=== PATIENT | female | born 1935 | race Caucasian/White ===

== ENCOUNTER 2017-08-20 06:52 | Inpatient (IN) | payer MEDICARE, OTHER ==
[2017-08-20 07:12] VITALS: BMI 29.6
[2017-08-20] MEDS ORDERED: methylPREDNISolone NA SUCC 125 MG/2 ML VIAL IVPUSH ONE (07:56)
[2017-08-20] MEDS: ALBUTEROL SO4 2.5/IPRATROPIUM 0.5 INH SOL 3 ML VIAL.NEB. NEB SCH ×4 (08:00→08:45)
[2017-08-20] MEDS ORDERED: methylPREDNISolone NA SUCC 125 MG/2 ML VIAL ONE (08:08)
[2017-08-20] MEDS ORDERED: ALBUTEROL SO4 2.5/IPRATROPIUM 0.5 INH SOL 3 ML VIAL.NEB. NEB ONE (08:08)
--- NOTE | 2017-08-20 08:17 | PDOC ---
History of Present Illness - General Chief Complaint: Pain, Acute Stated Complaint: ABD PAIN/URINARY PROBLEM Time Seen by Provider: 08/20/17 07:40 History Source: Patient, Family (daughter), Old Records Exam Limitations: No Limitations - History of Present Illness Initial Comments: 08/20/17 08:17 This is an 82-year-old woman with past medical history of hypertension, hyperlipidemia, CAD status post CABG 3, and NIDDM, CVA, CHF who presents to emergency department with 3 days of dysuria, body aches and moist nonproductive cough. Patient reports pleuritic chest pain while coughing and states increasing shortness of breath over the past 3 days. Patient denies headaches, dizziness, fevers, chills, sore throat, abdominal pain, nausea, vomiting, hematuria, rectal bleeding, vaginal bleeding, vaginal discharge. She denies any abdominal bloating, decrease in exercise tolerance, decrease in ability to walk up stairs or inclines or changes in weight. Past History - Past Medical History Allergies/Adverse Reactions: Allergies Allergy/AdvReac Type Severity Reaction Status Date / Time No Known Drug Allergies Allergy Verified 08/20/17 07:07 Home Medications: Ambulatory Orders Atorvastatin Ca [Lipitor] 20 mg PO HS 04/07/12 Calcium Carbonate/Vitamin D3 [Calcium 600-Vit D3 200 Tablet] 1 each PO DAILY 07/05 Multivitamin [Multivitamins] 1 each PO DAILY 04/07/12 Carvedilol [Coreg] 12.5 mg PO BID 11/08/12 Gabapentin [Neurontin -] 600 mg PO TID 11/08/12 Insulin Lispro [Humalog] 40 unit SQ BID 11/08/12 Ramipril [Altace] 5 mg PO DAILY 11/08/12 Ranolazine [Ranexa -] 500 mg PO BID 11/08/12 Timolol 0.5% [Timoptic] 1 drop OU BID 11/08/12 Nitroglycerin Sublingual [Nitrostat -] 0.4 mg SL PRN PRN 08/30/14 Omeprazole [Prilosec (RX)] 40 mg PO DAILY 08/30/14 Acetaminophen [Tylenol .Regular Strength -] 325 mg PO Q6H PRN #0 tablet Docusate Sodium [Colace -] 300 mg PO HS #0 capsule 09/01/14 Polyethylene Glycol 3350 [Miralax 119 gm Btl -] 17 gm PO BID #0 bottle 09/01/14 Furosemide [Lasix -] 20 mg PO DAILY 10/24/14 Levothyroxine [Synthroid -] 100 mcg PO DAILY@0700 10/24/14 Lipase/Protease/Amylase [Zacharyon Dr 36,000 Units Capsule] 1 each PO TID 10/24/14 Thera Iron Tab 1 tab PO DAILY 10/24/14 Anemia: No Asthma: No Cancer: No Cardiac Disorders: Yes CVA: Yes COPD: No CHF: Yes DVT: No Dementia: No Diabetes: Yes GI Disorders: Yes (Ulcers) Disorders: (ulcers) HTN: Yes Hypercholesterolemia: Yes Liver Disease: No Seizures: No Thyroid Disease: No - Surgical History Abdominal Surgery: No Appendectomy: No Cardiac Surgery: Yes (tripple bipass) Cholecystectomy: No Lung Surgery: No Neurologic Surgery: No Orthopedic Surgery: Yes (RT ELBOW SX) - Immunization History Immunization Up to Date: No - Suicide/Smoking/Psychosocial Hx Smoking Status: No Smoking History: Never smoked Have you smoked in the past 12 months: No Number of Cigarettes Smoked Daily: 0 Information on smoking cessation initiated: No Hx Alcohol Use: No Drug/Substance Use Hx: No Substance Use Type: None Hx Substance Use Treatment: No Respiratory Specific PMHX - Complaint Specific PMHX Angina: Yes Review of Systems - Review of Systems Able to Perform ROS?: Yes Is the patient limited British proficient: Yes Constitutional: No: Symptoms Reported HEENTM: No: Symptoms Reported Respiratory: Yes: See HPI Cardiac (ROS): No: Symptoms Reported ABD/GI: No: Symptoms Reported : Yes: See HPI Musculoskeletal: No: Symptoms Reported Integumentary: No: Symptoms Reported Neurological: No: Symptoms reported Endocrine: No: Symptoms Reported Hematologic/Lymphatic: No: Symptoms Reported *Physical Exam - Vital Signs Last Vital Signs Temp Pulse Resp BP Pulse Ox 98.1 F 71 22 148/68 94 L 08/20/17 07:07 08/20/17 07:07 08/20/17 07:07 08/20/17 07:07 08/20/17 07:07 - Physical Exam General Appearance: Yes: Appropriately Dressed. No: Apparent Distress HEENT: positive: Normal ENT Inspection Neck: positive: Trachea midline, Supple Respiratory/Chest: positive: Wheezing (Inspirational). negative: Chest Tender, Respiratory Distress, Accessory Muscle Use Cardiovascular: positive: Regular Rhythm, Regular Rate, S1, S2. negative: Murmur Gastrointestinal/Abdominal: positive: Normal Bowel Sounds, Soft. negative: Tender Musculoskeletal: positive: Normal Inspection. negative: CVA Tenderness Extremity: positive: Normal Capillary Refill, Normal Inspection Integumentary: positive: Normal Color, Dry, Warm Neurologic: positive: Fully Oriented, Alert, Normal Mood/Affect, Normal Response , Motor Strength 5/5 Heart Score/ECG Review - History History: Slightly suspicious - Electrocardiogram EKG: Non specific repolarization disturbance - Age Age: >/= 65 - Risk Factors Risk Factors Heart Score: Yes Hx Hypercholesterolemia, Yes Hx Hypertension, Yes Hx Diabetes Based on the list above the patient has:: >/=3 risk factors or Hx atherosclerotic disease - Troponin Troponin: </= normal limit - Score Heart Score - Total: 5 - ECG Intrepretation Rhythm: Regular Rhythm - ST and T Non Specific ST-T Wave changes: Yes - ECG Impressions Normal ECG: No Non-specific ST Elevation: No Ischemic Changes: No ED Treatment Course - LABORATORY CBC & Chemistry Diagram: 08/20/17 08:30 08/20/17 08:30 - RADIOLOGY Radiology Studies Ordered: Category Date Time Status CHEST PA & LAT [RAD] Stat Radiology 08/20/17 07:55 Ordered Medical Decision Making - Medical Decision Making 08/20/17 08:21 CC: 3 days of dysuria, productive cough and pleuritic chest pain A/P: 82-year-old female with history of hypertension, hyperlipidemia, CAD status post triple-vessel CABG, NIDDM, CVA, CHF with 3 days of dysuria productive cough and pleuritic chest pain. Oropharynx clear without erythema or exudates. Speaking full sentences. Respirations even and unlabored. Lungs with diffuse inspiratory wheezes present. RRR. S1 and S2 present. No murmur, rub or gallop auscultated. Obese abdomen soft nontender nondistended. Differential diagnoses include UTI; CHF exacerbation, bronchitis, upper respiratory infection, pneumonia, ACS, PE PE is less likely with a well score of 0 Cardiac monitoring, IV, labs, methylprednisone, DuoNeb's, EKG, chest x-ray 08/20/17 10:20 Chest x-ray as read by Dr. Plascencia: Since prior chest x-ray dated 10/11/14, clinic silhouette remains borderline sized to slightly enlarged. Increased interstitial and airspace opacities, left more than right suggestive of pulmonary venous congestion plus or minus pneumonic infiltrates. Status post CABG. Increased sediment visualized osseous structures appear intact. Impression: Interval increased interstitial and airspace opacities, left more than right suggestive of pulmonary venous congestion plus or minus pneumonia. Close follow-up as needed. Patient continues to feel short of breath. Labs are notable for elevated BNP and mildly elevated white count and Corrected sodium of 132. Lasix 40 mg IV push now Rocephin 1g IV Zithromax 500mg IV Will Admit to hospitalist service *DC/Admit/Observation/Transfer Diagnosis at time of Disposition: UTI (urinary tract infection) Qualifiers: Urinary tract infection type: site unspecified Hematuria presence: without hematuria Qualified Code(s): N39.0 - Urinary tract infection, site not specified CHF exacerbation Qualifiers: Heart failure type: unspecified Qualified Code(s): I50.9 - Heart failure, unspecified - Discharge Dispostion Condition at time of disposition: Guarded Admit: Yes - Referrals Referrals: Luz Kaur MD [Primary Care Provider] - - Patient Instructions - Post Discharge Activity
[2017-08-20 08:41] LABS: BASO % 0.7 % (0-2.0); EOS % 2.4 % (0-4.5); HEMATOCRIT 37.2 % (32.4-45.2); HEMOGLOBIN 12.4 GM/dL (10.7-15.3); LYMPH % 16.5 % (8-40); MCH 29.7 pg (25.7-33.7); MCHC 33.2 g/dl (32.0-36.0); MEAN CELL VOLUME 89.5 fl (80-96); MEAN PLT VOLUME 8.9 fl (7.5-11.1); MONO % 9.8 % (3.8-10.2); NEUT % 70.6 % (42.8-82.8); PLATELET COUNT 234 K/MM3 (134-434); RBC 4.16 M/mm3 (3.60-5.2); RDW 14.1 % (11.6-15.6); WHITE BLOOD COUNT 13.5 K/mm3 (4.0-10.0)
[2017-08-20 08:52] LABS: INR 1.03 (0.82-1.09); PROTHROMBIN TIME (PATIENT) 11.6 SEC (9.98-11.88)
[2017-08-20 09:14] LABS: ALBUMIN 3.6 g/dl (3.4-5.0); ANION GAP 7 (8-16); BILIRUBIN,TOTAL 0.5 mg/dL (0.2-1.0); BLOOD UREA NITROGEN 21 mg/dL (7-18); CALCIUM 8.6 mg/dL (8.5-10.1); CHLORIDE 94 mmol/L (98-107); CO2 26 mmol/L (21-32); CREATININE 1.1 mg/dL (0.55-1.02); GLUCOSE,RANDOM 295 mg/dL (74-106); SGPT/ALT 19 U/L (12-78); SODIUM 127 mmol/L (136-145)
[2017-08-20 09:18] LABS: ALK PHOS 160 U/L (45-117); N-TERMINAL BNP 3042.66 pg/ml (5-450); TOT PROT 7.9 g/dl (6.4-8.2)
[2017-08-20 09:24] LABS: MAGNESIUM 2.2 mg/dL (1.8-2.4); SGOT/AST 20 U/L (15-37)
[2017-08-20 09:40] LABS: URINE APPEARANCE SLCLOUDY; URINE BILIRUBIN NEGATIVE (<2.0 mg/dL); URINE BLOOD 3+ (NEGATIVE); URINE COLOR STRAW; URINE GLUCOSE (UA) 3+ (NEGATIVE); URINE KETONE NEGATIVE (NEGATIVE); URINE NITRITE NEGATIVE (NEGATIVE); URINE PROTEIN NEGATIVE (NEGATIVE); URINE UROBILINOGEN NEGATIVE mg/dL (0.2-1.0)
--- NOTE | 2017-08-20 09:52 | EKG ---
Test Reason : Blood Pressure : / mmHG Vent. Rate : 078 BPM Atrial Rate : 078 BPM P-R Int : 170 ms QRS Dur : 090 ms QT Int : 400 ms P-R-T Axes : 061 050 104 degrees QTc Int : 456 ms NORMAL SINUS RHYTHM ABNORMAL ECG WHEN COMPARED WITH ECG OF 27-SEP-2014 21:13, VENT. RATE HAS INCREASED BY 26 BPM Confirmed by MARIVEL LOPEZ MD ([id number]) on 08/20/2017 9:52:06 AM Referred By: Confirmed By:MARIVEL LOPEZ MD
[2017-08-20] MEDS ORDERED: FUROSEMIDE 40 MG/4 ML INJECTABLE VIAL IVPUSH ONE (10:06)
[2017-08-20] MEDS ORDERED: AZITHROMYCIN IVPB 500 MG in DEXTROSE 5%-WATER - 250 ML IVPB ONE (10:08)
[2017-08-20] MEDS ORDERED: CEFTRIAXONE 1 GM in DEXTROSE 5%-WATER - 100 ML IVPB ONE (10:08)
[2017-08-20] MEDS ORDERED: AZITHROMYCIN IVPB 250 ML IVPB ONE (10:24)
[2017-08-20] MEDS ORDERED: CEFTRIAXONE 1 GM/50 ML BAG ONE (10:24)
[2017-08-20 10:25] LABS: URINE LEUK ESTERASE 3+ (NEGATIVE)
[2017-08-20] MEDS ORDERED: FUROSEMIDE 40 MG/4 ML INJECTABLE VIAL ONE (10:25)
[2017-08-20 10:30] LABS: EPI CELLS RARE /HPF (FEW); URINE BACTERIA MODERATE /hpf (NONE SEEN)
--- NOTE | 2017-08-20 10:35 | HP ---
CHIEF COMPLAINT: Dysuria PCP: Dr. Diaz HISTORY OF PRESENT ILLNESS: 82 year-old female with a PMH significant for HTN, HLD, CAD s/p CABG x 3 (2004) , systolic heart failure, CVA, IDDM, diabetic polyneuropathy, and hypothyroidism. Brought to the ED by her daughter for complaint of dysuria, body aches, cough and cold sweats x 3 days. Also with worsening of her chronic SOB and fatigue. ER course was notable for: (1) WBC 13.5, afebrile (2) CXR: interstitial and airspace opacities L>R, venous congestion v. pneumonia (3) UA 3+leuks, 277 WBCs (4) BNP 3042 (5) Na 127 Recent Travel: No PAST MEDICAL HISTORY: Hypertension Hyperlipidemia Coronary artery disease Systolic heart failure CVA IDDM Diabetic polyneuropathy Hypothyroidism PAST SURGICAL HISTORY: CABG 3v (2004) Social History: Smoking: no Alcohol: no Drugs: no Family History: Allergies No Known Drug Allergies Allergy (Verified 08/20/17 07:07) HOME MEDICATIONS: Home Medications Medication Instructions Recorded Atorvastatin Ca [Lipitor] 20 mg PO HS 04/07/12 Calcium Carbonate/Vitamin D3 1 each PO DAILY 04/07/12 [Calcium 600-Vit D3 200 Tablet] Multivitamin [Multivitamins] 1 each PO DAILY 04/07/12 Carvedilol [Coreg] 12.5 mg PO BID 11/08/12 Gabapentin [Neurontin -] 600 mg PO TID 11/08/12 Insulin Lispro [Humalog] 40 unit SQ BID 11/08/12 Ramipril [Altace] 5 mg PO DAILY 11/08/12 Ranolazine [Ranexa -] 500 mg PO BID 11/08/12 Timolol 0.5% [Timoptic] 1 drop OU BID 11/08/12 Nitroglycerin Sublingual 0.4 mg SL PRN PRN 08/30/14 [Nitrostat -] Omeprazole [Prilosec (RX)] 40 mg PO DAILY 08/30/14 Acetaminophen [Tylenol .Regular 325 mg PO Q6H PRN #0 tablet 09/01/14 Strength -] Docusate Sodium [Colace -] 300 mg PO HS #0 capsule 09/01/14 Polyethylene Glycol 3350 [Miralax 17 gm PO BID #0 bottle 09/01/14 119 gm Btl -] Furosemide [Lasix -] 20 mg PO DAILY 10/24/14 Levothyroxine [Synthroid -] 100 mcg PO DAILY@0700 10/24/14 Lipase/Protease/Amylase [Creon Dr 1 each PO TID 10/24/14 36,000 Units Capsule] Thera Iron Tab 1 tab PO DAILY 10/24/14 REVIEW OF SYSTEMS CONSTITUTIONAL: +chills, generalized weakness Absent: fever, chills, diaphoresis, generalized weakness, malaise, loss of appetite, weight change HEENT: Absent: rhinorrhea, nasal congestion, throat pain, throat swelling, difficulty swallowing, mouth swelling, ear pain, eye pain, visual changes CARDIOVASCULAR: Absent: chest pain, syncope, palpitations, irregular heart rate, lightheadedness , peripheral edema RESPIRATORY: +cough, SOB, pleuritic-type chest pain Absent: cough, shortness of breath, dyspnea with exertion, orthopnea, wheezing, stridor, hemoptysis GASTROINTESTINAL: Absent: abdominal pain, abdominal distension, nausea, vomiting, diarrhea, constipation, melena, hematochezia GENITOURINARY: +dysuria Absent: dysuria, frequency, urgency, hesitancy, hematuria, flank pain, genital pain MUSCULOSKELETAL: +body aches Absent: myalgia, arthralgia, joint swelling, back pain, neck pain SKIN: Absent: rash, itching, pallor HEMATOLOGIC/IMMUNOLOGIC: Absent: easy bleeding, easy bruising, lymphadenopathy, frequent infections ENDOCRINE: Absent: unexplained weight gain, unexplained weight loss, heat intolerance, cold intolerance NEUROLOGIC: Absent: headache, focal weakness or paresthesias, dizziness, unsteady gait, seizure, mental status changes, bladder or bowel incontinence PSYCHIATRIC: Absent: anxiety, depression, suicidal or homicidal ideation, hallucinations. PHYSICAL EXAMINATION Vital Signs - 24 hr 08/20/17 07:07 Temperature 98.1 F Pulse Rate 71 Respiratory 22 Rate Blood Pressure 148/68 O2 Sat by Pulse 94 L Oximetry (%) GENERAL: Awake, alert, and fully oriented, in no acute distress. HEAD: Normal with no signs of trauma. EYES: Pupils equal, round and reactive to light, extraocular movements intact, sclera anicteric, conjunctiva clear. No lid lag. EARS, NOSE, THROAT: Ears normal, nares patent, oropharynx clear without exudates. Moist mucous membranes. NECK: Normal range of motion, supple without lymphadenopathy, JVD, or masses. LUNGS: Mild expiratory wheezing b/l upper lobes; bibasilar crackles HEART: Regular rate and rhythm, normal S1 and S2 ABDOMEN: Soft, diffusely tender, not distended, normoactive bowel sounds, no guarding, no rebound MUSCULOSKELETAL: Normal range of motion at all joints. No bony deformities or tenderness. No CVA tenderness. UPPER EXTREMITIES: 2+ pulses, warm, well-perfused. No cyanosis. No clubbing. No peripheral edema. LOWER EXTREMITIES: 2+ pulses, warm, well-perfused. No calf tenderness. No peripheral edema. NEUROLOGICAL: Cranial nerves II-XII intact. Normal speech. Laboratory Results - last 24 hr 08/20/17 08/20/17 08/20/17 08:30 08:30 08:30 WBC 13.5 H D RBC 4.16 Hgb 12.4 Hct 37.2 MCV 89.5 MCH 29.7 MCHC 33.2 RDW 14.1 Plt Count 234 MPV 8.9 Neutrophils % 70.6 D Lymphocytes % 16.5 D Monocytes % 9.8 Eosinophils % 2.4 Basophils % 0.7 PT with INR 11.60 INR 1.03 Sodium 127 L Potassium 5.0 Chloride 94 L Carbon Dioxide 26 Anion Gap 7 L BUN 21 H Creatinine 1.1 H Creat Clearance w eGFR 47.55 Random Glucose 295 H Calcium 8.6 Magnesium 2.2 Total Bilirubin 0.5 D AST 20 ALT 19 Alkaline Phosphatase 160 H Creatine Kinase 106 Troponin I < 0.02 B-Natriuretic Peptide 3042.66 H Total Protein 7.9 Albumin 3.6 Urine Color Urine Appearance Urine pH Ur Specific [place] Urine Protein Urine Glucose (UA) Urine Ketones Urine Blood Urine Nitrite Urine Bilirubin Urine Urobilinogen Ur Leukocyte Esterase Stool Occult Blood 08/20/17 08/20/17 09:30 09:37 WBC RBC Hgb Hct MCV MCH MCHC RDW Plt Count MPV Neutrophils % Lymphocytes % Monocytes % Eosinophils % Basophils % PT with INR INR Sodium Potassium Chloride Carbon Dioxide Anion Gap BUN Creatinine Creat Clearance w eGFR Random Glucose Calcium Magnesium Total Bilirubin AST ALT Alkaline Phosphatase Creatine Kinase Troponin I B-Natriuretic Peptide Total Protein Albumin Urine Color Straw Urine Appearance Slcloudy Urine pH 6.0 Ur Specific [place] 1.003 Urine Protein Negative Urine Glucose (UA) 3+ H Urine Ketones Negative Urine Blood 3+ H Urine Nitrite Negative Urine Bilirubin Negative Urine Urobilinogen Negative Ur Leukocyte Esterase 3+ H Stool Occult Blood Negative ASSESSMENT/PLAN 82 year-old female with a PMH significant for HTN, HLD, CAD s/p CABG x 3 (2004) , systolic heart failure, CVA, IDDM, diabetic polyneuropathy, and hypothyroidism. Admitted acute on chronic systolic heart failure, pneumonia, and UTI. Acute on chronic systolic heart failure --last available echo from 2011: LV moderately reduced with hypokinetic motion abnormalities; RV normal; LAE; mild TR; mild pHTN --congestive changes on CXR --BNP 3042 --repeat echo ordered --Lasix PRN Pneumonia --possible infiltrates on CXR, WBC 13.5, subjective fever --continue ceftriaxone and azithromycin --blood culture pending UTI --continue ceftriaxone --urine culture pending Hyponatremia --Na 127 --Lasix IV 40mg x 1 given in ED --repeat Na pending Hypertension --continue carvedilol, ramipril Hyperlipidemia --continue Lipitor Coronary artery disease h/o CVA --continue ASA, Lipitor, carvedilol, Ranexa IDDM Diabetic polyneuropathy --Novolog sliding scale coverage --continue Gabapentin Hypothyroidism --continue levothyroxine FEN Fluids: PO intake adequate Electrolytes: replete as indicated Nutrition: low sodium, diabetic DVT prophylaxis: subq heparin Physical therapy Dispo: continues to require inpatient care. Full code. Visit type - Emergency Visit Emergency Visit: Yes ED Registration Date: 08/20/17 Care time: The patient presented to the Emergency Department on the above date and was hospitalized for further evaluation of their emergent condition. - New Patient This patient is new to me today: Yes Date on this admission: 08/20/17 - Critical Care Critical Care patient: No Hospitalist Screening - Colonoscopy Questionnaire Colonoscopy Questionnaire: Colonoscopy Questionnaire - Patient: 50 - 75 years old and never had a screening colonoscopy: No History of colon or rectal polyps, or CA: No History of IBD, Crohn's disease or UC: No History of abdominal radiation therapy as a child: No - Relative: 1 with colon or rectal CA, or polyps at age 60 or younger: Unknown Colon or rectal CA diagnosed at age 45 or younger: Unknown Multiple relatives with colon or rectal CA: Unknown - Outcome: Screening Result: Negative Screen
[2017-08-20] MEDS ORDERED: ASPIRIN 325 MG TABLET PO ONE (10:41)
[2017-08-20] MEDS ORDERED: ASPIRIN 325 MG TABLET ONE (13:19)
--- NOTE | 2017-08-20 16:11 | PDOC ---
*Physical Exam - Vital Signs Last Vital Signs Temp Pulse Resp BP Pulse Ox 98.2 F 84 20 155/92 95 08/20/17 15:59 08/20/17 15:59 08/20/17 15:59 08/20/17 15:59 08/20/17 15:59 - Physical Exam General Appearance: Yes: Nourished HEENT: positive: Normal ENT Inspection Neck: positive: Trachea midline Respiratory/Chest: positive: Rales, Other (crackles at bilat bases, faint wheezes.) Cardiovascular: positive: Regular Rate, S1, S2. negative: Edema Gastrointestinal/Abdominal: positive: Normal Bowel Sounds, Flat, Soft. negative : Tender Musculoskeletal: positive: Normal Inspection. negative: CVA Tenderness Integumentary: positive: Normal Color, Dry, Warm Neurologic: positive: Fully Oriented, Alert, Normal Mood/Affect ED Treatment Course - LABORATORY CBC & Chemistry Diagram: 08/20/17 08:30 08/20/17 08:30 - ADDITIONAL ORDERS Additional order review: Laboratory Results 08/20/17 08/20/17 08/20/17 09:37 09:30 08:30 PT with INR INR Sodium 127 L Potassium 5.0 Chloride 94 L Carbon Dioxide 26 Anion Gap 7 L BUN 21 H Creatinine 1.1 H Creat Clearance w eGFR 47.55 Random Glucose 295 H Calcium 8.6 Magnesium 2.2 Total Bilirubin 0.5 D AST 20 ALT 19 Alkaline Phosphatase 160 H Creatine Kinase 106 Troponin I < 0.02 B-Natriuretic Peptide 3042.66 H Total Protein 7.9 Albumin 3.6 Urine Color Straw Urine Appearance Slcloudy Urine pH 6.0 Ur Specific [place] 1.003 Urine Protein Negative Urine Glucose (UA) 3+ H Urine Ketones Negative Urine Blood 3+ H Urine Nitrite Negative Urine Bilirubin Negative Urine Urobilinogen Negative Ur Leukocyte Esterase 3+ H Urine WBC (Auto) 277 Urine RBC (Auto) 1 Ur Epithelial Cells Rare Urine Bacteria Moderate Stool Occult Blood Negative 08/20/17 08:30 PT with INR 11.60 INR 1.03 Sodium Potassium Chloride Carbon Dioxide Anion Gap BUN Creatinine Creat Clearance w eGFR Random Glucose Calcium Magnesium Total Bilirubin AST ALT Alkaline Phosphatase Creatine Kinase Troponin I B-Natriuretic Peptide Total Protein Albumin Urine Color Urine Appearance Urine pH Ur Specific [place] Urine Protein Urine Glucose (UA) Urine Ketones Urine Blood Urine Nitrite Urine Bilirubin Urine Urobilinogen Ur Leukocyte Esterase Urine WBC (Auto) Urine RBC (Auto) Ur Epithelial Cells Urine Bacteria Stool Occult Blood 08/20/17 08:30 RBC 4.16 MCV 89.5 MCHC 33.2 RDW 14.1 MPV 8.9 Neutrophils % 70.6 D Lymphocytes % 16.5 D Monocytes % 9.8 Eosinophils % 2.4 Basophils % 0.7 - Medications Given in the ED: ED Medications Discontinued Medications Generic Name Dose Route Start Last Admin Trade Name Charleen PRN Reason Stop Dose Admin Albuterol/Ipratropium 1 amp 08/20/17 08:00 08/20/17 08:45 Duoneb - NEB 08/20/17 08:46 1 amp Q15M PALOMA Administration Aspirin 325 mg 08/20/17 10:41 08/20/17 13:00 Asa - PO 08/20/17 10:42 325 mg ONCE ONE Administration Furosemide 40 mg 08/20/17 10:06 08/20/17 10:40 Lasix Injection - IVPUSH 08/20/17 10:07 40 mg ONCE ONE Administration Azithromycin 500 mg/ Dextrose 250 mls @ 250 mls/hr 08/20/17 10:08 08/20/17 13 :09 IVPB 08/20/17 11:07 250 mls/hr ONCE ONE Administration Ceftriaxone Sodium 1 gm/ 100 mls @ 200 mls/hr 08/20/17 10:08 08/20/17 10:50 Dextrose IVPB 08/20/17 10:37 200 mls/hr ONCE ONE Administration Methylprednisolone Sodium Succinate 125 mg 08/20/17 07:56 08/20/17 08:05 Solu-Medrol - IVPUSH 08/20/17 07:57 125 mg ONCE ONE Administration Medical Decision Making - Medical Decision Making 08/20/17 16:08 82 yo F with h/o HTN, HLD, CAD, DM CVA CHF here with c/o cough, dyspnea and dysuria. also c/o epigastric abd pain. feels sob is worse wtih exertion and lying flat. non productive. no feveer. no n/v did not take her insulin this am. no leg swelling. no other complaints. differential uti chf pna, effusion, mi, plan ekg labs cxr trop ua urine cultures , nebs. possible diuresis as needed. seen in conjunction with John Nath, agree with assessment and plan. *DC/Admit/Observation/Transfer Diagnosis at time of Disposition: UTI (urinary tract infection) Qualifiers: Urinary tract infection type: site unspecified Hematuria presence: without hematuria Qualified Code(s): N39.0 - Urinary tract infection, site not specified CHF exacerbation Qualifiers: Heart failure type: unspecified Qualified Code(s): I50.9 - Heart failure, unspecified - Discharge Dispostion Condition at time of disposition: Guarded - Referrals - Patient Instructions - Post Discharge Activity
[2017-08-20] MEDS ORDERED: ACETAMINOPHEN 325 MG TABLET (FP) PO PRN (20:45)
[2017-08-20] MEDS: GABAPENTIN 300 MG CAPSULE (FP) PO SCH (21:41)
[2017-08-20] MEDS: CARVEDILOL 12.5 MG TABLET (FP) PO SCH (21:41)
[2017-08-20] MEDS: RANOLAZINE E.R. 500 MG TABLET (FP) PO SCH (21:41)
[2017-08-20] MEDS: ATORVASTATIN CA 40 MG TABLET (FP) PO SCH (21:41)
[2017-08-20] MEDS: HEPARIN NA (PORCINE) 5,000 UNITS/ML 1ML VIAL SQ SCH (21:42)
[2017-08-20 23:13] LABS: ANION GAP 17 (8-16); BLOOD UREA NITROGEN 29 mg/dL (7-18); CALCIUM 9.1 mg/dL (8.5-10.1); CHLORIDE 86 mmol/L (98-107); CO2 25 mmol/L (21-32); CREATININE 1.5 mg/dL (0.55-1.02); POTASSIUM 4.8 mmol/L (3.5-5.1); SODIUM 128 mmol/L (136-145)
[2017-08-20 23:18] LABS: GLUCOSE,RANDOM 606 mg/dL (74-106)
[2017-08-20] MEDS ORDERED: INSULIN (NOVOLOG) ASPART 100 UNITS/ML 10ML VIAL SQ ONE (23:45)
[2017-08-21] MEDS ORDERED: INSULIN (NOVOLOG) ASPART 100 UNITS/ML 10ML VIAL SQ ONE ×2 (06:16→12:30)
[2017-08-21] MEDS: HEPARIN NA (PORCINE) 5,000 UNITS/ML 1ML VIAL SQ SCH ×3 (06:21→22:04)
[2017-08-21] MEDS: LEVOTHYROXINE NA 88 MCG TABLET (FP) PO SCH (06:22)
[2017-08-21] MEDS: GABAPENTIN 300 MG CAPSULE (FP) PO SCH ×3 (06:22→22:04)
[2017-08-21] MEDS: guaiFENesin/D-METHORPHAN HB 10 ML UNIT-DOSE CUPS PO PRN ×2 (06:23→13:15)
[2017-08-21] MEDS: INSULIN SLIDING SCALE (NOVOLOG) 1 VIAL SQ SCH ×4 (08:41→22:05)
[2017-08-21] MEDS: INSULIN (NOVOLOG MIX 70/30) 100 UNITS/ML MDV SQ SCH ×3 (09:05→23:28)
[2017-08-21] MEDS: CEFTRIAXONE 1 G/50 ML PREMIX 50 ML IVPB SCH (10:00)
[2017-08-21] MEDS ORDERED: RAMIPRIL 2.5 MG CAPSULE (FP) PO SCH (10:00)
[2017-08-21] MEDS ORDERED: PT OWN MED DRAWER 7, Y5N ONE (10:49)
[2017-08-21] MEDS: POLYETHYLENE GLYCOL 3350 119 GM BTL PO SCH (10:51)
[2017-08-21] MEDS: RANOLAZINE E.R. 500 MG TABLET (FP) PO SCH ×3 (10:51→22:39)
[2017-08-21] MEDS: ASPIRIN 81 MG CHEWABLE TABLETS PO SCH (10:51)
[2017-08-21] MEDS: CARVEDILOL 12.5 MG TABLET (FP) PO SCH ×3 (10:52→22:41)
[2017-08-21] MEDS: PANTOPRAZOLE 20 MG TABLET (FP) PO SCH (10:52)
[2017-08-21] MEDS ORDERED: INSULIN (NOVOLOG) ASPART 100 UNITS/ML 10ML VIAL ONE (12:01)
[2017-08-21] MEDS: AZITHROMYCIN IVPB 250 MG in DEXTROSE 5%-WATER - 250 ML IVPB SCH (14:00)
--- NOTE | 2017-08-21 16:47 | PN ---
Physical Exam: SUBJECTIVE: Patient seen and examined. She says she has a lot of cough. OBJECTIVE: Vital Signs Period Temp Pulse Resp BP Sys/Ibarra Pulse Ox Last 24 Hr 97.9 F-98.9 F 69-85 19-21 92-134/54-85 94 Pe Neuro: alert, awake, cn 2-12intact Pulm: diminished, rhonchi wheeze +cough +NC CV: s1 s2 rrr Abd: s nt nd + bs ext: warm trace le edema Laboratory Results - last 24 hr 08/20/17 08/21/17 22:00 11:14 Sodium 128 L Potassium 4.8 Chloride 86 L Carbon Dioxide 25 Anion Gap 17 H BUN 29 H Creatinine 1.5 H POC Glucometer 548 Random Glucose 606 H* Calcium 9.1 Active Medications Generic Name Dose Route Start Last Admin Trade Name Freq PRN Reason Stop Dose Admin Acetaminophen 650 mg 08/20/17 20:45 08/20/17 21:41 Tylenol - PO 650 mg Q6H PRN Administration FEVER Aspirin 81 mg 08/21/17 10:00 08/21/17 10:51 Asa - PO 81 mg DAILY PALOMA Administration Atorvastatin Calcium 40 mg 08/20/17 22:00 08/20/17 21:41 Lipitor - PO 40 mg HS PALOMA Administration Carvedilol 12.5 mg 08/20/17 22:00 08/21/17 10:52 Coreg - PO Not Given BID PALOMA Gabapentin 600 mg 08/20/17 22:00 08/21/17 14:00 Neurontin - PO 600 mg TID PALOMA Administration Guaifenesin 10 ml 08/20/17 18:06 08/21/17 13:15 Robitussin Dm - PO 10 ml Q4H PRN Administration COUGH Heparin Sodium (Porcine) 5,000 unit 08/20/17 22:00 08/21/17 14:00 Heparin - SQ 5,000 unit TID PALOMA Administration Azithromycin 250 mg/ Dextrose 250 mls @ 250 mls/hr 08/21/17 10:00 08/21/17 14 :00 IVPB 250 mls/hr DAILY PALOMA Administration CEFTRIAXONE 1 G/50 ML PREMIX 50 mls @ 100 mls/hr 08/21/17 10:00 08/21/17 10: 00 Ceftriaxone 1 Gm-D5w Bag IVPB 100 mls/hr DAILY PALOMA Administration Insulin Aspart 1 vial 08/21/17 07:00 08/21/17 12:15 Novolog Vial Sliding Scale - SQ 15 units ACHS PALOMA Administration Protocol Insulin Aspart 22 units 08/21/17 07:00 08/21/17 09:05 Novolog Mix 70/30 Vial SQ 22 units BIDAC PALOMA Administration Levothyroxine Sodium 88 mcg 08/21/17 07:00 08/21/17 06:22 Synthroid - PO 88 mcg AM PALOMA Administration Non-Formulary Medication 85 gm 08/20/17 22:00 Econazole Nitrate 1% [Spectazole 1%] TP BID PALOMA Pantoprazole Sodium 20 mg 08/21/17 10:00 08/21/17 10:52 Protonix - PO 20 mg DAILY PALOMA Administration Polyethylene Glycol 17 gm 08/21/17 10:00 08/21/17 10:51 Miralax (For Daily Use) - PO 17 grams DAILY PALOMA Administration Ramipril 2.5 mg 08/21/17 10:00 08/21/17 10:52 Altace - PO Not Given DAILY PALOMA Ranolazine 500 mg 08/20/17 22:00 08/21/17 10:51 Ranexa - PO Not Given BID PALOMA Imaging: ECHO 2011: LV moderately reduced with hypokinetic motion abnormalities; RV normal; LAE; mild TR; mild pHTN Assessment: 82 year old female with a PMH significant for HTN, HLD, CAD s/p CABG x 3 (2004), systolic heart failure, CVA, IDDM, diabetic polyneuropathy, and hypothyroidism admitted with acute on chronic systolic heart failure, pneumonia, and UTI. Plan: 1. Acute on chronic systolic HF vs PNA - Lasix PRN d/t hyponatremia and haroldo - Stable on NC 2. Hyponatremia - Repeat BMP now, last night corrected 140 - De dose lasix pending labs 3. PNA - Continue azithromycin and ceftriaxone (day 2) - Blood, urine, legionella, flu negative - Robutussin 4. HAROLDO - Hold PRATIBHA - Caution with fluids - Renal consulted 5. CAD s/p CABG, hx CVA - Carvedilol 12.5mg BID - ASA - Lipitor - PRATIBHA on hold - Ranexa 6. UTI - Urine cx negative - On ceftriaxone for pna 7. HTN - BB, hold pratibha 8. HLD - Lipitor 9. IDDM - Resume home insulin regimen - ISS BGM ACHS 10. Diabetic polyneuropathy - Continue Gabapentin 600 TID 11. Hypothyroidism - Check TSH - Continue levothyroxine 12. DVT PPX - Subq heparin Physical therapy Dispo: continues to require inpatient care. Full code. Visit type - Emergency Visit Emergency Visit: Yes ED Registration Date: 08/20/17 Care time: The patient presented to the Emergency Department on the above date and was hospitalized for further evaluation of their emergent condition. - New Patient This patient is new to me today: Yes Date on this admission: 08/21/17 - Critical Care Critical Care patient: No
[2017-08-21] MEDS ORDERED: INSULIN (NOVOLOG MIX 70/30) 100 UNITS/ML MDV SQ ONE (18:21)
[2017-08-21] MEDS: ALBUTEROL SO4 0.083% IH SOL 2.5 MG/3 ML VIAL.NEB. NEB SCH ×2 (18:23→21:45)
[2017-08-21 19:15] LABS: BASO % 0.2 % (0-2.0); HEMATOCRIT 34.4 % (32.4-45.2); HEMOGLOBIN 11.5 GM/dL (10.7-15.3); LYMPH % 9.7 % (8-40); MCH 30.6 pg (25.7-33.7); MCHC 33.5 g/dl (32.0-36.0); MEAN CELL VOLUME 91.4 fl (80-96); MEAN PLT VOLUME 9.7 fl (7.5-11.1); MONO % 6.7 % (3.8-10.2); NEUT % 83.4 % (42.8-82.8); PLATELET COUNT 248 K/MM3 (134-434); RBC 3.77 M/mm3 (3.60-5.2); RDW 14.1 % (11.6-15.6); WHITE BLOOD COUNT 17.4 K/mm3 (4.0-10.0)
[2017-08-21 19:24] LABS: ANION GAP 7 (8-16); BLOOD UREA NITROGEN 48 mg/dL (7-18); CALCIUM 8.9 mg/dL (8.5-10.1); CHLORIDE 90 mmol/L (98-107); CO2 29 mmol/L (21-32); CREATININE 1.6 mg/dL (0.55-1.02); SODIUM 126 mmol/L (136-145)
[2017-08-21 19:26] LABS: GLUCOSE,RANDOM 415 mg/dL (74-106)
--- NOTE | 2017-08-21 21:54 | CONSULT ---
Consult Consult Specialty:: Nephrology Reason for Consultation:: HAROLDO and hyponatremia - History of Present Illness Chief Complaint: dysuria and cough History of Present Illness: Pt is an 82 year old female with pmhx of DM, HTN, HLD, CAD, CABG, CVA and CHF who presents to the ER with dysuria and body aches. She also complains of cough. She was found to be hyponatremic and in renal failure. Her blood sugars have not been controlled. She denies fevers or chills. She complains of generalized malaise. She does feel shortness of breath. 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) Endocrine: Yes: Diabetes Mellitus, Hypothyroidism - Alcohol/Substance Use Hx Alcohol Use: No - Smoking History Smoking history: Never smoked Have you smoked in the past 12 months: No Aproximately how many cigarettes per day: 0 Home Medications - Allergies Allergies/Adverse Reactions: Allergies Allergy/AdvReac Type Severity Reaction Status Date / Time No Known Drug Allergies Allergy Verified 08/20/17 07:07 - Home Medications Home Medications: Ambulatory Orders Acetaminophen [Tylenol -] 500 mg PO BID 08/20/17 Aspirin [ASA -] 81 mg PO DAILY 08/20/17 Atorvastatin Ca [Lipitor] 40 mg PO HS 08/20/17 Atorvastatin Ca [Lipitor] 40 mg PO HS 08/20/17 Carvedilol [Coreg -] 12.5 mg PO BID 08/20/17 Carvedilol [Coreg -] 12.5 mg PO BID 08/20/17 Gabapentin [Neurontin] 600 mg PO TID 08/20/17 Guaifenesin Dm [Robitussin Dm -] 10 ml PO Q4H PRN 08/20/17 Insulin Aspart Prot/Insuln Asp [Novolog Mix 70-30 Flexpen Syrn] 40 unit SQ BID 08/20/17 Levothyroxine [Synthroid -] 88 mcg PO DAILY 08/20/17 Omeprazole 20 mg PO DAILY 08/20/17 Polyethylene Glycol 3350 [Miralax (For Daily Use) -] 17 gm PO DAILY 08/20/17 Ramipril 2.5 mg PO DAILY 08/20/17 Ranolazine [Ranexa] 500 mg PO BID 08/20/17 Review of Systems - Review of Systems Constitutional: reports: Malaise Eyes: reports: No Symptoms HENT: reports: No Symptoms Neck: reports: No Symptoms Cardiovascular: reports: Chest Pain, Shortness of Breath Respiratory: reports: Cough, SOB on Exertion Genitourinary: reports: Dysuria Musculoskeletal: reports: No Symptoms Neurological: reports: No Symptoms Endocrine: reports: No Symptoms Hematology/Lymphatic: reports: No Symptoms Psychiatric: reports: No Symptoms Physical Exam Vital Signs: Vital Signs Temperature 98.2 F 08/21/17 18:44 Pulse Rate 69 08/21/17 18:44 Respiratory Rate 20 08/21/17 18:44 Blood Pressure 114/56 08/21/17 18:44 O2 Sat by Pulse Oximetry (%) 95 08/21/17 09:00 Constitutional: Yes: Calm Eyes: Yes: Conjunctiva Clear HENT: Yes: Atraumatic Neck: Yes: Supple Cardiovascular: Yes: S1, S2 Respiratory: Yes: On Nasal O2, Wheezes Gastrointestinal: Yes: Soft, Abdomen, Obese Musculoskeletal: Yes: WNL Edema: Yes Edema: LLE: Trace, RLE: Trace Neurological: Yes: Oriented Psychiatric: Yes: Oriented Labs: CBC, BMP 08/21/17 17:30 08/21/17 17:30 Laboratory Tests 08/20/17 08/20/17 08/20/17 08:30 08:30 09:30 WBC 13.5 H D Hgb Plt Count Sodium 127 L Potassium Random Glucose 295 H B-Natriuretic Peptide 3042.66 H Urine Protein Negative Urine Glucose (UA) 3+ H Urine Blood 3+ H 08/20/17 08/21/17 08/21/17 22:00 17:30 17:30 WBC 17.4 H Hgb 11.5 Plt Count 248 Sodium 128 L 126 L Potassium 5.0 Random Glucose 606 H* 415 H* B-Natriuretic Peptide Urine Protein Urine Glucose (UA) Urine Blood Imaging - Results Chest X-ray: Report Reviewed Problem List - Problems (1) UTI (urinary tract infection) Code(s): N39.0 - URINARY TRACT INFECTION, SITE NOT SPECIFIED Qualifiers: Urinary tract infection type: site unspecified Hematuria presence: without hematuria Qualified Code(s): N39.0 - Urinary tract infection, site not specified (2) Hyponatremia Code(s): E87.1 - HYPO-OSMOLALITY AND HYPONATREMIA Assessment/Plan Current Medications Generic Name Dose Route Start Last Admin Trade Name Freq PRN Reason Stop Dose Admin Acetaminophen 650 mg 08/20/17 20:45 08/20/17 21:41 Tylenol - PO 650 mg Q6H PRN Administration FEVER Albuterol Sulfate 1 amp 08/21/17 18:30 08/21/17 18:23 Ventolin 0.083% Nebulizer Soln - NEB 1 amp RQID PALOMA Administration Aspirin 81 mg 08/21/17 10:00 08/21/17 10:51 Asa - PO 81 mg DAILY PALOMA Administration Atorvastatin Calcium 40 mg 08/20/17 22:00 08/20/17 21:41 Lipitor - PO 40 mg HS PALOMA Administration Carvedilol 12.5 mg 08/20/17 22:00 08/21/17 10:52 Coreg - PO Not Given BID PALOMA Gabapentin 600 mg 08/20/17 22:00 08/21/17 14:00 Neurontin - PO 600 mg TID PALOMA Administration Guaifenesin 10 ml 08/21/17 22:00 Robitussin Dm - PO Q4H PALOMA Heparin Sodium (Porcine) 5,000 unit 08/20/17 22:00 08/21/17 14:00 Heparin - SQ 5,000 unit TID PALOMA Administration Azithromycin 250 mg/ Dextrose 250 mls @ 250 mls/hr 08/21/17 10:00 08/21/17 14 :00 IVPB 250 mls/hr DAILY PALOMA Administration CEFTRIAXONE 1 G/50 ML PREMIX 50 mls @ 100 mls/hr 08/21/17 10:00 08/21/17 10: 00 Ceftriaxone 1 Gm-D5w Bag IVPB 100 mls/hr DAILY PALOMA Administration Insulin Aspart 40 units 08/21/17 22:00 Novolog Mix 70/30 Vial SQ BID PALOMA Insulin Aspart 1 vial 08/21/17 17:12 Novolog Vial Sliding Scale - SQ ACHS [facility] Protocol Levothyroxine Sodium 88 mcg 08/21/17 07:00 08/21/17 06:22 Synthroid - PO 88 mcg AM PALOMA Administration Non-Formulary Medication 85 gm 08/20/17 22:00 Econazole Nitrate 1% [Spectazole 1%] TP BID PALOMA Pantoprazole Sodium 20 mg 08/21/17 10:00 08/21/17 10:52 Protonix - PO 20 mg DAILY PALOMA Administration Polyethylene Glycol 17 gm 08/21/17 10:00 08/21/17 10:51 Miralax (For Daily Use) - PO 17 grams DAILY PALOMA Administration Ranolazine 500 mg 08/20/17 22:00 08/21/17 10:51 Ranexa - PO Not Given BID PALOMA Impression 1. HAROLDO 2. hyponatremia - corrected 131 3. DM uncontrolled 4. hypothyroidism 5. 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
[2017-08-21] MEDS ORDERED: guaiFENesin/D-METHORPHAN HB 10 ML UNIT-DOSE CUPS PO SCH (22:00)
[2017-08-21] MEDS ORDERED: INSULIN (NOVOLOG MIX 70/30) 100 UNITS/ML MDV SQ SCH (22:00)
[2017-08-21] MEDS: ATORVASTATIN CA 40 MG TABLET (FP) PO SCH (22:05)
[2017-08-21] MEDS ORDERED: methylPREDNISolone NA SUCC 125 MG/2 ML VIAL IVPB ONE (22:15)
[2017-08-21] MEDS ORDERED: FUROSEMIDE 40 MG TABLET (FP) PO ONE (22:15)
[2017-08-21] MEDS: guaiFENesin/D-METHORPHAN HB 10 ML UNIT-DOSE CUPS PO SCH (22:41)
[2017-08-22] MEDS: guaiFENesin/D-METHORPHAN HB 10 ML UNIT-DOSE CUPS PO SCH ×6 (01:22→23:09)
[2017-08-22] MEDS: HEPARIN NA (PORCINE) 5,000 UNITS/ML 1ML VIAL SQ SCH ×3 (05:53→22:30)
[2017-08-22] MEDS: GABAPENTIN 300 MG CAPSULE (FP) PO SCH ×3 (05:53→22:27)
[2017-08-22] MEDS: LEVOTHYROXINE NA 88 MCG TABLET (FP) PO SCH (06:13)
[2017-08-22] MEDS: INSULIN (NOVOLOG MIX 70/30) 100 UNITS/ML MDV SQ SCH ×2 (06:13→17:37)
[2017-08-22] MEDS: INSULIN SLIDING SCALE (NOVOLOG) 1 VIAL SQ SCH ×4 (06:16→22:29)
[2017-08-22] MEDS: ALBUTEROL SO4 0.083% IH SOL 2.5 MG/3 ML VIAL.NEB. NEB SCH ×4 (08:11→20:00)
[2017-08-22 08:19] LABS: BASO % 0.3 % (0-2.0); HEMATOCRIT 33.8 % (32.4-45.2); HEMOGLOBIN 11.2 GM/dL (10.7-15.3); MCHC 33.1 g/dl (32.0-36.0); MEAN CELL VOLUME 90.7 fl (80-96); MEAN PLT VOLUME 9.4 fl (7.5-11.1); MONO % 0.8 % (3.8-10.2); NEUT % 89.9 % (42.8-82.8); PLATELET COUNT 232 K/MM3 (134-434); RBC 3.72 M/mm3 (3.60-5.2); RDW 13.9 % (11.6-15.6); WHITE BLOOD COUNT 13.4 K/mm3 (4.0-10.0)
[2017-08-22 08:46] LABS: BLOOD UREA NITROGEN 48 mg/dL (7-18); CALCIUM 8.7 mg/dL (8.5-10.1); CO2 29 mmol/L (21-32); GLUCOSE,RANDOM 420 mg/dL (74-106)
--- NOTE | 2017-08-22 09:00 | PN ---
Physical Exam: SUBJECTIVE: Patient seen and examined. She says her breathing is a bit better today, her cough is still present, non productive. She also states the "inflammation" to her thighs is less. OBJECTIVE: Vital Signs Period Temp Pulse Resp BP Sys/Ibarra Pulse Ox Last 24 Hr 97.9 F-98.6 F 61-74 20-22 92-131/41-57 95-95 PE Neuro: alert, awake, cn 2-12intact HEENT: poor dentition Pulm: right base rales, + wheezing, rhonchi, +NC CV: s1 s2 rrr Abd: s nt nd + bs ext: warm, no le edema Laboratory Results - last 24 hr 08/21/17 08/22/17 08/22/17 21:51 05:33 05:46 WBC RBC Hgb Hct MCV MCH MCHC RDW Plt Count MPV Neutrophils % Lymphocytes % Monocytes % Eosinophils % Basophils % Sodium Potassium Chloride Carbon Dioxide Anion Gap BUN Creatinine POC Glucometer 294 372 Random Glucose Calcium Ur Random Sodium 22 Ur Random Potassium 26.2 Ur Random Chloride 41 Urine Creatinine 08/22/17 08/22/17 05:46 07:15 WBC 13.4 H RBC 3.72 Hgb 11.2 Hct 33.8 MCV 90.7 MCH 30.0 MCHC 33.1 RDW 13.9 Plt Count 232 MPV 9.4 Neutrophils % 89.9 H Lymphocytes % 9.0 Monocytes % 0.8 L D Eosinophils % 0.0 Basophils % 0.3 Sodium Potassium Chloride Carbon Dioxide Anion Gap BUN Creatinine POC Glucometer Random Glucose Calcium Ur Random Sodium Ur Random Potassium Ur Random Chloride Urine Creatinine 31.9 Active Medications Generic Name Dose Route Start Last Admin Trade Name Fadyq PRN Reason Stop Dose Admin Acetaminophen 650 mg 08/20/17 20:45 08/20/17 21:41 Tylenol - PO 650 mg Q6H PRN Administration FEVER Albuterol Sulfate 1 amp 08/21/17 18:30 08/22/17 08:11 Ventolin 0.083% Nebulizer Soln - NEB 1 amp RQID ISABELA Administration Aspirin 81 mg 08/21/17 10:00 08/21/17 10:51 Asa - PO 81 mg DAILY ISABELA Administration Atorvastatin Calcium 40 mg 08/20/17 22:00 08/21/17 22:05 Lipitor - PO 40 mg HS ISABELA Administration Carvedilol 12.5 mg 08/20/17 22:00 08/21/17 22:41 Coreg - PO 12.5 mg BID ISABELA Administration Gabapentin 600 mg 08/20/17 22:00 08/22/17 05:53 Neurontin - PO 600 mg TID ISABELA Administration Guaifenesin 10 ml 08/21/17 22:15 08/22/17 05:54 Robitussin Dm - PO 10 ml Q4HPO ISABELA Administration Heparin Sodium (Porcine) 5,000 unit 08/20/17 22:00 08/22/17 05:53 Heparin - SQ 5,000 unit TID ISABELA Administration Azithromycin 250 mg/ Dextrose 250 mls @ 250 mls/hr 08/21/17 10:00 08/21/17 14 :00 IVPB 250 mls/hr DAILY ISABELA Administration CEFTRIAXONE 1 G/50 ML PREMIX 50 mls @ 100 mls/hr 08/21/17 10:00 08/21/17 10: 00 Ceftriaxone 1 Gm-D5w Bag IVPB 100 mls/hr DAILY ISABELA Administration Insulin Aspart 1 vial 08/21/17 17:12 08/22/17 06:16 Novolog Vial Sliding Scale - SQ 12 units ACHS ISABELA Administration Protocol Insulin Aspart 40 units 08/21/17 22:30 08/22/17 06:13 Novolog Mix 70/30 Vial SQ 40 units BIDAC ISABELA Administration Levothyroxine Sodium 88 mcg 08/21/17 07:00 08/22/17 06:13 Synthroid - PO 88 mcg AM ISABELA Administration Non-Formulary Medication 85 gm 08/20/17 22:00 Econazole Nitrate 1% [Spectazole 1%] TP BID [facility] Pantoprazole Sodium 20 mg 08/21/17 10:00 08/21/17 10:52 Protonix - PO 20 mg DAILY ISABELA Administration Polyethylene Glycol 17 gm 08/21/17 10:00 08/21/17 10:51 Miralax (For Daily Use) - PO 17 grams DAILY ISABELA Administration Ranolazine 500 mg 08/20/17 22:00 08/21/17 22:39 Ranexa - PO 500 mg BID ISABELA Administration Imaging: ECHO 2011: LV moderately reduced with hypokinetic motion abnormalities; RV normal; LAE; mild TR; mild pHTN Assessment: 82 year old female with a PMH significant for HTN, HLD, CAD s/p CABG x 3 (2004), systolic heart failure, CVA, IDDM, diabetic polyneuropathy, and hypothyroidism admitted with acute on chronic systolic heart failure, pneumonia, and UTI. Plan: 1. Acute on chronic systolic HF - Given x1 40mg PO lasix yesterday - Weight down 3kg - AM CXR pending - Would favor giving additional dose today, AM labs pending - Duonebs isabela - ECHO tomorrow 2. Hyponatremia - AM labs pending 3. PNA - Continue azithromycin and ceftriaxone (day 3) - Start solumedrol 40mg BID - WBC improving 4. HAROLDO - Hold PRATIBHA - Renal US ordered - FENa .80 indicates pre renal 5. CAD s/p CABG, hx CVA - Carvedilol 12.5mg BID - ASA - Lipitor - PRATIBHA on hold - Ranexa 6. UTI - Urine cx negative - On ceftriaxone for pna 7. HTN - BB, hold pratibha 8. HLD - Lipitor 9. DM II - Continue home insulin regimen will titrate as needed - ISS, BGM, ACHS 10. Diabetic polyneuropathy - Continue Gabapentin 600 TID 11. Hypothyroidism - Continue levothyroxine - TSH wnl 12. DVT PPX - Subq heparin Physical therapy Dispo: continues to require inpatient care. Full code. Visit type - Emergency Visit Emergency Visit: Yes ED Registration Date: 08/20/17 Care time: The patient presented to the Emergency Department on the above date and was hospitalized for further evaluation of their emergent condition. - New Patient This patient is new to me today: No - Critical Care Critical Care patient: No
[2017-08-22 09:03] LABS: ANION GAP 9 (8-16); CHLORIDE 92 mmol/L (98-107); CREATININE 1.5 mg/dL (0.55-1.02); POTASSIUM 4.4 mmol/L (3.5-5.1); SODIUM 130 mmol/L (136-145)
[2017-08-22] MEDS ORDERED: PT OWN MED DRAWER 7, Y5N ONE (11:03)
[2017-08-22] MEDS: methylPREDNISolone NA SUCC 125 MG/2 ML VIAL IVPB SCH ×2 (11:09→22:28)
[2017-08-22] MEDS: AZITHROMYCIN IVPB 250 MG in DEXTROSE 5%-WATER - 250 ML IVPB SCH (11:09)
[2017-08-22] MEDS: CEFTRIAXONE 1 G/50 ML PREMIX 50 ML IVPB SCH (11:09)
[2017-08-22] MEDS: CARVEDILOL 12.5 MG TABLET (FP) PO SCH ×2 (11:10→22:27)
[2017-08-22] MEDS: PANTOPRAZOLE 20 MG TABLET (FP) PO SCH (11:10)
[2017-08-22] MEDS: RANOLAZINE E.R. 500 MG TABLET (FP) PO SCH ×2 (11:10→22:28)
[2017-08-22] MEDS: ASPIRIN 81 MG CHEWABLE TABLETS PO SCH (11:10)
[2017-08-22] MEDS: POLYETHYLENE GLYCOL 3350 119 GM BTL PO SCH (11:11)
--- NOTE | 2017-08-22 18:13 | PN ---
Progress Note, Physician History of Present Illness: Pt seen and examined at bedside. She feels that her breathing is improved today compared to yesterday. - Current Medication List Current Medications: Active Medications Acetaminophen (Tylenol -) 650 mg PO Q6H PRN PRN Reason: FEVER Last Admin: 08/20/17 21:41 Dose: 650 mg Albuterol Sulfate (Ventolin 0.083% Nebulizer Soln -) 1 amp NEB RQID [facility] Last Admin: 08/22/17 12:06 Dose: 1 amp Aspirin (Asa -) 81 mg PO DAILY [facility] Last Admin: 08/22/17 11:10 Dose: 81 mg Atorvastatin Calcium (Lipitor -) 40 mg PO HS [facility] Last Admin: 08/21/17 22:05 Dose: 40 mg Carvedilol (Coreg -) 12.5 mg PO BID [facility] Last Admin: 08/22/17 11:10 Dose: 12.5 mg Gabapentin (Neurontin -) 600 mg PO TID [facility] Last Admin: 08/22/17 14:43 Dose: 600 mg Guaifenesin (Robitussin Dm -) 10 ml PO Q4HPO [facility] Last Admin: 08/22/17 17:26 Dose: 10 ml Heparin Sodium (Porcine) (Heparin -) 5,000 unit SQ TID [facility] Last Admin: 08/22/17 14:43 Dose: 5,000 unit Azithromycin 250 mg/ Dextrose 250 mls @ 250 mls/hr IVPB DAILY [facility] Last Admin: 08/22/17 11:09 Dose: 250 mls/hr CEFTRIAXONE 1 G/50 ML PREMIX (Ceftriaxone 1 Gm-D5w Bag) 50 mls @ 100 mls/hr IVPB DAILY [facility] Last Admin: 08/22/17 11:09 Dose: 100 mls/hr Insulin Aspart (Novolog Vial Sliding Scale -) 1 vial SQ ACHS [facility] PRN Reason: Protocol Last Admin: 08/22/17 17:38 Dose: 12 units Insulin Aspart (Novolog Mix 70/30 Vial) 40 units SQ BIDAC [facility] Last Admin: 08/22/17 17:37 Dose: 40 units Levothyroxine Sodium (Synthroid -) 88 mcg PO AM [facility] Last Admin: 08/22/17 06:13 Dose: 88 mcg Methylprednisolone Sodium Succinate (Solu-Medrol -) 40 mg IVPB BID [facility] Last Admin: 08/22/17 11:09 Dose: 40 mg Non-Formulary Medication (Econazole Nitrate 1% [Spectazole 1%]) 85 gm TP BID [facility] Pantoprazole Sodium (Protonix -) 20 mg PO DAILY [facility] Last Admin: 08/22/17 11:10 Dose: 20 mg Polyethylene Glycol (Miralax (For Daily Use) -) 17 gm PO DAILY [facility] Last Admin: 08/22/17 11:11 Dose: Not Given Ranolazine (Ranexa -) 500 mg PO BID [facility] Last Admin: 08/22/17 11:10 Dose: 500 mg - Objective Vital Signs: Vital Signs Temperature 98.0 F 08/22/17 15:26 Pulse Rate 59 L 08/22/17 15:26 Respiratory Rate 20 08/22/17 15:26 Blood Pressure 112/43 08/22/17 15:26 O2 Sat by Pulse Oximetry (%) 96 08/22/17 09:00 Constitutional: Yes: Calm Eyes: Yes: Conjunctiva Clear HENT: Yes: Atraumatic Cardiovascular: Yes: S1, S2 Respiratory: Yes: On Nasal O2, Wheezes Gastrointestinal: Yes: Soft, Abdomen, Obese Genitourinary: Yes: WNL Musculoskeletal: Yes: WNL Edema: No Neurological: Yes: Oriented Psychiatric: Yes: Oriented Labs: CBC, BMP 08/22/17 07:15 08/22/17 07:15 INR, PTT INR 1.03 (0.82-1.09) 08/20/17 08:30 - ....Imaging Chest X-ray: Report Reviewed Problem List - Problems (1) UTI (urinary tract infection) Code(s): N39.0 - URINARY TRACT INFECTION, SITE NOT SPECIFIED Qualifiers: Urinary tract infection type: site unspecified Hematuria presence: without hematuria Qualified Code(s): N39.0 - Urinary tract infection, site not specified (2) Hyponatremia Code(s): E87.1 - HYPO-OSMOLALITY AND HYPONATREMIA Assessment/Plan Current Medications Generic Name Dose Route Start Last Admin Trade Name Freq PRN Reason Stop Dose Admin Acetaminophen 650 mg 08/20/17 20:45 08/20/17 21:41 Tylenol - PO 650 mg Q6H PRN Administration FEVER Albuterol Sulfate 1 amp 08/21/17 18:30 08/22/17 12:06 Ventolin 0.083% Nebulizer Soln - NEB 1 amp RQID [facility] Administration Aspirin 81 mg 08/21/17 10:00 08/22/17 11:10 Asa - PO 81 mg DAILY PALOMA Administration Atorvastatin Calcium 40 mg 08/20/17 22:00 08/21/17 22:05 Lipitor - PO 40 mg HS PALOMA Administration Carvedilol 12.5 mg 08/20/17 22:00 08/22/17 11:10 Coreg - PO 12.5 mg BID PALOMA Administration Gabapentin 600 mg 08/20/17 22:00 08/22/17 14:43 Neurontin - PO 600 mg TID PALOMA Administration Guaifenesin 10 ml 08/21/17 22:15 08/22/17 17:26 Robitussin Dm - PO 10 ml Q4HPO PALOMA Administration Heparin Sodium (Porcine) 5,000 unit 08/20/17 22:00 08/22/17 14:43 Heparin - SQ 5,000 unit TID PALOMA Administration Azithromycin 250 mg/ Dextrose 250 mls @ 250 mls/hr 08/21/17 10:00 08/22/17 11 :09 IVPB 250 mls/hr DAILY PALOMA Administration CEFTRIAXONE 1 G/50 ML PREMIX 50 mls @ 100 mls/hr 08/21/17 10:00 08/22/17 11: 09 Ceftriaxone 1 Gm-D5w Bag IVPB 100 mls/hr DAILY PALOMA Administration Insulin Aspart 1 vial 08/21/17 17:12 08/22/17 17:38 Novolog Vial Sliding Scale - SQ 12 units ACHS PALOMA Administration Protocol Insulin Aspart 40 units 08/21/17 22:30 08/22/17 17:37 Novolog Mix 70/30 Vial SQ 40 units BIDAC PALOMA Administration Levothyroxine Sodium 88 mcg 08/21/17 07:00 08/22/17 06:13 Synthroid - PO 88 mcg AM PALOMA Administration Methylprednisolone Sodium Succinate 40 mg 08/22/17 10:00 08/22/17 11:09 Solu-Medrol - IVPB 40 mg BID PALOMA Administration Non-Formulary Medication 85 gm 08/20/17 22:00 Econazole Nitrate 1% [Spectazole 1%] TP BID [facility] Pantoprazole Sodium 20 mg 08/21/17 10:00 08/22/17 11:10 Protonix - PO 20 mg DAILY PALOMA Administration Polyethylene Glycol 17 gm 08/21/17 10:00 08/22/17 11:11 Miralax (For Daily Use) - PO Not Given DAILY [facility] Ranolazine 500 mg 08/20/17 22:00 08/22/17 11:10 Ranexa - PO 500 mg BID PALOMA Administration Impression 1. HAROLDO 2. hyponatremia - corrected 131 3. DM uncontrolled 4. hypothyroidism 5. 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
[2017-08-22] MEDS: ATORVASTATIN CA 40 MG TABLET (FP) PO SCH (22:28)
[2017-08-23] MEDS: guaiFENesin/D-METHORPHAN HB 10 ML UNIT-DOSE CUPS PO SCH ×6 (02:20→22:41)
[2017-08-23] MEDS: HEPARIN NA (PORCINE) 5,000 UNITS/ML 1ML VIAL SQ SCH ×3 (05:49→22:38)
[2017-08-23] MEDS: GABAPENTIN 300 MG CAPSULE (FP) PO SCH ×3 (05:51→22:37)
[2017-08-23] MEDS: INSULIN SLIDING SCALE (NOVOLOG) 1 VIAL SQ SCH ×4 (06:00→22:41)
[2017-08-23] MEDS: LEVOTHYROXINE NA 88 MCG TABLET (FP) PO SCH (06:01)
[2017-08-23] MEDS: INSULIN (NOVOLOG MIX 70/30) 100 UNITS/ML MDV SQ SCH ×2 (06:42→16:30)
[2017-08-23 08:11] LABS: MCH 30.1 pg (25.7-33.7); MCHC 33.5 g/dl (32.0-36.0); MEAN CELL VOLUME 89.8 fl (80-96); PLATELET COUNT 240 K/MM3 (134-434); RBC 3.67 M/mm3 (3.60-5.2); RDW 13.8 % (11.6-15.6); WHITE BLOOD COUNT 12.7 K/mm3 (4.0-10.0)
[2017-08-23] MEDS: ALBUTEROL SO4 0.083% IH SOL 2.5 MG/3 ML VIAL.NEB. NEB SCH ×4 (08:31→20:50)
[2017-08-23] MEDS ORDERED: PT OWN MED DRAWER 7, Y5N ONE (09:05)
[2017-08-23] MEDS: ASPIRIN 81 MG CHEWABLE TABLETS PO SCH (09:21)
[2017-08-23] MEDS: RANOLAZINE E.R. 500 MG TABLET (FP) PO SCH ×2 (09:21→22:37)
[2017-08-23] MEDS: PANTOPRAZOLE 20 MG TABLET (FP) PO SCH (09:21)
[2017-08-23] MEDS: CARVEDILOL 12.5 MG TABLET (FP) PO SCH ×2 (09:21→22:37)
[2017-08-23] MEDS: methylPREDNISolone NA SUCC 125 MG/2 ML VIAL IVPB SCH (09:21)
[2017-08-23 09:50] LABS: ANION GAP 9 (8-16); BLOOD UREA NITROGEN 45 mg/dL (7-18); CALCIUM 8.6 mg/dL (8.5-10.1); CHLORIDE 93 mmol/L (98-107); CO2 28 mmol/L (21-32); GLUCOSE,RANDOM 298 mg/dL (74-106); POTASSIUM 4.7 mmol/L (3.5-5.1); SODIUM 130 mmol/L (136-145)
[2017-08-23 09:52] LABS: CREATININE 1.4 mg/dL (0.55-1.02)
[2017-08-23] MEDS: AZITHROMYCIN IVPB 250 MG in DEXTROSE 5%-WATER - 250 ML IVPB SCH (10:59)
[2017-08-23] MEDS: POLYETHYLENE GLYCOL 3350 119 GM BTL PO SCH (10:59)
[2017-08-23] MEDS: CEFTRIAXONE 1 G/50 ML PREMIX 50 ML IVPB SCH (10:59)
[2017-08-23] MEDS ORDERED: INSULIN (NOVOLOG) ASPART 100 UNITS/ML 10ML VIAL ONE (12:00)
--- NOTE | 2017-08-23 16:26 | PN ---
Progress Note, Physician History of Present Illness: Pt seen and examined at bedside. She appears much more comfortable today. She feels breathing is improved. - Current Medication List Current Medications: Active Medications Acetaminophen (Tylenol -) 650 mg PO Q6H PRN PRN Reason: FEVER Last Admin: 08/20/17 21:41 Dose: 650 mg Albuterol Sulfate (Ventolin 0.083% Nebulizer Soln -) 1 amp NEB RQID [facility] Last Admin: 08/23/17 12:14 Dose: 1 amp Aspirin (Asa -) 81 mg PO DAILY [facility] Last Admin: 08/23/17 09:21 Dose: 81 mg Atorvastatin Calcium (Lipitor -) 40 mg PO HS [facility] Last Admin: 08/22/17 22:28 Dose: 40 mg Carvedilol (Coreg -) 12.5 mg PO BID [facility] Last Admin: 08/23/17 09:21 Dose: 12.5 mg Gabapentin (Neurontin -) 600 mg PO TID [facility] Last Admin: 08/23/17 14:16 Dose: 600 mg Guaifenesin (Robitussin Dm -) 10 ml PO Q4HPO [facility] Last Admin: 08/23/17 14:16 Dose: 10 ml Heparin Sodium (Porcine) (Heparin -) 5,000 unit SQ TID [facility] Last Admin: 08/23/17 14:16 Dose: 5,000 unit Azithromycin 250 mg/ Dextrose 250 mls @ 250 mls/hr IVPB DAILY [facility] Last Admin: 08/23/17 10:59 Dose: 250 mls/hr CEFTRIAXONE 1 G/50 ML PREMIX (Ceftriaxone 1 Gm-D5w Bag) 50 mls @ 100 mls/hr IVPB DAILY [facility] Last Admin: 08/23/17 10:59 Dose: 100 mls/hr Insulin Aspart (Novolog Vial Sliding Scale -) 1 vial SQ ACHS [facility] PRN Reason: Protocol Last Admin: 08/23/17 12:01 Dose: 10 units Insulin Aspart (Novolog Mix 70/30 Vial) 40 units SQ BIDAC [facility] Last Admin: 08/23/17 06:42 Dose: 40 units Levothyroxine Sodium (Synthroid -) 88 mcg PO AM [facility] Last Admin: 08/23/17 06:01 Dose: 88 mcg Methylprednisolone Sodium Succinate (Solu-Medrol -) 40 mg IVPB BID [facility] Last Admin: 08/23/17 09:21 Dose: 40 mg Pantoprazole Sodium (Protonix -) 20 mg PO DAILY [facility] Last Admin: 08/23/17 09:21 Dose: 20 mg Polyethylene Glycol (Miralax (For Daily Use) -) 17 gm PO DAILY [facility] Last Admin: 08/23/17 10:59 Dose: 17 grams Ranolazine (Ranexa -) 500 mg PO BID [facility] Last Admin: 08/23/17 09:21 Dose: 500 mg - Objective Vital Signs: Vital Signs Temperature 98.0 F 08/23/17 15:38 Pulse Rate 62 08/23/17 15:38 Respiratory Rate 20 08/23/17 15:38 Blood Pressure 100/50 08/23/17 15:38 O2 Sat by Pulse Oximetry (%) 96 08/22/17 21:00 Constitutional: Yes: Calm Eyes: Yes: Conjunctiva Clear HENT: Yes: Atraumatic Cardiovascular: Yes: S1, S2 Respiratory: Yes: Wheezes, Other (improved) Gastrointestinal: Yes: Soft, Abdomen, Obese Genitourinary: Yes: WNL Musculoskeletal: Yes: WNL Edema: No Neurological: Yes: Oriented Psychiatric: Yes: Oriented Labs: CBC, BMP 08/23/17 07:46 08/23/17 07:46 INR, PTT INR 1.03 (0.82-1.09) 08/20/17 08:30 - ....Imaging Ultrasound: Report Reviewed Problem List - Problems (1) UTI (urinary tract infection) Code(s): N39.0 - URINARY TRACT INFECTION, SITE NOT SPECIFIED Qualifiers: Urinary tract infection type: site unspecified Hematuria presence: without hematuria Qualified Code(s): N39.0 - Urinary tract infection, site not specified (2) Hyponatremia Code(s): E87.1 - HYPO-OSMOLALITY AND HYPONATREMIA Assessment/Plan Current Medications Generic Name Dose Route Start Last Admin Trade Name Freq PRN Reason Stop Dose Admin Acetaminophen 650 mg 08/20/17 20:45 08/20/17 21:41 Tylenol - PO 650 mg Q6H PRN Administration FEVER Albuterol Sulfate 1 amp 08/21/17 18:30 08/23/17 12:14 Ventolin 0.083% Nebulizer Soln - NEB 1 amp RQID [facility] Administration Aspirin 81 mg 08/21/17 10:00 08/23/17 09:21 Asa - PO 81 mg DAILY [facility] Administration Atorvastatin Calcium 40 mg 08/20/17 22:00 08/22/17 22:28 Lipitor - PO 40 mg HS [facility] Administration Carvedilol 12.5 mg 08/20/17 22:00 08/23/17 09:21 Coreg - PO 12.5 mg BID [facility] Administration Gabapentin 600 mg 08/20/17 22:00 08/23/17 14:16 Neurontin - PO 600 mg TID [facility] Administration Guaifenesin 10 ml 08/21/17 22:15 08/23/17 14:16 Robitussin Dm - PO 10 ml Q4HPO [facility] Administration Heparin Sodium (Porcine) 5,000 unit 08/20/17 22:00 08/23/17 14:16 Heparin - SQ 5,000 unit TID [facility] Administration Azithromycin 250 mg/ Dextrose 250 mls @ 250 mls/hr 08/21/17 10:00 08/23/17 10 :59 IVPB 250 mls/hr DAILY [facility] Administration CEFTRIAXONE 1 G/50 ML PREMIX 50 mls @ 100 mls/hr 08/21/17 10:00 08/23/17 10: 59 Ceftriaxone 1 Gm-D5w Bag IVPB 100 mls/hr DAILY [facility] Administration Insulin Aspart 1 vial 08/21/17 17:12 08/23/17 12:01 Novolog Vial Sliding Scale - SQ 10 units ACHS [facility] Administration Protocol Insulin Aspart 40 units 08/21/17 22:30 08/23/17 06:42 Novolog Mix 70/30 Vial SQ 40 units BIDAC [facility] Administration Levothyroxine Sodium 88 mcg 08/21/17 07:00 08/23/17 06:01 Synthroid - PO 88 mcg AM [facility] Administration Methylprednisolone Sodium Succinate 40 mg 08/22/17 10:00 08/23/17 09:21 Solu-Medrol - IVPB 40 mg BID [facility] Administration Pantoprazole Sodium 20 mg 08/21/17 10:00 08/23/17 09:21 Protonix - PO 20 mg DAILY [facility] Administration Polyethylene Glycol 17 gm 08/21/17 10:00 08/23/17 10:59 Miralax (For Daily Use) - PO 17 grams DAILY [facility] Administration Ranolazine 500 mg 08/20/17 22:00 08/23/17 09:21 Ranexa - PO 500 mg BID [facility] Administration Impression 1. HAROLDO 2. hyponatremia 3. DM uncontrolled 4. hypothyroidism 5. CHF Plan - renal function starting to improve - sodium stabilizing - renal workup in progress - cont steroids - will hold off lasix - will need better glucose control Dr Bemran
[2017-08-23] MEDS ORDERED: INSULIN (NOVOLOG MIX 70/30) 100 UNITS/ML MDV SQ ONE (17:09)
--- NOTE | 2017-08-23 19:58 | PN ---
Physical Exam: SUBJECTIVE: Patient seen and examined OBJECTIVE: Vital Signs Period Temp Pulse Resp BP Sys/Ibarra Pulse Ox Last 24 Hr 97.3 F-98.2 F 62-67 20-22 100-125/50-72 96-96 GENERAL: The patient is awake, alert, and fully oriented, in no acute distress. LUNGS: Breath sounds equal, clear to auscultation bilaterally, no wheezes, no crackles, no accessory muscle use. HEART: Regular rate and rhythm, S1, S2 without murmur, rub or gallop. ABDOMEN: Soft, nontender, nondistended, normoactive bowel sounds, no guarding, no rebound, no hepatosplenomegaly, no masses. EXTREMITIES: 2+ pulses, warm, well-perfused, no edema. NEUROLOGICAL: Cranial nerves II through XII grossly intact. Normal speech, gait not observed. Laboratory Results - last 24 hr 08/21/17 08/21/17 08/21/17 00:06 06:10 17:22 WBC RBC Hgb Hct MCV MCH MCHC RDW Plt Count MPV Sodium Potassium Chloride Carbon Dioxide Anion Gap BUN Creatinine POC Glucometer 535 510 434 Random Glucose Calcium 08/22/17 08/22/17 08/22/17 10:10 11:35 17:31 WBC RBC Hgb Hct MCV MCH MCHC RDW Plt Count MPV Sodium Potassium Chloride Carbon Dioxide Anion Gap BUN Creatinine POC Glucometer 424 416 473 Random Glucose Calcium 08/22/17 08/23/17 08/23/17 22:12 05:34 07:46 WBC 12.7 H RBC 3.67 Hgb 11.0 Hct 33.0 MCV 89.8 MCH 30.1 MCHC 33.5 RDW 13.8 Plt Count 240 MPV 9.0 Sodium Potassium Chloride Carbon Dioxide Anion Gap BUN Creatinine POC Glucometer 381 306 Random Glucose Calcium 08/23/17 08/23/17 07:46 11:58 WBC RBC Hgb Hct MCV MCH MCHC RDW Plt Count MPV Sodium 130 L Potassium 4.7 Chloride 93 L Carbon Dioxide 28 Anion Gap 9 BUN 45 H Creatinine 1.4 H POC Glucometer 372 Random Glucose 298 H Calcium 8.6 Active Medications Generic Name Dose Route Start Last Admin Trade Name Freq PRN Reason Stop Dose Admin Acetaminophen 650 mg 08/20/17 20:45 08/20/17 21:41 Tylenol - PO 650 mg Q6H PRN Administration FEVER Albuterol Sulfate 1 amp 08/21/17 18:30 08/23/17 16:57 Ventolin 0.083% Nebulizer Soln - NEB 1 amp RQID [facility] Administration Aspirin 81 mg 08/21/17 10:00 08/23/17 09:21 Asa - PO 81 mg DAILY [facility] Administration Atorvastatin Calcium 40 mg 08/20/17 22:00 08/22/17 22:28 Lipitor - PO 40 mg HS [facility] Administration Carvedilol 12.5 mg 08/20/17 22:00 08/23/17 09:21 Coreg - PO 12.5 mg BID [facility] Administration Gabapentin 600 mg 08/20/17 22:00 08/23/17 14:16 Neurontin - PO 600 mg TID [facility] Administration Guaifenesin 10 ml 08/21/17 22:15 08/23/17 17:32 Robitussin Dm - PO 10 ml Q4HPO [facility] Administration Heparin Sodium (Porcine) 5,000 unit 08/20/17 22:00 08/23/17 14:16 Heparin - SQ 5,000 unit TID [facility] Administration Azithromycin 250 mg/ Dextrose 250 mls @ 250 mls/hr 08/21/17 10:00 08/23/17 10 :59 IVPB 250 mls/hr DAILY [facility] Administration CEFTRIAXONE 1 G/50 ML PREMIX 50 mls @ 100 mls/hr 08/21/17 10:00 08/23/17 10: 59 Ceftriaxone 1 Gm-D5w Bag IVPB 100 mls/hr DAILY [facility] Administration Insulin Aspart 1 vial 08/21/17 17:12 08/23/17 17:29 Novolog Vial Sliding Scale - SQ 12 units ACHS [facility] Administration Protocol Insulin Detemir 10 units 08/23/17 22:00 Levemir Vial SQ HS [facility] Levothyroxine Sodium 88 mcg 08/21/17 07:00 08/23/17 06:01 Synthroid - PO 88 mcg AM [facility] Administration Pantoprazole Sodium 20 mg 08/21/17 10:00 08/23/17 09:21 Protonix - PO 20 mg DAILY [facility] Administration Polyethylene Glycol 17 gm 08/21/17 10:00 08/23/17 10:59 Miralax (For Daily Use) - PO 17 grams DAILY [facility] Administration Ranolazine 500 mg 08/20/17 22:00 08/23/17 09:21 Ranexa - PO 500 mg BID [facility] Administration ASSESSMENT/PLAN 82 year-old female with a PMH significant for HTN, HLD, CAD s/p CABG x 3 (2004) , systolic heart failure, CVA, IDDM, diabetic polyneuropathy, and hypothyroidism. Admitted for acute on chronic systolic heart failure, pneumonia, and UTI. Acute on chronic systolic heart failure --08/23 Echo: LV mild to moderately reduced with severe wall motion hypokinesis ; BLAE; trace MR; mild TR; trace AI --hold Lasix due to HAROLDO Pneumonia --WBC trending down, afebrile --continue ceftriaxone (day #3) and azithromycin (day #3) --cultures negative to date HAROLDO --Cr 1.1 on admission, peak 1.6, today 1.4 --hold diuretics UTI --urine culture negative Hyponatremia, resolved --corrected Na 133 Hypertension --continue carvedilol, ramipril Hyperlipidemia --continue Lipitor Coronary artery disease h/o CVA --continue ASA, Lipitor, carvedilol, Ranexa IDDM Diabetic polyneuropathy --sugars running high --start Levemir 10U qhs --Novolog sliding scale coverage --continue Gabapentin Hypothyroidism --continue levothyroxine FEN Fluids: PO intake adequate Electrolytes: replete as indicated Nutrition: low sodium, diabetic DVT prophylaxis: subq heparin Physical therapy Dispo: continues to require inpatient care. Family agreeable to SNF. Full code. Visit type - Emergency Visit Emergency Visit: Yes ED Registration Date: 08/20/17 Care time: The patient presented to the Emergency Department on the above date and was hospitalized for further evaluation of their emergent condition. - New Patient This patient is new to me today: No - Critical Care Critical Care patient: No
[2017-08-23] MEDS ORDERED: INSULIN DETEMIR 100 UNITS/ML MDV SQ SCH (22:00)
[2017-08-23] MEDS: ATORVASTATIN CA 40 MG TABLET (FP) PO SCH (22:37)
[2017-08-23] MEDS: INSULIN DETEMIR 100 UNITS/ML MDV SQ SCH (22:40)
[2017-08-24] MEDS: guaiFENesin/D-METHORPHAN HB 10 ML UNIT-DOSE CUPS PO SCH ×3 (03:12→13:51)
[2017-08-24] MEDS: INSULIN SLIDING SCALE (NOVOLOG) 1 VIAL SQ SCH ×4 (06:30→21:56)
[2017-08-24] MEDS: LEVOTHYROXINE NA 88 MCG TABLET (FP) PO SCH (06:30)
[2017-08-24] MEDS: GABAPENTIN 300 MG CAPSULE (FP) PO SCH ×3 (06:30→21:54)
[2017-08-24] MEDS: HEPARIN NA (PORCINE) 5,000 UNITS/ML 1ML VIAL SQ SCH ×3 (06:30→21:53)
[2017-08-24] MEDS: ALBUTEROL SO4 0.083% IH SOL 2.5 MG/3 ML VIAL.NEB. NEB SCH ×4 (07:40→20:25)
[2017-08-24 07:51] LABS: BASO % 0.1 % (0-2.0); HEMOGLOBIN 11.2 GM/dL (10.7-15.3); LYMPH % 15.9 % (8-40); MCH 30.4 pg (25.7-33.7); MCHC 33.9 g/dl (32.0-36.0); MEAN CELL VOLUME 89.8 fl (80-96); MEAN PLT VOLUME 9.3 fl (7.5-11.1); MONO % 7.3 % (3.8-10.2); NEUT % 76.7 % (42.8-82.8); PLATELET COUNT 223 K/MM3 (134-434); RBC 3.68 M/mm3 (3.60-5.2); RDW 13.6 % (11.6-15.6); WHITE BLOOD COUNT 12.4 K/mm3 (4.0-10.0)
[2017-08-24 08:15] LABS: CHLORIDE 97 mmol/L (98-107); POTASSIUM 4.7 mmol/L (3.5-5.1); SODIUM 134 mmol/L (136-145)
[2017-08-24 08:28] LABS: ALK PHOS 124 U/L (45-117); ANION GAP 7 (8-16); BILIRUBIN,TOTAL 0.2 mg/dL (0.2-1.0); BLOOD UREA NITROGEN 39 mg/dL (7-18); CALCIUM 8.4 mg/dL (8.5-10.1); CO2 30 mmol/L (21-32); CREATININE 1.3 mg/dL (0.55-1.02); GLUCOSE,RANDOM 132 mg/dL (74-106); MAGNESIUM 2.4 mg/dL (1.8-2.4); SGOT/AST 28 U/L (15-37); SGPT/ALT 30 U/L (12-78); TOT PROT 6.7 g/dl (6.4-8.2)
[2017-08-24] MEDS: CEFTRIAXONE 1 G/50 ML PREMIX 50 ML IVPB SCH (09:57)
[2017-08-24] MEDS: AZITHROMYCIN IVPB 250 MG in DEXTROSE 5%-WATER - 250 ML IVPB SCH (10:04)
[2017-08-24] MEDS: PANTOPRAZOLE 20 MG TABLET (FP) PO SCH (10:05)
[2017-08-24] MEDS: RANOLAZINE E.R. 500 MG TABLET (FP) PO SCH ×2 (10:05→21:54)
[2017-08-24] MEDS: CARVEDILOL 12.5 MG TABLET (FP) PO SCH ×2 (10:05→21:54)
[2017-08-24] MEDS: POLYETHYLENE GLYCOL 3350 119 GM BTL PO SCH ×2 (10:05→21:55)
[2017-08-24] MEDS: ASPIRIN 81 MG CHEWABLE TABLETS PO SCH (10:05)
[2017-08-24] MEDS ORDERED: INSULIN (NOVOLOG) ASPART 100 UNITS/ML 10ML VIAL ONE (11:21)
[2017-08-24] MEDS: guaiFENesin/D-METHORPHAN HB 5 ML UNIT-DOSE CUPS PO SCH ×4 (11:49→21:56)
--- NOTE | 2017-08-24 13:19 | PN ---
Physical Exam: SUBJECTIVE: Patient seen and examined at bedside. More SOB and complaining of constipation. OBJECTIVE: Vital Signs Period Temp Pulse Resp BP Sys/Ibarra Pulse Ox Last 24 Hr 98.0 F-98.6 F 60-67 18-20 100-135/50-75 96-97 GENERAL: The patient is awake, alert, and fully oriented, in no acute distress. LUNGS: Diffuse wheezing. HEART: Regular rate and rhythm, S1, S2 without murmur, rub or gallop. ABDOMEN: Soft, nontender, nondistended, normoactive bowel sounds, no guarding, no rebound EXTREMITIES: 2+ pulses, warm, well-perfused, no edema. NEUROLOGICAL: Cranial nerves II through XII grossly intact. Normal speech, gait not observed. Laboratory Results - last 24 hr 08/23/17 08/23/17 08/24/17 17:00 22:35 06:20 WBC RBC Hgb Hct MCV MCH MCHC RDW Plt Count MPV Neutrophils % Lymphocytes % Monocytes % Eosinophils % Basophils % Sodium 134 L Potassium 4.7 Chloride 97 L Carbon Dioxide 30 Anion Gap 7 L BUN 39 H Creatinine 1.3 H Creat Clearance w eGFR 39.21 POC Glucometer 425 284 Random Glucose 132 H Calcium 8.4 L Magnesium 2.4 Total Bilirubin 0.2 D AST 28 ALT 30 Alkaline Phosphatase 124 H Total Protein 6.7 Albumin 3.0 L 08/24/17 08/24/17 06:20 06:29 WBC 12.4 H RBC 3.68 Hgb 11.2 Hct 33.0 MCV 89.8 MCH 30.4 MCHC 33.9 RDW 13.6 Plt Count 223 MPV 9.3 Neutrophils % 76.7 Lymphocytes % 15.9 D Monocytes % 7.3 D Eosinophils % 0.0 Basophils % 0.1 Sodium Potassium Chloride Carbon Dioxide Anion Gap BUN Creatinine Creat Clearance w eGFR POC Glucometer 130 Random Glucose Calcium Magnesium Total Bilirubin AST ALT Alkaline Phosphatase Total Protein Albumin Active Medications Generic Name Dose Route Start Last Admin Trade Name Freq PRN Reason Stop Dose Admin Acetaminophen 650 mg 08/20/17 20:45 08/20/17 21:41 Tylenol - PO 650 mg Q6H PRN Administration FEVER Albuterol Sulfate 1 amp 08/21/17 18:30 08/24/17 12:11 Ventolin 0.083% Nebulizer Soln - NEB 1 amp RQID [facility] Administration Aspirin 81 mg 08/21/17 10:00 08/24/17 10:05 Asa - PO 81 mg DAILY [facility] Administration Atorvastatin Calcium 40 mg 08/20/17 22:00 08/23/17 22:37 Lipitor - PO 40 mg HS [facility] Administration Carvedilol 12.5 mg 08/20/17 22:00 08/24/17 10:05 Coreg - PO 12.5 mg BID [facility] Administration Furosemide 40 mg 08/24/17 12:30 Lasix Injection - IVPUSH DAILY [facility] Gabapentin 600 mg 08/20/17 22:00 08/24/17 06:30 Neurontin - PO 600 mg TID [facility] Administration Guaifenesin 10 ml 08/24/17 11:46 08/24/17 11:49 Guaifenesin Dm Syrup PO 10 ml Q4HPO [facility] Administration Heparin Sodium (Porcine) 5,000 unit 08/20/17 22:00 08/24/17 06:30 Heparin - SQ 5,000 unit TID [facility] Administration Azithromycin 250 mg/ Dextrose 250 mls @ 250 mls/hr 08/21/17 10:00 08/24/17 10 :04 IVPB 250 mls/hr DAILY [facility] Administration CEFTRIAXONE 1 G/50 ML PREMIX 50 mls @ 100 mls/hr 08/21/17 10:00 08/24/17 09: 57 Ceftriaxone 1 Gm-D5w Bag IVPB 100 mls/hr DAILY [facility] Administration Insulin Aspart 1 vial 08/21/17 17:12 08/24/17 11:51 Novolog Vial Sliding Scale - SQ 6 units ACHS [facility] Administration Protocol Insulin Detemir 10 units 08/23/17 22:00 08/23/17 22:40 Levemir Vial SQ 10 units HS [facility] Administration Levothyroxine Sodium 88 mcg 08/21/17 07:00 08/24/17 06:30 Synthroid - PO 88 mcg AM [facility] Administration Pantoprazole Sodium 20 mg 08/21/17 10:00 08/24/17 10:05 Protonix - PO 20 mg DAILY [facility] Administration Polyethylene Glycol 17 gm 08/21/17 10:00 08/24/17 10:05 Miralax (For Daily Use) - PO 17 grams DAILY [facility] Administration Ranolazine 500 mg 08/20/17 22:00 08/24/17 10:05 Ranexa - PO 500 mg BID [facility] Administration ASSESSMENT/PLAN 82 year-old female with a PMH significant for HTN, HLD, CAD s/p CABG x 3 (2004) , systolic heart failure, CVA, IDDM, diabetic polyneuropathy, and hypothyroidism. Admitted for acute on chronic systolic heart failure, pneumonia , and UTI. Acute on chronic systolic heart failure --/ Echo: LV mild to moderately reduced with severe wall motion hypokinesis ; BLAE; trace MR; mild TR; trace AI --wheezing again today, likely from volume; Lasix IV 40mg daily Pneumonia --WBC trending down, afebrile --continue ceftriaxone (day #4) and azithromycin (day #4) --cultures negative to date HAROLDO --Cr 1.1 on admission, peak 1.6, today 1.3 --hold diuretics UTI --urine culture negative Hyponatremia, resolved --corrected Na 134 Hypertension --continue carvedilol, ramipril Hyperlipidemia --continue Lipitor Coronary artery disease h/o CVA --continue ASA, Lipitor, carvedilol, Ranexa IDDM Diabetic polyneuropathy --better control with addition of Levemir 10U qhs --Novolog sliding scale coverage --continue Gabapentin Hypothyroidism --continue levothyroxine FEN Fluids: PO intake adequate Electrolytes: replete as indicated Nutrition: low sodium, diabetic DVT prophylaxis: subq heparin Physical therapy Dispo: continues to require inpatient care. Family agreeable to SNF. Full code. Visit type - Emergency Visit Emergency Visit: Yes ED Registration Date: 08/20/17 Care time: The patient presented to the Emergency Department on the above date and was hospitalized for further evaluation of their emergent condition. - New Patient This patient is new to me today: No - Critical Care Critical Care patient: No
--- NOTE | 2017-08-24 14:05 | PN ---
Progress Note, Physician History of Present Illness: Pt seen and examined at bedside. She is awake and appears comfortable. Pt complains of constipation. - Current Medication List Current Medications: Active Medications Acetaminophen (Tylenol -) 650 mg PO Q6H PRN PRN Reason: FEVER Last Admin: 08/20/17 21:41 Dose: 650 mg Albuterol Sulfate (Ventolin 0.083% Nebulizer Soln -) 1 amp NEB RQID [facility] Last Admin: 08/24/17 12:11 Dose: 1 amp Aspirin (Asa -) 81 mg PO DAILY [facility] Last Admin: 08/24/17 10:05 Dose: 81 mg Atorvastatin Calcium (Lipitor -) 40 mg PO HS [facility] Last Admin: 08/23/17 22:37 Dose: 40 mg Carvedilol (Coreg -) 12.5 mg PO BID [facility] Last Admin: 08/24/17 10:05 Dose: 12.5 mg Docusate Sodium (Colace -) 300 mg PO HS [facility] Furosemide (Lasix Injection -) 40 mg IVPUSH DAILY [facility] Gabapentin (Neurontin -) 600 mg PO TID [facility] Last Admin: 08/24/17 06:30 Dose: 600 mg Guaifenesin (Guaifenesin Dm Syrup) 10 ml PO Q4HPO [facility] Last Admin: 08/24/17 11:49 Dose: 10 ml Heparin Sodium (Porcine) (Heparin -) 5,000 unit SQ TID [facility] Last Admin: 08/24/17 06:30 Dose: 5,000 unit Azithromycin 250 mg/ Dextrose 250 mls @ 250 mls/hr IVPB DAILY [facility] Last Admin: 08/24/17 10:04 Dose: 250 mls/hr CEFTRIAXONE 1 G/50 ML PREMIX (Ceftriaxone 1 Gm-D5w Bag) 50 mls @ 100 mls/hr IVPB DAILY [facility] Last Admin: 08/24/17 09:57 Dose: 100 mls/hr Insulin Aspart (Novolog Vial Sliding Scale -) 1 vial SQ ACHS [facility] PRN Reason: Protocol Last Admin: 08/24/17 11:51 Dose: 6 units Insulin Detemir (Levemir Vial) 10 units SQ HS [facility] Last Admin: 08/23/17 22:40 Dose: 10 units Levothyroxine Sodium (Synthroid -) 88 mcg PO AM [facility] Last Admin: 08/24/17 06:30 Dose: 88 mcg Pantoprazole Sodium (Protonix -) 20 mg PO DAILY [facility] Last Admin: 08/24/17 10:05 Dose: 20 mg Polyethylene Glycol (Miralax (For Daily Use) -) 17 gm PO BID [facility] Ranolazine (Ranexa -) 500 mg PO BID [facility] Last Admin: 08/24/17 10:05 Dose: 500 mg - Objective Vital Signs: Vital Signs Temperature 98.0 F 08/24/17 09:53 Pulse Rate 65 08/24/17 09:53 Respiratory Rate 19 08/24/17 09:53 Blood Pressure 122/56 08/24/17 09:53 O2 Sat by Pulse Oximetry (%) 97 08/24/17 09:55 Constitutional: Yes: Calm Eyes: Yes: Conjunctiva Clear HENT: Yes: Atraumatic Neck: Yes: Supple Cardiovascular: Yes: S1, S2 Respiratory: Yes: On Nasal O2 Gastrointestinal: Yes: Soft Genitourinary: Yes: WNL Musculoskeletal: Yes: WNL Edema: No Neurological: Yes: Oriented Psychiatric: Yes: Oriented Labs: CBC, BMP 08/24/17 06:20 08/24/17 06:20 INR, PTT INR 1.03 (0.82-1.09) 08/20/17 08:30 Problem List - Problems (1) UTI (urinary tract infection) Code(s): N39.0 - URINARY TRACT INFECTION, SITE NOT SPECIFIED Qualifiers: Urinary tract infection type: site unspecified Hematuria presence: without hematuria Qualified Code(s): N39.0 - Urinary tract infection, site not specified (2) Hyponatremia Code(s): E87.1 - HYPO-OSMOLALITY AND HYPONATREMIA Assessment/Plan Current Medications Generic Name Dose Route Start Last Admin Trade Name Freq PRN Reason Stop Dose Admin Acetaminophen 650 mg 08/20/17 20:45 08/20/17 21:41 Tylenol - PO 650 mg Q6H PRN Administration FEVER Albuterol Sulfate 1 amp 08/21/17 18:30 08/24/17 12:11 Ventolin 0.083% Nebulizer Soln - NEB 1 amp RQID [facility] Administration Aspirin 81 mg 08/21/17 10:00 08/24/17 10:05 Asa - PO 81 mg DAILY [facility] Administration Atorvastatin Calcium 40 mg 08/20/17 22:00 08/23/17 22:37 Lipitor - PO 40 mg HS [facility] Administration Carvedilol 12.5 mg 08/20/17 22:00 08/24/17 10:05 Coreg - PO 12.5 mg BID [facility] Administration Docusate Sodium 300 mg 08/24/17 22:00 Colace - PO HS [facility] Furosemide 40 mg 08/24/17 14:00 Lasix Injection - IVPUSH DAILY [facility] Gabapentin 600 mg 08/20/17 22:00 08/24/17 06:30 Neurontin - PO 600 mg TID [facility] Administration Guaifenesin 10 ml 08/24/17 11:46 08/24/17 11:49 Guaifenesin Dm Syrup PO 10 ml Q4HPO [facility] Administration Heparin Sodium (Porcine) 5,000 unit 08/20/17 22:00 08/24/17 06:30 Heparin - SQ 5,000 unit TID [facility] Administration Azithromycin 250 mg/ Dextrose 250 mls @ 250 mls/hr 08/21/17 10:00 08/24/17 10 :04 IVPB 250 mls/hr DAILY [facility] Administration CEFTRIAXONE 1 G/50 ML PREMIX 50 mls @ 100 mls/hr 08/21/17 10:00 08/24/17 09: 57 Ceftriaxone 1 Gm-D5w Bag IVPB 100 mls/hr DAILY [facility] Administration Insulin Aspart 1 vial 08/21/17 17:12 08/24/17 11:51 Novolog Vial Sliding Scale - SQ 6 units ACHS [facility] Administration Protocol Insulin Detemir 10 units 08/23/17 22:00 08/23/17 22:40 Levemir Vial SQ 10 units HS [facility] Administration Levothyroxine Sodium 88 mcg 08/21/17 07:00 08/24/17 06:30 Synthroid - PO 88 mcg AM [facility] Administration Pantoprazole Sodium 20 mg 08/21/17 10:00 08/24/17 10:05 Protonix - PO 20 mg DAILY [facility] Administration Polyethylene Glycol 17 gm 08/24/17 22:00 Miralax (For Daily Use) - PO BID [facility] Ranolazine 500 mg 08/20/17 22:00 08/24/17 10:05 Ranexa - PO 500 mg BID [facility] Administration Impression 1. HAROLDO 2. hyponatremia 3. DM uncontrolled 4. hypothyroidism 5. CHF Plan - creatinine is improving - sodium is improving - steroids with taper - repeat labs in am - will give an enema - renal workup in progress Dr Berman
[2017-08-24] MEDS: FUROSEMIDE 40 MG/4 ML INJECTABLE VIAL IVPUSH SCH (14:38)
[2017-08-24] MEDS ORDERED: MINERAL OIL ENEMA 133 ML ENEMA PR ONE (15:00)
[2017-08-24] MEDS: DOCUSATE SODIUM 100 MG CAPSULE (FP) PO SCH (21:53)
[2017-08-24] MEDS: ATORVASTATIN CA 40 MG TABLET (FP) PO SCH (21:54)
[2017-08-24] MEDS: INSULIN DETEMIR 100 UNITS/ML MDV SQ SCH (21:57)
[2017-08-25] MEDS: guaiFENesin/D-METHORPHAN HB 5 ML UNIT-DOSE CUPS PO SCH ×6 (01:27→22:58)
[2017-08-25] MEDS: HEPARIN NA (PORCINE) 5,000 UNITS/ML 1ML VIAL SQ SCH ×3 (06:46→22:59)
[2017-08-25] MEDS: LEVOTHYROXINE NA 88 MCG TABLET (FP) PO SCH (06:46)
[2017-08-25] MEDS: GABAPENTIN 300 MG CAPSULE (FP) PO SCH ×3 (06:46→22:58)
[2017-08-25] MEDS: INSULIN SLIDING SCALE (NOVOLOG) 1 VIAL SQ SCH ×4 (06:47→23:00)
[2017-08-25 08:01] LABS: ANION GAP 4 (8-16); BLOOD UREA NITROGEN 33 mg/dL (7-18); CALCIUM 8.4 mg/dL (8.5-10.1); CHLORIDE 93 mmol/L (98-107); CO2 37 mmol/L (21-32); CREATININE 1.3 mg/dL (0.55-1.02); GLUCOSE,RANDOM 108 mg/dL (74-106); POTASSIUM 4.7 mmol/L (3.5-5.1); SODIUM 134 mmol/L (136-145)
[2017-08-25] MEDS: ALBUTEROL SO4 0.083% IH SOL 2.5 MG/3 ML VIAL.NEB. NEB SCH ×4 (08:08→20:25)
[2017-08-25] MEDS ORDERED: PT OWN MED DRAWER 7, Y5N ONE ×5 (09:41→17:39)
[2017-08-25] MEDS: POLYETHYLENE GLYCOL 3350 119 GM BTL PO SCH ×2 (11:08→23:14)
[2017-08-25] MEDS: FUROSEMIDE 40 MG/4 ML INJECTABLE VIAL IVPUSH SCH (11:08)
[2017-08-25] MEDS: RANOLAZINE E.R. 500 MG TABLET (FP) PO SCH ×2 (11:09→22:58)
[2017-08-25] MEDS: ASPIRIN 81 MG CHEWABLE TABLETS PO SCH (11:09)
[2017-08-25] MEDS: PANTOPRAZOLE 20 MG TABLET (FP) PO SCH (11:09)
[2017-08-25] MEDS: CARVEDILOL 12.5 MG TABLET (FP) PO SCH ×2 (11:09→22:58)
[2017-08-25] MEDS: CEFTRIAXONE 1 G/50 ML PREMIX 50 ML IVPB SCH (11:10)
[2017-08-25] MEDS ORDERED: INSULIN (NOVOLOG) ASPART 100 UNITS/ML 10ML VIAL ONE ×2 (11:32→18:49)
[2017-08-25] MEDS: AZITHROMYCIN IVPB 250 MG in DEXTROSE 5%-WATER - 250 ML IVPB SCH (12:00)
--- NOTE | 2017-08-25 13:15 | PN ---
Progress Note, Physician History of Present Illness: Pt seen and examined at bedside. She is awake and complains of wheezing. - Current Medication List Current Medications: Active Medications Acetaminophen (Tylenol -) 650 mg PO Q6H PRN PRN Reason: FEVER Last Admin: 08/20/17 21:41 Dose: 650 mg Albuterol Sulfate (Ventolin 0.083% Nebulizer Soln -) 1 amp NEB RQID [facility] Last Admin: 08/25/17 11:34 Dose: 1 amp Aspirin (Asa -) 81 mg PO DAILY [facility] Last Admin: 08/25/17 11:09 Dose: 81 mg Atorvastatin Calcium (Lipitor -) 40 mg PO HS [facility] Last Admin: 08/24/17 21:54 Dose: 40 mg Carvedilol (Coreg -) 12.5 mg PO BID [facility] Last Admin: 08/25/17 11:09 Dose: 12.5 mg Docusate Sodium (Colace -) 300 mg PO HS [facility] Last Admin: 08/24/17 21:53 Dose: 300 mg Furosemide (Lasix Injection -) 40 mg IVPUSH DAILY [facility] Last Admin: 08/25/17 11:08 Dose: 40 mg Gabapentin (Neurontin -) 600 mg PO TID [facility] Last Admin: 08/25/17 06:46 Dose: 600 mg Guaifenesin (Guaifenesin Dm Syrup) 10 ml PO Q4HPO [facility] Last Admin: 08/25/17 12:20 Dose: 10 ml Heparin Sodium (Porcine) (Heparin -) 5,000 unit SQ TID [facility] Last Admin: 08/25/17 06:46 Dose: Not Given Azithromycin 250 mg/ Dextrose 250 mls @ 250 mls/hr IVPB DAILY [facility] Last Admin: 08/25/17 12:00 Dose: 250 mls/hr CEFTRIAXONE 1 G/50 ML PREMIX (Ceftriaxone 1 Gm-D5w Bag) 50 mls @ 100 mls/hr IVPB DAILY [facility] Stop: 08/25/17 16:00 Last Admin: 08/25/17 11:10 Dose: 100 mls/hr Ceftriaxone Sodium 1 gm/ (Dextrose) 50 mls @ 100 mls/hr IVPB DAILY [facility] Stop: 08/27/17 10:29 Insulin Aspart (Novolog Vial Sliding Scale -) 1 vial SQ ACHS [facility] PRN Reason: Protocol Last Admin: 08/25/17 12:00 Dose: 6 units Insulin Detemir (Levemir Vial) 10 units SQ HS [facility] Last Admin: 08/24/17 21:57 Dose: 10 units Levothyroxine Sodium (Synthroid -) 88 mcg PO AM [facility] Last Admin: 08/25/17 06:46 Dose: 88 mcg Pantoprazole Sodium (Protonix -) 20 mg PO DAILY [facility] Last Admin: 08/25/17 11:09 Dose: 20 mg Polyethylene Glycol (Miralax (For Daily Use) -) 17 gm PO BID [facility] Last Admin: 08/25/17 11:08 Dose: 17 gm Ranolazine (Ranexa -) 500 mg PO BID [facility] Last Admin: 08/25/17 11:09 Dose: 500 mg - Objective Vital Signs: Vital Signs Temperature 98.9 F 08/25/17 10:00 Pulse Rate 65 08/25/17 10:00 Respiratory Rate 20 08/25/17 10:00 Blood Pressure 124/66 08/25/17 10:00 O2 Sat by Pulse Oximetry (%) 95 08/24/17 21:00 Constitutional: Yes: Calm Eyes: Yes: Conjunctiva Clear HENT: Yes: Atraumatic Neck: Yes: Supple Cardiovascular: Yes: S1, S2 Respiratory: Yes: Wheezes Gastrointestinal: Yes: Soft Genitourinary: Yes: WNL Musculoskeletal: Yes: WNL Edema: No Neurological: Yes: Oriented Psychiatric: Yes: Oriented Labs: CBC, BMP 08/24/17 06:20 08/25/17 06:30 INR, PTT INR 1.03 (0.82-1.09) 08/20/17 08:30 Problem List - Problems (1) UTI (urinary tract infection) Code(s): N39.0 - URINARY TRACT INFECTION, SITE NOT SPECIFIED Qualifiers: Urinary tract infection type: site unspecified Hematuria presence: without hematuria Qualified Code(s): N39.0 - Urinary tract infection, site not specified (2) Hyponatremia Code(s): E87.1 - HYPO-OSMOLALITY AND HYPONATREMIA Assessment/Plan Current Medications Generic Name Dose Route Start Last Admin Trade Name Freq PRN Reason Stop Dose Admin Acetaminophen 650 mg 08/20/17 20:45 08/20/17 21:41 Tylenol - PO 650 mg Q6H PRN Administration FEVER Albuterol Sulfate 1 amp 08/21/17 18:30 08/25/17 11:34 Ventolin 0.083% Nebulizer Soln - NEB 1 amp RQID [facility] Administration Aspirin 81 mg 08/21/17 10:00 08/25/17 11:09 Asa - PO 81 mg DAILY [facility] Administration Atorvastatin Calcium 40 mg 08/20/17 22:00 08/24/17 21:54 Lipitor - PO 40 mg HS [facility] Administration Carvedilol 12.5 mg 08/20/17 22:00 08/25/17 11:09 Coreg - PO 12.5 mg BID [facility] Administration Docusate Sodium 300 mg 08/24/17 22:00 08/24/17 21:53 Colace - PO 300 mg HS [facility] Administration Furosemide 40 mg 08/24/17 14:00 08/25/17 11:08 Lasix Injection - IVPUSH 40 mg DAILY [facility] Administration Gabapentin 600 mg 08/20/17 22:00 08/25/17 06:46 Neurontin - PO 600 mg TID [facility] Administration Guaifenesin 10 ml 08/24/17 11:46 08/25/17 12:20 Guaifenesin Dm Syrup PO 10 ml Q4HPO [facility] Administration Heparin Sodium (Porcine) 5,000 unit 08/20/17 22:00 08/25/17 06:46 Heparin - SQ Not Given TID [facility] Azithromycin 250 mg/ Dextrose 250 mls @ 250 mls/hr 08/21/17 10:00 08/25/17 12 :00 IVPB 250 mls/hr DAILY [facility] Administration CEFTRIAXONE 1 G/50 ML PREMIX 50 mls @ 100 mls/hr 08/21/17 10:00 08/25/17 11: 10 Ceftriaxone 1 Gm-D5w Bag IVPB 08/25/17 16:00 100 mls/hr DAILY [facility] Administration Ceftriaxone Sodium 1 gm/ 50 mls @ 100 mls/hr 08/26/17 10:00 Dextrose IVPB 08/27/17 10:29 DAILY [facility] Insulin Aspart 1 vial 08/21/17 17:12 08/25/17 12:00 Novolog Vial Sliding Scale - SQ 6 units ACHS [facility] Administration Protocol Insulin Detemir 10 units 08/23/17 22:00 08/24/17 21:57 Levemir Vial SQ 10 units HS [facility] Administration Levothyroxine Sodium 88 mcg 08/21/17 07:00 08/25/17 06:46 Synthroid - PO 88 mcg AM [facility] Administration Pantoprazole Sodium 20 mg 08/21/17 10:00 08/25/17 11:09 Protonix - PO 20 mg DAILY [facility] Administration Polyethylene Glycol 17 gm 08/24/17 22:00 08/25/17 11:08 Miralax (For Daily Use) - PO 17 gm BID [facility] Administration Ranolazine 500 mg 08/20/17 22:00 08/25/17 11:09 Ranexa - PO 500 mg BID [facility] Administration Impression 1. HAROLDO 2. hyponatremia 3. DM uncontrolled 4. hypothyroidism 5. CHF 6. COPD Plan - check CXR - hold lasix - repeat labs in am - restart steroids - creatinine is improving - sodium is improving - renal workup in progress Dr Berman
--- NOTE | 2017-08-25 14:02 | PN ---
Physical Exam: SUBJECTIVE: Patient seen and examined at bedside. OBJECTIVE: Vital Signs Period Temp Pulse Resp BP Sys/Ibarra Pulse Ox Last 24 Hr 97.9 F-98.9 F 58-65 18-24 118-150/55-71 95 GENERAL: The patient is awake, alert, and fully oriented, in no acute distress. LUNGS: Diffuse wheezing. HEART: Regular rate and rhythm, S1, S2 without murmur, rub or gallop. ABDOMEN: Soft, nontender, nondistended, normoactive bowel sounds, no guarding, no rebound EXTREMITIES: 2+ pulses, warm, well-perfused, no edema. NEUROLOGICAL: Cranial nerves II through XII grossly intact. Normal speech, gait not observed. Laboratory Results - last 24 hr 08/24/17 08/24/17 08/25/17 17:28 21:41 06:30 Sodium 134 L Potassium 4.7 Chloride 93 L Carbon Dioxide 37 H Anion Gap 4 L BUN 33 H Creatinine 1.3 H POC Glucometer 153 143 Random Glucose 108 H Calcium 8.4 L 08/25/17 08/25/17 06:45 11:15 Sodium Potassium Chloride Carbon Dioxide Anion Gap BUN Creatinine POC Glucometer 109 275 Random Glucose Calcium Active Medications Generic Name Dose Route Start Last Admin Trade Name Freq PRN Reason Stop Dose Admin Acetaminophen 650 mg 08/20/17 20:45 08/20/17 21:41 Tylenol - PO 650 mg Q6H PRN Administration FEVER Albuterol Sulfate 1 amp 08/21/17 18:30 08/25/17 11:34 Ventolin 0.083% Nebulizer Soln - NEB 1 amp RQID [facility] Administration Aspirin 81 mg 08/21/17 10:00 08/25/17 11:09 Asa - PO 81 mg DAILY [facility] Administration Atorvastatin Calcium 40 mg 08/20/17 22:00 08/24/17 21:54 Lipitor - PO 40 mg HS [facility] Administration Carvedilol 12.5 mg 08/20/17 22:00 08/25/17 11:09 Coreg - PO 12.5 mg BID [facility] Administration Docusate Sodium 300 mg 08/24/17 22:00 08/24/17 21:53 Colace - PO 300 mg HS [facility] Administration Gabapentin 600 mg 08/20/17 22:00 08/25/17 13:22 Neurontin - PO 600 mg TID [facility] Administration Guaifenesin 10 ml 08/24/17 11:46 08/25/17 12:20 Guaifenesin Dm Syrup PO 10 ml Q4HPO [facility] Administration Heparin Sodium (Porcine) 5,000 unit 08/20/17 22:00 08/25/17 13:22 Heparin - SQ 5,000 unit TID [facility] Administration Azithromycin 250 mg/ Dextrose 250 mls @ 250 mls/hr 08/21/17 10:00 08/25/17 12 :00 IVPB 250 mls/hr DAILY [facility] Administration CEFTRIAXONE 1 G/50 ML PREMIX 50 mls @ 100 mls/hr 08/21/17 10:00 08/25/17 11: 10 Ceftriaxone 1 Gm-D5w Bag IVPB 08/25/17 16:00 100 mls/hr DAILY [facility] Administration Ceftriaxone Sodium 1 gm/ 50 mls @ 100 mls/hr 08/26/17 10:00 Dextrose IVPB 08/27/17 10:29 DAILY [facility] Insulin Aspart 1 vial 08/21/17 17:12 08/25/17 12:00 Novolog Vial Sliding Scale - SQ 6 units ACHS [facility] Administration Protocol Insulin Detemir 10 units 08/23/17 22:00 08/24/17 21:57 Levemir Vial SQ 10 units HS [facility] Administration Levothyroxine Sodium 88 mcg 08/21/17 07:00 08/25/17 06:46 Synthroid - PO 88 mcg AM [facility] Administration Methylprednisolone Sodium Succinate 40 mg 08/25/17 14:00 Solu-Medrol - IVPUSH Q8H-IV [facility] Pantoprazole Sodium 20 mg 08/21/17 10:00 08/25/17 11:09 Protonix - PO 20 mg DAILY [facility] Administration Polyethylene Glycol 17 gm 08/24/17 22:00 08/25/17 11:08 Miralax (For Daily Use) - PO 17 gm BID [facility] Administration Ranolazine 500 mg 08/20/17 22:00 08/25/17 11:09 Ranexa - PO 500 mg BID [facility] Administration ASSESSMENT/PLAN: 82 year-old female with a PMH significant for HTN, HLD, CAD s/p CABG x 3 (2004) , systolic heart failure, CVA, IDDM, diabetic polyneuropathy, and hypothyroidism. Admitted for acute on chronic systolic heart failure, pneumonia , and UTI. Acute on chronic systolic heart failure --4/2 Echo: LV mild to moderately reduced with severe wall motion hypokinesis ; BLAE; trace MR; mild TR; trace AI --wheezing again today --restart steroids Pneumonia --WBC trending down, afebrile --continue ceftriaxone (day #5) and azithromycin (day #5) --cultures negative to date HAROLDO --Cr 1.1 on admission, peak 1.6, today 1.3 --hold diuretics UTI --urine culture negative Hyponatremia, resolved --corrected Na 134 Hypertension --continue carvedilol, ramipril Hyperlipidemia --continue Lipitor Coronary artery disease h/o CVA --continue ASA, Lipitor, carvedilol, Ranexa IDDM Diabetic polyneuropathy --better control with addition of Levemir 10U qhs --Novolog sliding scale coverage --continue Gabapentin Hypothyroidism --continue levothyroxine FEN Fluids: PO intake adequate Electrolytes: replete as indicated Nutrition: low sodium, diabetic DVT prophylaxis: subq heparin Physical therapy Dispo: continues to require inpatient care. Family agreeable to SNF. Full code. Visit type - Emergency Visit Emergency Visit: Yes ED Registration Date: 08/20/17 Care time: The patient presented to the Emergency Department on the above date and was hospitalized for further evaluation of their emergent condition. - New Patient This patient is new to me today: No - Critical Care Critical Care patient: No
[2017-08-25] MEDS: methylPREDNISolone NA SUCC 40 MG/1 ML VIAL IVPUSH SCH ×2 (14:14→17:42)
[2017-08-25] MEDS: INSULIN DETEMIR 100 UNITS/ML MDV SQ SCH (22:59)
[2017-08-25] MEDS: ATORVASTATIN CA 40 MG TABLET (FP) PO SCH (22:59)
[2017-08-25] MEDS: DOCUSATE SODIUM 100 MG CAPSULE (FP) PO SCH (22:59)
[2017-08-26] MEDS: methylPREDNISolone NA SUCC 40 MG/1 ML VIAL IVPUSH SCH ×2 (02:32→09:50)
[2017-08-26] MEDS: guaiFENesin/D-METHORPHAN HB 5 ML UNIT-DOSE CUPS PO SCH ×6 (02:32→22:25)
[2017-08-26] MEDS: HEPARIN NA (PORCINE) 5,000 UNITS/ML 1ML VIAL SQ SCH ×3 (06:37→22:01)
[2017-08-26] MEDS: LEVOTHYROXINE NA 88 MCG TABLET (FP) PO SCH (06:37)
[2017-08-26] MEDS: GABAPENTIN 300 MG CAPSULE (FP) PO SCH ×3 (06:38→22:00)
[2017-08-26] MEDS: INSULIN SLIDING SCALE (NOVOLOG) 1 VIAL SQ SCH ×4 (06:38→22:24)
[2017-08-26] MEDS: ALBUTEROL SO4 0.083% IH SOL 2.5 MG/3 ML VIAL.NEB. NEB SCH ×2 (08:05→11:55)
[2017-08-26] MEDS ORDERED: PT OWN MED DRAWER 7, Y5N ONE ×2 (09:38→14:58)
[2017-08-26] MEDS: PATIENT'S OWN MEDICATION (NON-FORMULARY) (Econazole Nitrate 1% [Spectazole 1%] 85 GM) TP SCH ×2 (09:43→09:44)
[2017-08-26 09:48] LABS: CHLORIDE 87 mmol/L (98-107); SODIUM 129 mmol/L (136-145)
[2017-08-26] MEDS: CARVEDILOL 12.5 MG TABLET (FP) PO SCH ×2 (09:50→22:00)
[2017-08-26] MEDS: PANTOPRAZOLE 20 MG TABLET (FP) PO SCH (09:50)
[2017-08-26] MEDS: ASPIRIN 81 MG CHEWABLE TABLETS PO SCH (09:50)
[2017-08-26] MEDS: RANOLAZINE E.R. 500 MG TABLET (FP) PO SCH ×2 (09:50→22:01)
[2017-08-26] MEDS: AZITHROMYCIN IVPB 250 MG in DEXTROSE 5%-WATER - 250 ML IVPB SCH (09:51)
[2017-08-26 09:52] LABS: ANION GAP 9 (8-16); BLOOD UREA NITROGEN 34 mg/dL (7-18); CALCIUM 8.8 mg/dL (8.5-10.1); CO2 33 mmol/L (21-32); CREATININE 1.3 mg/dL (0.55-1.02); GLUCOSE,RANDOM 290 mg/dL (74-106)
[2017-08-26 09:55] LABS: POTASSIUM 4.5 mmol/L (3.5-5.1)
[2017-08-26] MEDS: POLYETHYLENE GLYCOL 3350 119 GM BTL PO SCH ×2 (09:59→22:01)
[2017-08-26] MEDS ORDERED: cefTRIAXone SODIUM 1 GM VIAL ONE (12:11)
[2017-08-26] MEDS ORDERED: DEXTROSE 5%-WATER - 50 ML IVPB ONE (12:12)
[2017-08-26] MEDS: CEFTRIAXONE 1 GM in DEXTROSE 5%-WATER - 50 ML IVPB SCH (12:15)
--- NOTE | 2017-08-26 12:45 | PN ---
Physical Exam: SUBJECTIVE: Patient seen and examined. She says her throat hurts and she has difficulty swallowing, ex meat. She also feels acid reflux OBJECTIVE: Vital Signs Period Temp Pulse Resp BP Sys/Ibarra Pulse Ox Last 24 Hr 97.8 F-98.2 F 59-71 20-24 122-150/48-70 96 PE Neuro: alert, awake, cn 2-12intact Pulm: rhohchi, + wheezing CV: s1 s2 rrr Abd: s nt nd + bs ext: warm, no le edema Laboratory Results - last 24 hr 08/26/17 08:00 Sodium 129 L Potassium 4.5 Chloride 87 L Carbon Dioxide 33 H Anion Gap 9 BUN 34 H Creatinine 1.3 H POC Glucometer Random Glucose 290 H Calcium 8.8 Active Medications Generic Name Dose Route Start Last Admin Trade Name Freq PRN Reason Stop Dose Admin Acetaminophen 650 mg 08/20/17 20:45 08/20/17 21:41 Tylenol - PO 650 mg Q6H PRN Administration FEVER Albuterol Sulfate 1 amp 08/21/17 18:30 08/26/17 11:55 Ventolin 0.083% Nebulizer Soln - NEB 1 amp RQID [facility] Administration Aspirin 81 mg 08/21/17 10:00 08/26/17 09:50 Asa - PO 81 mg DAILY [facility] Administration Atorvastatin Calcium 40 mg 08/20/17 22:00 08/25/17 22:59 Lipitor - PO 40 mg HS [facility] Administration Bisacodyl 10 mg 08/26/17 12:38 Dulcolax Suppository - [place] 08/26/17 12:39 ONCE ONE Carvedilol 12.5 mg 08/20/17 22:00 08/26/17 09:50 Coreg - PO 12.5 mg BID [facility] Administration Docusate Sodium 300 mg 08/24/17 22:00 08/25/17 22:59 Colace - PO 300 mg HS [facility] Administration Gabapentin 600 mg 08/20/17 22:00 08/26/17 06:38 Neurontin - PO 600 mg TID [facility] Administration Guaifenesin 10 ml 08/24/17 11:46 08/26/17 12:16 Guaifenesin Dm Syrup PO 10 ml Q4HPO [facility] Administration Heparin Sodium (Porcine) 5,000 unit 08/20/17 22:00 08/26/17 06:37 Heparin - SQ 5,000 unit TID [facility] Administration Azithromycin 250 mg/ Dextrose 250 mls @ 250 mls/hr 08/21/17 10:00 08/26/17 09 :51 IVPB 250 mls/hr DAILY [facility] Administration Ceftriaxone Sodium 1 gm/ 50 mls @ 100 mls/hr 08/26/17 10:00 08/26/17 12:15 Dextrose IVPB 08/27/17 10:29 100 mls/hr DAILY [facility] Administration Insulin Aspart 1 vial 08/21/17 17:12 08/26/17 06:38 Novolog Vial Sliding Scale - SQ 10 units ACHS [facility] Administration Protocol Insulin Aspart 15 units 08/26/17 12:37 Novolog Vial SQ 08/26/17 12:38 ONCE ONE Protocol Insulin Detemir 10 units 08/23/17 22:00 08/25/17 22:59 Levemir Vial SQ 10 units HS [facility] Administration Levothyroxine Sodium 88 mcg 08/21/17 07:00 08/26/17 06:37 Synthroid - PO 88 mcg AM [facility] Administration Magnesium Hydroxide 30 ml 08/26/17 12:38 Milk Of Magnesia - PO 08/26/17 12:39 ONCE ONE Methylprednisolone Sodium Succinate 40 mg 08/25/17 14:00 08/26/17 09:50 Solu-Medrol - IVPUSH 40 mg Q8H-IV [facility] Administration Pantoprazole Sodium 40 mg 08/26/17 12:39 Protonix - PO DAILY [facility] Polyethylene Glycol 17 gm 08/24/17 22:00 08/26/17 09:59 Miralax (For Daily Use) - PO 17 gm BID [facility] Administration Ranolazine 500 mg 08/20/17 22:00 08/26/17 09:50 Ranexa - PO 500 mg BID [facility] Administration Imaging: - 08/23 Echo: LV mild to moderately reduced with severe wall motion hypokinesis; BLAE; trace MR; mild TR; trace AI Assessment: 82 year old female with a PMH significant for HTN, HLD, CAD s/p CABG x 3 (2004), systolic heart failure, CVA, IDDM, diabetic polyneuropathy, and hypothyroidism. Admitted for acute on chronic systolic heart failure, pneumonia, and UTI. Plan: 1. Acute on chronic systolic heart failure - Restarted steroids yesterday, auditory wheezing continues 2. Community acquired pneumonia - Completes 8 days ceftriaxone/ azithro tomorrow - Start spirivia 3. HAROLDO - Cr stable ~1.3 4. UTI - Urine culture negative 5. Hyponatremia - Corrected Na 134 6. Hypertension - Continue carvedilol, ramipril 7. Hyperlipidemia - Continue Lipitor 8. Coronary artery disease, h/o CVA - ASA, Lipitor, carvedilol, Ranexa 9. DM II - Sugars elevated, however steroids restarted - Levemir 10U qhs - ISS, BGM ACHS 10. Diabetic polyneuropathy - Continue Gabapentin 11. Hypothyroidism - Continue levothyroxine 12. Dysphagia - Speech and swallow consulted 13. Constipation - Give MOM, Ducolax [place] Dispo: continues to require inpatient care. Family agreeable to SNF. Full code. Visit type - Emergency Visit Emergency Visit: Yes ED Registration Date: 08/20/17 Care time: The patient presented to the Emergency Department on the above date and was hospitalized for further evaluation of their emergent condition. - New Patient This patient is new to me today: No - Critical Care Critical Care patient: No
[2017-08-26] MEDS ORDERED: INSULIN (NOVOLOG) ASPART 100 UNITS/ML 10ML VIAL SQ ONE (13:00)
[2017-08-26] MEDS ORDERED: MAGNESIUM HYDROX 2400MG/30ML ORAL SUSPENSION 30 ML CUP PO ONE (13:00)
[2017-08-26] MEDS ORDERED: BISACODYL 10 MG SUPP.RECT RC ONE (13:00)
[2017-08-26] MEDS: TIOTROPIUM BROMIDE 18 MCG CAPSULES IH SCH (14:26)
--- NOTE | 2017-08-26 16:27 | PN ---
Progress Note, Physician History of Present Illness: Pt seen and examined at bedside. She is awake and alert. She complains of a sore throat and a dry mouth. She denies chest pain. - Current Medication List Current Medications: Active Medications Acetaminophen (Tylenol -) 650 mg PO Q6H PRN PRN Reason: FEVER Last Admin: 08/20/17 21:41 Dose: 650 mg Aspirin (Asa -) 81 mg PO DAILY [facility] Last Admin: 08/26/17 09:50 Dose: 81 mg Atorvastatin Calcium (Lipitor -) 40 mg PO HS [facility] Last Admin: 08/25/17 22:59 Dose: 40 mg Budesonide/Formoterol Fumarate (Symbicort 160/4.5mcg -) 1 puff IH BID [facility] Carvedilol (Coreg -) 12.5 mg PO BID [facility] Last Admin: 08/26/17 09:50 Dose: 12.5 mg Docusate Sodium (Colace -) 300 mg PO [facility] Last Admin: 08/25/17 22:59 Dose: 300 mg Gabapentin (Neurontin -) 600 mg PO TID [facility] Last Admin: 08/26/17 14:47 Dose: 600 mg Guaifenesin (Guaifenesin Dm Syrup) 10 ml PO Q4HPO [facility] Last Admin: 08/26/17 14:27 Dose: 10 ml Heparin Sodium (Porcine) (Heparin -) 5,000 unit SQ TID [facility] Last Admin: 08/26/17 14:27 Dose: 5,000 unit Azithromycin 250 mg/ Dextrose 250 mls @ 250 mls/hr IVPB DAILY [facility] Last Admin: 08/26/17 09:51 Dose: 250 mls/hr Ceftriaxone Sodium 1 gm/ (Dextrose) 50 mls @ 100 mls/hr IVPB DAILY [facility] Stop: 08/27/17 10:29 Last Admin: 08/26/17 12:15 Dose: 100 mls/hr Insulin Aspart (Novolog Vial Sliding Scale -) 1 vial SQ ACHS [facility] PRN Reason: Protocol Last Admin: 08/26/17 13:27 Dose: Not Given Insulin Detemir (Levemir Vial) 15 units SQ HS [facility] Levothyroxine Sodium (Synthroid -) 88 mcg PO AM [facility] Last Admin: 08/26/17 06:37 Dose: 88 mcg Methylprednisolone Sodium Succinate (Solu-Medrol -) 40 mg IVPUSH Q8H-IV [facility] Last Admin: 08/26/17 09:50 Dose: 40 mg Pantoprazole Sodium (Protonix -) 40 mg PO DAILY [facility] Polyethylene Glycol (Miralax (For Daily Use) -) 17 gm PO BID [facility] Last Admin: 08/26/17 09:59 Dose: 17 gm Ranolazine (Ranexa -) 500 mg PO BID [facility] Last Admin: 08/26/17 09:50 Dose: 500 mg Tiotropium [place] (Spiriva -) 1 puff IH DAILY [facility] Last Admin: 08/26/17 14:26 Dose: 1 puff - Objective Vital Signs: Vital Signs Temperature 97.9 F 08/26/17 14:26 Pulse Rate 64 08/26/17 14:26 Respiratory Rate 22 08/26/17 14:26 Blood Pressure 107/54 08/26/17 14:26 O2 Sat by Pulse Oximetry (%) 96 08/25/17 21:00 Constitutional: Yes: Calm Eyes: Yes: Conjunctiva Clear HENT: Yes: Atraumatic Cardiovascular: Yes: S1, S2 Respiratory: Yes: On Nasal O2, Wheezes Gastrointestinal: Yes: Soft, Abdomen, Obese Genitourinary: Yes: WNL Musculoskeletal: Yes: Muscle Weakness Edema: No Neurological: Yes: Oriented Psychiatric: Yes: Oriented Labs: CBC, BMP 08/24/17 06:20 08/26/17 08:00 INR, PTT INR 1.03 (0.82-1.09) 08/20/17 08:30 - ....Imaging Chest X-ray: Report Reviewed Problem List - Problems (1) UTI (urinary tract infection) Code(s): N39.0 - URINARY TRACT INFECTION, SITE NOT SPECIFIED Qualifiers: Urinary tract infection type: site unspecified Hematuria presence: without hematuria Qualified Code(s): N39.0 - Urinary tract infection, site not specified (2) Hyponatremia Code(s): E87.1 - HYPO-OSMOLALITY AND HYPONATREMIA Assessment/Plan Current Medications Generic Name Dose Route Start Last Admin Trade Name Freq PRN Reason Stop Dose Admin Acetaminophen 650 mg 08/20/17 20:45 08/20/17 21:41 Tylenol - PO 650 mg Q6H PRN Administration FEVER Aspirin 81 mg 08/21/17 10:00 08/26/17 09:50 Asa - PO 81 mg DAILY [facility] Administration Atorvastatin Calcium 40 mg 08/20/17 22:00 08/25/17 22:59 Lipitor - PO 40 mg HS [facility] Administration Budesonide/Formoterol Fumarate 1 puff 08/26/17 22:00 Symbicort 160/4.5mcg - IH BID [facility] Carvedilol 12.5 mg 08/20/17 22:00 08/26/17 09:50 Coreg - PO 12.5 mg BID [facility] Administration Docusate Sodium 300 mg 08/24/17 22:00 08/25/17 22:59 Colace - PO 300 mg HS [facility] Administration Gabapentin 600 mg 08/20/17 22:00 08/26/17 14:47 Neurontin - PO 600 mg TID [facility] Administration Guaifenesin 10 ml 08/24/17 11:46 08/26/17 14:27 Guaifenesin Dm Syrup PO 10 ml Q4HPO [facility] Administration Heparin Sodium (Porcine) 5,000 unit 08/20/17 22:00 08/26/17 14:27 Heparin - SQ 5,000 unit TID [facility] Administration Azithromycin 250 mg/ Dextrose 250 mls @ 250 mls/hr 08/21/17 10:00 08/26/17 09 :51 IVPB 250 mls/hr DAILY [facility] Administration Ceftriaxone Sodium 1 gm/ 50 mls @ 100 mls/hr 08/26/17 10:00 08/26/17 12:15 Dextrose IVPB 08/27/17 10:29 100 mls/hr DAILY [facility] Administration Insulin Aspart 1 vial 08/21/17 17:12 08/26/17 13:27 Novolog Vial Sliding Scale - SQ Not Given [facility] Protocol Insulin Detemir 15 units 08/26/17 22:00 Levemir Vial SQ [facility] Levothyroxine Sodium 88 mcg 08/21/17 07:00 08/26/17 06:37 Synthroid - PO 88 mcg AM [facility] Administration Methylprednisolone Sodium Succinate 40 mg 08/25/17 14:00 08/26/17 09:50 Solu-Medrol - IVPUSH 40 mg Q8H-IV [facility] Administration Pantoprazole Sodium 40 mg 08/27/17 10:00 Protonix - PO DAILY [facility] Polyethylene Glycol 17 gm 08/24/17 22:00 08/26/17 09:59 Miralax (For Daily Use) - PO 17 gm BID [facility] Administration Ranolazine 500 mg 08/20/17 22:00 08/26/17 09:50 Ranexa - PO 500 mg BID [facility] Administration Tiotropium [place] 1 puff 08/26/17 13:00 08/26/17 14:26 Spiriva - IH 1 puff DAILY [facility] Administration Impression 1. HAROLDO 2. hyponatremia 3. DM uncontrolled 4. hypothyroidism 5. CHF 6. COPD Plan - cont steroids, lung sounds are improved today - pulm eval - cxr reviewed - will hold off IV lasix today - will need better glucose control - will follow - renal workup in progress Dr Berman
[2017-08-26] MEDS ORDERED: INSULIN (NOVOLOG) ASPART 100 UNITS/ML 10ML VIAL ONE ×2 (17:23→17:44)
[2017-08-26] MEDS: DOCUSATE SODIUM 100 MG CAPSULE (FP) PO SCH (21:59)
[2017-08-26] MEDS ORDERED: INSULIN DETEMIR 100 UNITS/ML MDV SQ SCH (22:00)
[2017-08-26] MEDS: ATORVASTATIN CA 40 MG TABLET (FP) PO SCH (22:00)
[2017-08-26] MEDS ORDERED: methylPREDNISolone NA SUCC 40 MG/1 ML VIAL IVPUSH SCH (22:00)
[2017-08-26] MEDS: BUDESONIDE/FORMETEROL FUMARATE 160/4.5 mcg INHALER IH SCH (22:23)
[2017-08-27] MEDS: guaiFENesin/D-METHORPHAN HB 5 ML UNIT-DOSE CUPS PO SCH ×6 (03:03→21:25)
[2017-08-27] MEDS: HEPARIN NA (PORCINE) 5,000 UNITS/ML 1ML VIAL SQ SCH ×3 (06:34→21:25)
[2017-08-27] MEDS: LEVOTHYROXINE NA 88 MCG TABLET (FP) PO SCH (06:34)
[2017-08-27] MEDS: GABAPENTIN 300 MG CAPSULE (FP) PO SCH ×3 (06:34→21:22)
[2017-08-27] MEDS: INSULIN SLIDING SCALE (NOVOLOG) 1 VIAL SQ SCH ×4 (06:35→21:27)
--- NOTE | 2017-08-27 09:52 | PN ---
Physical Exam: SUBJECTIVE: Patient seen and examined. She is tried, did not sleep all night. She had a small bowel movement. OBJECTIVE: Vital Signs Period Temp Pulse Resp BP Sys/Ibarra Pulse Ox Last 24 Hr 97.6 F-98.4 F 58-64 20-22 107-153/54-82 92 PE Neuro: alert, awake, cn 2-12intact Pulm: no wheezing, + non productive cough, basilar rhonchi course bs CV: s1 s2 rrr Abd: s nt nd + bs ext: warm, no le edema Laboratory Results - last 24 hr 08/26/17 08/26/17 08/26/17 08:00 12:29 17:06 Sodium 129 L Potassium 4.5 Chloride 87 L Carbon Dioxide 33 H Anion Gap 9 BUN 34 H Creatinine 1.3 H POC Glucometer 432 338 Random Glucose 290 H Calcium 8.8 08/26/17 08/27/17 22:05 05:30 Sodium Potassium Chloride Carbon Dioxide Anion Gap BUN Creatinine POC Glucometer 318 290 Random Glucose Calcium Active Medications Generic Name Dose Route Start Last Admin Trade Name Freq PRN Reason Stop Dose Admin Acetaminophen 650 mg 08/20/17 20:45 08/20/17 21:41 Tylenol - PO 650 mg Q6H PRN Administration FEVER Aspirin 81 mg 08/21/17 10:00 08/26/17 09:50 Asa - PO 81 mg DAILY [facility] Administration Atorvastatin Calcium 40 mg 08/20/17 22:00 08/26/17 22:00 Lipitor - PO 40 mg HS [facility] Administration Budesonide/Formoterol Fumarate 1 puff 08/26/17 22:00 08/26/17 22:23 Symbicort 160/4.5mcg - IH 1 puff BID [facility] Administration Carvedilol 12.5 mg 08/20/17 22:00 08/26/17 22:00 Coreg - PO 12.5 mg BID [facility] Administration Docusate Sodium 300 mg 08/24/17 22:00 08/26/17 21:59 Colace - PO 300 mg HS [facility] Administration Gabapentin 600 mg 08/20/17 22:00 08/27/17 06:34 Neurontin - PO 600 mg TID [facility] Administration Guaifenesin 10 ml 08/24/17 11:46 08/27/17 06:35 Guaifenesin Dm Syrup PO 10 ml Q4HPO [facility] Administration Heparin Sodium (Porcine) 5,000 unit 08/20/17 22:00 08/27/17 06:34 Heparin - SQ 5,000 unit TID [facility] Administration Azithromycin 250 mg/ Dextrose 250 mls @ 250 mls/hr 08/21/17 10:00 08/26/17 09 :51 IVPB 250 mls/hr DAILY [facility] Administration Ceftriaxone Sodium 1 gm/ 50 mls @ 100 mls/hr 08/26/17 10:00 08/26/17 12:15 Dextrose IVPB 08/27/17 10:29 100 mls/hr DAILY [facility] Administration Insulin Aspart 1 vial 08/21/17 17:12 08/27/17 06:35 Novolog Vial Sliding Scale - SQ 6 units ACHS [facility] Administration Protocol Insulin Detemir 15 units 08/26/17 22:00 08/26/17 22:24 Levemir Vial SQ 15 units HS [facility] Administration Levothyroxine Sodium 88 mcg 08/21/17 07:00 08/27/17 06:34 Synthroid - PO 88 mcg AM [facility] Administration Methylprednisolone Sodium Succinate 40 mg 08/26/17 22:00 08/26/17 22:02 Solu-Medrol - IVPUSH 40 mg BID [facility] Administration Pantoprazole Sodium 40 mg 08/27/17 10:00 Protonix - PO DAILY [facility] Polyethylene Glycol 17 gm 08/24/17 22:00 08/26/17 22:01 Miralax (For Daily Use) - PO 17 gm BID [facility] Administration Ranolazine 500 mg 08/20/17 22:00 08/26/17 22:01 Ranexa - PO 500 mg BID [facility] Administration Tiotropium [place] 1 puff 08/26/17 13:00 08/26/17 14:26 Spiriva - IH 1 puff DAILY [facility] Administration Imaging: - 08/23 Echo: LV mild to moderately reduced with severe wall motion hypokinesis; BLAE; trace MR; mild TR; trace AI Assessment: 82 year old female with a PMH significant for HTN, HLD, CAD s/p CABG x 3 (2004), systolic heart failure, CVA, IDDM, diabetic polyneuropathy, and hypothyroidism. Admitted for acute on chronic systolic heart failure, pneumonia, and UTI. Plan: 1. Acute on chronic systolic heart failure - Continues to use supplemental o2 - Taper steroids 40mg daily today - Pulm consulted 2. Community acquired pneumonia - Complete 8 day course azithro/ceftriaxone today - Spirivia 3. HAROLDO - Cr stable ~1.3 4. UTI - Urine culture negative 5. Hyponatremia - Corrected Na wnl 6. Hypertension - Continue carvedilol, ramipril 7. Hyperlipidemia - Continue Lipitor 8. Coronary artery disease, h/o CVA - ASA, Lipitor, carvedilol, Ranexa 9. DM II - Sugars elevated, however steroids restarted - Levemir 10U qhs - ISS, BGM ACHS 10. Diabetic polyneuropathy - Continue Gabapentin 11. Hypothyroidism - Continue levothyroxine 12. Dysphagia - Speech and swallow consulted 13. Constipation - Give additional dose MOM Dispo: continues to require inpatient care. Family agreeable to SNF. Full code. Visit type - Emergency Visit Emergency Visit: Yes ED Registration Date: 08/20/17 Care time: The patient presented to the Emergency Department on the above date and was hospitalized for further evaluation of their emergent condition. - New Patient This patient is new to me today: No - Critical Care Critical Care patient: No
--- NOTE | 2017-08-27 10:11 | CONSULT ---
Admitting History and Physical - Primary Care Physician PCP: Zonia Nelson - Admission History of Present Illness: 82 year-old female with a PMH significant for HTN, HLD, CAD s/p CABG x 3 (2004) , systolic heart failure, CVA, IDDM, diabetic polyneuropathy, and hypothyroidism. Admitted for acute on chronic systolic heart failure, pneumonia , and UTI. Patient with productive cough, antibiotics continued, o2 2l via nc in use Selected Entries 08/26/17 08/26/17 08/26/17 06:00 08:41 09:20 Breakfast 100% Lunch Supper Temperature 98.0 F 98.2 F 08/26/17 08/26/17 08/26/17 14:26 18:00 18:35 Breakfast Lunch 75% Supper 75% Temperature 97.9 F 97.6 F 08/27/17 06:00 Breakfast Lunch Supper Temperature 98.4 F Laboratory Tests 08/23/17 08/24/17 07:46 06:20 WBC 12.7 H 12.4 H Pt reports difficulty with solids sticking in her chest, food coming back up. This began 2 mths ago. She also reports choking with liquids and throat/upper chest pain while swallowing. She denies vomiting or needing to regurgitate food. She says she has not been evaluated by GI in the past. 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) Endocrine: Yes: Diabetes Mellitus, Hypothyroidism - Smoking History Smoking history: Never smoked Have you smoked in the past 12 months: No Aproximately how many cigarettes per day: 0 - Alcohol/Substance Use Hx Alcohol Use: No History - Admission Reason For Visit: UTI; ACUTE ON CHRONIC CHF - Diagnostics X-ray: Report Reviewed - General Mental Status: Alert and Oriented, Awake and Alert, Able to Follow Commands Attention: Intact Ability to Follow Directions: Excellent Head/Neck Control: WFL - Hearing Hearing: Normal Hearing Aide: No With Patient: No Speech Evaluation - Communication Primary Language: [place] Communication: Yes: Within Normal Limits Oral Expression Ability: Yes: No Impairment - Speech Production Able to Make Needs Known: Yes: WNL Intelligibility: Yes: WNL - Speech Characteristics Voice Loudness: Normal Voice Pitch: Yes: Normal Voice Phonatory-based Quality: Yes: Dysphonia (possibly sec to frequent cough) Speech Pattern: Normal Speech Clarity: < 100% Nasal Resonance: Normal Articulation: Yes: Precise Rate of Speech: Intact - Language/Auditory Comprehension Follows: Yes: 2 Stage Simple Commands - Language/Verbal Expression Able to Respond to Simple Queries: Yes: WNL Able to Communicate Wants and Needs: Yes: WNL Functional Communication Status: Yes: WNL - Memory/Perception senior living Memory: Yes: WNL Short Term Memory: Yes: WNL - Swallow Evaluation/Bedside Assessment Current Nutritional Intake: Regular, Thin Liquids Oral Secretions: Yes: WFL Dentition: Yes: Adequate Facial Symmetry at Rest: Symmetrical Facial Symmetry on Retraction: Symmetrical Facial Movement: Controlled Sensation: Normal Against Resistance Opening: Normal Against Resistance Closing: Normal Pucker Lips: Normal Smile: Normal Lingual Movement: Normal, Symmetric Lingual Speed of Movement: Normal Lingual Movement Strgth Against Opposition: Normal Lingual Movement Characteristics: Normal Velopharyngeal Movement: Normal Laryngeal Elevation: WFL Laryngeal Movement: Able to Palpate Rate of Intake: WFL Bolus Size: WFL Labial Seal: WFL Chewing: WFL Oral Prep Time: WFL A-P Transit: WFL Pocketing: None Timing of Swallow: WFL Odynophagia: Pharyngeal Coughing/Throat Clear: No Change in Voice: No Recommendations - Speech Evaluation, Impression/Plan Impression: r/o esophageal dysphagia - Dysphagia Impressions/Plan Dysphagia Impressions: Ongoing Evaluation *Silent aspiration: cannot be R/O at bedside Recommendations: MBS chantal Esophagus
[2017-08-27] MEDS ORDERED: PT OWN MED DRAWER 7, Y5N ONE ×2 (10:21→17:30)
[2017-08-27] MEDS: TIOTROPIUM BROMIDE 18 MCG CAPSULES IH SCH (10:46)
[2017-08-27] MEDS: RANOLAZINE E.R. 500 MG TABLET (FP) PO SCH ×2 (10:47→21:22)
[2017-08-27] MEDS: methylPREDNISolone NA SUCC 40 MG/1 ML VIAL IVPUSH SCH (10:47)
[2017-08-27] MEDS: PANTOPRAZOLE 40 MG TABLET (FP) PO SCH (10:47)
[2017-08-27] MEDS: BUDESONIDE/FORMETEROL FUMARATE 160/4.5 mcg INHALER IH SCH ×2 (10:47→21:26)
[2017-08-27] MEDS: ASPIRIN 81 MG CHEWABLE TABLETS PO SCH (10:47)
[2017-08-27] MEDS: CARVEDILOL 12.5 MG TABLET (FP) PO SCH ×2 (10:47→21:23)
[2017-08-27] MEDS: POLYETHYLENE GLYCOL 3350 119 GM BTL PO SCH ×2 (12:12→21:27)
[2017-08-27] MEDS: CEFTRIAXONE 1 GM in DEXTROSE 5%-WATER - 50 ML IVPB SCH (12:13)
[2017-08-27 13:15] LABS: ANION GAP 13 (8-16); BLOOD UREA NITROGEN 43 mg/dL (7-18); CALCIUM 8.6 mg/dL (8.5-10.1); CHLORIDE 82 mmol/L (98-107); CO2 30 mmol/L (21-32); CREATININE 1.4 mg/dL (0.55-1.02); POTASSIUM 5.4 mmol/L (3.5-5.1)
[2017-08-27 13:20] LABS: GLUCOSE,RANDOM 425 mg/dL (74-106); SODIUM 125 mmol/L (136-145)
--- NOTE | 2017-08-27 15:29 | CONSULT ---
Consult Consult Specialty:: Endocrinology Referred by:: Lilli Nelson Reason for Consultation:: Hyperglycemia - History of Present Illness Chief Complaint: SOB History of Present Illness: This is an 82 y/o F with history of hypertension, hyperlipidemia, CAD status post CABG 3, T2DM for about 40 years, on Insulin for about 20, CVA, CHF who presents to emergency department with 3 days of dysuria, body aches and cough. Patient reports pleuritic chest pain while coughing and states increasing shortness of breath. FS at home 200s, No hypos. 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) Endocrine: Yes: Diabetes Mellitus, Hypothyroidism - Alcohol/Substance Use Hx Alcohol Use: No - Smoking History Smoking history: Never smoked Have you smoked in the past 12 months: No Aproximately how many cigarettes per day: 0 Home Medications - Allergies Allergies/Adverse Reactions: Allergies Allergy/AdvReac Type Severity Reaction Status Date / Time No Known Drug Allergies Allergy Verified 08/20/17 07:07 - Home Medications Home Medications: Ambulatory Orders Acetaminophen [Tylenol -] 500 mg PO BID 08/20/17 Aspirin [ASA -] 81 mg PO DAILY 08/20/17 Atorvastatin Ca [Lipitor] 40 mg PO HS 08/20/17 Atorvastatin Ca [Lipitor] 40 mg PO HS 08/20/17 Carvedilol [Coreg -] 12.5 mg PO BID 08/20/17 Carvedilol [Coreg -] 12.5 mg PO BID 08/20/17 Gabapentin [Neurontin] 600 mg PO TID 08/20/17 Guaifenesin Dm [Robitussin Dm -] 10 ml PO Q4H PRN 08/20/17 Insulin Aspart Prot/Insuln Asp [Novolog Mix 70-30 Flexpen Syrn] 40 unit SQ BID 08/20/17 Levothyroxine [Synthroid -] 88 mcg PO DAILY 08/20/17 Omeprazole 20 mg PO DAILY 08/20/17 Polyethylene Glycol 3350 [Miralax (For Daily Use) -] 17 gm PO DAILY 08/20/17 Ramipril 2.5 mg PO DAILY 08/20/17 Ranolazine [Ranexa] 500 mg PO BID 08/20/17 Review of Systems - Review of Systems Constitutional: reports: No Symptoms Eyes: reports: Blurred Vision HENT: reports: No Symptoms Neck: reports: No Symptoms Cardiovascular: reports: Shortness of Breath Respiratory: reports: SOB Gastrointestinal: reports: No Symptoms Genitourinary: reports: Dysuria Musculoskeletal: reports: Back Pain Integumentary: reports: No Symptoms Endocrine: reports: No Symptoms Hematology/Lymphatic: reports: No Symptoms Physical Exam Vital Signs: Vital Signs Temperature 97.8 F 08/27/17 10:00 Pulse Rate 62 08/27/17 10:00 Respiratory Rate 20 08/27/17 10:00 Blood Pressure 125/52 08/27/17 10:00 O2 Sat by Pulse Oximetry (%) 92 L 08/26/17 21:00 Constitutional: Yes: No Distress, Calm Eyes: Yes: Conjunctiva Clear, EOM Intact HENT: Yes: Atraumatic, Normocephalic Neck: Yes: Supple, Trachea Midline Cardiovascular: Yes: Regular Rate and Rhythm Respiratory: Yes: Regular, CTA Bilaterally Gastrointestinal: Yes: Normal Bowel Sounds, Soft Extremities: Yes: WNL Edema: No Neurological: Yes: Alert, Oriented Labs: CBC, BMP 08/24/17 06:20 08/27/17 12:20 Assessment/Plan A/P T2DM: uncontrolled CHF Pneumonia HAROLDO UTI Hyponatremia HTN HLD CAD Neuropathy Hypothyroidism: TSH 0.67 BGM QACHS Increase Levemir 18 units daily Change Novolog Coverage Nutrition consult Methylprednisolone Levothyroxine
--- NOTE | 2017-08-27 17:21 | PN ---
Progress Note, Physician History of Present Illness: Pt seen and examined at bedside. She feels that her breathing is better today. - Current Medication List Current Medications: Active Medications Acetaminophen (Tylenol -) 650 mg PO Q6H PRN PRN Reason: FEVER Last Admin: 08/20/17 21:41 Dose: 650 mg Aspirin (Asa -) 81 mg PO DAILY [facility] Last Admin: 08/27/17 10:47 Dose: 81 mg Atorvastatin Calcium (Lipitor -) 40 mg PO [facility] Last Admin: 08/26/17 22:00 Dose: 40 mg Budesonide/Formoterol Fumarate (Symbicort 160/4.5mcg -) 1 puff IH BID [facility] Last Admin: 08/27/17 10:47 Dose: 1 puff Carvedilol (Coreg -) 12.5 mg PO BID [facility] Last Admin: 08/27/17 10:47 Dose: 12.5 mg Docusate Sodium (Colace -) 300 mg PO [facility] Last Admin: 08/26/17 21:59 Dose: 300 mg Gabapentin (Neurontin -) 600 mg PO TID [facility] Last Admin: 08/27/17 15:02 Dose: 600 mg Guaifenesin (Guaifenesin Dm Syrup) 10 ml PO Q4HPO [facility] Last Admin: 08/27/17 15:01 Dose: 10 ml Heparin Sodium (Porcine) (Heparin -) 5,000 unit SQ TID [facility] Last Admin: 08/27/17 15:02 Dose: 5,000 unit Insulin Aspart (Novolog Vial Sliding Scale -) 1 vial SQ HS [facility] PRN Reason: Protocol Insulin Aspart (Novolog Vial Sliding Scale -) 1 vial SQ TIDAC [facility] PRN Reason: Protocol Last Admin: 08/27/17 16:55 Dose: 12 units Insulin Detemir (Levemir Vial) 18 units SQ HS [facility] Levothyroxine Sodium (Synthroid -) 88 mcg PO AM [facility] Last Admin: 08/27/17 06:34 Dose: 88 mcg Methylprednisolone Sodium Succinate (Solu-Medrol -) 40 mg IVPUSH DAILY [facility] Last Admin: 08/27/17 10:47 Dose: 40 mg Pantoprazole Sodium (Protonix -) 40 mg PO DAILY [facility] Last Admin: 08/27/17 10:47 Dose: 40 mg Polyethylene Glycol (Miralax (For Daily Use) -) 17 gm PO BID [facility] Last Admin: 08/27/17 12:12 Dose: 17 gm Ranolazine (Ranexa -) 500 mg PO BID [facility] Last Admin: 08/27/17 10:47 Dose: 500 mg Tiotropium [place] (Spiriva -) 1 puff IH DAILY [facility] Last Admin: 08/27/17 10:46 Dose: 1 puff - Objective Vital Signs: Vital Signs Temperature 98.0 F 08/27/17 14:34 Pulse Rate 57 L 08/27/17 14:34 Respiratory Rate 22 08/27/17 14:34 Blood Pressure 138/55 08/27/17 14:34 O2 Sat by Pulse Oximetry (%) 92 L 08/26/17 21:00 Constitutional: Yes: Calm Eyes: Yes: Conjunctiva Clear HENT: Yes: Atraumatic Cardiovascular: Yes: S1, S2 Respiratory: Yes: On Nasal O2, Wheezes Gastrointestinal: Yes: Soft Genitourinary: Yes: WNL Musculoskeletal: Yes: WNL Edema: No Neurological: Yes: Oriented Psychiatric: Yes: Oriented Labs: CBC, BMP 08/24/17 06:20 08/27/17 12:20 INR, PTT INR 1.03 (0.82-1.09) 08/20/17 08:30 - ....Imaging Chest X-ray: Report Reviewed Problem List - Problems (1) UTI (urinary tract infection) Code(s): N39.0 - URINARY TRACT INFECTION, SITE NOT SPECIFIED Qualifiers: Urinary tract infection type: site unspecified Hematuria presence: without hematuria Qualified Code(s): N39.0 - Urinary tract infection, site not specified (2) Hyponatremia Code(s): E87.1 - HYPO-OSMOLALITY AND HYPONATREMIA Assessment/Plan Current Medications Generic Name Dose Route Start Last Admin Trade Name Freq PRN Reason Stop Dose Admin Acetaminophen 650 mg 08/20/17 20:45 08/20/17 21:41 Tylenol - PO 650 mg Q6H PRN Administration FEVER Aspirin 81 mg 08/21/17 10:00 08/27/17 10:47 Asa - PO 81 mg DAILY [facility] Administration Atorvastatin Calcium 40 mg 08/20/17 22:00 08/26/17 22:00 Lipitor - PO 40 mg HS [facility] Administration Budesonide/Formoterol Fumarate 1 puff 08/26/17 22:00 08/27/17 10:47 Symbicort 160/4.5mcg - IH 1 puff BID [facility] Administration Carvedilol 12.5 mg 08/20/17 22:00 08/27/17 10:47 Coreg - PO 12.5 mg BID [facility] Administration Docusate Sodium 300 mg 08/24/17 22:00 08/26/17 21:59 Colace - PO 300 mg HS [facility] Administration Gabapentin 600 mg 08/20/17 22:00 08/27/17 15:02 Neurontin - PO 600 mg TID [facility] Administration Guaifenesin 10 ml 08/24/17 11:46 08/27/17 15:01 Guaifenesin Dm Syrup PO 10 ml Q4HPO [facility] Administration Heparin Sodium (Porcine) 5,000 unit 08/20/17 22:00 08/27/17 15:02 Heparin - SQ 5,000 unit TID [facility] Administration Insulin Aspart 1 vial 08/27/17 22:00 Novolog Vial Sliding Scale - SQ HS [facility] Protocol Insulin Aspart 1 vial 08/27/17 16:30 08/27/17 16:55 Novolog Vial Sliding Scale - SQ 12 units TIDAC [facility] Administration Protocol Insulin Detemir 18 units 08/27/17 22:00 Levemir Vial SQ HS [facility] Levothyroxine Sodium 88 mcg 08/21/17 07:00 08/27/17 06:34 Synthroid - PO 88 mcg AM [facility] Administration Methylprednisolone Sodium Succinate 40 mg 08/27/17 10:00 08/27/17 10:47 Solu-Medrol - IVPUSH 40 mg DAILY [facility] Administration Pantoprazole Sodium 40 mg 08/27/17 10:00 08/27/17 10:47 Protonix - PO 40 mg DAILY [facility] Administration Polyethylene Glycol 17 gm 08/24/17 22:00 08/27/17 12:12 Miralax (For Daily Use) - PO 17 gm BID [facility] Administration Ranolazine 500 mg 08/20/17 22:00 08/27/17 10:47 Ranexa - PO 500 mg BID [facility] Administration Tiotropium [place] 1 puff 08/26/17 13:00 08/27/17 10:46 Spiriva - IH 1 puff DAILY [facility] Administration Impression 1. HAROLDO 2. hyponatremia 3. DM uncontrolled 4. hypothyroidism 5. CHF 6. COPD 7. hyperkalemia Plan - will need better glucose control - hold off lasix for now - cxr reviewed - steroids with taper as tolerated - discussed with medical team - repeat potassium level Dr Berman
[2017-08-27 20:16] LABS: ANION GAP 7 (8-16); BLOOD UREA NITROGEN 42 mg/dL (7-18); CALCIUM 8.5 mg/dL (8.5-10.1); CHLORIDE 89 mmol/L (98-107); CO2 31 mmol/L (21-32); CREATININE 1.4 mg/dL (0.55-1.02); POTASSIUM 5.1 mmol/L (3.5-5.1); SODIUM 127 mmol/L (136-145)
[2017-08-27 20:27] LABS: GLUCOSE,RANDOM 349 mg/dL (74-106)
[2017-08-27] MEDS: ATORVASTATIN CA 40 MG TABLET (FP) PO SCH (21:22)
[2017-08-27] MEDS: DOCUSATE SODIUM 100 MG CAPSULE (FP) PO SCH (21:23)
[2017-08-27] MEDS ORDERED: INSULIN DETEMIR 100 UNITS/ML MDV SQ SCH (22:00)
[2017-08-28] MEDS: guaiFENesin/D-METHORPHAN HB 5 ML UNIT-DOSE CUPS PO SCH ×6 (02:00→23:52)
[2017-08-28] MEDS: GABAPENTIN 300 MG CAPSULE (FP) PO SCH ×3 (06:09→22:14)
[2017-08-28] MEDS: LEVOTHYROXINE NA 88 MCG TABLET (FP) PO SCH (06:09)
[2017-08-28] MEDS: HEPARIN NA (PORCINE) 5,000 UNITS/ML 1ML VIAL SQ SCH ×3 (06:10→22:13)
[2017-08-28] MEDS: INSULIN SLIDING SCALE (NOVOLOG) 1 VIAL SQ SCH ×4 (06:11→22:12)
--- NOTE | 2017-08-28 08:10 | PN ---
Physical Exam: SUBJECTIVE: Patient seen and examined. She has no acute complaints. + BM per RN , did ambulate. OBJECTIVE: Vital Signs Period Temp Pulse Resp BP Sys/Ibarra Pulse Ox Last 24 Hr 97.8 F-98.1 F 55-62 20-22 125-148/48-68 95-95 PE Neuro: alert, awake, cn 2-12intact Pulm: no wheezing, basilar rhonchi + NC CV: s1 s2 rrr Abd: s nt nd + bs ext: warm, no le edema Laboratory Results - last 24 hr 08/27/17 08/27/17 08/27/17 12:09 12:20 16:53 Sodium 125 L Potassium 5.4 H Chloride 82 L Carbon Dioxide 30 Anion Gap 13 BUN 43 H Creatinine 1.4 H POC Glucometer 464 356 Random Glucose 425 H* Calcium 8.6 08/27/17 08/27/17 08/28/17 19:10 21:15 05:54 Sodium 127 L Potassium 5.1 Chloride 89 L Carbon Dioxide 31 Anion Gap 7 L BUN 42 H Creatinine 1.4 H POC Glucometer 298 276 Random Glucose 349 H* Calcium 8.5 Active Medications Generic Name Dose Route Start Last Admin Trade Name Freq PRN Reason Stop Dose Admin Acetaminophen 650 mg 08/20/17 20:45 08/20/17 21:41 Tylenol - PO 650 mg Q6H PRN Administration FEVER Aspirin 81 mg 08/21/17 10:00 08/27/17 10:47 Asa - PO 81 mg DAILY [facility] Administration Atorvastatin Calcium 40 mg 08/20/17 22:00 08/27/17 21:22 Lipitor - PO 40 mg HS [facility] Administration Budesonide/Formoterol Fumarate 1 puff 08/26/17 22:00 08/27/17 21:26 Symbicort 160/4.5mcg - IH 1 puff BID [facility] Administration Carvedilol 12.5 mg 08/20/17 22:00 08/27/17 21:23 Coreg - PO 12.5 mg BID [facility] Administration Docusate Sodium 300 mg 08/24/17 22:00 08/27/17 21:23 Colace - PO 300 mg HS [facility] Administration Gabapentin 600 mg 08/20/17 22:00 08/28/17 06:09 Neurontin - PO 600 mg TID [facility] Administration Guaifenesin 10 ml 08/24/17 11:46 08/28/17 06:10 Guaifenesin Dm Syrup PO 10 ml Q4HPO [facility] Administration Heparin Sodium (Porcine) 5,000 unit 08/20/17 22:00 08/28/17 06:10 Heparin - SQ 5,000 unit TID [facility] Administration Insulin Aspart 1 vial 08/27/17 22:00 08/27/17 21:27 Novolog Vial Sliding Scale - SQ 4 unit HS [facility] Administration Protocol Insulin Aspart 1 vial 08/27/17 16:30 08/28/17 06:11 Novolog Vial Sliding Scale - SQ 6 units TIDAC [facility] Administration Protocol Insulin Detemir 18 units 08/27/17 22:00 08/27/17 21:28 Levemir Vial SQ 18 unit HS [facility] Administration Levothyroxine Sodium 88 mcg 08/21/17 07:00 08/28/17 06:09 Synthroid - PO 88 mcg AM [facility] Administration Methylprednisolone Sodium Succinate 40 mg 08/27/17 10:00 08/27/17 10:47 Solu-Medrol - IVPUSH 40 mg DAILY [facility] Administration Pantoprazole Sodium 40 mg 08/27/17 10:00 08/27/17 10:47 Protonix - PO 40 mg DAILY [facility] Administration Polyethylene Glycol 17 gm 08/24/17 22:00 08/27/17 21:27 Miralax (For Daily Use) - PO 17 gm BID [facility] Administration Ranolazine 500 mg 08/20/17 22:00 08/27/17 21:22 Ranexa - PO 500 mg BID [facility] Administration Tiotropium [place] 1 puff 08/26/17 13:00 08/27/17 10:46 Spiriva - IH 1 puff DAILY [facility] Administration Imaging: - 08/23 Echo: LV mild to moderately reduced with severe wall motion hypokinesis; BLAE; trace MR; mild TR; trace AI Assessment: 82 year old female with a PMH significant for HTN, HLD, CAD s/p CABG x 3 (2004), systolic heart failure, CVA, IDDM, diabetic polyneuropathy, and hypothyroidism. Admitted for acute on chronic systolic heart failure, pneumonia, and UTI. Plan: 1. Acute on chronic systolic heart failure - CXR negative for congestion/fluid - Continues to use supplemental o2 2. Wheezing - Taper to PO prednisone 40mg daily - Pulm consulted 3. Hyperkalemia - Improved on own - Monitor 4. Community acquired pneumonia - Complete 8 day course azithro/ceftriaxone /6 - Spirivia 5. HAROLDO - Cr stable ~1.3 6. UTI - Urine culture negative 7. Hyponatremia - Corrected, resolved 8. Hypertension - Continue carvedilol, ramipril 9. Hyperlipidemia - Continue Lipitor 10. Coronary artery disease, h/o CVA - ASA, Lipitor, carvedilol, Ranexa 11. DM II - Levemir 18Uunits qhs - ISS, BGM TIDAC, HS - Appreciate endocrine assistance 12. Diabetic polyneuropathy - Continue Gabapentin 13. Hypothyroidism - Continue levothyroxine 14. Dysphagia - Barium swallow report noted - Regular diet with thin liquids 15. Constipation - Resolved, + BM Dispo: - Will go to [facility], possibly today v tomorrow Visit type - Emergency Visit Emergency Visit: Yes ED Registration Date: 08/20/17 Care time: The patient presented to the Emergency Department on the above date and was hospitalized for further evaluation of their emergent condition. - New Patient This patient is new to me today: No - Critical Care Critical Care patient: No
[2017-08-28 10:24] LABS: ANION GAP 5 (8-16); BLOOD UREA NITROGEN 36 mg/dL (7-18); CALCIUM 8.3 mg/dL (8.5-10.1); CHLORIDE 92 mmol/L (98-107); CO2 33 mmol/L (21-32); CREATININE 1.3 mg/dL (0.55-1.02); GLUCOSE,RANDOM 212 mg/dL (74-106); POTASSIUM 4.6 mmol/L (3.5-5.1); SODIUM 130 mmol/L (136-145)
--- NOTE | 2017-08-28 10:58 | PN ---
Progress Note (short form) - Note Progress Note: RENAL awake and alert appears comfortable Last Vital Signs Temp Pulse Resp BP Pulse Ox 97.8 F 55 L 20 148/68 95 08/28/17 06:00 08/28/17 06:00 08/28/17 06:00 08/28/17 06:00 08/27/17 21:00 lungs crakles at right base cvs s1s2 rr abd soft ext no edema neuro a+ox3 CBC, BMP 08/24/17 06:20 08/28/17 09:45 Current Medications Generic Name Dose Route Start Last Admin Trade Name Freq PRN Reason Stop Dose Admin Acetaminophen 650 mg 08/20/17 20:45 08/20/17 21:41 Tylenol - PO 650 mg Q6H PRN Administration FEVER Aspirin 81 mg 08/21/17 10:00 08/27/17 10:47 Asa - PO 81 mg DAILY PALOMA Administration Atorvastatin Calcium 40 mg 08/20/17 22:00 08/27/17 21:22 Lipitor - PO 40 mg HS PALOMA Administration Budesonide/Formoterol Fumarate 1 puff 08/26/17 22:00 08/27/17 21:26 Symbicort 160/4.5mcg - IH 1 puff BID PALOMA Administration Carvedilol 12.5 mg 08/20/17 22:00 08/27/17 21:23 Coreg - PO 12.5 mg BID PALOMA Administration Docusate Sodium 300 mg 08/24/17 22:00 08/27/17 21:23 Colace - PO 300 mg HS PALOMA Administration Gabapentin 600 mg 08/20/17 22:00 08/28/17 06:09 Neurontin - PO 600 mg TID PALOMA Administration Guaifenesin 10 ml 08/24/17 11:46 08/28/17 06:10 Guaifenesin Dm Syrup PO 10 ml Q4HPO PALOMA Administration Heparin Sodium (Porcine) 5,000 unit 08/20/17 22:00 08/28/17 06:10 Heparin - SQ 5,000 unit TID PALOMA Administration Insulin Aspart 1 vial 08/27/17 22:00 08/27/17 21:27 Novolog Vial Sliding Scale - SQ 4 unit HS PALOMA Administration Protocol Insulin Aspart 1 vial 08/27/17 16:30 08/28/17 06:11 Novolog Vial Sliding Scale - SQ 6 units TIDAC PALOMA Administration Protocol Insulin Detemir 18 units 08/27/17 22:00 08/27/17 21:28 Levemir Vial SQ 18 unit HS PALOMA Administration Levothyroxine Sodium 88 mcg 08/21/17 07:00 08/28/17 06:09 Synthroid - PO 88 mcg AM PALOMA Administration Pantoprazole Sodium 40 mg 08/27/17 10:00 08/27/17 10:47 Protonix - PO 40 mg DAILY PALOMA Administration Polyethylene Glycol 17 gm 08/24/17 22:00 08/27/17 21:27 Miralax (For Daily Use) - PO 17 gm BID PALOMA Administration Prednisone 40 mg 08/28/17 10:45 Deltasone - PO DAILY PALOMA Ranolazine 500 mg 08/20/17 22:00 08/27/17 21:22 Ranexa - PO 500 mg BID PALOMA Administration Tiotropium [place] 1 puff 08/26/17 13:00 08/27/17 10:46 Spiriva - IH 1 puff DAILY PALOMA Administration Impression 1. HAROLDO 2. hyponatremia 3. DM uncontrolled 4. hypothyroidism 5. CHF 6. COPD 7. hyperkalemia Plan hyponatremia is better but she si still at risk for a fall with sodium of 130 would monitor another day pulmonary will see patient prednisone taper MV
[2017-08-28] MEDS ORDERED: PT OWN MED DRAWER 7, Y5N ONE ×2 (11:03→11:18)
[2017-08-28] MEDS: RANOLAZINE E.R. 500 MG TABLET (FP) PO SCH ×2 (11:07→22:14)
[2017-08-28] MEDS: predniSONE 20 MG TABLET (UD) PO SCH (11:07)
[2017-08-28] MEDS: CARVEDILOL 12.5 MG TABLET (FP) PO SCH ×2 (11:07→22:14)
[2017-08-28] MEDS: TIOTROPIUM BROMIDE 18 MCG CAPSULES IH SCH (11:07)
[2017-08-28] MEDS: BUDESONIDE/FORMETEROL FUMARATE 160/4.5 mcg INHALER IH SCH ×2 (11:08→22:13)
[2017-08-28] MEDS: PANTOPRAZOLE 40 MG TABLET (FP) PO SCH (11:08)
[2017-08-28] MEDS: ASPIRIN 81 MG CHEWABLE TABLETS PO SCH (11:08)
[2017-08-28] MEDS: POLYETHYLENE GLYCOL 3350 119 GM BTL PO SCH ×2 (11:22→22:13)
[2017-08-28] MEDS: methylPREDNISolone NA SUCC 40 MG/1 ML VIAL IVPUSH SCH (11:41)
--- NOTE | 2017-08-28 13:38 | PN ---
Progress Note (short form) - Note Progress Note: PULMONARY CONSULTATION DICTATED 08/28/17 IMP CHF IMPROVED RECENT PNEUMONIA HAROLDO DM ? COPD HYPOTHYROID PLAN O2 PRN INHALED BRONCHODILATORS PREDNISONE TAPER MONITOR KERRI MAHMOOD DR Problem List - Problems (1) Bronchospasm Code(s): J98.01 - ACUTE BRONCHOSPASM (2) CHF exacerbation Code(s): I50.9 - HEART FAILURE, UNSPECIFIED Qualifiers: Heart failure type: unspecified Qualified Code(s): I50.9 - Heart failure, unspecified (3) Hyponatremia Code(s): E87.1 - HYPO-OSMOLALITY AND HYPONATREMIA
--- NOTE | 2017-08-28 14:10 | CONS ---
DATE OF CONSULTATION: 08/28/2017 REFERRING PHYSICIAN: Zonia Nelson NP The patient is an 82-year-old female with past medical history of hypertension, hyperlipidemia, ASHD, status post CABG x3, type 2 diabetes, CVA, CHF, visited [facility] on August 20 with the complaint of dysuria, body aches, cold and cold sweats for 3 days. Patient also noted increasing shortness of breath and chronic shortness of breath and fatigue. On admission, she was felt to have a possible pneumonia. She was started on broad spectrum antibiotics and transferred up to the Medical Floor further management. She was also thought to be in [id number] CHF, for which she was administered Lasix. The hospitalization was significant where she started developing some wheezes, at which time she was placed on a short course of steroids with some improvement. The steroids were reduced and her symptoms recurred. Patient had a follow up chest x-ray, which revealed no evidence of acute pneumonia. She had a barium swallow performed on August 27, which revealed normal swallowing study with mild tertiary contractions, slight delay in esophageal emptying, no evidence of aspiration. Patient is a nonsmoker. She denies any history of occupational exposure to chemicals or fumes. History is difficult, but she states she does get occasional shortness of breath with exertion. She denies any fevers, chronic cough, hemoptysis. There was no apparent history of occupational exposure to chemicals or fumes. PAST MEDICAL HISTORY: Again, includes ASHD, status post CABG, hyperlipidemia, hypertension, CVA, insulin dependent diabetes mellitus, diabetic polyneuropathy, systolic heart failure. REVIEW OF SYSTEMS: No orthopnea, no PND. Positive dyspnea on exertion. Positive mild cough. No chest pain, no palpitations, no fevers, no chills, no abdominal pain, no lower extremity edema. MEDICATIONS: Current medications include: 1. Symbicort. 2. Prednisone. 3. Tylenol. 4. Neurontin. 5. Spiriva. 6. Guaifenesin. 7. Coreg. 8. Ranexa. 9. Colace. 10. MiraLax. 11. Novolog. 12. Aspirin. 13. Synthroid. PHYSICAL EXAMINATION: General: The patient is an elderly female, well-developed, awake, alert, in no acute distress. Vitals: She is afebrile. Her blood pressure is 148/68, respiratory rate is 20, O2 saturation 95%. HEENT: Normocephalic and atraumatic. Neck: Supple. Heart: Regular S1, S2. She has a few crackles in the right base, otherwise clear. Abdomen: Soft, bowel sounds are positive. Extremities: No cyanosis, edema. LABORATORY STUDIES: WBC is 12.4, hemoglobin 11.2, hematocrit 33, platelet count 223,000. INR is 1.03. BUN 36, creatinine 1.3. Chest x-ray no evidence of effusion and/or infiltrate. IMPRESSION: 1. Likely decompensated congestive heart failure, currently improved. 2. Bronchospasm, possible pneumonia. She is radiographically improved. 3. Diabetes mellitus. 4. Hypertension. PLAN: IV fluids as per renal. Prednisone taper. Inhaled bronchodilators. MARYANN BABB M.D. TITUS/[id number]
--- NOTE | 2017-08-28 18:12 | PN ---
Progress Note (short form) - Note Progress Note: Denies any new complaints Fluctuating blood sugar No hypos Vital Signs Period Temp Pulse Resp BP Sys/Ibarra Pulse Ox Last 24 Hr 97.8 F-98.1 F 55-59 20-22 114-148/54-68 95-100 PE: AOx3 Neck: Supple, No JVD HEENT: PERRL, EOMI Lungs: Few basal crackles CVS: S1S2 Abd: Benign EXt: No edema Neuro: No focal deficit CMP Sodium 130 mmol/L (136-145) L 08/28/17 09:45 Potassium 4.6 mmol/L (3.5-5.1) 08/28/17 09:45 Chloride 92 mmol/L (98-107) L 08/28/17 09:45 Carbon Dioxide 33 mmol/L (21-32) H 08/28/17 09:45 Anion Gap 5 (8-16) L 08/28/17 09:45 BUN 36 mg/dL (7-18) H 08/28/17 09:45 Creatinine 1.3 mg/dL (0.55-1.02) H 08/28/17 09:45 Creat Clearance w eGFR 39.21 (>60) 08/24/17 06:20 POC Glucometer 320 UNITS (80-120) 08/28/17 17:02 Random Glucose 212 mg/dL (74-106) H 08/28/17 09:45 Serum Osmolality 306 mosm/kg (278-305) H 08/22/17 07:15 Calcium 8.3 mg/dL (8.5-10.1) L 08/28/17 09:45 Magnesium 2.4 mg/dL (1.8-2.4) 08/24/17 06:20 Total Bilirubin 0.2 mg/dL (0.2-1.0) D 08/24/17 06:20 AST 28 U/L (15-37) 08/24/17 06:20 ALT 30 U/L (12-78) 08/24/17 06:20 Alkaline Phosphatase 124 U/L (45-117) H 08/24/17 06:20 Creatine Kinase 106 IU/L (26-192) 08/20/17 08:30 Troponin I < 0.02 ng/ml (0.00-0.05) 08/20/17 08:30 B-Natriuretic Peptide 3042.66 pg/ml (5-450) H 08/20/17 08:30 Total Protein 6.7 g/dl (6.4-8.2) 08/24/17 06:20 Albumin 3.0 g/dl (3.4-5.0) L 08/24/17 06:20 TSH 0.67 uIU/ml (0.358-3.74) 08/22/17 07:15 Current Medications Generic Name Dose Route Start Last Admin Trade Name Freq PRN Reason Stop Dose Admin Acetaminophen 650 mg 08/20/17 20:45 08/20/17 21:41 Tylenol - PO 650 mg Q6H PRN Administration FEVER Aspirin 81 mg 08/21/17 10:00 08/28/17 11:08 Asa - PO 81 mg DAILY PALOMA Administration Atorvastatin Calcium 40 mg 08/20/17 22:00 08/27/17 21:22 Lipitor - PO 40 mg HS PALOMA Administration Budesonide/Formoterol Fumarate 1 puff 08/26/17 22:00 08/28/17 11:08 Symbicort 160/4.5mcg - IH 1 puff BID PALOMA Administration Carvedilol 12.5 mg 08/20/17 22:00 08/28/17 11:07 Coreg - PO 12.5 mg BID PALOMA Administration Docusate Sodium 300 mg 08/24/17 22:00 08/27/17 21:23 Colace - PO 300 mg HS PALOMA Administration Gabapentin 600 mg 08/20/17 22:00 08/28/17 15:00 Neurontin - PO 600 mg TID PALOMA Administration Guaifenesin 10 ml 08/24/17 11:46 08/28/17 17:35 Guaifenesin Dm Syrup PO 10 ml Q4HPO PALOMA Administration Heparin Sodium (Porcine) 5,000 unit 08/20/17 22:00 08/28/17 15:00 Heparin - SQ 5,000 unit TID APLOMA Administration Insulin Aspart 1 vial 08/27/17 22:00 08/27/17 21:27 Novolog Vial Sliding Scale - SQ 4 unit HS PALOMA Administration Protocol Insulin Aspart 1 vial 08/27/17 16:30 08/28/17 17:08 Novolog Vial Sliding Scale - SQ 10 units TIDAC PALOMA Administration Protocol Insulin Detemir 18 units 08/27/17 22:00 08/27/17 21:28 Levemir Vial SQ 18 unit HS PALOMA Administration Levothyroxine Sodium 88 mcg 08/21/17 07:00 08/28/17 06:09 Synthroid - PO 88 mcg AM PALOMA Administration Pantoprazole Sodium 40 mg 08/27/17 10:00 08/28/17 11:08 Protonix - PO 40 mg DAILY PALOMA Administration Polyethylene Glycol 17 gm 08/24/17 22:00 08/28/17 11:22 Miralax (For Daily Use) - PO Not Given BID PALOMA Prednisone 40 mg 08/28/17 10:45 08/28/17 11:07 Deltasone - PO 40 mg DAILY PALOMA Administration Ranolazine 500 mg 08/20/17 22:00 08/28/17 11:07 Ranexa - PO 500 mg BID PALOMA Administration Tiotropium [place] 1 puff 08/26/17 13:00 08/28/17 11:07 Spiriva - IH 1 puff DAILY PALOMA Administration A/P T2DM: uncontrolled CHF Pneumonia HAROLDO UTI Hyponatremia HTN HLD CAD Neuropathy Hypothyroidism: TSH 0.67 BGM QACHS Increase Levemir 22 units daily INcrease Novolog Coverage Nutrition consult Prednisone Levothyroxine
[2017-08-28] MEDS ORDERED: INSULIN DETEMIR 100 UNITS/ML MDV SQ SCH (22:00)
[2017-08-28] MEDS ORDERED: INSULIN (NOVOLOG) ASPART 100 UNITS/ML 10ML VIAL ONE (22:10)
[2017-08-28] MEDS: DOCUSATE SODIUM 100 MG CAPSULE (FP) PO SCH (22:14)
[2017-08-28] MEDS: diphenhydrAMINE HCL 25 MG CAPSULE (FP) PO SCH (22:14)
[2017-08-28] MEDS: ATORVASTATIN CA 40 MG TABLET (FP) PO SCH (22:14)
[2017-08-29] MEDS: guaiFENesin/D-METHORPHAN HB 5 ML UNIT-DOSE CUPS PO SCH ×6 (02:51→21:59)
[2017-08-29] MEDS: GABAPENTIN 300 MG CAPSULE (FP) PO SCH ×3 (05:58→21:58)
[2017-08-29] MEDS: HEPARIN NA (PORCINE) 5,000 UNITS/ML 1ML VIAL SQ SCH ×3 (05:58→21:58)
[2017-08-29] MEDS: LEVOTHYROXINE NA 88 MCG TABLET (FP) PO SCH (06:10)
[2017-08-29 08:15] LABS: ANION GAP 4 (8-16); BLOOD UREA NITROGEN 29 mg/dL (7-18); CALCIUM 8.6 mg/dL (8.5-10.1); CHLORIDE 96 mmol/L (98-107); CO2 32 mmol/L (21-32); CREATININE 1.2 mg/dL (0.55-1.02); GLUCOSE,RANDOM 188 mg/dL (74-106); POTASSIUM 4.8 mmol/L (3.5-5.1); SODIUM 132 mmol/L (136-145)
[2017-08-29] MEDS ORDERED: INSULIN (NOVOLOG) ASPART 100 UNITS/ML 10ML VIAL ONE (09:37)
[2017-08-29] MEDS ORDERED: PT OWN MED DRAWER 7, Y5N ONE (09:39)
[2017-08-29] MEDS: POLYETHYLENE GLYCOL 3350 119 GM BTL PO SCH ×2 (09:44→21:58)
[2017-08-29] MEDS: INSULIN SLIDING SCALE (NOVOLOG) 1 VIAL SQ SCH ×4 (09:44→21:57)
[2017-08-29] MEDS: CARVEDILOL 12.5 MG TABLET (FP) PO SCH ×2 (09:45→21:57)
[2017-08-29] MEDS: PANTOPRAZOLE 40 MG TABLET (FP) PO SCH (09:45)
[2017-08-29] MEDS: predniSONE 20 MG TABLET (UD) PO SCH (09:45)
[2017-08-29] MEDS: ASPIRIN 81 MG CHEWABLE TABLETS PO SCH (09:45)
[2017-08-29] MEDS: BUDESONIDE/FORMETEROL FUMARATE 160/4.5 mcg INHALER IH SCH ×2 (09:45→21:59)
[2017-08-29] MEDS: TIOTROPIUM BROMIDE 18 MCG CAPSULES IH SCH (09:45)
[2017-08-29] MEDS: RANOLAZINE E.R. 500 MG TABLET (FP) PO SCH ×2 (09:45→21:57)
--- NOTE | 2017-08-29 11:18 | PN ---
Progress Note (short form) - Note Progress Note: RENAL awake and alert appears comfortable c/o paresthesias on face, dizziness and weakness. Also fullness of her head. Says she has a history of neuropathy for and this happens sometimes but its worse today Last Vital Signs Temp Pulse Resp BP Pulse Ox 97.9 F 56 L 20 102/42 100 08/29/17 10:00 08/29/17 10:00 08/29/17 10:00 08/29/17 10:28 08/28/17 21:00 lungs clear cvs s1s2 rr abd soft ext no edema neuro a+ox3 HEFIDELINA has some repeatetive movements of her lips CBC, BMP 08/24/17 06:20 08/29/17 07:35 Current Medications Generic Name Dose Route Start Last Admin Trade Name Freq PRN Reason Stop Dose Admin Acetaminophen 650 mg 08/20/17 20:45 08/20/17 21:41 Tylenol - PO 650 mg Q6H PRN Administration FEVER Aspirin 81 mg 08/21/17 10:00 08/29/17 09:45 Asa - PO 81 mg DAILY PALOMA Administration Atorvastatin Calcium 40 mg 08/20/17 22:00 08/28/17 22:14 Lipitor - PO 40 mg HS PALOMA Administration Budesonide/Formoterol Fumarate 1 puff 08/26/17 22:00 08/29/17 09:45 Symbicort 160/4.5mcg - IH 1 puff BID PALOMA Administration Carvedilol 12.5 mg 08/20/17 22:00 08/29/17 09:45 Coreg - PO 12.5 mg BID PALOMA Administration Diphenhydramine HCl 25 mg 08/28/17 22:00 08/28/17 22:14 Benadryl - PO 25 mg HS PALOMA Administration Docusate Sodium 300 mg 08/24/17 22:00 08/28/17 22:14 Colace - PO 300 mg HS PALOMA Administration Gabapentin 600 mg 08/20/17 22:00 08/29/17 05:58 Neurontin - PO 600 mg TID PALOMA Administration Guaifenesin 10 ml 08/24/17 11:46 08/29/17 05:58 Guaifenesin Dm Syrup PO 10 ml Q4HPO PALOMA Administration Heparin Sodium (Porcine) 5,000 unit 08/20/17 22:00 08/29/17 05:58 Heparin - SQ 5,000 unit TID PALOMA Administration Insulin Aspart 1 vial 08/27/17 22:00 08/28/17 22:12 Novolog Vial Sliding Scale - SQ 6 unit HS PALOMA Administration Protocol Insulin Aspart 1 vial 08/29/17 08:00 08/29/17 09:44 Novolog Vial Sliding Scale - SQ 8 unit TIDAC PALOMA Administration Protocol Insulin Detemir 22 units 08/28/17 22:00 08/28/17 22:12 Levemir Vial SQ 22 units HS PALOMA Administration Levothyroxine Sodium 88 mcg 08/21/17 07:00 08/29/17 06:10 Synthroid - PO 88 mcg AM PALOMA Administration Pantoprazole Sodium 40 mg 08/27/17 10:00 08/29/17 09:45 Protonix - PO 40 mg DAILY PALOMA Administration Polyethylene Glycol 17 gm 08/24/17 22:00 08/29/17 09:44 Miralax (For Daily Use) - PO 17 gm BID PALOMA Administration Prednisone 40 mg 08/28/17 10:45 08/29/17 09:45 Deltasone - PO 40 mg DAILY PALOMA Administration Ranolazine 500 mg 08/20/17 22:00 08/29/17 09:45 Ranexa - PO 500 mg BID PALOMA Administration Tiotropium [place] 1 puff 08/26/17 13:00 08/29/17 09:45 Spiriva - IH 1 puff DAILY PALOMA Administration Impression 1. HAROLDO 2. hyponatremia 3. DM uncontrolled 4. hypothyroidism 5. CHF 6. COPD 7. hyperkalemia 8. possible side effects to neurontin Plan agree with fluids and ct scan, She does not have localizing signs however would reduce gabapentin. Cant be stopped. Neuro eval MV
--- NOTE | 2017-08-29 11:24 | PN ---
Physical Exam: SUBJECTIVE: Patient seen and examined. [facility] Pt reports numbness to face a fullness, and numbness to hands and feet. she has had this for 6 years today is worse. BP 104/42 OBJECTIVE: Vital Signs Period Temp Pulse Resp BP Sys/Ibarra Pulse Ox Last 24 Hr 97.8 F-98.3 F 56-59 20-20 102-144/41-71 100 PE Gen: appears distressed Neuro: alert, awake, cn 2-12intact HEENT: Dry MM, horse voice Pulm: basilar rhonchi + NC CV: s1 s2 rrr Abd: s nt nd + bs ext: warm, no le edema Laboratory Results - last 24 hr 08/28/17 08/28/17 08/28/17 11:45 17:02 22:08 Sodium Potassium Chloride Carbon Dioxide Anion Gap BUN Creatinine POC Glucometer 227 320 307 Random Glucose Calcium 08/29/17 08/29/17 05:39 07:35 Sodium 132 L Potassium 4.8 Chloride 96 L Carbon Dioxide 32 Anion Gap 4 L BUN 29 H Creatinine 1.2 H POC Glucometer 201 Random Glucose 188 H Calcium 8.6 Active Medications Generic Name Dose Route Start Last Admin Trade Name Freq PRN Reason Stop Dose Admin Acetaminophen 650 mg 08/20/17 20:45 08/20/17 21:41 Tylenol - PO 650 mg Q6H PRN Administration FEVER Aspirin 81 mg 08/21/17 10:00 08/29/17 09:45 Asa - PO 81 mg DAILY PALOMA Administration Atorvastatin Calcium 40 mg 08/20/17 22:00 08/28/17 22:14 Lipitor - PO 40 mg HS PALOMA Administration Budesonide/Formoterol Fumarate 1 puff 08/26/17 22:00 08/29/17 09:45 Symbicort 160/4.5mcg - IH 1 puff BID PALOMA Administration Carvedilol 12.5 mg 08/20/17 22:00 08/29/17 09:45 Coreg - PO 12.5 mg BID PALOMA Administration Diphenhydramine HCl 25 mg 08/28/17 22:00 08/28/17 22:14 Benadryl - PO 25 mg HS PALOMA Administration Docusate Sodium 300 mg 08/24/17 22:00 08/28/17 22:14 Colace - PO 300 mg HS PALOMA Administration Gabapentin 300 mg 08/29/17 11:18 Neurontin - PO TID PALOMA Guaifenesin 10 ml 08/24/17 11:46 08/29/17 11:17 Guaifenesin Dm Syrup PO 10 ml Q4HPO PALOMA Administration Heparin Sodium (Porcine) 5,000 unit 08/20/17 22:00 08/29/17 05:58 Heparin - SQ 5,000 unit TID PALOMA Administration Insulin Aspart 1 vial 08/27/17 22:00 08/28/17 22:12 Novolog Vial Sliding Scale - SQ 6 unit HS PALOMA Administration Protocol Insulin Aspart 1 vial 08/29/17 08:00 08/29/17 09:44 Novolog Vial Sliding Scale - SQ 8 unit TIDAC PALOMA Administration Protocol Insulin Detemir 22 units 08/28/17 22:00 08/28/17 22:12 Levemir Vial SQ 22 units HS PALOMA Administration Levothyroxine Sodium 88 mcg 08/21/17 07:00 08/29/17 06:10 Synthroid - PO 88 mcg AM PALOMA Administration Pantoprazole Sodium 40 mg 08/27/17 10:00 08/29/17 09:45 Protonix - PO 40 mg DAILY PALOMA Administration Polyethylene Glycol 17 gm 08/24/17 22:00 08/29/17 09:44 Miralax (For Daily Use) - PO 17 gm BID PALOMA Administration Prednisone 40 mg 08/28/17 10:45 08/29/17 09:45 Deltasone - PO 40 mg DAILY PALOMA Administration Ranolazine 500 mg 08/20/17 22:00 08/29/17 09:45 Ranexa - PO 500 mg BID PALOMA Administration Tiotropium [place] 1 puff 08/26/17 13:00 08/29/17 09:45 Spiriva - IH 1 puff DAILY PALOMA Administration Imaging: - 08/23 Echo: LV mild to moderately reduced with severe wall motion hypokinesis; BLAE; trace MR; mild TR; trace AI Assessment: 82 year old female with a PMH significant for HTN, HLD, CAD s/p CABG x 3 (2004), systolic heart failure, CVA, IDDM, diabetic polyneuropathy, and hypothyroidism. Admitted for acute on chronic systolic heart failure, pneumonia, and UTI. Plan: 1. Acute numbness and fullness to face, b/l upper and lower ext - Head CT now, r/p tia - 250cc bolus - Neurontin dose decreased 300mg TID - Neuro consulted 2. Acute on chronic systolic heart failure - Improved - No diuretics at this time 3. Wheezing - Resolved - Taper to PO prednisone 30mg daily starting tomorrow 4. Community acquired pneumonia - Complete 8 day course azithro/ceftriaxone 08/27 - Spirivia 5. HAROLDO - Improved, stable 6. UTI - Urine culture negative 7. Hyponatremia - Improved 8. Hypertension - Continue carvedilol, ramipril 9. Hyperlipidemia - Continue Lipitor 10. Coronary artery disease, h/o CVA - ASA, Lipitor, carvedilol, Ranexa 11. DM II - Levemir 18Uunits qhs - ISS, BGM TIDAC, HS - Appreciate endocrine assistance 12. Diabetic polyneuropathy - Continue Gabapentin reduced dose 300 TID 13. Hypothyroidism - Continue levothyroxine 14. Dysphagia - Barium swallow report noted - Regular diet with thin liquids 15. Constipation - Resolved, + BM Visit type - Emergency Visit Emergency Visit: Yes ED Registration Date: 08/20/17 Care time: The patient presented to the Emergency Department on the above date and was hospitalized for further evaluation of their emergent condition. - New Patient This patient is new to me today: No - Critical Care Critical Care patient: No
[2017-08-29] MEDS: predniSONE 10 MG TABLET (UD) PO SCH (13:47)
[2017-08-29] MEDS ORDERED: SODIUM CHLORIDE 250 ML IV STA (17:04)
--- NOTE | 2017-08-29 17:39 | CONSULT ---
Consult - text type - Consultation Consultation Note: NEUROLOGY CONSULTATION is greatly appreciated: This 82 yo RH woman with h/o DM, HTN, hypothyroidism, Chol, and ASHD with CHF is s/p CABG x 3. Admitted by her family on 08/20/17 after few days of persistent myalgias and cough. Found to have WBC=17K and UTI with 277 urine WBC. Complicated by renal insufficiency. Home meds included: insulin, atorvastatin, ramipril, ranexa, omeprazole, synthroid, Lipase, and Gabapentin (600 TID) Patient now c/o daily, diffuse, pressing headache and chronic numbness and tingling in the hands and feet. CT of head (reviewed): Mild, diffuse, atrophy, diffuse atrophy, and densely calcified intracranial arteries. Modified Barium swallow: Normal ARIANA: No bruits. No head trauma. No skin breakdown. In diaper NEURO: Awake, alert, friendly, Cooperative. Fluent speech in Indonesian. Mild OMS. [facility] (but not [facility]), Not [place]. July. No year. + Glabella. CN II-XII: Full barr. No facial. Min. oral dyskinesis. Gag normal. [place]. Motor: No drift. Rare myoclonic jerks. Grasps 4/5. Both R & L APB's 3 /5 and atrophic. Normal strength in the legs. Areflexic in the legs. Downgoing toes. Coord: No FTN Dystaxia. Sensory: Decreased pin both median hands. Decreased vibration and pin both feet to the ankles. Romberg ++ Gait: Wide-based, flexed, shuffling, retropulsive, unsteady. IMP: 1. Mild-mod B/L cerebral dysfunction (OMS, Chronic) 2. Daily Headaches- r/o temporal arteritis (NB: ESR and CRP may be elevated in the light of chronic infection) 3. B/L Carpal Tunnel syndromes 4. Moderately severe, diabetic Peripheral Neuropathy with Ataxia. 5. Toxic-Metabolic encephalopathy with Myoclonus. SUGGEST: Check ESR, CRP. B12. Mg++ and repeat UA to assure sterility. PT for gait with walker. Thank you very much, Sebastian Vargas MD
--- NOTE | 2017-08-29 18:20 | PN ---
Progress Note (short form) - Note Progress Note: Denies any new complaints Fluctuating blood sugar No hypos Has been snacking between meals Vital Signs Period Temp Pulse Resp BP Sys/Ibarra Pulse Ox Last 24 Hr 97.9 F-98.3 F 56-58 20-20 102-144/41-69 98-100 PE: AOx3 Neck: Supple, No JVD HEENT: PERRL, EOMI Lungs: Few basal crackles CVS: S1S2 Abd: Benign EXt: No edema Neuro: No focal deficit CMP Sodium 132 mmol/L (136-145) L 08/29/17 07:35 Potassium 4.8 mmol/L (3.5-5.1) 08/29/17 07:35 Chloride 96 mmol/L (98-107) L 08/29/17 07:35 Carbon Dioxide 32 mmol/L (21-32) 08/29/17 07:35 Anion Gap 4 (8-16) L 08/29/17 07:35 BUN 29 mg/dL (7-18) H 08/29/17 07:35 Creatinine 1.2 mg/dL (0.55-1.02) H 08/29/17 07:35 Creat Clearance w eGFR 39.21 (>60) 08/24/17 06:20 POC Glucometer 266 UNITS (80-120) 08/29/17 16:49 Random Glucose 188 mg/dL (74-106) H 08/29/17 07:35 Serum Osmolality 306 mosm/kg (278-305) H 08/22/17 07:15 Calcium 8.6 mg/dL (8.5-10.1) 08/29/17 07:35 Magnesium 2.4 mg/dL (1.8-2.4) 08/24/17 06:20 Total Bilirubin 0.2 mg/dL (0.2-1.0) D 08/24/17 06:20 AST 28 U/L (15-37) 08/24/17 06:20 ALT 30 U/L (12-78) 08/24/17 06:20 Alkaline Phosphatase 124 U/L (45-117) H 08/24/17 06:20 Creatine Kinase 106 IU/L (26-192) 08/20/17 08:30 Troponin I < 0.02 ng/ml (0.00-0.05) 08/20/17 08:30 B-Natriuretic Peptide 3042.66 pg/ml (5-450) H 08/20/17 08:30 Total Protein 6.7 g/dl (6.4-8.2) 08/24/17 06:20 Albumin 3.0 g/dl (3.4-5.0) L 08/24/17 06:20 TSH 0.67 uIU/ml (0.358-3.74) 08/22/17 07:15 Current Medications Generic Name Dose Route Start Last Admin Trade Name Freq PRN Reason Stop Dose Admin Acetaminophen 650 mg 08/20/17 20:45 08/20/17 21:41 Tylenol - PO 650 mg Q6H PRN Administration FEVER Aspirin 81 mg 08/21/17 10:00 08/29/17 09:45 Asa - PO 81 mg DAILY PALOMA Administration Atorvastatin Calcium 40 mg 08/20/17 22:00 08/28/17 22:14 Lipitor - PO 40 mg HS PALOMA Administration Budesonide/Formoterol Fumarate 1 puff 08/26/17 22:00 08/29/17 09:45 Symbicort 160/4.5mcg - IH 1 puff BID PALOMA Administration Carvedilol 12.5 mg 08/20/17 22:00 08/29/17 09:45 Coreg - PO 12.5 mg BID PALOMA Administration Diphenhydramine HCl 25 mg 08/28/17 22:00 08/28/17 22:14 Benadryl - PO 25 mg HS PALOMA Administration Docusate Sodium 300 mg 08/24/17 22:00 08/28/17 22:14 Colace - PO 300 mg HS PALOMA Administration Gabapentin 300 mg 08/29/17 11:18 08/29/17 13:47 Neurontin - PO 300 mg TID PALOMA Administration Guaifenesin 10 ml 08/24/17 11:46 08/29/17 14:58 Guaifenesin Dm Syrup PO 10 ml Q4HPO PALOMA Administration Heparin Sodium (Porcine) 5,000 unit 08/20/17 22:00 08/29/17 13:48 Heparin - SQ 5,000 unit TID PALOMA Administration Insulin Aspart 1 vial 08/27/17 22:00 08/28/17 22:12 Novolog Vial Sliding Scale - SQ 6 unit HS PALOMA Administration Protocol Insulin Aspart 1 vial 08/29/17 08:00 04/08/18 17:46 Novolog Vial Sliding Scale - SQ 10 unit TIDAC PALOMA Administration Protocol Insulin Detemir 22 units 08/28/17 22:00 08/28/17 22:12 Levemir Vial SQ 22 units HS PALOMA Administration Levothyroxine Sodium 88 mcg 08/21/17 07:00 08/29/17 06:10 Synthroid - PO 88 mcg AM PALOMA Administration Pantoprazole Sodium 40 mg 08/27/17 10:00 08/29/17 09:45 Protonix - PO 40 mg DAILY PALOMA Administration Polyethylene Glycol 17 gm 08/24/17 22:00 08/29/17 09:44 Miralax (For Daily Use) - PO 17 gm BID PALOMA Administration Prednisone 30 mg 08/29/17 12:00 08/29/17 13:47 Deltasone - PO 30 mg DAILY PALOMA Administration Ranolazine 500 mg 08/20/17 22:00 08/29/17 09:45 Ranexa - PO 500 mg BID PALOMA Administration Tiotropium [place] 1 puff 08/26/17 13:00 08/29/17 09:45 Spiriva - IH 1 puff DAILY PALOMA Administration A/P T2DM: uncontrolled CHF Pneumonia HAROLDO UTI Hyponatremia HTN HLD CAD Neuropathy Hypothyroidism: TSH 0.67 BGM QACHS Increase Levemir 26 units daily Increase Novolog Coverage Got Prednisone 40 and 30 today Nutrition consult Prednisone Levothyroxine
[2017-08-29] MEDS: ATORVASTATIN CA 40 MG TABLET (FP) PO SCH (21:57)
[2017-08-29] MEDS: diphenhydrAMINE HCL 25 MG CAPSULE (FP) PO SCH (21:57)
[2017-08-29] MEDS: DOCUSATE SODIUM 100 MG CAPSULE (FP) PO SCH (21:58)
[2017-08-29] MEDS ORDERED: INSULIN DETEMIR 100 UNITS/ML MDV SQ SCH (22:00)
[2017-08-30] MEDS: diphenhydrAMINE HCL 25 MG CAPSULE (FP) PO SCH ×2 (01:28→22:11)
[2017-08-30] MEDS: guaiFENesin/D-METHORPHAN HB 5 ML UNIT-DOSE CUPS PO SCH ×6 (02:36→22:11)
[2017-08-30] MEDS: GABAPENTIN 300 MG CAPSULE (FP) PO SCH ×3 (06:13→22:14)
[2017-08-30] MEDS: LEVOTHYROXINE NA 88 MCG TABLET (FP) PO SCH (06:13)
[2017-08-30] MEDS: HEPARIN NA (PORCINE) 5,000 UNITS/ML 1ML VIAL SQ SCH ×3 (06:13→22:12)
[2017-08-30] MEDS: INSULIN SLIDING SCALE (NOVOLOG) 1 VIAL SQ SCH ×3 (08:50→17:17)
[2017-08-30 09:09] LABS: ANION GAP 4 (8-16); BLOOD UREA NITROGEN 26 mg/dL (7-18); CALCIUM 8.6 mg/dL (8.5-10.1); CHLORIDE 96 mmol/L (98-107); CO2 33 mmol/L (21-32); GLUCOSE,RANDOM 243 mg/dL (74-106); MAGNESIUM 2.4 mg/dL (1.8-2.4); POTASSIUM 4.9 mmol/L (3.5-5.1); SODIUM 133 mmol/L (136-145)
[2017-08-30] MEDS ORDERED: PT OWN MED DRAWER 7, Y5N ONE ×2 (10:30→19:17)
[2017-08-30] MEDS: RANOLAZINE E.R. 500 MG TABLET (FP) PO SCH ×2 (10:35→22:16)
[2017-08-30] MEDS: BUDESONIDE/FORMETEROL FUMARATE 160/4.5 mcg INHALER IH SCH ×2 (10:36→22:17)
[2017-08-30] MEDS: ASPIRIN 81 MG CHEWABLE TABLETS PO SCH (10:36)
[2017-08-30] MEDS: PANTOPRAZOLE 40 MG TABLET (FP) PO SCH (10:36)
[2017-08-30] MEDS: predniSONE 10 MG TABLET (UD) PO SCH (10:36)
[2017-08-30] MEDS: TIOTROPIUM BROMIDE 18 MCG CAPSULES IH SCH (10:36)
[2017-08-30] MEDS: CARVEDILOL 12.5 MG TABLET (FP) PO SCH ×2 (10:49→22:11)
[2017-08-30] MEDS: POLYETHYLENE GLYCOL 3350 119 GM BTL PO SCH ×2 (11:34→22:14)
[2017-08-30] MEDS ORDERED: INSULIN (NOVOLOG) ASPART 100 UNITS/ML 10ML VIAL ONE ×3 (11:45→19:17)
[2017-08-30 11:52] LABS: URINE APPEARANCE CLEAR; URINE BILIRUBIN NEGATIVE (<2.0 mg/dL); URINE BLOOD NEGATIVE (NEGATIVE); URINE COLOR LTYELLOW; URINE GLUCOSE (UA) 3+ (NEGATIVE); URINE KETONE NEGATIVE (NEGATIVE); URINE LEUK ESTERASE TRACE (NEGATIVE); URINE NITRITE NEGATIVE (NEGATIVE); URINE PROTEIN NEGATIVE (NEGATIVE); URINE UROBILINOGEN NEGATIVE mg/dL (0.2-1.0)
[2017-08-30 11:58] LABS: EPI CELLS RARE /HPF (FEW); URINE MUCUS RARE
[2017-08-30] MEDS ORDERED: ALBUTEROL SO4 0.083% IH SOL 2.5 MG/3 ML VIAL.NEB. NEB PRN (12:23)
--- NOTE | 2017-08-30 12:23 | PN ---
Progress Note, Physician History of Present Illness: pulmonary alert,c/o sob with exertion,+ cough - Current Medication List Current Medications: Active Medications Acetaminophen (Tylenol -) 650 mg PO Q6H PRN PRN Reason: FEVER Last Admin: 08/20/17 21:41 Dose: 650 mg Aspirin (Asa -) 81 mg PO DAILY [facility] Last Admin: 08/30/17 10:36 Dose: 81 mg Atorvastatin Calcium (Lipitor -) 40 mg PO [facility] Last Admin: 08/29/17 21:57 Dose: 40 mg Budesonide/Formoterol Fumarate (Symbicort 160/4.5mcg -) 1 puff IH BID [facility] Last Admin: 08/30/17 10:36 Dose: 1 puff Carvedilol (Coreg -) 12.5 mg PO BID [facility] Last Admin: 08/30/17 10:49 Dose: Not Given Diphenhydramine HCl (Benadryl -) 25 mg PO [facility] Last Admin: 08/30/17 01:28 Dose: Not Given Docusate Sodium (Colace -) 300 mg PO [facility] Last Admin: 08/29/17 21:58 Dose: 300 mg Gabapentin (Neurontin -) 300 mg PO TID [facility] Last Admin: 08/30/17 06:13 Dose: 300 mg Guaifenesin (Guaifenesin Dm Syrup) 10 ml PO Q4HPO [facility] Last Admin: 08/30/17 11:38 Dose: 10 ml Heparin Sodium (Porcine) (Heparin -) 5,000 unit SQ TID [facility] Last Admin: 08/30/17 06:13 Dose: 5,000 unit Insulin Aspart (Novolog Vial Sliding Scale -) 1 vial SQ [facility] PRN Reason: Protocol Last Admin: 08/29/17 21:57 Dose: 6 unit Insulin Aspart (Novolog Vial Sliding Scale -) 1 vial SQ TIDAC [facility] PRN Reason: Protocol Last Admin: 08/30/17 12:07 Dose: 14 units Insulin Detemir (Levemir Vial) 26 units SQ [facility] Last Admin: 08/29/17 21:56 Dose: 26 units Levothyroxine Sodium (Synthroid -) 88 mcg PO AM [facility] Last Admin: 08/30/17 06:13 Dose: 88 mcg Pantoprazole Sodium (Protonix -) 40 mg PO DAILY [facility] Last Admin: 08/30/17 10:36 Dose: 40 mg Polyethylene Glycol (Miralax (For Daily Use) -) 17 gm PO BID [facility] Last Admin: 08/30/17 11:34 Dose: Not Given Prednisone (Deltasone -) 30 mg PO DAILY [facility] Last Admin: 08/30/17 10:36 Dose: 30 mg Ranolazine (Ranexa -) 500 mg PO BID [facility] Last Admin: 08/30/17 10:35 Dose: 500 mg Tiotropium [place] (Spiriva -) 1 puff IH DAILY [facility] Last Admin: 08/30/17 10:36 Dose: 1 puff - Objective Vital Signs: Vital Signs Temperature 97.8 F 08/30/17 06:00 Pulse Rate 58 L 08/30/17 11:47 Respiratory Rate 20 08/30/17 10:33 Blood Pressure 124/50 08/30/17 10:33 O2 Sat by Pulse Oximetry (%) 94 L 08/30/17 11:47 Constitutional: Yes: Well Nourished, Calm Eyes: Yes: WNL HENT: Yes: WNL, Tonsillar Exudate Cardiovascular: Yes: Regular Rate and Rhythm, S1, S2 Respiratory: Yes: Rales (bibasilar rales 1/4 up) Gastrointestinal: Yes: Normal Bowel Sounds, Soft Extremities: Yes: WNL Edema: No Labs: CBC, BMP 08/24/17 06:20 08/30/17 08:25 INR, PTT INR 1.03 (0.82-1.09) 08/20/17 08:30 Problem List - Problems (1) Bronchospasm Code(s): J98.01 - ACUTE BRONCHOSPASM (2) CHF exacerbation Code(s): I50.9 - HEART FAILURE, UNSPECIFIED Qualifiers: Heart failure type: unspecified Qualified Code(s): I50.9 - Heart failure, unspecified (3) Hyponatremia Code(s): E87.1 - HYPO-OSMOLALITY AND HYPONATREMIA Assessment/Plan IMP CHF IMPROVED RECENT PNEUMONIA HAROLDO DM ? COPD HYPOTHYROID HYPONATREMIA PLAN O2 PRN INHALED BRONCHODILATORS PREDNISONE TAPER MONITOR LYTES,NA CHEST X-RAY DR BABB Problem List - Problems (1) Bronchospasm Code(s): J98.01 - ACUTE BRONCHOSPASM (2) CHF exacerbation Code(s): I50.9 - HEART FAILURE, UNSPECIFIED Qualifiers: Heart failure type: unspecified Qualified Code(s): I50.9 - Heart failure, unspecified (3) Hyponatremia Code(s): E87.1 - HYPO-OSMOLALITY AND HYPONATREMIA
--- NOTE | 2017-08-30 14:00 | PN ---
Progress Note (short form) - Note Progress Note: Subjective: The patient was seen and examined at the bedside, she has no complaints at this time. Current Medications Generic Name Dose Route Start Last Admin Trade Name Freq PRN Reason Stop Dose Admin Acetaminophen 650 mg 08/20/17 20:45 08/20/17 21:41 Tylenol - PO 650 mg Q6H PRN Administration FEVER Albuterol Sulfate 1 amp 08/30/17 12:23 Ventolin 0.083% Nebulizer Soln - NEB Q4H PRN SHORT OF BREATH/WHEEZING Aspirin 81 mg 08/21/17 10:00 08/30/17 10:36 Asa - PO 81 mg DAILY [facility] Administration Atorvastatin Calcium 40 mg 08/20/17 22:00 08/29/17 21:57 Lipitor - PO 40 mg HS [facility] Administration Budesonide/Formoterol Fumarate 1 puff 08/26/17 22:00 08/30/17 10:36 Symbicort 160/4.5mcg - IH 1 puff BID [facility] Administration Carvedilol 12.5 mg 08/20/17 22:00 08/30/17 10:49 Coreg - PO Not Given BID [facility] Diphenhydramine HCl 25 mg 08/28/17 22:00 08/30/17 01:28 Benadryl - PO Not Given HS [facility] Docusate Sodium 300 mg 08/24/17 22:00 08/29/17 21:58 Colace - PO 300 mg HS [facility] Administration Gabapentin 300 mg 08/29/17 11:18 08/30/17 06:13 Neurontin - PO 300 mg TID [facility] Administration Guaifenesin 10 ml 08/24/17 11:46 08/30/17 11:38 Guaifenesin Dm Syrup PO 10 ml Q4HPO [facility] Administration Heparin Sodium (Porcine) 5,000 unit 08/20/17 22:00 08/30/17 06:13 Heparin - SQ 5,000 unit TID [facility] Administration Insulin Aspart 1 vial 08/27/17 22:00 08/29/17 21:57 Novolog Vial Sliding Scale - SQ 6 unit HS [facility] Administration Protocol Insulin Aspart 1 vial 08/30/17 08:00 08/30/17 12:07 Novolog Vial Sliding Scale - SQ 14 units TIDAC [facility] Administration Protocol Insulin Detemir 26 units 08/29/17 22:00 08/29/17 21:56 Levemir Vial SQ 26 units HS [facility] Administration Levothyroxine Sodium 88 mcg 08/21/17 07:00 08/30/17 06:13 Synthroid - PO 88 mcg AM [facility] Administration Pantoprazole Sodium 40 mg 08/27/17 10:00 08/30/17 10:36 Protonix - PO 40 mg DAILY [facility] Administration Polyethylene Glycol 17 gm 08/24/17 22:00 08/30/17 11:34 Miralax (For Daily Use) - PO Not Given BID [facility] Prednisone 30 mg 08/29/17 12:00 08/30/17 10:36 Deltasone - PO 30 mg DAILY [facility] Administration Ranolazine 500 mg 08/20/17 22:00 08/30/17 10:35 Ranexa - PO 500 mg BID [facility] Administration Tiotropium [place] 1 puff 08/26/17 13:00 08/30/17 10:36 Spiriva - IH 1 puff DAILY [facility] Administration Objective: Vital Signs Period Temp Pulse Resp BP Sys/Ibarra Pulse Ox Last 24 Hr 97.8 F-98.3 F 52-60 16-20 113-150/40-70 94-98 Physical Exam: General: NAD Lungs: B/l rales Heart: RRR, S1S2 Abd: Soft, non-tender, non-distended. Normoactive bowel sounds Ext: Warm, well-perfused. 2+ DP/PT bilaterally CBCD WBC 12.4 K/mm3 (4.0-10.0) H 08/24/17 06:20 RBC 3.68 M/mm3 (3.60-5.2) 08/24/17 06:20 Hgb 11.2 GM/dL (10.7-15.3) 08/24/17 06:20 Hct 33.0 % (32.4-45.2) 08/24/17 06:20 MCV 89.8 fl (80-96) 08/24/17 06:20 MCHC 33.9 g/dl (32.0-36.0) 08/24/17 06:20 RDW 13.6 % (11.6-15.6) 08/24/17 06:20 Plt Count 223 K/MM3 (134-434) 08/24/17 06:20 MPV 9.3 fl (7.5-11.1) 08/24/17 06:20 CMP Sodium 133 mmol/L (136-145) L 08/30/17 08:25 Potassium 4.9 mmol/L (3.5-5.1) 08/30/17 08:25 Chloride 96 mmol/L (98-107) L 08/30/17 08:25 Carbon Dioxide 33 mmol/L (21-32) H 08/30/17 08:25 Anion Gap 4 (8-16) L 08/30/17 08:25 BUN 26 mg/dL (7-18) H 08/30/17 08:25 Creatinine 1.0 mg/dL (0.55-1.02) 08/30/17 08:25 Creat Clearance w eGFR 39.21 (>60) 08/24/17 06:20 Random Glucose 243 mg/dL (74-106) H 08/30/17 08:25 Calcium 8.6 mg/dL (8.5-10.1) 08/30/17 08:25 Total Bilirubin 0.2 mg/dL (0.2-1.0) D 08/24/17 06:20 AST 28 U/L (15-37) 08/24/17 06:20 ALT 30 U/L (12-78) 08/24/17 06:20 Alkaline Phosphatase 124 U/L (45-117) H 08/24/17 06:20 Total Protein 6.7 g/dl (6.4-8.2) 08/24/17 06:20 Albumin 3.0 g/dl (3.4-5.0) L 08/24/17 06:20 CARDIAC ENZYMES Creatine Kinase 106 IU/L (26-192) 08/20/17 08:30 Troponin I < 0.02 ng/ml (0.00-0.05) 08/20/17 08:30 Assessment: This is an 82 year old female with PMHx of HTN, HLD, CAD s/p CABG x 3 (2004), systolic heart failure, CVA, IDDM, diabetic polyneuropathy, and hypothyroidism. Admitted for acute on chronic systolic heart failure, pneumonia , and UTI. Plan: 1) Acute numbness and fullness to face, b/l upper and lower extremities - Improved - Continue Neurontin 300mg po tid - Appreciate neuro consult 2) Acute on chronic systolic heart failure - ECHO 4/2 with mild to moderately reduced LV systolic function. Apical septal wall severe hypokinesis. Apical lateral wall severe hypokinesis - Rales today - F/u Chest X-ray 3) Wheezing - Resolved 4) Community acquired pneumonia - Completed course of abx 5) HAROLDO - Resolved 6) CAD - Continue ASA - Continue Lipitor - Continue Coreg (Hold if HR <60) 7) Dysphagia - Diabetic/sodium controlled diet 8) DM - BGM ACHS - ISS ACHS - Levemir 32u sq hs Visit type - Emergency Visit Emergency Visit: Yes ED Registration Date: 08/20/17 Care time: The patient presented to the Emergency Department on the above date and was hospitalized for further evaluation of their emergent condition. - New Patient This patient is new to me today: Yes Date on this admission: 08/30/17 - Critical Care Critical Care patient: No
--- NOTE | 2017-08-30 14:13 | PN ---
Progress Note (short form) - Note Progress Note: Back from [facility] Denies any new complaints Fluctuating blood sugar No hypos Has been snacking between meals Vital Signs Period Temp Pulse Resp BP Sys/Ibarra Pulse Ox Last 24 Hr 97.8 F-98.3 F 52-60 16-20 113-150/40-70 94-98 PE: AOx3 Neck: Supple, No JVD HEENT: PERRL, EOMI Lungs: Few basal crackles CVS: S1S2 Abd: Benign EXt:No edema Neuro: No focal deficit CMP Sodium 133 mmol/L (136-145) L 08/30/17 08:25 Potassium 4.9 mmol/L (3.5-5.1) 08/30/17 08:25 Chloride 96 mmol/L (98-107) L 08/30/17 08:25 Carbon Dioxide 33 mmol/L (21-32) H 08/30/17 08:25 Anion Gap 4 (8-16) L 08/30/17 08:25 BUN 26 mg/dL (7-18) H 08/30/17 08:25 Creatinine 1.0 mg/dL (0.55-1.02) 08/30/17 08:25 Creat Clearance w eGFR 39.21 (>60) 08/24/17 06:20 POC Glucometer 276 UNITS (80-120) 08/30/17 11:14 Random Glucose 243 mg/dL (74-106) H 08/30/17 08:25 Serum Osmolality 306 mosm/kg (278-305) H 08/22/17 07:15 Calcium 8.6 mg/dL (8.5-10.1) 08/30/17 08:25 Magnesium 2.4 mg/dL (1.8-2.4) 08/30/17 08:25 Total Bilirubin 0.2 mg/dL (0.2-1.0) D 08/24/17 06:20 AST 28 U/L (15-37) 08/24/17 06:20 ALT 30 U/L (12-78) 08/24/17 06:20 Alkaline Phosphatase 124 U/L (45-117) H 08/24/17 06:20 Creatine Kinase 106 IU/L (26-192) 08/20/17 08:30 Troponin I < 0.02 ng/ml (0.00-0.05) 08/20/17 08:30 C-Reactive Protein < 0.3 MG/DL (0.00-0.3) 08/30/17 08:25 B-Natriuretic Peptide 3042.66 pg/ml (5-450) H 08/20/17 08:30 Total Protein 6.7 g/dl (6.4-8.2) 08/24/17 06:20 Albumin 3.0 g/dl (3.4-5.0) L 08/24/17 06:20 Vitamin B12 890 pg/ml (180-914) 08/30/17 08:25 TSH 0.67 uIU/ml (0.358-3.74) 08/22/17 07:15 Current Medications Generic Name Dose Route Start Last Admin Trade Name Freq PRN Reason Stop Dose Admin Acetaminophen 650 mg 08/20/17 20:45 08/20/17 21:41 Tylenol - PO 650 mg Q6H PRN Administration FEVER Albuterol Sulfate 1 amp 08/30/17 12:23 Ventolin 0.083% Nebulizer Soln - NEB Q4H PRN SHORT OF BREATH/WHEEZING Aspirin 81 mg 08/21/17 10:00 08/30/17 10:36 Asa - PO 81 mg DAILY [facility] Administration Atorvastatin Calcium 40 mg 08/20/17 22:00 08/29/17 21:57 Lipitor - PO 40 mg HS [facility] Administration Budesonide/Formoterol Fumarate 1 puff 08/26/17 22:00 08/30/17 10:36 Symbicort 160/4.5mcg - IH 1 puff BID [facility] Administration Carvedilol 12.5 mg 08/20/17 22:00 08/30/17 10:49 Coreg - PO Not Given BID [facility] Diphenhydramine HCl 25 mg 08/28/17 22:00 08/30/17 01:28 Benadryl - PO Not Given HS [facility] Docusate Sodium 300 mg 08/24/17 22:00 08/29/17 21:58 Colace - PO 300 mg HS [facility] Administration Gabapentin 300 mg 08/29/17 11:18 08/30/17 06:13 Neurontin - PO 300 mg TID [facility] Administration Guaifenesin 10 ml 08/24/17 11:46 08/30/17 11:38 Guaifenesin Dm Syrup PO 10 ml Q4HPO [facility] Administration Heparin Sodium (Porcine) 5,000 unit 08/20/17 22:00 08/30/17 06:13 Heparin - SQ 5,000 unit TID [facility] Administration Insulin Aspart 1 vial 08/27/17 22:00 08/29/17 21:57 Novolog Vial Sliding Scale - SQ 6 unit HS [facility] Administration Protocol Insulin Aspart 1 vial 08/30/17 08:00 08/30/17 12:07 Novolog Vial Sliding Scale - SQ 14 units TIDAC [facility] Administration Protocol Insulin Detemir 26 units 08/29/17 22:00 08/29/17 21:56 Levemir Vial SQ 26 units HS [facility] Administration Levothyroxine Sodium 88 mcg 08/21/17 07:00 08/30/17 06:13 Synthroid - PO 88 mcg AM [facility] Administration Pantoprazole Sodium 40 mg 08/27/17 10:00 08/30/17 10:36 Protonix - PO 40 mg DAILY [facility] Administration Polyethylene Glycol 17 gm 08/24/17 22:00 08/30/17 11:34 Miralax (For Daily Use) - PO Not Given BID [facility] Prednisone 30 mg 08/29/17 12:00 08/30/17 10:36 Deltasone - PO 30 mg DAILY [facility] Administration Ranolazine 500 mg 08/20/17 22:00 08/30/17 10:35 Ranexa - PO 500 mg BID [facility] Administration Tiotropium [place] 1 puff 08/26/17 13:00 08/30/17 10:36 Spiriva - IH 1 puff DAILY [facility] Administration A/P T2DM: uncontrolled CHF Pneumonia HAROLDO UTI Hyponatremia HTN HLD CAD Neuropathy Hypothyroidism: TSH 0.67 BGM QACHS Increase Levemir 32 units daily Increase Novolog Coverage On Prednisone 30 daily Levothyroxine
--- NOTE | 2017-08-30 15:40 | PN ---
Progress Note, Physician History of Present Illness: Pt seen and examined at bedside. She is awake and alert. She feels that her breathing is improved. - Current Medication List Current Medications: Active Medications Acetaminophen (Tylenol -) 650 mg PO Q6H PRN PRN Reason: FEVER Last Admin: 08/20/17 21:41 Dose: 650 mg Albuterol Sulfate (Ventolin 0.083% Nebulizer Soln -) 1 amp NEB Q4H PRN PRN Reason: SHORT OF BREATH/WHEEZING Aspirin (Asa -) 81 mg PO DAILY [facility] Last Admin: 08/30/17 10:36 Dose: 81 mg Atorvastatin Calcium (Lipitor -) 40 mg PO HS [facility] Last Admin: 08/29/17 21:57 Dose: 40 mg Budesonide/Formoterol Fumarate (Symbicort 160/4.5mcg -) 1 puff IH BID [facility] Last Admin: 08/30/17 10:36 Dose: 1 puff Carvedilol (Coreg -) 12.5 mg PO BID [facility] Last Admin: 08/30/17 10:49 Dose: Not Given Diphenhydramine HCl (Benadryl -) 25 mg PO HS [facility] Last Admin: 08/30/17 01:28 Dose: Not Given Docusate Sodium (Colace -) 300 mg PO HS [facility] Last Admin: 08/29/17 21:58 Dose: 300 mg Gabapentin (Neurontin -) 300 mg PO TID [facility] Last Admin: 08/30/17 14:41 Dose: 300 mg Guaifenesin (Guaifenesin Dm Syrup) 10 ml PO Q4HPO [facility] Last Admin: 08/30/17 15:30 Dose: 10 ml Heparin Sodium (Porcine) (Heparin -) 5,000 unit SQ TID [facility] Last Admin: 08/30/17 14:41 Dose: 5,000 unit Insulin Aspart (Novolog Vial Sliding Scale -) 1 vial SQ TIDAC [facility] PRN Reason: Protocol Insulin Aspart (Novolog Vial Sliding Scale -) 1 vial SQ HS [facility] PRN Reason: Protocol Insulin Detemir (Levemir Vial) 32 units SQ HS [facility] Levothyroxine Sodium (Synthroid -) 88 mcg PO AM [facility] Last Admin: 08/30/17 06:13 Dose: 88 mcg Pantoprazole Sodium (Protonix -) 40 mg PO DAILY [facility] Last Admin: 08/30/17 10:36 Dose: 40 mg Polyethylene Glycol (Miralax (For Daily Use) -) 17 gm PO BID [facility] Last Admin: 08/30/17 11:34 Dose: Not Given Prednisone (Deltasone -) 30 mg PO DAILY [facility] Last Admin: 08/30/17 10:36 Dose: 30 mg Ranolazine (Ranexa -) 500 mg PO BID [facility] Last Admin: 08/30/17 10:35 Dose: 500 mg Tiotropium [place] (Spiriva -) 1 puff IH DAILY [facility] Last Admin: 08/30/17 10:36 Dose: 1 puff - Objective Vital Signs: Vital Signs Temperature 97.9 F 08/30/17 14:41 Pulse Rate 57 L 08/30/17 14:41 Respiratory Rate 19 08/30/17 14:41 Blood Pressure 114/53 08/30/17 14:41 O2 Sat by Pulse Oximetry (%) 94 L 08/30/17 11:47 Constitutional: Yes: Calm Eyes: Yes: Conjunctiva Clear HENT: Yes: Atraumatic Neck: Yes: Supple Cardiovascular: Yes: S1, S2 Respiratory: Yes: CTA Bilaterally Gastrointestinal: Yes: Soft, Abdomen, Obese Genitourinary: Yes: WNL Musculoskeletal: Yes: WNL Edema: No Neurological: Yes: Oriented Psychiatric: Yes: Oriented Labs: CBC, BMP 08/24/17 06:20 08/30/17 08:25 INR, PTT INR 1.03 (0.82-1.09) 08/20/17 08:30 Problem List - Problems (1) UTI (urinary tract infection) Code(s): N39.0 - URINARY TRACT INFECTION, SITE NOT SPECIFIED Qualifiers: Urinary tract infection type: site unspecified Hematuria presence: without hematuria Qualified Code(s): N39.0 - Urinary tract infection, site not specified (2) Hyponatremia Code(s): E87.1 - HYPO-OSMOLALITY AND HYPONATREMIA Assessment/Plan Current Medications Generic Name Dose Route Start Last Admin Trade Name Freq PRN Reason Stop Dose Admin Acetaminophen 650 mg 08/20/17 20:45 08/20/17 21:41 Tylenol - PO 650 mg Q6H PRN Administration FEVER Albuterol Sulfate 1 amp 08/30/17 12:23 Ventolin 0.083% Nebulizer Soln - NEB Q4H PRN SHORT OF BREATH/WHEEZING Aspirin 81 mg 08/21/17 10:00 08/30/17 10:36 Asa - PO 81 mg DAILY [facility] Administration Atorvastatin Calcium 40 mg 08/20/17 22:00 08/29/17 21:57 Lipitor - PO 40 mg HS [facility] Administration Budesonide/Formoterol Fumarate 1 puff 08/26/17 22:00 08/30/17 10:36 Symbicort 160/4.5mcg - IH 1 puff BID [facility] Administration Carvedilol 12.5 mg 08/20/17 22:00 08/30/17 10:49 Coreg - PO Not Given BID [facility] Diphenhydramine HCl 25 mg 08/28/17 22:00 08/30/17 01:28 Benadryl - PO Not Given [facility] Docusate Sodium 300 mg 08/24/17 22:00 08/29/17 21:58 Colace - PO 300 mg HS [facility] Administration Gabapentin 300 mg 08/29/17 11:18 08/30/17 14:41 Neurontin - PO 300 mg TID [facility] Administration Guaifenesin 10 ml 08/24/17 11:46 08/30/17 15:30 Guaifenesin Dm Syrup PO 10 ml Q4HPO [facility] Administration Heparin Sodium (Porcine) 5,000 unit 08/20/17 22:00 08/30/17 14:41 Heparin - SQ 5,000 unit TID [facility] Administration Insulin Aspart 1 vial 08/30/17 16:30 Novolog Vial Sliding Scale - SQ TIDAC [facility] Protocol Insulin Aspart 1 vial 08/30/17 22:00 Novolog Vial Sliding Scale - SQ HS [facility] Protocol Insulin Detemir 32 units 08/30/17 22:00 Levemir Vial SQ HS [facility] Levothyroxine Sodium 88 mcg 08/21/17 07:00 08/30/17 06:13 Synthroid - PO 88 mcg AM [facility] Administration Pantoprazole Sodium 40 mg 08/27/17 10:00 08/30/17 10:36 Protonix - PO 40 mg DAILY [facility] Administration Polyethylene Glycol 17 gm 08/24/17 22:00 08/30/17 11:34 Miralax (For Daily Use) - PO Not Given BID [facility] Prednisone 30 mg 08/29/17 12:00 08/30/17 10:36 Deltasone - PO 30 mg DAILY [facility] Administration Ranolazine 500 mg 08/20/17 22:00 04/09/18 10:35 Ranexa - PO 500 mg BID [facility] Administration Tiotropium [place] 1 puff 08/26/17 13:00 08/30/17 10:36 Spiriva - IH 1 puff DAILY [facility] Administration Impression 1. HAROLDO 2. hyponatremia 3. DM uncontrolled 4. hypothyroidism 5. CHF 6. COPD 7. hyperkalemia Plan - renal function stabilizing - follow cxr - taper steroids as tolerated - monitor blood sugar - will follow Dr Berman
[2017-08-30] MEDS ORDERED: INSULIN DETEMIR 100 UNITS/ML MDV SQ SCH (22:00)
[2017-08-30] MEDS ORDERED: INSULIN SLIDING SCALE (NOVOLOG) 1 VIAL SQ SCH (22:00)
[2017-08-30] MEDS: DOCUSATE SODIUM 100 MG CAPSULE (FP) PO SCH (22:11)
[2017-08-30] MEDS: ATORVASTATIN CA 40 MG TABLET (FP) PO SCH (22:14)
[2017-08-31] MEDS: guaiFENesin/D-METHORPHAN HB 5 ML UNIT-DOSE CUPS PO SCH ×4 (02:10→15:00)
[2017-08-31] MEDS: LEVOTHYROXINE NA 88 MCG TABLET (FP) PO SCH (06:40)
[2017-08-31] MEDS: GABAPENTIN 300 MG CAPSULE (FP) PO SCH ×2 (06:40→15:00)
[2017-08-31] MEDS: INSULIN SLIDING SCALE (NOVOLOG) 1 VIAL SQ SCH ×2 (06:40→12:01)
[2017-08-31] MEDS: HEPARIN NA (PORCINE) 5,000 UNITS/ML 1ML VIAL SQ SCH ×2 (06:41→14:59)
[2017-08-31 08:30] LABS: EOS % 1.3 % (0-4.5); HEMATOCRIT 35.1 % (32.4-45.2); LYMPH % 30.4 % (8-40); MCH 30.7 pg (25.7-33.7); MCHC 34.1 g/dl (32.0-36.0); MEAN PLT VOLUME 8.6 fl (7.5-11.1); MONO % 7.4 % (3.8-10.2); NEUT % 59.9 % (42.8-82.8); PLATELET COUNT 255 K/MM3 (134-434); RDW 13.6 % (11.6-15.6); WHITE BLOOD COUNT 13.8 K/mm3 (4.0-10.0)
[2017-08-31 08:33] LABS: CALCIUM 8.9 mg/dL (8.5-10.1); CHLORIDE 99 mmol/L (98-107); POTASSIUM 4.4 mmol/L (3.5-5.1); SGOT/AST 11 U/L (15-37); SODIUM 137 mmol/L (136-145)
[2017-08-31 08:38] LABS: ALBUMIN 2.9 g/dl (3.4-5.0); ALK PHOS 124 U/L (45-117); ANION GAP 11 (8-16); BILIRUBIN,TOTAL 0.4 mg/dL (0.2-1.0); BLOOD UREA NITROGEN 24 mg/dL (7-18); CO2 27 mmol/L (21-32); CREATININE 1.1 mg/dL (0.55-1.02); GLUCOSE,RANDOM 80 mg/dL (74-106); SGPT/ALT 21 U/L (12-78); TOT PROT 6.3 g/dl (6.4-8.2)
[2017-08-31] MEDS ORDERED: PT OWN MED DRAWER 7, Y5N ONE (10:10)
[2017-08-31] MEDS: ASPIRIN 81 MG CHEWABLE TABLETS PO SCH (10:24)
[2017-08-31] MEDS: predniSONE 10 MG TABLET (UD) PO SCH (10:25)
[2017-08-31] MEDS: CARVEDILOL 12.5 MG TABLET (FP) PO SCH (10:25)
[2017-08-31] MEDS: TIOTROPIUM BROMIDE 18 MCG CAPSULES IH SCH (10:25)
[2017-08-31] MEDS: BUDESONIDE/FORMETEROL FUMARATE 160/4.5 mcg INHALER IH SCH (10:25)
[2017-08-31] MEDS: RANOLAZINE E.R. 500 MG TABLET (FP) PO SCH (10:25)
[2017-08-31] MEDS: PANTOPRAZOLE 40 MG TABLET (FP) PO SCH (10:25)
[2017-08-31] MEDS: POLYETHYLENE GLYCOL 3350 119 GM BTL PO SCH (10:28)
--- NOTE | 2017-08-31 11:28 | PN ---
Progress Note (short form) - Note Progress Note: Denies any new complaints Blood sugar better No hypos Has been snacking between meals Vital Signs Period Temp Pulse Resp BP Sys/Ibarra Pulse Ox Last 24 Hr 97.8 F-97.9 F 52-62 18-20 113-143/40-86 94-94 PE: AOx3 Neck: Supple, No JVD HEENT: PERRL, EOMI Lungs: Few basal crackles CVS: S1S2 Abd: Benign EXt:No edema Neuro: No focal deficit CMP Sodium 137 mmol/L (136-145) 08/31/17 07:30 Potassium 4.4 mmol/L (3.5-5.1) 08/31/17 07:30 Chloride 99 mmol/L (98-107) 08/31/17 07:30 Carbon Dioxide 27 mmol/L (21-32) 08/31/17 07:30 Anion Gap 11 (8-16) 08/31/17 07:30 BUN 24 mg/dL (7-18) H 08/31/17 07:30 Creatinine 1.1 mg/dL (0.55-1.02) H 08/31/17 07:30 Creat Clearance w eGFR 47.55 (>60) 08/31/17 07:30 POC Glucometer 106 UNITS (80-120) 08/31/17 06:02 Random Glucose 80 mg/dL (74-106) 08/31/17 07:30 Hemoglobin A1c % 10.5 % (4.8-6.0) H 08/31/17 07:30 Serum Osmolality 306 mosm/kg (278-305) H 08/22/17 07:15 Calcium 8.9 mg/dL (8.5-10.1) 08/31/17 07:30 Magnesium 2.4 mg/dL (1.8-2.4) 08/30/17 08:25 Total Bilirubin 0.4 mg/dL (0.2-1.0) D 08/31/17 07:30 AST 11 U/L (15-37) L 08/31/17 07:30 ALT 21 U/L (12-78) 08/31/17 07:30 Alkaline Phosphatase 124 U/L (45-117) H 08/31/17 07:30 Creatine Kinase 106 IU/L (26-192) 08/20/17 08:30 Troponin I < 0.02 ng/ml (0.00-0.05) 08/20/17 08:30 C-Reactive Protein < 0.3 MG/DL (0.00-0.3) 08/30/17 08:25 B-Natriuretic Peptide 3042.66 pg/ml (5-450) H 08/20/17 08:30 Total Protein 6.3 g/dl (6.4-8.2) L 08/31/17 07:30 Albumin 2.9 g/dl (3.4-5.0) L 08/31/17 07:30 Vitamin B12 890 pg/ml (180-914) 08/30/17 08:25 TSH 0.67 uIU/ml (0.358-3.74) 08/22/17 07:15 Current Medications Generic Name Dose Route Start Last Admin Trade Name Freq PRN Reason Stop Dose Admin Acetaminophen 650 mg 08/20/17 20:45 08/20/17 21:41 Tylenol - PO 650 mg Q6H PRN Administration FEVER Albuterol Sulfate 1 amp 08/30/17 12:23 Ventolin 0.083% Nebulizer Soln - NEB Q4H PRN SHORT OF BREATH/WHEEZING Aspirin 81 mg 08/21/17 10:00 08/31/17 10:24 Asa - PO 81 mg DAILY [facility] Administration Atorvastatin Calcium 40 mg 08/20/17 22:00 08/30/17 22:14 Lipitor - PO 40 mg HS PALOMA Administration Budesonide/Formoterol Fumarate 1 puff 08/26/17 22:00 08/31/17 10:25 Symbicort 160/4.5mcg - IH 1 puff BID PALOMA Administration Carvedilol 12.5 mg 08/20/17 22:00 08/31/17 10:25 Coreg - PO 12.5 mg BID PALOMA Administration Diphenhydramine HCl 25 mg 08/28/17 22:00 08/30/17 22:11 Benadryl - PO 25 mg HS PALOMA Administration Docusate Sodium 300 mg 08/24/17 22:00 08/30/17 22:11 Colace - PO 300 mg HS PALOMA Administration Gabapentin 300 mg 08/29/17 11:18 08/31/17 06:40 Neurontin - PO 300 mg TID PALOMA Administration Guaifenesin 10 ml 08/24/17 11:46 08/31/17 10:27 Guaifenesin Dm Syrup PO 10 ml Q4HPO PALOMA Administration Heparin Sodium (Porcine) 5,000 unit 08/20/17 22:00 08/31/17 06:41 Heparin - SQ 5,000 unit TID PALOMA Administration Insulin Aspart 1 vial 08/30/17 16:30 08/31/17 06:40 Novolog Vial Sliding Scale - SQ 6 units TIDAC PALOMA Administration Protocol Insulin Aspart 1 vial 08/30/17 22:00 08/30/17 22:15 Novolog Vial Sliding Scale - SQ 6 units HS PALOMA Administration Protocol Insulin Detemir 32 units 08/30/17 22:00 08/30/17 22:12 Levemir Vial SQ 32 units HS PALOMA Administration Levothyroxine Sodium 88 mcg 08/21/17 07:00 08/31/17 06:40 Synthroid - PO 88 mcg AM PALOMA Administration Pantoprazole Sodium 40 mg 08/27/17 10:00 08/31/17 10:25 Protonix - PO 40 mg DAILY PALOMA Administration Polyethylene Glycol 17 gm 08/24/17 22:00 08/31/17 10:28 Miralax (For Daily Use) - PO Not Given BID PALOMA Prednisone 30 mg 08/29/17 12:00 08/31/17 10:25 Deltasone - PO 30 mg DAILY PALOMA Administration Ranolazine 500 mg 08/20/17 22:00 08/31/17 10:25 Ranexa - PO 500 mg BID PALOMA Administration Tiotropium [place] 1 puff 08/26/17 13:00 08/31/17 10:25 Spiriva - IH 1 puff DAILY PALOMA Administration A/P T2DM: uncontrolled CHF Pneumonia HAROLDO: UTI Hyponatremia HTN HLD CAD Neuropathy Hypothyroidism: TSH 0.67 BGM QACHS Levemir 32 units daily Novolog Coverage Monitor blood sugar on current Insulin regimen for now. On Prednisone 30 daily Levothyroxine
--- NOTE | 2017-08-31 14:01 | DS ---
Physical Examination Vital Signs: Vital Signs Temperature 97.8 F 08/31/17 10:00 Pulse Rate 62 08/31/17 10:00 Respiratory Rate 18 08/31/17 10:00 Blood Pressure 119/55 08/31/17 10:00 O2 Sat by Pulse Oximetry (%) 94 L 08/30/17 21:00 Labs: CBC, BMP 08/31/17 07:30 08/31/17 07:30 Discharge Summary Reason For Visit: UTI; ACUTE ON CHRONIC CHF Current Active Problems Bronchospasm (Acute) CHF exacerbation (Acute) UTI (urinary tract infection) (Acute) Condition: Improved - Instructions Diet, Activity, Other Instructions: Please return to the ED with new, persistent, or worsening symptoms. Please follow-up with providers as indicated. Novolog sliding scale before breakfast, lunch, and dinner Blood Sugar Units of Insulin 101-150 6 151-200 12 201-250 16 251-300 18 301-350 20 351-400 22 Greater than 400 22, Call MD Novolog sliding scale before bedtime Blood Sugar Units of Insulin 101-150 0 151-200 0 201-250 4 251-300 6 301-350 8 351-400 10 Greater than 400 Call MD Referrals: Jose Hand MD [Staff Physician] - (Please follow-up with Dr. Hand within 1 week. ) Sebastian Vargas MD [Staff Physician] - (Please follow-up with Dr. Vargas within 1 week) Luz Kaur MD [Primary Care Provider] - 1 Week Sharif Mena MD [Staff Physician] - (Please follow-up with Dr. Mena within 1 week for further management of your diabetes) Disposition: VNS/HOME HEALTH CARE - Home Medications Comprehensive Discharge Medication List: Ambulatory Orders Aspirin [ASA -] 81 mg PO DAILY 08/20/17 Atorvastatin Ca [Lipitor] 40 mg PO HS 08/20/17 Carvedilol [Coreg -] 12.5 mg PO BID 08/20/17 Guaifenesin Dm [Robitussin Dm -] 10 ml PO Q4H PRN 08/20/17 Levothyroxine [Synthroid -] 88 mcg PO DAILY 08/20/17 Omeprazole 20 mg PO DAILY 08/20/17 Polyethylene Glycol 3350 [Miralax 119 gm Btl -] 17 gm PO DAILY 08/20/17 Ranolazine [Ranexa] 500 mg PO BID 08/20/17 Walker [Ultra-Light Rollator] 1 each MC DAILY #1 each 08/29/17 Acetaminophen [Tylenol .Regular Strength -] 650 mg PO Q6H PRN tablet 08/31/17 Albuterol 0.083% Nebulizer Anjali [Ventolin 0.083% Nebulizer Soln -] 1 amp NEB Q4H PRN #120 amp 08/31/17 Budesonide/Formeterol Fumarate [SYMBICORT 160/4.5mcg -] 1 puff IH BID #1 inhaler 08/31/17 Docusate Sodium [Colace -] 300 mg PO HS capsule 08/31/17 Gabapentin [Neurontin -] 300 mg PO TID #90 capsule 08/31/17 Insulin (Levemir) [Levemir Vial] 32 units SQ HS #20 ml 08/31/17 Insulin Sliding Scale [Novolog Vial Sliding Scale -] 1 vial SQ HS #40 units 03/10 Insulin Sliding Scale [Novolog Vial Sliding Scale -] 1 vial SQ TIDAC #100 ml 03/10 Tiotropium [place] [Spiriva] 1 puff IH DAILY #30 cap 08/31/17 predniSONE [Deltasone -] 0 mg PO ASDIR #9 tablet 08/31/17
--- NOTE | 2017-08-31 15:00 | PN ---
Progress Note (short form) - Note Progress Note: No acute events overnight. Afebrile. Some mild residual cough. Intake & Output 08/28/17 08/29/17 08/30/17 08/31/17 23:59 23:59 23:59 23:59 Intake Total 800 250 200 Balance 800 250 200 Weight 170 lb 11.2 oz Last Vital Signs Temp Pulse Resp BP Pulse Ox 97.8 F 62 18 119/55 94 L 08/31/17 10:00 08/31/17 10:00 08/31/17 10:00 08/31/17 10:00 08/30/17 21:00 Active Medications Acetaminophen (Tylenol -) 650 mg PO Q6H PRN PRN Reason: FEVER Last Admin: 08/20/17 21:41 Dose: 650 mg Albuterol Sulfate (Ventolin 0.083% Nebulizer Soln -) 1 amp NEB Q4H PRN PRN Reason: SHORT OF BREATH/WHEEZING Aspirin (Asa -) 81 mg PO DAILY [facility] Last Admin: 08/31/17 10:24 Dose: 81 mg Atorvastatin Calcium (Lipitor -) 40 mg PO HS [facility] Last Admin: 08/30/17 22:14 Dose: 40 mg Budesonide/Formoterol Fumarate (Symbicort 160/4.5mcg -) 1 puff IH BID [facility] Last Admin: 08/31/17 10:25 Dose: 1 puff Carvedilol (Coreg -) 12.5 mg PO BID [facility] Last Admin: 08/31/17 10:25 Dose: 12.5 mg Diphenhydramine HCl (Benadryl -) 25 mg PO HS [facility] Last Admin: 08/30/17 22:11 Dose: 25 mg Docusate Sodium (Colace -) 300 mg PO HS [facility] Last Admin: 08/30/17 22:11 Dose: 300 mg Gabapentin (Neurontin -) 300 mg PO TID [facility] Last Admin: 08/31/17 15:00 Dose: 300 mg Guaifenesin (Guaifenesin Dm Syrup) 10 ml PO Q4HPO [facility] Last Admin: 08/31/17 15:00 Dose: 10 ml Heparin Sodium (Porcine) (Heparin -) 5,000 unit SQ TID [facility] Last Admin: 08/31/17 14:59 Dose: 5,000 unit Insulin Aspart (Novolog Vial Sliding Scale -) 1 vial SQ TIDAC [facility] PRN Reason: Protocol Last Admin: 08/31/17 12:01 Dose: 12 units Insulin Aspart (Novolog Vial Sliding Scale -) 1 vial SQ HS [facility] PRN Reason: Protocol Last Admin: 08/30/17 22:15 Dose: 6 units Insulin Detemir (Levemir Vial) 32 units SQ HS [facility] Last Admin: 08/30/17 22:12 Dose: 32 units Levothyroxine Sodium (Synthroid -) 88 mcg PO AM [facility] Last Admin: 08/31/17 06:40 Dose: 88 mcg Pantoprazole Sodium (Protonix -) 40 mg PO DAILY [facility] Last Admin: 08/31/17 10:25 Dose: 40 mg Polyethylene Glycol (Miralax (For Daily Use) -) 17 gm PO BID [facility] Last Admin: 08/31/17 10:28 Dose: Not Given Prednisone (Deltasone -) 30 mg PO DAILY [facility] Last Admin: 08/31/17 10:25 Dose: 30 mg Ranolazine (Ranexa -) 500 mg PO BID [facility] Last Admin: 08/31/17 10:25 Dose: 500 mg Tiotropium [place] (Spiriva -) 1 puff IH DAILY [facility] Last Admin: 08/31/17 10:25 Dose: 1 puff Constitutional: Yes: NAD m Eyes: Yes: WNL HENT: Yes: WNL, (-) Pallor Cardiovascular: Yes: Regular Rate and Rhythm, S1, S2 Respiratory: Yes: few scattered rhonchi Gastrointestinal: Yes: Normal Bowel Sounds, Soft Extremities: Yes: WNL Edema: No Labs: Laboratory Results - last 24 hr 08/30/17 08/30/17 08/31/17 17:06 21:28 06:02 WBC RBC Hgb Hct MCV MCH MCHC RDW Plt Count MPV Neutrophils % Lymphocytes % Monocytes % Eosinophils % Basophils % Sodium Potassium Chloride Carbon Dioxide Anion Gap BUN Creatinine Creat Clearance w eGFR POC Glucometer 175 258 106 Random Glucose Hemoglobin A1c % Calcium Total Bilirubin AST ALT Alkaline Phosphatase Total Protein Albumin 08/31/17 08/31/17 08/31/17 07:30 07:30 07:30 WBC 13.8 H RBC 3.90 Hgb 12.0 Hct 35.1 MCV 90.0 MCH 30.7 MCHC 34.1 RDW 13.6 Plt Count 255 MPV 8.6 Neutrophils % 59.9 D Lymphocytes % 30.4 D Monocytes % 7.4 Eosinophils % 1.3 D Basophils % 1.0 D Sodium 137 Potassium 4.4 Chloride 99 Carbon Dioxide 27 Anion Gap 11 BUN 24 H Creatinine 1.1 H Creat Clearance w eGFR 47.55 POC Glucometer Random Glucose 80 Hemoglobin A1c % 10.5 H Calcium 8.9 Total Bilirubin 0.4 D AST 11 L ALT 21 Alkaline Phosphatase 124 H Total Protein 6.3 L Albumin 2.9 L 08/31/17 11:56 WBC RBC Hgb Hct MCV MCH MCHC RDW Plt Count MPV Neutrophils % Lymphocytes % Monocytes % Eosinophils % Basophils % Sodium Potassium Chloride Carbon Dioxide Anion Gap BUN Creatinine Creat Clearance w eGFR POC Glucometer 170 Random Glucose Hemoglobin A1c % Calcium Total Bilirubin AST ALT Alkaline Phosphatase Total Protein Albumin Problem List - Problems (1) Bronchospasm Code(s): J98.01 - ACUTE BRONCHOSPASM (2) CHF exacerbation Code(s): I50.9 - HEART FAILURE, UNSPECIFIED Qualifiers: Heart failure type: unspecified Qualified Code(s): I50.9 - Heart failure, unspecified (3) Hyponatremia Code(s): E87.1 - HYPO-OSMOLALITY AND HYPONATREMIA Assessment/Plan IMP CHF IMPROVED RECENT PNEUMONIA HAROLDO DM ? COPD HYPOTHYROID HYPONATREMIA PLAN O2 PRN INHALED BRONCHODILATORS PREDNISONE TAPER D/C PLANNING DR ALVA
[2017-08-31 15:09] VITALS: BP 107/45; PULSE 57; TEMP 97.6
--- NOTE | 2017-08-31 16:05 | PN ---
Progress Note, Physician History of Present Illness: Pt seen and examined at bedside. She is awake and alert. She feels that her breathing is improved. - Current Medication List Current Medications: Active Medications Acetaminophen (Tylenol -) 650 mg PO Q6H PRN PRN Reason: FEVER Last Admin: 08/20/17 21:41 Dose: 650 mg Albuterol Sulfate (Ventolin 0.083% Nebulizer Soln -) 1 amp NEB Q4H PRN PRN Reason: SHORT OF BREATH/WHEEZING Aspirin (Asa -) 81 mg PO DAILY [facility] Last Admin: 08/31/17 10:24 Dose: 81 mg Atorvastatin Calcium (Lipitor -) 40 mg PO HS [facility] Last Admin: 08/30/17 22:14 Dose: 40 mg Budesonide/Formoterol Fumarate (Symbicort 160/4.5mcg -) 1 puff IH BID [facility] Last Admin: 08/31/17 10:25 Dose: 1 puff Carvedilol (Coreg -) 12.5 mg PO BID [facility] Last Admin: 08/31/17 10:25 Dose: 12.5 mg Diphenhydramine HCl (Benadryl -) 25 mg PO HS [facility] Last Admin: 08/30/17 22:11 Dose: 25 mg Docusate Sodium (Colace -) 300 mg PO HS [facility] Last Admin: 08/30/17 22:11 Dose: 300 mg Gabapentin (Neurontin -) 300 mg PO TID [facility] Last Admin: 08/31/17 15:00 Dose: 300 mg Guaifenesin (Guaifenesin Dm Syrup) 10 ml PO Q4HPO [facility] Last Admin: 08/31/17 15:00 Dose: 10 ml Heparin Sodium (Porcine) (Heparin -) 5,000 unit SQ TID [facility] Last Admin: 08/31/17 14:59 Dose: 5,000 unit Insulin Aspart (Novolog Vial Sliding Scale -) 1 vial SQ TIDAC [facility] PRN Reason: Protocol Last Admin: 08/31/17 12:01 Dose: 12 units Insulin Aspart (Novolog Vial Sliding Scale -) 1 vial SQ HS [facility] PRN Reason: Protocol Last Admin: 08/30/17 22:15 Dose: 6 units Insulin Detemir (Levemir Vial) 32 units SQ [facility] Last Admin: 08/30/17 22:12 Dose: 32 units Levothyroxine Sodium (Synthroid -) 88 mcg PO AM [facility] Last Admin: 08/31/17 06:40 Dose: 88 mcg Pantoprazole Sodium (Protonix -) 40 mg PO DAILY [facility] Last Admin: 08/31/17 10:25 Dose: 40 mg Polyethylene Glycol (Miralax (For Daily Use) -) 17 gm PO BID [facility] Last Admin: 08/31/17 10:28 Dose: Not Given Prednisone (Deltasone -) 30 mg PO DAILY [facility] Last Admin: 08/31/17 10:25 Dose: 30 mg Ranolazine (Ranexa -) 500 mg PO BID [facility] Last Admin: 08/31/17 10:25 Dose: 500 mg Tiotropium [place] (Spiriva -) 1 puff IH DAILY [facility] Last Admin: 08/31/17 10:25 Dose: 1 puff - Objective Vital Signs: Vital Signs Temperature 97.6 F 08/31/17 15:08 Pulse Rate 57 L 08/31/17 15:08 Respiratory Rate 18 08/31/17 15:08 Blood Pressure 107/45 08/31/17 15:08 O2 Sat by Pulse Oximetry (%) 94 L 08/30/17 21:00 Constitutional: Yes: Calm Eyes: Yes: Conjunctiva Clear HENT: Yes: Atraumatic Neck: Yes: Supple Cardiovascular: Yes: S1, S2 Respiratory: Yes: CTA Bilaterally, On Nasal O2 Gastrointestinal: Yes: Soft Genitourinary: Yes: WNL Musculoskeletal: Yes: WNL Edema: No Neurological: Yes: Oriented Psychiatric: Yes: Oriented Labs: CBC, BMP 08/31/17 07:30 08/31/17 07:30 INR, PTT INR 1.03 (0.82-1.09) 08/20/17 08:30 Problem List - Problems (1) UTI (urinary tract infection) Code(s): N39.0 - URINARY TRACT INFECTION, SITE NOT SPECIFIED Qualifiers: Urinary tract infection type: site unspecified Hematuria presence: without hematuria Qualified Code(s): N39.0 - Urinary tract infection, site not specified (2) Hyponatremia Code(s): E87.1 - HYPO-OSMOLALITY AND HYPONATREMIA Assessment/Plan Current Medications Generic Name Dose Route Start Last Admin Trade Name Freq PRN Reason Stop Dose Admin Acetaminophen 650 mg 08/20/17 20:45 08/20/17 21:41 Tylenol - PO 650 mg Q6H PRN Administration FEVER Albuterol Sulfate 1 amp 08/30/17 12:23 Ventolin 0.083% Nebulizer Soln - NEB Q4H PRN SHORT OF BREATH/WHEEZING Aspirin 81 mg 08/21/17 10:00 08/31/17 10:24 Asa - PO 81 mg DAILY [facility] Administration Atorvastatin Calcium 40 mg 08/20/17 22:00 08/30/17 22:14 Lipitor - PO 40 mg HS [facility] Administration Budesonide/Formoterol Fumarate 1 puff 08/26/17 22:00 08/31/17 10:25 Symbicort 160/4.5mcg - IH 1 puff BID [facility] Administration Carvedilol 12.5 mg 08/20/17 22:00 08/31/17 10:25 Coreg - PO 12.5 mg BID [facility] Administration Diphenhydramine HCl 25 mg 08/28/17 22:00 08/30/17 22:11 Benadryl - PO 25 mg HS [facility] Administration Docusate Sodium 300 mg 08/24/17 22:00 08/30/17 22:11 Colace - PO 300 mg HS [facility] Administration Gabapentin 300 mg 08/29/17 11:18 08/31/17 15:00 Neurontin - PO 300 mg TID [facility] Administration Guaifenesin 10 ml 08/24/17 11:46 08/31/17 15:00 Guaifenesin Dm Syrup PO 10 ml Q4HPO [facility] Administration Heparin Sodium (Porcine) 5,000 unit 08/20/17 22:00 08/31/17 14:59 Heparin - SQ 5,000 unit TID [facility] Administration Insulin Aspart 1 vial 08/30/17 16:30 08/31/17 12:01 Novolog Vial Sliding Scale - SQ 12 units TIDAC [facility] Administration Protocol Insulin Aspart 1 vial 08/30/17 22:00 08/30/17 22:15 Novolog Vial Sliding Scale - SQ 6 units HS [facility] Administration Protocol Insulin Detemir 32 units 08/30/17 22:00 08/30/17 22:12 Levemir Vial SQ 32 units HS [facility] Administration Levothyroxine Sodium 88 mcg 08/21/17 07:00 08/31/17 06:40 Synthroid - PO 88 mcg AM [facility] Administration Pantoprazole Sodium 40 mg 08/27/17 10:00 08/31/17 10:25 Protonix - PO 40 mg DAILY [facility] Administration Polyethylene Glycol 17 gm 08/24/17 22:00 08/31/17 10:28 Miralax (For Daily Use) - PO Not Given BID [facility] Prednisone 30 mg 08/29/17 12:00 08/31/17 10:25 Deltasone - PO 30 mg DAILY [facility] Administration Ranolazine 500 mg 08/20/17 22:00 08/31/17 10:25 Ranexa - PO 500 mg BID [facility] Administration Tiotropium [place] 1 puff 08/26/17 13:00 08/31/17 10:25 Spiriva - IH 1 puff DAILY [facility] Administration Impression 1. HAROLDO 2. hyponatremia 3. DM uncontrolled 4. hypothyroidism 5. CHF 6. COPD 7. hyperkalemia Plan - pt appears clinically improved - will see if office for follow up and renal workup - steroid taper - will follow Dr Berman
== END 2017-08-31 16:31 | disposition home health service (06) | DRG 291 ==
LOC: JER 06:52 → JERBED 12:26 → J5S 18:43
PROVIDERS: ADMIT Internal Medicine; ATTEND Registered Nurse
DX: I11.0 Hypertensive heart disease with heart failure (principal); J18.9 Pneumonia, unspecified organism; G92 Toxic encephalopathy; N39.0 Urinary tract infection, site not specified; E87.1 Hypo-osmolality and hyponatremia; N17.9 Acute kidney failure, unspecified; I50.23 Acute on chronic systolic (congestive) heart failure; E78.5 Hyperlipidemia, unspecified; E11.42 Type 2 diabetes mellitus with diabetic polyneuropathy; Z79.4 Long term (current) use of insulin; E11.65 Type 2 diabetes mellitus with hyperglycemia; E03.9 Hypothyroidism, unspecified; I25.10 Atherosclerotic heart disease of native coronary artery without angina pectoris; Z95.1 Presence of aortocoronary bypass graft; R13.10 Dysphagia, unspecified; K59.00 Constipation, unspecified; J98.01 Acute bronchospasm; E87.5 Hyperkalemia
CPT/HCPCS: 36415; 70450-TC; 71045-TC-FY; 71046-TC-FY; 74230-TC-FY; 76775-TC; 80048; 80053; 81003; 81015; 82272; 82436; 82550; 82570; 82607; 82962; 83036; 83735; 83880; 83930; 83935; 84133; 84300; 84443; 84484; 85025; 85027; 85610; 85651; 86140; 87040; 87086; 87804; 87899; 92611-GN; 93005; 93010; 93306-TC; 94640; 94761; 97116-GP; 97161-GP; 99282-25; J1644

== ENCOUNTER 2017-09-20 01:35 | Inpatient (IN) | payer MEDICARE, OTHER ==
[2017-09-20 01:56] VITALS: BMI 29.1
[2017-09-20 02:18] LABS: BASO % 0.7 % (0-2.0); EOS % 4.7 % (0-4.5); HEMATOCRIT 30.7 % (32.4-45.2); HEMOGLOBIN 10.7 GM/dL (10.7-15.3); LYMPH % 25.2 % (8-40); MCH 31.6 pg (25.7-33.7); MCHC 34.9 g/dl (32.0-36.0); MEAN CELL VOLUME 90.6 fl (80-96); MEAN PLT VOLUME 8.2 fl (7.5-11.1); MONO % 13.5 % (3.8-10.2); NEUT % 55.9 % (42.8-82.8); PLATELET COUNT 213 K/MM3 (134-434); RBC 3.39 M/mm3 (3.60-5.2); RDW 14.1 % (11.6-15.6); WHITE BLOOD COUNT 7.6 K/mm3 (4.0-10.0)
[2017-09-20 02:19] LABS: VENOUS PC02 43.9 mmHg (38-52)
[2017-09-20 02:20] LABS: VENOUS PH 7.24 (7.32-7.42)
[2017-09-20] MEDS ORDERED: LACTATED RINGERS SOLUTION 1,000 ML/1,000 ML INFUS.BAG IV SCH ×2 (02:30→08:45)
[2017-09-20 02:43] LABS: ALBUMIN 3.5 g/dl (3.4-5.0); ANION GAP 9 (8-16); BILIRUBIN,TOTAL 0.3 mg/dL (0.2-1.0); BLOOD UREA NITROGEN 31 mg/dL (7-18); CALCIUM 8.6 mg/dL (8.5-10.1); CHLORIDE 95 mmol/L (98-107); CO2 25 mmol/L (21-32); CREATININE 1.7 mg/dL (0.55-1.02); GLUCOSE,RANDOM 199 mg/dL (74-106); POTASSIUM 5.2 mmol/L (3.5-5.1); SGOT/AST 16 U/L (15-37); SGPT/ALT 22 U/L (12-78); SODIUM 129 mmol/L (136-145); TOT PROT 6.8 g/dl (6.4-8.2)
[2017-09-20 02:45] LABS: ALK PHOS 121 U/L (45-117)
[2017-09-20 02:50] LABS: URINE APPEARANCE CLEAR; URINE BILIRUBIN NEGATIVE (<2.0 mg/dL); URINE BLOOD NEGATIVE (NEGATIVE); URINE COLOR LTYELLOW; URINE GLUCOSE (UA) NEGATIVE (NEGATIVE); URINE KETONE NEGATIVE (NEGATIVE); URINE LEUK ESTERASE NEGATIVE (NEGATIVE); URINE NITRITE NEGATIVE (NEGATIVE); URINE PROTEIN NEGATIVE (NEGATIVE); URINE UROBILINOGEN NEGATIVE mg/dL (0.2-1.0)
[2017-09-20 02:52] LABS: INR 0.99 (0.82-1.09); PROTHROMBIN TIME (PATIENT) 11.2 SEC (9.7-13.0)
--- NOTE | 2017-09-20 03:26 | PDOC ---
History of Present Illness - General Chief Complaint: Blood Sugar Problem Stated Complaint: LOW BLOOD SUGAR Time Seen by Provider: 09/20/17 02:10 History Source: Patient, Family - History of Present Illness Initial Comments: 09/20/17 03:27 82 year-old female with a PMH significant for HTN, HLD, CAD s/p CABG x 3 (2004) , systolic heart failure, CVA, IDDM, diabetic polyneuropathy, and hypothyroidism presents with altered mental status for the past 3 days, with hallucinations as per family who she lives with. She also was noticed to have chills and looking increasingly distressed. Was found to have a blood sugar of 30 this morning, was given orange juice and sugar and retested at 300 when brought in by ems. Patient lives with daughter and son in law. Past History - Past Medical History Allergies/Adverse Reactions: Allergies Allergy/AdvReac Type Severity Reaction Status Date / Time No Known Drug Allergies Allergy Verified 08/20/17 07:07 Home Medications: Ambulatory Orders Aspirin [ASA -] 81 mg PO DAILY 08/20/17 Carvedilol [Coreg -] 12.5 mg PO BID 08/20/17 Levothyroxine [Synthroid -] 88 mcg PO DAILY 08/20/17 Omeprazole 20 mg PO DAILY 08/20/17 Ranolazine [Ranexa] 500 mg PO BID 08/20/17 Albuterol 0.083% Nebulizer Anjali [Ventolin 0.083% Nebulizer Soln -] 1 amp NEB Q4H PRN #120 amp 08/31/17 Gabapentin [Neurontin -] 300 mg PO TID #90 capsule 08/31/17 Nitroglycerin [Nitrostat] 0.4 mg SL ONCE PRN 09/20/17 Ramipril 2.5 mg PO DAILY 09/20/17 Repaglinide 1 mg PO DAILY 09/20/17 Anemia: No Asthma: No Cancer: No Cardiac Disorders: Yes CVA: Yes COPD: No CHF: Yes DVT: No Dementia: No Diabetes: Yes GI Disorders: Yes (Ulcers) Disorders: (ulcers) HTN: Yes Hypercholesterolemia: Yes Liver Disease: No Seizures: No Thyroid Disease: No - Surgical History Abdominal Surgery: No Appendectomy: No Cardiac Surgery: Yes (triple bipass) Cholecystectomy: No Lung Surgery: No Neurologic Surgery: No Orthopedic Surgery: Yes (RT ELBOW SX) - Immunization History Immunization Up to Date: No - Suicide/Smoking/Psychosocial Hx Smoking Status: No Smoking History: Never smoked Have you smoked in the past 12 months: No Number of Cigarettes Smoked Daily: 0 Hx Alcohol Use: No Drug/Substance Use Hx: No Substance Use Type: None Hx Substance Use Treatment: No Review of Systems - Review of Systems Able to Perform ROS?: No (ams) *Physical Exam - Vital Signs Last Vital Signs Temp Pulse Resp BP Pulse Ox 93 F L 58 L 14 118/97 100 09/20/17 01:38 09/20/17 01:38 09/20/17 01:38 09/20/17 01:38 09/20/17 01:38 - Physical Exam General Appearance: Yes: Moderate Distress, Obese Respiratory/Chest: positive: Decreased Breath Sounds. negative: Chest Tender Cardiovascular: positive: Regular Rhythm, S1, S2, Bradycardia Gastrointestinal/Abdominal: positive: Normal Bowel Sounds, Flat, Soft. negative : Tender Integumentary: positive: Pale, Cold, Clammy Neurologic: positive: Other (sleeping, not alert) ED Treatment Course - LABORATORY CBC & Chemistry Diagram: 09/20/17 02:01 09/20/17 02:01 - ADDITIONAL ORDERS Additional order review: Laboratory Results 09/20/17 09/20/17 09/20/17 02:45 02:01 02:01 PT with INR 11.20 INR 0.99 VBG pH POC VBG pCO2 POC VBG pO2 Mixed VBG HCO3 Sodium 129 L Potassium 5.2 H Chloride 95 L Carbon Dioxide 25 Anion Gap 9 BUN 31 H Creatinine 1.7 H Creat Clearance w eGFR 28.77 Random Glucose 199 H Lactic Acid Calcium 8.6 Total Bilirubin 0.3 D AST 16 ALT 22 Alkaline Phosphatase 121 H Creatine Kinase 112 Troponin I < 0.02 Total Protein 6.8 Albumin 3.5 Urine Color Ltyellow Urine Appearance Clear Urine pH 6.0 Ur Specific [place] 1.009 Urine Protein Negative Urine Glucose (UA) Negative Urine Ketones Negative Urine Blood Negative Urine Nitrite Negative Urine Bilirubin Negative Urine Urobilinogen Negative Ur Leukocyte Esterase Negative 09/20/17 09/20/17 02:01 02:00 PT with INR INR VBG pH 7.24 L* POC VBG pCO2 43.9 POC VBG pO2 111.0 H Mixed VBG HCO3 18.0 L Sodium Potassium Chloride Carbon Dioxide Anion Gap BUN Creatinine Creat Clearance w eGFR Random Glucose Lactic Acid 1.9 Calcium Total Bilirubin AST ALT Alkaline Phosphatase Creatine Kinase Troponin I Total Protein Albumin Urine Color Urine Appearance Urine pH Ur Specific [place] Urine Protein Urine Glucose (UA) Urine Ketones Urine Blood Urine Nitrite Urine Bilirubin Urine Urobilinogen Ur Leukocyte Esterase 09/20/17 02:01 RBC 3.39 L MCV 90.6 MCHC 34.9 RDW 14.1 MPV 8.2 Neutrophils % 55.9 Lymphocytes % 25.2 Monocytes % 13.5 H D Eosinophils % 4.7 H D Basophils % 0.7 - RADIOLOGY Radiology Studies Ordered: Category Date Time Status CHEST X-RAY PORTABLE* [RAD] Stat Radiology 09/20/17 02:26 Ordered Medical Decision Making - Medical Decision Making 09/20/17 03:38 Sepsis vs diabetic ketoacidosis vs CVA Patient is hypothermic and acidotic. Will draw labs, lactate imaging and start her on lactated ringer and admit to hospitalist. 09/20/17 03:39 *DC/Admit/Observation/Transfer Diagnosis at time of Disposition: Hypoglycemia - Discharge Dispostion Disposition: HOME Condition at time of disposition: Stable Admit: Yes - Referrals Referrals: Luz Kaur MD [Primary Care Provider] - - Patient Instructions - Post Discharge Activity
--- NOTE | 2017-09-20 03:44 | PDOC ---
Attending Attestation - Resident Resident Name: Dino Wright - ED Attending Attestation I have performed the following: I have examined & evaluated the patient, The case was reviewed & discussed with the resident, I agree w/resident's findings & plan - HPI HPI: 09/20/17 06:16 Pt comes with ams x 3 days. Pt also comes with low blood sugar. Daughter at the bedside. - Physicial Exam PE: 09/20/17 05:23 Agree with resident exam - Medical Decision Making 09/20/17 05:23 Patient Name: EVONNE TORRES THIS IS A PRELIMINARY REPORT FROM [facility] DATE OF SERVICE: 2017-09-20 04:35:00 IMAGES: [id number] EXAM: CT HEAD CT WITHOUT CONTRAST HISTORY: Altered mental status COMPARISON: None. FINDINGS: Brain parenchyma is normal in attenuation with no mass or hematoma. There is no midline shift. Figueroa and white matter differentiation is normal. Ventricles are normal. Sulci and extra-axial CSF spaces are normal. Intracranial vascular structures are normal in attenuation. There is no calvarial fracture. Paranasal sinuses are normally aerated. IMPRESSION: Normal head 09/20/17 05:23 Pt will be admitted to hospitalist for HYPONA+ as well as AMS. 09/20/17 05:44 Patient Name: EVONNE TORRES THIS IS A PRELIMINARY REPORT FROM [facility] DATE OF SERVICE: 2017-09-20 04:48:50 IMAGES: [id number] EXAM: CHEST CT WITHOUT CONTRAST HISTORY: Altered mental status COMPARISON: None. FINDINGS: Heart:: There is coronary artery calcification. Cardiac pacemaking leads are in stable positions Pericardium: not thickened Thoracic aorta and great vessels: Normal Superior vena cava and inferior vena cava: Normal Thoracic esophagus: Normal Mediastinal lymph nodes: There is a 1.4 x 1.7 cm precarinal lymph node Central airways: Normal Lungs: clear without focal consolidation Pleural spaces: Normal with no pneumothorax or pleural fluid Chest wall: Sternotomy Superior abdomen: Cholelithiasis Nephrolithiasis IMPRESSION: Mildly enlarged precarinal lymph node suggests recent inflammation. Cholelithiasis Nephrolithiasis 09/20/17 06:17 Pt has hyponatremia, as well as acidosis. She will be admitted to hospitalist for her AMS and further workup. Pt's PMD is Dr. Luz King <Karissa Guillen - Last Filed: 09/20/17 06:24> Heart Score/ECG Review - ECG Intrepretation Comment:: 09/20/17 03:[address] abnormality Abnormal ECG Vent. rate 59 bpm IN interval 204 ms QRS 102 ms <Sp Lim - Last Filed: 09/20/17 03:45>
[2017-09-20] MEDS ORDERED: ALBUTEROL SO4 0.083% IH SOL 2.5 MG/3 ML VIAL.NEB. NEB PRN (08:34)
[2017-09-20] MEDS ORDERED: NITROGLYCERIN SUBLINGUAL 1/150 0.4 MG TAB SL PRN (08:34)
--- NOTE | 2017-09-20 08:42 | HP ---
CHIEF COMPLAINT:ams HISTORY OF PRESENT ILLNESS: History obtained from ed notes. I called her daughter 3 times left a message to call back but didn't hear anything back. Patient speaks Turkish tried taking a help of [employer] african studies professor but didn't work as patient was giving a wage answers. Patient doesn't look AMS to me. Likely when patient came to ER she was AMS because of hypoglycemia and it resolved. Waiting for daughter to call back to take further history. But till then we will use history obtained by ED doctors. 82 year-old female with a PMH significant for HTN, HLD, CAD s/p CABG x 3 (2004) , systolic heart failure, CVA, IDDM, diabetic polyneuropathy, and hypothyroidism presents with altered mental status for the past 3 days, with hallucinations as per family who she lives with. She also was noticed to have chills and looking increasingly distressed. Was found to have a blood sugar of 30 this morning, was given orange juice and sugar and retested at 300 when brought in by ems. Patient lives with daughter and son in ar ER course was notable for: (1)cbc, cmp, cxr, RL, CT head. 2: RL Recent Travel: no PAST MEDICAL HISTORY:HTN, HLD, CAD, CHF, IDDM, peripharal neuropathy, Hypothyroidism, constipation. PAST SURGICAL HISTORY: [id number] Social History: Smoking: no Alcohol:no Drugs: no Family History: unobtainable Allergies No Known Drug Allergies Allergy (Verified 08/20/17 07:07) HOME MEDICATIONS: Home Medications Medication Instructions Recorded Aspirin [ASA -] 81 mg PO DAILY 08/20/17 Carvedilol [Coreg -] 12.5 mg PO BID 08/20/17 Levothyroxine [Synthroid -] 88 mcg PO DAILY 08/20/17 Omeprazole 20 mg PO DAILY 08/20/17 Ranolazine [Ranexa] 500 mg PO BID 08/20/17 Albuterol 0.083% Nebulizer Anjali 1 amp NEB Q4H PRN #120 amp 08/31/17 [Ventolin 0.083% Nebulizer Soln -] Gabapentin [Neurontin -] 300 mg PO TID #90 capsule 08/31/17 Nitroglycerin [Nitrostat] 0.4 mg SL ONCE PRN 09/20/17 Ramipril 2.5 mg PO DAILY 09/20/17 Repaglinide 1 mg PO DAILY 09/20/17 REVIEW OF SYSTEMS: unobtainable PHYSICAL EXAMINATION Vital Signs - 24 hr 09/20/17 09/20/17 01:38 07:13 Temperature 93 F L 97.0 F L Pulse Rate 58 L Pulse Rate [ 78 Right Radial] Respiratory 14 19 Rate Blood Pressure 118/97 Blood Pressure 105/72 [Right Arm] O2 Sat by Pulse 100 Oximetry (%) GENERAL: Bipin was cooperative in exam and was following commands Awake, alert, and oriented to time place person, on Nasal canula, BP 107/65, pr 65 HEAD: Normal with no signs of trauma. EYES: Pupils equal, round and reactive to light, extraocular movements intact, conjunctiva clear. EARS, NOSE, THROAT: Dry mucous membranes. Dry lips NECK: supple without lymphadenopathy, NO JVD, LUNGS: Breath sounds equal, clear to auscultation bilaterally. No wheezes, and mild crackels on right lower base HEART: Regular rate and rhythm, normal S1 and S2 ABDOMEN: Soft, nontender, distended, normoactive bowel sounds, no guarding, no suprapubic tenderness MUSCULOSKELETAL: moved all 4 limbs, No CVA tenderness. UPPER EXTREMITIES: 2+ pulses, warm, well-perfused. No cyanosis. No clubbing. No peripheral edema. LOWER EXTREMITIES: warm to touch, well-perfused. No calf tenderness. No peripheral edema. NEUROLOGICAL: Cranial nerves II-XII intact. Normal speech frisian speaking. PSYCHIATRIC: Cooperative. Good eye contact. SKIN: Warm, dry, Laboratory Results - last 24 hr 09/20/17 09/20/17 09/20/17 01:51 02:00 02:01 WBC 7.6 D RBC 3.39 L Hgb 10.7 D Hct 30.7 L MCV 90.6 MCH 31.6 MCHC 34.9 RDW 14.1 Plt Count 213 MPV 8.2 Neutrophils % 55.9 Lymphocytes % 25.2 Monocytes % 13.5 H D Eosinophils % 4.7 H D Basophils % 0.7 PT with INR INR VBG pH POC VBG pCO2 POC VBG pO2 Mixed VBG HCO3 Sodium Potassium Chloride Carbon Dioxide Anion Gap BUN Creatinine Creat Clearance w eGFR POC Glucometer [phone] Random Glucose Lactic Acid 1.9 Calcium Total Bilirubin AST ALT Alkaline Phosphatase Creatine Kinase Troponin I Total Protein Albumin Urine Color Urine Appearance Urine pH Ur Specific [place] Urine Protein Urine Glucose (UA) Urine Ketones Urine Blood Urine Nitrite Urine Bilirubin Urine Urobilinogen Ur Leukocyte Esterase 09/20/17 09/20/17 09/20/17 02:01 02:01 02:01 WBC RBC Hgb Hct MCV MCH MCHC RDW Plt Count MPV Neutrophils % Lymphocytes % Monocytes % Eosinophils % Basophils % PT with INR 11.20 INR 0.99 VBG pH 7.24 L* POC VBG pCO2 43.9 POC VBG pO2 111.0 H Mixed VBG HCO3 18.0 L Sodium 129 L Potassium 5.2 H Chloride 95 L Carbon Dioxide 25 Anion Gap 9 BUN 31 H Creatinine 1.7 H Creat Clearance w eGFR 28.77 POC Glucometer Random Glucose 199 H Lactic Acid Calcium 8.6 Total Bilirubin 0.3 D AST 16 ALT 22 Alkaline Phosphatase 121 H Creatine Kinase 112 Troponin I < 0.02 Total Protein 6.8 Albumin 3.5 Urine Color Urine Appearance Urine pH Ur Specific [place] Urine Protein Urine Glucose (UA) Urine Ketones Urine Blood Urine Nitrite Urine Bilirubin Urine Urobilinogen Ur Leukocyte Esterase 09/20/17 09/20/17 02:45 06:07 WBC RBC Hgb Hct MCV MCH MCHC RDW Plt Count MPV Neutrophils % Lymphocytes % Monocytes % Eosinophils % Basophils % PT with INR INR VBG pH POC VBG pCO2 POC VBG pO2 Mixed VBG HCO3 Sodium Potassium Chloride Carbon Dioxide Anion Gap BUN Creatinine Creat Clearance w eGFR POC Glucometer [phone] Random Glucose Lactic Acid Calcium Total Bilirubin AST ALT Alkaline Phosphatase Creatine Kinase Troponin I Total Protein Albumin Urine Color Ltyellow Urine Appearance Clear Urine pH 6.0 Ur Specific [place] 1.009 Urine Protein Negative Urine Glucose (UA) Negative Urine Ketones Negative Urine Blood Negative Urine Nitrite Negative Urine Bilirubin Negative Urine Urobilinogen Negative Ur Leukocyte Esterase Negative ASSESSMENT/PLAN: 82 year-old female with a PMH significant for HTN, HLD, CAD s/ p CABG x 3 (2004), systolic heart failure, CVA, IDDM, diabetic polyneuropathy, and hypothyroidism presents with altered mental status for the past 3 days. AMS: could be from hypoglycemia, hyponatremia, thyroid, less likely cva, less likley infection. Appears to be resolved. I don't know her base line will wait for family member to come in. Monitor blood glucose, Endo consult to adjust diet insulin and DM meds, nutrition consult to adjust diet and pattern of eating. Novalog insulin according to sliding scale. Diabetic diet. Patient looks like hypovlemic hyponatremia, Will give her IV fluid. Monitor sr sodium. Get urine and serum osmo, get urine electrolytes. Less likely CVA as patient is moving all four limbs, awake, oriented, cranial nerves grossly intact, CT head: no acute pathology. UA is clean wait for urine culture and blood culture. follow TSH level acidosis. could be due to haroldo Ph 7.24, pco2 43, hco3 18 likely metabolic no anion gap folly renal electrollyte to calculate urine anion gap. IV fluid. repeat abg in morning. Hyponatremia as above Hyperkalemia repeat sr K could be due to haroldo, lolly. hold lolly inhibitor for now. monitor HAROLDO cr 1.1---> 1.7 likely prerenal Get urine lytes, pro:cr ration, renal ultrasound IV fluid nephrology consult monitor creatnine. Hold lisinopril for now. HLD continue atorvastatin 40 mg daily h/o CAD/CABG / CHF( 2004) cardiac monitoring aspirin 81 daiy coreg 12.5 bid ranexa 500 bid notroglycerine prn. echo from last admission LV systoli funcion mild to moderate reduced not on lasix in home. daily weight. monitor intake and output IDDM Hba1c 08/31/17 10.5 Hold renaglinide Hold levemir for now, because of hypoglycemia. Novalog sliding scale diabetic diet. BGM achs endo consult for reevaluation of meds Pyrometer Operator consult for patient teaching for diabetic diet. hypothyroidism get TSH continue with levothyroxine. peripharal neuropathy continue with gabapentin constipation continue miralex and docusate sodium last bowel movement 3 days ago. last colonoscopy 4 year ao, as per Pt daughter it was normal ? COPD continue with neb albuterl continue with symbicort continue with spiriva. keep spo2 >88 fluid: NS 100ml/hr electrolyte: repeat in noon nutrition: diabetic diet. dvt pro: heparin sq gi pro: omeprazole called her daughter again at 9:36am 4th call, some other relative answered the phone and says she cant come to phone but she will come to hospital in about 2 hour. dispo; tele. Visit type - Emergency Visit Emergency Visit: Yes ED Registration Date: 09/20/17 Care time: The patient presented to the Emergency Department on the above date and was hospitalized for further evaluation of their emergent condition. - New Patient This patient is new to me today: Yes Date on this admission: 09/20/17 - Critical Care Critical Care patient: No
[2017-09-20] MEDS ORDERED: SODIUM CHLORIDE 1,000 ML IV SCH ×2 (08:45→15:07)
--- NOTE | 2017-09-20 09:09 | PN ---
Teaching Attending Note Name of Resident: Jose Domínguez ATTENDING PHYSICIAN STATEMENT I saw and evaluated the patient. I reviewed the resident's note and discussed the case with the resident. I agree with the resident's findings and plan as documented. SUBJECTIVE: This is an 82 year old woman with a history of HTN, hyperlipidemia, CAD, CABG, chronic systolic heart failure, CVA, type 2 DM, diabetic neuropathy, hypothyroidism who comes to the ED because of confusion x 3 days. Family reported she had been having hallucinations. Her blood sugar was 30 this morning. Currently her mental status appears to be at baseline. OBJECTIVE: Vital Signs Period Temp Pulse Resp BP Sys/Ibarra Pulse Ox Last 24 Hr 93 F-97.0 F 58-78 14-19 105-118/72-97 100 HEENT: Dry mucus membranes HEART: S1S2, RRR LUNGS: Clear ABDOMEN: Soft, non-tender, non-distended, normal BS EXTREMITIES: No edema Laboratory Tests 09/20/17 09/20/17 09/20/17 01:51 02:00 02:01 WBC 7.6 D RBC 3.39 L Hgb 10.7 D Hct 30.7 L MCV 90.6 MCH 31.6 MCHC 34.9 RDW 14.1 Plt Count 213 MPV 8.2 Neutrophils % 55.9 Lymphocytes % 25.2 Monocytes % 13.5 H D Eosinophils % 4.7 H D Basophils % 0.7 PT with INR INR VBG pH POC VBG pCO2 POC VBG pO2 Mixed VBG HCO3 Sodium Potassium Chloride Carbon Dioxide Anion Gap BUN Creatinine Creat Clearance w eGFR POC Glucometer [phone] Random Glucose Lactic Acid 1.9 Calcium Total Bilirubin AST ALT Alkaline Phosphatase Creatine Kinase Troponin I Total Protein Albumin Urine Color Urine Appearance Urine pH Ur Specific [place] Urine Protein Urine Glucose (UA) Urine Ketones Urine Blood Urine Nitrite Urine Bilirubin Urine Urobilinogen Ur Leukocyte Esterase 09/20/17 09/20/17 09/20/17 02:01 02:01 02:01 WBC RBC Hgb Hct MCV MCH MCHC RDW Plt Count MPV Neutrophils % Lymphocytes % Monocytes % Eosinophils % Basophils % PT with INR 11.20 INR 0.99 VBG pH 7.24 L* POC VBG pCO2 43.9 POC VBG pO2 111.0 H Mixed VBG HCO3 18.0 L Sodium 129 L Potassium 5.2 H Chloride 95 L Carbon Dioxide 25 Anion Gap 9 BUN 31 H Creatinine 1.7 H Creat Clearance w eGFR 28.77 POC Glucometer Random Glucose 199 H Lactic Acid Calcium 8.6 Total Bilirubin 0.3 D AST 16 ALT 22 Alkaline Phosphatase 121 H Creatine Kinase 112 Troponin I < 0.02 Total Protein 6.8 Albumin 3.5 Urine Color Urine Appearance Urine pH Ur Specific [place] Urine Protein Urine Glucose (UA) Urine Ketones Urine Blood Urine Nitrite Urine Bilirubin Urine Urobilinogen Ur Leukocyte Esterase 09/20/17 09/20/17 02:45 06:07 WBC RBC Hgb Hct MCV MCH MCHC RDW Plt Count MPV Neutrophils % Lymphocytes % Monocytes % Eosinophils % Basophils % PT with INR INR VBG pH POC VBG pCO2 POC VBG pO2 Mixed VBG HCO3 Sodium Potassium Chloride Carbon Dioxide Anion Gap BUN Creatinine Creat Clearance w eGFR POC Glucometer [phone] Random Glucose Lactic Acid Calcium Total Bilirubin AST ALT Alkaline Phosphatase Creatine Kinase Troponin I Total Protein Albumin Urine Color Ltyellow Urine Appearance Clear Urine pH 6.0 Ur Specific [place] 1.009 Urine Protein Negative Urine Glucose (UA) Negative Urine Ketones Negative Urine Blood Negative Urine Nitrite Negative Urine Bilirubin Negative Urine Urobilinogen Negative Ur Leukocyte Esterase Negative Home Medications Medication Instructions Recorded Aspirin [ASA -] 81 mg PO DAILY 08/20/17 Carvedilol [Coreg -] 12.5 mg PO BID 08/20/17 Levothyroxine [Synthroid -] 88 mcg PO DAILY 08/20/17 Omeprazole 20 mg PO DAILY 08/20/17 Ranolazine [Ranexa] 500 mg PO BID 08/20/17 Albuterol 0.083% Nebulizer Anjali 1 amp NEB Q4H PRN #120 amp 08/31/17 [Ventolin 0.083% Nebulizer Soln -] Gabapentin [Neurontin -] 300 mg PO TID #90 capsule 08/31/17 Nitroglycerin [Nitrostat] 0.4 mg SL ONCE PRN 09/20/17 Ramipril 2.5 mg PO DAILY 09/20/17 Repaglinide 1 mg PO DAILY 09/20/17 ASSESSMENT AND PLAN: This is an 82 year old woman with a history of HTN, hyperlipidemia, CAD, CABG, chronic systolic heart failure, CVA, type 2 DM, diabetic neuropathy, hypothyroidism who presented to the ED with confusion and hallucinations x 3 days. 1. Acute metabolic encephalopathy, likely secondary to hypoglycemia and hyponatremia - Improved - Glucose control - Correct electrolytes 2. Acute respiratory acidosis - Possibly secondary to hyperventilation 3. Hyponatremia, hyperkalemia - IV normal saline - Monitor electrolytes 4. Acute kidney injury secondary to dehydration - IV fluid - Hold Altace - Monitor BUN, creatinine 5. HTN - Continue Coreg - Hold Altace secondary to HAROLDO 6. Hyperlipidemia 7. CAD, history of CABG - Continue aspirin, Coreg, Ranexa 8. Chronic systolic heart failure - Stable 9. Type 2 DM with peripheral neuropathy - Hypoglycemia resolved - Hold Prandin - Fingersticks with Novolog sliding scale - Continue Neurontin for neuropathy 10. Hypothyroidism - Continue Synthroid 11. History of CVA - Continue aspirin
[2017-09-20 10:27] LABS: ANION GAP 3 (8-16); BLOOD UREA NITROGEN 25 mg/dL (7-18); CALCIUM 8.8 mg/dL (8.5-10.1); CHLORIDE 97 mmol/L (98-107); CO2 29 mmol/L (21-32); CREATININE 1.3 mg/dL (0.55-1.02); GLUCOSE,RANDOM 120 mg/dL (74-106); MAGNESIUM 2.2 mg/dL (1.8-2.4); PHOSPHOROUS 4.5 mg/dL (2.5-4.9); POTASSIUM 5.3 mmol/L (3.5-5.1); SODIUM 129 mmol/L (136-145)
[2017-09-20] MEDS: LEVOTHYROXINE NA 88 MCG TABLET (FP) PO SCH (10:58)
[2017-09-20] MEDS ORDERED: INSULIN SLIDING SCALE (NOVOLOG) 1 VIAL SQ SCH (11:00)
[2017-09-20] MEDS: PANTOPRAZOLE 20 MG TABLET (FP) PO SCH (11:57)
[2017-09-20] MEDS: ASPIRIN 81 MG CHEWABLE TABLETS PO SCH (11:57)
[2017-09-20] MEDS: CARVEDILOL 12.5 MG TABLET (FP) PO SCH ×2 (11:57→22:44)
[2017-09-20] MEDS: RANOLAZINE E.R. 500 MG TABLET (FP) PO SCH ×2 (11:58→22:44)
--- NOTE | 2017-09-20 12:12 | EKG ---
Test Reason : Blood Pressure : / mmHG Vent. Rate : 059 BPM Atrial Rate : 059 BPM P-R Int : 204 ms QRS Dur : 102 ms QT Int : 468 ms P-R-T Axes : 068 066 109 degrees QTc Int : 463 ms SINUS BRADYCARDIA NONSPECIFIC ST ABNORMALITY ABNORMAL ECG WHEN COMPARED WITH ECG OF 20-AUG-2017 09:25, NO SIGNIFICANT CHANGE WAS FOUND Confirmed by CRISTAL SAWYER MD ([id number]) on 09/20/2017 12:12:18 PM Referred By: Confirmed By:CRISTAL SAWYER MD
--- NOTE | 2017-09-20 12:43 | CONSULT ---
Consult Consult Specialty:: Endocrinology Referred by:: Dr Amos Reason for Consultation:: Hypoglycemia - History of Present Illness Chief Complaint: AMS History of Present Illness: This is an 82 year-old female with h/o HTN, HLD, CAD s/p CABG x 3 (2004), systolic heart failure, CVA, DM for about 40 years and on Insulin for about 20 years, and hypothyroidism who presented to ED with altered mental status for the past 3 days, with hallucinations as per family who she lives with. She also was noticed to have chills and looking increasingly distressed. Was found to have a blood sugar of 30 this morning, was given orange juice and sugar and retested at 300 when brought in by ems. Pt takes Npvolog 70/30 20 in the morning and 30 to 36 before dinner. FS usually 100s in the morning and 200 to 300 in the evening. Not sure how much Insulin she took last night. 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) Endocrine: Yes: Diabetes Mellitus, Hypothyroidism - Alcohol/Substance Use Hx Alcohol Use: No - Smoking History Smoking history: Never smoked Have you smoked in the past 12 months: No Aproximately how many cigarettes per day: 0 Home Medications - Allergies Allergies/Adverse Reactions: Allergies Allergy/AdvReac Type Severity Reaction Status Date / Time No Known Drug Allergies Allergy Verified 08/20/17 07:07 - Home Medications Home Medications: Ambulatory Orders Aspirin [ASA -] 81 mg PO DAILY 08/20/17 Carvedilol [Coreg -] 12.5 mg PO BID 08/20/17 Levothyroxine [Synthroid -] 88 mcg PO DAILY 08/20/17 Omeprazole 20 mg PO DAILY 08/20/17 Ranolazine [Ranexa] 500 mg PO BID 08/20/17 Albuterol 0.083% Nebulizer Anjali [Ventolin 0.083% Nebulizer Soln -] 1 amp NEB Q4H PRN #120 amp 08/31/17 Gabapentin [Neurontin -] 300 mg PO TID #90 capsule 08/31/17 Nitroglycerin [Nitrostat] 0.4 mg SL ONCE PRN 09/20/17 Ramipril 2.5 mg PO DAILY 09/20/17 Repaglinide 1 mg PO DAILY 09/20/17 Review of Systems - Review of Systems Constitutional: reports: No Symptoms Eyes: reports: No Symptoms HENT: reports: No Symptoms Neck: reports: No Symptoms Cardiovascular: reports: No Symptoms Gastrointestinal: reports: No Symptoms Genitourinary: reports: No Symptoms Breasts: reports: No Symptoms Reported Musculoskeletal: reports: No Symptoms Neurological: reports: No Symptoms Endocrine: reports: No Symptoms Physical Exam Vital Signs: Vital Signs Temperature 97.0 F L 09/20/17 07:13 Pulse Rate 78 09/20/17 07:13 Respiratory Rate 19 09/20/17 07:13 Blood Pressure 105/72 09/20/17 07:13 O2 Sat by Pulse Oximetry (%) 100 09/20/17 01:38 Constitutional: Yes: No Distress, Calm Eyes: Yes: Conjunctiva Clear, EOM Intact HENT: Yes: Atraumatic, Normocephalic Neck: Yes: Supple, Trachea Midline Cardiovascular: Yes: Regular Rate and Rhythm Respiratory: Yes: Regular, CTA Bilaterally Gastrointestinal: Yes: Normal Bowel Sounds, Soft Renal/: Yes: WNL Musculoskeletal: Yes: WNL Extremities: Yes: WNL Edema: No Neurological: Yes: Alert Labs: CBC, BMP 09/20/17 02:01 09/20/17 09:40 Imaging - Results Cat Scan: Report Reviewed Assessment/Plan AP: AMS T2DM uncontrolled Hypothyroidism CHF CAD During last admission pt was on Levemir 32 unts daily with Novolog SS coverage. She was on Prednisone 30mg daily on the day of discharge. Currently was not taking Prednisone at home. BGM QACHS and 3 a.m NOvolog SS coverage for now Will add Levemir 10 units at HS if blood sugar rises over 200 in the afternoon Continue LT4 88 Will f/u
[2017-09-20] MEDS: HEPARIN NA (PORCINE) 5,000 UNITS/ML 1ML VIAL SQ SCH ×2 (14:20→22:44)
[2017-09-20] MEDS: GABAPENTIN 300 MG CAPSULE (FP) PO SCH ×2 (14:20→22:44)
--- NOTE | 2017-09-20 14:23 | CONSULT ---
Consult Consult Specialty:: Nephrology Reason for Consultation:: HAROLDO - History of Present Illness Chief Complaint: altered mental status History of Present Illness: Pt is an 82 year old female with pmhx of HTN, HLD, CAD, HAROLDO, COPD and DM who presents with altered mental status. She was recently discharged from the hospital. She has had poor intake for the last few days. She had a blood sugar of 200 last night and after taking 36 units of levemir the blood sugar dropped to 30. She was given orange juice and brought to ER. I was called to evaluate her as she has elevated creatinine. She denies dysuria or hematuria. She denies shortness of breath. 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) Endocrine: Yes: Diabetes Mellitus, Hypothyroidism - Alcohol/Substance Use Hx Alcohol Use: No - Smoking History Smoking history: Never smoked Have you smoked in the past 12 months: No Aproximately how many cigarettes per day: 0 Home Medications - Allergies Allergies/Adverse Reactions: Allergies Allergy/AdvReac Type Severity Reaction Status Date / Time No Known Drug Allergies Allergy Verified 08/20/17 07:07 - Home Medications Home Medications: Ambulatory Orders Aspirin [ASA -] 81 mg PO DAILY 08/20/17 Carvedilol [Coreg -] 12.5 mg PO BID 08/20/17 Levothyroxine [Synthroid -] 88 mcg PO DAILY 08/20/17 Omeprazole 20 mg PO DAILY 08/20/17 Ranolazine [Ranexa] 500 mg PO BID 08/20/17 Albuterol 0.083% Nebulizer Anjali [Ventolin 0.083% Nebulizer Soln -] 1 amp NEB Q4H PRN #120 amp 08/31/17 Gabapentin [Neurontin -] 300 mg PO TID #90 capsule 08/31/17 Nitroglycerin [Nitrostat] 0.4 mg SL ONCE PRN 09/20/17 Ramipril 2.5 mg PO DAILY 09/20/17 Repaglinide 1 mg PO DAILY 09/20/17 Family Disease History - Family Disease History Family History: Denies Review of Systems - Review of Systems Constitutional: reports: Malaise Eyes: reports: No Symptoms HENT: reports: No Symptoms Neck: reports: No Symptoms Cardiovascular: reports: No Symptoms Respiratory: reports: No Symptoms Gastrointestinal: reports: No Symptoms Genitourinary: reports: No Symptoms Musculoskeletal: reports: No Symptoms Integumentary: reports: No Symptoms Neurological: reports: Change in LOC Endocrine: reports: Excessive Sweating, Other (hypoglycemia) Psychiatric: reports: Hallucinations Physical Exam Vital Signs: Vital Signs Temperature 97.0 F L 09/20/17 07:13 Pulse Rate 78 09/20/17 07:13 Respiratory Rate 19 09/20/17 07:13 Blood Pressure 105/72 09/20/17 07:13 O2 Sat by Pulse Oximetry (%) 100 09/20/17 01:38 Constitutional: Yes: Calm Eyes: Yes: Conjunctiva Clear HENT: Yes: Atraumatic Neck: Yes: Supple Cardiovascular: Yes: S1, S2 Respiratory: Yes: CTA Bilaterally Gastrointestinal: Yes: Soft, Abdomen, Obese Renal/: Yes: WNL Musculoskeletal: Yes: WNL Edema: No Neurological: Yes: Oriented Psychiatric: Yes: Oriented Labs: CBC, BMP 09/20/17 02:01 09/20/17 09:40 Imaging - Results Chest X-ray: Report Reviewed Assessment/Plan Current Medications Generic Name Dose Route Start Last Admin Trade Name Freq PRN Reason Stop Dose Admin Albuterol Sulfate 1 amp 09/20/17 08:34 Ventolin 0.083% Nebulizer Soln - NEB Q4H PRN SHORT OF BREATH/WHEEZING Aspirin 81 mg 09/20/17 10:00 09/20/17 11:57 Asa - PO 81 mg DAILY [facility] Administration Atorvastatin Calcium 40 mg 09/20/17 22:00 Lipitor - PO HS [facility] Budesonide/Formoterol Fumarate 1 puff 09/20/17 10:00 Symbicort 160/4.5mcg - IH BID [facility] Carvedilol 12.5 mg 09/20/17 10:00 09/20/17 11:57 Coreg - PO 12.5 mg BID [facility] Administration Docusate Sodium 300 mg 09/20/17 22:00 Colace - PO HS [facility]OMA Gabapentin 300 mg 09/20/17 14:00 Neurontin - PO TID [facility] Heparin Sodium (Porcine) 5,000 unit 09/20/17 14:00 Heparin - SQ TID [facility] Sodium Chloride 1,000 mls @ 100 mls/hr 09/20/17 08:45 09/20/17 11:57 Normal Saline - IV 100 mls/hr ASDIR [facility] Administration Insulin Aspart 1 vial 09/20/17 22:00 Novolog Vial Sliding Scale - SQ HS [facility] Protocol Insulin Aspart 1 vial 09/20/17 16:30 Novolog Vial Sliding Scale - SQ TIDAC [facility] Protocol Levothyroxine Sodium 88 mcg 09/20/17 10:00 09/20/17 10:58 Synthroid - PO 88 mcg DAILY@0700 [facility] Administration Nitroglycerin 0.4 mg 09/20/17 08:34 Nitrostat - SL ONCE PRN chest pain Pantoprazole Sodium 20 mg 09/20/17 10:00 09/20/17 11:57 Protonix - PO 20 mg DAILY [facility] Administration Polyethylene Glycol 17 gm 09/20/17 22:00 Miralax (For Daily Use) - PO BID [facility] Ranolazine 500 mg 09/20/17 10:00 09/20/17 11:58 Ranexa - PO 500 mg BID [facility] Administration Tiotropium [place] 1 puff 09/20/17 10:00 Spiriva - IH DAILY [facility] Impression 1. HAROLDO 2. hyponatremia 3. DM uncontrolled 4. hypothyroidism 5. CHF 6. COPD 7. hyperkalemia 8. change in mental status Plan - d/c LR - decrease rate of saline - repeat labs and monitor renal function - low potassium diet - monitor blood sugar - discussed with medical team - renal ultrasound reviewed, neg hydro Dr Berman
[2017-09-20] MEDS: INSULIN SLIDING SCALE (NOVOLOG) 1 VIAL SQ SCH ×2 (18:21→22:59)
[2017-09-20] MEDS: BUDESONIDE/FORMETEROL FUMARATE 160/4.5 mcg INHALER IH SCH ×2 (18:47→22:46)
[2017-09-20] MEDS: TIOTROPIUM BROMIDE 18 MCG CAPSULES IH SCH (18:47)
[2017-09-20 21:10] LABS: ANION GAP 0 (8-16); BLOOD UREA NITROGEN 22 mg/dL (7-18); CHLORIDE 99 mmol/L (98-107); CO2 30 mmol/L (21-32); CREATININE 1.3 mg/dL (0.55-1.02); GLUCOSE,RANDOM 181 mg/dL (74-106); POTASSIUM 5.3 mmol/L (3.5-5.1); SODIUM 129 mmol/L (136-145)
[2017-09-20] MEDS ORDERED: INSULIN (NOVOLOG) ASPART 100 UNITS/ML 10ML VIAL ONE (21:23)
[2017-09-20] MEDS ORDERED: PT OWN MED DRAWER 7, Y5N ONE (21:25)
[2017-09-20] MEDS: DOCUSATE SODIUM 100 MG CAPSULE (FP) PO SCH (22:43)
[2017-09-20] MEDS: ATORVASTATIN CA 40 MG TABLET (FP) PO SCH (22:44)
--- NOTE | 2017-09-20 23:00 | PN ---
Progress Note (short form) - Note Progress Note: Patient's K level 5.3 noted. With no change since AM labs. Follow up AM BMP.
[2017-09-20] MEDS: POLYETHYLENE GLYCOL 3350 119 GM BTL PO SCH (23:54)
[2017-09-21] MEDS ORDERED: INSULIN (NOVOLOG) ASPART 100 UNITS/ML 10ML VIAL ONE ×3 (00:35→16:44)
[2017-09-21] MEDS ORDERED: PT OWN MED DRAWER 7, Y5N ONE ×3 (00:36→07:58)
[2017-09-21 01:32] LABS: URINE CREATININE 40.1 mg/dL (20-320)
[2017-09-21] MEDS: HEPARIN NA (PORCINE) 5,000 UNITS/ML 1ML VIAL SQ SCH ×3 (06:00→21:57)
[2017-09-21] MEDS: INSULIN SLIDING SCALE (NOVOLOG) 1 VIAL SQ SCH ×4 (06:00→22:08)
[2017-09-21] MEDS: LEVOTHYROXINE NA 88 MCG TABLET (FP) PO SCH (06:00)
[2017-09-21] MEDS: GABAPENTIN 300 MG CAPSULE (FP) PO SCH ×3 (06:00→21:57)
[2017-09-21 07:28] LABS: BASO % 0.7 % (0-2.0); EOS % 4.9 % (0-4.5); HEMATOCRIT 28.7 % (32.4-45.2); HEMOGLOBIN 9.8 GM/dL (10.7-15.3); LYMPH % 39.6 % (8-40); MCH 30.7 pg (25.7-33.7); MEAN CELL VOLUME 90.4 fl (80-96); MEAN PLT VOLUME 8.5 fl (7.5-11.1); NEUT % 44.8 % (42.8-82.8); PLATELET COUNT 232 K/MM3 (134-434); RBC 3.18 M/mm3 (3.60-5.2); RDW 14.3 % (11.6-15.6); WHITE BLOOD COUNT 6.4 K/mm3 (4.0-10.0)
[2017-09-21 07:30] LABS: ANION GAP 5 (8-16); BILIRUBIN,TOTAL 0.4 mg/dL (0.2-1.0); BLOOD UREA NITROGEN 18 mg/dL (7-18); CALCIUM 7.9 mg/dL (8.5-10.1); CHLORIDE 98 mmol/L (98-107); CO2 26 mmol/L (21-32); CREATININE 1.1 mg/dL (0.55-1.02); GLUCOSE,RANDOM 157 mg/dL (74-106); MAGNESIUM 1.9 mg/dL (1.8-2.4); PHOSPHOROUS 3.4 mg/dL (2.5-4.9); POTASSIUM 5.1 mmol/L (3.5-5.1); SGOT/AST 13 U/L (15-37); SGPT/ALT 20 U/L (12-78); SODIUM 129 mmol/L (136-145)
[2017-09-21 07:33] LABS: ALK PHOS 100 U/L (45-117)
--- NOTE | 2017-09-21 09:06 | PN ---
Physical Exam: SUBJECTIVE: Patient seen and examined - No overnight events; VSS, afebrile; Pt only complaining of shooting pain in legs BL; pt with pelayo OBJECTIVE: Vital Signs Intake & Output 09/18/17 09/19/17 09/20/17 09/21/17 23:59 23:59 23:59 23:59 Intake Total 860 700 Output Total 500 650 Balance 360 50 Weight 79.379 kg 77.474 kg Period Temp Pulse Resp BP Sys/Ibarra Pulse Ox Last 24 Hr 97.1 F-98.8 F 58-68 18-20 104-131/52-67 95-96 GENERAL: Elderly woman, NAD HEAD: NCAT EYES: PERRL, extraocular movements intact, sclera anicteric, conjunctiva clear. No ptosis. ENT: Ears normal, nares patent, oropharynx clear without exudates, moist mucous membranes. NECK: Trachea midline, full range of motion, supple. LUNGS: Breath sounds equal, clear to auscultation bilaterally, no wheezes, no crackles, no accessory muscle use. HEART: Regular rate and rhythm, S1, S2 without murmur, rub or gallop. ABDOMEN: Globular. TTP to palpation in LLQ. Soft, nondistended, normoactive bowel sounds, no guarding, no rebound, no hepatosplenomegaly, no masses. EXTREMITIES: 2+ pulses, warm, well-perfused, no edema. NEUROLOGICAL: Cranial nerves II through XII grossly intact. Normal speech, gait not observed. PSYCH: Normal mood, normal affect. Interactive, pleasant SKIN: Warm, dry, normal turgor, no rashes or lesions noted Laboratory Results - last 24 hr CBC, BMP 09/21/17 06:35 09/21/17 06:35 09/20/17 09/20/17 09/20/17 09:40 11:51 18:16 WBC RBC Hgb Hct MCV MCH MCHC RDW Plt Count MPV Neutrophils % Lymphocytes % Monocytes % Eosinophils % Basophils % Sodium 129 L Potassium 5.3 H Chloride 97 L Carbon Dioxide 29 Anion Gap 3 L BUN 25 H Creatinine 1.3 H Creat Clearance w eGFR POC Glucometer [phone] Random Glucose 120 H Calcium 8.8 Phosphorus 4.5 Magnesium 2.2 Total Bilirubin AST ALT Alkaline Phosphatase Creatine Kinase Troponin I Total Protein Albumin TSH 1.46 Urine Osmolality U Random Total Protein Ur Random Sodium Ur Random Potassium Ur Random Chloride Urine Creatinine 09/20/17 09/20/17 09/21/17 20:00 22:50 00:01 WBC RBC Hgb Hct MCV MCH MCHC RDW Plt Count MPV Neutrophils % Lymphocytes % Monocytes % Eosinophils % Basophils % Sodium 129 L Potassium 5.3 H Chloride 99 Carbon Dioxide 30 Anion Gap 0 L BUN 22 H Creatinine 1.3 H Creat Clearance w eGFR POC Glucometer 174 Random Glucose 181 H Calcium 8.0 L Phosphorus Magnesium Total Bilirubin AST ALT Alkaline Phosphatase Creatine Kinase Troponin I Total Protein Albumin TSH Urine Osmolality U Random Total Protein 11 Ur Random Sodium Ur Random Potassium Ur Random Chloride Urine Creatinine 40.1 09/21/17 09/21/17 09/21/17 00:01 00:04 05:40 WBC RBC Hgb Hct MCV MCH MCHC RDW Plt Count MPV Neutrophils % Lymphocytes % Monocytes % Eosinophils % Basophils % Sodium Potassium Chloride Carbon Dioxide Anion Gap BUN Creatinine Creat Clearance w eGFR POC Glucometer 188 Random Glucose Calcium Phosphorus Magnesium Total Bilirubin AST ALT Alkaline Phosphatase Creatine Kinase Troponin I Total Protein Albumin TSH Urine Osmolality 322 U Random Total Protein Ur Random Sodium 52 Ur Random Potassium 35.2 Ur Random Chloride 64 Urine Creatinine 09/21/17 09/21/17 06:35 06:35 WBC 6.4 RBC 3.18 L Hgb 9.8 L Hct 28.7 L MCV 90.4 MCH 30.7 MCHC 34.0 RDW 14.3 Plt Count 232 MPV 8.5 Neutrophils % 44.8 Lymphocytes % 39.6 D Monocytes % 10.0 Eosinophils % 4.9 H Basophils % 0.7 Sodium 129 L Potassium 5.1 Chloride 98 Carbon Dioxide 26 Anion Gap 5 L BUN 18 Creatinine 1.1 H Creat Clearance w eGFR 47.55 POC Glucometer Random Glucose 157 H Calcium 7.9 L Phosphorus 3.4 Magnesium 1.9 Total Bilirubin 0.4 D AST 13 L ALT 20 Alkaline Phosphatase 100 Creatine Kinase 80 Troponin I < 0.02 Total Protein 6.0 L Albumin 3.0 L TSH Urine Osmolality U Random Total Protein Ur Random Sodium Ur Random Potassium Ur Random Chloride Urine Creatinine Active Medications Generic Name Dose Route Start Last Admin Trade Name Freq PRN Reason Stop Dose Admin Albuterol Sulfate 1 amp 09/20/17 08:34 09/21/17 06:15 Ventolin 0.083% Nebulizer Soln - NEB 1 amp Q4H PRN Administration SHORT OF BREATH/WHEEZING Aspirin 81 mg 09/20/17 10:00 09/20/17 11:57 Asa - PO 81 mg DAILY [facility] Administration Atorvastatin Calcium 40 mg 09/20/17 22:00 09/20/17 22:44 Lipitor - PO 40 mg HS [facility] Administration Budesonide/Formoterol Fumarate 1 puff 09/20/17 10:00 09/20/17 22:46 Symbicort 160/4.5mcg - IH 1 puff BID [facility] Administration Carvedilol 12.5 mg 09/20/17 10:00 09/20/17 22:44 Coreg - PO 12.5 mg BID [facility] Administration Docusate Sodium 300 mg 09/20/17 22:00 09/20/17 22:43 Colace - PO 300 mg HS [facility] Administration Gabapentin 300 mg 09/20/17 14:00 09/21/17 06:00 Neurontin - PO 300 mg TID [facility] Administration Heparin Sodium (Porcine) 5,000 unit 09/20/17 14:00 09/21/17 06:00 Heparin - SQ 5,000 unit TID [facility] Administration Sodium Chloride 1,000 mls @ 50 mls/hr 09/20/17 15:07 09/20/17 15:20 Normal Saline - IV 50 mls/hr ASDIR [facility] Administration Insulin Aspart 1 vial 09/20/17 22:00 09/20/17 22:59 Novolog Vial Sliding Scale - SQ Not Given HS [facility] Protocol Insulin Aspart 1 vial 09/20/17 16:30 09/21/17 06:00 Novolog Vial Sliding Scale - SQ 2 units TIDAC [facility] Administration Protocol Levothyroxine Sodium 88 mcg 09/20/17 10:00 09/21/17 06:00 Synthroid - PO 88 mcg DAILY@0700 [facility] Administration Nitroglycerin 0.4 mg 09/20/17 08:34 Nitrostat - SL ONCE PRN chest pain Pantoprazole Sodium 20 mg 09/20/17 10:00 09/20/17 11:57 Protonix - PO 20 mg DAILY [facility] Administration Polyethylene Glycol 17 gm 09/20/17 22:00 09/20/17 23:54 Miralax (For Daily Use) - PO 17 grams BID [facility] Administration Ranolazine 500 mg 09/20/17 10:00 09/20/17 22:44 Ranexa - PO 500 mg BID [facility] Administration Tiotropium [place] 1 puff 09/20/17 10:00 09/20/17 18:47 Spiriva - IH Not Given DAILY [facility] Microbiology 09/20/17 02:01 Blood - Peripheral Venous Blood Culture - Preliminary NO GROWTH OBTAINED AFTER 24 HOURS, INCUBATION TO CONTINUE FOR 4 DAYS. 09/20/17 02:07 Blood - Peripheral Venous Blood Culture - Preliminary NO GROWTH OBTAINED AFTER 24 HOURS, INCUBATION TO CONTINUE FOR 4 DAYS. CXR 09/20 - Since 08/30/2017 at 1331 hours, again noted is a sclerotic knob, sternal sutures and clips, degenerative spine and shoulder changes, left shoulder calcifications and there is slight increase in central lung markings compatible some mild congestion. Correlation recommended. Head CT 09/20 - Impression. No evidence of acute intracranial hemorrhage, edema, midline shift, mass effect, or skull fracture. No CT evidence of acute territorial ischemic changes. MRI may be considered, if acute stroke is suspected due to the increased sensitivity. Chest CT 09/20 - Thickening of the interstitial septa, bilaterally rule out mild pulmonary venous congestion. Status post CABG. Borderline enlarged precarinal lymph node. Tiny gallstones without gross thickening of the included gallbladder wall. 5 mm nonobstructing left renal stone with a partially exophytic 8 mm nodule for which correlation with ultrasound is needed for further characterization of its consistency, cystic versus solid Renal U/S 09/20 - IMPRESSION: Morphologically normal kidneys with no evidence of hydronephrosis or acute pathology. ASSESSMENT/PLAN: 82 year-old female with a PMH significant for HTN, HLD, CAD s/p CABG x 3 (2004) , systolic heart failure, CVA, IDDM, diabetic polyneuropathy, and hypothyroidism presents with altered mental status for the past 3 days. Likely d /c tomorrow. #AMS - likely secondary to hypoglycemia, hyponatremia; unlikely to be CVA - back at baseline per family - Endocrinology consulted, recs appreciated - Still with hypoNa 129. Decrease free water per renal - UA clean - TSH normal - Head CT negative #Hyponatremia 129; likely euvolemic; possibly secondary to hypothyroidism, alysa's, RTA or SIADH - urine lytes notable for elevated Na, urine osm; Serum osms decreased at 275; - consider renin/aldosterone ratio - decrease free water flushes - renal consulted - trend Na #Hyperkalemia - improving, 5.1 today - continue holding ACEi for now - trend #HAROLDO - cr 1.3 -> 1.1 today, improving; Renal U/S normal - likely prerenal - decrease IVFs - nephrology consult - trend Cr #Metabolic acidosis - resolved - IVFs #HLD - lipitor 40mg daily #h/o CAD/CABG/CHF - cardiac monitoring - ASA 81mg daily -coreg 12.5 bid -ranexa 500 bid -c/w nitroglycerin SL - daily weights - strict Is and Os #IDDM - Hba1c 10.5 - hold home meds -diabetic diet - ISS -BGMs - endo consult - dietary consult #hypothyroidism - TSH normal -c/w synthroid #peripheral neuropathy - c/w gabapentin #constipation - colonoscopy 4 years ago -miralax, senna #?COPD -ventolin q4h prn -symbicort -spiriva. -keep spo2 >88 fluid: NS 40cc/hr electrolyte - daily nutrition: diabetic diet. dvt pro; HSQ gi pro: PPI Plan discussed with Dr. Kirstin Hall, PGY1 Visit type - Emergency Visit Emergency Visit: Yes ED Registration Date: 09/20/17 Care time: The patient presented to the Emergency Department on the above date and was hospitalized for further evaluation of their emergent condition. - New Patient This patient is new to me today: Yes Date on this admission: 09/21/17 - Critical Care Critical Care patient: No - Discharge Referral Referred to [facility] Med P.C.: No
[2017-09-21] MEDS: BUDESONIDE/FORMETEROL FUMARATE 160/4.5 mcg INHALER IH SCH ×2 (10:02→21:58)
[2017-09-21] MEDS: TIOTROPIUM BROMIDE 18 MCG CAPSULES IH SCH (10:02)
[2017-09-21] MEDS: POLYETHYLENE GLYCOL 3350 119 GM BTL PO SCH ×2 (10:03→22:11)
[2017-09-21] MEDS: PANTOPRAZOLE 20 MG TABLET (FP) PO SCH (10:03)
[2017-09-21] MEDS: ASPIRIN 81 MG CHEWABLE TABLETS PO SCH (10:03)
[2017-09-21] MEDS: CARVEDILOL 12.5 MG TABLET (FP) PO SCH ×2 (10:03→21:58)
[2017-09-21] MEDS: RANOLAZINE E.R. 500 MG TABLET (FP) PO SCH ×2 (10:03→21:57)
--- NOTE | 2017-09-21 12:11 | PN ---
Progress Note (short form) - Note Progress Note: Denies any complaints Vital Signs Period Temp Pulse Resp BP Sys/Ibarra Pulse Ox Last 24 Hr 97.1 F-98.8 F 58-65 18-20 104-131/52-67 95-96 PE: Awake, alert Neck: Supple HEENT: EOMI Lungs: CTA Abd: Benign CVs: s1S2 EXt: No edema CMP Sodium 129 mmol/L (136-145) L 09/21/17 06:35 Potassium 5.1 mmol/L (3.5-5.1) 09/21/17 06:35 Chloride 98 mmol/L (98-107) 09/21/17 06:35 Carbon Dioxide 26 mmol/L (21-32) 09/21/17 06:35 Anion Gap 5 (8-16) L 09/21/17 06:35 BUN 18 mg/dL (7-18) 09/21/17 06:35 Creatinine 1.1 mg/dL (0.55-1.02) H 09/21/17 06:35 Creat Clearance w eGFR 47.55 (>60) 09/21/17 06:35 POC Glucometer 188 UNITS (80-120) 09/21/17 05:40 Random Glucose 157 mg/dL (74-106) H 09/21/17 06:35 Lactic Acid 1.9 mmol/L (0.0-2.0) 09/20/17 02:00 Calcium 7.9 mg/dL (8.5-10.1) L 09/21/17 06:35 Phosphorus 3.4 mg/dL (2.5-4.9) 09/21/17 06:35 Magnesium 1.9 mg/dL (1.8-2.4) 09/21/17 06:35 Total Bilirubin 0.4 mg/dL (0.2-1.0) D 09/21/17 06:35 AST 13 U/L (15-37) L 09/21/17 06:35 ALT 20 U/L (12-78) 09/21/17 06:35 Alkaline Phosphatase 100 U/L (45-117) 09/21/17 06:35 Creatine Kinase 80 IU/L (26-192) 09/21/17 06:35 Troponin I < 0.02 ng/ml (0.00-0.05) 09/21/17 06:35 Total Protein 6.0 g/dl (6.4-8.2) L 09/21/17 06:35 Albumin 3.0 g/dl (3.4-5.0) L 09/21/17 06:35 TSH 1.46 uIU/ml (0.358-3.74) 09/20/17 09:40 Current Medications Generic Name Dose Route Start Last Admin Trade Name Freq PRN Reason Stop Dose Admin Albuterol Sulfate 1 amp 09/20/17 08:34 09/21/17 06:15 Ventolin 0.083% Nebulizer Soln - NEB 1 amp Q4H PRN Administration SHORT OF BREATH/WHEEZING Aspirin 81 mg 09/20/17 10:00 09/21/17 10:03 Asa - PO 81 mg DAILY [facility] Administration Atorvastatin Calcium 40 mg 09/20/17 22:00 09/20/17 22:44 Lipitor - PO 40 mg HS [facility] Administration Budesonide/Formoterol Fumarate 1 puff 09/20/17 10:00 09/21/17 10:02 Symbicort 160/4.5mcg - IH 1 puff BID [facility] Administration Carvedilol 12.5 mg 09/20/17 10:00 09/21/17 10:03 Coreg - PO 12.5 mg BID [facility] Administration Docusate Sodium 300 mg 09/20/17 22:00 09/20/17 22:43 Colace - PO 300 mg HS [facility] Administration Gabapentin 300 mg 09/20/17 14:00 09/21/17 06:00 Neurontin - PO 300 mg TID [facility] Administration Heparin Sodium (Porcine) 5,000 unit 09/20/17 14:00 09/21/17 06:00 Heparin - SQ 5,000 unit TID [facility] Administration Sodium Chloride 1,000 mls @ 50 mls/hr 09/20/17 15:07 09/20/17 15:20 Normal Saline - IV 50 mls/hr ASDIR [facility] Administration Insulin Aspart 1 vial 09/20/17 22:00 09/20/17 22:59 Novolog Vial Sliding Scale - SQ Not Given HS [facility] Protocol Insulin Aspart 1 vial 09/20/17 16:30 09/21/17 06:00 Novolog Vial Sliding Scale - SQ 2 units TIDAC [facility] Administration Protocol Levothyroxine Sodium 88 mcg 09/20/17 10:00 09/21/17 06:00 Synthroid - PO 88 mcg DAILY@0700 [facility] Administration Nitroglycerin 0.4 mg 09/20/17 08:34 Nitrostat - SL ONCE PRN chest pain Pantoprazole Sodium 20 mg 09/20/17 10:00 09/21/17 10:03 Protonix - PO 20 mg DAILY [facility] Administration Polyethylene Glycol 17 gm 09/20/17 22:00 09/21/17 10:03 Miralax (For Daily Use) - PO 17 grams BID [facility] Administration Ranolazine 500 mg 09/20/17 10:00 09/21/17 10:03 Ranexa - PO 500 mg BID [facility] Administration Tiotropium [place] 1 puff 09/20/17 10:00 09/21/17 10:02 Spiriva - IH 1 cap DAILY [facility] Administration AP: AMS T2DM HYpothyroidism Start Levemir 12 units daily at HS Novolog SS coverage LTU 88 mcg QD
[2017-09-21 13:41] LABS: RATIO URIN PROTEIN/URIN CREAT 0.3 MG/DL
--- NOTE | 2017-09-21 13:56 | PN ---
Progress Note, Physician History of Present Illness: Pt seen and examined at bedside. She is more awake and alert today. She denies shortness of breath. She denies fever or chills. - Current Medication List Current Medications: Active Medications Albuterol Sulfate (Ventolin 0.083% Nebulizer Soln -) 1 amp NEB Q4H PRN PRN Reason: SHORT OF BREATH/WHEEZING Last Admin: 09/21/17 06:15 Dose: 1 amp Aspirin (Asa -) 81 mg PO DAILY [facility] Last Admin: 09/21/17 10:03 Dose: 81 mg Atorvastatin Calcium (Lipitor -) 40 mg PO [facility] Last Admin: 09/20/17 22:44 Dose: 40 mg Budesonide/Formoterol Fumarate (Symbicort 160/4.5mcg -) 1 puff IH BID [facility] Last Admin: 09/21/17 10:02 Dose: 1 puff Carvedilol (Coreg -) 12.5 mg PO BID [facility] Last Admin: 09/21/17 10:03 Dose: 12.5 mg Docusate Sodium (Colace -) 300 mg PO [facility] Last Admin: 09/20/17 22:43 Dose: 300 mg Gabapentin (Neurontin -) 300 mg PO TID [facility] Last Admin: 09/21/17 13:47 Dose: 300 mg Heparin Sodium (Porcine) (Heparin -) 5,000 unit SQ TID [facility] Last Admin: 09/21/17 13:47 Dose: 5,000 unit Sodium Chloride (Normal Saline -) 1,000 mls @ 50 mls/hr IV ASDIR [facility] Last Admin: 09/20/17 15:20 Dose: 50 mls/hr Insulin Aspart (Novolog Vial Sliding Scale -) 1 vial SQ [facility] PRN Reason: Protocol Last Admin: 09/20/17 22:59 Dose: Not Given Insulin Aspart (Novolog Vial Sliding Scale -) 1 vial SQ TIDAC [facility] PRN Reason: Protocol Last Admin: 09/21/17 11:11 Dose: Not Given Levothyroxine Sodium (Synthroid -) 88 mcg PO DAILY@0700 [facility] Last Admin: 09/21/17 06:00 Dose: 88 mcg Nitroglycerin (Nitrostat -) 0.4 mg SL ONCE PRN PRN Reason: chest pain Pantoprazole Sodium (Protonix -) 20 mg PO DAILY [facility] Last Admin: 09/21/17 10:03 Dose: 20 mg Polyethylene Glycol (Miralax (For Daily Use) -) 17 gm PO BID [facility] Last Admin: 09/21/17 10:03 Dose: 17 grams Ranolazine (Ranexa -) 500 mg PO BID [facility] Last Admin: 09/21/17 10:03 Dose: 500 mg Tiotropium [place] (Spiriva -) 1 puff IH DAILY [facility] Last Admin: 09/21/17 10:02 Dose: 1 cap - Objective Vital Signs: Vital Signs Temperature 98.5 F 09/21/17 07:46 Pulse Rate 63 09/21/17 07:46 Respiratory Rate 18 09/21/17 07:46 Blood Pressure 119/58 09/21/17 07:46 O2 Sat by Pulse Oximetry (%) 96 09/21/17 07:45 Constitutional: Yes: Calm Eyes: Yes: Conjunctiva Clear HENT: Yes: Atraumatic Cardiovascular: Yes: S1, S2 Respiratory: Yes: On Nasal O2 Gastrointestinal: Yes: Soft, Abdomen, Obese Genitourinary: Yes: [place] Present Musculoskeletal: Yes: WNL Edema: No Neurological: Yes: Oriented Psychiatric: Yes: Oriented Labs: CBC, BMP 09/21/17 06:35 09/21/17 06:35 INR, PTT INR 0.99 (0.82-1.09) 09/20/17 02:01 Assessment/Plan Current Medications Generic Name Dose Route Start Last Admin Trade Name Freq PRN Reason Stop Dose Admin Albuterol Sulfate 1 amp 09/20/17 08:34 09/21/17 06:15 Ventolin 0.083% Nebulizer Soln - NEB 1 amp Q4H PRN Administration SHORT OF BREATH/WHEEZING Aspirin 81 mg 09/20/17 10:00 09/21/17 10:03 Asa - PO 81 mg DAILY [facility] Administration Atorvastatin Calcium 40 mg 09/20/17 22:00 09/20/17 22:44 Lipitor - PO 40 mg HS [facility] Administration Budesonide/Formoterol Fumarate 1 puff 09/20/17 10:00 09/21/17 10:02 Symbicort 160/4.5mcg - IH 1 puff BID [facility] Administration Carvedilol 12.5 mg 09/20/17 10:00 09/21/17 10:03 Coreg - PO 12.5 mg BID [facility] Administration Docusate Sodium 300 mg 04/30/18 22:00 09/20/17 22:43 Colace - PO 300 mg HS [facility] Administration Gabapentin 300 mg 09/20/17 14:00 09/21/17 13:47 Neurontin - PO 300 mg TID [facility] Administration Heparin Sodium (Porcine) 5,000 unit 09/20/17 14:00 09/21/17 13:47 Heparin - SQ 5,000 unit TID [facility] Administration Sodium Chloride 1,000 mls @ 50 mls/hr 09/20/17 15:07 09/20/17 15:20 Normal Saline - IV 50 mls/hr ASDIR [facility] Administration Insulin Aspart 1 vial 09/20/17 22:00 09/20/17 22:59 Novolog Vial Sliding Scale - SQ Not Given HS [facility] Protocol Insulin Aspart 1 vial 09/20/17 16:30 09/21/17 11:11 Novolog Vial Sliding Scale - SQ Not Given TIDAC [facility] Protocol Levothyroxine Sodium 88 mcg 09/20/17 10:00 09/21/17 06:00 Synthroid - PO 88 mcg DAILY@0700 [facility] Administration Nitroglycerin 0.4 mg 09/20/17 08:34 Nitrostat - SL ONCE PRN chest pain Pantoprazole Sodium 20 mg 09/20/17 10:00 09/21/17 10:03 Protonix - PO 20 mg DAILY [facility] Administration Polyethylene Glycol 17 gm 09/20/17 22:00 09/21/17 10:03 Miralax (For Daily Use) - PO 17 grams BID [facility] Administration Ranolazine 500 mg 09/20/17 10:00 09/21/17 10:03 Ranexa - PO 500 mg BID [facility] Administration Tiotropium [place] 1 puff 09/20/17 10:00 09/21/17 10:02 Spiriva - IH 1 cap DAILY [facility] Administration Impression 1. HAROLDO 2. hyponatremia 3. DM uncontrolled 4. hypothyroidism 5. CHF 6. COPD 7. hyperkalemia 8. change in mental status Plan - renal function is improving - monitor blood sugar - repeat labs in am - potassium is improved - decrease rate of fluids further - urine studies reflect pt being on saline - will follow Dr Berman
[2017-09-21] MEDS: SODIUM CHLORIDE 1,000 ML IV SCH ×2 (14:46→22:00)
--- NOTE | 2017-09-21 16:15 | PN ---
Teaching Attending Note Name of Resident: Sylvain Hall ATTENDING PHYSICIAN STATEMENT I saw and evaluated the patient. I reviewed the resident's note and discussed the case with the resident. I agree with the resident's findings and plan as documented. SUBJECTIVE: Patient has no complaints. OBJECTIVE: Vital Signs Period Temp Pulse Resp BP Sys/Ibarra Pulse Ox Last 24 Hr 97.1 F-98.8 F 58-65 18-20 104-131/52-67 95-96 HEART: S1S2, RRR LUNGS: Clear ABDOMEN: Soft, non-tender, non-distended, normal BS EXTREMITIES: no edema Laboratory Results - last 24 hr 09/20/17 09/20/17 09/20/17 11:51 18:16 20:00 WBC RBC Hgb Hct MCV MCH MCHC RDW Plt Count MPV Neutrophils % Lymphocytes % Monocytes % Eosinophils % Basophils % Sodium 129 L Potassium 5.3 H Chloride 99 Carbon Dioxide 30 Anion Gap 0 L BUN 22 H Creatinine 1.3 H Creat Clearance w eGFR POC Glucometer 100.58249 206.43903 Random Glucose 181 H Serum Osmolality Calcium 8.0 L Phosphorus Magnesium Total Bilirubin AST ALT Alkaline Phosphatase Creatine Kinase Troponin I Total Protein Albumin Urine Osmolality U Random Total Protein Ur Random Sodium Ur Random Potassium Ur Random Chloride Urine Creatinine Protein/Creatinin Ratio 09/20/17 09/21/17 09/21/17 22:50 00:01 00:01 WBC RBC Hgb Hct MCV MCH MCHC RDW Plt Count MPV Neutrophils % Lymphocytes % Monocytes % Eosinophils % Basophils % Sodium Potassium Chloride Carbon Dioxide Anion Gap BUN Creatinine Creat Clearance w eGFR POC Glucometer 174 Random Glucose Serum Osmolality Calcium Phosphorus Magnesium Total Bilirubin AST ALT Alkaline Phosphatase Creatine Kinase Troponin I Total Protein Albumin Urine Osmolality U Random Total Protein 11 Ur Random Sodium 52 Ur Random Potassium 35.2 Ur Random Chloride 64 Urine Creatinine 40.1 Protein/Creatinin Ratio 0.3 09/21/17 09/21/17 09/21/17 00:04 05:40 06:35 WBC 6.4 RBC 3.18 L Hgb 9.8 L Hct 28.7 L MCV 90.4 MCH 30.7 MCHC 34.0 RDW 14.3 Plt Count 232 MPV 8.5 Neutrophils % 44.8 Lymphocytes % 39.6 D Monocytes % 10.0 Eosinophils % 4.9 H Basophils % 0.7 Sodium Potassium Chloride Carbon Dioxide Anion Gap BUN Creatinine Creat Clearance w eGFR POC Glucometer 188 Random Glucose Serum Osmolality Calcium Phosphorus Magnesium Total Bilirubin AST ALT Alkaline Phosphatase Creatine Kinase Troponin I Total Protein Albumin Urine Osmolality 322 U Random Total Protein Ur Random Sodium Ur Random Potassium Ur Random Chloride Urine Creatinine Protein/Creatinin Ratio 09/21/17 09/21/17 06:35 06:35 WBC RBC Hgb Hct MCV MCH MCHC RDW Plt Count MPV Neutrophils % Lymphocytes % Monocytes % Eosinophils % Basophils % Sodium 129 L Potassium 5.1 Chloride 98 Carbon Dioxide 26 Anion Gap 5 L BUN 18 Creatinine 1.1 H Creat Clearance w eGFR 47.55 POC Glucometer Random Glucose 157 H Serum Osmolality 275 L Calcium 7.9 L Phosphorus 3.4 Magnesium 1.9 Total Bilirubin 0.4 D AST 13 L ALT 20 Alkaline Phosphatase 100 Creatine Kinase 80 Troponin I < 0.02 Total Protein 6.0 L Albumin 3.0 L Urine Osmolality U Random Total Protein Ur Random Sodium Ur Random Potassium Ur Random Chloride Urine Creatinine Protein/Creatinin Ratio Current Medications Generic Name Dose Route Start Last Admin Trade Name Freq PRN Reason Stop Dose Admin Albuterol Sulfate 1 amp 09/20/17 08:34 09/21/17 06:15 Ventolin 0.083% Nebulizer Soln - NEB 1 amp Q4H PRN Administration SHORT OF BREATH/WHEEZING Aspirin 81 mg 09/20/17 10:00 09/21/17 10:03 Asa - PO 81 mg DAILY PALOMA Administration Atorvastatin Calcium 40 mg 09/20/17 22:00 09/20/17 22:44 Lipitor - PO 40 mg HS PALOMA Administration Budesonide/Formoterol Fumarate 1 puff 09/20/17 10:00 09/21/17 10:02 Symbicort 160/4.5mcg - IH 1 puff BID PALOMA Administration Carvedilol 12.5 mg 09/20/17 10:00 09/21/17 10:03 Coreg - PO 12.5 mg BID PALOMA Administration Docusate Sodium 300 mg 09/20/17 22:00 09/20/17 22:43 Colace - PO 300 mg HS PALOMA Administration Gabapentin 300 mg 09/20/17 14:00 09/21/17 13:47 Neurontin - PO 300 mg TID PALOMA Administration Heparin Sodium (Porcine) 5,000 unit 09/20/17 14:00 09/21/17 13:47 Heparin - SQ 5,000 unit TID PALOMA Administration Sodium Chloride 1,000 mls @ 40 mls/hr 09/21/17 13:57 Normal Saline - IV ASDIR [facility]OMA Insulin Aspart 1 vial 09/20/17 22:00 09/20/17 22:59 Novolog Vial Sliding Scale - SQ Not Given HS [facility] Protocol Insulin Aspart 1 vial 09/20/17 16:30 09/21/17 11:11 Novolog Vial Sliding Scale - SQ Not Given TIDAC [facility] Protocol Levothyroxine Sodium 88 mcg 09/20/17 10:00 09/21/17 06:00 Synthroid - PO 88 mcg DAILY@0700 PALOMA Administration Nitroglycerin 0.4 mg 09/20/17 08:34 Nitrostat - SL ONCE PRN chest pain Pantoprazole Sodium 20 mg 09/20/17 10:00 09/21/17 10:03 Protonix - PO 20 mg DAILY [facility]OMA Administration Polyethylene Glycol 17 gm 09/20/17 22:00 09/21/17 10:03 Miralax (For Daily Use) - PO 17 grams BID PALOMA Administration Ranolazine 500 mg 09/20/17 10:00 09/21/17 10:03 Ranexa - PO 500 mg BID PALOMA Administration Tiotropium [place] 1 puff 09/20/17 10:00 09/21/17 10:02 Spiriva - IH 1 cap DAILY PALOMA Administration ASSESSMENT AND PLAN: This is an 82 year old woman with a history of HTN, hyperlipidemia, CAD, CABG, chronic systolic heart failure, CVA, type 2 DM, diabetic neuropathy, hypothyroidism who presented to the ED with confusion and hallucinations. 1. Acute metabolic encephalopathy, likely secondary to hypoglycemia and possibly hyponatremia - Improved 2. Acute respiratory acidosis - Possibly secondary to hyperventilation 3. Hyponatremia - Stable 4. Hyperkalemia - Improved 4. Acute kidney injury secondary to dehydration - Improving - Continue IV fluid - Altace held - Continue to monitor BUN, creatinine 5. HTN - Continue Coreg - Altace held secondary to HAROLDO 6. Hyperlipidemia 7. CAD, history of CABG - Continue aspirin, Coreg, Ranexa 8. Chronic systolic heart failure - Stable 9. Type 2 DM with peripheral neuropathy - No further hypoglycemia - Prandin held - Fingersticks with Novolog sliding scale - Continue Neurontin for neuropathy 10. Hypothyroidism - Continue Synthroid 11. History of CVA - Continue aspirin
[2017-09-21] MEDS: DOCUSATE SODIUM 100 MG CAPSULE (FP) PO SCH (21:57)
[2017-09-21] MEDS: ATORVASTATIN CA 40 MG TABLET (FP) PO SCH (21:57)
[2017-09-21] MEDS ORDERED: INSULIN (LEVEMIR) 100 UNITS/ML UNITS SQ SCH (22:00)
--- NOTE | 2017-09-22 05:38 | PN ---
Physical Exam: SUBJECTIVE: Patient seen and examined - no major overnight events; afebrile, VSS; tolerating PO feeds; slept well overnight; no BM for 6 days, complaining of epigastric discomfort; denies f/c/n/ v/d, REYNA, cp, sob, cough, back pain, LE edema, neuro symptoms; OBJECTIVE: Vital Signs Intake & Output 09/19/17 09/20/17 09/21/17 09/22/17 23:59 23:59 23:59 23:59 Intake Total 860 1820 Output Total 500 1750 Balance 360 70 Weight 79.379 kg 77.111 kg Period Temp Pulse Resp BP Sys/Ibarra Pulse Ox Last 24 Hr 98.0 F-98.7 F 57-64 18-20 109-150/54-68 93-96 GENERAL: Elderly woman, NAD HEAD: NCAT EYES: PERRL, extraocular movements intact, sclera anicteric, conjunctiva clear. No ptosis. ENT: Ears normal, nares patent, oropharynx clear without exudates, moist mucous membranes. NECK: Trachea midline, full range of motion, supple. LUNGS: Breath sounds equal, clear to auscultation bilaterally, no wheezes, no crackles, no accessory muscle use. HEART: Regular rate and rhythm, S1, S2 without murmur, rub or gallop. ABDOMEN: Distended. TTP to palpation in epigastrium. Soft, nondistended, normoactive bowel sounds, no guarding, no rebound, no hepatosplenomegaly, no masses. EXTREMITIES: 2+ pulses, warm, well-perfused, no edema. NEUROLOGICAL: Cranial nerves II through XII grossly intact. Normal speech, gait not observed. PSYCH: Normal mood, normal affect. Interactive, pleasant SKIN: Warm, dry, normal turgor, no rashes or lesions noted Laboratory Results - last 24 hr CBC, BMP 09/22/17 07:00 09/21/17 06:35 09/21/17 06:35 09/21/17 09/21/17 09/21/17 00:01 05:40 06:35 WBC 6.4 RBC 3.18 L Hgb 9.8 L Hct 28.7 L MCV 90.4 MCH 30.7 MCHC 34.0 RDW 14.3 Plt Count 232 MPV 8.5 Neutrophils % 44.8 Lymphocytes % 39.6 D Monocytes % 10.0 Eosinophils % 4.9 H Basophils % 0.7 Sodium Potassium Chloride Carbon Dioxide Anion Gap BUN Creatinine Creat Clearance w eGFR POC Glucometer 188 Random Glucose Serum Osmolality Calcium Phosphorus Magnesium Total Bilirubin AST ALT Alkaline Phosphatase Creatine Kinase Troponin I Total Protein Albumin Protein/Creatinin Ratio 0.3 09/21/17 09/21/17 09/21/17 06:35 06:35 16:41 WBC RBC Hgb Hct MCV MCH MCHC RDW Plt Count MPV Neutrophils % Lymphocytes % Monocytes % Eosinophils % Basophils % Sodium 129 L Potassium 5.1 Chloride 98 Carbon Dioxide 26 Anion Gap 5 L BUN 18 Creatinine 1.1 H Creat Clearance w eGFR 47.55 POC Glucometer 285 Random Glucose 157 H Serum Osmolality 275 L Calcium 7.9 L Phosphorus 3.4 Magnesium 1.9 Total Bilirubin 0.4 D AST 13 L ALT 20 Alkaline Phosphatase 100 Creatine Kinase 80 Troponin I < 0.02 Total Protein 6.0 L Albumin 3.0 L Protein/Creatinin Ratio 09/21/17 22:05 WBC RBC Hgb Hct MCV MCH MCHC RDW Plt Count MPV Neutrophils % Lymphocytes % Monocytes % Eosinophils % Basophils % Sodium Potassium Chloride Carbon Dioxide Anion Gap BUN Creatinine Creat Clearance w eGFR POC Glucometer 187 Random Glucose Serum Osmolality Calcium Phosphorus Magnesium Total Bilirubin AST ALT Alkaline Phosphatase Creatine Kinase Troponin I Total Protein Albumin Protein/Creatinin Ratio Active Medications Generic Name Dose Route Start Last Admin Trade Name Freq PRN Reason Stop Dose Admin Albuterol Sulfate 1 amp 09/20/17 08:34 09/21/17 06:15 Ventolin 0.083% Nebulizer Soln - NEB 1 amp Q4H PRN Administration SHORT OF BREATH/WHEEZING Aspirin 81 mg 09/20/17 10:00 09/21/17 10:03 Asa - PO 81 mg DAILY PALOMA Administration Atorvastatin Calcium 40 mg 09/20/17 22:00 09/21/17 21:57 Lipitor - PO 40 mg HS PALOMA Administration Budesonide/Formoterol Fumarate 1 puff 09/20/17 10:00 09/21/17 21:58 Symbicort 160/4.5mcg - IH 1 puff BID PALOMA Administration Carvedilol 12.5 mg 09/20/17 10:00 09/21/17 21:58 Coreg - PO 12.5 mg BID PALOMA Administration Docusate Sodium 300 mg 09/20/17 22:00 09/21/17 21:57 Colace - PO 300 mg HS PALOMA Administration Gabapentin 300 mg 09/20/17 14:00 09/21/17 21:57 Neurontin - PO 300 mg TID PALOMA Administration Heparin Sodium (Porcine) 5,000 unit 09/20/17 14:00 09/21/17 21:57 Heparin - SQ 5,000 unit TID PALOMA Administration Sodium Chloride 1,000 mls @ 40 mls/hr 09/21/17 13:57 09/21/17 22:00 Normal Saline - IV 40 mls/hr ASDIR PALOMA Administration Insulin Aspart 1 vial 09/20/17 22:00 09/21/17 22:08 Novolog Vial Sliding Scale - SQ Not Given HS [facility] Protocol Insulin Aspart 1 vial 09/20/17 16:30 09/21/17 16:45 Novolog Vial Sliding Scale - SQ 6 units TIDAC PAL[facility] Administration Protocol Insulin Detemir 12 units 09/21/17 22:00 09/21/17 22:06 Levemir Vial SQ 12 units HS PALOMA Administration Levothyroxine Sodium 88 mcg 09/20/17 10:00 09/21/17 06:00 Synthroid - PO 88 mcg DAILY@0700 PALOMA Administration Nitroglycerin 0.4 mg 09/20/17 08:34 Nitrostat - SL ONCE PRN chest pain Pantoprazole Sodium 20 mg 09/20/17 10:00 09/21/17 10:03 Protonix - PO 20 mg DAILY PALOMA Administration Polyethylene Glycol 17 gm 09/20/17 22:00 09/21/17 22:11 Miralax (For Daily Use) - PO 17 grams BID PALOMA Administration Ranolazine 500 mg 09/20/17 10:00 09/21/17 21:57 Ranexa - PO 500 mg BID PALOMA Administration Tiotropium [place] 1 puff 09/20/17 10:00 09/21/17 10:02 Spiriva - IH 1 cap DAILY PALOMA Administration Microbiology 09/20/17 02:45 Urine - Urine - Catheterized Urine Culture - Final NO GROWTH OBTAINED 09/20/17 02:01 Blood - Peripheral Venous Blood Culture - Preliminary NO GROWTH OBTAINED AFTER 24 HOURS, INCUBATION TO CONTINUE FOR 4 DAYS. 09/20/17 02:07 Blood - Peripheral Venous Blood Culture - Preliminary NO GROWTH OBTAINED AFTER 24 HOURS, INCUBATION TO CONTINUE FOR 4 DAYS. CXR 09/20 - Since 08/30/2017 at 1331 hours, again noted is a sclerotic knob, sternal sutures and clips, degenerative spine and shoulder changes, left shoulder calcifications and there is slight increase in central lung markings compatible some mild congestion. Correlation recommended. Head CT 09/20 - Impression. No evidence of acute intracranial hemorrhage, edema, midline shift, mass effect, or skull fracture. No CT evidence of acute territorial ischemic changes. MRI may be considered, if acute stroke is suspected due to the increased sensitivity. Chest CT 09/20 - Thickening of the interstitial septa, bilaterally rule out mild pulmonary venous congestion. Status post CABG. Borderline enlarged precarinal lymph node. Tiny gallstones without gross thickening of the included gallbladder wall. 5 mm nonobstructing left renal stone with a partially exophytic 8 mm nodule for which correlation with ultrasound is needed for further characterization of its consistency, cystic versus solid Renal U/S 09/20 - IMPRESSION: Morphologically normal kidneys with no evidence of hydronephrosis or acute pathology. ASSESSMENT/PLAN: 82 year-old female with a PMH significant for HTN, HLD, CAD s/p CABG x 3 (2004) , systolic heart failure, CVA, IDDM, diabetic polyneuropathy, and hypothyroidism presents with altered mental status for the past 3 days. Likely d /c tomorrow. #AMS - likely secondary to hypoglycemia, hyponatremia; unlikely to be CVA - back at baseline per family - Endocrinology consulted, recs appreciated - Still with hypoNa 129. Decrease free water per renal - UA clean - TSH normal - Head CT negative #Hyponatremia 129; likely euvolemic; possibly secondary to hypothyroidism, alysa's, RTA or SIADH - urine lytes notable for elevated Na, urine osm; Serum osms decreased at 275; - consider renin/aldosterone ratio - decrease free water flushes - renal consulted - trend Na #Hyperkalemia - improving, 5.1 today - continue holding ACEi for now - trend #HAROLDO - cr 1.3 -> 1.1 today, improving; Renal U/S normal - likely prerenal - decrease IVFs - nephrology consult - trend Cr #Metabolic acidosis - resolved - IVFs #HLD - lipitor 40mg daily #h/o CAD/CABG/CHF - cardiac monitoring - ASA 81mg daily -coreg 12.5 bid -ranexa 500 bid -c/w nitroglycerin SL - daily weights - strict Is and Os #IDDM - Hba1c 10.5 - hold home meds -diabetic diet - ISS -BGMs - endo consult - dietary consult #hypothyroidism - TSH normal -c/w synthroid #peripheral neuropathy - c/w gabapentin #constipation - colonoscopy 4 years ago -miralax, senna #?COPD -ventolin q4h prn -symbicort -spiriva. -keep spo2 >88 fluid: NS 40cc/hr electrolyte - daily nutrition: diabetic diet. dvt pro; HSQ gi pro: PPI Plan discussed with Dr. Kirstin Hall, PGY1
[2017-09-22] MEDS: LEVOTHYROXINE NA 88 MCG TABLET (FP) PO SCH (06:31)
[2017-09-22] MEDS: GABAPENTIN 300 MG CAPSULE (FP) PO SCH ×2 (06:31→14:37)
[2017-09-22] MEDS: HEPARIN NA (PORCINE) 5,000 UNITS/ML 1ML VIAL SQ SCH ×2 (06:31→14:36)
[2017-09-22] MEDS: INSULIN SLIDING SCALE (NOVOLOG) 1 VIAL SQ SCH ×2 (06:39→11:57)
[2017-09-22 07:25] LABS: HEMATOCRIT 30.2 % (32.4-45.2); HEMOGLOBIN 10.2 GM/dL (10.7-15.3); MCH 30.8 pg (25.7-33.7); MCHC 33.9 g/dl (32.0-36.0); MEAN CELL VOLUME 90.8 fl (80-96); MEAN PLT VOLUME 8.6 fl (7.5-11.1); PLATELET COUNT 258 K/MM3 (134-434); RBC 3.33 M/mm3 (3.60-5.2); RDW 14.3 % (11.6-15.6); WHITE BLOOD COUNT 6.8 K/mm3 (4.0-10.0)
[2017-09-22 07:57] LABS: BLOOD UREA NITROGEN 14 mg/dL (7-18); CALCIUM 8.6 mg/dL (8.5-10.1); CHLORIDE 98 mmol/L (98-107); GLUCOSE,RANDOM 125 mg/dL (74-106); POTASSIUM 4.9 mmol/L (3.5-5.1); SODIUM 133 mmol/L (136-145)
[2017-09-22 07:59] LABS: ANION GAP 8 (8-16); CO2 27 mmol/L (21-32); CREATININE 1.1 mg/dL (0.55-1.02); PHOSPHOROUS 3.4 mg/dL (2.5-4.9)
[2017-09-22] MEDS ORDERED: BISACODYL 10 MG SUPP.RECT RC ONE ×2 (08:45→11:45)
--- NOTE | 2017-09-22 09:03 | PN ---
Progress Note (short form) - Note Progress Note: C/o Constipation Vital Signs Period Temp Pulse Resp BP Sys/Ibarra Pulse Ox Last 24 Hr 98.0 F-98.7 F 57-64 18-20 109-150/54-80 93-96 PE: Awake, alert Neck: Supple HEENT: EOMI Lungs: CTA Abd: Benign CVs: s1S2 EXt: No edema CMP Sodium 133 mmol/L (136-145) L 09/22/17 07:00 Potassium 4.9 mmol/L (3.5-5.1) 09/22/17 07:00 Chloride 98 mmol/L (98-107) 09/22/17 07:00 Carbon Dioxide 27 mmol/L (21-32) 09/22/17 07:00 Anion Gap 8 (8-16) 09/22/17 07:00 BUN 14 mg/dL (7-18) 09/22/17 07:00 Creatinine 1.1 mg/dL (0.55-1.02) H 09/22/17 07:00 Creat Clearance w eGFR 47.55 (>60) 09/21/17 06:35 POC Glucometer 271 UNITS (80-120) 09/22/17 11:53 Random Glucose 125 mg/dL (74-106) H 09/22/17 07:00 Serum Osmolality 275 mosm/kg (278-305) L 09/21/17 06:35 Lactic Acid 1.9 mmol/L (0.0-2.0) 09/20/17 02:00 Calcium 8.6 mg/dL (8.5-10.1) 09/22/17 07:00 Phosphorus 3.4 mg/dL (2.5-4.9) 09/22/17 07:00 Magnesium 2.0 mg/dL (1.8-2.4) 09/22/17 07:00 Total Bilirubin 0.4 mg/dL (0.2-1.0) D 09/21/17 06:35 AST 13 U/L (15-37) L 09/21/17 06:35 ALT 20 U/L (12-78) 09/21/17 06:35 Alkaline Phosphatase 100 U/L (45-117) 09/21/17 06:35 Creatine Kinase 80 IU/L (26-192) 09/21/17 06:35 Troponin I < 0.02 ng/ml (0.00-0.05) 09/21/17 06:35 Total Protein 6.0 g/dl (6.4-8.2) L 09/21/17 06:35 Albumin 3.0 g/dl (3.4-5.0) L 09/21/17 06:35 TSH 1.46 uIU/ml (0.358-3.74) 09/20/17 09:40 AP; AMS T2DM HYpothyroidism Levemir 12 units daily at HS Novolog SS coverage LTU 88 mcg QD Will f/u
[2017-09-22 09:08] LABS: PLATELET ESTIMATE ADEQUATE
[2017-09-22] MEDS ORDERED: PT OWN MED DRAWER 7, Y5N ONE (09:27)
[2017-09-22] MEDS: CARVEDILOL 12.5 MG TABLET (FP) PO SCH (09:43)
[2017-09-22] MEDS: TIOTROPIUM BROMIDE 18 MCG CAPSULES IH SCH (09:43)
[2017-09-22] MEDS: RANOLAZINE E.R. 500 MG TABLET (FP) PO SCH (09:43)
[2017-09-22] MEDS: ASPIRIN 81 MG CHEWABLE TABLETS PO SCH (09:43)
[2017-09-22] MEDS: PANTOPRAZOLE 20 MG TABLET (FP) PO SCH (09:43)
[2017-09-22] MEDS: POLYETHYLENE GLYCOL 3350 119 GM BTL PO SCH (09:44)
[2017-09-22] MEDS: BUDESONIDE/FORMETEROL FUMARATE 160/4.5 mcg INHALER IH SCH (09:44)
--- NOTE | 2017-09-22 11:43 | PN ---
Teaching Attending Note Name of Resident: Sylvain Hall ATTENDING PHYSICIAN STATEMENT I saw and evaluated the patient. I reviewed the resident's note and discussed the case with the resident. I agree with the resident's findings and plan as documented. SUBJECTIVE: No complaints. OBJECTIVE: Vital Signs Period Temp Pulse Resp BP Sys/Ibarra Pulse Ox Last 24 Hr 98.0 F-98.7 F 57-64 18-20 109-150/54-80 93-96 HEART: S1S2, RRR LUNGS: Clear ABDOMEN: Soft, non-tender, non-distended, normal BS EXTREMITIES: No edema Laboratory Results - last 24 hr 09/21/17 09/21/17 09/21/17 00:01 06:35 16:41 WBC RBC Hgb Hct MCV MCH MCHC RDW Plt Count MPV Total Counted Neutrophils % Neutrophils % (Manual) Band Neutrophils % Lymphocytes % Lymphocytes % (Manual) Monocytes % (Manual) Eosinophils % (Manual) Platelet Estimate Platelet Comment Sodium Potassium Chloride Carbon Dioxide Anion Gap BUN Creatinine POC Glucometer 285 Random Glucose Serum Osmolality 275 L Calcium Phosphorus Magnesium Protein/Creatinin Ratio 0.3 09/21/17 09/22/17 09/22/17 22:05 06:34 07:00 WBC RBC Hgb Hct MCV MCH MCHC RDW Plt Count MPV Total Counted Neutrophils % Neutrophils % (Manual) Band Neutrophils % Lymphocytes % Lymphocytes % (Manual) Monocytes % (Manual) Eosinophils % (Manual) Platelet Estimate Platelet Comment Sodium 133 L Potassium 4.9 Chloride 98 Carbon Dioxide 27 Anion Gap 8 BUN 14 Creatinine 1.1 H POC Glucometer 187 133 Random Glucose 125 H Serum Osmolality Calcium 8.6 Phosphorus 3.4 Magnesium 2.0 Protein/Creatinin Ratio 09/22/17 07:00 WBC 6.8 RBC 3.33 L Hgb 10.2 L Hct 30.2 L MCV 90.8 MCH 30.8 MCHC 33.9 RDW 14.3 Plt Count 258 MPV 8.6 Total Counted 100 Neutrophils % No Result Required. Neutrophils % (Manual) 50.0 Band Neutrophils % 1.0 Lymphocytes % No Result Required. Lymphocytes % (Manual) 34.0 Monocytes % (Manual) 12 H Eosinophils % (Manual) 3.0 Platelet Estimate Adequate Platelet Comment No clumping noted Sodium Potassium Chloride Carbon Dioxide Anion Gap BUN Creatinine POC Glucometer Random Glucose Serum Osmolality Calcium Phosphorus Magnesium Protein/Creatinin Ratio Current Medications Generic Name Dose Route Start Last Admin Trade Name Freq PRN Reason Stop Dose Admin Albuterol Sulfate 1 amp 09/20/17 08:34 09/21/17 06:15 Ventolin 0.083% Nebulizer Soln - NEB 1 amp Q4H PRN Administration SHORT OF BREATH/WHEEZING Aspirin 81 mg 09/20/17 10:00 09/22/17 09:43 Asa - PO 81 mg DAILY PALOMA Administration Atorvastatin Calcium 40 mg 09/20/17 22:00 09/21/17 21:57 Lipitor - PO 40 mg HS PALOMA Administration Bisacodyl 10 mg 09/22/17 11:45 Dulcolax Suppository - RC 09/22/17 11:46 ONCE ONE Budesonide/Formoterol Fumarate 1 puff 09/20/17 10:00 09/22/17 09:44 Symbicort 160/4.5mcg - IH 1 puff BID PALOMA Administration Carvedilol 12.5 mg 09/20/17 10:00 09/22/17 09:43 Coreg - PO 12.5 mg BID PALOMA Administration Docusate Sodium 300 mg 09/20/17 22:00 09/21/17 21:57 Colace - PO 300 mg HS PALOMA Administration Gabapentin 300 mg 09/20/17 14:00 09/22/17 06:31 Neurontin - PO 300 mg TID PALOMA Administration Heparin Sodium (Porcine) 5,000 unit 09/20/17 14:00 09/22/17 06:31 Heparin - SQ 5,000 unit TID PALOMA Administration Sodium Chloride 1,000 mls @ 40 mls/hr 09/21/17 13:57 09/21/17 22:00 Normal Saline - IV 40 mls/hr ASDIR PALOMA Administration Insulin Aspart 1 vial 09/20/17 22:00 09/21/17 22:08 Novolog Vial Sliding Scale - SQ Not Given HS [facility] Protocol Insulin Aspart 1 vial 09/20/17 16:30 09/22/17 06:39 Novolog Vial Sliding Scale - SQ Not Given TIDAC [facility] Protocol Insulin Detemir 12 units 09/21/17 22:00 09/21/17 22:06 Levemir Vial SQ 12 units HS PALOMA Administration Levothyroxine Sodium 88 mcg 09/20/17 10:00 09/22/17 06:31 Synthroid - PO 88 mcg DAILY@0700 PALOMA Administration Nitroglycerin 0.4 mg 09/20/17 08:34 Nitrostat - SL ONCE PRN chest pain Pantoprazole Sodium 20 mg 09/20/17 10:00 09/22/17 09:43 Protonix - PO 20 mg DAILY PALOMA Administration Polyethylene Glycol 17 gm 09/20/17 22:00 09/22/17 09:44 Miralax (For Daily Use) - PO 17 grams BID PALOMA Administration Ranolazine 500 mg 09/20/17 10:00 09/22/17 09:43 Ranexa - PO 500 mg BID PALOMA Administration Tiotropium [place] 1 puff 09/20/17 10:00 09/22/17 09:43 Spiriva - IH 1 cap DAILY PALOMA Administration ASSESSMENT AND PLAN: This is an 82 year old woman with a history of HTN, hyperlipidemia, CAD, CABG, chronic systolic heart failure, CVA, type 2 DM, diabetic neuropathy, hypothyroidism who presented to the ED with confusion and hallucinations. 1. Acute metabolic encephalopathy, likely secondary to hypoglycemia and possibly hyponatremia - Improved 2. Acute respiratory acidosis - Possibly secondary to hyperventilation 3. Hyponatremia - Improved 4. Hyperkalemia - Improved 5. Acute kidney injury secondary to dehydration - Improved 6. HTN - Continue Coreg - Altace held secondary to HAROLDO 7. Hyperlipidemia - Continue Lipitor 8. CAD, history of CABG - Continue aspirin, Coreg, Ranexa 9. Chronic systolic heart failure - Stable 10. Type 2 DM with peripheral neuropathy - No further hypoglycemia - Levemir restarted - Fingersticks with Novolog sliding scale - Continue Neurontin for neuropathy 11. Hypothyroidism - Continue Synthroid 12. History of CVA - Continue aspirin 13. Ok for discharge home - Levemir 12 units qhs - Novolog sliding scale - Continue to hold Prandin, Altace until follow-up with PCP
--- NOTE | 2017-09-22 12:19 | DS ---
Physical Exam: SUBJECTIVE: Patient seen and examined - no major overnight events; afebrile, VSS; tolerating PO feeds; slept well overnight; no BM for 6 days, complaining of epigastric discomfort; denies f/c/n/ v/d, REYNA, cp, sob, cough, back pain, LE edema, neuro symptoms; OBJECTIVE: Vital Signs Intake & Output 09/19/17 09/20/17 09/21/17 09/22/17 23:59 23:59 23:59 23:59 Intake Total 860 1820 Output Total 500 1750 Balance 360 70 Weight 79.379 kg 77.111 kg 80.286 kg Period Temp Pulse Resp BP Sys/Ibarra Pulse Ox Last 24 Hr 98.0 F-98.7 F 57-64 18-20 109-150/54-80 93-96 PHYSICAL EXAM GENERAL: Elderly woman, NAD HEAD: NCAT EYES: PERRL, extraocular movements intact, sclera anicteric, conjunctiva clear. No ptosis. ENT: Ears normal, nares patent, oropharynx clear without exudates, moist mucous membranes. NECK: Trachea midline, full range of motion, supple. LUNGS: Breath sounds equal, clear to auscultation bilaterally, no wheezes, no crackles, no accessory muscle use. HEART: Regular rate and rhythm, S1, S2 without murmur, rub or gallop. ABDOMEN: Distended. TTP to palpation in epigastrium. Soft, nondistended, normoactive bowel sounds, no guarding, no rebound, no hepatosplenomegaly, no masses. EXTREMITIES: 2+ pulses, warm, well-perfused, no edema. NEUROLOGICAL: Cranial nerves II through XII grossly intact. Normal speech, gait not observed. PSYCH: Normal mood, normal affect. Interactive, pleasant SKIN: Warm, dry, normal turgor, no rashes or lesions noted LABS Laboratory Results - last 24 hr CBC, BMP 09/22/17 07:00 09/22/17 07:00 09/21/17 09/21/17 09/21/17 00:01 06:35 16:41 WBC RBC Hgb Hct MCV MCH MCHC RDW Plt Count MPV Total Counted Neutrophils % Neutrophils % (Manual) Band Neutrophils % Lymphocytes % Lymphocytes % (Manual) Monocytes % (Manual) Eosinophils % (Manual) Platelet Estimate Platelet Comment Sodium Potassium Chloride Carbon Dioxide Anion Gap BUN Creatinine POC Glucometer 285 Random Glucose Serum Osmolality 275 L Calcium Phosphorus Magnesium Protein/Creatinin Ratio 0.3 09/21/17 09/22/17 09/22/17 22:05 06:34 07:00 WBC RBC Hgb Hct MCV MCH MCHC RDW Plt Count MPV Total Counted Neutrophils % Neutrophils % (Manual) Band Neutrophils % Lymphocytes % Lymphocytes % (Manual) Monocytes % (Manual) Eosinophils % (Manual) Platelet Estimate Platelet Comment Sodium 133 L Potassium 4.9 Chloride 98 Carbon Dioxide 27 Anion Gap 8 BUN 14 Creatinine 1.1 H POC Glucometer 187 133 Random Glucose 125 H Serum Osmolality Calcium 8.6 Phosphorus 3.4 Magnesium 2.0 Protein/Creatinin Ratio 09/22/17 07:00 WBC 6.8 RBC 3.33 L Hgb 10.2 L Hct 30.2 L MCV 90.8 MCH 30.8 MCHC 33.9 RDW 14.3 Plt Count 258 MPV 8.6 Total Counted 100 Neutrophils % No Result Required. Neutrophils % (Manual) 50.0 Band Neutrophils % 1.0 Lymphocytes % No Result Required. Lymphocytes % (Manual) 34.0 Monocytes % (Manual) 12 H Eosinophils % (Manual) 3.0 Platelet Estimate Adequate Platelet Comment No clumping noted Sodium Potassium Chloride Carbon Dioxide Anion Gap BUN Creatinine POC Glucometer Random Glucose Serum Osmolality Calcium Phosphorus Magnesium Protein/Creatinin Ratio Microbiology 09/20/17 02:45 Urine - Urine - Catheterized Urine Culture - Final NO GROWTH OBTAINED 09/20/17 02:01 Blood - Peripheral Venous Blood Culture - Preliminary NO GROWTH OBTAINED AFTER 24 HOURS, INCUBATION TO CONTINUE FOR 4 DAYS. 09/20/17 02:07 Blood - Peripheral Venous Blood Culture - Preliminary NO GROWTH OBTAINED AFTER 24 HOURS, INCUBATION TO CONTINUE FOR 4 DAYS. CXR 09/20 - Since 08/30/2017 at 1331 hours, again noted is a sclerotic knob, sternal sutures and clips, degenerative spine and shoulder changes, left shoulder calcifications and there is slight increase in central lung markings compatible some mild congestion. Correlation recommended. Head CT 09/20 - Impression. No evidence of acute intracranial hemorrhage, edema, midline shift, mass effect, or skull fracture. No CT evidence of acute territorial ischemic changes. MRI may be considered, if acute stroke is suspected due to the increased sensitivity. Chest CT 09/20 - Thickening of the interstitial septa, bilaterally rule out mild pulmonary venous congestion. Status post CABG. Borderline enlarged precarinal lymph node. Tiny gallstones without gross thickening of the included gallbladder wall. 5 mm nonobstructing left renal stone with a partially exophytic 8 mm nodule for which correlation with ultrasound is needed for further characterization of its consistency, cystic versus solid Renal U/S 09/20 - IMPRESSION: Morphologically normal kidneys with no evidence of hydronephrosis or acute pathology. Consults: Renal - Seen by Dr. Berman Endo - Seen by Dr. Infante [facility] COURSE: Prehospital: History obtained from ed notes. I called her daughter 3 times left a message to call back but didn't hear anything back. Patient speaks [place] tried taking a help of [employer] cyber ops planner but didn't work as patient was giving a wage answers. Patient doesn't look AMS to me. Likely when patient came to ER she was AMS because of hypoglycemia and it resolved. Waiting for daughter to call back to take further history. But till then we will use history obtained by ED doctors. 82 year-old female with a PMH significant for HTN, HLD, CAD s/p CABG x 3 (2004) , systolic heart failure, CVA, IDDM, diabetic polyneuropathy, and hypothyroidism presents with altered mental status for the past 3 days, with hallucinations as per family who she lives with. She also was noticed to have chills and looking increasingly distressed. Was found to have a blood sugar of 30 this morning, was given orange juice and sugar and retested at 300 when brought in by ems. Patient lives with daughter and son in [facility]: Vitals notable for temp of 93 on admission. Pt mental status improved upon presentation to ED by mid afternoon. Initial BG 307 on admission. CBC, UA normal. VBG notable for 7.24/44/111. BMP notable for Na 129, K 5.2, BUN/Cr 31/ 1.7. TSH 1.46. Renal and endo consulted. ACEi held. Pt placed on SS, IVFs home meds restarted. Head CT as noted above. CXR and Chest CT as noted above. Renal U /S as noted. Pt with return to baseline MS on day 1 of admission, BGMs normalized, electrolytes normalized with fluids, HAROLDO resolved. Urine/serum lytes notable for euvolemic hyponatremia, possibly secondary to SIADH, hypothyroidism or adrenal insufficiency. Pt seen by endo, continued on novolog sliding scale and added 12u levemir at bedtime. Course complicated by 6 days of constipation per pt, placed on bowel regimen during admission. Pt discharge with outpt f/u with PCP and endocrinology. Date of Admission:09/20/17 Date of Discharge: 09/22/17 Pt is medically stable and cleared for discharge with outpt f/u with PCP and Dr. Infante in one week. Minutes to complete discharge: 35 Discharge Summary Reason For Visit: HYPOGLYCEMIA,HYPONATREMIA Current Active Problems Hypoglycemia (Acute) Condition: Stable - Instructions Diet, Activity, Other Instructions: During your stay at [facility], you were diagnosed and treated for low blood sugar, electrolyte abnormalities, change in your mental status and acute injury to your kidney, likely secondary to dehydration. You received hydration and your blood tests have since normalized. You are being discharged home with outpatient follow-up with your PCP. Medications: The following medications were added to your home regimen. Please take them as specified below: Lipitor 40mg, take one pill by mouth once a day. Spiriva, take one cap once a day Symbicort, use your inhaler twice day Levemir, 12 unit injection at bedtime, once a day. DO NOT GIVE MORE THAN THIS DOSE. Please use the following sliding scale with your home novolog insulin dosing at mealtime: Blood Glucose Novolog Dose 100-150 0 150-200 2 200-250 4 250-300 6 300-350 8 350-400 10 400+ Give 10 units and call your PMD Please take miralax once a day if you experience constipation. This medication is available over the counter Please stop taking the following medication until you are seen by your primary care physician: Lisinopril Renaglitide Please continue to take all other home medications as previously directed. Follow-ups: Please follow-up with your primary care physician in one week for further management of your medications. Please call their office to schedule an appointment. Please call within one week to schedule an appointment. Please follow-up with our cable strander, Dr. Mena, in one week for further management of your diabetes and hypothyroidism. His contact number has been provided in this packet. Please call his office to make an appointment. Please obtain the following lab tests in 48 hours after your discharge: Basic Metabolic Panel Diet: Please abide by the diabetic diet provided in this packet. You are cleared for your normal exercise routine Please return to the hospital if you experience any of the following symptoms: - Change in mental status from your baseline noted by family members - Persistent dizziness, dehydration or decreased oral intake - Seeing or hearing things that aren't there - Continuously low blood sugars <60 or elevated blood sugars >400 - Any new or concerning symptoms Referrals: Luz Kaur MD [Primary Care Provider] - 1 Week Sharif Mena MD [Staff Physician] - 1 Week Disposition: HOME - Home Medications Comprehensive Discharge Medication List: Ambulatory Orders Aspirin [ASA -] 81 mg PO DAILY 08/20/17 Carvedilol [Coreg -] 12.5 mg PO BID 08/20/17 Levothyroxine [Synthroid -] 88 mcg PO DAILY 08/20/17 Omeprazole 20 mg PO DAILY 08/20/17 Ranolazine [Ranexa] 500 mg PO BID 08/20/17 Albuterol 0.083% Nebulizer Anjali [Ventolin 0.083% Nebulizer Soln -] 1 amp NEB Q4H PRN #120 amp 08/31/17 Gabapentin [Neurontin -] 300 mg PO TID #90 capsule 08/31/17 Nitroglycerin [Nitrostat] 0.4 mg SL ONCE PRN 09/20/17 Ramipril 2.5 mg PO DAILY 09/20/17 Atorvastatin Ca [Lipitor] 40 mg PO HS #30 tablet 09/21/17 Budesonide/Formeterol Fumarate [SYMBICORT 160/4.5mcg -] 1 puff IH BID #1 inhaler 09/21/17 Miscellaneous Drug Not In Syst [Outpatient Lab Test] 1 each ASDIR #1 misc 06/10 Polyethylene Glycol 3350 [Miralax 119 gm Btl -] 17 gm PO BID bottle 09/21/17 Tiotropium Fedscreek [Spiriva] 1 puff IH DAILY #30 cap 09/21/17 Insulin Detemir [Levemir Flextouch] 12 unit SQ HS #30 insuln.pen 09/22/17 Insulin Sliding Scale [Novolog Vial Sliding Scale -] See Protocol SQ TIDAC #5 vial 09/22/17 Lancets/Blood Glucose Strips [Fora [id number] Strp-Lnct] 1 each ASDIR # 1 combo..pkg 09/22/17 This patient is new to me today: No Emergency Visit: Yes ED Registration Date: 09/20/17 Care time: The patient presented to the Emergency Department on the above date and was hospitalized for further evaluation of their emergent condition. Critical Care patient: No - Discharge Referral Referred to [facility] No
--- NOTE | 2017-09-22 13:02 | PN ---
Progress Note, Physician History of Present Illness: Pt seen and examined at bedside. She is awake and alert. She is sitting up having lunch. She denies shortness of breath. - Current Medication List Current Medications: Active Medications Albuterol Sulfate (Ventolin 0.083% Nebulizer Soln -) 1 amp NEB Q4H PRN PRN Reason: SHORT OF BREATH/WHEEZING Last Admin: 09/21/17 06:15 Dose: 1 amp Aspirin (Asa -) 81 mg PO DAILY [facility] Last Admin: 09/22/17 09:43 Dose: 81 mg Atorvastatin Calcium (Lipitor -) 40 mg PO [facility] Last Admin: 09/21/17 21:57 Dose: 40 mg Budesonide/Formoterol Fumarate (Symbicort 160/4.5mcg -) 1 puff IH BID [facility] Last Admin: 09/22/17 09:44 Dose: 1 puff Carvedilol (Coreg -) 12.5 mg PO BID [facility] Last Admin: 09/22/17 09:43 Dose: 12.5 mg Docusate Sodium (Colace -) 300 mg PO [facility] Last Admin: 09/21/17 21:57 Dose: 300 mg Gabapentin (Neurontin -) 300 mg PO TID [facility] Last Admin: 09/22/17 06:31 Dose: 300 mg Heparin Sodium (Porcine) (Heparin -) 5,000 unit SQ TID [facility] Last Admin: 09/22/17 06:31 Dose: 5,000 unit Sodium Chloride (Normal Saline -) 1,000 mls @ 40 mls/hr IV ASDIR [facility] Last Admin: 09/21/17 22:00 Dose: 40 mls/hr Insulin Aspart (Novolog Vial Sliding Scale -) 1 vial SQ [facility] PRN Reason: Protocol Last Admin: 09/21/17 22:08 Dose: Not Given Insulin Aspart (Novolog Vial Sliding Scale -) 1 vial SQ TIDAC [facility] PRN Reason: Protocol Last Admin: 09/22/17 11:57 Dose: 6 units Insulin Detemir (Levemir Vial) 12 units SQ [facility] Last Admin: 09/21/17 22:06 Dose: 12 units Levothyroxine Sodium (Synthroid -) 88 mcg PO DAILY@0700 [facility] Last Admin: 09/22/17 06:31 Dose: 88 mcg Nitroglycerin (Nitrostat -) 0.4 mg SL ONCE PRN PRN Reason: chest pain Pantoprazole Sodium (Protonix -) 20 mg PO DAILY [facility] Last Admin: 09/22/17 09:43 Dose: 20 mg Polyethylene Glycol (Miralax (For Daily Use) -) 17 gm PO BID [facility] Last Admin: 09/22/17 09:44 Dose: 17 grams Ranolazine (Ranexa -) 500 mg PO BID [facility] Last Admin: 09/22/17 09:43 Dose: 500 mg Tiotropium Miranda (Spiriva -) 1 puff IH DAILY [facility] Last Admin: 09/22/17 09:43 Dose: 1 cap - Objective Vital Signs: Vital Signs Temperature 98.3 F 09/22/17 10:00 Pulse Rate 63 09/22/17 10:00 Respiratory Rate 20 09/22/17 10:00 Blood Pressure 129/61 09/22/17 10:00 O2 Sat by Pulse Oximetry (%) 94 L 09/22/17 09:00 Constitutional: Yes: Calm Eyes: Yes: Conjunctiva Clear HENT: Yes: Atraumatic Neck: Yes: Supple Cardiovascular: Yes: S1, S2 Respiratory: Yes: CTA Bilaterally Gastrointestinal: Yes: Soft, Abdomen, Obese Genitourinary: Yes: WNL Musculoskeletal: Yes: WNL Edema: No Neurological: Yes: Oriented Psychiatric: Yes: Oriented Labs: CBC, BMP 09/22/17 07:00 09/22/17 07:00 INR, PTT INR 0.99 (0.82-1.09) 09/20/17 02:01 Assessment/Plan Current Medications Generic Name Dose Route Start Last Admin Trade Name Freq PRN Reason Stop Dose Admin Albuterol Sulfate 1 amp 09/20/17 08:34 09/21/17 06:15 Ventolin 0.083% Nebulizer Soln - NEB 1 amp Q4H PRN Administration SHORT OF BREATH/WHEEZING Aspirin 81 mg 09/20/17 10:00 09/22/17 09:43 Asa - PO 81 mg DAILY [facility] Administration Atorvastatin Calcium 40 mg 09/20/17 22:00 09/21/17 21:57 Lipitor - PO 40 mg HS [facility] Administration Budesonide/Formoterol Fumarate 1 puff 09/20/17 10:00 09/22/17 09:44 Symbicort 160/4.5mcg - IH 1 puff BID [facility] Administration Carvedilol 12.5 mg 09/20/17 10:00 09/22/17 09:43 Coreg - PO 12.5 mg BID [facility] Administration Docusate Sodium 300 mg 09/20/17 22:00 09/21/17 21:57 Colace - PO 300 mg HS [facility] Administration Gabapentin 300 mg 09/20/17 14:00 09/22/17 06:31 Neurontin - PO 300 mg TID [facility] Administration Heparin Sodium (Porcine) 5,000 unit 09/20/17 14:00 09/22/17 06:31 Heparin - SQ 5,000 unit TID [facility] Administration Sodium Chloride 1,000 mls @ 40 mls/hr 09/21/17 13:57 09/21/17 22:00 Normal Saline - IV 40 mls/hr ASDIR [facility] Administration Insulin Aspart 1 vial 09/20/17 22:00 09/21/17 22:08 Novolog Vial Sliding Scale - SQ Not Given HS [facility] Protocol Insulin Aspart 1 vial 09/20/17 16:30 09/22/17 11:57 Novolog Vial Sliding Scale - SQ 6 units TIDAC [facility] Administration Protocol Insulin Detemir 12 units 09/21/17 22:00 09/21/17 22:06 Levemir Vial SQ 12 units HS [facility] Administration Levothyroxine Sodium 88 mcg 09/20/17 10:00 09/22/17 06:31 Synthroid - PO 88 mcg DAILY@0700 [facility] Administration Nitroglycerin 0.4 mg 09/20/17 08:34 Nitrostat - SL ONCE PRN chest pain Pantoprazole Sodium 20 mg 09/20/17 10:00 09/22/17 09:43 Protonix - PO 20 mg DAILY [facility] Administration Polyethylene Glycol 17 gm 09/20/17 22:00 09/22/17 09:44 Miralax (For Daily Use) - PO 17 grams BID [facility] Administration Ranolazine 500 mg 09/20/17 10:00 09/22/17 09:43 Ranexa - PO 500 mg BID [facility] Administration Tiotropium Miranda 1 puff 09/20/17 10:00 09/22/17 09:43 Spiriva - IH 1 cap DAILY [facility] Administration Impression 1. HAROLDO 2. hyponatremia 3. DM uncontrolled 4. hypothyroidism 5. CHF 6. COPD 7. hyperkalemia 8. change in mental status Plan - potassium is stable - renal function stabilizing - sodium is improving - will need outpt follow up - can d/c fluids and monitor with PO intake - will follow Dr Berman
[2017-09-22 13:41] VITALS: BP 128/49; PULSE 64; TEMP 98
== END 2017-09-22 14:31 | disposition home or self-care (01) | DRG 637 ==
LOC: JER 01:35 → JERBED 06:00 → J4W 19:30 → J5S 09-21 17:00
PROVIDERS: ADMIT Hospitalist; ATTEND Internal Medicine
DX: E11.649 Type 2 diabetes mellitus with hypoglycemia without coma (principal); G93.41 Metabolic encephalopathy; E87.2 Acidosis; E87.1 Hypo-osmolality and hyponatremia; I50.22 Chronic systolic (congestive) heart failure; I25.10 Atherosclerotic heart disease of native coronary artery without angina pectoris; N17.9 Acute kidney failure, unspecified; I11.0 Hypertensive heart disease with heart failure; E11.65 Type 2 diabetes mellitus with hyperglycemia; E78.5 Hyperlipidemia, unspecified; E11.42 Type 2 diabetes mellitus with diabetic polyneuropathy; R68.0 Hypothermia, not associated with low environmental temperature; E03.9 Hypothyroidism, unspecified; R00.1 Bradycardia, unspecified; N20.0 Calculus of kidney; R94.31 Abnormal electrocardiogram [ECG] [EKG]; E87.5 Hyperkalemia; K59.00 Constipation, unspecified; J44.9 Chronic obstructive pulmonary disease, unspecified; E86.0 Dehydration; E66.9 Obesity, unspecified; Z68.29 Body mass index [BMI] 29.0-29.9, adult; Z95.1 Presence of aortocoronary bypass graft; Z86.73 Personal history of transient ischemic attack (TIA), and cerebral infarction without residual deficits
CPT/HCPCS: 36415; 70450-TC; 71045-TC-FY; 71046-TC-FY; 71250-TC; 76775-TC; 80048; 80051; 80053; 81003; 82436; 82550; 82570; 82803; 82962; 83605; 83735; 83930; 83935; 84100; 84133; 84156; 84300; 84443; 84484; 85025; 85610; 87040; 87086; 93005; 93010; 94640; 97116-GP; 97161-GP; 99285-25; J1644; J7030

== ENCOUNTER 2017-12-01 12:59 | Day surgery (SDC) | payer OTHER ==
[2017-12-01 13:42] LABS: HEMATOCRIT 38.9 % (32.4-45.2); HEMOGLOBIN 12.8 GM/dL (10.7-15.3); MCH 30.1 pg (25.7-33.7); MEAN CELL VOLUME 91.1 fl (80-96); MEAN PLT VOLUME 8.7 fl (7.5-11.1); PLATELET COUNT 294 K/MM3 (134-434); RBC 4.26 M/mm3 (3.60-5.2); RDW 14.1 % (11.6-15.6); WHITE BLOOD COUNT 8.9 K/mm3 (4.0-10.0)
[2017-12-01 14:12] LABS: ALBUMIN 3.7 g/dl (3.4-5.0); ANION GAP 8 (8-16); BILIRUBIN,TOTAL 0.3 mg/dL (0.2-1.0); BLOOD UREA NITROGEN 18 mg/dL (7-18); CALCIUM 9.6 mg/dL (8.5-10.1); CHLORIDE 94 mmol/L (98-107); CO2 29 mmol/L (21-32); CREATININE 1.5 mg/dL (0.55-1.02); GLUCOSE,RANDOM 247 mg/dL (74-106); POTASSIUM 4.8 mmol/L (3.5-5.1); SGOT/AST 15 U/L (15-37); SGPT/ALT 23 U/L (12-78); SODIUM 131 mmol/L (136-145); TOT PROT 8.2 g/dl (6.4-8.2)
[2017-12-01 14:13] LABS: ALK PHOS 139 U/L (45-117)
[2017-12-01 15:25] VITALS: BP 157/65; PULSE 60; TEMP 98.6
== END 2017-12-01 14:25 | disposition home or self-care (01) ==
LOC: JINFUSION 12:59
PROVIDERS: ATTEND Internal Medicine
DX: I96 Gangrene, not elsewhere classified (principal); I10 Essential (primary) hypertension; E78.5 Hyperlipidemia, unspecified; I25.10 Atherosclerotic heart disease of native coronary artery without angina pectoris; Z95.1 Presence of aortocoronary bypass graft; I50.20 Unspecified systolic (congestive) heart failure; Z86.73 Personal history of transient ischemic attack (TIA), and cerebral infarction without residual deficits; E11.9 Type 2 diabetes mellitus without complications; Z79.4 Long term (current) use of insulin; G62.9 Polyneuropathy, unspecified; E03.9 Hypothyroidism, unspecified; Z79.82 Long term (current) use of aspirin
CPT/HCPCS: 36415; 80053; 85027; 96367

== ENCOUNTER 2017-12-03 10:54 | Day surgery (SDC) | payer MEDICARE, OTHER ==
[2017-12-03] MEDS ORDERED: cefTRIAXone SODIUM 1 GM VIAL ONE (11:23)
[2017-12-03 11:47] VITALS: BP 165/73; PULSE 61; TEMP 98
[2017-12-03] MEDS ORDERED: CEFTRIAXONE 2 GM in DEXTROSE 5%-WATER 100 ML IVPB ONE (12:45)
== END 2017-12-03 12:31 | disposition home or self-care (01) ==
LOC: JINFUSION 10:54
PROVIDERS: ATTEND Internal Medicine
DX: I96 Gangrene, not elsewhere classified (principal); I10 Essential (primary) hypertension; E78.5 Hyperlipidemia, unspecified; I25.10 Atherosclerotic heart disease of native coronary artery without angina pectoris; Z95.1 Presence of aortocoronary bypass graft; I50.20 Unspecified systolic (congestive) heart failure; Z86.73 Personal history of transient ischemic attack (TIA), and cerebral infarction without residual deficits; E11.9 Type 2 diabetes mellitus without complications; Z79.4 Long term (current) use of insulin; E03.9 Hypothyroidism, unspecified; Z79.82 Long term (current) use of aspirin
CPT/HCPCS: 96365

== ENCOUNTER 2017-12-04 08:38 | Day surgery (SDC) | payer OTHER ==
[2017-12-04] MEDS ORDERED: CEFTRIAXONE 2 GM in DEXTROSE 5%-WATER 100 ML IVPB ONE (09:00)
[2017-12-04] MEDS ORDERED: DEXTROSE 5%-WATER 100 ML IVPB ONE (09:18)
[2017-12-04 12:20] VITALS: BP 141/74; PULSE 87; TEMP 97.9
== END 2017-12-04 13:01 | disposition home or self-care (01) ==
LOC: JINFUSION 08:38 → J7W 08:39 → JINFUSION 13:01
PROVIDERS: ATTEND Internal Medicine
DX: I96 Gangrene, not elsewhere classified (principal); I10 Essential (primary) hypertension; E78.5 Hyperlipidemia, unspecified; I25.10 Atherosclerotic heart disease of native coronary artery without angina pectoris; Z95.1 Presence of aortocoronary bypass graft; I50.20 Unspecified systolic (congestive) heart failure; Z86.73 Personal history of transient ischemic attack (TIA), and cerebral infarction without residual deficits; E11.9 Type 2 diabetes mellitus without complications; Z79.4 Long term (current) use of insulin; G62.9 Polyneuropathy, unspecified; E03.9 Hypothyroidism, unspecified; Z79.82 Long term (current) use of aspirin
CPT/HCPCS: 96365

== ENCOUNTER 2017-12-05 08:32 | Day surgery (SDC) | payer OTHER ==
[2017-12-05] MEDS ORDERED: DEXTROSE 5%-WATER 100 ML IVPB ONE (09:10)
[2017-12-05] MEDS ORDERED: CEFTRIAXONE 2 GM in DEXTROSE 5%-WATER - 100 ML IVPB ONE (09:30)
[2017-12-05] MEDS ORDERED: CEFTRIAXONE 2 GM in DEXTROSE 5%-WATER 100 ML IVPB ONE (09:30)
[2017-12-05 11:57] VITALS: BP 127/65; PULSE 68; TEMP 97.9
== END 2017-12-05 09:56 | disposition home or self-care (01) ==
LOC: JINFUSION 08:32 → J7W 08:32 → JINFUSION 09:56
PROVIDERS: ATTEND Internal Medicine
DX: E11.69 Type 2 diabetes mellitus with other specified complication (principal); L02.612 Cutaneous abscess of left foot; M86.9 Osteomyelitis, unspecified; I70.202 Unspecified atherosclerosis of native arteries of extremities, left leg
CPT/HCPCS: 96365

== ENCOUNTER 2017-12-07 10:28 | Day surgery (SDC) | payer OTHER ==
[2017-12-07] MEDS ORDERED: SODIUM CHLORIDE 100 ML IVPB ONE (10:34)
[2017-12-07 11:02] VITALS: TEMP 97.6
[2017-12-07 11:43] VITALS: BP 105/43; PULSE 55
[2017-12-07] MEDS ORDERED: CEFTRIAXONE 2 GM in DEXTROSE 5%-WATER 100 ML IVPB ONE (12:00)
== END 2017-12-07 11:40 | disposition home or self-care (01) ==
LOC: JINFUSION 10:28
PROVIDERS: ATTEND Internal Medicine
DX: I96 Gangrene, not elsewhere classified (principal); I11.0 Hypertensive heart disease with heart failure; I25.10 Atherosclerotic heart disease of native coronary artery without angina pectoris; I50.20 Unspecified systolic (congestive) heart failure; E11.40 Type 2 diabetes mellitus with diabetic neuropathy, unspecified; E03.9 Hypothyroidism, unspecified; E78.5 Hyperlipidemia, unspecified; Z79.4 Long term (current) use of insulin; Z95.1 Presence of aortocoronary bypass graft; Z86.73 Personal history of transient ischemic attack (TIA), and cerebral infarction without residual deficits
CPT/HCPCS: 82962; 96365; G0277

== ENCOUNTER 2017-12-08 08:31 | Day surgery (SDC) | payer OTHER ==
[2017-12-08 10:58] LABS: HEMATOCRIT 38.4 % (32.4-45.2); HEMOGLOBIN 12.6 GM/dL (10.7-15.3); MCH 30.1 pg (25.7-33.7); MCHC 32.9 g/dl (32.0-36.0); MEAN CELL VOLUME 91.4 fl (80-96); MEAN PLT VOLUME 8.7 fl (7.5-11.1); PLATELET COUNT 277 K/MM3 (134-434); WHITE BLOOD COUNT 8.4 K/mm3 (4.0-10.0)
[2017-12-08] MEDS ORDERED: CEFTRIAXONE 2 GM in DEXTROSE 5%-WATER 100 ML IVPB ONE (11:00)
[2017-12-08 11:16] LABS: ALBUMIN 3.5 g/dl (3.4-5.0); ANION GAP 8 (8-16); BILIRUBIN,TOTAL 0.2 mg/dL (0.2-1.0); BLOOD UREA NITROGEN 26 mg/dL (7-18); CALCIUM 9.5 mg/dL (8.5-10.1); CHLORIDE 97 mmol/L (98-107); CO2 29 mmol/L (21-32); CREATININE 1.3 mg/dL (0.55-1.02); GLUCOSE,RANDOM 292 mg/dL (74-106); POTASSIUM 4.7 mmol/L (3.5-5.1); SGOT/AST 14 U/L (15-37); SGPT/ALT 19 U/L (12-78); SODIUM 134 mmol/L (136-145); TOT PROT 7.5 g/dl (6.4-8.2)
[2017-12-08 11:17] LABS: ALK PHOS 137 U/L (45-117)
[2017-12-08 11:18] VITALS: TEMP 98.1
[2017-12-08 11:50] VITALS: BP 137/63; PULSE 55
== END 2017-12-08 11:56 | disposition home or self-care (01) ==
LOC: JINFUSION 08:31
PROVIDERS: ATTEND Internal Medicine
DX: I96 Gangrene, not elsewhere classified (principal); I11.0 Hypertensive heart disease with heart failure; I25.10 Atherosclerotic heart disease of native coronary artery without angina pectoris; I50.20 Unspecified systolic (congestive) heart failure; E11.40 Type 2 diabetes mellitus with diabetic neuropathy, unspecified; E03.9 Hypothyroidism, unspecified; E78.5 Hyperlipidemia, unspecified; Z79.4 Long term (current) use of insulin; Z95.1 Presence of aortocoronary bypass graft; Z86.73 Personal history of transient ischemic attack (TIA), and cerebral infarction without residual deficits
CPT/HCPCS: 36415; 80053; 82962; 85027; 96365; G0277

== ENCOUNTER 2017-12-09 09:26 | Day surgery (SDC) | payer OTHER ==
[2017-12-09] MEDS ORDERED: CEFTRIAXONE 2 GM in DEXTROSE 5%-WATER - 100 ML IVPB ONE (11:30)
[2017-12-09 14:04] VITALS: BP 104/68; PULSE 72; TEMP 97
--- NOTE | 2017-12-09 20:58 | PN ---
Progress Note (short form) - Note Progress Note: FUV left big toe. Daughter present. vsgi, decreased ns, wound left big toe grade 3 improving, 0.6x1x0.7cm grade 3 wound improving Debride to bleeding. Apply puraply to wound. Post op shoe. Awaiting HBO. PTR 1 week. Call if any problems or questions.
== END 2017-12-09 11:56 | disposition home or self-care (01) ==
LOC: JINFUSION 09:26
PROVIDERS: ATTEND Internal Medicine
DX: I96 Gangrene, not elsewhere classified (principal); I11.0 Hypertensive heart disease with heart failure; I25.10 Atherosclerotic heart disease of native coronary artery without angina pectoris; I50.20 Unspecified systolic (congestive) heart failure; E11.40 Type 2 diabetes mellitus with diabetic neuropathy, unspecified; E03.9 Hypothyroidism, unspecified; E78.5 Hyperlipidemia, unspecified; Z79.4 Long term (current) use of insulin; Z95.1 Presence of aortocoronary bypass graft; Z86.73 Personal history of transient ischemic attack (TIA), and cerebral infarction without residual deficits
CPT/HCPCS: 11042; 15275; 82962; 96365; G0277; Q4172

== ENCOUNTER 2017-12-10 08:40 | Day surgery (SDC) | payer OTHER ==
[2017-12-10] MEDS ORDERED: SODIUM CHLORIDE 100 ML IVPB ONE (10:40)
[2017-12-10] MEDS ORDERED: CEFTRIAXONE 2 GM in SODIUM CHLORIDE 100 ML IVPB ONE (11:00)
[2017-12-10 13:56] VITALS: TEMP 97.9
[2017-12-10 14:00] VITALS: BP 119/47; PULSE 54
== END 2017-12-10 11:30 | disposition home or self-care (01) ==
LOC: JINFUSION 08:40
PROVIDERS: ATTEND Internal Medicine
DX: I96 Gangrene, not elsewhere classified (principal); I11.0 Hypertensive heart disease with heart failure; I25.10 Atherosclerotic heart disease of native coronary artery without angina pectoris; I50.20 Unspecified systolic (congestive) heart failure; E11.40 Type 2 diabetes mellitus with diabetic neuropathy, unspecified; E03.9 Hypothyroidism, unspecified; E78.5 Hyperlipidemia, unspecified; Z79.4 Long term (current) use of insulin; Z95.1 Presence of aortocoronary bypass graft; Z86.73 Personal history of transient ischemic attack (TIA), and cerebral infarction without residual deficits
CPT/HCPCS: 82962; 96365; G0277

== ENCOUNTER 2017-12-11 12:56 | Day surgery (SDC) | payer OTHER ==
[2017-12-11] MEDS ORDERED: DEXTROSE 5%-WATER 100 ML IVPB ONE (13:22)
[2017-12-11] MEDS ORDERED: CEFTRIAXONE 2 GM in DEXTROSE 5%-WATER 100 ML IVPB ONE (14:00)
[2017-12-11 14:26] VITALS: BP 112/78; PULSE 65; TEMP 98.3
== END 2017-12-11 14:26 | disposition home or self-care (01) ==
LOC: JINFUSION 12:56 → J7W 12:57 → JINFUSION 14:26
PROVIDERS: ATTEND Internal Medicine
DX: I96 Gangrene, not elsewhere classified (principal); I11.0 Hypertensive heart disease with heart failure; I25.10 Atherosclerotic heart disease of native coronary artery without angina pectoris; I50.20 Unspecified systolic (congestive) heart failure; E11.40 Type 2 diabetes mellitus with diabetic neuropathy, unspecified; E03.9 Hypothyroidism, unspecified; E78.5 Hyperlipidemia, unspecified; Z79.4 Long term (current) use of insulin; Z95.1 Presence of aortocoronary bypass graft; Z86.73 Personal history of transient ischemic attack (TIA), and cerebral infarction without residual deficits
CPT/HCPCS: 96365; 96366

== ENCOUNTER 2017-12-12 13:43 | Day surgery (SDC) | payer OTHER ==
[2017-12-12] MEDS ORDERED: DEXTROSE 5%-WATER 100 ML IVPB ONE (14:19)
[2017-12-12] MEDS ORDERED: CEFTRIAXONE 2 GM in DEXTROSE 5%-WATER 100 ML IVPB ONE (14:30)
[2017-12-12 15:10] VITALS: BP 119/70; PULSE 64; TEMP 98.3
== END 2017-12-12 15:10 | disposition home or self-care (01) ==
LOC: JINFUSION 13:43 → J7W 13:44 → JINFUSION 15:10
PROVIDERS: ATTEND Internal Medicine
DX: E11.69 Type 2 diabetes mellitus with other specified complication (principal); L02.612 Cutaneous abscess of left foot; M86.9 Osteomyelitis, unspecified; I70.202 Unspecified atherosclerosis of native arteries of extremities, left leg
CPT/HCPCS: 96365; 96366

== ENCOUNTER 2017-12-13 09:19 | Day surgery (SDC) | payer OTHER ==
[~2017-12-13 09:19] MED LIST: CEFTRIAXONE 2 GM in SODIUM CHLORIDE 100 ML IVPB ONE
[2017-12-13 10:42] LABS: HEMATOCRIT 35.7 % (32.4-45.2); HEMOGLOBIN 11.9 GM/dL (10.7-15.3); MCH 30.4 pg (25.7-33.7); MCHC 33.3 g/dl (32.0-36.0); MEAN CELL VOLUME 91.2 fl (80-96); MEAN PLT VOLUME 8.1 fl (7.5-11.1); PLATELET COUNT 235 K/MM3 (134-434); RBC 3.91 M/mm3 (3.60-5.2); RDW 14.1 % (11.6-15.6); WHITE BLOOD COUNT 5.7 K/mm3 (4.0-10.0)
[2017-12-13 11:03] LABS: ALBUMIN 3.3 g/dl (3.4-5.0); ANION GAP 7 (8-16); BILIRUBIN,TOTAL 0.3 mg/dL (0.2-1.0); BLOOD UREA NITROGEN 20 mg/dL (7-18); CALCIUM 8.9 mg/dL (8.5-10.1); CHLORIDE 98 mmol/L (98-107); CO2 30 mmol/L (21-32); CREATININE 1.1 mg/dL (0.55-1.02); GLUCOSE,RANDOM 69 mg/dL (74-106); POTASSIUM 4.5 mmol/L (3.5-5.1); SGOT/AST 16 U/L (15-37); SGPT/ALT 20 U/L (12-78); SODIUM 135 mmol/L (136-145); TOT PROT 7.3 g/dl (6.4-8.2)
[2017-12-13 11:04] LABS: ALK PHOS 121 U/L (45-117)
[2017-12-13 13:28] VITALS: BP 140/61; PULSE 55; TEMP 98.1
== END 2017-12-13 11:40 | disposition home or self-care (01) ==
LOC: JINFUSION 09:19
PROVIDERS: ATTEND Internal Medicine
DX: E11.69 Type 2 diabetes mellitus with other specified complication (principal); L02.612 Cutaneous abscess of left foot; M86.9 Osteomyelitis, unspecified; I70.202 Unspecified atherosclerosis of native arteries of extremities, left leg
CPT/HCPCS: 36415; 80053; 82962; 85027; 96365; 96366; 96367; G0277

== ENCOUNTER 2017-12-14 09:34 | Day surgery (SDC) | payer OTHER ==
[2017-12-14] MEDS ORDERED: CEFTRIAXONE 2 GM in DEXTROSE 5%-WATER 100 ML IVPB ONE (10:45)
[2017-12-14 11:32] VITALS: TEMP 98.1
[2017-12-14 12:10] VITALS: BP 140/57; PULSE 58
== END 2017-12-14 12:11 | disposition home or self-care (01) ==
LOC: JINFUSION 09:34
PROVIDERS: ATTEND Internal Medicine
DX: E11.69 Type 2 diabetes mellitus with other specified complication (principal); L02.612 Cutaneous abscess of left foot; M86.9 Osteomyelitis, unspecified; I70.202 Unspecified atherosclerosis of native arteries of extremities, left leg
CPT/HCPCS: 82962; 96365; G0277

== ENCOUNTER 2017-12-15 09:19 | Day surgery (SDC) | payer OTHER ==
[2017-12-15 12:19] VITALS: TEMP 98.1
[2017-12-15 12:20] VITALS: BP 135/50; PULSE 53
== END 2017-12-15 12:05 | disposition home or self-care (01) ==
LOC: JINFUSION 09:19
PROVIDERS: ATTEND Internal Medicine
DX: E11.69 Type 2 diabetes mellitus with other specified complication (principal); L02.612 Cutaneous abscess of left foot; M86.9 Osteomyelitis, unspecified; I70.202 Unspecified atherosclerosis of native arteries of extremities, left leg; E11.51 Type 2 diabetes mellitus with diabetic peripheral angiopathy without gangrene; L97.522 Non-pressure chronic ulcer of other part of left foot with fat layer exposed; Z79.4 Long term (current) use of insulin
CPT/HCPCS: 82962; 96365; G0277

== ENCOUNTER 2017-12-16 09:32 | Day surgery (SDC) | payer OTHER ==
[~2017-12-16 09:32] MED LIST changes: +CEFTRIAXONE 2 GM in DEXTROSE 5%-WATER 100 ML IVPB ONE; -CEFTRIAXONE 2 GM in SODIUM CHLORIDE 100 ML IVPB ONE
[2017-12-16 11:50] VITALS: BP 120/42; PULSE 56; TEMP 98
--- NOTE | 2017-12-16 22:28 | PN ---
Progress Note (short form) - Note Progress Note: FUV left big toe. Daughter present. Coughing alot today. Has a little wheez. vsgi, decreased ns, wound left big toe grade 3 improving, 0.6x0.5x0.3cm grade 3 wound improving Debride to bleeding. Apply puraply to wound. Post op shoe. Donig HBO. Evaluate respiratory situation referred to xray chest and ED. Admitted by medicine. PTR 1 week. Call if any problems or questions. will follow inpatient.
== END 2017-12-16 11:51 | disposition home or self-care (01) ==
LOC: JINFUSION 09:32
PROVIDERS: ATTEND Internal Medicine
DX: E11.69 Type 2 diabetes mellitus with other specified complication (principal); L02.612 Cutaneous abscess of left foot; M86.9 Osteomyelitis, unspecified; I70.202 Unspecified atherosclerosis of native arteries of extremities, left leg
CPT/HCPCS: 11042; 15275; 71046-TC-FY; 73630-TC-LT; 82962; 96365; G0277; Q4172

== ENCOUNTER 2017-12-16 15:31 | Inpatient (IN) | payer MEDICARE, OTHER ==
--- NOTE | 2017-12-16 16:18 | PDOC ---
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 No fever or chills. No chest pain. No nausea, vomiting, or diarrhea. - Physicial Exam PE: 12/16/17 17:41 Constitutional: Awake and alert. No acute distress. Head: Normocephalic. Atraumatic Eyes: PERRL. EOMI. Conjunctivae are not pale. ENT: Mucous membranes are moist and intact. Posterior pharynx without exudates or erythema. Uvula midline. Neck: Supple. Full ROM. No lymphadenopathy. +Stridor. Cardiovascular: Regular rate. Regular rhythm. S1, S2 regular. Distal pulses are 2+ and symmetric. Pulmonary/Chest: +Wheezing diffusely. Coughing throughout exam. Abdominal: Soft and non-distended. There is no tenderness. No rebound, guarding or rigidity. No organomegaly. No palpable masses. Good bowel sounds. Back: No CVA tenderness. Musculoskeletal: LLE: Wrapped with dressing intact distally. All other extremities: No edema. No cyanosis. No clubbing. Full range of motion in all extremities. Nocalf tenderness. Radial/pedal pulses are intact and 2+ bilaterally Skin: Skin is warm and dry. No petechiae. No purpura. Neurological: Alert and oriented to person, place, and time. Cranial nerves II -XII are grossly intact. Normal speech. Strength is grossly symmetric. No sensory deficits. Gait deferred. Psychiatric: Good eye contact. Normal interaction, affect and behavior. Documentation prepared by Amelia Parker, acting as medical transcription supervisor for Shefali Ledesma DO. <Amelia Parker - Last Filed: 12/16/17 17:39> - Resident Resident Name: Tone Butler - ED Attending Attestation I have performed the following: I have examined & evaluated the patient, The case was reviewed & discussed with the resident, I agree w/resident's findings & plan, Exceptions are as noted - Critical Care Time Total Critical Care Time: 30 Critical Care Statement: The care of this patient involved high complexity decision making to prevent further life threatening deterioration of the patient 's condition and/or to evaluate & treat vital organ system(s) failure or risk of failure. - Medical Decision Making 12/16/17 16:18 I, Dr. Shefali Ledesma, DO, attest that this document has been prepared under my direction and personally reviewed by me in its entirety. I further attest, that it accurately reflects all work, treatment, procedures and medical decision -making performed by me. 12/16/17 16:41 a/p: 82yo female with cough/wheezing/sob -currently on rocephin iv 2g daily for gangrene of toe -dressing changed today -dressing to LLE - dry and intact -received 2g rocephin captain assistant -wheezing and mild stridor on exam -suspect URI with reactive airway disease -will send labs, ekg, cxr performed [employer] in ED -cxr clear -also with cp -will need to stay in obs for further eval 12/16/17 19:57 pt with elevated BNP - will give lasix also give azithromycin for uri nebs given pt will need admit for mild chf exac with bronchitis <Shefali Ledesma - Last Filed: 12/16/17 19:58> Heart Score/ECG Review - ECG Intrepretation Comment:: 12/16/17 17:06 sinus cathie at 59, nl axis, q waves anteriorally that are age indeterminate, t wave inversions I/aVL <Shefali Ledesma - Last Filed: 12/16/17 19:58>
[2017-12-16] MEDS ORDERED: ALBUTEROL SO4 2.5/IPRATROPIUM 0.5 INH SOL 3 ML VIAL.NEB. NEB ONE ×2 (16:22→16:38)
[2017-12-16] MEDS ORDERED: DEXAMETHASONE SOD PHOSPHATE 10 MG/1 ML VIAL IVPUSH ONE (16:39)
[2017-12-16 16:45] LABS: BASO % 1.5 % (0-2.0); EOS % 2.4 % (0-4.5); HEMATOCRIT 33.9 % (32.4-45.2); HEMOGLOBIN 11.5 GM/dL (10.7-15.3); LYMPH % 35.4 % (8-40); MCH 30.5 pg (25.7-33.7); MEAN CELL VOLUME 89.7 fl (80-96); MEAN PLT VOLUME 8.4 fl (7.5-11.1); MONO % 11.9 % (3.8-10.2); NEUT % 48.8 % (42.8-82.8); PLATELET COUNT 244 K/MM3 (134-434); RBC 3.78 M/mm3 (3.60-5.2); RDW 13.6 % (11.6-15.6); WHITE BLOOD COUNT 8.5 K/mm3 (4.0-10.0)
[2017-12-16] MEDS ORDERED: DEXAMETHASONE SOD PHOSPHATE 10 MG/1 ML VIAL ONE (16:50)
[2017-12-16 17:00] LABS: INR 1.1 (0.82-1.09); PROTHROMBIN TIME (PATIENT) 12.4 SEC (9.7-13.0)
[2017-12-16 17:09] LABS: ALBUMIN 3.3 g/dl (3.4-5.0); ANION GAP 8 (8-16); BILIRUBIN,TOTAL 0.2 mg/dL (0.2-1.0); BLOOD UREA NITROGEN 15 mg/dL (7-18); CALCIUM 8.8 mg/dL (8.5-10.1); CHLORIDE 94 mmol/L (98-107); CO2 29 mmol/L (21-32); CREATININE 1.1 mg/dL (0.55-1.02); GLUCOSE,RANDOM 208 mg/dL (74-106); POTASSIUM 4.6 mmol/L (3.5-5.1); SGOT/AST 13 U/L (15-37); SGPT/ALT 18 U/L (12-78); SODIUM 131 mmol/L (136-145); TOT PROT 7.2 g/dl (6.4-8.2)
[2017-12-16 17:13] LABS: ALK PHOS 126 U/L (45-117); N-TERMINAL BNP 5330.82 pg/ml (5-450)
--- NOTE | 2017-12-16 17:50 | PDOC ---
History of Present Illness - General Chief Complaint: Respiratory Stated Complaint: RESPIRATORY PROBLEMS Time Seen by Provider: 12/16/17 15:52 History Source: Patient Exam Limitations: No Limitations - History of Present Illness Initial Comments: 12/16/17 17:48 Patient is an 82F with history of L toe gangrene with osteomyelitis (has PICC line, been treated with vanc, zosyn and ceftriaxone. Currently on ceftriaxone. Also receiving hyperbarics), DM, IDDM, hypothyoidism, CABG, HTN, HLD here today complaining of cough for the past three days. Patient reports trying robitussin to treat cough. Endorses associated chills. Denies fevers. Endorses chest pain and worsening shortness of breath. Denies history of blood clots. Past History - Past Medical History Allergies/Adverse Reactions: Allergies Allergy/AdvReac Type Severity Reaction Status Date / Time No Known Drug Allergies Allergy Verified 12/16/17 17:24 Home Medications: Ambulatory Orders Aspirin [ASA -] 81 mg PO DAILY 08/20/17 Carvedilol [Coreg -] 12.5 mg PO BID 08/20/17 Levothyroxine [Synthroid -] 88 mcg PO DAILY 08/20/17 Omeprazole 20 mg PO DAILY 08/20/17 Ranolazine [Ranexa] 500 mg PO BID 08/20/17 Gabapentin [Neurontin -] 300 mg PO TID #90 capsule 08/31/17 Ramipril 2.5 mg PO DAILY 09/20/17 Atorvastatin Ca [Lipitor] 40 mg PO HS #30 tablet 09/21/17 Polyethylene Glycol 3350 [Miralax 119 gm Btl -] 17 gm PO BID bottle 09/21/17 Insulin Sliding Scale [Novolog Vial Sliding Scale -] See Protocol SQ TIDAC #5 vial 09/22/17 Acetaminophen [Pain Relief] 500 mg PO ASDIR 11/22/17 Insulin Detemir [Levemir Flextouch] 0 unit SQ HS 11/22/17 Repaglinide [Prandin -] 1 mg PO DAILY 11/22/17 Anemia: No Asthma: No Cancer: No Cardiac Disorders: Yes CVA: Yes COPD: No CHF: Yes DVT: No Dementia: No Diabetes: Yes GI Disorders: Yes (Ulcers) Disorders: (ulcers) HTN: Yes Hypercholesterolemia: Yes Liver Disease: No Seizures: No Thyroid Disease: No - Surgical History Abdominal Surgery: No Appendectomy: No Cardiac Surgery: Yes (triple bipass) Cholecystectomy: No Lung Surgery: No Neurologic Surgery: No Orthopedic Surgery: Yes (RT ELBOW SX) - Immunization History Immunization Up to Date: No - Suicide/Smoking/Psychosocial Hx Smoking Status: No Smoking History: Unknown if ever smoked Have you smoked in the past 12 months: No Number of Cigarettes Smoked Daily: 0 Hx Alcohol Use: No Drug/Substance Use Hx: No Substance Use Type: None Hx Substance Use Treatment: No Review of Systems - Review of Systems Comments:: 12/16/17 17:59 GENERAL/CONSTITUTIONAL: No fever. +chills. No weakness. HEAD, EYES, EARS, NOSE AND THROAT: No change in vision. No sore throat. CARDIOVASCULAR: + chest pain and shortness of breath RESPIRATORY: +cough,. No wheezing, or hemoptysis. GASTROINTESTINAL: No nausea, vomiting, diarrhea or constipation. GENITOURINARY: No dysuria, frequency, or change in urination. MUSCULOSKELETAL: No joint or muscle swelling or pain. No neck or back pain. SKIN: No rash NEUROLOGIC: No headache, vertigo, loss of consciousness, or change in strength/ sensation. ENDOCRINE: No increased thirst. No abnormal weight change HEMATOLOGIC/LYMPHATIC: No anemia, easy bleeding, or history of blood clots. ALLERGIC/IMMUNOLOGIC: No hives or skin allergy. *Physical Exam - Vital Signs Last Vital Signs Temp Pulse Resp BP Pulse Ox 97.5 F L 64 18 116/56 98 12/16/17 15:41 12/16/17 16:25 12/16/17 15:41 12/16/17 15:41 12/16/17 16:25 - Physical Exam Comments: 12/16/17 18:00 GENERAL: Awake, alert, and fully oriented, repeated coughing HEAD: No signs of trauma, normocephalic, atraumatic EYES: PERRLA, EOMI, sclera anicteric, conjunctiva clear ENT: Auricles normal inspection, hearing grossly normal, nares patent, oropharynx clear without exudates. Moist mucosa NECK: Normal ROM, supple, no lymphadenopathy, JVD, or masses LUNGS: Coughing, diffuse wheezing. HEART: Regular rate and rhythm, normal S1 and S2, no murmurs, rubs or gallops, peripheral pulses normal and equal bilaterally. ABDOMEN: Soft, nontender, normoactive bowel sounds. No guarding, no rebound. No masses EXTREMITIES: 1+ edema, wrapped left foot NEUROLOGICAL: Cranial nerves II through XII grossly intact. Normal speech, no focal sensorimotor deficits SKIN: Warm, Dry, normal turgor, no rashes or lesions noted. ED Treatment Course - LABORATORY CBC & Chemistry Diagram: 12/16/17 16:24 12/16/17 16:24 - ADDITIONAL ORDERS Additional order review: Laboratory Results 12/16/17 12/16/17 12/16/17 16:24 16:24 16:24 PT with INR 12.40 INR 1.10 Sodium 131 L Potassium 4.6 Chloride 94 L Carbon Dioxide 29 Anion Gap 8 BUN 15 Creatinine 1.1 H Creat Clearance w eGFR 47.55 Random Glucose 208 H Lactic Acid 1.6 Calcium 8.8 Magnesium 2.0 Total Bilirubin 0.2 AST 13 L ALT 18 Alkaline Phosphatase 126 H Creatine Kinase 63 Troponin I < 0.02 B-Natriuretic Peptide 5330.82 H Total Protein 7.2 Albumin 3.3 L 12/16/17 16:24 RBC 3.78 MCV 89.7 MCHC 34.0 RDW 13.6 MPV 8.4 Neutrophils % 48.8 Lymphocytes % 35.4 Monocytes % 11.9 H Eosinophils % 2.4 Basophils % 1.5 - Medications Given in the ED: ED Medications Discontinued Medications Generic Name Dose Route Start Last Admin Trade Name Freq PRN Reason Stop Dose Admin Albuterol/Ipratropium 1 amp 12/16/17 16:22 12/16/17 16:41 Duoneb - NEB 12/16/17 16:23 1 amp ONCE ONE Administration Dexamethasone Sodium Phosphate 10 mg 12/16/17 16:39 12/16/17 16:54 Decadron Injection - IVPUSH 12/16/17 16:40 10 mg ONCE ONE Administration Medical Decision Making - Medical Decision Making 12/16/17 18:01 Patient is 82F with history of history of L toe gangrene with osteomyelitis ( has PICC line, been treated with vanc, zosyn and ceftriaxone. Currently on ceftriaxone. Also receiving hyperbarics), DM, IDDM, hypothyoidism, CABG, HTN, HLD here today complaining of cough. Vital signs stable and normal. DDx includes , but is not limited to: CHF, pneumonia, bronchitis. Will give duonebs for wheezing. EKG shows sinus bradycardia with rate of 59. No st elevatiosn. ST depressions in V4, V5, V6. T wave inversions in I, aVL, V2. EKG done on 11/26 shows similar t wave inversions, but no lateral st depressions. CXR done as outpatient, but done today, shows mild CHF, no infiltrate. Given azithromycin, guanfesin, and lasix. Will admit to [facility] for EKG changes and chest pain in medically fragile patient. 12/16/17 18:10 Laboratory Tests 12/16/17 12/16/17 16:24 16:24 WBC 8.5 Hgb 11.5 Plt Count 244 Sodium 131 L BUN 15 Creatinine 1.1 H Creat Clearance w eGFR 47.55 Troponin I < 0.02 B-Natriuretic Peptide 5330.82 H CBC normal. Hyponatremic, BNP elevated, troponin undetectable. *DC/Admit/Observation/Transfer Diagnosis at time of Disposition: CHF exacerbation - Discharge Dispostion Condition at time of disposition: Stable Decision to Admit order: Yes - Referrals - Patient Instructions - Post Discharge Activity
[2017-12-16] MEDS ORDERED: FUROSEMIDE 40 MG/4 ML INJECTABLE VIAL IVPUSH ONE (17:54)
[2017-12-16] MEDS ORDERED: AZITHROMYCIN IVPB 500 MG in DEXTROSE 5%-WATER - 250 ML IVPB ONE (17:55)
[2017-12-16] MEDS ORDERED: AZITHROMYCIN IVPB 250 ML IVPB ONE (17:57)
[2017-12-16] MEDS ORDERED: FUROSEMIDE 40 MG/4 ML INJECTABLE VIAL ONE ×2 (17:57→21:56)
--- NOTE | 2017-12-16 21:02 | PN ---
Teaching Attending Note ATTENDING PHYSICIAN STATEMENT I saw and evaluated the patient. I reviewed the resident's note and discussed the case with the resident. I agree with the resident's findings and plan as documented. SUBJECTIVE: OBJECTIVE: CBCD WBC 8.5 K/mm3 (4.0-10.0) 12/16/17 16:24 RBC 3.78 M/mm3 (3.60-5.2) 12/16/17 16:24 Hgb 11.5 GM/dL (10.7-15.3) 12/16/17 16:24 Hct 33.9 % (32.4-45.2) 12/16/17 16:24 MCV 89.7 fl (80-96) 12/16/17 16:24 MCHC 34.0 g/dl (32.0-36.0) 12/16/17 16:24 RDW 13.6 % (11.6-15.6) 12/16/17 16:24 Plt Count 244 K/MM3 (134-434) 12/16/17 16:24 MPV 8.4 fl (7.5-11.1) 12/16/17 16:24 CMP Sodium 131 mmol/L (136-145) L 12/16/17 16:24 Potassium 4.6 mmol/L (3.5-5.1) 12/16/17 16:24 Chloride 94 mmol/L (98-107) L 12/16/17 16:24 Carbon Dioxide 29 mmol/L (21-32) 12/16/17 16:24 Anion Gap 8 (8-16) 12/16/17 16:24 BUN 15 mg/dL (7-18) 12/16/17 16:24 Creatinine 1.1 mg/dL (0.55-1.02) H 12/16/17 16:24 Creat Clearance w eGFR 47.55 (>60) 12/16/17 16:24 Random Glucose 208 mg/dL (74-106) H 12/16/17 16:24 Calcium 8.8 mg/dL (8.5-10.1) 12/16/17 16:24 Total Bilirubin 0.2 mg/dL (0.2-1.0) 12/16/17 16:24 AST 13 U/L (15-37) L 12/16/17 16:24 ALT 18 U/L (12-78) 12/16/17 16:24 Alkaline Phosphatase 126 U/L (45-117) H 12/16/17 16:24 Total Protein 7.2 g/dl (6.4-8.2) 12/16/17 16:24 Albumin 3.3 g/dl (3.4-5.0) L 12/16/17 16:24 CARDIAC ENZYMES Creatine Kinase 63 IU/L (26-192) 12/16/17 16:24 Troponin I < 0.02 ng/ml (0.00-0.05) 12/16/17 16:24 Troponin, BNP 12/16/17 16:24 Troponin I < 0.02 B-Natriuretic Peptide 5330.82 H ASSESSMENT AND PLAN: Acute systolic CHF Exacerbation Lasix 40mg daily Monitor I&Os Daily weights ECHO Continue home medications Cardiology consult for evaluation- Dr Stone No indication for antibiotics
[2017-12-16] MEDS: FUROSEMIDE 40 MG/4 ML INJECTABLE VIAL IVPUSH SCH (22:05)
[2017-12-16] MEDS: guaiFENesin 600 MG TABLET.ER (FP) PO SCH (22:39)
[2017-12-16 23:29] LABS: URINE APPEARANCE CLEAR; URINE BILIRUBIN NEGATIVE (<2.0 mg/dL); URINE COLOR COLORLESS; URINE GLUCOSE (UA) 3+ (NEGATIVE); URINE KETONE NEGATIVE (NEGATIVE); URINE LEUK ESTERASE NEGATIVE (NEGATIVE); URINE NITRITE NEGATIVE (NEGATIVE); URINE PROTEIN NEGATIVE (NEGATIVE); URINE UROBILINOGEN NEGATIVE mg/dL (0.2-1.0)
[2017-12-17] MEDS: GABAPENTIN 300 MG CAPSULE (FP) PO SCH ×4 (01:54→21:48)
--- NOTE | 2017-12-17 04:56 | HP ---
CHIEF COMPLAINT: PCP: HISTORY OF PRESENT ILLNESS: Pt is english speaking. accompanied by daughter 82F with PMH of L toe gangrene with osteomyelitis (has PICC line, been tx w/ vanc, zosyn and CTX. Currently on ceftriaxone. Also receiving hyperbarics), IDDM , hypothyoidism, CABG, HTN, HLD, p/w productive cough (white phlegm), SOB, CP due to cough x4d. Patient reports trying robitussin to treat cough which didn't help. SOB is worsened w/ exertion. CP is sharp, sternal, and is non-exertional/ present w/ coughing. Denies any fevers, chills, sweats, hemoptysis, abd pain, hematuria, n/v/d, blood in stools, recent travel, sick contacts, changes in diet, limb swelling. Of note, pt has been having dysuria for the past week. 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 donahue bone bx + kleb, strep, staph PAST SURGICAL HISTORY: Social History: Smoking: denies Alcohol: denies Drugs: denies Family History: dad DM Allergies No Known Drug Allergies Allergy (Verified 12/16/17 17:24) HOME MEDICATIONS: Home Medications Medication Instructions Recorded Aspirin [ASA -] 81 mg PO DAILY 08/20/17 Carvedilol [Coreg -] 12.5 mg PO BID 08/20/17 Levothyroxine [Synthroid -] 88 mcg PO DAILY 08/20/17 Omeprazole 20 mg PO DAILY 08/20/17 Ranolazine [Ranexa] 500 mg PO BID 08/20/17 Gabapentin [Neurontin -] 300 mg PO TID #90 capsule 08/31/17 Ramipril 2.5 mg PO DAILY 09/20/17 Atorvastatin Ca [Lipitor] 40 mg PO HS #30 tablet 09/21/17 Polyethylene Glycol 3350 [Miralax 17 gm PO BID bottle 09/21/17 119 gm Btl -] Insulin Sliding Scale [Novolog See Protocol SQ TIDAC #5 vial 09/22/17 Vial Sliding Scale -] Acetaminophen [Pain Relief] 500 mg PO ASDIR 11/22/17 Insulin Detemir [Levemir Flextouch] 35 unit SQ HS 11/22/17 Repaglinide [Prandin -] 1 mg PO DAILY 11/22/17 REVIEW OF SYSTEMS reviewed in hpi PHYSICAL EXAMINATION Vital Signs - 24 hr 12/16/17 12/16/17 12/16/17 15:41 16:25 18:35 Temperature 97.5 F L Pulse Rate 60 64 Pulse Rate [ 66 Right] Respiratory 18 18 Rate Blood Pressure 116/56 Blood Pressure 169/74 [Arm] O2 Sat by Pulse 98 95 Oximetry (%) 12/16/17 12/17/17 22:25 03:40 Temperature 97.7 F 98.1 F Pulse Rate 72 73 Pulse Rate [ Right] Respiratory 20 20 Rate Blood Pressure 161/87 173/78 Blood Pressure [Arm] O2 Sat by Pulse 96 Oximetry (%) GENERAL: Awake, alert, and fully oriented, in no acute distress. HEAD: Normal with no signs of trauma. EYES: Pupils equal, round and reactive to light, extraocular movements intact, sclera anicteric, conjunctiva clear. No lid lag. EARS, NOSE, THROAT: nares patent, oropharynx clear without exudates. Moist mucous membranes. NECK: Normal range of motion, supple without lymphadenopathy, JVD, or masses. LUNGS: crackles b/l HEART: +S2 splitting . TTP on sternum Regular rate and rhythm, normal S1. without murmur, rub or gallop. ABDOMEN: Echymosis in RLQ, site of injection for insulin Soft, nontender, not distended, normoactive bowel sounds, no guarding, no rebound, no masses. No hepatomegaly or splenomegaly. MUSCULOSKELETAL: Normal range of motion at all joints. No bony deformities or tenderness. UPPER EXTREMITIES: 2+ pulses, warm, well-perfused. No cyanosis. No clubbing. No peripheral edema. LOWER EXTREMITIES: 2+ pulses, warm, well-perfused. No calf tenderness. No peripheral edema or swelling. L foot wrapped in bandage, no drainage noted. no ulcers noted on R foot NEUROLOGICAL: Cranial nerves II-XII intact. Normal speech. SKIN: Warm, dry, normal turgor, no rashes or lesions noted, normal capillary refill. Laboratory Results - last 24 hr 12/16/17 12/16/17 12/16/17 16:24 16:24 16:24 WBC 8.5 RBC 3.78 Hgb 11.5 Hct 33.9 MCV 89.7 MCH 30.5 MCHC 34.0 RDW 13.6 Plt Count 244 MPV 8.4 Absolute Neuts (auto) 4.1 Neutrophils % 48.8 Lymphocytes % 35.4 Monocytes % 11.9 H Eosinophils % 2.4 Basophils % 1.5 Nucleated RBC % 0 PT with INR 12.40 INR 1.10 Sodium 131 L Potassium 4.6 Chloride 94 L Carbon Dioxide 29 Anion Gap 8 BUN 15 Creatinine 1.1 H Creat Clearance w eGFR 47.55 Random Glucose 208 H Lactic Acid Calcium 8.8 Magnesium 2.0 Total Bilirubin 0.2 AST 13 L ALT 18 Alkaline Phosphatase 126 H Creatine Kinase 63 Troponin I < 0.02 B-Natriuretic Peptide 5330.82 H Total Protein 7.2 Albumin 3.3 L Urine Color Urine Appearance Urine pH Ur Specific [place] Urine Protein Urine Glucose (UA) Urine Ketones Urine Blood Urine Nitrite Urine Bilirubin Urine Urobilinogen Ur Leukocyte Esterase 12/16/17 12/16/17 16:24 22:15 WBC RBC Hgb Hct MCV MCH MCHC RDW Plt Count MPV Absolute Neuts (auto) Neutrophils % Lymphocytes % Monocytes % Eosinophils % Basophils % Nucleated RBC % PT with INR INR Sodium Potassium Chloride Carbon Dioxide Anion Gap BUN Creatinine Creat Clearance w eGFR Random Glucose Lactic Acid 1.6 Calcium Magnesium Total Bilirubin AST ALT Alkaline Phosphatase Creatine Kinase Troponin I B-Natriuretic Peptide Total Protein Albumin Urine Color Colorless Urine Appearance Clear Urine pH 6.0 Ur Specific [place] 1.003 Urine Protein Negative Urine Glucose (UA) 3+ H Urine Ketones Negative Urine Blood Negative Urine Nitrite Negative Urine Bilirubin Negative Urine Urobilinogen Negative Ur Leukocyte Esterase Negative ASSESSMENT/PLAN: 82F with PMH of L toe gangrene with osteomyelitis (has PICC line, been tx w/ vanc, zosyn and CTX. Currently on CTX w/ hyperbarics), IDDM, hypothyoidism, CABG , HTN, HLD, p/w productive cough (white phlegm), SOB, CP due to cough x4d. Acute systolic CHF exacerbation - Precipitating factor is unclear. Supporting factors include white sputum cough w/ crackles on lung exam and elevated BNP. Absent JVD and LE edema may suggest that exacerbation is mild or early in its process. Less likely to be PNA/infx, Pt is afebrile w/ no white count, and CXR remains largely unchanged from prior 09/2017, although might show some congestive changes. Pt's associated CP is unlikely to be cardiac in nature, pt has it when coughing and PE was positive for sternal rub, trop neg, no acute EKG changes -Lasix 40mg qd and monitor for urine output -daily weights -monitor I/Os -cardiology consult for med optimization -procalcitonin, if elevated may be suggestive of infx etiology/PNA -Echo -no indication for abx at this time CKD - Cr 1.1 which is her baseline, likely etiology is unctl DM. UA +3 protein w / hypoalbunemia -will hold IV fluids for now as pt has hx of CHF and does not require aggressive resuscitation Obesity - -Will provide necessary assistance, counseling and positive reinforcement to facilitate weight loss. -Consult [employer]. DM - -c/w home dose levemir 35U HS -implement sliding scale -check Hgb A1c to asses how well ctl she is HCM -c/w home dose meds for HTN, CHF, hypothyoidism, HLD #FEN -no IVF at this time -replete lytes as needed -low sodium/fat/diabetic diet #DVTppx SQH 5000U tid #Dispo -admit to tele -Full code case discussed with attending, Dr. Jamey Cormier MD PGY1 Visit type - Emergency Visit Emergency Visit: Yes ED Registration Date: 12/16/17 Care time: The patient presented to the Emergency Department on the above date and was hospitalized for further evaluation of their emergent condition. - New Patient This patient is new to me today: Yes Date on this admission: 12/17/17 - Critical Care Critical Care patient: No Hospitalist Screening - Colonoscopy Questionnaire Colonoscopy Questionnaire: Colonoscopy Questionnaire - Patient: 50 - 75 years old and never had a screening colonoscopy: Unknown History of colon or rectal polyps, or CA: Unknown History of IBD, Crohn's disease or UC: Unknown History of abdominal radiation therapy as a child: Unknown - Relative: 1 with colon or rectal CA, or polyps at age 60 or younger: Unknown Colon or rectal CA diagnosed at age 45 or younger: Unknown Multiple relatives with colon or rectal CA: Unknown - Outcome: Screening Result: Negative Screen
[2017-12-17] MEDS: INSULIN SLIDING SCALE (NOVOLOG) 1 VIAL SQ SCH ×6 (05:51→22:10)
[2017-12-17] MEDS ORDERED: GABAPENTIN 300 MG CAPSULE (FP) PO SCH (06:00)
[2017-12-17] MEDS: HEPARIN NA (PORCINE) 5,000 UNITS/ML 1ML VIAL SQ SCH ×3 (06:29→21:48)
[2017-12-17] MEDS: LEVOTHYROXINE NA 88 MCG TABLET (FP) PO SCH (06:29)
[2017-12-17 06:34] LABS: BASO % 0.2 % (0-2.0); HEMATOCRIT 36.9 % (32.4-45.2); HEMOGLOBIN 12.6 GM/dL (10.7-15.3); LYMPH % 19.1 % (8-40); MCH 30.5 pg (25.7-33.7); MCHC 34.2 g/dl (32.0-36.0); MEAN CELL VOLUME 89.3 fl (80-96); MEAN PLT VOLUME 8.7 fl (7.5-11.1); NEUT % 79.7 % (42.8-82.8); PLATELET COUNT 272 K/MM3 (134-434); RBC 4.14 M/mm3 (3.60-5.2); RDW 13.7 % (11.6-15.6); WHITE BLOOD COUNT 8.1 K/mm3 (4.0-10.0)
[2017-12-17 06:51] LABS: ALBUMIN 3.6 g/dl (3.4-5.0); ANION GAP 11 (8-16); BILIRUBIN,TOTAL 0.4 mg/dL (0.2-1.0); BLOOD UREA NITROGEN 22 mg/dL (7-18); CALCIUM 9.4 mg/dL (8.5-10.1); CHLORIDE 87 mmol/L (98-107); CO2 29 mmol/L (21-32); CREATININE 1.3 mg/dL (0.55-1.02); PHOSPHOROUS 4.3 mg/dL (2.5-4.9); SGPT/ALT 20 U/L (12-78); SODIUM 127 mmol/L (136-145); TOT PROT 8.1 g/dl (6.4-8.2)
[2017-12-17 06:52] LABS: ALK PHOS 138 U/L (45-117)
[2017-12-17 06:53] LABS: MAGNESIUM 1.9 mg/dL (1.8-2.4); POTASSIUM 4.2 mmol/L (3.5-5.1); SGOT/AST 13 U/L (15-37)
[2017-12-17] MEDS ORDERED: REPAGLINIDE 1 MG TABLET PO SCH (07:00)
[2017-12-17 07:01] LABS: GLUCOSE,RANDOM 430 mg/dL (74-106)
[2017-12-17 07:18] LABS: INR 1.04 (0.82-1.09); PROTHROMBIN TIME (PATIENT) 11.7 SEC (9.7-13.0)
[2017-12-17 07:21] LABS: ACTIVATED PTT 30.6 SECONDS (25.2-36.5)
[2017-12-17] MEDS ORDERED: Insulin (LOG) Aspart 100 UNITS/ML VIAL SQ ONE (07:26)
[2017-12-17] MEDS ORDERED: INSULIN (LEVEMIR) 100 UNITS/ML UNITS SQ ONE (08:14)
[2017-12-17] MEDS ORDERED: FUROSEMIDE 40 MG/4 ML INJECTABLE VIAL IVPUSH SCH (10:41)
[2017-12-17] MEDS: ASPIRIN 81 MG CHEWABLE TABLETS PO SCH (11:07)
[2017-12-17] MEDS: PANTOPRAZOLE 20 MG TABLET (FP) PO SCH (11:07)
[2017-12-17] MEDS: RANOLAZINE E.R. 500 MG TABLET (FP) PO SCH ×2 (11:07→21:48)
[2017-12-17] MEDS: CARVEDILOL 12.5 MG TABLET (FP) PO SCH ×2 (11:07→21:48)
[2017-12-17] MEDS: guaiFENesin 600 MG TABLET.ER (FP) PO SCH ×2 (11:08→21:48)
[2017-12-17] MEDS: POLYETHYLENE GLYCOL 3350 119 GM BTL PO SCH ×2 (11:08→22:13)
[2017-12-17] MEDS ORDERED: DEXTROSE 5%-WATER 100 ML IVPB ONE (11:18)
[2017-12-17] MEDS: CEFTRIAXONE 2 GM in DEXTROSE 5%-WATER 100 ML IVPB SCH (11:25)
--- NOTE | 2017-12-17 11:25 | EKG ---
Test Reason : Blood Pressure : / mmHG Vent. Rate : 059 BPM Atrial Rate : 059 BPM P-R Int : 182 ms QRS Dur : 090 ms QT Int : 454 ms P-R-T Axes : 069 052 113 degrees QTc Int : 449 ms SINUS BRADYCARDIA ABNORMAL ECG WHEN COMPARED WITH ECG OF 26-NOV-2017 20:01, NO SIGNIFICANT CHANGE WAS FOUND Confirmed by JANICE RESENDIZ MD ([id number]) on 12/17/2017 11:25:00 AM Referred By: Confirmed By:JANICE RESENDIZ MD
--- NOTE | 2017-12-17 11:57 | CON.CARD ---
Consult Consult Specialty:: Cardiology Referred by:: Hospitalist Medicine Reason for Consultation:: Chest pain, dyspnea, CABG - History of Present Illness Chief Complaint: Chest pain, dyspnea History of Present Illness: This is an 82 year old female with a PMH of f HTN, HLD, CAD s/p CABG, IDDM, CVA , L toe gangrene with osteomyelitis (has PICC line, been tx w/ vanc, zosyn and currently on ceftriaxone and receiving hyperbarics therapy) p/w productive cough (white phlegm), SOB, CP due to cough x4d. Patient reports trying robitussin to treat cough which didn't help. SOB is worsened w/ exertion. CP is post-tussive, sharp, sternal, and is non-exertional/present w/ coughing, denies orthopnea, PND or LE edema. BP elevated, symptoms improving with diuresis. 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) Endocrine: Yes: Diabetes Mellitus, Hypothyroidism - Alcohol/Substance Use Hx Alcohol Use: No - Smoking History Smoking history: Unknown if ever smoked Have you smoked in the past 12 months: No Aproximately how many cigarettes per day: 0 Home Medications - Allergies Allergies/Adverse Reactions: Allergies Allergy/AdvReac Type Severity Reaction Status Date / Time No Known Drug Allergies Allergy Verified 12/16/17 17:24 - Home Medications Home Medications: Ambulatory Orders Aspirin [ASA -] 81 mg PO DAILY 08/20/17 Carvedilol [Coreg -] 12.5 mg PO BID 08/20/17 Levothyroxine [Synthroid -] 88 mcg PO DAILY 08/20/17 Omeprazole 20 mg PO DAILY 08/20/17 Ranolazine [Ranexa] 500 mg PO BID 08/20/17 Gabapentin [Neurontin -] 300 mg PO TID #90 capsule 08/31/17 Ramipril 2.5 mg PO DAILY 09/20/17 Atorvastatin Ca [Lipitor] 40 mg PO HS #30 tablet 09/21/17 Polyethylene Glycol 3350 [Miralax 119 gm Btl -] 17 gm PO BID bottle 09/21/17 Insulin Sliding Scale [Novolog Vial Sliding Scale -] See Protocol SQ TIDAC #5 vial 09/22/17 Acetaminophen [Pain Relief] 500 mg PO ASDIR 11/22/17 Insulin Detemir [Levemir Flextouch] 35 unit SQ HS 11/22/17 Repaglinide [Prandin -] 1 mg PO DAILY 11/22/17 Review of Systems - Review of Systems Cardiovascular: reports: Chest Pain, Shortness of Breath Respiratory: reports: Exercise Intolerance Vital Signs: Vital Signs Temperature 98.7 F 12/17/17 05:24 Pulse Rate 74 12/17/17 05:24 Respiratory Rate 18 12/17/17 05:24 Blood Pressure 143/69 12/17/17 05:24 O2 Sat by Pulse Oximetry (%) 96 12/16/17 22:25 Constitutional: Yes: No Distress, Calm Neck: Yes: Supple Respiratory: Yes: Regular, Diminished, On Nasal O2 Gastrointestinal: Yes: Normal Bowel Sounds, Soft, Abdomen, Obese Cardiovascular: Yes: Regular Rate and Rhythm JVD: No Carotid Bruit: No Heart Sounds: Yes: S1, S2 Murmur: Yes: Systolic Murmur, Grade 1 Edema: No - Other Data Labs, Other Data: CBC, BMP 12/17/17 05:30 12/17/17 05:30 INR, PTT INR 1.04 (0.82-1.09) 12/17/17 05:30 Troponin, BNP 12/16/17 16:24 Troponin I < 0.02 B-Natriuretic Peptide 5330.82 H Troponin, BNP 12/16/17 16:24 Troponin I < 0.02 B-Natriuretic Peptide 5330.82 H SB @ [address] changes Ejection Fraction %: LVEF > or = 40 % Imaging - Results Chest X-ray: Pending Problem List - Problems (1) S/P CABG (coronary artery bypass graft) Code(s): Z95.1 - PRESENCE OF AORTOCORONARY BYPASS GRAFT (2) Hyperlipidemia Code(s): E78.5 - HYPERLIPIDEMIA, UNSPECIFIED Qualifiers: Hyperlipidemia type: pure hypercholesterolemia Qualified Code(s): E78.00 - Pure hypercholesterolemia, unspecified; E78.0 - Pure hypercholesterolemia (3) Hypothyroidism Code(s): E03.9 - HYPOTHYROIDISM, UNSPECIFIED Qualifiers: Hypothyroidism type: unspecified Qualified Code(s): E03.9 - Hypothyroidism , unspecified (4) CHF exacerbation Code(s): I50.9 - HEART FAILURE, UNSPECIFIED Qualifiers: Heart failure type: combined systolic and diastolic Qualified Code(s): I50.43 - Acute on chronic combined systolic (congestive) and diastolic ( congestive) heart failure (5) Gangrenous toe Code(s): I96 - GANGRENE, NOT ELSEWHERE CLASSIFIED (6) Hyponatremia Code(s): E87.1 - HYPO-OSMOLALITY AND HYPONATREMIA (7) [id number] kidney injury Code(s): N17.9 - ACUTE KIDNEY FAILURE, UNSPECIFIED; N18.9 - CHRONIC KIDNEY DISEASE, UNSPECIFIED Qualifiers: Chronic kidney disease stage: stage 3 (moderate) (8) Hypertensive cardiomyopathy Code(s): I11.9 - HYPERTENSIVE HEART DISEASE WITHOUT HEART FAILURE; I43 - CARDIOMYOPATHY IN DISEASES CLASSIFIED ELSEWHERE Qualifiers: Heart failure presence: with heart failure Qualified Code(s): I11.0 - Hypertensive heart disease with heart failure; I43 - Cardiomyopathy in diseases classified elsewhere Assessment/Plan 04/11/12 Negative Persantine Stress Test 09/10/2017 Echo: Old LAD infarct, mild-mod decreased LV fxn, mild ISA, tr MR, severe apical septal and apical lateral HK 1. Acute on chronic diastolic heart failure improving 2. CAD s/p GA, CABG, angina pectoris 3. PAD with left toe osteomyelitis 4. Type 2 DM not at goal control 5. HTN 6. Hyperlipidemia 7. Cerebrovascular disease 8. Acute on CKD with proteinuria 9. Hypothyroidism 10. Hyponatremia P:1. IV diuresis with monitor diuretic response, renal function and electrolytes , check TSH, lipid panel 2. Continue ramipril 2.5 qd, carvedilol 12.5 bid, Lipitor 40 qhs, Ranexa 500 bid , and ASA 81 qd, consider addition of Jardiance 25 qd 3. DVT prophylaxis 4. Thank you for consultative opportunity
--- NOTE | 2017-12-17 12:03 | ECHO ---
Name: BRIAN DOUGLASS, LISSETTE Exam:Adult Echocardiogram Study Date: 12/17/2017 07:37 AM Age: 82 yrs Reason For Study: CHF Height: 62 in Weight: 165 lb BSA: 1.8 m2 MMode/2D Measurements & Calculations IVSd: 1.2 cm Ao root diam: 2.1 cm LVIDd: 3.6 cm LA dimension: 3.5 cm LVIDs: 2.5 cm LVPWd: 1.1 cm EDV(Teich): 53.7 ml ESV(Teich): 23.4 ml Doppler Measurements & Calculations MV E max angel: 94.6 cm/sec AI P1/2t: 693.9 msec MV A max angel: 104.3 cm/sec MV E/A: 0.91 MV dec time: 0.35 sec AI max angel: 300.0 cm/sec TR max angel: 275.5 cm/sec AI max P.0 mmHg TR max P.4 mmHg AI dec slope: 126.6 cm/sec2 Med Peak E' Angel: 4.2 cm/sec Med E/e': 22.3 Lat Peak E' Angel: 4.4 cm/sec Lat E/e': 21.7 Procedure A two-dimensional transthoracic echocardiogram with color flow and Doppler was performed. Left Ventricle Upper septal hypertrophy (sigmoid septum), normal variant. The left ventricle is normal in size. Left ventricular systolic function is mild to moderately reduced. E/A reversal consistent with but not damian gnostic of poor LV compliance. There is severe apical wall hypokinesis. There is moderate to severe anterior wall hypokinesis. There is septal wall hypokinesis. Right Ventricle The right ventricle is normal in size and function. Atria Normal left and right atrial size and function. Mitral Valve There is mild mitral valve thickening. There is no mitral valve stenosis. There is mild mitral regurg itation. Tricuspid Valve There is mild tricuspid valve thickening. There is no tricuspid stenosis. There is Trace to mild tric uspid regurgitation. Right ventricular systolic pressure is elevated at 30-40mmHg. Aortic Valve The aortic valve is trileaflet. There is mild aortic valve thickening. There is mild aortic sclerosis .;. No hemodynamically significant valvular aortic stenosis. No aortic regurgitation is present. Pulmonic Valve The pulmonic valve is not well visualized. There is no pulmonic valvular stenosis. There is no pulmon ic valvular regurgitation. Great Vessels The aortic root is normal size. Pericardium/Pleura There is no pericardial effusion. Interpretation Summary Left ventricular systolic function is mild to moderately reduced. There is severe apical wall hypokinesis. There is moderate to severe anterior wall hypokinesis. There is mild aortic valve thickening. There is mild aortic sclerosis.; Upper septal hypertrophy (sigmoid septum), normal variant. The left ventricle is normal in size. There is Trace to mild tricuspid regurgitation. Right ventricular systolic pressure is elevated at 30-40mmHg. E/A reversal consistent with but not diagnostic of poor LV compliance There is mild mitral regurgitation. MD Simon Calles 12/17/2017 12:02 PM
[2017-12-17] MEDS: FUROSEMIDE 40 MG/4 ML INJECTABLE VIAL IVPUSH SCH (12:47)
[2017-12-17 14:23] VITALS: BMI 29.4
[2017-12-17] MEDS ORDERED: FUROSEMIDE 40 MG/4 ML INJECTABLE VIAL IVPUSH ONE (14:45)
--- NOTE | 2017-12-17 16:07 | PN ---
Teaching Attending Note Name of Resident: Verna Kelly ATTENDING PHYSICIAN STATEMENT I saw and evaluated the patient. I reviewed the resident's note and discussed the case with the resident. I agree with the resident's findings and plan as documented. SUBJECTIVE: No fever or chills . No abd pain . SOB but better OBJECTIVE: NAD Cv : RRR, NO JVD Lungs: bibasilar crackles . Ext: no edema. per pt no dressing removal is allowed today Abd:soft, NT, ND , NL BS ASSESSMENT AND PLAN: 82 y/o lady withh/o S CHF, CVA, CAD. s/p CABG, HLP, PVD, Dm , hypothyroidism, and recent admission for Big toe gangrene, OM , with PICC line placement for IV Abx , who presented due to SOB . She was found to have acute systolic CHF exacerbation 1- Acute systolic CHF exacerbation, improved but still with SOb and crackles - cont lasix - resume home ramipril - cont coreg 2- poory controlled DM: missed her evening dose of levemir - gave shot acting and long acting insulin this am . No signs of DKA - arron confirm insulin regimen and fix regimen 3- Recent OM of L big toe. Dc on ceftriaxone on 11/22 . bone cx reviewed. ID noted last admisison reviewed. - resume ceftriaxone 2 g daily ( total of 6 weeks total ) - podiatry f/u. d/w Dr. Read, had placed a graft yesterday 4- PVD : for angio and intervention after OM treatment is finished 5- HTN: cont home meds 6- CKD: cr at base line . 7- Hyponatremia : corrected Na 131.8 . possibly due to heart failure . monitor with diuresis 8- elevated Alk phos: likley form bone source. chronic elevation get GGT dispo: HLOC
--- NOTE | 2017-12-17 18:47 | PN ---
Physical Exam: SUBJECTIVE: Patient seen and examined at bedside. No acute events overnight. Admits to improved breathing. Denies chest pain. As per nurse, no acute events overnight. +urinating. -BM for past 3 days. OBJECTIVE: Vital Signs Period Temp Pulse Resp BP Sys/Ibarra Pulse Ox Last 24 Hr 97.7 F-98.7 F 61-74 18-20 115-173/69-87 94-96 GENERAL: Awake, alert, and fully oriented, in no acute distress. HEAD: Normal with no signs of trauma. EYES: Pupils equal, round and reactive to light, extraocular movements intact, sclera anicteric, conjunctiva clear. No lid lag. EARS, NOSE, THROAT: nares patent, oropharynx clear without exudates. Moist mucous membranes. NECK: Normal range of motion, supple without lymphadenopathy, JVD, or masses. LUNGS: crackles b/l HEART: Regular rate and rhythm, normal S1. without murmur, rub or gallop. ABDOMEN: Echymosis in RLQ, Soft, nontender, not distended, normoactive bowel sounds, no guarding, no rebound, no masses. No hepatomegaly or splenomegaly. MUSCULOSKELETAL: Normal range of motion at all joints. No bony deformities or tenderness. UPPER EXTREMITIES: 2+ pulses, warm, well-perfused. No cyanosis. No clubbing. No peripheral edema. LOWER EXTREMITIES: 2+ pulses, warm, well-perfused. No calf tenderness. No peripheral edema or swelling. L foot wrapped in bandage, no drainage noted. no ulcers noted on R foot NEUROLOGICAL: Cranial nerves II-XII intact. Normal speech. SKIN: Warm, dry, normal turgor, no rashes or lesions noted, normal capillary refill. Laboratory Results - last 24 hr 12/16/17 12/17/17 12/17/17 22:15 05:30 05:30 WBC 8.1 RBC 4.14 Hgb 12.6 Hct 36.9 MCV 89.3 MCH 30.5 MCHC 34.2 RDW 13.7 Plt Count 272 MPV 8.7 Absolute Neuts (auto) 6.5 Neutrophils % 79.7 D Lymphocytes % 19.1 D Monocytes % 1.0 L D Eosinophils % 0.0 D Basophils % 0.2 Nucleated RBC % 0 PT with INR 11.70 INR 1.04 PTT (Actin FS) 30.6 Sodium Potassium Chloride Carbon Dioxide Anion Gap BUN Creatinine Creat Clearance w eGFR Random Glucose Hemoglobin A1c % Calcium Phosphorus Magnesium Total Bilirubin AST ALT Alkaline Phosphatase Total Protein Albumin Urine Color Colorless Urine Appearance Clear Urine pH 6.0 Ur Specific [place] 1.003 Urine Protein Negative Urine Glucose (UA) 3+ H Urine Ketones Negative Urine Blood Negative Urine Nitrite Negative Urine Bilirubin Negative Urine Urobilinogen Negative Ur Leukocyte Esterase Negative 12/17/17 12/17/17 05:30 05:30 WBC RBC Hgb Hct MCV MCH MCHC RDW Plt Count MPV Absolute Neuts (auto) Neutrophils % Lymphocytes % Monocytes % Eosinophils % Basophils % Nucleated RBC % PT with INR INR PTT (Actin FS) Sodium 127 L Potassium 4.2 Chloride 87 L Carbon Dioxide 29 Anion Gap 11 BUN 22 H Creatinine 1.3 H Creat Clearance w eGFR 39.21 Random Glucose 430 H* Hemoglobin A1c % 10.0 H Calcium 9.4 Phosphorus 4.3 Magnesium 1.9 Total Bilirubin 0.4 AST 13 L ALT 20 Alkaline Phosphatase 138 H D Total Protein 8.1 Albumin 3.6 Urine Color Urine Appearance Urine pH Ur Specific [place] Urine Protein Urine Glucose (UA) Urine Ketones Urine Blood Urine Nitrite Urine Bilirubin Urine Urobilinogen Ur Leukocyte Esterase Active Medications Generic Name Dose Route Start Last Admin Trade Name Freq PRN Reason Stop Dose Admin Aspirin 81 mg 12/17/17 10:00 12/17/17 11:07 Asa - PO 81 mg DAILY PALOMA Administration Atorvastatin Calcium 40 mg 12/17/17 22:00 Lipitor - PO HS PALOMA Carvedilol 12.5 mg 12/17/17 10:00 12/17/17 11:07 Coreg - PO 12.5 mg BID PALOMA Administration Furosemide 40 mg 12/17/17 10:41 Lasix Injection - IVPUSH DAILY [facility] Gabapentin 300 mg 12/17/17 01:41 12/17/17 13:10 Neurontin - PO 300 mg TID PALOMA Administration Guaifenesin 600 mg 12/16/17 22:00 12/17/17 11:08 Mucinex - PO 600 mg BID PALOMA Administration Heparin Sodium (Porcine) 5,000 unit 12/17/17 06:00 12/17/17 13:10 Heparin - SQ 5,000 unit TID [facility]OMA Administration Heparin Sodium (Porcine) 5 ml 12/17/17 11:41 12/17/17 14:41 Hep-Lock - IVPUSH 5 ml PRN PRN Administration FLUSH Ceftriaxone Sodium 2 gm/ 100 mls @ 100 mls/hr 12/17/17 11:00 12/17/17 11:25 Dextrose IVPB 100 mls/hr DAILY PAL[facility] Administration Insulin Aspart 1 vial 12/17/17 07:00 12/17/17 16:54 Novolog Vial Sliding Scale - SQ 6 units ACHS PALOMA Administration Protocol Insulin Detemir 35 units 12/17/17 22:00 Levemir Vial SQ HS PALOMA Levothyroxine Sodium 88 mcg 12/17/17 07:00 12/17/17 06:29 Synthroid - PO 88 mcg DAILY@0700 [facility] Administration Pantoprazole Sodium 20 mg 12/17/17 10:00 12/17/17 11:07 Protonix - PO 20 mg DAILY [facility] Administration Polyethylene Glycol 17 gm 12/17/17 10:00 12/17/17 11:08 Miralax (For Daily Use) - PO 17 grams BID [facility] Administration Ranolazine 500 mg 12/17/17 10:00 12/17/17 11:07 Ranexa - PO 500 mg BID [facility] Administration ASSESSMENT/PLAN: 82F with PMH of L toe gangrene with osteomyelitis, IDDM, hypothyoidism, CABG, HTN, HLD, CAD p/w productive cough (white phlegm), SOB, CP due to cough x4d admitted for CHF exacerbation. #Acute systolic CHF exacerbation; Pt stable, but w/ b/l crackles. -Cont Lasix 40 mg IVP; monitor output -Cont Carvedilol 12.5 mg PO BID -Cont Ranolazine 500 mg PO BID -hold Ramipril 2.5 mg PO QD until Cr check in AM -Per Cardio (Dr. Fournier): f/u TSH and lipid panel #DM; uncontrolled Glu. 430 overnight. Per nurse, missed evening dose of Levemir. -Nurse gave 12U in AM, then 8U in late morning to complete 20mg BID dose. -will continue Levemir 35U HS + ISS #Osteomyelitis of L big toe; Stable. Told by nurse and pt that dressing cannot be unwrapped for 1 week per podiatry request. -Cont Ceftriaxone 2g PO QD for 6 weeks -f/u Podiatry; Dr. Bradley recently seen pt yesterday. #Hyponatremia; Na corrected to 131. -likely due to CHF exacerbation -cont to monitor for acute changes in electrolytes #HTN; BP controlled. -cont Carvedilol 12.5mg PO BID #Hypothyroidism -cont Synthroid 88 mcg PO QD #CAD -cont Aspirin 81 mg PO QD #HLD -cont Atorvastatin 40 mg PO HS #CKD; Stable at 1.3 -currently at baseline -cont to monitor Cr for worsening kidney fxn #constipation -Miralax 17 gm PO BID #DVT ppx -cont Heparin 5000U SQ TID #FEN -no IVF needed as pt is in HF -recheck lytes in AM -sodium-controlled diet dispo full code Visit type - Emergency Visit Emergency Visit: Yes ED Registration Date: 12/16/17 Care time: The patient presented to the Emergency Department on the above date and was hospitalized for further evaluation of their emergent condition. - New Patient This patient is new to me today: Yes Date on this admission: 12/17/17 - Critical Care Critical Care patient: No
[2017-12-17] MEDS ORDERED: ATORVASTATIN CA 40 MG TABLET (FP) PO SCH (22:00)
[2017-12-17] MEDS ORDERED: INSULIN (LEVEMIR) 100 UNITS/ML UNITS SQ SCH (22:00)
[2017-12-18] MEDS: HEPARIN NA (PORCINE) 5,000 UNITS/ML 1ML VIAL SQ SCH ×2 (06:25→14:35)
[2017-12-18] MEDS: GABAPENTIN 300 MG CAPSULE (FP) PO SCH ×2 (06:25→14:35)
[2017-12-18] MEDS: LEVOTHYROXINE NA 88 MCG TABLET (FP) PO SCH (06:25)
[2017-12-18] MEDS: INSULIN SLIDING SCALE (NOVOLOG) 1 VIAL SQ SCH ×3 (06:26→16:54)
[2017-12-18 06:55] LABS: HEMATOCRIT 34.7 % (32.4-45.2); HEMOGLOBIN 11.9 GM/dL (10.7-15.3); MCH 30.5 pg (25.7-33.7); MCHC 34.4 g/dl (32.0-36.0); MEAN CELL VOLUME 88.7 fl (80-96); MEAN PLT VOLUME 8.9 fl (7.5-11.1); PLATELET COUNT 267 K/MM3 (134-434); RBC 3.92 M/mm3 (3.60-5.2); RDW 13.5 % (11.6-15.6); WHITE BLOOD COUNT 12.6 K/mm3 (4.0-10.0)
[2017-12-18 07:16] LABS: ANION GAP 9 (8-16); BLOOD UREA NITROGEN 40 mg/dL (7-18); CHLORIDE 89 mmol/L (98-107); CO2 30 mmol/L (21-32); CREATININE 1.3 mg/dL (0.55-1.02); GLUCOSE,RANDOM 293 mg/dL (74-106); POTASSIUM 4.2 mmol/L (3.5-5.1); SODIUM 128 mmol/L (136-145); TRIGLYCERIDES 213 mg/dL (35-160)
[2017-12-18 07:25] LABS: CHOLESTEROL 223 mg/dL (50-200); HDL CHOLESTEROL 44 mg/dL (40-60)
--- NOTE | 2017-12-18 09:48 | PN ---
Progress Note, Physician History of Present Illness: Dyspnea, cough and chest tightness improved with diuresis. - Current Medication List Current Medications: Active Medications Aspirin (Asa -) 81 mg PO DAILY [facility] Last Admin: 12/17/17 11:07 Dose: 81 mg Atorvastatin Calcium (Lipitor -) 40 mg PO HS [facility] Last Admin: 12/17/17 21:48 Dose: 40 mg Carvedilol (Coreg -) 12.5 mg PO BID [facility] Last Admin: 12/17/17 21:48 Dose: 12.5 mg Furosemide (Lasix Injection -) 40 mg IVPUSH DAILY [facility] Gabapentin (Neurontin -) 300 mg PO TID [facility] Last Admin: 12/18/17 06:25 Dose: 300 mg Guaifenesin (Mucinex -) 600 mg PO BID [facility] Last Admin: 12/17/17 21:48 Dose: 600 mg Heparin Sodium (Porcine) (Heparin -) 5,000 unit SQ TID [facility] Last Admin: 12/18/17 06:25 Dose: 5,000 unit Heparin Sodium (Porcine) (Hep-Lock -) 5 ml IVPUSH PRN PRN PRN Reason: FLUSH Last Admin: 12/17/17 14:41 Dose: 5 ml Ceftriaxone Sodium 2 gm/ (Dextrose) 100 mls @ 100 mls/hr IVPB DAILY [facility] Last Admin: 12/17/17 11:25 Dose: 100 mls/hr Insulin Aspart (Novolog Vial Sliding Scale -) 1 vial SQ [facility]; Protocol Last Admin: 12/18/17 06:26 Dose: 8 units Insulin Detemir (Levemir Vial) 35 units SQ [facility] Last Admin: 12/17/17 22:10 Dose: 35 units Levothyroxine Sodium (Synthroid -) 88 mcg PO DAILY@0700 [facility] Last Admin: 12/18/17 06:25 Dose: 88 mcg Pantoprazole Sodium (Protonix -) 20 mg PO DAILY [facility] Last Admin: 12/17/17 11:07 Dose: 20 mg Polyethylene Glycol (Miralax (For Daily Use) -) 17 gm PO BID [facility] Last Admin: 12/17/17 22:13 Dose: 17 grams Ranolazine (Ranexa -) 500 mg PO BID [facility] Last Admin: 12/17/17 21:48 Dose: 500 mg - Objective Vital Signs: Vital Signs Temperature 98.2 F 12/18/17 05:30 Pulse Rate 63 07/28/18 05:30 Respiratory Rate 18 12/18/17 05:30 Blood Pressure 151/79 12/18/17 05:30 O2 Sat by Pulse Oximetry (%) 95 12/17/17 20:28 Constitutional: Yes: No Distress, Calm Neck: Yes: Supple Cardiovascular: Yes: Regular Rate and Rhythm Respiratory: Yes: Regular, Diminished, On Nasal O2 Gastrointestinal: Yes: Normal Bowel Sounds, Soft Edema: No Labs: CBC, BMP 12/18/17 05:30 12/18/17 05:30 INR, PTT INR 1.04 (0.82-1.09) 12/17/17 05:30 Problem List - Problems (1) S/P CABG (coronary artery bypass graft) Code(s): Z95.1 - PRESENCE OF AORTOCORONARY BYPASS GRAFT (2) Hyperlipidemia Code(s): E78.5 - HYPERLIPIDEMIA, UNSPECIFIED Qualifiers: Hyperlipidemia type: pure hypercholesterolemia Qualified Code(s): E78.00 - Pure hypercholesterolemia, unspecified; E78.0 - Pure hypercholesterolemia (3) Hypothyroidism Code(s): E03.9 - HYPOTHYROIDISM, UNSPECIFIED Qualifiers: Hypothyroidism type: unspecified Qualified Code(s): E03.9 - Hypothyroidism , unspecified (4) CHF exacerbation Code(s): I50.9 - HEART FAILURE, UNSPECIFIED Qualifiers: Heart failure type: combined systolic and diastolic Qualified Code(s): I50.43 - Acute on chronic combined systolic (congestive) and diastolic ( congestive) heart failure (5) Gangrenous toe Code(s): I96 - GANGRENE, NOT ELSEWHERE CLASSIFIED (6) Hyponatremia Code(s): E87.1 - HYPO-OSMOLALITY AND HYPONATREMIA (7) [id number] kidney injury Code(s): N17.9 - ACUTE KIDNEY FAILURE, UNSPECIFIED; N18.9 - CHRONIC KIDNEY DISEASE, UNSPECIFIED Qualifiers: Chronic kidney disease stage: stage 3 (moderate) (8) Hypertensive cardiomyopathy Code(s): I11.9 - HYPERTENSIVE HEART DISEASE WITHOUT HEART FAILURE; I43 - CARDIOMYOPATHY IN DISEASES CLASSIFIED ELSEWHERE Qualifiers: Heart failure presence: with heart failure Qualified Code(s): I11.0 - Hypertensive heart disease with heart failure; I43 - Cardiomyopathy in diseases classified elsewhere Assessment/Plan 04/11/12 Negative Persantine Stress Test 09/10/2017 Echo: Old LAD infarct, mild-mod decreased LV fxn, mild ISA, tr MR, severe apical septal and apical lateral HK 1. Acute on chronic diastolic heart failure improving 2. CAD s/p MO, CABG, angina pectoris 3. PAD with left toe osteomyelitis 4. Type 2 DM not at goal control 5. HTN 6. Hyperlipidemia not at goal 7. Cerebrovascular disease 8. Acute on CKD with proteinuria 9. Hypothyroidism 10. Hyponatremia P:1. Oral diuresis with monitor diuretic response, renal function and electrolytes 2. Continue carvedilol 12.5 bid, Lipitor 40 qhs, Ranexa 500 bid, and ASA 81 qd, add Zetia 10 qd, consider addition of Jardiance 25 qd, resume ramipril once renal function stabilizes 3. DVT prophylaxis 4. Empiric abx course
[2017-12-18] MEDS ORDERED: DEXTROSE 5%-WATER 100 ML IVPB ONE (09:58)
[2017-12-18] MEDS ORDERED: FUROSEMIDE 20 MG TABLET (FP) PO SCH (10:00)
[2017-12-18] MEDS ORDERED: EZETIMIBE 10 MG TABLET (FP) PO SCH (10:00)
[2017-12-18] MEDS: RANOLAZINE E.R. 500 MG TABLET (FP) PO SCH (10:15)
[2017-12-18] MEDS: guaiFENesin 600 MG TABLET.ER (FP) PO SCH (10:15)
[2017-12-18] MEDS: CARVEDILOL 12.5 MG TABLET (FP) PO SCH (10:15)
[2017-12-18] MEDS: PANTOPRAZOLE 20 MG TABLET (FP) PO SCH (10:15)
[2017-12-18] MEDS: ASPIRIN 81 MG CHEWABLE TABLETS PO SCH (10:15)
[2017-12-18] MEDS: CEFTRIAXONE 2 GM in DEXTROSE 5%-WATER 100 ML IVPB SCH (10:20)
[2017-12-18] MEDS ORDERED: MINERAL OIL ENEMA 133 ML ENEMA PR ONE (11:10)
--- NOTE | 2017-12-18 11:12 | PN ---
Teaching Attending Note Name of Resident: Tao Lee ATTENDING PHYSICIAN STATEMENT I saw and evaluated the patient. I reviewed the resident's note and discussed the case with the resident. I agree with the resident's findings and plan as documented. SUBJECTIVE: No fever or chills. No abd pain. feels tired. OBJECTIVE: NAD Cv : RRR, NO JVD Lungs:minimal crackles at bases. no wheezing , good air entry Ext: no edema. L foot with a clean dressing , removed. L big toe ulcer with no drainage . Abd:soft, NT, ND , NL BS ASSESSMENT AND PLAN: 82 y/o lady withh/o S CHF, CVA, CAD. s/p CABG, HLP, PVD, Dm , hypothyroidism, and recent admission for Big toe gangrene, OM , with PICC line placement for IV Abx , who presented due to SOB . She was found to have acute systolic CHF exacerbation 1- Acute systolic CHF exacerbation, improved - switch to PO lasix - her cr is at base line. resume ramipril tomorrow - cont coreg 2- poory controlled DM: was started on her home dose levemir last night . - monitor sugar throughout the day - cont SSI 3- Recent OM of L big toe. Dc on ceftriaxone on 11/30 . bone cx reviewed. - Cont ceftriaxone 2 g daily ( total of 6 weeks) as planned as out pt per previous discharge - follows with podiatry 4- PVD : for angio and intervention after OM treatment is finished 5- HTN: cont home meds 6- CKD: cr at base line . 7- Hyponatremia : corrected Na 131.2 . stable 8- Elevated Alk phos: likely form bone source or from Ceftriaxone . chronic elevatoin f/u as out pt 9- hyperlipidemia : LDL 153. on 40 of lipitor at home. zetia added . dispo : PT AMAURY evlasquez today CMP in 1 week f/u with card , Podiatry, ID , Vascular , and PCP
[2017-12-18] MEDS: POLYETHYLENE GLYCOL 3350 119 GM BTL PO SCH (14:35)
--- NOTE | 2017-12-18 15:13 | CONSULT ---
Consult - text type - Consultation Consultation Note: Pt seen this morning. Feeling better. vss tmax 97.7 vsgi, ns decreased b/l, +wound left big toe graft in place, versatile shifted om grade 2 wound left hallux Continue abx as per ID. dressing replaced and placement of versatile corrected. Will follow till dc. Do not remove dressing left big toe.
[2017-12-18] MEDS ORDERED: PT OWN MED DRAWER 7, Y5N ONE (18:21)
[2017-12-19 02:15] VITALS: BP 142/73; PULSE 63; TEMP 98
--- NOTE | 2017-12-19 09:37 | DS ---
Physical Exam: SUBJECTIVE: No acute complaints. OBJECTIVE: Vital Signs Period Temp Pulse Resp BP Sys/Ibarra Pulse Ox Last 24 Hr 97.6 F-98.2 F 53-63 20-22 128-147/52-73 LABS Laboratory Results - last 24 hr 12/18/17 12/18/17 11:16 16:50 POC Glucometer 382 313 HOSPITAL COURSE: Date of Admission:12/16/17 CXR (12/16/17): No specific pneumonic infiltrate seen. Congestive changes with mild improvement. Post CABG. Interval placement of a PICC line on the right, in place. Echo: LV systolic fxn is mild to moderately reduced. 82F with PMH of L toe gangrene with osteomyelitis, IDDM, hypothyoidism, CABG, HTN, HLD, and CAD who presented with productive cough (white phlegm), SOB, CP due to 4 day hx of cough was admitted for CHF exacerbation. Upon examination in the ED, pt had b/l crackles and no JVD or peripheral edema. Zithromax, dexamethasone, duoneb, mucinex were given due to possibility of acute pneumonia. CXR was done and showed no evidence of pna, normal WBC, no fevers, and as a result antibiotics were dc'd. Possible early CHF exacerbation could not be ruled out, thus Lasix was given. After lasix tx, pt's crackles improved with no shortness of breath or cough. Additionally, cardio was consulted for further eval. Per cardio, pt was given ramipril for high BP as pt was supposed to be on it at home, but had not picked up med at [facility]. During hospital stay , pt was hyperglycemic overnight in the 430s with no symptoms and as a result, her insulin regimen was adjusted appropriately for proper blood glucose control. She also complained of constipation in which Colace was given. Due to recent osteomyelitis of the L big toe, podiatry was consulted for eval. Pt was given Ceftriaxone per podiatry as pt had a graft placed the day prior to admission. Prior to discharge, pt's symptoms of cough, sob, and chest pain had resolved. She was discharged on Lasix for CHF exacerbation, Colace and Senna for constipation, Zetia for HLD, and ramipril with instructions to follow up with her PCP, engineering psychologist, and manager psychiatry outpatient. Additionally, she was instructed to follow up with vascular surgery to evaluate the circulation of her leg as well as ID for appropriate tx of her osteomyelitis. Due to acute CHF exacerbation, pt was given instructions to check daily weights and to repeat blood work, BMP, in 1 week. Date of Discharge: 12/19/17 Minutes to complete discharge: 35 Discharge Summary Reason For Visit: ACUTE ON CHRONIC CONGESTIVE HEART FAILURE Condition: Improved - Instructions Diet, Activity, Other Instructions: You were admitted for the treatment of your congestive heart failure. We gave you some medications to decrease the water in your body and you improved. We are sending you home with some new medications to help your heart and to help lower your cholesterol. You should start taking Lasix 20mg by mouth daily You should start taking Zetia 10mg by mouth daily You should start taking Colace and Senna to help with your constipation. You should start taking Ramipril 2.5 mg daily to help control your blood pressure. You should continue taking the rest of your medications as prescribed. Be sure to continue getting your infusions of Ceftriaxone for your foot infection daily. go tomorrow to the infusion center as per your routine You should follow up with your primary care physician within 1 week of discharge home You should follow up with your engineering psychologist within 1 week of discharge home. You should follow up with your manager psychiatry as scheduled. Follow up with DR. Watts, the vascular surgeon as you need a procedure for your leg to improve circulation follow with Dr. Mccullough in 2 weeks If you begin to experience worsening chest pain, shortness of breath, lower extremity swelling, weakness or if any of your symptoms get worse, please call your doctor or return to the emergency department. You need to weigh your self daily and call your doctor if you gain > 2 pounds you need blood work in 1 week ( BMP ) . fax results to your Primary doctor , Dr. Calhoun Referrals: Maria Fernanda Mccullough MD [Staff Physician] - 2 Weeks Luz Kaur MD [Primary Care Provider] - 1 Week Yobani Watts MD [Non Staff, Medical] - Ron Fournier MD [Staff Physician] - 1 Week Kwasi Read DPM [Staff Physician] - Disposition: HOME - Home Medications Comprehensive Discharge Medication List: Ambulatory Orders Aspirin [ASA -] 81 mg PO DAILY 08/20/17 Carvedilol [Coreg -] 12.5 mg PO BID 08/20/17 Levothyroxine [Synthroid -] 88 mcg PO DAILY 08/20/17 Omeprazole 40 mg PO DAILY 08/20/17 Ranolazine [Ranexa] 500 mg PO BID 08/20/17 Gabapentin [Neurontin -] 300 mg PO TID #90 capsule 08/31/17 Atorvastatin Ca [Lipitor] 40 mg PO HS #30 tablet 09/21/17 Polyethylene Glycol 3350 [Miralax 119 gm Btl -] 17 gm PO BID bottle 09/21/17 Insulin Sliding Scale [Novolog Vial Sliding Scale -] See Protocol SQ TIDAC #5 vial 09/22/17 Acetaminophen [Pain Relief] 500 mg PO ASDIR 11/22/17 Insulin Detemir [Levemir Flextouch] 35 unit SQ HS 11/22/17 Repaglinide [Prandin -] 2 mg PO DAILY 11/22/17 Ceftriaxone [Rocephin -] 2 gm IVPB DAILY vial 12/18/17 Docusate Sodium [Colace -] 100 mg PO DAILY #30 capsule 12/18/17 Ezetimibe [Zetia -] 10 mg PO DAILY #30 tablet 12/18/17 Furosemide [Lasix -] 20 mg PO DAILY #30 tablet 12/18/17 Miscellaneous Drug Not In Syst [Outpatient Lab Test] 1 each ASDIR #1 misc Ramipril 2.5 mg PO DAILY #30 capsule 12/18/17 Sennosides [Senna] 2 tab PO DAILY #60 tablet 12/18/17 This patient is new to me today: No Emergency Visit: Yes ED Registration Date: 12/16/17 Care time: The patient presented to the Emergency Department on the above date and was hospitalized for further evaluation of their emergent condition. Critical Care patient: No - Discharge Referral Referred to [facility] Yes Physician Referral: Yobani Watts DO ([facility])
--- NOTE | 2017-12-19 15:57 | HOSP ---
Subjective - Review of Symptoms Events since last encounter: called by RN on . patient received her ceftriaxone infusin . her SBP in 80s. pt has dizziness but per daughter chronic. she did not pick her prescribed meds yet ( did not take ramipril ) . RN advised to send pt to ER to get evaluated. If sent home form ER, she was advised not to take ramipril . Physical Examination Vital Signs: Vital Signs Temperature 98 F 12/19/17 02:14 Pulse Rate 63 12/19/17 02:14 Respiratory Rate 22 12/19/17 02:14 Blood Pressure 142/73 12/19/17 02:14 O2 Sat by Pulse Oximetry (%) 96 12/18/17 09:00 Labs: CBC, BMP 12/18/17 05:30 12/18/17 05:30
== END 2017-12-18 20:30 | disposition home or self-care (01) | DRG 291 ==
LOC: JER 15:31 → JERBED 19:22 → J4W 22:23
PROVIDERS: ADMIT Internal Medicine; ATTEND Internal Medicine
DX: I13.0 Hypertensive heart and chronic kidney disease with heart failure and stage 1 through stage 4 chronic kidney disease, or unspecified chronic kidney disease (principal); I50.33 Acute on chronic diastolic (congestive) heart failure; E87.1 Hypo-osmolality and hyponatremia; M86.9 Osteomyelitis, unspecified; N17.9 Acute kidney failure, unspecified; E11.22 Type 2 diabetes mellitus with diabetic chronic kidney disease; N18.9 Chronic kidney disease, unspecified; E11.65 Type 2 diabetes mellitus with hyperglycemia; I73.9 Peripheral vascular disease, unspecified; E78.5 Hyperlipidemia, unspecified; E03.9 Hypothyroidism, unspecified; I25.119 Atherosclerotic heart disease of native coronary artery with unspecified angina pectoris; Z95.1 Presence of aortocoronary bypass graft
CPT/HCPCS: 11042; 15275; 36415; 71045-TC-FY; 71046-TC-FY; 73630-TC-LT; 80048; 80053; 80061; 81003; 82550; 82962; 83036; 83605; 83721; 83735; 83880; 84100; 84443; 84484; 85025; 85027; 85610; 85730; 87040; 93005; 93010; 93306-TC; 96365; 96367; 99282-25; G0277; J1100; J1644; J7620; Q4172

== ENCOUNTER 2017-12-19 14:39 | Day surgery (SDC) | payer MEDICARE, OTHER ==
[2017-12-19] MEDS ORDERED: CEFTRIAXONE 2 GM in DEXTROSE 5%-WATER 100 ML IVPB ONE (15:00)
[2017-12-19] MEDS ORDERED: DEXTROSE 5%-WATER 100 ML IVPB ONE (15:06)
[2017-12-19 15:20] VITALS: TEMP 98
[2017-12-19 15:51] VITALS: BP 89/42; PULSE 55
== END 2017-12-19 16:00 | disposition home or self-care (01) ==
LOC: JINFUSION 14:39 → J7W 14:40 → JINFUSION 16:00
PROVIDERS: ATTEND Internal Medicine
DX: E11.69 Type 2 diabetes mellitus with other specified complication (principal); L02.612 Cutaneous abscess of left foot; M86.9 Osteomyelitis, unspecified; I70.202 Unspecified atherosclerosis of native arteries of extremities, left leg
CPT/HCPCS: 96365

== ENCOUNTER 2017-12-19 16:32 | Emergency (ER) | payer MEDICARE, OTHER ==
[2017-12-19 16:42] VITALS: TEMP 97.9; BMI 30.2
--- NOTE | 2017-12-19 17:21 | PDOC ---
Attending Attestation - Physicial Exam PE: 12/19/17 20:13 Well developed, well nourished. Awake and alert. No acute distress. HEENT: +Dry mucous membrane. Normocephalic, atraumatic. PERRLA, EOMI. No conjunctival pallor. Sclera are non-icteric. Oropharynx is clear. NECK: Supple. Full ROM. No JVD. Carotid pulses 2+ and symmetric, without bruits. No thyromegaly. No lymphadenopathy. CARDIOVASCULAR: Regular rate and rhythm. No murmurs, rubs, or gallops. Distal pulses are 2+ and symmetric. PULMONARY: No evidence of respiratory distress. Lungs clear to auscultation bilaterally. No wheezing, rales or rhonchi. ABDOMINAL: Soft. Non-tender. Non-distended. No rebound or guarding. No organomegaly. Normoactive bowel sounds. MUSCULOSKELETAL Normal range of motion at all joints. No bony deformities or tenderness. No CVA tenderness. EXTREMITIES: No cyanosis. No clubbing. No edema. No calf tenderness. SKIN: +Right arm PICC line no erythema or discharge from the site. Warm and dry. Normal capillary refill. No rashes. No jaundice. NEUROLOGICAL: Alert, awake, appropriate. Cranial nerves 2-12 intact. No deficits to light touch and temperature in face, upper extremities and lower extremities. No motor deficits in the in face, upper extremities and lower extremities. Normoreflexic in the upper and lower extremities. Normal speech. Toes are down- going bilaterally. Gait is normal without ataxia. PSYCHIATRIC: Cooperative. Good eye contact. Appropriate mood and affect. Documentation prepared by Ciro Manuel, acting as biomedical manager for Dorothy Wayne MD. <Ciro Manuel - Last Filed: 12/19/17 20:13> - Resident Resident Name: Dino Wright - ED Attending Attestation I have performed the following: I have examined & evaluated the patient, The case was reviewed & discussed with the resident, I agree w/resident's findings & plan, Exceptions are as noted - HPI HPI: 12/19/17 20:02 82-year-old female who was getting ceftriaxone infusion upstairs in the hospital for an ongoing infection was found to be hypotensive and told to come to the ER for evaluation. Patient's systolic has been above 200. Since she's been under observation here. She says she feels okay. She wants to go home and gait. Her troponin was negative. Chemistries were done and they are consistent with her chronic renal insufficiency - Medical Decision Making 12/19/17 21:50 when we repeated her BP it was normotensive pt had negative troponin she will have another infusion of her antibiotics tomorrow <Dorothy Wayne - Last Filed: 12/19/17 21:52>
--- NOTE | 2017-12-19 17:29 | PDOC ---
History of Present Illness - General Chief Complaint: Lightheaded Stated Complaint: DIZZINESS Time Seen by Provider: 12/19/17 16:52 History Source: Patient Exam Limitations: No Limitations - History of Present Illness Initial Comments: 12/19/17 17:27 82F with PMH of L toe gangrene with osteomyelitis, IDDM, hypothyoidism, CABG, HTN, HLD, CAD p/w productive cough (white phlegm), SOB, CP due to cough x4d admitted for CHF exacerbation on the 12/16, discharged today. Note by attending hospitalist: - called by RN on . patient received her ceftriaxone infusin . her SBP in 80s. pt has dizziness but per daughter chronic. she did not pick her prescribed meds yet ( did not take ramipril ) . RN advised to send pt to ER to get evaluated. If sent home form ER, she was advised not to take ramipril . Patient in triage hypotensive 66/34. Here in ed 120/50 on left arm and 110/50 on right arm. Patient only complaint is dizziness which is chronic according to daughter. 12/19/17 17:51 Past History - Past Medical History Allergies/Adverse Reactions: Allergies Allergy/AdvReac Type Severity Reaction Status Date / Time No Known Drug Allergies Allergy Verified 12/19/17 16:42 Home Medications: Ambulatory Orders Aspirin [ASA -] 81 mg PO DAILY 08/20/17 Carvedilol [Coreg -] 12.5 mg PO BID 08/20/17 Levothyroxine [Synthroid -] 88 mcg PO DAILY 08/20/17 Omeprazole 40 mg PO DAILY 08/20/17 Ranolazine [Ranexa] 500 mg PO BID 08/20/17 Gabapentin [Neurontin -] 300 mg PO TID #90 capsule 08/31/17 Atorvastatin Ca [Lipitor] 40 mg PO HS #30 tablet 09/21/17 Polyethylene Glycol 3350 [Miralax 119 gm Btl -] 17 gm PO BID bottle 09/21/17 Insulin Sliding Scale [Novolog Vial Sliding Scale -] See Protocol SQ TIDAC #5 vial 09/22/17 Acetaminophen [Pain Relief] 500 mg PO ASDIR 11/22/17 Insulin Detemir [Levemir Flextouch] 35 unit SQ HS 11/22/17 Repaglinide [Prandin -] 2 mg PO DAILY 11/22/17 Ceftriaxone [Rocephin -] 2 gm IVPB DAILY vial 12/18/17 Docusate Sodium [Colace -] 100 mg PO DAILY #30 capsule 12/18/17 Ezetimibe [Zetia -] 10 mg PO DAILY #30 tablet 12/18/17 Furosemide [Lasix -] 20 mg PO DAILY #30 tablet 12/18/17 Miscellaneous Drug Not In Syst [Outpatient Lab Test] 1 each ASDIR #1 misc Ramipril 2.5 mg PO DAILY #30 capsule 12/18/17 Sennosides [Senna] 2 tab PO DAILY #60 tablet 12/18/17 Anemia: No Asthma: No Cancer: No Cardiac Disorders: Yes CVA: Yes COPD: No CHF: Yes DVT: No Dementia: No Diabetes: Yes GI Disorders: Yes (Ulcers) Disorders: (ulcers) HTN: Yes Hypercholesterolemia: Yes Liver Disease: No Seizures: No Thyroid Disease: No - Surgical History Abdominal Surgery: No Appendectomy: No Cardiac Surgery: Yes (triple bypass) Cholecystectomy: No Lung Surgery: No Neurologic Surgery: No Orthopedic Surgery: Yes (RT ELBOW SX) - Immunization History Immunization Up to Date: No - Suicide/Smoking/Psychosocial Hx Smoking Status: No Smoking History: Unknown if ever smoked Have you smoked in the past 12 months: No Number of Cigarettes Smoked Daily: 0 Hx Alcohol Use: No Drug/Substance Use Hx: No Substance Use Type: None Hx Substance Use Treatment: No Review of Systems - Review of Systems Able to Perform ROS?: Yes Constitutional: No: See HPI HEENTM: No: Symptoms Reported Respiratory: Yes: Cough Cardiac (ROS): No: Symptoms Reported ABD/GI: No: Symptoms Reported : No: Symptoms Reported Musculoskeletal: No: Symptoms Reported Integumentary: No: Symptoms Reported All Other Systems: Reviewed and Negative *Physical Exam - Vital Signs Last Vital Signs Temp Pulse Resp BP Pulse Ox 97.9 F 56 L 18 66/34 99 12/19/17 16:38 12/19/17 16:38 12/19/17 16:38 12/19/17 16:38 12/19/17 16:38 - Physical Exam General Appearance: Yes: Nourished, Appropriately Dressed. No: Apparent Distress HEENT: positive: EOMI, YANETH, Normal ENT Inspection Respiratory/Chest: positive: Crackles (at bases). negative: Chest Tender Cardiovascular: positive: Regular Rhythm, S1, S2, Bradycardia Gastrointestinal/Abdominal: positive: Normal Bowel Sounds, Flat, Soft. negative : Tender Musculoskeletal: positive: Normal Inspection. negative: CVA Tenderness Neurologic: positive: Fully Oriented, Alert, Normal Mood/Affect, Normal Response , Motor Strength 09/25 ED Treatment Course - LABORATORY CBC & Chemistry Diagram: 12/19/17 19:16 - RADIOLOGY Radiology Studies Ordered: Category Date Time Status CHEST X-RAY PORTABLE* [RAD] Stat Radiology 12/19/17 17:06 Taken Medical Decision Making - Medical Decision Making 12/19/17 17:54 EKG ambiguous for inferior infarct, Repeat EKG unchanged from baseline. Will draw cardiac enzymes, check orthostatic vitals. 12/19/17 20:01 Negative troponin. 12/19/17 20:01 ok to DC *DC/Admit/Observation/Transfer Diagnosis at time of Disposition: Hypotensive episode - Discharge Dispostion Disposition: HOME Condition at time of disposition: Improved Decision to Admit order: No - Referrals Referrals: Luz Kaur MD [Primary Care Provider] - - Patient Instructions Printed Discharge Instructions: DI for Orthostatic Hypotension, DI for Hypotension Additional Instructions: Follow up with your primary care provider within the next 2-3 days. Come back to the emergency department for any new, worsening or concerning symptom. - Post Discharge Activity
[2017-12-19 19:44] LABS: ALBUMIN 3.3 g/dl (3.4-5.0); ANION GAP 8 (8-16); BLOOD UREA NITROGEN 45 mg/dL (7-18); CALCIUM 8.8 mg/dL (8.5-10.1); CHLORIDE 94 mmol/L (98-107); CO2 29 mmol/L (21-32); CREATININE 1.5 mg/dL (0.55-1.02); GLUCOSE,RANDOM 92 mg/dL (74-106); POTASSIUM 4.3 mmol/L (3.5-5.1); SGOT/AST 9 U/L (15-37); SGPT/ALT 18 U/L (12-78); SODIUM 131 mmol/L (136-145)
[2017-12-19 19:48] LABS: ALK PHOS 123 U/L (45-117); BILIRUBIN,TOTAL 0.2 mg/dL (0.2-1.0); TOT PROT 7.2 g/dl (6.4-8.2)
[2017-12-19 19:56] VITALS: BP 154/63; PULSE 66
--- NOTE | 2017-12-20 10:15 | EKG ---
Test Reason : Blood Pressure : / mmHG Vent. Rate : 055 BPM Atrial Rate : 055 BPM P-R Int : 174 ms QRS Dur : 090 ms QT Int : 460 ms P-R-T Axes : 055 024 116 degrees QTc Int : 440 ms SINUS BRADYCARDIA WITH PREMATURE VENTRICULAR COMPLEXES VS. FUSION COMPLEX ABNORMAL ECG WHEN COMPARED WITH ECG OF 19-DEC-2017 17:25, VENTRICULAR ECTOPY IS PRESENT Confirmed by RYAN BARBOSA MD ([id number]) on 12/20/2017 10:15:12 AM Referred By: Confirmed By:RYAN BARBOSA MD
--- NOTE | 2017-12-20 10:17 | EKG ---
Test Reason : Blood Pressure : / mmHG Vent. Rate : 054 BPM Atrial Rate : 054 BPM P-R Int : 172 ms QRS Dur : 090 ms QT Int : 458 ms P-R-T Axes : 058 006 116 degrees QTc Int : 434 ms SINUS BRADYCARDIA ABNORMAL ECG WHEN COMPARED WITH ECG OF 19-DEC-2017 16:57, NO SIGNIFICANT CHANGE WAS FOUND Confirmed by RYAN BARBOSA MD ([id number]) on 12/20/2017 10:16:37 AM Referred By: Confirmed By:RYAN BARBOSA MD
== END 2017-12-19 20:08 | disposition home or self-care (01) ==
LOC: JER 16:32
DX: I95.9 Hypotension, unspecified (principal); E11.9 Type 2 diabetes mellitus without complications; E03.9 Hypothyroidism, unspecified; I10 Essential (primary) hypertension; E78.5 Hyperlipidemia, unspecified; I25.10 Atherosclerotic heart disease of native coronary artery without angina pectoris; Z79.4 Long term (current) use of insulin
CPT/HCPCS: 36415; 71045-TC-FY; 80053; 82550; 84484; 93005; 93010; 99282-25

== ENCOUNTER 2017-12-20 09:39 | Day surgery (SDC) | payer MEDICARE, OTHER ==
[2017-12-20 12:19] VITALS: BP 107/53; PULSE 57; TEMP 97.8
== END 2017-12-20 12:00 | disposition home or self-care (01) ==
LOC: JINFUSION 09:39
PROVIDERS: ATTEND Internal Medicine
DX: E11.69 Type 2 diabetes mellitus with other specified complication (principal); L02.612 Cutaneous abscess of left foot; M86.9 Osteomyelitis, unspecified; I70.202 Unspecified atherosclerosis of native arteries of extremities, left leg
CPT/HCPCS: 82962; 96365; G0277

== ENCOUNTER → 2017-12-24 | Day surgery (SDC) | payer OTHER ==
[2017-12-24 10:55] VITALS: BP 123/46; PULSE 62; TEMP 97.8
== END | disposition home or self-care (01) ==
LOC: JINFUSION 08:21
PROVIDERS: ATTEND Internal Medicine
DX: E11.69 Type 2 diabetes mellitus with other specified complication (principal); L02.612 Cutaneous abscess of left foot; M86.9 Osteomyelitis, unspecified; I70.202 Unspecified atherosclerosis of native arteries of extremities, left leg
CPT/HCPCS: 82962; 96365; G0277

== ENCOUNTER 2017-12-25 08:09 | Day surgery (SDC) | payer OTHER ==
[2017-12-25] MEDS ORDERED: CEFTRIAXONE 2 GM in DEXTROSE 5%-WATER 100 ML IVPB ONE (09:45)
[2017-12-25] MEDS ORDERED: DEXTROSE 5%-WATER 100 ML IVPB ONE (09:56)
[2017-12-25 15:21] VITALS: BP 124/58; PULSE 72; TEMP 98.1
== END 2017-12-25 12:00 | disposition home or self-care (01) ==
LOC: JINFUSION 08:09 → J7W 08:11 → JINFUSION 12:00
PROVIDERS: ATTEND Internal Medicine
DX: E11.69 Type 2 diabetes mellitus with other specified complication (principal); L02.612 Cutaneous abscess of left foot; M86.9 Osteomyelitis, unspecified; I70.202 Unspecified atherosclerosis of native arteries of extremities, left leg
CPT/HCPCS: 96365

== ENCOUNTER 2017-12-26 13:47 | Day surgery (SDC) | payer OTHER ==
[2017-12-26] MEDS ORDERED: DEXTROSE 5%-WATER 100 ML IVPB ONE (14:26)
[2017-12-26] MEDS ORDERED: CEFTRIAXONE 2 GM in DEXTROSE 5%-WATER 100 ML IVPB ONE (14:30)
[2017-12-26 15:25] VITALS: BP 125/51; PULSE 72; TEMP 98.9
== END 2017-12-26 15:25 | disposition home or self-care (01) ==
LOC: JINFUSION 13:47 → J7W 13:48 → JINFUSION 15:25
PROVIDERS: ATTEND Internal Medicine
DX: E11.69 Type 2 diabetes mellitus with other specified complication (principal); L02.612 Cutaneous abscess of left foot; M86.9 Osteomyelitis, unspecified; I70.202 Unspecified atherosclerosis of native arteries of extremities, left leg
CPT/HCPCS: 96365; 96366

== ENCOUNTER 2017-12-27 08:44 | Day surgery (SDC) | payer OTHER ==
[2017-12-27 11:20] VITALS: TEMP 97.6
[2017-12-27 12:11] VITALS: BP 127/51; PULSE 59
== END 2017-12-27 11:35 | disposition home or self-care (01) ==
LOC: JINFUSION 08:44
PROVIDERS: ATTEND Internal Medicine
DX: E11.621 Type 2 diabetes mellitus with foot ulcer (principal); L02.612 Cutaneous abscess of left foot; M86.9 Osteomyelitis, unspecified; I70.202 Unspecified atherosclerosis of native arteries of extremities, left leg
CPT/HCPCS: 82962; 96365; G0277

== ENCOUNTER 2017-12-29 08:26 | Day surgery (SDC) | payer OTHER ==
[2017-12-29] MEDS ORDERED: SODIUM CHLORIDE 100 ML IVPB ONE (10:38)
[2017-12-29 10:58] LABS: HEMATOCRIT 38.4 % (32.4-45.2); HEMOGLOBIN 12.9 GM/dL (10.7-15.3); MCH 30.7 pg (25.7-33.7); MCHC 33.5 g/dl (32.0-36.0); MEAN CELL VOLUME 91.4 fl (80-96); MEAN PLT VOLUME 8.6 fl (7.5-11.1); PLATELET COUNT 253 K/MM3 (134-434); RBC 4.21 M/mm3 (3.60-5.2); RDW 14.1 % (11.6-15.6); WHITE BLOOD COUNT 8.7 K/mm3 (4.0-10.0)
[2017-12-29 11:14] VITALS: TEMP 97.8
[2017-12-29 11:51] LABS: ALBUMIN 3.5 g/dl (3.4-5.0); ANION GAP 11 (8-16); BLOOD UREA NITROGEN 21 mg/dL (7-18); CALCIUM 9.2 mg/dL (8.5-10.1); CHLORIDE 97 mmol/L (98-107); CO2 27 mmol/L (21-32); GLUCOSE,RANDOM 298 mg/dL (74-106); POTASSIUM 5.2 mmol/L (3.5-5.1); SODIUM 135 mmol/L (136-145)
[2017-12-29 11:52] VITALS: BP 142/62; PULSE 67
[2017-12-29 11:56] LABS: ALK PHOS 135 U/L (45-117); BILIRUBIN,TOTAL 0.3 mg/dL (0.2-1.0); CREATININE 1.2 mg/dL (0.55-1.02); SGOT/AST 15 U/L (15-37); SGPT/ALT 19 U/L (12-78); TOT PROT 7.3 g/dl (6.4-8.2)
== END 2017-12-29 11:30 | disposition home or self-care (01) ==
LOC: JINFUSION 08:26
PROVIDERS: ATTEND Internal Medicine
DX: E11.621 Type 2 diabetes mellitus with foot ulcer (principal); L02.612 Cutaneous abscess of left foot; M86.9 Osteomyelitis, unspecified
CPT/HCPCS: 36415; 80053; 82962; 85027; 96365; G0277

== ENCOUNTER 2018-01-02 13:36 | Day surgery (SDC) | payer OTHER ==
[2018-01-02] MEDS ORDERED: CEFTRIAXONE 2 GM in DEXTROSE 5%-WATER 100 ML IVPB ONE (14:00)
[2018-01-02] MEDS ORDERED: DEXTROSE 5%-WATER 100 ML IVPB ONE (14:11)
[2018-01-02 15:47] VITALS: BP 132/71; PULSE 72; TEMP 98
== END 2018-01-02 15:00 | disposition home or self-care (01) ==
LOC: JINFUSION 13:36 → J7W 13:37 → JINFUSION 15:00
PROVIDERS: ATTEND Internal Medicine
DX: E11.621 Type 2 diabetes mellitus with foot ulcer (principal); L02.612 Cutaneous abscess of left foot; M86.9 Osteomyelitis, unspecified
CPT/HCPCS: 96365

== ENCOUNTER 2018-01-06 09:05 | Day surgery (SDC) | payer OTHER ==
[2018-01-06] MEDS ORDERED: CEFTRIAXONE 2 GM in DEXTROSE 5%-WATER 100 ML IVPB ONE (09:15)
[2018-01-06] MEDS ORDERED: SODIUM CHLORIDE 100 ML IVPB ONE (10:12)
[2018-01-06 17:41] VITALS: BP 142/74; PULSE 80; TEMP 98.3
== END 2018-01-06 11:05 | disposition home or self-care (01) ==
LOC: JINFUSION 09:05
PROVIDERS: ATTEND Internal Medicine
DX: E11.621 Type 2 diabetes mellitus with foot ulcer (principal); L02.612 Cutaneous abscess of left foot; M86.9 Osteomyelitis, unspecified; E11.51 Type 2 diabetes mellitus with diabetic peripheral angiopathy without gangrene; L97.522 Non-pressure chronic ulcer of other part of left foot with fat layer exposed; Z79.4 Long term (current) use of insulin
CPT/HCPCS: 82962; 96365; G0277; G0463-25

== ENCOUNTER 2018-01-07 08:15 | Day surgery (SDC) | payer OTHER ==
[2018-01-07] MEDS ORDERED: CEFTRIAXONE 2 GM in DEXTROSE 5%-WATER 100 ML IVPB ONE (09:00)
[2018-01-07] MEDS ORDERED: SODIUM CHLORIDE 100 ML IVPB ONE (10:01)
[2018-01-07 10:24] VITALS: TEMP 97.8
[2018-01-07 10:53] VITALS: BP 126/67; PULSE 71
== END 2018-01-07 10:53 | disposition home or self-care (01) ==
LOC: JINFUSION 08:15
PROVIDERS: ATTEND Internal Medicine
DX: E11.621 Type 2 diabetes mellitus with foot ulcer (principal); L02.612 Cutaneous abscess of left foot; M86.9 Osteomyelitis, unspecified
CPT/HCPCS: 82962; 96365; G0277; G0463-25

== ENCOUNTER 2018-01-09 13:59 | Day surgery (SDC) | payer OTHER ==
[2018-01-09] MEDS ORDERED: SODIUM CHLORIDE 100 ML IVPB ONE (14:50)
[2018-01-09 14:56] VITALS: BP 124/90; PULSE 80; TEMP 97.9
[2018-01-09] MEDS ORDERED: CEFTRIAXONE 2 GM in SODIUM CHLORIDE 100 ML IVPB ONE (15:30)
== END 2018-01-09 15:45 | disposition home or self-care (01) ==
LOC: JASU-SURG 13:59 → J7W 14:01 → JASU-SURG 14:21
PROVIDERS: ATTEND Internal Medicine
DX: E11.621 Type 2 diabetes mellitus with foot ulcer (principal); L02.612 Cutaneous abscess of left foot; M86.9 Osteomyelitis, unspecified
CPT/HCPCS: 96365

== ENCOUNTER 2018-01-27 07:46 | Emergency (ER) | payer OTHER ==
[2018-01-27 08:07] VITALS: BMI 30.2
--- NOTE | 2018-01-27 08:27 | PDOC ---
History of Present Illness - General Chief Complaint: Pain, Acute Stated Complaint: PAIN S/P UTI Time Seen by Provider: 01/27/18 07:58 History Source: Family - History of Present Illness Initial Comments: 01/27/18 08:27 Pt is an 82 y/o F with a significant past medical history of IDDM, L toe gangrene w/ osteomyelitis (receiving hyperbarics, finished ABx infusion this past Wednesday), IDDM, hypothyoidism, CABG, HTN, HLD, and CHF presents to [facility] c /o suprapubic pain and dysuria for approximately 1 week. Pain is associated w/ unilateral flank pain and is constant. During this time, pt also c/o a chronic cough that is productive of whitish sputum. Pt endorses b/l upper/lower extremity neuropathic pain most likely 2/2 to her longstanding DM. Denies cp, chou , nausea, vomiting, fever, or chills. Past History - Past Medical History Allergies/Adverse Reactions: Allergies Allergy/AdvReac Type Severity Reaction Status Date / Time No Known Drug Allergies Allergy Verified 01/27/18 07:51 Home Medications: Ambulatory Orders Aspirin [ASA -] 81 mg PO DAILY 08/20/17 Carvedilol [Coreg -] 12.5 mg PO BID 08/20/17 Levothyroxine [Synthroid -] 88 mcg PO DAILY 08/20/17 Omeprazole 40 mg PO DAILY 08/20/17 Ranolazine [Ranexa] 500 mg PO BID 08/20/17 Gabapentin [Neurontin -] 300 mg PO TID #90 capsule 08/31/17 Atorvastatin Ca [Lipitor] 40 mg PO HS #30 tablet 09/21/17 Polyethylene Glycol 3350 [Miralax 119 gm Btl -] 17 gm PO BID bottle 09/21/17 Insulin Sliding Scale [Novolog Vial Sliding Scale -] See Protocol SQ TIDAC #5 vial 09/22/17 Acetaminophen [Pain Relief] 500 mg PO ASDIR 11/22/17 Repaglinide [Prandin -] 2 mg PO DAILY 11/22/17 Docusate Sodium [Colace -] 100 mg PO DAILY #30 capsule 12/18/17 Ramipril 2.5 mg PO DAILY #30 capsule 12/18/17 Nitrofurantoin Monohyd/M-Cryst [Macrobid -] 100 mg PO BID #14 capsule 01/24/18 Phenazopyridine HCl [Pyridium] 200 mg PO BID #4 tablet 01/27/18 Anemia: No Asthma: No Cancer: No Cardiac Disorders: Yes CVA: Yes COPD: No CHF: Yes DVT: No Dementia: No Diabetes: Yes GI Disorders: Yes (Ulcers) Disorders: (ulcers) HTN: Yes Hypercholesterolemia: Yes Liver Disease: No Seizures: No Thyroid Disease: No - Surgical History Abdominal Surgery: No Appendectomy: No Cardiac Surgery: Yes (triple bypass) Cholecystectomy: No Lung Surgery: No Neurologic Surgery: No Orthopedic Surgery: Yes (RT ELBOW SX) - Immunization History Immunization Up to Date: No - Suicide/Smoking/Psychosocial Hx Smoking Status: No Smoking History: Never smoked Have you smoked in the past 12 months: No Number of Cigarettes Smoked Daily: 0 Hx Alcohol Use: No Drug/Substance Use Hx: No Substance Use Type: None Hx Substance Use Treatment: No *Physical Exam - Vital Signs Last Vital Signs Temp Pulse Resp BP Pulse Ox 98.6 F 73 20 134/51 96 01/27/18 07:47 01/27/18 07:47 01/27/18 07:47 01/27/18 07:47 01/27/18 07:47 - Physical Exam Comments: 01/27/18 08:40 GEN- AAOx3 RS- Dec BS at bases CVS- RRR, No MRG S1 S2 ABD- Suprapubic tenderness, Obese EXT- Left foot gangrene(recently finished tx), Onychomycosis both feet, wound right gage ED Treatment Course - LABORATORY CBC & Chemistry Diagram: 01/27/18 08:27 01/27/18 08:27 - RADIOLOGY Radiology Studies Ordered: Category Date Time Status CHEST X-RAY PORTABLE* [RAD] Stat Radiology 01/27/18 08:25 Ordered Medical Decision Making - Medical Decision Making 01/27/18 08:42 Chest X-Ray, CBC, CMP, Urinalysis, Urine culture pending. Abd/Pelvis CT pending Urine Culture pending Urinalysis--Protein 1+, Glucose 2+, Leuk Est Trace. WBC WNL CT Abd/Pelvis --No acute pathology. *DC/Admit/Observation/Transfer Diagnosis at time of Disposition: UTI (urinary tract infection) - Discharge Dispostion Disposition: HOME Condition at time of disposition: Guarded Decision to Admit order: No - Prescriptions Prescriptions: Phenazopyridine HCl [Pyridium] 200 mg PO BID #4 tablet - Referrals Referrals: Luz Kaur MD [Primary Care Provider] - - Patient Instructions - Post Discharge Activity
[2018-01-27 08:48] LABS: EOS % 2.9 % (0-4.5); HEMATOCRIT 37.7 % (32.4-45.2); LYMPH % 32.9 % (8-40); MCH 30.5 pg (25.7-33.7); MCHC 34.6 g/dl (32.0-36.0); MEAN CELL VOLUME 88.1 fl (80-96); MEAN PLT VOLUME 8.1 fl (7.5-11.1); NEUT % 55.2 % (42.8-82.8); PLATELET COUNT 312 K/MM3 (134-434); RBC 4.28 M/mm3 (3.60-5.2); RDW 13.5 % (11.6-15.6); WHITE BLOOD COUNT 9.3 K/mm3 (4.0-10.0)
[2018-01-27 08:51] LABS: URINE APPEARANCE CLEAR; URINE BILIRUBIN NEGATIVE (<2.0 mg/dL); URINE COLOR YELLOW; URINE GLUCOSE (UA) 2+ (NEGATIVE); URINE KETONE NEGATIVE (NEGATIVE); URINE LEUK ESTERASE TRACE (NEGATIVE); URINE NITRITE NEGATIVE (NEGATIVE); URINE UROBILINOGEN NEGATIVE mg/dL (0.2-1.0)
[2018-01-27 08:54] LABS: ALBUMIN 3.8 g/dl (3.4-5.0); ANION GAP 11 MMOL/L (8-16); BILIRUBIN,TOTAL 0.3 mg/dL (0.2-1.0); BLOOD UREA NITROGEN 16 mg/dL (7-18); CALCIUM 9.1 mg/dL (8.5-10.1); CHLORIDE 86 mmol/L (98-107); CO2 28 mmol/L (21-32); CREATININE 1.1 mg/dL (0.55-1.02); GLUCOSE,RANDOM 185 mg/dL (74-106); SGPT/ALT 23 U/L (12-78); SODIUM 125 mmol/L (136-145); TOT PROT 7.9 g/dl (6.4-8.2)
[2018-01-27 08:55] LABS: ALK PHOS 143 U/L (45-117)
[2018-01-27 09:00] LABS: POTASSIUM 4.7 mmol/L (3.5-5.1); SGOT/AST 18 U/L (15-37)
[2018-01-27 09:05] LABS: URINE PROTEIN 1+ (NEGATIVE)
--- NOTE | 2018-01-27 09:07 | PDOC ---
Attending Attestation - Resident Resident Name: RadhaJose - ED Attending Attestation I have performed the following: I have examined & evaluated the patient, The case was reviewed & discussed with the resident, I agree w/resident's findings & plan, Exceptions are as noted - HPI HPI: 01/27/18 09:06 82 y/o F with a significant past medical history of IDDM, L toe gangrene w/ osteomyelitis (receiving hyperbarics, finished ABx infusion this past Wednesday), IDDM, hypothyoidism, CABG, HTN, HLD, and CHF presents to [facility] c/o suprapubic pain and dysuria for approximately 1 week. Symptoms are moderate persistent constant no exacerbating or alleviating factors slight back discomfort no fever chills nausea vomiting ROS: A complete review of 10 out of 10 review of systems is taken and is negative apart from what is previously mentioned below and in the HPI. - Physicial Exam PE: 01/27/18 09:06 Vitals: Triage Vital signs reviewed General Appearance: no acute distress, well nourished well developed, Head: Atraumatic, Neck: Supple;No Nucal rigidity Chest Wall: Nontender Cardiac: Regular rate and rhythym,Lungs: Clear to auscultation bilateral, good air movement bilaterally, Abdomen: Soft, non distended, normal bowel sounds, suprapubic tenderness to palpation Extremities: Full range of motion to all extremities, no cyanosis, clubbing, or edema Skin: Warm and dry, no rashes or lesions, no rash, no petechiae - Medical Decision Making 01/27/18 13:19 82 years old recently diagnosed with UTI with suprapubic discomfort No fever no elevated white blood cell count CT abdomen pelvis demonstrates no acute pathology. We'll recommend continuing Macrobid Pyridium for suprapubic discomfort and follow-up with her PCP. Findings, the need for follow-up and strict return instructions discussed with patient.
[2018-01-27 09:13] LABS: EPI CELLS RARE /HPF (FEW)
[2018-01-27] MEDS ORDERED: SODIUM CHLORIDE 0.9% 1000 ML INFUS.BAG IV ONE (10:13)
[2018-01-27 13:21] VITALS: BP 109/68; PULSE 70; TEMP 97.8
== END 2018-01-27 13:44 | disposition home or self-care (01) ==
LOC: JER 07:46
DX: N39.0 Urinary tract infection, site not specified (principal); I25.10 Atherosclerotic heart disease of native coronary artery without angina pectoris; I11.0 Hypertensive heart disease with heart failure; Z95.1 Presence of aortocoronary bypass graft; E11.9 Type 2 diabetes mellitus without complications; Z79.4 Long term (current) use of insulin; E11.52 Type 2 diabetes mellitus with diabetic peripheral angiopathy with gangrene; I96 Gangrene, not elsewhere classified; E11.69 Type 2 diabetes mellitus with other specified complication; M86.8X7 Other osteomyelitis, ankle and foot; Z86.73 Personal history of transient ischemic attack (TIA), and cerebral infarction without residual deficits; B96.89 Other specified bacterial agents as the cause of diseases classified elsewhere
CPT/HCPCS: 36415; 71045-TC-FY; 74177-TC; 80053; 81003; 81015; 82962; 85025; 87086; 87186; 99285-25; J7030

== ENCOUNTER 2018-02-25 08:55 | Inpatient (IN) | payer OTHER ==
[2018-02-25 10:28] LABS: URINE APPEARANCE CLEAR; URINE BILIRUBIN NEGATIVE (<2.0 mg/dL); URINE COLOR STRAW; URINE GLUCOSE (UA) 3+ (NEGATIVE); URINE KETONE NEGATIVE (NEGATIVE); URINE LEUK ESTERASE NEGATIVE (NEGATIVE); URINE NITRITE NEGATIVE (NEGATIVE); URINE PROTEIN NEGATIVE (NEGATIVE); URINE UROBILINOGEN NEGATIVE mg/dL (0.2-1.0)
[2018-02-25 10:30] LABS: VENOUS PC02 49.2 mmHg (38-52); VENOUS PH 7.37 (7.32-7.42); VENOUS PO2 24.9 mmHg (28-48)
[2018-02-25 10:37] LABS: EOS % 0.6 % (0-4.5); HEMATOCRIT 39.9 % (32.4-45.2); HEMOGLOBIN 13.3 GM/dL (10.7-15.3); LYMPH % 37.4 % (8-40); MCHC 33.4 g/dl (32.0-36.0); MONO % 6.6 % (3.8-10.2); NEUT % 54.4 % (42.8-82.8); PLATELET COUNT 329 K/MM3 (134-434); RBC 4.43 M/mm3 (3.60-5.2); RDW 14.2 % (11.6-15.6); WHITE BLOOD COUNT 8.4 K/mm3 (4.0-10.0)
[2018-02-25 10:53] LABS: ALBUMIN 3.7 g/dl (3.4-5.0); ALK PHOS 138 U/L (45-117); ANION GAP 7 MMOL/L (8-16); BILIRUBIN,TOTAL 0.3 mg/dL (0.2-1); BLOOD UREA NITROGEN 24 mg/dL (7-18); CALCIUM 9.5 mg/dL (8.5-10.1); CHLORIDE 96 mmol/L (98-107); CO2 28 mmol/L (21-32); CREATININE 1.3 mg/dL (0.55-1.3); GLUCOSE,RANDOM 247 mg/dL (74-106); POTASSIUM 4.5 mmol/L (3.5-5.1); SGOT/AST 13 U/L (15-37); SGPT/ALT 23 U/L (13-61); SODIUM 131 mmol/L (136-145); TOT PROT 7.6 g/dl (6.4-8.2)
--- NOTE | 2018-02-25 11:10 | PDOC ---
History of Present Illness <Odessa Whittaker - Last Filed: 02/25/18 13:54> - General History Source: Patient Exam Limitations: No Limitations - History of Present Illness Initial Comments: 02/25/18 11:05 82 yo F h/;o HTN HLD DM CABG here with c/;o llq pain. started one month ago but got acutely worse yesterday around 1 am. no n/v no f/c no mod factors. no radiation. does have urinary frequency. no urgency. no hematuria. no diarrhea does have mild constipations. last bm was small amount yesterday. no cp no sob. no other complaints <Ivonne Lizarraga - Last Filed: 02/25/18 14:28> - General Chief Complaint: Pain Stated Complaint: PAIN Past History <Odessa Whittaker - Last Filed: 02/25/18 13:54> - Past Medical History Anemia: No Asthma: No Cancer: No Cardiac Disorders: Yes CVA: Yes COPD: No CHF: Yes DVT: No Dementia: No Diabetes: Yes GI Disorders: Yes (Ulcers) Disorders: (ulcers) HTN: Yes Hypercholesterolemia: Yes Liver Disease: No Seizures: No Thyroid Disease: No - Surgical History Abdominal Surgery: No Appendectomy: No Cardiac Surgery: Yes (triple bypass) Cholecystectomy: No Lung Surgery: No Neurologic Surgery: No Orthopedic Surgery: Yes (RT ELBOW SX) - Immunization History Immunization Up to Date: No - Suicide/Smoking/Psychosocial Hx Smoking Status: No Smoking History: Never smoked Have you smoked in the past 12 months: No Number of Cigarettes Smoked Daily: 0 Information on smoking cessation initiated: No Hx Alcohol Use: No Drug/Substance Use Hx: No Substance Use Type: None Hx Substance Use Treatment: No <Ivonne Lizarraga - Last Filed: 02/25/18 14:28> - Past Medical History Allergies/Adverse Reactions: Allergies Allergy/AdvReac Type Severity Reaction Status Date / Time No Known Drug Allergies Allergy Verified 02/25/18 08:59 Home Medications: Ambulatory Orders Aspirin [ASA -] 81 mg PO DAILY 08/20/17 Carvedilol [Coreg -] 12.5 mg PO BID 08/20/17 Levothyroxine [Synthroid -] 88 mcg PO DAILY 08/20/17 Omeprazole 40 mg PO DAILY 08/20/17 Ranolazine [Ranexa] 500 mg PO BID 08/20/17 Atorvastatin Ca [Lipitor] 40 mg PO HS #30 tablet 09/21/17 Repaglinide [Prandin -] 2 mg PO DAILY 11/22/17 Ramipril 2.5 mg PO DAILY #30 capsule 12/18/17 Gabapentin [Neurontin -] 600 mg PO TID 02/25/18 Insulin Aspart Prot/Insuln Asp [Novolog Mix 70-30 Flexpen Syrn] 25 unit SQ BID 02/25/18 Insulin Detemir [Levemir Flextouch] 35 unit SQ HS 02/25/18 Review of Systems - Review of Systems Constitutional: No: Chills, Diaphoresis HEENTM: No: Eye Pain Respiratory: No: Cough, Orthopnea, Shortness of Breath ABD/GI: Yes: Constipated, Other (abd pain). No: Vomiting, Indigestion Musculoskeletal: No: Back Pain All Other Systems: Reviewed and Negative <Ivonne Lizarraga - Last Filed: 02/25/18 14:28> *Physical Exam - Vital Signs Last Vital Signs Temp Pulse Resp BP Pulse Ox 97.4 F L 70 17 119/54 L 97 02/25/18 13:09 02/25/18 13:09 02/25/18 13:09 02/25/18 13:09 02/25/18 13:09 <Odessa Whittaker - Last Filed: 02/25/18 13:54> - Vital Signs Last Vital Signs Temp Pulse Resp BP Pulse Ox 97.7 F 79 16 148/97 100 02/25/18 08:59 02/25/18 08:59 02/25/18 08:59 02/25/18 08:59 02/25/18 08:59 - Physical Exam Comments: 02/25/18 11:08 awake alert lungs clear bilaterally. heart rrr no mrg. abd soft mild llq left mid quad ttp. no rebound no guarding. no cva tenderness. skin warm and dry.nnuero oriented x 3. <Ivonne Lizarraga - Last Filed: 02/25/18 14:28> ED Treatment Course - LABORATORY CBC & Chemistry Diagram: 02/25/18 10:15 02/25/18 10:15 - ADDITIONAL ORDERS Additional order review: Laboratory Results 02/25/18 02/25/18 02/25/18 12:15 10:15 10:15 VBG pH 7.37 POC VBG pCO2 49.2 POC VBG pO2 24.9 L D Mixed VBG HCO3 27.9 H Sodium Potassium Chloride Carbon Dioxide Anion Gap BUN Creatinine Creat Clearance w eGFR Random Glucose Lactic Acid 1.6 2.3 H* Calcium Total Bilirubin AST ALT Alkaline Phosphatase Creatine Kinase Troponin I Total Protein Albumin Urine Color Urine Appearance Urine pH Ur Specific [place] Urine Protein Urine Glucose (UA) Urine Ketones Urine Blood Urine Nitrite Urine Bilirubin Urine Urobilinogen Ur Leukocyte Esterase 02/25/18 02/25/18 10:15 09:36 VBG pH POC VBG pCO2 POC VBG pO2 Mixed VBG HCO3 Sodium 131 L Potassium 4.5 Chloride 96 L Carbon Dioxide 28 Anion Gap 7 L BUN 24 H Creatinine 1.3 Creat Clearance w eGFR 39.21 Random Glucose 247 H Lactic Acid Calcium 9.5 Total Bilirubin 0.3 AST 13 L ALT 23 Alkaline Phosphatase 138 H Creatine Kinase 69 Troponin I < 0.02 Total Protein 7.6 Albumin 3.7 Urine Color Straw Urine Appearance Clear Urine pH 7.0 Ur Specific [place] 1.010 Urine Protein Negative Urine Glucose (UA) 3+ H Urine Ketones Negative Urine Blood Negative Urine Nitrite Negative Urine Bilirubin Negative Urine Urobilinogen Negative Ur Leukocyte Esterase Negative 02/25/18 10:15 RBC 4.43 MCV 90.0 MCHC 33.4 RDW 14.2 MPV 8.0 Neutrophils % 54.4 D Lymphocytes % 37.4 Monocytes % 6.6 Eosinophils % 0.6 Basophils % 1.0 - Medications Given in the ED: ED Medications Discontinued Medications Generic Name Dose Route Start Last Admin Trade Name Freq PRN Reason Stop Dose Admin Aspirin 162 mg 02/25/18 12:14 02/25/18 12:52 Asa - PO 02/25/18 12:15 162 mg ONCE ONE Administration Magnesium Citrate 300 ml 02/25/18 12:08 02/25/18 12:37 Citroma - PO 02/25/18 12:09 300 ml ONCE ONE Administration Sodium Chloride 1,000 ml 02/25/18 11:16 02/25/18 11:44 Normal Saline - IV 02/25/18 11:17 1,000 ml ONCE ONE Administration Sodium Phosphate 133 ml 02/25/18 12:09 02/25/18 12:37 Fleet Adult Rectal Enema - [place] 02/25/18 12:10 133 ml ONCE ONE Administration <Odessa Whittaker - Last Filed: 02/25/18 13:54> - LABORATORY CBC & Chemistry Diagram: 02/25/18 10:15 02/25/18 10:15 - ADDITIONAL ORDERS Additional order review: Laboratory Results 02/25/18 02/25/18 02/25/18 10:15 10:15 10:15 VBG pH 7.37 POC VBG pCO2 49.2 POC VBG pO2 24.9 L D Mixed VBG HCO3 27.9 H Sodium 131 L Potassium 4.5 Chloride 96 L Carbon Dioxide 28 Anion Gap 7 L BUN 24 H Creatinine 1.3 Creat Clearance w eGFR 39.21 Random Glucose 247 H Lactic Acid 2.3 H* Calcium 9.5 Total Bilirubin 0.3 AST 13 L ALT 23 Alkaline Phosphatase 138 H Total Protein 7.6 Albumin 3.7 Urine Color Urine Appearance Urine pH Ur Specific [place] Urine Protein Urine Glucose (UA) Urine Ketones Urine Blood Urine Nitrite Urine Bilirubin Urine Urobilinogen Ur Leukocyte Esterase 02/25/18 09:36 VBG pH POC VBG pCO2 POC VBG pO2 Mixed VBG HCO3 Sodium Potassium Chloride Carbon Dioxide Anion Gap BUN Creatinine Creat Clearance w eGFR Random Glucose Lactic Acid Calcium Total Bilirubin AST ALT Alkaline Phosphatase Total Protein Albumin Urine Color Straw Urine Appearance Clear Urine pH 7.0 Ur Specific [place] 1.010 Urine Protein Negative Urine Glucose (UA) 3+ H Urine Ketones Negative Urine Blood Negative Urine Nitrite Negative Urine Bilirubin Negative Urine Urobilinogen Negative Ur Leukocyte Esterase Negative 02/25/18 10:15 RBC 4.43 MCV 90.0 MCHC 33.4 RDW 14.2 MPV 8.0 Neutrophils % 54.4 D Lymphocytes % 37.4 Monocytes % 6.6 Eosinophils % 0.6 Basophils % 1.0 - RADIOLOGY Radiology Studies Ordered: Category Date Time Status ABDOMEN & PELVIS CT WITH CONTR [CT] Stat CT Scan 02/25/18 10:01 Ordered <Ivonne Lizarraga - Last Filed: 02/25/18 14:28> Medical Decision Making - Medical Decision Making 02/25/18 13:54 Dr. Connors called at 12:19 pm. Spoke with Kayla, who faxed over patients cardiology information. Call placed to [facility] 12:34, , to get more information about patients editorial intern. [facility] Patient states she want a family member present while she signs the patient information release form. <Odessa Whittaker - Last Filed: 02/25/18 13:54> - Medical Decision Making 02/25/18 11:09 82 yo htn hld dm cabg with llq pain. mild llq ttp on exam. differential constipation. uti pyelo, aaa, ovarian pathology. plan ct a/p ua labd ekg. will offer tylenol for pain control. reassess. <Ivonne Lizarraga - Last Filed: 02/25/18 14:28> *DC/Admit/Observation/Transfer <Odessa Whittaker - Last Filed: 02/25/18 13:54> - Discharge Dispostion Decision to Admit order: Yes <Ivonne Lizarraga - Last Filed: 02/25/18 14:28> Diagnosis at time of Disposition: EKG abnormalities, Abdominal pain, Constipation - Referrals Referrals: Luz Kaur MD [Primary Care Provider] - - Patient Instructions - Post Discharge Activity
[2018-02-25] MEDS ORDERED: SODIUM CHLORIDE 0.9% 1000 ML INFUS.BAG IV ONE (11:16)
[2018-02-25] MEDS ORDERED: MAGNESIUM CITRATE 300 ML BOTTLE PO ONE (12:08)
[2018-02-25] MEDS ORDERED: SODIUM PHOSPHATE/NA BIPHOS 133 ML ENEMA PR ONE (12:09)
[2018-02-25] MEDS ORDERED: ASPIRIN 81 MG CHEWABLE TABLETS PO ONE (12:14)
[2018-02-25] MEDS ORDERED: MAGNESIUM CITRATE 300 ML BOTTLE ONE (12:16)
[2018-02-25] MEDS ORDERED: ASPIRIN 81 MG CHEWABLE TABLETS ONE (12:45)
[2018-02-25] MEDS ORDERED: POLYETHYLENE GLYCOL 3350 119 GM BTL PO ONE (14:08)
[2018-02-25] MEDS ORDERED: BISACODYL 10 MG SUPP.RECT RC ONE (14:09)
--- NOTE | 2018-02-25 14:14 | HP ---
CHIEF COMPLAINT:abdominal pain PCP:Waylon Zhu HISTORY OF PRESENT ILLNESS: 82F extensive cardiac history listed below presents to the hospital with a chief complaint of LLQ abdominal pain. Patient initially presented with the daughter but she left to go to work and i tried calling her 3 times and she did not answer. Patient spoken to with [employer] assistant principal # [id number] but patient did not want to speak anymore after about 2 questions and she put the phone down. Patient did endorse having vaginal pain and pain after she urinates. She also endorses abdominal pain and being constipated and that was about the extent of the conversation with the elementary assistant principal. ER noticed some minor EKG changes when compared to rpior and attempted to get cardiac history and chart from [facility] but patient refused to sign release until daughter gets back. She denies nausea vomiting fever chills chest pain or shortness of breath. Per PMD note she has chronic vaginitis and she always has pain afer urinating. [facility] diagnostic cath reports sent from PMD but incomplete. Meds verified with PMD note. She was noted to have elevated lactic acid which resolved with IVF. Echo 12/17/2017: mod reduction in LVEF. Consistent with diastolic dysfunction ER course was notable for: (1)CTAP (2)IVF (3)Labs EKG Recent Travel:Denies PAST MEDICAL HISTORY:HTN, HLD, DM, CAD, combined systolic and diastolic CHF, GERD,hypothyroidism, neuropathy, urinary incontinence, chronic vaginitis, osteomyelitis of left great toe s/p long-term ABx, Dementia PAST SURGICAL HISTORY:CABG amputation of Social History: Smoking:Denies Alcohol:Denies Drugs: Denies Family History:does not remember Allergies No Known Drug Allergies Allergy (Verified 02/25/18 08:59) HOME MEDICATIONS: Home Medications Medication Instructions Recorded Aspirin [ASA -] 81 mg PO DAILY 08/20/17 Carvedilol [Coreg -] 12.5 mg PO BID 08/20/17 Levothyroxine [Synthroid -] 88 mcg PO DAILY 08/20/17 Omeprazole 40 mg PO DAILY 08/20/17 Ranolazine [Ranexa] 500 mg PO BID 08/20/17 Atorvastatin Ca [Lipitor] 40 mg PO HS #30 tablet 09/21/17 Repaglinide [Prandin -] 2 mg PO DAILY 11/22/17 Ramipril 2.5 mg PO DAILY #30 capsule 12/18/17 Gabapentin [Neurontin -] 600 mg PO TID 02/25/18 Insulin Aspart Prot/Insuln Asp 25 unit SQ BID 02/25/18 [Novolog Mix 70-30 Flexpen Syrn] Insulin Detemir [Levemir Flextouch] 35 unit SQ HS 02/25/18 REVIEW OF SYSTEMS CONSTITUTIONAL: Absent: fever, chills, diaphoresis, generalized weakness, malaise, loss of appetite, weight change Present: Decreased fluid intake HEENT: Absent: rhinorrhea, nasal congestion, throat pain, throat swelling, difficulty swallowing, mouth swelling, ear pain, eye pain, visual changes CARDIOVASCULAR: Absent: chest pain, syncope, palpitations, irregular heart rate, lightheadedness , peripheral edema RESPIRATORY: Absent: cough, shortness of breath, dyspnea with exertion, orthopnea, wheezing, stridor, hemoptysis GASTROINTESTINAL: Absent: abdominal distension, nausea, vomiting, diarrhea, melena, hematochezia Present: constipation, abdominal pain GENITOURINARY: Absent: frequency, urgency, hesitancy, hematuria, flank pain, genital pain Present: chronic dysuria, chronic vaginal pain MUSCULOSKELETAL: Absent: myalgia, arthralgia, joint swelling, back pain, neck pain SKIN: Absent: rash, itching, pallor HEMATOLOGIC/IMMUNOLOGIC: Absent: easy bleeding, easy bruising, lymphadenopathy, frequent infections ENDOCRINE: Absent: unexplained weight gain, unexplained weight loss, heat intolerance, cold intolerance NEUROLOGIC: Absent: headache, focal weakness or paresthesias, dizziness, unsteady gait, seizure, mental status changes, bladder or bowel incontinence PSYCHIATRIC: Absent: anxiety, depression, suicidal or homicidal ideation, hallucinations. PHYSICAL EXAMINATION Vital Signs - 24 hr 02/25/18 02/25/18 08:59 13:09 Temperature 97.7 F 97.4 F L Pulse Rate 79 Pulse Rate [ 70 Right Radial] Respiratory 16 17 Rate Blood Pressure 148/97 Blood Pressure 119/54 L [Left Arm] O2 Sat by Pulse 100 97 Oximetry (%) GENERAL: Awake, alert, and orientated to self and place not time, in no acute distress. HEAD: Normal with no signs of trauma. EYES: Pupils equal, round and reactive to light, extraocular movements intact EARS, NOSE, THROAT: Dry mucous membranes. NECK: Normal range of motion, supple without JVD LUNGS: Breath sounds equal, clear to auscultation bilaterally.. HEART: Regular rate and rhythm, normal S1 and S2 ABDOMEN: Soft, mildly TTP infraumbilically, not distended, hypoactive bowel sounds MUSCULOSKELETAL: No CVA tenderness. UPPER EXTREMITIES: warm, well-perfused. LOWER EXTREMITIES: warm, well-perfused. No calf tenderness. No peripheral edema. Left foot great toe with well healed small puncture lesion at the tip of the left great toe. NEUROLOGICAL: Cranial nerves II-XII intact. Normal speech. Normal gait. PSYCHIATRIC: Cooperative. Good eye contact. Appropriate mood and affect. SKIN: Warm, dry, normal turgor, no rashes or lesions noted, normal capillary refill. Laboratory Results - last 24 hr 02/25/18 02/25/18 02/25/18 09:36 10:15 10:15 WBC 8.4 RBC 4.43 Hgb 13.3 Hct 39.9 MCV 90.0 MCH 30.0 MCHC 33.4 RDW 14.2 Plt Count 329 MPV 8.0 Absolute Neuts (auto) 4.6 Neutrophils % 54.4 D Lymphocytes % 37.4 Monocytes % 6.6 Eosinophils % 0.6 Basophils % 1.0 Nucleated RBC % 0 VBG pH POC VBG pCO2 POC VBG pO2 Mixed VBG HCO3 Sodium 131 L Potassium 4.5 Chloride 96 L Carbon Dioxide 28 Anion Gap 7 L BUN 24 H Creatinine 1.3 Creat Clearance w eGFR 39.21 Random Glucose 247 H Lactic Acid Calcium 9.5 Total Bilirubin 0.3 AST 13 L ALT 23 Alkaline Phosphatase 138 H Creatine Kinase 69 Troponin I < 0.02 Total Protein 7.6 Albumin 3.7 Urine Color Straw Urine Appearance Clear Urine pH 7.0 Ur Specific [place] 1.010 Urine Protein Negative Urine Glucose (UA) 3+ H Urine Ketones Negative Urine Blood Negative Urine Nitrite Negative Urine Bilirubin Negative Urine Urobilinogen Negative Ur Leukocyte Esterase Negative 02/25/18 02/25/18 02/25/18 10:15 10:15 12:15 WBC RBC Hgb Hct MCV MCH MCHC RDW Plt Count MPV Absolute Neuts (auto) Neutrophils % Lymphocytes % Monocytes % Eosinophils % Basophils % Nucleated RBC % VBG pH 7.37 POC VBG pCO2 49.2 POC VBG pO2 24.9 L D Mixed VBG HCO3 27.9 H Sodium Potassium Chloride Carbon Dioxide Anion Gap BUN Creatinine Creat Clearance w eGFR Random Glucose Lactic Acid 2.3 H* 1.6 Calcium Total Bilirubin AST ALT Alkaline Phosphatase Creatine Kinase Troponin I Total Protein Albumin Urine Color Urine Appearance Urine pH Ur Specific [place] Urine Protein Urine Glucose (UA) Urine Ketones Urine Blood Urine Nitrite Urine Bilirubin Urine Urobilinogen Ur Leukocyte Esterase 02/25/18 12:58 WBC RBC Hgb Hct MCV MCH MCHC RDW Plt Count MPV Absolute Neuts (auto) Neutrophils % Lymphocytes % Monocytes % Eosinophils % Basophils % Nucleated RBC % VBG pH POC VBG pCO2 POC VBG pO2 Mixed VBG HCO3 Sodium Potassium Chloride Carbon Dioxide Anion Gap BUN Creatinine Creat Clearance w eGFR Random Glucose Lactic Acid 2.1 H Calcium Total Bilirubin AST ALT Alkaline Phosphatase Creatine Kinase Troponin I Total Protein Albumin Urine Color Urine Appearance Urine pH Ur Specific [place] Urine Protein Urine Glucose (UA) Urine Ketones Urine Blood Urine Nitrite Urine Bilirubin Urine Urobilinogen Ur Leukocyte Esterase EKG: NSR: Mostly unchanged from prior. Small ST depression in V5 and V6 which may be slightly more pronounced from prior. CTAP: Moderate amount of constipation Echo 12/17/2017: mod reduction in LVEF. Consistent with diastolic dysfunction ASSESSMENT/PLAN: 82F with multiple medical proglems presents t the ER with LLQ abdominal pain found to have constipation and given extensive cardiac history of small EKG changes will observe on telemetry. LLQ pain: From constipation Place on OBS Telemetry aggressive bowel regimen Received enema in ER R/O ACS as cause for abdominal pain: Will repeat troponin if negative will stop trending troponin already negative x1 low suspicion for ACS Lactic acidosis:metformin use could be contributing in addition to mild volume depletion Resolved Stop Trending HTN: Restart Ramipril Restart Coreg CAD: s/p diagnostic cath s/p CABG Continue aspirin 81g po daily continue rampipril continue coreg continue ranexa Continue lipitor DM: Restart home dose of Levemir 35 units HS ISS TIDAC BGM ACHS Restart Prandin Hold Metformin for now HbA1C in system from 2 weeks ago 8.5% Hypothyroidism: Restart synthroid 88mcg po QAM history of osteomyelitis of left great Toe: Treated GERD: Continue PPI on formulary diastolic/systolic CHF not in exacerbation Restart Coreg restart rampipril monitor I/O Echo from 12/17/2017 noted monitor I/O CKD: Patient's baseline seems to be 1.1-1.2 current Cr 1.3 will trend FEN: Hold further IVF aready received 1L NS Bolus in ED would be cautious with further fluids No electrolyte issues diabetic/Cardiac diet PPx: HSQ/SCDs PPI PT consult Case discussed with attending Dr. Fulton attempted to reach daughter 3 times and failed phone number is [phone] Visit type - Emergency Visit Emergency Visit: Yes ED Registration Date: 02/25/18 Care time: The patient presented to the Emergency Department on the above date and was hospitalized for further evaluation of their emergent condition. - New Patient This patient is new to me today: Yes Date on this admission: 02/25/18 - Critical Care Critical Care patient: No
--- NOTE | 2018-02-25 15:49 | PN ---
Teaching Attending Note Name of Resident: Ran Jasso ATTENDING PHYSICIAN STATEMENT I saw and evaluated the patient. I reviewed the resident's note and discussed the case with the resident. I agree with the resident's findings and plan as documented. SUBJECTIVE: This is an 82 year old woman with a history of CAD, CABG, HTN, hyperlipidemia, CHF, type 2 DM, GERD, hypothyroidism, left 1st toe osteomyelitis , dementia, chronic vaginitis who comes to the ED complaining of LLQ pain. She is not able to provide much history. She reports having chronic vaginal pain, pain after urinating, and constipation. OBJECTIVE: Vital Signs Period Temp Pulse Resp BP Sys/Ibarra Pulse Ox Last 24 Hr 97.4 F-97.7 F 70-79 16-17 119-148/54-97 97-100 GENERAL: No distress. Alert, oriented to person. HEENT: Dry mucous membranes HEART: S1S2, RRR LUNGS: Clear ABDOMEN: Mild lower abdominal tenderness EXTREMITIES: no edema Laboratory Tests 02/25/18 02/25/18 02/25/18 09:36 10:15 10:15 WBC 8.4 RBC 4.43 Hgb 13.3 Hct 39.9 MCV 90.0 MCH 30.0 MCHC 33.4 RDW 14.2 Plt Count 329 MPV 8.0 Absolute Neuts (auto) 4.6 Neutrophils % 54.4 D Lymphocytes % 37.4 Monocytes % 6.6 Eosinophils % 0.6 Basophils % 1.0 Nucleated RBC % 0 VBG pH POC VBG pCO2 POC VBG pO2 Mixed VBG HCO3 Sodium 131 L Potassium 4.5 Chloride 96 L Carbon Dioxide 28 Anion Gap 7 L BUN 24 H Creatinine 1.3 Creat Clearance w eGFR 39.21 Random Glucose 247 H Lactic Acid Calcium 9.5 Total Bilirubin 0.3 AST 13 L ALT 23 Alkaline Phosphatase 138 H Creatine Kinase 69 Troponin I < 0.02 Total Protein 7.6 Albumin 3.7 Urine Color Straw Urine Appearance Clear Urine pH 7.0 Ur Specific [place] 1.010 Urine Protein Negative Urine Glucose (UA) 3+ H Urine Ketones Negative Urine Blood Negative Urine Nitrite Negative Urine Bilirubin Negative Urine Urobilinogen Negative Ur Leukocyte Esterase Negative 02/25/18 02/25/18 02/25/18 10:15 10:15 12:15 WBC RBC Hgb Hct MCV MCH MCHC RDW Plt Count MPV Absolute Neuts (auto) Neutrophils % Lymphocytes % Monocytes % Eosinophils % Basophils % Nucleated RBC % VBG pH 7.37 POC VBG pCO2 49.2 POC VBG pO2 24.9 L D Mixed VBG HCO3 27.9 H Sodium Potassium Chloride Carbon Dioxide Anion Gap BUN Creatinine Creat Clearance w eGFR Random Glucose Lactic Acid 2.3 H* 1.6 Calcium Total Bilirubin AST ALT Alkaline Phosphatase Creatine Kinase Troponin I Total Protein Albumin Urine Color Urine Appearance Urine pH Ur Specific [place] Urine Protein Urine Glucose (UA) Urine Ketones Urine Blood Urine Nitrite Urine Bilirubin Urine Urobilinogen Ur Leukocyte Esterase 02/25/18 12:58 WBC RBC Hgb Hct MCV MCH MCHC RDW Plt Count MPV Absolute Neuts (auto) Neutrophils % Lymphocytes % Monocytes % Eosinophils % Basophils % Nucleated RBC % VBG pH POC VBG pCO2 POC VBG pO2 Mixed VBG HCO3 Sodium Potassium Chloride Carbon Dioxide Anion Gap BUN Creatinine Creat Clearance w eGFR Random Glucose Lactic Acid 2.1 H Calcium Total Bilirubin AST ALT Alkaline Phosphatase Creatine Kinase Troponin I Total Protein Albumin Urine Color Urine Appearance Urine pH Ur Specific [place] Urine Protein Urine Glucose (UA) Urine Ketones Urine Blood Urine Nitrite Urine Bilirubin Urine Urobilinogen Ur Leukocyte Esterase Home Medications Medication Instructions Recorded Aspirin [ASA -] 81 mg PO DAILY 08/20/17 Carvedilol [Coreg -] 12.5 mg PO BID 08/20/17 Levothyroxine [Synthroid -] 88 mcg PO DAILY 08/20/17 Omeprazole 40 mg PO DAILY 08/20/17 Ranolazine [Ranexa] 500 mg PO BID 08/20/17 Atorvastatin Ca [Lipitor] 40 mg PO HS #30 tablet 09/21/17 Repaglinide [Prandin -] 2 mg PO DAILY 11/22/17 Ramipril 2.5 mg PO DAILY #30 capsule 12/18/17 Gabapentin [Neurontin -] 600 mg PO TID 02/25/18 Insulin Aspart Prot/Insuln Asp 25 unit SQ BID 02/25/18 [Novolog Mix 70-30 Flexpen Syrn] Insulin Detemir [Levemir Flextouch] 35 unit SQ HS 02/25/18 ASSESSMENT AND PLAN: This is an 82 year old woman with a history of CAD, CABG, HTN, hyperlipidemia, CHF, type 2 DM, GERD, hypothyroidism, left 1st toe osteomyelitis, dementia, chronic vaginitis, constipation who presented to the ED with LLQ pain and was found to have abnormal EKG. 1. Abdominal pain secondary to chronic vaginitis and constipation - Treat constipation - Monitor abdominal exam 2. Abnormal EKG - Patient has at baseline an abnormal EKG - Observe on telemetry - Repeat troponin 3. Lactic acidemia - Secondary to dehydration, metformin - Hold metformin - Improved with IV fluid, then increased again - Continue cautious hydration - Monitor lactic acid, abdominal exam 4. CAD, history of CABG - Continue aspirin, Coreg, Lipitor, Ranexa 5. HTN - Continue Coreg, Altace 6. Hyperlipidemia - Continue Lipitor 7. Chronic systolic and diastolic heart failure - Stable - Continue Coreg, Altace 8. Hypothyroidism - Continue Synthroid 9. Type 2 DM with peripheral neuropathy - Hold metformin secondary to lactic acidemia - Continue Levemir, Prandin, Neurontin - Fingersticks with Novolog sliding scale 10. GERD - Continue Prilosec 11. Dementia
[2018-02-25] MEDS ORDERED: DOCUSATE SODIUM 100 MG CAPSULE (FP) PO ONE (17:22)
[2018-02-25] MEDS ORDERED: INSULIN (NOVOLOG) ASPART 100 UNITS/ML 10ML VIAL ONE (17:23)
[2018-02-25] MEDS: DOCUSATE SODIUM 100 MG CAPSULE (FP) PO SCH ×2 (17:29→23:03)
[2018-02-25] MEDS: INSULIN SLIDING SCALE (NOVOLOG) 1 VIAL SQ SCH (17:29)
[2018-02-25 21:42] VITALS: BMI 30.4
[2018-02-25] MEDS ORDERED: INSULIN DETEMIR 35 UNIT SQ SCH (22:00)
[2018-02-25] MEDS: SENNOSIDES 8.6MG TABLET (FP) PO SCH (23:03)
[2018-02-25] MEDS: CARVEDILOL 12.5 MG TABLET (FP) PO SCH (23:03)
[2018-02-25] MEDS: ATORVASTATIN CA 40 MG TABLET (FP) PO SCH (23:03)
[2018-02-25] MEDS: HEPARIN NA (PORCINE) 5,000 UNITS/ML 1ML VIAL SQ SCH (23:03)
[2018-02-25] MEDS: RANOLAZINE E.R. 500 MG TABLET (FP) PO SCH (23:03)
[2018-02-25] MEDS: INSULIN (LEVEMIR) 100 UNITS/ML UNITS SQ SCH (23:10)
[2018-02-26] MEDS: DOCUSATE SODIUM 100 MG CAPSULE (FP) PO SCH ×3 (06:52→22:18)
[2018-02-26] MEDS: INSULIN SLIDING SCALE (NOVOLOG) 1 VIAL SQ SCH ×3 (06:52→16:54)
[2018-02-26] MEDS: LEVOTHYROXINE NA 88 MCG TABLET (FP) PO SCH (06:52)
[2018-02-26] MEDS: HEPARIN NA (PORCINE) 5,000 UNITS/ML 1ML VIAL SQ SCH ×3 (06:53→22:19)
[2018-02-26 08:21] LABS: ANION GAP 8 MMOL/L (8-16); BLOOD UREA NITROGEN 22 mg/dL (7-18); CALCIUM 8.8 mg/dL (8.5-10.1); CHLORIDE 97 mmol/L (98-107); CO2 28 mmol/L (21-32); CREATININE 1.1 mg/dL (0.55-1.3); GLUCOSE,RANDOM 273 mg/dL (74-106); MAGNESIUM 2.7 mg/dL (1.8-2.4); PHOSPHOROUS 3.1 mg/dL (2.5-4.9); POTASSIUM 5.1 mmol/L (3.5-5.1); SODIUM 133 mmol/L (136-145)
[2018-02-26] MEDS ORDERED: PT OWN MED DRAWER 7, Y5N ONE (09:20)
[2018-02-26] MEDS: RANOLAZINE E.R. 500 MG TABLET (FP) PO SCH ×2 (09:45→22:18)
[2018-02-26] MEDS: CARVEDILOL 12.5 MG TABLET (FP) PO SCH ×2 (09:45→22:18)
[2018-02-26] MEDS: RAMIPRIL 2.5 MG CAPSULE (FP) PO SCH (09:46)
[2018-02-26] MEDS: SENNOSIDES 8.6MG TABLET (FP) PO SCH ×2 (09:46→22:19)
[2018-02-26] MEDS: POLYETHYLENE GLYCOL 3350 119 GM BTL PO SCH (09:46)
[2018-02-26] MEDS: ASPIRIN 81 MG CHEWABLE TABLETS PO SCH (09:46)
[2018-02-26] MEDS: PANTOPRAZOLE 40 MG TABLET (FP) PO SCH (09:46)
--- NOTE | 2018-02-26 09:58 | PN ---
Physical Exam: SUBJECTIVE: Patient seen and examined. urdu speaking. offered no complaints, abdominal pain has improved. states she had 2 BM's last night. denied chest pain, abdominal pain. OBJECTIVE: Vital Signs Period Temp Pulse Resp BP Sys/Ibarra Pulse Ox Last 24 Hr 97.4 F-98.8 F 59-90 17-20 109-171/43-82 96-98 GENERAL: The patient is awake, alert, in no acute distress. EYES: PERRL, extraocular movements intact, sclera anicteric, conjunctiva clear. No ptosis. ENT: oropharynx clear without exudates, moist mucous membranes. NECK: Trachea midline, full range of motion, supple. no jvd LUNGS: Breath sounds equal, clear to auscultation bilaterally, no wheezes, no crackles, no accessory muscle use. HEART: Regular rate and rhythm, S1, S2 with murmur, ABDOMEN: obese, Soft, nontender, nondistended, normoactive bowel sounds, no guarding, no rebound, EXTREMITIES: 2+ radial pulses, warm, well-perfused, no edema. 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, facial symmetry Laboratory Results - last 24 hr 02/25/18 02/25/18 02/25/18 09:36 10:15 10:15 WBC 8.4 RBC 4.43 Hgb 13.3 Hct 39.9 MCV 90.0 MCH 30.0 MCHC 33.4 RDW 14.2 Plt Count 329 MPV 8.0 Absolute Neuts (auto) 4.6 Neutrophils % 54.4 D Lymphocytes % 37.4 Monocytes % 6.6 Eosinophils % 0.6 Basophils % 1.0 Nucleated RBC % 0 VBG pH POC VBG pCO2 POC VBG pO2 Mixed VBG HCO3 Sodium 131 L Potassium 4.5 Chloride 96 L Carbon Dioxide 28 Anion Gap 7 L BUN 24 H Creatinine 1.3 Creat Clearance w eGFR 39.21 POC Glucometer Random Glucose 247 H Lactic Acid Calcium 9.5 Phosphorus Magnesium Total Bilirubin 0.3 AST 13 L ALT 23 Alkaline Phosphatase 138 H Creatine Kinase 69 Troponin I < 0.02 Total Protein 7.6 Albumin 3.7 Urine Color Straw Urine Appearance Clear Urine pH 7.0 Ur Specific [place] 1.010 Urine Protein Negative Urine Glucose (UA) 3+ H Urine Ketones Negative Urine Blood Negative Urine Nitrite Negative Urine Bilirubin Negative Urine Urobilinogen Negative Ur Leukocyte Esterase Negative 1002/25/18 02/25/18 10:15 10:15 12:15 WBC RBC Hgb Hct MCV MCH MCHC RDW Plt Count MPV Absolute Neuts (auto) Neutrophils % Lymphocytes % Monocytes % Eosinophils % Basophils % Nucleated RBC % VBG pH 7.37 POC VBG pCO2 49.2 POC VBG pO2 24.9 L D Mixed VBG HCO3 27.9 H Sodium Potassium Chloride Carbon Dioxide Anion Gap BUN Creatinine Creat Clearance w eGFR POC Glucometer Random Glucose Lactic Acid 2.3 H* 1.6 Calcium Phosphorus Magnesium Total Bilirubin AST ALT Alkaline Phosphatase Creatine Kinase Troponin I Total Protein Albumin Urine Color Urine Appearance Urine pH Ur Specific [place] Urine Protein Urine Glucose (UA) Urine Ketones Urine Blood Urine Nitrite Urine Bilirubin Urine Urobilinogen Ur Leukocyte Esterase 02/25/18 02/25/18 02/25/18 12:58 16:43 16:58 WBC RBC Hgb Hct MCV MCH MCHC RDW Plt Count MPV Absolute Neuts (auto) Neutrophils % Lymphocytes % Monocytes % Eosinophils % Basophils % Nucleated RBC % VBG pH POC VBG pCO2 POC VBG pO2 Mixed VBG HCO3 Sodium Potassium Chloride Carbon Dioxide Anion Gap BUN Creatinine Creat Clearance w eGFR POC Glucometer [phone] Random Glucose Lactic Acid 2.1 H Calcium Phosphorus Magnesium Total Bilirubin AST ALT Alkaline Phosphatase Creatine Kinase 60 Troponin I < 0.02 Total Protein Albumin Urine Color Urine Appearance Urine pH Ur Specific [place] Urine Protein Urine Glucose (UA) Urine Ketones Urine Blood Urine Nitrite Urine Bilirubin Urine Urobilinogen Ur Leukocyte Esterase 02/25/18 02/26/18 02/26/18 23:06 05:40 05:40 WBC RBC Hgb Hct MCV MCH MCHC RDW Plt Count MPV Absolute Neuts (auto) Neutrophils % Lymphocytes % Monocytes % Eosinophils % Basophils % Nucleated RBC % VBG pH POC VBG pCO2 POC VBG pO2 Mixed VBG HCO3 Sodium 133 L Potassium 5.1 Chloride 97 L Carbon Dioxide 28 Anion Gap 8 BUN 22 H Creatinine 1.1 Creat Clearance w eGFR 47.55 POC Glucometer 289 Random Glucose 273 H Lactic Acid 2.0 Calcium 8.8 Phosphorus 3.1 Magnesium 2.7 H Total Bilirubin AST ALT Alkaline Phosphatase Creatine Kinase Troponin I Total Protein Albumin Urine Color Urine Appearance Urine pH Ur Specific [place] Urine Protein Urine Glucose (UA) Urine Ketones Urine Blood Urine Nitrite Urine Bilirubin Urine Urobilinogen Ur Leukocyte Esterase 02/26/18 06:47 WBC RBC Hgb Hct MCV MCH MCHC RDW Plt Count MPV Absolute Neuts (auto) Neutrophils % Lymphocytes % Monocytes % Eosinophils % Basophils % Nucleated RBC % VBG pH POC VBG pCO2 POC VBG pO2 Mixed VBG HCO3 Sodium Potassium Chloride Carbon Dioxide Anion Gap BUN Creatinine Creat Clearance w eGFR POC Glucometer 271 Random Glucose Lactic Acid Calcium Phosphorus Magnesium Total Bilirubin AST ALT Alkaline Phosphatase Creatine Kinase Troponin I Total Protein Albumin Urine Color Urine Appearance Urine pH Ur Specific [place] Urine Protein Urine Glucose (UA) Urine Ketones Urine Blood Urine Nitrite Urine Bilirubin Urine Urobilinogen Ur Leukocyte Esterase Active Medications Generic Name Dose Route Start Last Admin Trade Name Freq PRN Reason Stop Dose Admin Aspirin 81 mg 02/26/18 10:00 02/26/18 09:46 Asa - PO 81 mg DAILY PALOMA Administration Atorvastatin Calcium 40 mg 02/25/18 22:00 02/25/18 23:03 Lipitor - PO 40 mg HS PALOMA Administration Carvedilol 12.5 mg 02/25/18 22:00 02/26/18 09:45 Coreg - PO 12.5 mg BID PALOMA Administration Docusate Sodium 100 mg 02/25/18 14:15 02/26/18 06:52 Colace - PO 100 mg TID PALOMA Administration Heparin Sodium (Porcine) 5,000 unit 02/25/18 22:00 02/26/18 06:53 Heparin - SQ 5,000 unit TID PALOMA Administration Insulin Aspart 1 vial 02/25/18 16:30 02/26/18 06:52 Novolog Vial Sliding Scale - SQ 6 units TIDAC PALOMA Administration Protocol Insulin Detemir 35 units 02/25/18 22:00 02/25/18 23:10 Levemir Vial SQ 35 units HS PALOMA Administration Levothyroxine Sodium 88 mcg 02/26/18 07:00 02/26/18 06:52 Synthroid - PO 88 mcg DAILY@0700 PALOMA Administration Pantoprazole Sodium 40 mg 02/26/18 10:00 02/26/18 09:46 Protonix - PO 40 mg DAILY PALOMA Administration Polyethylene Glycol 17 gm 02/26/18 10:00 02/26/18 09:46 Miralax (For Daily Use) - PO Not Given DAILY PALOMA Ramipril 2.5 mg 02/26/18 10:00 02/26/18 09:46 Altace - PO 2.5 mg DAILY PALOMA Administration Ranolazine 500 mg 02/25/18 22:00 02/26/18 09:45 Ranexa - PO 500 mg BID PALOMA Administration Repaglinide 2 mg 02/26/18 12:00 Prandin - PO DAILY@1200 PALOMA Senna 1 tab 02/25/18 22:00 02/26/18 09:46 Senna - PO 1 tab BID PALOMA Administration ASSESSMENT/PLAN: 82F with systolic CHF, HLD, PVD,uncontrolled DMII, hypothyriodism, hx of osteomyelitis, presents to the ED with LLQ abdominal pain found to have lactic acidosis, constipation and given extensive cardiac history of small EKG changes she was admitted for further evaluation to telemetry. daughter's phone number is [phone] #Abdominal pain - improved with resolution of constipation - mirolax held due to multiple episodes of BM, continue senna #Abnormal EKG - in comparison to previous EKG in 10/2017, t-wave changes appear to be dynamic with repeat EKG this evening - earlier troponin was negative, given changes on this afternoon's EKG, will repeat troponin this evening and repeat EKG in the morning for comparison of changes - continue telemetry monitoring #Lactic acidosis - of unclear etiology, no s/s of infection, or cardiac/ abdominal vascular ischemia, possibly due to metformin use could be contributing in addition to mild volume depletion - will gently hydrate overnight and repeat in the AM, caution with fluids: NS @ 42/cc/hr for 1L only with close monitoring due to CHF #HTN Restart Ramipril Restart Coreg #CAD s/p CABG aspirin 81g po daily lipitor #CHF - not in acute exacerbation - continue ranexa - close monitoring of IVF #DM II - uncontrolled with hx of osteomyelitis and peripheral neuropathy Restart home dose of Levemir 35 units HS ISS TIDAC BGM ACHS Restart Prandin Hold Metformin for now as inpatient HbA1C in system from 2 weeks ago 8.5% Hypothyroidism: Restart synthroid 88mcg po QAM GERD: Continue PPI on formulary CKD: Patient's baseline seems to be 1.1-1.2 current Cr 1.3 Dementia - pt calm and cooperative Hyponatremia - chronic - will recieve IVF with NS, repeat in the AM diet: diabetic/Cardiac diet PPx: Activity: PT consult Visit type - Emergency Visit Emergency Visit: No - New Patient This patient is new to me today: Yes Date on this admission: 02/26/18 - Critical Care Critical Care patient: No - Discharge Referral Referred to [facility] Med [facility] No
[2018-02-26] MEDS ORDERED: INSULIN (NOVOLOG) ASPART 100 UNITS/ML 10ML VIAL ONE (11:38)
[2018-02-26] MEDS: REPAGLINIDE 1 MG TABLET PO SCH (11:39)
--- NOTE | 2018-02-26 15:54 | PN ---
Teaching Attending Note Name of Resident: Amber Randolph ATTENDING PHYSICIAN STATEMENT I saw and evaluated the patient. I reviewed the resident's note and discussed the case with the resident. I agree with the resident's findings and plan as documented. SUBJECTIVE: Patient had a bowel movement yesterday. She says she is having pain and points to the LLQ of her abdomen. OBJECTIVE: Vital Signs Period Temp Pulse Resp BP Sys/Ibarra Pulse Ox Last 24 Hr 98.1 F-98.8 F 59-90 18-20 109-171/43-82 96-98 HEART: S1S2, RRR LUNGS: Clear ABDOMEN: Soft, non-tender, non-distended, normal BS EXTREMITIES: No edema Laboratory Results - last 24 hr 02/25/18 02/25/18 02/25/18 16:43 16:58 23:06 Sodium Potassium Chloride Carbon Dioxide Anion Gap BUN Creatinine Creat Clearance w eGFR POC Glucometer [phone] Random Glucose Lactic Acid Calcium Phosphorus Magnesium Creatine Kinase 60 Troponin I < 0.02 02/26/18 02/26/18 02/26/18 05:40 05:40 06:47 Sodium 133 L Potassium 5.1 Chloride 97 L Carbon Dioxide 28 Anion Gap 8 BUN 22 H Creatinine 1.1 Creat Clearance w eGFR 47.55 POC Glucometer 271 Random Glucose 273 H Lactic Acid 2.0 Calcium 8.8 Phosphorus 3.1 Magnesium 2.7 H Creatine Kinase Troponin I 02/26/18 11:36 Sodium Potassium Chloride Carbon Dioxide Anion Gap BUN Creatinine Creat Clearance w eGFR POC Glucometer 351 Random Glucose Lactic Acid Calcium Phosphorus Magnesium Creatine Kinase Troponin I Current Medications Generic Name Dose Route Start Last Admin Trade Name Charleen PRN Reason Stop Dose Admin Aspirin 81 mg 02/26/18 10:00 02/26/18 09:46 Asa - PO 81 mg DAILY [facility] Administration Atorvastatin Calcium 40 mg 02/25/18 22:00 02/25/18 23:03 Lipitor - PO 40 mg HS [facility] Administration Carvedilol 12.5 mg 02/25/18 22:00 02/26/18 09:45 Coreg - PO 12.5 mg BID [facility] Administration Docusate Sodium 100 mg 02/25/18 14:15 02/26/18 13:28 Colace - PO 100 mg TID [facility] Administration Heparin Sodium (Porcine) 5,000 unit 02/25/18 22:00 02/26/18 13:28 Heparin - SQ 5,000 unit TID [facility] Administration Insulin Aspart 1 vial 02/25/18 16:30 02/26/18 11:39 Novolog Vial Sliding Scale - SQ 10 units TIDAC [facility] Administration Protocol Insulin Detemir 35 units 02/25/18 22:00 02/25/18 23:10 Levemir Vial SQ 35 units HS [facility] Administration Levothyroxine Sodium 88 mcg 02/26/18 07:00 02/26/18 06:52 Synthroid - PO 88 mcg DAILY@0700 [facility] Administration Pantoprazole Sodium 40 mg 02/26/18 10:00 02/26/18 09:46 Protonix - PO 40 mg DAILY [facility] Administration Polyethylene Glycol 17 gm 02/26/18 10:00 02/26/18 09:46 Miralax (For Daily Use) - PO Not Given DAILY [facility] Ramipril 2.5 mg 02/26/18 10:00 02/26/18 09:46 Altace - PO 2.5 mg DAILY [facility] Administration Ranolazine 500 mg 02/25/18 22:00 02/26/18 09:45 Ranexa - PO 500 mg BID [facility] Administration Repaglinide 2 mg 02/26/18 12:00 02/26/18 11:39 Prandin - PO 2 mg DAILY@1200 [facility] Administration Senna 1 tab 02/25/18 22:00 02/26/18 09:46 Senna - PO 1 tab BID [facility] Administration ASSESSMENT AND PLAN: This is an 82 year old woman with a history of CAD, CABG, HTN, hyperlipidemia, CHF, type 2 DM, GERD, hypothyroidism, left 1st toe osteomyelitis, dementia, chronic vaginitis, constipation who presented to the ED with LLQ pain and was found to have abnormal EKG. 1. Abdominal pain secondary to chronic vaginitis and constipation - Continue Colace, Senna, Miralax 2. Abnormal EKG - Patient has at baseline an abnormal EKG - Troponin negative x2 3. Lactic acidemia - Secondary to dehydration, metformin - Continue to hold metformin - Improved with IV fluid, then increased again - 2.0 this morning - Continue cautious hydration 4. CAD, history of CABG - Continue aspirin, Coreg, Lipitor, Ranexa 5. HTN - Continue Coreg, Altace 6. Hyperlipidemia - Continue Lipitor 7. Chronic systolic and diastolic heart failure - Stable - Continue Coreg, Altace 8. Hypothyroidism - Continue Synthroid 9. Type 2 DM with peripheral neuropathy - Continue to hold metformin secondary to lactic acidemia - Continue Levemir, Prandin, Novolog sliding scale, Neurontin 10. GERD - Continue Protonix 11. Dementia
[2018-02-26] MEDS ORDERED: SODIUM CHLORIDE 1,000 ML IV SCH (17:00)
--- NOTE | 2018-02-26 17:18 | EKG ---
Test Reason : Blood Pressure : / mmHG Vent. Rate : 069 BPM Atrial Rate : 069 BPM P-R Int : 172 ms QRS Dur : 086 ms QT Int : 402 ms P-R-T Axes : 066 028 121 degrees QTc Int : 430 ms NORMAL SINUS RHYTHM ABNORMAL ECG WHEN COMPARED WITH ECG OF 19-DEC-2017 17:27, PREMATURE VENTRICULAR COMPLEXES ARE NO LONGER PRESENT T WAVE INVERSION MORE EVIDENT IN LATERAL LEADS CLINICAL CORRELATION IS RECOMMENDED BASELINE ARTIFACT Confirmed by SYLVESTER MARTINEZ, CHARLY ([id number]) on 02/26/2018 5:18:41 PM Referred By: Confirmed By:CHARLY PHAN MD
[2018-02-26] MEDS: ATORVASTATIN CA 40 MG TABLET (FP) PO SCH (22:18)
[2018-02-26] MEDS: INSULIN (LEVEMIR) 100 UNITS/ML UNITS SQ SCH (22:19)
[2018-02-27] MEDS: INSULIN SLIDING SCALE (NOVOLOG) 1 VIAL SQ SCH ×3 (06:52→17:03)
[2018-02-27] MEDS: LEVOTHYROXINE NA 88 MCG TABLET (FP) PO SCH (06:52)
[2018-02-27] MEDS: HEPARIN NA (PORCINE) 5,000 UNITS/ML 1ML VIAL SQ SCH ×3 (06:52→22:13)
[2018-02-27] MEDS: DOCUSATE SODIUM 100 MG CAPSULE (FP) PO SCH ×3 (07:17→22:13)
[2018-02-27 08:12] LABS: ANION GAP 9 MMOL/L (8-16); BLOOD UREA NITROGEN 22 mg/dL (7-18); CALCIUM 8.7 mg/dL (8.5-10.1); CHLORIDE 94 mmol/L (98-107); CO2 26 mmol/L (21-32); CREATININE 1.3 mg/dL (0.55-1.3); GLUCOSE,RANDOM 260 mg/dL (74-106); POTASSIUM 5.1 mmol/L (3.5-5.1); SODIUM 128 mmol/L (136-145)
[2018-02-27] MEDS: ASPIRIN 81 MG CHEWABLE TABLETS PO SCH (09:22)
[2018-02-27] MEDS: RANOLAZINE E.R. 500 MG TABLET (FP) PO SCH ×2 (09:22→22:13)
[2018-02-27] MEDS: CARVEDILOL 12.5 MG TABLET (FP) PO SCH ×2 (09:22→22:13)
[2018-02-27] MEDS: RAMIPRIL 2.5 MG CAPSULE (FP) PO SCH (09:22)
[2018-02-27] MEDS: SENNOSIDES 8.6MG TABLET (FP) PO SCH ×2 (09:22→22:13)
[2018-02-27] MEDS: PANTOPRAZOLE 40 MG TABLET (FP) PO SCH (09:22)
[2018-02-27] MEDS: POLYETHYLENE GLYCOL 3350 119 GM BTL PO SCH (09:23)
[2018-02-27] MEDS ORDERED: SODIUM CHLORIDE 1,000 ML IV SCH ×2 (09:37→16:45)
--- NOTE | 2018-02-27 09:55 | PN ---
Progress Note (short form) - Note Progress Note: Chief Complaint: Events noted, notes reviewed, reporting abdominal discomfort, denies any chest discomfort or dyspnea, non specific lateral wall EKG change was note History of Present Illness: Seen and examined on telemetry. Full consult dictated 09/10/2017 Echo: (Old LAD infarct) mild-moderate decrease in LV systolic function, mild ISA, trace MR, severe apical septal and apical lateral hypokinesia Medications: Current Medications Aspirin (Asa -) 81 mg PO DAILY [facility] Last Admin: 02/27/18 09:22 Dose: 81 mg Atorvastatin Calcium (Lipitor -) 40 mg PO HS [facility] Last Admin: 02/26/18 22:18 Dose: 40 mg Carvedilol (Coreg -) 12.5 mg PO BID [facility] Last Admin: 02/27/18 09:22 Dose: 12.5 mg Docusate Sodium (Colace -) 100 mg PO TID [facility] Last Admin: 02/27/18 07:17 Dose: Not Given Heparin Sodium (Porcine) (Heparin -) 5,000 unit SQ TID [facility] Last Admin: 02/27/18 06:52 Dose: 5,000 unit Sodium Chloride (Normal Saline -) 1,000 mls @ 60 mls/hr IV ASDIR [facility] Insulin Aspart (Novolog Vial Sliding Scale -) [facility]; Protocol Last Admin: 02/27/18 06:52 Dose: 6 units Insulin Detemir (Levemir Vial) 35 units SQ [facility] Last Admin: 02/26/18 22:19 Dose: 35 units Levothyroxine Sodium (Synthroid -) 88 mcg PO DAILY@0700 [facility] Last Admin: 02/27/18 06:52 Dose: 88 mcg Pantoprazole Sodium (Protonix -) 40 mg PO DAILY [facility] Last Admin: 02/27/18 09:22 Dose: 40 mg Polyethylene Glycol (Miralax (For Daily Use) -) 17 gm PO DAILY [facility] Last Admin: 02/27/18 09:23 Dose: Not Given Ramipril (Altace -) 2.5 mg PO DAILY [facility] Last Admin: 02/27/18 09:22 Dose: 2.5 mg Ranolazine (Ranexa -) 500 mg PO BID [facility] Last Admin: 02/27/18 09:22 Dose: 500 mg Repaglinide (Prandin -) 2 mg PO DAILY@1200 [facility] Last Admin: 02/26/18 11:39 Dose: 2 mg Senna (Senna -) 1 tab PO BID [facility] Last Admin: 02/27/18 09:22 Dose: 1 tab Review of Systems Cardiovascular: As noted above Respiratory: denies: Cough or Sputum Production Gastrointestinal: denies: Nausea, Vomiting, or Constipation reports Abdominal Discomfort and Diarrhea Musculoskeletal: No Symptoms Reported Endocrine: No Symptoms Reported Vital Signs: Last Vital Signs Temp Pulse Resp BP Pulse Ox 98.3 F 59 L 18 143/78 96 02/27/18 08:28 02/27/18 08:28 02/27/18 08:28 02/27/18 08:28 02/27/18 08:00 Intake & Output 02/24/18 02/25/18 02/26/18 02/27/18 23:59 23:59 23:59 23:59 Intake Total 20 240 Balance 20 240 Weight 166 lb 12.8 oz 165 lb 166 lb 5.6 oz Constitutional: No Distress, Calm Neck: Supple negative JVD no bruit appreciated Respiratory: diminished Breath Sounds Bilaterally Cardiovascular: S1 and S2 Regular Rate and Rhythm grade 1/6 systolic ejection murmur Gastrointestinal: Soft Normal Bowel Sounds Ext: Trace edema bilaterally Labs: CBC, BMP 02/25/18 10:15 02/27/18 06:00 Troponin, BNP 02/26/18 18:35 Troponin I < 0.02 Assessment/Plan ASSESSMENT: 1. Abdominal discomfort lactic acidosis, etiology of which to be determined 2. Systolic/diastolic LV dysfunction with chronic class I NYHA classification LV failure, clinically compensated/euvolemic 3. CAD post MA, CABG, angina pectoris 4. History of cerebro-vascular disease 5. History of PAD 6. HTN 7. DM 8. Hyperlipidemia 9. Hypothyroidism 10. CKD 11. Hyponatremia PLAN: 1. Continue Carvedilol 2. Continue Altace and titrate dosage as tolerated and as needed, with close monitoring or renal function 3. Continue Ranexa 4. Continue Lipitor 5. Continue ASA 6. Consider the addition of Jardiance if not contraindicated (cardiovascular benefits) 7. Additional cardiovascular evaluation as outpatient Can be transferred to floor care from the cardiovascular point of view Evelio Howard M.D.
[2018-02-27] MEDS: REPAGLINIDE 1 MG TABLET PO SCH (11:27)
--- NOTE | 2018-02-27 11:32 | PN ---
Physical Exam: SUBJECTIVE: Patient seen and examined. She says she had epigastric discomfort overnight. Currently she has no complaints. OBJECTIVE: Vital Signs Period Temp Pulse Resp BP Sys/Ibarra Pulse Ox Last 24 Hr 97.9 F-98.3 F 58-69 18-18 132-172/62-94 96-96 GENERAL: The patient is awake, alert, and fully oriented, in no acute distress. HEENT: Dry mucous membranes. LUNGS: Breath sounds equal, clear to auscultation bilaterally, no wheezes, no crackles, no accessory muscle use. HEART: Regular rate and rhythm, S1, S2 without murmur, rub or gallop. ABDOMEN: Soft, nontender, nondistended, normoactive bowel sounds, no guarding, no rebound, no hepatosplenomegaly, no masses. EXTREMITIES: 2+ pulses, warm, well-perfused, no edema. SKIN: Poor turgor. Laboratory Results - last 24 hr 02/26/18 02/26/18 02/26/18 11:36 16:52 18:35 Sodium Potassium Chloride Carbon Dioxide Anion Gap BUN Creatinine Creat Clearance w eGFR POC Glucometer 351 212 Random Glucose Lactic Acid Calcium Troponin I < 0.02 02/26/18 02/27/18 02/27/18 22:12 06:00 06:00 Sodium 128 L Potassium 5.1 Chloride 94 L Carbon Dioxide 26 Anion Gap 9 BUN 22 H Creatinine 1.3 Creat Clearance w eGFR 39.21 POC Glucometer 232 Random Glucose 260 H Lactic Acid 2.0 Calcium 8.7 Troponin I 02/27/18 06:19 Sodium Potassium Chloride Carbon Dioxide Anion Gap BUN Creatinine Creat Clearance w eGFR POC Glucometer 273 Random Glucose Lactic Acid Calcium Troponin I Active Medications Generic Name Dose Route Start Last Admin Trade Name Freq PRN Reason Stop Dose Admin Aspirin 81 mg 02/26/18 10:00 02/27/18 09:22 Asa - PO 81 mg DAILY [facility] Administration Atorvastatin Calcium 40 mg 02/25/18 22:00 02/26/18 22:18 Lipitor - PO 40 mg HS [facility] Administration Carvedilol 12.5 mg 02/25/18 22:00 02/27/18 09:22 Coreg - PO 12.5 mg BID [facility] Administration Docusate Sodium 100 mg 02/25/18 14:15 02/27/18 07:17 Colace - PO Not Given TID [facility] Heparin Sodium (Porcine) 5,000 unit 02/25/18 22:00 02/27/18 06:52 Heparin - SQ 5,000 unit TID [facility] Administration Sodium Chloride 1,000 mls @ 60 mls/hr 02/27/18 09:37 Normal Saline - IV ASDIR [facility] Insulin Aspart 1 vial 02/25/18 16:30 02/27/18 06:52 Novolog Vial Sliding Scale - SQ 6 units TIDAC [facility] Administration Protocol Insulin Detemir 35 units 02/25/18 22:00 02/26/18 22:19 Levemir Vial SQ 35 units HS [facility] Administration Levothyroxine Sodium 88 mcg 02/26/18 07:00 02/27/18 06:52 Synthroid - PO 88 mcg DAILY@0700 [facility] Administration Pantoprazole Sodium 40 mg 02/26/18 10:00 02/27/18 09:22 Protonix - PO 40 mg DAILY [facility] Administration Polyethylene Glycol 17 gm 02/26/18 10:00 02/27/18 09:23 Miralax (For Daily Use) - PO Not Given DAILY [facility] Ramipril 5 mg 02/27/18 10:23 Altace - PO DAILY [facility] Ranolazine 500 mg 02/25/18 22:00 02/27/18 09:22 Ranexa - PO 500 mg BID [facility] Administration Repaglinide 2 mg 02/26/18 12:00 02/26/18 11:39 Prandin - PO 2 mg DAILY@1200 [facility] Administration Senna 1 tab 02/25/18 22:00 02/27/18 09:22 Senna - PO 1 tab BID [facility] Administration ASSESSMENT/PLAN: This is an 82 year old woman with a history of CAD, CABG, HTN, hyperlipidemia, CHF, type 2 DM, GERD, hypothyroidism, left 1st toe osteomyelitis, dementia, chronic vaginitis, constipation who presented to the ED with LLQ pain and was found to have abnormal EKG. 1. Abdominal pain secondary to chronic vaginitis and constipation - Last bowel movement was 02/25 - Continue Colace, Senna, Miralax 2. Abnormal EKG - Cardiology input appreciated 3. Lactic acidemia secondary to dehydration - Continue to hold metformin - IV fluids not given - will start and monitor lactic acid 4. CAD, history of CABG - Continue aspirin, Coreg, Lipitor, Ranexa 5. HTN - Continue Coreg, Altace 6. Hyperlipidemia - Continue Lipitor 7. Chronic systolic and diastolic heart failure - Stable - Continue Coreg, Altace 8. Hypothyroidism - Continue Synthroid 9. Type 2 DM with peripheral neuropathy - Continue to hold metformin secondary to lactic acidemia - Continue Levemir, Prandin, Novolog sliding scale, Neurontin 10. GERD - Continue Protonix 11. Dementia Visit type - Emergency Visit Emergency Visit: Yes ED Registration Date: 02/26/18 Care time: The patient presented to the Emergency Department on the above date and was hospitalized for further evaluation of their emergent condition. - New Patient This patient is new to me today: No - Critical Care Critical Care patient: No - Discharge Referral Referred to [facility] No
--- NOTE | 2018-02-27 12:35 | CONS ---
DATE OF CONSULTATION: 02/27/2018 CONSULTATION REQUESTED BY: Hospitalist. CHIEF COMPLAINT: Abdominal discomfort, vague chest discomfort, abnormal EKG, cardiovascular evaluation. An 82-year-old female, of descent, with known history of coronary artery disease post coronary artery bypass grafting, angina pectoris, systolic/diastolic left ventricular dysfunction with chronic class 1 [place] [employer] classification left ventricular failure, hypertensive cardiovascular disease, diabetes mellitus, hypercholesterolemia, cerebrovascular disease with no significant residual deficit, peripheral vascular disease, hypothyroidism, and chronic kidney disease, who presented to [facility] with abdominal discomfort and diarrhea, evaluation of which is currently in progress. Patient, in addition, apparently complained of chest discomfort, although currently she denies, and she was noted to have an abnormal electrocardiogram change from prior tracing. As noted, patient currently is chest pain free. Patient reports dyspnea with mild to moderate physical exertion. Patient denies any orthopnea, paroxysmal nocturnal dyspnea, or peripheral edema. Patient denies any palpitation, dizziness, lightheadedness, or syncope. Patient reports fatigue and tiredness. PAST MEDICAL HISTORY: Coronary artery disease, status post coronary artery bypass grafting, angina pectoris, systolic/diastolic left ventricular dysfunction with chronic class 1 [place] [employer] classification left ventricular failure, hypertensive cardiovascular disease, diabetes mellitus, hypercholesterolemia, cerebrovascular disease with no significant residual deficit, peripheral vascular disease, hypothyroidism, chronic kidney disease. SOCIAL HISTORY: Denies smoking. FAMILY HISTORY: Positive coronary artery disease. ALLERGIES: None reported. Medical therapy currently includes Ecotrin 81 mg once a day, Lipitor 40 mg once a day, Coreg 12.5 mg twice a day, Colace 100 mg 3 times a day, heparin subcutaneous 5000 units 3 times a day, sodium chloride 60 mL per hour, insulin as prescribed, Synthroid 88 mcg once a day, Protonix 40 mg once a day, MiraLax 17 g once daily, Altace 2.5 mg once daily, Ranexa 500 mg twice a day, Prandin 2 mg once daily, Senna 1 tablet twice a day. REVIEW OF SYSTEMS: Head and Neck: Denies headache, photophobia, blurring of vision. Respiratory: No cough or sputum production. Cardiovascular: As noted above. Gastrointestinal: Abdominal discomfort and diarrhea. Denies nausea, vomiting, or constipation. Genitourinary: No symptoms reported. Musculoskeletal: No symptoms reported. PHYSICAL EXAMINATION: Vital Signs: Blood pressure is 143/78 mmHg. Pulse rate is 59 beats per minute, temperature 98.3. Head and Neck: Pupils equal, reactive to light and accommodation. Extraocular muscles are intact. Anicteric sclerae. Negative JVD. No bruit appreciated. Chest: Diminished breath sounds at the bases bilaterally. Cardiovascular: S1, S2 regular. Grade 1/6 systolic ejection murmur. No clicks or gallops. Abdomen: Soft. No tenderness elicited. Normoactive bowel sound. Extremities: Trace edema bilaterally. EKG revealed sinus rhythm with ST segment and T-wave abnormality, anterolateral leads. CBC revealed white cell count 8.4, hemoglobin 13.3, platelets 323. Basic metabolic profile revealed a sodium 128, potassium 5.1, BUN 22, creatinine 1.3, glucose 260. CPK, troponin levels were noted. ASSESSMENT: 1. Abdominal discomfort with lactic acidosis, etiology of which is to be determined. 2. Systolic/diastolic left ventricular dysfunction with chronic class 1 [place] [employer] classification left ventricular failure, clinically compensated/euvolemic. 3. Coronary artery disease, post coronary artery bypass grafting, angina pectoris. 4. History of cerebrovascular disease. 5. History of peripheral vascular disease. 6. Hypertension. 7. Diabetes mellitus. 8. Hypercholesterolemia. 9. Hypothyroidism. 10. Chronic kidney disease. 11. Hyponatremia. RECOMMENDATION: 1. Continuation of Coreg therapy. 2. Continuation of Altace and titration of dosage as tolerated and as needed, with close monitoring of renal function. 3. Continuation of Altace therapy. 4. Continuation of Lipitor. 5. Continuation of aspirin. 6. Consider the addition of Jardiance as recommended in prior consultation, if not contraindicated, related to its cardiovascular benefits. 7. Additional cardiovascular evaluation can be performed on outpatient basis. Thank you for the kind referral. CHARLY PHAN M.D. [id number]
[2018-02-27] MEDS ORDERED: PT OWN MED DRAWER 7, Y5N ONE (14:23)
[2018-02-27 14:46] LABS: ANION GAP 7 MMOL/L (8-16); BLOOD UREA NITROGEN 21 mg/dL (7-18); CALCIUM 8.4 mg/dL (8.5-10.1); CHLORIDE 98 mmol/L (98-107); CO2 28 mmol/L (21-32); CREATININE 1.2 mg/dL (0.55-1.3); GLUCOSE,RANDOM 210 mg/dL (74-106); POTASSIUM 4.3 mmol/L (3.5-5.1); SODIUM 133 mmol/L (136-145)
[2018-02-27] MEDS: INSULIN (LEVEMIR) 100 UNITS/ML UNITS SQ SCH (22:13)
[2018-02-27] MEDS: ATORVASTATIN CA 40 MG TABLET (FP) PO SCH (22:13)
[2018-02-27] MEDS ORDERED: ACETAMINOPHEN 325 MG TABLET (FP) PO ONE (23:59)
[2018-02-28] MEDS ORDERED: ACETAMINOPHEN 325 MG TABLET (FP) ONE
[2018-02-28] MEDS ORDERED: ACETAMINOPHEN 1000 MG/100 ML VIAL (NON FORMULARY) IVPB ONE (01:57)
--- NOTE | 2018-02-28 02:11 | HOSP ---
Physical Examination Vital Signs: Vital Signs Temperature 98.4 F 02/27/18 18:00 Pulse Rate 59 L 02/27/18 18:00 Respiratory Rate 20 02/27/18 18:00 Blood Pressure 148/56 L 02/27/18 18:00 O2 Sat by Pulse Oximetry (%) 96 02/27/18 08:00 Labs: CBC, BMP 02/25/18 10:15 02/27/18 14:05 Hospitalist Encounter Assessment: Hospitalist team paged to see pt regarding left calf pain/cramping and left toe pain. R/o DVt LLE. Dupex U/S ordered, spoke with nurse, Ultrasound team states will perform test 7 am, not available currently I.V Tylenol ordered for pain. Visit type - Emergency Visit Emergency Visit: No - New Patient This patient is new to me today: Yes Date on this admission: 02/28/18 - Critical Care Critical Care patient: No
[2018-02-28] MEDS ORDERED: INSULIN (NOVOLOG) ASPART 100 UNITS/ML 10ML VIAL ONE (05:56)
[2018-02-28] MEDS: LEVOTHYROXINE NA 88 MCG TABLET (FP) PO SCH (06:05)
[2018-02-28] MEDS: DOCUSATE SODIUM 100 MG CAPSULE (FP) PO SCH ×3 (06:05→23:19)
[2018-02-28] MEDS: INSULIN SLIDING SCALE (NOVOLOG) 1 VIAL SQ SCH ×3 (06:10→16:43)
[2018-02-28] MEDS: HEPARIN NA (PORCINE) 5,000 UNITS/ML 1ML VIAL SQ SCH ×3 (06:10→23:19)
[2018-02-28 07:39] LABS: HEMATOCRIT 35.2 % (32.4-45.2); HEMOGLOBIN 11.8 GM/dL (10.7-15.3); MCH 29.7 pg (25.7-33.7); MCHC 33.6 g/dl (32.0-36.0); MEAN CELL VOLUME 88.6 fl (80-96); MEAN PLT VOLUME 7.9 fl (7.5-11.1); PLATELET COUNT 275 K/MM3 (134-434); RBC 3.97 M/mm3 (3.60-5.2); RDW 14.2 % (11.6-15.6); WHITE BLOOD COUNT 8.1 K/mm3 (4.0-10.0)
[2018-02-28 08:06] LABS: ANION GAP 6 MMOL/L (8-16); BLOOD UREA NITROGEN 18 mg/dL (7-18); CALCIUM 8.7 mg/dL (8.5-10.1); CHLORIDE 100 mmol/L (98-107); CO2 26 mmol/L (21-32); GLUCOSE,RANDOM 146 mg/dL (74-106); POTASSIUM 3.8 mmol/L (3.5-5.1); SODIUM 132 mmol/L (136-145)
[2018-02-28] MEDS: ASPIRIN 81 MG CHEWABLE TABLETS PO SCH (10:29)
[2018-02-28] MEDS: RANOLAZINE E.R. 500 MG TABLET (FP) PO SCH ×2 (10:29→23:20)
[2018-02-28] MEDS: RAMIPRIL 5 MG CAPSULE (FP) PO SCH (10:30)
[2018-02-28] MEDS: PANTOPRAZOLE 40 MG TABLET (FP) PO SCH (10:30)
[2018-02-28] MEDS: CARVEDILOL 12.5 MG TABLET (FP) PO SCH ×2 (10:30→23:19)
[2018-02-28] MEDS: SENNOSIDES 8.6MG TABLET (FP) PO SCH ×2 (10:30→23:20)
[2018-02-28] MEDS: POLYETHYLENE GLYCOL 3350 119 GM BTL PO SCH (10:39)
--- NOTE | 2018-02-28 10:51 | PN ---
Progress Note, Physician History of Present Illness: Resting comfortably, started on bowel regimen. - Current Medication List Current Medications: Active Medications Aspirin (Asa -) 81 mg PO DAILY [facility] Last Admin: 02/28/18 10:29 Dose: 81 mg Atorvastatin Calcium (Lipitor -) 40 mg PO HS [facility] Last Admin: 02/27/18 22:13 Dose: 40 mg Carvedilol (Coreg -) 12.5 mg PO BID [facility] Last Admin: 02/28/18 10:30 Dose: 12.5 mg Docusate Sodium (Colace -) 100 mg PO TID [facility] Last Admin: 02/28/18 06:05 Dose: 100 mg Heparin Sodium (Porcine) (Heparin -) 5,000 unit SQ TID [facility] Last Admin: 02/28/18 06:10 Dose: 5,000 unit Sodium Chloride (Normal Saline -) 1,000 mls @ 42 mls/hr IV ASDIR [facility] Last Admin: 02/27/18 17:03 Dose: 42 mls/hr Insulin Aspart (Novolog Vial Sliding Scale -) [facility]; Protocol Last Admin: 02/28/18 06:10 Dose: 4 units Insulin Detemir (Levemir Vial) 35 units SQ [facility] Last Admin: 02/27/18 22:13 Dose: 35 units Levothyroxine Sodium (Synthroid -) 88 mcg PO DAILY@0700 [facility] Last Admin: 02/28/18 06:05 Dose: 88 mcg Pantoprazole Sodium (Protonix -) 40 mg PO DAILY [facility] Last Admin: 02/28/18 10:30 Dose: 40 mg Polyethylene Glycol (Miralax (For Daily Use) -) 17 gm PO DAILY [facility] Last Admin: 02/28/18 10:39 Dose: Not Given Ramipril (Altace -) 5 mg PO DAILY [facility] Last Admin: 02/28/18 10:30 Dose: 5 mg Ranolazine (Ranexa -) 500 mg PO BID [facility] Last Admin: 02/28/18 10:29 Dose: 500 mg Repaglinide (Prandin -) 2 mg PO DAILY@1200 [facility] Last Admin: 02/27/18 11:27 Dose: 2 mg Senna (Senna -) 1 tab PO BID [facility] Last Admin: 02/28/18 10:30 Dose: 1 tab - Objective Vital Signs: Vital Signs Temperature 98.3 F 02/28/18 09:00 Pulse Rate 62 02/28/18 09:00 Respiratory Rate 16 02/28/18 09:00 Blood Pressure 112/65 02/28/18 09:00 O2 Sat by Pulse Oximetry (%) 96 02/28/18 09:00 Constitutional: Yes: No Distress, Calm Neck: Yes: Supple Cardiovascular: Yes: Regular Rate and Rhythm Respiratory: Yes: Regular, Diminished Gastrointestinal: Yes: Soft, Hypoactive Bowel Sounds Edema: No Labs: CBC, BMP 02/28/18 06:30 02/28/18 06:30 - ....Imaging Cat Scan: Report Reviewed (Cholelithiasis, fecal retention) EKG: Report Reviewed (Tele: NSR) Problem List - Problems (1) Constipation Code(s): K59.00 - CONSTIPATION, UNSPECIFIED Qualifiers: Constipation type: unspecified constipation type Qualified Code(s): K59.00 - Constipation, unspecified (2) CKD (chronic kidney disease) Code(s): N18.9 - CHRONIC KIDNEY DISEASE, UNSPECIFIED Qualifiers: Chronic kidney disease stage: stage 2 (mild) Qualified Code(s): N18.2 - Chronic kidney disease, stage 2 (mild) (3) Hyperlipidemia Code(s): E78.5 - HYPERLIPIDEMIA, UNSPECIFIED Qualifiers: Hyperlipidemia type: pure hypercholesterolemia Qualified Code(s): E78.00 - Pure hypercholesterolemia, unspecified; E78.0 - Pure hypercholesterolemia (4) Hypertensive cardiomyopathy Code(s): I11.9 - HYPERTENSIVE HEART DISEASE WITHOUT HEART FAILURE; I43 - CARDIOMYOPATHY IN DISEASES CLASSIFIED ELSEWHERE Qualifiers: Heart failure presence: with heart failure Qualified Code(s): I11.0 - Hypertensive heart disease with heart failure; I43 - Cardiomyopathy in diseases classified elsewhere (5) Hypothyroidism Code(s): E03.9 - HYPOTHYROIDISM, UNSPECIFIED Qualifiers: Hypothyroidism type: unspecified Qualified Code(s): E03.9 - Hypothyroidism , unspecified (6) S/P CABG (coronary artery bypass graft) Code(s): Z95.1 - PRESENCE OF AORTOCORONARY BYPASS GRAFT Assessment/Plan 09/10/2017 Echo: (Old LAD infarct) mild-moderate decrease in LV systolic function, mild ISA, trace MR, severe apical septal and apical lateral hypokinesia 1. Abdominal discomfort->fecal retention 2. Chronic Systolic/diastolic LV dysfunction with chronic class I NYHA classification LV failure, clinically compensated/euvolemic 3. CAD post SD, CABG, angina pectoris 4. History of cerebrovascular disease 5. History of PAD 6. HTN 7. DM 8. Hyperlipidemia 9. Hypothyroidism 10. CKD 11. Hyponatremia PLAN: 1. Continue Carvedilol 12.5 bid 2. Continue Altace 5 qd and titrate dosage as tolerated and as needed, with close monitoring or renal function 3. Continue Ranexa 500 bid 4. Continue Lipitor 40 qhs 5. Continue ASA 81 qd 6. Consider the addition of Jardiance if not contraindicated (cardiovascular benefits) 7. Additional cardiovascular evaluation as outpatient 8. DVT and GI prophylaxis, bowel regimen
--- NOTE | 2018-02-28 11:02 | EKG ---
Test Reason : Blood Pressure : / mmHG Vent. Rate : 063 BPM Atrial Rate : 063 BPM P-R Int : 000 ms QRS Dur : 096 ms QT Int : 428 ms P-R-T Axes : 000 128 150 degrees QTc Int : 437 ms NORMAL SINUS RHYTHM WITH SINUS ARRHYTHMIA LEFT POSTERIOR FASCICULAR BLOCK ABNORMAL ECG WHEN COMPARED WITH ECG OF 26-FEB-2018 18:18, LEFT POSTERIOR FASCICULAR BLOCK IS NOW PRESENT T WAVE VARIATION Confirmed by CHELSEY MARTINEZ, RYAN ([id number]) on 02/28/2018 11:02:16 AM Referred By: Confirmed By:RYAN BARBOSA MD
--- NOTE | 2018-02-28 11:07 | EKG ---
Test Reason : Blood Pressure : / mmHG Vent. Rate : 059 BPM Atrial Rate : 059 BPM P-R Int : 192 ms QRS Dur : 084 ms QT Int : 434 ms P-R-T Axes : 070 044 122 degrees QTc Int : 429 ms SINUS BRADYCARDIA ABNORMAL ECG WHEN COMPARED WITH ECG OF 25-FEB-2018 10:19, T WAVE VARIATION Confirmed by RYAN BARBOSA MD ([id number]) on 02/28/2018 11:07:33 AM Referred By: Confirmed By:RYAN BARBOSA MD
[2018-02-28] MEDS: GABAPENTIN 300 MG CAPSULE (FP) PO SCH ×3 (11:27→23:20)
[2018-02-28] MEDS: REPAGLINIDE 1 MG TABLET PO SCH (12:07)
[2018-02-28] MEDS ORDERED: MAGNESIUM HYDROX 2400MG/30ML ORAL SUSPENSION 30 ML CUP PO PRN (15:30)
--- NOTE | 2018-02-28 15:33 | PN ---
Physical Exam: SUBJECTIVE: Patient seen and examined. She has no complaints. OBJECTIVE: Vital Signs Period Temp Pulse Resp BP Sys/Ibarra Pulse Ox Last 24 Hr 97.0 F-98.4 F 53-62 16-20 112-148/45-71 96-96 GENERAL: The patient is awake, alert, and fully oriented, in no acute distress. LUNGS: Breath sounds equal, clear to auscultation bilaterally, no wheezes, no crackles, no accessory muscle use. HEART: Regular rate and rhythm, S1, S2 without murmur, rub or gallop. ABDOMEN: Soft, nontender, nondistended, normoactive bowel sounds, no guarding, no rebound, no hepatosplenomegaly, no masses. EXTREMITIES: 2+ pulses, warm, well-perfused, no edema. Laboratory Results - last 24 hr 02/27/18 02/27/18 02/28/18 17:00 22:12 06:03 WBC RBC Hgb Hct MCV MCH MCHC RDW Plt Count MPV Sodium Potassium Chloride Carbon Dioxide Anion Gap BUN Creatinine Creat Clearance w eGFR POC Glucometer 159 273 201 Random Glucose Lactic Acid Calcium 02/28/18 02/28/18 02/28/18 06:30 06:30 06:30 WBC 8.1 RBC 3.97 Hgb 11.8 Hct 35.2 MCV 88.6 MCH 29.7 MCHC 33.6 RDW 14.2 Plt Count 275 MPV 7.9 Sodium 132 L Potassium 3.8 Chloride 100 Carbon Dioxide 26 Anion Gap 6 L BUN 18 Creatinine 1.0 Creat Clearance w eGFR 53.08 POC Glucometer Random Glucose 146 H Lactic Acid 1.1 Calcium 8.7 02/28/18 11:15 WBC RBC Hgb Hct MCV MCH MCHC RDW Plt Count MPV Sodium Potassium Chloride Carbon Dioxide Anion Gap BUN Creatinine Creat Clearance w eGFR POC Glucometer 259 Random Glucose Lactic Acid Calcium Active Medications Generic Name Dose Route Start Last Admin Trade Name Freq PRN Reason Stop Dose Admin Aspirin 81 mg 02/26/18 10:00 02/28/18 10:29 Asa - PO 81 mg DAILY [facility]OMA Administration Atorvastatin Calcium 40 mg 02/25/18 22:00 02/27/18 22:13 Lipitor - PO 40 mg HS PALOMA Administration Carvedilol 12.5 mg 02/25/18 22:00 02/28/18 10:30 Coreg - PO 12.5 mg BID PALOMA Administration Docusate Sodium 100 mg 02/25/18 14:15 02/28/18 13:54 Colace - PO 100 mg TID [facility] Administration Gabapentin 600 mg 02/28/18 11:04 02/28/18 11:27 Neurontin - PO 600 mg TID [facility] Administration Heparin Sodium (Porcine) 5,000 unit 02/25/18 22:00 02/28/18 13:54 Heparin - SQ 5,000 unit TID [facility] Administration Sodium Chloride 1,000 mls @ 42 mls/hr 02/27/18 16:45 02/27/18 17:03 Normal Saline - IV 42 mls/hr ASDIR PALOMA Administration Insulin Aspart 1 vial 02/25/18 16:30 02/28/18 11:20 Novolog Vial Sliding Scale - SQ 6 units TIDAC PALOMA Administration Protocol Insulin Detemir 35 units 02/25/18 22:00 02/27/18 22:13 Levemir Vial SQ 35 units HS [facility] Administration Levothyroxine Sodium 88 mcg 02/26/18 07:00 02/28/18 06:05 Synthroid - PO 88 mcg DAILY@0700 [facility] Administration Pantoprazole Sodium 40 mg 02/26/18 10:00 02/28/18 10:30 Protonix - PO 40 mg DAILY [facility] Administration Polyethylene Glycol 17 gm 02/26/18 10:00 02/28/18 10:39 Miralax (For Daily Use) - PO Not Given DAILY [facility]OMA Ramipril 5 mg 02/27/18 10:23 02/28/18 10:30 Altace - PO 5 mg DAILY [facility] Administration Ranolazine 500 mg 02/25/18 22:00 02/28/18 10:29 Ranexa - PO 500 mg BID [facility] Administration Repaglinide 2 mg 02/26/18 12:00 02/28/18 12:07 Prandin - PO 2 mg DAILY@1200 [facility] Administration Senna 1 tab 02/25/18 22:00 02/28/18 10:30 Senna - PO 1 tab BID [facility] Administration ASSESSMENT/PLAN: This is an 82 year old woman with a history of CAD, CABG, HTN, hyperlipidemia, CHF, type 2 DM, GERD, hypothyroidism, left 1st toe osteomyelitis, dementia, chronic vaginitis, constipation who presented to the ED with LLQ pain and was found to have abnormal EKG. 1. Abdominal pain secondary to chronic vaginitis and constipation - Improved - Continue Colace, Senna - Patient prefers MOM over Miralax 2. Abnormal EKG - Cardiology input appreciated 3. Lactic acidemia secondary to dehydration - Improved - Discontinue IV fluid - Repeat lactic acid in AM - Continue to hold metformin 4. Hyponatremia - Improving - Discontinue IV fluid - Repeat electrolytes in AM 5. Dehydration - Improved - Discontinue IV fluid 6. CAD, history of CABG - Continue aspirin, Coreg, Lipitor, Ranexa 7. HTN - Continue Coreg, Altace 8. Hyperlipidemia - Continue Lipitor 9. Chronic systolic and diastolic heart failure - Stable - Continue Coreg, Altace 10. Hypothyroidism - Continue Synthroid 11. Type 2 DM with peripheral neuropathy - Continue to hold metformin secondary to lactic acidemia - Continue Levemir, Prandin, Novolog sliding scale, Neurontin 12. GERD - Continue Protonix 13. Dementia Visit type - Emergency Visit Emergency Visit: Yes ED Registration Date: 02/26/18 Care time: The patient presented to the Emergency Department on the above date and was hospitalized for further evaluation of their emergent condition. - New Patient This patient is new to me today: No - Critical Care Critical Care patient: No - Discharge Referral Referred to [facility] Med [facility].C[facility] No
[2018-02-28] MEDS: INSULIN (LEVEMIR) 100 UNITS/ML UNITS SQ SCH (23:19)
[2018-02-28] MEDS: ATORVASTATIN CA 40 MG TABLET (FP) PO SCH (23:20)
[2018-03-01] MEDS: HEPARIN NA (PORCINE) 5,000 UNITS/ML 1ML VIAL SQ SCH ×2 (06:36→13:44)
[2018-03-01] MEDS: GABAPENTIN 300 MG CAPSULE (FP) PO SCH ×2 (06:36→13:43)
[2018-03-01] MEDS: DOCUSATE SODIUM 100 MG CAPSULE (FP) PO SCH ×2 (06:37→13:43)
[2018-03-01] MEDS: INSULIN SLIDING SCALE (NOVOLOG) 1 VIAL SQ SCH ×2 (06:40→11:52)
[2018-03-01] MEDS: LEVOTHYROXINE NA 88 MCG TABLET (FP) PO SCH (06:41)
--- NOTE | 2018-03-01 07:33 | PN ---
Progress Note (short form) - Note Progress Note: Chief Complaint: Events noted, notes reviewed, denies abdominal discomfort, denies any chest discomfort or dyspnea History of Present Illness: Seen and examined on telemetry. Events noted, notes reviewed, denies abdominal discomfort, denies any chest discomfort or dyspnea 09/10/2017 Echo: (Old LAD infarct) mild-moderate decrease in LV systolic function, mild ISA, trace MR, severe apical septal and apical lateral hypokinesia Medications: Current Medications Aspirin (Asa -) 81 mg PO DAILY [facility] Last Admin: 02/28/18 10:29 Dose: 81 mg Atorvastatin Calcium (Lipitor -) 40 mg PO HS [facility] Last Admin: 02/28/18 23:20 Dose: 40 mg Carvedilol (Coreg -) 12.5 mg PO BID [facility] Last Admin: 02/28/18 23:19 Dose: 12.5 mg Docusate Sodium (Colace -) 100 mg PO TID [facility] Last Admin: 03/01/18 06:37 Dose: 100 mg Gabapentin (Neurontin -) 600 mg PO TID [facility] Last Admin: 03/01/18 06:36 Dose: 600 mg Heparin Sodium (Porcine) (Heparin -) 5,000 unit SQ TID [facility] Last Admin: 03/01/18 06:36 Dose: 5,000 unit Insulin Aspart (Novolog Vial Sliding Scale -) [facility] Last Admin: 03/01/18 06:40 Dose: 2 units Insulin Detemir (Levemir Vial) 35 units SQ [facility] Last Admin: 02/28/18 23:19 Dose: 35 units Levothyroxine Sodium (Synthroid -) 88 mcg PO DAILY@0700 [facility] Last Admin: 03/01/18 06:41 Dose: 88 mcg Magnesium Hydroxide (Milk Of Magnesia -) 30 ml PO DAILY PRN PRN Reason: CONSTIPATION Pantoprazole Sodium (Protonix -) 40 mg PO DAILY [facility] Last Admin: 02/28/18 10:30 Dose: 40 mg Ramipril (Altace -) 5 mg PO DAILY [facility] Last Admin: 02/28/18 10:30 Dose: 5 mg Ranolazine (Ranexa -) 500 mg PO BID [facility] Last Admin: 02/28/18 23:20 Dose: 500 mg Repaglinide (Prandin -) 2 mg PO DAILY@1200 [facility] Last Admin: 02/28/18 12:07 Dose: 2 mg Senna (Senna -) 1 tab PO BID [facility] Last Admin: 02/28/18 23:20 Dose: 1 tab Review of Systems Cardiovascular: As noted above Respiratory: denies: Cough or Sputum Production Gastrointestinal: denies: Nausea, Vomiting, or Constipation reports Abdominal Discomfort and Diarrhea Musculoskeletal: No Symptoms Reported Endocrine: No Symptoms Reported Vital Signs: Last Vital Signs Temp Pulse Resp BP Pulse Ox 97.5 F L 59 L 20 98/34 L 96 03/01/18 02:50 03/01/18 02:50 03/01/18 02:50 03/01/18 02:50 02/28/18 21:00 Intake & Output 02/26/18 02/27/18 02/28/18 03/01/18 23:59 23:59 23:59 23:59 Intake Total 20 1240 1450 Balance 20 1240 1450 Weight 165 lb 166 lb 5.6 oz 166 lb 12.8 oz Constitutional: No Distress, Calm Neck: Supple negative JVD no bruit appreciated Respiratory: diminished Breath Sounds Bilaterally Cardiovascular: S1 and S2 Regular Rate and Rhythm grade 1/6 systolic ejection murmur Gastrointestinal: Soft Normal Bowel Sounds Ext: Trace edema bilaterally Labs: CBC, BMP 02/28/18 06:30 Hepatic Panel Total Bilirubin 0.3 mg/dL (0.2-1) 02/25/18 10:15 AST 13 U/L (15-37) L 02/25/18 10:15 ALT 23 U/L (13-61) 02/25/18 10:15 Alkaline Phosphatase 138 U/L (45-117) H 02/25/18 10:15 Albumin 3.7 g/dl (3.4-5.0) 02/25/18 10:15 Assessment/Plan ASSESSMENT: 1. Abdominal discomfort/resolved, lactic acidosis/resolved 2. Systolic/diastolic LV dysfunction with chronic class I NYHA classification LV failure, clinically compensated/euvolemic 3. CAD post [place], CABG, angina pectoris 4. History of cerebro-vascular disease 5. History of PAD 6. HTN 7. DM 8. Hyperlipidemia 9. Hypothyroidism 10. CKD 11. Hyponatremia PLAN: 1. Continue Carvedilol, hemodynamics permitting 2. Continue Altace, hemodynamics permitting 3. Continue Ranexa 4. Continue Lipitor 5. Continue ASA 6. As outlined in prior notes consider the addition of Jardiance if not contraindicated (cardiovascular benefits) 7. Additional cardiovascular evaluation as outpatient, to be D/C home followup in the office Evelio Howard M.D.
[2018-03-01 07:52] LABS: ANION GAP 6 MMOL/L (8-16); BLOOD UREA NITROGEN 18 mg/dL (7-18); CALCIUM 8.5 mg/dL (8.5-10.1); CHLORIDE 99 mmol/L (98-107); CO2 28 mmol/L (21-32); CREATININE 1.2 mg/dL (0.55-1.3); GLUCOSE,RANDOM 192 mg/dL (74-106); POTASSIUM 4.4 mmol/L (3.5-5.1); SODIUM 133 mmol/L (136-145)
[2018-03-01] MEDS: ASPIRIN 81 MG CHEWABLE TABLETS PO SCH (09:54)
[2018-03-01] MEDS: RANOLAZINE E.R. 500 MG TABLET (FP) PO SCH (09:54)
[2018-03-01] MEDS: PANTOPRAZOLE 40 MG TABLET (FP) PO SCH (09:54)
[2018-03-01] MEDS: RAMIPRIL 5 MG CAPSULE (FP) PO SCH (09:54)
[2018-03-01] MEDS: SENNOSIDES 8.6MG TABLET (FP) PO SCH (09:54)
--- NOTE | 2018-03-01 10:11 | DS ---
Physical Exam: SUBJECTIVE: Patient seen and examined OBJECTIVE: Vital Signs Period Temp Pulse Resp BP Sys/Ibarra Pulse Ox Last 24 Hr 97.5 F-98.7 F 55-62 16-20 98-173/30-66 96-97 PHYSICAL EXAM GENERAL: The patient is awake, alert, and fully oriented, in no acute distress. HEAD: Normal with no signs of trauma. EYES: PERRL, extraocular movements intact, sclera anicteric, conjunctiva clear. ENT: Ears normal, nares patent, oropharynx clear without exudates, moist mucous membranes. NECK: Trachea midline, full range of motion, supple. LUNGS: Breath sounds equal, clear to auscultation bilaterally, no wheezes, no crackles, no accessory muscle use. HEART: Regular rate and rhythm, S1, S2 without murmur, rub or gallop. ABDOMEN: Soft, nontender, nondistended, normoactive bowel sounds, no guarding, no rebound, no hepatosplenomegaly, no masses. EXTREMITIES: 2+ pulses, warm, well-perfused, no edema. NEUROLOGICAL: Cranial nerves II through XII grossly intact. Normal speech, gait not observed. PSYCH: Normal mood, normal affect. SKIN: Warm, dry, normal turgor, no rashes or lesions noted. LABS Laboratory Results - last 24 hr 02/28/18 02/28/18 02/28/18 11:15 16:39 23:18 Sodium Potassium Chloride Carbon Dioxide Anion Gap BUN Creatinine Creat Clearance w eGFR POC Glucometer 259 182 215 Random Glucose Lactic Acid Calcium 03/01/18 03/01/18 03/01/18 05:30 05:30 06:20 Sodium 133 L Potassium 4.4 Chloride 99 Carbon Dioxide 28 Anion Gap 6 L BUN 18 Creatinine 1.2 Creat Clearance w eGFR 43.01 POC Glucometer 180 Random Glucose 192 H Lactic Acid 1.3 Calcium 8.5 HOSPITAL COURSE: Date of Admission:02/26/18 Date of Discharge: 03/01/18 Discharge Summary Reason For Visit: ABNORMAL ELECTROCARDIOGRAPHY, ABDOMINAL PAIN Current Active Problems Abnormal EKG (Acute) Dehydration (Acute) Hyponatremia (Acute) Lactic acidemia (Acute) CAD (coronary artery disease) (Chronic) CKD (chronic kidney disease) stage 3, GFR 30-59 ml/min (Chronic) Chronic combined systolic and diastolic heart failure (Chronic) Chronic vaginitis (Chronic) Constipation (Chronic) Dementia (Chronic) Diabetic neuropathy (Chronic) GERD (gastroesophageal reflux disease) (Chronic) Hyperlipidemia (Chronic) Hypertension (Chronic) Hypertensive cardiomyopathy (Chronic) Hypothyroidism (Chronic) S/P CABG (coronary artery bypass graft) (Chronic) Type 2 diabetes mellitus (Chronic) Condition: Improved - Instructions Diet, Activity, Other Instructions: You were admitted at [facility] on 02/25 for abdominal pain, constipation, and an abnormal EKG. You were also found to be dehydrated. You were treated with multiple laxatives and IV fluid. You were seen by a mail service coordinator, Dr. Evelio Howard, and it was recommended that you have further cardiac evaluation as an outpatient. Your dose of Altace (Ramipril) was increased to obtain better blood pressure control. You are being discharged on 03/01. You may resume your usual diabetic diet and you should drink fluids to keep hydrated. You should take Colace (stool softener) and Senna (laxative) to prevent constipation, and use milk of magnesia if you do not move your bowels in 2 days. You may resume your usual activity. You should schedule appointments with your primary care physician, Dr. Waylon Zhu, and your mail service coordinator or Dr. Howard in 1 week. Referrals: Luz Kaur MD [Primary Care Provider] - 1 Week Disposition: HOME - Home Medications Comprehensive Discharge Medication List: Ambulatory Orders Aspirin [ASA -] 81 mg PO DAILY 08/20/17 Carvedilol [Coreg -] 12.5 mg PO BID 08/20/17 Levothyroxine [Synthroid -] 88 mcg PO DAILY 08/20/17 Omeprazole 40 mg PO DAILY 08/20/17 Ranolazine [Ranexa] 500 mg PO BID 08/20/17 Atorvastatin Ca [Lipitor] 40 mg PO HS #30 tablet 09/21/17 Repaglinide [Prandin -] 2 mg PO DAILY 11/22/17 Gabapentin [Neurontin -] 600 mg PO TID 02/25/18 Insulin Aspart Prot/Insuln Asp [Novolog Mix 70-30 Flexpen Syrn] 25 unit SQ BID 02/25/18 Insulin Detemir [Levemir Flextouch] 35 unit SQ HS 02/25/18 Docusate Sodium [Colace -] 100 mg PO TID capsule 03/01/18 Magnesium Hydrox 2400MG/30Ml [Milk of Magnesia -] 30 ml PO DAILY PRN cup Ramipril [Altace] 5 mg PO DAILY #30 capsule 03/01/18 Sennosides [Senna -] 1 tab PO BID tablet 03/01/18 - Discharge Referral Referred to [facility] No
[2018-03-01] MEDS: CARVEDILOL 12.5 MG TABLET (FP) PO SCH (10:15)
[2018-03-01] MEDS: REPAGLINIDE 1 MG TABLET PO SCH (11:44)
[2018-03-01 14:50] VITALS: BP 111/48; PULSE 60; TEMP 98
== END 2018-03-01 15:07 | disposition home or self-care (01) | DRG 392 ==
LOC: JER 08:55 → JERBED 14:28 → J4W 20:14 → OBSVTOIN 02-26 16:53
PROVIDERS: ADMIT Internal Medicine; ATTEND Internal Medicine
DX: K59.09 Other constipation (principal); E87.2 Acidosis; I13.0 Hypertensive heart and chronic kidney disease with heart failure and stage 1 through stage 4 chronic kidney disease, or unspecified chronic kidney disease; I50.42 Chronic combined systolic (congestive) and diastolic (congestive) heart failure; E87.1 Hypo-osmolality and hyponatremia; I42.9 Cardiomyopathy, unspecified; E78.5 Hyperlipidemia, unspecified; I25.119 Atherosclerotic heart disease of native coronary artery with unspecified angina pectoris; E03.9 Hypothyroidism, unspecified; N76.1 Subacute and chronic vaginitis; R32 Unspecified urinary incontinence; E11.40 Type 2 diabetes mellitus with diabetic neuropathy, unspecified; E11.51 Type 2 diabetes mellitus with diabetic peripheral angiopathy without gangrene; K21.9 Gastro-esophageal reflux disease without esophagitis; F03.90 Unspecified dementia, unspecified severity, without behavioral disturbance, psychotic disturbance, mood disturbance, and anxiety; R94.31 Abnormal electrocardiogram [ECG] [EKG]; E11.42 Type 2 diabetes mellitus with diabetic polyneuropathy; N18.3 Chronic kidney disease, stage 3 (moderate); T38.3X5A Adverse effect of insulin and oral hypoglycemic [antidiabetic] drugs, initial encounter; E86.0 Dehydration; R10.32 Left lower quadrant pain; E11.65 Type 2 diabetes mellitus with hyperglycemia; E11.22 Type 2 diabetes mellitus with diabetic chronic kidney disease; Z95.1 Presence of aortocoronary bypass graft; Z86.73 Personal history of transient ischemic attack (TIA), and cerebral infarction without residual deficits
CPT/HCPCS: 36415; 74176-TC; 80048; 80053; 81003; 82550; 82803; 82962; 83605; 83735; 84100; 84484; 85025; 85027; 87040; 87086; 93005; 93010; 93971-TC; 97116-GP; 97161-GP; 99283-25; G0277; G0378; G0463-25; J0131; J1644; J7030

== ENCOUNTER 2018-08-11 10:34 | Emergency (ER) | payer MEDICARE, OTHER ==
[2018-08-11 10:42] VITALS: TEMP 98; BMI 32.1
--- NOTE | 2018-08-11 11:21 | PDOC ---
Attending Attestation - Resident Resident Name: ChrisLalitha - ED Attending Attestation I have performed the following: I have examined & evaluated the patient, The case was reviewed & discussed with the resident, I agree w/resident's findings & plan, Exceptions are as noted - HPI HPI: 08/11/18 11:20 82-year-old female history of hypertension, hyperlipidemia, diabetes, CABG, chronic wound being followed by wound clinic sent by wound clinic for evaluation of lightheadedness. The states that she often has these symptoms denies vertigo, headache, palpitations, vision changes, nausea or vomiting, fever, chills, cough, dysuria, diarrhea, bpr, chest pain, abdominal pain, neck pain, back pain, leg swelling - the often resolve she has mentioned this to her primary care doctor in the past without any diagnosis. States that currently she is feeling better and is otherwise asymptomatic. PMD: Dr. Connors Will obtain labs to ro anemia, metaboli dernagement ekg to screen for acs will reassess - Physicial Exam PE: general: no acute distress, well appearing ent: mmm card: rrr, no mrg pulm: cta b/l abd: soft notnener skin: wound on L great toe w overlying dressig - Medical Decision Making 08/11/18 13:50 pts labs are reviewed note dfor hyperglycemia - pt had not taken her typical insulin yet will give her her insulin no signs of DKA will dc with pmd fu will have her go upsteairs to eval her wound Heart Score/ECG Review - ECG Impressions Comment:: 08/11/18 12:13 Twelve-lead EKG was performed and reviewed by me. There is normal sinus rhythm with a rate of 54. abnormal r wave progression
--- NOTE | 2018-08-11 11:34 | PDOC ---
History of Present Illness - General Chief Complaint: Lightheaded Stated Complaint: DIZZINESS sent from wound clinic Time Seen by Provider: 08/11/18 10:52 - History of Present Illness Initial Comments: Maricruz Villalobos is an 83yo woman with a PMH of HTN, HLD, DM, CAD, CHF, GERD, hypothyroidism, neuropathy, left great toe osteomyelitis who was sent from the wound clinic due to concerns that she "didn't look like herself." Her daughter is at bedside. According to wound clinic, Ms Villalobos had bloodshot eyes and was unable to stand up, which they state is unusual for her, and that Ms Villalobos said she was dizzy. They note that her daughter stated this is normal. Both the patient and her daughter state repeatedly that Ms Villalobos has these episodes of dizziness every day. It has been occurring daily for months or longer. Ms Villalobos says that her "head feels big" and her "entire body feels numb " and weak. This has been discussed with her PMD and communications intern in the past, and her daughter says that they have been told that it is most likely due to her chronic conditions. Both patient and daughter say that the wound clinic may never have seen one of the episodes in the past, as they occur at different times of the day, but both say again that the episodes occur daily. They deny that there is any difference between the symptoms today and any other day. Past History - Past Medical History Allergies/Adverse Reactions: Allergies Allergy/AdvReac Type Severity Reaction Status Date / Time No Known Drug Allergies Allergy Verified 08/11/18 10:42 Home Medications: Ambulatory Orders Aspirin [ASA -] 81 mg PO DAILY 08/20/17 Carvedilol [Coreg -] 12.5 mg PO BID 08/20/17 Levothyroxine [Synthroid -] 88 mcg PO DAILY 08/20/17 Omeprazole 40 mg PO DAILY 08/20/17 Ranolazine [Ranexa] 500 mg PO BID 08/20/17 Atorvastatin Ca [Lipitor] 40 mg PO HS #30 tablet 09/21/17 Repaglinide [Prandin -] 2 mg PO DAILY 11/22/17 Gabapentin [Neurontin -] 600 mg PO TID 02/25/18 Insulin Aspart Prot/Insuln Asp [Novolog Mix 70-30 Flexpen Syrn] 25 unit SQ BID 02/25/18 Insulin Detemir [Levemir Flextouch] 35 unit SQ HS 02/25/18 Docusate Sodium [Colace -] 100 mg PO TID capsule 03/01/18 Magnesium Hydrox 2400MG/30Ml [Milk of Magnesia -] 30 ml PO DAILY PRN cup Ramipril [Altace] 5 mg PO DAILY #30 capsule 03/01/18 Sennosides [Senna -] 1 tab PO BID tablet 03/01/18 Anemia: No Asthma: No Cancer: No Cardiac Disorders: Yes CVA: Yes COPD: No CHF: Yes DVT: No Dementia: No Diabetes: Yes GI Disorders: Yes (Ulcers) Disorders: (ulcers) HTN: Yes Hypercholesterolemia: Yes Liver Disease: No Seizures: No Thyroid Disease: No Other medical history: foot ulcer, dizziness - Surgical History Abdominal Surgery: No Appendectomy: No Cardiac Surgery: Yes (triple bypass) Cholecystectomy: No Lung Surgery: No Neurologic Surgery: No Orthopedic Surgery: Yes (RT ELBOW SX) - Immunization History Immunization Up to Date: No - Suicide/Smoking/Psychosocial Hx Smoking Status: No Smoking History: Never smoked Have you smoked in the past 12 months: No Number of Cigarettes Smoked Daily: 0 Information on smoking cessation initiated: No Hx Alcohol Use: No Drug/Substance Use Hx: No Substance Use Type: None Hx Substance Use Treatment: No Review of Systems - Review of Systems Comments:: General: No fevers, no chills, no weight or appetite change, no malaise HEENT: No changes in vision, no changes in hearing, no congestion, no sore throat CV: No chest pain, no palpitations, no LE edema Pulm: No SOB, no cough, no wheezing GI: No nausea or vomiting, no change in bowel habits, no melena : No frequency, no urgency, no dysuria Musc: No back pain, no joint swelling, no recent injury Skin: No rash, no lesions, no erythema Endo: No excessive thirst, no heat/cold intolerance Heme: No unusual bruising or bleeding, no swollen glands Neuro: No syncope, no focal weakness. See HPI Vasc: No claudication Psych: No recent change in mood, no SI or HI *Physical Exam - Vital Signs Last Vital Signs Temp Pulse Resp BP Pulse Ox 98 F 54 L 18 156/49 L 98 08/11/18 10:40 08/11/18 10:40 08/11/18 10:40 08/11/18 10:40 08/11/18 10:40 - Physical Exam Comments: General: Comfortable, no acute distress HEENT: PERRL, EOMI, MMM, clear scleara, voice normal Cards: RRR, no murmur appreciated Pulm: Comfortable on room air, clear to auscultation bilaterally Abd: Soft, nontender, nondistended Ext: Atraumatic. No LE edema. ROM intact. L great toe with bandage in place Vasc: Extremities WWP. Skin: Normal color, no rashes or lesions Neuro: A&Ox3, CN grossly intact, normal speech, motor/sensory grossly intact and symmetric Psych: Mood appropriate to situation Moderate Sedation - Procedure Monitoring Vital Signs: Procedure Monitoring Vital Signs Temperature 98 F 08/11/18 10:40 Pulse Rate 54 L 08/11/18 10:40 Respiratory Rate 18 08/11/18 10:40 Blood Pressure 156/49 L 08/11/18 10:40 O2 Sat by Pulse Oximetry (%) 98 08/11/18 10:40 ED Treatment Course - LABORATORY CBC & Chemistry Diagram: 08/11/18 12:44 08/11/18 12:44 Medical Decision Making - Medical Decision Making 08/11/18 11:28 Maricruz Antonio Villalobos is an 83yo woman with a PMH of HTN, HLD, DM, CAD, CHF, GERD, hypothyroidism, neuropathy, left great toe osteo sent from the wound clinic due to concerns that she "didn't look like herself." Per Ms Villalobos, she is feeling numb/weak, which she describes as "dizzy," but this is chronic. Both the patient and her daughter are adamant that the symptom occurs daily, and she is in her normal state of health today. - No recent labs - Will r/o severe anemia, electrolyte abnormalities, cardiac arrhythmia - CBC, chemistry, EKG 08/11/18 13:51 - Labs reviewed, compared to previous results. No concerning abnormalities. - EKG without concerning changes - Will d/c with PMD follow up. 08/11/18 14:24 - Glucose 369 - No s/s of DKA on labs or PE - Giving home insulin 20u Novolog prior to discharge Discussed with Dr Clayton. Lalitha Perez PGY1 *DC/Admit/Observation/Transfer Diagnosis at time of Disposition: Dizziness - Discharge Dispostion Disposition: HOME Condition at time of disposition: Stable Decision to Admit order: No - Referrals Referrals: Luz Kaur MD [Primary Care Provider] - - Patient Instructions Printed Discharge Instructions: DI for Dizziness-Nonvertigo Additional Instructions: Discharge Instructions; You were seen in the ER for dizziness. You had an EKG and blood tests to make sure the dizziness today was not caused by any new medical condition, but there were no concerning changes found. Home Care and Follow Up: - Take all of your home medications as previously prescribed - Keep track of when you feel dizzy to see if there is any pattern to the symptoms - Make an appointment to see your regular doctor within the next week for follow up - Seek immediate medical care if you have any chest pain, shortness of breath, one-sided weakness or numbness, or you have any medical emergency. - Post Discharge Activity
[2018-08-11 13:02] LABS: BASO % 0.8 % (0-2.0); EOS % 3.3 % (0-4.5); HEMATOCRIT 35.1 % (32.4-45.2); HEMOGLOBIN 11.9 GM/dL (10.7-15.3); LYMPH % 39.4 % (8-40); MCH 31.3 pg (25.7-33.7); MEAN CELL VOLUME 92.2 fl (80-96); MEAN PLT VOLUME 8.9 fl (7.5-11.1); MONO % 9.1 % (3.8-10.2); NEUT % 47.4 % (42.8-82.8); PLATELET COUNT 219 K/MM3 (134-434); RBC 3.81 M/mm3 (3.60-5.2); RDW 14.5 % (11.6-15.6); WHITE BLOOD COUNT 6.7 K/mm3 (4.0-10.0)
[2018-08-11 13:43] LABS: ALBUMIN 3.2 g/dl (3.4-5.0); ALK PHOS 161 U/L (45-117); ANION GAP 4 MMOL/L (8-16); BILIRUBIN,TOTAL 0.3 mg/dL (0.2-1); BLOOD UREA NITROGEN 31 mg/dL (7-18); CALCIUM 8.8 mg/dL (8.5-10.1); CHLORIDE 97 mmol/L (98-107); CO2 30 mmol/L (21-32); CREATININE 1.2 mg/dL (0.55-1.3); MAGNESIUM 2.2 mg/dL (1.8-2.4); PHOSPHOROUS 3.9 mg/dL (2.5-4.9); POTASSIUM 5.4 mmol/L (3.5-5.1); SGOT/AST 14 U/L (15-37); SGPT/ALT 21 U/L (13-61); SODIUM 131 mmol/L (136-145); TOT PROT 7.1 g/dl (6.4-8.2)
[2018-08-11 14:05] LABS: GLUCOSE,RANDOM 369 mg/dL (74-106)
[2018-08-11 14:07] VITALS: BP 122/45; PULSE 53
[2018-08-11] MEDS ORDERED: INSULIN (NOVOLOG MIX 70/30) 100 UNITS/ML MDV SQ ONE ×4 (14:20→15:28)
--- NOTE | 2018-08-12 11:08 | EKG ---
Test Reason : Blood Pressure : / mmHG Vent. Rate : 054 BPM Atrial Rate : 054 BPM P-R Int : 192 ms QRS Dur : 100 ms QT Int : 460 ms P-R-T Axes : 060 065 120 degrees QTc Int : 436 ms SINUS BRADYCARDIA WITH SINUS ARRHYTHMIA POSSIBLE ANTERIOR INFARCT , AGE UNDETERMINED NONSPECIFIC T WAVE ABNORMALITY Confirmed by MARIVEL LOPEZ MD ([id number]) on 08/12/2018 11:07:35 AM Referred By: Confirmed By:MARIVEL LOPEZ MD
== END 2018-08-11 15:31 | disposition home or self-care (01) ==
LOC: JER 10:34
PROC: 3E013VG Introduction of Insulin into Subcutaneous Tissue, Percutaneous Approach (ICD-10-PCS; principal; 2018-08-11)
DX: R42 Dizziness and giddiness (principal); I25.10 Atherosclerotic heart disease of native coronary artery without angina pectoris; I11.0 Hypertensive heart disease with heart failure; Z95.1 Presence of aortocoronary bypass graft; E11.65 Type 2 diabetes mellitus with hyperglycemia; Z79.4 Long term (current) use of insulin; E78.5 Hyperlipidemia, unspecified; E03.9 Hypothyroidism, unspecified; L97.528 Non-pressure chronic ulcer of other part of left foot with other specified severity
CPT/HCPCS: 36415; 80053; 82962; 83735; 84100; 85025; 93005; 93010; 99281-25; G0463-25

== ENCOUNTER 2018-08-18 09:19 | Inpatient (IN) | payer MEDICARE, OTHER ==
--- NOTE | 2018-08-18 09:29 | PDOC ---
History of Present Illness - History of Present Illness Initial Comments: 08/18/18 09:30 83 year old woman with a PMH of HTN, HLD, DM, CAD, CHF, GERD, hypothyroidism, neuropathy, left great toe osteomyelitis who presents with - General Stated Complaint: PAIN Time Seen by Provider: 08/18/18 09:29 Past History - Past Medical History Anemia: No Asthma: No Cancer: No Cardiac Disorders: Yes CVA: Yes COPD: No CHF: Yes DVT: No Dementia: No Diabetes: Yes GI Disorders: Yes (Ulcers) Disorders: (ulcers) HTN: Yes Hypercholesterolemia: Yes Liver Disease: No Seizures: No Thyroid Disease: No - Surgical History Abdominal Surgery: No Appendectomy: No Cardiac Surgery: Yes (triple bypass) Cholecystectomy: No Lung Surgery: No Neurologic Surgery: No Orthopedic Surgery: Yes (RT ELBOW SX) - Immunization History Immunization Up to Date: No - Suicide/Smoking/Psychosocial Hx Smoking Status: No Smoking History: Never smoked Have you smoked in the past 12 months: No Number of Cigarettes Smoked Daily: 0 Hx Alcohol Use: No Drug/Substance Use Hx: No Substance Use Type: None Hx Substance Use Treatment: No - Past Medical History Allergies/Adverse Reactions: Allergies Allergy/AdvReac Type Severity Reaction Status Date / Time No Known Drug Allergies Allergy Verified 08/11/18 10:42 Home Medications: Ambulatory Orders Aspirin [ASA -] 81 mg PO DAILY 08/20/17 Carvedilol [Coreg -] 12.5 mg PO BID 08/20/17 Levothyroxine [Synthroid -] 88 mcg PO DAILY 08/20/17 Omeprazole 40 mg PO DAILY 08/20/17 Ranolazine [Ranexa] 500 mg PO BID 08/20/17 Atorvastatin Ca [Lipitor] 40 mg PO HS #30 tablet 09/21/17 Repaglinide [Prandin -] 2 mg PO DAILY 11/22/17 Gabapentin [Neurontin -] 600 mg PO TID 02/25/18 Insulin Aspart Prot/Insuln Asp [Novolog Mix 70-30 Flexpen Syrn] 25 unit SQ BID 02/25/18 Insulin Detemir [Levemir Flextouch] 35 unit SQ HS 02/25/18 Docusate Sodium [Colace -] 100 mg PO TID capsule 03/01/18 Magnesium Hydrox 2400MG/30Ml [Milk of Magnesia -] 30 ml PO DAILY PRN cup Ramipril [Altace] 5 mg PO DAILY #30 capsule 03/01/18 Sennosides [Senna -] 1 tab PO BID tablet 03/01/18
--- NOTE | 2018-08-18 09:59 | PDOC ---
History of Present Illness <Shanice Gallegos - Last Filed: 08/18/18 10:10> <Eugenia Dale - Last Filed: 08/18/18 17:43> - General History Source: Patient, Family, Old Records Exam Limitations: No Limitations <Rodo Triplett - Last Filed: 08/18/18 17:47> - General Chief Complaint: Back Pain Stated Complaint: PAIN Time Seen by Provider: 08/18/18 09:29 Past History <Shanice Gallegos - Last Filed: 08/18/18 10:10> <Eugenia Dale - Last Filed: 08/18/18 17:43> - Past Medical History Anemia: No Asthma: No Cancer: No Cardiac Disorders: Yes CVA: Yes COPD: No CHF: Yes DVT: No Dementia: No Diabetes: Yes GI Disorders: Yes (Ulcers) Disorders: (ulcers) HTN: Yes Hypercholesterolemia: Yes Liver Disease: No Seizures: No Thyroid Disease: No - Surgical History Abdominal Surgery: No Appendectomy: No Cardiac Surgery: Yes (triple bypass) Cholecystectomy: No Lung Surgery: No Neurologic Surgery: No Orthopedic Surgery: Yes (RT ELBOW SX) - Immunization History Immunization Up to Date: No - Suicide/Smoking/Psychosocial Hx Smoking Status: No Smoking History: Never smoked Have you smoked in the past 12 months: No Number of Cigarettes Smoked Daily: 0 Hx Alcohol Use: No Drug/Substance Use Hx: No Substance Use Type: None Hx Substance Use Treatment: No <Rodo Triplett - Last Filed: 08/18/18 17:47> - Past Medical History Allergies/Adverse Reactions: Allergies Allergy/AdvReac Type Severity Reaction Status Date / Time No Known Drug Allergies Allergy Verified 08/18/18 10:02 Home Medications: Ambulatory Orders Aspirin [ASA -] 81 mg PO DAILY 08/20/17 Carvedilol [Coreg -] 12.5 mg PO BID 08/20/17 Levothyroxine [Synthroid -] 88 mcg PO DAILY 08/20/17 Omeprazole 40 mg PO DAILY 08/20/17 Ranolazine [Ranexa] 500 mg PO BID 08/20/17 Atorvastatin Ca [Lipitor] 40 mg PO HS #30 tablet 09/21/17 Repaglinide [Prandin -] 2 mg PO DAILY 11/22/17 Gabapentin [Neurontin -] 600 mg PO TID 02/25/18 Insulin Aspart Prot/Insuln Asp [Novolog Mix 70-30 Flexpen Syrn] 25 unit SQ BID 02/25/18 Insulin Detemir [Levemir Flextouch] 35 unit SQ HS 02/25/18 Docusate Sodium [Colace -] 100 mg PO TID capsule 03/01/18 Magnesium Hydrox 2400MG/30Ml [Milk of Magnesia -] 30 ml PO DAILY PRN cup Ramipril [Altace] 5 mg PO DAILY #30 capsule 03/01/18 Sennosides [Senna -] 1 tab PO BID tablet 03/01/18 *Physical Exam - Vital Signs Last Vital Signs Temp Pulse Resp BP Pulse Ox 98 F 72 16 151/74 100 08/18/18 09:20 08/18/18 09:20 08/18/18 09:20 08/18/18 09:20 08/18/18 09:20 - Physical Exam Comments: 08/18/18 10:10 GENERAL: Awake, alert, and fully oriented, +Mildly uncomfortable appearing HEAD: No signs of trauma EYES: PERRLA, EOMI, sclera anicteric, conjunctiva clear ENT: Auricles normal inspection, hearing grossly normal, nares patent, Moist mucosa NECK: Normal ROM, supple, JVD, or masses LUNGS: Breath sounds equal, clear to auscultation bilaterally. No wheezes, and no crackles HEART: Regular rate and rhythm, normal S1 and S2, no murmurs, rubs or gallops ABDOMEN: Soft, nontender, No guarding, no rebound. No masses EXTREMITIES: +Chronic left shoulder pain on movement without obvious deformity. 2+ Radial pulses. Right hip is tender to palpation. Pelvis is stale. Sensation intact throughout. Normal range of motion, no edema. No clubbing or cyanosis. No cords, erythema. NEUROLOGICAL: Cranial nerves II through XII grossly intact. Normal speech SKIN: +Chronic healing left great toe wound. Warm, Dry, normal turgor, no rashes noted. <Shanice Gallegos - Last Filed: 08/18/18 10:10> - Vital Signs Last Vital Signs Temp Pulse Resp BP Pulse Ox 98 F 72 16 151/74 100 08/18/18 09:20 08/18/18 09:20 08/18/18 09:20 08/18/18 09:20 08/18/18 09:20 <Eugenia Dale - Last Filed: 08/18/18 17:43> Heart Score/ECG Review #1 ECG reviewed & interpreted by me at: 11:30 08/18/18 11:48 NSR 71, no std/zahira, ST & T wave abnormality, lateral distribution, QTC 454 msec , normal axis <Isabela Triplettel - Last Filed: 08/18/18 17:47> ED Treatment Course - LABORATORY CBC & Chemistry Diagram: 08/18/18 11:22 08/18/18 11:22 - ADDITIONAL ORDERS Additional order review: Laboratory Results 08/18/18 08/18/18 08/18/18 14:31 11:22 10:49 Sodium 130 L Potassium 5.2 H Chloride 97 L Carbon Dioxide 27 Anion Gap 6 L BUN 37 H Creatinine 1.2 Creat Clearance w eGFR 42.90 POC Glucometer 351 Random Glucose 350 H* Calcium 9.3 Phosphorus 4.4 Magnesium 2.6 H Total Bilirubin 0.5 AST 25 ALT 34 Alkaline Phosphatase 186 H Troponin I < 0.02 Total Protein 8.1 Albumin 3.7 TSH 4.44 H Urine Color Yellow Urine Appearance Clear Urine pH 5.5 D Ur Specific [place] 1.019 Urine Protein Negative Urine Glucose (UA) 3+ H Urine Ketones Negative Urine Blood Negative Urine Nitrite Negative Urine Bilirubin Negative Urine Urobilinogen 0.2 Ur Leukocyte Esterase Trace Urine WBC (Auto) 5 Urine RBC (Auto) 2 Urine Casts (Auto) 0 U Epithel Cells (Auto) 0.5 Urine Bacteria (Auto) 11.7 08/18/18 08/18/18 14:31 11:22 RBC 4.08 MCV 91.0 MCHC 31.5 L RDW 14.6 MPV 8.8 Neutrophils % 73.1 D Lymphocytes % 16.1 D Monocytes % 9.2 Eosinophils % 1.0 Basophils % 0.6 POC Glucometer 351 - RADIOLOGY Radiology Studies Ordered: Category Date Time Status ABDOMEN & PELVIS CT W/O CONTR [CT] Stat CT Scan 08/18/18 14:10 Completed CXRPORT [CHEST X-RAY PORTABLE*] [RAD] Stat Radiology 08/18/18 17:05 Ordered HIP-RIGHT [RAD] Stat Radiology 08/18/18 09:56 Completed SHOULDER-LEFT [RAD] Stat Radiology 08/18/18 09:56 Completed - Medications Given in the ED: ED Medications Discontinued Medications Generic Name Dose Route Start Last Admin Trade Name Charleen PRN Reason Stop Dose Admin Acetaminophen 1,000 mg 08/18/18 11:48 08/18/18 12:52 Ofirmev Injection - IVPB 08/18/18 11:49 1,000 mg ONCE ONE Administration Insulin Human Regular 5 units 08/18/18 15:08 08/18/18 17:30 Novolin R Vial *For Ivpush Or Iv Drip Only* SQ 08/18/18 15:09 5 units ONCE ONE Administration Sodium Phosphate 133 ml 08/18/18 14:13 08/18/18 17:41 Fleet Adult Rectal Enema - ID 08/18/18 14:14 133 ml ONCE ONE Administration <Eugenia Dale - Last Filed: 08/18/18 17:43> - LABORATORY CBC & Chemistry Diagram: 08/18/18 11:22 08/18/18 11:22 <Rodo Triplett - Last Filed: 08/18/18 17:47> Medical Decision Making - Medical Decision Making 08/18/18 09:59 A portion of this note was documented by scribe services under my direction. I have reviewed the details of the note, within reason, and agree with the documentation with the following case summary and management plan written by me. Patient treated in the ED. Nursing notes are reviewed and incorporated into the medical decision-making. Vital signs reviewed. Peripheral IV access obtained by the nurse, laboratory studies are drawn and sent, reviewed and interpreted by myself. 83-year-old female history of hypertension, diabetes, hyperlipidemia, coronary disease, congestive heart failure, GERD, hypothyroidism, neuropathy, chronic pain, left great toe osteomyelitis presents with acute on chronic pain. The patient's daughter is at the bedside. The patient reports many years of this chronic pain that has progressively worsened. The patient reports that the pain specifically in the left shoulder and right hip. She was seen in the emergency department approximate 1 week ago which she had blood work performed. Was told that the symptoms at the time may be potentially secondary to hyperglycemia. Upon discharge, the patient felt slightly better but the patient continued to have persistent pain. The patient feels difficult to control pain. She has an appointment coming up with her primary care physician in the some coming week. Denies chest pain or shortness of breath. Denies palpitations. Does report some chronic constipation and hard stools but denies abdominal pain. Denies fevers or chills. The patient has been taking daily medications but reports no relief. Because the symptoms were persistent, the patient came to the ER. It is very possible that this may potentially be acute on chronic pain. However , the patient has been progressively worsening overall. Unclear what the etiology is at this moment. The patient's pain seems to be particularly in the left shoulder and the right hip. Upon previous visit, the patient had no imaging of those joints. We'll obtain imaging a left shoulder and right hip. We' ll initiate pain control and reassess. May potentially need to contact patient' s primary care physician in regards to disposition. 08/18/18 11:47 CBC, BMP 08/18/18 11:22 08/18/18 12:55 CMP Sodium 130 mmol/L (136-145) L 08/18/18 11:22 Potassium 5.2 mmol/L (3.5-5.1) H 08/18/18 11:22 Chloride 97 mmol/L (98-107) L 08/18/18 11:22 Carbon Dioxide 27 mmol/L (21-32) 08/18/18 11:22 Anion Gap 6 MMOL/L (8-16) L 08/18/18 11:22 BUN 37 mg/dL (7-18) H 08/18/18 11:22 Creatinine 1.2 mg/dL (0.55-1.3) 08/18/18 11:22 Creat Clearance w eGFR 42.90 (>60) 08/18/18 11:22 Random Glucose 350 mg/dL (74-106) H* 08/18/18 11:22 Calcium 9.3 mg/dL (8.5-10.1) 08/18/18 11:22 Phosphorus 4.4 mg/dL (2.5-4.9) 08/18/18 11:22 Magnesium 2.6 mg/dL (1.8-2.4) H 08/18/18 11:22 Total Bilirubin 0.5 mg/dL (0.2-1) 08/18/18 11:22 AST 25 U/L (15-37) 08/18/18 11:22 ALT 34 U/L (13-61) 08/18/18 11:22 Alkaline Phosphatase 186 U/L (45-117) H 08/18/18 11:22 Troponin I < 0.02 ng/ml (0.00-0.05) 08/18/18 11:22 Total Protein 8.1 g/dl (6.4-8.2) 08/18/18 11:22 Albumin 3.7 g/dl (3.4-5.0) 08/18/18 11:22 TSH 4.44 uIU/ml (0.358-3.74) H 08/18/18 11:22 Urine Test Results Urine Color Yellow 08/18/18 10:49 Urine Appearance Clear 08/18/18 10:49 Urine pH 5.5 (5.0-8.0) D 08/18/18 10:49 Ur Specific [place] 1.019 (1.010-1.035) 08/18/18 10:49 Urine Protein Negative (NEGATIVE) 08/18/18 10:49 Urine Glucose (UA) 3+ (NEGATIVE) H 08/18/18 10:49 Urine Ketones Negative (NEGATIVE) 08/18/18 10:49 Urine Blood Negative (NEGATIVE) 08/18/18 10:49 Urine Nitrite Negative (NEGATIVE) 08/18/18 10:49 Urine Bilirubin Negative (NEGATIVE) 08/18/18 10:49 Ur Leukocyte Esterase Trace (NEGATIVE) 08/18/18 10:49 Labs show persistent hyperglycemia of 350. Pt has been having difficult to control sugars lately despite adherence to her medications. Is she feeling body aches and cramping because of dehydration from polyuria and polydipsia. Will trial 500cc of NS. Trial IV tylenol. If persistently hyperglyecemic or with persistent pain, should consider potential observation. 08/18/18 16:35 Pt has been complaining of difficulty bowel movement and abdominal discomfort. CT pending. 08/18/18 17:05 CT demonstrates constipation but findings concerning for potential CHF. Pt does report some mild SOB. Will obtain BNP and reassess. 08/18/18 17:47 Given pleural effusions, cardiomegaly and mild SOB, as well as constipation and acute on chronic pain, will admit patient to observation for further evaluation. <Rodo Triplett - Last Filed: 08/18/18 17:47> *DC/Admit/Observation/Transfer - Attestations Scribe Attestion: 08/18/18 10:10 Documentation prepared by Shanice Gallegos, acting as medical parasitologist for Rodo Triplett MD, <Shanice Gallegos - Last Filed: 08/18/18 10:10> - Discharge Dispostion Decision to Admit order: Yes <Eugenia Dale - Last Filed: 08/18/18 17:43> <Rodo Triplett - Last Filed: 08/18/18 17:47> Diagnosis at time of Disposition: CHF exacerbation - Referrals Referrals: Luz Kaur MD [Primary Care Provider] -
[2018-08-18 11:14] LABS: EPI CELLS 0.5 /HPF (0-5); PH,URINE 5.5 (5.0-8.0); URINE APPEARANCE CLEAR; URINE BACTERIA 11.7 /hpf (NEGATIVE); URINE BILIRUBIN NEGATIVE (NEGATIVE); URINE CASTS 0 /hpf (0-8); URINE COLOR YELLOW; URINE GLUCOSE (UA) 3+ (NEGATIVE); URINE KETONE NEGATIVE (NEGATIVE); URINE LEUK ESTERASE TRACE (NEGATIVE); URINE NITRITE NEGATIVE (NEGATIVE); URINE PROTEIN NEGATIVE (NEGATIVE); URINE RBC 2 /hpf (0-4); URINE UROBILINOGEN 0.2 mg/dL (0.2-1.0); URINE WBC 5 /hpf (0-5)
[2018-08-18 11:41] LABS: BASO % 0.6 % (0-2.0); HEMATOCRIT 37.1 % (32.4-45.2); HEMOGLOBIN 11.7 GM/dL (10.7-15.3); LYMPH % 16.1 % (8-40); MCH 28.6 pg (25.7-33.7); MCHC 31.5 g/dl (32.0-36.0); MEAN PLT VOLUME 8.8 fl (7.5-11.1); MONO % 9.2 % (3.8-10.2); NEUT % 73.1 % (42.8-82.8); PLATELET COUNT 250 K/MM3 (134-434); RBC 4.08 M/mm3 (3.60-5.2); RDW 14.6 % (11.6-15.6); WHITE BLOOD COUNT 11.2 K/mm3 (4.0-10.0)
[2018-08-18] MEDS ORDERED: ACETAMINOPHEN 1000 MG/100 ML VIAL (NON FORMULARY) IVPB ONE (11:48)
[2018-08-18 12:26] LABS: ALBUMIN 3.7 g/dl (3.4-5.0); ALK PHOS 186 U/L (45-117); ANION GAP 6 MMOL/L (8-16); BILIRUBIN,TOTAL 0.5 mg/dL (0.2-1); BLOOD UREA NITROGEN 37 mg/dL (7-18); CALCIUM 9.3 mg/dL (8.5-10.1); CHLORIDE 97 mmol/L (98-107); CO2 27 mmol/L (21-32); CREATININE 1.2 mg/dL (0.55-1.3); MAGNESIUM 2.6 mg/dL (1.8-2.4); PHOSPHOROUS 4.4 mg/dL (2.5-4.9); POTASSIUM 5.2 mmol/L (3.5-5.1); SGOT/AST 25 U/L (15-37); SGPT/ALT 34 U/L (13-61); SODIUM 130 mmol/L (136-145); TOT PROT 8.1 g/dl (6.4-8.2)
[2018-08-18 12:33] LABS: GLUCOSE,RANDOM 350 mg/dL (74-106)
[2018-08-18] MEDS ORDERED: SODIUM CHLORIDE 1,000 ML IV SCH (12:45)
[2018-08-18] MEDS ORDERED: ACETAMINOPHEN INJECTION 100 ML IVPB ONE (12:54)
[2018-08-18] MEDS ORDERED: SODIUM PHOSPHATE/NA BIPHOS 133 ML ENEMA PR ONE (14:13)
[2018-08-18] MEDS ORDERED: INSULIN REGULAR HUMAN 100 UNITS/ML *VIAL SQ ONE ×2 (15:08→17:05)
[2018-08-18] MEDS ORDERED: FUROSEMIDE 40 MG/4 ML INJECTABLE VIAL IVPUSH ONE (17:18)
[2018-08-18] MEDS ORDERED: INSULIN REGULAR HUMAN 100 UNITS/ML *VIAL ONE ×2 (17:29→18:53)
[2018-08-18] MEDS ORDERED: PANTOPRAZOLE SODIUM 40 MG/100 ML BAG IVPB ONE (18:03)
[2018-08-18] MEDS ORDERED: SUCRALFATE 1 GM TABLET (FP) ONE (18:03)
[2018-08-18] MEDS ORDERED: LIDOCAINE VISCOUS 2% ORAL/TOP 20 ML UNIT-DOSE CUP ONE (18:03)
[2018-08-18 18:14] LABS: N-TERMINAL BNP 5285.1 pg/ml (5-450)
--- NOTE | 2018-08-18 18:38 | HP ---
CHIEF COMPLAINT: chronic pain PCP: Luz Kaur MD HISTORY OF PRESENT ILLNESS: Patient is an 83 y/o F w/ PMHx HTN, IDDM, HLD, CAD, CHF, GERD, neuropathy, chronic diffuse pain, hypothyroidism, chronic L great toe osteomyelitis p/w chief complaint of overall chronic body pain worsening over past three days, associated with constipation, shortness of breath without orthopnea, inconsistently affirming and denying chest pain and diffuse abdominal pain. States her abdomen is unusually large. Most focal areas of pain are left shoulder and right hip but patient affirms being in pain in every part of her body. Denies swelling/edema. On presentation vitals are stable, mild leukcytosis to 11.2, hyperglycemia to 350 without anion gap or abnormal bicarb. Initial EKG benign, initial troponin negative, second troponin 0.36. BNP > 5000 but at approximate baseline. CXR pending. CT a/p shows interval development since 02/25/18 of pulmonary vascular congestion and b/l effusions, additionally showed moderate colonic fecal retention. No recent echocardiogram Admitted to [facility] obs given troponemia and concern for CHF exacerbation. ER course was notable for: (1) 2nd troponin 0.36 (2) b/l pleural effusions/congestion on CT a/p (3) Recent Travel: PAST MEDICAL HISTORY: As per HPI PAST SURGICAL HISTORY: Social History: Smoking: Alcohol: Drugs: Family History: Allergies No Known Drug Allergies Allergy (Verified 08/18/18 10:02) HOME MEDICATIONS: Home Medications Medication Instructions Recorded Aspirin [ASA -] 81 mg PO DAILY 08/20/17 Carvedilol [Coreg -] 12.5 mg PO BID 08/20/17 Levothyroxine [Synthroid -] 88 mcg PO DAILY 08/20/17 Omeprazole 40 mg PO DAILY 08/20/17 Ranolazine [Ranexa] 500 mg PO BID 08/20/17 Atorvastatin Ca [Lipitor] 40 mg PO HS #30 tablet 09/21/17 Repaglinide [Prandin -] 2 mg PO DAILY 11/22/17 Gabapentin [Neurontin -] 600 mg PO TID 02/25/18 Insulin Aspart Prot/Insuln Asp 25 unit SQ BID 02/25/18 [Novolog Mix 70-30 Flexpen Syrn] Insulin Detemir [Levemir Flextouch] 35 unit SQ HS 02/25/18 Docusate Sodium [Colace -] 100 mg PO TID capsule 03/01/18 Magnesium Hydrox 2400MG/30Ml [Milk 30 ml PO DAILY PRN cup 03/01/18 of Magnesia -] Ramipril [Altace] 5 mg PO DAILY #30 capsule 03/01/18 Sennosides [Senna -] 1 tab PO BID tablet 03/01/18 REVIEW OF SYSTEMS As per HPI PHYSICAL EXAMINATION Vital Signs - 24 hr 08/18/18 09:20 Temperature 98 F Pulse Rate 72 Respiratory 16 Rate Blood Pressure 151/74 O2 Sat by Pulse 100 Oximetry (%) GENERAL: A&Ox3, vocalized significant distress HEAD: NC/AT EYES: PERRLA, EOMI EARS, NOSE, THROAT: Ears normal, nares patent, oropharynx clear without exudates. Moist mucous membranes. NECK: Normal range of motion, supple without lymphadenopathy, JVD, or masses. LUNGS: CTA b/l HEART: RRR no m/r/g ABDOMEN: Soft, moderately distended, mild diffuse tenderness UPPER EXTREMITIES: 2+ pulses, warm, well-perfused. No cyanosis. No clubbing. No peripheral edema. LOWER EXTREMITIES: 2+ pulses, warm, well-perfused. No calf tenderness. No peripheral edema. Chronic tenderness of L great toe. 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, sensory systems w/o focal deficit PSYCHIATRIC: Highly anxious SKIN: Warm, dry, normal turgor, no rashes or lesions noted Laboratory Results - last 24 hr 08/18/18 08/18/18 08/18/18 10:49 11:22 11:22 WBC 11.2 H RBC 4.08 Hgb 11.7 Hct 37.1 MCV 91.0 MCH 28.6 MCHC 31.5 L RDW 14.6 Plt Count 250 MPV 8.8 Absolute Neuts (auto) 8.2 H Neutrophils % 73.1 D Lymphocytes % 16.1 D Monocytes % 9.2 Eosinophils % 1.0 Basophils % 0.6 Nucleated RBC % 0 Sodium 130 L Potassium 5.2 H Chloride 97 L Carbon Dioxide 27 Anion Gap 6 L BUN 37 H Creatinine 1.2 Creat Clearance w eGFR 42.90 POC Glucometer Random Glucose 350 H* Calcium 9.3 Phosphorus 4.4 Magnesium 2.6 H Total Bilirubin 0.5 AST 25 ALT 34 Alkaline Phosphatase 186 H Troponin I < 0.02 Total Protein 8.1 Albumin 3.7 TSH 4.44 H Urine Color Yellow Urine Appearance Clear Urine pH 5.5 D Ur Specific [place] 1.019 Urine Protein Negative Urine Glucose (UA) 3+ H Urine Ketones Negative Urine Blood Negative Urine Nitrite Negative Urine Bilirubin Negative Urine Urobilinogen 0.2 Ur Leukocyte Esterase Trace Urine WBC (Auto) 5 Urine RBC (Auto) 2 Urine Casts (Auto) 0 U Epithel Cells (Auto) 0.5 Urine Bacteria (Auto) 11.7 08/18/18 14:31 WBC RBC Hgb Hct MCV MCH MCHC RDW Plt Count MPV Absolute Neuts (auto) Neutrophils % Lymphocytes % Monocytes % Eosinophils % Basophils % Nucleated RBC % Sodium Potassium Chloride Carbon Dioxide Anion Gap BUN Creatinine Creat Clearance w eGFR POC Glucometer 351 Random Glucose Calcium Phosphorus Magnesium Total Bilirubin AST ALT Alkaline Phosphatase Troponin I Total Protein Albumin TSH Urine Color Urine Appearance Urine pH Ur Specific [place] Urine Protein Urine Glucose (UA) Urine Ketones Urine Blood Urine Nitrite Urine Bilirubin Urine Urobilinogen Ur Leukocyte Esterase Urine WBC (Auto) Urine RBC (Auto) Urine Casts (Auto) U Epithel Cells (Auto) Urine Bacteria (Auto) ASSESSMENT/PLAN: 83 y/o F w/ PMHx HTN, IDDM, HLD, CAD, CHF, GERD, neuropathy, chronic diffuse pain, hypothyroidism, chronic L great toe osteomyelitis p/w chief complaint of overall chronic body pain worsening over past three days. Presented hyperglycemic w/ CT findings of b/l pleural effusions and colonic retention, and troponemia. #r/o ACS -initial troponin negative, 2nd positive to 0.36, will trend -initial EKG benign, stat 2nd EKG ordered -cardiology consulted -CXR pending #?CHF exacerbation -congestion/pleural effusions b/l on CT a/p -Pt states SOB is worsening -pulmonology consulted -IV Lasix daily #constipation -bowel regimen #chronic cardiac disease -home meds restarted #DM -Levemir 35U HS (reconciled with pharmacy) -BGM, SSI #hypothyroid -home LTX #FEN -no IVF d/t possible overload -monitor and replete electrolytes -diabetic diet #PPx -DVT: heparin sq, will initiate heparin gtt if 3rd trop increases -GI: home omeprazole #code -full #dispo -observe on telemetry Visit type - Emergency Visit Emergency Visit: Yes ED Registration Date: 08/18/18 Care time: The patient presented to the Emergency Department on the above date and was hospitalized for further evaluation of their emergent condition. - New Patient This patient is new to me today: Yes Date on this admission: 08/18/18 - Critical Care Critical Care patient: No
--- NOTE | 2018-08-18 18:39 | PN ---
Teaching Attending Note Name of Resident: Juan C Robertson ATTENDING PHYSICIAN STATEMENT I saw and evaluated the patient. I reviewed the resident's note and discussed the case with the resident. I agree with the resident's findings and plan as documented. SUBJECTIVE: Complains of generalized pain, mostly in Left shoulder, R hip, but also included legs and hands. No chest pain/palps/SOB/cough/sputum/hemoptysis/ fever/chills/nausea/vomiting/diarrhea/dysuria/hematuria. OBJECTIVE: Afebrile, Hemodynamically Stable. Last Vital Signs Temp Pulse Resp BP Pulse Ox 98 F 72 16 151/74 100 08/18/18 09:20 08/18/18 09:20 08/18/18 09:20 08/18/18 09:20 08/18/18 09:20 HEENT - Atraumatic, Normocephalic. Heart - S1, S2, RRR Lungs - bibasal decreased air entry with crackles. Abdomen - Soft, non-tender. Bowel Sounds normal. Extremities - no edema, no calf tenderness MS - decreased ROM about L shoulder - no joint swelling/erythema/tenderness Laboratory Results - last 24 hr 08/18/18 08/18/18 08/18/18 10:49 11:22 11:22 WBC 11.2 H RBC 4.08 Hgb 11.7 Hct 37.1 MCV 91.0 MCH 28.6 MCHC 31.5 L RDW 14.6 Plt Count 250 MPV 8.8 Absolute Neuts (auto) 8.2 H Neutrophils % 73.1 D Lymphocytes % 16.1 D Monocytes % 9.2 Eosinophils % 1.0 Basophils % 0.6 Nucleated RBC % 0 Sodium 130 L Potassium 5.2 H Chloride 97 L Carbon Dioxide 27 Anion Gap 6 L BUN 37 H Creatinine 1.2 Creat Clearance w eGFR 42.90 POC Glucometer Random Glucose 350 H* Calcium 9.3 Phosphorus 4.4 Magnesium 2.6 H Total Bilirubin 0.5 AST 25 ALT 34 Alkaline Phosphatase 186 H Troponin I < 0.02 B-Natriuretic Peptide Total Protein 8.1 Albumin 3.7 TSH 4.44 H Urine Color Yellow Urine Appearance Clear Urine pH 5.5 D Ur Specific [place] 1.019 Urine Protein Negative Urine Glucose (UA) 3+ H Urine Ketones Negative Urine Blood Negative Urine Nitrite Negative Urine Bilirubin Negative Urine Urobilinogen 0.2 Ur Leukocyte Esterase Trace Urine WBC (Auto) 5 Urine RBC (Auto) 2 Urine Casts (Auto) 0 U Epithel Cells (Auto) 0.5 Urine Bacteria (Auto) 11.7 Current Medications Generic Name Dose Route Start Last Admin Trade Name Freq PRN Reason Stop Dose Admin Aspirin 81 mg 08/19/18 10:00 Asa - PO DAILY [facility] Atorvastatin Calcium 40 mg 08/18/18 22:00 Lipitor - PO HS [facility] Carvedilol 12.5 mg 08/18/18 22:00 Coreg - PO BID [facility] Docusate Sodium 300 mg 08/18/18 22:00 Colace - PO HS [facility] Furosemide 40 mg 08/19/18 10:00 Lasix Injection - IVPUSH DAILY [facility] Gabapentin 600 mg 08/18/18 22:00 Neurontin - PO TID [facility] Heparin Sodium (Porcine) 5,000 unit 08/18/18 18:15 Heparin - SQ Q8H-IV [facility] Sodium Chloride 1,000 mls @ 0 mls/hr 08/18/18 12:45 08/18/18 12:53 Normal Saline - IV 250 mls/hr ASDIR [facility] Administration Wide Open Insulin Aspart 0 vial 08/18/18 22:00 Novolog Vial Sliding Scale - SQ ACHS [facility] Protocol Insulin Detemir 35 units 08/18/18 22:00 Levemir Vial SQ HS [facility] Levothyroxine Sodium 88 mcg 08/19/18 10:00 Synthroid - PO DAILY [facility] Magnesium Hydroxide 30 ml 08/18/18 18:30 Milk Of Magnesia - PO DAILY PRN CONSTIPATION Non-Formulary Medication 40 mg 08/19/18 10:00 Omeprazole [Omeprazole] PO DAILY [facility] Polyethylene Glycol 17 gm 08/18/18 18:30 Miralax (For Daily Use) - PO DAILY [facility] Ramipril 2.5 mg 08/19/18 10:00 Altace - PO DAILY [facility] Ranolazine 500 mg 08/18/18 22:00 Ranexa - PO BID [facility] Senna 2 tab 08/18/18 22:00 Senna - PO [facility] Home Medications Medication Instructions Recorded Aspirin [ASA -] 81 mg PO DAILY 08/20/17 Carvedilol [Coreg -] 12.5 mg PO BID 08/20/17 Levothyroxine [Synthroid -] 88 mcg PO DAILY 08/20/17 Omeprazole 40 mg PO DAILY 08/20/17 Ranolazine [Ranexa] 500 mg PO BID 08/20/17 Atorvastatin Ca [Lipitor] 40 mg PO HS #30 tablet 09/21/17 Repaglinide [Prandin -] 2 mg PO DAILY 11/22/17 Gabapentin [Neurontin -] 600 mg PO TID 02/25/18 Insulin Aspart Prot/Insuln Asp 25 unit SQ BID 02/25/18 [Novolog Mix 70-30 Flexpen Syrn] Insulin Detemir [Levemir Flextouch] 35 unit SQ HS 02/25/18 Docusate Sodium [Colace -] 100 mg PO TID capsule 03/01/18 Magnesium Hydrox 2400MG/30Ml [Milk 30 ml PO DAILY PRN cup 03/01/18 of Magnesia -] Ramipril [Altace] 5 mg PO DAILY #30 capsule 03/01/18 Sennosides [Senna -] 1 tab PO BID tablet 03/01/18 ASSESSMENT AND PLAN: 83 year old female with history of HTN, DM 2, HLD, CAD, CHF, GERD, neuropathy, chronic diffuse pain, hypothyroidism, chronic L great toe osteomyelitis presents with complaints of generalized pain, mostly in Left shoulder and R hip , found to have hyperglycemia. Denies chest pain/palpitations. Does refer some SOB but no cough/sputum/hemoptysis/fever. CT A/P showed interval development since 02/25/18 of pulmonary vascular congestion and b/l effusions as well as moderate colonic fecal retention. Left shoulder XR - DJD R Hip XR - no acute findings. 1. Elevated Troponin in setting of Pulmonary Vascular Congestion, possible Acute Exacerbation CHF TropI 0.02 --- > 0.36 ECG - no acute changes. Bilateral effusions on CT Chest BNP [id number] Received IV Lasix Echo requested along with Cardiology and Pulmonary consultation. Currently chest pain free. Continuen Aspirin, BB, PRATIBHA-I, Statin If any further troponin rise, will need Heparin drip 2. Constipation - initiated on bowel regimen 3. L shoulder pain with decreased ROM, possible frozen shoulder. 4.. DM 2 with Hyperglycemia - will resume Insulin regimen and monitor. Oral anti -hyperglycemics held. 5. Hypothyroidism - Continue Synthroid. 6. GERD - Continue PPI DVT Px - Heparin SQ
[2018-08-18] MEDS ORDERED: HEPARIN NA (PORCINE) 5,000 UNITS/ML 1ML VIAL SQ SCH (18:45)
[2018-08-18] MEDS: POLYETHYLENE GLYCOL 3350 119 GM BTL PO SCH (19:25)
[2018-08-18] MEDS ORDERED: HEPARIN NA (PORCINE) 5,000 UNITS/ML 1ML VIAL ONE (19:32)
[2018-08-18] MEDS: INSULIN (LEVEMIR) 100 UNITS/ML UNITS SQ SCH (23:28)
[2018-08-18] MEDS: DOCUSATE SODIUM 100 MG CAPSULE (FP) PO SCH (23:28)
[2018-08-18] MEDS: CARVEDILOL 12.5 MG TABLET (FP) PO SCH (23:28)
[2018-08-18] MEDS: GABAPENTIN 300 MG CAPSULE (FP) PO SCH (23:29)
[2018-08-18] MEDS: RANOLAZINE E.R. 500 MG TABLET (FP) PO SCH (23:29)
[2018-08-18] MEDS: ATORVASTATIN CA 40 MG TABLET (FP) PO SCH (23:29)
[2018-08-18] MEDS: SENNOSIDES 8.6MG TABLET (FP) PO SCH (23:30)
[2018-08-18] MEDS ORDERED: INSULIN (NOVOLOG) ASPART 100 UNITS/ML 10ML VIAL ONE (23:32)
[2018-08-18] MEDS: INSULIN SLIDING SCALE (NOVOLOG) 1 VIAL SQ SCH (23:40)
[2018-08-19] MEDS ORDERED: HEPARIN NA (PORCINE) 5,000 UNITS/ML 1ML VIAL IVPUSH PRN ×2 (01:37)
[2018-08-19] MEDS: HEPARIN SOD,PORK IN 0.45% NACL 25,000 UNITS/500 ML INFUS.BAG IVPB SCH (02:04)
[2018-08-19 02:46] VITALS: BMI 31.8
[2018-08-19] MEDS: INSULIN SLIDING SCALE (NOVOLOG) 1 VIAL SQ SCH ×4 (06:37→21:52)
[2018-08-19] MEDS: LEVOTHYROXINE NA 88 MCG TABLET (FP) PO SCH (06:39)
[2018-08-19] MEDS: GABAPENTIN 300 MG CAPSULE (FP) PO SCH ×3 (06:39→21:45)
[2018-08-19 07:06] LABS: BASO % 0.9 % (0-2.0); EOS % 0.5 % (0-4.5); HEMATOCRIT 31.1 % (32.4-45.2); HEMOGLOBIN 10.3 GM/dL (10.7-15.3); LYMPH % 27.4 % (8-40); MCH 29.6 pg (25.7-33.7); MCHC 33.1 g/dl (32.0-36.0); MEAN CELL VOLUME 89.5 fl (80-96); MEAN PLT VOLUME 9.5 fl (7.5-11.1); MONO % 12.6 % (3.8-10.2); NEUT % 58.6 % (42.8-82.8); PLATELET COUNT 211 K/MM3 (134-434); RBC 3.47 M/mm3 (3.60-5.2); RDW 14.2 % (11.6-15.6); WHITE BLOOD COUNT 8.5 K/mm3 (4.0-10.0)
[2018-08-19 07:26] LABS: INR 1.14 (0.83-1.09); PROTHROMBIN TIME (PATIENT) 13.5 SEC (9.7-13.0)
[2018-08-19 07:29] LABS: ANION GAP 5 MMOL/L (8-16); BLOOD UREA NITROGEN 36 mg/dL (7-18); CALCIUM 8.9 mg/dL (8.5-10.1); CHLORIDE 100 mmol/L (98-107); CO2 27 mmol/L (21-32); CREATININE 1.1 mg/dL (0.55-1.3); GLUCOSE,RANDOM 142 mg/dL (74-106); MAGNESIUM 2.8 mg/dL (1.8-2.4); PHOSPHOROUS 3.5 mg/dL (2.5-4.9); POTASSIUM 4.6 mmol/L (3.5-5.1); SODIUM 133 mmol/L (136-145)
[2018-08-19 07:59] LABS: ACTIVATED PTT 77.4 SECONDS (25.2-36.5)
--- NOTE | 2018-08-19 10:13 | CON.CARD ---
Consult Consult Specialty:: Cardiology Referred by:: Hospitalist Medicine Reason for Consultation:: CHF - History of Present Illness Chief Complaint: Dyspnea, abd distension History of Present Illness: This is an 83 year old female with a PMH of HTN, HLD, CAD s/p CABG, IDDM, CVA, L toe gangrene with osteomyelitis (has PICC line, been tx w/ vanc, zosyn, ceftriaxone and receiving hyperbarics therapy) p/w with constipation, shortness of breath without orthopnea, abdomen distension, total body ache, elevated biomarkers, demand ischemia, CT shows interval development since 02/25/18 of pulmonary vascular congestion and b/l effusions, additionally showed moderate colonic fecal retention. PAST MEDICAL HISTORY: echo 08/2017 - LV func mild-mod reduced, apical-lat/septal hypokinesis, old LAD infarct wound care w/ Dr. donahue bone bx + kleb, strep, staph PAST SURGICAL HISTORY: Social History: Smoking: denies Alcohol: denies Drugs: denies Family History: dad DM Allergies No Known Drug Allergies Allergy (Verified 12/16/17 17:24) - History Source History Provided By: Patient Limitations to Obtaining History: No Limitations 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) Endocrine: Yes: Diabetes Mellitus, Hypothyroidism - Alcohol/Substance Use Hx Alcohol Use: No - Smoking History Smoking history: Never smoked Have you smoked in the past 12 months: No Aproximately how many cigarettes per day: 0 Home Medications - Allergies Allergies/Adverse Reactions: Allergies Allergy/AdvReac Type Severity Reaction Status Date / Time No Known Drug Allergies Allergy Verified 08/18/18 10:02 - Home Medications Home Medications: Ambulatory Orders Aspirin [ASA -] 81 mg PO DAILY 08/20/17 Carvedilol [Coreg -] 12.5 mg PO BID 08/20/17 Levothyroxine [Synthroid -] 88 mcg PO DAILY 08/20/17 Omeprazole 40 mg PO DAILY 08/20/17 Ranolazine [Ranexa] 500 mg PO BID 08/20/17 Atorvastatin Ca [Lipitor] 40 mg PO HS #30 tablet 09/21/17 Repaglinide [Prandin -] 2 mg PO DAILY 11/22/17 Gabapentin [Neurontin -] 600 mg PO TID 02/25/18 Insulin Aspart Prot/Insuln Asp [Novolog Mix 70-30 Flexpen Syrn] 25 unit SQ BID 02/25/18 Insulin Detemir [Levemir Flextouch] 35 unit SQ HS 02/25/18 Docusate Sodium [Colace -] 100 mg PO TID capsule 03/01/18 Magnesium Hydrox 2400MG/30Ml [Milk of Magnesia -] 30 ml PO DAILY PRN cup Ramipril [Altace] 5 mg PO DAILY #30 capsule 03/01/18 Sennosides [Senna -] 1 tab PO BID tablet 03/01/18 Review of Systems - Review of Systems Cardiovascular: reports: Chest Pain Respiratory: reports: SOB Gastrointestinal: reports: Abdominal Pain Vital Signs: Vital Signs Temperature 97.6 F 08/19/18 06:56 Pulse Rate 57 L 08/19/18 06:56 Respiratory Rate 20 08/19/18 06:56 Blood Pressure 123/60 08/19/18 06:56 O2 Sat by Pulse Oximetry (%) 92 L 08/19/18 02:54 Constitutional: Yes: No Distress, Calm Neck: Yes: Supple Respiratory: Yes: Regular, Diminished, On Nasal O2 Gastrointestinal: Yes: Normal Bowel Sounds, Soft, Abdomen, Obese Cardiovascular: Yes: Regular Rate and Rhythm JVD: No Carotid Bruit: No Heart Sounds: Yes: S1, S2 Murmur: Yes: Systolic Murmur, Grade 1 Edema: No - Other Data Labs, Other Data: CBC, BMP 08/19/18 06:00 08/19/18 06:00 INR, PTT INR 1.14 (0.83-1.09) H 08/19/18 06:00 Troponin, BNP 08/18/18 08/18/18 08/19/18 11:22 17:00 00:15 Troponin I < 0.02 0.36 H 2.12 H* B-Natriuretic Peptide 5285.1 H 08/19/18 06:00 Troponin I 3.04 H* B-Natriuretic Peptide Troponin, BNP 08/18/18 08/18/18 08/19/18 11:22 17:00 00:15 Troponin I < 0.02 0.36 H 2.12 H* B-Natriuretic Peptide 5285.1 H 08/19/18 06:00 Troponin I 3.04 H* B-Natriuretic Peptide NSR @ [address]-T changes Ejection Fraction %: LVEF > or = 40 % Imaging - Results Chest X-ray: Report Reviewed (Congestion) Cat Scan: Report Reviewed (Congestion and small-mod bilateral effusions) Problem List - Problems (1) NSTEMI (non-ST elevated myocardial infarction) Code(s): I21.4 - NON-ST ELEVATION (NSTEMI) MYOCARDIAL INFARCTION (2) Hyponatremia Code(s): E87.1 - HYPO-OSMOLALITY AND HYPONATREMIA (3) CAD (coronary artery disease) Code(s): I25.10 - ATHSCL HEART DISEASE OF [place] CORONARY ARTERY W/O ANG PCTRS Qualifiers: Coronary Disease-Associated Artery/Lesion type: [place] artery [place] vs. transplanted heart: [place] heart Associated angina: with unstable angina Qualified Code(s): I25.110 - Atherosclerotic heart disease of [place] coronary artery with unstable angina pectoris (4) CKD (chronic kidney disease) stage 3, GFR 30-59 ml/min Code(s): N18.3 - CHRONIC KIDNEY DISEASE, STAGE 3 (MODERATE) (5) Chronic combined systolic and diastolic heart failure Code(s): I50.42 - CHRONIC COMBINED SYSTOLIC AND DIASTOLIC HRT FAIL (6) Hyperlipidemia Code(s): E78.5 - HYPERLIPIDEMIA, UNSPECIFIED Qualifiers: Hyperlipidemia type: pure hypercholesterolemia Qualified Code(s): E78.00 - Pure hypercholesterolemia, unspecified; E78.0 - Pure hypercholesterolemia (7) Hypertensive cardiomyopathy Code(s): I11.9 - HYPERTENSIVE HEART DISEASE WITHOUT HEART FAILURE; I43 - CARDIOMYOPATHY IN DISEASES CLASSIFIED ELSEWHERE Qualifiers: Heart failure presence: with heart failure Qualified Code(s): I11.0 - Hypertensive heart disease with heart failure; I43 - Cardiomyopathy in diseases classified elsewhere (8) Hypothyroidism Code(s): E03.9 - HYPOTHYROIDISM, UNSPECIFIED Qualifiers: Hypothyroidism type: unspecified Qualified Code(s): E03.9 - Hypothyroidism , unspecified (9) S/P CABG (coronary artery bypass graft) Code(s): Z95.1 - PRESENCE OF AORTOCORONARY BYPASS GRAFT (10) Type 2 diabetes mellitus Code(s): E11.9 - TYPE 2 DIABETES MELLITUS WITHOUT COMPLICATIONS Qualifiers: Diabetes mellitus [employer] insulin use: without shelter use Diabetes mellitus complication status: with circulatory complication Diabetes mellitus complication detail: with peripheral angiopathy with gangrene Qualified Code(s ): E11.52 - Type 2 diabetes mellitus with diabetic peripheral angiopathy with gangrene Assessment/Plan 08/19/2018 Echo: Mild-mod decreased LVEF 40-45% with AK in old LAD infarct, normal RV size and fxn, mild LAE, mild MR, mod TR 09/10/2017 Echo: (Old LAD infarct) mild-moderate decrease in LV systolic function, mild ISA, trace MR, severe apical septal and apical lateral hypokinesia 1. Acute on Chronic Systolic/diastolic LV failure 2. CAD h/o [place], CABG, NSTEMI 3. Abdominal discomfort->fecal retention 4. History of cerebrovascular disease 5. History of PAD let toe osteomyelitis post HBO2 6. HTN 7. DM 8. Hyperlipidemia 9. Hypothyroidism 10. CKD 11. Hyponatremia PLAN: 1. IV diuresis with monitor diuretic response, renal fxn and electrolytes 2. Continue Carvedilol 12.5 bid 2. Continue Altace 5 qd and titrate dosage as tolerated and as needed, with close monitoring or renal function 3. Continue Ranexa 500 bid 4. Continue Lipitor 40 qhs 5. Continue ASA 81 qd, add Plavix 75 qd and heparin gtt until trops peak, check lipid panel, Ha1c, FT4 6. Consider the addition of Jardiance if not contraindicated (cardiovascular benefits) 7. DVT and GI prophylaxis, bowel regimen, not ideal invasive therapy candidate given multiple co-morbidities 8. Thank you for consultative opportunity
--- NOTE | 2018-08-19 10:17 | ECHO ---
Name: BRIAN DOUGLASSLISSETTE Exam:Adult Echocardiogram Study Date: 08/19/2018 08:57 AM Age: 83 yrs Reason For Study: ASSESS LVF VALVULAR FUNCTION Height: 63 in Weight: 176 lb BSA: 1.8 m2 MMode/2D Measurements & Calculations IVSd: 0.93 cm Ao root diam: 2.4 cm LVIDd: 4.1 cm LA dimension: 3.8 cm LVIDs: 3.0 cm LVPWd: 0.81 cm EDV(Teich): 74.3 ml LVOT diam: 1.7 cm ESV(Teich): 36.2 ml Doppler Measurements & Calculations MV E max angel: 137.6 cm/sec Ao V2 max: 123.7 cm/sec MV A max angel: 48.1 cm/sec Ao max P.1 mmHg MV E/A: 2.9 Ao V2 mean: 85.9 cm/sec MV dec time: 0.21 sec Ao mean P.4 mmHg Ao V2 VTI: 26.0 cm SUMANTH(I,D): 1.4 cm2 SUMANTH(V,D): 1.3 cm2 LV V1 max P.0 mmHg SV(LVOT): 37.5 ml LV V1 mean P.97 mmHg LV V1 max: 70.6 cm/sec LV V1 mean: 44.8 cm/sec LV V1 VTI: 16.7 cm TR max angel: 255.9 cm/sec Med Peak E' Angel: 3.2 cm/sec TR max P.3 mmHg Med E/e': 43.6 Lat Peak E' Angel: 3.9 cm/sec Lat E/e': 35.6 Left Ventricle Ejection Fraction = 40-45%. Left ventricular systolic function is mild to moderately reduced. Akinesi s of the midanteroseptum, apical anterior wall, apical septum and apex proper. The left ventricular apex is no t well visualized. Right Ventricle The right ventricle is normal in size and function. Atria The left atrium is mildly dilated. Mitral Valve There is severe mitral annular calcification. There is no mitral valve stenosis. There is mild mitral regurgitation. Tricuspid Valve The tricuspid valve is normal in structure and function. There is moderate tricuspid regurgitation. R ight ventricular systolic pressure is normal. Aortic Valve There is moderate aortic sclerosis.;. No hemodynamically significant valvular aortic stenosis. No aor tic regurgitation is present. Pulmonic Valve The pulmonic valve is not well seen, but is grossly normal. There is no pulmonic valvular stenosis. Great Vessels The aortic root is normal size. Pericardium/Pleura There is no pericardial effusion. Interpretation Summary Ejection Fraction = 40-45%. Left ventricular systolic function is mild to moderately reduced. Akinesis of the midanteroseptum, apical anterior wall, apical septum and apex proper. The left ventricular apex is not well visualized. The right ventricle is normal in size and function. The left atrium is mildly dilated. There is severe mitral annular calcification. There is mild mitral regurgitation. There is moderate tricuspid regurgitation. Right ventricular systolic pressure is normal. There is moderate aortic sclerosis.; There is no pericardial effusion. MD Allen *Cem 08/19/2018 10:16 AM
[2018-08-19] MEDS: RANOLAZINE E.R. 500 MG TABLET (FP) PO SCH ×2 (10:31→21:45)
[2018-08-19] MEDS: PANTOPRAZOLE 40 MG TABLET (FP) PO SCH (10:32)
[2018-08-19] MEDS: FUROSEMIDE 40 MG/4 ML INJECTABLE VIAL IVPUSH SCH (10:32)
[2018-08-19] MEDS: POLYETHYLENE GLYCOL 3350 119 GM BTL PO SCH (10:32)
[2018-08-19] MEDS: CARVEDILOL 12.5 MG TABLET (FP) PO SCH ×2 (10:32→22:04)
[2018-08-19] MEDS: ASPIRIN 81 MG CHEWABLE TABLETS PO SCH (10:32)
[2018-08-19] MEDS: RAMIPRIL 2.5 MG CAPSULE (FP) PO SCH (10:32)
[2018-08-19] MEDS ORDERED: NITROGLYCERIN SUBLINGUAL 1/150 0.4 MG TAB ONE (11:14)
[2018-08-19] MEDS: NITROGLYCERIN SUBLINGUAL 1/150 0.4 MG TAB SL PRN (11:15)
--- NOTE | 2018-08-19 12:45 | PN ---
Progress Note (short form) - Note Progress Note: PULMONARY CONSULTATION DICTATED 08/19/18 IMP DYSPNEA ACUTE ON CHRONIC CHF ASHD S/P AR ,CABG,NSTEMI MILD- MODERATE LV SYSTOLIC DYSFUNCTION + TROPONIN IDDM CHRONIC PAIN LEFT TOE OSTEO NEUROPATHY HYPOTHYROID HLD HAROLDO PLAN IV LASIX O2 HEPARIN NITRATES TREND TROPONIN DAILY WT F/U CHEST X-RAY ANALGESICS MONITOR LYTES,RENAL FUNCTION DR BABB Problem List - Problems (1) Generalized pain Code(s): R52 - PAIN, UNSPECIFIED (2) CHF exacerbation Code(s): I50.9 - HEART FAILURE, UNSPECIFIED (3) NSTEMI (non-ST elevated myocardial infarction) Code(s): I21.4 - NON-ST ELEVATION (NSTEMI) MYOCARDIAL INFARCTION (4) Toe ulcer Code(s): L97.509 - NON-PRESSURE CHRONIC ULCER OTH PRT UNSP FOOT W UNSP SEVERITY (5) CAD (coronary artery disease) Code(s): I25.10 - ATHSCL HEART DISEASE OF [place] CORONARY ARTERY W/O ANG PCTRS Qualifiers: Coronary Disease-Associated Artery/Lesion type: [place] artery [place] vs. transplanted heart: [place] heart Associated angina: with unstable angina Qualified Code(s): I25.110 - Atherosclerotic heart disease of [place] coronary artery with unstable angina pectoris (6) Chronic combined systolic and diastolic heart failure Code(s): I50.42 - CHRONIC COMBINED SYSTOLIC AND DIASTOLIC HRT FAIL (7) Diabetic neuropathy Code(s): E11.40 - TYPE 2 DIABETES MELLITUS WITH DIABETIC NEUROPATHY, UNSP (8) GERD (gastroesophageal reflux disease) Code(s): K21.9 - GASTRO-ESOPHAGEAL REFLUX DISEASE WITHOUT ESOPHAGITIS (9) Hypothyroidism Code(s): E03.9 - HYPOTHYROIDISM, UNSPECIFIED Qualifiers: Hypothyroidism type: unspecified Qualified Code(s): E03.9 - Hypothyroidism , unspecified (10) S/P CABG (coronary artery bypass graft) Code(s): Z95.1 - PRESENCE OF AORTOCORONARY BYPASS GRAFT
[2018-08-19] MEDS: CLOPIDOGREL BISULFATE 75 MG TABLET (FP) PO SCH (13:29)
--- NOTE | 2018-08-19 14:55 | PN ---
Physical Exam: SUBJECTIVE: Patient seen and examined at bedside. C/o chest tightness, dyspnea, diffuse body pain most focally at left shoulder and right hip. OBJECTIVE: Vital Signs Period Temp Pulse Resp BP Sys/Ibarra Pulse Ox Last 24 Hr 97.6 F-98.7 F 57-84 16-20 123-145/50-77 92-95 GENERAL: A&Ox3, vocalized significant distress HEAD: NC/AT EYES: PERRLA, EOMI EARS, NOSE, THROAT: Ears normal, nares patent, oropharynx clear without exudates. Moist mucous membranes. NECK: Normal range of motion, supple without lymphadenopathy, JVD, or masses. LUNGS: CTA b/l HEART: RRR no m/r/g ABDOMEN: Soft, moderately distended, mild diffuse tenderness UPPER EXTREMITIES: 2+ pulses, warm, well-perfused. No cyanosis. No clubbing. No peripheral edema. LOWER EXTREMITIES: 2+ pulses, warm, well-perfused. No calf tenderness. No peripheral edema. Chronic tenderness of L great toe. 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, sensory systems w/o focal deficit PSYCHIATRIC: Highly anxious SKIN: Warm, dry, normal turgor, no rashes or lesions noted Laboratory Results - last 24 hr 08/18/18 08/18/18 08/18/18 17:00 18:50 23:21 WBC RBC Hgb Hct MCV MCH MCHC RDW Plt Count MPV Absolute Neuts (auto) Neutrophils % Lymphocytes % Monocytes % Eosinophils % Basophils % Nucleated RBC % PT with INR INR PTT (Actin FS) Sodium Potassium Chloride Carbon Dioxide Anion Gap BUN Creatinine Creat Clearance w eGFR POC Glucometer 355 193 Random Glucose Calcium Phosphorus Magnesium Troponin I 0.36 H B-Natriuretic Peptide 5285.1 H 08/19/18 08/19/18 08/19/18 00:15 01:45 01:45 WBC RBC Hgb Hct MCV MCH MCHC RDW Plt Count MPV Absolute Neuts (auto) Neutrophils % Lymphocytes % Monocytes % Eosinophils % Basophils % Nucleated RBC % PT with INR INR PTT (Actin FS) 34.5 Sodium Potassium Chloride Carbon Dioxide Anion Gap BUN Creatinine Creat Clearance w eGFR POC Glucometer 181 Random Glucose Calcium Phosphorus Magnesium Troponin I 2.12 H* B-Natriuretic Peptide 08/19/18 08/19/18 08/19/18 06:00 06:00 06:00 WBC 8.5 RBC 3.47 L Hgb 10.3 L Hct 31.1 L D MCV 89.5 MCH 29.6 MCHC 33.1 RDW 14.2 Plt Count 211 MPV 9.5 Absolute Neuts (auto) 5.0 Neutrophils % 58.6 Lymphocytes % 27.4 D Monocytes % 12.6 H Eosinophils % 0.5 Basophils % 0.9 Nucleated RBC % 0 PT with INR 13.50 H INR 1.14 H PTT (Actin FS) 77.4 H Sodium 133 L Potassium 4.6 Chloride 100 Carbon Dioxide 27 Anion Gap 5 L BUN 36 H Creatinine 1.1 Creat Clearance w eGFR 47.43 POC Glucometer Random Glucose 142 H Calcium 8.9 Phosphorus 3.5 Magnesium 2.8 H Troponin I 3.04 H* B-Natriuretic Peptide 08/19/18 08/19/18 06:36 12:35 WBC RBC Hgb Hct MCV MCH MCHC RDW Plt Count MPV Absolute Neuts (auto) Neutrophils % Lymphocytes % Monocytes % Eosinophils % Basophils % Nucleated RBC % PT with INR INR PTT (Actin FS) Sodium Potassium Chloride Carbon Dioxide Anion Gap BUN Creatinine Creat Clearance w eGFR POC Glucometer 131 Random Glucose Calcium Phosphorus Magnesium Troponin I 2.48 H* B-Natriuretic Peptide Active Medications Generic Name Dose Route Start Last Admin Trade Name Freq PRN Reason Stop Dose Admin Aspirin 81 mg 08/19/18 10:00 08/19/18 10:32 Asa - PO 81 mg DAILY [facility]OMA Administration Atorvastatin Calcium 40 mg 08/18/18 22:00 08/18/18 23:29 Lipitor - PO 40 mg HS [facility] Administration Carvedilol 12.5 mg 08/18/18 22:00 08/19/18 10:32 Coreg - PO 12.5 mg BID [facility] Administration Clopidogrel Bisulfate 75 mg 08/19/18 10:45 08/19/18 13:29 Plavix - PO 75 mg DAILY [facility] Administration Docusate Sodium 300 mg 08/18/18 22:00 08/18/18 23:28 Colace - PO 300 mg HS [facility]OMA Administration Furosemide 40 mg 08/19/18 10:00 08/19/18 10:32 Lasix Injection - IVPUSH 40 mg DAILY [facility] Administration Furosemide 40 mg 08/19/18 16:00 Lasix Injection - IVPUSH 08/19/18 16:01 ONCE ONE Gabapentin 600 mg 08/18/18 22:00 08/19/18 13:29 Neurontin - PO 600 mg TID [facility] Administration Heparin Sodium (Porcine) 1,000 unit 08/19/18 01:37 Heparin - IVPUSH PRN PRN Heparin Heparin Sodium (Porcine) 5,000 unit 08/19/18 01:37 Heparin - IVPUSH PRN PRN Heparin HEPARIN SOD,PORK IN 0.45% NACL 25,000 units in 500 mls @ 20 mls/hr 08/19/18 01 :45 08/19/18 10:39 Heparin-1/2ns 25,000 Units/500 IVPB 950 unit/hr TITR PALOMA 19 mls/hr Titration Protocol 1,000 UNIT/HR Insulin Aspart 1 vial 08/18/18 22:00 08/19/18 12:40 Novolog Vial Sliding Scale - SQ Not Given ACHS [facility] Protocol Insulin Detemir 35 units 08/18/18 22:00 08/18/18 23:28 Levemir Vial SQ 35 unit HS [facility] Administration Levothyroxine Sodium 88 mcg 08/19/18 07:00 08/19/18 06:39 Synthroid - PO 88 mcg DAILY@0700 [facility] Administration Magnesium Hydroxide 30 ml 08/18/18 18:30 Milk Of Magnesia - PO DAILY PRN CONSTIPATION Nitroglycerin 0.4 mg 08/19/18 11:16 08/19/18 11:15 Nitrostat - SL 0.4 mg Q5M PRN Administration FOR CHEST PAIN Pantoprazole Sodium 40 mg 08/19/18 10:00 08/19/18 10:32 Protonix - PO 40 mg DAILY [facility] Administration Polyethylene Glycol 17 gm 08/18/18 18:30 08/19/18 10:32 Miralax (For Daily Use) - PO 17 gm DAILY [facility] Administration Ramipril 2.5 mg 08/19/18 10:00 08/19/18 10:32 Altace - PO 2.5 mg DAILY [facility] Administration Ranolazine 500 mg 08/18/18 22:00 08/19/18 10:31 Ranexa - PO 500 mg BID [facility] Administration Senna 2 tab 08/18/18 22:00 08/18/18 23:30 Senna - PO 2 tab HS [facility]OMA Administration ASSESSMENT/PLAN: 83 y/o F w/ PMHx HTN, IDDM, HLD, CAD, CHF, GERD, neuropathy, chronic diffuse pain, hypothyroidism, chronic L great toe osteomyelitis p/w chief complaint of overall chronic body pain worsening over past three days. Presented hyperglycemic w/ CT findings of b/l pleural effusions and colonic retention, and troponemia. #NSTEMI -serial troponins peaked at 3.04, now downtrending -no acute ST changes on serial EKGs -cardiology consulted -continuing medical management w/ heparin gtt, carvedilol, altace, ranexa, lipitor, ASA; plavix added -NTG SL PRN for anginal pain -CXR showing congestion -echo showing 40-45% EF, anteroseptal akinesis, mild-moderate reduction of LV systolic function, multiple valvular lesions #CHF exacerbation -echo showing 40-45% EF, anteroseptal akinesis, mild-moderate reduction of LV systolic function, multiple valvular lesions -congestion/pleural effusions b/l on CT a/p -dyspnea ongoing -pulmonology following -IV Lasix daily #constipation -bowel regimen #DM -Levemir 35U HS -BGM, SSI #hypothyroid -home LTX #FEN -no IVF d/t possible overload -monitor and replete electrolytes -diabetic diet #PPx -DVT: heparin gtt -GI: home omeprazole #code -full #dispo -telemetry Visit type - Emergency Visit Emergency Visit: No - New Patient This patient is new to me today: No - Critical Care Critical Care patient: No
--- NOTE | 2018-08-19 15:17 | CONS ---
DATE OF CONSULTATION: 08/09/2018 REFERRING PHYSICIAN: Dr. Ortiz HISTORY OF PRESENT ILLNESS: The patient is an 83-year-old female with past medical history of ASHD, status post IL, status post CABG, hypertension, hyperlipidemia, insulin-dependent diabetes mellitus, GERD, neuropathy, chronic diffuse pain, hypothyroidism, chronic left great toe osteomyelitis admitted to [facility] with complaint of 3-day history of increasing generalized body pain, also shortness of breath and constipation. Patient was complaining of chest pain as well as diffuse abdominal pain. She had a CT of the abdomen which revealed evidence of fecal impaction, increased fecal retention (it was moderate ), also bilateral pleural effusions, and interstitial pulmonary vascular congestion. Patient was admitted with the above. On admission, she was also noted to have elevated troponin levels. She was felt to have a possible non-STEMI. She was placed on IV heparin as well as Plavix. Patient was evaluated by Cardiology for the above. Patient, apparently for her osteomyelitis has been treated with multiple antibiotics as well as treating with hyperbarics. PAST MEDICAL HISTORY: Again includes ASHD, status post CABG, insulin-dependent diabetes mellitus, CVA, left toe gangrene with osteomyelitis, hypertension, hyperlipidemia, GERD, hypothyroidism, and chronic pain. SOCIAL HISTORY: Born in [facility], moved to the [place] greater than 20 years ago. No apparent alcohol or smoking. SURGICAL HISTORY: Again, includes CABG. CURRENT MEDICATIONS: Include Altace, heparin drip, Neurontin, Coreg, Ranexa, Colace, milk of magnesia, Lipitor, Levemir, Lasix IV, Nitrostat, aspirin, Plavix, Protonix, and Synthroid. PHYSICAL EXAMINATION: General: The patient is an elderly female, awake, alert, here in no acute respiratory distress. Vital signs: She is currently afebrile, blood pressure is 123/60, respiratory rate 20, O2 saturation is 92% on 2 L. HEENT: Head is normocephalic atraumatic. Neck: Supple. Heart: Regular, S1, S2. Chest: Bilateral crackles 1/3 up. Abdomen: Soft. Bowel sounds positive. Extremities: No cyanosis or edema. LABORATORIES: Sodium is 133, BUN 36, creatinine 1.1. Initial troponin 2.12, most recent 3.04. Magnesium is 2.8. WBC is 8.5, hemoglobin 10.3, hematocrit 31.1, platelet count of 211,000. INR is 1.14. Chest x-ray with pulmonary vascular congestion. CT as noted earlier. IMPRESSION: 1. Dyspnea, likely secondary to acute on chronic congestive heart failure. 2. Mild to moderate left ventricular systolic dysfunction. 3. Atherosclerotic heart disease, status post myocardial infarction, coronary artery bypass grafting surgery, non-ST myocardial infarction. 4. Positive troponin. 5. Insulin-dependent diabetes mellitus. 6. Chronic pain. 7. Left toe gangrene and osteomyelitis. 8. Neuropathy. 9. Hypothyroidism. 10. Hyperlipidemia. PLAN: Continue IV Lasix, supplemental O2, heparin, nitrates, trend troponin, daily weights, follow up chest x-ray, analgesics. Also monitor renal function. Will follow up closely with you. MARYANN BABB M.D. [id number] MTDD
[2018-08-19] MEDS ORDERED: FUROSEMIDE 40 MG/4 ML INJECTABLE VIAL IVPUSH ONE (16:00)
--- NOTE | 2018-08-19 21:08 | PN ---
Teaching Attending Note Name of Resident: Juan C Robertson ATTENDING PHYSICIAN STATEMENT I saw and evaluated the patient. I reviewed the resident's note and discussed the case with the resident. I agree with the resident's findings and plan as documented. SUBJECTIVE: Still complains of generalized pain, mostly in Left shoulder, R hip , but also included legs and hands. Today she also reports some chest heaviness/ tightness with SOB - no palps/diaphoresis/lightheadedness. No cough/sputum/ hemoptysis/fever/chills/nausea/vomiting/diarrhea/dysuria/hematuria. OBJECTIVE: Afebrile, Hemodynamically Stable. Last Vital Signs Temp Pulse Resp BP Pulse Ox 97.9 F 98 H 20 127/91 92 L 08/19/18 18:00 08/19/18 18:00 08/19/18 18:00 08/19/18 18:00 08/19/18 16:00 HEENT - Atraumatic, Normocephalic. Heart - S1, S2, RRR. Midline Sternotomy scar Lungs - bibasal decreased air entry with crackles. Abdomen - Soft, non-tender. Bowel Sounds normal. Extremities - no edema, no calf tenderness MS - decreased ROM about L shoulder - no joint swelling/erythema/tenderness Laboratory Results - last 24 hr 08/18/18 08/19/18 08/19/18 23:21 00:15 01:45 WBC RBC Hgb Hct MCV MCH MCHC RDW Plt Count MPV Absolute Neuts (auto) Neutrophils % Lymphocytes % Monocytes % Eosinophils % Basophils % Nucleated RBC % PT with INR INR PTT (Actin FS) Sodium Potassium Chloride Carbon Dioxide Anion Gap BUN Creatinine Creat Clearance w eGFR POC Glucometer 193 181 Random Glucose Calcium Phosphorus Magnesium Troponin I 2.12 H* 08/19/18 08/19/18 08/19/18 01:45 06:00 06:00 WBC 8.5 RBC 3.47 L Hgb 10.3 L Hct 31.1 L D MCV 89.5 MCH 29.6 MCHC 33.1 RDW 14.2 Plt Count 211 MPV 9.5 Absolute Neuts (auto) 5.0 Neutrophils % 58.6 Lymphocytes % 27.4 D Monocytes % 12.6 H Eosinophils % 0.5 Basophils % 0.9 Nucleated RBC % 0 PT with INR 13.50 H INR 1.14 H PTT (Actin FS) 34.5 77.4 H Sodium Potassium Chloride Carbon Dioxide Anion Gap BUN Creatinine Creat Clearance w eGFR POC Glucometer Random Glucose Calcium Phosphorus Magnesium Troponin I 08/19/18 08/19/18 08/19/18 06:00 06:36 12:35 WBC RBC Hgb Hct MCV MCH MCHC RDW Plt Count MPV Absolute Neuts (auto) Neutrophils % Lymphocytes % Monocytes % Eosinophils % Basophils % Nucleated RBC % PT with INR INR PTT (Actin FS) Sodium 133 L Potassium 4.6 Chloride 100 Carbon Dioxide 27 Anion Gap 5 L BUN 36 H Creatinine 1.1 Creat Clearance w eGFR 47.43 POC Glucometer 131 Random Glucose 142 H Calcium 8.9 Phosphorus 3.5 Magnesium 2.8 H Troponin I 3.04 H* 2.48 H* 08/19/18 16:45 WBC RBC Hgb Hct MCV MCH MCHC RDW Plt Count MPV Absolute Neuts (auto) Neutrophils % Lymphocytes % Monocytes % Eosinophils % Basophils % Nucleated RBC % PT with INR INR PTT (Actin FS) Sodium Potassium Chloride Carbon Dioxide Anion Gap BUN Creatinine Creat Clearance w eGFR POC Glucometer 154 Random Glucose Calcium Phosphorus Magnesium Troponin I Current Medications Generic Name Dose Route Start Last Admin Trade Name Freq PRN Reason Stop Dose Admin Aspirin 81 mg 08/19/18 10:00 08/19/18 10:32 Asa - PO 81 mg DAILY PALOMA Administration Atorvastatin Calcium 40 mg 08/18/18 22:00 08/18/18 23:29 Lipitor - PO 40 mg HS PALOMA Administration Carvedilol 12.5 mg 08/18/18 22:00 08/19/18 10:32 Coreg - PO 12.5 mg BID PALOMA Administration Clopidogrel Bisulfate 75 mg 08/19/18 10:45 08/19/18 13:29 Plavix - PO 75 mg DAILY PALOMA Administration Docusate Sodium 300 mg 08/18/18 22:00 08/18/18 23:28 Colace - PO 300 mg HS PALOMA Administration Furosemide 40 mg 08/19/18 10:00 08/19/18 10:32 Lasix Injection - IVPUSH 40 mg DAILY PALOMA Administration Gabapentin 600 mg 08/18/18 22:00 08/19/18 13:29 Neurontin - PO 600 mg TID PALOMA Administration Heparin Sodium (Porcine) 1,000 unit 08/19/18 01:37 Heparin - IVPUSH PRN PRN Heparin Heparin Sodium (Porcine) 5,000 unit 08/19/18 01:37 Heparin - IVPUSH PRN PRN Heparin HEPARIN SOD,PORK IN 0.45% NACL 25,000 units in 500 mls @ 20 mls/hr 08/19/18 01 :45 08/19/18 10:39 Heparin-1/2ns 25,000 Units/500 IVPB 950 unit/hr TITR PALOMA 19 mls/hr Titration Protocol 1,000 UNIT/HR Insulin Aspart 1 vial 08/18/18 22:00 08/19/18 17:00 Novolog Vial Sliding Scale - SQ Not Given ACHS [facility] Protocol Insulin Detemir 35 units 08/18/18 22:00 08/18/18 23:28 Levemir Vial SQ 35 unit HS PALOMA Administration Levothyroxine Sodium 88 mcg 08/19/18 07:00 08/19/18 06:39 Synthroid - PO 88 mcg DAILY@0700 PALOMA Administration Magnesium Hydroxide 30 ml 08/18/18 18:30 Milk Of Magnesia - PO DAILY PRN CONSTIPATION Nitroglycerin 0.4 mg 08/19/18 11:16 08/19/18 11:15 Nitrostat - SL 0.4 mg Q5M PRN Administration FOR CHEST PAIN Pantoprazole Sodium 40 mg 08/19/18 10:00 08/19/18 10:32 Protonix - PO 40 mg DAILY PALOMA Administration Polyethylene Glycol 17 gm 08/18/18 18:30 08/19/18 10:32 Miralax (For Daily Use) - PO 17 gm DAILY PAOLMA Administration Ramipril 2.5 mg 08/19/18 10:00 08/19/18 10:32 Altace - PO 2.5 mg DAILY PALOMA Administration Ranolazine 500 mg 08/18/18 22:00 08/19/18 10:31 Ranexa - PO 500 mg BID PALOMA Administration Senna 2 tab 08/18/18 22:00 08/18/18 23:30 Senna - PO 2 tab HS PALOMA Administration ASSESSMENT AND PLAN: 83 year old female with history of HTN, HLD, CAD s/p CABG, GERD, CKD 3, Hx CVA, DM 2 with neuropathy, chronic diffuse pain, hypothyroidism, chronic L great toe osteomyelitis (treated with IV Abx/Hyperbaric Therapy) presents with complaints of generalized pain, mostly in Left shoulder and R hip, found to have hyperglycemia. Denies chest pain/palpitations. Does refer some SOB but no cough/ sputum/hemoptysis/fever. CT A/P showed interval development since 02/25/18 of pulmonary vascular congestion and b/l effusions as well as moderate colonic fecal retention. Left shoulder XR - DJD R Hip XR - no acute findings. 1. Acute NSTEMI in setting of bilateral effusions and acute systolic CHF exacerbation TropI 0.02 --- > 0.36 ---> 3.04 ---> 2.48 ECG - no acute changes. Bilateral effusions on CT Chest BNP [id number] Received IV Lasix 08/19/2018 Echo: Mild-mod decreased LVEF 40-45%, normal RV size and fxn, mild LAE, mild MR, mod TR Continue Aspirin, Plavix, BB, PRATIBHA-I, Statin, Ranexa, Heparin drip ongoing. Discussed with Cardiology - poor candidate for transfer for Cath - for trial of medical therapy. NTG prn for chest pain Currently hemodynamically Stable. 2. Constipation - on bowel regimen 3. L shoulder pain with decreased ROM, possible frozen shoulder. For orthopedic eval once stable from perspective of ongoing acute cardiac process. 4.. DM 2 with Hyperglycemia - will resume Insulin regimen and monitor. Oral anti -hyperglycemics held. 5. Hypothyroidism - Continue Synthroid. 6. GERD - Continue PPI 7. CKD 3 - Stable. DVT Px - on Heparin drip.
[2018-08-19] MEDS: ATORVASTATIN CA 40 MG TABLET (FP) PO SCH (21:45)
[2018-08-19] MEDS: SENNOSIDES 8.6MG TABLET (FP) PO SCH (21:45)
[2018-08-19] MEDS: DOCUSATE SODIUM 100 MG CAPSULE (FP) PO SCH (21:45)
[2018-08-19] MEDS: INSULIN (LEVEMIR) 100 UNITS/ML UNITS SQ SCH (21:52)
[2018-08-20] MEDS: HEPARIN SOD,PORK IN 0.45% NACL 25,000 UNITS/500 ML INFUS.BAG IVPB SCH (03:03)
[2018-08-20] MEDS: GABAPENTIN 300 MG CAPSULE (FP) PO SCH ×3 (05:33→21:49)
[2018-08-20] MEDS: NITROGLYCERIN SUBLINGUAL 1/150 0.4 MG TAB SL PRN (06:00)
[2018-08-20] MEDS: INSULIN SLIDING SCALE (NOVOLOG) 1 VIAL SQ SCH ×4 (06:19→21:51)
[2018-08-20] MEDS: LEVOTHYROXINE NA 88 MCG TABLET (FP) PO SCH (06:34)
[2018-08-20 08:25] LABS: ANION GAP 8 MMOL/L (8-16); BLOOD UREA NITROGEN 38 mg/dL (7-18); CHLORIDE 99 mmol/L (98-107); CHOLESTEROL 199 mg/dL (50-200); CO2 27 mmol/L (21-32); CREATININE 1.3 mg/dL (0.55-1.3); GLUCOSE,RANDOM 131 mg/dL (74-106); HDL CHOLESTEROL 61 mg/dL (40-60); MAGNESIUM 2.2 mg/dL (1.8-2.4); PHOSPHOROUS 3.8 mg/dL (2.5-4.9); POTASSIUM 4.5 mmol/L (3.5-5.1); SODIUM 135 mmol/L (136-145); TRIGLYCERIDES 112 mg/dL (0-150)
[2018-08-20 08:27] LABS: BASO % 0.7 % (0-2.0); EOS % 1.8 % (0-4.5); HEMATOCRIT 29.3 % (32.4-45.2); HEMOGLOBIN 9.6 GM/dL (10.7-15.3); LYMPH % 29.2 % (8-40); MCH 29.6 pg (25.7-33.7); MCHC 32.9 g/dl (32.0-36.0); MEAN CELL VOLUME 90.2 fl (80-96); MEAN PLT VOLUME 9.2 fl (7.5-11.1); MONO % 12.3 % (3.8-10.2); PLATELET COUNT 214 K/MM3 (134-434); RBC 3.24 M/mm3 (3.60-5.2); RDW 14.2 % (11.6-15.6); WHITE BLOOD COUNT 8.6 K/mm3 (4.0-10.0)
[2018-08-20] MEDS: POLYETHYLENE GLYCOL 3350 119 GM BTL PO SCH (09:58)
[2018-08-20] MEDS: CLOPIDOGREL BISULFATE 75 MG TABLET (FP) PO SCH (09:58)
[2018-08-20] MEDS: ASPIRIN 81 MG CHEWABLE TABLETS PO SCH (09:58)
[2018-08-20] MEDS: FUROSEMIDE 40 MG/4 ML INJECTABLE VIAL IVPUSH SCH (09:58)
[2018-08-20] MEDS: CARVEDILOL 12.5 MG TABLET (FP) PO SCH ×2 (09:58→21:50)
[2018-08-20] MEDS: RANOLAZINE E.R. 500 MG TABLET (FP) PO SCH ×2 (10:05→21:49)
[2018-08-20] MEDS: RAMIPRIL 2.5 MG CAPSULE (FP) PO SCH (10:05)
[2018-08-20] MEDS: PANTOPRAZOLE 40 MG TABLET (FP) PO SCH (10:05)
--- NOTE | 2018-08-20 11:40 | PN ---
Progress Note, Physician History of Present Illness: Denies chest pain or dyspnea, reports left shoulder pain with decreased range of motion about joint and right hip pain. - Current Medication List Current Medications: Active Medications Aspirin (Asa -) 81 mg PO DAILY [facility] Last Admin: 08/20/18 09:58 Dose: 81 mg Atorvastatin Calcium (Lipitor -) 40 mg PO [facility] Last Admin: 08/19/18 21:45 Dose: 40 mg Carvedilol (Coreg -) 12.5 mg PO BID [facility] Last Admin: 08/20/18 09:58 Dose: 12.5 mg Clopidogrel Bisulfate (Plavix -) 75 mg PO DAILY [facility] Last Admin: 08/20/18 09:58 Dose: 75 mg Docusate Sodium (Colace -) 300 mg PO [facility] Last Admin: 08/19/18 21:45 Dose: 300 mg Furosemide (Lasix Injection -) 40 mg IVPUSH DAILY [facility] Last Admin: 08/20/18 09:58 Dose: 40 mg Gabapentin (Neurontin -) 600 mg PO TID [facility] Last Admin: 08/20/18 05:33 Dose: 600 mg Heparin Sodium (Porcine) (Heparin -) 1,000 unit IVPUSH PRN PRN PRN Reason: Heparin Heparin Sodium (Porcine) (Heparin -) 5,000 unit IVPUSH PRN PRN PRN Reason: Heparin HEPARIN SOD,PORK IN 0.45% NACL (Heparin-1/2ns 25,000 Units/500) 25,000 units in 500 mls @ 20 mls/hr IVPB TITR [facility]; Protocol Last Admin: 08/20/18 03:03 Dose: 950 unit/hr, 19 mls/hr Insulin Aspart (Novolog Vial Sliding Scale -) 1 vial SQ [facility]; Protocol Last Admin: 08/20/18 06:19 Dose: Not Given Insulin Detemir (Levemir Vial) 35 units SQ [facility] Last Admin: 08/19/18 21:52 Dose: 35 unit Levothyroxine Sodium (Synthroid -) 88 mcg PO DAILY@0700 [facility] Last Admin: 08/20/18 06:34 Dose: 88 mcg Magnesium Hydroxide (Milk Of Magnesia -) 30 ml PO DAILY PRN PRN Reason: CONSTIPATION Nitroglycerin (Nitrostat -) 0.4 mg SL Q5M PRN PRN Reason: FOR CHEST PAIN Last Admin: 08/20/18 06:00 Dose: 0.4 mg Pantoprazole Sodium (Protonix -) 40 mg PO DAILY [facility] Last Admin: 08/20/18 10:05 Dose: 40 mg Polyethylene Glycol (Miralax (For Daily Use) -) 17 gm PO DAILY [facility] Last Admin: 08/20/18 09:58 Dose: 17 gm Ramipril (Altace -) 2.5 mg PO DAILY [facility] Last Admin: 08/20/18 10:05 Dose: 2.5 mg Ranolazine (Ranexa -) 500 mg PO BID [facility] Last Admin: 08/20/18 10:05 Dose: 500 mg Senna (Senna -) 2 tab PO HS [facility] Last Admin: 08/19/18 21:45 Dose: 2 tab - Objective Vital Signs: Vital Signs Temperature 97.8 F 08/20/18 10:00 Pulse Rate 61 08/20/18 10:00 Respiratory Rate 20 08/20/18 10:00 Blood Pressure 136/52 L 08/20/18 10:00 O2 Sat by Pulse Oximetry (%) 93 L 08/20/18 08:00 Constitutional: Yes: No Distress, Calm Neck: Yes: Supple Cardiovascular: Yes: Regular Rate and Rhythm Respiratory: Yes: Regular, On Nasal O2 Gastrointestinal: Yes: Normal Bowel Sounds, Soft, Abdomen, Obese Musculoskeletal: Yes: Joint Stiffness Edema: No Labs: CBC, BMP 08/20/18 06:00 08/20/18 06:00 INR, PTT INR 1.14 (0.83-1.09) H 08/19/18 06:00 Problem List - Problems (1) NSTEMI (non-ST elevated myocardial infarction) Code(s): I21.4 - NON-ST ELEVATION (NSTEMI) MYOCARDIAL INFARCTION (2) Hyponatremia Code(s): E87.1 - HYPO-OSMOLALITY AND HYPONATREMIA (3) CAD (coronary artery disease) Code(s): I25.10 - ATHSCL HEART DISEASE OF [place] CORONARY ARTERY W/O ANG PCTRS Qualifiers: Coronary Disease-Associated Artery/Lesion type: [place] artery [place] vs. transplanted heart: [place] heart Associated angina: with unstable angina Qualified Code(s): I25.110 - Atherosclerotic heart disease of [place] coronary artery with unstable angina pectoris (4) CKD (chronic kidney disease) stage 3, GFR 30-59 ml/min Code(s): N18.3 - CHRONIC KIDNEY DISEASE, STAGE 3 (MODERATE) (5) Chronic combined systolic and diastolic heart failure Code(s): I50.42 - CHRONIC COMBINED SYSTOLIC AND DIASTOLIC HRT FAIL (6) Hyperlipidemia Code(s): E78.5 - HYPERLIPIDEMIA, UNSPECIFIED Qualifiers: Hyperlipidemia type: pure hypercholesterolemia Qualified Code(s): E78.00 - Pure hypercholesterolemia, unspecified; E78.0 - Pure hypercholesterolemia (7) Hypertensive cardiomyopathy Code(s): I11.9 - HYPERTENSIVE HEART DISEASE WITHOUT HEART FAILURE; I43 - CARDIOMYOPATHY IN DISEASES CLASSIFIED ELSEWHERE Qualifiers: Heart failure presence: with heart failure Qualified Code(s): I11.0 - Hypertensive heart disease with heart failure; I43 - Cardiomyopathy in diseases classified elsewhere (8) Hypothyroidism Code(s): E03.9 - HYPOTHYROIDISM, UNSPECIFIED Qualifiers: Hypothyroidism type: unspecified Qualified Code(s): E03.9 - Hypothyroidism , unspecified (9) S/P CABG (coronary artery bypass graft) Code(s): Z95.1 - PRESENCE OF AORTOCORONARY BYPASS GRAFT (10) Type 2 diabetes mellitus Code(s): E11.9 - TYPE 2 DIABETES MELLITUS WITHOUT COMPLICATIONS Qualifiers: Diabetes mellitus longterm insulin use: without keno terminal operator use Diabetes mellitus complication status: with circulatory complication Diabetes mellitus complication detail: with peripheral angiopathy with gangrene Qualified Code(s ): E11.52 - Type 2 diabetes mellitus with diabetic peripheral angiopathy with gangrene Assessment/Plan 08/19/2018 Echo: Mild-mod decreased LVEF 40-45% with AK in old LAD infarct, normal RV size and fxn, mild LAE, mild MR, mod TR 09/10/2017 Echo: (Old LAD infarct) mild-moderate decrease in LV systolic function, mild ISA, trace MR, severe apical septal and apical lateral hypokinesia 1. Acute on Chronic Systolic/diastolic LV failure 2. CAD h/o [place], CABG, NSTEMI 3. Abdominal discomfort->fecal retention 4. History of cerebrovascular disease 5. History of PAD let toe osteomyelitis post HBO2 6. HTN 7. DM not at goal control 8. Hyperlipidemia not at goal control 9. Hypothyroidism 10. CKD 11. Hyponatremia PLAN: 1. Resume oral diuresis with monitor diuretic response, renal fxn and electrolytes 2. Continue Carvedilol 12.5 bid 2. Increase Altace 5 qd and titrate dosage as tolerated and as needed, with close monitoring or renal function 3. Continue Ranexa 500 bid 4. Continue Lipitor 40 qhs, add Zetia 10 qd 5. Continue ASA 81 qd, Plavix 75 qd and d/c heparin gtt as trops downtrending 6. Consider the addition of Jardiance if not contraindicated (cardiovascular benefits) 7. DVT and GI prophylaxis, bowel regimen, not ideal invasive therapy candidate given multiple co-morbidities
--- NOTE | 2018-08-20 13:49 | PN ---
Teaching Attending Note Name of Resident: Tao Lee ATTENDING PHYSICIAN STATEMENT I saw and evaluated the patient. I reviewed the resident's note and discussed the case with the resident. I agree with the resident's findings and plan as documented. SUBJECTIVE: Still complains of generalized pain, Left shoulder, R hip, but also included legs and hands. Today she denies chest heaviness/tightness - no palps/ diaphoresis/lightheadedness. No cough/sputum/hemoptysis/fever/chills/nausea/ vomiting/diarrhea/dysuria/hematuria. OBJECTIVE: Afebrile, Hemodynamically Stable. Last Vital Signs Temp Pulse Resp BP Pulse Ox 97.8 F 61 20 136/52 L 93 L 08/20/18 10:00 08/20/18 10:00 08/20/18 10:08/20/18 10:00 08/20/18 08:00 HEENT - Atraumatic, Normocephalic. Heart - S1, S2, RRR. Midline Sternotomy scar Lungs - bibasal decreased air entry Abdomen - Soft, non-tender. Bowel Sounds normal. Extremities - no edema, no calf tenderness MS - decreased ROM about L shoulder - no joint swelling/erythema/tenderness Laboratory Results - last 24 hr 08/19/18 08/19/18 08/19/18 12:35 16:45 21:51 WBC RBC Hgb Hct MCV MCH MCHC RDW Plt Count MPV Absolute Neuts (auto) Neutrophils % Lymphocytes % Monocytes % Eosinophils % Basophils % Nucleated RBC % PTT (Actin FS) Sodium Potassium Chloride Carbon Dioxide Anion Gap BUN Creatinine Creat Clearance w eGFR POC Glucometer 154 217 Random Glucose Hemoglobin A1c % Calcium Phosphorus Magnesium Troponin I 2.48 H* Triglycerides Cholesterol Total LDL Cholesterol HDL Cholesterol Free T4 08/20/18 08/20/18 08/20/18 05:30 06:00 06:00 WBC RBC Hgb Hct MCV MCH MCHC RDW Plt Count MPV Absolute Neuts (auto) Neutrophils % Lymphocytes % Monocytes % Eosinophils % Basophils % Nucleated RBC % PTT (Actin FS) 65.5 H Sodium 135 L Potassium 4.5 Chloride 99 Carbon Dioxide 27 Anion Gap 8 BUN 38 H Creatinine 1.3 Creat Clearance w eGFR 39.12 POC Glucometer 129 Random Glucose 131 H Hemoglobin A1c % Calcium 8.0 L Phosphorus 3.8 Magnesium 2.2 Troponin I Triglycerides 112 Cholesterol 199 Total LDL Cholesterol 122 H HDL Cholesterol 61 H Free T4 0.98 08/20/18 08/20/18 08/20/18 06:00 06:00 11:38 WBC 8.6 RBC 3.24 L Hgb 9.6 L Hct 29.3 L MCV 90.2 MCH 29.6 MCHC 32.9 RDW 14.2 Plt Count 214 MPV 9.2 Absolute Neuts (auto) 4.8 Neutrophils % 56.0 Lymphocytes % 29.2 Monocytes % 12.3 H Eosinophils % 1.8 D Basophils % 0.7 Nucleated RBC % 0 PTT (Actin FS) Sodium Potassium Chloride Carbon Dioxide Anion Gap BUN Creatinine Creat Clearance w eGFR POC Glucometer 259 Random Glucose Hemoglobin A1c % 9.1 H Calcium Phosphorus Magnesium Troponin I Triglycerides Cholesterol Total LDL Cholesterol HDL Cholesterol Free T4 Current Medications Generic Name Dose Route Start Last Admin Trade Name Freq PRN Reason Stop Dose Admin Aspirin 81 mg 08/19/18 10:00 08/20/18 09:58 Asa - PO 81 mg DAILY [facility] Administration Atorvastatin Calcium 40 mg 08/18/18 22:00 08/19/18 21:45 Lipitor - PO 40 mg HS [facility] Administration Carvedilol 12.5 mg 08/18/18 22:00 08/20/18 09:58 Coreg - PO 12.5 mg BID [facility] Administration Clopidogrel Bisulfate 75 mg 08/19/18 10:45 08/20/18 09:58 Plavix - PO 75 mg DAILY [facility] Administration Docusate Sodium 300 mg 08/18/18 22:00 08/19/18 21:45 Colace - PO 300 mg HS [facility] Administration Ezetimibe 10 mg 08/20/18 11:45 Zetia - PO DAILY [facility] Furosemide 20 mg 08/21/18 10:00 Lasix - PO DAILY [facility] Gabapentin 600 mg 08/18/18 22:00 08/20/18 05:33 Neurontin - PO 600 mg TID [facility] Administration Insulin Aspart 1 vial 08/18/18 22:00 08/20/18 12:03 Novolog Vial Sliding Scale - SQ 6 unit ACHS [facility] Administration Protocol Insulin Detemir 35 units 08/18/18 22:00 08/19/18 21:52 Levemir Vial SQ 35 unit HS [facility] Administration Levothyroxine Sodium 88 mcg 08/19/18 07:00 08/20/18 06:34 Synthroid - PO 88 mcg DAILY@0700 [facility] Administration Magnesium Hydroxide 30 ml 08/18/18 18:30 Milk Of Magnesia - PO DAILY PRN CONSTIPATION Nitroglycerin 0.4 mg 08/19/18 11:16 08/20/18 06:00 Nitrostat - SL 0.4 mg Q5M PRN Administration FOR CHEST PAIN Pantoprazole Sodium 40 mg 08/19/18 10:00 08/20/18 10:05 Protonix - PO 40 mg DAILY [facility] Administration Polyethylene Glycol 17 gm 08/18/18 18:30 08/20/18 09:58 Miralax (For Daily Use) - PO 17 gm DAILY [facility] Administration Ramipril 5 mg 08/20/18 11:46 Altace - PO DAILY [facility] Ranolazine 500 mg 08/18/18 22:00 08/20/18 10:05 Ranexa - PO 500 mg BID [facility] Administration Senna 2 tab 08/18/18 22:00 08/19/18 21:45 Senna - PO 2 tab HS [facility] Administration ASSESSMENT AND PLAN: 83 year old female with history of HTN, HLD, CAD s/p CABG, GERD, CKD 3, Hx CVA, DM 2 with neuropathy, chronic diffuse pain, hypothyroidism, chronic L great toe osteomyelitis (treated with IV Abx/Hyperbaric Therapy) presents with complaints of generalized pain, mostly in Left shoulder and R hip, found to have hyperglycemia with intermittent chest pain and some SOB but no cough/sputum/ hemoptysis/fever. CT A/P showed interval development since 02/25/18 of pulmonary vascular congestion and b/l effusions as well as moderate colonic fecal retention. Left shoulder XR - DJD R Hip XR - no acute findings. 1. Acute NSTEMI in setting of bilateral effusions and acute systolic CHF exacerbation TropI 0.02 --- > 0.36 ---> 3.04 ---> 2.48 ECG - no acute changes. Bilateral effusions on CT Chest BNP 5285 Received IV Lasix - now transitioned to oral Lasix. 08/19/2018 Echo: Mild-mod decreased LVEF 40-45%, akinesis of midanterior wall, apical septum, apex proper; normal RV size and fxn, mild LAE, mild MR, mod TR Continue Aspirin, Plavix, BB, PRATIBHA-I, Statin, Ranexa, Heparin drip ongoing. Discussed with Cardiology - poor candidate for transfer for Cath - for medical therapy. NTG prn for chest pain Currently hemodynamically Stable. LDL 122 2. Constipation - on bowel regimen 3. L shoulder pain with decreased ROM, possible frozen shoulder. For orthopedic eval once stable from perspective of ongoing acute cardiac process. 4.. DM 2 with Hyperglycemia - uncontrolled, A1C 9.1. Will resume Insulin regimen and monitor. Oral anti-hyperglycemics held. 5. Hypothyroidism - Continue Synthroid. 6. GERD - Continue PPI 7. CKD 3 - Stable. 8. HTN - Continue Ramipril and Coreg DVT Px - on Heparin drip.
--- NOTE | 2018-08-20 13:54 | PN ---
Progress Note (short form) - Note Progress Note: Generalized joint pain and fatigue. No CP or SOB. No acute events overnight. Intake & Output 08/17/18 08/18/18 08/19/18 08/20/18 23:59 23:59 23:59 23:59 Intake Total 480 528 Output Total 300 Balance 180 528 Weight 176 lb 180 lb Last Vital Signs Temp Pulse Resp BP Pulse Ox 97.8 F 61 20 136/52 L 93 L 08/20/18 10:00 08/20/18 10:00 08/20/18 10:00 08/20/18 10:00 08/20/18 08:00 Active Medications Aspirin (Asa -) 81 mg PO DAILY [facility] Last Admin: 08/20/18 09:58 Dose: 81 mg Atorvastatin Calcium (Lipitor -) 40 mg PO [facility] Last Admin: 08/19/18 21:45 Dose: 40 mg Carvedilol (Coreg -) 12.5 mg PO BID [facility] Last Admin: 08/20/18 09:58 Dose: 12.5 mg Clopidogrel Bisulfate (Plavix -) 75 mg PO DAILY [facility] Last Admin: 08/20/18 09:58 Dose: 75 mg Docusate Sodium (Colace -) 300 mg PO [facility] Last Admin: 08/19/18 21:45 Dose: 300 mg Ezetimibe (Zetia -) 10 mg PO DAILY [facility] Furosemide (Lasix -) 20 mg PO DAILY [facility] Gabapentin (Neurontin -) 600 mg PO TID [facility] Last Admin: 08/20/18 05:33 Dose: 600 mg Insulin Aspart (Novolog Vial Sliding Scale -) 1 vial SQ [facility]; Protocol Last Admin: 08/20/18 12:03 Dose: 6 unit Insulin Detemir (Levemir Vial) 35 units SQ [facility] Last Admin: 08/19/18 21:52 Dose: 35 unit Levothyroxine Sodium (Synthroid -) 88 mcg PO DAILY@0700 [facility] Last Admin: 08/20/18 06:34 Dose: 88 mcg Magnesium Hydroxide (Milk Of Magnesia -) 30 ml PO DAILY PRN PRN Reason: CONSTIPATION Nitroglycerin (Nitrostat -) 0.4 mg SL Q5M PRN PRN Reason: FOR CHEST PAIN Last Admin: 08/20/18 06:00 Dose: 0.4 mg Pantoprazole Sodium (Protonix -) 40 mg PO DAILY [facility] Last Admin: 08/20/18 10:05 Dose: 40 mg Polyethylene Glycol (Miralax (For Daily Use) -) 17 gm PO DAILY [facility] Last Admin: 08/20/18 09:58 Dose: 17 gm Ramipril (Altace -) 5 mg PO DAILY [facility] Ranolazine (Ranexa -) 500 mg PO BID [facility] Last Admin: 08/20/18 10:05 Dose: 500 mg Senna (Senna -) 2 tab PO HS [facility] Last Admin: 08/19/18 21:45 Dose: 2 tab Constitutional: Yes: No Distress Neck: Yes: Supple Cardiovascular: Yes: Regular Rate and Rhythm Respiratory: Yes: Regular, On Nasal O2 Gastrointestinal: Yes: Normal Bowel Sounds, Soft, Abdomen, Obese Musculoskeletal: Yes: Joint Stiffness Edema: No Labs: Laboratory Results - last 24 hr 08/19/18 08/19/18 08/19/18 12:35 16:45 21:51 WBC RBC Hgb Hct MCV MCH MCHC RDW Plt Count MPV Absolute Neuts (auto) Neutrophils % Lymphocytes % Monocytes % Eosinophils % Basophils % Nucleated RBC % PTT (Actin FS) Sodium Potassium Chloride Carbon Dioxide Anion Gap BUN Creatinine Creat Clearance w eGFR POC Glucometer 154 217 Random Glucose Hemoglobin A1c % Calcium Phosphorus Magnesium Troponin I 2.48 H* Triglycerides Cholesterol Total LDL Cholesterol HDL Cholesterol Free T4 08/20/18 08/20/18 08/20/18 05:30 06:00 06:00 WBC RBC Hgb Hct MCV MCH MCHC RDW Plt Count MPV Absolute Neuts (auto) Neutrophils % Lymphocytes % Monocytes % Eosinophils % Basophils % Nucleated RBC % PTT (Actin FS) 65.5 H Sodium 135 L Potassium 4.5 Chloride 99 Carbon Dioxide 27 Anion Gap 8 BUN 38 H Creatinine 1.3 Creat Clearance w eGFR 39.12 POC Glucometer 129 Random Glucose 131 H Hemoglobin A1c % Calcium 8.0 L Phosphorus 3.8 Magnesium 2.2 Troponin I Triglycerides 112 Cholesterol 199 Total LDL Cholesterol 122 H HDL Cholesterol 61 H Free T4 0.98 08/20/18 08/20/18 08/20/18 06:00 06:00 11:38 WBC 8.6 RBC 3.24 L Hgb 9.6 L Hct 29.3 L MCV 90.2 MCH 29.6 MCHC 32.9 RDW 14.2 Plt Count 214 MPV 9.2 Absolute Neuts (auto) 4.8 Neutrophils % 56.0 Lymphocytes % 29.2 Monocytes % 12.3 H Eosinophils % 1.8 D Basophils % 0.7 Nucleated RBC % 0 PTT (Actin FS) Sodium Potassium Chloride Carbon Dioxide Anion Gap BUN Creatinine Creat Clearance w eGFR POC Glucometer 259 Random Glucose Hemoglobin A1c % 9.1 H Calcium Phosphorus Magnesium Troponin I Triglycerides Cholesterol Total LDL Cholesterol HDL Cholesterol Free T4 L Problem List - Problems (1) Generalized pain Code(s): R52 - PAIN, UNSPECIFIED (2) CHF exacerbation Code(s): I50.9 - HEART FAILURE, UNSPECIFIED (3) NSTEMI (non-ST elevated myocardial infarction) Code(s): I21.4 - NON-ST ELEVATION (NSTEMI) MYOCARDIAL INFARCTION (4) Toe ulcer Code(s): L97.509 - NON-PRESSURE CHRONIC ULCER OTH PRT UNSP FOOT W UNSP SEVERITY (5) CAD (coronary artery disease) Code(s): I25.10 - ATHSCL HEART DISEASE OF [place] CORONARY ARTERY W/O ANG PCTRS Qualifiers: Coronary Disease-Associated Artery/Lesion type: [place] artery [place] vs. transplanted heart: [place] heart Associated angina: with unstable angina Qualified Code(s): I25.110 - Atherosclerotic heart disease of [place] coronary artery with unstable angina pectoris (6) Chronic combined systolic and diastolic heart failure Code(s): I50.42 - CHRONIC COMBINED SYSTOLIC AND DIASTOLIC HRT FAIL (7) Diabetic neuropathy Code(s): E11.40 - TYPE 2 DIABETES MELLITUS WITH DIABETIC NEUROPATHY, UNSP (8) GERD (gastroesophageal reflux disease) Code(s): K21.9 - GASTRO-ESOPHAGEAL REFLUX DISEASE WITHOUT ESOPHAGITIS (9) Hypothyroidism Code(s): E03.9 - HYPOTHYROIDISM, UNSPECIFIED Qualifiers: Hypothyroidism type: unspecified Qualified Code(s): E03.9 - Hypothyroidism , unspecified (10) S/P CABG (coronary artery bypass graft) Code(s): Z95.1 - PRESENCE OF AORTOCORONARY BYPASS GRAFT IMP DYSPNEA ACUTE ON CHRONIC CHF ASHD S/P [place] ,CABG,NSTEMI MILD- MODERATE LV SYSTOLIC DYSFUNCTION + TROPONIN IDDM CHRONIC PAIN LEFT TOE OSTEO NEUROPATHY HYPOTHYROID HLD HAROLDO PLAN IV LASIX O2 HEPARIN NITRATES DAILY WT ANALGESICS MONITOR LYTES,RENAL FUNCTION DR ALVA
[2018-08-20] MEDS: MAGNESIUM HYDROX 2400MG/30ML ORAL SUSPENSION 30 ML CUP PO PRN (14:03)
[2018-08-20] MEDS: EZETIMIBE 10 MG TABLET (FP) PO SCH (14:04)
--- NOTE | 2018-08-20 20:01 | PN ---
Physical Exam: SUBJECTIVE: Patient seen and examined at bedside. Patient continues to complain of left shoulder pain and left hip pain, but denies SOB or chest pain. OBJECTIVE: Vital Signs Period Temp Pulse Resp BP Sys/Ibarra Pulse Ox Last 24 Hr 97.8 F-99.0 F 57-84 18-20 99-139/44-84 93-93 GENERAL: The patient is awake, alert, and fully oriented, in no acute distress. NECK: Trachea midline, full range of motion, supple. LUNGS: Breath sounds equal, clear to auscultation bilaterally, no wheezes, no crackles, no accessory muscle use. HEART: Regular rate and rhythm, S1, S2 without murmur, rub or gallop. ABDOMEN: Soft, nontender, nondistended, normoactive bowel sounds, no guarding, no rebound, no hepatosplenomegaly, no masses. EXTREMITIES: 2+ pulses, warm, well-perfused, no edema. NEUROLOGICAL: Cranial nerves II through X grossly intact. Normal speech, gait not observed. PSYCH: Normal mood, normal affect. SKIN: Warm, dry, normal turgor, no rashes or lesions noted Laboratory Results - last 24 hr 08/19/18 08/20/18 08/20/18 21:51 05:30 06:00 WBC RBC Hgb Hct MCV MCH MCHC RDW Plt Count MPV Absolute Neuts (auto) Neutrophils % Lymphocytes % Monocytes % Eosinophils % Basophils % Nucleated RBC % PTT (Actin FS) 65.5 H Sodium Potassium Chloride Carbon Dioxide Anion Gap BUN Creatinine Creat Clearance w eGFR POC Glucometer 217 129 Random Glucose Hemoglobin A1c % Calcium Phosphorus Magnesium Triglycerides Cholesterol Total LDL Cholesterol HDL Cholesterol Free T4 08/20/18 08/20/18 08/20/18 06:00 06:00 06:00 WBC 8.6 RBC 3.24 L Hgb 9.6 L Hct 29.3 L MCV 90.2 MCH 29.6 MCHC 32.9 RDW 14.2 Plt Count 214 MPV 9.2 Absolute Neuts (auto) 4.8 Neutrophils % 56.0 Lymphocytes % 29.2 Monocytes % 12.3 H Eosinophils % 1.8 D Basophils % 0.7 Nucleated RBC % 0 PTT (Actin FS) Sodium 135 L Potassium 4.5 Chloride 99 Carbon Dioxide 27 Anion Gap 8 BUN 38 H Creatinine 1.3 Creat Clearance w eGFR 39.12 POC Glucometer Random Glucose 131 H Hemoglobin A1c % 9.1 H Calcium 8.0 L Phosphorus 3.8 Magnesium 2.2 Triglycerides 112 Cholesterol 199 Total LDL Cholesterol 122 H HDL Cholesterol 61 H Free T4 0.98 08/20/18 08/20/18 11:38 16:53 WBC RBC Hgb Hct MCV MCH MCHC RDW Plt Count MPV Absolute Neuts (auto) Neutrophils % Lymphocytes % Monocytes % Eosinophils % Basophils % Nucleated RBC % PTT (Actin FS) Sodium Potassium Chloride Carbon Dioxide Anion Gap BUN Creatinine Creat Clearance w eGFR POC Glucometer 259 258 Random Glucose Hemoglobin A1c % Calcium Phosphorus Magnesium Triglycerides Cholesterol Total LDL Cholesterol HDL Cholesterol Free T4 Active Medications Generic Name Dose Route Start Last Admin Trade Name Freq PRN Reason Stop Dose Admin Aspirin 81 mg 08/19/18 10:00 08/20/18 09:58 Asa - PO 81 mg DAILY [facility] Administration Atorvastatin Calcium 40 mg 08/18/18 22:00 08/19/18 21:45 Lipitor - PO 40 mg HS [facility] Administration Carvedilol 12.5 mg 08/18/18 22:00 08/20/18 09:58 Coreg - PO 12.5 mg BID [facility] Administration Clopidogrel Bisulfate 75 mg 08/19/18 10:45 08/20/18 09:58 Plavix - PO 75 mg DAILY [facility] Administration Docusate Sodium 300 mg 08/18/18 22:00 08/19/18 21:45 Colace - PO 300 mg HS [facility] Administration Ezetimibe 10 mg 08/20/18 11:45 08/20/18 14:04 Zetia - PO 10 mg DAILY [facility] Administration Furosemide 20 mg 08/21/18 10:00 Lasix - PO DAILY [facility] Gabapentin 600 mg 08/18/18 22:00 08/20/18 14:04 Neurontin - PO 600 mg TID [facility] Administration Insulin Aspart 1 vial 08/18/18 22:00 08/20/18 17:11 Novolog Vial Sliding Scale - SQ 6 unit ACHS [facility] Administration Protocol Insulin Detemir 35 units 08/18/18 22:00 08/19/18 21:52 Levemir Vial SQ 35 unit HS [facility] Administration Levothyroxine Sodium 88 mcg 08/19/18 07:00 08/20/18 06:34 Synthroid - PO 88 mcg DAILY@0700 [facility] Administration Magnesium Hydroxide 30 ml 08/18/18 18:30 08/20/18 14:03 Milk Of Magnesia - PO 30 ml DAILY PRN Administration CONSTIPATION Nitroglycerin 0.4 mg 08/19/18 11:16 08/20/18 06:00 Nitrostat - SL 0.4 mg Q5M PRN Administration FOR CHEST PAIN Pantoprazole Sodium 40 mg 08/19/18 10:00 08/20/18 10:05 Protonix - PO 40 mg DAILY [facility] Administration Polyethylene Glycol 17 gm 08/18/18 18:30 08/20/18 09:58 Miralax (For Daily Use) - PO 17 gm DAILY [facility] Administration Ramipril 5 mg 08/20/18 11:46 Altace - PO DAILY [facility] Ranolazine 500 mg 08/18/18 22:00 08/20/18 10:05 Ranexa - PO 500 mg BID [facility] Administration Senna 2 tab 08/18/18 22:00 08/19/18 21:45 Senna - PO 2 tab HS [facility] Administration ASSESSMENT/PLAN: 83 y/o F w/ PMHx HTN, IDDM, HLD, CAD, CHF, GERD, neuropathy, chronic diffuse pain, hypothyroidism, chronic L great toe osteomyelitis p/w chief complaint of overall chronic body pain worsening over past three days. Presented hyperglycemic w/ CT findings of b/l pleural effusions and colonic retention, and troponemia. #NSTEMI -serial troponins peaked at 3.04, now downtrending -no acute ST changes on serial EKGs -cardiology consulted -continuing medical management w/ heparin gtt, carvedilol, altace, ranexa, lipitor, ASA; plavix added -sublingual nitro for chest pain -echo showing 40-45% EF; caution with fluids #CHF exacerbation -echo showing 40-45% EF -congestion/pleural effusions b/l on CT a/p -pulmonology following -IV Lasix daily -strict I&O, daily weights. #constipation -bowel regimen #DM -Levemir 35U HS -BGM, SSI #hypothyroid -home LTX #FEN -no indication for IVF -monitor and replete electrolytes -diabetic diet #Prophy -Heparin SQ 5k units Q8H #dispo -admit telemetry Visit type - Emergency Visit Emergency Visit: Yes ED Registration Date: 08/20/18 Care time: The patient presented to the Emergency Department on the above date and was hospitalized for further evaluation of their emergent condition. - New Patient This patient is new to me today: Yes Date on this admission: 08/20/18 - Critical Care Critical Care patient: No - Discharge Referral Referred to [facility] Med P.C.: No
[2018-08-20] MEDS: DOCUSATE SODIUM 100 MG CAPSULE (FP) PO SCH (21:48)
[2018-08-20] MEDS: SENNOSIDES 8.6MG TABLET (FP) PO SCH (21:49)
[2018-08-20] MEDS: INSULIN (LEVEMIR) 100 UNITS/ML UNITS SQ SCH (21:50)
[2018-08-20] MEDS: ATORVASTATIN CA 40 MG TABLET (FP) PO SCH (21:50)
[2018-08-21] MEDS: INSULIN SLIDING SCALE (NOVOLOG) 1 VIAL SQ SCH ×4 (06:24→23:06)
[2018-08-21] MEDS: LEVOTHYROXINE NA 88 MCG TABLET (FP) PO SCH (06:26)
[2018-08-21] MEDS: GABAPENTIN 300 MG CAPSULE (FP) PO SCH ×3 (06:26→22:56)
[2018-08-21] MEDS: MAGNESIUM HYDROX 2400MG/30ML ORAL SUSPENSION 30 ML CUP PO PRN (06:27)
[2018-08-21 08:17] LABS: HEMATOCRIT 30.2 % (32.4-45.2); HEMOGLOBIN 9.8 GM/dL (10.7-15.3); MCH 29.5 pg (25.7-33.7); MCHC 32.6 g/dl (32.0-36.0); MEAN CELL VOLUME 90.6 fl (80-96); PLATELET COUNT 207 K/MM3 (134-434); RBC 3.33 M/mm3 (3.60-5.2); RDW 13.9 % (11.6-15.6); WHITE BLOOD COUNT 8.2 K/mm3 (4.0-10.0)
[2018-08-21 08:33] LABS: INR 1.18 (0.83-1.09); PROTHROMBIN TIME (PATIENT) 13.9 SEC (9.7-13.0)
[2018-08-21 08:42] LABS: ANION GAP 5 MMOL/L (8-16); BLOOD UREA NITROGEN 40 mg/dL (7-18); CALCIUM 8.5 mg/dL (8.5-10.1); CHLORIDE 95 mmol/L (98-107); CO2 31 mmol/L (21-32); CREATININE 1.3 mg/dL (0.55-1.3); GLUCOSE,RANDOM 111 mg/dL (74-106); MAGNESIUM 2.8 mg/dL (1.8-2.4); PHOSPHOROUS 3.5 mg/dL (2.5-4.9); POTASSIUM 4.8 mmol/L (3.5-5.1); SODIUM 132 mmol/L (136-145)
[2018-08-21] MEDS: RAMIPRIL 2.5 MG CAPSULE (FP) PO SCH (09:20)
[2018-08-21] MEDS: FUROSEMIDE 20 MG TABLET (FP) PO SCH (09:21)
[2018-08-21] MEDS: CLOPIDOGREL BISULFATE 75 MG TABLET (FP) PO SCH (09:21)
[2018-08-21] MEDS: PANTOPRAZOLE 40 MG TABLET (FP) PO SCH (09:21)
[2018-08-21] MEDS: EZETIMIBE 10 MG TABLET (FP) PO SCH (09:21)
[2018-08-21] MEDS: RANOLAZINE E.R. 500 MG TABLET (FP) PO SCH ×2 (09:21→22:56)
[2018-08-21] MEDS: ASPIRIN 81 MG CHEWABLE TABLETS PO SCH (09:21)
[2018-08-21] MEDS: CARVEDILOL 12.5 MG TABLET (FP) PO SCH ×2 (09:21→22:56)
[2018-08-21] MEDS: POLYETHYLENE GLYCOL 3350 119 GM BTL PO SCH (09:22)
--- NOTE | 2018-08-21 12:19 | PN ---
Progress Note (short form) - Note Progress Note: Still with generalized joint pain and fatigue. No CP or SOB. No acute events overnight. Intake & Output 08/18/18 08/19/18 08/20/18 08/21/18 23:59 23:59 23:59 23:59 Intake Total 480 768 540 Output Total 300 Balance 180 768 540 Weight 176 lb 180 lb Last Vital Signs Temp Pulse Resp BP Pulse Ox 98.8 F 57 L 18 107/48 L 95 08/21/18 09:10 08/21/18 09:10 08/21/18 09:10 08/21/18 09:10 08/21/18 08:49 Active Medications Aspirin (Asa -) 81 mg PO DAILY [facility] Last Admin: 08/21/18 09:21 Dose: 81 mg Atorvastatin Calcium (Lipitor -) [address] [facility] Last Admin: 08/20/18 21:50 Dose: 40 mg Carvedilol (Coreg -) 12.5 mg PO BID [facility] Last Admin: 08/21/18 09:21 Dose: 12.5 mg Clopidogrel Bisulfate (Plavix -) 75 mg PO DAILY [facility] Last Admin: 08/21/18 09:21 Dose: 75 mg Docusate Sodium (Colace -) [address] [facility] Last Admin: 08/20/18 21:48 Dose: 300 mg Ezetimibe (Zetia -) 10 mg PO DAILY [facility] Last Admin: 08/21/18 09:21 Dose: 10 mg Furosemide (Lasix -) 20 mg PO DAILY [facility] Last Admin: 08/21/18 09:21 Dose: 20 mg Gabapentin (Neurontin -) 600 mg PO TID [facility] Last Admin: 08/21/18 06:26 Dose: 600 mg Insulin Aspart (Novolog Vial Sliding Scale -) 1 vial SQ [facility]; Protocol Last Admin: 08/21/18 11:45 Dose: 2 unit Insulin Detemir (Levemir Vial) [address] [facility] Last Admin: 08/20/18 21:50 Dose: 35 unit Levothyroxine Sodium (Synthroid -) 88 mcg PO DAILY@0700 [facility] Last Admin: 08/21/18 06:26 Dose: 88 mcg Magnesium Hydroxide (Milk Of Magnesia -) 30 ml PO DAILY PRN PRN Reason: CONSTIPATION Last Admin: 08/21/18 06:27 Dose: 30 ml Nitroglycerin (Nitrostat -) 0.4 mg SL Q5M PRN PRN Reason: FOR CHEST PAIN Last Admin: 08/20/18 06:00 Dose: 0.4 mg Pantoprazole Sodium (Protonix -) 40 mg PO DAILY [facility] Last Admin: 08/21/18 09:21 Dose: 40 mg Polyethylene Glycol (Miralax (For Daily Use) -) 17 gm PO DAILY [facility] Last Admin: 08/21/18 09:22 Dose: 17 gm Ramipril (Altace -) 5 mg PO DAILY [facility] Last Admin: 08/21/18 09:20 Dose: 5 mg Ranolazine (Ranexa -) 500 mg PO BID [facility] Last Admin: 08/21/18 09:21 Dose: 500 mg Senna (Senna -) 2 tab PO HS [facility] Last Admin: 08/20/18 21:49 Dose: 2 tab Constitutional: Yes: No Distress Neck: Yes: Supple Cardiovascular: Yes: Regular Rate and Rhythm Respiratory: Yes: Regular, On Nasal O2 Gastrointestinal: Yes: Normal Bowel Sounds, Soft, Abdomen, Obese Musculoskeletal: Yes: Joint Stiffness Edema: No Labs: Laboratory Results - last 24 hr 08/20/18 08/20/18 08/21/18 16:53 21:46 05:42 WBC RBC Hgb Hct MCV MCH MCHC RDW Plt Count MPV PT with INR INR PTT (Actin FS) Sodium Potassium Chloride Carbon Dioxide Anion Gap BUN Creatinine Creat Clearance w eGFR POC Glucometer 258 263 60 Random Glucose Calcium Phosphorus Magnesium 08/21/18 08/21/18 08/21/18 07:00 07:00 07:00 WBC 8.2 RBC 3.33 L Hgb 9.8 L Hct 30.2 L MCV 90.6 MCH 29.5 MCHC 32.6 RDW 13.9 Plt Count 207 MPV 9.0 PT with INR 13.90 H INR 1.18 H PTT (Actin FS) 31.3 Sodium Potassium Chloride Carbon Dioxide Anion Gap BUN Creatinine Creat Clearance w eGFR POC Glucometer Random Glucose Calcium Phosphorus Magnesium 08/21/18 08/21/18 07:00 11:18 WBC RBC Hgb Hct MCV MCH MCHC RDW Plt Count MPV PT with INR INR PTT (Actin FS) Sodium 132 L Potassium 4.8 Chloride 95 L Carbon Dioxide 31 Anion Gap 5 L BUN 40 H Creatinine 1.3 Creat Clearance w eGFR 39.12 POC Glucometer 177 Random Glucose 111 H Calcium 8.5 Phosphorus 3.5 Magnesium 2.8 H Problem List - Problems (1) Generalized pain Code(s): R52 - PAIN, UNSPECIFIED (2) CHF exacerbation Code(s): I50.9 - HEART FAILURE, UNSPECIFIED (3) NSTEMI (non-ST elevated myocardial infarction) Code(s): I21.4 - NON-ST ELEVATION (NSTEMI) MYOCARDIAL INFARCTION (4) Toe ulcer Code(s): L97.509 - NON-PRESSURE CHRONIC ULCER OTH PRT UNSP FOOT W UNSP SEVERITY (5) CAD (coronary artery disease) Code(s): I25.10 - ATHSCL HEART DISEASE OF [place] CORONARY ARTERY W/O ANG PCTRS Qualifiers: Coronary Disease-Associated Artery/Lesion type: [place] artery [place] vs. transplanted heart: [place] heart Associated angina: with unstable angina Qualified Code(s): I25.110 - Atherosclerotic heart disease of [place] coronary artery with unstable angina pectoris (6) Chronic combined systolic and diastolic heart failure Code(s): I50.42 - CHRONIC COMBINED SYSTOLIC AND DIASTOLIC HRT FAIL (7) Diabetic neuropathy Code(s): E11.40 - TYPE 2 DIABETES MELLITUS WITH DIABETIC NEUROPATHY, UNSP (8) GERD (gastroesophageal reflux disease) Code(s): K21.9 - GASTRO-ESOPHAGEAL REFLUX DISEASE WITHOUT ESOPHAGITIS (9) Hypothyroidism Code(s): E03.9 - HYPOTHYROIDISM, UNSPECIFIED Qualifiers: Hypothyroidism type: unspecified Qualified Code(s): E03.9 - Hypothyroidism , unspecified (10) S/P CABG (coronary artery bypass graft) Code(s): Z95.1 - PRESENCE OF AORTOCORONARY BYPASS GRAFT IMP DYSPNEA ACUTE ON CHRONIC CHF ASHD S/P [place] ,CABG,NSTEMI MILD- MODERATE LV SYSTOLIC DYSFUNCTION + TROPONIN IDDM CHRONIC PAIN LEFT TOE OSTEO NEUROPATHY HYPOTHYROID HLD HAROLDO PLAN IV LASIX O2 NEEDED ASA / PLAVIX DAILY WT ANALGESICS MONITOR LYTES, RENAL FUNCTION DR ALVA
[2018-08-21] MEDS ORDERED: POLYETHYLENE GLYCOL 3350 119 GM BTL PO STA (13:12)
--- NOTE | 2018-08-21 13:56 | PN ---
Progress Note (short form) - Note Progress Note: SUBJECTIVE: Still complains of generalized pain, Left shoulder, R hip, but also legs and hands. She denies any further chest heaviness/tightness - no palps/ diaphoresis/lightheadedness. No cough/sputum/hemoptysis/fever/chills/nausea/ vomiting/diarrhea/dysuria/hematuria. Complains of some constipation. OBJECTIVE: Afebrile, Hemodynamically Stable. Last Vital Signs Temp Pulse Resp BP Pulse Ox 98.8 F 57 L 18 107/48 L 95 08/21/18 09:10 08/21/18 09:10 08/21/18 09:10 08/21/18 09:10 08/21/18 08:49 Heart - S1, S2, RRR. Midline Sternotomy scar Lungs - bibasal decreased air entry Abdomen - Soft, mild generalized tenderness. Bowel Sounds normal. Extremities - no edema, no calf tenderness MS - decreased ROM about L shoulder - no joint swelling/erythema/tenderness Laboratory Results - last 24 hr 08/20/18 08/20/18 08/21/18 16:53 21:46 05:42 WBC RBC Hgb Hct MCV MCH MCHC RDW Plt Count MPV PT with INR INR PTT (Actin FS) Sodium Potassium Chloride Carbon Dioxide Anion Gap BUN Creatinine Creat Clearance w eGFR POC Glucometer 258 263 60 Random Glucose Calcium Phosphorus Magnesium 08/21/18 08/21/18 08/21/18 07:00 07:00 07:00 WBC 8.2 RBC 3.33 L Hgb 9.8 L Hct 30.2 L MCV 90.6 MCH 29.5 MCHC 32.6 RDW 13.9 Plt Count 207 MPV 9.0 PT with INR 13.90 H INR 1.18 H PTT (Actin FS) 31.3 Sodium Potassium Chloride Carbon Dioxide Anion Gap BUN Creatinine Creat Clearance w eGFR POC Glucometer Random Glucose Calcium Phosphorus Magnesium 08/21/18 08/21/18 07:00 11:18 WBC RBC Hgb Hct MCV MCH MCHC RDW Plt Count MPV PT with INR INR PTT (Actin FS) Sodium 132 L Potassium 4.8 Chloride 95 L Carbon Dioxide 31 Anion Gap 5 L BUN 40 H Creatinine 1.3 Creat Clearance w eGFR 39.12 POC Glucometer 177 Random Glucose 111 H Calcium 8.5 Phosphorus 3.5 Magnesium 2.8 H Current Medications Generic Name Dose Route Start Last Admin Trade Name Freq PRN Reason Stop Dose Admin Aspirin 81 mg 08/19/18 10:00 08/21/18 09:21 Asa - PO 81 mg DAILY [facility] Administration Atorvastatin Calcium 40 mg 08/18/18 22:00 08/20/18 21:50 Lipitor - PO 40 mg HS [facility] Administration Carvedilol 12.5 mg 08/18/18 22:00 08/21/18 09:21 Coreg - PO 12.5 mg BID [facility] Administration Clopidogrel Bisulfate 75 mg 08/19/18 10:45 08/21/18 09:21 Plavix - PO 75 mg DAILY [facility] Administration Docusate Sodium 300 mg 08/18/18 22:00 08/20/18 21:48 Colace - PO 300 mg HS [facility] Administration Ezetimibe 10 mg 08/20/18 11:45 08/21/18 09:21 Zetia - PO 10 mg DAILY [facility] Administration Furosemide 20 mg 08/21/18 10:00 08/21/18 09:21 Lasix - PO 20 mg DAILY [facility] Administration Gabapentin 600 mg 08/18/18 22:00 08/21/18 13:47 Neurontin - PO 600 mg TID [facility] Administration Insulin Aspart 1 vial 08/18/18 22:00 08/21/18 11:45 Novolog Vial Sliding Scale - SQ 2 unit ACHS [facility] Administration Protocol Insulin Detemir 35 units 08/18/18 22:00 08/20/18 21:50 Levemir Vial SQ 35 unit HS [facility] Administration Levothyroxine Sodium 88 mcg 08/19/18 07:00 08/21/18 06:26 Synthroid - PO 88 mcg DAILY@0700 [facility] Administration Magnesium Hydroxide 30 ml 08/18/18 18:30 08/21/18 06:27 Milk Of Magnesia - PO 30 ml DAILY PRN Administration CONSTIPATION Nitroglycerin 0.4 mg 08/19/18 11:16 08/20/18 06:00 Nitrostat - SL 0.4 mg Q5M PRN Administration FOR CHEST PAIN Pantoprazole Sodium 40 mg 08/19/18 10:00 08/21/18 09:21 Protonix - PO 40 mg DAILY [facility] Administration Polyethylene Glycol 17 gm 08/18/18 18:30 08/21/18 09:22 Miralax (For Daily Use) - PO 17 gm DAILY [facility] Administration Ramipril 5 mg 08/20/18 11:46 08/21/18 09:20 Altace - PO 5 mg DAILY [facility] Administration Ranolazine 500 mg 08/18/18 22:00 08/21/18 09:21 Ranexa - PO 500 mg BID [facility] Administration Senna 2 tab 08/18/18 22:00 08/20/18 21:49 Senna - PO 2 tab HS [facility] Administration ASSESSMENT AND PLAN: 83 year old female with history of HTN, HLD, CAD s/p CABG, GERD, CKD 3, Hx CVA, DM 2 with neuropathy, chronic diffuse pain, hypothyroidism, chronic L great toe osteomyelitis (treated with IV Abx/Hyperbaric Therapy) presents with complaints of generalized pain, mostly in Left shoulder and R hip, found to have hyperglycemia with intermittent chest pain and some SOB but no cough/sputum/ hemoptysis/fever. CT A/P showed interval development since 02/25/18 of pulmonary vascular congestion and b/l effusions as well as moderate colonic fecal retention. Left shoulder XR - DJD R Hip XR - no acute findings. 1. Acute NSTEMI in setting of bilateral effusions and acute on chronic systolic CHF exacerbation Hx CAD s/p TN s/p CABG TropI 0.02 --- > 0.36 ---> 3.04 ---> 2.48 ECG - no acute changes. Bilateral effusions on CT Chest BNP 5285 Received IV Lasix - now transitioned to oral Lasix. 08/19/2018 Echo: Mild-mod decreased LVEF 40-45%, akinesis of midanterior wall, apical septum, apex proper; normal RV size and fxn, mild LAE, mild MR, mod TR Continue Aspirin, Plavix, BB, PRATIBHA-I, Statin, Ranexa, Heparin drip stopped. Discussed with Cardiology - poor candidate for transfer for Cath - for medical therapy only. NTG prn for any further chest pain Currently hemodynamically Stable. 2. Constipation - on bowel regimen. Will add Miralax. 3. L shoulder pain with decreased ROM, possible frozen shoulder. For orthopedic eval once stable from perspective of ongoing acute cardiac process. 4.. DM 2 with Hyperglycemia - uncontrolled, A1C 9.1. Will resume Insulin regimen and monitor. Oral anti-hyperglycemics held. 5. Hypothyroidism - Continue Synthroid. 6. GERD - Continue PPI 7. CKD 3 - Stable. 8. HTN - Continue Ramipril and Coreg 9. HLD - LDL 122 - Zetia added to Statin. DVT Px - Heparin drip stopped. Will give SQ Heparin. Visit type - Emergency Visit Emergency Visit: Yes ED Registration Date: 08/20/18 Care time: The patient presented to the Emergency Department on the above date and was hospitalized for further evaluation of their emergent condition. - New Patient This patient is new to me today: No - Critical Care Critical Care patient: No - Discharge Referral Referred to [facility] Med P.C.: No
[2018-08-21] MEDS ORDERED: PT OWN MED DRAWER 7, Y5N ONE (18:28)
[2018-08-21] MEDS: DOCUSATE SODIUM 100 MG CAPSULE (FP) PO SCH (22:56)
[2018-08-21] MEDS: SENNOSIDES 8.6MG TABLET (FP) PO SCH (22:56)
[2018-08-21] MEDS: ATORVASTATIN CA 40 MG TABLET (FP) PO SCH (22:57)
[2018-08-21] MEDS: INSULIN (LEVEMIR) 100 UNITS/ML UNITS SQ SCH (23:12)
[2018-08-22] MEDS: LEVOTHYROXINE NA 88 MCG TABLET (FP) PO SCH (06:01)
[2018-08-22] MEDS: GABAPENTIN 300 MG CAPSULE (FP) PO SCH ×3 (06:02→21:52)
[2018-08-22] MEDS: INSULIN SLIDING SCALE (NOVOLOG) 1 VIAL SQ SCH ×4 (06:02→21:45)
[2018-08-22 06:28] LABS: HEMATOCRIT 33.9 % (32.4-45.2); HEMOGLOBIN 11.2 GM/dL (10.7-15.3); MCH 30.3 pg (25.7-33.7); MEAN CELL VOLUME 91.9 fl (80-96); MEAN PLT VOLUME 9.2 fl (7.5-11.1); PLATELET COUNT 209 K/MM3 (134-434); RBC 3.69 M/mm3 (3.60-5.2); WHITE BLOOD COUNT 7.1 K/mm3 (4.0-10.0)
[2018-08-22] MEDS ORDERED: INSULIN (LEVEMIR) 100 UNITS/ML UNITS SQ ONE (07:04)
[2018-08-22] MEDS ORDERED: INSULIN SLIDING SCALE (NOVOLOG) 1 VIAL SQ ONE (07:04)
[2018-08-22 08:36] LABS: ANION GAP 5 MMOL/L (8-16); BLOOD UREA NITROGEN 32 mg/dL (7-18); CALCIUM 8.3 mg/dL (8.5-10.1); CHLORIDE 94 mmol/L (98-107); CO2 32 mmol/L (21-32); CREATININE 1.2 mg/dL (0.55-1.3); GLUCOSE,RANDOM 102 mg/dL (74-106); MAGNESIUM 2.6 mg/dL (1.8-2.4); PHOSPHOROUS 3.6 mg/dL (2.5-4.9); POTASSIUM 4.9 mmol/L (3.5-5.1); SODIUM 130 mmol/L (136-145)
--- NOTE | 2018-08-22 10:32 | PN ---
Progress Note, Physician History of Present Illness: Denies chest pain or dyspnea, reports left shoulder pain with decreased range of motion about joint and right hip pain. - Current Medication List Current Medications: Active Medications Aspirin (Asa -) 81 mg PO DAILY [facility] Last Admin: 08/21/18 09:21 Dose: 81 mg Atorvastatin Calcium (Lipitor -) 40 mg PO [facility] Last Admin: 08/21/18 22:57 Dose: 40 mg Carvedilol (Coreg -) 12.5 mg PO BID [facility] Last Admin: 08/21/18 22:56 Dose: 12.5 mg Clopidogrel Bisulfate (Plavix -) 75 mg PO DAILY [facility] Last Admin: 08/21/18 09:21 Dose: 75 mg Docusate Sodium (Colace -) 300 mg PO [facility] Last Admin: 08/21/18 22:56 Dose: 300 mg Ezetimibe (Zetia -) 10 mg PO DAILY [facility] Last Admin: 08/21/18 09:21 Dose: 10 mg Furosemide (Lasix -) 20 mg PO DAILY [facility] Last Admin: 08/21/18 09:21 Dose: 20 mg Gabapentin (Neurontin -) 600 mg PO TID [facility] Last Admin: 08/22/18 06:02 Dose: 600 mg Insulin Aspart (Novolog Vial Sliding Scale -) 1 vial SQ [facility]; Protocol Last Admin: 08/22/18 06:02 Dose: Not Given Insulin Detemir (Levemir Vial) 35 units SQ [facility] Last Admin: 08/21/18 23:12 Dose: 35 unit Levothyroxine Sodium (Synthroid -) 88 mcg PO DAILY@0700 [facility] Last Admin: 08/22/18 06:01 Dose: 88 mcg Magnesium Hydroxide (Milk Of Magnesia -) 30 ml PO DAILY PRN PRN Reason: CONSTIPATION Last Admin: 08/21/18 06:27 Dose: 30 ml Nitroglycerin (Nitrostat -) 0.4 mg SL Q5M PRN PRN Reason: FOR CHEST PAIN Last Admin: 08/20/18 06:00 Dose: 0.4 mg Pantoprazole Sodium (Protonix -) 40 mg PO DAILY [facility] Last Admin: 08/21/18 09:21 Dose: 40 mg Polyethylene Glycol (Miralax (For Daily Use) -) 17 gm PO DAILY [facility] Last Admin: 08/21/18 09:22 Dose: 17 gm Ramipril (Altace -) 5 mg PO DAILY [facility] Last Admin: 08/21/18 09:20 Dose: 5 mg Ranolazine (Ranexa -) 500 mg PO BID [facility] Last Admin: 08/21/18 22:56 Dose: 500 mg Senna (Senna -) 2 tab PO HS [facility] Last Admin: 08/21/18 22:56 Dose: 2 tab - Objective Vital Signs: Vital Signs Temperature 98.2 F 08/22/18 06:07 Pulse Rate 57 L 08/22/18 06:07 Respiratory Rate 18 08/22/18 06:07 Blood Pressure 150/62 08/22/18 06:07 O2 Sat by Pulse Oximetry (%) 95 08/21/18 21:00 Constitutional: Yes: No Distress, Calm Neck: Yes: Supple Cardiovascular: Yes: Regular Rate and Rhythm Respiratory: Yes: Regular, Diminished, On Nasal O2 Gastrointestinal: Yes: Normal Bowel Sounds, Soft, Abdomen, Obese Edema: No Labs: CBC, BMP 08/22/18 06:00 08/22/18 07:30 INR, PTT INR 1.18 (0.83-1.09) H 08/21/18 07:00 Problem List - Problems (1) NSTEMI (non-ST elevated myocardial infarction) Code(s): I21.4 - NON-ST ELEVATION (NSTEMI) MYOCARDIAL INFARCTION (2) Hyponatremia Code(s): E87.1 - HYPO-OSMOLALITY AND HYPONATREMIA (3) CAD (coronary artery disease) Code(s): I25.10 - ATHSCL HEART DISEASE OF [place] CORONARY ARTERY W/O ANG PCTRS Qualifiers: Coronary Disease-Associated Artery/Lesion type: [place] artery [place] vs. transplanted heart: [place] heart Associated angina: with unstable angina Qualified Code(s): I25.110 - Atherosclerotic heart disease of [place] coronary artery with unstable angina pectoris (4) CKD (chronic kidney disease) stage 3, GFR 30-59 ml/min Code(s): N18.3 - CHRONIC KIDNEY DISEASE, STAGE 3 (MODERATE) (5) Chronic combined systolic and diastolic heart failure Code(s): I50.42 - CHRONIC COMBINED SYSTOLIC AND DIASTOLIC HRT FAIL (6) Hyperlipidemia Code(s): E78.5 - HYPERLIPIDEMIA, UNSPECIFIED Qualifiers: Hyperlipidemia type: pure hypercholesterolemia Qualified Code(s): E78.00 - Pure hypercholesterolemia, unspecified; E78.0 - Pure hypercholesterolemia (7) Hypertensive cardiomyopathy Code(s): I11.9 - HYPERTENSIVE HEART DISEASE WITHOUT HEART FAILURE; I43 - CARDIOMYOPATHY IN DISEASES CLASSIFIED ELSEWHERE Qualifiers: Heart failure presence: with heart failure Qualified Code(s): I11.0 - Hypertensive heart disease with heart failure; I43 - Cardiomyopathy in diseases classified elsewhere (8) Hypothyroidism Code(s): E03.9 - HYPOTHYROIDISM, UNSPECIFIED Qualifiers: Hypothyroidism type: unspecified Qualified Code(s): E03.9 - Hypothyroidism , unspecified (9) S/P CABG (coronary artery bypass graft) Code(s): Z95.1 - PRESENCE OF AORTOCORONARY BYPASS GRAFT (10) Type 2 diabetes mellitus Code(s): E11.9 - TYPE 2 DIABETES MELLITUS WITHOUT COMPLICATIONS Qualifiers: Diabetes mellitus 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 insulin use: without 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 use Diabetes mellitus complication status: with circulatory complication Diabetes mellitus complication detail: with peripheral angiopathy with gangrene Qualified Code(s ): E11.52 - Type 2 diabetes mellitus with diabetic peripheral angiopathy with gangrene Assessment/Plan 08/19/2018 Echo: Mild-mod decreased LVEF 40-45% with AK in old LAD infarct, normal RV size and fxn, mild LAE, mild MR, mod TR 09/10/2017 Echo: (Old LAD infarct) mild-moderate decrease in LV systolic function, mild ISA, trace MR, severe apical septal and apical lateral hypokinesia 1. Acute on Chronic Systolic/diastolic LV failure 2. CAD h/o [place], CABG, NSTEMI 3. Abdominal discomfort->fecal retention 4. History of cerebrovascular disease 5. History of PAD let toe osteomyelitis post HBO2 6. HTN 7. DM not at goal control 8. Hyperlipidemia not at goal control 9. Hypothyroidism 10. CKD 11. Hyponatremia PLAN: 1. Resume oral diuresis (Lasix 20 qd) with monitor diuretic response, renal fxn and electrolytes 2. Continue Carvedilol 12.5 bid 2. Increase Altace 5 qd and titrate dosage as tolerated and as needed, with close monitoring or renal function 3. Continue Ranexa 500 bid 4. Continue Lipitor 40 qhs and Zetia 10 qd 5. Continue ASA 81 qd, Plavix 75 qd with trops downtrending 6. Consider the addition of Jardiance if not contraindicated (cardiovascular benefits) 7. DVT and GI prophylaxis, bowel regimen, not ideal invasive therapy candidate given multiple co-morbidities 8. D/c planning
[2018-08-22] MEDS: RANOLAZINE E.R. 500 MG TABLET (FP) PO SCH ×2 (11:05→21:49)
[2018-08-22] MEDS: MAGNESIUM HYDROX 2400MG/30ML ORAL SUSPENSION 30 ML CUP PO PRN (11:05)
[2018-08-22] MEDS: FUROSEMIDE 20 MG TABLET (FP) PO SCH (11:05)
[2018-08-22] MEDS: CLOPIDOGREL BISULFATE 75 MG TABLET (FP) PO SCH (11:06)
[2018-08-22] MEDS: PANTOPRAZOLE 40 MG TABLET (FP) PO SCH (11:06)
[2018-08-22] MEDS: CARVEDILOL 12.5 MG TABLET (FP) PO SCH ×2 (11:06→21:52)
[2018-08-22] MEDS: EZETIMIBE 10 MG TABLET (FP) PO SCH (11:06)
[2018-08-22] MEDS: ASPIRIN 81 MG CHEWABLE TABLETS PO SCH (11:06)
[2018-08-22] MEDS: RAMIPRIL 2.5 MG CAPSULE (FP) PO SCH (11:06)
[2018-08-22] MEDS: POLYETHYLENE GLYCOL 3350 119 GM BTL PO SCH (11:36)
[2018-08-22] MEDS: NITROGLYCERIN SUBLINGUAL 1/150 0.4 MG TAB SL PRN ×2 (11:43→11:48)
--- NOTE | 2018-08-22 11:54 | PN ---
Progress Note (short form) - Note Progress Note: No significant change in generalized joint pain and fatigue. No CP or SOB. No acute events overnight. Intake & Output 08/19/18 08/20/18 08/21/18 08/22/18 23:59 23:59 23:59 23:59 Intake Total 560 810 0797 490 Output Total 300 Balance 579 414 2691 490 Weight 180 lb Last Vital Signs Temp Pulse Resp BP Pulse Ox 98.2 F 57 L 18 150/62 95 08/22/18 06:07 08/22/18 06:07 08/22/18 06:07 08/22/18 06:07 08/21/18 21:00 Active Medications Aspirin (Asa -) 81 mg PO DAILY [facility] Last Admin: 08/22/18 11:06 Dose: 81 mg Atorvastatin Calcium (Lipitor -) 40 mg PO [facility] Last Admin: 08/21/18 22:57 Dose: 40 mg Carvedilol (Coreg -) 12.5 mg PO BID [facility] Last Admin: 08/22/18 11:06 Dose: 12.5 mg Clopidogrel Bisulfate (Plavix -) 75 mg PO DAILY [facility] Last Admin: 08/22/18 11:06 Dose: 75 mg Docusate Sodium (Colace -) 300 mg PO [facility] Last Admin: 08/21/18 22:56 Dose: 300 mg Ezetimibe (Zetia -) 10 mg PO DAILY [facility] Last Admin: 08/22/18 11:06 Dose: 10 mg Furosemide (Lasix -) 20 mg PO DAILY [facility] Last Admin: 08/22/18 11:05 Dose: 20 mg Gabapentin (Neurontin -) 600 mg PO TID [facility] Last Admin: 08/22/18 06:02 Dose: 600 mg Insulin Aspart (Novolog Vial Sliding Scale -) 1 vial SQ [facility]; Protocol Last Admin: 08/22/18 11:19 Dose: 2 unit Insulin Detemir (Levemir Vial) 35 units SQ [facility] Last Admin: 08/21/18 23:12 Dose: 35 unit Levothyroxine Sodium (Synthroid -) 88 mcg PO DAILY@0700 [facility] Last Admin: 08/22/18 06:01 Dose: 88 mcg Magnesium Hydroxide (Milk Of Magnesia -) 30 ml PO DAILY PRN PRN Reason: CONSTIPATION Last Admin: 08/21/18 06:27 Dose: 30 ml Nitroglycerin (Nitrostat -) 0.4 mg SL Q5M PRN PRN Reason: FOR CHEST PAIN Last Admin: 08/22/18 11:43 Dose: 0.4 mg Pantoprazole Sodium (Protonix -) 40 mg PO DAILY [facility] Last Admin: 08/22/18 11:06 Dose: 40 mg Polyethylene Glycol (Miralax (For Daily Use) -) 17 gm PO DAILY [facility] Last Admin: 08/22/18 11:36 Dose: 17 gm Ramipril (Altace -) 5 mg PO DAILY [facility] Last Admin: 08/22/18 11:06 Dose: 5 mg Ranolazine (Ranexa -) 500 mg PO BID [facility] Last Admin: 08/22/18 11:05 Dose: 500 mg Senna (Senna -) 2 tab PO HS [facility] Last Admin: 08/21/18 22:56 Dose: 2 tab Constitutional: Yes: No Distress Neck: Yes: Supple Cardiovascular: Yes: Regular Rate and Rhythm Respiratory: Yes: Regular, On Nasal O2 Gastrointestinal: Yes: Normal Bowel Sounds, Soft, Abdomen, Obese Musculoskeletal: Yes: Joint Stiffness Edema: No Labs: Laboratory Results - last 24 hr 08/21/18 08/21/18 08/22/18 16:56 22:55 06:00 WBC 7.1 RBC 3.69 Hgb 11.2 Hct 33.9 MCV 91.9 MCH 30.3 MCHC 33.0 RDW 14.0 Plt Count 209 MPV 9.2 PTT (Actin FS) Sodium Potassium Chloride Carbon Dioxide Anion Gap BUN Creatinine Creat Clearance w eGFR POC Glucometer 265 256 Random Glucose Calcium Phosphorus Magnesium 08/22/18 08/22/18 08/22/18 06:00 06:01 07:30 WBC RBC Hgb Hct MCV MCH MCHC RDW Plt Count MPV PTT (Actin FS) 32.6 Sodium 130 L Potassium 4.9 Chloride 94 L Carbon Dioxide 32 Anion Gap 5 L BUN 32 H Creatinine 1.2 Creat Clearance w eGFR 42.90 POC Glucometer 115 Random Glucose 102 Calcium 8.3 L Phosphorus 3.6 Magnesium 2.6 H 08/22/18 11:11 WBC RBC Hgb Hct MCV MCH MCHC RDW Plt Count MPV PTT (Actin FS) Sodium Potassium Chloride Carbon Dioxide Anion Gap BUN Creatinine Creat Clearance w eGFR POC Glucometer 198 Random Glucose Calcium Phosphorus Magnesium Problem List - Problems (1) Generalized pain Code(s): R52 - PAIN, UNSPECIFIED (2) CHF exacerbation Code(s): I50.9 - HEART FAILURE, UNSPECIFIED (3) NSTEMI (non-ST elevated myocardial infarction) Code(s): I21.4 - NON-ST ELEVATION (NSTEMI) MYOCARDIAL INFARCTION (4) Toe ulcer Code(s): L97.509 - NON-PRESSURE CHRONIC ULCER OTH PRT UNSP FOOT W UNSP SEVERITY (5) CAD (coronary artery disease) Code(s): I25.10 - ATHSCL HEART DISEASE OF [place] CORONARY ARTERY W/O ANG PCTRS Qualifiers: Coronary Disease-Associated Artery/Lesion type: [place] artery [place] vs. transplanted heart: [place] heart Associated angina: with unstable angina Qualified Code(s): I25.110 - Atherosclerotic heart disease of [place] coronary artery with unstable angina pectoris (6) Chronic combined systolic and diastolic heart failure Code(s): I50.42 - CHRONIC COMBINED SYSTOLIC AND DIASTOLIC HRT FAIL (7) Diabetic neuropathy Code(s): E11.40 - TYPE 2 DIABETES MELLITUS WITH DIABETIC NEUROPATHY, UNSP (8) GERD (gastroesophageal reflux disease) Code(s): K21.9 - GASTRO-ESOPHAGEAL REFLUX DISEASE WITHOUT ESOPHAGITIS (9) Hypothyroidism Code(s): E03.9 - HYPOTHYROIDISM, UNSPECIFIED Qualifiers: Hypothyroidism type: unspecified Qualified Code(s): E03.9 - Hypothyroidism , unspecified (10) S/P CABG (coronary artery bypass graft) Code(s): Z95.1 - PRESENCE OF AORTOCORONARY BYPASS GRAFT IMP DYSPNEA ACUTE ON CHRONIC CHF ASHD S/P MA ,CABG,NSTEMI MILD- MODERATE LV SYSTOLIC DYSFUNCTION + TROPONIN IDDM CHRONIC PAIN LEFT TOE OSTEO NEUROPATHY HYPOTHYROID HLD HAROLDO PLAN LASIX O2 NEEDED ASA / PLAVIX DAILY WT ANALGESICS MONITOR LYTES, RENAL FUNCTION D/C PLANNING DR ALVA
--- NOTE | 2018-08-22 14:36 | PN ---
Physical Exam: SUBJECTIVE: Patient seen and examined at bedside. C/o chest tightness, dyspnea, diffuse body pain most focally at left shoulder and right hip. OBJECTIVE: Vital Signs Period Temp Pulse Resp BP Sys/Ibarra Pulse Ox Last 24 Hr 97.8 F-99.2 F 53-62 18-20 129-166/55-81 95-96 GENERAL: A&Ox3, vocalized significant distress HEAD: NC/AT EYES: PERRLA, EOMI EARS, NOSE, THROAT: Ears normal, nares patent, oropharynx clear without exudates. Moist mucous membranes. NECK: Normal range of motion, supple without lymphadenopathy, JVD, or masses. LUNGS: CTA b/l HEART: RRR no m/r/g ABDOMEN: Soft, moderately distended, mild diffuse tenderness UPPER EXTREMITIES: 2+ pulses, warm, well-perfused. No cyanosis. No clubbing. No peripheral edema. LOWER EXTREMITIES: 2+ pulses, warm, well-perfused. No calf tenderness. No peripheral edema. Chronic tenderness of L great toe. 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 PSYCHIATRIC: Highly anxious SKIN: Warm, dry, normal turgor, no rashes or lesions noted Laboratory Results - last 24 hr 08/21/18 08/21/18 08/22/18 16:56 22:55 06:00 WBC 7.1 RBC 3.69 Hgb 11.2 Hct 33.9 MCV 91.9 MCH 30.3 MCHC 33.0 RDW 14.0 Plt Count 209 MPV 9.2 PTT (Actin FS) Sodium Potassium Chloride Carbon Dioxide Anion Gap BUN Creatinine Creat Clearance w eGFR POC Glucometer 265 256 Random Glucose Calcium Phosphorus Magnesium 08/22/18 08/22/18 08/22/18 06:00 06:01 07:30 WBC RBC Hgb Hct MCV MCH MCHC RDW Plt Count MPV PTT (Actin FS) 32.6 Sodium 130 L Potassium 4.9 Chloride 94 L Carbon Dioxide 32 Anion Gap 5 L BUN 32 H Creatinine 1.2 Creat Clearance w eGFR 42.90 POC Glucometer 115 Random Glucose 102 Calcium 8.3 L Phosphorus 3.6 Magnesium 2.6 H 08/22/18 11:11 WBC RBC Hgb Hct MCV MCH MCHC RDW Plt Count MPV PTT (Actin FS) Sodium Potassium Chloride Carbon Dioxide Anion Gap BUN Creatinine Creat Clearance w eGFR POC Glucometer 198 Random Glucose Calcium Phosphorus Magnesium Active Medications Generic Name Dose Route Start Last Admin Trade Name Freq PRN Reason Stop Dose Admin Aspirin 81 mg 08/19/18 10:00 08/22/18 11:06 Asa - PO 81 mg DAILY [facility] Administration Atorvastatin Calcium 40 mg 08/18/18 22:00 08/21/18 22:57 Lipitor - PO 40 mg HS [facility] Administration Carvedilol 12.5 mg 08/18/18 22:00 08/22/18 11:06 Coreg - PO 12.5 mg BID [facility] Administration Clopidogrel Bisulfate 75 mg 08/19/18 10:45 08/22/18 11:06 Plavix - PO 75 mg DAILY [facility] Administration Docusate Sodium 300 mg 08/18/18 22:00 08/21/18 22:56 Colace - PO 300 mg HS [facility] Administration Ezetimibe 10 mg 08/20/18 11:45 08/22/18 11:06 Zetia - PO 10 mg DAILY [facility] Administration Furosemide 20 mg 08/21/18 10:00 08/22/18 11:05 Lasix - PO 20 mg DAILY [facility] Administration Gabapentin 600 mg 08/18/18 22:00 08/22/18 06:02 Neurontin - PO 600 mg TID [facility] Administration Insulin Aspart 1 vial 08/18/18 22:00 08/22/18 11:19 Novolog Vial Sliding Scale - SQ 2 unit ACHS [facility] Administration Protocol Insulin Detemir 35 units 08/18/18 22:00 08/21/18 23:12 Levemir Vial SQ 35 unit HS [facility] Administration Levothyroxine Sodium 88 mcg 08/19/18 07:00 08/22/18 06:01 Synthroid - PO 88 mcg DAILY@0700 [facility] Administration Magnesium Hydroxide 30 ml 08/18/18 18:30 08/21/18 06:27 Milk Of Magnesia - PO 30 ml DAILY PRN Administration CONSTIPATION Nitroglycerin 0.4 mg 08/19/18 11:16 08/22/18 11:48 Nitrostat - SL 0.4 mg Q5M PRN Administration FOR CHEST PAIN Pantoprazole Sodium 40 mg 08/19/18 10:00 08/22/18 11:06 Protonix - PO 40 mg DAILY [facility] Administration Polyethylene Glycol 17 gm 08/18/18 18:30 08/22/18 11:36 Miralax (For Daily Use) - PO 17 gm DAILY [facility] Administration Ramipril 5 mg 08/20/18 11:46 08/22/18 11:06 Altace - PO 5 mg DAILY [facility] Administration Ranolazine 500 mg 08/18/18 22:00 08/22/18 11:05 Ranexa - PO 500 mg BID [facility] Administration Senna 2 tab 08/18/18 22:00 08/21/18 22:56 Senna - PO 2 tab HS [facility] Administration ASSESSMENT/PLAN: 83 y/o F w/ PMHx HTN, IDDM, HLD, CAD, CHF, GERD, neuropathy, chronic diffuse pain, hypothyroidism, chronic L great toe osteomyelitis p/w chief complaint of overall chronic body pain worsening over past three days. Presented hyperglycemic w/ CT findings of b/l pleural effusions and colonic retention, and troponemia. #NSTEMI -serial troponins peaked at 3.04, now downtrending -no acute ST changes on serial EKGs -cardiology following -cont ASA/Plavix, Ranexa, Lipitor, Ezetimibe -cont carvedilol, increased ramipril to 5 -NTG SL PRN for anginal pain -CXR showing congestion -echo showing 40-45% EF, anteroseptal akinesis, mild-moderate reduction of LV systolic function, multiple valvular lesions #CHF exacerbation -echo showing 40-45% EF, anteroseptal akinesis, mild-moderate reduction of LV systolic function, multiple valvular lesions -congestion/pleural effusions b/l on CT a/p -dyspnea ongoing -pulmonology following -cont ASA/Plavix, Ranexa, Lipitor, Ezetimibe -cont carvedilol, increased ramipril to 5 -PO Lasix daily -qualifies for home O2 per pre-/post- #constipation -bowel regimen: senna, colace, Mg(OH)2, miralax -fleet enemas PRN #DM -Levemir 35U HS -BGM, SSI #hypothyroid -home LTX #FEN -no IVF d/t possible overload -monitor and replete electrolytes -diabetic diet #PPx -DVT: heparin sq -GI: home omeprazole #code -full #dispo -telemetry -evaluated PT, will require DC to SNF Visit type - Emergency Visit Emergency Visit: No - New Patient This patient is new to me today: No - Critical Care Critical Care patient: No
[2018-08-22] MEDS: HEPARIN NA (PORCINE) 5,000 UNITS/ML 1ML VIAL SQ SCH ×2 (15:28→21:45)
--- NOTE | 2018-08-22 18:38 | PN ---
Teaching Attending Note Name of Resident: Juan C Robertson ATTENDING PHYSICIAN STATEMENT I saw and evaluated the patient. I reviewed the resident's note and discussed the case with the resident. I agree with the resident's findings and plan as documented. SUBJECTIVE: Still complains of generalized pain, Left shoulder, R hip, but also legs and hands. She denies any further chest heaviness/tightness - no palps/ diaphoresis/lightheadedness. No cough/sputum/hemoptysis/fever/chills/nausea/ vomiting/diarrhea/dysuria/hematuria. Complains of constipation. OBJECTIVE: Afebrile, Hemodynamically Stable. Mild dyspnea Last Vital Signs Temp Pulse Resp BP Pulse Ox 98.6 F 58 L 20 166/80 96 08/22/18 11:54 08/22/18 13:06 08/22/18 11:54 08/22/18 11:54 08/22/18 13:06 Heart - S1, S2, RRR. Midline Sternotomy scar Lungs - decreased air entry bibasally Abdomen - Soft, mild generalized tenderness. Bowel Sounds normal. Extremities - no edema, no calf tenderness MS - decreased ROM about L shoulder - no joint swelling/erythema/tenderness Laboratory Results - last 24 hr 08/21/18 08/22/18 08/22/18 22:55 06:00 06:00 WBC 7.1 RBC 3.69 Hgb 11.2 Hct 33.9 MCV 91.9 MCH 30.3 MCHC 33.0 RDW 14.0 Plt Count 209 MPV 9.2 PTT (Actin FS) 32.6 Sodium Potassium Chloride Carbon Dioxide Anion Gap BUN Creatinine Creat Clearance w eGFR POC Glucometer 256 Random Glucose Calcium Phosphorus Magnesium 08/22/18 08/22/18 08/22/18 06:01 07:30 11:11 WBC RBC Hgb Hct MCV MCH MCHC RDW Plt Count MPV PTT (Actin FS) Sodium 130 L Potassium 4.9 Chloride 94 L Carbon Dioxide 32 Anion Gap 5 L BUN 32 H Creatinine 1.2 Creat Clearance w eGFR 42.90 POC Glucometer 115 198 Random Glucose 102 Calcium 8.3 L Phosphorus 3.6 Magnesium 2.6 H 08/22/18 17:19 WBC RBC Hgb Hct MCV MCH MCHC RDW Plt Count MPV PTT (Actin FS) Sodium Potassium Chloride Carbon Dioxide Anion Gap BUN Creatinine Creat Clearance w eGFR POC Glucometer 169 Random Glucose Calcium Phosphorus Magnesium Current Medications Generic Name Dose Route Start Last Admin Trade Name Fadyq PRN Reason Stop Dose Admin Aspirin 81 mg 08/19/18 10:00 08/22/18 11:06 Asa - PO 81 mg DAILY [facility] Administration Atorvastatin Calcium 40 mg 08/18/18 22:00 08/21/18 22:57 Lipitor - PO 40 mg HS [facility] Administration Carvedilol 12.5 mg 08/18/18 22:00 08/22/18 11:06 Coreg - PO 12.5 mg BID [facility] Administration Clopidogrel Bisulfate 75 mg 08/19/18 10:45 08/22/18 11:06 Plavix - PO 75 mg DAILY REPLACED BY [facility] Administration Docusate Sodium 300 mg 08/18/18 22:00 08/21/18 22:56 Colace - PO 300 mg HS REPLACED BY [facility] Administration Ezetimibe 10 mg 08/20/18 11:45 08/22/18 11:06 Zetia - PO 10 mg DAILY [facility] Administration Furosemide 20 mg 08/21/18 10:00 08/22/18 11:05 Lasix - PO 20 mg DAILY [facility] Administration Gabapentin 600 mg 08/18/18 22:00 08/22/18 15:28 Neurontin - PO 600 mg TID REPLACED BY [facility] Administration Heparin Sodium (Porcine) 5,000 unit 08/22/18 14:30 08/22/18 15:28 Heparin - SQ 5,000 unit TID REPLACED BY [facility] Administration Insulin Aspart 1 vial 08/18/18 22:00 08/22/18 17:42 Novolog Vial Sliding Scale - SQ 2 unit ACHS REPLACED BY [facility] Administration Protocol Insulin Detemir 35 units 08/18/18 22:00 08/21/18 23:12 Levemir Vial SQ 35 unit HS REPLACED BY [facility] Administration Levothyroxine Sodium 88 mcg 08/19/18 07:00 08/22/18 06:01 Synthroid - PO 88 mcg DAILY@0700 REPLACED BY [facility] Administration Magnesium Hydroxide 30 ml 08/18/18 18:30 08/21/18 06:27 Milk Of Magnesia - PO 30 ml DAILY PRN Administration CONSTIPATION Nitroglycerin 0.4 mg 08/19/18 11:16 08/22/18 11:48 Nitrostat - SL 0.4 mg Q5M PRN Administration FOR CHEST PAIN Pantoprazole Sodium 40 mg 08/19/18 10:00 08/22/18 11:06 Protonix - PO 40 mg DAILY [facility] Administration Polyethylene Glycol 17 gm 08/18/18 18:30 08/22/18 11:36 Miralax (For Daily Use) - PO 17 gm DAILY [facility] Administration Ramipril 5 mg 08/20/18 11:46 08/22/18 11:06 Altace - PO 5 mg DAILY [facility] Administration Ranolazine 500 mg 08/18/18 22:00 08/22/18 11:05 Ranexa - PO 500 mg BID [facility] Administration Senna 2 tab 08/18/18 22:00 08/21/18 22:56 Senna - PO 2 tab HS [facility] Administration ASSESSMENT AND PLAN: 83 year old female with history of HTN, HLD, CAD s/p CABG, GERD, CKD 3, Hx CVA, DM 2 with neuropathy, chronic diffuse pain, hypothyroidism, chronic L great toe osteomyelitis (treated with IV Abx/Hyperbaric Therapy) presents with complaints of generalized pain, mostly in Left shoulder and R hip, found to have hyperglycemia with intermittent chest pain and some SOB but no cough/sputum/ hemoptysis/fever. CT A/P showed interval development since 02/25/18 of pulmonary vascular congestion and b/l effusions as well as moderate colonic fecal retention. Left shoulder XR - DJD R Hip XR - no acute findings. 1. Acute NSTEMI in setting of bilateral effusions and acute on chronic systolic CHF exacerbation Hx CAD s/p [place] s/p CABG TropI max 3.04 ECG - no acute changes. Bilateral effusions on CT Chest BNP 5285 Received IV Lasix - now transitioned to oral Lasix. 08/19/2018 Echo: Mild-mod decreased LVEF 40-45%, akinesis of midanterior wall, apical septum, apex proper; normal RV size and fxn, mild LAE, mild MR, mod TR Continue Aspirin, Plavix, BB, PRATIBHA-I, Statin, Ranexa, Heparin drip stopped. Discussed with Cardiology - poor candidate for Cath - for medical therapy only. NTG prn for any further chest pain Currently hemodynamically Stable. Mild dyspnea - will order CXR to ensure no worsening congestion. 2. Constipation - on bowel regimen including Senna, Docusate, MOM, Miralax. 3. L shoulder pain with decreased ROM, possible frozen shoulder. For orthopedic eval once stable from perspective of ongoing acute cardiac process. 4.. DM 2 with Hyperglycemia - uncontrolled, A1C 9.1. Resumed on Insulin regimen. Oral anti-hyperglycemics held. 5. Hypothyroidism - Continue Synthroid. 6. GERD - Continue PPI 7. CKD 3 - Stable. 8. HTN - Continue Ramipril and Coreg 9. HLD - LDL 122 - Zetia added to Statin. DVT Px - SQ Heparin. Dispo - awaiting authorization for SNF.
[2018-08-22] MEDS: DOCUSATE SODIUM 100 MG CAPSULE (FP) PO SCH (21:45)
[2018-08-22] MEDS: INSULIN (LEVEMIR) 100 UNITS/ML UNITS SQ SCH (21:52)
[2018-08-22] MEDS: ATORVASTATIN CA 40 MG TABLET (FP) PO SCH (21:52)
[2018-08-22] MEDS: SENNOSIDES 8.6MG TABLET (FP) PO SCH (21:53)
[2018-08-23] MEDS ORDERED: ONDANSETRON 4 MG/2 ML VIAL IVPUSH ONE (04:12)
[2018-08-23] MEDS: GABAPENTIN 300 MG CAPSULE (FP) PO SCH ×3 (06:06→22:52)
[2018-08-23] MEDS: HEPARIN NA (PORCINE) 5,000 UNITS/ML 1ML VIAL SQ SCH ×3 (06:06→21:48)
[2018-08-23] MEDS: INSULIN SLIDING SCALE (NOVOLOG) 1 VIAL SQ SCH ×4 (06:06→21:45)
[2018-08-23] MEDS: LEVOTHYROXINE NA 88 MCG TABLET (FP) PO SCH (06:07)
[2018-08-23 07:18] LABS: BASO % 0.5 % (0-2.0); EOS % 0.1 % (0-4.5); HEMATOCRIT 34.5 % (32.4-45.2); HEMOGLOBIN 11.5 GM/dL (10.7-15.3); LYMPH % 19.6 % (8-40); MCH 30.5 pg (25.7-33.7); MCHC 33.3 g/dl (32.0-36.0); MEAN CELL VOLUME 91.4 fl (80-96); MEAN PLT VOLUME 8.8 fl (7.5-11.1); MONO % 2.9 % (3.8-10.2); NEUT % 76.9 % (42.8-82.8); PLATELET COUNT 222 K/MM3 (134-434); RBC 3.78 M/mm3 (3.60-5.2); WHITE BLOOD COUNT 6.9 K/mm3 (4.0-10.0)
[2018-08-23] MEDS ORDERED: SODIUM PHOSPHATE/NA BIPHOS 133 ML ENEMA PR ONE (08:20)
[2018-08-23 08:27] LABS: ANION GAP 7 MMOL/L (8-16); BLOOD UREA NITROGEN 36 mg/dL (7-18); CHLORIDE 91 mmol/L (98-107); CO2 26 mmol/L (21-32); CREATININE 1.1 mg/dL (0.55-1.3); GLUCOSE,RANDOM 217 mg/dL (74-106); MAGNESIUM 2.8 mg/dL (1.8-2.4); PHOSPHOROUS 4.4 mg/dL (2.5-4.9); POTASSIUM 5.4 mmol/L (3.5-5.1); SODIUM 124 mmol/L (136-145)
[2018-08-23] MEDS ORDERED: INSULIN REGULAR HUMAN 100 UNITS/ML *VIAL IVPUSH ONE (08:36)
[2018-08-23] MEDS ORDERED: DEXTROSE 50%-WATER - 25 GM/50 ML VIAL IVPUSH ONE ×2 (08:37→09:30)
[2018-08-23] MEDS ORDERED: CALCIUM GLUCONATE 10% - 1,000 MG/10 ML VIAL IVPB ONE (08:38)
[2018-08-23] MEDS ORDERED: ALBUTEROL SO4 0.083% IH SOL 2.5 MG/3 ML VIAL.NEB. NEB ONE (08:38)
[2018-08-23] MEDS ORDERED: PT OWN MED DRAWER 7, Y5N ONE ×3 (09:17→09:50)
[2018-08-23] MEDS ORDERED: DEXTROSE 50%-WATER 25 GM/50 ML DISP.SYRIN ONE (09:27)
[2018-08-23 09:40] LABS: OSMOLALITY,SERUM 288 mosm/kg (278-305)
[2018-08-23 10:31] LABS: ANION GAP 6 MMOL/L (8-16); BLOOD UREA NITROGEN 36 mg/dL (7-18); CHLORIDE 90 mmol/L (98-107); CO2 28 mmol/L (21-32); CREATININE 1.1 mg/dL (0.55-1.3); GLUCOSE,RANDOM 275 mg/dL (74-106); POTASSIUM 5.5 mmol/L (3.5-5.1); SODIUM 124 mmol/L (136-145)
--- NOTE | 2018-08-23 11:08 | PN ---
Progress Note, Physician History of Present Illness: pulmonary alert,comfortable,-resp distress - Current Medication List Current Medications: Active Medications Aspirin (Asa -) 81 mg PO DAILY [facility] Last Admin: 08/22/18 11:06 Dose: 81 mg Atorvastatin Calcium (Lipitor -) 40 mg PO [facility] Last Admin: 08/22/18 21:52 Dose: Not Given Carvedilol (Coreg -) 12.5 mg PO BID [facility] Last Admin: 08/22/18 21:52 Dose: Not Given Clopidogrel Bisulfate (Plavix -) 75 mg PO DAILY [facility] Last Admin: 08/22/18 11:06 Dose: 75 mg Docusate Sodium (Colace -) 300 mg PO [facility] Last Admin: 08/22/18 21:45 Dose: Not Given Ezetimibe (Zetia -) 10 mg PO DAILY [facility] Last Admin: 08/22/18 11:06 Dose: 10 mg Gabapentin (Neurontin -) 600 mg PO TID [facility] Last Admin: 08/23/18 06:06 Dose: Not Given Heparin Sodium (Porcine) (Heparin -) 5,000 unit SQ TID [facility] Last Admin: 08/23/18 06:06 Dose: Not Given Insulin Aspart (Novolog Vial Sliding Scale -) 1 vial SQ [facility]; Protocol Last Admin: 08/23/18 06:06 Dose: Not Given Insulin Detemir (Levemir Vial) 35 units SQ [facility] Last Admin: 08/22/18 21:52 Dose: Not Given Levothyroxine Sodium (Synthroid -) 88 mcg PO DAILY@0700 [facility] Last Admin: 08/23/18 06:07 Dose: Not Given Magnesium Hydroxide (Milk Of Magnesia -) 30 ml PO DAILY PRN PRN Reason: CONSTIPATION Last Admin: 08/21/18 06:27 Dose: 30 ml Nitroglycerin (Nitrostat -) 0.4 mg SL Q5M PRN PRN Reason: FOR CHEST PAIN Last Admin: 08/22/18 11:48 Dose: 0.4 mg Pantoprazole Sodium (Protonix -) 40 mg PO DAILY [facility] Last Admin: 08/22/18 11:06 Dose: 40 mg Polyethylene Glycol (Miralax (For Daily Use) -) 17 gm PO DAILY [facility] Last Admin: 08/22/18 11:36 Dose: 17 gm Ranolazine (Ranexa -) 500 mg PO BID [facility] Last Admin: 08/22/18 21:49 Dose: 500 mg Senna (Senna -) 2 tab PO HS [facility] Last Admin: 08/22/18 21:53 Dose: Not Given - Objective Vital Signs: Vital Signs Temperature 98.5 F 08/22/18 20:04 Pulse Rate 53 L 08/22/18 20:04 Respiratory Rate 20 08/22/18 20:04 Blood Pressure 144/96 08/22/18 20:04 O2 Sat by Pulse Oximetry (%) 93 L 08/22/18 20:04 Constitutional: Yes: Well Nourished, Calm Eyes: Yes: WNL HENT: Yes: WNL Neck: Yes: WNL Cardiovascular: Yes: Regular Rate and Rhythm, S1, S2 Respiratory: Yes: Diminished (poor inspiratory effort) Gastrointestinal: Yes: Normal Bowel Sounds, Soft Extremities: Yes: WNL Edema: No Labs: CBC, BMP 08/23/18 07:00 08/23/18 09:40 INR, PTT INR 1.18 (0.83-1.09) H 08/21/18 07:00 - ....Imaging Chest X-ray: Report Reviewed, Image Reviewed (LESS CONGESTION) Problem List - Problems (1) Generalized pain Code(s): R52 - PAIN, UNSPECIFIED (2) CHF exacerbation Code(s): I50.9 - HEART FAILURE, UNSPECIFIED (3) NSTEMI (non-ST elevated myocardial infarction) Code(s): I21.4 - NON-ST ELEVATION (NSTEMI) MYOCARDIAL INFARCTION (4) Toe ulcer Code(s): L97.509 - NON-PRESSURE CHRONIC ULCER OTH PRT UNSP FOOT W UNSP SEVERITY (5) CAD (coronary artery disease) Code(s): I25.10 - ATHSCL HEART DISEASE OF [place] CORONARY ARTERY W/O ANG PCTRS Qualifiers: Coronary Disease-Associated Artery/Lesion type: [place] artery [place] vs. transplanted heart: [place] heart Associated angina: with unstable angina Qualified Code(s): I25.110 - Atherosclerotic heart disease of [place] coronary artery with unstable angina pectoris (6) Chronic combined systolic and diastolic heart failure Code(s): I50.42 - CHRONIC COMBINED SYSTOLIC AND DIASTOLIC HRT FAIL (7) Diabetic neuropathy Code(s): E11.40 - TYPE 2 DIABETES MELLITUS WITH DIABETIC NEUROPATHY, UNSP (8) GERD (gastroesophageal reflux disease) Code(s): K21.9 - GASTRO-ESOPHAGEAL REFLUX DISEASE WITHOUT ESOPHAGITIS (9) Hypothyroidism Code(s): E03.9 - HYPOTHYROIDISM, UNSPECIFIED Qualifiers: Hypothyroidism type: unspecified Qualified Code(s): E03.9 - Hypothyroidism , unspecified (10) S/P CABG (coronary artery bypass graft) Code(s): Z95.1 - PRESENCE OF AORTOCORONARY BYPASS GRAFT Assessment/Plan IMP DYSPNEA improved ACUTE ON CHRONIC CHF improved ASHD S/P SC ,CABG,NSTEMI MILD- MODERATE LV SYSTOLIC DYSFUNCTION + TROPONIN IDDM CHRONIC PAIN LEFT TOE OSTEO NEUROPATHY HYPOTHYROID HLD HAROLDO PLAN LASIX PER CARDIOLOGY O2 PLAVIX NITRATES DAILY WT ANALGESICS MONITOR LYTES,RENAL FUNCTION DR BABB Problem List - Problems (1) Generalized pain Code(s): R52 - PAIN, UNSPECIFIED (2) CHF exacerbation Code(s): I50.9 - HEART FAILURE, UNSPECIFIED (3) NSTEMI (non-ST elevated myocardial infarction) Code(s): I21.4 - NON-ST ELEVATION (NSTEMI) MYOCARDIAL INFARCTION (4) Toe ulcer Code(s): L97.509 - NON-PRESSURE CHRONIC ULCER OTH PRT UNSP FOOT W UNSP SEVERITY (5) CAD (coronary artery disease) Code(s): I25.10 - ATHSCL HEART DISEASE OF [place] CORONARY ARTERY W/O ANG PCTRS Qualifiers: Coronary Disease-Associated Artery/Lesion type: [place] artery [place] vs. transplanted heart: [place] heart Associated angina: with unstable angina Qualified Code(s): I25.110 - Atherosclerotic heart disease of [place] coronary artery with unstable angina pectoris (6) Chronic combined systolic and diastolic heart failure Code(s): I50.42 - CHRONIC COMBINED SYSTOLIC AND DIASTOLIC HRT FAIL (7) Diabetic neuropathy Code(s): E11.40 - TYPE 2 DIABETES MELLITUS WITH DIABETIC NEUROPATHY, UNSP (8) GERD (gastroesophageal reflux disease) Code(s): K21.9 - GASTRO-ESOPHAGEAL REFLUX DISEASE WITHOUT ESOPHAGITIS (9) Hypothyroidism Code(s): E03.9 - HYPOTHYROIDISM, UNSPECIFIED Qualifiers: Hypothyroidism type: unspecified Qualified Code(s): E03.9 - Hypothyroidism , unspecified (10) S/P CABG (coronary artery bypass graft) Code(s): Z95.1 - PRESENCE OF AORTOCORONARY BYPASS GRAFT
[2018-08-23] MEDS ORDERED: oxyCODONE HCL 5 MG TABLET PO ONE (11:09)
[2018-08-23] MEDS ORDERED: LORazepam 2 MG/ML SDV VIAL IVPUSH ONE (11:10)
[2018-08-23] MEDS: PANTOPRAZOLE 40 MG TABLET (FP) PO SCH (11:20)
[2018-08-23] MEDS: ASPIRIN 81 MG CHEWABLE TABLETS PO SCH (11:20)
[2018-08-23] MEDS: RANOLAZINE E.R. 500 MG TABLET (FP) PO SCH ×2 (11:20→22:52)
[2018-08-23] MEDS: EZETIMIBE 10 MG TABLET (FP) PO SCH (11:20)
[2018-08-23] MEDS: CLOPIDOGREL BISULFATE 75 MG TABLET (FP) PO SCH (11:21)
[2018-08-23] MEDS: CARVEDILOL 12.5 MG TABLET (FP) PO SCH ×2 (11:21→22:53)
[2018-08-23] MEDS: POLYETHYLENE GLYCOL 3350 119 GM BTL PO SCH (11:26)
--- NOTE | 2018-08-23 13:27 | CONSULT ---
Consultation: CONSULT REQUEST: Nephrology HISTORY OF PRESENT ILLNESS: Patient currently sedated and is nonverbal. 83 year old female with history of HTN, HLD, CAD s/p CABG, GERD, CKD 3, Hx CVA, DM 2 with neuropathy, chronic diffuse pain, hypothyroidism, chronic L great toe osteomyelitis (treated with IV Abx/Hyperbaric Therapy) presented with complaints of generalized pain, mostly in Left shoulder and R hip, and was found to have hyperglycemia. She also complained of SOB but no cough, sputum, fevers. She was found to have and is being treated for an Acute NSTEMI in setting of bilateral effusions and acute on chronic systolic CHF exacerbation. She is not a candidate for catheterization and medical management is recommended per cardio. CT of chest revealed bilateral effusions. She received IV Lasix and now transitioned to oral Lasix. She is currently hemodynamically stable. REVIEW OF SYSTEMS: Unable to obtain PHYSICAL EXAMINATION Vital Signs - 24 hr 08/22/18 08/22/18 17:00 20:04 Temperature 98.2 F 98.5 F Pulse Rate 54 L 53 L Respiratory 18 20 Rate Blood Pressure 143/63 144/96 O2 Sat by Pulse 93 L Oximetry (%) GENERAL: sleeping EYES: Pupils equal, round and reactive to light, extraocular movements intact, sclera anicteric EARS, NOSE, THROAT: Ears normal, nares patent, oropharynx clear without exudates. Moist mucous membranes. NECK: no JVD, or masses. LUNGS: decreased breath sounds b/l HEART: RRR, S1, S2, Midline Sternotomy scar ABDOMEN: Soft, no grimacing with palpation. LOWER EXTREMITIES: 2+ pulses, No peripheral edema. Laboratory Results - last 24 hr 08/22/18 08/22/18 08/23/18 17:19 20:48 07:00 WBC RBC Hgb Hct MCV MCH MCHC RDW Plt Count MPV Absolute Neuts (auto) Neutrophils % Lymphocytes % Monocytes % Eosinophils % Basophils % Nucleated RBC % PTT (Actin FS) 29.9 Sodium Potassium Chloride Carbon Dioxide Anion Gap BUN Creatinine Creat Clearance w eGFR POC Glucometer 169 120 Random Glucose Serum Osmolality Calcium Phosphorus Magnesium 08/23/18 08/23/18 08/23/18 07:00 07:00 08:46 WBC 6.9 RBC 3.78 Hgb 11.5 Hct 34.5 MCV 91.4 MCH 30.5 MCHC 33.3 RDW 14.0 Plt Count 222 MPV 8.8 Absolute Neuts (auto) 5.3 Neutrophils % 76.9 D Lymphocytes % 19.6 D Monocytes % 2.9 L Eosinophils % 0.1 D Basophils % 0.5 Nucleated RBC % 0 PTT (Actin FS) Sodium 124 L Potassium 5.4 H Chloride 91 L Carbon Dioxide 26 Anion Gap 7 L BUN 36 H Creatinine 1.1 Creat Clearance w eGFR 47.43 POC Glucometer Random Glucose 217 H Serum Osmolality 288 Cancelled Calcium 9.0 Phosphorus 4.4 Magnesium 2.8 H 08/23/18 08/23/18 09:40 12:03 WBC RBC Hgb Hct MCV MCH MCHC RDW Plt Count MPV Absolute Neuts (auto) Neutrophils % Lymphocytes % Monocytes % Eosinophils % Basophils % Nucleated RBC % PTT (Actin FS) Sodium 124 L Potassium 5.5 H Chloride 90 L Carbon Dioxide 28 Anion Gap 6 L BUN 36 H Creatinine 1.1 Creat Clearance w eGFR 47.43 POC Glucometer 331 Random Glucose 275 H Serum Osmolality Calcium 9.0 Phosphorus Magnesium Active Medications Generic Name Dose Route Start Last Admin Trade Name Freq PRN Reason Stop Dose Admin Aspirin 81 mg 08/19/18 10:00 08/23/18 11:20 Asa - PO 81 mg DAILY [facility] Administration Atorvastatin Calcium 40 mg 08/18/18 22:00 08/22/18 21:52 Lipitor - PO Not Given HS [facility] Carvedilol 12.5 mg 08/18/18 22:00 08/23/18 11:21 Coreg - PO 12.5 mg BID [facility] Administration Clopidogrel Bisulfate 75 mg 08/19/18 10:45 08/23/18 11:21 Plavix - PO 75 mg DAILY [facility] Administration Docusate Sodium 300 mg 08/18/18 22:00 08/22/18 21:45 Colace - PO Not Given HS [facility] Ezetimibe 10 mg 08/20/18 11:45 08/23/18 11:20 Zetia - PO 10 mg DAILY [facility] Administration Gabapentin 600 mg 08/18/18 22:00 08/23/18 06:06 Neurontin - PO Not Given TID [facility] Heparin Sodium (Porcine) 5,000 unit 08/22/18 14:30 08/23/18 06:06 Heparin - SQ Not Given TID [facility] Insulin Aspart 1 vial 08/18/18 22:00 08/23/18 12:08 Novolog Vial Sliding Scale - SQ 8 unit ACHS [facility] Administration Protocol Insulin Detemir 35 units 08/18/18 22:00 08/22/18 21:52 Levemir Vial SQ Not Given HS [facility] Levothyroxine Sodium 88 mcg 08/19/18 07:00 08/23/18 06:07 Synthroid - PO Not Given DAILY@0700 [facility] Magnesium Hydroxide 30 ml 08/18/18 18:30 08/21/18 06:27 Milk Of Magnesia - PO 30 ml DAILY PRN Administration CONSTIPATION Nitroglycerin 0.4 mg 08/19/18 11:16 08/22/18 11:48 Nitrostat - SL 0.4 mg Q5M PRN Administration FOR CHEST PAIN Pantoprazole Sodium 40 mg 08/19/18 10:00 08/23/18 11:20 Protonix - PO 40 mg DAILY [facility] Administration Polyethylene Glycol 17 gm 08/18/18 18:30 08/23/18 11:26 Miralax (For Daily Use) - PO Not Given DAILY [facility] Ranolazine 500 mg 08/18/18 22:00 08/23/18 11:20 Ranexa - PO 500 mg BID [facility] Administration Senna 2 tab 08/18/18 22:00 08/22/18 21:53 Senna - PO Not Given HS [facility] ASSESSMENT/PLAN: 83 year old female presents with complaints of generalized pain, mostly in Left shoulder and R hip, found to have hyperglycemia. #CKD Stage 3 #Iso-osmolar Hyponatremia #Hyperkalemia #Dyspnea #Acute on chronic CHF #NSTEMI #Mild to moderate LV systolic dysfunction #Elevated Troponin #IDDM #Chronic pain #Left toe osteomyelitis #Hypothyroidism #HLD -Urine electrolytes -urine osms -urine creatinine -repeat serum osms in the AM -Hold lolly inhibitor -Hold Lasix -IV fluids NS @ 50ml/hour for 250ml -Monitor BMP -Paraproteinemia can be a cause of Isoosmolar hyponatremia. Order SPEP, light chains. Dispo: We will continue to follow the patient. Thank you for this consultative opportunity. Visit type - Emergency Visit Emergency Visit: Yes ED Registration Date: 08/20/18 Care time: The patient presented to the Emergency Department on the above date and was hospitalized for further evaluation of their emergent condition. - New Patient This patient is new to me today: Yes Date on this admission: 08/23/18 - Critical Care Critical Care patient: No
--- NOTE | 2018-08-23 14:09 | PN ---
Progress Note, Physician Chief Complaint: Events noted Sleeping when seen this am History of Present Illness: Patient was seen and examined. Chart was reviewed - Current Medication List Current Medications: Active Medications Aspirin (Asa -) 81 mg PO DAILY [facility] Last Admin: 08/23/18 11:20 Dose: 81 mg Atorvastatin Calcium (Lipitor -) 40 mg PO [facility] Last Admin: 08/22/18 21:52 Dose: Not Given Carvedilol (Coreg -) 12.5 mg PO BID [facility] Last Admin: 08/23/18 11:21 Dose: 12.5 mg Clopidogrel Bisulfate (Plavix -) 75 mg PO DAILY [facility] Last Admin: 08/23/18 11:21 Dose: 75 mg Docusate Sodium (Colace -) 300 mg PO [facility] Last Admin: 08/22/18 21:45 Dose: Not Given Ezetimibe (Zetia -) 10 mg PO DAILY [facility] Last Admin: 08/23/18 11:20 Dose: 10 mg Gabapentin (Neurontin -) 600 mg PO TID [facility] Last Admin: 08/23/18 06:06 Dose: Not Given Heparin Sodium (Porcine) (Heparin -) 5,000 unit SQ TID [facility] Last Admin: 08/23/18 13:49 Dose: 5,000 unit Insulin Aspart (Novolog Vial Sliding Scale -) 1 vial SQ [facility]; Protocol Last Admin: 08/23/18 12:08 Dose: 8 unit Insulin Detemir (Levemir Vial) 35 units SQ [facility] Last Admin: 08/22/18 21:52 Dose: Not Given Levothyroxine Sodium (Synthroid -) 88 mcg PO DAILY@0700 [facility] Last Admin: 08/23/18 06:07 Dose: Not Given Magnesium Hydroxide (Milk Of Magnesia -) 30 ml PO DAILY PRN PRN Reason: CONSTIPATION Last Admin: 08/21/18 06:27 Dose: 30 ml Nitroglycerin (Nitrostat -) 0.4 mg SL Q5M PRN PRN Reason: FOR CHEST PAIN Last Admin: 08/22/18 11:48 Dose: 0.4 mg Pantoprazole Sodium (Protonix -) 40 mg PO DAILY [facility] Last Admin: 08/23/18 11:20 Dose: 40 mg Polyethylene Glycol (Miralax (For Daily Use) -) 17 gm PO DAILY [facility] Last Admin: 08/23/18 11:26 Dose: Not Given Ranolazine (Ranexa -) 500 mg PO BID [facility] Last Admin: 08/23/18 11:20 Dose: 500 mg Senna (Senna -) 2 tab PO HS [facility] Last Admin: 08/22/18 21:53 Dose: Not Given - Objective Vital Signs: Vital Signs Temperature 98.5 F 08/22/18 20:04 Pulse Rate 53 L 08/22/18 20:04 Respiratory Rate 20 08/22/18 20:04 Blood Pressure 144/96 08/22/18 20:04 O2 Sat by Pulse Oximetry (%) 93 L 08/22/18 20:04 Neck: Yes: Supple Cardiovascular: Yes: Regular Rate and Rhythm, S1, S2 Respiratory: Yes: Diminished Gastrointestinal: Yes: Normal Bowel Sounds, Soft, Abdomen, Obese. No: Tenderness Edema: No Labs: CBC, BMP 08/23/18 07:00 08/23/18 09:40 Problem List - Problems (1) NSTEMI (non-ST elevated myocardial infarction) Code(s): I21.4 - NON-ST ELEVATION (NSTEMI) MYOCARDIAL INFARCTION (2) Abnormal EKG Code(s): R94.31 - ABNORMAL ELECTROCARDIOGRAM [ECG] [EKG] (3) Hyponatremia Code(s): E87.1 - HYPO-OSMOLALITY AND HYPONATREMIA (4) CAD (coronary artery disease) Code(s): I25.10 - ATHSCL HEART DISEASE OF THREE AFFILIATED CORONARY ARTERY W/O ANG PCTRS Qualifiers: Coronary Disease-Associated Artery/Lesion type: robinson artery [place] vs. transplanted heart: robinson heart Associated angina: with unstable angina Qualified Code(s): I25.110 - Atherosclerotic heart disease of robinson coronary artery with unstable angina pectoris (5) CKD (chronic kidney disease) stage 3, GFR 30-59 ml/min Code(s): N18.3 - CHRONIC KIDNEY DISEASE, STAGE 3 (MODERATE) (6) Chronic combined systolic and diastolic heart failure Code(s): I50.42 - CHRONIC COMBINED SYSTOLIC AND DIASTOLIC HRT FAIL (7) Dementia Code(s): F03.90 - UNSPECIFIED DEMENTIA WITHOUT BEHAVIORAL DISTURBANCE (8) Diabetic neuropathy Code(s): E11.40 - TYPE 2 DIABETES MELLITUS WITH DIABETIC NEUROPATHY, UNSP (9) GERD (gastroesophageal reflux disease) Code(s): K21.9 - GASTRO-ESOPHAGEAL REFLUX DISEASE WITHOUT ESOPHAGITIS (10) Hyperlipidemia Code(s): E78.5 - HYPERLIPIDEMIA, UNSPECIFIED Qualifiers: Hyperlipidemia type: pure hypercholesterolemia Qualified Code(s): E78.00 - Pure hypercholesterolemia, unspecified; E78.0 - Pure hypercholesterolemia (11) Hypertension Code(s): I10 - ESSENTIAL (PRIMARY) HYPERTENSION (12) Hypothyroidism Code(s): E03.9 - HYPOTHYROIDISM, UNSPECIFIED Qualifiers: Hypothyroidism type: unspecified Qualified Code(s): E03.9 - Hypothyroidism , unspecified (13) S/P CABG (coronary artery bypass graft) Code(s): Z95.1 - PRESENCE OF AORTOCORONARY BYPASS GRAFT (14) Type 2 diabetes mellitus Code(s): E11.9 - TYPE 2 DIABETES MELLITUS WITHOUT COMPLICATIONS Qualifiers: Diabetes mellitus half-way insulin use: without half-way use Diabetes mellitus complication status: with circulatory complication Diabetes mellitus complication detail: with peripheral angiopathy with gangrene Qualified Code(s ): E11.52 - Type 2 diabetes mellitus with diabetic peripheral angiopathy with gangrene (15) Jdyks-tm-lisrroc kidney injury Code(s): N17.9 - ACUTE KIDNEY FAILURE, UNSPECIFIED; N18.9 - CHRONIC KIDNEY DISEASE, UNSPECIFIED Qualifiers: Chronic kidney disease stage: stage 3 (moderate) (16) CHF exacerbation Code(s): I50.9 - HEART FAILURE, UNSPECIFIED Qualifiers: Heart failure type: combined systolic and diastolic Qualified Code(s): I50.43 - Acute on chronic combined systolic (congestive) and diastolic ( congestive) heart failure Assessment/Plan 1. Acute on Chronic Systolic/diastolic LV failure 2. CAD, [place], CABG, NSTEMI 3. Abdominal discomfort due to fecal retention 4. History of cerebrovascular disease 5. History of PAD with let toe osteomyelitis 6. HTN 7. DM 8. Hyperlipidemia not at goal control 9. Hypothyroidism 10. CKD 11. Hyponatremia PLAN: 1. Continue oral diuresis (Lasix 20 mg QD) with monitor renal function and electrolytes 2. Continue Carvedilol 12.5 mg BID 2. Continue Altace 5 mg QD and titrate dosage as tolerated 3. Continue Ranexa 500 mg BID 4. Continue Lipitor 40 mg QHS and Zetia 10 mg QD 5. Continue ASA 81 mg QD and Plavix 75 mg QD 6. Consider Jardiance if not contraindicated (for cardiovascular benefits) 7. DVT and GI prophylaxis Sang H. Roxanna MD
[2018-08-23] MEDS ORDERED: SODIUM CHLORIDE 1,000 ML IV SCH ×2 (14:30)
--- NOTE | 2018-08-23 14:37 | PN ---
Physical Exam: SUBJECTIVE: Patient seen and examined at bedside. C/o severe diffuse pain, highly anxious and agitated. OBJECTIVE: Vital Signs Period Temp Pulse Resp BP Sys/Ibarra Pulse Ox Last 24 Hr 97.8 F-98.5 F 53-60 18-20 143-156/63-96 93 GENERAL: A&Ox3, vocalized significant distress HEAD: NC/AT EYES: PERRLA, EOMI EARS, NOSE, THROAT: Ears normal, nares patent, oropharynx clear without exudates. Moist mucous membranes. NECK: Normal range of motion, supple without lymphadenopathy, JVD, or masses. LUNGS: CTA b/l HEART: RRR no m/r/g ABDOMEN: Soft, moderately distended, mild diffuse tenderness UPPER EXTREMITIES: 2+ pulses, warm, well-perfused. No cyanosis. No clubbing. No peripheral edema. LOWER EXTREMITIES: 2+ pulses, warm, well-perfused. No calf tenderness. No peripheral edema. Chronic tenderness of L great toe. 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, sensory systems w/o focal deficit PSYCHIATRIC: Highly anxious SKIN: Warm, dry, normal turgor, no rashes or lesions noted Laboratory Results - last 24 hr 08/22/18 08/22/18 08/23/18 17:19 20:48 07:00 WBC RBC Hgb Hct MCV MCH MCHC RDW Plt Count MPV Absolute Neuts (auto) Neutrophils % Lymphocytes % Monocytes % Eosinophils % Basophils % Nucleated RBC % PTT (Actin FS) 29.9 Sodium Potassium Chloride Carbon Dioxide Anion Gap BUN Creatinine Creat Clearance w eGFR POC Glucometer 169 120 Random Glucose Serum Osmolality Calcium Phosphorus Magnesium 08/23/18 08/23/18 08/23/18 07:00 07:00 08:46 WBC 6.9 RBC 3.78 Hgb 11.5 Hct 34.5 MCV 91.4 MCH 30.5 MCHC 33.3 RDW 14.0 Plt Count 222 MPV 8.8 Absolute Neuts (auto) 5.3 Neutrophils % 76.9 D Lymphocytes % 19.6 D Monocytes % 2.9 L Eosinophils % 0.1 D Basophils % 0.5 Nucleated RBC % 0 PTT (Actin FS) Sodium 124 L Potassium 5.4 H Chloride 91 L Carbon Dioxide 26 Anion Gap 7 L BUN 36 H Creatinine 1.1 Creat Clearance w eGFR 47.43 POC Glucometer Random Glucose 217 H Serum Osmolality 288 Cancelled Calcium 9.0 Phosphorus 4.4 Magnesium 2.8 H 08/23/18 08/23/18 09:40 12:03 WBC RBC Hgb Hct MCV MCH MCHC RDW Plt Count MPV Absolute Neuts (auto) Neutrophils % Lymphocytes % Monocytes % Eosinophils % Basophils % Nucleated RBC % PTT (Actin FS) Sodium 124 L Potassium 5.5 H Chloride 90 L Carbon Dioxide 28 Anion Gap 6 L BUN 36 H Creatinine 1.1 Creat Clearance w eGFR 47.43 POC Glucometer 331 Random Glucose 275 H Serum Osmolality Calcium 9.0 Phosphorus Magnesium Active Medications Generic Name Dose Route Start Last Admin Trade Name Freq PRN Reason Stop Dose Admin Aspirin 81 mg 08/19/18 10:00 08/23/18 11:20 Asa - PO 81 mg DAILY [facility] Administration Atorvastatin Calcium 40 mg 08/18/18 22:00 08/22/18 21:52 Lipitor - PO Not Given HS [facility] Carvedilol 12.5 mg 08/18/18 22:00 08/23/18 11:21 Coreg - PO 12.5 mg BID [facility] Administration Clopidogrel Bisulfate 75 mg 08/19/18 10:45 08/23/18 11:21 Plavix - PO 75 mg DAILY [facility] Administration Docusate Sodium 300 mg 08/18/18 22:00 08/22/18 21:45 Colace - PO Not Given HS [facility] Ezetimibe 10 mg 08/20/18 11:45 08/23/18 11:20 Zetia - PO 10 mg DAILY [facility] Administration Gabapentin 600 mg 08/18/18 22:00 08/23/18 06:06 Neurontin - PO Not Given TID [facility] Heparin Sodium (Porcine) 5,000 unit 08/22/18 14:30 08/23/18 13:49 Heparin - SQ 5,000 unit TID [facility] Administration Sodium Chloride 1,000 mls @ 50 mls/hr 08/23/18 14:30 Normal Saline - IV ASDIR [facility] Sodium Chloride 1,000 mls @ 50 mls/hr 08/23/18 14:30 Normal Saline - IV 08/23/18 19:29 ASDIR [facility] Insulin Aspart 1 vial 08/18/18 22:00 08/23/18 12:08 Novolog Vial Sliding Scale - SQ 8 unit ACHS [facility] Administration Protocol Insulin Detemir 35 units 08/18/18 22:00 08/22/18 21:52 Levemir Vial SQ Not Given HS [facility] Levothyroxine Sodium 88 mcg 08/19/18 07:00 08/23/18 06:07 Synthroid - PO Not Given DAILY@0700 [facility] Magnesium Hydroxide 30 ml 08/18/18 18:30 08/21/18 06:27 Milk Of Magnesia - PO 30 ml DAILY PRN Administration CONSTIPATION Nitroglycerin 0.4 mg 08/19/18 11:16 08/22/18 11:48 Nitrostat - SL 0.4 mg Q5M PRN Administration FOR CHEST PAIN Pantoprazole Sodium 40 mg 08/19/18 10:00 08/23/18 11:20 Protonix - PO 40 mg DAILY [facility] Administration Polyethylene Glycol 17 gm 08/18/18 18:30 08/23/18 11:26 Miralax (For Daily Use) - PO Not Given DAILY [facility] Ranolazine 500 mg 08/18/18 22:00 08/23/18 11:20 Ranexa - PO 500 mg BID [facility] Administration Senna 2 tab 08/18/18 22:00 08/22/18 21:53 Senna - PO Not Given HS [facility] ASSESSMENT/PLAN: 83 y/o F w/ PMHx HTN, IDDM, HLD, CAD, CHF, GERD, neuropathy, chronic diffuse pain, hypothyroidism, chronic L great toe osteomyelitis p/w chief complaint of overall chronic body pain worsening over past three days. Presented hyperglycemic w/ CT findings of b/l pleural effusions and colonic retention, and troponemia. #hyponatremia/hyperkalemia -significant electrolyte abnormalities since yesterday -nephrology consulted -hyperkalemia treated empirically -per nephro: serum and urine osm, electrolyte studies sent and will repeat in AM ; initial serum osm is iso-osmolar -SPEP, light chains, lipids -NS 250 cc total at 50cc/hr -hold Lasix, ramipril #NSTEMI -serial troponins peaked at 3.04, now downtrending -no acute ST changes on serial EKGs -cardiology following -cont ASA/Plavix, Ranexa, Lipitor, Ezetimibe -cont carvedilol, held ramipril as per nephro -NTG SL PRN for anginal pain -CXR showing congestion -echo showing 40-45% EF, anteroseptal akinesis, mild-moderate reduction of LV systolic function, multiple valvular lesions #CHF exacerbation -echo showing 40-45% EF, anteroseptal akinesis, mild-moderate reduction of LV systolic function, multiple valvular lesions -congestion/pleural effusions b/l on CT a/p -dyspnea ongoing -pulmonology following -cont ASA/Plavix, Ranexa, Lipitor, Ezetimibe -Lasix held as per nephro -qualifies for home O2 per pre-/post- #constipation -bowel regimen: senna, colace, Mg(OH)2, miralax -no further enemas #DM -Levemir 35U HS -BGM, SSI #hypothyroid -home LTX #FEN -further IVF as per nephrology -monitor and replete electrolytes -diabetic diet #PPx -DVT: heparin sq -GI: bowel regimen #code -full #dispo -telemetry -evaluated by PT and RT, qualifies for home O2, will require DC to SNF Visit type - Emergency Visit Emergency Visit: No - New Patient This patient is new to me today: No - Critical Care Critical Care patient: No
--- NOTE | 2018-08-23 14:52 | PN ---
Teaching Attending Note Name of Resident: Roberto Carlos Ashley (Nephrology) ATTENDING PHYSICIAN STATEMENT I saw and evaluated the patient. I reviewed the resident's note and discussed the case with the resident. I agree with the resident's findings and plan as documented. Renal Pt is an 83 year old female with pmhx of HTN, HLD, CAD s/p CABG, GERD, CKD 3, Hx CVA, DM 2 with neuropathy, chronic diffuse pain, hypothyroidism, chronic L great toe osteomyelitis, and hyponatremia who was found to have worsening hyponatremia and hyperkalemia today. I was called to evaluate her. SHe is lethargic and unable to give much history. I spoke to the medical team and at baseline she is bedridden. She was medicated for agitation today. pmhx hyponatremia HTN, HLD, CAD s/p CABG, GERD, CKD 3, Hx CVA, DM 2 with neuropathy, chronic diffuse pain, hypothyroidism, chronic L great toe osteomyelitis, CHF nkda family hx unable to obtain ros lethargic soc hx unable to obtain Current Medications Generic Name Dose Route Start Last Admin Trade Name Fadyq PRN Reason Stop Dose Admin Aspirin 81 mg 08/19/18 10:00 08/23/18 11:20 Asa - PO 81 mg DAILY [facility] Administration Atorvastatin Calcium 40 mg 08/18/18 22:00 08/22/18 21:52 Lipitor - PO Not Given HS [facility] Carvedilol 12.5 mg 08/18/18 22:00 08/23/18 11:21 Coreg - PO 12.5 mg BID [facility] Administration Clopidogrel Bisulfate 75 mg 08/19/18 10:45 08/23/18 11:21 Plavix - PO 75 mg DAILY [facility] Administration Docusate Sodium 300 mg 08/18/18 22:00 08/22/18 21:45 Colace - PO Not Given HS [facility] Ezetimibe 10 mg 08/20/18 11:45 08/23/18 11:20 Zetia - PO 10 mg DAILY [facility] Administration Gabapentin 600 mg 08/18/18 22:00 08/23/18 06:06 Neurontin - PO Not Given TID [facility] Heparin Sodium (Porcine) 5,000 unit 08/22/18 14:30 08/23/18 13:49 Heparin - SQ 5,000 unit TID [facility] Administration Sodium Chloride 1,000 mls @ 50 mls/hr 08/23/18 14:30 Normal Saline - IV ASDIR [facility] Sodium Chloride 1,000 mls @ 50 mls/hr 08/23/18 14:30 08/23/18 14:32 Normal Saline - IV 08/23/18 19:29 50 mls/hr ASDIR [facility] Administration Insulin Aspart 1 vial 08/18/18 22:00 08/23/18 12:08 Novolog Vial Sliding Scale - SQ 8 unit ACHS [facility] Administration Protocol Insulin Detemir 35 units 08/18/18 22:00 08/22/18 21:52 Levemir Vial SQ Not Given HS [facility] Levothyroxine Sodium 88 mcg 08/19/18 07:00 08/23/18 06:07 Synthroid - PO Not Given DAILY@0700 [facility] Magnesium Hydroxide 30 ml 08/18/18 18:30 08/21/18 06:27 Milk Of Magnesia - PO 30 ml DAILY PRN Administration CONSTIPATION Nitroglycerin 0.4 mg 08/19/18 11:16 08/22/18 11:48 Nitrostat - SL 0.4 mg Q5M PRN Administration FOR CHEST PAIN Pantoprazole Sodium 40 mg 08/19/18 10:00 08/23/18 11:20 Protonix - PO 40 mg DAILY [facility] Administration Polyethylene Glycol 17 gm 08/18/18 18:30 08/23/18 11:26 Miralax (For Daily Use) - PO Not Given DAILY [facility] Ranolazine 500 mg 08/18/18 22:00 08/23/18 11:20 Ranexa - PO 500 mg BID [facility] Administration Senna 2 tab 08/18/18 22:00 08/22/18 21:53 Senna - PO Not Given HS [facility] Laboratory Tests 08/26/17 08/30/17 09/20/17 08:00 08:25 02:01 WBC Hgb Sodium Potassium Creatinine 1.3 H 1.0 1.7 H Urine Protein Urine Blood 09/20/17 08/18/18 08/23/18 09:40 10:49 07:00 WBC 6.9 Hgb 11.5 Sodium Potassium Creatinine 1.3 H Urine Protein Negative Urine Blood Negative 08/23/18 08/23/18 07:00 09:40 WBC Hgb Sodium 124 L 124 L Potassium 5.4 H 5.5 H Creatinine Urine Protein Urine Blood Last Vital Signs Temp Pulse Resp BP Pulse Ox 97.8 F 60 20 156/72 93 L 08/23/18 13:00 08/23/18 13:00 08/23/18 13:00 08/23/18 13:00 08/22/18 20:04 cardio s1s2 pulm clear GI soft, obese ext neg edema neuro lethargy circ pis pulses skin decreased turgor Impression 1. hyponatremia - isoosmolar 2. hyperkalemia 3. htn 4. chf 5. cad 6. ckd 7. hx cva 8. agitation Plan - serum osm is normal, check spep - send urine osm and lytes, also repeat serum osm - can give 250 cc of saline at 50 cc per (5 hrs) - hold lasix today - hold lolly as potassium is elevated - can treat potassium medically - discussed with medical team - restrict free water for now - called and discussed with cardio
[2018-08-23 15:09] LABS: CHOLESTEROL 197 mg/dL (50-200); HDL CHOLESTEROL 52 mg/dL (40-60); TRIGLYCERIDES 170 mg/dL (0-150)
--- NOTE | 2018-08-23 15:42 | PN ---
Teaching Attending Note Name of Resident: Juan C Robertson ATTENDING PHYSICIAN STATEMENT I saw and evaluated the patient. I reviewed the resident's note and discussed the case with the resident. I agree with the resident's findings and plan as documented. SUBJECTIVE:lethargic. opens eyes to verbal stimuli but falls asleep quickly OBJECTIVE: Last Vital Signs Temp Pulse Resp BP Pulse Ox 97.8 F 60 20 156/72 93 L 08/23/18 13:00 08/23/18 13:00 08/23/18 13:00 08/23/18 13:00 08/22/18 20:04 General NAD CV S1 S2 RRR no murmur/rub/gallop Lungs CTA anteriorly ASSESSMENT AND PLAN: 83 year old female with history of HTN, HLD, CAD s/p CABG, GERD, CKD 3, Hx CVA, DM 2 with neuropathy, chronic diffuse pain, hypothyroidism, chronic L great toe osteomyelitis (treated with IV Abx/Hyperbaric Therapy) presents with complaints of generalized pain, mostly in Left shoulder and R hip, found to have hyperglycemia with intermittent chest pain and some SOB but no cough/sputum/ hemoptysis/fever. 1. Acute NSTEMI in setting of bilateral effusions and acute on chronic systolic CHF exacerbation- completed medical treatment with hep ggt. not a candidate for cath at this time. will be treated medically. hold lasix at this time. cont acei /coreg/asa/plavix/ranexa 2. Hyponatremia- not symptomatic. repeat labs to ensure it is not lab error. check uosm/sosm. nephro consulted. will give low dose IVF as may have become dehydrated with aggressive diuretic use. monitor Na level q8H 3. Acute on chronic CHF exacerbation- clinically looks a little dry. holding lasix. sudden onset of hyponatremia.cardio on board 4. L shoulder pain- no pain currently. ortho follow up as outpatient 5. DM- A1c 9.1. hold oral agents. cont iss and BGM. would benefit from insulin therapy as outpatient 6. Hypothyroidism - Continue Synthroid. 7. GERD - Continue PPI 8. CKD 3 - Stable. 9. HTN - Continue Ramipril and Coreg 10. HLD - LDL 122 - Zetia added to Statin. 11. DVT Px - SQ Heparin. 12. spoke with daughter present at bedside. all questions answered. verbalized understanding and agreement with plan. agrees with [facility] placement when medically optimized
[2018-08-23 18:06] LABS: ANION GAP 4 MMOL/L (8-16); BLOOD UREA NITROGEN 31 mg/dL (7-18); CALCIUM 8.8 mg/dL (8.5-10.1); CHLORIDE 91 mmol/L (98-107); CO2 32 mmol/L (21-32); CREATININE 1.2 mg/dL (0.55-1.3); GLUCOSE,RANDOM 217 mg/dL (74-106); POTASSIUM 5.2 mmol/L (3.5-5.1); SODIUM 127 mmol/L (136-145)
[2018-08-23] MEDS: INSULIN (LEVEMIR) 100 UNITS/ML UNITS SQ SCH (21:48)
[2018-08-23] MEDS: DOCUSATE SODIUM 100 MG CAPSULE (FP) PO SCH (22:52)
[2018-08-23] MEDS: ATORVASTATIN CA 40 MG TABLET (FP) PO SCH (22:52)
[2018-08-23] MEDS: SENNOSIDES 8.6MG TABLET (FP) PO SCH (22:52)
[2018-08-23 23:36] LABS: ANION GAP 4 MMOL/L (8-16); BLOOD UREA NITROGEN 35 mg/dL (7-18); CALCIUM 8.9 mg/dL (8.5-10.1); CHLORIDE 92 mmol/L (98-107); CO2 32 mmol/L (21-32); CREATININE 1.1 mg/dL (0.55-1.3); GLUCOSE,RANDOM 137 mg/dL (74-106); POTASSIUM 5.2 mmol/L (3.5-5.1); SODIUM 128 mmol/L (136-145)
[2018-08-24] MEDS: HEPARIN NA (PORCINE) 5,000 UNITS/ML 1ML VIAL SQ SCH ×2 (05:32→13:03)
[2018-08-24] MEDS: GABAPENTIN 300 MG CAPSULE (FP) PO SCH ×2 (05:32→13:04)
[2018-08-24] MEDS: INSULIN SLIDING SCALE (NOVOLOG) 1 VIAL SQ SCH ×2 (06:03→11:37)
[2018-08-24] MEDS: LEVOTHYROXINE NA 88 MCG TABLET (FP) PO SCH (06:14)
[2018-08-24 07:31] LABS: BASO % 0.4 % (0-2.0); EOS % 1.2 % (0-4.5); HEMATOCRIT 31.9 % (32.4-45.2); HEMOGLOBIN 10.5 GM/dL (10.7-15.3); LYMPH % 27.7 % (8-40); MCH 29.9 pg (25.7-33.7); MEAN CELL VOLUME 90.6 fl (80-96); MEAN PLT VOLUME 8.9 fl (7.5-11.1); MONO % 10.2 % (3.8-10.2); NEUT % 60.5 % (42.8-82.8); PLATELET COUNT 263 K/MM3 (134-434); RBC 3.52 M/mm3 (3.60-5.2); RDW 13.8 % (11.6-15.6); WHITE BLOOD COUNT 8.8 K/mm3 (4.0-10.0)
[2018-08-24 08:01] LABS: ANION GAP 4 MMOL/L (8-16); BLOOD UREA NITROGEN 35 mg/dL (7-18); CALCIUM 8.4 mg/dL (8.5-10.1); CHLORIDE 94 mmol/L (98-107); CO2 32 mmol/L (21-32); CREATININE 1.2 mg/dL (0.55-1.3); GLUCOSE,RANDOM 63 mg/dL (74-106); MAGNESIUM 2.6 mg/dL (1.8-2.4); PHOSPHOROUS 3.4 mg/dL (2.5-4.9); POTASSIUM 4.8 mmol/L (3.5-5.1); SODIUM 130 mmol/L (136-145)
[2018-08-24 09:18] LABS: OSMOLALITY,SERUM 283 mosm/kg (278-305)
[2018-08-24] MEDS ORDERED: PT OWN MED DRAWER 7, Y5N ONE (10:18)
[2018-08-24] MEDS: PANTOPRAZOLE 40 MG TABLET (FP) PO SCH (10:19)
[2018-08-24] MEDS: CLOPIDOGREL BISULFATE 75 MG TABLET (FP) PO SCH (10:19)
[2018-08-24] MEDS: RANOLAZINE E.R. 500 MG TABLET (FP) PO SCH (10:19)
[2018-08-24] MEDS: EZETIMIBE 10 MG TABLET (FP) PO SCH (10:20)
[2018-08-24] MEDS: ASPIRIN 81 MG CHEWABLE TABLETS PO SCH (10:20)
[2018-08-24] MEDS: POLYETHYLENE GLYCOL 3350 119 GM BTL PO SCH (10:20)
[2018-08-24] MEDS: CARVEDILOL 12.5 MG TABLET (FP) PO SCH (10:20)
--- NOTE | 2018-08-24 11:48 | PN ---
Progress Note, Physician History of Present Illness: Denies chest pain or dyspnea, feels weak, but sensorium improved. - Current Medication List Current Medications: Active Medications Aspirin (Asa -) 81 mg PO DAILY [facility] Last Admin: 08/24/18 10:20 Dose: 81 mg Atorvastatin Calcium (Lipitor -) 40 mg PO [facility] Last Admin: 08/23/18 22:52 Dose: 40 mg Carvedilol (Coreg -) 12.5 mg PO BID [facility] Last Admin: 08/24/18 10:20 Dose: 12.5 mg Clopidogrel Bisulfate (Plavix -) 75 mg PO DAILY [facility] Last Admin: 08/24/18 10:19 Dose: 75 mg Docusate Sodium (Colace -) 300 mg PO [facility] Last Admin: 08/23/18 22:52 Dose: Not Given Ezetimibe (Zetia -) 10 mg PO DAILY [facility] Last Admin: 08/24/18 10:20 Dose: 10 mg Gabapentin (Neurontin -) 600 mg PO TID [facility] Last Admin: 08/24/18 05:32 Dose: 600 mg Heparin Sodium (Porcine) (Heparin -) 5,000 unit SQ TID [facility] Last Admin: 08/24/18 05:32 Dose: 5,000 unit Insulin Aspart (Novolog Vial Sliding Scale -) 1 vial SQ [facility]; Protocol Last Admin: 08/24/18 11:37 Dose: Not Given Insulin Detemir (Levemir Vial) 35 units SQ [facility] Last Admin: 08/23/18 21:48 Dose: 35 unit Levothyroxine Sodium (Synthroid -) 88 mcg PO DAILY@0700 [facility] Last Admin: 08/24/18 06:14 Dose: 88 mcg Magnesium Hydroxide (Milk Of Magnesia -) 30 ml PO DAILY PRN PRN Reason: CONSTIPATION Last Admin: 08/21/18 06:27 Dose: 30 ml Nitroglycerin (Nitrostat -) 0.4 mg SL Q5M PRN PRN Reason: FOR CHEST PAIN Last Admin: 08/22/18 11:48 Dose: 0.4 mg Pantoprazole Sodium (Protonix -) 40 mg PO DAILY [facility] Last Admin: 08/24/18 10:19 Dose: 40 mg Polyethylene Glycol (Miralax (For Daily Use) -) 17 gm PO DAILY [facility] Last Admin: 08/24/18 10:20 Dose: 17 gm Ranolazine (Ranexa -) 500 mg PO BID [facility] Last Admin: 08/24/18 10:19 Dose: 500 mg Senna (Senna -) 2 tab PO HS [facility] Last Admin: 08/23/18 22:52 Dose: 2 tab - Objective Vital Signs: Vital Signs Temperature 98.2 F 08/24/18 06:00 Pulse Rate 55 L 08/24/18 06:00 Respiratory Rate 20 08/24/18 06:00 Blood Pressure 149/80 08/24/18 06:00 O2 Sat by Pulse Oximetry (%) 98 08/23/18 21:00 Constitutional: Yes: No Distress, Calm Neck: Yes: Supple Cardiovascular: Yes: Regular Rate and Rhythm Respiratory: Yes: Regular, Diminished, On Nasal O2 Gastrointestinal: Yes: Normal Bowel Sounds, Soft, Abdomen, Obese Edema: No Labs: CBC, BMP 08/24/18 06:30 08/24/18 06:30 INR, PTT INR 1.18 (0.83-1.09) H 08/21/18 07:00 - ....Imaging EKG: Report Reviewed (Tele: NSR) Problem List - Problems (1) NSTEMI (non-ST elevated myocardial infarction) Code(s): I21.4 - NON-ST ELEVATION (NSTEMI) MYOCARDIAL INFARCTION (2) Hyponatremia Code(s): E87.1 - HYPO-OSMOLALITY AND HYPONATREMIA (3) CAD (coronary artery disease) Code(s): I25.10 - ATHSCL HEART DISEASE OF [place] CORONARY ARTERY W/O ANG PCTRS Qualifiers: Coronary Disease-Associated Artery/Lesion type: [place] artery [place] vs. transplanted heart: [place] heart Associated angina: with unstable angina Qualified Code(s): I25.110 - Atherosclerotic heart disease of [place] coronary artery with unstable angina pectoris (4) CKD (chronic kidney disease) stage 3, GFR 30-59 ml/min Code(s): N18.3 - CHRONIC KIDNEY DISEASE, STAGE 3 (MODERATE) (5) Chronic combined systolic and diastolic heart failure Code(s): I50.42 - CHRONIC COMBINED SYSTOLIC AND DIASTOLIC HRT FAIL (6) Hyperlipidemia Code(s): E78.5 - HYPERLIPIDEMIA, UNSPECIFIED Qualifiers: Hyperlipidemia type: pure hypercholesterolemia Qualified Code(s): E78.00 - Pure hypercholesterolemia, unspecified; E78.0 - Pure hypercholesterolemia (7) Hypertensive cardiomyopathy Code(s): I11.9 - HYPERTENSIVE HEART DISEASE WITHOUT HEART FAILURE; I43 - CARDIOMYOPATHY IN DISEASES CLASSIFIED ELSEWHERE Qualifiers: Heart failure presence: with heart failure Qualified Code(s): I11.0 - Hypertensive heart disease with heart failure; I43 - Cardiomyopathy in diseases classified elsewhere (8) Hypothyroidism Code(s): E03.9 - HYPOTHYROIDISM, UNSPECIFIED Qualifiers: Hypothyroidism type: unspecified Qualified Code(s): E03.9 - Hypothyroidism , unspecified (9) S/P CABG (coronary artery bypass graft) Code(s): Z95.1 - PRESENCE OF AORTOCORONARY BYPASS GRAFT (10) Type 2 diabetes mellitus Code(s): E11.9 - TYPE 2 DIABETES MELLITUS WITHOUT COMPLICATIONS Qualifiers: Diabetes mellitus alf insulin use: without terminal makeup operator use Diabetes mellitus complication status: with circulatory complication Diabetes mellitus complication detail: with peripheral angiopathy with gangrene Qualified Code(s ): E11.52 - Type 2 diabetes mellitus with diabetic peripheral angiopathy with gangrene Assessment/Plan 08/19/2018 Echo: Mild-mod decreased LVEF 40-45% with AK in old LAD infarct, normal RV size and fxn, mild LAE, mild MR, mod TR 09/10/2017 Echo: (Old LAD infarct) mild-moderate decrease in LV systolic function, mild ISA, trace MR, severe apical septal and apical lateral hypokinesia 1. LV systolic dysfunction with h/o failure 2. CAD, HI, CABG, NSTEMI 3. Abdominal discomfort due to fecal retention 4. History of cerebrovascular disease 5. History of PAD with let toe osteomyelitis 6. HTN 7. DM not at goal control Ha1c 9.1% 8. Hyperlipidemia not at goal control 9. Hypothyroidism 10. CKD, hyperkalemia 11. Hyponatremia - isoosmolar PLAN: 1. Observe off diuretics with monitor renal function and electrolytes, free H20 restriction 2. Continue Carvedilol 12.5 mg BID 3. Holding Altace 5 mg QD pending resolution of hyperkalemia 4. Continue Ranexa 500 mg BID 5. Continue Lipitor 40 mg QHS and Zetia 10 mg QD 6. Continue ASA 81 mg QD and Plavix 75 mg QD 7. Consider Jardiance 10 qd if not contraindicated (for cardiovascular benefits) 8. DVT and GI prophylaxis
--- NOTE | 2018-08-24 12:11 | PN ---
Progress Note, Physician History of Present Illness: Pt seen and examined at bedside. She is awake today. She is confused. - Current Medication List Current Medications: Active Medications Aspirin (Asa -) 81 mg PO DAILY [facility] Last Admin: 08/24/18 10:20 Dose: 81 mg Atorvastatin Calcium (Lipitor -) 40 mg PO [facility] Last Admin: 08/23/18 22:52 Dose: 40 mg Carvedilol (Coreg -) 12.5 mg PO BID [facility] Last Admin: 08/24/18 10:20 Dose: 12.5 mg Clopidogrel Bisulfate (Plavix -) 75 mg PO DAILY [facility] Last Admin: 08/24/18 10:19 Dose: 75 mg Docusate Sodium (Colace -) 300 mg PO [facility] Last Admin: 08/23/18 22:52 Dose: Not Given Ezetimibe (Zetia -) 10 mg PO DAILY [facility] Last Admin: 08/24/18 10:20 Dose: 10 mg Gabapentin (Neurontin -) 600 mg PO TID [facility] Last Admin: 08/24/18 05:32 Dose: 600 mg Heparin Sodium (Porcine) (Heparin -) 5,000 unit SQ TID [facility] Last Admin: 08/24/18 05:32 Dose: 5,000 unit Insulin Aspart (Novolog Vial Sliding Scale -) 1 vial SQ [facility]; Protocol Last Admin: 08/24/18 11:37 Dose: Not Given Insulin Detemir (Levemir Vial) 35 units SQ [facility] Last Admin: 08/23/18 21:48 Dose: 35 unit Levothyroxine Sodium (Synthroid -) 88 mcg PO DAILY@0700 [facility] Last Admin: 08/24/18 06:14 Dose: 88 mcg Magnesium Hydroxide (Milk Of Magnesia -) 30 ml PO DAILY PRN PRN Reason: CONSTIPATION Last Admin: 08/21/18 06:27 Dose: 30 ml Nitroglycerin (Nitrostat -) 0.4 mg SL Q5M PRN PRN Reason: FOR CHEST PAIN Last Admin: 08/22/18 11:48 Dose: 0.4 mg Pantoprazole Sodium (Protonix -) 40 mg PO DAILY [facility] Last Admin: 08/24/18 10:19 Dose: 40 mg Polyethylene Glycol (Miralax (For Daily Use) -) 17 gm PO DAILY [facility] Last Admin: 08/24/18 10:20 Dose: 17 gm Ranolazine (Ranexa -) 500 mg PO BID [facility] Last Admin: 08/24/18 10:19 Dose: 500 mg Senna (Senna -) 2 tab PO HS [facility] Last Admin: 08/23/18 22:52 Dose: 2 tab - Objective Vital Signs: Vital Signs Temperature 98.2 F 08/24/18 06:00 Pulse Rate 55 L 08/24/18 06:00 Respiratory Rate 20 08/24/18 09:00 Blood Pressure 149/80 08/24/18 06:00 O2 Sat by Pulse Oximetry (%) 96 08/24/18 09:00 Constitutional: Yes: Calm Eyes: Yes: Conjunctiva Clear HENT: Yes: Atraumatic Cardiovascular: Yes: S1, S2 Respiratory: Yes: On Nasal O2 Gastrointestinal: Yes: Soft Genitourinary: Yes: WNL Musculoskeletal: Yes: WNL Neurological: Yes: Confusion Labs: CBC, BMP 08/24/18 06:30 08/24/18 06:30 INR, PTT INR 1.18 (0.83-1.09) H 08/21/18 07:00 Assessment/Plan Current Medications Generic Name Dose Route Start Last Admin Trade Name Fadyq PRN Reason Stop Dose Admin Aspirin 81 mg 08/19/18 10:00 08/24/18 10:20 Asa - PO 81 mg DAILY [facility] Administration Atorvastatin Calcium 40 mg 08/18/18 22:00 08/23/18 22:52 Lipitor - PO 40 mg HS [facility] Administration Carvedilol 12.5 mg 08/18/18 22:00 08/24/18 10:20 Coreg - PO 12.5 mg BID [facility] Administration Clopidogrel Bisulfate 75 mg 08/19/18 10:45 08/24/18 10:19 Plavix - PO 75 mg DAILY [facility] Administration Docusate Sodium 300 mg 08/18/18 22:00 08/23/18 22:52 Colace - PO Not Given HS [facility] Ezetimibe 10 mg 08/20/18 11:45 08/24/18 10:20 Zetia - PO 10 mg DAILY [facility] Administration Gabapentin 600 mg 08/18/18 22:00 08/24/18 05:32 Neurontin - PO 600 mg TID [facility] Administration Heparin Sodium (Porcine) 5,000 unit 08/22/18 14:30 08/24/18 05:32 Heparin - SQ 5,000 unit TID [facility] Administration Insulin Aspart 1 vial 08/18/18 22:00 08/24/18 11:37 Novolog Vial Sliding Scale - SQ Not Given ACHS [facility] Protocol Insulin Detemir 35 units 08/18/18 22:00 08/23/18 21:48 Levemir Vial SQ 35 unit HS [facility] Administration Levothyroxine Sodium 88 mcg 08/19/18 07:00 08/24/18 06:14 Synthroid - PO 88 mcg DAILY@0700 [facility] Administration Magnesium Hydroxide 30 ml 08/18/18 18:30 08/21/18 06:27 Milk Of Magnesia - PO 30 ml DAILY PRN Administration CONSTIPATION Nitroglycerin 0.4 mg 08/19/18 11:16 08/22/18 11:48 Nitrostat - SL 0.4 mg Q5M PRN Administration FOR CHEST PAIN Pantoprazole Sodium 40 mg 08/19/18 10:00 08/24/18 10:19 Protonix - PO 40 mg DAILY [facility] Administration Polyethylene Glycol 17 gm 08/18/18 18:30 08/24/18 10:20 Miralax (For Daily Use) - PO 17 gm DAILY [facility] Administration Ranolazine 500 mg 08/18/18 22:00 08/24/18 10:19 Ranexa - PO 500 mg BID [facility] Administration Senna 2 tab 08/18/18 22:00 08/23/18 22:52 Senna - PO 2 tab HS [facility] Administration Impression 1. hyponatremia - isoosmolar 2. hyperkalemia 3. htn 4. chf 5. cad 6. ckd 7. hx cva 8. agitation Plan - follow spep - restrict free water - sodium improved with 250 cc of fluid - can restart lasix tomorrow - cardiac diet - repeat urine sodium - follow spep - pt with chronic hyponatermia, may be reset osmostat, will cont with workup
--- NOTE | 2018-08-24 12:15 | PN ---
Teaching Attending Note Name of Resident: Juan C Robertson ATTENDING PHYSICIAN STATEMENT I saw and evaluated the patient. I reviewed the resident's note and discussed the case with the resident. I agree with the resident's findings and plan as documented. SUBJECTIVE:asymptomatic. denies Cp, SOB, fever, chills, cough, N/V/C/D OBJECTIVE: Last Vital Signs Temp Pulse Resp BP Pulse Ox 98.2 F 55 L 20 149/80 96 08/24/18 06:00 08/24/18 06:00 08/24/18 09:00 08/24/18 06:00 08/24/18 09:00 General NAD CV S1 S2 RRR no murmur/rub/gallop Lungs CTA anteriorly Extremities trace pitting edema ASSESSMENT AND PLAN: 83 year old female with history of HTN, HLD, CAD s/p CABG, GERD, CKD 3, Hx CVA, DM 2 with neuropathy, chronic diffuse pain, hypothyroidism, chronic L great toe osteomyelitis (treated with IV Abx/Hyperbaric Therapy) presents with complaints of generalized pain, mostly in Left shoulder and R hip, found to have hyperglycemia with intermittent chest pain and some SOB but no cough/sputum/ hemoptysis/fever. 1. Acute NSTEMI in setting of bilateral effusions and acute on chronic systolic CHF exacerbation- completed medical treatment with hep ggt. not a candidate for cath at this time. will be treated medically. will re-start lasix. cont acei/ coreg/asa/plavix/ranexa 2. Hyponatremia- now improved with minimal hydration and holding of diuretic. cont free water restriction. will need sodium monitoring as outpatient and f/u of workup sent 3. Acute on chronic CHF exacerbation-clinically clinically looks a little dry. holding lasix. cardio on board 4. L shoulder pain- no pain currently. ortho follow up as outpatient 5. DM- A1c 9.1. hold oral agents. cont iss and BGM. would benefit from insulin therapy as outpatient 6. Hypothyroidism - Continue Synthroid. 7. GERD - Continue PPI 8. CKD 3 - Stable. 9. HTN - Continue Ramipril and Coreg 10. HLD - LDL 122 - Zetia added to Statin. 11. DVT Px - SQ Heparin. 12. plan to d/c to SNF today
--- NOTE | 2018-08-24 12:16 | PN ---
Progress Note, Physician History of Present Illness: PULMONARY AWAKE,ALERT,COMFORTABLE,-RESP DISTRESS - Current Medication List Current Medications: Active Medications Aspirin (Asa -) 81 mg PO DAILY [facility] Last Admin: 08/24/18 10:20 Dose: 81 mg Atorvastatin Calcium (Lipitor -) 40 mg PO [facility] Last Admin: 08/23/18 22:52 Dose: 40 mg Carvedilol (Coreg -) 12.5 mg PO BID [facility] Last Admin: 08/24/18 10:20 Dose: 12.5 mg Clopidogrel Bisulfate (Plavix -) 75 mg PO DAILY [facility] Last Admin: 08/24/18 10:19 Dose: 75 mg Docusate Sodium (Colace -) 300 mg PO [facility] Last Admin: 08/23/18 22:52 Dose: Not Given Ezetimibe (Zetia -) 10 mg PO DAILY [facility] Last Admin: 08/24/18 10:20 Dose: 10 mg Gabapentin (Neurontin -) 600 mg PO TID [facility] Last Admin: 08/24/18 05:32 Dose: 600 mg Heparin Sodium (Porcine) (Heparin -) 5,000 unit SQ TID [facility] Last Admin: 08/24/18 05:32 Dose: 5,000 unit Insulin Aspart (Novolog Vial Sliding Scale -) 1 vial SQ [facility]; Protocol Last Admin: 08/24/18 11:37 Dose: Not Given Insulin Detemir (Levemir Vial) 35 units SQ [facility] Last Admin: 08/23/18 21:48 Dose: 35 unit Levothyroxine Sodium (Synthroid -) 88 mcg PO DAILY@0700 [facility] Last Admin: 08/24/18 06:14 Dose: 88 mcg Magnesium Hydroxide (Milk Of Magnesia -) 30 ml PO DAILY PRN PRN Reason: CONSTIPATION Last Admin: 08/21/18 06:27 Dose: 30 ml Nitroglycerin (Nitrostat -) 0.4 mg SL Q5M PRN PRN Reason: FOR CHEST PAIN Last Admin: 08/22/18 11:48 Dose: 0.4 mg Pantoprazole Sodium (Protonix -) 40 mg PO DAILY [facility] Last Admin: 08/24/18 10:19 Dose: 40 mg Polyethylene Glycol (Miralax (For Daily Use) -) 17 gm PO DAILY [facility] Last Admin: 08/24/18 10:20 Dose: 17 gm Ranolazine (Ranexa -) 500 mg PO BID [facility] Last Admin: 08/24/18 10:19 Dose: 500 mg Senna (Senna -) 2 tab PO HS [facility] Last Admin: 08/23/18 22:52 Dose: 2 tab - Objective Vital Signs: Vital Signs Temperature 98.2 F 08/24/18 06:00 Pulse Rate 55 L 08/24/18 06:00 Respiratory Rate 20 08/24/18 09:00 Blood Pressure 149/80 08/24/18 06:00 O2 Sat by Pulse Oximetry (%) 96 08/24/18 09:00 Constitutional: Yes: Well Nourished, Calm Eyes: Yes: WNL HENT: Yes: WNL Neck: Yes: WNL Cardiovascular: Yes: Regular Rate and Rhythm, S1, S2 Respiratory: Yes: Rales (BIBASIALR RALES) Gastrointestinal: Yes: Normal Bowel Sounds, Soft Extremities: Yes: WNL Edema: No Labs: CBC, BMP 08/24/18 06:30 08/24/18 06:30 INR, PTT INR 1.18 (0.83-1.09) H 08/21/18 07:00 - ....Imaging Chest X-ray: Image Reviewed (EZEQUIEL CONGESTION,EZEQUIEL EFFUSIONS) Problem List - Problems (1) Generalized pain Code(s): R52 - PAIN, UNSPECIFIED (2) CHF exacerbation Code(s): I50.9 - HEART FAILURE, UNSPECIFIED (3) NSTEMI (non-ST elevated myocardial infarction) Code(s): I21.4 - NON-ST ELEVATION (NSTEMI) MYOCARDIAL INFARCTION (4) Toe ulcer Code(s): L97.509 - NON-PRESSURE CHRONIC ULCER OTH PRT UNSP FOOT W UNSP SEVERITY (5) CAD (coronary artery disease) Code(s): I25.10 - ATHSCL HEART DISEASE OF [place] CORONARY ARTERY W/O ANG PCTRS Qualifiers: Qualified Code(s): I25.110 - Atherosclerotic heart disease of [place] coronary artery with unstable angina pectoris (6) Chronic combined systolic and diastolic heart failure Code(s): I50.42 - CHRONIC COMBINED SYSTOLIC AND DIASTOLIC HRT FAIL (7) Diabetic neuropathy Code(s): E11.40 - TYPE 2 DIABETES MELLITUS WITH DIABETIC NEUROPATHY, UNSP (8) GERD (gastroesophageal reflux disease) Code(s): K21.9 - GASTRO-ESOPHAGEAL REFLUX DISEASE WITHOUT ESOPHAGITIS (9) Hypothyroidism Code(s): E03.9 - HYPOTHYROIDISM, UNSPECIFIED Qualifiers: Qualified Code(s): E03.9 - Hypothyroidism, unspecified (10) S/P CABG (coronary artery bypass graft) Code(s): Z95.1 - PRESENCE OF AORTOCORONARY BYPASS GRAFT Assessment/Plan IMP DYSPNEA improved ACUTE ON CHRONIC CHF improved ASHD S/P CT ,CABG,NSTEMI MILD- MODERATE LV SYSTOLIC DYSFUNCTION + TROPONIN IDDM CHRONIC PAIN LEFT TOE OSTEO NEUROPATHY HYPOTHYROID HLD HAROLDO PLAN LASIX PER CARDIOLOGY O2 PLAVIX NITRATES DAILY WT ANALGESICS MONITOR LYTES,RENAL FUNCTION DR BABB Problem List - Problems (1) Generalized pain Code(s): R52 - PAIN, UNSPECIFIED (2) CHF exacerbation Code(s): I50.9 - HEART FAILURE, UNSPECIFIED (3) NSTEMI (non-ST elevated myocardial infarction) Code(s): I21.4 - NON-ST ELEVATION (NSTEMI) MYOCARDIAL INFARCTION (4) Toe ulcer Code(s): L97.509 - NON-PRESSURE CHRONIC ULCER OTH PRT UNSP FOOT W UNSP SEVERITY (5) CAD (coronary artery disease) Code(s): I25.10 - ATHSCL HEART DISEASE OF [place] CORONARY ARTERY W/O ANG PCTRS Qualifiers: Coronary Disease-Associated Artery/Lesion type: [place] artery [place] vs. transplanted heart: [place] heart Associated angina: with unstable angina Qualified Code(s): I25.110 - Atherosclerotic heart disease of [place] coronary artery with unstable angina pectoris (6) Chronic combined systolic and diastolic heart failure Code(s): I50.42 - CHRONIC COMBINED SYSTOLIC AND DIASTOLIC HRT FAIL (7) Diabetic neuropathy Code(s): E11.40 - TYPE 2 DIABETES MELLITUS WITH DIABETIC NEUROPATHY, UNSP (8) GERD (gastroesophageal reflux disease) Code(s): K21.9 - GASTRO-ESOPHAGEAL REFLUX DISEASE WITHOUT ESOPHAGITIS (9) Hypothyroidism Code(s): E03.9 - HYPOTHYROIDISM, UNSPECIFIED Qualifiers: Hypothyroidism type: unspecified Qualified Code(s): E03.9 - Hypothyroidism , unspecified (10) S/P CABG (coronary artery bypass graft) Code(s): Z95.1 - PRESENCE OF AORTOCORONARY BYPASS GRAFT
--- NOTE | 2018-08-24 13:26 | DS ---
Physical Exam: SUBJECTIVE: Patient seen and examined at bedside. Continues to c/o diffuse pain most notably at L shoulder, less anxious and agitated than previously. OBJECTIVE: Vital Signs Period Temp Pulse Resp BP Sys/Ibarra Pulse Ox Last 24 Hr 97 F-98.7 F 53-95 20-20 135-155/58-80 96-98 PHYSICAL EXAM GENERAL: A&Ox3, vocalized significant distress HEAD: NC/AT EYES: PERRLA, EOMI EARS, NOSE, THROAT: Ears normal, nares patent, oropharynx clear without exudates. Moist mucous membranes. NECK: Normal range of motion, supple without lymphadenopathy, JVD, or masses. LUNGS: CTA b/l HEART: RRR no m/r/g ABDOMEN: Soft, moderately distended, mild diffuse tenderness UPPER EXTREMITIES: 2+ pulses, warm, well-perfused. No cyanosis. No clubbing. No peripheral edema. LOWER EXTREMITIES: 2+ pulses, warm, well-perfused. No calf tenderness. No peripheral edema. Chronic tenderness of L great toe. 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 PSYCHIATRIC: Highly anxious SKIN: Warm, dry, normal turgor, no rashes or lesions noted LABS Laboratory Results - last 24 hr 08/23/18 08/23/18 08/23/18 09:40 15:00 15:00 WBC RBC Hgb Hct MCV MCH MCHC RDW Plt Count MPV Absolute Neuts (auto) Neutrophils % Lymphocytes % Monocytes % Eosinophils % Basophils % Nucleated RBC % PTT (Actin FS) Sodium 124 L Potassium 5.5 H Chloride 90 L Carbon Dioxide 28 Anion Gap 6 L BUN 36 H Creatinine 1.1 Creat Clearance w eGFR 47.43 POC Glucometer Random Glucose 275 H Serum Osmolality Calcium 9.0 Phosphorus Magnesium Triglycerides 170 H Cholesterol 197 Total LDL Cholesterol 121 H HDL Cholesterol 52 Urine Osmolality 613 Ur Random Sodium < 18 L Ur Random Potassium 51.3 Ur Random Chloride 18 L Urine Creatinine 08/23/18 08/23/18 08/23/18 15:00 15:00 15:00 WBC RBC Hgb Hct MCV MCH MCHC RDW Plt Count MPV Absolute Neuts (auto) Neutrophils % Lymphocytes % Monocytes % Eosinophils % Basophils % Nucleated RBC % PTT (Actin FS) Sodium Potassium Chloride Carbon Dioxide Anion Gap BUN Creatinine Creat Clearance w eGFR POC Glucometer Random Glucose Serum Osmolality Calcium Phosphorus Magnesium Triglycerides Cholesterol Total LDL Cholesterol HDL Cholesterol Urine Osmolality Cancelled Ur Random Sodium Cancelled Ur Random Potassium Ur Random Chloride Urine Creatinine 52.0 08/23/18 08/23/18 08/23/18 15:00 16:00 16:37 WBC RBC Hgb Hct MCV MCH MCHC RDW Plt Count MPV Absolute Neuts (auto) Neutrophils % Lymphocytes % Monocytes % Eosinophils % Basophils % Nucleated RBC % PTT (Actin FS) Sodium 127 L Potassium 5.2 H Chloride 91 L Carbon Dioxide 32 Anion Gap 4 L BUN 31 H Creatinine 1.2 Creat Clearance w eGFR 42.90 POC Glucometer 215 Random Glucose 217 H Serum Osmolality Calcium 8.8 Phosphorus Magnesium Triglycerides Cholesterol Total LDL Cholesterol HDL Cholesterol Urine Osmolality Ur Random Sodium Ur Random Potassium Ur Random Chloride Urine Creatinine Cancelled 08/23/18 08/23/18 08/24/18 21:44 22:30 05:19 WBC RBC Hgb Hct MCV MCH MCHC RDW Plt Count MPV Absolute Neuts (auto) Neutrophils % Lymphocytes % Monocytes % Eosinophils % Basophils % Nucleated RBC % PTT (Actin FS) Sodium 128 L Potassium 5.2 H Chloride 92 L Carbon Dioxide 32 Anion Gap 4 L BUN 35 H Creatinine 1.1 Creat Clearance w eGFR 47.43 POC Glucometer 139 63 Random Glucose 137 H Serum Osmolality Calcium 8.9 Phosphorus Magnesium Triglycerides Cholesterol Total LDL Cholesterol HDL Cholesterol Urine Osmolality Ur Random Sodium Ur Random Potassium Ur Random Chloride Urine Creatinine 08/24/18 08/24/18 08/24/18 06:30 06:30 06:30 WBC 8.8 RBC 3.52 L Hgb 10.5 L Hct 31.9 L MCV 90.6 MCH 29.9 MCHC 33.0 RDW 13.8 Plt Count 263 MPV 8.9 Absolute Neuts (auto) 5.3 Neutrophils % 60.5 D Lymphocytes % 27.7 D Monocytes % 10.2 D Eosinophils % 1.2 D Basophils % 0.4 Nucleated RBC % 0 PTT (Actin FS) 33.7 Sodium 130 L Potassium 4.8 Chloride 94 L Carbon Dioxide 32 Anion Gap 4 L BUN 35 H Creatinine 1.2 Creat Clearance w eGFR 42.90 POC Glucometer Random Glucose 63 L Serum Osmolality 283 Calcium 8.4 L Phosphorus 3.4 Magnesium 2.6 H Triglycerides Cholesterol Total LDL Cholesterol HDL Cholesterol Urine Osmolality Ur Random Sodium Ur Random Potassium Ur Random Chloride Urine Creatinine 08/24/18 11:34 WBC RBC Hgb Hct MCV MCH MCHC RDW Plt Count MPV Absolute Neuts (auto) Neutrophils % Lymphocytes % Monocytes % Eosinophils % Basophils % Nucleated RBC % PTT (Actin FS) Sodium Potassium Chloride Carbon Dioxide Anion Gap BUN Creatinine Creat Clearance w eGFR POC Glucometer 137 Random Glucose Serum Osmolality Calcium Phosphorus Magnesium Triglycerides Cholesterol Total LDL Cholesterol HDL Cholesterol Urine Osmolality Ur Random Sodium Ur Random Potassium Ur Random Chloride Urine Creatinine HOSPITAL COURSE: Date of Admission:08/20/18 Patient is an 83 y/o F w/ PMHx HTN, IDDM, HLD, CAD, CHF, GERD, neuropathy, chronic diffuse pain, hypothyroidism, chronic L great toe osteomyelitis p/w chief complaint of overall chronic body pain worsening over prior three days, was notably hyperglycemic upon presentation and additionally complained of new onset dyspnea while in the ED. CT a/p detected b/l pleural effusions. Serial troponins and EKG indicated an NSTEMI. Cardiology and pulmonology were consulted , patient was treated with heparin gtt until peaking of troponins and optimization of cardiac medications. Hospital course was complicated by development of significant hyponatremia and hyperkalemia, for which nephrology was consulted. Osm studies and SPEP/UPEP/light chains were sent. Patient qualified for home O2 by pre-/post- results and required SNF placement d/t restricted ambulation. Electrolytes were medically treated and normalized. Patient was discharged to SNF with optimized medications, with outpatient referrals to primary care and cardiology, and followup labs for electrolyte abnormalities. Significant findings of paraprotein studies will be communicated to patient's outpatient providers if and when they are reported. Date of Discharge: 08/24/18 Minutes to complete discharge: 40 Discharge Summary Reason For Visit: ACUTE ON CHRONIC CHF,CONSTIPATION,ECOLI ESBL Current Active Problems CHF exacerbation (Acute) Generalized pain (Acute) NSTEMI (non-ST elevated myocardial infarction) (Acute) Condition: Stable - Instructions Diet, Activity, Other Instructions: You were hospitalized for a heart attack. You were seen and evaluated by cardiology and your cardiac medications were optimized. You are being discharged to a rehabilitation facility to assist you in regaining your strength and functionality. Additionally, you were noted to have abnormalities in your sodium and potassium levels which required further testing to ascertain the cause. These tests (called SPEP, UPEP, and urine light chains) will take time to be finalized; the results will be provided to your doctors. Medication instructions are provided below. Referrals have been provided for you to follow up as an outpatient with your transition advisor and primary medical doctor. Please keep these appointments within a week of discharge. If you experience any new or worsening chest pain, shortness of breath, fever, chills, or any other new or concerning symptoms, please return to the Emergency Department. INSTRUCTIONS FOR SNF STAFF: -Repeat BMP 2 days from hospital discharge to assess sodium/potassium -Restrict free water to 1000ccs -ASA 81 PO daily -Plavix 75 PO daily -Coreg 12.5 PO BID -Ranexa 500 PO BID -Lipitor 40 PO HS -Zetia 10 PO daily -Lasix 20 PO daily -Levemir 35U HS -Sliding Scale Insulin -Nitroglycerin 0.4 SL PRN for anginal pain -Levothyroxine 88mcg daily at 7am -Protonix 40 PO daily -Gabapentin 600 PO TID -Senna 2 tab PO HS -Colace 300 PO HS -Milk of Magnesia 30ml daily -Miralax daily -HOLD home PRATIBHA inhibitors Referrals: Rajesh Montes De Oca MD [Other] Luz Kaur MD [Primary Care Provider] - Disposition: [facility] - Home Medications Comprehensive Discharge Medication List: Ambulatory Orders Aspirin [ASA -] 81 mg PO DAILY 08/20/17 Carvedilol [Coreg -] 12.5 mg PO BID 08/20/17 Levothyroxine [Synthroid -] 88 mcg PO DAILY 08/20/17 Ranolazine [Ranexa] 500 mg PO BID 08/20/17 Atorvastatin Ca [Lipitor] 40 mg PO HS #30 tablet 09/21/17 Repaglinide [Prandin -] 2 mg PO DAILY 11/22/17 Gabapentin [Neurontin -] 600 mg PO TID 02/25/18 Insulin Detemir [Levemir Flextouch] 35 unit SQ HS 02/25/18 Magnesium Hydrox 2400MG/30Ml [Milk of Magnesia -] 30 ml PO DAILY PRN cup Clopidogrel Bisulfate [Plavix -] 75 mg PO DAILY tablet 08/24/18 Docusate Sodium [Colace -] 300 mg PO HS capsule 08/24/18 Ezetimibe [Zetia -] 10 mg PO DAILY tablet 08/24/18 Furosemide [Lasix -] 20 mg PO DAILY tablet 08/24/18 Insulin (Levemir) [Levemir Vial] 35 units SQ HS units 08/24/18 Insulin Sliding Scale [Novolog Vial Sliding Scale -] 1 vial SQ ACHS units 08/24 Nitroglycerin Sublingual [Nitrostat -] 0.4 mg SL Q5M PRN tab 08/24/18 Pantoprazole Sodium [Protonix -] 40 mg PO DAILY tablet.ec 08/24/18 Polyethylene Glycol 3350 [Miralax 119 gm Btl -] 17 gm PO DAILY bottle 08/24/18 Sennosides [Senna -] 2 tab PO HS tablet 08/24/18 This patient is new to me today: No Emergency Visit: No Critical Care patient: No - Discharge Referral Referred to [facility] No
[2018-08-24 13:31] VITALS: PULSE 54
[2018-08-24 15:26] VITALS: BP 113/49; TEMP 98.1
[2018-08-26 05:15] LABS: KAPPA/LAMBDA RATIO, UR 11.38 (2.04-10.37)
[2018-08-26 15:16] LABS: TOTAL PROTEIN, URINE 56.9 mg/dL (Not Estab.)
== END 2018-08-24 16:55 | DRG 280 ==
LOC: JER 09:19 → JERBED 17:44 → J4S 08-19 00:53 → OBSVTOIN 08-20 10:22
PROVIDERS: ATTEND Internal Medicine
DX: I21.4 Non-ST elevation (NSTEMI) myocardial infarction (principal); I50.43 Acute on chronic combined systolic (congestive) and diastolic (congestive) heart failure; E87.1 Hypo-osmolality and hyponatremia; I13.0 Hypertensive heart and chronic kidney disease with heart failure and stage 1 through stage 4 chronic kidney disease, or unspecified chronic kidney disease; N17.9 Acute kidney failure, unspecified; M86.672 Other chronic osteomyelitis, left ankle and foot; K21.9 Gastro-esophageal reflux disease without esophagitis; E78.5 Hyperlipidemia, unspecified; I25.10 Atherosclerotic heart disease of native coronary artery without angina pectoris; E03.9 Hypothyroidism, unspecified; Z79.4 Long term (current) use of insulin; K59.00 Constipation, unspecified; M25.512 Pain in left shoulder; E11.22 Type 2 diabetes mellitus with diabetic chronic kidney disease; G89.29 Other chronic pain; E11.40 Type 2 diabetes mellitus with diabetic neuropathy, unspecified; E11.65 Type 2 diabetes mellitus with hyperglycemia; N18.3 Chronic kidney disease, stage 3 (moderate); Z86.73 Personal history of transient ischemic attack (TIA), and cerebral infarction without residual deficits; E87.5 Hyperkalemia; E11.69 Type 2 diabetes mellitus with other specified complication
CPT/HCPCS: 36415; 71045-TC-FY; 71046-TC-FY; 73030-TC-LT-FY; 73502-TC-RT-FY; 74176-TC; 80048; 80053; 80061; 81003; 82436; 82570; 82962; 83036; 83721; 83735; 83880; 83883; 83930; 83935; 84100; 84133; 84155; 84156; 84157; 84165; 84300; 84439; 84443; 84484; 85025; 85027; 85610; 85730; 87086; 93306-TC; 94640; 94761; 97116-GP; 97161-GP; 99284-25; G0378; J0131; J1644; J7030

== ENCOUNTER 2018-08-28 10:15 | Emergency (ER) | payer MEDICARE, OTHER ==
[2018-08-28 10:48] VITALS: BP 117/60; PULSE 66; BMI 27.9
[2018-08-28 11:23] LABS: HEMATOCRIT 36.4 % (32.4-45.2); HEMOGLOBIN 12.2 GM/dL (10.7-15.3); MCH 30.6 pg (25.7-33.7); MCHC 33.6 g/dl (32.0-36.0); MEAN CELL VOLUME 91.1 fl (80-96); MEAN PLT VOLUME 8.2 fl (7.5-11.1); PLATELET COUNT 290 K/MM3 (134-434); RDW 14.7 % (11.6-15.6); WHITE BLOOD COUNT 9.9 K/mm3 (4.0-10.0)
[2018-08-28 11:40] LABS: URINE APPEARANCE CLOUDY; URINE BILIRUBIN NEGATIVE (NEGATIVE); URINE COLOR YELLOW; URINE GLUCOSE (UA) 2+ (NEGATIVE); URINE KETONE NEGATIVE (NEGATIVE); URINE LEUK ESTERASE NEGATIVE (NEGATIVE); URINE NITRITE NEGATIVE (NEGATIVE); URINE PROTEIN NEGATIVE (NEGATIVE)
[2018-08-28 11:49] LABS: ALK PHOS 145 U/L (45-117); ANION GAP 6 MMOL/L (8-16); BILIRUBIN,TOTAL 0.4 mg/dL (0.2-1); BLOOD UREA NITROGEN 17 mg/dL (7-18); CALCIUM 8.7 mg/dL (8.5-10.1); CHLORIDE 97 mmol/L (98-107); CO2 33 mmol/L (21-32); CREATININE 1.2 mg/dL (0.55-1.3); GLUCOSE,RANDOM 100 mg/dL (74-106); N-TERMINAL BNP 3695.2 pg/ml (5-450); POTASSIUM 4.6 mmol/L (3.5-5.1); SGOT/AST 21 U/L (15-37); SGPT/ALT 58 U/L (13-61); SODIUM 136 mmol/L (136-145); TOT PROT 6.9 g/dl (6.4-8.2)
[2018-08-28 11:52] LABS: INR 1.15 (0.83-1.09); PROTHROMBIN TIME (PATIENT) 13.6 SEC (9.7-13.0)
--- NOTE | 2018-08-28 11:52 | PDOC ---
History of Present Illness - General Chief Complaint: Chest Pain Stated Complaint: CHEST PAIN Time Seen by Provider: 08/28/18 10:36 - History of Present Illness Initial Comments: The pt is an 83F w/ a history of HTN, IDDM, HLD, CAD s/p stent, CHF, GERD, neuropathy, angina, hypothyroidism, and chronic L great toe osteomyelitis who presents from [facility] for SOB reported there today. The pt reports feeling short of breath this morning but now feels improved since being placed on O2. She denies change in her typical angina. Denies fevers/chills, REYNA, vision changes, any change in her chest pain, current SOB, abdominal pain, N/V Pt was recently discharged on 08/28/18 after being admitted for an NSTEMI. At the time of admission the pt also reported dyspnea and when discharged the patient qualified for home O2 by pre-/post- results and required SNF placement 2/2 restricted ambulation. 08/28/18 12:11 Past History - Past Medical History Allergies/Adverse Reactions: Allergies Allergy/AdvReac Type Severity Reaction Status Date / Time No Known Drug Allergies Allergy Verified 08/18/18 10:02 Home Medications: Ambulatory Orders Aspirin [ASA -] 81 mg PO DAILY 08/20/17 Carvedilol [Coreg -] 12.5 mg PO BID 08/20/17 Levothyroxine [Synthroid -] 88 mcg PO DAILY 08/20/17 Ranolazine [Ranexa] 500 mg PO BID 08/20/17 Atorvastatin Ca [Lipitor] 40 mg PO HS #30 tablet 09/21/17 Repaglinide [Prandin -] 2 mg PO DAILY 11/22/17 Gabapentin [Neurontin -] 600 mg PO TID 02/25/18 Insulin Detemir [Levemir Flextouch] 35 unit SQ HS 02/25/18 Magnesium Hydrox 2400MG/30Ml [Milk of Magnesia -] 30 ml PO DAILY PRN cup Clopidogrel Bisulfate [Plavix -] 75 mg PO DAILY tablet 08/24/18 Docusate Sodium [Colace -] 300 mg PO HS capsule 08/24/18 Ezetimibe [Zetia -] 10 mg PO DAILY tablet 08/24/18 Furosemide [Lasix -] 20 mg PO DAILY tablet 08/24/18 Insulin (Levemir) [Levemir Vial] 35 units SQ HS units 08/24/18 Insulin Sliding Scale [Novolog Vial Sliding Scale -] 1 vial SQ ACHS units 08/24 Nitroglycerin Sublingual [Nitrostat -] 0.4 mg SL Q5M PRN tab 08/24/18 Pantoprazole Sodium [Protonix -] 40 mg PO DAILY tablet.ec 08/24/18 Polyethylene Glycol 3350 [Miralax 119 gm Btl -] 17 gm PO DAILY bottle 08/24/18 Sennosides [Senna -] 2 tab PO HS tablet 08/24/18 Anemia: No Asthma: No Cancer: No Cardiac Disorders: Yes CVA: Yes COPD: No CHF: Yes DVT: No Dementia: No Diabetes: Yes GI Disorders: Yes (Ulcers) Disorders: (ulcers) HTN: Yes Hypercholesterolemia: Yes Liver Disease: No Seizures: No Thyroid Disease: No - Surgical History Abdominal Surgery: No Appendectomy: No Cardiac Surgery: Yes (triple bypass) Cholecystectomy: No Lung Surgery: No Neurologic Surgery: No Orthopedic Surgery: Yes (RT ELBOW SX) - Immunization History Immunization Up to Date: No - Suicide/Smoking/Psychosocial Hx Smoking Status: No Smoking History: Never smoked Have you smoked in the past 12 months: No Number of Cigarettes Smoked Daily: 0 Hx Alcohol Use: No Drug/Substance Use Hx: No Substance Use Type: None Hx Substance Use Treatment: No Review of Systems - Review of Systems Able to Perform ROS?: Yes Comments:: GENERAL/CONSTITUTIONAL: No fever or chills. No weakness HEAD, EYES, EARS, NOSE AND THROAT: No change in vision. No ear pain or discharge. No sore throat CARDIOVASCULAR: Chronic chest pain RESPIRATORY: Denies cough, hemoptysis GASTROINTESTINAL: No nausea, vomiting, constipation GENITOURINARY: No dysuria, frequency, or change in urination MUSCULOSKELETAL: No joint or muscle swelling or pain. No neck or back pain SKIN: No rash NEUROLOGIC: No headache, vertigo, loss of consciousness, or change in strength/ sensation ENDOCRINE: No increased thirst. No abnormal weight change HEMATOLOGIC/LYMPHATIC: No anemia, easy bleeding, or history of blood clots ALLERGIC/IMMUNOLOGIC: No hives or skin allergy 08/28/18 11:45 *Physical Exam - Vital Signs Last Vital Signs Temp Pulse Resp BP Pulse Ox 99.8 F H 66 17 117/60 94 L 08/28/18 10:45 08/28/18 10:45 08/28/18 10:45 08/28/18 10:45 08/28/18 10:45 - Physical Exam Comments: GENERAL: Awake, alert, and oriented to person/place/time, in no acute distress HEAD: No signs of trauma, normocephalic, atraumatic EYES: PERRLA, EOMI, sclera anicteric, conjunctiva clear ENT: Hearing grossly normal, nares patent, oropharynx clear without exudates. Moist mucosa LUNGS: No distress, speaks full sentences, equal breath sounds b/l HEART: Regular rate and rhythm, normal S1 and S2, no murmurs appreciated, peripheral pulses normal and equal bilaterally ABDOMEN: Soft, nontender, normoactive bowel sounds. No guarding, no rebound EXTREMITIES: Normal inspection, Normal range of motion, no edema. No clubbing or cyanosis NEUROLOGICAL: Cranial nerves II through XII grossly intact. Decreased sensation to light touch in BLE to mid-gage (chronic) SKIN: Warm, Dry 08/28/18 11:52 ED Treatment Course - LABORATORY CBC & Chemistry Diagram: 08/28/18 11:00 08/28/18 11:00 - ADDITIONAL ORDERS Additional order review: 08/28/18 11:00 RBC 4.00 MCV 91.1 MCHC 33.6 RDW 14.7 MPV 8.2 - RADIOLOGY Radiology Studies Ordered: Category Date Time Status CHEST X-RAY PORTABLE* [RAD] Stat Radiology 08/28/18 10:58 Completed Medical Decision Making - Medical Decision Making The pt is an 83F w/ a history of CAD s/p stent, angina, T2DM who presents from [facility] for evaluation of shortness of breath. ED Course Pt presented from [facility] w/ SOB from [facility]. Pt on O2 on arrival and without symptoms. Ddx: ACS, PNA, PE, infection/sepsis Labs sent ECG w/ T-wave inversions in I & aVL; similar to previous; HR 67; QTc 443 Pt w/ SpO2 88-90% on RA and 96-100% on 2L NC No leukocytosis No anemia Lytes wnl No HAROLDO Trop I neg, improved from D/C CXR w/ improvement s/p D/C 08/28/18 12:04 Per pt's daughter and grandaughter, the pt is chronically short of breath and they have been told she needs O2 at home. Per the family, the pt will report SOB both at rest and w/ exertion. 08/28/18 13:55 Second Trop I sent Will obtain CTA Chest to evaluate for PE -Risks/benefits of study discussed w/ patient 08/28/18 14:43 Trop neg x2 CTA pending 08/28/18 16:46 Pt w/ previously documented SpO2 92-96% on 3L NC (during last admission) 08/28/18 17:11 *DC/Admit/Observation/Transfer Diagnosis at time of Disposition: Shortness of breath Dementia Qualifiers: Dementia type: unspecified type Dementia behavioral disturbance: without behavioral disturbance Qualified Code(s): F03.90 - Unspecified dementia without behavioral disturbance - Discharge Dispostion Disposition: HOME Condition at time of disposition: Stable Decision to Admit order: No - Referrals Referrals: Raina Hardy MD [Staff Physician] - - Patient Instructions Printed Discharge Instructions: DI for Shortness of Breath Additional Instructions: You were seen in the Emergency Department for evaluation of shortness of breath. You labs overall at baseline/unremarkable. Your CT scan was negative for blood clot. Follow up with your primary care provider within the next 1-5 days. Be sure to bring up the possible need for oxygen at home. Return to the Emergency Department if you develop fevers/chills, worsening symptoms, change in your chest pain, trouble breathing, vomiting/diarrhea, or any new/concerning symptoms. - Post Discharge Activity
--- NOTE | 2018-08-28 14:19 | PDOC ---
Attending Attestation - Resident Resident Name: Michael Hawthorne - ED Attending Attestation I have performed the following: I have examined & evaluated the patient, The case was reviewed & discussed with the resident, I agree w/resident's findings & plan, Exceptions are as noted - HPI HPI: 08/28/18 14:12 83 F with h/o HTN, IDDM, HLD, CAD s/p stent, CHF, GERD, neuropathy, hypothyroidism, and chronic L great toe osteomyelitis who presents from [facility] for transient episode of SOB. Pt states that she experienced a few minutes of difficulty breathing not associated with diaphoresis or nausea. This resolved on its own and has not recurred. Pt was recently admitted for NSTEMI and endorses chronic chest pain that is unchanged. Denies any leg swelling. Denies orthopnea or WOODARD. - Physicial Exam PE: 08/28/18 14:15 GENERAL: Awake, alert, and fully oriented, in no acute distress. HEAD: No signs of trauma EYES: PERRLA, EOMI, sclera anicteric, conjunctiva clear ENT: Auricles normal inspection, hearing grossly normal, nares patent, oropharynx clear without exudates. Moist mucosa NECK: Nontender, no stepoffs, Normal ROM, supple, no lymphadenopathy, JVD, or masses LUNGS: Breath sounds equal, clear to auscultation bilaterally. No wheezes, and no crackles HEART: Regular rate and rhythm, normal S1 and S2, no murmurs, rubs or gallops ABDOMEN: Soft, nontender, normoactive bowel sounds. No guarding, no rebound. No masses EXTREMITIES: Normal range of motion, no edema. No clubbing or cyanosis. No cords, erythema, or tenderness NEUROLOGICAL: Cranial nerves II through XII intact. 5/5 strength and sensation in all extremities, Normal speech, normal gait, normal cerebellar function SKIN: Warm, Dry, normal turgor, no rashes or lesions noted. - Medical Decision Making 08/28/18 14:15 83 F with transient episode of SOB at [facility], now resolved. Pt with no chest pain to suggest ACS. However, given recent NSTEMI, will r/o ACS with trops. Pt with no sign of DVT on exam but with recent hospitalization, will r/o PE. - Labs, trop - CTA chest 08/28/18 18:16 Labs wnl CTA negative for PE/dissection bilateral upper lobe groundglass opacities seen, likely chronic in nature. Low suspicion for PNA as pt afebrile, without cough. Currently not SOB, denies CP. Pt is on 2L O2 in ED with 100% O2 sat. Pt was on 3L O2 prior to previous discharge last week, uses PRN O2 at [place]. Pt is well appearing, with normal vitals. Clinically stable for DC at this time. I discussed the physical exam findings, ancillary test results and final diagnoses with the patient. I answered all of the patient's questions. The patient was satisfied with the care received and felt comfortable with the discharge plan and treatment plan. The patient agrees to follow up with the primary care physician within 24-72 hours.
[2018-08-28 14:25] VITALS: TEMP 98.6
--- NOTE | 2018-08-29 15:35 | EKG ---
Test Reason : Blood Pressure : / mmHG Vent. Rate : 067 BPM Atrial Rate : 067 BPM P-R Int : 178 ms QRS Dur : 088 ms QT Int : 420 ms P-R-T Axes : 059 015 108 degrees QTc Int : 443 ms NORMAL SINUS RHYTHM ABNORMAL ECG WHEN COMPARED WITH ECG OF 11-AUG-2018 11:24, T WAVE VARIATION Confirmed by RYAN BARBOSA MD ([id number]) on 08/29/2018 3:34:41 PM Referred By: Confirmed By:RYAN BARBOSA MD
== END 2018-08-28 19:45 ==
LOC: JER 10:15
DX: R06.02 Shortness of breath (principal); I21.4 Non-ST elevation (NSTEMI) myocardial infarction; I25.119 Atherosclerotic heart disease of native coronary artery with unspecified angina pectoris; I11.0 Hypertensive heart disease with heart failure; Z95.5 Presence of coronary angioplasty implant and graft; E78.5 Hyperlipidemia, unspecified; K21.9 Gastro-esophageal reflux disease without esophagitis; G62.9 Polyneuropathy, unspecified; E11.9 Type 2 diabetes mellitus without complications; Z79.4 Long term (current) use of insulin
CPT/HCPCS: 36415; 71045-TC-FY; 71275-TC; 80053; 81003; 83880; 84484; 85027; 85610; 85730; 87086; 93005; 93010; 99285-25

== ENCOUNTER 2018-09-08 02:08 | Observation (INO) | payer MEDICARE, OTHER ==
--- NOTE | 2018-09-08 02:30 | PDOC ---
History of Present Illness - General Stated Complaint: CHEST PAIN Time Seen by Provider: 09/08/18 02:17 - History of Present Illness Initial Comments: 09/08/18 02:18 83 yo F with h/o HTN, IDDM, HLD, NSTEMI CAD s/p stent placment, CABG, CHF, GERD , neuropathy, angina, chronic L great toe osteomeyleitis BIBEMS from [facility] with SOB. Per EMS patient recieved Nitro x 3 at [facility] with improvement in chest pain. Patient noted to be 89 % O2 RA at [facility], improved to 96% on 2 L NC. Patient typically 2-3 L NC O2 at baseline. Patient with PRN O2 at care home. Patient reports SOB beginning this evening following removal of her home oxyegn 2 L NC. Has had home O2 for 1 week. Otherwise denies SOB today. Patient endorses years of ongoing chronic diffuse chest pain. Denies increased severity or change in nature of current chest pain. Last seen [facility] ED (08/28/18) with similar complaint including SOB, and chest pain. CTA neg r/o PE. labs and trop unremarkable. chronic ground glass opacities BL upper lobes. Patient was noted. Prior admission NSTEMI (08/09-09/09) Echo 08/19/18 with decreased LVEF 40-45% and AK in old LAD infarct.F/w Cardiology Dr. Fournier. Patient denies REYNA, vision change, palpitations, cough, wheezing, orthopena, PND , leg swelling/pain, N/V, F,C, urinary complaints, hematuria, BPR, abdominal pain, diarrhea, constipation, lightheadedness, weakness, sensory changes. PMHx: as noted above ROS: as noted Allergies: NKDA Past History - Past Medical History Allergies/Adverse Reactions: Allergies Allergy/AdvReac Type Severity Reaction Status Date / Time No Known Drug Allergies Allergy Verified 09/08/18 02:24 Home Medications: Ambulatory Orders Aspirin [ASA -] 81 mg PO DAILY 08/20/17 Carvedilol [Coreg -] 12.5 mg PO BID 08/20/17 Levothyroxine [Synthroid -] 88 mcg PO DAILY 08/20/17 Ranolazine [Ranexa] 500 mg PO BID 08/20/17 Atorvastatin Ca [Lipitor] 40 mg PO HS #30 tablet 09/21/17 Gabapentin [Neurontin -] 600 mg PO TID 02/25/18 Insulin Detemir [Levemir Flextouch] 35 unit SQ HS 02/25/18 Magnesium Hydrox 2400MG/30Ml [Milk of Magnesia -] 30 ml PO DAILY PRN cup Clopidogrel Bisulfate [Plavix -] 75 mg PO DAILY tablet 08/24/18 Docusate Sodium [Colace -] 300 mg PO HS capsule 08/24/18 Ezetimibe [Zetia -] 10 mg PO DAILY tablet 08/24/18 Furosemide [Lasix -] 20 mg PO DAILY tablet 08/24/18 Insulin Sliding Scale [Novolog Vial Sliding Scale -] 1 vial SQ ACHS units 08/24 Nitroglycerin Sublingual [Nitrostat -] 0.4 mg SL Q5M PRN tab 08/24/18 Pantoprazole Sodium [Protonix -] 40 mg PO DAILY tablet.ec 08/24/18 Polyethylene Glycol 3350 [Miralax 119 gm Btl -] 17 gm PO DAILY bottle 08/24/18 Sennosides [Senna -] 2 tab PO HS tablet 08/24/18 Acetaminophen 650 mg PO DAILY PRN MDD 1950 09/08/18 Anemia: No Asthma: No Cancer: No Cardiac Disorders: Yes CVA: Yes COPD: No CHF: Yes DVT: No Dementia: No Diabetes: Yes GI Disorders: Yes (Ulcers) Disorders: (ulcers) HTN: Yes Hypercholesterolemia: Yes Liver Disease: No Seizures: No Thyroid Disease: No - Surgical History Abdominal Surgery: No Appendectomy: No Cardiac Surgery: Yes (triple bypass) Cholecystectomy: No Lung Surgery: No Neurologic Surgery: No Orthopedic Surgery: Yes (RT ELBOW SX) - Immunization History Immunization Up to Date: No - Suicide/Smoking/Psychosocial Hx Smoking Status: No Smoking History: Never smoked Have you smoked in the past 12 months: No Number of Cigarettes Smoked Daily: 0 Hx Alcohol Use: No Drug/Substance Use Hx: No Substance Use Type: None Hx Substance Use Treatment: No Review of Systems - Review of Systems Comments:: 09/08/18 02:30 GENERAL/CONSTITUTIONAL: No fever or chills. No weakness. HEAD, EYES, EARS, NOSE AND THROAT: No change in vision. No ear pain or discharge. No sore throat. CARDIOVASCULAR: + chest pain and shortness of breath RESPIRATORY: No cough, wheezing, or hemoptysis. GASTROINTESTINAL: No nausea, vomiting, diarrhea or constipation. GENITOURINARY: No dysuria, frequency, or change in urination. MUSCULOSKELETAL: No joint or muscle swelling or pain. No neck or back pain. SKIN: No rash NEUROLOGIC: No headache, vertigo, loss of consciousness, or change in strength/ sensation. ENDOCRINE: No increased thirst. No abnormal weight change HEMATOLOGIC/LYMPHATIC: No anemia, easy bleeding, or history of blood clots. ALLERGIC/IMMUNOLOGIC: No hives or skin allergy. *Physical Exam - Physical Exam Comments: 09/08/18 02:30 GENERAL: Awake, alert, and fully oriented, in no acute distress HEAD: No signs of trauma, normocephalic, atraumatic EYES: PERRLA, EOMI, sclera anicteric, conjunctiva clear ENT: Hearing grossly normal, nares patent, oropharynx clear without exudates. Moist mucosa NECK: Normal ROM, supple, no lymphadenopathy, JVD, or masses LUNGS:Coarse lung sounds and rhonci BL lung bases. No distress, speaks full sentences. HEART: Regular rate and rhythm, normal S1 and S2, no murmurs, rubs or gallops, peripheral pulses normal and equal bilaterally. ABDOMEN: Soft, nontender, normoactive bowel sounds. No guarding, no rebound. No masses EXTREMITIES : Normal inspection, Normal range of motion, no edema. No clubbing or cyanosis. NEUROLOGICAL: Cranial nerves II through XII grossly intact. Normal speech, no focal sensorimotor deficits SKIN: Warm, Dry, normal turgor, no rashes or lesions noted ED Treatment Course - LABORATORY CBC & Chemistry Diagram: 09/08/18 02:56 09/08/18 02:56 Medical Decision Making - Medical Decision Making 09/08/18 03:13 83 yo F with h/o HTN, IDDM, HLD, NSTEMI CAD s/p stent placment, CABG, CHF, GERD , neuropathy, angina, chronic L great toe osteomeyleitis BIBEMS from [facility] with SOB beginning 09/07/18 at 10-11 PM. Endorsed chest pain received Nitro x 3 at [facility] with improvement in chest pain. Patient noted to be 89 % O2 RA at [facility], improved to 96% on 2 L NC. Patient typically 2-3 L NC O2 at baseline. Patient with PRN O2 at care home. Patient reports SOB beginning this evening following removal of home O2 while sleeping d/t discomfort. Vitals wnl, AF, A&Ox3, 97 % O2 on 2 L NC. Physical exam with rales BL Lung bases. ACS/ IL r/o. Low risk PE weils. Will consider PNA, pleural effusion, asthma/COPD, CHF. ED Course: 09/08/18 03:16 EKG: NSR with TWI V2-V3, I, AvL. Similiar to interval EKG 08-28-18. Nml axis and interval duration. 09/08/18 04:44 Laboratory Tests 09/08/18 09/08/18 02:56 02:56 BUN 23 H Creatinine 1.4 H Random Glucose 357 H* Alkaline Phosphatase 164 H Troponin I < 0.02 CXR: increased congestive changes compared to interval CXR ( 09/09) Plan to admit acute CHF Patient endorsed to medicine Admit tele/obs *DC/Admit/Observation/Transfer Diagnosis at time of Disposition: Shortness of breath CHF (congestive heart failure) Qualifiers: Heart failure type: unspecified Heart failure chronicity: acute on chronic Qualified Code(s): I50.9 - Heart failure, unspecified - Discharge Dispostion Condition at time of disposition: Stable Decision to Admit order: Yes - Referrals Referrals: Raina Hardy MD [Primary Care Provider] - Horacio Oliver MD [Staff Physician] - - Patient Instructions Printed Discharge Instructions: DI for Atypical Chest Pain Additional Instructions: Please return to the emergency department with any new or worsening symptoms or concerns. Please follow up with your primary care physician and taper printed circuit layout within 72 hours. - Post Discharge Activity - Attestations Physician Attestion: 09/08/18 02:32 Please return to the emergency department with any new or worsening symptoms or concerns. Please follow up with your primary care physician within 72 hours.
--- NOTE | 2018-09-08 03:16 | PDOC ---
Attending Attestation - Resident Resident Name: Kwabena Horta - ED Attending Attestation I have performed the following: I have examined & evaluated the patient, The case was reviewed & discussed with the resident, I agree w/resident's findings & plan - HPI HPI: 09/08/18 03:16 83 F with h/o HTN, IDDM, HLD, CAD s/p stent, CHF, GERD, neuropathy, hypothyroidism, and chronic L great toe osteomyelitis presenting with SOB, episode occurring when she took off her oxygen when it was uncomfortable on her face. Via EMS, she received Nitro x 3 at [facility] with improvement in chest pain. Patient noted to be 89 % O2 RA at [facility], improved to 96% on 2 L NC which she is to use for her chronic dyspnea. Patient typically 2-3 L NC O2 at baseline. Patient with PRN O2 at [facility]. Newly placed on her home O2 regimen, Has had home O2 for 1 week. Patient endorses years of ongoing chronic SOB and chest pain. Denies increased severity or change in nature of current chest pain. Of note, has had previous admissions for NSTEMI, she was Last seen [facility] ED (12/09) with similar complaint including SOB, and chest pain. CTA neg r/o PE. labs and trop unremarkable. chronic ground glass opacities BL upper lobes. Patient was noted. Prior admission NSTEMI (08/09-09/09) Echo 08/19/18 with decreased LVEF 40-45% and AK in old LAD infarct. F/w Cardiology Dr. Fournier. PMD: Luz Kaur Currently at [facility] 09/08/18 03:38 09/08/18 03:39 09/08/18 04:48 - Physicial Exam PE: 09/08/18 03:32 Agree with the resident's HPI and PE as documented in the electronic medical record. NAD, well appearing, on nasal cannula. PERRL, EOMI, nl conjunctiva, anicteric; neck supple. lungs clear, RRR, abdomen soft nontender. PORRAS x4, no focal neuro deficits. No peripheral edema. normal color for ethnicity, WWP. - Medical Decision Making 09/08/18 03:31 See HPI for details Vital signs reviewed, wnl. no hypoxia, on home supp O2 via nasal cannula DDx SOB: ACS, arrhythmia, angina, PE, PTX, CHF, pulmonary edema, pleurisy, pneumonia, viral syndrome. effusion. anemia, electrolyte/metabolic derangements. Prior notes reviewed, including admissions, discharges and consultations. she has chronic SOB per her comorbidities 08/28/18 Labs wnl, neg trops. CTA negative for PE/dissection at that time. defer repeat imaging with recent unremarkable results and no lower extremity swelling or s/s VTE/DVT. laboratory results and imaging reviewed, basic labs and lytes wnl, notable for hyperglycemia, give insulin; no fluids, h/o CHF and likely exacerbation. mild hyponatremia likely pseudo in the setting of hyperglycemia. will check for DKA/HHS, but no e/o gap acidosis. CXR_cardiomegaly, increased pulmonary vascular and central congestion noted. sternotomy wires in place. Cardiac panel_neg trop, less likely ACS/angina. EKG normal sinus rhythm at 67 bpm, no interval abnormalities, narrow QRS, ST and T wave segments and morphology normal. Nonspecific T wave abnormalitiesin precordials and in I, AVL, similar to prior. ED course - lasix diuresis for CHF exacerbation - insulin for hyperglycemia, known diabetic. no gap acidosis. doubt DKA. admit tele for CHF exacerbation, fluid overload and medical management. 09/08/18 04:45 Heart Score/ECG Review #1 ECG reviewed & interpreted by me at: 02:15 General ECG Interpretation: Sinus Rhythm, Normal Rate Compared to previous ECG there are: No significant change 09/08/18 03:32 EKG normal sinus rhythm at 67 bpm, no interval abnormalities, narrow QRS, ST and T wave segments and morphology normal. Nonspecific T wave abnormalitiesin precordials and in I, AVL, similar to prior.
[2018-09-08 03:20] LABS: BASO % 1.1 % (0-2.0); EOS % 2.5 % (0-4.5); HEMATOCRIT 34.8 % (32.4-45.2); HEMOGLOBIN 11.8 GM/dL (10.7-15.3); LYMPH % 25.1 % (8-40); MCH 30.8 pg (25.7-33.7); MCHC 33.7 g/dl (32.0-36.0); MEAN CELL VOLUME 91.4 fl (80-96); MEAN PLT VOLUME 9.1 fl (7.5-11.1); MONO % 9.6 % (3.8-10.2); NEUT % 61.7 % (42.8-82.8); PLATELET COUNT 240 K/MM3 (134-434); RBC 3.81 M/mm3 (3.60-5.2); RDW 13.6 % (11.6-15.6); WHITE BLOOD COUNT 8.7 K/mm3 (4.0-10.0)
[2018-09-08 04:34] LABS: ALBUMIN 3.5 g/dl (3.4-5.0); ALK PHOS 164 U/L (45-117); ANION GAP 7 MMOL/L (8-16); BILIRUBIN,TOTAL 0.4 mg/dL (0.2-1); BLOOD UREA NITROGEN 23 mg/dL (7-18); CALCIUM 8.9 mg/dL (8.5-10.1); CHLORIDE 93 mmol/L (98-107); CO2 32 mmol/L (21-32); CREATININE 1.4 mg/dL (0.55-1.3); POTASSIUM 4.3 mmol/L (3.5-5.1); SGOT/AST 15 U/L (15-37); SGPT/ALT 21 U/L (13-61); SODIUM 132 mmol/L (136-145); TOT PROT 7.3 g/dl (6.4-8.2)
[2018-09-08 04:37] LABS: GLUCOSE,RANDOM 357 mg/dL (74-106)
[2018-09-08] MEDS ORDERED: FUROSEMIDE 40 MG/4 ML INJECTABLE VIAL IVPUSH ONE (04:43)
[2018-09-08] MEDS ORDERED: INSULIN (NOVOLOG) ASPART 100 UNITS/ML 10ML VIAL SQ ONE (04:45)
[2018-09-08] MEDS ORDERED: INSULIN (NOVOLOG) ASPART 100 UNITS/ML 10ML VIAL ONE ×2 (04:50→06:42)
[2018-09-08] MEDS ORDERED: NITROGLYCERIN SUBLINGUAL 1/150 0.4 MG TAB SL PRN (05:27)
[2018-09-08] MEDS ORDERED: MAGNESIUM HYDROX 2400MG/30ML ORAL SUSPENSION 30 ML CUP PO PRN (05:27)
--- NOTE | 2018-09-08 05:31 | PN ---
Teaching Attending Note Name of Resident: Juan C Robertson ATTENDING PHYSICIAN STATEMENT I saw and evaluated the patient. I reviewed the resident's note and discussed the case with the resident. I agree with the resident's findings and plan as documented. SUBJECTIVE: Seen and examined; please see resident note for further historical documentation. Patient recently discharged from medicine service last month for NSTEMI, etc. She presents back to the ER with multiple complaints. She is on chronic home O2 at 2-3 L ATC; she was off her O2 today at the [facility] (unsure why ) and was noted to desat to the high 80s. She was placed back on O2 and sx improved. She had vague chest pain, but moreso was concerned regarding chronic abdominal pain (has chronic constipation). Her BNP is lower than it was last time and she does not have increased O2 requirements off her baseline. Sometimes breathing can make her chest discomfort worse. She is hemodynamically stable and afebrile. She is noted to be hyperglycemic. 10 sys ROS done and negative aside from HPI PMH, PSH, Family hx, Social hx reviewed Home Medications Medication Instructions Recorded Aspirin [ASA -] 81 mg PO DAILY 08/20/17 Carvedilol [Coreg -] 12.5 mg PO BID 08/20/17 Levothyroxine [Synthroid -] 88 mcg PO DAILY 08/20/17 Ranolazine [Ranexa] 500 mg PO BID 08/20/17 Atorvastatin Ca [Lipitor] 40 mg PO HS #30 tablet 09/21/17 Gabapentin [Neurontin -] 600 mg PO TID 02/25/18 Insulin Detemir [Levemir Flextouch] 35 unit SQ HS 02/25/18 Magnesium Hydrox 2400MG/30Ml [Milk 30 ml PO DAILY PRN cup 03/01/18 of Magnesia -] Clopidogrel Bisulfate [Plavix -] 75 mg PO DAILY tablet 08/24/18 Docusate Sodium [Colace -] 300 mg PO HS capsule 08/24/18 Ezetimibe [Zetia -] 10 mg PO DAILY tablet 08/24/18 Furosemide [Lasix -] 20 mg PO DAILY tablet 08/24/18 Insulin Sliding Scale [Novolog 1 vial SQ ACHS units 08/24/18 Vial Sliding Scale -] Nitroglycerin Sublingual 0.4 mg SL Q5M PRN tab 08/24/18 [Nitrostat -] Pantoprazole Sodium [Protonix -] 40 mg PO DAILY tablet.ec 08/24/18 Polyethylene Glycol 3350 [Miralax 17 gm PO DAILY bottle 08/24/18 119 gm Btl -] Sennosides [Senna -] 2 tab PO HS tablet 08/24/18 Acetaminophen 650 mg PO DAILY PRN MDD 1950 09/08/18 OBJECTIVE: VS, labs, imaging reviewed NAD, AAO, resting in bed on 2L O2 at 99% NC AT EOMI PERRLA RRR s1/2 no mgr; vaguely reproduycible CP Lungs with mild crackles, w/ sym exp Mild diffuse tenderness ND +BS CN2-12 wnl, no fnd Previous Echo reviewed EKG reviewed ASSESSMENT AND PLAN: Patient presents with hypoxia when she was off her home O2; this resolved. She has vague chest discomfort and chronic abdominal pain. 1) Hypoxia -Resolved; followup final CXR report but mostly unchanged. BNP lower. 99% now. She should continue home O2 and this was likely 2/2 her being off her home O2. Given Cr 1.4 would hold off aggressive diuresis to not precipitate an HAROLDO. Can check a flu. 2) Chronic Systolic CHF -Got IV diuresis in the ER; is on home lasix 20mg PO QD. Continue aforementioned with salt and free water restriction as well. Continue GDMT with BB; not on PRATIBHA due to CKD, etc. Monitor QD weights and strict is and os. Does not appear to be in a joe exacerbation with her BNP lower than last time , chronic congestive changes on imaging, and no increase in O2 requirements. Consider CV consult in AM. 3) Chest Pain with hx CAD -Monitor on telemetry, trend troponin x3. Consider discussion with CV. Did get nitro at [facility]. Vaguely reproducible. -Echo reviewed with old infarct; continue ranolazine, BB, ASA, lipitor, plavix. 4) Chronic abdominal pain with hx fecal retention -Relatively benign exam; checking AXR and monitor for BM. 5) Uncontrolled DM2 with hyperglycemia -Given insulin in ER; repeat fingerstick. -Continue home basal; SSI when inpt. Last A1c 9-range. Needs close OP followup 6) HLD -Continue statin 7) Hypothyroidism -Continue LT4 8) PAD -Continue antiplts, statin 9) Chronic Hyponatremia -132; trend BMP 10) CKD -Cr 1.4 not technically HAROLDO given her baseline; watch carefully as she has gotten hyperkalemic in the past.
--- NOTE | 2018-09-08 05:32 | HP ---
CHIEF COMPLAINT: SOB PCP: Waylon HISTORY OF PRESENT ILLNESS: Patient is an 83 y/o F w/ PMHx HTN, IDDM, HLD, CAD, CHF, GERD, neuropathy, chronic diffuse pain, hypothyroidism, chronic L great toe osteomyelitis, admitted last month for NSTEMI and discharged to SNF, presents from SNF w/ SOB after having home O2 therapy removed. Reportedly desaturated to 88 on RA, then had 2LNC replaced by EMS and saturation improved to mid-90s. Additionally had recurrences of chronic anginal pain at SNF, treated by PRN NTG and improved in field. BIBEMS nonetheless. Afebrile and vitals stable. EKG w/o interval changes. Troponin negative. CXR demonstrating chronic congestive changes. BNP improved vs. ED visit 11 days ago. Does have slight elevation in Cr to 1.4, possibly d/t overdiuresis. Hyponatremia to 132 is baseline. Glucose elevated to 357. Received Lasix and 10U insulin in ED. At time of encounter, only active complaint is diffuse abdominal pain; chronic constipation is known from prior encounters. ER course was notable for: (1) initial troponin negative, EKG w/o interval changes (2) glucose 357 (3) Cr 1.4 Recent Travel: PAST MEDICAL HISTORY: As per HPI PAST SURGICAL HISTORY: Social History: Smoking: Alcohol: Drugs: Family History: Allergies No Known Drug Allergies Allergy (Verified 09/08/18 02:24) HOME MEDICATIONS: Home Medications Medication Instructions Recorded Aspirin [ASA -] 81 mg PO DAILY 08/20/17 Carvedilol [Coreg -] 12.5 mg PO BID 08/20/17 Levothyroxine [Synthroid -] 88 mcg PO DAILY 08/20/17 Ranolazine [Ranexa] 500 mg PO BID 08/20/17 Atorvastatin Ca [Lipitor] 40 mg PO HS #30 tablet 09/21/17 Gabapentin [Neurontin -] 600 mg PO TID 02/25/18 Insulin Detemir [Levemir Flextouch] 35 unit SQ HS 02/25/18 Magnesium Hydrox 2400MG/30Ml [Milk 30 ml PO DAILY PRN cup 03/01/18 of Magnesia -] Clopidogrel Bisulfate [Plavix -] 75 mg PO DAILY tablet 08/24/18 Docusate Sodium [Colace -] 300 mg PO HS capsule 08/24/18 Ezetimibe [Zetia -] 10 mg PO DAILY tablet 08/24/18 Furosemide [Lasix -] 20 mg PO DAILY tablet 08/24/18 Insulin Sliding Scale [Novolog 1 vial SQ ACHS units 08/24/18 Vial Sliding Scale -] Nitroglycerin Sublingual 0.4 mg SL Q5M PRN tab 08/24/18 [Nitrostat -] Pantoprazole Sodium [Protonix -] 40 mg PO DAILY tablet.ec 08/24/18 Polyethylene Glycol 3350 [Miralax 17 gm PO DAILY bottle 08/24/18 119 gm Btl -] Sennosides [Senna -] 2 tab PO HS tablet 08/24/18 Acetaminophen 650 mg PO DAILY PRN MDD 1950 09/08/18 REVIEW OF SYSTEMS As per HPI PHYSICAL EXAMINATION Vital Signs - 24 hr 09/08/18 09/08/18 09/08/18 02:25 05:11 05:22 Temperature 98.1 F 98.5 F Pulse Rate 68 Pulse Rate [ 66 65 Apical] Respiratory 18 19 Rate Blood Pressure 138/75 Blood Pressure 136/56 L 134/56 L [Right Arm] O2 Sat by Pulse 97 98 98 Oximetry (%) GENERAL: A&Ox3, mild distress noted HEENT: NC/AT, PERRLA, EOMI, dry mucous membranes NECK: Normal range of motion, supple without lymphadenopathy, JVD, or masses. LUNGS: bibasilar rales, c/w known chronic pleural effusions HEART: RRR no m/r/g ABDOMEN: +bs, soft, non-distended, obese, mild diffuse tenderness UPPER EXTREMITIES: 2+ pulses, warm, well-perfused. No cyanosis. No clubbing. No peripheral edema. LOWER EXTREMITIES: 2+ pulses, warm, well-perfused. No calf tenderness. No peripheral edema. 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 Laboratory Results - last 24 hr 09/08/18 09/08/18 09/08/18 02:56 02:56 02:56 WBC 8.7 RBC 3.81 Hgb 11.8 Hct 34.8 MCV 91.4 MCH 30.8 MCHC 33.7 RDW 13.6 Plt Count 240 MPV 9.1 D Absolute Neuts (auto) 5.4 Neutrophils % 61.7 Lymphocytes % 25.1 Monocytes % 9.6 Eosinophils % 2.5 D Basophils % 1.1 Nucleated RBC % 0 Sodium 132 L Potassium 4.3 Chloride 93 L Carbon Dioxide 32 Anion Gap 7 L BUN 23 H Creatinine 1.4 H Creat Clearance w eGFR 35.91 Random Glucose 357 H* Calcium 8.9 Total Bilirubin 0.4 AST 15 ALT 21 Alkaline Phosphatase 164 H Creatine Kinase 41 Troponin I < 0.02 B-Natriuretic Peptide Total Protein 7.3 Albumin 3.5 09/08/18 02:56 WBC RBC Hgb Hct MCV MCH MCHC RDW Plt Count MPV Absolute Neuts (auto) Neutrophils % Lymphocytes % Monocytes % Eosinophils % Basophils % Nucleated RBC % Sodium Potassium Chloride Carbon Dioxide Anion Gap BUN Creatinine Creat Clearance w eGFR Random Glucose Calcium Total Bilirubin AST ALT Alkaline Phosphatase Creatine Kinase Troponin I B-Natriuretic Peptide 2154.4 H Total Protein Albumin ASSESSMENT/PLAN: 83 y/o F w/ PMHx HTN, IDDM, HLD, CAD, CHF, GERD, neuropathy, chronic diffuse pain, hypothyroidism, chronic L great toe osteomyelitis, admitted last month for NSTEMI and discharged to SNF, presents from SNF w/ SOB after having home O2 therapy removed #A: -exacerbation of CHF is unlikely -chronic conditions as above -HAROLDO, may be 2/2 overdiuresis -abdominal pain may be 2/2 chronic constipation #P: -trend troponins -restarted home ASA, Lipitor, Coreg, Ezetimibe, gabapentin, levothyroxine, Ranexa, PRN NTG, bowel regimen -holding home Lasix for Cr elevation -AXR for r/o obstruction pending -BGM, SSI -no IVF -f/u BMP later in the day, will wait for POC Lasix to clear -diabetic diet -heparin subq for DVT PPx -full code -observe on telemetry Visit type - Emergency Visit Emergency Visit: Yes Care time: The patient presented to the Emergency Department on the above date and was hospitalized for further evaluation of their emergent condition. - New Patient This patient is new to me today: Yes Date on this admission: 09/08/18 - Critical Care Critical Care patient: No
[2018-09-08] MEDS ORDERED: MAG HYDROX/AL HYDROX/SIMETH 30 ML UNIT-DOSE CUP ONE (05:36)
[2018-09-08] MEDS ORDERED: HEPARIN NA (PORCINE) 5,000 UNITS/ML 1ML VIAL SQ SCH (06:00)
[2018-09-08] MEDS ORDERED: GABAPENTIN 300 MG CAPSULE (FP) PO SCH (06:00)
[2018-09-08] MEDS ORDERED: GABAPENTIN 100 MG CAPSULE (FP) ONE (06:40)
[2018-09-08] MEDS ORDERED: HEPARIN NA (PORCINE) 5,000 UNITS/ML 1ML VIAL ONE (06:40)
[2018-09-08] MEDS: INSULIN SLIDING SCALE (NOVOLOG) 1 VIAL SQ SCH ×2 (06:47→11:24)
[2018-09-08] MEDS ORDERED: LEVOTHYROXINE NA 88 MCG TABLET (FP) PO SCH (07:00)
[2018-09-08 07:47] LABS: ANION GAP 5 MMOL/L (8-16); BLOOD UREA NITROGEN 23 mg/dL (7-18); CHLORIDE 95 mmol/L (98-107); CO2 34 mmol/L (21-32); CREATININE 1.3 mg/dL (0.55-1.3); GLUCOSE,RANDOM 268 mg/dL (74-106); MAGNESIUM 2.3 mg/dL (1.8-2.4); POTASSIUM 4.2 mmol/L (3.5-5.1); SODIUM 134 mmol/L (136-145)
[2018-09-08] MEDS ORDERED: ASPIRIN 81 MG CHEWABLE TABLETS PO SCH (10:00)
[2018-09-08] MEDS ORDERED: EZETIMIBE 10 MG TABLET (FP) PO SCH (10:00)
[2018-09-08] MEDS ORDERED: POLYETHYLENE GLYCOL 3350 119 GM BTL PO SCH (10:00)
[2018-09-08] MEDS ORDERED: CLOPIDOGREL BISULFATE 75 MG TABLET (FP) PO SCH (10:00)
[2018-09-08] MEDS ORDERED: RANOLAZINE E.R. 500 MG TABLET (FP) PO SCH (10:00)
[2018-09-08] MEDS ORDERED: PANTOPRAZOLE 40 MG TABLET (FP) PO SCH (10:00)
[2018-09-08] MEDS ORDERED: CARVEDILOL 12.5 MG TABLET (FP) PO SCH (10:00)
[2018-09-08 10:26] VITALS: TEMP 98
[2018-09-08 10:32] VITALS: BMI 32.3
--- NOTE | 2018-09-08 10:55 | PN ---
Teaching Attending Note Name of Resident: Sebastian Taylor ATTENDING PHYSICIAN STATEMENT I saw and evaluated the patient. I reviewed the resident's note and discussed the case with the resident. I agree with the resident's findings and plan as documented. SUBJECTIVE:continues to have CP, same for several weeks since last hospitalization. denies cough, SOB, fever, chills, N/V/C/D, staets she had very small BM yesterday OBJECTIVE: Last Vital Signs Temp Pulse Resp BP Pulse Ox 98.0 F 64 18 134/69 97 09/08/18 09:45 09/08/18 09:45 09/08/18 09:45 09/08/18 09:45 09/08/18 09:45 General NAD CV S1 S2 +murmur Lungs CTA B/L no wheezing/rales/rhonchi Abdomen soft slightly distended, NT Extremities no pedal edema ASSESSMENT AND PLAN: 83 year old female with history of HTN, HLD, CAD s/p CABG, GERD, CKD 3, Hx CVA, DM 2 with neuropathy, chronic diffuse pain, hypothyroidism, chronic L great toe osteomyelitis (treated with IV Abx/Hyperbaric Therapy) presents after found being hypoxic and complaining of chest pain 1. Acute on CHronic hypoxic respiratory distress- as per pt she was told by staff at SNF that she should not be on chronic oxygen, when her oxygen was removed she developed chest pain and found to be hypoxic in the 80's. which has since resolved to 99% on 2L NC. should continue with her home oxygen and inhalers and nebs 2. CP- has persisted for several weeks at this time. was recently hospitalized last month and medically managed for NSTEMI as was not a candidate for cath. cardiac enzymes neg x2. would cont with home medications and outpaitent follow up with cardio in 1 week. cont ranexa, asa, plavix, 3. Pseudohypoantremia- corrected Na 138 4. Systolic CHF- appears euolvemic. cont home medications with lasix po 5. CKD- at baseline. 6. constipation- increase miralax to BID, increase fiber in diet. should have 1 soft BM daily to prevent fecal retention 7. DM- A1c 9.1. cont levemir, iss 8. Hypothyroidism - Continue Synthroid. 9. GERD - Continue PPI 10. CKD 3 - Stable. 11. HTN - Continue Ramipril and Coreg 12. HLD - LDL 122 - Zetia added to Statin. 13. discharge to SNF
[2018-09-08 11:06] VITALS: BP 128/55; PULSE 57
--- NOTE | 2018-09-08 11:09 | DS ---
Physical Exam: SUBJECTIVE: Patient seen and examined OBJECTIVE: Vital Signs Period Temp Pulse Resp BP Sys/Ibarra Pulse Ox Last 24 Hr 98.0 F-98.5 F 57-68 16-19 123-138/55-75 97-98 PHYSICAL EXAM GENERAL: The patient is awake, alert, and fully oriented, in no acute distress. HEAD: Normal with no signs of trauma. EYES: PERRL, extraocular movements intact, sclera anicteric, conjunctiva clear. ENT: Ears normal, nares patent, oropharynx clear without exudates, moist mucous membranes. NECK: Trachea midline, full range of motion, supple. LUNGS: Breath sounds equal, clear to auscultation bilaterally, no wheezes, no crackles, no accessory muscle use. HEART: Regular rate and rhythm, S1, S2 without murmur, rub or gallop. ABDOMEN: Soft, nontender, nondistended, normoactive bowel sounds, no guarding, no rebound, no hepatosplenomegaly, no masses. EXTREMITIES: 2+ pulses, warm, well-perfused, no edema. NEUROLOGICAL: Cranial nerves II through XII grossly intact. Normal speech, gait not observed. PSYCH: Normal mood, normal affect. SKIN: Warm, dry, normal turgor, no rashes or lesions noted. LABS Laboratory Results - last 24 hr 09/08/18 09/08/18 09/08/18 02:56 02:56 02:56 WBC 8.7 RBC 3.81 Hgb 11.8 Hct 34.8 MCV 91.4 MCH 30.8 MCHC 33.7 RDW 13.6 Plt Count 240 MPV 9.1 D Absolute Neuts (auto) 5.4 Neutrophils % 61.7 Lymphocytes % 25.1 Monocytes % 9.6 Eosinophils % 2.5 D Basophils % 1.1 Nucleated RBC % 0 Sodium 132 L Potassium 4.3 Chloride 93 L Carbon Dioxide 32 Anion Gap 7 L BUN 23 H Creatinine 1.4 H Creat Clearance w eGFR 35.91 POC Glucometer Random Glucose 357 H* Calcium 8.9 Phosphorus Magnesium Total Bilirubin 0.4 AST 15 ALT 21 Alkaline Phosphatase 164 H Creatine Kinase 41 Troponin I < 0.02 B-Natriuretic Peptide Total Protein 7.3 Albumin 3.5 09/08/18 09/08/18 09/08/18 02:56 06:38 07:00 WBC RBC Hgb Hct MCV MCH MCHC RDW Plt Count MPV Absolute Neuts (auto) Neutrophils % Lymphocytes % Monocytes % Eosinophils % Basophils % Nucleated RBC % Sodium Potassium Chloride Carbon Dioxide Anion Gap BUN Creatinine Creat Clearance w eGFR POC Glucometer 254 Random Glucose Calcium Phosphorus Magnesium Total Bilirubin AST ALT Alkaline Phosphatase Creatine Kinase Troponin I < 0.02 B-Natriuretic Peptide 2154.4 H Total Protein Albumin 09/08/18 07:00 WBC RBC Hgb Hct MCV MCH MCHC RDW Plt Count MPV Absolute Neuts (auto) Neutrophils % Lymphocytes % Monocytes % Eosinophils % Basophils % Nucleated RBC % Sodium 134 L Potassium 4.2 Chloride 95 L Carbon Dioxide 34 H Anion Gap 5 L BUN 23 H Creatinine 1.3 Creat Clearance w eGFR 39.12 POC Glucometer Random Glucose 268 H Calcium 9.0 Phosphorus 4.0 Magnesium 2.3 Total Bilirubin AST ALT Alkaline Phosphatase Creatine Kinase Troponin I B-Natriuretic Peptide Total Protein Albumin HOSPITAL COURSE: Date of Admission:09/08/18 Date of Discharge: 09/08/18 Discharge Summary Reason For Visit: SHORTNESS OF BREATH,CONGESTIVE HEART FAILURE Current Active Problems Shortness of breath (Acute) Condition: Improved - Instructions Diet, Activity, Other Instructions: You came in for shortness of breath and chest pain. We did imaging and labs and we did not find any acute problems. Your chest pain resolved with Nitroglycerin before ED arrival. You shortness of breath resolved once you received your home oxygen. Please continue taking your Nitroglycerin for chest pain as needed. Please continue your physical therapy WITH OXYGEN 2-3L NC and continue to walk with assistance as needed. PLEASE DO NOT TAKE OFF YOUR OXYGEN as this can cause hypoxia and cause chest pain. Please monitor your blood glucose and take your insulin as prescribed. Please continue your home medications as prescribed. Please follow up with your Primary Care Physician at your next scheduled appointment. Please follow up with your [facility] Manager, Dr. Fournier in 1 week. Please return to the ED if you are having chest pain that wont go away even after Nitroglycerin use, worsening shortness of breath, fever, chills, inability to urinate, weight gain of more than 2 lbs. in 24 hours. Referrals: Ron Fournier MD [Staff Physician] - 1 Week Disposition: INTERMEDIATE FACILITY - Home Medications Comprehensive Discharge Medication List: Ambulatory Orders Aspirin [ASA -] 81 mg PO DAILY 08/20/17 Carvedilol [Coreg -] 12.5 mg PO BID 08/20/17 Levothyroxine [Synthroid -] 88 mcg PO DAILY 08/20/17 Ranolazine [Ranexa] 500 mg PO BID 08/20/17 Atorvastatin Ca [Lipitor] 40 mg PO HS #30 tablet 09/21/17 Gabapentin [Neurontin -] 600 mg PO TID 02/25/18 Insulin Detemir [Levemir Flextouch] 35 unit SQ HS 02/25/18 Magnesium Hydrox 2400MG/30Ml [Milk of Magnesia -] 30 ml PO DAILY PRN cup Clopidogrel Bisulfate [Plavix -] 75 mg PO DAILY tablet 08/24/18 Docusate Sodium [Colace -] 300 mg PO HS capsule 08/24/18 Ezetimibe [Zetia -] 10 mg PO DAILY tablet 08/24/18 Furosemide [Lasix -] 20 mg PO DAILY tablet 08/24/18 Insulin Sliding Scale [Novolog Vial Sliding Scale -] 1 vial SQ ACHS units 08/24 Nitroglycerin Sublingual [Nitrostat -] 0.4 mg SL Q5M PRN tab 08/24/18 Pantoprazole Sodium [Protonix -] 40 mg PO DAILY tablet.ec 08/24/18 Polyethylene Glycol 3350 [Miralax 119 gm Btl -] 17 gm PO DAILY bottle 08/24/18 Sennosides [Senna -] 2 tab PO HS tablet 08/24/18 Acetaminophen 650 mg PO DAILY PRN MDD 1950 09/08/18
--- NOTE | 2018-09-08 11:18 | PN ---
Progress Note (short form) - Note Progress Note: Pt known to me from [place] [facility] noted States she feels weak No chest pain Vital Signs - 24 hr 09/08/18 09/08/18 09/08/18 02:25 05:11 05:22 Temperature 98.1 F 98.5 F Pulse Rate 68 Pulse Rate [ 66 65 Apical] Respiratory 18 19 Rate Blood Pressure 138/75 Blood Pressure 136/56 L 134/56 L [Right Arm] O2 Sat by Pulse 97 98 98 Oximetry (%) 09/08/18 09/08/18 09/08/18 08:30 09:00 09:45 Temperature 98.2 F 98.0 F Pulse Rate 64 Pulse Rate [ 62 Apical] Respiratory 16 18 18 Rate Blood Pressure 134/69 Blood Pressure 123/57 L [Right Arm] O2 Sat by Pulse 97 97 97 Oximetry (%) 09/08/18 10:00 Temperature 98.0 F Pulse Rate 57 L Pulse Rate [ Apical] Respiratory 18 Rate Blood Pressure 128/55 L Blood Pressure [Right Arm] O2 Sat by Pulse 97 Oximetry (%) Current Medications Generic Name Dose Route Start Last Admin Trade Name Freq PRN Reason Stop Dose Admin Aspirin 81 mg 09/08/18 10:00 Asa - PO DAILY [facility] Atorvastatin Calcium 40 mg 09/08/18 22:00 Lipitor - PO HS [facility] Carvedilol 12.5 mg 09/08/18 10:00 Coreg - PO BID [facility] Clopidogrel Bisulfate 75 mg 09/08/18 10:00 Plavix - PO DAILY [facility] Docusate Sodium 300 mg 09/08/18 22:00 Colace - PO HS [facility] Ezetimibe 10 mg 09/08/18 10:00 Zetia - PO DAILY [facility] Gabapentin 600 mg 09/08/18 06:00 09/08/18 06:47 Neurontin - PO 600 mg TID [facility] Administration Heparin Sodium (Porcine) 5,000 unit 09/08/18 06:00 09/08/18 06:46 Heparin - SQ 5,000 unit TID [facility] Administration Insulin Aspart 1 vial 09/08/18 07:00 09/08/18 06:47 Novolog Vial Sliding Scale - SQ 6 unit ACHS [facility] Administration Protocol Levothyroxine Sodium 88 mcg 09/08/18 07:00 09/08/18 07:01 Synthroid - PO 88 mcg DAILY@0700 [facility] Administration Magnesium Hydroxide 30 ml 09/08/18 05:27 Milk Of Magnesia - PO DAILY PRN CONSTIPATION Nitroglycerin 0.4 mg 09/08/18 05:27 Nitrostat - SL Q5M PRN FOR CHEST PAIN Pantoprazole Sodium 40 mg 09/08/18 10:00 Protonix - PO DAILY [facility] Polyethylene Glycol 17 gm 09/08/18 10:00 Miralax (For Daily Use) - PO DAILY [facility] Ranolazine 500 mg 09/08/18 10:00 Ranexa - PO BID [facility] Senna 2 tab 09/08/18 22:00 Senna - PO HS [facility] Laboratory Results - last 24 hr 09/08/18 09/08/18 09/08/18 02:56 02:56 02:56 WBC 8.7 RBC 3.81 Hgb 11.8 Hct 34.8 MCV 91.4 MCH 30.8 MCHC 33.7 RDW 13.6 Plt Count 240 MPV 9.1 D Absolute Neuts (auto) 5.4 Neutrophils % 61.7 Lymphocytes % 25.1 Monocytes % 9.6 Eosinophils % 2.5 D Basophils % 1.1 Nucleated RBC % 0 Sodium 132 L Potassium 4.3 Chloride 93 L Carbon Dioxide 32 Anion Gap 7 L BUN 23 H Creatinine 1.4 H Creat Clearance w eGFR 35.91 POC Glucometer Random Glucose 357 H* Calcium 8.9 Phosphorus Magnesium Total Bilirubin 0.4 AST 15 ALT 21 Alkaline Phosphatase 164 H Creatine Kinase 41 Troponin I < 0.02 B-Natriuretic Peptide Total Protein 7.3 Albumin 3.5 09/08/18 09/08/18 09/08/18 02:56 06:38 07:00 WBC RBC Hgb Hct MCV MCH MCHC RDW Plt Count MPV Absolute Neuts (auto) Neutrophils % Lymphocytes % Monocytes % Eosinophils % Basophils % Nucleated RBC % Sodium Potassium Chloride Carbon Dioxide Anion Gap BUN Creatinine Creat Clearance w eGFR POC Glucometer 254 Random Glucose Calcium Phosphorus Magnesium Total Bilirubin AST ALT Alkaline Phosphatase Creatine Kinase Troponin I < 0.02 B-Natriuretic Peptide 2154.4 H Total Protein Albumin 09/08/18 09/08/18 07:00 11:12 WBC RBC Hgb Hct MCV MCH MCHC RDW Plt Count MPV Absolute Neuts (auto) Neutrophils % Lymphocytes % Monocytes % Eosinophils % Basophils % Nucleated RBC % Sodium 134 L Potassium 4.2 Chloride 95 L Carbon Dioxide 34 H Anion Gap 5 L BUN 23 H Creatinine 1.3 Creat Clearance w eGFR 39.12 POC Glucometer 117 Random Glucose 268 H Calcium 9.0 Phosphorus 4.0 Magnesium 2.3 Total Bilirubin AST ALT Alkaline Phosphatase Creatine Kinase Troponin I B-Natriuretic Peptide Total Protein Albumin S1 S2 RRR Lungs crackles+ Abd- soft, obese, NT No edema no JVD PLAN hospitalist follow up noted Agree for dc to NH on O2 Pt will need to be restarted on Lasix PO continue with meds has COPD continue nebs as well Problem List - Problems (1) COPD (chronic obstructive pulmonary disease) Code(s): J44.9 - CHRONIC OBSTRUCTIVE PULMONARY DISEASE, UNSPECIFIED (2) Shortness of breath Code(s): R06.02 - SHORTNESS OF BREATH (3) CAD (coronary artery disease) Code(s): I25.10 - ATHSCL HEART DISEASE OF [place] CORONARY ARTERY W/O ANG PCTRS Qualifiers: Coronary Disease-Associated Artery/Lesion type: [place] artery [place] vs. transplanted heart: [place] heart Associated angina: with unstable angina Qualified Code(s): I25.110 - Atherosclerotic heart disease of [place] coronary artery with unstable angina pectoris (4) CHF (congestive heart failure) Code(s): I50.9 - HEART FAILURE, UNSPECIFIED Qualifiers: Heart failure type: unspecified Heart failure chronicity: acute on chronic Qualified Code(s): I50.9 - Heart failure, unspecified
--- NOTE | 2018-09-08 12:12 | EKG ---
Test Reason : Blood Pressure : / mmHG Vent. Rate : 067 BPM Atrial Rate : 067 BPM P-R Int : 190 ms QRS Dur : 090 ms QT Int : 400 ms P-R-T Axes : 060 019 115 degrees QTc Int : 422 ms NORMAL SINUS RHYTHM ABNORMAL ECG WHEN COMPARED WITH ECG OF 28-AUG-2018 10:18, T WAVE INVERSION NOW EVIDENT IN ANTERIOR LEADS Confirmed by JUDY AMAYA MD ([id number]) on 09/08/2018 12:12:25 PM Referred By: Confirmed By:JUDY AMAYA MD
[2018-09-08] MEDS ORDERED: SENNOSIDES 8.6MG TABLET (FP) PO SCH (22:00)
[2018-09-08] MEDS ORDERED: ATORVASTATIN CA 40 MG TABLET (FP) PO SCH (22:00)
[2018-09-08] MEDS ORDERED: DOCUSATE SODIUM 100 MG CAPSULE (FP) PO SCH (22:00)
== END 2018-09-08 13:05 ==
LOC: JER 02:08 → JERBED 04:45 → J4W 09:31
PROVIDERS: ADMIT Internal Medicine; ATTEND Internal Medicine
PROC: 3E013VG Introduction of Insulin into Subcutaneous Tissue, Percutaneous Approach (ICD-10-PCS; principal; 2018-09-08)
PROC: 3E013GC Introduction of Other Therapeutic Substance into Subcutaneous Tissue, Percutaneous Approach (ICD-10-PCS; 2018-09-08)
DX: R06.02 Shortness of breath (principal); I50.22 Chronic systolic (congestive) heart failure; I25.119 Atherosclerotic heart disease of native coronary artery with unspecified angina pectoris; R09.02 Hypoxemia; R10.9 Unspecified abdominal pain; G89.29 Other chronic pain; E11.65 Type 2 diabetes mellitus with hyperglycemia; I11.0 Hypertensive heart disease with heart failure; E78.5 Hyperlipidemia, unspecified; I25.2 Old myocardial infarction; K21.9 Gastro-esophageal reflux disease without esophagitis; E03.9 Hypothyroidism, unspecified; K59.00 Constipation, unspecified; G62.9 Polyneuropathy, unspecified; I73.9 Peripheral vascular disease, unspecified; E87.1 Hypo-osmolality and hyponatremia; E11.22 Type 2 diabetes mellitus with diabetic chronic kidney disease; I12.9 Hypertensive chronic kidney disease with stage 1 through stage 4 chronic kidney disease, or unspecified chronic kidney disease; N18.3 Chronic kidney disease, stage 3 (moderate); Z79.4 Long term (current) use of insulin; J44.9 Chronic obstructive pulmonary disease, unspecified
CPT/HCPCS: 36415; 71045-TC-FY; 80048; 80053; 82550; 82962; 83735; 83880; 84100; 84484; 85025; 93005; 93010; 96372; 99283-25; G0378; J1644

== ENCOUNTER 2019-04-06 10:19 | Inpatient (IN) | payer MEDICARE, OTHER ==
--- NOTE | 2019-04-06 12:26 | PDOC ---
History of Present Illness - General Chief Complaint: Wound Stated Complaint: INFECTED LEFT FOOT Time Seen by Provider: 04/06/19 10:34 History Source: Patient, Family Exam Limitations: Language Barrier - History of Present Illness Initial Comments: 04/06/19 10:26 Maricruz Villalobos is an 83F with PMH HTN, IDDM c/b neuropathy and gangrene in her left 1st toe requiring IV ABx and hyperbarics, sent from PMD office for L foot cellulitis and toe ulcer. Patient has history of IDDM and neuropathy, has been developing cellulitis in her left foot for the last 5 days. Denies pain in left foot, able to ambulate with walker. Denies fever, chest pain, palpitations, abdominal pain, urinary symptoms. Has had myalgias and chills with non-productive cough. Notes discharge and redness to toes on left foot, but able to move toes without issue. Last hospitalization 1 year ago for prior gangrene/infection to 1st toe on left foot. Denies recent injury to either foot. Presented to her PMD Dr. Sparks who referred her here for IV antibiotics. Past History - Past Medical History Allergies/Adverse Reactions: Allergies Allergy/AdvReac Type Severity Reaction Status Date / Time No Known Drug Allergies Allergy Verified 04/06/19 10:27 Home Medications: Ambulatory Orders Aspirin [ASA -] 81 mg PO DAILY 08/20/17 Carvedilol [Coreg -] 12.5 mg PO BID 08/20/17 Levothyroxine [Synthroid -] 88 mcg PO DAILY 08/20/17 Ranolazine [Ranexa] 500 mg PO BID 08/20/17 Atorvastatin Ca [Lipitor] 40 mg PO HS #30 tablet 09/21/17 Gabapentin [Neurontin -] 600 mg PO TID 02/25/18 Insulin Detemir [Levemir Flextouch] 35 unit SQ HS 02/25/18 Magnesium Hydrox 2400MG/30Ml [Milk of Magnesia -] 30 ml PO DAILY PRN cup Clopidogrel Bisulfate [Plavix -] 75 mg PO DAILY tablet 08/24/18 Docusate Sodium [Colace -] 300 mg PO HS capsule 08/24/18 Ezetimibe [Zetia -] 10 mg PO DAILY tablet 08/24/18 Furosemide [Lasix -] 20 mg PO DAILY tablet 08/24/18 Insulin Sliding Scale [Novolog Vial Sliding Scale -] 1 vial SQ ACHS units 08/24 Nitroglycerin Sublingual [Nitrostat -] 0.4 mg SL Q5M PRN tab 08/24/18 Pantoprazole Sodium [Protonix -] 40 mg PO DAILY tablet.ec 08/24/18 Polyethylene Glycol 3350 [Miralax 119 gm Btl -] 17 gm PO DAILY bottle 08/24/18 Sennosides [Senna -] 2 tab PO HS tablet 08/24/18 Acetaminophen 650 mg PO DAILY PRN MDD 1950 09/08/18 Anemia: No Asthma: No Cancer: No Cardiac Disorders: Yes (NSTEMI, CAD, Stents, CABG, Angina, D-CHF) CVA: Yes COPD: No CHF: Yes DVT: No Dementia: No Diabetes: Yes GI Disorders: Yes (Duodenal and gastric Ulcers, GERD) Disorders: Yes (Urosepsis - Ecoli ESBL in urine 01/2018) HTN: Yes Hypercholesterolemia: Yes Liver Disease: No Seizures: No Thyroid Disease: No - Surgical History Abdominal Surgery: No Appendectomy: No Cardiac Surgery: Yes (CABG) Cholecystectomy: No Lung Surgery: No Neurologic Surgery: No Orthopedic Surgery: Yes (Rt elbow Sx) - Immunization History Td Vaccination: Yes TDAP Vaccination: Yes Immunization Up to Date: No - Psycho Social/Smoking Cessation Hx Smoking Status: No Smoking History: Never smoked Have you smoked in the past 12 months: No Number of Cigarettes Smoked Daily: 0 Hx Alcohol Use: No Drug/Substance Use Hx: No Substance Use Type: None Hx Substance Use Treatment: No Review of Systems - Review of Systems Able to Perform ROS?: Yes Constitutional: Yes: Chills. No: Fever HEENTM: No: Symptoms Reported Respiratory: Yes: Cough. No: Shortness of Breath Cardiac (ROS): No: Chest Pain, Lightheadedness, Palpitations, Syncope ABD/GI: No: Constipated, Diarrhea, Nausea, Poor Appetite, Poor Fluid Intake, Vomiting, Abdominal cramping : No: Symptoms Reported Musculoskeletal: No: Symptoms Reported Integumentary: No: Symptoms Reported Neurological: Yes: Numbness (bilateral lower extremities). No: Headache, Seizure, Tingling Endocrine: No: Symptoms Reported Hematologic/Lymphatic: No: Symptoms Reported All Other Systems: Reviewed and Negative *Physical Exam - Vital Signs Last Vital Signs Temp Pulse Resp BP Pulse Ox 98.3 F 70 18 106/41 L 94 L 04/06/19 10:20 04/06/19 10:20 04/06/19 10:20 04/06/19 10:20 04/06/19 10:20 - Physical Exam General Appearance: Yes: Nourished, Appropriately Dressed. No: Apparent Distress HEENT: positive: EOMI, YANETH, Normal Voice, Symmetrical, Pharynx Normal, Hearing Grossly Normal. negative: Scleral Icterus (R), Scleral Icterus (L), Pharyngeal Erythema, Tonsillar Exudate, Tonsillar Erythema Neck: positive: Trachea midline, Supple. negative: Tender, Lymphadenopathy (R) , Lymphadenopathy (L) Respiratory/Chest: positive: Lungs Clear, Normal Breath Sounds. negative: Chest Tender, Respiratory Distress, Accessory Muscle Use, Crackles, Rales, Rhonchi, Stridor, Wheezing Cardiovascular: positive: Regular Rhythm, Regular Rate Gastrointestinal/Abdominal: positive: Normal Bowel Sounds, Flat, Soft. negative : Tender, Guarding, Rebound Musculoskeletal: positive: Normal Inspection. negative: CVA Tenderness Extremity: positive: Normal Capillary Refill, Normal Inspection, Normal Range of Motion, Erythema, Inflammation, Other (left foot appears erythematous with viscous clear discharge). negative: Tender, Pedal Edema, Swelling Integumentary: positive: Normal Color, Dry, Warm. negative: Jaundice, Hives Neurologic: positive: Fully Oriented, Alert, Normal Mood/Affect, Normal Response ED Treatment Course - LABORATORY CBC & Chemistry Diagram: 04/06/19 11:40 04/06/19 13:20 - RADIOLOGY Radiology Studies Ordered: Category Date Time Status CHEST X-RAY PORTABLE* [RAD] Stat Radiology 04/06/19 11:23 Completed FOOT-LEFT [RAD] Stat Radiology 04/06/19 11:34 Ordered Medical Decision Making - Medical Decision Making 04/06/19 10:26 Maricruz Villalobos is an 83F with PMH HTN, IDDM c/b neuropathy and gangrene in her left 1st toe requiring IV ABx and hyperbarics, sent from PMD office for L foot cellulitis. Patient presents with symptoms consistent with cellulitis of the toes in her left foot, in addition to fever on rectal temperature, chills, and myalgias concerning for systemic infection. Will evaluate broadly for sepsis vs. cellulitis vs. osteomyelitis vs. influenza via: CMP CBC Trop Wound Culture UA/UC Blood Culture Lactate Rapid influenza swab Giving 1L NS, Ofirmev for fever Giving vancomycin and Zosyn for cellulitis as she was given this last time 04/06/19 13:58 Labs notable for: - rapid flu negative - WBC 14 Will admit for IV antibiotics for LLE cellulitis and ulcer. 04/06/19 15:00 Signed out to Vicky with hospitalist service, [facility] Med-Surg admission under Dr. Montague. Discharge - Discharge Information Problems reviewed: Yes Clinical Impression/Diagnosis: S/P CABG (coronary artery bypass graft) Type 2 diabetes mellitus Qualifiers: Diabetes mellitus terminal superintendent insulin use: unspecified penitentiary insulin use status Diabetes mellitus complication status: with neurologic complications Diabetes mellitus complication detail: with polyneuropathy Qualified Code(s): E11.42 - Type 2 diabetes mellitus with diabetic polyneuropathy Toe ulcer Qualifiers: Laterality: left Non-pressure ulcer stage: limited to breakdown of skin Qualified Code(s): L97.521 - Non-pressure chronic ulcer of other part of left foot limited to breakdown of skin - Follow up/Referral - Patient Discharge Instructions - Post Discharge Activity
[2019-04-06] MEDS ORDERED: PIPERACILLIN/TAZOB 4.5 GM 4.5 GM in DEXTROSE 5%-WATER 100 ML IVPB ONE (12:31)
[2019-04-06] MEDS ORDERED: VANCOMYCIN 1 GM in D5W (PRE-DOCKED) 1,000 MG/250 ML IVPB ONE (12:31)
[2019-04-06] MEDS ORDERED: VANCOMYCIN 1 GRAM (PRE-DOCKED) 1,000 MG/250 ML BAG IVPB ONE (13:15)
[2019-04-06] MEDS ORDERED: PIPERACILLIN/TAZOB 4.5 GM 4.5 GM/100 ML BAG IVPB ONE (13:20)
[2019-04-06 13:29] LABS: BASO % 0.9 % (0-2.0); EOS % 0.4 % (0-4.5); HEMOGLOBIN 10.8 GM/dL (10.7-15.3); LYMPH % 24.1 % (8-40); MCH 29.8 pg (25.7-33.7); MCHC 32.7 g/dl (32.0-36.0); MEAN CELL VOLUME 91.3 fl (80-96); MEAN PLT VOLUME 8.3 fl (7.5-11.1); MONO % 12.7 % (3.8-10.2); NEUT % 61.9 % (42.8-82.8); PLATELET COUNT 242 K/MM3 (134-434); RBC 3.61 M/mm3 (3.60-5.2); RDW 13.9 % (11.6-15.6)
[2019-04-06 13:45] LABS: INR 1.11 (0.83-1.09); PROTHROMBIN TIME (PATIENT) 13.1 SEC (9.7-13.0)
[2019-04-06] MEDS ORDERED: SODIUM CHLORIDE 0.9% 500 ML INFUS.BAG IV ONE (13:45)
[2019-04-06] MEDS ORDERED: ACETAMINOPHEN 1000 MG/100 ML VIAL (NON FORMULARY) IVPB ONE (13:45)
[2019-04-06 13:48] LABS: ACTIVATED PTT 32.3 SECONDS (25.2-36.5)
[2019-04-06 14:13] LABS: ALBUMIN 3.2 g/dl (3.4-5.0); ALK PHOS 107 U/L (45-117); ANION GAP 7 MMOL/L (8-16); BILIRUBIN,TOTAL 0.8 mg/dL (0.2-1); BLOOD UREA NITROGEN 34.9 mg/dL (7-18); CALCIUM 8.6 mg/dL (8.5-10.1); CHLORIDE 99 mmol/L (98-107); CO2 28 mmol/L (21-32); CREATININE 1.3 mg/dL (0.55-1.3); GLUCOSE,RANDOM 134 mg/dL (74-106); POTASSIUM 4.3 mmol/L (3.5-5.1); SGOT/AST 10 U/L (15-37); SGPT/ALT 14 U/L (13-61); SODIUM 134 mmol/L (136-145)
[2019-04-06] MEDS ORDERED: ACETAMINOPHEN INJECTION 100 ML IVPB ONE (14:25)
--- NOTE | 2019-04-06 15:16 | PDOC ---
Documentation entered by Nan Lucas SCRIBE, acting as scribe for Tarun Muñoz MD. Tarun Muñoz MD: This documentation has been prepared by the Lance hurt Nirvannie, SCRIBE, under my direction and personally reviewed by me in its entirety. I confirm that the documentation accurately reflects all work, treatment, procedures, and medical decision making performed by me. Attending Attestation - Resident Resident Name: Jez Howe - ED Attending Attestation I have performed the following: I have examined & evaluated the patient, The case was reviewed & discussed with the resident, I agree w/resident's findings & plan, Exceptions are as noted - HPI HPI: 04/06/19 13:52 The patient is an 83 year old female, with a significant past medical history of HTN, IDDM, HLD, CAD (s/p cardiac stenting and NSTEMI), CHF, GERD, neuropathy , hypothyroidism, and chronic L great toe osteomyelitis, who presents to the emergency department with 5 days of a progressively worsening left foot wound. She describes her wound as erythematous with purulent discharge. She denies recent fevers, chills, headache or dizziness. She denies recent nausea, vomit, diarrhea or constipation. She denies recent dysuria, frequency, urgency or hematuria. She denies recent chest pain or shortness of breath. Allergies: NKDA - Physicial Exam PE: 04/06/19 15:01 agree with resident exam - Medical Decision Making 04/06/19 15:03 83yo F presents to the ED for admission for diabetic foot infection No evidence of sepsis or systemic infection No crepitus, streaking to suggest severe infection or nec fasc Has WBC 14 Pt covered with Vanc/Zosyn based on previous infections, admitted for further mgmt
[2019-04-06 15:41] LABS: EPI CELLS 2.8 /HPF (0-5/HPF); HYALINE CASTS 1 /lpf (0-8); PH,URINE 5.5 (5.0-8.0); URINE APPEARANCE CLEAR; URINE BACTERIA 3.3 /hpf (NEGATIVE); URINE BILIRUBIN NEGATIVE (NEGATIVE); URINE COLOR YELLOW; URINE GLUCOSE (UA) NEGATIVE (NEGATIVE); URINE KETONE NEGATIVE (NEGATIVE); URINE LEUK ESTERASE 2+ (NEGATIVE); URINE NITRITE NEGATIVE (NEGATIVE); URINE PROTEIN NEGATIVE (NEGATIVE); URINE RBC 2 /hpf (0-4); URINE UROBILINOGEN 0.2 mg/dL (0.2-1.0); URINE WBC 13 /hpf (0-5)
--- NOTE | 2019-04-06 17:07 | HP ---
CHIEF COMPLAINT: sent by pcp for worsening redness of left foot PCP: Dr. Henderson HISTORY OF PRESENT ILLNESS: Patient is an 83 year old female with a significant past medical history of hypertension, diabetes 2, hld, CHF, GERD, neuropathy, chronic diffuse pain, hypothyroidism, chronic L great toe osteomyelitis and NSTEMI. Patient presents from her doctors office for left 4th toe redness with left 4th toe ulcer and redness from this toe that extends up to her anterior left foot. Patient has had worsening redness of this toe for the last week and she went to see per PCP to report it. In the ED she is awake alert, having some chills. She reports some drainage from the left toe that was cultured in the ED. Her blood cultures were also collected and lactic acid is normal. She is able to move her foot without any difficulty but pain on touch of the toe. she also appears to have a fungus in between the toes. She denies fever, chest pain, palpitations, abdominal pain. she had a hospitalization 1 year ago for prior gangrene/infection to 1st toe on left foot. No recent injury or falls, no trauma of this foot. foot xray is pending in the ED. ER course was notable for: (1) 99.8f, 106/41, 94% room air (2) WBC 14 (3) Recent Travel: none PAST MEDICAL/SURGICAL HISTORY: hypertension, diabetes 2, hld, CHF, GERD, neuropathy, chronic diffuse pain, hypothyroidism, chronic L great toe osteomyelitis and NSTEMI, S/P CABG (coronary artery bypass graft) Social History: Smoking: denies Alcohol: denies Drugs: denies Allergies No Known Drug Allergies Allergy (Verified 04/06/19 10:27) HOME MEDICATIONS: Home Medications Medication Instructions Recorded Aspirin [ASA -] 81 mg PO DAILY 08/20/17 Carvedilol [Coreg -] 12.5 mg PO BID 08/20/17 Levothyroxine [Synthroid -] 88 mcg PO DAILY 08/20/17 Ranolazine [Ranexa] 500 mg PO BID 08/20/17 Atorvastatin Ca [Lipitor] 40 mg PO HS #30 tablet 09/21/17 Gabapentin [Neurontin -] 600 mg PO TID 02/25/18 Insulin Detemir [Levemir Flextouch] 35 unit SQ HS 02/25/18 Magnesium Hydrox 2400MG/30Ml [Milk 30 ml PO DAILY PRN cup 03/01/18 of Magnesia -] Clopidogrel Bisulfate [Plavix -] 75 mg PO DAILY tablet 08/24/18 Docusate Sodium [Colace -] 300 mg PO HS capsule 08/24/18 Ezetimibe [Zetia -] 10 mg PO DAILY tablet 08/24/18 Furosemide [Lasix -] 20 mg PO DAILY tablet 08/24/18 Insulin Sliding Scale [Novolog 1 vial SQ ACHS units 08/24/18 Vial Sliding Scale -] Nitroglycerin Sublingual 0.4 mg SL Q5M PRN tab 08/24/18 [Nitrostat -] Pantoprazole Sodium [Protonix -] 40 mg PO DAILY tablet.ec 08/24/18 Polyethylene Glycol 3350 [Miralax 17 gm PO DAILY bottle 08/24/18 119 gm Btl -] Sennosides [Senna -] 2 tab PO HS tablet 08/24/18 Acetaminophen 650 mg PO DAILY PRN MDD 1950 09/08/18 PHYSICAL EXAMINATION Vital Signs - 24 hr 04/06/19 04/06/19 10:20 12:10 Temperature 98.3 F 99.8 F H Pulse Rate 70 Respiratory 18 Rate Blood Pressure 106/41 L O2 Sat by Pulse 94 L Oximetry (%) GENERAL: Awake, alert, and fully oriented, in no acute distress. having some chills in the ED, low grade fever. HEAD: Normal with no signs of trauma. EYES: Pupils equal, round and reactive to light, extraocular movements intact, sclera anicteric, conjunctiva clear. No lid lag. EARS, NOSE, THROAT: Ears normal, nares patent, oropharynx clear without exudates. Moist mucous membranes. NECK: Normal range of motion, supple without lymphadenopathy, JVD, or masses. LUNGS: Breath sounds equal, clear to auscultation bilaterally. No wheezes, and no crackles. No accessory muscle use. HEART: Regular rate and rhythm ABDOMEN: Soft, nontender, obese abdomen MUSCULOSKELETAL: Normal range of motion at all joints. No bony deformities or tenderness. No CVA tenderness. UPPER EXTREMITIES: 2+ pulses, warm, well-perfused. No cyanosis. No clubbing. No peripheral edema. LOWER EXTREMITIES: left foot left foot appears erythematous from 4th toe to the anterior of foot. left great toe with small ulcer that is drainage clear fluid. cultured in the Ed. 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. Normal gait. Laboratory Results - last 24 hr 04/06/19 04/06/19 04/06/19 11:40 13:00 13:00 WBC 14.0 H RBC 3.61 Hgb 10.8 Hct 33.0 MCV 91.3 MCH 29.8 MCHC 32.7 RDW 13.9 Plt Count 242 MPV 8.3 Absolute Neuts (auto) 8.7 H Neutrophils % 61.9 Lymphocytes % 24.1 Monocytes % 12.7 H Eosinophils % 0.4 D Basophils % 0.9 Nucleated RBC % 0 PT with INR INR PTT (Actin FS) Sodium Potassium Chloride Carbon Dioxide Anion Gap BUN Creatinine Est GFR (CKD-EPI)AfAm Est GFR (CKD-EPI)NonAf Random Glucose Lactic Acid Calcium Total Bilirubin AST ALT Alkaline Phosphatase Troponin I Total Protein Albumin Urine Color Yellow Urine Appearance Clear Urine pH 5.5 D Ur Specific [place] 1.015 Urine Protein Negative Urine Glucose (UA) Negative Urine Ketones Negative Urine Blood Negative Urine Nitrite Negative Urine Bilirubin Negative Urine Urobilinogen 0.2 Ur Leukocyte Esterase 2+ H Urine WBC (Auto) 13 Urine RBC (Auto) 2 Urine Casts (Auto) 1 U Epithel Cells (Auto) 2.8 Urine Bacteria (Auto) 3.3 Influenza A (Rapid) Negative Influenza B (Rapid) Negative 04/06/19 04/06/19 04/06/19 13:20 13:20 13:20 WBC RBC Hgb Hct MCV MCH MCHC RDW Plt Count MPV Absolute Neuts (auto) Neutrophils % Lymphocytes % Monocytes % Eosinophils % Basophils % Nucleated RBC % PT with INR 13.10 H INR 1.11 H PTT (Actin FS) 32.3 Sodium 134 L Potassium 4.3 Chloride 99 Carbon Dioxide 28 Anion Gap 7 L BUN 34.9 H Creatinine 1.3 Est GFR (CKD-EPI)AfAm 43.93 Est GFR (CKD-EPI)NonAf 37.91 Random Glucose 134 H Lactic Acid Calcium 8.6 Total Bilirubin 0.8 AST 10 L ALT 14 Alkaline Phosphatase 107 Troponin I Cancelled < 0.02 Total Protein 7.0 Albumin 3.2 L Urine Color Urine Appearance Urine pH Ur Specific [place] Urine Protein Urine Glucose (UA) Urine Ketones Urine Blood Urine Nitrite Urine Bilirubin Urine Urobilinogen Ur Leukocyte Esterase Urine WBC (Auto) Urine RBC (Auto) Urine Casts (Auto) U Epithel Cells (Auto) Urine Bacteria (Auto) Influenza A (Rapid) Influenza B (Rapid) 04/06/19 13:20 WBC RBC Hgb Hct MCV MCH MCHC RDW Plt Count MPV Absolute Neuts (auto) Neutrophils % Lymphocytes % Monocytes % Eosinophils % Basophils % Nucleated RBC % PT with INR INR PTT (Actin FS) Sodium Potassium Chloride Carbon Dioxide Anion Gap BUN Creatinine Est GFR (CKD-EPI)AfAm Est GFR (CKD-EPI)NonAf Random Glucose Lactic Acid 1.0 Calcium Total Bilirubin AST ALT Alkaline Phosphatase Troponin I Total Protein Albumin Urine Color Urine Appearance Urine pH Ur Specific [place] Urine Protein Urine Glucose (UA) Urine Ketones Urine Blood Urine Nitrite Urine Bilirubin Urine Urobilinogen Ur Leukocyte Esterase Urine WBC (Auto) Urine RBC (Auto) Urine Casts (Auto) U Epithel Cells (Auto) Urine Bacteria (Auto) Influenza A (Rapid) Influenza B (Rapid) ASSESSMENT/PLAN: Problem List - Problem (1) Cellulitis Assessment/Plan: left foot cellulitis, left 4th toe cellulitis/edema with erythma extending to left anterior foot. on zosyn per id. left foot xray negative for fracture has history of left great toe cellulitis blood and urine cultures pending lactic acid normal ID and podiatry consulted may need left foot mri to rule out osteo Code(s): L03.90 - CELLULITIS, UNSPECIFIED (2) S/P CABG (coronary artery bypass graft) Assessment/Plan: continue home meds no chest pain Code(s): Z95.1 - PRESENCE OF AORTOCORONARY BYPASS GRAFT (3) Type 2 diabetes mellitus Assessment/Plan: novolg and levemir diabetic diet bgms ac/hs Code(s): E11.9 - TYPE 2 DIABETES MELLITUS WITHOUT COMPLICATIONS Qualifiers: Diabetes mellitus half-way insulin use: unspecified terminal press operator insulin use status Diabetes mellitus complication status: with neurologic complications Diabetes mellitus complication detail: with polyneuropathy Qualified Code(s): E11.42 - Type 2 diabetes mellitus with diabetic polyneuropathy (4) COPD (chronic obstructive pulmonary disease) Assessment/Plan: duonebs prn Code(s): J44.9 - CHRONIC OBSTRUCTIVE PULMONARY DISEASE, UNSPECIFIED (5) CAD (coronary artery disease) Code(s): I25.10 - ATHSCL HEART DISEASE OF [place] CORONARY ARTERY W/O ANG PCTRS Qualifiers: Coronary Disease-Associated Artery/Lesion type: [place] artery [place] vs. transplanted heart: [place] heart Associated angina: with unstable angina Qualified Code(s): I25.110 - Atherosclerotic heart disease of [place] coronary artery with unstable angina pectoris (6) CHF (congestive heart failure) Assessment/Plan: monitor intake and output Code(s): I50.9 - HEART FAILURE, UNSPECIFIED Qualifiers: Heart failure type: unspecified Heart failure chronicity: acute on chronic Qualified Code(s): I50.9 - Heart failure, unspecified (7) CKD (chronic kidney disease) stage 3, GFR 30-59 ml/min Assessment/Plan: daily monitoring of kidney function appears to be at her baseline if worsening ckd, will consult renal renal dose meds Code(s): N18.3 - CHRONIC KIDNEY DISEASE, STAGE 3 (MODERATE) (8) Prophylactic measure Assessment/Plan: fen toleraring po stop ivf monitor electrolyes full code Code(s): Z29.9 - ENCOUNTER FOR PROPHYLACTIC MEASURES, UNSPECIFIED Visit type - Emergency Visit Emergency Visit: Yes ED Registration Date: 04/06/19 Care time: The patient presented to the Emergency Department on the above date and was hospitalized for further evaluation of their emergent condition. - New Patient This patient is new to me today: Yes Date on this admission: 04/07/19 - Critical Care Critical Care patient: No
[2019-04-06] MEDS ORDERED: ALBUTEROL SO4 2.5/IPRATROPIUM 0.5 INH SOL 3 ML VIAL.NEB. NEB PRN (17:26)
[2019-04-06] MEDS: SODIUM CHLORIDE 1,000 ML IV SCH (18:45)
[2019-04-06] MEDS ORDERED: INSULIN (LEVEMIR) 100 UNITS/ML UNITS SQ SCH (22:00)
[2019-04-06] MEDS ORDERED: INSULIN (NOVOLOG) ASPART 100 UNITS/ML 10ML VIAL ONE (22:13)
[2019-04-06] MEDS: INSULIN SLIDING SCALE (NOVOLOG) 1 VIAL SQ SCH (22:23)
[2019-04-06] MEDS: GABAPENTIN 300 MG CAPSULE PO SCH (22:24)
[2019-04-06] MEDS: CARVEDILOL 12.5 MG TABLET (FP) PO SCH (22:24)
[2019-04-06] MEDS: ATORVASTATIN CA 40 MG TABLET (FP) PO SCH (22:24)
[2019-04-06] MEDS: HEPARIN NA (PORCINE) 5,000 UNITS/ML 1ML VIAL SQ SCH (22:24)
[2019-04-06] MEDS: RANOLAZINE E.R. 500 MG TABLET (FP) PO SCH (22:25)
[2019-04-07] MEDS ORDERED: DEXTROSE 5%-WATER - 50 ML IVPB ONE ×3 (02:04→17:35)
[2019-04-07] MEDS ORDERED: PIPERACILLIN/TAZOBACTAM 3.375 GM VIAL IVPB ONE ×3 (02:04→17:35)
[2019-04-07] MEDS: PIPERACILLIN/TAZOB 3.375 GM 3.375 GM in DEXTROSE 5%-WATER - 50 ML IVPB SCH ×3 (02:30→17:38)
[2019-04-07] MEDS: GABAPENTIN 300 MG CAPSULE PO SCH ×3 (06:11→22:34)
[2019-04-07] MEDS: INSULIN SLIDING SCALE (NOVOLOG) 1 VIAL SQ SCH ×4 (06:11→22:36)
[2019-04-07] MEDS: LEVOTHYROXINE NA 88 MCG TABLET (FP) PO SCH (06:11)
[2019-04-07] MEDS: SODIUM CHLORIDE 1,000 ML IV SCH (06:11)
[2019-04-07 08:31] LABS: HEMATOCRIT 28.3 % (32.4-45.2); HEMOGLOBIN 9.5 GM/dL (10.7-15.3); MCH 30.7 pg (25.7-33.7); MCHC 33.7 g/dl (32.0-36.0); MEAN CELL VOLUME 91.1 fl (80-96); MEAN PLT VOLUME 8.7 fl (7.5-11.1); PLATELET COUNT 220 K/MM3 (134-434); RBC 3.11 M/mm3 (3.60-5.2); RDW 13.9 % (11.6-15.6); WHITE BLOOD COUNT 9.3 K/mm3 (4.0-10.0)
[2019-04-07 08:50] LABS: BLOOD UREA NITROGEN 29.7 mg/dL (7-18); CALCIUM 8.4 mg/dL (8.5-10.1); CREATININE 1.4 mg/dL (0.55-1.3); MAGNESIUM 2.3 mg/dL (1.8-2.4); POTASSIUM 4.1 mmol/L (3.5-5.1)
[2019-04-07] MEDS: HEPARIN NA (PORCINE) 5,000 UNITS/ML 1ML VIAL SQ SCH ×2 (09:43→22:34)
[2019-04-07] MEDS: CLOPIDOGREL BISULFATE 75 MG TABLET (FP) PO SCH (09:43)
[2019-04-07] MEDS: RANOLAZINE E.R. 500 MG TABLET (FP) PO SCH ×2 (09:43→22:41)
[2019-04-07] MEDS: FUROSEMIDE 20 MG TABLET (FP) PO SCH (09:43)
[2019-04-07] MEDS: ASPIRIN 81 MG CHEWABLE TABLETS PO SCH (09:43)
[2019-04-07] MEDS: CARVEDILOL 12.5 MG TABLET (FP) PO SCH ×2 (09:43→22:34)
[2019-04-07] MEDS: EZETIMIBE 10 MG TABLET (FP) PO SCH (09:43)
[2019-04-07] MEDS: PANTOPRAZOLE 40 MG TABLET PO SCH (09:43)
--- NOTE | 2019-04-07 11:41 | CON.ID ---
Consult Consult Specialty:: infectious diseases Referred by:: Vicky Reason for Consultation:: infected left 4th finger,cellulitis of the leg - History of Present Illness Chief Complaint: non healing wound of the 4th finger of left foot History of Present Illness: 83 year old female with a significant past medical history of hypertension, diabetes 2, hld, CHF, GERD, neuropathy, chronic diffuse pain, hypothyroidism, chronic L great toe osteomyelitis and NSTEMI. Patient presents from her doctors office for left 4th toe redness with left 4th toe ulcer and redness from this toe that extends up to her anterior left foot. Patient has had worsening redness of this toe for the last week and she went to see per PCP to report it. patient has had drainage from the toe and swelling of the toe She denies fever, chest pain, palpitations, abdominal pain. she had a hospitalization 1 year ago for prior gangrene/infection to 1st toe on left foot. No recent injury or falls, no trauma of this foot. 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) Endocrine: Yes: Diabetes Mellitus, Hypothyroidism - Alcohol/Substance Use Hx Alcohol Use: No - Smoking History Smoking history: Never smoked Have you smoked in the past 12 months: No Aproximately how many cigarettes per day: 0 Home Medications - Allergies Allergies/Adverse Reactions: Allergies Allergy/AdvReac Type Severity Reaction Status Date / Time No Known Drug Allergies Allergy Verified 04/06/19 10:27 - Home Medications Home Medications: Ambulatory Orders Aspirin [ASA -] 81 mg PO DAILY 08/20/17 Carvedilol [Coreg -] 12.5 mg PO BID 08/20/17 Levothyroxine [Synthroid -] 88 mcg PO DAILY 08/20/17 Ranolazine [Ranexa] 500 mg PO BID 08/20/17 Atorvastatin Ca [Lipitor] 40 mg PO HS #30 tablet 09/21/17 Gabapentin [Neurontin -] 600 mg PO TID 02/25/18 Insulin Detemir [Levemir Flextouch] 35 unit SQ HS 02/25/18 Magnesium Hydrox 2400MG/30Ml [Milk of Magnesia -] 30 ml PO DAILY PRN cup Clopidogrel Bisulfate [Plavix -] 75 mg PO DAILY tablet 08/24/18 Docusate Sodium [Colace -] 300 mg PO HS capsule 08/24/18 Ezetimibe [Zetia -] 10 mg PO DAILY tablet 08/24/18 Furosemide [Lasix -] 20 mg PO DAILY tablet 08/24/18 Insulin Sliding Scale [Novolog Vial Sliding Scale -] 1 vial SQ ACHS units 08/24 Nitroglycerin Sublingual [Nitrostat -] 0.4 mg SL Q5M PRN tab 08/24/18 Pantoprazole Sodium [Protonix -] 40 mg PO DAILY tablet.ec 08/24/18 Polyethylene Glycol 3350 [Miralax 119 gm Btl -] 17 gm PO DAILY bottle 08/24/18 Sennosides [Senna -] 2 tab PO HS tablet 08/24/18 Acetaminophen 650 mg PO DAILY PRN MDD 1950 09/08/18 Review of Systems - Review of Systems Constitutional: reports: Chills Eyes: reports: No Symptoms HENT: reports: No Symptoms Neck: reports: No Symptoms Cardiovascular: reports: No Symptoms Respiratory: reports: No Symptoms Gastrointestinal: reports: No Symptoms Genitourinary: reports: No Symptoms Musculoskeletal: reports: No Symptoms Integumentary: reports: Erythema, Wound, Other (change in the vcolor) Neurological: reports: No Symptoms Endocrine: reports: No Symptoms Hematology/Lymphatic: reports: No Symptoms Psychiatric: reports: No Symptoms Physical Exam Vital Signs: Vital Signs Temperature 98.6 F 04/07/19 05:00 Pulse Rate 56 L 04/07/19 05:00 Respiratory Rate 16 04/07/19 05:00 Blood Pressure 116/51 L 04/07/19 05:00 O2 Sat by Pulse Oximetry (%) 96 04/06/19 23:15 Constitutional: Yes: Well Nourished, Calm, Mild Distress HENT: Yes: Atraumatic, Normocephalic Neck: Yes: Supple, Trachea Midline Cardiovascular: Yes: Regular Rate and Rhythm Respiratory: Yes: Regular, CTA Bilaterally Gastrointestinal: Yes: Normal Bowel Sounds, Soft Musculoskeletal: Yes: WNL Extremities: Yes: Erythema (of the left foot), Other Integumentary: Yes: Other (wound on the 4th toe with cellulitis and swelling) Wound/Incision: Yes: Other Neurological: Yes: Alert, Oriented Psychiatric: Yes: Alert, Oriented Labs: CBC, BMP 04/07/19 07:10 04/07/19 07:10 Imaging - Results Chest X-ray: Report Reviewed, Image Reviewed X-ray: Report Reviewed, Image Reviewed Assessment/Plan this lady coming with infection of the 4th toe and as far asi i think this patient has osteo i am going to order mri and i am going to continue zosyn will see what the imaging studies shows also will wait for cx repot
[2019-04-07] MEDS ORDERED: POLYETHYLENE GLYCOL 3350 119 GM BTL PO ONE (12:07)
--- NOTE | 2019-04-07 12:56 | CONSULT ---
Consult Consult Specialty:: Podiatry Reason for Consultation:: Cellulitis wound left foot 4th toe - History of Present Illness History of Present Illness: Daughter states wound has been present for 5 days. After itching between her toes. No tx till came to hospital. 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) Endocrine: Yes: Diabetes Mellitus, Hypothyroidism - Alcohol/Substance Use Hx Alcohol Use: No - Smoking History Smoking history: Never smoked Have you smoked in the past 12 months: No Aproximately how many cigarettes per day: 0 Home Medications - Allergies Allergies/Adverse Reactions: Allergies Allergy/AdvReac Type Severity Reaction Status Date / Time No Known Drug Allergies Allergy Verified 04/06/19 10:27 - Home Medications Home Medications: Ambulatory Orders Aspirin [ASA -] 81 mg PO DAILY 08/20/17 Carvedilol [Coreg -] 12.5 mg PO BID 08/20/17 Levothyroxine [Synthroid -] 88 mcg PO DAILY 08/20/17 Ranolazine [Ranexa] 500 mg PO BID 08/20/17 Atorvastatin Ca [Lipitor] 40 mg PO HS #30 tablet 09/21/17 Gabapentin [Neurontin -] 600 mg PO TID 02/25/18 Insulin Detemir [Levemir Flextouch] 35 unit SQ HS 02/25/18 Magnesium Hydrox 2400MG/30Ml [Milk of Magnesia -] 30 ml PO DAILY PRN cup Clopidogrel Bisulfate [Plavix -] 75 mg PO DAILY tablet 08/24/18 Docusate Sodium [Colace -] 300 mg PO HS capsule 08/24/18 Ezetimibe [Zetia -] 10 mg PO DAILY tablet 08/24/18 Furosemide [Lasix -] 20 mg PO DAILY tablet 08/24/18 Insulin Sliding Scale [Novolog Vial Sliding Scale -] 1 vial SQ ACHS units 08/24 Nitroglycerin Sublingual [Nitrostat -] 0.4 mg SL Q5M PRN tab 08/24/18 Pantoprazole Sodium [Protonix -] 40 mg PO DAILY tablet.ec 08/24/18 Polyethylene Glycol 3350 [Miralax 119 gm Btl -] 17 gm PO DAILY bottle 08/24/18 Sennosides [Senna -] 2 tab PO HS tablet 08/24/18 Acetaminophen 650 mg PO DAILY PRN MDD 1950 09/08/18 Physical Exam Vital Signs: Vital Signs Temperature 98.6 F 04/07/19 05:00 Pulse Rate 56 L 04/07/19 05:00 Respiratory Rate 16 04/07/19 05:00 Blood Pressure 116/51 L 04/07/19 05:00 O2 Sat by Pulse Oximetry (%) 96 04/06/19 23:15 Extremities: Yes: Other (+cellulitis left foot 4th toe, +wound left 4th toe, + maceration 4th toe left, non palpable pulses, -drainage, -mal odor,) Labs: CBC, BMP 04/07/19 07:10 04/07/19 07:10 Imaging - Results X-ray: Image Reviewed Assessment/Plan cellulitis 4th toe left wound 4th toe left Vasvular consult. Awaiting MRI. Will follow. Betadine swab in between toes left foot daily. xray reviewed.
--- NOTE | 2019-04-07 13:52 | EKG ---
Test Reason : Blood Pressure : / mmHG Vent. Rate : 067 BPM Atrial Rate : 067 BPM P-R Int : 174 ms QRS Dur : 084 ms QT Int : 394 ms P-R-T Axes : 049 010 118 degrees QTc Int : 416 ms POOR DATA QUALITY, INTERPRETATION MAY BE ADVERSELY AFFECTED NORMAL SINUS RHYTHM ABNORMAL ECG WHEN COMPARED WITH ECG OF 08-SEP-2018 02:13, NONSPECIFIC T WAVE ABNORMALITY HAS REPLACED INVERTED T WAVES IN ANTERIOR LEADS Confirmed by MARIVEL LOPEZ MD ([id number]) on 04/07/2019 1:52:37 PM Referred By: Confirmed By:MARIVEL LOPEZ MD
--- NOTE | 2019-04-07 16:05 | CONSULT ---
- Consultation REQUESTING PROVIDER: CONSULT REQUEST: We have been asked to surgically evaluate this patient for toe ulcer/vascular evaluation. PCP:Cristiana Apodaca NP HISTORY OF PRESENT ILLNESS: 83 y/o F w/ PMHx hypertension, diabetes 2, hld, CHF , GERD, neuropathy, chronic diffuse pain, hypothyroidism, chronic L great toe osteomyelitis and NSTEMI, now sent in from [facility] (Dr Read's office) for new left 4th toe redness/ulcer. Daughter bedside, reports mother complained of foot/ toe pain 5 days ago. She noted an ulcer and has been applying Bacitracin to it. Reports worsening. Pt was seen by Dr Read in the office and sent to the hospital for further care. Endorses chills at home, has not checked her fever. Reports scant drainage. No recent abx, denies recent injury or falls, denies trauma to the foot. Denies cp/sob, n/v/d. At baseline pt lives home with daughter who assists with all ADLS. Travels to [place] to visit son for 3 months at a time one-two times per year (returned recently). Pt ambulated in home with walker and cane, does not ambulate outdoors. Endorses calf pain with a few steps of ambulation within home. No rest pain. Of note pt was hospitalized at [facility] 11/22-11/30/17 for L great toe osteomyelitis. Pt was treated with PICC line (Vanco/Zosyn, Ceftriaxone) and underwent HBO trtmt x 3 months with improvement in toe. PAST MEDICAL/SURGICAL HISTORY: hypertension, diabetes 2, hld, CHF, GERD, neuropathy, chronic diffuse pain, hypothyroidism, chronic L great toe osteomyelitis and NSTEMI, S/P CABG (coronary artery bypass graft) Home Medications Medication Instructions Recorded Aspirin [ASA -] 81 mg PO DAILY 08/20/17 Carvedilol [Coreg -] 12.5 mg PO BID 08/20/17 Levothyroxine [Synthroid -] 88 mcg PO DAILY 08/20/17 Ranolazine [Ranexa] 500 mg PO BID 08/20/17 Atorvastatin Ca [Lipitor] 40 mg PO HS #30 tablet 09/21/17 Gabapentin [Neurontin -] 600 mg PO TID 02/25/18 Insulin Detemir [Levemir Flextouch] 35 unit SQ HS 02/25/18 Magnesium Hydrox 2400MG/30Ml [Milk 30 ml PO DAILY PRN cup 03/01/18 of Magnesia -] Clopidogrel Bisulfate [Plavix -] 75 mg PO DAILY tablet 08/24/18 Docusate Sodium [Colace -] 300 mg PO HS capsule 08/24/18 Ezetimibe [Zetia -] 10 mg PO DAILY tablet 08/24/18 Furosemide [Lasix -] 20 mg PO DAILY tablet 08/24/18 Insulin Sliding Scale [Novolog 1 vial SQ ACHS units 08/24/18 Vial Sliding Scale -] Nitroglycerin Sublingual 0.4 mg SL Q5M PRN tab 08/24/18 [Nitrostat -] Pantoprazole Sodium [Protonix -] 40 mg PO DAILY tablet.ec 08/24/18 Polyethylene Glycol 3350 [Miralax 17 gm PO DAILY bottle 08/24/18 119 gm Btl -] Sennosides [Senna -] 2 tab PO HS tablet 08/24/18 Acetaminophen 650 mg PO DAILY PRN MDD 1950 09/08/18 Allergies Allergy/AdvReac Type Severity Reaction Status Date / Time No Known Drug Allergies Allergy Verified 04/06/19 10:27 REVIEW OF SYSTEMS: CONSTITUTIONAL: + chills CARDIOVASCULAR: Absent: chest pain RESPIRATORY: Absent: cough, shortness of breath GASTROINTESTINAL: Absent: abdominal pain PHYSICAL EXAM: GENERAL: Awake, alert, and fully oriented, in no acute distress. Daughter at bedside HEAD: Normal with no signs of trauma. LOWER EXTREMITIES: R foot with no ulcers or open wounds. L foot with approx 1.5x1.5cm ulcer at lateral aspect of 4th toe. +fibrinous exudate, scant serous drainage. No foul odor. + ttp. +erythema and trace edema extending from toe to mid foot. Vasc: R pt/dp with biphasic signals, L dp with monophasic signal, no PT signal. Feet warm. SILT, motor intact. Vital Signs Temperature 98.7 F 04/07/19 15:06 Pulse Rate 57 L 04/07/19 15:06 Respiratory Rate 19 04/07/19 10:00 Blood Pressure 106/42 L 04/07/19 15:06 O2 Sat by Pulse Oximetry (%) 95 04/07/19 09:00 Lab Results WBC 9.3 K/mm3 (4.0-10.0) 04/07/19 07:10 RBC 3.11 M/mm3 (3.60-5.2) L 04/07/19 07:10 Hgb 9.5 GM/dL (10.7-15.3) L 04/07/19 07:10 Hct 28.3 % (32.4-45.2) L 04/07/19 07:10 MCV 91.1 fl (80-96) 04/07/19 07:10 MCHC 33.7 g/dl (32.0-36.0) 04/07/19 07:10 RDW 13.9 % (11.6-15.6) 04/07/19 07:10 Plt Count 220 K/MM3 (134-434) 04/07/19 07:10 Sodium 133 mmol/L (136-145) L 04/07/19 07:10 Potassium 4.1 mmol/L (3.5-5.1) 04/07/19 07:10 Chloride 101 mmol/L (98-107) 04/07/19 07:10 Carbon Dioxide 27 mmol/L (21-32) 04/07/19 07:10 Anion Gap 5 MMOL/L (8-16) L 04/07/19 07:10 BUN 29.7 mg/dL (7-18) H 04/07/19 07:10 Creatinine 1.4 mg/dL (0.55-1.3) H 04/07/19 07:10 Random Glucose 163 mg/dL (74-106) H 04/07/19 07:10 Calcium 8.4 mg/dL (8.5-10.1) L 04/07/19 07:10 INR 1.11 (0.83-1.09) H 04/06/19 13:20 Foot xray (04/06/19): no blastic/lytic changes seen A/P: 83 y/o F w/ PMHx hypertension, diabetes 2, hld, CHF, GERD, neuropathy, chronic diffuse pain, hypothyroidism, chronic L great toe osteomyelitis and NSTEMI, now sent in from [facility] (Dr Read's office) for new left 4th toe redness/ulcer. Pt with infected 4th toe ulcer in setting of known vascular disease. CTA from November 2017 with predominantly femoropopliteal and infrapopliteal atherosclerotic disease and single vessel runoff via peroneal arteries. Creatinine elevated -Will need updated vascular studies, however current creatinine is 1.4 -Woundcare per Podiatry -IV abx per ID -Message sent to attending regarding above
[2019-04-07] MEDS ORDERED: INSULIN (LEVEMIR) 100 UNITS/ML UNITS SQ SCH (17:07)
--- NOTE | 2019-04-07 18:52 | PN ---
Physical Exam: SUBJECTIVE: Patient seen and examined, sitting up eating her lunch. denies chest pain or shortness. having some nasal congestion. OBJECTIVE: Patient is an 83 year old female with a significant past medical history of hypertension, diabetes 2, hld, CHF, GERD, neuropathy, chronic diffuse pain, hypothyroidism, chronic L great toe osteomyelitis and NSTEMI. Patient presents from her doctors office for left 4th toe redness with left 4th toe ulcer and redness from this toe that extends up to her anterior left foot. Patient has had worsening redness of this toe for the last week and she went to see per PCP to report it. She reports some drainage from the left toe that was cultured in the ED. Her blood cultures were also collected and lactic acid is normal. She is able to move her foot without any difficulty but pain on touch of the toe. She had a hospitalization 1 year ago for prior gangrene/infection to 1st toe on left foot. No recent injury or falls, no trauma of this foot. foot xray is negative for acute fracture. Period Temp Pulse Resp BP Sys/Ibarra Pulse Ox Last 24 Hr 97.4 F-99.9 F 56-77 16-19 90-116/39-69 95-96 GENERAL: Awake, alert, and fully oriented, in no acute distress. having some chills in the ED, low grade fever. HEAD: Normal with no signs of trauma. EYES: Pupils equal, round and reactive to light, extraocular movements intact, sclera anicteric, conjunctiva clear. No lid lag. EARS, NOSE, THROAT: Ears normal, nares patent, oropharynx clear without exudates. Moist mucous membranes. NECK: Normal range of motion, supple without lymphadenopathy, JVD, or masses. LUNGS: Breath sounds equal, clear to auscultation bilaterally. No wheezes, and no crackles. No accessory muscle use. HEART: Regular rate and rhythm ABDOMEN: Soft, nontender, obese abdomen MUSCULOSKELETAL: Normal range of motion at all joints. No bony deformities or tenderness. No CVA tenderness. UPPER EXTREMITIES: 2+ pulses, warm, well-perfused. No cyanosis. No clubbing. No peripheral edema. LOWER EXTREMITIES: left foot left foot appears erythematous from 4th toe to the anterior of foot. left great toe with small ulcer that is drainage clear fluid. cultured in the Ed. 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. Normal gait. Laboratory Results - last 24 hr 04/06/19 04/07/19 04/07/19 22:21 06:08 07:10 WBC 9.3 RBC 3.11 L Hgb 9.5 L Hct 28.3 L MCV 91.1 MCH 30.7 MCHC 33.7 RDW 13.9 Plt Count 220 MPV 8.7 Sodium Potassium Chloride Carbon Dioxide Anion Gap BUN Creatinine Est GFR (CKD-EPI)AfAm Est GFR (CKD-EPI)NonAf POC Glucometer 348 173 Random Glucose Calcium Magnesium C-Reactive Protein 04/07/19 04/07/19 04/07/19 07:10 11:25 16:25 WBC RBC Hgb Hct MCV MCH MCHC RDW Plt Count MPV Sodium 133 L Potassium 4.1 Chloride 101 Carbon Dioxide 27 Anion Gap 5 L BUN 29.7 H Creatinine 1.4 H Est GFR (CKD-EPI)AfAm 40.17 Est GFR (CKD-EPI)NonAf 34.66 POC Glucometer 253 219 Random Glucose 163 H Calcium 8.4 L Magnesium 2.3 C-Reactive Protein 4.6 H Active Medications Generic Name Dose Route Start Last Admin Trade Name Freq PRN Reason Stop Dose Admin Acetaminophen 650 mg 04/06/19 17:25 Tylenol - PO Q6H PRN FEVER Albuterol/Ipratropium 1 amp 04/06/19 17:26 Duoneb - NEB Q6H PRN SHORTNESS OF BREATH Aspirin 81 mg 04/07/19 10:00 04/07/19 09:43 Asa - PO 81 mg DAILY [facility] Administration Atorvastatin Calcium 40 mg 04/06/19 22:00 04/06/19 22:24 Lipitor - PO 40 mg HS [facility] Administration Carvedilol 12.5 mg 04/06/19 22:00 04/07/19 09:43 Coreg - PO 12.5 mg BID [facility] Administration Clopidogrel Bisulfate 75 mg 04/07/19 10:00 04/07/19 09:43 Plavix - PO 75 mg DAILY [facility] Administration Ezetimibe 10 mg 04/07/19 10:00 04/07/19 09:43 Zetia - PO 10 mg DAILY [facility] Administration Furosemide 20 mg 04/07/19 10:00 04/07/19 09:43 Lasix - PO 20 mg DAILY [facility] Administration Gabapentin 600 mg 04/06/19 22:00 04/07/19 14:36 Neurontin - PO 600 mg TID [facility] Administration Heparin Sodium (Porcine) 5,000 unit 04/06/19 22:00 04/07/19 09:43 Heparin - SQ 5,000 unit BID [facility] Administration Piperacillin Sod/Tazobactam 50 mls @ 100 mls/hr 04/07/19 02:00 04/07/19 17:38 Sod 3.375 gm/ Dextrose IVPB 100 mls/hr Q8H-IV [facility] Administration Protocol Insulin Aspart 1 vial 04/07/19 17:08 Novolog Vial Sliding Scale - SQ ACHS [facility] Protocol Insulin Detemir 15 units 04/07/19 17:07 Levemir Vial SQ HS [facility] Levothyroxine Sodium 88 mcg 04/07/19 07:00 04/07/19 06:11 Synthroid - PO 88 mcg AM [facility] Administration Pantoprazole Sodium 40 mg 04/07/19 10:00 04/07/19 09:43 Protonix - PO 40 mg DAILY [facility] Administration Ranolazine 500 mg 04/06/19 22:00 04/07/19 09:43 Ranexa - PO 500 mg BID [facility] Administration ASSESSMENT/PLAN: Problem List - Problems (1) Cellulitis Assessment/Plan: left foot cellulitis, left 4th toe cellulitis/edema with erythma extending to left anterior foot. on zosyn per id. left foot xray negative for fracture has history of left great toe cellulitis blood and urine cultures pending lactic acid normal ID and podiatry consulted mri ordered to rule out osteo Code(s): L03.90 - CELLULITIS, UNSPECIFIED (2) S/P CABG (coronary artery bypass graft) Assessment/Plan: continue home meds no chest pain Code(s): Z95.1 - PRESENCE OF AORTOCORONARY BYPASS GRAFT (3) Type 2 diabetes mellitus Assessment/Plan: novolg and levemir diabetic diet a1c in a.m. levemir increased Code(s): E11.9 - TYPE 2 DIABETES MELLITUS WITHOUT COMPLICATIONS Qualifiers: Diabetes mellitus superintendent terminal insulin use: unspecified senior living insulin use status Diabetes mellitus complication status: with neurologic complications Diabetes mellitus complication detail: with polyneuropathy Qualified Code(s): E11.42 - Type 2 diabetes mellitus with diabetic polyneuropathy (4) COPD (chronic obstructive pulmonary disease) Assessment/Plan: duonedina prn Code(s): J44.9 - CHRONIC OBSTRUCTIVE PULMONARY DISEASE, UNSPECIFIED (5) CAD (coronary artery disease) Code(s): I25.10 - ATHSCL HEART DISEASE OF [place] CORONARY ARTERY W/O ANG PCTRS Qualifiers: Coronary Disease-Associated Artery/Lesion type: [place] artery [place] vs. transplanted heart: [place] heart Associated angina: with unstable angina Qualified Code(s): I25.110 - Atherosclerotic heart disease of [place] coronary artery with unstable angina pectoris (6) CHF (congestive heart failure) Assessment/Plan: monitor intake and output. on lasix. Code(s): I50.9 - HEART FAILURE, UNSPECIFIED Qualifiers: Heart failure type: unspecified Heart failure chronicity: acute on chronic Qualified Code(s): I50.9 - Heart failure, unspecified (7) CKD (chronic kidney disease) stage 3, GFR 30-59 ml/min Assessment/Plan: daily monitoring of kidney function appears to be at her baseline if worsening ckd, will consult renal renal dose meds Code(s): N18.3 - CHRONIC KIDNEY DISEASE, STAGE 3 (MODERATE) (8) Prophylactic measure Assessment/Plan: fen toleraring po stop ivf monitor electrolyes full code Code(s): Z29.9 - ENCOUNTER FOR PROPHYLACTIC MEASURES, UNSPECIFIED Visit type - Emergency Visit Emergency Visit: Yes ED Registration Date: 04/06/19 Care time: The patient presented to the Emergency Department on the above date and was hospitalized for further evaluation of their emergent condition. - New Patient This patient is new to me today: No - Critical Care Critical Care patient: No - Discharge Referral Referred to [facility] No
[2019-04-07] MEDS: ATORVASTATIN CA 40 MG TABLET (FP) PO SCH (22:33)
[2019-04-08] MEDS ORDERED: PT OWN MED DRAWER 7, Y5N ONE (02:10)
[2019-04-08] MEDS ORDERED: DEXTROSE 5%-WATER - 50 ML IVPB ONE ×3 (02:11→17:48)
[2019-04-08] MEDS ORDERED: PIPERACILLIN/TAZOBACTAM 3.375 GM VIAL IVPB ONE ×3 (02:11→17:48)
[2019-04-08] MEDS: PIPERACILLIN/TAZOB 3.375 GM 3.375 GM in DEXTROSE 5%-WATER - 50 ML IVPB SCH ×3 (02:15→18:08)
[2019-04-08] MEDS: ACETAMINOPHEN 325 MG TABLET (FP) PO PRN (02:44)
[2019-04-08] MEDS: LEVOTHYROXINE NA 88 MCG TABLET (FP) PO SCH (06:08)
[2019-04-08] MEDS: INSULIN SLIDING SCALE (NOVOLOG) 1 VIAL SQ SCH ×4 (06:09→21:56)
[2019-04-08] MEDS: GABAPENTIN 300 MG CAPSULE PO SCH ×3 (06:09→21:51)
--- NOTE | 2019-04-08 09:19 | PN ---
Progress Note, Physician Chief Complaint: FUV left foot - Current Medication List Current Medications: Active Medications Acetaminophen (Tylenol -) 650 mg PO Q6H PRN PRN Reason: FEVER Last Admin: 04/08/19 02:44 Dose: 650 mg Albuterol/Ipratropium (Duoneb -) 1 amp NEB Q6H PRN PRN Reason: SHORTNESS OF BREATH Last Admin: 04/08/19 03:25 Dose: 1 amp Aspirin (Asa -) 81 mg PO DAILY [facility] Last Admin: 04/07/19 09:43 Dose: 81 mg Atorvastatin Calcium (Lipitor -) 40 mg PO HS [facility] Last Admin: 04/07/19 22:33 Dose: 40 mg Carvedilol (Coreg -) 12.5 mg PO BID [facility] Last Admin: 04/07/19 22:34 Dose: 12.5 mg Clopidogrel Bisulfate (Plavix -) 75 mg PO DAILY [facility] Last Admin: 04/07/19 09:43 Dose: 75 mg Ezetimibe (Zetia -) 10 mg PO DAILY [facility] Last Admin: 04/07/19 09:43 Dose: 10 mg Furosemide (Lasix -) 20 mg PO DAILY [facility] Last Admin: 04/07/19 09:43 Dose: 20 mg Gabapentin (Neurontin -) 600 mg PO TID [facility] Last Admin: 04/08/19 06:09 Dose: 600 mg Heparin Sodium (Porcine) (Heparin -) 5,000 unit SQ BID [facility] Last Admin: 04/07/19 22:34 Dose: 5,000 unit Piperacillin Sod/Tazobactam (Sod 3.375 gm/ Dextrose) 50 mls @ 100 mls/hr IVPB Q8H-IV [facility]; Protocol Last Admin: 04/08/19 02:15 Dose: 100 mls/hr Insulin Aspart (Novolog Vial Sliding Scale -) 1 vial SQ ACHS [facility]; Protocol Last Admin: 04/08/19 06:09 Dose: 4 units Insulin Detemir (Levemir Vial) 20 units SQ HS [facility] Levothyroxine Sodium (Synthroid -) 88 mcg PO AM [facility] Last Admin: 04/08/19 06:08 Dose: 88 mcg Pantoprazole Sodium (Protonix -) 40 mg PO DAILY [facility] Last Admin: 04/07/19 09:43 Dose: 40 mg Ranolazine (Ranexa -) 500 mg PO BID [facility] Last Admin: 04/07/19 22:41 Dose: 500 mg - Objective Vital Signs: Vital Signs Temperature 99.4 F 04/08/19 06:00 Pulse Rate 56 L 04/08/19 06:00 Respiratory Rate 18 04/08/19 06:00 Blood Pressure 128/53 L 04/08/19 06:00 O2 Sat by Pulse Oximetry (%) 95 04/07/19 09:00 Extremities: Yes: Other (uminproved cellultis and wound left 4th toe, no dressing or betadine applied to wound at this time) Labs: INR, PTT INR 1.11 (0.83-1.09) H 04/06/19 13:20 Assessment/Plan cellulitis 4th toe left wound 4th toe left Vascular consult. Awaiting MRI. Will follow. Betadine swab in between toes left foot daily. xray reviewed.
[2019-04-08 09:21] LABS: BASO % 0.6 % (0-2.0); EOS % 2.3 % (0-4.5); HEMATOCRIT 28.6 % (32.4-45.2); HEMOGLOBIN 9.5 GM/dL (10.7-15.3); MCH 30.3 pg (25.7-33.7); MCHC 33.3 g/dl (32.0-36.0); MEAN CELL VOLUME 91.1 fl (80-96); MEAN PLT VOLUME 8.7 fl (7.5-11.1); MONO % 9.1 % (3.8-10.2); PLATELET COUNT 229 K/MM3 (134-434); RBC 3.14 M/mm3 (3.60-5.2); RDW 13.8 % (11.6-15.6); WHITE BLOOD COUNT 11.5 K/mm3 (4.0-10.0)
[2019-04-08 09:56] LABS: ALBUMIN 2.8 g/dl (3.4-5.0); BILIRUBIN,TOTAL 0.6 mg/dL (0.2-1); BLOOD UREA NITROGEN 29.4 mg/dL (7-18); CALCIUM 8.6 mg/dL (8.5-10.1); CREATININE 1.4 mg/dL (0.55-1.3); MAGNESIUM 2.4 mg/dL (1.8-2.4); POTASSIUM 4.8 mmol/L (3.5-5.1); TOT PROT 6.6 g/dl (6.4-8.2)
[2019-04-08 10:20] LABS: ERYTHROCYTE SEDIMENTATION RATE 103 mm/hr (0-30)
[2019-04-08] MEDS: PANTOPRAZOLE 40 MG TABLET PO SCH (10:20)
[2019-04-08] MEDS: ASPIRIN 81 MG CHEWABLE TABLETS PO SCH (10:20)
[2019-04-08] MEDS: FUROSEMIDE 20 MG TABLET (FP) PO SCH (10:20)
[2019-04-08] MEDS: CARVEDILOL 12.5 MG TABLET (FP) PO SCH ×2 (10:20→21:51)
[2019-04-08] MEDS: EZETIMIBE 10 MG TABLET (FP) PO SCH (10:20)
[2019-04-08] MEDS: RANOLAZINE E.R. 500 MG TABLET (FP) PO SCH ×2 (10:21→21:52)
[2019-04-08] MEDS: CLOPIDOGREL BISULFATE 75 MG TABLET (FP) PO SCH (10:21)
[2019-04-08] MEDS: HEPARIN NA (PORCINE) 5,000 UNITS/ML 1ML VIAL SQ SCH ×2 (10:21→21:51)
[2019-04-08] MEDS ORDERED: INSULIN (NOVOLOG) ASPART 100 UNITS/ML 10ML VIAL ONE (11:43)
[2019-04-08] MEDS: ALBUTEROL SO4 2.5/IPRATROPIUM 0.5 INH SOL 3 ML VIAL.NEB. NEB SCH ×3 (12:00→19:45)
[2019-04-08] MEDS ORDERED: FUROSEMIDE 40 MG/4 ML INJECTABLE VIAL IVPUSH ONE (12:02)
--- NOTE | 2019-04-08 12:11 | PN ---
Progress Note, Physician History of Present Illness: stable no new issues - Current Medication List Current Medications: Active Medications Acetaminophen (Tylenol -) 650 mg PO Q6H PRN PRN Reason: FEVER Last Admin: 04/08/19 02:44 Dose: 650 mg Albuterol/Ipratropium (Duoneb -) 1 amp NEB RQID [facility] Aspirin (Asa -) 81 mg PO DAILY [facility] Last Admin: 04/08/19 10:20 Dose: 81 mg Atorvastatin Calcium (Lipitor -) 40 mg PO HS [facility] Last Admin: 04/07/19 22:33 Dose: 40 mg Carvedilol (Coreg -) 12.5 mg PO BID [facility] Last Admin: 04/08/19 10:20 Dose: 12.5 mg Clopidogrel Bisulfate (Plavix -) 75 mg PO DAILY [facility] Last Admin: 04/08/19 10:21 Dose: 75 mg Ezetimibe (Zetia -) 10 mg PO DAILY [facility] Last Admin: 04/08/19 10:20 Dose: 10 mg Furosemide (Lasix -) 20 mg PO DAILY [facility] Last Admin: 04/08/19 10:20 Dose: 20 mg Gabapentin (Neurontin -) 600 mg PO TID [facility] Last Admin: 04/08/19 06:09 Dose: 600 mg Heparin Sodium (Porcine) (Heparin -) 5,000 unit SQ BID [facility] Last Admin: 04/08/19 10:21 Dose: 5,000 unit Piperacillin Sod/Tazobactam (Sod 3.375 gm/ Dextrose) 50 mls @ 100 mls/hr IVPB Q8H-IV [facility]; Protocol Last Admin: 04/08/19 10:20 Dose: 100 mls/hr Insulin Aspart (Novolog Vial Sliding Scale -) 1 vial SQ ACHS [facility]; Protocol Last Admin: 04/08/19 06:09 Dose: 4 units Insulin Detemir (Levemir Vial) 20 units SQ HS [facility] Levothyroxine Sodium (Synthroid -) 88 mcg PO AM [facility] Last Admin: 04/08/19 06:08 Dose: 88 mcg Pantoprazole Sodium (Protonix -) 40 mg PO DAILY [facility] Last Admin: 04/08/19 10:20 Dose: 40 mg Ranolazine (Ranexa -) 500 mg PO BID [facility] Last Admin: 04/08/19 10:21 Dose: 500 mg - Objective Vital Signs: Vital Signs Temperature 99.4 F 04/08/19 06:00 Pulse Rate 56 L 04/08/19 06:00 Respiratory Rate 18 04/08/19 09:00 Blood Pressure 128/53 L 04/08/19 06:00 O2 Sat by Pulse Oximetry (%) 95 04/07/19 09:00 Constitutional: Yes: No Distress, Calm Cardiovascular: Yes: S1, S2 Respiratory: Yes: Regular, CTA Bilaterally Gastrointestinal: Yes: Normal Bowel Sounds, Soft Musculoskeletal: Yes: WNL Extremities: Yes: Other Neurological: Yes: Alert, Oriented Psychiatric: Yes: Alert, Oriented Labs: CBC, BMP 04/08/19 07:50 04/08/19 07:50 INR, PTT INR 1.11 (0.83-1.09) H 04/06/19 13:20 Assessment/Plan Problem List - Problems (1) Cellulitis Code(s): L03.90 - CELLULITIS, UNSPECIFIED (2) S/P CABG (coronary artery bypass graft) Code(s): Z95.1 - PRESENCE OF AORTOCORONARY BYPASS GRAFT (3) Type 2 diabetes mellitus Code(s): E11.9 - TYPE 2 DIABETES MELLITUS WITHOUT COMPLICATIONS Qualifiers: Diabetes mellitus senior care insulin use: unspecified rodent exterminator insulin use status Diabetes mellitus complication status: with neurologic complications Diabetes mellitus complication detail: with polyneuropathy Qualified Code(s): E11.42 - Type 2 diabetes mellitus with diabetic polyneuropathy (4) COPD (chronic obstructive pulmonary disease) Assessment/Plan: cookie prn Code(s): J44.9 - CHRONIC OBSTRUCTIVE PULMONARY DISEASE, UNSPECIFIED (5) CAD (coronary artery disease) Code(s): I25.10 - ATHSCL HEART DISEASE OF [place] CORONARY ARTERY W/O ANG PCTRS Qualifiers: Coronary Disease-Associated Artery/Lesion type: [place] artery [place] vs. transplanted heart: [place] heart Associated angina: with unstable angina Qualified Code(s): I25.110 - Atherosclerotic heart disease of [place] coronary artery with unstable angina pectoris (6) CHF (congestive heart failure) Code(s): I50.9 - HEART FAILURE, UNSPECIFIED Qualifiers: Heart failure type: unspecified Heart failure chronicity: acute on chronic Qualified Code(s): I50.9 - Heart failure, unspecified (7) CKD (chronic kidney disease) stage 3, GFR 30-59 ml/min Code(s): N18.3 - CHRONIC KIDNEY DISEASE, STAGE 3 (MODERATE) (8) Prophylactic measure Code(s): Z29.9 - ENCOUNTER FOR PROPHYLACTIC MEASURES, UNSPECIFIED plan continue current mgmt await for mri rest as per the team podiatry on board
--- NOTE | 2019-04-08 12:31 | CONSULT ---
Consult Consult Specialty:: Vascular Surgery - History of Present Illness History of Present Illness: 83 year old woman with DM and known PAD who presents with necrotic wound of left 4th toe. She was treated in the past for a toe wound of the left foot which healed with antibiotics. She had vascular work-up last year showing severe stenosis of the popliteal artery and single vessel runoff to the foot via peroneal artery. No intervention was attempted at that time. - History Source History Provided By: Medical Record Limitations to Obtaining History: Language Barrier 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) Endocrine: Yes: Diabetes Mellitus, Hypothyroidism - Alcohol/Substance Use Hx Alcohol Use: No - Smoking History Smoking history: Never smoked Have you smoked in the past 12 months: No Aproximately how many cigarettes per day: 0 Home Medications - Allergies Allergies/Adverse Reactions: Allergies Allergy/AdvReac Type Severity Reaction Status Date / Time No Known Drug Allergies Allergy Verified 04/06/19 10:27 - Home Medications Home Medications: Ambulatory Orders Aspirin [ASA -] 81 mg PO DAILY 08/20/17 Carvedilol [Coreg -] 12.5 mg PO BID 08/20/17 Levothyroxine [Synthroid -] 88 mcg PO DAILY 08/20/17 Ranolazine [Ranexa] 500 mg PO BID 08/20/17 Atorvastatin Ca [Lipitor] 40 mg PO HS #30 tablet 09/21/17 Gabapentin [Neurontin -] 600 mg PO TID 02/25/18 Insulin Detemir [Levemir Flextouch] 35 unit SQ HS 02/25/18 Magnesium Hydrox 2400MG/30Ml [Milk of Magnesia -] 30 ml PO DAILY PRN cup Clopidogrel Bisulfate [Plavix -] 75 mg PO DAILY tablet 08/24/18 Docusate Sodium [Colace -] 300 mg PO HS capsule 08/24/18 Ezetimibe [Zetia -] 10 mg PO DAILY tablet 08/24/18 Furosemide [Lasix -] 20 mg PO DAILY tablet 08/24/18 Insulin Sliding Scale [Novolog Vial Sliding Scale -] 1 vial SQ ACHS units 08/24 Nitroglycerin Sublingual [Nitrostat -] 0.4 mg SL Q5M PRN tab 08/24/18 Pantoprazole Sodium [Protonix -] 40 mg PO DAILY tablet.ec 08/24/18 Polyethylene Glycol 3350 [Miralax 119 gm Btl -] 17 gm PO DAILY bottle 08/24/18 Sennosides [Senna -] 2 tab PO HS tablet 08/24/18 Acetaminophen 650 mg PO DAILY PRN MDD 1950 09/08/18 Physical Exam Vital Signs: Vital Signs Temperature 99.4 F 04/08/19 06:00 Pulse Rate 56 L 04/08/19 06:00 Respiratory Rate 18 04/08/19 09:00 Blood Pressure 128/53 L 04/08/19 06:00 O2 Sat by Pulse Oximetry (%) 95 04/07/19 09:00 Constitutional: Yes: No Distress Extremities: Yes: Cool Edema: No Peripheral Pulses WNL: No (No palpable pulse left leg) Wound/Incision: Yes: Other (Necrotic wound left 4th toe, local cellulitis.) Labs: CBC, BMP 04/08/19 07:50 04/08/19 07:50 Problem List - Problems (1) Diabetic ulcer of toe associated with diabetes mellitus due to underlying condition Assessment/Plan: Ischemic appearing foot and wound of left foot. Prior imaging showed severe popliteal stenosis and tibial occlusions in left leg. Revascularization needed to improve healing potential. I will schedule Wednesday if time available in [place]. Code(s): E08.621 - DIABETES MELLITUS DUE TO UNDERLYING CONDITION W FOOT ULCER; L97.509 - NON-PRESSURE CHRONIC ULCER OTH PRT UNSP FOOT W UNSP SEVERITY Qualifiers: Laterality: left Non-pressure ulcer stage: unspecified non-pressure ulcer stage Qualified Code(s): E08.621 - Diabetes mellitus due to underlying condition with foot ulcer; L97.529 - Non-pressure chronic ulcer of other part of left foot with unspecified severity
--- NOTE | 2019-04-08 13:10 | CON.CARD ---
Consult Consult Specialty:: cardiology Reason for Consultation:: dyspnea; hx systolic CHF, CAD-->PCI - History of Present Illness Chief Complaint: Pt alert; c/o difficulty and pain on swallowing (for months), contstipation (for months); no chest pain; +cough with phlegm for weeks, with shortness of breth on mild exeriton. History of Present Illness: The patient is an 83 year old woman, with a significant past medical history of HTN, IDDM, HLD, CAD (s/p CABG, cardiac stenting and NSTEMI: positive serial TNI in July,), mild-moderate systolic CHF (08/19/2018 ECHO), GERD, overweight , neuropathy, hypothyroidism, and chronic L great toe osteomyelitis, who presents to the emergency department with 5 days of a progressively worsening left foot wound. She describes the wound as erythematous with purulent discharge. She denies recent fevers, chills, headache or dizziness. She denies recent nausea, vomit, diarrhea or constipation. She denies recent dysuria, frequency, urgency or hematuria. She denies recent chest pain or shortness of breath. Allergies: NKDA - History Source History Provided By: Patient, Medical Record Limitations to Obtaining History: Poor Historian - Past Medical History Cardio/Vascular: Yes: CHF (mild-moderate systolic dysfunction), HTN, Hyperlipdemia Gastrointestinal: Yes: Other (chronic abdominal pain) Reproductive: Yes: Postmenopausal ...: No Musculoskeletal: Yes: Other (chronic dyesthesias of bilateral upper and lower extremities) Endocrine: Yes: Diabetes Mellitus, Hypothyroidism - Alcohol/Substance Use Hx Alcohol Use: No - Smoking History Smoking history: Never smoked Have you smoked in the past 12 months: No Aproximately how many cigarettes per day: 0 Home Medications - Allergies Allergies/Adverse Reactions: Allergies Allergy/AdvReac Type Severity Reaction Status Date / Time No Known Drug Allergies Allergy Verified 04/06/19 10:27 - Home Medications Home Medications: Ambulatory Orders Aspirin [ASA -] 81 mg PO DAILY 08/20/17 Carvedilol [Coreg -] 12.5 mg PO BID 08/20/17 Levothyroxine [Synthroid -] 88 mcg PO DAILY 08/20/17 Ranolazine [Ranexa] 500 mg PO BID 08/20/17 Atorvastatin Ca [Lipitor] 40 mg PO HS #30 tablet 09/21/17 Gabapentin [Neurontin -] 600 mg PO TID 02/25/18 Insulin Detemir [Levemir Flextouch] 35 unit SQ HS 02/25/18 Magnesium Hydrox 2400MG/30Ml [Milk of Magnesia -] 30 ml PO DAILY PRN cup Clopidogrel Bisulfate [Plavix -] 75 mg PO DAILY tablet 08/24/18 Docusate Sodium [Colace -] 300 mg PO HS capsule 08/24/18 Ezetimibe [Zetia -] 10 mg PO DAILY tablet 08/24/18 Furosemide [Lasix -] 20 mg PO DAILY tablet 08/24/18 Insulin Sliding Scale [Novolog Vial Sliding Scale -] 1 vial SQ ACHS units 08/24 Nitroglycerin Sublingual [Nitrostat -] 0.4 mg SL Q5M PRN tab 08/24/18 Pantoprazole Sodium [Protonix -] 40 mg PO DAILY tablet.ec 08/24/18 Polyethylene Glycol 3350 [Miralax 119 gm Btl -] 17 gm PO DAILY bottle 08/24/18 Sennosides [Senna -] 2 tab PO HS tablet 08/24/18 Acetaminophen 650 mg PO DAILY PRN MDD 1950 09/08/18 Family Medical History Family History: Denies Review of Systems - Review of Systems Constitutional: reports: Weakness Eyes: reports: No Symptoms HENT: reports: Difficult Swallowing Neck: reports: Decreased ROM Cardiovascular: reports: Shortness of Breath Respiratory: reports: Exercise Intolerance, SOB on Exertion, Wheezing Gastrointestinal: reports: Indigestion, Nausea Genitourinary: reports: No Symptoms Breasts: reports: No Symptoms Reported Musculoskeletal: reports: Decreased ROM, Muscle Weakness Integumentary: reports: No Symptoms Neurological: reports: Weakness Endocrine: reports: No Symptoms Hematology/Lymphatic: reports: No Symptoms Psychiatric: reports: Anxiety - Risk Factors Known Risk Factors: Yes: Age, Hypercholesterolemia, Hypertension, Physical Inactivity, Other (CAD; systolic CHF) Vital Signs: Vital Signs Temperature 99.4 F 04/08/19 06:00 Pulse Rate 56 L 04/08/19 06:00 Respiratory Rate 18 04/08/19 09:00 Blood Pressure 128/53 L 04/08/19 06:00 O2 Sat by Pulse Oximetry (%) 95 04/07/19 09:00 Constitutional: Yes: Anxious, Obese Eyes: Yes: WNL HENT: Yes: WNL Neck: Yes: Decreased ROM Respiratory: Yes: Diminished, Tachypnea Gastrointestinal: Yes: Abdomen, Obese, Distention Renal/: No: Anuria JVD: Yes Carotid Bruit: No PMI: Non-Displaced Heart Sounds: Yes: S1, S2, S4 Murmur: Yes: Systolic Murmur, Grade 2 Musculoskeletal: Yes: Muscle Weakness Extremities: Yes: Cool Edema: No Peripheral Pulses WNL: Yes Integumentary: Yes: WNL Neurological: Yes: Alert, Oriented, Weakness Psychiatric: Yes: Alert, Other (anxiety) - Other Data Labs, Other Data: CBC, BMP 04/08/19 07:50 04/08/19 07:50 INR, PTT INR 1.11 (0.83-1.09) H 04/06/19 13:20 Troponin, BNP 04/08/19 07:50 Troponin I 0.05 Troponin, BNP 04/08/19 07:50 Troponin I 0.05 Abnormal Lab Results 04/09/19 04/09/19 06:30 06:30 WBC 12.0 H RBC 3.12 L Hgb 9.4 L Hct 28.3 L Monocytes % 11.0 H Sodium 135 L BUN 28.5 H Creatinine 1.6 H Random Glucose 69 L Calcium 8.4 L Albumin 2.9 L Echo: Report Reviewed Prior Cardiac Procedures: CABG, PTCA with Stent Ejection Fraction %: LVEF > or = 40 % Imaging - Results Chest X-ray: Image Reviewed EKG: Image Reviewed Problem List - Problems (1) Acute on chronic systolic (congestive) heart failure Assessment/Plan: on carvedilol Start lisinopril 2.5 mg daily. On furosemide; avoid excessive dehydration (+ renal insufficiency). CXR: no acute pathology. No JVD. F/u BUN/Cr, electrolytes, daily weight, Is and Os. Code(s): I50.23 - ACUTE ON CHRONIC SYSTOLIC (CONGESTIVE) HEART FAILURE (2) Cellulitis Assessment/Plan: Left LE cellulitis with wound. May require LE angiogram; being followed by vascular specialist. 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 F/u records. On Coreg, Ranexa; now on lisinopril. F/u lipids. F/u TSH. TNI < 0.02 Code(s): I25.10 - ATHSCL HEART DISEASE OF [place] CORONARY ARTERY W/O ANG PCTRS Qualifiers: Coronary Disease-Associated Artery/Lesion type: [place] artery [place] vs. transplanted heart: [place] heart Associated angina: with unstable angina Qualified Code(s): I25.110 - Atherosclerotic heart disease of [place] coronary artery with unstable angina pectoris (7) PAD (peripheral artery disease) Code(s): I73.9 - PERIPHERAL VASCULAR DISEASE, UNSPECIFIED (8) Anemia Code(s): D64.9 - ANEMIA, UNSPECIFIED (9) Hypothyroidism Assessment/Plan: On synthroid. F/u TFTs. Code(s): E03.9 - HYPOTHYROIDISM, UNSPECIFIED Qualifiers: Hypothyroidism type: unspecified Qualified Code(s): E03.9 - Hypothyroidism , unspecified
[2019-04-08] MEDS ORDERED: LISINOPRIL 5 MG TABLET (FP) PO ONE (13:11)
--- NOTE | 2019-04-08 13:38 | PN ---
Progress Note (short form) - Note Progress Note: PULMONARY CONSULTATION DICTATED 04/08/19 IMP DYSPNEA ACUTE ON CHRONIC SYSTOLIC CHF ASHD S/P NSTEMI,S/P CABG,STENTS DM HTN PVD LEFT GREAT TOE OSTEOMYELITIS PULMONARY HTN HYPOTHYROID GERD NEUROPATHY ACUTE ON CHRONIC KIDNEY DISEASE ANEMIA PLAN LASIX O2 INHALED BRONCHODILATORS ABX PER ID ECHO DAILY WT F/U CHEST X-RAYS MONITOR LYTES,RENAL FUNCTION,H+H DR BABB Problem List - Problems (1) Acute on chronic systolic (congestive) heart failure Code(s): I50.23 - ACUTE ON CHRONIC SYSTOLIC (CONGESTIVE) HEART FAILURE (2) Anemia Code(s): D64.9 - ANEMIA, UNSPECIFIED (3) Cellulitis Code(s): L03.90 - CELLULITIS, UNSPECIFIED (4) Diabetic ulcer of toe associated with diabetes mellitus due to underlying condition Code(s): E08.621 - DIABETES MELLITUS DUE TO UNDERLYING CONDITION W FOOT ULCER; L97.509 - NON-PRESSURE CHRONIC ULCER OTH PRT UNSP FOOT W UNSP SEVERITY Qualifiers: Laterality: left Non-pressure ulcer stage: unspecified non-pressure ulcer stage Qualified Code(s): E08.621 - Diabetes mellitus due to underlying condition with foot ulcer; L97.529 - Non-pressure chronic ulcer of other part of left foot with unspecified severity (5) PAD (peripheral artery disease) Code(s): I73.9 - PERIPHERAL VASCULAR DISEASE, UNSPECIFIED (6) S/P CABG (coronary artery bypass graft) Code(s): Z95.1 - PRESENCE OF AORTOCORONARY BYPASS GRAFT (7) COPD (chronic obstructive pulmonary disease) Code(s): J44.9 - CHRONIC OBSTRUCTIVE PULMONARY DISEASE, UNSPECIFIED (8) Shortness of breath Code(s): R06.02 - SHORTNESS OF BREATH (9) CAD (coronary artery disease) Code(s): I25.10 - ATHSCL HEART DISEASE OF [place] CORONARY ARTERY W/O ANG PCTRS Qualifiers: Coronary Disease-Associated Artery/Lesion type: [place] artery [place] vs. transplanted heart: [place] heart Associated angina: with unstable angina Qualified Code(s): I25.110 - Atherosclerotic heart disease of [place] coronary artery with unstable angina pectoris (10) CKD (chronic kidney disease) stage 3, GFR 30-59 ml/min Code(s): N18.3 - CHRONIC KIDNEY DISEASE, STAGE 3 (MODERATE) (11) Diabetic neuropathy Code(s): E11.40 - TYPE 2 DIABETES MELLITUS WITH DIABETIC NEUROPATHY, UNSP (12) Hypothyroidism Code(s): E03.9 - HYPOTHYROIDISM, UNSPECIFIED Qualifiers: Hypothyroidism type: unspecified Qualified Code(s): E03.9 - Hypothyroidism , unspecified (13) Cbnik-qe-mpgyozb kidney injury Code(s): N17.9 - ACUTE KIDNEY FAILURE, UNSPECIFIED; N18.9 - CHRONIC KIDNEY DISEASE, UNSPECIFIED Qualifiers: Chronic kidney disease stage: stage 3 (moderate)
--- NOTE | 2019-04-08 15:19 | CONS ---
PULMONARY CONSULTATION DATE OF CONSULTATION: 04/08/2019 REFERRING PHYSICIAN: Cristiana Apodaca NP HISTORY OF PRESENT ILLNESS: The patient is an 83-year-old female with an extensive past medical history which includes congestive heart failure with [id number] LV dysfunction, pulmonary hypertension, hypertension, type 2 diabetes mellitus, GERD, neuropathy, chronic diffuse pain, hypothyroidism, history of chronic left great toe osteomyelitis, ASHD status post non-STEMI, status post CABG, admitted to [facility] on April 06 secondary to left 4th toe redness and left 4th toe ulcer. In the ER, the patient was noted to have chills. She had some drainage from the left toe that was cultured. She was evaluated by Infectious Disease and placed on broad-spectrum antibiotics as well as Vascular Surgery consultation. Patient's hospitalization was significant for earlier today she was noted to have increasing shortness of breath. She was also noted to have increasing congestion. She had a chest x-ray performed which revealed increased pulmonary vascular congestion. Patient is a nonsmoker. There is no apparent history of COPD or asthma in the past. Patient was administered supplemental O2 and started on Lasix with some clinical improvement. SOCIAL HISTORY: Born in [facility] and moved to the [facility] about 20 years ago. No occupational exposures. Nonsmoker. PAST MEDICAL HISTORY: Again includes chronic systolic CHF with [id number] LV dysfunction, ASHD, status post non-STEMI, status post CABG, status post stents, diabetes, hypertension, peripheral vascular disease, left great toe osteomyelitis, pulmonary hypertension, hypothyroidism, GERD, neuropathy, acute on chronic kidney disease, and anemia. REVIEW OF SYSTEMS: Positive shortness of breath. Positive cough, productive of clear sputum. No chest pain. No palpitations. No fever. Positive chills. No hemoptysis. No abdominal pain. CURRENT MEDICATIONS: Include Tylenol, Prinivil, Zosyn, heparin subcutaneous, Neurontin, Coreg, Ranexa, Zetia, Lipitor, NovoLog, Levemir, Lasix, aspirin, Plavix, Protonix, and Synthroid. PHYSICAL EXAMINATION: General: The patient is an elderly female, awake, alert, in no acute distress. Vital Signs: She is currently afebrile, blood pressure is 128/53, respiratory rate is 18, O2 saturation is 95% on room air. HEENT: Exam is normocephalic, atraumatic. Neck: Supple. Heart: Irregular S1 and S2. Chest: Bilateral crackles one-third up. Abdomen: Soft. Bowel sounds are positive. Extremities: No cyanosis or edema. IMAGING: Chest x-ray reveals no infiltrates, no effusions, and mildly increased pulmonary vascular congestion. LABORATORIES: WBC is 11.5, hemoglobin 9.5, hematocrit 28.6 with a platelet count of 229,000. INR is 1.11. BUN 29, creatinine 1.4. Hemoglobin A1c is 9.6. IMPRESSION: 1. Dyspnea, secondary to acute on chronic systolic congestive heart failure. 2. Atherosclerotic heart disease. Status post myocardial infarction. Status post coronary artery bypass graft, stents. 3. Insulin-dependent diabetes mellitus. 4. Hypertension. 5. Peripheral vascular disease. 6. Left great toe osteomyelitis. 7. Pulmonary hypertension. 8. Hypothyroid. 9. Gastroesophageal reflux disease. 10. Neuropathy. 11. Acute on chronic kidney disease. 12. Anemia. PLAN: Lasix. Supplemental O2. Inhaled bronchodilators. Antibiotics, as per Infectious Disease. Obtain echo. Daily weights. Follow up chest x-rays. Monitor electrolytes, renal function, hemoglobin and hematocrit. MARYANN BABB M.D. TITUS/[id number]
--- NOTE | 2019-04-08 16:34 | PN ---
Physical Exam: SUBJECTIVE: Patient seen and examined at the bedside. having dyspnea on minimal exertion. OBJECTIVE: Patient is an 83 year old female with a significant past medical history of hypertension, diabetes 2, hld, CHF, GERD, neuropathy, chronic diffuse pain, hypothyroidism, chronic L great toe osteomyelitis and NSTEMI. Patient presents from her doctors office for left 4th toe redness with left 4th toe ulcer and redness from this toe that extends up to her anterior left foot. She had a hospitalization 1 year ago for prior gangrene/infection to 1st toe on left foot. No recent injury or falls, no trauma of this foot. foot xray is negative for acute fracture. Today, she had some shortness of breath with minimal exertion. chest xray shows congestive changes. no chest pain. She has a long cardiac history and had some crackles auscultated on her left lung field. she was placed on 2 liters of nasal cannula and her duonebs were scheduled to be given every 4- 6hours. lasix 40mg x 1 dose was given for congestion. echo ordered. cardiolology/pulmonary consulted. Vital Signs Period Temp Pulse Resp BP Sys/Ibarra Pulse Ox Last 24 Hr 99.1 F-99.4 F 56-68 18-20 104-128/53-71 GENERAL: Awake, alert, and fully oriented HEAD: Normal with no signs of trauma. EYES: Pupils equal, round and reactive to light, extraocular movements intact, sclera anicteric, conjunctiva clear. No lid lag. EARS, NOSE, THROAT: Ears normal, nares patent, oropharynx clear without exudates. Moist mucous membranes. NECK: Normal range of motion, supple without lymphadenopathy, JVD, or masses. LUNGS: accessory muscle use, left lung congestion, given lasix 40 and 2 liters placed. HEART: Regular rate and rhythm ABDOMEN: Soft, nontender, obese abdomen MUSCULOSKELETAL: Normal range of motion at all joints. No bony deformities or tenderness. No CVA tenderness. UPPER EXTREMITIES: 2+ pulses, warm, well-perfused. No cyanosis. No clubbing. No peripheral edema. LOWER EXTREMITIES: left foot left foot appears erythematous from 4th toe to the anterior of foot. left great toe with small ulcer that is drainage clear fluid. cultured in the Ed. 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. Normal gait. Laboratory Results - last 24 hr 04/07/19 04/07/19 04/08/19 16:25 21:23 05:23 WBC RBC Hgb Hct MCV MCH MCHC RDW Plt Count MPV Absolute Neuts (auto) Neutrophils % Lymphocytes % Monocytes % Eosinophils % Basophils % Nucleated RBC % ESR Sodium Potassium Chloride Carbon Dioxide Anion Gap BUN Creatinine Est GFR (CKD-EPI)AfAm Est GFR (CKD-EPI)NonAf POC Glucometer 219 273 189 Random Glucose Hemoglobin A1c % Calcium Magnesium Total Bilirubin AST ALT Alkaline Phosphatase Troponin I Total Protein Albumin 04/08/19 04/08/19 04/08/19 07:50 07:50 07:50 WBC 11.5 H RBC 3.14 L Hgb 9.5 L Hct 28.6 L MCV 91.1 MCH 30.3 MCHC 33.3 RDW 13.8 Plt Count 229 MPV 8.7 Absolute Neuts (auto) 7.4 Neutrophils % 64.0 Lymphocytes % 24.0 Monocytes % 9.1 Eosinophils % 2.3 D Basophils % 0.6 Nucleated RBC % 0 ESR 103 H Sodium 133 L Potassium 4.8 Chloride 100 Carbon Dioxide 26 Anion Gap 7 L BUN 29.4 H Creatinine 1.4 H Est GFR (CKD-EPI)AfAm 40.17 Est GFR (CKD-EPI)NonAf 34.66 POC Glucometer Random Glucose 171 H Hemoglobin A1c % 9.6 H Calcium 8.6 Magnesium 2.4 Total Bilirubin 0.6 AST 24 ALT 23 Alkaline Phosphatase 106 Troponin I 0.05 Total Protein 6.6 Albumin 2.8 L 04/08/19 11:53 WBC RBC Hgb Hct MCV MCH MCHC RDW Plt Count MPV Absolute Neuts (auto) Neutrophils % Lymphocytes % Monocytes % Eosinophils % Basophils % Nucleated RBC % ESR Sodium Potassium Chloride Carbon Dioxide Anion Gap BUN Creatinine Est GFR (CKD-EPI)AfAm Est GFR (CKD-EPI)NonAf POC Glucometer 234 Random Glucose Hemoglobin A1c % Calcium Magnesium Total Bilirubin AST ALT Alkaline Phosphatase Troponin I Total Protein Albumin Active Medications Generic Name Dose Route Start Last Admin Trade Name Freq PRN Reason Stop Dose Admin Acetaminophen 650 mg 04/06/19 17:25 04/08/19 02:44 Tylenol - PO 650 mg Q6H PRN Administration FEVER Albuterol/Ipratropium 1 amp 04/08/19 12:00 04/08/19 15:52 Duoneb - NEB 1 amp RQID PALOMA Administration Aspirin 81 mg 04/07/19 10:00 04/08/19 10:20 Asa - PO 81 mg DAILY PALOMA Administration Atorvastatin Calcium 40 mg 04/06/19 22:00 04/07/19 22:33 Lipitor - PO 40 mg HS PALOMA Administration Carvedilol 12.5 mg 04/06/19 22:00 04/08/19 10:20 Coreg - PO 12.5 mg BID PALOMA Administration Clopidogrel Bisulfate 75 mg 04/07/19 10:00 04/08/19 10:21 Plavix - PO 75 mg DAILY PALOMA Administration Ezetimibe 10 mg 04/07/19 10:00 04/08/19 10:20 Zetia - PO 10 mg DAILY PALOMA Administration Furosemide 20 mg 04/07/19 10:00 04/08/19 10:20 Lasix - PO 20 mg DAILY PALOMA Administration Gabapentin 600 mg 04/06/19 22:00 04/08/19 14:36 Neurontin - PO 600 mg TID PALOMA Administration Heparin Sodium (Porcine) 5,000 unit 04/06/19 22:00 04/08/19 10:21 Heparin - SQ 5,000 unit BID PALOMA Administration Piperacillin Sod/Tazobactam 50 mls @ 100 mls/hr 04/07/19 02:00 04/08/19 10:20 Sod 3.375 gm/ Dextrose IVPB 100 mls/hr Q8H-IV PALOMA Administration Protocol Insulin Aspart 1 vial 04/07/19 17:08 04/08/19 12:57 Novolog Vial Sliding Scale - SQ 6 units ACHS PALOMA Administration Protocol Insulin Detemir 20 units 04/08/19 08:12 Levemir Vial SQ HS [facility] Levothyroxine Sodium 88 mcg 04/07/19 07:00 04/08/19 06:08 Synthroid - PO 88 mcg AM PALOMA Administration Lisinopril 2.5 mg 04/09/19 10:00 Prinivil PO DAILY PALOMA Pantoprazole Sodium 40 mg 04/07/19 10:00 04/08/19 10:20 Protonix - PO 40 mg DAILY PALOMA Administration Ranolazine 500 mg 04/06/19 22:00 04/08/19 10:21 Ranexa - PO 500 mg BID PALOMA Administration ASSESSMENT/PLAN: Problem List - Problems (1) Shortness of breath Assessment/Plan: chest xray shows congestive changes. no chest pain. She has a long cardiac history and had some crackles auscultated on her left lung field. she was placed on 2 liters of nasal cannula and her duonebs were scheduled to be given every 4-6hours. lasix 40mg x 1 dose was given for congestion. echo ordered. cardiolology/pulmonary consulted and following. Code(s): R06.02 - SHORTNESS OF BREATH (2) Cellulitis Assessment/Plan: left foot cellulitis, left 4th toe cellulitis/edema with erythma extending to left anterior foot. on zosyn per id. blood and urine cultures ngtd, wound culture staph coag. positive. lactic acid normal ID and podiatry consulted mri ordered to rule out osteo vascular following Code(s): L03.90 - CELLULITIS, UNSPECIFIED (3) S/P CABG (coronary artery bypass graft) Assessment/Plan: continue home meds no chest pain Code(s): Z95.1 - PRESENCE OF AORTOCORONARY BYPASS GRAFT (4) Type 2 diabetes mellitus Assessment/Plan: novolg and levemir diabetic diet a1c 9.6 levemir increased Code(s): E11.9 - TYPE 2 DIABETES MELLITUS WITHOUT COMPLICATIONS Qualifiers: Diabetes mellitus termite control representative insulin use: unspecified termite control representative insulin use status Diabetes mellitus complication status: with neurologic complications Diabetes mellitus complication detail: with polyneuropathy Qualified Code(s): E11.42 - Type 2 diabetes mellitus with diabetic polyneuropathy (5) COPD (chronic obstructive pulmonary disease) Assessment/Plan: duonebs prn Code(s): J44.9 - CHRONIC OBSTRUCTIVE PULMONARY DISEASE, UNSPECIFIED (6) CAD (coronary artery disease) Assessment/Plan: continue home meds Code(s): I25.10 - ATHSCL HEART DISEASE OF [place] CORONARY ARTERY W/O ANG PCTRS Qualifiers: Coronary Disease-Associated Artery/Lesion type: [place] artery [place] vs. transplanted heart: [place] heart Associated angina: with unstable angina Qualified Code(s): I25.110 - Atherosclerotic heart disease of [place] coronary artery with unstable angina pectoris (7) CHF (congestive heart failure) Assessment/Plan: monitor intake and output. on lasix. Code(s): I50.9 - HEART FAILURE, UNSPECIFIED Qualifiers: Heart failure type: unspecified Heart failure chronicity: acute on chronic Qualified Code(s): I50.9 - Heart failure, unspecified (8) CKD (chronic kidney disease) stage 3, GFR 30-59 ml/min Assessment/Plan: daily monitoring of kidney function appears to be at her baseline if worsening ckd, will consult renal renal dose meds Code(s): N18.3 - CHRONIC KIDNEY DISEASE, STAGE 3 (MODERATE) (9) Prophylactic measure Assessment/Plan: fen toleraring po stop ivf monitor electrolyes full code Code(s): Z29.9 - ENCOUNTER FOR PROPHYLACTIC MEASURES, UNSPECIFIED Visit type - Emergency Visit Emergency Visit: Yes ED Registration Date: 04/06/19 Care time: The patient presented to the Emergency Department on the above date and was hospitalized for further evaluation of their emergent condition. - New Patient This patient is new to me today: No - Critical Care Critical Care patient: No - Discharge Referral Referred to [facility] Med [facility] No
[2019-04-08 17:14] LABS: N-TERMINAL BNP 12428.8 pg/ml (5-450)
[2019-04-08] MEDS: ATORVASTATIN CA 40 MG TABLET (FP) PO SCH (21:51)
[2019-04-08] MEDS: INSULIN (LEVEMIR) 100 UNITS/ML UNITS SQ SCH (21:51)
[2019-04-09] MEDS ORDERED: PIPERACILLIN/TAZOBACTAM 3.375 GM VIAL IVPB ONE ×3 (00:44→16:24)
[2019-04-09] MEDS ORDERED: DEXTROSE 5%-WATER - 50 ML IVPB ONE ×3 (00:45→16:24)
[2019-04-09] MEDS: PIPERACILLIN/TAZOB 3.375 GM 3.375 GM in DEXTROSE 5%-WATER - 50 ML IVPB SCH ×3 (01:25→17:11)
[2019-04-09] MEDS: GABAPENTIN 300 MG CAPSULE PO SCH ×3 (06:08→21:19)
[2019-04-09] MEDS: LEVOTHYROXINE NA 88 MCG TABLET (FP) PO SCH (06:08)
[2019-04-09] MEDS: INSULIN SLIDING SCALE (NOVOLOG) 1 VIAL SQ SCH ×4 (07:02→21:21)
[2019-04-09] MEDS: ALBUTEROL SO4 2.5/IPRATROPIUM 0.5 INH SOL 3 ML VIAL.NEB. NEB SCH ×4 (07:20→19:56)
[2019-04-09 07:57] LABS: BASO % 0.5 % (0-2.0); EOS % 0.8 % (0-4.5); HEMATOCRIT 28.3 % (32.4-45.2); HEMOGLOBIN 9.4 GM/dL (10.7-15.3); LYMPH % 21.1 % (8-40); MCH 30.2 pg (25.7-33.7); MCHC 33.3 g/dl (32.0-36.0); MEAN CELL VOLUME 90.6 fl (80-96); MEAN PLT VOLUME 8.5 fl (7.5-11.1); NEUT % 66.6 % (42.8-82.8); PLATELET COUNT 228 K/MM3 (134-434); RBC 3.12 M/mm3 (3.60-5.2); RDW 13.7 % (11.6-15.6)
[2019-04-09 08:11] LABS: ALBUMIN 2.9 g/dl (3.4-5.0); BILIRUBIN,TOTAL 0.8 mg/dL (0.2-1); BLOOD UREA NITROGEN 28.5 mg/dL (7-18); CALCIUM 8.4 mg/dL (8.5-10.1); CREATININE 1.6 mg/dL (0.55-1.3); POTASSIUM 4.2 mmol/L (3.5-5.1); TOT PROT 6.8 g/dl (6.4-8.2)
[2019-04-09] MEDS: CLOPIDOGREL BISULFATE 75 MG TABLET (FP) PO SCH (11:08)
[2019-04-09] MEDS: EZETIMIBE 10 MG TABLET (FP) PO SCH (11:09)
[2019-04-09] MEDS: ASPIRIN 81 MG CHEWABLE TABLETS PO SCH (11:09)
[2019-04-09] MEDS: RANOLAZINE E.R. 500 MG TABLET (FP) PO SCH ×2 (11:11→21:21)
[2019-04-09] MEDS: PANTOPRAZOLE 40 MG TABLET PO SCH (11:12)
[2019-04-09] MEDS: HEPARIN NA (PORCINE) 5,000 UNITS/ML 1ML VIAL SQ SCH ×2 (11:12→21:20)
--- NOTE | 2019-04-09 12:27 | PN ---
Progress Note, Physician Chief Complaint: FUV left foot History of Present Illness: Daughter states wound has been present for 5 days. After itching between her toes. No tx till came to hospital. - Current Medication List Current Medications: Active Medications Acetaminophen (Tylenol -) 650 mg PO Q6H PRN PRN Reason: FEVER Last Admin: 04/08/19 02:44 Dose: 650 mg Albuterol/Ipratropium (Duoneb -) 1 amp NEB RQID [facility] Last Admin: 04/09/19 11:24 Dose: Not Given Aspirin (Asa -) 81 mg PO DAILY [facility] Last Admin: 04/09/19 11:09 Dose: 81 mg Atorvastatin Calcium (Lipitor -) 40 mg PO HS [facility] Last Admin: 04/08/19 21:51 Dose: 40 mg Carvedilol (Coreg -) 12.5 mg PO BID [facility] Last Admin: 04/08/19 21:51 Dose: 12.5 mg Clopidogrel Bisulfate (Plavix -) 75 mg PO DAILY [facility] Last Admin: 04/09/19 11:08 Dose: 75 mg Ezetimibe (Zetia -) 10 mg PO DAILY [facility] Last Admin: 04/09/19 11:09 Dose: 10 mg Furosemide (Lasix -) 20 mg PO DAILY [facility] Last Admin: 04/08/19 10:20 Dose: 20 mg Gabapentin (Neurontin -) 600 mg PO TID [facility] Last Admin: 04/09/19 06:08 Dose: 600 mg Heparin Sodium (Porcine) (Heparin -) 5,000 unit SQ BID [facility] Last Admin: 04/09/19 11:12 Dose: 5,000 unit Piperacillin Sod/Tazobactam (Sod 3.375 gm/ Dextrose) 50 mls @ 100 mls/hr IVPB Q8H-IV [facility]; Protocol Last Admin: 04/09/19 11:12 Dose: 100 mls/hr Insulin Aspart (Novolog Vial Sliding Scale -) 1 vial SQ ACHS [facility]; Protocol Last Admin: 04/09/19 11:51 Dose: 4 units Insulin Detemir (Levemir Vial) 20 units SQ HS [facility] Last Admin: 04/08/19 21:51 Dose: 20 units Levothyroxine Sodium (Synthroid -) 88 mcg PO AM [facility] Last Admin: 04/09/19 06:08 Dose: 88 mcg Lisinopril (Prinivil) 2.5 mg PO DAILY [facility] Pantoprazole Sodium (Protonix -) 40 mg PO DAILY [facility] Last Admin: 04/09/19 11:12 Dose: 40 mg Ranolazine (Ranexa -) 500 mg PO BID [facility] Last Admin: 04/09/19 11:11 Dose: 500 mg - Objective Vital Signs: Vital Signs Temperature 98.6 F 04/08/19 22:00 Pulse Rate 68 04/08/19 22:00 Respiratory Rate 18 04/08/19 22:00 Blood Pressure 121/73 04/08/19 22:00 O2 Sat by Pulse Oximetry (%) 97 04/08/19 21:00 Extremities: Yes: Other (uniproved cellulitis, +dusky 4th toe, +edematous forefoot left) Labs: CBC, BMP 04/09/19 06:30 04/09/19 06:30 INR, PTT INR 1.11 (0.83-1.09) H 04/06/19 13:20 - ....Imaging MRI: Report Reviewed (+om 4th toe left,) Assessment/Plan cellulitis 4th toe left wound 4th toe left om pvd Awaiting Vascular recommendations. Will follow. Betadine swab in between toes left foot daily. MRI reviewed. Discussed with daughter and son the possible interventions including debridement of foot if toe continues to demarcate.
--- NOTE | 2019-04-09 12:27 | PN ---
Progress Note, Physician History of Present Illness: pulmonary alert,sitting up in bed,less dyspneic - Current Medication List Current Medications: Active Medications Acetaminophen (Tylenol -) 650 mg PO Q6H PRN PRN Reason: FEVER Last Admin: 04/08/19 02:44 Dose: 650 mg Albuterol/Ipratropium (Duoneb -) 1 amp NEB RQID [facility] Last Admin: 04/09/19 11:24 Dose: Not Given Aspirin (Asa -) 81 mg PO DAILY [facility] Last Admin: 04/09/19 11:09 Dose: 81 mg Atorvastatin Calcium (Lipitor -) 40 mg PO HS [facility] Last Admin: 04/08/19 21:51 Dose: 40 mg Carvedilol (Coreg -) 12.5 mg PO BID [facility] Last Admin: 04/08/19 21:51 Dose: 12.5 mg Clopidogrel Bisulfate (Plavix -) 75 mg PO DAILY [facility] Last Admin: 04/09/19 11:08 Dose: 75 mg Ezetimibe (Zetia -) 10 mg PO DAILY [facility] Last Admin: 04/09/19 11:09 Dose: 10 mg Furosemide (Lasix -) 20 mg PO DAILY [facility] Last Admin: 04/08/19 10:20 Dose: 20 mg Gabapentin (Neurontin -) 600 mg PO TID [facility] Last Admin: 04/09/19 06:08 Dose: 600 mg Heparin Sodium (Porcine) (Heparin -) 5,000 unit SQ BID [facility] Last Admin: 04/09/19 11:12 Dose: 5,000 unit Piperacillin Sod/Tazobactam (Sod 3.375 gm/ Dextrose) 50 mls @ 100 mls/hr IVPB Q8H-IV [facility]; Protocol Last Admin: 04/09/19 11:12 Dose: 100 mls/hr Insulin Aspart (Novolog Vial Sliding Scale -) 1 vial SQ ACHS [facility]; Protocol Last Admin: 04/09/19 11:51 Dose: 4 units Insulin Detemir (Levemir Vial) 20 units SQ HS [facility] Last Admin: 04/08/19 21:51 Dose: 20 units Levothyroxine Sodium (Synthroid -) 88 mcg PO AM [facility] Last Admin: 04/09/19 06:08 Dose: 88 mcg Lisinopril (Prinivil) 2.5 mg PO DAILY [facility] Pantoprazole Sodium (Protonix -) 40 mg PO DAILY [facility] Last Admin: 04/09/19 11:12 Dose: 40 mg Ranolazine (Ranexa -) 500 mg PO BID [facility] Last Admin: 04/09/19 11:11 Dose: 500 mg - Objective Vital Signs: Vital Signs Temperature 98.6 F 04/08/19 22:00 Pulse Rate 68 04/08/19 22:00 Respiratory Rate 18 04/08/19 22:00 Blood Pressure 121/73 04/08/19 22:00 O2 Sat by Pulse Oximetry (%) 97 04/08/19 21:00 Constitutional: Yes: Well Nourished, Calm Eyes: Yes: WNL HENT: Yes: WNL Neck: Yes: WNL Cardiovascular: Yes: Regular Rate and Rhythm, S1, S2 Respiratory: Yes: Rhonchi (few scatterd rhonchi) Gastrointestinal: Yes: Normal Bowel Sounds, Soft Extremities: Yes: WNL Edema: No Labs: CBC, BMP 04/09/19 06:30 04/09/19 06:30 INR, PTT INR 1.11 (0.83-1.09) H 04/06/19 13:20 Problem List - Problems (1) Acute on chronic systolic (congestive) heart failure Code(s): I50.23 - ACUTE ON CHRONIC SYSTOLIC (CONGESTIVE) HEART FAILURE (2) Anemia Code(s): D64.9 - ANEMIA, UNSPECIFIED (3) Cellulitis Code(s): L03.90 - CELLULITIS, UNSPECIFIED (4) Diabetic ulcer of toe associated with diabetes mellitus due to underlying condition Code(s): E08.621 - DIABETES MELLITUS DUE TO UNDERLYING CONDITION W FOOT ULCER; L97.509 - NON-PRESSURE CHRONIC ULCER OTH PRT UNSP FOOT W UNSP SEVERITY Qualifiers: Laterality: left Non-pressure ulcer stage: unspecified non-pressure ulcer stage Qualified Code(s): E08.621 - Diabetes mellitus due to underlying condition with foot ulcer; L97.529 - Non-pressure chronic ulcer of other part of left foot with unspecified severity (5) PAD (peripheral artery disease) Code(s): I73.9 - PERIPHERAL VASCULAR DISEASE, UNSPECIFIED (6) S/P CABG (coronary artery bypass graft) Code(s): Z95.1 - PRESENCE OF AORTOCORONARY BYPASS GRAFT (7) COPD (chronic obstructive pulmonary disease) Code(s): J44.9 - CHRONIC OBSTRUCTIVE PULMONARY DISEASE, UNSPECIFIED (8) Shortness of breath Code(s): R06.02 - SHORTNESS OF BREATH (9) CAD (coronary artery disease) Code(s): I25.10 - ATHSCL HEART DISEASE OF [place] CORONARY ARTERY W/O ANG PCTRS Qualifiers: Coronary Disease-Associated Artery/Lesion type: [place] artery [place] vs. transplanted heart: [place] heart Associated angina: with unstable angina Qualified Code(s): I25.110 - Atherosclerotic heart disease of [place] coronary artery with unstable angina pectoris (10) CKD (chronic kidney disease) stage 3, GFR 30-59 ml/min Code(s): N18.3 - CHRONIC KIDNEY DISEASE, STAGE 3 (MODERATE) (11) Diabetic neuropathy Code(s): E11.40 - TYPE 2 DIABETES MELLITUS WITH DIABETIC NEUROPATHY, UNSP (12) Hypothyroidism Code(s): E03.9 - HYPOTHYROIDISM, UNSPECIFIED Qualifiers: Hypothyroidism type: unspecified Qualified Code(s): E03.9 - Hypothyroidism , unspecified (13) [id number] kidney injury Code(s): N17.9 - ACUTE KIDNEY FAILURE, UNSPECIFIED; N18.9 - CHRONIC KIDNEY DISEASE, UNSPECIFIED Qualifiers: Chronic kidney disease stage: stage 3 (moderate) Assessment/Plan MP DYSPNEA ACUTE ON CHRONIC SYSTOLIC CHF ASHD S/P NSTEMI,S/P CABG,STENTS DM HTN PVD LEFT GREAT TOE OSTEOMYELITIS PULMONARY HTN HYPOTHYROID GERD NEUROPATHY ACUTE ON CHRONIC KIDNEY DISEASE ANEMIA PLAN LASIX O2 INHALED BRONCHODILATORS ABX PER ID ECHO DAILY WT F/U CHEST X-RAYS MONITOR LYTES,RENAL FUNCTION,H+H DR BABB Problem List - Problems (1) Acute on chronic systolic (congestive) heart failure Code(s): I50.23 - ACUTE ON CHRONIC SYSTOLIC (CONGESTIVE) HEART FAILURE (2) Anemia Code(s): D64.9 - ANEMIA, UNSPECIFIED (3) Cellulitis Code(s): L03.90 - CELLULITIS, UNSPECIFIED (4) Diabetic ulcer of toe associated with diabetes mellitus due to underlying condition Code(s): E08.621 - DIABETES MELLITUS DUE TO UNDERLYING CONDITION W FOOT ULCER; L97.509 - NON-PRESSURE CHRONIC ULCER OTH PRT UNSP FOOT W UNSP SEVERITY Qualifiers: Laterality: left Non-pressure ulcer stage: unspecified non-pressure ulcer stage Qualified Code(s): E08.621 - Diabetes mellitus due to underlying condition with foot ulcer; L97.529 - Non-pressure chronic ulcer of other part of left foot with unspecified severity (5) PAD (peripheral artery disease) Code(s): I73.9 - PERIPHERAL VASCULAR DISEASE, UNSPECIFIED (6) S/P CABG (coronary artery bypass graft) Code(s): Z95.1 - PRESENCE OF AORTOCORONARY BYPASS GRAFT (7) COPD (chronic obstructive pulmonary disease) Code(s): J44.9 - CHRONIC OBSTRUCTIVE PULMONARY DISEASE, UNSPECIFIED (8) Shortness of breath Code(s): R06.02 - SHORTNESS OF BREATH (9) CAD (coronary artery disease) Code(s): I25.10 - ATHSCL HEART DISEASE OF [place] CORONARY ARTERY W/O ANG PCTRS Qualifiers: Coronary Disease-Associated Artery/Lesion type: [place] artery [place] vs. transplanted heart: [place] heart Associated angina: with unstable angina Qualified Code(s): I25.110 - Atherosclerotic heart disease of [place] coronary artery with unstable angina pectoris (10) CKD (chronic kidney disease) stage 3, GFR 30-59 ml/min Code(s): N18.3 - CHRONIC KIDNEY DISEASE, STAGE 3 (MODERATE) (11) Diabetic neuropathy Code(s): E11.40 - TYPE 2 DIABETES MELLITUS WITH DIABETIC NEUROPATHY, UNSP (12) Hypothyroidism Code(s): E03.9 - HYPOTHYROIDISM, UNSPECIFIED Qualifiers: Hypothyroidism type: unspecified Qualified Code(s): E03.9 - Hypothyroidism , unspecified (13) [id number] kidney injury Code(s): N17.9 - ACUTE KIDNEY FAILURE, UNSPECIFIED; N18.9 - CHRONIC KIDNEY DISEASE, UNSPECIFIED Qualifiers: Chronic kidney disease stage: stage 3 (moderate)
--- NOTE | 2019-04-09 12:51 | PN ---
Physical Exam: SUBJECTIVE: Patient seen and examined at the bedside. daughter reports that patient is having difficulty with swallowing even when she attempts to eat at home. OBJECTIVE: Patient is an 83 year old female with a significant past medical history of hypertension, diabetes 2, hld, CHF, GERD, neuropathy, chronic diffuse pain, hypothyroidism, chronic L great toe osteomyelitis, S/P CABG (coronary artery bypass graft)and NSTEMI. Patient presents from her doctors office for left 4th toe redness with left 4th toe ulcer and redness from this toe that extends up to her anterior left foot. She had a hospitalization 1 year ago for prior gangrene/infection to 1st toe on left foot. No recent injury or falls, no trauma of this foot. foot xray is negative for acute fracture. difficulty swallowing at times, happens at home also. will ask speech and swallow to evaluate. imaging: MRI: left foot osteo vs stress fracture. left foot xray: negative for fracture Vital Signs Period Temp Pulse Resp BP Sys/Ibarra Pulse Ox Last 24 Hr 98.2 F-98.6 F 59-68 18-21 121-149/73-83 97 GENERAL: Awake, alert, and fully oriented HEAD: Normal with no signs of trauma. EYES: Pupils equal, round and reactive to light, extraocular movements intact, sclera anicteric, conjunctiva clear. No lid lag. EARS, NOSE, THROAT: Ears normal, nares patent, oropharynx clear without exudates. Moist mucous membranes. NECK: Normal range of motion, supple without lymphadenopathy, JVD, or masses. LUNGS: accessory muscle use, left lung congestion, given lasix 40 and 2 liters placed. HEART: Regular rate and rhythm ABDOMEN: Soft, nontender, obese abdomen MUSCULOSKELETAL: Normal range of motion at all joints. No bony deformities or tenderness. No CVA tenderness. UPPER EXTREMITIES: 2+ pulses, warm, well-perfused. No cyanosis. No clubbing. No peripheral edema. LOWER EXTREMITIES: left foot left foot appears erythematous from 4th toe to the anterior of foot. left great toe with small ulcer that is drainage clear fluid. cultured in the Ed. 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. Normal gait. Laboratory Results - last 24 hr 04/08/19 04/08/19 04/08/19 07:50 15:18 15:18 WBC RBC Hgb Hct MCV MCH MCHC RDW Plt Count MPV Absolute Neuts (auto) Neutrophils % Lymphocytes % Monocytes % Eosinophils % Basophils % Nucleated RBC % Sodium Potassium Chloride Carbon Dioxide Anion Gap BUN Creatinine Est GFR (CKD-EPI)AfAm Est GFR (CKD-EPI)NonAf POC Glucometer Random Glucose Calcium Magnesium Total Bilirubin AST ALT Alkaline Phosphatase Troponin I 0.05 B-Natriuretic Peptide 34856.8 H Total Protein Albumin Triglycerides 104 Cholesterol 99 Total LDL Cholesterol 28 HDL Cholesterol 57 TSH 4.51 H Free T4 0.86 04/08/19 04/08/19 04/09/19 16:34 21:53 06:26 WBC RBC Hgb Hct MCV MCH MCHC RDW Plt Count MPV Absolute Neuts (auto) Neutrophils % Lymphocytes % Monocytes % Eosinophils % Basophils % Nucleated RBC % Sodium Potassium Chloride Carbon Dioxide Anion Gap BUN Creatinine Est GFR (CKD-EPI)AfAm Est GFR (CKD-EPI)NonAf POC Glucometer 365 72 76 Random Glucose Calcium Magnesium Total Bilirubin AST ALT Alkaline Phosphatase Troponin I B-Natriuretic Peptide Total Protein Albumin Triglycerides Cholesterol Total LDL Cholesterol HDL Cholesterol TSH Free T4 04/09/19 04/09/19 04/09/19 06:30 06:30 06:30 WBC 12.0 H RBC 3.12 L Hgb 9.4 L Hct 28.3 L MCV 90.6 MCH 30.2 MCHC 33.3 RDW 13.7 Plt Count 228 MPV 8.5 Absolute Neuts (auto) 8.0 Neutrophils % 66.6 Lymphocytes % 21.1 Monocytes % 11.0 H Eosinophils % 0.8 Basophils % 0.5 Nucleated RBC % 0 Sodium 135 L Potassium 4.2 Chloride 99 Carbon Dioxide 29 Anion Gap 8 BUN 28.5 H Creatinine 1.6 H Est GFR (CKD-EPI)AfAm 34.18 Est GFR (CKD-EPI)NonAf 29.49 POC Glucometer Random Glucose 69 L Calcium 8.4 L Magnesium 2.2 Total Bilirubin 0.8 AST 18 ALT 23 Alkaline Phosphatase 99 Troponin I B-Natriuretic Peptide Total Protein 6.8 Albumin 2.9 L Triglycerides Cholesterol Total LDL Cholesterol HDL Cholesterol TSH Free T4 04/09/19 11:17 WBC RBC Hgb Hct MCV MCH MCHC RDW Plt Count MPV Absolute Neuts (auto) Neutrophils % Lymphocytes % Monocytes % Eosinophils % Basophils % Nucleated RBC % Sodium Potassium Chloride Carbon Dioxide Anion Gap BUN Creatinine Est GFR (CKD-EPI)AfAm Est GFR (CKD-EPI)NonAf POC Glucometer 191 Random Glucose Calcium Magnesium Total Bilirubin AST ALT Alkaline Phosphatase Troponin I B-Natriuretic Peptide Total Protein Albumin Triglycerides Cholesterol Total LDL Cholesterol HDL Cholesterol TSH Free T4 Active Medications Generic Name Dose Route Start Last Admin Trade Name Charleen PRN Reason Stop Dose Admin Acetaminophen 650 mg 04/06/19 17:25 04/08/19 02:44 Tylenol - PO 650 mg Q6H PRN Administration FEVER Albuterol/Ipratropium 1 amp 04/08/19 12:00 04/09/19 11:24 Duoneb - NEB Not Given RQID [facility] Aspirin 81 mg 04/07/19 10:00 04/09/19 11:09 Asa - PO 81 mg DAILY [facility] Administration Atorvastatin Calcium 40 mg 04/06/19 22:00 04/08/19 21:51 Lipitor - PO 40 mg HS [facility] Administration Carvedilol 12.5 mg 04/06/19 22:00 04/08/19 21:51 Coreg - PO 12.5 mg BID [facility] Administration Clopidogrel Bisulfate 75 mg 04/07/19 10:00 04/09/19 11:08 Plavix - PO 75 mg DAILY [facility] Administration Ezetimibe 10 mg 04/07/19 10:00 04/09/19 11:09 Zetia - PO 10 mg DAILY [facility] Administration Furosemide 20 mg 04/07/19 10:00 04/08/19 10:20 Lasix - PO 20 mg DAILY [facility] Administration Gabapentin 600 mg 04/06/19 22:00 04/09/19 06:08 Neurontin - PO 600 mg TID [facility] Administration Heparin Sodium (Porcine) 5,000 unit 04/06/19 22:00 04/09/19 11:12 Heparin - SQ 5,000 unit BID [facility] Administration Piperacillin Sod/Tazobactam 50 mls @ 100 mls/hr 04/07/19 02:00 04/09/19 11:12 Sod 3.375 gm/ Dextrose IVPB 100 mls/hr Q8H-IV [facility] Administration Protocol Insulin Aspart 1 vial 04/07/19 17:08 04/09/19 11:51 Novolog Vial Sliding Scale - SQ 4 units ACHS [facility] Administration Protocol Insulin Detemir 20 units 04/08/19 08:12 04/08/19 21:51 Levemir Vial SQ 20 units HS [facility] Administration Levothyroxine Sodium 88 mcg 04/07/19 07:00 04/09/19 06:08 Synthroid - PO 88 mcg AM [facility] Administration Lisinopril 2.5 mg 04/09/19 10:00 Prinivil PO DAILY [facility] Pantoprazole Sodium 40 mg 04/07/19 10:00 04/09/19 11:12 Protonix - PO 40 mg DAILY [facility] Administration Polyethylene Glycol 17 gm 04/09/19 12:45 Miralax (For Daily Use) - PO DAILY [facility] Ranolazine 500 mg 04/06/19 22:00 04/09/19 11:11 Ranexa - PO 500 mg BID [facility] Administration ASSESSMENT/PLAN: Problem List - Problems (1) Shortness of breath Assessment/Plan: improving, continue on 2 liters of nasal cannula. for echo tomorrow chest xray shows congestive changes. no chest pain. She has a long cardiac history and had some crackles auscultated on her left lung field. she was placed on 2 liters of nasal cannula and her duonebs were scheduled to be given every 4-6hours. cardiolology/pulmonary consulted and following. Code(s): R06.02 - SHORTNESS OF BREATH (2) Cellulitis Assessment/Plan: left foot cellulitis, left 4th toe cellulitis/edema with erythema extending to left anterior foot. on zosyn per id. blood and urine cultures ngtd, wound culture staph coag. positive. lactic acid normal ID and podiatry consulted MRI shows possible osteo vs. stress fracture vascular following Code(s): L03.90 - CELLULITIS, UNSPECIFIED (3) S/P CABG (coronary artery bypass graft) Assessment/Plan: continue home meds no chest pain Code(s): Z95.1 - PRESENCE OF AORTOCORONARY BYPASS GRAFT (4) Type 2 diabetes mellitus Assessment/Plan: novolg and levemir diabetic diet a1c 9.6 Code(s): E11.9 - TYPE 2 DIABETES MELLITUS WITHOUT COMPLICATIONS Qualifiers: Diabetes mellitus [employer] insulin use: unspecified custodial insulin use status Diabetes mellitus complication status: with neurologic complications Diabetes mellitus complication detail: with polyneuropathy Qualified Code(s): E11.42 - Type 2 diabetes mellitus with diabetic polyneuropathy (5) COPD (chronic obstructive pulmonary disease) Assessment/Plan: duonebs prn Code(s): J44.9 - CHRONIC OBSTRUCTIVE PULMONARY DISEASE, UNSPECIFIED (6) CAD (coronary artery disease) Assessment/Plan: continue home meds Code(s): I25.10 - ATHSCL HEART DISEASE OF [place] CORONARY ARTERY W/O ANG PCTRS Qualifiers: Coronary Disease-Associated Artery/Lesion type: [place] artery [place] vs. transplanted heart: [place] heart Associated angina: with unstable angina Qualified Code(s): I25.110 - Atherosclerotic heart disease of [place] coronary artery with unstable angina pectoris (7) CHF (congestive heart failure) Assessment/Plan: monitor intake and output. on lasix. Code(s): I50.9 - HEART FAILURE, UNSPECIFIED Qualifiers: Heart failure type: unspecified Heart failure chronicity: acute on chronic Qualified Code(s): I50.9 - Heart failure, unspecified (8) CKD (chronic kidney disease) stage 3, GFR 30-59 ml/min Assessment/Plan: daily monitoring of kidney function appears to be at her baseline if worsening ckd, will consult renal renal dose meds Code(s): N18.3 - CHRONIC KIDNEY DISEASE, STAGE 3 (MODERATE) (9) Prophylactic measure Assessment/Plan: fen toleraring po stop ivf monitor electrolyes full code Code(s): Z29.9 - ENCOUNTER FOR PROPHYLACTIC MEASURES, UNSPECIFIED Visit type - Emergency Visit Emergency Visit: Yes ED Registration Date: 04/06/19 Care time: The patient presented to the Emergency Department on the above date and was hospitalized for further evaluation of their emergent condition. - New Patient This patient is new to me today: No - Critical Care Critical Care patient: No - Discharge Referral Referred to [facility] No
--- NOTE | 2019-04-09 13:11 | PN ---
Progress Note, Physician History of Present Illness: no new issues results noted - Current Medication List Current Medications: Active Medications Acetaminophen (Tylenol -) 650 mg PO Q6H PRN PRN Reason: FEVER Last Admin: 04/08/19 02:44 Dose: 650 mg Albuterol/Ipratropium (Duoneb -) 1 amp NEB RQID [facility] Last Admin: 04/09/19 11:24 Dose: Not Given Aspirin (Asa -) 81 mg PO DAILY [facility] Last Admin: 04/09/19 11:09 Dose: 81 mg Atorvastatin Calcium (Lipitor -) 40 mg PO HS [facility] Last Admin: 04/08/19 21:51 Dose: 40 mg Carvedilol (Coreg -) 12.5 mg PO BID [facility] Last Admin: 04/08/19 21:51 Dose: 12.5 mg Clopidogrel Bisulfate (Plavix -) 75 mg PO DAILY [facility] Last Admin: 04/09/19 11:08 Dose: 75 mg Ezetimibe (Zetia -) 10 mg PO DAILY [facility] Last Admin: 04/09/19 11:09 Dose: 10 mg Furosemide (Lasix -) 20 mg PO DAILY [facility] Last Admin: 04/08/19 10:20 Dose: 20 mg Gabapentin (Neurontin -) 600 mg PO TID [facility] Last Admin: 04/09/19 06:08 Dose: 600 mg Heparin Sodium (Porcine) (Heparin -) 5,000 unit SQ BID [facility] Last Admin: 04/09/19 11:12 Dose: 5,000 unit Piperacillin Sod/Tazobactam (Sod 3.375 gm/ Dextrose) 50 mls @ 100 mls/hr IVPB Q8H-IV [facility]; Protocol Last Admin: 04/09/19 11:12 Dose: 100 mls/hr Insulin Aspart (Novolog Vial Sliding Scale -) 1 vial SQ ACHS [facility]; Protocol Last Admin: 04/09/19 11:51 Dose: 4 units Insulin Detemir (Levemir Vial) 20 units SQ HS [facility] Last Admin: 04/08/19 21:51 Dose: 20 units Levothyroxine Sodium (Synthroid -) 88 mcg PO AM [facility] Last Admin: 04/09/19 06:08 Dose: 88 mcg Lisinopril (Prinivil) 2.5 mg PO DAILY [facility] Pantoprazole Sodium (Protonix -) 40 mg PO DAILY [facility] Last Admin: 04/09/19 11:12 Dose: 40 mg Polyethylene Glycol (Miralax (For Daily Use) -) 17 gm PO DAILY [facility] Ranolazine (Ranexa -) 500 mg PO BID [facility] Last Admin: 04/09/19 11:11 Dose: 500 mg - Objective Vital Signs: Vital Signs Temperature 98.6 F 04/08/19 22:00 Pulse Rate 68 04/08/19 22:00 Respiratory Rate 18 04/08/19 22:00 Blood Pressure 121/73 04/08/19 22:00 O2 Sat by Pulse Oximetry (%) 97 04/08/19 21:00 Constitutional: Yes: Calm, Mild Distress Cardiovascular: Yes: S1, S2 Respiratory: Yes: Regular, CTA Bilaterally Gastrointestinal: Yes: Normal Bowel Sounds, Soft Musculoskeletal: Yes: WNL Extremities: Yes: Other Neurological: Yes: Alert, Oriented Psychiatric: Yes: Alert, Oriented Labs: CBC, BMP 04/09/19 06:30 04/09/19 06:30 INR, PTT INR 1.11 (0.83-1.09) H 04/06/19 13:20 Assessment/Plan Problem List - Problems (1) Cellulitis Code(s): L03.90 - CELLULITIS, UNSPECIFIED (2) S/P CABG (coronary artery bypass graft) Code(s): Z95.1 - PRESENCE OF AORTOCORONARY BYPASS GRAFT (3) Type 2 diabetes mellitus Code(s): E11.9 - TYPE 2 DIABETES MELLITUS WITHOUT COMPLICATIONS Qualifiers: Diabetes 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 insulin use: unspecified intermodal truck driver insulin use status Diabetes mellitus complication status: with neurologic complications Diabetes mellitus complication detail: with polyneuropathy Qualified Code(s): E11.42 - Type 2 diabetes mellitus with diabetic polyneuropathy (4) COPD (chronic obstructive pulmonary disease) Assessment/Plan: [place] prn Code(s): J44.9 - CHRONIC OBSTRUCTIVE PULMONARY DISEASE, UNSPECIFIED (5) CAD (coronary artery disease) Code(s): I25.10 - ATHSCL HEART DISEASE OF [place] CORONARY ARTERY W/O ANG PCTRS Qualifiers: Coronary Disease-Associated Artery/Lesion type: [place] artery [place] vs. transplanted heart: [place] heart Associated angina: with unstable angina Qualified Code(s): I25.110 - Atherosclerotic heart disease of [place] coronary artery with unstable angina pectoris (6) CHF (congestive heart failure) Code(s): I50.9 - HEART FAILURE, UNSPECIFIED Qualifiers: Heart failure type: unspecified Heart failure chronicity: acute on chronic Qualified Code(s): I50.9 - Heart failure, unspecified (7) CKD (chronic kidney disease) stage 3, GFR 30-59 ml/min Code(s): N18.3 - CHRONIC KIDNEY DISEASE, STAGE 3 (MODERATE) (8) Prophylactic measure Code(s): Z29.9 - ENCOUNTER FOR PROPHYLACTIC MEASURES, UNSPECIFIED plan continue current mgmt final plan rest as per the team podiatry on board
[2019-04-09] MEDS: POLYETHYLENE GLYCOL 3350 119 GM BTL PO SCH (13:34)
[2019-04-09] MEDS: CARVEDILOL 12.5 MG TABLET (FP) PO SCH ×2 (16:29→21:20)
[2019-04-09] MEDS: FUROSEMIDE 20 MG TABLET (FP) PO SCH (16:29)
[2019-04-09] MEDS: LISINOPRIL 5 MG TABLET (FP) PO SCH (16:30)
--- NOTE | 2019-04-09 17:04 | EKG ---
Test Reason : Blood Pressure : / mmHG Vent. Rate : 058 BPM Atrial Rate : 058 BPM P-R Int : 166 ms QRS Dur : 086 ms QT Int : 454 ms P-R-T Axes : 068 050 104 degrees QTc Int : 445 ms SINUS BRADYCARDIA ABNORMAL ECG WHEN COMPARED WITH ECG OF 06-APR-2019 10:24, ST NOW DEPRESSED IN ANTERIOR LEADS INVERTED T WAVES HAVE REPLACED NONSPECIFIC T WAVE ABNORMALITY IN ANTERIOR LEADS Confirmed by JESSICA MARTINEZ, MARIVEL ([id number]) on 04/09/2019 5:04:13 PM Referred By: Diamond AYERS Confirmed By:MARIVEL LOPEZ MD
[2019-04-09] MEDS ORDERED: INSULIN (NOVOLOG) ASPART 100 UNITS/ML 10ML VIAL ONE (21:11)
[2019-04-09] MEDS: ATORVASTATIN CA 40 MG TABLET (FP) PO SCH (21:20)
[2019-04-09] MEDS: INSULIN (LEVEMIR) 100 UNITS/ML UNITS SQ SCH (21:20)
[2019-04-09] MEDS ORDERED: SODIUM CHLORIDE 0.45% 1,000 ML IV SCH (21:30)
[2019-04-10] MEDS ORDERED: PIPERACILLIN/TAZOBACTAM 3.375 GM VIAL IVPB ONE ×2 (00:44→10:33)
[2019-04-10] MEDS ORDERED: DEXTROSE 5%-WATER - 50 ML IVPB ONE ×2 (00:44→10:33)
[2019-04-10] MEDS: PIPERACILLIN/TAZOB 3.375 GM 3.375 GM in DEXTROSE 5%-WATER - 50 ML IVPB SCH ×2 (01:20→10:35)
[2019-04-10] MEDS: GABAPENTIN 300 MG CAPSULE PO SCH ×3 (05:51→21:26)
[2019-04-10] MEDS: INSULIN SLIDING SCALE (NOVOLOG) 1 VIAL SQ SCH ×4 (06:16→21:29)
[2019-04-10] MEDS: LEVOTHYROXINE NA 88 MCG TABLET (FP) PO SCH (06:18)
--- NOTE | 2019-04-10 07:24 | PN ---
Progress Note, Physician - Current Medication List Current Medications: Active Medications Acetaminophen (Tylenol -) 650 mg PO Q6H PRN PRN Reason: FEVER Last Admin: 04/08/19 02:44 Dose: 650 mg Albuterol/Ipratropium (Duoneb -) 1 amp NEB RQID [facility] Last Admin: 04/09/19 19:56 Dose: 1 amp Aspirin (Asa -) 81 mg PO DAILY [facility] Last Admin: 04/09/19 11:09 Dose: 81 mg Atorvastatin Calcium (Lipitor -) 40 mg PO HS [facility] Last Admin: 04/09/19 21:20 Dose: 40 mg Carvedilol (Coreg -) 12.5 mg PO BID [facility] Last Admin: 04/09/19 21:20 Dose: 12.5 mg Clopidogrel Bisulfate (Plavix -) 75 mg PO DAILY [facility] Last Admin: 04/09/19 11:08 Dose: 75 mg Ezetimibe (Zetia -) 10 mg PO DAILY [facility] Last Admin: 04/09/19 11:09 Dose: 10 mg Furosemide (Lasix -) 20 mg PO DAILY [facility] Last Admin: 04/09/19 16:29 Dose: Not Given Gabapentin (Neurontin -) 600 mg PO TID [facility] Last Admin: 04/10/19 05:51 Dose: 600 mg Heparin Sodium (Porcine) (Heparin -) 5,000 unit SQ BID [facility] Last Admin: 04/09/19 21:20 Dose: 5,000 unit Piperacillin Sod/Tazobactam (Sod 3.375 gm/ Dextrose) 50 mls @ 100 mls/hr IVPB Q8H-IV [facility]; Protocol Last Admin: 04/10/19 01:20 Dose: 100 mls/hr Sodium Chloride (1/2 Normal Saline) 1,000 mls @ 60 mls/hr IV ASDIR [facility] Last Admin: 04/09/19 21:45 Dose: 60 mls/hr Insulin Aspart (Novolog Vial Sliding Scale -) 1 vial SQ [facility]; Protocol Last Admin: 04/10/19 06:16 Dose: Not Given Insulin Detemir (Levemir Vial) 20 units SQ [facility] Last Admin: 04/09/19 21:20 Dose: 20 units Levothyroxine Sodium (Synthroid -) 88 mcg PO AM [facility] Last Admin: 04/10/19 06:18 Dose: 88 mcg Lisinopril (Prinivil) 2.5 mg PO DAILY [facility] Last Admin: 04/09/19 16:30 Dose: Not Given Pantoprazole Sodium (Protonix -) 40 mg PO DAILY [facility] Last Admin: 04/09/19 11:12 Dose: 40 mg Polyethylene Glycol (Miralax (For Daily Use) -) 17 gm PO DAILY [facility] Last Admin: 04/09/19 13:34 Dose: 17 gm Ranolazine (Ranexa -) 500 mg PO BID [facility] Last Admin: 04/09/19 21:21 Dose: 500 mg - Objective Vital Signs: Vital Signs Temperature 98.1 F 04/10/19 06:46 Pulse Rate 57 L 04/10/19 06:46 Respiratory Rate 19 04/10/19 06:46 Blood Pressure 131/52 L 04/10/19 06:46 O2 Sat by Pulse Oximetry (%) 96 04/09/19 21:00 Labs: CBC, BMP 04/09/19 06:30 04/09/19 06:30 INR, PTT INR 1.11 (0.83-1.09) H 04/06/19 13:20 Problem List - Problems (1) Acute on chronic systolic (congestive) heart failure Code(s): I50.23 - ACUTE ON CHRONIC SYSTOLIC (CONGESTIVE) HEART FAILURE (2) Cellulitis Code(s): L03.90 - CELLULITIS, UNSPECIFIED (3) Type 2 diabetes mellitus Code(s): E11.9 - TYPE 2 DIABETES MELLITUS WITHOUT COMPLICATIONS Qualifiers: Diabetes mellitus residential insulin use: unspecified residential insulin use status Diabetes mellitus complication status: with neurologic complications Diabetes mellitus complication detail: with polyneuropathy Qualified Code(s): E11.42 - Type 2 diabetes mellitus with diabetic polyneuropathy (4) Shortness of breath Code(s): R06.02 - SHORTNESS OF BREATH (5) CAD (coronary artery disease) Code(s): I25.10 - ATHSCL HEART DISEASE OF [place] CORONARY ARTERY W/O ANG PCTRS Qualifiers: Coronary Disease-Associated Artery/Lesion type: [place] artery [place] vs. transplanted heart: [place] heart Associated angina: with unstable angina Qualified Code(s): I25.110 - Atherosclerotic heart disease of [place] coronary artery with unstable angina pectoris (6) PAD (peripheral artery disease) Code(s): I73.9 - PERIPHERAL VASCULAR DISEASE, UNSPECIFIED (7) Anemia Code(s): D64.9 - ANEMIA, UNSPECIFIED (8) Hypothyroidism Assessment/Plan: On synthroid. TFTs WNL. Code(s): E03.9 - HYPOTHYROIDISM, UNSPECIFIED Qualifiers: Hypothyroidism type: unspecified Qualified Code(s): E03.9 - Hypothyroidism , unspecified (9) Osteomyelitis Assessment/Plan: osteomyolytis or stress Fx of right 4th toe. Code(s): M86.9 - OSTEOMYELITIS, UNSPECIFIED
[2019-04-10] MEDS: ALBUTEROL SO4 2.5/IPRATROPIUM 0.5 INH SOL 3 ML VIAL.NEB. NEB SCH ×4 (07:56→20:00)
[2019-04-10 09:04] LABS: BASO % 0.5 % (0-2.0); EOS % 4.4 % (0-4.5); HEMATOCRIT 25.3 % (32.4-45.2); HEMOGLOBIN 8.5 GM/dL (10.7-15.3); LYMPH % 23.5 % (8-40); MCH 30.7 pg (25.7-33.7); MCHC 33.6 g/dl (32.0-36.0); MEAN CELL VOLUME 91.5 fl (80-96); MEAN PLT VOLUME 8.6 fl (7.5-11.1); MONO % 10.3 % (3.8-10.2); NEUT % 61.3 % (42.8-82.8); PLATELET COUNT 222 K/MM3 (134-434); RBC 2.76 M/mm3 (3.60-5.2); RDW 13.9 % (11.6-15.6); WHITE BLOOD COUNT 9.4 K/mm3 (4.0-10.0)
[2019-04-10 09:44] LABS: ALBUMIN 2.6 g/dl (3.4-5.0); BILIRUBIN,TOTAL 0.7 mg/dL (0.2-1); BLOOD UREA NITROGEN 33.6 mg/dL (7-18); CALCIUM 8.1 mg/dL (8.5-10.1); CREATININE 1.5 mg/dL (0.55-1.3); MAGNESIUM 2.3 mg/dL (1.8-2.4); POTASSIUM 4.4 mmol/L (3.5-5.1); TOT PROT 6.2 g/dl (6.4-8.2)
[2019-04-10] MEDS: LISINOPRIL 5 MG TABLET (FP) PO SCH (10:35)
[2019-04-10] MEDS: PANTOPRAZOLE 40 MG TABLET PO SCH (10:35)
[2019-04-10] MEDS: CARVEDILOL 12.5 MG TABLET (FP) PO SCH ×2 (10:35→21:26)
[2019-04-10] MEDS: EZETIMIBE 10 MG TABLET (FP) PO SCH (10:35)
[2019-04-10] MEDS: FUROSEMIDE 20 MG TABLET (FP) PO SCH (10:35)
[2019-04-10] MEDS: RANOLAZINE E.R. 500 MG TABLET (FP) PO SCH ×2 (10:35→21:25)
[2019-04-10] MEDS: ASPIRIN 81 MG CHEWABLE TABLETS PO SCH (10:36)
[2019-04-10] MEDS: HEPARIN NA (PORCINE) 5,000 UNITS/ML 1ML VIAL SQ SCH ×2 (10:36→21:26)
[2019-04-10] MEDS: CLOPIDOGREL BISULFATE 75 MG TABLET (FP) PO SCH (10:36)
[2019-04-10] MEDS: POLYETHYLENE GLYCOL 3350 119 GM BTL PO SCH (10:36)
--- NOTE | 2019-04-10 11:00 | PN ---
Progress Note, Physician History of Present Illness: stable no new issues - Current Medication List Current Medications: Active Medications Acetaminophen (Tylenol -) 650 mg PO Q6H PRN PRN Reason: FEVER Last Admin: 04/08/19 02:44 Dose: 650 mg Albuterol/Ipratropium (Duoneb -) 1 amp NEB RQID [facility] Last Admin: 04/10/19 07:56 Dose: 1 amp Aspirin (Asa -) 81 mg PO DAILY [facility] Last Admin: 04/10/19 10:36 Dose: 81 mg Atorvastatin Calcium (Lipitor -) 40 mg PO HS [facility] Last Admin: 04/09/19 21:20 Dose: 40 mg Carvedilol (Coreg -) 12.5 mg PO BID [facility] Last Admin: 04/10/19 10:35 Dose: 12.5 mg Clopidogrel Bisulfate (Plavix -) 75 mg PO DAILY [facility] Last Admin: 04/10/19 10:36 Dose: 75 mg Ezetimibe (Zetia -) 10 mg PO DAILY [facility] Last Admin: 04/10/19 10:35 Dose: 10 mg Furosemide (Lasix -) 20 mg PO DAILY [facility] Last Admin: 04/10/19 10:35 Dose: 20 mg Gabapentin (Neurontin -) 600 mg PO TID [facility] Last Admin: 04/10/19 05:51 Dose: 600 mg Heparin Sodium (Porcine) (Heparin -) 5,000 unit SQ BID [facility] Last Admin: 04/10/19 10:36 Dose: 5,000 unit Piperacillin Sod/Tazobactam (Sod 3.375 gm/ Dextrose) 50 mls @ 100 mls/hr IVPB Q8H-IV [facility]; Protocol Last Admin: 04/10/19 10:35 Dose: 100 mls/hr Sodium Chloride (1/2 Normal Saline) 1,000 mls @ 60 mls/hr IV ASDIR [facility] Last Admin: 04/09/19 21:45 Dose: 60 mls/hr Insulin Aspart (Novolog Vial Sliding Scale -) 1 vial SQ [facility]; Protocol Last Admin: 04/10/19 06:16 Dose: Not Given Insulin Detemir (Levemir Vial) 20 units SQ HS [facility] Last Admin: 04/09/19 21:20 Dose: 20 units Levothyroxine Sodium (Synthroid -) 88 mcg PO AM [facility] Last Admin: 04/10/19 06:18 Dose: 88 mcg Lisinopril (Prinivil) 2.5 mg PO DAILY [facility] Last Admin: 04/10/19 10:35 Dose: 2.5 mg Pantoprazole Sodium (Protonix -) 40 mg PO DAILY [facility] Last Admin: 04/10/19 10:35 Dose: 40 mg Polyethylene Glycol (Miralax (For Daily Use) -) 17 gm PO DAILY [facility] Last Admin: 04/10/19 10:36 Dose: 17 gm Ranolazine (Ranexa -) 500 mg PO BID [facility] Last Admin: 04/10/19 10:35 Dose: 500 mg - Objective Vital Signs: Vital Signs Temperature 97.4 F L 04/10/19 10:25 Pulse Rate 58 L 04/10/19 10:25 Respiratory Rate 19 04/10/19 10:25 Blood Pressure 128/61 04/10/19 10:25 O2 Sat by Pulse Oximetry (%) 96 04/10/19 09:00 Constitutional: Yes: No Distress, Calm Cardiovascular: Yes: S1, S2 Respiratory: Yes: Regular, CTA Bilaterally Gastrointestinal: Yes: Normal Bowel Sounds, Soft Musculoskeletal: Yes: WNL Extremities: Yes: Other Neurological: Yes: Alert, Oriented Psychiatric: Yes: Alert, Oriented Labs: CBC, BMP 04/10/19 08:38 04/10/19 08:38 INR, PTT INR 1.11 (0.83-1.09) H 04/06/19 13:20 Assessment/Plan Problem List - Problems (1) Cellulitis Code(s): L03.90 - CELLULITIS, UNSPECIFIED (2) S/P CABG (coronary artery bypass graft) Code(s): Z95.1 - PRESENCE OF AORTOCORONARY BYPASS GRAFT (3) Type 2 diabetes mellitus Code(s): E11.9 - TYPE 2 DIABETES MELLITUS WITHOUT COMPLICATIONS Qualifiers: Diabetes mellitus long term care pharmacist insulin use: unspecified assisted insulin use status Diabetes mellitus complication status: with neurologic complications Diabetes mellitus complication detail: with polyneuropathy Qualified Code(s): E11.42 - Type 2 diabetes mellitus with diabetic polyneuropathy (4) COPD (chronic obstructive pulmonary disease) Assessment/Plan: cookie prn Code(s): J44.9 - CHRONIC OBSTRUCTIVE PULMONARY DISEASE, UNSPECIFIED (5) CAD (coronary artery disease) Code(s): I25.10 - ATHSCL HEART DISEASE OF [place] CORONARY ARTERY W/O ANG PCTRS Qualifiers: Coronary Disease-Associated Artery/Lesion type: [place] artery [place] vs. transplanted heart: [place] heart Associated angina: with unstable angina Qualified Code(s): I25.110 - Atherosclerotic heart disease of [place] coronary artery with unstable angina pectoris (6) CHF (congestive heart failure) Code(s): I50.9 - HEART FAILURE, UNSPECIFIED Qualifiers: Heart failure type: unspecified Heart failure chronicity: acute on chronic Qualified Code(s): I50.9 - Heart failure, unspecified (7) CKD (chronic kidney disease) stage 3, GFR 30-59 ml/min Code(s): N18.3 - CHRONIC KIDNEY DISEASE, STAGE 3 (MODERATE) (8) Prophylactic measure Code(s): Z29.9 - ENCOUNTER FOR PROPHYLACTIC MEASURES, UNSPECIFIED plan cx result noted stopped zosyn will start patient on vanco await for podiatry plan wound care rest as per the team
--- NOTE | 2019-04-10 11:15 | PN ---
Progress Note (short form) - Note Progress Note: PULMONARY States breathing slightly improving. +nonproductive cough. Vital Signs Period Temp Pulse Resp BP Sys/Ibarra Pulse Ox Last 24 Hr 97.4 F-99.0 F 54-58 18-21 106-131/48-61 96-96 Intake & Output 04/07/19 04/08/19 04/09/19 04/10/19 23:59 23:59 23:59 23:59 Intake Total 1810 1000 1320 590 Balance 1810 1000 1320 590 Weight 77.61 kg 77.281 kg 78.834 kg 79.067 kg Gen: mildly tachypneic with speaking Heart: RRR Lung: decreased breath sounds at the bases Abd: soft, nontender Ext: no edema CBC, BMP 04/10/19 08:38 04/10/19 08:38 Active Medications Acetaminophen (Tylenol -) 650 mg PO Q6H PRN PRN Reason: FEVER Last Admin: 04/08/19 02:44 Dose: 650 mg Albuterol/Ipratropium (Duoneb -) 1 amp NEB RQID [facility] Last Admin: 04/10/19 07:56 Dose: 1 amp Aspirin (Asa -) 81 mg PO DAILY [facility] Last Admin: 04/10/19 10:36 Dose: 81 mg Atorvastatin Calcium (Lipitor -) 40 mg PO HS [facility] Last Admin: 04/09/19 21:20 Dose: 40 mg Carvedilol (Coreg -) 12.5 mg PO BID [facility] Last Admin: 04/10/19 10:35 Dose: 12.5 mg Clopidogrel Bisulfate (Plavix -) 75 mg PO DAILY [facility] Last Admin: 04/10/19 10:36 Dose: 75 mg Ezetimibe (Zetia -) 10 mg PO DAILY [facility] Last Admin: 04/10/19 10:35 Dose: 10 mg Furosemide (Lasix -) 20 mg PO DAILY [facility] Last Admin: 04/10/19 10:35 Dose: 20 mg Gabapentin (Neurontin -) 600 mg PO TID [facility] Last Admin: 04/10/19 05:51 Dose: 600 mg Heparin Sodium (Porcine) (Heparin -) 5,000 unit SQ BID [facility] Last Admin: 04/10/19 10:36 Dose: 5,000 unit Sodium Chloride (1/2 Normal Saline) 1,000 mls @ 60 mls/hr IV ASDIR [facility] Last Admin: 04/09/19 21:45 Dose: 60 mls/hr Vancomycin HCl (Vancomycin (Pre-Docked)) 1,000 mg in 250 mls @ 166.667 mls/hr IVPB Q12H [facility]; Protocol Insulin Aspart (Novolog Vial Sliding Scale -) 1 vial SQ ACHS [facility]; Protocol Last Admin: 04/10/19 06:16 Dose: Not Given Insulin Detemir (Levemir Vial) 20 units SQ HS [facility] Last Admin: 04/09/19 21:20 Dose: 20 units Levothyroxine Sodium (Synthroid -) 88 mcg PO AM [facility] Last Admin: 04/10/19 06:18 Dose: 88 mcg Lisinopril (Prinivil) 2.5 mg PO DAILY [facility] Last Admin: 04/10/19 10:35 Dose: 2.5 mg Pantoprazole Sodium (Protonix -) 40 mg PO DAILY [facility] Last Admin: 04/10/19 10:35 Dose: 40 mg Polyethylene Glycol (Miralax (For Daily Use) -) 17 gm PO DAILY [facility] Last Admin: 04/10/19 10:36 Dose: 17 gm Ranolazine (Ranexa -) 500 mg PO BID [facility] Last Admin: 04/10/19 10:35 Dose: 500 mg A/P Acute on Chronic Systolic Heart Failure CAD s/p CABG Pulmonary HTN Acute on Chronic Renal Failure HTN DM PAD L Toe Osteomyelitis Hypothyroidism Anemia Hyponatremia - antibiotics per ID - would stop IVF - monitor lytes - monitor urine output, creatinine - daily weights - lasix - O2 to keep SpO2 >905 - DVT prophylaxis
--- NOTE | 2019-04-10 11:15 | PN ---
Progress Note, Physician History of Present Illness: Non-productive cough, denies dyspnea or orthopnea. - Current Medication List Current Medications: Active Medications Acetaminophen (Tylenol -) 650 mg PO Q6H PRN PRN Reason: FEVER Last Admin: 04/08/19 02:44 Dose: 650 mg Albuterol/Ipratropium (Duoneb -) 1 amp NEB RQID [facility] Last Admin: 04/10/19 07:56 Dose: 1 amp Aspirin (Asa -) 81 mg PO DAILY [facility] Last Admin: 04/10/19 10:36 Dose: 81 mg Atorvastatin Calcium (Lipitor -) 40 mg PO HS [facility] Last Admin: 04/09/19 21:20 Dose: 40 mg Carvedilol (Coreg -) 12.5 mg PO BID [facility] Last Admin: 04/10/19 10:35 Dose: 12.5 mg Clopidogrel Bisulfate (Plavix -) 75 mg PO DAILY [facility] Last Admin: 04/10/19 10:36 Dose: 75 mg Ezetimibe (Zetia -) 10 mg PO DAILY [facility] Last Admin: 04/10/19 10:35 Dose: 10 mg Furosemide (Lasix -) 20 mg PO DAILY [facility] Last Admin: 04/10/19 10:35 Dose: 20 mg Gabapentin (Neurontin -) 600 mg PO TID [facility] Last Admin: 04/10/19 05:51 Dose: 600 mg Heparin Sodium (Porcine) (Heparin -) 5,000 unit SQ BID [facility] Last Admin: 04/10/19 10:36 Dose: 5,000 unit Sodium Chloride (1/2 Normal Saline) 1,000 mls @ 60 mls/hr IV ASDIR [facility] Last Admin: 04/09/19 21:45 Dose: 60 mls/hr Vancomycin HCl (Vancomycin (Pre-Docked)) 1,000 mg in 250 mls @ 166.667 mls/hr IVPB Q12H [facility]; Protocol Insulin Aspart (Novolog Vial Sliding Scale -) 1 vial SQ ACHS [facility]; Protocol Last Admin: 04/10/19 06:16 Dose: Not Given Insulin Detemir (Levemir Vial) 20 units SQ HS [facility] Last Admin: 04/09/19 21:20 Dose: 20 units Levothyroxine Sodium (Synthroid -) 88 mcg PO AM [facility] Last Admin: 04/10/19 06:18 Dose: 88 mcg Lisinopril (Prinivil) 2.5 mg PO DAILY [facility] Last Admin: 04/10/19 10:35 Dose: 2.5 mg Pantoprazole Sodium (Protonix -) 40 mg PO DAILY [facility] Last Admin: 04/10/19 10:35 Dose: 40 mg Polyethylene Glycol (Miralax (For Daily Use) -) 17 gm PO DAILY [facility] Last Admin: 04/10/19 10:36 Dose: 17 gm Ranolazine (Ranexa -) 500 mg PO BID [facility] Last Admin: 04/10/19 10:35 Dose: 500 mg - Objective Vital Signs: Vital Signs Temperature 97.4 F L 04/10/19 10:25 Pulse Rate 58 L 04/10/19 10:25 Respiratory Rate 19 04/10/19 10:25 Blood Pressure 128/61 04/10/19 10:25 O2 Sat by Pulse Oximetry (%) 96 04/10/19 09:00 Constitutional: Yes: No Distress, Calm Neck: Yes: Supple Cardiovascular: Yes: Regular Rate and Rhythm Respiratory: Yes: Regular, Diminished, On Nasal O2 Gastrointestinal: Yes: Soft, Abdomen, Obese, Hypoactive Bowel Sounds Edema: No Labs: CBC, BMP 04/10/19 08:38 04/10/19 08:38 INR, PTT INR 1.11 (0.83-1.09) H 04/06/19 13:20 Assessment/Plan 08/19/2018 Echo: Mild-mod decreased LVEF 40-45% with AK in old LAD infarct, normal RV size and fxn, mild LAE, mild MR, mod TR 09/10/2017 Echo: (Old LAD infarct) mild-moderate decrease in LV systolic function, mild ISA, trace MR, severe apical septal and apical lateral hypokinesia - Problems (1) Acute on chronic systolic (congestive) heart failure with pulm HTN Code(s): I50.23 - ACUTE ON CHRONIC SYSTOLIC (CONGESTIVE) HEART FAILURE Continue Lasix 20 qd, d/c IVF, lisinopril 2.5 qd (2) Cellulitis Code(s): L03.90 - CELLULITIS, UNSPECIFIED (3) Type 2 diabetes mellitus Code(s): E11.9 - TYPE 2 DIABETES MELLITUS WITHOUT COMPLICATIONS Qualifiers: Diabetes mellitus group home insulin use: unspecified superintendent terminal insulin use status Diabetes mellitus complication status: with neurologic complications Diabetes mellitus complication detail: with polyneuropathy Qualified Code(s): E11.42 - Type 2 diabetes mellitus with diabetic polyneuropathy (4) Shortness of breath Code(s): R06.02 - SHORTNESS OF BREATH (5) CAD (coronary artery disease) s/p CABG Code(s): I25.10 - ATHSCL HEART DISEASE OF [place] CORONARY ARTERY W/O ANG PCTRS Qualifiers: Coronary Disease-Associated Artery/Lesion type: [place] artery [place] vs. transplanted heart: [place] heart Associated angina: with unstable angina Qualified Code(s): I25.110 - Atherosclerotic heart disease of [place] coronary artery with unstable angina pectoris Continue ASA 81 qd, Plavix 75 qd, carvedilol 12.5 bid, Lipitor 40 qd, Zetia 10 qd, Ranexa 500 bid (6) PAD (peripheral artery disease) Code(s): I73.9 - PERIPHERAL VASCULAR DISEASE, UNSPECIFIED (7) Anemia Code(s): D64.9 - ANEMIA, UNSPECIFIED (8) Hypothyroidism Assessment/Plan: On synthroid 88 qd. TFTs WNL. Code(s): E03.9 - HYPOTHYROIDISM, UNSPECIFIED Qualifiers: Hypothyroidism type: unspecified Qualified Code(s): E03.9 - Hypothyroidism , unspecified (9) Osteomyelitis Assessment/Plan: osteomyolytis or stress Fx of right 4th toe, on abx planned for wound care Code(s): M86.9 - OSTEOMYELITIS, UNSPECIFIED (10) Hyponatremia E87.1
[2019-04-10] MEDS: VANCOMYCIN 1 GRAM (PRE-DOCKED) 1,000 MG/250 ML BAG IVPB SCH ×2 (11:38→22:18)
--- NOTE | 2019-04-10 12:55 | PN ---
Physical Exam: SUBJECTIVE: Patient seen and examined at the bedside. daughter reports that patient is having difficulty with swallowing even when she attempts to eat at home. OBJECTIVE: Patient is an 83 year old female with a significant past medical history of hypertension, diabetes 2, hld, CHF, GERD, neuropathy, chronic diffuse pain, hypothyroidism, chronic L great toe osteomyelitis, S/P CABG (coronary artery bypass graft)and NSTEMI. Patient presents from her doctors office for left 4th toe redness with left 4th toe ulcer and redness from this toe that extends up to her anterior left foot. She had a hospitalization 1 year ago for prior gangrene/infection to 1st toe on left foot. No recent injury or falls, no trauma of this foot. foot xray is negative for acute fracture. difficulty swallowing at times, happens at home also. will ask speech and swallow to evaluate. cardiology/renal clearance for angiogram imaging: MRI: left foot osteo vs stress fracture. left foot xray: negative for fracture Vital Signs Period Temp Pulse Resp BP Sys/Ibarra Pulse Ox Last 24 Hr 97.4 F-99.0 F 54-58 18-21 106-131/48-61 96-96 GENERAL: Awake, alert, and fully oriented HEAD: Normal with no signs of trauma. EYES: Pupils equal, round and reactive to light, extraocular movements intact, sclera anicteric, conjunctiva clear. No lid lag. EARS, NOSE, THROAT: Ears normal, nares patent, oropharynx clear without exudates. Moist mucous membranes. NECK: Normal range of motion, supple without lymphadenopathy, JVD, or masses. LUNGS: accessory muscle use, left lung congestion, given lasix 40 and 2 liters placed. HEART: Regular rate and rhythm ABDOMEN: Soft, nontender, obese abdomen MUSCULOSKELETAL: Normal range of motion at all joints. No bony deformities or tenderness. No CVA tenderness. UPPER EXTREMITIES: 2+ pulses, warm, well-perfused. No cyanosis. No clubbing. No peripheral edema. LOWER EXTREMITIES: left foot left foot appears erythematous from 4th toe to the anterior of foot. left great toe with small ulcer that is drainage clear fluid. cultured in the Ed. 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. Normal gait. Laboratory Results - last 24 hr 04/09/19 04/09/19 04/10/19 16:42 21:17 05:45 WBC RBC Hgb Hct MCV MCH MCHC RDW Plt Count MPV Absolute Neuts (auto) Neutrophils % Lymphocytes % Monocytes % Eosinophils % Basophils % Nucleated RBC % Sodium Potassium Chloride Carbon Dioxide Anion Gap BUN Creatinine Est GFR (CKD-EPI)AfAm Est GFR (CKD-EPI)NonAf POC Glucometer 189 140 132 Random Glucose Calcium Magnesium Total Bilirubin AST ALT Alkaline Phosphatase Total Protein Albumin 04/10/19 04/10/19 04/10/19 08:38 08:38 11:45 WBC 9.4 RBC 2.76 L Hgb 8.5 L Hct 25.3 L MCV 91.5 MCH 30.7 MCHC 33.6 RDW 13.9 Plt Count 222 MPV 8.6 Absolute Neuts (auto) 5.8 Neutrophils % 61.3 Lymphocytes % 23.5 Monocytes % 10.3 H Eosinophils % 4.4 D Basophils % 0.5 Nucleated RBC % 0 Sodium 130 L Potassium 4.4 Chloride 96 L Carbon Dioxide 28 Anion Gap 6 L BUN 33.6 H Creatinine 1.5 H Est GFR (CKD-EPI)AfAm 36.95 Est GFR (CKD-EPI)NonAf 31.88 POC Glucometer 138 Random Glucose 121 H Calcium 8.1 L Magnesium 2.3 Total Bilirubin 0.7 AST 18 ALT 21 Alkaline Phosphatase 103 Total Protein 6.2 L Albumin 2.6 L Active Medications Generic Name Dose Route Start Last Admin Trade Name Freq PRN Reason Stop Dose Admin Acetaminophen 650 mg 04/06/19 17:25 04/08/19 02:44 Tylenol - PO 650 mg Q6H PRN Administration FEVER Albuterol/Ipratropium 1 amp 04/08/19 12:00 04/10/19 11:10 Duoneb - NEB 1 amp RQID PALOMA Administration Aspirin 81 mg 04/07/19 10:00 04/10/19 10:36 Asa - PO 81 mg DAILY PALOMA Administration Atorvastatin Calcium 40 mg 04/06/19 22:00 04/09/19 21:20 Lipitor - PO 40 mg HS PALOMA Administration Carvedilol 12.5 mg 04/06/19 22:00 04/10/19 10:35 Coreg - PO 12.5 mg BID PALOMA Administration Clopidogrel Bisulfate 75 mg 04/07/19 10:00 04/10/19 10:36 Plavix - PO 75 mg DAILY PALOMA Administration Ezetimibe 10 mg 04/07/19 10:00 04/10/19 10:35 Zetia - PO 10 mg DAILY PALOMA Administration Furosemide 20 mg 04/07/19 10:00 04/10/19 10:35 Lasix - PO 20 mg DAILY PALOMA Administration Gabapentin 600 mg 04/06/19 22:00 04/10/19 05:51 Neurontin - PO 600 mg TID PALOMA Administration Heparin Sodium (Porcine) 5,000 unit 04/06/19 22:00 04/10/19 10:36 Heparin - SQ 5,000 unit BID PALOMA Administration Vancomycin HCl 1,000 mg in 250 mls @ 166.667 mls/hr 04/10/19 11:00 04/10/19 11:38 Vancomycin (Pre-Docked) IVPB 166.667 mls/hr Q12H PALOMA Administration Protocol Insulin Aspart 1 vial 04/07/19 17:08 04/10/19 11:46 Novolog Vial Sliding Scale - SQ Not Given ACHS PALOMA Protocol Insulin Detemir 20 units 04/08/19 08:12 04/09/19 21:20 Levemir Vial SQ 20 units HS PALOMA Administration Levothyroxine Sodium 88 mcg 04/07/19 07:00 04/10/19 06:18 Synthroid - PO 88 mcg AM PALOMA Administration Lisinopril 2.5 mg 04/09/19 10:00 04/10/19 10:35 Prinivil PO 2.5 mg DAILY PALOMA Administration Pantoprazole Sodium 40 mg 04/07/19 10:00 04/10/19 10:35 Protonix - PO 40 mg DAILY PALOMA Administration Polyethylene Glycol 17 gm 04/09/19 12:45 04/10/19 10:36 Miralax (For Daily Use) - PO 17 gm DAILY [facility] Administration Ranolazine 500 mg 04/06/19 22:00 04/10/19 10:35 Ranexa - PO 500 mg BID PALOMA Administration ASSESSMENT/PLAN: Problem List - Problems (1) Shortness of breath Assessment/Plan: improving, continue on 2 liters of nasal cannula. echo pending chest xray shows congestive changes. no chest pain. She has a long cardiac history and had some crackles auscultated on her left lung field. she was placed on 2 liters of nasal cannula and her duonebs were scheduled to be given every 4-6hours. cardiolology/pulmonary consulted and following. Code(s): R06.02 - SHORTNESS OF BREATH (2) Cellulitis Assessment/Plan: left foot cellulitis, left 4th toe cellulitis/edema with erythema extending to left anterior foot. on zosyn per id. blood and urine cultures ngtd, wound culture staph coag. positive. lactic acid normal ID and podiatry consulted MRI shows possible osteo vs. stress fracture vascular following and possible angiogram planned. Code(s): L03.90 - CELLULITIS, UNSPECIFIED (3) S/P CABG (coronary artery bypass graft) Assessment/Plan: continue home meds no chest pain Code(s): Z95.1 - PRESENCE OF AORTOCORONARY BYPASS GRAFT (4) Type 2 diabetes mellitus Assessment/Plan: novolg and levemir diabetic diet a1c 9.6 Code(s): E11.9 - TYPE 2 DIABETES MELLITUS WITHOUT COMPLICATIONS Qualifiers: Diabetes mellitus medical terminologist insulin use: unspecified medical terminologist insulin use status Diabetes mellitus complication status: with neurologic complications Diabetes mellitus complication detail: with polyneuropathy Qualified Code(s): E11.42 - Type 2 diabetes mellitus with diabetic polyneuropathy (5) COPD (chronic obstructive pulmonary disease) Assessment/Plan: duonebs prn Code(s): J44.9 - CHRONIC OBSTRUCTIVE PULMONARY DISEASE, UNSPECIFIED (6) CAD (coronary artery disease) Assessment/Plan: continue home meds Code(s): I25.10 - ATHSCL HEART DISEASE OF [place] CORONARY ARTERY W/O ANG PCTRS Qualifiers: Coronary Disease-Associated Artery/Lesion type: [place] artery [place] vs. transplanted heart: [place] heart Associated angina: with unstable angina Qualified Code(s): I25.110 - Atherosclerotic heart disease of [place] coronary artery with unstable angina pectoris (7) CHF (congestive heart failure) Assessment/Plan: monitor intake and output. on lasix. Code(s): I50.9 - HEART FAILURE, UNSPECIFIED Qualifiers: Heart failure type: unspecified Heart failure chronicity: acute on chronic Qualified Code(s): I50.9 - Heart failure, unspecified (8) CKD (chronic kidney disease) stage 3, GFR 30-59 ml/min Assessment/Plan: daily monitoring of kidney function appears to be at her baseline renal following Code(s): N18.3 - CHRONIC KIDNEY DISEASE, STAGE 3 (MODERATE) (9) Prophylactic measure Assessment/Plan: fen toleraring po stop ivf monitor electrolyes full code Code(s): Z29.9 - ENCOUNTER FOR PROPHYLACTIC MEASURES, UNSPECIFIED Visit type - Emergency Visit Emergency Visit: Yes ED Registration Date: 04/06/19 Care time: The patient presented to the Emergency Department on the above date and was hospitalized for further evaluation of their emergent condition. - New Patient This patient is new to me today: No - Critical Care Critical Care patient: No - Discharge Referral Referred to [facility] Med [facility] No
--- NOTE | 2019-04-10 13:05 | CONSULT ---
Admitting History and Physical - Primary Care Physician PCP: Cristiana Apodaca - Admission History of Present Illness: 83 year old female with a significant past medical history of hypertension, diabetes 2, hld, CHF, GERD, neuropathy, chronic diffuse pain, hypothyroidism, chronic L great toe osteomyelitis and NSTEMI. Pt reports difficulty swallowing at times Selected Entries 04/07/19 04/07/19 04/08/19 11:04 14:01 23:02 Breakfast 100% Lunch 100% Supper 25% Temperature 04/09/19 04/09/19 04/09/19 09:00 15:19 22:51 Breakfast Lunch Supper 50% Temperature 97.8 F 99.0 F 98.7 F 04/10/19 04/10/19 06:46 10:25 Breakfast Lunch Supper Temperature 98.1 F 97.4 F L Laboratory Tests 04/06/19 04/07/19 04/08/19 11:40 07:10 07:50 WBC 14.0 H 9.3 11.5 H 04/09/19 04/10/19 06:30 08:38 WBC 12.0 H 9.4 Seen by me 08/27/17- Pt reported difficulty with solids sticking in her chest, food coming back up. This began 2 mths ago. She also reports choking with liquids and throat/upper chest pain while swallowing. MBS performed, with normal oral pharyngeal swallow but with mild tertiary contraction and slightly delayed esoph emptying. Reg diet/thin liquids/OOB x 1 hour after meals. 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) Endocrine: Yes: Diabetes Mellitus, Hypothyroidism - Advance Directives Advance Directives: Yes: Health Care Proxy - Smoking History Smoking history: Never smoked Have you smoked in the past 12 months: No Aproximately how many cigarettes per day: 0 - Alcohol/Substance Use Hx Alcohol Use: No History - Admission Reason For Visit: CELLULITIS - Diagnostics Modified Barium Swallow: Report Reviewed (08/27/17 mbs (-)) - General Mental Status: Alert and Oriented, Awake and Alert, Able to Follow Commands Attention: Intact Ability to Follow Directions: Excellent Head/Neck Control: WFL - Hearing Hearing: Normal Speech Evaluation - Communication Primary Language: KAZAKH Communication: Yes: Within Normal Limits, Language Barrier Oral Expression Ability: Yes: No Impairment - Speech Production Able to Make Needs Known: Yes: WNL Intelligibility: Yes: WNL - Speech Characteristics Voice Loudness: Normal Voice Pitch: Yes: Normal Voice Phonatory-based Quality: Yes: Normal Speech Pattern: Normal Nasal Resonance: Normal Articulation: Yes: Precise Rate of Speech: Intact - Language/Auditory Comprehension Follows: Yes: 2 Stage Simple Commands - Language/Verbal Expression Able to Respond to Simple Queries: Yes: WNL Able to Communicate Wants and Needs: Yes: WNL Functional Communication Status: Yes: WNL - Memory/Perception CHCF Memory: Yes: WNL Short Term Memory: Yes: WNL - Swallow Evaluation/Bedside Assessment Current Nutritional Intake: Regular, Thin Liquids Dentition: Yes: Adequate Facial Symmetry at Rest: Symmetrical Facial Symmetry on Retraction: Symmetrical Facial Movement: Controlled Sensation: Normal Against Resistance Opening: Normal Against Resistance Closing: Normal Pucker Lips: Normal Smile: Normal Lingual Movement: Normal, Symmetric Lingual Speed of Movement: Normal Lingual Movement Strgth Against Opposition: Normal Lingual Movement Characteristics: Normal Velopharyngeal Movement: Normal Laryngeal Elevation: WFL Laryngeal Movement: Able to Palpate Rate of Intake: WFL Bolus Size: WFL Labial Seal: WFL Chewing: WFL A-P Transit: WFL Timing of Swallow: WFL Coughing/Throat Clear: No Change in Voice: No Recommendations - Speech Evaluation, Impression/Plan Impression: Pt c/o up food sticking in throat/chest. MBS 2018 mild tertiary contraction/delayed emptying. Pt reclines flat immediately after meals in hospital. She denies this at home.Reviewe rec for upright x 1 hour after meals. Nursing reports pt quite tired,weak, congested today. Congestion may be related to impaired esoph emptyiong and reclining soon after meals. - Dysphagia Impressions/Plan Swallowing Skills: Impaired Dysphagia Impressions: Mild Impairment *Silent aspiration: cannot be R/O at bedside Dysphagia Treatment Plan: OOB for meals, OOB for 1 h. after meals, Other ( monitor tolerance) Recommendations: MBS w Esophagus (vs esophagram to assess esoph emptying/ structure/function.) - Recommendations Diet Consistency: Regular Medication Administration: Whole with water Liquids: Thin Liquids
--- NOTE | 2019-04-10 13:24 | PN ---
Progress Note (short form) - Note Progress Note: Exam unchanged. OR time not available today for angiogram. I have scheduled for Wednesday at 10 AM. Cr remains elevated 1.5 Renal consult recommended. 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
--- NOTE | 2019-04-10 15:22 | CONSULT ---
Consult Consult Specialty:: Nephrology Reason for Consultation:: HAROLDO - History of Present Illness Chief Complaint: left foot ulcer History of Present Illness: Pt is an 83 year old female with pmhx of htn, dm, chf, gerd osteomyelitis and nstemi who presents to the ER from her doctors office for left foot infection. Sh was found to have elevate creatinine. I was called to optimize her for agiogram. Her renal function is slowly improving. She denies shortness of breath. She denies dysuria. She denies hematuria. She complains of constipation. 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) Endocrine: Yes: Diabetes Mellitus, Hypothyroidism - Alcohol/Substance Use Hx Alcohol Use: No - Smoking History Smoking history: Never smoked Have you smoked in the past 12 months: No Aproximately how many cigarettes per day: 0 Home Medications - Allergies Allergies/Adverse Reactions: Allergies Allergy/AdvReac Type Severity Reaction Status Date / Time No Known Drug Allergies Allergy Verified 04/06/19 10:27 - Home Medications Home Medications: Ambulatory Orders Aspirin [ASA -] 81 mg PO DAILY 08/20/17 Carvedilol [Coreg -] 12.5 mg PO BID 08/20/17 Levothyroxine [Synthroid -] 88 mcg PO DAILY 08/20/17 Ranolazine [Ranexa] 500 mg PO BID 08/20/17 Atorvastatin Ca [Lipitor] 40 mg PO HS #30 tablet 09/21/17 Gabapentin [Neurontin -] 600 mg PO TID 02/25/18 Insulin Detemir [Levemir Flextouch] 35 unit SQ HS 02/25/18 Magnesium Hydrox 2400MG/30Ml [Milk of Magnesia -] 30 ml PO DAILY PRN cup Clopidogrel Bisulfate [Plavix -] 75 mg PO DAILY tablet 08/24/18 Docusate Sodium [Colace -] 300 mg PO HS capsule 08/24/18 Ezetimibe [Zetia -] 10 mg PO DAILY tablet 08/24/18 Furosemide [Lasix -] 20 mg PO DAILY tablet 08/24/18 Insulin Sliding Scale [Novolog Vial Sliding Scale -] 1 vial SQ ACHS units 08/24 Nitroglycerin Sublingual [Nitrostat -] 0.4 mg SL Q5M PRN tab 08/24/18 Pantoprazole Sodium [Protonix -] 40 mg PO DAILY tablet.ec 08/24/18 Polyethylene Glycol 3350 [Miralax 119 gm Btl -] 17 gm PO DAILY bottle 08/24/18 Sennosides [Senna -] 2 tab PO HS tablet 08/24/18 Acetaminophen 650 mg PO DAILY PRN MDD 1950 09/08/18 Family Medical History Family History: Denies Review of Systems - Review of Systems Constitutional: reports: Malaise Eyes: reports: No Symptoms HENT: reports: No Symptoms Neck: reports: No Symptoms Cardiovascular: reports: No Symptoms Respiratory: reports: No Symptoms Gastrointestinal: reports: Constipation Genitourinary: reports: No Symptoms Musculoskeletal: reports: No Symptoms Integumentary: reports: No Symptoms Neurological: reports: No Symptoms Endocrine: reports: No Symptoms Hematology/Lymphatic: reports: No Symptoms Psychiatric: reports: No Symptoms Physical Exam Vital Signs: Vital Signs Temperature 98.2 F 04/10/19 13:32 Pulse Rate 57 L 04/10/19 13:32 Respiratory Rate 18 04/10/19 13:32 Blood Pressure 93/41 L 04/10/19 13:32 O2 Sat by Pulse Oximetry (%) 96 04/10/19 09:00 Constitutional: Yes: Calm Eyes: Yes: Conjunctiva Clear HENT: Yes: Atraumatic Cardiovascular: Yes: S1, S2 Respiratory: Yes: CTA Bilaterally Gastrointestinal: Yes: Soft Renal/: Yes: WNL Extremities: Yes: Other (left foot erythema) Edema: No Neurological: Yes: Oriented Psychiatric: Yes: Oriented Labs: CBC, BMP 04/10/19 08:38 04/10/19 08:38 Laboratory Tests 08/23/18 08/24/18 08/28/18 22:30 06:30 11:00 Sodium 130 L Potassium 4.8 Creatinine 1.1 1.2 1.2 Serum Osmolality 283 Urine Protein Urine Blood 09/08/18 09/08/18 04/06/19 02:56 07:00 13:00 Sodium Potassium Creatinine 1.4 H 1.3 Serum Osmolality Urine Protein Negative Urine Blood Negative 11/14/19 11/15/19 11/16/19 13:20 07:10 07:50 Sodium Potassium Creatinine 1.3 1.4 H 1.4 H Serum Osmolality Urine Protein Urine Blood 04/09/19 04/10/19 06:30 08:38 Sodium Potassium Creatinine 1.6 H 1.5 H Serum Osmolality Urine Protein Urine Blood Imaging - Results MRI: Report Reviewed Problem List - Problems (1) HAROLDO (acute kidney injury) Code(s): N17.9 - ACUTE KIDNEY FAILURE, UNSPECIFIED (2) Acute on chronic systolic (congestive) heart failure Code(s): I50.23 - ACUTE ON CHRONIC SYSTOLIC (CONGESTIVE) HEART FAILURE (3) Anemia Code(s): D64.9 - ANEMIA, UNSPECIFIED (4) Cellulitis Code(s): L03.90 - CELLULITIS, UNSPECIFIED Assessment/Plan Current Medications Generic Name Dose Route Start Last Admin Trade Name Freq PRN Reason Stop Dose Admin Acetaminophen 650 mg 04/06/19 17:25 04/08/19 02:44 Tylenol - PO 650 mg Q6H PRN Administration FEVER Albuterol/Ipratropium 1 amp 04/08/19 12:00 04/10/19 11:10 Duoneb - NEB 1 amp RQID PALOMA Administration Aspirin 81 mg 04/07/19 10:00 04/10/19 10:36 Asa - PO 81 mg DAILY PALOMA Administration Atorvastatin Calcium 40 mg 04/06/19 22:00 04/09/19 21:20 Lipitor - PO 40 mg HS PALOMA Administration Carvedilol 12.5 mg 04/06/19 22:00 04/10/19 10:35 Coreg - PO 12.5 mg BID PALOMA Administration Clopidogrel Bisulfate 75 mg 04/07/19 10:00 04/10/19 10:36 Plavix - PO 75 mg DAILY PALOMA Administration Ezetimibe 10 mg 04/07/19 10:00 04/10/19 10:35 Zetia - PO 10 mg DAILY PALOMA Administration Furosemide 20 mg 04/07/19 10:00 04/10/19 10:35 Lasix - PO 20 mg DAILY PALOMA Administration Gabapentin 600 mg 04/06/19 22:00 04/10/19 14:49 Neurontin - PO 600 mg TID PALOMA Administration Heparin Sodium (Porcine) 5,000 unit 04/06/19 22:00 04/10/19 10:36 Heparin - SQ 5,000 unit BID PALOMA Administration Vancomycin HCl 1,000 mg in 250 mls @ 166.667 mls/hr 04/10/19 11:00 04/10/19 11:38 Vancomycin (Pre-Docked) IVPB 166.667 mls/hr Q12H PALOAM Administration Protocol Insulin Aspart 1 vial 04/07/19 17:08 04/10/19 11:46 Novolog Vial Sliding Scale - SQ Not Given ACHS PALOMA Protocol Insulin Detemir 20 units 04/08/19 08:12 04/09/19 21:20 Levemir Vial SQ 20 units HS PALOMA Administration Levothyroxine Sodium 88 mcg 04/07/19 07:00 04/10/19 06:18 Synthroid - PO 88 mcg AM PALOMA Administration Lisinopril 2.5 mg 04/09/19 10:00 04/10/19 10:35 Prinivil PO 2.5 mg DAILY PALOMA Administration Pantoprazole Sodium 40 mg 04/07/19 10:00 04/10/19 10:35 Protonix - PO 40 mg DAILY PALOMA Administration Polyethylene Glycol 17 gm 04/09/19 12:45 04/10/19 10:36 Miralax (For Daily Use) - PO 17 gm DAILY PALOMA Administration Ranolazine 500 mg 04/06/19 22:00 04/10/19 10:35 Ranexa - PO 500 mg BID PALOMA Administration Impression 1. hyponatremia 2. cellulitis 3. htn 4. chf 5. cad 6. ckd 7. hx cva Plan - hold lolly - repeat labs in am - pt is at risk for SHARIF - can give mucomyst and fluids before procedure - hold lasix on day of procedure
--- NOTE | 2019-04-10 15:34 | PN ---
Progress Note, Physician Chief Complaint: FUV left foot - Current Medication List Current Medications: Active Medications Acetaminophen (Tylenol -) 650 mg PO Q6H PRN PRN Reason: FEVER Last Admin: 04/08/19 02:44 Dose: 650 mg Albuterol/Ipratropium (Duoneb -) 1 amp NEB RQID [facility] Last Admin: 04/10/19 11:10 Dose: 1 amp Aspirin (Asa -) 81 mg PO DAILY [facility] Last Admin: 04/10/19 10:36 Dose: 81 mg Atorvastatin Calcium (Lipitor -) 40 mg PO HS [facility] Last Admin: 04/09/19 21:20 Dose: 40 mg Carvedilol (Coreg -) 12.5 mg PO BID [facility] Last Admin: 04/10/19 10:35 Dose: 12.5 mg Clopidogrel Bisulfate (Plavix -) 75 mg PO DAILY [facility] Last Admin: 04/10/19 10:36 Dose: 75 mg Ezetimibe (Zetia -) 10 mg PO DAILY [facility] Last Admin: 04/10/19 10:35 Dose: 10 mg Furosemide (Lasix -) 20 mg PO DAILY [facility] Last Admin: 04/10/19 10:35 Dose: 20 mg Gabapentin (Neurontin -) 600 mg PO TID [facility] Last Admin: 04/10/19 14:49 Dose: 600 mg Heparin Sodium (Porcine) (Heparin -) 5,000 unit SQ BID [facility] Last Admin: 04/10/19 10:36 Dose: 5,000 unit Vancomycin HCl (Vancomycin (Pre-Docked)) 1,000 mg in 250 mls @ 166.667 mls/hr IVPB Q12H [facility]; Protocol Last Admin: 04/10/19 11:38 Dose: 166.667 mls/hr Insulin Aspart (Novolog Vial Sliding Scale -) 1 vial SQ ACHS [facility]; Protocol Last Admin: 04/10/19 11:46 Dose: Not Given Insulin Detemir (Levemir Vial) 20 units SQ HS [facility] Last Admin: 04/09/19 21:20 Dose: 20 units Levothyroxine Sodium (Synthroid -) 88 mcg PO AM [facility] Last Admin: 04/10/19 06:18 Dose: 88 mcg Lisinopril (Prinivil) 2.5 mg PO DAILY [facility] Last Admin: 04/10/19 10:35 Dose: 2.5 mg Pantoprazole Sodium (Protonix -) 40 mg PO DAILY [facility] Last Admin: 04/10/19 10:35 Dose: 40 mg Polyethylene Glycol (Miralax (For Daily Use) -) 17 gm PO DAILY [facility] Last Admin: 04/10/19 10:36 Dose: 17 gm Ranolazine (Ranexa -) 500 mg PO BID [facility] Last Admin: 04/10/19 10:35 Dose: 500 mg - Objective Vital Signs: Vital Signs Temperature 98.2 F 04/10/19 13:32 Pulse Rate 57 L 04/10/19 13:32 Respiratory Rate 18 04/10/19 13:32 Blood Pressure 93/41 L 04/10/19 13:32 O2 Sat by Pulse Oximetry (%) 96 04/10/19 09:00 Extremities: Yes: Other (improved cellulitis, demarcating left foot,) Labs: CBC, BMP 04/10/19 08:38 04/10/19 08:38 INR, PTT INR 1.11 (0.83-1.09) H 04/06/19 13:20 Assessment/Plan cellulitis 4th toe left wound 4th toe left om pvd Angiogram wednesday at 10am to be done by vascular. Will follow. Betadine swab in between toes left foot daily.
[2019-04-10] MEDS: ATORVASTATIN CA 40 MG TABLET (FP) PO SCH (21:26)
[2019-04-10] MEDS: INSULIN (LEVEMIR) 100 UNITS/ML UNITS SQ SCH (21:29)
[2019-04-10] MEDS: ACETAMINOPHEN 325 MG TABLET (FP) PO PRN (22:17)
[2019-04-11] MEDS ORDERED: DOCUSATE SODIUM 100 MG CAPSULE (FP) PO ONE (05:35)
[2019-04-11] MEDS: GABAPENTIN 300 MG CAPSULE PO SCH ×3 (05:56→22:18)
[2019-04-11] MEDS: INSULIN SLIDING SCALE (NOVOLOG) 1 VIAL SQ SCH ×4 (06:07→22:19)
[2019-04-11] MEDS: LEVOTHYROXINE NA 88 MCG TABLET (FP) PO SCH (06:08)
--- NOTE | 2019-04-11 08:13 | PN ---
Progress Note, Physician Chief Complaint: No complaints offered via daughters translation History of Present Illness: Patient is an 83 year old female with a significant past medical history of hypertension, diabetes 2, hld, CHF, GERD, neuropathy, chronic diffuse pain, hypothyroidism, chronic L great toe osteomyelitis, S/P CABG (coronary artery bypass graft)and NSTEMI. Patient presents from her doctors office for left 4th toe redness with left 4th toe ulcer and redness from this toe that extends up to her anterior left foot. She had a hospitalization 1 year ago for prior gangrene/infection to 1st toe on left foot. No recent injury or falls, no trauma of this foot. foot xray is negative for acute fracture. difficulty swallowing at times, happens at home also. will ask speech and swallow to evaluate. cardiology/renal clearance for angiogram - Current Medication List Current Medications: Active Medications Acetaminophen (Tylenol -) 650 mg PO Q6H PRN PRN Reason: FEVER Last Admin: 04/10/19 22:17 Dose: 650 mg Albuterol/Ipratropium (Duoneb -) 1 amp NEB RQID [facility] Last Admin: 04/10/19 20:00 Dose: 1 amp Aspirin (Asa -) 81 mg PO DAILY [facility] Last Admin: 04/10/19 10:36 Dose: 81 mg Atorvastatin Calcium (Lipitor -) 40 mg PO HS [facility] Last Admin: 04/10/19 21:26 Dose: 40 mg Carvedilol (Coreg -) 12.5 mg PO BID [facility] Last Admin: 04/10/19 21:26 Dose: 12.5 mg Clopidogrel Bisulfate (Plavix -) 75 mg PO DAILY [facility] Last Admin: 04/10/19 10:36 Dose: 75 mg Ezetimibe (Zetia -) 10 mg PO DAILY [facility] Last Admin: 04/10/19 10:35 Dose: 10 mg Furosemide (Lasix -) 20 mg PO DAILY [facility] Last Admin: 04/10/19 10:35 Dose: 20 mg Gabapentin (Neurontin -) 600 mg PO TID [facility] Last Admin: 04/11/19 05:56 Dose: 600 mg Heparin Sodium (Porcine) (Heparin -) 5,000 unit SQ BID [facility] Last Admin: 04/10/19 21:26 Dose: 5,000 unit Vancomycin HCl (Vancomycin (Pre-Docked)) 1,000 mg in 250 mls @ 166.667 mls/hr IVPB Q12H [facility]; Protocol Last Admin: 04/10/19 22:18 Dose: 166.667 mls/hr Insulin Aspart (Novolog Vial Sliding Scale -) 1 vial SQ ACHS [facility]; Protocol Last Admin: 04/11/19 06:07 Dose: Not Given Insulin Detemir (Levemir Vial) 20 units SQ HS [facility] Last Admin: 04/10/19 21:29 Dose: 20 units Levothyroxine Sodium (Synthroid -) 88 mcg PO AM [facility] Last Admin: 04/11/19 06:08 Dose: 88 mcg Pantoprazole Sodium (Protonix -) 40 mg PO DAILY [facility] Last Admin: 04/10/19 10:35 Dose: 40 mg Polyethylene Glycol (Miralax (For Daily Use) -) 17 gm PO DAILY [facility] Last Admin: 04/10/19 10:36 Dose: 17 gm Ranolazine (Ranexa -) 500 mg PO BID [facility] Last Admin: 04/10/19 21:25 Dose: 500 mg - Objective Vital Signs: Vital Signs Temperature 98.0 F 04/11/19 06:00 Pulse Rate 62 04/11/19 06:00 Respiratory Rate 20 04/11/19 06:00 Blood Pressure 111/52 L 04/11/19 06:00 O2 Sat by Pulse Oximetry (%) 96 04/10/19 21:00 Extremities: Yes: Other (cellulitis 4th toe left wound 4th toe left) Additional Findings/Remarks: GENERAL: Awake, alert, and fully oriented HEAD: Normal with no signs of trauma. EYES: Pupils equal, round and reactive to light, extraocular movements intact, sclera anicteric, conjunctiva clear. No lid lag. EARS, NOSE, THROAT: Ears normal, nares patent, oropharynx clear without exudates. Moist mucous membranes. NECK: Normal range of motion, supple without lymphadenopathy, JVD, or masses. LUNGS: accessory muscle use, left lung congestion, given lasix 40 and 2 liters placed. HEART: Regular rate and rhythm ABDOMEN: Soft, nontender, obese abdomen MUSCULOSKELETAL: Normal range of motion at all joints. No bony deformities or tenderness. No CVA tenderness. UPPER EXTREMITIES: 2+ pulses, warm, well-perfused. No cyanosis. No clubbing. No peripheral edema. LOWER EXTREMITIES: left foot left foot appears erythematous from 4th toe to the anterior of foot. left great toe with small ulcer that is drainage clear fluid. cultured in the Ed. 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 via director case management Labs: CBC, BMP 04/10/19 08:38 04/10/19 08:38 INR, PTT INR 1.11 (0.83-1.09) H 04/06/19 13:20 - ....Imaging X-ray: Report Reviewed (left foot xray: negative for fracture) MRI: Report Reviewed (imaging: MRI: left foot osteo vs stress fracture.) Problem List - Problems (1) HAROLDO (acute kidney injury) Assessment/Plan: Cr 1.2, baseline appreciate nephrology consultation cont to hold lolly daily Cr avoid nephrotoxic agents plan for Angio tmrw of LE IVF overnight with mucomyst protection hold lasix tmrw Code(s): N17.9 - ACUTE KIDNEY FAILURE, UNSPECIFIED (2) Cellulitis Assessment/Plan: cellulitis 4th toe left/wound 4th toe left appreciate vasc colsultation Angiogram wednesday at 10am Betadine swab in between toes left foot daily. Code(s): L03.90 - CELLULITIS, UNSPECIFIED (3) Prophylactic measure Assessment/Plan: FEN NPO past MN, IVF resume renal diet after angio monitor electrolyres, cr DVT heparin sq Dispo maintain as inpatient full code discharge planning Code(s): Z29.9 - ENCOUNTER FOR PROPHYLACTIC MEASURES, UNSPECIFIED (4) S/P CABG (coronary artery bypass graft) Assessment/Plan: c/w asa, statin, plavix Code(s): Z95.1 - PRESENCE OF AORTOCORONARY BYPASS GRAFT (5) Type 2 diabetes mellitus Assessment/Plan: BGM AC/HS with novolog coverage c/w levemir Code(s): E11.9 - TYPE 2 DIABETES MELLITUS WITHOUT COMPLICATIONS Qualifiers: Diabetes mellitus residential insulin use: unspecified superintendent marine oil terminal insulin use status Diabetes mellitus complication status: with neurologic complications Diabetes mellitus complication detail: with polyneuropathy Qualified Code(s): E11.42 - Type 2 diabetes mellitus with diabetic polyneuropathy (6) COPD (chronic obstructive pulmonary disease) Assessment/Plan: duo nebs prn IS Code(s): J44.9 - CHRONIC OBSTRUCTIVE PULMONARY DISEASE, UNSPECIFIED (7) CAD (coronary artery disease) Code(s): I25.10 - ATHSCL HEART DISEASE OF [place] CORONARY ARTERY W/O ANG PCTRS Qualifiers: Coronary Disease-Associated Artery/Lesion type: [place] artery [place] vs. transplanted heart: [place] heart Associated angina: with unstable angina Qualified Code(s): I25.110 - Atherosclerotic heart disease of [place] coronary artery with unstable angina pectoris (8) CHF (congestive heart failure) Assessment/Plan: no additional fluids need until NPO holding lasix for angio in am monitor I/O daily weights Code(s): I50.9 - HEART FAILURE, UNSPECIFIED Qualifiers: Heart failure type: unspecified Heart failure chronicity: acute on chronic Qualified Code(s): I50.9 - Heart failure, unspecified (9) Xjsly-[id number] kidney injury Assessment/Plan: see above Code(s): N17.9 - ACUTE KIDNEY FAILURE, UNSPECIFIED; N18.9 - CHRONIC KIDNEY DISEASE, UNSPECIFIED Qualifiers: Chronic kidney disease stage: stage 3 (moderate) Visit type - Emergency Visit Emergency Visit: Yes ED Registration Date: 04/06/19 Care time: The patient presented to the Emergency Department on the above date and was hospitalized for further evaluation of their emergent condition. - New Patient This patient is new to me today: Yes Date on this admission: 04/11/19 - Critical Care Critical Care patient: No - Discharge Referral Referred to [facility] Med P.C.: No
[2019-04-11] MEDS: ALBUTEROL SO4 2.5/IPRATROPIUM 0.5 INH SOL 3 ML VIAL.NEB. NEB SCH ×4 (09:07→22:02)
--- NOTE | 2019-04-11 09:08 | SPA.PREOP ---
- PRE-OP NOTE Dx: Ischemic appearing foot and wound of left foot Planned Procedure: LLE Angio, possible angioplasty, possible stent Surgeon: Pravin Lance Last Vital Signs Temp Pulse Resp BP Pulse Ox 98.0 F 62 20 111/52 L 96 04/11/19 06:00 04/11/19 06:00 04/11/19 06:00 04/11/19 06:00 04/10/19 21:00 Lab Results WBC 9.4 K/mm3 (4.0-10.0) 04/10/19 08:38 RBC 2.76 M/mm3 (3.60-5.2) L 04/10/19 08:38 Hgb 8.5 GM/dL (10.7-15.3) L 04/10/19 08:38 Hct 25.3 % (32.4-45.2) L 04/10/19 08:38 MCV 91.5 fl (80-96) 04/10/19 08:38 MCHC 33.6 g/dl (32.0-36.0) 04/10/19 08:38 RDW 13.9 % (11.6-15.6) 04/10/19 08:38 Plt Count 222 K/MM3 (134-434) 04/10/19 08:38 Sodium 130 mmol/L (136-145) L 04/10/19 08:38 Potassium 4.4 mmol/L (3.5-5.1) 04/10/19 08:38 Chloride 96 mmol/L (98-107) L 04/10/19 08:38 Carbon Dioxide 28 mmol/L (21-32) 04/10/19 08:38 Anion Gap 6 MMOL/L (8-16) L 04/10/19 08:38 BUN 33.6 mg/dL (7-18) H 04/10/19 08:38 Creatinine 1.5 mg/dL (0.55-1.3) H 04/10/19 08:38 Random Glucose 121 mg/dL (74-106) H 04/10/19 08:38 Calcium 8.1 mg/dL (8.5-10.1) L 04/10/19 08:38 INR 1.11 (0.83-1.09) H 04/06/19 13:20 - ASSESSMENT/PLAN 1. Make NPO after midnight except PO meds 2. GI/DVT PPX 3. Medical optimization / clearance 4. Per Renal: - hold PRATIBHA - Mucomyst and fluids before procedure - hold lasix on day of procedure 5. f/u BUN/Cr in AM 6. Consent to be obtained by surgeon after risks, benefits and alternatives discussed with patient and or Health Care Proxy. Problem List - Problems (1) Diabetic ulcer of toe associated with diabetes mellitus due to underlying condition Code(s): E08.621 - DIABETES MELLITUS DUE TO UNDERLYING CONDITION W FOOT ULCER; L97.509 - NON-PRESSURE CHRONIC ULCER OTH PRT UNSP FOOT W UNSP SEVERITY Qualifiers: Laterality: left Non-pressure ulcer stage: unspecified non-pressure ulcer stage Qualified Code(s): E08.621 - Diabetes mellitus due to underlying condition with foot ulcer; L97.529 - Non-pressure chronic ulcer of other part of left foot with unspecified severity (2) HAROLDO (acute kidney injury) Code(s): N17.9 - ACUTE KIDNEY FAILURE, UNSPECIFIED (3) PAD (peripheral artery disease) Code(s): I73.9 - PERIPHERAL VASCULAR DISEASE, UNSPECIFIED (4) Type 2 diabetes mellitus Code(s): E11.9 - TYPE 2 DIABETES MELLITUS WITHOUT COMPLICATIONS Qualifiers: Diabetes mellitus intermediate insulin use: unspecified continuous churn buttermaker insulin use status Diabetes mellitus complication status: with neurologic complications Diabetes mellitus complication detail: with polyneuropathy Qualified Code(s): E11.42 - Type 2 diabetes mellitus with diabetic polyneuropathy (5) COPD (chronic obstructive pulmonary disease) Code(s): J44.9 - CHRONIC OBSTRUCTIVE PULMONARY DISEASE, UNSPECIFIED Visit type - Case Type Case Type: ED Admission - New patient This patient is new to me today: Yes Date on this admission: 04/11/19
--- NOTE | 2019-04-11 10:27 | PN ---
Progress Note, Physician Chief Complaint: Events noted Not in distress History of Present Illness: Patient was seen and examined. Awake and alert. Chart was reviewed Denies chest pain, SOB or palpitations - Current Medication List Current Medications: Active Medications Acetaminophen (Tylenol -) 650 mg PO Q6H PRN PRN Reason: FEVER Last Admin: 04/10/19 22:17 Dose: 650 mg Albuterol/Ipratropium (Duoneb -) 1 amp NEB RQID [facility] Last Admin: 04/11/19 09:07 Dose: 1 amp Aspirin (Asa -) 81 mg PO DAILY [facility] Last Admin: 04/10/19 10:36 Dose: 81 mg Atorvastatin Calcium (Lipitor -) 40 mg PO HS [facility] Last Admin: 04/10/19 21:26 Dose: 40 mg Carvedilol (Coreg -) 12.5 mg PO BID [facility] Last Admin: 04/10/19 21:26 Dose: 12.5 mg Clopidogrel Bisulfate (Plavix -) 75 mg PO DAILY [facility] Last Admin: 04/10/19 10:36 Dose: 75 mg Ezetimibe (Zetia -) 10 mg PO DAILY [facility] Last Admin: 04/10/19 10:35 Dose: 10 mg Furosemide (Lasix -) 20 mg PO DAILY [facility] Last Admin: 04/10/19 10:35 Dose: 20 mg Gabapentin (Neurontin -) 600 mg PO TID [facility] Last Admin: 04/11/19 05:56 Dose: 600 mg Heparin Sodium (Porcine) (Heparin -) 5,000 unit SQ BID [facility] Last Admin: 04/10/19 21:26 Dose: 5,000 unit Vancomycin HCl (Vancomycin (Pre-Docked)) 1,000 mg in 250 mls @ 166.667 mls/hr IVPB Q12H [facility]; Protocol Last Admin: 04/10/19 22:18 Dose: 166.667 mls/hr Insulin Aspart (Novolog Vial Sliding Scale -) 1 vial SQ ACHS [facility]; Protocol Last Admin: 04/11/19 06:07 Dose: Not Given Insulin Detemir (Levemir Vial) 20 units SQ HS [facility] Last Admin: 04/10/19 21:29 Dose: 20 units Levothyroxine Sodium (Synthroid -) 88 mcg PO AM [facility] Last Admin: 04/11/19 06:08 Dose: 88 mcg Pantoprazole Sodium (Protonix -) 40 mg PO DAILY [facility] Last Admin: 04/10/19 10:35 Dose: 40 mg Polyethylene Glycol (Miralax (For Daily Use) -) 17 gm PO DAILY [facility] Last Admin: 04/10/19 10:36 Dose: 17 gm Ranolazine (Ranexa -) 500 mg PO BID [facility] Last Admin: 04/10/19 21:25 Dose: 500 mg - Objective Vital Signs: Vital Signs Temperature 98.0 F 04/11/19 06:00 Pulse Rate 62 04/11/19 06:00 Respiratory Rate 20 04/11/19 06:00 Blood Pressure 111/52 L 04/11/19 06:00 O2 Sat by Pulse Oximetry (%) 96 04/10/19 21:00 Eyes: Yes: PERRL HENT: Yes: Atraumatic Neck: Yes: Supple Cardiovascular: Yes: Regular Rate and Rhythm, S1, S2 Respiratory: Yes: CTA Bilaterally Gastrointestinal: Yes: Normal Bowel Sounds, Soft, Abdomen, Obese. No: Tenderness Edema: No Labs: CBC, BMP 04/10/19 08:38 04/10/19 08:38 Problem List - Problems (1) Acute on chronic systolic (congestive) heart failure Code(s): I50.23 - ACUTE ON CHRONIC SYSTOLIC (CONGESTIVE) HEART FAILURE (2) Anemia Code(s): D64.9 - ANEMIA, UNSPECIFIED (3) Cellulitis Code(s): L03.90 - CELLULITIS, UNSPECIFIED (4) Osteomyelitis Code(s): M86.9 - OSTEOMYELITIS, UNSPECIFIED (5) PAD (peripheral artery disease) Code(s): I73.9 - PERIPHERAL VASCULAR DISEASE, UNSPECIFIED (6) S/P CABG (coronary artery bypass graft) Code(s): Z95.1 - PRESENCE OF AORTOCORONARY BYPASS GRAFT (7) Type 2 diabetes mellitus Code(s): E11.9 - TYPE 2 DIABETES MELLITUS WITHOUT COMPLICATIONS Qualifiers: Diabetes mellitus correction insulin use: unspecified roasterman insulin use status Diabetes mellitus complication status: with neurologic complications Diabetes mellitus complication detail: with polyneuropathy Qualified Code(s): E11.42 - Type 2 diabetes mellitus with diabetic polyneuropathy (8) COPD (chronic obstructive pulmonary disease) Code(s): J44.9 - CHRONIC OBSTRUCTIVE PULMONARY DISEASE, UNSPECIFIED (9) CAD (coronary artery disease) Code(s): I25.10 - ATHSCL HEART DISEASE OF [place] CORONARY ARTERY W/O ANG PCTRS Qualifiers: Coronary Disease-Associated Artery/Lesion type: [place] artery [place] vs. transplanted heart: [place] heart Associated angina: with unstable angina Qualified Code(s): I25.110 - Atherosclerotic heart disease of [place] coronary artery with unstable angina pectoris (10) CKD (chronic kidney disease) stage 3, GFR 30-59 ml/min Code(s): N18.3 - CHRONIC KIDNEY DISEASE, STAGE 3 (MODERATE) (11) Hyperlipidemia Code(s): E78.5 - HYPERLIPIDEMIA, UNSPECIFIED Qualifiers: Hyperlipidemia type: pure hypercholesterolemia Qualified Code(s): E78.00 - Pure hypercholesterolemia, unspecified; E78.0 - Pure hypercholesterolemia (12) Hypertension Code(s): I10 - ESSENTIAL (PRIMARY) HYPERTENSION (13) Hypothyroidism Code(s): E03.9 - HYPOTHYROIDISM, UNSPECIFIED Qualifiers: Hypothyroidism type: unspecified Qualified Code(s): E03.9 - Hypothyroidism , unspecified Assessment/Plan 1. Acute on chronic LV systolic failure 2. Pulmonary HTN 3. Cellulitis 4. T2DM 5. CAD s/p CABG, angina pectoris 6. PAD 7. Anemia 8. Hypothyroidism PLAN: 1. Continue current medical therapy including diuretics and monitor renal function and electrolytes 2. Continue Carvedilol 12.5 mg BID, Lipitor 40 mg QHS, Zetia 10 mg QD and Ranexa 500 mg BID as tolerated 3. Continue ASA 81 mg QD and Plavix 75 mg QD 4. Antibiotic coverage and wound care Sim Mcknight MD
--- NOTE | 2019-04-11 10:45 | PN ---
Progress Note (short form) - Note Progress Note: PULMONARY For angiogram tomorrow. +nonproductive cough. Vital Signs Period Temp Pulse Resp BP Sys/Ibarra Pulse Ox Last 24 Hr 97.6 F-98.2 F 56-64 18-20 93-140/41-67 96 Gen: NAD at rest Heart: RRR Lung: decreased breath sounds at the bases Abd: soft, nontender Ext: no edema CBC, BMP 04/10/19 08:38 04/10/19 08:38 Active Medications Acetaminophen (Tylenol -) 650 mg PO Q6H PRN PRN Reason: FEVER Last Admin: 04/10/19 22:17 Dose: 650 mg Albuterol/Ipratropium (Duoneb -) 1 amp NEB RQID [facility] Last Admin: 04/11/19 09:07 Dose: 1 amp Aspirin (Asa -) 81 mg PO DAILY [facility] Last Admin: 04/10/19 10:36 Dose: 81 mg Atorvastatin Calcium (Lipitor -) 40 mg PO HS [facility] Last Admin: 04/10/19 21:26 Dose: 40 mg Carvedilol (Coreg -) 12.5 mg PO BID [facility] Last Admin: 04/10/19 21:26 Dose: 12.5 mg Clopidogrel Bisulfate (Plavix -) 75 mg PO DAILY [facility] Last Admin: 04/10/19 10:36 Dose: 75 mg Ezetimibe (Zetia -) 10 mg PO DAILY [facility] Last Admin: 04/10/19 10:35 Dose: 10 mg Furosemide (Lasix -) 20 mg PO DAILY [facility] Last Admin: 04/10/19 10:35 Dose: 20 mg Gabapentin (Neurontin -) 600 mg PO TID [facility] Last Admin: 04/11/19 05:56 Dose: 600 mg Heparin Sodium (Porcine) (Heparin -) 5,000 unit SQ BID [facility] Last Admin: 04/10/19 21:26 Dose: 5,000 unit Vancomycin HCl (Vancomycin (Pre-Docked)) 1,000 mg in 250 mls @ 166.667 mls/hr IVPB Q12H [facility]; Protocol Last Admin: 04/10/19 22:18 Dose: 166.667 mls/hr Insulin Aspart (Novolog Vial Sliding Scale -) 1 vial SQ ACHS [facility]; Protocol Last Admin: 04/11/19 06:07 Dose: Not Given Insulin Detemir (Levemir Vial) 20 units SQ HS [facility] Last Admin: 04/10/19 21:29 Dose: 20 units Levothyroxine Sodium (Synthroid -) 88 mcg PO AM [facility] Last Admin: 04/11/19 06:08 Dose: 88 mcg Pantoprazole Sodium (Protonix -) 40 mg PO DAILY [facility] Last Admin: 04/10/19 10:35 Dose: 40 mg Polyethylene Glycol (Miralax (For Daily Use) -) 17 gm PO DAILY [facility] Last Admin: 04/10/19 10:36 Dose: 17 gm Ranolazine (Ranexa -) 500 mg PO BID [facility] Last Admin: 04/10/19 21:25 Dose: 500 mg A/P Acute on Chronic Systolic Heart Failure CAD s/p CABG Pulmonary HTN Acute on Chronic Renal Failure HTN DM PAD L Toe Osteomyelitis Hypothyroidism Anemia Hyponatremia - antibiotics per ID - for OR in AM - monitor lytes - monitor urine output, creatinine - daily weights - O2 to keep SpO2 >905 - DVT prophylaxis
[2019-04-11] MEDS: EZETIMIBE 10 MG TABLET (FP) PO SCH (10:54)
[2019-04-11] MEDS: PANTOPRAZOLE 40 MG TABLET PO SCH (10:54)
[2019-04-11] MEDS: ASPIRIN 81 MG CHEWABLE TABLETS PO SCH (10:54)
[2019-04-11] MEDS: CLOPIDOGREL BISULFATE 75 MG TABLET (FP) PO SCH (10:54)
[2019-04-11] MEDS: CARVEDILOL 12.5 MG TABLET (FP) PO SCH ×2 (10:54→22:18)
[2019-04-11] MEDS: RANOLAZINE E.R. 500 MG TABLET (FP) PO SCH ×2 (10:54→22:19)
[2019-04-11] MEDS: FUROSEMIDE 20 MG TABLET (FP) PO SCH (10:54)
[2019-04-11] MEDS: POLYETHYLENE GLYCOL 3350 119 GM BTL PO SCH (10:55)
[2019-04-11] MEDS: HEPARIN NA (PORCINE) 5,000 UNITS/ML 1ML VIAL SQ SCH ×2 (10:55→22:18)
[2019-04-11] MEDS: VANCOMYCIN 1 GRAM (PRE-DOCKED) 1,000 MG/250 ML BAG IVPB SCH ×2 (12:17→22:19)
--- NOTE | 2019-04-11 12:17 | ECHO ---
Version: 1 Name: LISSETTE RYDER Exam: Adult Echocardiogram Study Date: 04/11/2019, 8:32 AM Age: 83 Years MMode/2D Measurements & Calculations IVSd: 1.07 cm LVIDs: 2.6 cm LVIDd: 3.3 cm LVPWd: 1.20 cm ACS: 1.25 cm Ao root diam: 2.34 cm LVOT diam: 1.89 cm LA dimension: 3.7 cm Doppler Measurements & Calculations MV E max angel: 144.0 cm/sec Med E/e': 44.8 MV A max angel: 77.5 cm/sec Med Peak E' Angel: 3.2 cm/sec MV E/A: 1.86 Lat E/e': 23.1 Lat Peak E' Angel: 6.2 cm/sec MR max P.1 mmHg Ao max P.3 mmHg SUMANTH(I,D): 1.29 cm Ao mean P.0 mmHg LV V1 mean: 49.1 cm/sec Ao V2 max: 144.5 cm/sec LV V1 mean P.02 mmHg PI end-d angel: 41.7 cm/sec TR max angel: 292.7 cm/sec TR max P.3 mmHg Procedure The study was technically limited with all images being suboptimal in quality. Left Ventricle The left ventricle is normal in size. Ejection Fraction = 35%. Diastolic dysfunction, Grade III (res trictive pattern), consistent with markedly increased left atrial pressure. Large region of severe apical hyp okinesis. There is septal akinesis. Right Ventricle The right ventricle is normal in size and function. Atria Normal left and right atrial size and function. Mitral Valve There is moderate mitral annular calcification. There is trace mitral regurgitation. Tricuspid Valve The tricuspid valve is normal in structure and function. There is moderate tricuspid regurgitation. Right ventricular systolic pressure is elevated at 45 mmhg. There is mild pulmonary hypertension. Aortic Valve The aortic valve is normal in structure and function. Pulmonic Valve The pulmonic valve is not well visualized. Great Vessels The aortic root is normal size. Pericardium/Pleura There is no pericardial effusion. Summary Statements The study was technically limited with all images being suboptimal in quality. Segmental wall motion abnormalities as described with moderate LV systolic dysfunction. Diastolic dysfunction, Grade III (restrictive pattern), consistent with markedly increased left atri al pressure. There is moderate tricuspid regurgitation. There is mild pulmonary hypertension. Robb Bullard 04/11/2019, 12:16 PM Ordering Physician: Cristiana Domínguez Performed By: Calli Mansfield
--- NOTE | 2019-04-11 12:29 | PN ---
Progress Note, [employer]EPING [employer] [facility] - Note Progress Note: Selected Entries 04/10/19 04/10/19 04/10/19 06:46 10:25 13:32 Lunch 75% Supper Temperature 98.1 F 97.4 F L 98.2 F 04/10/19 04/10/19 04/11/19 19:33 19:35 06:00 Lunch Supper 75% Temperature 97.6 F 98.0 F 04/11/19 10:00 Lunch Supper Temperature 98.2 F Laboratory Tests 04/10/19 08:38 WBC 9.4 Pt reclines immediately after eating, at home and in hospital. Pt and daughter educated on HOB elevated mealtime and for an hour after.
--- NOTE | 2019-04-11 12:39 | PN ---
Progress Note, Physician History of Present Illness: stable no new issues - Current Medication List Current Medications: Active Medications Acetaminophen (Tylenol -) 650 mg PO Q6H PRN PRN Reason: FEVER Last Admin: 04/10/19 22:17 Dose: 650 mg Albuterol/Ipratropium (Duoneb -) 1 amp NEB RQID ON LICENSE OF [facility] Last Admin: 04/11/19 09:07 Dose: 1 amp Aspirin (Asa -) 81 mg PO DAILY ON LICENSE OF [facility] Last Admin: 04/11/19 10:54 Dose: 81 mg Atorvastatin Calcium (Lipitor -) 40 mg PO HS ON LICENSE OF [facility] Last Admin: 04/10/19 21:26 Dose: 40 mg Carvedilol (Coreg -) 12.5 mg PO BID ON [facility] OF [facility] Last Admin: 04/11/19 10:54 Dose: 12.5 mg Clopidogrel Bisulfate (Plavix -) 75 mg PO DAILY ON [facility] OF [facility] Last Admin: 04/11/19 10:54 Dose: 75 mg Ezetimibe (Zetia -) 10 mg PO DAILY ON [facility] OF [facility] Last Admin: 04/11/19 10:54 Dose: 10 mg Furosemide (Lasix -) 20 mg PO DAILY ON [facility] Last Admin: 04/11/19 10:54 Dose: 20 mg Gabapentin (Neurontin -) 600 mg PO TID ON LICENSE OF [facility] Last Admin: 04/11/19 05:56 Dose: 600 mg Heparin Sodium (Porcine) (Heparin -) 5,000 unit SQ BID ON [facility] OF [facility] Last Admin: 04/11/19 10:55 Dose: 5,000 unit Vancomycin HCl (Vancomycin (Pre-Docked)) 1,000 mg in 250 mls @ 166.667 mls/hr IVPB Q12H ON LICENSE OF [facility]; Protocol Last Admin: 04/11/19 12:17 Dose: 166.667 mls/hr Insulin Aspart (Novolog Vial Sliding Scale -) 1 vial SQ ACHS ON LICENSE OF [facility]; Protocol Last Admin: 04/11/19 11:08 Dose: 4 units Insulin Detemir (Levemir Vial) 20 units SQ HS ON LICENSE OF [facility] Last Admin: 04/10/19 21:29 Dose: 20 units Levothyroxine Sodium (Synthroid -) 88 mcg PO AM ON LICENSE OF [facility] Last Admin: 04/11/19 06:08 Dose: 88 mcg Pantoprazole Sodium (Protonix -) 40 mg PO DAILY ON [facility] OF [facility] Last Admin: 04/11/19 10:54 Dose: 40 mg Polyethylene Glycol (Miralax (For Daily Use) -) 17 gm PO DAILY ON [facility] OF [facility] Last Admin: 04/11/19 10:55 Dose: 17 gm Ranolazine (Ranexa -) 500 mg PO BID ON LICENSE OF [facility] Last Admin: 04/11/19 10:54 Dose: 500 mg - Objective Vital Signs: Vital Signs Temperature 98.2 F 04/11/19 10:00 Pulse Rate 59 L 04/11/19 10:00 Respiratory Rate 20 04/11/19 10:00 Blood Pressure 120/62 04/11/19 10:00 O2 Sat by Pulse Oximetry (%) 96 04/11/19 09:00 Constitutional: Yes: No Distress, Calm Cardiovascular: Yes: S1, S2 Respiratory: Yes: Regular, CTA Bilaterally Gastrointestinal: Yes: Normal Bowel Sounds, Soft Musculoskeletal: Yes: WNL Extremities: Yes: Other Wound/Incision: Yes: Open to air Neurological: Yes: Alert, Oriented Psychiatric: Yes: Alert, Oriented Labs: CBC, BMP 04/10/19 08:38 04/10/19 08:38 INR, PTT INR 1.11 (0.83-1.09) H 04/06/19 13:20 Assessment/Plan Problem List - Problems (1) Cellulitis Code(s): L03.90 - CELLULITIS, UNSPECIFIED (2) S/P CABG (coronary artery bypass graft) Code(s): Z95.1 - PRESENCE OF AORTOCORONARY BYPASS GRAFT (3) Type 2 diabetes mellitus Code(s): E11.9 - TYPE 2 DIABETES MELLITUS WITHOUT COMPLICATIONS Qualifiers: Diabetes mellitus terminal supervisor insulin use: unspecified terminal supervisor insulin use status Diabetes mellitus complication status: with neurologic complications Diabetes mellitus complication detail: with polyneuropathy Qualified Code(s): E11.42 - Type 2 diabetes mellitus with diabetic polyneuropathy (4) COPD (chronic obstructive pulmonary disease) Assessment/Plan: cookie prn Code(s): J44.9 - CHRONIC OBSTRUCTIVE PULMONARY DISEASE, UNSPECIFIED (5) CAD (coronary artery disease) Code(s): I25.10 - ATHSCL HEART DISEASE OF [place] CORONARY ARTERY W/O ANG PCTRS Qualifiers: Coronary Disease-Associated Artery/Lesion type: [place] artery [place] vs. transplanted heart: [place] heart Associated angina: with unstable angina Qualified Code(s): I25.110 - Atherosclerotic heart disease of [place] coronary artery with unstable angina pectoris (6) CHF (congestive heart failure) Code(s): I50.9 - HEART FAILURE, UNSPECIFIED Qualifiers: Heart failure type: unspecified Heart failure chronicity: acute on chronic Qualified Code(s): I50.9 - Heart failure, unspecified (7) CKD (chronic kidney disease) stage 3, GFR 30-59 ml/min Code(s): N18.3 - CHRONIC KIDNEY DISEASE, STAGE 3 (MODERATE) (8) Prophylactic measure Code(s): Z29.9 - ENCOUNTER FOR PROPHYLACTIC MEASURES, UNSPECIFIED plan cx result noted continue vanco vascular plan noted rest as per the team
[2019-04-11 14:06] LABS: BASO % 0.8 % (0-2.0); EOS % 4.8 % (0-4.5); HEMATOCRIT 27.9 % (32.4-45.2); HEMOGLOBIN 9.2 GM/dL (10.7-15.3); LYMPH % 27.1 % (8-40); MCH 29.9 pg (25.7-33.7); MEAN CELL VOLUME 90.6 fl (80-96); MEAN PLT VOLUME 8.6 fl (7.5-11.1); MONO % 9.3 % (3.8-10.2); PLATELET COUNT 264 K/MM3 (134-434); RBC 3.08 M/mm3 (3.60-5.2); RDW 13.6 % (11.6-15.6); WHITE BLOOD COUNT 7.8 K/mm3 (4.0-10.0)
[2019-04-11 14:32] LABS: ALBUMIN 2.8 g/dl (3.4-5.0); BILIRUBIN,TOTAL 0.5 mg/dL (0.2-1); CALCIUM 8.7 mg/dL (8.5-10.1); CREATININE 1.2 mg/dL (0.55-1.3); MAGNESIUM 2.4 mg/dL (1.8-2.4); POTASSIUM 4.8 mmol/L (3.5-5.1); TOT PROT 6.7 g/dl (6.4-8.2)
--- NOTE | 2019-04-11 17:02 | PN ---
Progress Note, Physician History of Present Illness: Pt seen and examined at bedside. She is awake and alert. She denies shortness of breath. - Current Medication List Current Medications: Active Medications Acetaminophen (Tylenol -) 650 mg PO Q6H PRN PRN Reason: FEVER Last Admin: 04/10/19 22:17 Dose: 650 mg Acetylcysteine (Mucomyst 20 Oral / Inh Use Only*) 600 mg PO Q12H [facility] Stop: 04/13/19 15:59 Albuterol/Ipratropium (Duoneb -) 1 amp NEB RQID [facility] Last Admin: 04/11/19 16:03 Dose: 1 amp Aspirin (Asa -) 81 mg PO DAILY [facility] Last Admin: 04/11/19 10:54 Dose: 81 mg Atorvastatin Calcium (Lipitor -) 40 mg PO HS [facility] Last Admin: 04/10/19 21:26 Dose: 40 mg Carvedilol (Coreg -) 12.5 mg PO BID [facility] Last Admin: 04/11/19 10:54 Dose: 12.5 mg Clopidogrel Bisulfate (Plavix -) 75 mg PO DAILY [facility] Last Admin: 04/11/19 10:54 Dose: 75 mg Ezetimibe (Zetia -) 10 mg PO DAILY [facility] Last Admin: 04/11/19 10:54 Dose: 10 mg Furosemide (Lasix -) 20 mg PO DAILY [facility] Last Admin: 04/11/19 10:54 Dose: 20 mg Gabapentin (Neurontin -) 600 mg PO TID [facility] Last Admin: 04/11/19 14:38 Dose: 600 mg Heparin Sodium (Porcine) (Heparin -) 5,000 unit SQ BID [facility] Last Admin: 04/11/19 10:55 Dose: 5,000 unit Vancomycin HCl (Vancomycin (Pre-Docked)) 1,000 mg in 250 mls @ 166.667 mls/hr IVPB Q12H [facility]; Protocol Last Admin: 04/11/19 12:17 Dose: 166.667 mls/hr Sodium Chloride (Normal Saline -) 1,000 mls @ 100 mls/hr IV ASDIR [facility] Insulin Aspart (Novolog Vial Sliding Scale -) 1 vial SQ ACHS [facility]; Protocol Last Admin: 04/11/19 16:45 Dose: 4 units Insulin Detemir (Levemir Vial) 20 units SQ HS [facility] Last Admin: 11/18/19 21:29 Dose: 20 units Levothyroxine Sodium (Synthroid -) 88 mcg PO AM [facility] Last Admin: 04/11/19 06:08 Dose: 88 mcg Pantoprazole Sodium (Protonix -) 40 mg PO DAILY [facility] Last Admin: 04/11/19 10:54 Dose: 40 mg Polyethylene Glycol (Miralax (For Daily Use) -) 17 gm PO DAILY [facility] Last Admin: 04/11/19 10:55 Dose: 17 gm Ranolazine (Ranexa -) 500 mg PO BID [facility] Last Admin: 04/11/19 10:54 Dose: 500 mg - Objective Vital Signs: Vital Signs Temperature 98.4 F 04/11/19 13:29 Pulse Rate 52 L 04/11/19 13:29 Respiratory Rate 20 04/11/19 13:29 Blood Pressure 144/68 04/11/19 13:29 O2 Sat by Pulse Oximetry (%) 96 04/11/19 09:00 Constitutional: Yes: Calm Eyes: Yes: Conjunctiva Clear HENT: Yes: Atraumatic Cardiovascular: Yes: S1, S2 Respiratory: Yes: On Nasal O2 Gastrointestinal: Yes: Soft Genitourinary: Yes: WNL Musculoskeletal: Yes: WNL Edema: No Neurological: Yes: Oriented Psychiatric: Yes: Oriented Labs: CBC, BMP 04/11/19 13:19 04/11/19 13:19 INR, PTT INR 1.11 (0.83-1.09) H 04/06/19 13:20 Problem List - Problems (1) HAROLDO (acute kidney injury) Code(s): N17.9 - ACUTE KIDNEY FAILURE, UNSPECIFIED (2) Acute on chronic systolic (congestive) heart failure Code(s): I50.23 - ACUTE ON CHRONIC SYSTOLIC (CONGESTIVE) HEART FAILURE (3) Anemia Code(s): D64.9 - ANEMIA, UNSPECIFIED (4) Cellulitis Code(s): L03.90 - CELLULITIS, UNSPECIFIED Assessment/Plan Current Medications Generic Name Dose Route Start Last Admin Trade Name Freq PRN Reason Stop Dose Admin Acetaminophen 650 mg 04/06/19 17:25 04/10/19 22:17 Tylenol - PO 650 mg Q6H PRN Administration FEVER Acetylcysteine 600 mg 04/11/19 16:00 Mucomyst 20 Oral / Inh Use Only* PO 04/13/19 15:59 Q12H [facility] Albuterol/Ipratropium 1 amp 04/08/19 12:00 04/11/19 16:03 Duoneb - NEB 1 amp RQID [facility] Administration Aspirin 81 mg 04/07/19 10:00 04/11/19 10:54 Asa - PO 81 mg DAILY [facility] Administration Atorvastatin Calcium 40 mg 04/06/19 22:00 04/10/19 21:26 Lipitor - PO 40 mg HS [facility] Administration Carvedilol 12.5 mg 04/06/19 22:00 04/11/19 10:54 Coreg - PO 12.5 mg BID [facility] Administration Clopidogrel Bisulfate 75 mg 04/07/19 10:00 04/11/19 10:54 Plavix - PO 75 mg DAILY [facility] Administration Ezetimibe 10 mg 04/07/19 10:00 04/11/19 10:54 Zetia - PO 10 mg DAILY [facility] Administration Furosemide 20 mg 04/07/19 10:00 04/11/19 10:54 Lasix - PO 20 mg DAILY [facility] Administration Gabapentin 600 mg 04/06/19 22:00 04/11/19 14:38 Neurontin - PO 600 mg TID [facility] Administration Heparin Sodium (Porcine) 5,000 unit 04/06/19 22:00 04/11/19 10:55 Heparin - SQ 5,000 unit BID [facility] Administration Vancomycin HCl 1,000 mg in 250 mls @ 166.667 mls/hr 04/10/19 11:00 04/11/19 12:17 Vancomycin (Pre-Docked) IVPB 166.667 mls/hr Q12H [facility] Administration Protocol Sodium Chloride 1,000 mls @ 100 mls/hr 04/12/19 00:01 Normal Saline - IV ASDIR [facility] Insulin Aspart 1 vial 04/07/19 17:08 04/11/19 16:45 Novolog Vial Sliding Scale - SQ 4 units ACHS [facility] Administration Protocol Insulin Detemir 20 units 04/08/19 08:12 04/10/19 21:29 Levemir Vial SQ 20 units HS [facility] Administration Levothyroxine Sodium 88 mcg 04/07/19 07:00 04/11/19 06:08 Synthroid - PO 88 mcg AM [facility] Administration Pantoprazole Sodium 40 mg 04/07/19 10:00 04/11/19 10:54 Protonix - PO 40 mg DAILY [facility] Administration Polyethylene Glycol 17 gm 04/09/19 12:45 04/11/19 10:55 Miralax (For Daily Use) - PO 17 gm DAILY [facility] Administration Ranolazine 500 mg 04/06/19 22:00 04/11/19 10:54 Ranexa - PO 500 mg BID [facility] Administration Impression 1. hyponatremia 2. cellulitis 3. htn 4. chf 5. cad 6. ckd 7. hx cva Plan - renal function is improved - fluids ns at 75 cc for 12 hrs before angio - mucomyst 600 mg po q 12 hrs - hold lasix tomorrow - lolly on hold for now - pt is at risk for SHARIF
[2019-04-11] MEDS: ACETYLCYSTEINE 20% 200MG/ML 4 ML VIAL *FOR ORAL / INH USE ONLY PO SCH (17:35)
[2019-04-11] MEDS ORDERED: MAG HYDROX/AL HYDROX/SIMETH 30 ML UNIT-DOSE CUP PO ONE (20:41)
--- NOTE | 2019-04-11 21:00 | HOSP ---
Subjective - Review of Symptoms Events since last encounter: 83 year old female with a significant past medical history of hypertension, diabetes 2, hld, CHF, GERD, neuropathy, chronic diffuse pain, hypothyroidism, chronic L great toe osteomyelitis, S/P CABG (coronary artery bypass graft)and NSTEMI. Patient presents from her doctors office for left 4th toe redness with left 4th toe ulcer and redness from this toe that extends up to her anterior left foot. She had a hospitalization 1 year ago for prior gangrene/infection to 1st toe on left foot. No recent injury or falls, no trauma of this foot. Patient follow up surgery for Dx: Ischemic appearing foot and wound of left foot , pending LLE Angio, possible angioplasty, possible stent in AM. @ 20: 30 RN microblog for patient c/o chest pain, EKG done at bedside. Upon arrival pateint symptoms resolving, examined complain of epigastric pain no SOB noted. EKG shows no acute changes from prior, no acute s/t changes. Will mylanta 30cc x1 member will be NPO, IVF after 12Am for Angio in AM monitor closely Physical Examination Vital Signs: Vital Signs Temperature 98.4 F 04/11/19 13:29 Pulse Rate 53 L 04/11/19 19:49 Respiratory Rate 20 04/11/19 19:49 Blood Pressure 120/70 04/11/19 19:49 O2 Sat by Pulse Oximetry (%) 96 04/11/19 09:00 Labs: CBC, BMP 04/11/19 13:19 04/11/19 13:19
[2019-04-11] MEDS: ATORVASTATIN CA 40 MG TABLET (FP) PO SCH (22:18)
[2019-04-11] MEDS: INSULIN (LEVEMIR) 100 UNITS/ML UNITS SQ SCH (22:18)
[2019-04-12] MEDS ORDERED: SODIUM CHLORIDE 1,000 ML IV SCH ×2 (00:01)
[2019-04-12] MEDS: LEVOTHYROXINE NA 88 MCG TABLET (FP) PO SCH (06:26)
[2019-04-12] MEDS: GABAPENTIN 300 MG CAPSULE PO SCH ×3 (06:26→22:29)
[2019-04-12] MEDS: INSULIN SLIDING SCALE (NOVOLOG) 1 VIAL SQ SCH ×4 (06:26→22:32)
--- NOTE | 2019-04-12 08:22 | PN ---
Progress Note, Physician Chief Complaint: C/o of dyspepsia/chest discomfort last night Relieved with maalox. No complaints today.Awaiting angiogram History of Present Illness: Patient is an 83 year old female with a significant past medical history of hypertension, diabetes 2, hld, CHF, GERD, neuropathy, chronic diffuse pain, hypothyroidism, chronic L great toe osteomyelitis, S/P CABG (coronary artery bypass graft)and NSTEMI. Patient presents from her doctors office for left 4th toe redness with left 4th toe ulcer and redness from this toe that extends up to her anterior left foot. She had a hospitalization 1 year ago for prior gangrene/infection to 1st toe on left foot. No recent injury or falls, no trauma of this foot. foot xray is negative for acute fracture. difficulty swallowing at times, happens at home also. will ask speech and swallow to evaluate. cardiology/renal clearance for angiogram - Current Medication List Current Medications: Active Medications Acetaminophen (Tylenol -) 650 mg PO Q6H PRN PRN Reason: FEVER Last Admin: 04/10/19 22:17 Dose: 650 mg Acetylcysteine (Mucomyst 20 Oral / Inh Use Only*) 600 mg PO Q12H [facility] Stop: 04/13/19 15:59 Last Admin: 04/11/19 17:35 Dose: 600 mg Albuterol/Ipratropium (Duoneb -) 1 amp NEB RQID [facility] Last Admin: 04/11/19 22:02 Dose: 1 amp Aspirin (Asa -) 81 mg PO DAILY [facility] Last Admin: 04/11/19 10:54 Dose: 81 mg Atorvastatin Calcium (Lipitor -) 40 mg PO HS [facility] Last Admin: 04/11/19 22:18 Dose: 40 mg Carvedilol (Coreg -) 12.5 mg PO BID [facility] Last Admin: 04/11/19 22:18 Dose: 12.5 mg Clopidogrel Bisulfate (Plavix -) 75 mg PO DAILY [facility] Last Admin: 04/11/19 10:54 Dose: 75 mg Ezetimibe (Zetia -) 10 mg PO DAILY [facility] Last Admin: 04/11/19 10:54 Dose: 10 mg Gabapentin (Neurontin -) 600 mg PO TID [facility] Last Admin: 04/12/19 06:26 Dose: 600 mg Heparin Sodium (Porcine) (Heparin -) 5,000 unit SQ BID [facility] Last Admin: 04/11/19 22:18 Dose: 5,000 unit Vancomycin HCl (Vancomycin (Pre-Docked)) 1,000 mg in 250 mls @ 166.667 mls/hr IVPB Q12H [facility]; Protocol Last Admin: 04/11/19 22:19 Dose: 166.667 mls/hr Sodium Chloride (Normal Saline -) 1,000 mls @ 75 mls/hr IV ASDIR [facility] Last Admin: 04/12/19 00:25 Dose: 75 mls/hr Insulin Aspart (Novolog Vial Sliding Scale -) 1 vial SQ ACHS [facility]; Protocol Last Admin: 04/12/19 06:26 Dose: 4 units Insulin Detemir (Levemir Vial) 20 units SQ HS [facility] Last Admin: 04/11/19 22:18 Dose: 20 units Levothyroxine Sodium (Synthroid -) 88 mcg PO AM [facility] Last Admin: 04/12/19 06:26 Dose: 88 mcg Pantoprazole Sodium (Protonix -) 40 mg PO DAILY [facility] Last Admin: 04/11/19 10:54 Dose: 40 mg Polyethylene Glycol (Miralax (For Daily Use) -) 17 gm PO DAILY [facility] Last Admin: 04/11/19 10:55 Dose: 17 gm Ranolazine (Ranexa -) 500 mg PO BID [facility] Last Admin: 04/11/19 22:19 Dose: 500 mg - Objective Vital Signs: Vital Signs Temperature 98.2 F 04/12/19 05:52 Pulse Rate 55 L 04/12/19 05:52 Respiratory Rate 20 04/12/19 05:52 Blood Pressure 146/63 04/12/19 05:52 O2 Sat by Pulse Oximetry (%) 96 04/11/19 21:00 Constitutional: Yes: Well Nourished, No Distress, Calm Eyes: Yes: WNL, Conjunctiva Clear HENT: Yes: WNL, Atraumatic, Normocephalic Neck: Yes: WNL, Supple, Trachea Midline Cardiovascular: Yes: WNL, Regular Rate and Rhythm Respiratory: Yes: WNL, Regular, CTA Bilaterally Gastrointestinal: Yes: WNL, Normal Bowel Sounds, Soft, Abdomen, Obese ...Rectal Exam: Yes: Deferred Genitourinary: Yes: WNL Breast(s): Yes: WNL Musculoskeletal: Yes: WNL, Muscle Weakness Extremities: Yes: WNL Edema: Yes Edema: LLE: Trace, RLE: Trace Peripheral Pulses WNL: No Peripheral Pulses: Left Radial: 2+, Right Radial: 2+, Left Doralis Pedis: 1+, Right Dorsalis Pedis: 2+, Left Femoral: 2+, Right Femoral: 2+ Integumentary: Yes: WNL Neurological: Yes: WNL, Alert, Oriented ...Motor Strength: WNL Psychiatric: Yes: WNL Additional Findings/Remarks: GENERAL: Awake, alert, and fully oriented HEAD: Normal with no signs of trauma. EYES: Pupils equal, round and reactive to light, extraocular movements intact, sclera anicteric, conjunctiva clear. No lid lag. EARS, NOSE, THROAT: Ears normal, nares patent, oropharynx clear without exudates. Moist mucous membranes. NECK: Normal range of motion, supple without lymphadenopathy, JVD, or masses. LUNGS: accessory muscle use, left lung congestion, given lasix 40 and 2 liters placed. HEART: Regular rate and rhythm ABDOMEN: Soft, nontender, obese abdomen MUSCULOSKELETAL: Normal range of motion at all joints. No bony deformities or tenderness. No CVA tenderness. UPPER EXTREMITIES: 2+ pulses, warm, well-perfused. No cyanosis. No clubbing. No peripheral edema. LOWER EXTREMITIES: left foot left foot appears erythematous from 4th toe to the anterior of foot. left great toe with small ulcer that is drainage clear fluid. cultured in the Ed. 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 Code(s): L03.90 - CELLULITIS, UNSPECIFIED (3) Prophylactic measure Assessment/Plan: FEN resume renal diet after angio monitor electrolyres, cr DVT heparin sq Dispo maintain as inpatient full code discharge planning Code(s): Z29.9 - ENCOUNTER FOR PROPHYLACTIC MEASURES, UNSPECIFIED (4) S/P CABG (coronary artery bypass graft) Assessment/Plan: c/w asa, statin, plavix Code(s): Z95.1 - PRESENCE OF AORTOCORONARY BYPASS GRAFT (5) Type 2 diabetes mellitus Assessment/Plan: BGM AC/HS with novolog coverage c/w levemir Code(s): E11.9 - TYPE 2 DIABETES MELLITUS WITHOUT COMPLICATIONS Qualifiers: Diabetes mellitus long-term insulin use: unspecified terminal make up operator insulin use status Diabetes mellitus complication status: with neurologic complications Diabetes mellitus complication detail: with polyneuropathy Qualified Code(s): E11.42 - Type 2 diabetes mellitus with diabetic polyneuropathy (6) COPD (chronic obstructive pulmonary disease) Assessment/Plan: duo nebs prn IS Code(s): J44.9 - CHRONIC OBSTRUCTIVE PULMONARY DISEASE, UNSPECIFIED (7) CAD (coronary artery disease) Assessment/Plan: c/w asa, statin Code(s): I25.10 - ATHSCL HEART DISEASE OF [place] CORONARY ARTERY W/O ANG PCTRS Qualifiers: Coronary Disease-Associated Artery/Lesion type: [place] artery [place] vs. transplanted heart: [place] heart Associated angina: with unstable angina Qualified Code(s): I25.110 - Atherosclerotic heart disease of [place] coronary artery with unstable angina pectoris (8) CHF (congestive heart failure) Assessment/Plan: holding lasix for angio monitor I/O daily weights Problems reviewed: Yes Code(s): I50.9 - HEART FAILURE, UNSPECIFIED Qualifiers: Heart failure type: unspecified Heart failure chronicity: acute on chronic Qualified Code(s): I50.9 - Heart failure, unspecified (9) [id number] kidney injury Assessment/Plan: see above Code(s): N17.9 - ACUTE KIDNEY FAILURE, UNSPECIFIED; N18.9 - CHRONIC KIDNEY DISEASE, UNSPECIFIED Qualifiers: Chronic kidney disease stage: stage 3 (moderate) Visit type - Emergency Visit Emergency Visit: Yes ED Registration Date: 04/06/19 Care time: The patient presented to the Emergency Department on the above date and was hospitalized for further evaluation of their emergent condition. - New Patient This patient is new to me today: No - Critical Care Critical Care patient: No - Discharge Referral Referred to [facility] Med P.C.: No
[2019-04-12 09:17] LABS: BASO % 1.3 % (0-2.0); EOS % 4.7 % (0-4.5); HEMATOCRIT 26.5 % (32.4-45.2); HEMOGLOBIN 8.8 GM/dL (10.7-15.3); LYMPH % 26.4 % (8-40); MCH 30.3 pg (25.7-33.7); MCHC 33.2 g/dl (32.0-36.0); MEAN CELL VOLUME 91.3 fl (80-96); MEAN PLT VOLUME 8.6 fl (7.5-11.1); MONO % 8.2 % (3.8-10.2); NEUT % 59.4 % (42.8-82.8); PLATELET COUNT 289 K/MM3 (134-434); RDW 13.6 % (11.6-15.6); WHITE BLOOD COUNT 7.7 K/mm3 (4.0-10.0)
[2019-04-12] MEDS: ACETYLCYSTEINE 20% 200MG/ML 4 ML VIAL *FOR ORAL / INH USE ONLY PO SCH (09:33)
[2019-04-12] MEDS ORDERED: HEPARIN NA (PORCINE) 5,000 UNITS/ML 1ML VIAL ONE ×2 (09:41→10:54)
[2019-04-12] MEDS ORDERED: LIDOCAINE HCL 1%, 10 MG/ML (20ML VIAL) ONE (09:41)
[2019-04-12 09:55] LABS: ALBUMIN 2.8 g/dl (3.4-5.0); BILIRUBIN,TOTAL 1.3 mg/dL (0.2-1); BLOOD UREA NITROGEN 22.9 mg/dL (7-18); CALCIUM 8.7 mg/dL (8.5-10.1); CREATININE 1.1 mg/dL (0.55-1.3); MAGNESIUM 2.3 mg/dL (1.8-2.4); POTASSIUM 4.8 mmol/L (3.5-5.1); TOT PROT 6.8 g/dl (6.4-8.2)
[2019-04-12] MEDS ORDERED: MIDAZOLAM HCL 2 MG/2 ML SINGLE DOSE VIAL ONE (10:14)
[2019-04-12] MEDS: ALBUTEROL SO4 2.5/IPRATROPIUM 0.5 INH SOL 3 ML VIAL.NEB. NEB SCH ×2 (10:14→13:00)
[2019-04-12] MEDS ORDERED: MAG HYDROX/AL HYDROX/SIMETH -MYLANTA- ORAL SUSPENSION PO PRN ×2 (10:17→12:52)
[2019-04-12] MEDS ORDERED: ceFAZolin SODIUM 1 GM VIAL IVPB ONE (10:23)
--- NOTE | 2019-04-12 11:43 | PN ---
Progress Note, Physician History of Present Illness: stable no new issues going to or - Current Medication List Current Medications: Active Medications Acetaminophen (Tylenol -) 650 mg PO Q6H PRN PRN Reason: FEVER Last Admin: 04/10/19 22:17 Dose: 650 mg Acetylcysteine (Mucomyst 20 Oral / Inh Use Only*) 600 mg PO Q12H [facility] Stop: 04/13/19 15:59 Last Admin: 04/12/19 09:33 Dose: 600 mg Al Hydroxide/Mg Hydroxide (Mylanta Suspension -) 30 ml PO Q6HPO PRN PRN Reason: DYSPEPSIA Albuterol/Ipratropium (Duoneb -) 1 amp NEB RQID [facility] Last Admin: 04/12/19 10:14 Dose: 1 amp Aspirin (Asa -) 81 mg PO DAILY [facility] Last Admin: 04/11/19 10:54 Dose: 81 mg Atorvastatin Calcium (Lipitor -) 40 mg PO HS [facility] Last Admin: 04/11/19 22:18 Dose: 40 mg Carvedilol (Coreg -) 12.5 mg PO BID [facility] Last Admin: 04/11/19 22:18 Dose: 12.5 mg Clopidogrel Bisulfate (Plavix -) 75 mg PO DAILY [facility] Last Admin: 04/11/19 10:54 Dose: 75 mg Ezetimibe (Zetia -) 10 mg PO DAILY [facility] Last Admin: 04/11/19 10:54 Dose: 10 mg Gabapentin (Neurontin -) 600 mg PO TID [facility] Last Admin: 04/12/19 06:26 Dose: 600 mg Heparin Sodium (Porcine) (Heparin -) 5,000 unit SQ BID [facility] Last Admin: 04/11/19 22:18 Dose: 5,000 unit Vancomycin HCl (Vancomycin (Pre-Docked)) 1,000 mg in 250 mls @ 166.667 mls/hr IVPB Q12H [facility]; Protocol Last Admin: 04/11/19 22:19 Dose: 166.667 mls/hr Sodium Chloride (Normal Saline -) 1,000 mls @ 75 mls/hr IV ASDIR [facility] Last Admin: 04/12/19 00:25 Dose: 75 mls/hr Insulin Aspart (Novolog Vial Sliding Scale -) 1 vial SQ ACHS [facility]; Protocol Last Admin: 04/12/19 06:26 Dose: 4 units Insulin Detemir (Levemir Vial) 20 units SQ HS [facility] Last Admin: 04/11/19 22:18 Dose: 20 units Levothyroxine Sodium (Synthroid -) 88 mcg PO AM [facility] Last Admin: 04/12/19 06:26 Dose: 88 mcg Pantoprazole Sodium (Protonix -) 40 mg PO DAILY [facility] Last Admin: 04/11/19 10:54 Dose: 40 mg Polyethylene Glycol (Miralax (For Daily Use) -) 17 gm PO DAILY [facility] Last Admin: 04/11/19 10:55 Dose: 17 gm Ranolazine (Ranexa -) 500 mg PO BID [facility] Last Admin: 04/11/19 22:19 Dose: 500 mg - Objective Vital Signs: Vital Signs Temperature 98.2 F 04/12/19 08:47 Pulse Rate 50 L 04/12/19 08:47 Respiratory Rate 20 04/12/19 09:00 Blood Pressure 130/54 L 04/12/19 08:47 O2 Sat by Pulse Oximetry (%) 96 04/12/19 09:00 Constitutional: Yes: No Distress, Calm Cardiovascular: Yes: S1, S2 Respiratory: Yes: Regular, CTA Bilaterally Gastrointestinal: Yes: Normal Bowel Sounds, Soft Musculoskeletal: Yes: WNL Extremities: Yes: Other Neurological: Yes: Alert Psychiatric: Yes: Alert Labs: CBC, BMP 04/12/19 07:30 04/12/19 07:30 INR, PTT INR 1.11 (0.83-1.09) H 04/06/19 13:20 Assessment/Plan Problem List - Problems (1) Cellulitis Code(s): L03.90 - CELLULITIS, UNSPECIFIED (2) S/P CABG (coronary artery bypass graft) Code(s): Z95.1 - PRESENCE OF AORTOCORONARY BYPASS GRAFT (3) Type 2 diabetes mellitus Code(s): E11.9 - TYPE 2 DIABETES MELLITUS WITHOUT COMPLICATIONS Qualifiers: Diabetes mellitus jail insulin use: unspecified jail insulin use status Diabetes mellitus complication status: with neurologic complications Diabetes mellitus complication detail: with polyneuropathy Qualified Code(s): E11.42 - Type 2 diabetes mellitus with diabetic polyneuropathy (4) COPD (chronic obstructive pulmonary disease) Assessment/Plan: cookie prn Code(s): J44.9 - CHRONIC OBSTRUCTIVE PULMONARY DISEASE, UNSPECIFIED (5) CAD (coronary artery disease) Code(s): I25.10 - ATHSCL HEART DISEASE OF [place] CORONARY ARTERY W/O ANG PCTRS Qualifiers: Coronary Disease-Associated Artery/Lesion type: [place] artery [place] vs. transplanted heart: [place] heart Associated angina: with unstable angina Qualified Code(s): I25.110 - Atherosclerotic heart disease of [place] coronary artery with unstable angina pectoris (6) CHF (congestive heart failure) Code(s): I50.9 - HEART FAILURE, UNSPECIFIED Qualifiers: Heart failure type: unspecified Heart failure chronicity: acute on chronic Qualified Code(s): I50.9 - Heart failure, unspecified (7) CKD (chronic kidney disease) stage 3, GFR 30-59 ml/min Code(s): N18.3 - CHRONIC KIDNEY DISEASE, STAGE 3 (MODERATE) (8) Prophylactic measure Code(s): Z29.9 - ENCOUNTER FOR PROPHYLACTIC MEASURES, UNSPECIFIED plan cx result noted continue vanco vascular plan noted rest as per the team patient for or today
--- NOTE | 2019-04-12 11:59 | OP ---
Operative Note - Note: Operative Date: 04/12/19 Pre-Operative Diagnosis: Gangrene left 4th toe Operation: Revascularization left popliteal with angioplasty Findings: Patent aorta, iliacs, left femoral, 80% stenosis of proximal popliteal artery. Occlusion of anterior and posterior popliteal arteries, patent peroneal with reconstitution of DP artery in foot. Post-Operative Diagnosis: Same as Pre-op Surgeon: Pravin Lance Anesthesiologist/LITIGATION ASSOCIATE: Sylvain Stringer Anesthesia: Fractional
[2019-04-12] MEDS ORDERED: ONDANSETRON 4 MG/2 ML VIAL IVPUSH PRN (13:36)
--- NOTE | 2019-04-12 14:12 | PN ---
Progress Note, Physician History of Present Illness: Denies dyspnea or orthopnea. s/p left infrapopliteal AUTO POLISHER for gangrene left 4th toe. - Current Medication List Current Medications: Active Medications Acetaminophen (Tylenol -) 650 mg PO Q6H PRN PRN Reason: FEVER Acetylcysteine (Mucomyst 20 Oral / Inh Use Only*) 600 mg PO RBID [facility] Stop: 04/13/19 19:59 Al Hydroxide/Mg Hydroxide (Mylanta Suspension -) 30 ml PO Q6HPO PRN PRN Reason: DYSPEPSIA Albuterol Sulfate (Ventolin 0.083% Nebulizer Soln -) 1 amp NEB RQID [facility] Aspirin (Asa -) 81 mg PO DAILY [facility] Atorvastatin Calcium (Lipitor -) 40 mg PO HS [facility] Carvedilol (Coreg -) 12.5 mg PO BID [facility] Clopidogrel Bisulfate (Plavix -) 75 mg PO DAILY [facility] Ezetimibe (Zetia -) 10 mg PO DAILY [facility] Fentanyl (Sublimaze Injection -) 25 mcg IVPUSH [id number] PRN PRN Reason: PAIN-PACU ORDER X 4 DOSES ONLY Stop: 04/13/19 13:35 Gabapentin (Neurontin -) 600 mg PO TID [facility] Heparin Sodium (Porcine) (Heparin -) 5,000 unit SQ BID [facility] Sodium Chloride (Normal Saline -) 1,000 mls @ 75 mls/hr IV ASDIR [facility] Vancomycin HCl (Vancomycin (Pre-Docked)) 1,000 mg in 250 mls @ 166.667 mls/hr IVPB 0200,1400 [facility]; Protocol Insulin Aspart (Novolog Vial Sliding Scale -) 1 vial SQ ACHS [facility]; Protocol Insulin Detemir (Levemir Vial) 20 units SQ HS [facility] Levothyroxine Sodium (Synthroid -) 88 mcg PO AM [facility] Ondansetron HCl (Zofran Injection) 4 mg IVPUSH Q6H PRN PRN Reason: NAUSEA AND/OR VOMITING Stop: 04/13/19 13:35 Pantoprazole Sodium (Protonix -) 40 mg PO DAILY [facility] Polyethylene Glycol (Miralax (For Daily Use) -) 17 gm PO DAILY [facility] Ranolazine (Ranexa -) 500 mg PO BID [facility] - Objective Vital Signs: Vital Signs Temperature 97.5 F L 04/12/19 12:02 Pulse Rate 43 L 04/12/19 14:00 Respiratory Rate 11 04/12/19 14:00 Blood Pressure 149/79 04/12/19 14:00 O2 Sat by Pulse Oximetry (%) 99 04/12/19 14:00 Constitutional: Yes: No Distress, Calm Neck: Yes: Supple Cardiovascular: Yes: Regular Rate and Rhythm Respiratory: Yes: Regular, Diminished, On Nasal O2 Gastrointestinal: Yes: Normal Bowel Sounds, Soft, Abdomen, Obese Edema: No Labs: CBC, BMP 04/12/19 07:30 04/12/19 07:30 INR, PTT INR 1.11 (0.83-1.09) H 04/06/19 13:20 Assessment/Plan 08/19/2018 Echo: Mild-mod decreased LVEF 40-45% with AK in old LAD infarct, normal RV size and fxn, mild LAE, mild MR, mod TR 09/10/2017 Echo: (Old LAD infarct) mild-moderate decrease in LV systolic function, mild ISA, trace MR, severe apical septal and apical lateral hypokinesia Problem List - Problems (1) Acute on chronic systolic (congestive) heart failure Code(s): I50.23 - ACUTE ON CHRONIC SYSTOLIC (CONGESTIVE) HEART FAILURE (2) Anemia Code(s): D64.9 - ANEMIA, UNSPECIFIED (3) Cellulitis Code(s): L03.90 - CELLULITIS, UNSPECIFIED (4) Osteomyelitis Code(s): M86.9 - OSTEOMYELITIS, UNSPECIFIED (5) PAD (peripheral artery disease) Code(s): I73.9 - PERIPHERAL VASCULAR DISEASE, UNSPECIFIED (6) S/P CABG (coronary artery bypass graft) Code(s): Z95.1 - PRESENCE OF AORTOCORONARY BYPASS GRAFT (7) Type 2 diabetes mellitus Code(s): E11.9 - TYPE 2 DIABETES MELLITUS WITHOUT COMPLICATIONS Qualifiers: Diabetes mellitus custodial insulin use: unspecified custodial insulin use status Diabetes mellitus complication status: with neurologic complications Diabetes mellitus complication detail: with polyneuropathy Qualified Code(s): E11.42 - Type 2 diabetes mellitus with diabetic polyneuropathy (8) COPD (chronic obstructive pulmonary disease) Code(s): J44.9 - CHRONIC OBSTRUCTIVE PULMONARY DISEASE, UNSPECIFIED (9) CAD (coronary artery disease) Code(s): I25.10 - ATHSCL HEART DISEASE OF [place] CORONARY ARTERY W/O ANG PCTRS Qualifiers: Coronary Disease-Associated Artery/Lesion type: [place] artery [place] vs. transplanted heart: [place] heart Associated angina: with unstable angina Qualified Code(s): I25.110 - Atherosclerotic heart disease of [place] coronary artery with unstable angina pectoris (10) CKD (chronic kidney disease) stage 3, GFR 30-59 ml/min Code(s): N18.3 - CHRONIC KIDNEY DISEASE, STAGE 3 (MODERATE) (11) Hyperlipidemia Code(s): E78.5 - HYPERLIPIDEMIA, UNSPECIFIED Qualifiers: Hyperlipidemia type: pure hypercholesterolemia Qualified Code(s): E78.00 - Pure hypercholesterolemia, unspecified; E78.0 - Pure hypercholesterolemia (12) Hypertension Code(s): I10 - ESSENTIAL (PRIMARY) HYPERTENSION (13) Hypothyroidism Code(s): E03.9 - HYPOTHYROIDISM, UNSPECIFIED Qualifiers: Hypothyroidism type: unspecified Qualified Code(s): E03.9 - Hypothyroidism , unspecified Assessment/Plan 1. LV systolic dysfunction w/ h/o failure 2. Pulmonary HTN 3. Cellulitis 4. T2DM 5. CAD s/p [place], CABG, angina pectoris 6. PAD with gangrene left 4th toe s/p left popliteal angioplasty 7. Anemia 8. Hypothyroidism PLAN: 1. Judicious post-cath hydration with monitor renal function and electrolytes 2. Continue Carvedilol 12.5 mg BID, Lipitor 40 mg QHS, Zetia 10 mg QD and Ranexa 500 mg BID as tolerated 3. Continue ASA 81 mg QD and Plavix 75 mg QD 4. Antibiotic coverage and wound care
[2019-04-12] MEDS: VANCOMYCIN 1 GRAM (PRE-DOCKED) 1,000 MG/250 ML BAG IVPB SCH ×2 (14:44→19:31)
[2019-04-12] MEDS ORDERED: ACETYLCYSTEINE 20% 200MG/ML 4 ML VIAL *FOR ORAL / INH USE ONLY PO SCH (16:00)
[2019-04-12] MEDS: ALBUTEROL SO4 0.083% IH SOL 2.5 MG/3 ML VIAL.NEB. NEB SCH ×2 (16:52→20:53)
[2019-04-12] MEDS: SODIUM CHLORIDE 1,000 ML IV SCH (16:58)
--- NOTE | 2019-04-12 19:27 | PN ---
Progress Note, Physician History of Present Illness: Pt seen and examined in recovery room. She just had the procedure. Pt is drowsy. - Current Medication List Current Medications: Active Medications Acetaminophen (Tylenol -) 650 mg PO Q6H PRN PRN Reason: FEVER Acetylcysteine (Mucomyst 20 Oral / Inh Use Only*) 600 mg PO RBID [facility] Stop: 04/13/19 19:59 Al Hydroxide/Mg Hydroxide (Mylanta Suspension -) 30 ml PO Q6HPO PRN PRN Reason: DYSPEPSIA Albuterol Sulfate (Ventolin 0.083% Nebulizer Soln -) 1 amp NEB RQID [facility] Last Admin: 04/12/19 16:52 Dose: Not Given Aspirin (Asa -) 81 mg PO DAILY [facility] Atorvastatin Calcium (Lipitor -) 40 mg PO HS [facility] Carvedilol (Coreg -) 12.5 mg PO BID [facility] Clopidogrel Bisulfate (Plavix -) 75 mg PO DAILY [facility] Ezetimibe (Zetia -) 10 mg PO DAILY [facility] Gabapentin (Neurontin -) 600 mg PO TID [facility] Last Admin: 04/12/19 15:49 Dose: Not Given Heparin Sodium (Porcine) (Heparin -) 5,000 unit SQ BID [facility] Sodium Chloride (Normal Saline -) 1,000 mls @ 75 mls/hr IV ASDIR [facility] Last Admin: 04/12/19 16:58 Dose: 75 mls/hr Vancomycin HCl (Vancomycin (Pre-Docked)) 1,000 mg in 250 mls @ 166.667 mls/hr IVPB 0200,1400 [facility]; Protocol Last Admin: 04/12/19 14:44 Dose: 166.667 mls/hr Insulin Aspart (Novolog Vial Sliding Scale -) 1 vial SQ ACHS [facility]; Protocol Last Admin: 04/12/19 16:57 Dose: Not Given Insulin Detemir (Levemir Vial) 20 units SQ HS [facility] Levothyroxine Sodium (Synthroid -) 88 mcg PO AM [facility] Pantoprazole Sodium (Protonix -) 40 mg PO DAILY [facility] Polyethylene Glycol (Miralax (For Daily Use) -) 17 gm PO DAILY [facility] Ranolazine (Ranexa -) 500 mg PO BID [facility] - Objective Vital Signs: Vital Signs Temperature 97.8 F 04/12/19 16:20 Pulse Rate 48 L 04/12/19 16:20 Respiratory Rate 14 04/12/19 16:20 Blood Pressure 145/50 L 04/12/19 16:20 O2 Sat by Pulse Oximetry (%) 100 04/12/19 16:20 Constitutional: Yes: Calm Eyes: Yes: Conjunctiva Clear HENT: Yes: Atraumatic Cardiovascular: Yes: S1, S2 Respiratory: Yes: CTA Bilaterally Gastrointestinal: Yes: Soft Genitourinary: Yes: WNL Musculoskeletal: Yes: WNL Edema: No Neurological: Yes: Other (drowsy) Labs: CBC, BMP 04/12/19 07:30 04/12/19 07:30 INR, PTT INR 1.11 (0.83-1.09) H 04/06/19 13:20 Problem List - Problems (1) HAROLDO (acute kidney injury) Code(s): N17.9 - ACUTE KIDNEY FAILURE, UNSPECIFIED (2) Acute on chronic systolic (congestive) heart failure Code(s): I50.23 - ACUTE ON CHRONIC SYSTOLIC (CONGESTIVE) HEART FAILURE (3) Anemia Code(s): D64.9 - ANEMIA, UNSPECIFIED (4) Cellulitis Code(s): L03.90 - CELLULITIS, UNSPECIFIED Assessment/Plan Current Medications Generic Name Dose Route Start Last Admin Trade Name Freq PRN Reason Stop Dose Admin Acetaminophen 650 mg 04/12/19 12:52 Tylenol - PO Q6H PRN FEVER Acetylcysteine 600 mg 04/12/19 20:00 Mucomyst 20 Oral / Inh Use Only* PO 04/13/19 19:59 RBID [facility] Al Hydroxide/Mg Hydroxide 30 ml 04/12/19 12:52 Mylanta Suspension - PO Q6HPO PRN DYSPEPSIA Albuterol Sulfate 1 amp 04/12/19 16:00 04/12/19 16:52 Ventolin 0.083% Nebulizer Soln - NEB Not Given RQID [facility] Aspirin 81 mg 04/13/19 10:00 Asa - PO DAILY [facility] Atorvastatin Calcium 40 mg 04/12/19 22:00 Lipitor - PO HS [facility] Carvedilol 12.5 mg 04/12/19 22:00 Coreg - PO BID [facility] Clopidogrel Bisulfate 75 mg 04/13/19 10:00 Plavix - PO DAILY [facility] Ezetimibe 10 mg 04/13/19 10:00 Zetia - PO DAILY [facility] Gabapentin 600 mg 04/12/19 14:00 04/12/19 15:49 Neurontin - PO Not Given TID [facility] Heparin Sodium (Porcine) 5,000 unit 04/12/19 22:00 Heparin - SQ BID [facility] Sodium Chloride 1,000 mls @ 75 mls/hr 04/12/19 12:52 04/12/19 16:58 Normal Saline - IV 75 mls/hr ASDIR [facility] Administration Vancomycin HCl 1,000 mg in 250 mls @ 166.667 mls/hr 04/12/19 14:00 04/12/19 14:44 Vancomycin (Pre-Docked) IVPB 166.667 mls/hr 0200,1400 [facility] Administration Protocol Insulin Aspart 1 vial 04/12/19 16:30 04/12/19 16:57 Novolog Vial Sliding Scale - SQ Not Given ACHS [facility] Protocol Insulin Detemir 20 units 04/12/19 22:00 Levemir Vial SQ HS [facility] Levothyroxine Sodium 88 mcg 04/13/19 07:00 Synthroid - PO AM [facility] Pantoprazole Sodium 40 mg 04/13/19 10:00 Protonix - PO DAILY [facility] Polyethylene Glycol 17 gm 04/13/19 10:00 Miralax (For Daily Use) - PO DAILY [facility] Ranolazine 500 mg 04/12/19 22:00 Ranexa - PO BID [facility] Impression 1. hyponatremia 2. cellulitis 3. htn 4. chf 5. cad 6. ckd 7. hx cva Plan - cont to monitor renal function - repeat durability engineer in am and at 48 hrs - avoid nsaids - lolly on hold for now - mucomyst 600 mg po q 12 hrs
[2019-04-12] MEDS: HEPARIN NA (PORCINE) 5,000 UNITS/ML 1ML VIAL SQ SCH ×2 (19:30→22:31)
[2019-04-12] MEDS: CARVEDILOL 12.5 MG TABLET (FP) PO SCH ×2 (19:30→22:30)
[2019-04-12] MEDS: PANTOPRAZOLE 40 MG TABLET PO SCH (19:31)
[2019-04-12] MEDS: RANOLAZINE E.R. 500 MG TABLET (FP) PO SCH ×2 (19:31→22:31)
[2019-04-12] MEDS: POLYETHYLENE GLYCOL 3350 119 GM BTL PO SCH (19:31)
[2019-04-12] MEDS: EZETIMIBE 10 MG TABLET (FP) PO SCH (19:31)
[2019-04-12] MEDS: INSULIN (LEVEMIR) 100 UNITS/ML UNITS SQ SCH (22:29)
[2019-04-12] MEDS: ATORVASTATIN CA 40 MG TABLET (FP) PO SCH (22:29)
[2019-04-12] MEDS ORDERED: VANCOMYCIN 1 GRAM (PRE-DOCKED) 1,000 MG/250 ML BAG IVPB SCH (23:00)
[2019-04-12] MEDS: ACETAMINOPHEN 325 MG TABLET (FP) PO PRN (23:46)
[2019-04-13] MEDS: VANCOMYCIN 1 GRAM (PRE-DOCKED) 1,000 MG/250 ML BAG IVPB SCH ×2 (02:20→14:06)
[2019-04-13] MEDS: ACETYLCYSTEINE 20% 200MG/ML 4 ML VIAL *FOR ORAL / INH USE ONLY PO SCH ×2 (04:03→21:07)
[2019-04-13] MEDS: INSULIN SLIDING SCALE (NOVOLOG) 1 VIAL SQ SCH ×4 (06:27→21:50)
[2019-04-13] MEDS: LEVOTHYROXINE NA 88 MCG TABLET (FP) PO SCH (06:27)
[2019-04-13] MEDS: GABAPENTIN 300 MG CAPSULE PO SCH ×3 (06:27→21:44)
[2019-04-13] MEDS: ACETAMINOPHEN 325 MG TABLET (FP) PO PRN (06:28)
[2019-04-13] MEDS: ALBUTEROL SO4 0.083% IH SOL 2.5 MG/3 ML VIAL.NEB. NEB SCH ×4 (07:35→20:50)
[2019-04-13] MEDS ORDERED: MAG HYDROX/AL HYDROX/SIMETH 30 ML UNIT-DOSE CUP PO PRN (08:42)
--- NOTE | 2019-04-13 09:13 | PN ---
Progress Note (short form) - Note Progress Note: Vascular surgery: Vital Signs Period Temp Pulse Resp BP Sys/Ibarra Pulse Ox Last 24 Hr 97.4 F-98.5 F 42-57 10-20 138-189/43-79 97-100 GEN: Alert Right groin: With ecchymosis. Dressing c/d/i. No evidence of masses. b/l feet warm. Left foot with mild erythema to the forefoot with scant drainage to left 3/4th web toe space. A/P: 83 yo female s/p angio with revascularization left popliteal with angioplasty No evidnece of bleeding from the right groin, left foot ulcer/ertyhema stable Care as per podiatry and the medical service Discharge instructions for follow up care wt Dr. 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
--- NOTE | 2019-04-13 09:16 | PN ---
Progress Note, Physician Chief Complaint: FUV left foot s/p angioplasty yesterday History of Present Illness: D - Current Medication List Current Medications: Active Medications Acetaminophen (Tylenol -) 650 mg PO Q6H PRN PRN Reason: FEVER Last Admin: 04/13/19 06:28 Dose: 650 mg Acetylcysteine (Mucomyst 20 Oral / Inh Use Only*) 600 mg PO RBID [facility] Stop: 04/13/19 19:59 Last Admin: 04/13/19 04:03 Dose: Not Given Al Hydroxide/Mg Hydroxide (Mylanta Oral Suspension -) 30 ml PO Q6HPO PRN PRN Reason: DYSPEPSIA Albuterol Sulfate (Ventolin 0.083% Nebulizer Soln -) 1 amp NEB RQID [facility] Last Admin: 04/13/19 07:35 Dose: 1 amp Aspirin (Asa -) 81 mg PO DAILY [facility] Atorvastatin Calcium (Lipitor -) 40 mg PO HS [facility] Last Admin: 04/12/19 22:29 Dose: 40 mg Carvedilol (Coreg -) 12.5 mg PO BID [facility] Last Admin: 04/12/19 22:30 Dose: 12.5 mg Clopidogrel Bisulfate (Plavix -) 75 mg PO DAILY [facility] Ezetimibe (Zetia -) 10 mg PO DAILY [facility] Gabapentin (Neurontin -) 600 mg PO TID [facility] Last Admin: 04/13/19 06:27 Dose: 600 mg Heparin Sodium (Porcine) (Heparin -) 5,000 unit SQ BID [facility] Last Admin: 04/12/19 22:31 Dose: 5,000 unit Sodium Chloride (Normal Saline -) 1,000 mls @ 75 mls/hr IV ASDIR [facility] Last Admin: 04/12/19 16:58 Dose: 75 mls/hr Vancomycin HCl (Vancomycin (Pre-Docked)) 1,000 mg in 250 mls @ 166.667 mls/hr IVPB 0200,1400 [facility]; Protocol Last Admin: 04/13/19 02:20 Dose: 166.667 mls/hr Insulin Aspart (Novolog Vial Sliding Scale -) 1 vial SQ [facility]; Protocol Last Admin: 04/13/19 06:27 Dose: Not Given Insulin Detemir (Levemir Vial) 20 units SQ [facility] Last Admin: 04/12/19 22:29 Dose: 20 units Levothyroxine Sodium (Synthroid -) 88 mcg PO AM [facility] Last Admin: 04/13/19 06:27 Dose: 88 mcg Pantoprazole Sodium (Protonix -) 40 mg PO DAILY [facility] Polyethylene Glycol (Miralax (For Daily Use) -) 17 gm PO DAILY [facility] Ranolazine (Ranexa -) 500 mg PO BID [facility] Last Admin: 04/12/19 22:31 Dose: 500 mg - Objective Vital Signs: Vital Signs Temperature 98.5 F 04/13/19 06:00 Pulse Rate 56 L 04/13/19 06:00 Respiratory Rate 20 04/13/19 06:00 Blood Pressure 189/72 H 04/13/19 06:00 O2 Sat by Pulse Oximetry (%) 100 04/12/19 16:20 Wound/Incision: Yes: Other (wound left 4th toe macerated, does not have a dressing on it at this time, +improved cellulitis, +drainage, +macerated 4th interspace) Labs: CBC, BMP 04/12/19 07:30 04/12/19 07:30 INR, PTT INR 1.11 (0.83-1.09) H 04/06/19 13:20 Assessment/Plan cellulitis 4th toe left wound 4th toe left om pvd Will follow. Betadine swab in between toes left foot daily. Will allow for demarcation. If necessary will schedule for amputation of toe(s).
[2019-04-13] MEDS ORDERED: PT OWN MED DRAWER 7, Y5N ONE (09:48)
--- NOTE | 2019-04-13 10:01 | PN ---
Physical Exam: SUBJECTIVE: Patient seen and examined. was anxious this morning, and concern for hypoxia causing some confusion. abg done which shows no CO2 retention (47 co2). patient noted to take off oxygen, and therefore reapplied. she denies chest pain, verbalizes feeling uncomfortable due to constipation x 5 days per patient. OBJECTIVE: started on bowel regimen monitor pain levels/anxiety Patient is an 83 year old female with a significant past medical history of hypertension, diabetes 2, hld, CHF, GERD, neuropathy, chronic diffuse pain, hypothyroidism, chronic L great toe osteomyelitis, S/P CABG (coronary artery bypass graft)and NSTEMI. Patient presents from her doctors office for left 4th toe redness with left 4th toe ulcer and redness from this toe that extends up to her anterior left foot. She had a hospitalization 1 year ago for prior gangrene/infection to 1st toe on left foot. No recent injury or falls, no trauma of this foot. foot xray is negative for acute fracture. she is s/p angiogram with close watch on kidney function. Vital Signs Period Temp Pulse Resp BP Sys/Ibarra Pulse Ox Last 24 Hr 97.4 F-98.5 F 42-57 10-20 138-189/43-79 97-100 GENERAL: Awake, alert with episodes of anxiety. HEAD: Normal with no signs of trauma. EYES: Pupils equal, round and reactive to light, extraocular movements intact, sclera anicteric, conjunctiva clear. No lid lag. EARS, NOSE, THROAT: Ears normal, nares patent, oropharynx clear without exudates. Moist mucous membranes. NECK: Normal range of motion, supple without lymphadenopathy, JVD, or masses. LUNGS: diminished bilaterally HEART: Regular rate and rhythm ABDOMEN: Soft, nontender, obese abdomen MUSCULOSKELETAL: Normal range of motion at all joints. No bony deformities or tenderness. No CVA tenderness. UPPER EXTREMITIES: 2+ pulses, warm, well-perfused. No cyanosis. No clubbing. No peripheral edema. LOWER EXTREMITIES: left foot left foot appears erythematous from 4th toe to the anterior of foot. left great toe with small ulcer that is drainage clear fluid. cultured in the Ed. and s/p angiogram. 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. Normal gait. Laboratory Results - last 24 hr 04/12/19 04/12/19 04/12/19 16:19 16:55 21:20 POC Glucometer 98 94 123 04/13/19 06:25 POC Glucometer 131 Active Medications Generic Name Dose Route Start Last Admin Trade Name Freq PRN Reason Stop Dose Admin Acetaminophen 650 mg 04/12/19 12:52 04/13/19 06:28 Tylenol - PO 650 mg Q6H PRN Administration FEVER Acetylcysteine 600 mg 04/12/19 20:00 04/13/19 04:03 Mucomyst 20 Oral / Inh Use Only* PO 04/13/19 19:59 Not Given RBID [facility] Al Hydroxide/Mg Hydroxide 30 ml 04/13/19 08:42 Mylanta Oral Suspension - PO Q6HPO PRN DYSPEPSIA Albuterol Sulfate 1 amp 04/12/19 16:00 04/13/19 07:35 Ventolin 0.083% Nebulizer Soln - NEB 1 amp RQID [facility] Administration Aspirin 81 mg 04/13/19 10:00 Asa - PO DAILY [facility] Atorvastatin Calcium 40 mg 04/12/19 22:00 04/12/19 22:29 Lipitor - PO 40 mg HS [facility] Administration Carvedilol 12.5 mg 04/12/19 22:00 04/12/19 22:30 Coreg - PO 12.5 mg BID [facility] Administration Clopidogrel Bisulfate 75 mg 04/13/19 10:00 Plavix - PO DAILY [facility] Docusate Sodium 100 mg 04/13/19 14:00 Colace - PO TID [facility] Ezetimibe 10 mg 04/13/19 10:00 Zetia - PO DAILY [facility] Gabapentin 600 mg 04/12/19 14:00 04/13/19 06:27 Neurontin - PO 600 mg TID [facility] Administration Heparin Sodium (Porcine) 5,000 unit 04/12/19 22:00 04/12/19 22:31 Heparin - SQ 5,000 unit BID [facility] Administration Sodium Chloride 1,000 mls @ 75 mls/hr 04/12/19 12:52 04/12/19 16:58 Normal Saline - IV 75 mls/hr ASDIR [facility] Administration Vancomycin HCl 1,000 mg in 250 mls @ 166.667 mls/hr 04/12/19 14:00 04/13/19 02:20 Vancomycin (Pre-Docked) IVPB 166.667 mls/hr 0200,1400 [facility] Administration Protocol Insulin Aspart 1 vial 04/12/19 16:30 04/13/19 06:27 Novolog Vial Sliding Scale - SQ Not Given ACHS [facility] Protocol Insulin Detemir 20 units 04/12/19 22:00 04/12/19 22:29 Levemir Vial SQ 20 units HS [facility] Administration Levothyroxine Sodium 88 mcg 04/13/19 07:00 04/13/19 06:27 Synthroid - PO 88 mcg AM [facility] Administration Pantoprazole Sodium 40 mg 04/13/19 10:00 Protonix - PO DAILY [facility] Polyethylene Glycol 17 gm 04/13/19 10:00 Miralax (For Daily Use) - PO DAILY [facility] Ranolazine 500 mg 04/12/19 22:00 04/12/19 22:31 Ranexa - PO 500 mg BID [facility] Administration Senna 2 tab 04/13/19 10:01 Senna - PO HS PRN CONSTIPATION ASSESSMENT/PLAN: Problem List - Problems (1) Shortness of breath Assessment/Plan: continue on 2 liters of nasal cannula. no chest pain. She has a long cardiac history with diminished lungs. she was placed on 2 liters of nasal cannula and her duonebs were scheduled to be given every 4-6 hours. cardiology/pulmonary consulted and following abg with CO2 47. monitor respiratory status. Code(s): R06.02 - SHORTNESS OF BREATH (2) Cellulitis Assessment/Plan: cellulitis 4th toe left/wound 4th toe left appreciate vasc consultation Angiogram done yesterday. monitor renal function. Betadine swab in between toes left foot daily. Code(s): L03.90 - CELLULITIS, UNSPECIFIED (3) S/P CABG (coronary artery bypass graft) Assessment/Plan: continue home meds no chest pain Code(s): Z95.1 - PRESENCE OF AORTOCORONARY BYPASS GRAFT (4) Type 2 diabetes mellitus Assessment/Plan: novolg and levemir diabetic diet a1c 9.6 Code(s): E11.9 - TYPE 2 DIABETES MELLITUS WITHOUT COMPLICATIONS Qualifiers: Diabetes mellitus long term care pharmacist insulin use: unspecified alf insulin use status Diabetes mellitus complication status: with neurologic complications Diabetes mellitus complication detail: with polyneuropathy Qualified Code(s): E11.42 - Type 2 diabetes mellitus with diabetic polyneuropathy (5) COPD (chronic obstructive pulmonary disease) Assessment/Plan: duonebs prn Code(s): J44.9 - CHRONIC OBSTRUCTIVE PULMONARY DISEASE, UNSPECIFIED (6) CAD (coronary artery disease) Assessment/Plan: continue home meds Code(s): I25.10 - ATHSCL HEART DISEASE OF [place] CORONARY ARTERY W/O ANG PCTRS Qualifiers: Coronary Disease-Associated Artery/Lesion type: [place] artery [place] vs. transplanted heart: [place] heart Associated angina: with unstable angina Qualified Code(s): I25.110 - Atherosclerotic heart disease of [place] coronary artery with unstable angina pectoris (7) CHF (congestive heart failure) Assessment/Plan: monitor intake and output. on lasix. Code(s): I50.9 - HEART FAILURE, UNSPECIFIED Qualifiers: Heart failure type: unspecified Heart failure chronicity: acute on chronic Qualified Code(s): I50.9 - Heart failure, unspecified (8) CKD (chronic kidney disease) stage 3, GFR 30-59 ml/min Assessment/Plan: daily monitoring of kidney function appears to be at her baseline renal following Code(s): N18.3 - CHRONIC KIDNEY DISEASE, STAGE 3 (MODERATE) (9) Prophylactic measure Assessment/Plan: fen toleraring po stop ivf monitor electrolyes full code Code(s): Z29.9 - ENCOUNTER FOR PROPHYLACTIC MEASURES, UNSPECIFIED Visit type - Emergency Visit Emergency Visit: Yes ED Registration Date: 04/06/19 Care time: The patient presented to the Emergency Department on the above date and was hospitalized for further evaluation of their emergent condition. - New Patient This patient is new to me today: No - Critical Care Critical Care patient: No - Discharge Referral Referred to [facility] Med P.C.: No
[2019-04-13] MEDS: ASPIRIN 81 MG CHEWABLE TABLETS PO SCH (10:13)
[2019-04-13] MEDS: POLYETHYLENE GLYCOL 3350 119 GM BTL PO SCH (10:13)
[2019-04-13] MEDS: CARVEDILOL 12.5 MG TABLET (FP) PO SCH ×2 (10:13→21:45)
[2019-04-13] MEDS: PANTOPRAZOLE 40 MG TABLET PO SCH (10:14)
[2019-04-13] MEDS: CLOPIDOGREL BISULFATE 75 MG TABLET (FP) PO SCH (10:14)
--- NOTE | 2019-04-13 10:14 | PN ---
Progress Note (short form) - Note Progress Note: PULMONARY s/p left popliteal angioplasty. c/o abdominal discomfort and constipation. Vital Signs Period Temp Pulse Resp BP Sys/Ibarra Pulse Ox Last 24 Hr 97.4 F-98.5 F 42-57 10-20 138-189/43-79 97-100 Gen: NAD at rest Heart: RRR Lung: decreased breath sounds at the bases Abd: soft, nontender Ext: no edema CBC, BMP 04/12/19 07:30 04/12/19 07:30 Active Medications Acetaminophen (Tylenol -) 650 mg PO Q6H PRN PRN Reason: FEVER Last Admin: 04/13/19 06:28 Dose: 650 mg Acetylcysteine (Mucomyst 20 Oral / Inh Use Only*) 600 mg PO RBID [facility] Stop: 04/13/19 19:59 Last Admin: 04/13/19 04:03 Dose: Not Given Al Hydroxide/Mg Hydroxide (Mylanta Oral Suspension -) 30 ml PO Q6HPO PRN PRN Reason: DYSPEPSIA Albuterol Sulfate (Ventolin 0.083% Nebulizer Soln -) 1 amp NEB RQID [facility] Last Admin: 04/13/19 07:35 Dose: 1 amp Aspirin (Asa -) 81 mg PO DAILY [facility] Atorvastatin Calcium (Lipitor -) 40 mg PO HS [facility] Last Admin: 04/12/19 22:29 Dose: 40 mg Carvedilol (Coreg -) 12.5 mg PO BID [facility] Last Admin: 04/12/19 22:30 Dose: 12.5 mg Clopidogrel Bisulfate (Plavix -) 75 mg PO DAILY [facility] Docusate Sodium (Colace -) 100 mg PO TID [facility] Ezetimibe (Zetia -) 10 mg PO DAILY [facility] Gabapentin (Neurontin -) 600 mg PO TID [facility] Last Admin: 04/13/19 06:27 Dose: 600 mg Heparin Sodium (Porcine) (Heparin -) 5,000 unit SQ BID [facility] Last Admin: 04/12/19 22:31 Dose: 5,000 unit Sodium Chloride (Normal Saline -) 1,000 mls @ 75 mls/hr IV ASDIR [facility] Last Admin: 04/12/19 16:58 Dose: 75 mls/hr Vancomycin HCl (Vancomycin (Pre-Docked)) 1,000 mg in 250 mls @ 166.667 mls/hr IVPB 0200,1400 [facility]; Protocol Last Admin: 04/13/19 02:20 Dose: 166.667 mls/hr Insulin Aspart (Novolog Vial Sliding Scale -) 1 vial SQ ACHS [facility]; Protocol Last Admin: 04/13/19 06:27 Dose: Not Given Insulin Detemir (Levemir Vial) 20 units SQ HS [facility] Last Admin: 04/12/19 22:29 Dose: 20 units Levothyroxine Sodium (Synthroid -) 88 mcg PO AM [facility] Last Admin: 04/13/19 06:27 Dose: 88 mcg Pantoprazole Sodium (Protonix -) 40 mg PO DAILY [facility] Polyethylene Glycol (Miralax (For Daily Use) -) 17 gm PO DAILY [facility] Ranolazine (Ranexa -) 500 mg PO BID [facility] Last Admin: 04/12/19 22:31 Dose: 500 mg Senna (Senna -) 2 tab PO HS PRN PRN Reason: CONSTIPATION A/P Acute on Chronic Systolic Heart Failure CAD s/p CABG Pulmonary HTN Acute on Chronic Renal Failure HTN DM PAD L Toe Osteomyelitis Hypothyroidism Anemia Hyponatremia - antibiotics per ID - bowel regimen - monitor lytes - monitor urine output, creatinine - daily weights - O2 to keep SpO2 >905 - DVT prophylaxis
[2019-04-13] MEDS: HEPARIN NA (PORCINE) 5,000 UNITS/ML 1ML VIAL SQ SCH ×2 (10:15→21:45)
[2019-04-13] MEDS: EZETIMIBE 10 MG TABLET (FP) PO SCH (10:15)
[2019-04-13] MEDS ORDERED: BISACODYL 10 MG SUPP.RECT RC ONE (10:16)
[2019-04-13] MEDS: RANOLAZINE E.R. 500 MG TABLET (FP) PO SCH ×2 (10:25→21:47)
[2019-04-13 10:43] LABS: ARTERIAL BLD GAS O2 SATURATION 96.6 % (95-98); ARTERIAL BLOOD GAS BASE EXCESS 2.3 meq/l (-2-2); ARTERIAL BLOOD GAS PCO2 47.1 mmHg (35-45); ARTERIAL BLOOD GAS PO2 85.8 mmHg (80-100); ARTERIAL BLOOD GAS pH 7.38 (7.35-7.45)
[2019-04-13 10:54] LABS: ALLENS TEST POSITIVE
[2019-04-13 11:24] LABS: BASO % 1.3 % (0-2.0); EOS % 1.7 % (0-4.5); HEMATOCRIT 27.9 % (32.4-45.2); HEMOGLOBIN 9.4 GM/dL (10.7-15.3); LYMPH % 19.3 % (8-40); MCH 30.6 pg (25.7-33.7); MCHC 33.6 g/dl (32.0-36.0); MEAN CELL VOLUME 91.2 fl (80-96); MEAN PLT VOLUME 8.5 fl (7.5-11.1); MONO % 6.9 % (3.8-10.2); NEUT % 70.8 % (42.8-82.8); PLATELET COUNT 320 K/MM3 (134-434); RBC 3.07 M/mm3 (3.60-5.2); RDW 13.5 % (11.6-15.6); WHITE BLOOD COUNT 8.4 K/mm3 (4.0-10.0)
[2019-04-13] MEDS ORDERED: INSULIN (NOVOLOG) ASPART 100 UNITS/ML 10ML VIAL ONE (11:33)
[2019-04-13] MEDS: SODIUM CHLORIDE 1,000 ML IV SCH ×2 (11:41→16:29)
[2019-04-13 11:47] LABS: ALBUMIN 2.9 g/dl (3.4-5.0); BILIRUBIN,TOTAL 0.6 mg/dL (0.2-1); BLOOD UREA NITROGEN 17.9 mg/dL (7-18); CALCIUM 8.5 mg/dL (8.5-10.1); MAGNESIUM 2.4 mg/dL (1.8-2.4); TOT PROT 6.8 g/dl (6.4-8.2)
--- NOTE | 2019-04-13 12:08 | PN ---
Progress Note, Physician History of Present Illness: Denies dyspnea or orthopnea. s/p left infrapopliteal PICKER TENDER for gangrene left 4th toe osteomyelitis - Current Medication List Current Medications: Active Medications Acetaminophen (Tylenol -) 650 mg PO Q6H PRN PRN Reason: FEVER Last Admin: 04/13/19 06:28 Dose: 650 mg Acetylcysteine (Mucomyst 20 Oral / Inh Use Only*) 600 mg PO RBID [facility] Stop: 04/13/19 19:59 Last Admin: 04/13/19 04:03 Dose: Not Given Al Hydroxide/Mg Hydroxide (Mylanta Oral Suspension -) 30 ml PO Q6HPO PRN PRN Reason: DYSPEPSIA Albuterol Sulfate (Ventolin 0.083% Nebulizer Soln -) 1 amp NEB RQID [facility] Last Admin: 04/13/19 11:20 Dose: 1 amp Aspirin (Asa -) 81 mg PO DAILY [facility] Last Admin: 04/13/19 10:13 Dose: 81 mg Atorvastatin Calcium (Lipitor -) 40 mg PO HS [facility] Last Admin: 04/12/19 22:29 Dose: 40 mg Carvedilol (Coreg -) 12.5 mg PO BID [facility] Last Admin: 04/13/19 10:13 Dose: 12.5 mg Clopidogrel Bisulfate (Plavix -) 75 mg PO DAILY [facility] Last Admin: 04/13/19 10:14 Dose: 75 mg Docusate Sodium (Colace -) 100 mg PO TID [facility] Ezetimibe (Zetia -) 10 mg PO DAILY [facility] Last Admin: 04/13/19 10:15 Dose: 10 mg Gabapentin (Neurontin -) 600 mg PO TID [facility] Last Admin: 04/13/19 06:27 Dose: 600 mg Heparin Sodium (Porcine) (Heparin -) 5,000 unit SQ BID [facility] Last Admin: 04/13/19 10:15 Dose: 5,000 unit Sodium Chloride (Normal Saline -) 1,000 mls @ 75 mls/hr IV ASDIR [facility] Last Admin: 04/13/19 11:41 Dose: 75 mls/hr Vancomycin HCl (Vancomycin (Pre-Docked)) 1,000 mg in 250 mls @ 166.667 mls/hr IVPB 0200,1400 [facility]; Protocol Last Admin: 04/13/19 02:20 Dose: 166.667 mls/hr Insulin Aspart (Novolog Vial Sliding Scale -) 1 vial SQ ACHS [facility]; Protocol Last Admin: 04/13/19 11:39 Dose: Not Given Insulin Detemir (Levemir Vial) 20 units SQ HS [facility] Last Admin: 04/12/19 22:29 Dose: 20 units Levothyroxine Sodium (Synthroid -) 88 mcg PO AM [facility] Last Admin: 04/13/19 06:27 Dose: 88 mcg Pantoprazole Sodium (Protonix -) 40 mg PO DAILY [facility] Last Admin: 04/13/19 10:14 Dose: 40 mg Polyethylene Glycol (Miralax (For Daily Use) -) 17 gm PO DAILY [facility] Last Admin: 04/13/19 10:13 Dose: 17 gm Ranolazine (Ranexa -) 500 mg PO BID [facility] Last Admin: 04/13/19 10:25 Dose: 500 mg Senna (Senna -) 2 tab PO HS PRN PRN Reason: CONSTIPATION - Objective Vital Signs: Vital Signs Temperature 98.5 F 04/13/19 06:00 Pulse Rate 56 L 04/13/19 06:00 Respiratory Rate 20 04/13/19 06:00 Blood Pressure 189/72 H 04/13/19 06:00 O2 Sat by Pulse Oximetry (%) 100 04/12/19 16:20 Constitutional: Yes: No Distress, Calm Neck: Yes: Supple Cardiovascular: Yes: Regular Rate and Rhythm Respiratory: Yes: Regular, Diminished Gastrointestinal: Yes: Normal Bowel Sounds, Soft Edema: No Labs: CBC, BMP 04/13/19 09:40 04/13/19 09:40 INR, PTT INR 1.11 (0.83-1.09) H 04/06/19 13:20 Assessment/Plan 08/19/2018 Echo: Mild-mod decreased LVEF 40-45% with AK in old LAD infarct, normal RV size and fxn, mild LAE, mild MR, mod TR 09/10/2017 Echo: (Old LAD infarct) mild-moderate decrease in LV systolic function, mild ISA, trace MR, severe apical septal and apical lateral hypokinesia Problem List - Problems (1) Acute on chronic systolic (congestive) heart failure Code(s): I50.23 - ACUTE ON CHRONIC SYSTOLIC (CONGESTIVE) HEART FAILURE (2) Anemia Code(s): D64.9 - ANEMIA, UNSPECIFIED (3) Cellulitis Code(s): L03.90 - CELLULITIS, UNSPECIFIED (4) Osteomyelitis Code(s): M86.9 - OSTEOMYELITIS, UNSPECIFIED (5) PAD (peripheral artery disease) Code(s): I73.9 - PERIPHERAL VASCULAR DISEASE, UNSPECIFIED (6) S/P CABG (coronary artery bypass graft) Code(s): Z95.1 - PRESENCE OF AORTOCORONARY BYPASS GRAFT (7) Type 2 diabetes mellitus Code(s): E11.9 - TYPE 2 DIABETES MELLITUS WITHOUT COMPLICATIONS Qualifiers: Diabetes mellitus retirement insulin use: unspecified retirement insulin use status Diabetes mellitus complication status: with neurologic complications Diabetes mellitus complication detail: with polyneuropathy Qualified Code(s): E11.42 - Type 2 diabetes mellitus with diabetic polyneuropathy (8) COPD (chronic obstructive pulmonary disease) Code(s): J44.9 - CHRONIC OBSTRUCTIVE PULMONARY DISEASE, UNSPECIFIED (9) CAD (coronary artery disease) Code(s): I25.10 - ATHSCL HEART DISEASE OF [place] CORONARY ARTERY W/O ANG PCTRS Qualifiers: Coronary Disease-Associated Artery/Lesion type: [place] artery [place] vs. transplanted heart: [place] heart Associated angina: with unstable angina Qualified Code(s): I25.110 - Atherosclerotic heart disease of [place] coronary artery with unstable angina pectoris (10) CKD (chronic kidney disease) stage 3, GFR 30-59 ml/min Code(s): N18.3 - CHRONIC KIDNEY DISEASE, STAGE 3 (MODERATE) (11) Hyperlipidemia Code(s): E78.5 - HYPERLIPIDEMIA, UNSPECIFIED Qualifiers: Hyperlipidemia type: pure hypercholesterolemia Qualified Code(s): E78.00 - Pure hypercholesterolemia, unspecified; E78.0 - Pure hypercholesterolemia (12) Hypertension Code(s): I10 - ESSENTIAL (PRIMARY) HYPERTENSION (13) Hypothyroidism Code(s): E03.9 - HYPOTHYROIDISM, UNSPECIFIED Qualifiers: Hypothyroidism type: unspecified Qualified Code(s): E03.9 - Hypothyroidism , unspecified Assessment/Plan 1. LV systolic dysfunction w/ h/o failure 2. Pulmonary HTN 3. Cellulitis 4. T2DM 5. CAD s/p [place], CABG, angina pectoris 6. PAD with gangrene left 4th toe osteomyelitis s/p left popliteal angioplasty 7. Anemia 8. Hypothyroidism PLAN: 1. Finish post-cath hydration with monitor renal function and electrolytes 2. Continue Carvedilol 12.5 mg BID, Lipitor 40 mg QHS, Zetia 10 mg QD and Ranexa 500 mg BID as tolerated 3. Continue ASA 81 mg QD and Plavix 75 mg QD 4. Antibiotic coverage and wound care, toe amputation per podiatry
[2019-04-13 12:16] LABS: ANISOCYTOSIS 0; MACROCYTOSIS 0; PLATELET ESTIMATE NORMAL
--- NOTE | 2019-04-13 12:55 | PN ---
Progress Note, Physician History of Present Illness: stable c/o of abd pain - Current Medication List Current Medications: Active Medications Acetaminophen (Tylenol -) 650 mg PO Q6H PRN PRN Reason: FEVER Last Admin: 04/13/19 06:28 Dose: 650 mg Acetylcysteine (Mucomyst 20 Oral / Inh Use Only*) 600 mg PO RBID [facility] Stop: 04/13/19 19:59 Last Admin: 04/13/19 04:03 Dose: Not Given Al Hydroxide/Mg Hydroxide (Mylanta Oral Suspension -) 30 ml PO Q6HPO PRN PRN Reason: DYSPEPSIA Albuterol Sulfate (Ventolin 0.083% Nebulizer Soln -) 1 amp NEB RQID [facility] Last Admin: 04/13/19 11:20 Dose: 1 amp Aspirin (Asa -) 81 mg PO DAILY [facility] Last Admin: 04/13/19 10:13 Dose: 81 mg Atorvastatin Calcium (Lipitor -) 40 mg PO HS [facility] Last Admin: 04/12/19 22:29 Dose: 40 mg Carvedilol (Coreg -) 12.5 mg PO BID [facility] Last Admin: 04/13/19 10:13 Dose: 12.5 mg Clopidogrel Bisulfate (Plavix -) 75 mg PO DAILY [facility] Last Admin: 04/13/19 10:14 Dose: 75 mg Docusate Sodium (Colace -) 100 mg PO TID [facility] Ezetimibe (Zetia -) 10 mg PO DAILY [facility] Last Admin: 04/13/19 10:15 Dose: 10 mg Gabapentin (Neurontin -) 600 mg PO TID [facility] Last Admin: 04/13/19 06:27 Dose: 600 mg Heparin Sodium (Porcine) (Heparin -) 5,000 unit SQ BID [facility] Last Admin: 04/13/19 10:15 Dose: 5,000 unit Sodium Chloride (Normal Saline -) 1,000 mls @ 75 mls/hr IV ASDIR [facility] Stop: 04/13/19 23:59 Last Admin: 04/13/19 11:41 Dose: 75 mls/hr Vancomycin HCl (Vancomycin (Pre-Docked)) 1,000 mg in 250 mls @ 166.667 mls/hr IVPB 0200,1400 [facility]; Protocol Last Admin: 04/13/19 02:20 Dose: 166.667 mls/hr Insulin Aspart (Novolog Vial Sliding Scale -) 1 vial SQ ACHS [facility]; Protocol Last Admin: 04/13/19 11:39 Dose: Not Given Insulin Detemir (Levemir Vial) 20 units SQ HS [facility] Last Admin: 04/12/19 22:29 Dose: 20 units Levothyroxine Sodium (Synthroid -) 88 mcg PO AM [facility] Last Admin: 04/13/19 06:27 Dose: 88 mcg Pantoprazole Sodium (Protonix -) 40 mg PO DAILY [facility] Last Admin: 04/13/19 10:14 Dose: 40 mg Polyethylene Glycol (Miralax (For Daily Use) -) 17 gm PO DAILY [facility] Last Admin: 04/13/19 10:13 Dose: 17 gm Ranolazine (Ranexa -) 500 mg PO BID [facility] Last Admin: 04/13/19 10:25 Dose: 500 mg Senna (Senna -) 2 tab PO HS PRN PRN Reason: CONSTIPATION - Objective Vital Signs: Vital Signs Temperature 98.5 F 04/13/19 06:00 Pulse Rate 56 L 04/13/19 06:00 Respiratory Rate 20 04/13/19 06:00 Blood Pressure 189/72 H 04/13/19 06:00 O2 Sat by Pulse Oximetry (%) 100 04/12/19 16:20 Constitutional: Yes: Mild Distress Cardiovascular: Yes: S1, S2 Respiratory: Yes: Regular, CTA Bilaterally Gastrointestinal: Yes: Soft, Tenderness Musculoskeletal: Yes: WNL Extremities: Yes: Other Neurological: Yes: Alert, Oriented Psychiatric: Yes: Alert, Oriented Labs: CBC, BMP 04/13/19 09:40 04/13/19 09:40 INR, PTT INR 1.11 (0.83-1.09) H 04/06/19 13:20 Assessment/Plan Problem List - Problems (1) Cellulitis Code(s): L03.90 - CELLULITIS, UNSPECIFIED (2) S/P CABG (coronary artery bypass graft) Code(s): Z95.1 - PRESENCE OF AORTOCORONARY BYPASS GRAFT (3) Type 2 diabetes mellitus Code(s): E11.9 - TYPE 2 DIABETES MELLITUS WITHOUT COMPLICATIONS Qualifiers: Diabetes mellitus computer terminal operator insulin use: unspecified computer terminal operator insulin use status Diabetes mellitus complication status: with neurologic complications Diabetes mellitus complication detail: with polyneuropathy Qualified Code(s): E11.42 - Type 2 diabetes mellitus with diabetic polyneuropathy (4) COPD (chronic obstructive pulmonary disease) Assessment/Plan: cookie prn Code(s): J44.9 - CHRONIC OBSTRUCTIVE PULMONARY DISEASE, UNSPECIFIED (5) CAD (coronary artery disease) Code(s): I25.10 - ATHSCL HEART DISEASE OF [place] CORONARY ARTERY W/O ANG PCTRS Qualifiers: Coronary Disease-Associated Artery/Lesion type: [place] artery [place] vs. transplanted heart: [place] heart Associated angina: with unstable angina Qualified Code(s): I25.110 - Atherosclerotic heart disease of [place] coronary artery with unstable angina pectoris (6) CHF (congestive heart failure) Code(s): I50.9 - HEART FAILURE, UNSPECIFIED Qualifiers: Heart failure type: unspecified Heart failure chronicity: acute on chronic Qualified Code(s): I50.9 - Heart failure, unspecified (7) CKD (chronic kidney disease) stage 3, GFR 30-59 ml/min Code(s): N18.3 - CHRONIC KIDNEY DISEASE, STAGE 3 (MODERATE) (8) Prophylactic measure Code(s): Z29.9 - ENCOUNTER FOR PROPHYLACTIC MEASURES, UNSPECIFIED plan cx result noted post op continue abx will d/w the team
[2019-04-13] MEDS: DOCUSATE SODIUM 100 MG CAPSULE (FP) PO SCH ×2 (14:05→21:45)
[2019-04-13] MEDS ORDERED: LORazepam 0.5 MG TABLET PO PRN (15:36)
--- NOTE | 2019-04-13 16:33 | PN ---
Progress Note, Physician History of Present Illness: Pt seen and examined at bedside. She had the angio. She denies shortness of breath. - Current Medication List Current Medications: Active Medications Acetaminophen (Tylenol -) 650 mg PO Q6H PRN PRN Reason: FEVER Last Admin: 04/13/19 06:28 Dose: 650 mg Acetylcysteine (Mucomyst 20 Oral / Inh Use Only*) [address] [facility] Stop: 04/13/19 19:59 Last Admin: 04/13/19 04:03 Dose: Not Given Al Hydroxide/Mg Hydroxide (Mylanta Oral Suspension -) 30 ml PO Q6HPO PRN PRN Reason: DYSPEPSIA Albuterol Sulfate (Ventolin 0.083% Nebulizer Soln -) [address] [facility] Last Admin: 04/13/19 11:20 Dose: 1 amp Aspirin (Asa -) [address] [facility] Last Admin: 04/13/19 10:13 Dose: 81 mg Atorvastatin Calcium (Lipitor -) [address] [facility] Last Admin: 04/12/19 22:29 Dose: 40 mg Carvedilol (Coreg -) 12.[address] [facility] Last Admin: 04/13/19 10:13 Dose: 12.5 mg Clopidogrel Bisulfate (Plavix -) [address] [facility] Last Admin: 04/13/19 10:14 Dose: 75 mg Docusate Sodium (Colace -) [address] [facility] Last Admin: 04/13/19 14:05 Dose: 100 mg Ezetimibe (Zetia -) [address] [facility] Last Admin: 04/13/19 10:15 Dose: 10 mg Gabapentin (Neurontin -) [address] [facility] Last Admin: 04/13/19 14:06 Dose: 600 mg Heparin Sodium (Porcine) (Heparin -) 5,[address] [facility] Last Admin: 04/13/19 10:15 Dose: 5,000 unit Sodium Chloride (Normal Saline -) 1,000 mls @ 75 mls/hr IV ASDIR [facility] Stop: 04/13/19 23:59 Last Admin: 04/13/19 16:29 Dose: Not Given Vancomycin HCl (Vancomycin (Pre-Docked)) 1,000 mg in 250 mls @ 166.667 mls/hr IVPB 0200,1400 [facility]; Protocol Last Admin: 04/13/19 14:06 Dose: 166.667 mls/hr Insulin Aspart (Novolog Vial Sliding Scale -) [address] [facility]; Protocol Last Admin: 04/13/19 11:39 Dose: Not Given Insulin Detemir (Levemir Vial) [address] [facility] Last Admin: 04/12/19 22:29 Dose: 20 units Levothyroxine Sodium (Synthroid -) [address] [facility] Last Admin: 04/13/19 06:27 Dose: 88 mcg Lorazepam (Ativan -) 0.5 mg PO BID PRN PRN Reason: ANXIETY Pantoprazole Sodium (Protonix -) [address] [facility] Last Admin: 04/13/19 10:14 Dose: 40 mg Polyethylene Glycol (Miralax (For Daily Use) -) [address] [facility] Last Admin: 04/13/19 10:13 Dose: 17 gm Ranolazine (Ranexa -) [address] [facility] Last Admin: 04/13/19 10:25 Dose: 500 mg Senna (Senna -) 2 tab PO HS PRN PRN Reason: CONSTIPATION - Objective Vital Signs: Vital Signs Temperature 98.0 F 04/13/19 14:00 Pulse Rate 65 04/13/19 14:00 Respiratory Rate 20 04/13/19 14:00 Blood Pressure 140/65 04/13/19 14:00 O2 Sat by Pulse Oximetry (%) 100 04/12/19 16:20 Constitutional: Yes: Calm Eyes: Yes: Conjunctiva Clear HENT: Yes: Atraumatic Neck: Yes: Supple Cardiovascular: Yes: S1, S2 Respiratory: Yes: CTA Bilaterally Gastrointestinal: Yes: Soft, Abdomen, Obese Genitourinary: Yes: WNL Edema: No Neurological: Yes: Oriented Labs: CBC, BMP 04/13/19 09:40 04/13/19 09:40 INR, PTT INR 1.11 (0.83-1.09) H 04/06/19 13:20 Problem List - Problems (1) HAROLDO (acute kidney injury) Code(s): N17.9 - ACUTE KIDNEY FAILURE, UNSPECIFIED (2) Acute on chronic systolic (congestive) heart failure Code(s): I50.23 - ACUTE ON CHRONIC SYSTOLIC (CONGESTIVE) HEART FAILURE (3) Anemia Code(s): D64.9 - ANEMIA, UNSPECIFIED (4) Cellulitis Code(s): L03.90 - CELLULITIS, UNSPECIFIED Assessment/Plan Current Medications Generic Name Dose Route Start Last Admin Trade Name Freq PRN Reason Stop Dose Admin Acetaminophen 650 mg 04/12/19 12:52 04/13/19 06:28 Tylenol - PO 650 mg Q6H PRN Administration FEVER Acetylcysteine 600 mg 04/12/19 20:00 04/13/19 04:03 Mucomyst 20 Oral / Inh Use Only* PO 04/13/19 19:59 Not Given RBID [facility] Al Hydroxide/Mg Hydroxide 30 ml 04/13/19 08:42 Mylanta Oral Suspension - PO Q6HPO PRN DYSPEPSIA Albuterol Sulfate 1 amp 04/12/19 16:00 04/13/19 11:20 Ventolin 0.083% Nebulizer Soln - NEB 1 amp RQID [facility] Administration Aspirin 81 mg 04/13/19 10:00 04/13/19 10:13 Asa - PO 81 mg DAILY [facility] Administration Atorvastatin Calcium 40 mg 04/12/19 22:00 04/12/19 22:29 Lipitor - PO 40 mg HS [facility] Administration Carvedilol 12.5 mg 04/12/19 22:00 04/13/19 10:13 Coreg - PO 12.5 mg BID [facility] Administration Clopidogrel Bisulfate 75 mg 04/13/19 10:00 04/13/19 10:14 Plavix - PO 75 mg DAILY [facility] Administration Docusate Sodium 100 mg 04/13/19 14:00 04/13/19 14:05 Colace - PO 100 mg TID [facility] Administration Ezetimibe 10 mg 04/13/19 10:00 04/13/19 10:15 Zetia - PO 10 mg DAILY [facility] Administration Gabapentin 600 mg 04/12/19 14:00 04/13/19 14:06 Neurontin - PO 600 mg TID [facility] Administration Heparin Sodium (Porcine) 5,000 unit 04/12/19 22:00 04/13/19 10:15 Heparin - SQ 5,000 unit BID [facility] Administration Sodium Chloride 1,000 mls @ 75 mls/hr 04/12/19 12:52 04/13/19 16:29 Normal Saline - IV 04/13/19 23:59 Not Given ASDIR [facility] Vancomycin HCl 1,000 mg in 250 mls @ 166.667 mls/hr 04/12/19 14:00 04/13/19 14:06 Vancomycin (Pre-Docked) IVPB 166.667 mls/hr 0200,1400 [facility] Administration Protocol Insulin Aspart 1 vial 04/12/19 16:30 04/13/19 11:39 Novolog Vial Sliding Scale - SQ Not Given ACHS [facility] Protocol Insulin Detemir 20 units 04/12/19 22:00 04/12/19 22:29 Levemir Vial SQ 20 units HS [facility] Administration Levothyroxine Sodium 88 mcg 04/13/19 07:00 04/13/19 06:27 Synthroid - PO 88 mcg AM [facility] Administration Lorazepam 0.5 mg 04/13/19 15:36 Ativan - PO BID PRN ANXIETY Pantoprazole Sodium 40 mg 04/13/19 10:00 04/13/19 10:14 Protonix - PO 40 mg DAILY [facility] Administration Polyethylene Glycol 17 gm 04/13/19 10:00 04/13/19 10:13 Miralax (For Daily Use) - PO 17 gm DAILY [facility] Administration Ranolazine 500 mg 04/12/19 22:00 04/13/19 10:25 Ranexa - PO 500 mg BID [facility] Administration Senna 2 tab 04/13/19 22:00 Senna - PO HS PRN CONSTIPATION Impression 1. hyponatremia 2. cellulitis 3. htn 4. chf 5. cad 6. ckd 7. hx cva 8. PAD Plan - d/c fluids - repeat labs in am - avoid nsaids - lolly on hold for now
[2019-04-13] MEDS: ATORVASTATIN CA 40 MG TABLET (FP) PO SCH (21:44)
[2019-04-13] MEDS: INSULIN (LEVEMIR) 100 UNITS/ML UNITS SQ SCH (21:46)
[2019-04-13] MEDS ORDERED: SENNOSIDES 8.6MG TABLET (FP) PO PRN (22:00)
[2019-04-14] MEDS: VANCOMYCIN 1 GRAM (PRE-DOCKED) 1,000 MG/250 ML BAG IVPB SCH ×2 (01:47→14:12)
[2019-04-14] MEDS: INSULIN SLIDING SCALE (NOVOLOG) 1 VIAL SQ SCH ×4 (06:27→22:17)
[2019-04-14] MEDS: DOCUSATE SODIUM 100 MG CAPSULE (FP) PO SCH ×3 (06:28→22:27)
[2019-04-14] MEDS: LEVOTHYROXINE NA 88 MCG TABLET (FP) PO SCH (06:28)
[2019-04-14] MEDS: GABAPENTIN 300 MG CAPSULE PO SCH ×3 (06:30→22:14)
[2019-04-14] MEDS ORDERED: INSULIN (LEVEMIR) 100 UNITS/ML UNITS SQ ONE (06:41)
[2019-04-14] MEDS: ALBUTEROL SO4 0.083% IH SOL 2.5 MG/3 ML VIAL.NEB. NEB SCH ×4 (08:20→20:52)
[2019-04-14 08:59] LABS: EOS % 2.1 % (0-4.5); HEMATOCRIT 27.8 % (32.4-45.2); HEMOGLOBIN 9.3 GM/dL (10.7-15.3); LYMPH % 21.3 % (8-40); MCH 30.7 pg (25.7-33.7); MCHC 33.6 g/dl (32.0-36.0); MEAN CELL VOLUME 91.2 fl (80-96); MONO % 10.4 % (3.8-10.2); NEUT % 65.2 % (42.8-82.8); PLATELET COUNT 307 K/MM3 (134-434); RBC 3.05 M/mm3 (3.60-5.2); RDW 13.6 % (11.6-15.6); WHITE BLOOD COUNT 8.2 K/mm3 (4.0-10.0)
[2019-04-14 09:31] LABS: ALBUMIN 2.9 g/dl (3.4-5.0); BILIRUBIN,TOTAL 0.6 mg/dL (0.2-1); CALCIUM 8.9 mg/dL (8.5-10.1); CREATININE 0.9 mg/dL (0.55-1.3); MAGNESIUM 2.4 mg/dL (1.8-2.4); TOT PROT 6.9 g/dl (6.4-8.2)
[2019-04-14] MEDS: HEPARIN NA (PORCINE) 5,000 UNITS/ML 1ML VIAL SQ SCH ×2 (09:41→22:15)
[2019-04-14] MEDS: ASPIRIN 81 MG CHEWABLE TABLETS PO SCH (09:41)
[2019-04-14] MEDS: CARVEDILOL 12.5 MG TABLET (FP) PO SCH ×2 (09:41→22:16)
[2019-04-14] MEDS: CLOPIDOGREL BISULFATE 75 MG TABLET (FP) PO SCH (09:42)
[2019-04-14] MEDS: EZETIMIBE 10 MG TABLET (FP) PO SCH (09:42)
[2019-04-14] MEDS: POLYETHYLENE GLYCOL 3350 119 GM BTL PO SCH (09:42)
[2019-04-14] MEDS: RANOLAZINE E.R. 500 MG TABLET (FP) PO SCH ×2 (09:42→22:16)
[2019-04-14] MEDS: PANTOPRAZOLE 40 MG TABLET PO SCH (09:42)
--- NOTE | 2019-04-14 10:11 | PN ---
Progress Note, Physician History of Present Illness: stable no complaints - Current Medication List Current Medications: Active Medications Acetaminophen (Tylenol -) 650 mg PO Q6H PRN PRN Reason: FEVER Last Admin: 04/13/19 06:28 Dose: 650 mg Al Hydroxide/Mg Hydroxide (Mylanta Oral Suspension -) 30 ml PO Q6HPO PRN PRN Reason: DYSPEPSIA Albuterol Sulfate (Ventolin 0.083% Nebulizer Soln -) 1 amp NEB RQID [facility] Last Admin: 04/14/19 08:20 Dose: 1 amp Aspirin (Asa -) 81 mg PO DAILY [facility] Last Admin: 04/14/19 09:41 Dose: 81 mg Atorvastatin Calcium (Lipitor -) 40 mg PO HS [facility] Last Admin: 04/13/19 21:44 Dose: 40 mg Carvedilol (Coreg -) 12.5 mg PO BID [facility] Last Admin: 04/14/19 09:41 Dose: 12.5 mg Clopidogrel Bisulfate (Plavix -) 75 mg PO DAILY [facility] Last Admin: 04/14/19 09:42 Dose: 75 mg Docusate Sodium (Colace -) 100 mg PO TID [facility] Last Admin: 04/14/19 06:28 Dose: 100 mg Ezetimibe (Zetia -) 10 mg PO DAILY [facility] Last Admin: 04/14/19 09:42 Dose: 10 mg Gabapentin (Neurontin -) 600 mg PO TID [facility] Last Admin: 04/14/19 06:30 Dose: 600 mg Heparin Sodium (Porcine) (Heparin -) 5,000 unit SQ BID [facility] Last Admin: 04/14/19 09:41 Dose: 5,000 unit Vancomycin HCl (Vancomycin (Pre-Docked)) 1,000 mg in 250 mls @ 166.667 mls/hr IVPB 0200,1400 [facility]; Protocol Last Admin: 04/14/19 01:47 Dose: 166.667 mls/hr Insulin Aspart (Novolog Vial Sliding Scale -) 1 vial SQ [facility]; Protocol Last Admin: 04/14/19 06:27 Dose: Not Given Insulin Detemir (Levemir Vial) 20 units SQ [facility] Last Admin: 04/13/19 21:46 Dose: 20 units Levothyroxine Sodium (Synthroid -) 88 mcg PO AM [facility] Last Admin: 04/14/19 06:28 Dose: 88 mcg Lorazepam (Ativan -) 0.5 mg PO BID PRN PRN Reason: ANXIETY Pantoprazole Sodium (Protonix -) 40 mg PO DAILY [facility] Last Admin: 04/14/19 09:42 Dose: 40 mg Polyethylene Glycol (Miralax (For Daily Use) -) 17 gm PO DAILY [facility] Last Admin: 04/14/19 09:42 Dose: 17 gm Ranolazine (Ranexa -) 500 mg PO BID [facility] Last Admin: 04/14/19 09:42 Dose: 500 mg Senna (Senna -) 2 tab PO HS PRN PRN Reason: CONSTIPATION - Objective Vital Signs: Vital Signs Temperature 97.4 F L 04/14/19 04:00 Pulse Rate 48 L 04/14/19 04:00 Respiratory Rate 20 04/14/19 04:00 Blood Pressure 114/44 L 04/14/19 04:00 O2 Sat by Pulse Oximetry (%) 100 04/12/19 16:20 Constitutional: Yes: No Distress, Calm Cardiovascular: Yes: S1, S2 Respiratory: Yes: Regular, CTA Bilaterally Gastrointestinal: Yes: Normal Bowel Sounds, Soft Musculoskeletal: Yes: WNL Neurological: Yes: Alert, Oriented Psychiatric: Yes: Alert, Oriented Labs: CBC, BMP 04/14/19 08:05 04/14/19 08:05 INR, PTT INR 1.11 (0.83-1.09) H 04/06/19 13:20 Assessment/Plan Problem List - Problems (1) Cellulitis Code(s): L03.90 - CELLULITIS, UNSPECIFIED (2) S/P CABG (coronary artery bypass graft) Code(s): Z95.1 - PRESENCE OF AORTOCORONARY BYPASS GRAFT (3) Type 2 diabetes mellitus Code(s): E11.9 - TYPE 2 DIABETES MELLITUS WITHOUT COMPLICATIONS Qualifiers: Diabetes mellitus continuous churn buttermaker insulin use: unspecified continuous churn buttermaker insulin use status Diabetes mellitus complication status: with neurologic complications Diabetes mellitus complication detail: with polyneuropathy Qualified Code(s): E11.42 - Type 2 diabetes mellitus with diabetic polyneuropathy (4) COPD (chronic obstructive pulmonary disease) Assessment/Plan: duonebs prn Code(s): J44.9 - CHRONIC OBSTRUCTIVE PULMONARY DISEASE, UNSPECIFIED (5) CAD (coronary artery disease) Code(s): I25.10 - ATHSCL HEART DISEASE OF [place] CORONARY ARTERY W/O ANG PCTRS Qualifiers: Coronary Disease-Associated Artery/Lesion type: [place] artery [place] vs. transplanted heart: [place] heart Associated angina: with unstable angina Qualified Code(s): I25.110 - Atherosclerotic heart disease of [place] coronary artery with unstable angina pectoris (6) CHF (congestive heart failure) Code(s): I50.9 - HEART FAILURE, UNSPECIFIED Qualifiers: Heart failure type: unspecified Heart failure chronicity: acute on chronic Qualified Code(s): I50.9 - Heart failure, unspecified (7) CKD (chronic kidney disease) stage 3, GFR 30-59 ml/min Code(s): N18.3 - CHRONIC KIDNEY DISEASE, STAGE 3 (MODERATE) (8) Prophylactic measure Code(s): Z29.9 - ENCOUNTER FOR PROPHYLACTIC MEASURES, UNSPECIFIED plan continue current mgmt rest as per the team
[2019-04-14] MEDS ORDERED: BISACODYL 10 MG SUPP.RECT RC ONE (10:39)
--- NOTE | 2019-04-14 12:38 | OP ---
DATE OF OPERATION: 04/12/2019 SURGEON: Pravin Lance MD PROCEDURE: Revascularization of left popliteal artery with angioplasty, ultrasound-guided cannulation of the right common femoral artery and left anterior tibial arteries, 3rd-order catheterization lower extremity arterial. PREOPERATIVE DIAGNOSIS: Gangrene, left 4th toe. POSTOPERATIVE DIAGNOSIS: Gangrene, left 4th toe. ANESTHESIA: Fractional. ANESTHESIOLOGIST: Sylvain Stringer CRNA OPERATIVE FINDINGS: The distal aorta, bilateral iliacs, and bilateral common femoral arteries were patent. There was a patent left superficial femoral artery. There was 80% stenosis of the proximal popliteal artery. The left peroneal artery was patent with collateral runoff to the foot. Both anterior and posterior tibial arteries were chronically occluded. Reconstitution of a distal anterior tibial artery with runoff to the dorsalis pedis artery was visualized. DESCRIPTION OF PROCEDURE: Following routine patient identification with side and site verification, intravenous sedation was established. The right groin was prepped with ChloraPrep. Time-out was performed. Using real time ultrasound imaging, the right common femoral artery was identified, and a site for cannulation proximal to the bifurcation was chosen. Lidocaine was infiltrated in the skin over the artery, and the artery was cannulated under ultrasound guidance. With a micropuncture needle, a wire was passed proximally and the needle exchanged for a 5-[place] catheter. An angle-tip wire was then advanced into the abdominal aorta and the catheter exchanged for a 5-[place] sheath. An Omni Flush catheter was then advanced over the wire, and angiography of the distal aorta and iliac arteries obtained using dilute contrast with digital subtraction technique. The wire was re-introduced through the catheter into the left common iliac artery and distally to the level of the femoral artery. The catheter was advanced over the wire to the left common femoral artery and the table and C-arm repositioned. Angiography of the left lower extremity was then obtained with the results noted above. Wire was then advanced distally through the superficial femoral artery to the level of the knee. The sheath was exchanged over the wire for a 90-cm 5-[place] sheath and the tip positioned in the distal superficial femoral artery. The patient was systemically heparinized. An angle-tip wire and catheter were then advanced distal through the popliteal stenosis and into the proximal anterior tibial artery. Attempts to pass the wire and catheter distally in the anterior tibial artery were unsuccessful. The foot was exposed and prepped with ChloraPrep. The distal anterior tibial artery was identified with ultrasound, and using ultrasound guidance, micropuncture needle was used to cannulate the distal anterior tibial artery. A microwire was advanced proximally and a small catheter advanced over the wire. Contrast was injected through the catheter to visualize the anterior tibial artery. Attempts to pass the catheter and wire proximally were unsuccessful, and the catheter and wire were removed. Pressure was held until bleeding ceased. The popliteal artery was then treated with balloon angioplasty using a 5-mm x 40-cm balloon, which was left inflated for 2 minutes. Repeat imaging revealed improvement in the degree of stenosis to less than 10%. The wire and sheath were then pulled back over the aortic bifurcation and the wire advanced into the abdominal aorta. An angiogram of the right common femoral artery was obtained to check cannulation site. The sheath was then removed and a short 5-[place] sheath placed, but during this, the wire became dislodge. Therefore, the sheath was removed and pressure applied in the groin. Protamine was administered and pressure applied until the bleeding stopped from the groin. A sterile dressing was applied, and the patient was taken to the recovery room in stable condition. May [id number]
--- NOTE | 2019-04-14 13:18 | PN ---
Progress Note, Physician Chief Complaint: FUV left foot s/p angioplasty. - Current Medication List Current Medications: Active Medications Acetaminophen (Tylenol -) 650 mg PO Q6H PRN PRN Reason: FEVER Last Admin: 04/13/19 06:28 Dose: 650 mg Al Hydroxide/Mg Hydroxide (Mylanta Oral Suspension -) 30 ml PO Q6HPO PRN PRN Reason: DYSPEPSIA Albuterol Sulfate (Ventolin 0.083% Nebulizer Soln -) 1 amp NEB RQID [facility] Last Admin: 04/14/19 11:55 Dose: 1 amp Aspirin (Asa -) 81 mg PO DAILY [facility] Last Admin: 04/14/19 09:41 Dose: 81 mg Atorvastatin Calcium (Lipitor -) 40 mg PO HS [facility] Last Admin: 04/13/19 21:44 Dose: 40 mg Carvedilol (Coreg -) 12.5 mg PO BID [facility] Last Admin: 04/14/19 09:41 Dose: 12.5 mg Clopidogrel Bisulfate (Plavix -) 75 mg PO DAILY [facility] Last Admin: 04/14/19 09:42 Dose: 75 mg Docusate Sodium (Colace -) 100 mg PO TID [facility] Last Admin: 04/14/19 06:28 Dose: 100 mg Ezetimibe (Zetia -) 10 mg PO DAILY [facility] Last Admin: 04/14/19 09:42 Dose: 10 mg Gabapentin (Neurontin -) 600 mg PO TID [facility] Last Admin: 04/14/19 06:30 Dose: 600 mg Heparin Sodium (Porcine) (Heparin -) 5,000 unit SQ BID [facility] Last Admin: 04/14/19 09:41 Dose: 5,000 unit Vancomycin HCl (Vancomycin (Pre-Docked)) 1,000 mg in 250 mls @ 166.667 mls/hr IVPB 0200,1400 [facility]; Protocol Last Admin: 04/14/19 01:47 Dose: 166.667 mls/hr Insulin Aspart (Novolog Vial Sliding Scale -) 1 vial SQ ACHS [facility]; Protocol Last Admin: 04/14/19 12:05 Dose: Not Given Insulin Detemir (Levemir Vial) 20 units SQ HS [facility] Last Admin: 04/13/19 21:46 Dose: 20 units Levothyroxine Sodium (Synthroid -) 88 mcg PO AM [facility] Last Admin: 04/14/19 06:28 Dose: 88 mcg Lorazepam (Ativan -) 0.5 mg PO BID PRN PRN Reason: ANXIETY Pantoprazole Sodium (Protonix -) 40 mg PO DAILY [facility] Last Admin: 04/14/19 09:42 Dose: 40 mg Polyethylene Glycol (Miralax (For Daily Use) -) 17 gm PO DAILY [facility] Last Admin: 04/14/19 09:42 Dose: 17 gm Ranolazine (Ranexa -) 500 mg PO BID [facility] Last Admin: 04/14/19 09:42 Dose: 500 mg Senna (Senna -) 2 tab PO HS PRN PRN Reason: CONSTIPATION - Objective Vital Signs: Vital Signs Temperature 98 F 04/14/19 08:00 Pulse Rate 54 L 04/14/19 08:00 Respiratory Rate 18 04/14/19 08:00 Blood Pressure 142/64 04/14/19 08:00 O2 Sat by Pulse Oximetry (%) 98 04/14/19 09:00 Wound/Incision: Yes: Other (wound left foot demarcating, +cellulitis improved, - gangarene, +improved duskiness of toes left foot) Labs: CBC, BMP 04/14/19 08:05 04/14/19 08:05 INR, PTT INR 1.11 (0.83-1.09) H 04/06/19 13:20 Assessment/Plan cellulitis 4th toe left improved wound 4th toe left improving om pvd After evaluation today believe patient maybe able to save the toe(s) left foot. May be dc from Podiatry standpoint to home for Wound care, HBO. Will follow till DC. Rest of care as per team.
--- NOTE | 2019-04-14 13:22 | PN ---
Progress Note (short form) - Note Progress Note: PULMONARY Appears comfortable in bed finished neb VSS/afebrile Gen: NAD at rest Heart: RRR Lung: decreased breath sounds at the bases Abd: soft, nontender Ext: no edema Chart reviewed A/P Acute on Chronic Systolic Heart Failure CAD s/p CABG Pulmonary HTN Acute on Chronic Renal Failure HTN DM PAD L Toe Osteomyelitis Hypothyroidism Anemia Hyponatremia - antibiotics per ID - bowel regimen - monitor lytes - monitor urine output, creatinine - daily weights - O2 to keep SpO2 >905 - DVT prophylaxis Angela ALFARO MD
--- NOTE | 2019-04-14 15:42 | PN ---
Progress Note, Physician History of Present Illness: Pt seen and examined at bedside. No new complaints. - Current Medication List Current Medications: Active Medications Acetaminophen (Tylenol -) 650 mg PO Q6H PRN PRN Reason: FEVER Last Admin: 04/13/19 06:28 Dose: 650 mg Al Hydroxide/Mg Hydroxide (Mylanta Oral Suspension -) 30 ml PO Q6HPO PRN PRN Reason: DYSPEPSIA Albuterol Sulfate (Ventolin 0.083% Nebulizer Soln -) 1 amp NEB RQID [facility] Last Admin: 04/14/19 11:55 Dose: 1 amp Aspirin (Asa -) 81 mg PO DAILY [facility] Last Admin: 04/14/19 09:41 Dose: 81 mg Atorvastatin Calcium (Lipitor -) 40 mg PO HS [facility] Last Admin: 04/13/19 21:44 Dose: 40 mg Carvedilol (Coreg -) 12.5 mg PO BID [facility] Last Admin: 04/14/19 09:41 Dose: 12.5 mg Clopidogrel Bisulfate (Plavix -) 75 mg PO DAILY [facility] Last Admin: 04/14/19 09:42 Dose: 75 mg Docusate Sodium (Colace -) 100 mg PO TID [facility] Last Admin: 04/14/19 14:12 Dose: 100 mg Ezetimibe (Zetia -) 10 mg PO DAILY [facility] Last Admin: 04/14/19 09:42 Dose: 10 mg Gabapentin (Neurontin -) 600 mg PO TID [facility] Last Admin: 04/14/19 14:12 Dose: 600 mg Heparin Sodium (Porcine) (Heparin -) 5,000 unit SQ BID [facility] Last Admin: 04/14/19 09:41 Dose: 5,000 unit Vancomycin HCl (Vancomycin (Pre-Docked)) 1,000 mg in 250 mls @ 166.667 mls/hr IVPB 0200,1400 [facility]; Protocol Last Admin: 04/14/19 14:12 Dose: 166.667 mls/hr Insulin Aspart (Novolog Vial Sliding Scale -) 1 vial SQ ACHS [facility]; Protocol Last Admin: 04/14/19 12:05 Dose: Not Given Insulin Detemir (Levemir Vial) 20 units SQ HS [facility] Last Admin: 04/13/19 21:46 Dose: 20 units Levothyroxine Sodium (Synthroid -) 88 mcg PO AM [facility] Last Admin: 04/14/19 06:28 Dose: 88 mcg Lorazepam (Ativan -) 0.5 mg PO BID PRN PRN Reason: ANXIETY Pantoprazole Sodium (Protonix -) 40 mg PO DAILY [facility] Last Admin: 04/14/19 09:42 Dose: 40 mg Polyethylene Glycol (Miralax (For Daily Use) -) 17 gm PO DAILY [facility] Last Admin: 04/14/19 09:42 Dose: 17 gm Ranolazine (Ranexa -) 500 mg PO BID [facility] Last Admin: 04/14/19 09:42 Dose: 500 mg Senna (Senna -) 2 tab PO HS PRN PRN Reason: CONSTIPATION - Objective Vital Signs: Vital Signs Temperature 98 F 04/14/19 08:00 Pulse Rate 54 L 04/14/19 08:00 Respiratory Rate 18 04/14/19 08:00 Blood Pressure 142/64 04/14/19 08:00 O2 Sat by Pulse Oximetry (%) 98 04/14/19 09:00 Constitutional: Yes: Calm Eyes: Yes: Conjunctiva Clear HENT: Yes: Atraumatic Cardiovascular: Yes: S1, S2 Respiratory: Yes: CTA Bilaterally Gastrointestinal: Yes: Soft, Abdomen, Obese Genitourinary: Yes: WNL Musculoskeletal: Yes: WNL Edema: Yes Edema: LLE: Trace, RLE: Trace Neurological: Yes: Oriented Psychiatric: Yes: Oriented Labs: CBC, BMP 04/14/19 08:05 04/14/19 08:05 INR, PTT INR 1.11 (0.83-1.09) H 04/06/19 13:20 Problem List - Problems (1) HAROLDO (acute kidney injury) Code(s): N17.9 - ACUTE KIDNEY FAILURE, UNSPECIFIED (2) Acute on chronic systolic (congestive) heart failure Code(s): I50.23 - ACUTE ON CHRONIC SYSTOLIC (CONGESTIVE) HEART FAILURE (3) Anemia Code(s): D64.9 - ANEMIA, UNSPECIFIED (4) Cellulitis Code(s): L03.90 - CELLULITIS, UNSPECIFIED Assessment/Plan Current Medications Generic Name Dose Route Start Last Admin Trade Name Freq PRN Reason Stop Dose Admin Acetaminophen 650 mg 04/12/19 12:52 04/13/19 06:28 Tylenol - PO 650 mg Q6H PRN Administration FEVER Al Hydroxide/Mg Hydroxide 30 ml 04/13/19 08:42 Mylanta Oral Suspension - PO Q6HPO PRN DYSPEPSIA Albuterol Sulfate 1 amp 04/12/19 16:00 04/14/19 11:55 Ventolin 0.083% Nebulizer Soln - NEB 1 amp RQID [facility] Administration Aspirin 81 mg 04/13/19 10:00 04/14/19 09:41 Asa - PO 81 mg DAILY [facility] Administration Atorvastatin Calcium 40 mg 04/12/19 22:00 04/13/19 21:44 Lipitor - PO 40 mg HS [facility] Administration Carvedilol 12.5 mg 04/12/19 22:00 04/14/19 09:41 Coreg - PO 12.5 mg BID [facility] Administration Clopidogrel Bisulfate 75 mg 04/13/19 10:00 04/14/19 09:42 Plavix - PO 75 mg DAILY [facility] Administration Docusate Sodium 100 mg 04/13/19 14:00 04/14/19 14:12 Colace - PO 100 mg TID [facility] Administration Ezetimibe 10 mg 04/13/19 10:00 04/14/19 09:42 Zetia - PO 10 mg DAILY [facility] Administration Gabapentin 600 mg 04/12/19 14:00 04/14/19 14:12 Neurontin - PO 600 mg TID [facility] Administration Heparin Sodium (Porcine) 5,000 unit 04/12/19 22:00 04/14/19 09:41 Heparin - SQ 5,000 unit BID [facility] Administration Vancomycin HCl 1,000 mg in 250 mls @ 166.667 mls/hr 04/12/19 14:00 04/14/19 14:12 Vancomycin (Pre-Docked) IVPB 166.667 mls/hr 0200,1400 [facility] Administration Protocol Insulin Aspart 1 vial 04/12/19 16:30 04/14/19 12:05 Novolog Vial Sliding Scale - SQ Not Given ACHS [facility] Protocol Insulin Detemir 20 units 04/12/19 22:00 04/13/19 21:46 Levemir Vial SQ 20 units HS [facility] Administration Levothyroxine Sodium 88 mcg 04/13/19 07:00 04/14/19 06:28 Synthroid - PO 88 mcg AM [facility] Administration Lorazepam 0.5 mg 04/13/19 15:36 Ativan - PO BID PRN ANXIETY Pantoprazole Sodium 40 mg 04/13/19 10:00 04/14/19 09:42 Protonix - PO 40 mg DAILY [facility] Administration Polyethylene Glycol 17 gm 04/13/19 10:00 04/14/19 09:42 Miralax (For Daily Use) - PO 17 gm DAILY [facility] Administration Ranolazine 500 mg 04/12/19 22:00 04/14/19 09:42 Ranexa - PO 500 mg BID [facility] Administration Senna 2 tab 04/13/19 22:00 Senna - PO HS PRN CONSTIPATION Impression 1. hyponatremia 2. cellulitis 3. htn 4. chf 5. cad 6. ckd 7. hx cva 8. PAD Plan - renal function stable - can restart diuretics - can restart lolly - monitor renal function - avoid nephrotoxins - avoid nsaids
--- NOTE | 2019-04-14 18:33 | PN ---
Physical Exam: SUBJECTIVE: Patient seen and examined, reports her breathing is improved. OBJECTIVE: discussed with ID, patient may need usp antibiotics via picc line likely 4 weeks total therapy for possible osteo. awaiting ID final recommendations. per podiatry patient may need amputation pre and post prior to d/c started on bowel regimen monitor pain levels/anxiety Patient is an 83 year old female with a significant past medical history of hypertension, diabetes 2, hld, CHF, GERD, neuropathy, chronic diffuse pain, hypothyroidism, chronic L great toe osteomyelitis, S/P CABG (coronary artery bypass graft)and NSTEMI. Patient presents from her doctors office for left 4th toe redness with left 4th toe ulcer and redness from this toe that extends up to her anterior left foot. She had a hospitalization 1 year ago for prior gangrene/infection to 1st toe on left foot. No recent injury or falls, no trauma of this foot. foot xray is negative for acute fracture. she is s/p angiogram with close watch on kidney function. Vital Signs Period Temp Pulse Resp BP Sys/Ibarra Pulse Ox Last 24 Hr 97.4 F-98 F 48-58 18-20 114-150/44-64 94-98 GENERAL: Awake, alert with episodes of anxiety. HEAD: Normal with no signs of trauma. EYES: Pupils equal, round and reactive to light, extraocular movements intact, sclera anicteric, conjunctiva clear. No lid lag. EARS, NOSE, THROAT: Ears normal, nares patent, oropharynx clear without exudates. Moist mucous membranes. NECK: Normal range of motion, supple without lymphadenopathy, JVD, or masses. LUNGS: diminished bilaterally HEART: Regular rate and rhythm ABDOMEN: Soft, nontender, obese abdomen MUSCULOSKELETAL: Normal range of motion at all joints. No bony deformities or tenderness. No CVA tenderness. UPPER EXTREMITIES: 2+ pulses, warm, well-perfused. No cyanosis. No clubbing. No peripheral edema. LOWER EXTREMITIES: left foot left foot appears mildly erythematous from 4th toe to the anterior of foot. left great toe with small ulcer. s/p angiogram. 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. Laboratory Results - last 24 hr 11/21/19 11/22/19 11/22/19 21:48 06:25 08:05 WBC 8.2 RBC 3.05 L Hgb 9.3 L Hct 27.8 L MCV 91.2 MCH 30.7 MCHC 33.6 RDW 13.6 Plt Count 307 MPV 8.0 Absolute Neuts (auto) 5.4 Neutrophils % 65.2 Lymphocytes % 21.3 Monocytes % 10.4 H Eosinophils % 2.1 Basophils % 1.0 Nucleated RBC % 0 Sodium Potassium Chloride Carbon Dioxide Anion Gap BUN Creatinine Est GFR (CKD-EPI)AfAm Est GFR (CKD-EPI)NonAf POC Glucometer 160 78 Random Glucose Calcium Magnesium Total Bilirubin AST ALT Alkaline Phosphatase Total Protein Albumin 04/14/19 04/14/19 04/14/19 08:05 12:04 17:43 WBC RBC Hgb Hct MCV MCH MCHC RDW Plt Count MPV Absolute Neuts (auto) Neutrophils % Lymphocytes % Monocytes % Eosinophils % Basophils % Nucleated RBC % Sodium 132 L Potassium 5.0 Chloride 98 Carbon Dioxide 30 Anion Gap 4 L BUN 16.0 Creatinine 0.9 Est GFR (CKD-EPI)AfAm 68.53 Est GFR (CKD-EPI)NonAf 59.13 POC Glucometer 116 165 Random Glucose 63 L Calcium 8.9 Magnesium 2.4 Total Bilirubin 0.6 AST 16 ALT 20 Alkaline Phosphatase 124 H Total Protein 6.9 Albumin 2.9 L Active Medications Generic Name Dose Route Start Last Admin Trade Name Freq PRN Reason Stop Dose Admin Acetaminophen 650 mg 04/12/19 12:52 04/13/19 06:28 Tylenol - PO 650 mg Q6H PRN Administration FEVER Al Hydroxide/Mg Hydroxide 30 ml 04/13/19 08:42 Mylanta Oral Suspension - PO Q6HPO PRN DYSPEPSIA Albuterol Sulfate 1 amp 04/12/19 16:00 04/14/19 15:15 Ventolin 0.083% Nebulizer Soln - NEB 1 amp RQID [facility] Administration Aspirin 81 mg 04/13/19 10:00 04/14/19 09:41 Asa - PO 81 mg DAILY [facility] Administration Atorvastatin Calcium 40 mg 04/12/19 22:00 04/13/19 21:44 Lipitor - PO 40 mg HS [facility] Administration Carvedilol 12.5 mg 04/12/19 22:00 04/14/19 09:41 Coreg - PO 12.5 mg BID [facility] Administration Clopidogrel Bisulfate 75 mg 04/13/19 10:00 04/14/19 09:42 Plavix - PO 75 mg DAILY [facility] Administration Docusate Sodium 100 mg 04/13/19 14:00 04/14/19 14:12 Colace - PO 100 mg TID [facility] Administration Ezetimibe 10 mg 04/13/19 10:00 04/14/19 09:42 Zetia - PO 10 mg DAILY [facility] Administration Furosemide 20 mg 04/15/19 10:00 Lasix - PO DAILY [facility] Gabapentin 600 mg 04/12/19 14:00 04/14/19 14:12 Neurontin - PO 600 mg TID [facility] Administration Heparin Sodium (Porcine) 5,000 unit 04/12/19 22:00 04/14/19 09:41 Heparin - SQ 5,000 unit BID [facility] Administration Vancomycin HCl 1,000 mg in 250 mls @ 166.667 mls/hr 04/12/19 14:00 04/14/19 14:12 Vancomycin (Pre-Docked) IVPB 166.667 mls/hr 0200,1400 [facility] Administration Protocol Insulin Aspart 1 vial 04/12/19 16:30 04/14/19 17:46 Novolog Vial Sliding Scale - SQ 4 units ACHS [facility] Administration Protocol Insulin Detemir 20 units 04/12/19 22:00 04/13/19 21:46 Levemir Vial SQ 20 units HS [facility] Administration Levothyroxine Sodium 88 mcg 04/13/19 07:00 04/14/19 06:28 Synthroid - PO 88 mcg AM [facility] Administration Lisinopril 2.5 mg 04/15/19 10:00 Prinivil PO DAILY [facility] Lorazepam 0.5 mg 04/13/19 15:36 Ativan - PO BID PRN ANXIETY Pantoprazole Sodium 40 mg 04/13/19 10:00 04/14/19 09:42 Protonix - PO 40 mg DAILY [facility] Administration Polyethylene Glycol 17 gm 04/13/19 10:00 04/14/19 09:42 Miralax (For Daily Use) - PO 17 gm DAILY [facility] Administration Ranolazine 500 mg 04/12/19 22:00 04/14/19 09:42 Ranexa - PO 500 mg BID [facility] Administration Senna 2 tab 04/13/19 22:00 Senna - PO HS PRN CONSTIPATION ASSESSMENT/PLAN: Problem List - Problems (1) Shortness of breath Assessment/Plan: continue on 2 liters of nasal cannula with stable oxygen saturations. abg 04/13/ with CO2 47 pre and post ordered prior to d/c pulmonary following and recommendations noted and appreciated. Code(s): R06.02 - SHORTNESS OF BREATH (2) Cellulitis Assessment/Plan: cellulitis 4th toe left/wound 4th toe left appreciate vasc consultation s/p angiogram. monitor renal function post angiogram and restart lasix/lolly once cleared by renal. . Betadine swab in between toes left foot daily. seen and evaluated by podiatry and a possible amputation considered per id, patient may need 4 weeks of antibiotic therapy as foot mri showed possible osteomyelits. Code(s): L03.90 - CELLULITIS, UNSPECIFIED (3) S/P CABG (coronary artery bypass graft) Assessment/Plan: continue home meds no chest pain Code(s): Z95.1 - PRESENCE OF AORTOCORONARY BYPASS GRAFT (4) Type 2 diabetes mellitus Assessment/Plan: novolg and levemir diabetic diet a1c 9.6 Code(s): E11.9 - TYPE 2 DIABETES MELLITUS WITHOUT COMPLICATIONS Qualifiers: Diabetes mellitus usp insulin use: unspecified usp insulin use status Diabetes mellitus complication status: with neurologic complications Diabetes mellitus complication detail: with polyneuropathy Qualified Code(s): E11.42 - Type 2 diabetes mellitus with diabetic polyneuropathy (5) COPD (chronic obstructive pulmonary disease) Assessment/Plan: duonebs prn Code(s): J44.9 - CHRONIC OBSTRUCTIVE PULMONARY DISEASE, UNSPECIFIED (6) CAD (coronary artery disease) Assessment/Plan: continue home meds Code(s): I25.10 - ATHSCL HEART DISEASE OF [place] CORONARY ARTERY W/O ANG PCTRS Qualifiers: Coronary Disease-Associated Artery/Lesion type: [place] artery [place] vs. transplanted heart: [place] heart Associated angina: with unstable angina Qualified Code(s): I25.110 - Atherosclerotic heart disease of [place] coronary artery with unstable angina pectoris (7) CHF (congestive heart failure) Assessment/Plan: monitor intake and output. on lasix 20 Code(s): I50.9 - HEART FAILURE, UNSPECIFIED Qualifiers: Heart failure type: unspecified Heart failure chronicity: acute on chronic Qualified Code(s): I50.9 - Heart failure, unspecified (8) CKD (chronic kidney disease) stage 3, GFR 30-59 ml/min Assessment/Plan: daily monitoring of kidney function appears to be at her baseline renal following Code(s): N18.3 - CHRONIC KIDNEY DISEASE, STAGE 3 (MODERATE) (9) Prophylactic measure Assessment/Plan: fen toleraring po stop ivf monitor electrolyes full code Code(s): Z29.9 - ENCOUNTER FOR PROPHYLACTIC MEASURES, UNSPECIFIED Visit type - Emergency Visit Emergency Visit: Yes ED Registration Date: 04/06/19 Care time: The patient presented to the Emergency Department on the above date and was hospitalized for further evaluation of their emergent condition. - New Patient This patient is new to me today: No - Critical Care Critical Care patient: No - Discharge Referral Referred to [facility] Med P.C.: No
[2019-04-14] MEDS ORDERED: INSULIN (NOVOLOG) ASPART 100 UNITS/ML 10ML VIAL ONE (21:54)
[2019-04-14] MEDS: ACETAMINOPHEN 325 MG TABLET (FP) PO PRN (22:14)
[2019-04-14] MEDS: ATORVASTATIN CA 40 MG TABLET (FP) PO SCH (22:15)
[2019-04-14] MEDS: INSULIN (LEVEMIR) 100 UNITS/ML UNITS SQ SCH (23:07)
[2019-04-15] MEDS: VANCOMYCIN 1 GRAM (PRE-DOCKED) 1,000 MG/250 ML BAG IVPB SCH ×2 (01:55→15:59)
[2019-04-15] MEDS: DOCUSATE SODIUM 100 MG CAPSULE (FP) PO SCH ×3 (06:34→21:14)
[2019-04-15] MEDS: GABAPENTIN 300 MG CAPSULE PO SCH ×3 (06:34→21:13)
[2019-04-15] MEDS: LEVOTHYROXINE NA 88 MCG TABLET (FP) PO SCH (06:34)
[2019-04-15] MEDS: INSULIN SLIDING SCALE (NOVOLOG) 1 VIAL SQ SCH ×4 (06:34→21:25)
--- NOTE | 2019-04-15 09:13 | PN ---
Physical Exam: SUBJECTIVE: Patient seen and examined. She has no complaints. OBJECTIVE: Vital Signs Period Temp Pulse Resp BP Sys/Ibarra Pulse Ox Last 24 Hr 97.6 F-98.2 F 51-118 18-22 152-180/66-102 94-94 GENERAL: The patient is awake, alert, and fully oriented, in no acute distress. LUNGS: Breath sounds equal, clear to auscultation bilaterally, no wheezes, no crackles, no accessory muscle use. HEART: Regular rate and rhythm, S1, S2 without murmur, rub or gallop. ABDOMEN: Obese, soft, nontender, nondistended, normoactive bowel sounds, no guarding, no rebound, no hepatosplenomegaly, no masses. EXTREMITIES: 2+ pulses, warm, well-perfused, no edema. SKIN: Warm, dry, normal turgor. Minimal erythema of dorsal surface of left foot. Laboratory Results - last 24 hr 04/14/19 04/14/19 04/14/19 08:05 12:04 17:43 Sodium 132 L Potassium 5.0 Chloride 98 Carbon Dioxide 30 Anion Gap 4 L BUN 16.0 Creatinine 0.9 Est GFR (CKD-EPI)AfAm 68.53 Est GFR (CKD-EPI)NonAf 59.13 POC Glucometer 116 165 Random Glucose 63 L Calcium 8.9 Magnesium 2.4 Total Bilirubin 0.6 AST 16 ALT 20 Alkaline Phosphatase 124 H Total Protein 6.9 Albumin 2.9 L 04/14/19 22:11 Sodium Potassium Chloride Carbon Dioxide Anion Gap BUN Creatinine Est GFR (CKD-EPI)AfAm Est GFR (CKD-EPI)NonAf POC Glucometer 184 Random Glucose Calcium Magnesium Total Bilirubin AST ALT Alkaline Phosphatase Total Protein Albumin Active Medications Generic Name Dose Route Start Last Admin Trade Name Freq PRN Reason Stop Dose Admin Acetaminophen 650 mg 04/12/19 12:52 04/14/19 22:14 Tylenol - PO 650 mg Q6H PRN Administration FEVER Al Hydroxide/Mg Hydroxide 30 ml 04/13/19 08:42 Mylanta Oral Suspension - PO Q6HPO PRN DYSPEPSIA Albuterol Sulfate 1 amp 04/12/19 16:00 04/14/19 20:52 Ventolin 0.083% Nebulizer Soln - NEB 1 amp RQID [facility] Administration Aspirin 81 mg 04/13/19 10:00 04/14/19 09:41 Asa - PO 81 mg DAILY [facility] Administration Atorvastatin Calcium 40 mg 04/12/19 22:00 04/14/19 22:15 Lipitor - PO 40 mg HS [facility] Administration Carvedilol 12.5 mg 04/12/19 22:00 04/14/19 22:16 Coreg - PO 12.5 mg BID [facility] Administration Clopidogrel Bisulfate 75 mg 04/13/19 10:00 04/14/19 09:42 Plavix - PO 75 mg DAILY [facility] Administration Docusate Sodium 100 mg 04/13/19 14:00 04/15/19 06:34 Colace - PO 100 mg TID [facility] Administration Ezetimibe 10 mg 04/13/19 10:00 04/14/19 09:42 Zetia - PO 10 mg DAILY [facility] Administration Furosemide 20 mg 04/15/19 10:00 Lasix - PO DAILY [facility] Gabapentin 600 mg 04/12/19 14:00 04/15/19 06:34 Neurontin - PO 600 mg TID [facility] Administration Heparin Sodium (Porcine) 5,000 unit 04/12/19 22:00 04/14/19 22:15 Heparin - SQ 5,000 unit BID [facility] Administration Vancomycin HCl 1,000 mg in 250 mls @ 166.667 mls/hr 04/12/19 14:00 04/15/19 01:55 Vancomycin (Pre-Docked) IVPB 166.667 mls/hr 0200,1400 [facility] Administration Protocol Insulin Aspart 1 vial 04/12/19 16:30 04/15/19 06:34 Novolog Vial Sliding Scale - SQ 6 units ACHS [facility] Administration Protocol Insulin Detemir 20 units 04/12/19 22:00 04/14/19 23:07 Levemir Vial SQ 20 units HS [facility] Administration Levothyroxine Sodium 88 mcg 04/13/19 07:00 04/15/19 06:34 Synthroid - PO 88 mcg AM [facility] Administration Lisinopril 2.5 mg 04/15/19 10:00 Prinivil PO DAILY [facility] Lorazepam 0.5 mg 04/13/19 15:36 04/14/19 22:16 Ativan - PO 0.5 mg BID PRN Administration ANXIETY Pantoprazole Sodium 40 mg 04/13/19 10:00 04/14/19 09:42 Protonix - PO 40 mg DAILY [facility] Administration Polyethylene Glycol 17 gm 04/13/19 10:00 04/14/19 09:42 Miralax (For Daily Use) - PO 17 gm DAILY [facility] Administration Ranolazine 500 mg 04/12/19 22:00 04/14/19 22:16 Ranexa - PO 500 mg BID [facility] Administration Senna 2 tab 04/13/19 22:00 Senna - PO HS PRN CONSTIPATION ASSESSMENT/PLAN: This is an 83 year old woman with a history of HTN, hyperlipidemia, CAD, PA, CABG, chronic systolic heart failure, type 2 DM, pulmonary HTN, PAD, GERD, neuropathy, chronic pain, hypothyroidism, osteomyelitis of left 1st toe who presented to the ED with an ulcer and redness of her left 4th toe. 1. Left 4th toe infected ulcer with gangrene, cellulitis, and osteomyelitis - s/p left popliteal angioplasty 04/12 - Continue Vancomycin x 4 weeks total 2. Acute on chronic systolic heart failure - Improved - Continue Coreg, lisinopril, Lasix 3. Hyponatremia - Sodium stable 4. Anemia - Hgb stable 5. CAD - Continue aspirin, Plavix, Coreg, Lipitor, Zetia, Ranexa 6. HTN - Continue Coreg, lisinopril, Lasix 7. Hyperlipidemia - Continue Lipitor, Zetia 8. Type 2 diabetes mellitus with peripheral neuropathy - Continue Levemir, Novolog sliding scale, Neurontin 9. Acute kidney injury on stage 3 CKD - Resolved 10. Pulmonary HTN 11. PAD - Continue aspirin, Plavix 12. Hypothyroidism - Continue Synthroid Visit type - Emergency Visit Emergency Visit: Yes ED Registration Date: 04/06/19 Care time: The patient presented to the Emergency Department on the above date and was hospitalized for further evaluation of their emergent condition. - New Patient This patient is new to me today: Yes Date on this admission: 04/15/19 - Critical Care Critical Care patient: No - Discharge Referral Referred to [facility] Med P.C.: No
[2019-04-15] MEDS: ALBUTEROL SO4 0.083% IH SOL 2.5 MG/3 ML VIAL.NEB. NEB SCH ×4 (09:16→20:23)
[2019-04-15] MEDS ORDERED: PT OWN MED DRAWER 7, Y5N ONE (10:29)
[2019-04-15 10:33] LABS: HEMATOCRIT 26.7 % (32.4-45.2); HEMOGLOBIN 9.1 GM/dL (10.7-15.3); MCH 31.1 pg (25.7-33.7); MEAN CELL VOLUME 91.6 fl (80-96); MEAN PLT VOLUME 8.8 fl (7.5-11.1); PLATELET COUNT 325 K/MM3 (134-434); RBC 2.91 M/mm3 (3.60-5.2); RDW 13.8 % (11.6-15.6)
[2019-04-15] MEDS: CARVEDILOL 12.5 MG TABLET (FP) PO SCH ×2 (10:33→21:14)
[2019-04-15] MEDS: EZETIMIBE 10 MG TABLET (FP) PO SCH (10:35)
[2019-04-15] MEDS: HEPARIN NA (PORCINE) 5,000 UNITS/ML 1ML VIAL SQ SCH ×2 (10:35→21:13)
[2019-04-15] MEDS: CLOPIDOGREL BISULFATE 75 MG TABLET (FP) PO SCH (10:35)
[2019-04-15] MEDS: FUROSEMIDE 20 MG TABLET (FP) PO SCH (10:35)
[2019-04-15] MEDS: ASPIRIN 81 MG CHEWABLE TABLETS PO SCH (10:35)
[2019-04-15] MEDS: PANTOPRAZOLE 40 MG TABLET PO SCH (10:35)
[2019-04-15] MEDS: LISINOPRIL 5 MG TABLET (FP) PO SCH (10:35)
[2019-04-15] MEDS: RANOLAZINE E.R. 500 MG TABLET (FP) PO SCH ×2 (10:35→21:13)
[2019-04-15] MEDS: POLYETHYLENE GLYCOL 3350 119 GM BTL PO SCH (10:38)
[2019-04-15 10:51] LABS: ALBUMIN 2.8 g/dl (3.4-5.0); BILIRUBIN,TOTAL 0.6 mg/dL (0.2-1); BLOOD UREA NITROGEN 15.4 mg/dL (7-18); CALCIUM 8.9 mg/dL (8.5-10.1); CREATININE 0.9 mg/dL (0.55-1.3); MAGNESIUM 2.4 mg/dL (1.8-2.4); POTASSIUM 5.1 mmol/L (3.5-5.1); TOT PROT 6.7 g/dl (6.4-8.2)
--- NOTE | 2019-04-15 11:11 | PN ---
Progress Note (short form) - Note Progress Note: PULMONARY Denies shortness of breath or cough. Vital Signs Period Temp Pulse Resp BP Sys/Ibarra Pulse Ox Last 24 Hr 97.5 F-98.2 F 50-118 18-22 136-180/58-102 94-97 Gen: NAD at rest Heart: RRR Lung: decreased breath sounds at the bases Abd: soft, nontender Ext: no edema CBC, BMP 04/15/19 08:15 04/15/19 08:15 Active Medications Acetaminophen (Tylenol -) 650 mg PO Q6H PRN PRN Reason: FEVER Last Admin: 04/14/19 22:14 Dose: 650 mg Al Hydroxide/Mg Hydroxide (Mylanta Oral Suspension -) 30 ml PO Q6HPO PRN PRN Reason: DYSPEPSIA Albuterol Sulfate (Ventolin 0.083% Nebulizer Soln -) 1 amp NEB RQID [facility] Last Admin: 04/15/19 09:16 Dose: 1 amp Aspirin (Asa -) 81 mg PO DAILY [facility] Last Admin: 04/15/19 10:35 Dose: 81 mg Atorvastatin Calcium (Lipitor -) 40 mg PO HS [facility] Last Admin: 04/14/19 22:15 Dose: 40 mg Carvedilol (Coreg -) 12.5 mg PO BID [facility] Last Admin: 04/15/19 10:33 Dose: Not Given Clopidogrel Bisulfate (Plavix -) 75 mg PO DAILY [facility] Last Admin: 04/15/19 10:35 Dose: 75 mg Docusate Sodium (Colace -) 100 mg PO TID [facility] Last Admin: 04/15/19 06:34 Dose: 100 mg Ezetimibe (Zetia -) 10 mg PO DAILY [facility] Last Admin: 04/15/19 10:35 Dose: 10 mg Furosemide (Lasix -) 20 mg PO DAILY [facility] Last Admin: 04/15/19 10:35 Dose: 20 mg Gabapentin (Neurontin -) 600 mg PO TID [facility] Last Admin: 04/15/19 06:34 Dose: 600 mg Heparin Sodium (Porcine) (Heparin -) 5,000 unit SQ BID [facility] Last Admin: 04/15/19 10:35 Dose: 5,000 unit Vancomycin HCl (Vancomycin (Pre-Docked)) 1,000 mg in 250 mls @ 166.667 mls/hr IVPB 0200,1400 [facility]; Protocol Last Admin: 04/15/19 01:55 Dose: 166.667 mls/hr Insulin Aspart (Novolog Vial Sliding Scale -) 1 vial SQ ACHS [facility]; Protocol Last Admin: 04/15/19 06:34 Dose: 6 units Insulin Detemir (Levemir Vial) 20 units SQ HS [facility] Last Admin: 04/14/19 23:07 Dose: 20 units Levothyroxine Sodium (Synthroid -) 88 mcg PO AM [facility] Last Admin: 04/15/19 06:34 Dose: 88 mcg Lisinopril (Prinivil) 2.5 mg PO DAILY [facility] Last Admin: 04/15/19 10:35 Dose: 2.5 mg Lorazepam (Ativan -) 0.5 mg PO BID PRN PRN Reason: ANXIETY Last Admin: 04/14/19 22:16 Dose: 0.5 mg Pantoprazole Sodium (Protonix -) 40 mg PO DAILY [facility] Last Admin: 04/15/19 10:35 Dose: 40 mg Polyethylene Glycol (Miralax (For Daily Use) -) 17 gm PO DAILY [facility] Last Admin: 04/15/19 10:38 Dose: 17 gm Ranolazine (Ranexa -) 500 mg PO BID [facility] Last Admin: 04/15/19 10:35 Dose: 500 mg Senna (Senna -) 2 tab PO HS PRN PRN Reason: CONSTIPATION A/P Acute on Chronic Systolic Heart Failure CAD s/p CABG Pulmonary HTN Acute on Chronic Renal Failure HTN DM PAD L Toe Osteomyelitis Hypothyroidism Anemia Hyponatremia - antibiotics per ID - bowel regimen - monitor lytes - monitor urine output, creatinine - daily weights - O2 to keep SpO2 >905 - DVT prophylaxis
[2019-04-15 11:32] LABS: ANISOCYTOSIS 0; MACROCYTOSIS 0; PLATELET ESTIMATE NORMAL
--- NOTE | 2019-04-15 13:21 | PN ---
Progress Note (short form) - Note Progress Note: fuv left foot vss +improved wound and cellulitis left foot om resolved cellulitis will follow. tx toe outpatient once dc with ivabx, hbo and wound care. wbc elevated however does not seem to be from foot.
--- NOTE | 2019-04-15 14:09 | PN ---
Progress Note (short form) - Note Progress Note: Chief Complaint: Events noted, notes reviewed, History of Present Illness: Seen and examined. - Current Medication List Current Medications Acetaminophen (Tylenol -) 650 mg PO Q6H PRN PRN Reason: FEVER Last Admin: 04/14/19 22:14 Dose: 650 mg Al Hydroxide/Mg Hydroxide (Mylanta Oral Suspension -) 30 ml PO Q6HPO PRN PRN Reason: DYSPEPSIA Albuterol Sulfate (Ventolin 0.083% Nebulizer Soln -) 1 amp NEB RQID [facility] Last Admin: 04/15/19 11:44 Dose: 1 amp Aspirin (Asa -) 81 mg PO DAILY [facility] Last Admin: 04/15/19 10:35 Dose: 81 mg Atorvastatin Calcium (Lipitor -) 40 mg PO HS [facility] Last Admin: 04/14/19 22:15 Dose: 40 mg Carvedilol (Coreg -) 12.5 mg PO BID [facility] Last Admin: 04/15/19 10:33 Dose: Not Given Clopidogrel Bisulfate (Plavix -) 75 mg PO DAILY [facility] Last Admin: 04/15/19 10:35 Dose: 75 mg Docusate Sodium (Colace -) 100 mg PO TID [facility] Last Admin: 04/15/19 06:34 Dose: 100 mg Ezetimibe (Zetia -) 10 mg PO DAILY [facility] Last Admin: 04/15/19 10:35 Dose: 10 mg Furosemide (Lasix -) 20 mg PO DAILY [facility] Last Admin: 04/15/19 10:35 Dose: 20 mg Gabapentin (Neurontin -) 600 mg PO TID [facility] Last Admin: 04/15/19 06:34 Dose: 600 mg Heparin Sodium (Porcine) (Heparin -) 5,000 unit SQ BID [facility] Last Admin: 04/15/19 10:35 Dose: 5,000 unit Vancomycin HCl (Vancomycin (Pre-Docked)) 1,000 mg in 250 mls @ 166.667 mls/hr IVPB 0200,1400 [facility]; Protocol Last Admin: 04/15/19 01:55 Dose: 166.667 mls/hr Insulin Aspart (Novolog Vial Sliding Scale -) 1 vial SQ [facility]; Protocol Last Admin: 04/15/19 12:15 Dose: 4 units Insulin Detemir (Levemir Vial) 20 units SQ [facility] Last Admin: 04/14/19 23:07 Dose: 20 units Levothyroxine Sodium (Synthroid -) 88 mcg PO AM [facility] Last Admin: 04/15/19 06:34 Dose: 88 mcg Lisinopril (Prinivil) 2.5 mg PO DAILY [facility] Last Admin: 04/15/19 10:35 Dose: 2.5 mg Lorazepam (Ativan -) 0.5 mg PO BID PRN PRN Reason: ANXIETY Last Admin: 04/14/19 22:16 Dose: 0.5 mg Pantoprazole Sodium (Protonix -) 40 mg PO DAILY [facility] Last Admin: 04/15/19 10:35 Dose: 40 mg Polyethylene Glycol (Miralax (For Daily Use) -) 17 gm PO DAILY [facility] Last Admin: 04/15/19 10:38 Dose: 17 gm Ranolazine (Ranexa -) 500 mg PO BID [facility] Last Admin: 04/15/19 10:35 Dose: 500 mg Senna (Senna -) 2 tab PO HS PRN PRN Reason: CONSTIPATION - Objective Vital Signs: Last Vital Signs Temp Pulse Resp BP Pulse Ox 97.5 F L 50 L 22 H 136/58 L 97 04/15/19 10:00 04/15/19 10:00 04/15/19 10:00 04/15/19 10:00 04/15/19 09:00 Intake & Output 04/12/19 04/13/19 04/14/19 04/15/19 23:59 23:59 23:59 23:59 Intake Total 1451 1537 620 250 Output Total 10 Balance 1441 1537 620 250 Weight 174 lb 174 lb 180 lb 1.6 oz 182 lb Neck: Supple Negative JVD No Bruit Respiratory: Clear to A&P Bilaterally Cardiovascular: S1 S2 Regular Rate and Rhythm Gastrointestinal: Soft Benign Normal Bowel Sounds Ext: No Edema, Gangrene Noted Labs: Assessment/Plan ASSESSMENT: 1. LV systolic dysfunction w/ h/o failure 2. Pulmonary HTN 3. Cellulitis 4. T2DM 5. CAD s/p [place], CABG, angina pectoris 6. PAD with gangrene left 4th toe osteomyelitis s/p left popliteal angioplasty 7. Anemia 8. Hypothyroidism PLAN: 1. monitor renal function and electrolytes 2. Continue Carvedilol 12.5 mg BID, Lipitor 40 mg QHS, Zetia 10 mg QD and Ranexa 500 mg BID as tolerated 3. Continue ASA 81 mg QD and Plavix 75 mg QD 4. Antibiotic coverage and wound care, toe amputation per podiatry Evelio Howard M.D.
--- NOTE | 2019-04-15 16:39 | PN ---
Progress Note (short form) - Note Progress Note: 1. hyponatremia 2. cellulitis 3. htn 4. chf 5. cad 6. ckd 7. hx cva 8. PAD Current Medications Acetaminophen (Tylenol -) 650 mg PO Q6H PRN PRN Reason: FEVER Last Admin: 04/14/19 22:14 Dose: 650 mg Al Hydroxide/Mg Hydroxide (Mylanta Oral Suspension -) 30 ml PO Q6HPO PRN PRN Reason: DYSPEPSIA Albuterol Sulfate (Ventolin 0.083% Nebulizer Soln -) 1 amp NEB RQID [facility] Last Admin: 04/15/19 15:37 Dose: 1 amp Aspirin (Asa -) 81 mg PO DAILY [facility] Last Admin: 04/15/19 10:35 Dose: 81 mg Atorvastatin Calcium (Lipitor -) 40 mg PO HS [facility] Last Admin: 04/14/19 22:15 Dose: 40 mg Carvedilol (Coreg -) 12.5 mg PO BID [facility] Last Admin: 04/15/19 10:33 Dose: Not Given Clopidogrel Bisulfate (Plavix -) 75 mg PO DAILY [facility] Last Admin: 04/15/19 10:35 Dose: 75 mg Docusate Sodium (Colace -) 100 mg PO TID [facility] Last Admin: 04/15/19 14:56 Dose: 100 mg Ezetimibe (Zetia -) 10 mg PO DAILY [facility] Last Admin: 04/15/19 10:35 Dose: 10 mg Furosemide (Lasix -) 20 mg PO DAILY [facility] Last Admin: 04/15/19 10:35 Dose: 20 mg Gabapentin (Neurontin -) 600 mg PO TID [facility] Last Admin: 04/15/19 14:56 Dose: 600 mg Heparin Sodium (Porcine) (Heparin -) 5,000 unit SQ BID [facility] Last Admin: 04/15/19 10:35 Dose: 5,000 unit Vancomycin HCl (Vancomycin (Pre-Docked)) 1,000 mg in 250 mls @ 166.667 mls/hr IVPB 0200,1400 [facility]; Protocol Last Admin: 04/15/19 15:59 Dose: Not Given Insulin Aspart (Novolog Vial Sliding Scale -) 1 vial SQ [facility]; Protocol Last Admin: 04/15/19 12:15 Dose: 4 units Insulin Detemir (Levemir Vial) 20 units SQ [facility] Last Admin: 04/14/19 23:07 Dose: 20 units Levothyroxine Sodium (Synthroid -) 88 mcg PO AM [facility] Last Admin: 04/15/19 06:34 Dose: 88 mcg Lisinopril (Prinivil) 2.5 mg PO DAILY [facility] Last Admin: 04/15/19 10:35 Dose: 2.5 mg Lorazepam (Ativan -) 0.5 mg PO BID PRN PRN Reason: ANXIETY Last Admin: 04/14/19 22:16 Dose: 0.5 mg Pantoprazole Sodium (Protonix -) 40 mg PO DAILY [facility] Last Admin: 04/15/19 10:35 Dose: 40 mg Polyethylene Glycol (Miralax (For Daily Use) -) 17 gm PO DAILY [facility] Last Admin: 04/15/19 10:38 Dose: 17 gm Ranolazine (Ranexa -) 500 mg PO BID [facility] Last Admin: 04/15/19 10:35 Dose: 500 mg Senna (Senna -) 2 tab PO HS PRN PRN Reason: CONSTIPATION Last Vital Signs Temp Pulse Resp BP Pulse Ox 98.1 F 54 L 20 142/64 97 04/15/19 14:00 04/15/19 14:00 04/15/19 14:00 04/15/19 14:00 04/15/19 09:00 CBC, BMP 04/15/19 08:15 04/15/19 08:15 IMP- Hyponatremia renal funcion stable Plan - renal function stable - can restart diuretics - can restart lolly - monitor renal function - avoid nephrotoxins - avoid nsaids
--- NOTE | 2019-04-15 17:16 | PN ---
Progress Note, Physician History of Present Illness: Events noted. Pt is alert without acute distress. s/p angioplasty. Podiatry note reviewed, surgical intervention deferred at this time. Vancomycin level noted. Family at bedside. - Current Medication List Current Medications: Active Medications Acetaminophen (Tylenol -) 650 mg PO Q6H PRN PRN Reason: FEVER Last Admin: 04/14/19 22:14 Dose: 650 mg Al Hydroxide/Mg Hydroxide (Mylanta Oral Suspension -) 30 ml PO Q6HPO PRN PRN Reason: DYSPEPSIA Albuterol Sulfate (Ventolin 0.083% Nebulizer Soln -) 1 amp NEB RQID [facility] Last Admin: 04/15/19 15:37 Dose: 1 amp Aspirin (Asa -) 81 mg PO DAILY [facility] Last Admin: 04/15/19 10:35 Dose: 81 mg Atorvastatin Calcium (Lipitor -) 40 mg PO HS [facility] Last Admin: 04/14/19 22:15 Dose: 40 mg Carvedilol (Coreg -) 12.5 mg PO BID [facility] Last Admin: 04/15/19 10:33 Dose: Not Given Clopidogrel Bisulfate (Plavix -) 75 mg PO DAILY [facility] Last Admin: 04/15/19 10:35 Dose: 75 mg Docusate Sodium (Colace -) 100 mg PO TID [facility] Last Admin: 04/15/19 14:56 Dose: 100 mg Ezetimibe (Zetia -) 10 mg PO DAILY [facility] Last Admin: 04/15/19 10:35 Dose: 10 mg Furosemide (Lasix -) 20 mg PO DAILY [facility] Last Admin: 04/15/19 10:35 Dose: 20 mg Gabapentin (Neurontin -) 600 mg PO TID [facility] Last Admin: 04/15/19 14:56 Dose: 600 mg Heparin Sodium (Porcine) (Heparin -) 5,000 unit SQ BID [facility] Last Admin: 04/15/19 10:35 Dose: 5,000 unit Vancomycin HCl (Vancomycin (Pre-Docked)) 1,000 mg in 250 mls @ 166.667 mls/hr IVPB 0200,1400 [facility]; Protocol Last Admin: 04/15/19 15:59 Dose: Not Given Insulin Aspart (Novolog Vial Sliding Scale -) 1 vial SQ ACHS [facility]; Protocol Last Admin: 04/15/19 12:15 Dose: 4 units Insulin Detemir (Levemir Vial) 20 units SQ HS [facility] Last Admin: 04/14/19 23:07 Dose: 20 units Levothyroxine Sodium (Synthroid -) 88 mcg PO AM [facility] Last Admin: 04/15/19 06:34 Dose: 88 mcg Lisinopril (Prinivil) 2.5 mg PO DAILY [facility] Last Admin: 04/15/19 10:35 Dose: 2.5 mg Lorazepam (Ativan -) 0.5 mg PO BID PRN PRN Reason: ANXIETY Last Admin: 04/14/19 22:16 Dose: 0.5 mg Pantoprazole Sodium (Protonix -) 40 mg PO DAILY [facility] Last Admin: 04/15/19 10:35 Dose: 40 mg Polyethylene Glycol (Miralax (For Daily Use) -) 17 gm PO DAILY [facility] Last Admin: 04/15/19 10:38 Dose: 17 gm Ranolazine (Ranexa -) 500 mg PO BID [facility] Last Admin: 04/15/19 10:35 Dose: 500 mg Senna (Senna -) 2 tab PO HS PRN PRN Reason: CONSTIPATION - Objective Vital Signs: Vital Signs Temperature 98.1 F 04/15/19 14:00 Pulse Rate 54 L 04/15/19 14:00 Respiratory Rate 20 04/15/19 14:00 Blood Pressure 142/64 04/15/19 14:00 O2 Sat by Pulse Oximetry (%) 97 04/15/19 09:00 Constitutional: Yes: No Distress, Calm Cardiovascular: Yes: Regular Rate and Rhythm Respiratory: Yes: Regular Gastrointestinal: Yes: Normal Bowel Sounds, Soft Genitourinary: Yes: WNL Extremities: Yes: Erythema Wound/Incision: Yes: Other (Lt 4th toe gangrenous ulcer, wound currently dry. + Lt foot erythema) Neurological: Yes: Alert Labs: CBC, BMP 04/15/19 08:15 04/15/19 08:15 INR, PTT INR 1.11 (0.83-1.09) H 04/06/19 13:20 Abnormal Lab Results 04/15/19 04/15/19 04/15/19 08:15 08:15 14:35 WBC 12.0 H RBC 2.91 L Hgb 9.1 L Hct 26.7 L Sodium 130 L Chloride 97 L Anion Gap 4 L Random Glucose 170 H Alkaline Phosphatase 133 H Albumin 2.8 L Vancomycin Pre-Dose 31.1 H* - ....Imaging MRI: Report Reviewed Problem List - Problems (1) HAROLDO (acute kidney injury) Code(s): N17.9 - ACUTE KIDNEY FAILURE, UNSPECIFIED (2) Cellulitis Code(s): L03.90 - CELLULITIS, UNSPECIFIED (3) Diabetic ulcer of toe associated with diabetes mellitus due to underlying condition Code(s): E08.621 - DIABETES MELLITUS DUE TO UNDERLYING CONDITION W FOOT ULCER; L97.509 - NON-PRESSURE CHRONIC ULCER OTH PRT UNSP FOOT W UNSP SEVERITY Qualifiers: Laterality: left Non-pressure ulcer stage: unspecified non-pressure ulcer stage Qualified Code(s): E08.621 - Diabetes mellitus due to underlying condition with foot ulcer; L97.529 - Non-pressure chronic ulcer of other part of left foot with unspecified severity (4) Osteomyelitis Code(s): M86.9 - OSTEOMYELITIS, UNSPECIFIED (5) PAD (peripheral artery disease) Code(s): I73.9 - PERIPHERAL VASCULAR DISEASE, UNSPECIFIED (6) CAD (coronary artery disease) Code(s): I25.10 - ATHSCL HEART DISEASE OF [place] CORONARY ARTERY W/O ANG PCTRS Qualifiers: Coronary Disease-Associated Artery/Lesion type: [place] artery [place] vs. transplanted heart: [place] heart Associated angina: with unstable angina Qualified Code(s): I25.110 - Atherosclerotic heart disease of [place] coronary artery with unstable angina pectoris (7) CHF (congestive heart failure) Code(s): I50.9 - HEART FAILURE, UNSPECIFIED Qualifiers: Heart failure type: unspecified Heart failure chronicity: acute on chronic Qualified Code(s): I50.9 - Heart failure, unspecified (8) Diabetic neuropathy Code(s): E11.40 - TYPE 2 DIABETES MELLITUS WITH DIABETIC NEUROPATHY, UNSP (9) Hyperlipidemia Code(s): E78.5 - HYPERLIPIDEMIA, UNSPECIFIED Qualifiers: Hyperlipidemia type: pure hypercholesterolemia Qualified Code(s): E78.00 - Pure hypercholesterolemia, unspecified; E78.0 - Pure hypercholesterolemia (10) Hypertension Code(s): I10 - ESSENTIAL (PRIMARY) HYPERTENSION (11) [id number] kidney injury Code(s): N17.9 - ACUTE KIDNEY FAILURE, UNSPECIFIED; N18.9 - CHRONIC KIDNEY DISEASE, UNSPECIFIED Qualifiers: Chronic kidney disease stage: stage 3 (moderate) Assessment/Plan Lt foot infected ulcer/toe gangrene/OM PAD s/p angioplasty HAROLDO - improved DM CHF CAD -- Podiatry note reviewed, surgical intervention preferred -- wbc elevated to 12K today, Vancomycin trough 31 - will hold, order Vancomycin random level in a.m. - will restart at adjusted dose once below 15 -- monitor wbc, renal function -- will likely need total 4 wks of antibiotics for MRSA coverage -- continue wound care
[2019-04-15] MEDS ORDERED: INSULIN (NOVOLOG) ASPART 100 UNITS/ML 10ML VIAL ONE (20:18)
[2019-04-15] MEDS: ATORVASTATIN CA 40 MG TABLET (FP) PO SCH (21:14)
[2019-04-15] MEDS: INSULIN (LEVEMIR) 100 UNITS/ML UNITS SQ SCH (21:26)
[2019-04-16] MEDS: GABAPENTIN 300 MG CAPSULE PO SCH ×3 (06:11→22:10)
[2019-04-16] MEDS: DOCUSATE SODIUM 100 MG CAPSULE (FP) PO SCH ×3 (06:11→22:10)
[2019-04-16] MEDS: INSULIN SLIDING SCALE (NOVOLOG) 1 VIAL SQ SCH ×4 (06:12→22:20)
[2019-04-16] MEDS: LEVOTHYROXINE NA 88 MCG TABLET (FP) PO SCH (06:12)
[2019-04-16] MEDS: ALBUTEROL SO4 0.083% IH SOL 2.5 MG/3 ML VIAL.NEB. NEB SCH ×4 (08:10→20:55)
--- NOTE | 2019-04-16 09:21 | PN ---
Physical Exam: SUBJECTIVE: Patient seen and examined. She has no complaints. OBJECTIVE: Vital Signs Period Temp Pulse Resp BP Sys/Ibarra Pulse Ox Last 24 Hr 97.5 F-98.6 F 50-57 19-22 132-159/56-88 98 GENERAL: The patient is awake, alert, and fully oriented, in no acute distress. LUNGS: Breath sounds equal, clear to auscultation bilaterally, no wheezes, no crackles, no accessory muscle use. HEART: Regular rate and rhythm, S1, S2 without murmur, rub or gallop. ABDOMEN: Obese, soft, nontender, nondistended, normoactive bowel sounds, no guarding, no rebound, no hepatosplenomegaly, no masses. EXTREMITIES: 2+ pulses, warm, well-perfused, no edema. Ulcer of dorsal surface of left 4th toe with minimal surrounding erythema extending to dorsal forefoot. Laboratory Results - last 24 hr 04/15/19 04/15/19 04/15/19 08:15 08:15 12:14 WBC 12.0 H RBC 2.91 L Hgb 9.1 L Hct 26.7 L MCV 91.6 MCH 31.1 MCHC 34.0 RDW 13.8 Plt Count 325 MPV 8.8 Absolute Neuts (auto) 6.4 Neutrophils % No Result Required. Neutrophils % (Manual) 45.9 Band Neutrophils % 0.0 Lymphocytes % No Result Required. Lymphocytes % (Manual) 35.7 D Monocytes % (Manual) 9 Eosinophils % (Manual) 3.1 D Basophils % (Manual) 0.0 Myelocytes % (Man) 0 Promyelocytes % (Man) 0 Blast Cells % (Manual) 0 Nucleated RBC % 0 Metamyelocytes 1 D Hypochromia 0 Platelet Estimate Normal Polychromasia 1+ Poikilocytosis 0 Anisocytosis 0 Microcytosis 0 Macrocytosis 0 Sodium 130 L Potassium 5.1 Chloride 97 L Carbon Dioxide 28 Anion Gap 4 L BUN 15.4 Creatinine 0.9 Est GFR (CKD-EPI)AfAm 68.53 Est GFR (CKD-EPI)NonAf 59.13 POC Glucometer 196 Random Glucose 170 H Calcium 8.9 Magnesium 2.4 Total Bilirubin 0.6 AST 26 ALT 22 Alkaline Phosphatase 133 H Total Protein 6.7 Albumin 2.8 L Vancomycin Pre-Dose 04/15/19 04/15/19 04/15/19 14:35 17:42 21:20 WBC RBC Hgb Hct MCV MCH MCHC RDW Plt Count MPV Absolute Neuts (auto) Neutrophils % Neutrophils % (Manual) Band Neutrophils % Lymphocytes % Lymphocytes % (Manual) Monocytes % (Manual) Eosinophils % (Manual) Basophils % (Manual) Myelocytes % (Man) Promyelocytes % (Man) Blast Cells % (Manual) Nucleated RBC % Metamyelocytes Hypochromia Platelet Estimate Polychromasia Poikilocytosis Anisocytosis Microcytosis Macrocytosis Sodium Potassium Chloride Carbon Dioxide Anion Gap BUN Creatinine Est GFR (CKD-EPI)AfAm Est GFR (CKD-EPI)NonAf POC Glucometer 140 190 Random Glucose Calcium Magnesium Total Bilirubin AST ALT Alkaline Phosphatase Total Protein Albumin Vancomycin Pre-Dose 31.1 H* 04/16/19 06:10 WBC RBC Hgb Hct MCV MCH MCHC RDW Plt Count MPV Absolute Neuts (auto) Neutrophils % Neutrophils % (Manual) Band Neutrophils % Lymphocytes % Lymphocytes % (Manual) Monocytes % (Manual) Eosinophils % (Manual) Basophils % (Manual) Myelocytes % (Man) Promyelocytes % (Man) Blast Cells % (Manual) Nucleated RBC % Metamyelocytes Hypochromia Platelet Estimate Polychromasia Poikilocytosis Anisocytosis Microcytosis Macrocytosis Sodium Potassium Chloride Carbon Dioxide Anion Gap BUN Creatinine Est GFR (CKD-EPI)AfAm Est GFR (CKD-EPI)NonAf POC Glucometer 229 Random Glucose Calcium Magnesium Total Bilirubin AST ALT Alkaline Phosphatase Total Protein Albumin Vancomycin Pre-Dose Active Medications Generic Name Dose Route Start Last Admin Trade Name Freq PRN Reason Stop Dose Admin Acetaminophen 650 mg 04/12/19 12:52 04/14/19 22:14 Tylenol - PO 650 mg Q6H PRN Administration FEVER Al Hydroxide/Mg Hydroxide 30 ml 04/13/19 08:42 Mylanta Oral Suspension - PO Q6HPO PRN DYSPEPSIA Albuterol Sulfate 1 amp 04/12/19 16:00 04/16/19 08:10 Ventolin 0.083% Nebulizer Soln - NEB 1 amp RQID [facility] Administration Aspirin 81 mg 04/13/19 10:00 04/15/19 10:35 Asa - PO 81 mg DAILY [facility] Administration Atorvastatin Calcium 40 mg 04/12/19 22:00 04/15/19 21:14 Lipitor - PO 40 mg HS [facility] Administration Carvedilol 12.5 mg 11/20/19 22:00 04/15/19 21:14 Coreg - PO 12.5 mg BID [facility] Administration Clopidogrel Bisulfate 75 mg 04/13/19 10:00 04/15/19 10:35 Plavix - PO 75 mg DAILY [facility] Administration Docusate Sodium 100 mg 04/13/19 14:00 04/16/19 06:11 Colace - PO 100 mg TID [facility] Administration Ezetimibe 10 mg 04/13/19 10:00 04/15/19 10:35 Zetia - PO 10 mg DAILY [facility] Administration Furosemide 20 mg 04/15/19 10:00 04/15/19 10:35 Lasix - PO 20 mg DAILY [facility] Administration Gabapentin 600 mg 04/12/19 14:00 04/16/19 06:11 Neurontin - PO 600 mg TID [facility] Administration Heparin Sodium (Porcine) 5,000 unit 04/12/19 22:00 04/15/19 21:13 Heparin - SQ 5,000 unit BID [facility] Administration Insulin Aspart 1 vial 04/12/19 16:30 04/16/19 06:12 Novolog Vial Sliding Scale - SQ 6 units ACHS [facility] Administration Protocol Insulin Detemir 20 units 04/12/19 22:00 04/15/19 21:26 Levemir Vial SQ Not Given HS [facility] Levothyroxine Sodium 88 mcg 04/13/19 07:00 04/16/19 06:12 Synthroid - PO 88 mcg AM [facility] Administration Lisinopril 2.5 mg 04/15/19 10:00 04/15/19 10:35 Prinivil PO 2.5 mg DAILY [facility] Administration Lorazepam 0.5 mg 04/13/19 15:36 04/14/19 22:16 Ativan - PO 0.5 mg BID PRN Administration ANXIETY Pantoprazole Sodium 40 mg 04/13/19 10:00 04/15/19 10:35 Protonix - PO 40 mg DAILY [facility] Administration Polyethylene Glycol 17 gm 04/13/19 10:00 04/15/19 10:38 Miralax (For Daily Use) - PO 17 gm DAILY [facility] Administration Ranolazine 500 mg 04/12/19 22:00 04/15/19 21:13 Ranexa - PO 500 mg BID [facility] Administration Senna 2 tab 04/13/19 22:00 04/15/19 21:13 Senna - PO 2 tab HS PRN Administration CONSTIPATION ASSESSMENT/PLAN: This is an 83 year old woman with a history of HTN, hyperlipidemia, CAD, [place], CABG, chronic systolic heart failure, type 2 DM, pulmonary HTN, PAD, GERD, neuropathy, chronic pain, hypothyroidism, osteomyelitis of left 1st toe who presented to the ED with an ulcer and redness of her left 4th toe. 1. Left 4th toe infected ulcer with gangrene, cellulitis, and osteomyelitis - s/p left popliteal angioplasty 04/12 - Continue Vancomycin x 4 weeks total - on hold for trough 31.1, will need PICC once dosing determined 2. Acute on chronic systolic heart failure - Improved - Continue Coreg, lisinopril, Lasix 3. Hyponatremia - Continue to monitor electrolytes 4. Anemia - Hgb stable - continue to monitor 5. CAD - Continue aspirin, Plavix, Coreg, Lipitor, Zetia, Ranexa 6. HTN - Continue Coreg, lisinopril, Lasix 7. Hyperlipidemia - Continue Lipitor, Zetia 8. Type 2 diabetes mellitus with peripheral neuropathy - Continue Levemir, Novolog sliding scale, Neurontin 9. Acute kidney injury on stage 3 CKD - Resolved 10. Pulmonary HTN 11. PAD - Continue aspirin, Plavix 12. Hypothyroidism - Continue Synthroid Visit type - Emergency Visit Emergency Visit: Yes ED Registration Date: 04/06/19 Care time: The patient presented to the Emergency Department on the above date and was hospitalized for further evaluation of their emergent condition. - New Patient This patient is new to me today: No - Critical Care Critical Care patient: No - Discharge Referral Referred to [facility] Med P.C.: No
[2019-04-16 10:02] LABS: ALBUMIN 2.9 g/dl (3.4-5.0); BILIRUBIN,TOTAL 0.6 mg/dL (0.2-1); BLOOD UREA NITROGEN 15.9 mg/dL (7-18); CALCIUM 8.9 mg/dL (8.5-10.1); MAGNESIUM 2.4 mg/dL (1.8-2.4); POTASSIUM 4.9 mmol/L (3.5-5.1); TOT PROT 6.9 g/dl (6.4-8.2)
[2019-04-16] MEDS ORDERED: PT OWN MED DRAWER 7, Y5N ONE (10:05)
[2019-04-16] MEDS: ASPIRIN 81 MG CHEWABLE TABLETS PO SCH (10:07)
[2019-04-16] MEDS: CARVEDILOL 12.5 MG TABLET (FP) PO SCH ×2 (10:08→22:10)
[2019-04-16] MEDS: FUROSEMIDE 20 MG TABLET (FP) PO SCH (10:08)
[2019-04-16] MEDS: POLYETHYLENE GLYCOL 3350 119 GM BTL PO SCH (10:08)
[2019-04-16] MEDS: CLOPIDOGREL BISULFATE 75 MG TABLET (FP) PO SCH (10:09)
[2019-04-16] MEDS: LISINOPRIL 5 MG TABLET (FP) PO SCH (10:09)
[2019-04-16] MEDS: EZETIMIBE 10 MG TABLET (FP) PO SCH (10:10)
[2019-04-16] MEDS: HEPARIN NA (PORCINE) 5,000 UNITS/ML 1ML VIAL SQ SCH ×2 (10:10→22:10)
[2019-04-16] MEDS: RANOLAZINE E.R. 500 MG TABLET (FP) PO SCH ×2 (10:10→22:21)
[2019-04-16] MEDS: PANTOPRAZOLE 40 MG TABLET PO SCH (10:10)
--- NOTE | 2019-04-16 12:07 | PN ---
Progress Note (short form) - Note Progress Note: PULMONARY Denies shortness of breath or cough. Vital Signs Period Temp Pulse Resp BP Sys/Ibarra Pulse Ox Last 24 Hr 97.7 F-98.6 F 52-57 19-20 123-159/51-88 95-98 Gen: NAD at rest Heart: RRR Lung: decreased breath sounds at the bases Abd: soft, nontender Ext: no edema CBC, BMP 04/15/19 08:15 04/16/19 08:55 Active Medications Acetaminophen (Tylenol -) 650 mg PO Q6H PRN PRN Reason: FEVER Last Admin: 04/14/19 22:14 Dose: 650 mg Al Hydroxide/Mg Hydroxide (Mylanta Oral Suspension -) 30 ml PO Q6HPO PRN PRN Reason: DYSPEPSIA Albuterol Sulfate (Ventolin 0.083% Nebulizer Soln -) 1 amp NEB RQID [facility] Last Admin: 04/16/19 08:10 Dose: 1 amp Aspirin (Asa -) 81 mg PO DAILY [facility] Last Admin: 04/16/19 10:07 Dose: 81 mg Atorvastatin Calcium (Lipitor -) 40 mg PO HS [facility] Last Admin: 04/15/19 21:14 Dose: 40 mg Carvedilol (Coreg -) 12.5 mg PO BID [facility] Last Admin: 04/16/19 10:08 Dose: 12.5 mg Clopidogrel Bisulfate (Plavix -) 75 mg PO DAILY [facility] Last Admin: 04/16/19 10:09 Dose: 75 mg Docusate Sodium (Colace -) 100 mg PO TID [facility] Last Admin: 04/16/19 06:11 Dose: 100 mg Ezetimibe (Zetia -) 10 mg PO DAILY [facility] Last Admin: 04/16/19 10:10 Dose: 10 mg Furosemide (Lasix -) 20 mg PO DAILY [facility] Last Admin: 04/16/19 10:08 Dose: 20 mg Gabapentin (Neurontin -) 600 mg PO TID [facility] Last Admin: 04/16/19 06:11 Dose: 600 mg Heparin Sodium (Porcine) (Heparin -) 5,000 unit SQ BID [facility] Last Admin: 04/16/19 10:10 Dose: 5,000 unit Insulin Aspart (Novolog Vial Sliding Scale -) 1 vial SQ ACHS [facility]; Protocol Last Admin: 04/16/19 11:39 Dose: 8 units Insulin Detemir (Levemir Vial) 20 units SQ HS [facility] Last Admin: 04/15/19 21:26 Dose: Not Given Levothyroxine Sodium (Synthroid -) 88 mcg PO AM [facility] Last Admin: 04/16/19 06:12 Dose: 88 mcg Lisinopril (Prinivil) 2.5 mg PO DAILY [facility] Last Admin: 04/16/19 10:09 Dose: 2.5 mg Lorazepam (Ativan -) 0.5 mg PO BID PRN PRN Reason: ANXIETY Last Admin: 04/14/19 22:16 Dose: 0.5 mg Pantoprazole Sodium (Protonix -) 40 mg PO DAILY [facility] Last Admin: 04/16/19 10:10 Dose: 40 mg Polyethylene Glycol (Miralax (For Daily Use) -) 17 gm PO DAILY [facility] Last Admin: 04/16/19 10:08 Dose: 17 gm Ranolazine (Ranexa -) 500 mg PO BID [facility] Last Admin: 04/16/19 10:10 Dose: 500 mg Senna (Senna -) 2 tab PO HS PRN PRN Reason: CONSTIPATION Last Admin: 04/15/19 21:13 Dose: 2 tab A/P Acute on Chronic Systolic Heart Failure CAD s/p CABG Pulmonary HTN Acute on Chronic Renal Failure HTN DM PAD L Toe Osteomyelitis Hypothyroidism Anemia Hyponatremia - antibiotics per ID - bowel regimen - monitor lytes - monitor urine output, creatinine - daily weights - O2 to keep SpO2 >905 - DVT prophylaxis
[2019-04-16 16:11] LABS: BASO % 1.1 % (0-2.0); EOS % 2.9 % (0-4.5); HEMATOCRIT 28.8 % (32.4-45.2); HEMOGLOBIN 9.5 GM/dL (10.7-15.3); LYMPH % 24.5 % (8-40); MCH 30.5 pg (25.7-33.7); MEAN CELL VOLUME 92.3 fl (80-96); MEAN PLT VOLUME 8.4 fl (7.5-11.1); MONO % 8.8 % (3.8-10.2); NEUT % 62.7 % (42.8-82.8); PLATELET COUNT 366 K/MM3 (134-434); RBC 3.12 M/mm3 (3.60-5.2); RDW 13.6 % (11.6-15.6); WHITE BLOOD COUNT 9.1 K/mm3 (4.0-10.0)
[2019-04-16 18:07] LABS: MACROCYTOSIS 1+
[2019-04-16 18:16] LABS: PLATELET ESTIMATE ADEQUATE
--- NOTE | 2019-04-16 19:03 | PN ---
Progress Note, Physician History of Present Illness: Pt is alert and fully responsive. Denies pain in foot. No distress noted. - Current Medication List Current Medications: Active Medications Acetaminophen (Tylenol -) 650 mg PO Q6H PRN PRN Reason: FEVER Last Admin: 04/14/19 22:14 Dose: 650 mg Al Hydroxide/Mg Hydroxide (Mylanta Oral Suspension -) 30 ml PO Q6HPO PRN PRN Reason: DYSPEPSIA Albuterol Sulfate (Ventolin 0.083% Nebulizer Soln -) 1 amp NEB RQID [facility] Last Admin: 04/16/19 16:05 Dose: 1 amp Aspirin (Asa -) 81 mg PO DAILY [facility] Last Admin: 04/16/19 10:07 Dose: 81 mg Atorvastatin Calcium (Lipitor -) 40 mg PO HS [facility] Last Admin: 04/15/19 21:14 Dose: 40 mg Carvedilol (Coreg -) 12.5 mg PO BID [facility] Last Admin: 04/16/19 10:08 Dose: 12.5 mg Clopidogrel Bisulfate (Plavix -) 75 mg PO DAILY [facility] Last Admin: 04/16/19 10:09 Dose: 75 mg Docusate Sodium (Colace -) 100 mg PO TID [facility] Last Admin: 04/16/19 13:39 Dose: 100 mg Ezetimibe (Zetia -) 10 mg PO DAILY [facility] Last Admin: 04/16/19 10:10 Dose: 10 mg Furosemide (Lasix -) 20 mg PO DAILY [facility] Last Admin: 04/16/19 10:08 Dose: 20 mg Gabapentin (Neurontin -) 600 mg PO TID [facility] Last Admin: 04/16/19 13:40 Dose: 600 mg Heparin Sodium (Porcine) (Heparin -) 5,000 unit SQ BID [facility] Last Admin: 04/16/19 10:10 Dose: 5,000 unit Insulin Aspart (Novolog Vial Sliding Scale -) 1 vial SQ [facility]; Protocol Last Admin: 04/16/19 17:33 Dose: 6 units Insulin Detemir (Levemir Vial) 20 units SQ HS [facility] Last Admin: 04/15/19 21:26 Dose: Not Given Levothyroxine Sodium (Synthroid -) 88 mcg PO AM [facility] Last Admin: 04/16/19 06:12 Dose: 88 mcg Lisinopril (Prinivil) 2.5 mg PO DAILY [facility] Last Admin: 04/16/19 10:09 Dose: 2.5 mg Lorazepam (Ativan -) 0.5 mg PO BID PRN PRN Reason: ANXIETY Last Admin: 04/14/19 22:16 Dose: 0.5 mg Pantoprazole Sodium (Protonix -) 40 mg PO DAILY [facility] Last Admin: 04/16/19 10:10 Dose: 40 mg Polyethylene Glycol (Miralax (For Daily Use) -) 17 gm PO DAILY [facility] Last Admin: 04/16/19 10:08 Dose: 17 gm Ranolazine (Ranexa -) 500 mg PO BID [facility] Last Admin: 04/16/19 10:10 Dose: 500 mg Senna (Senna -) 2 tab PO HS PRN PRN Reason: CONSTIPATION Last Admin: 04/15/19 21:13 Dose: 2 tab - Objective Vital Signs: Vital Signs Temperature 97.8 F 04/16/19 18:37 Pulse Rate 58 L 04/16/19 18:37 Respiratory Rate 19 04/16/19 18:37 Blood Pressure 124/46 L 04/16/19 18:37 O2 Sat by Pulse Oximetry (%) 95 04/16/19 09:00 Constitutional: Yes: No Distress, Calm Cardiovascular: Yes: Regular Rate and Rhythm Respiratory: Yes: Regular Gastrointestinal: Yes: Normal Bowel Sounds, Soft Wound/Incision: Yes: Other (Lt foot decreased erythema/edema, ulcer dry) Neurological: Yes: Alert Labs: CBC, BMP 04/16/19 14:47 04/16/19 08:55 INR, PTT INR 1.11 (0.83-1.09) H 04/06/19 13:20 Microbiology 04/06/19 13:00 Blood - Peripheral Venous Blood Culture - Final NO GROWTH AFTER 5 DAYS INCUBATION 04/06/19 13:00 Blood - Peripheral Venous Blood Culture - Final NO GROWTH AFTER 5 DAYS INCUBATION 04/06/19 13:20 Toe - Left Fifth Gram Stain - Final 04/06/19 13:20 Toe - Left Fifth Wound Culture - Final Mr S Aureus Yeast Like Organism 04/06/19 13:00 Urine - Urine Clean Catch Urine Culture - Final NO GROWTH OBTAINED Problem List - Problems (1) HAROLDO (acute kidney injury) Code(s): N17.9 - ACUTE KIDNEY FAILURE, UNSPECIFIED (2) Cellulitis Code(s): L03.90 - CELLULITIS, UNSPECIFIED (3) Diabetic ulcer of toe associated with diabetes mellitus due to underlying condition Code(s): E08.621 - DIABETES MELLITUS DUE TO UNDERLYING CONDITION W FOOT ULCER; L97.509 - NON-PRESSURE CHRONIC ULCER OTH PRT UNSP FOOT W UNSP SEVERITY Qualifiers: Laterality: left Non-pressure ulcer stage: unspecified non-pressure ulcer stage Qualified Code(s): E08.621 - Diabetes mellitus due to underlying condition with foot ulcer; L97.529 - Non-pressure chronic ulcer of other part of left foot with unspecified severity (4) Osteomyelitis Code(s): M86.9 - OSTEOMYELITIS, UNSPECIFIED (5) PAD (peripheral artery disease) Code(s): I73.9 - PERIPHERAL VASCULAR DISEASE, UNSPECIFIED (6) CAD (coronary artery disease) Code(s): I25.10 - ATHSCL HEART DISEASE OF [place] CORONARY ARTERY W/O ANG PCTRS Qualifiers: Coronary Disease-Associated Artery/Lesion type: [place] artery [place] vs. transplanted heart: [place] heart Associated angina: with unstable angina Qualified Code(s): I25.110 - Atherosclerotic heart disease of [place] coronary artery with unstable angina pectoris (7) CHF (congestive heart failure) Code(s): I50.9 - HEART FAILURE, UNSPECIFIED Qualifiers: Heart failure type: unspecified Heart failure chronicity: acute on chronic Qualified Code(s): I50.9 - Heart failure, unspecified (8) Diabetic neuropathy Code(s): E11.40 - TYPE 2 DIABETES MELLITUS WITH DIABETIC NEUROPATHY, UNSP (9) Hyperlipidemia Code(s): E78.5 - HYPERLIPIDEMIA, UNSPECIFIED Qualifiers: Hyperlipidemia type: pure hypercholesterolemia Qualified Code(s): E78.00 - Pure hypercholesterolemia, unspecified; E78.0 - Pure hypercholesterolemia (10) Hypertension Code(s): I10 - ESSENTIAL (PRIMARY) HYPERTENSION Assessment/Plan Lt foot infected ulcer/toe gangrene/OM +MRSA PAD s/p angioplasty HAROLDO -resolved DM CHF CAD -- Vancomycin random level from a.m. noted, restart at 1 gram IV daily with close renal function monitoring, repeat Vancomycin trough prior to 4th dose, repeat bmp in a.m. -- will likely need total 4 wks of antibiotics -- continue wound care
[2019-04-16] MEDS: VANCOMYCIN 1 GRAM (PRE-DOCKED) 1,000 MG/250 ML BAG IVPB SCH (20:40)
[2019-04-16] MEDS: ATORVASTATIN CA 40 MG TABLET (FP) PO SCH (22:10)
[2019-04-16] MEDS: INSULIN (LEVEMIR) 100 UNITS/ML UNITS SQ SCH (22:20)
--- NOTE | 2019-04-16 22:42 | PN ---
Progress Note (short form) - Note Progress Note: 1. hyponatremia 2. cellulitis 3. htn 4. chf 5. cad 6. ckd 7. hx cva 8. PAD Current Medications Acetaminophen (Tylenol -) 650 mg PO Q6H PRN PRN Reason: FEVER Last Admin: 04/14/19 22:14 Dose: 650 mg Al Hydroxide/Mg Hydroxide (Mylanta Oral Suspension -) 30 ml PO Q6HPO PRN PRN Reason: DYSPEPSIA Albuterol Sulfate (Ventolin 0.083% Nebulizer Soln -) 1 amp NEB RQID [facility] Last Admin: 04/16/19 20:55 Dose: 1 amp Aspirin (Asa -) 81 mg PO DAILY [facility] Last Admin: 04/16/19 10:07 Dose: 81 mg Atorvastatin Calcium (Lipitor -) 40 mg PO HS [facility] Last Admin: 04/16/19 22:10 Dose: 40 mg Carvedilol (Coreg -) 12.5 mg PO BID [facility] Last Admin: 04/16/19 22:10 Dose: 12.5 mg Clopidogrel Bisulfate (Plavix -) 75 mg PO DAILY [facility] Last Admin: 04/16/19 10:09 Dose: 75 mg Docusate Sodium (Colace -) 100 mg PO TID [facility] Last Admin: 04/16/19 22:10 Dose: 100 mg Ezetimibe (Zetia -) 10 mg PO DAILY [facility] Last Admin: 04/16/19 10:10 Dose: 10 mg Furosemide (Lasix -) 20 mg PO DAILY [facility] Last Admin: 04/16/19 10:08 Dose: 20 mg Gabapentin (Neurontin -) 600 mg PO TID [facility] Last Admin: 04/16/19 22:10 Dose: 600 mg Heparin Sodium (Porcine) (Heparin -) 5,000 unit SQ BID [facility] Last Admin: 04/16/19 22:10 Dose: 5,000 unit Vancomycin HCl (Vancomycin (Pre-Docked)) 1,000 mg in 250 mls @ 166.667 mls/hr IVPB DAILY@1930 [facility]; Protocol Last Admin: 04/16/19 20:40 Dose: 166.667 mls/hr Insulin Aspart (Novolog Vial Sliding Scale -) 1 vial SQ [facility]; Protocol Last Admin: 04/16/19 22:20 Dose: 6 units Insulin Detemir (Levemir Vial) 20 units SQ [facility] Last Admin: 04/16/19 22:20 Dose: 20 units Levothyroxine Sodium (Synthroid -) 88 mcg PO AM [facility] Last Admin: 04/16/19 06:12 Dose: 88 mcg Lisinopril (Prinivil) 2.5 mg PO DAILY [facility] Last Admin: 04/16/19 10:09 Dose: 2.5 mg Lorazepam (Ativan -) 0.5 mg PO BID PRN PRN Reason: ANXIETY Last Admin: 04/14/19 22:16 Dose: 0.5 mg Pantoprazole Sodium (Protonix -) 40 mg PO DAILY [facility] Last Admin: 04/16/19 10:10 Dose: 40 mg Polyethylene Glycol (Miralax (For Daily Use) -) 17 gm PO DAILY [facility] Last Admin: 04/16/19 10:08 Dose: 17 gm Ranolazine (Ranexa -) 500 mg PO BID [facility] Last Admin: 04/16/19 22:21 Dose: 500 mg Senna (Senna -) 2 tab PO HS PRN PRN Reason: CONSTIPATION Last Admin: 04/15/19 21:13 Dose: 2 tab Last Vital Signs Temp Pulse Resp BP Pulse Ox 97.8 F 58 L 19 124/46 L 95 04/16/19 18:37 04/16/19 18:37 04/16/19 18:37 04/16/19 18:37 04/16/19 09:00 Lungs clear Heart reg Abd soft nontender Ext no edema CBC, BMP 04/16/19 14:47 04/16/19 08:55 CBC, BMP 04/15/19 08:15 04/15/19 08:15 IMP- Hyponatremia renal funcion stable Plan - renal function stable - can restart diuretics - can restart lolly - monitor renal function - avoid nephrotoxins - avoid nsaids
[2019-04-17] MEDS: GABAPENTIN 300 MG CAPSULE PO SCH ×3 (06:30→21:37)
[2019-04-17] MEDS: LEVOTHYROXINE NA 88 MCG TABLET (FP) PO SCH (06:31)
[2019-04-17] MEDS: DOCUSATE SODIUM 100 MG CAPSULE (FP) PO SCH ×3 (06:31→21:38)
[2019-04-17] MEDS: INSULIN SLIDING SCALE (NOVOLOG) 1 VIAL SQ SCH ×4 (06:35→21:32)
[2019-04-17] MEDS: ALBUTEROL SO4 0.083% IH SOL 2.5 MG/3 ML VIAL.NEB. NEB SCH ×4 (07:30→20:16)
[2019-04-17 08:26] LABS: BASO % 1.1 % (0-2.0); EOS % 3.8 % (0-4.5); HEMATOCRIT 27.4 % (32.4-45.2); HEMOGLOBIN 9.5 GM/dL (10.7-15.3); MCH 31.6 pg (25.7-33.7); MCHC 34.5 g/dl (32.0-36.0); MEAN CELL VOLUME 91.4 fl (80-96); MEAN PLT VOLUME 7.8 fl (7.5-11.1); MONO % 9.8 % (3.8-10.2); NEUT % 56.3 % (42.8-82.8); PLATELET COUNT 342 K/MM3 (134-434); RDW 13.8 % (11.6-15.6); WHITE BLOOD COUNT 8.3 K/mm3 (4.0-10.0)
[2019-04-17 09:05] LABS: ALBUMIN 2.9 g/dl (3.4-5.0); BILIRUBIN,TOTAL 0.5 mg/dL (0.2-1); BLOOD UREA NITROGEN 11.8 mg/dL (7-18); CALCIUM 9.2 mg/dL (8.5-10.1); MAGNESIUM 2.3 mg/dL (1.8-2.4); POTASSIUM 4.6 mmol/L (3.5-5.1); TOT PROT 6.7 g/dl (6.4-8.2)
--- NOTE | 2019-04-17 09:39 | PN ---
Progress Note (short form) - Note Progress Note: Resting in NAD. Denies shortness of breath or cough. No acute events overnight. Intake & Output 04/14/19 04/15/19 04/16/19 04/17/19 23:59 23:59 23:59 23:59 Intake Total 620 350 120 350 Balance 620 350 120 350 Weight 180 lb 1.6 oz 182 lb 181 lb 3 oz 170 lb 3.2 oz Last Vital Signs Temp Pulse Resp BP Pulse Ox 98.2 F 50 L 20 150/56 L 96 04/17/19 06:58 04/17/19 06:58 04/17/19 06:58 04/17/19 06:58 04/16/19 21:00 Active Medications Acetaminophen (Tylenol -) 650 mg PO Q6H PRN PRN Reason: FEVER Last Admin: 04/14/19 22:14 Dose: 650 mg Al Hydroxide/Mg Hydroxide (Mylanta Oral Suspension -) 30 ml PO Q6HPO PRN PRN Reason: DYSPEPSIA Albuterol Sulfate (Ventolin 0.083% Nebulizer Soln -) 1 amp NEB RQID [facility] Last Admin: 04/17/19 07:30 Dose: 1 amp Aspirin (Asa -) 81 mg PO DAILY [facility] Last Admin: 04/16/19 10:07 Dose: 81 mg Atorvastatin Calcium (Lipitor -) 40 mg PO HS [facility] Last Admin: 04/16/19 22:10 Dose: 40 mg Carvedilol (Coreg -) 12.5 mg PO BID [facility] Last Admin: 04/16/19 22:10 Dose: 12.5 mg Clopidogrel Bisulfate (Plavix -) 75 mg PO DAILY [facility] Last Admin: 04/16/19 10:09 Dose: 75 mg Docusate Sodium (Colace -) 100 mg PO TID [facility] Last Admin: 04/17/19 06:31 Dose: 100 mg Ezetimibe (Zetia -) 10 mg PO DAILY [facility] Last Admin: 04/16/19 10:10 Dose: 10 mg Furosemide (Lasix -) 20 mg PO DAILY [facility] Last Admin: 04/16/19 10:08 Dose: 20 mg Gabapentin (Neurontin -) 600 mg PO TID [facility] Last Admin: 04/17/19 06:30 Dose: 600 mg Heparin Sodium (Porcine) (Heparin -) 5,000 unit SQ BID [facility] Last Admin: 04/16/19 22:10 Dose: 5,000 unit Vancomycin HCl (Vancomycin (Pre-Docked)) 1,000 mg in 250 mls @ 166.667 mls/hr IVPB DAILY@1930 [facility]; Protocol Last Admin: 04/16/19 20:40 Dose: 166.667 mls/hr Insulin Aspart (Novolog Vial Sliding Scale -) 1 vial SQ ACHS [facility]; Protocol Last Admin: 04/17/19 06:35 Dose: Not Given Insulin Detemir (Levemir Vial) 20 units SQ HS [facility] Last Admin: 04/16/19 22:20 Dose: 20 units Levothyroxine Sodium (Synthroid -) 88 mcg PO AM [facility] Last Admin: 04/17/19 06:31 Dose: 88 mcg Lisinopril (Prinivil) 2.5 mg PO DAILY [facility] Last Admin: 04/16/19 10:09 Dose: 2.5 mg Lorazepam (Ativan -) 0.5 mg PO BID PRN PRN Reason: ANXIETY Last Admin: 04/14/19 22:16 Dose: 0.5 mg Pantoprazole Sodium (Protonix -) 40 mg PO DAILY [facility] Last Admin: 04/16/19 10:10 Dose: 40 mg Polyethylene Glycol (Miralax (For Daily Use) -) 17 gm PO DAILY [facility] Last Admin: 04/16/19 10:08 Dose: 17 gm Ranolazine (Ranexa -) 500 mg PO BID [facility] Last Admin: 04/16/19 22:21 Dose: 500 mg Senna (Senna -) 2 tab PO HS PRN PRN Reason: CONSTIPATION Last Admin: 04/15/19 21:13 Dose: 2 tab Gen: NAD at rest Heart: RRR Lung: decreased breath sounds at the bases Abd: soft, nontender Ext: no edema Laboratory Results - last 24 hr 04/16/19 04/16/19 04/16/19 08:55 11:37 14:47 WBC RBC Hgb Hct MCV MCH MCHC RDW Plt Count MPV Absolute Neuts (auto) Total Counted Neutrophils % Neutrophils % (Manual) Lymphocytes % Lymphocytes % (Manual) Monocytes % Monocytes % (Manual) Eosinophils % Eosinophils % (Manual) Basophils % Myelocytes % (Man) Nucleated RBC % Differential Comment Platelet Estimate Polychromasia Macrocytosis Sodium 129 L Potassium 4.9 Chloride 94 L Carbon Dioxide 31 Anion Gap 4 L BUN 15.9 Creatinine 1.0 Est GFR (CKD-EPI)AfAm 60.33 Est GFR (CKD-EPI)NonAf 52.06 POC Glucometer 280 Random Glucose 224 H Calcium 8.9 Magnesium 2.4 Total Bilirubin 0.6 AST 19 ALT 21 Alkaline Phosphatase 143 H Total Protein 6.9 Albumin 2.9 L Random Vancomycin 18.0 04/16/19 04/16/19 04/16/19 14:47 17:28 22:12 WBC 9.1 RBC 3.12 L Hgb 9.5 L Hct 28.8 L MCV 92.3 MCH 30.5 MCHC 33.0 RDW 13.6 Plt Count 366 MPV 8.4 Absolute Neuts (auto) 5.7 Total Counted 100 Neutrophils % 62.7 Neutrophils % (Manual) 62.0 Lymphocytes % 24.5 Lymphocytes % (Manual) 22.0 D Monocytes % 8.8 Monocytes % (Manual) 8 Eosinophils % 2.9 Eosinophils % (Manual) 5.0 H Basophils % 1.1 Myelocytes % (Man) 3 H D Nucleated RBC % 1 H Differential Comment Man diff performed Platelet Estimate Adequate Polychromasia 1+ Macrocytosis 1+ Sodium Potassium Chloride Carbon Dioxide Anion Gap BUN Creatinine Est GFR (CKD-EPI)AfAm Est GFR (CKD-EPI)NonAf POC Glucometer 228 208 Random Glucose Calcium Magnesium Total Bilirubin AST ALT Alkaline Phosphatase Total Protein Albumin Random Vancomycin 04/17/19 04/17/19 04/17/19 06:33 07:30 07:30 WBC 8.3 RBC 3.00 L Hgb 9.5 L Hct 27.4 L MCV 91.4 MCH 31.6 MCHC 34.5 RDW 13.8 Plt Count 342 MPV 7.8 Absolute Neuts (auto) 4.7 Total Counted Neutrophils % 56.3 Neutrophils % (Manual) Lymphocytes % 29.0 Lymphocytes % (Manual) Monocytes % 9.8 Monocytes % (Manual) Eosinophils % 3.8 Eosinophils % (Manual) Basophils % 1.1 Myelocytes % (Man) Nucleated RBC % 0 Differential Comment Platelet Estimate Polychromasia Macrocytosis Sodium 132 L Potassium 4.6 Chloride 93 L Carbon Dioxide 35 H Anion Gap 5 L BUN 11.8 Creatinine 1.0 Est GFR (CKD-EPI)AfAm 60.33 Est GFR (CKD-EPI)NonAf 52.06 POC Glucometer 119 Random Glucose 106 Calcium 9.2 Magnesium 2.3 Total Bilirubin 0.5 AST 15 ALT 22 Alkaline Phosphatase 126 H Total Protein 6.7 Albumin 2.9 L Random Vancomycin A/P Acute on Chronic Systolic Heart Failure CAD s/p CABG Pulmonary HTN Acute on Chronic Renal Failure HTN DM PAD L Toe Osteomyelitis Hypothyroidism Anemia Hyponatremia - antibiotics per ID - bowel regimen - monitor lytes - monitor urine output, creatinine - daily weights - O2 to keep SpO2 >905 - DVT prophylaxis Dr Bright
[2019-04-17] MEDS ORDERED: INSULIN (NOVOLOG) ASPART 100 UNITS/ML 10ML VIAL ONE (09:52)
[2019-04-17] MEDS: CLOPIDOGREL BISULFATE 75 MG TABLET (FP) PO SCH (11:11)
[2019-04-17] MEDS: RANOLAZINE E.R. 500 MG TABLET (FP) PO SCH ×2 (11:11→21:38)
[2019-04-17] MEDS: FUROSEMIDE 20 MG TABLET (FP) PO SCH (11:12)
[2019-04-17] MEDS: LISINOPRIL 5 MG TABLET (FP) PO SCH (11:12)
[2019-04-17] MEDS: CARVEDILOL 12.5 MG TABLET (FP) PO SCH ×2 (11:12→21:38)
[2019-04-17] MEDS: EZETIMIBE 10 MG TABLET (FP) PO SCH (11:12)
[2019-04-17] MEDS: ASPIRIN 81 MG CHEWABLE TABLETS PO SCH (11:13)
[2019-04-17] MEDS: POLYETHYLENE GLYCOL 3350 119 GM BTL PO SCH (11:13)
[2019-04-17] MEDS: PANTOPRAZOLE 40 MG TABLET PO SCH (11:13)
[2019-04-17] MEDS: HEPARIN NA (PORCINE) 5,000 UNITS/ML 1ML VIAL SQ SCH ×2 (11:13→21:34)
[2019-04-17 12:30] VITALS: BMI 28.3
--- NOTE | 2019-04-17 12:46 | PN ---
Physical Exam: SUBJECTIVE: Patient seen and examined. She has no complaints. OBJECTIVE: Vital Signs Period Temp Pulse Resp BP Sys/Ibarra Pulse Ox Last 24 Hr 97.8 F-98.2 F 50-58 17-20 124-150/46-63 96 GENERAL: The patient is awake, alert, and fully oriented, in no acute distress. LUNGS: Breath sounds equal, clear to auscultation bilaterally, no wheezes, no crackles, no accessory muscle use. HEART: Regular rate and rhythm, S1, S2 without murmur, rub or gallop. ABDOMEN: Obese, soft, nontender, nondistended, normoactive bowel sounds, no guarding, no rebound, no hepatosplenomegaly, no masses. EXTREMITIES: 2+ pulses, warm, well-perfused, no edema. Ulcer of dorsal surface of left 4th toe with minimal surrounding erythema extending to dorsal forefoot. Laboratory Results - last 24 hr 04/16/19 04/16/19 04/16/19 14:47 14:47 17:28 WBC 9.1 RBC 3.12 L Hgb 9.5 L Hct 28.8 L MCV 92.3 MCH 30.5 MCHC 33.0 RDW 13.6 Plt Count 366 MPV 8.4 Absolute Neuts (auto) 5.7 Total Counted 100 Neutrophils % 62.7 Neutrophils % (Manual) 62.0 Lymphocytes % 24.5 Lymphocytes % (Manual) 22.0 D Monocytes % 8.8 Monocytes % (Manual) 8 Eosinophils % 2.9 Eosinophils % (Manual) 5.0 H Basophils % 1.1 Myelocytes % (Man) 3 H D Nucleated RBC % 1 H Differential Comment Man diff performed Platelet Estimate Adequate Polychromasia 1+ Macrocytosis 1+ Sodium Potassium Chloride Carbon Dioxide Anion Gap BUN Creatinine Est GFR (CKD-EPI)AfAm Est GFR (CKD-EPI)NonAf POC Glucometer 228 Random Glucose Calcium Magnesium Total Bilirubin AST ALT Alkaline Phosphatase Total Protein Albumin Random Vancomycin 18.0 04/16/19 04/17/19 04/17/19 22:12 06:33 07:30 WBC 8.3 RBC 3.00 L Hgb 9.5 L Hct 27.4 L MCV 91.4 MCH 31.6 MCHC 34.5 RDW 13.8 Plt Count 342 MPV 7.8 Absolute Neuts (auto) 4.7 Total Counted Neutrophils % 56.3 Neutrophils % (Manual) Lymphocytes % 29.0 Lymphocytes % (Manual) Monocytes % 9.8 Monocytes % (Manual) Eosinophils % 3.8 Eosinophils % (Manual) Basophils % 1.1 Myelocytes % (Man) Nucleated RBC % 0 Differential Comment Platelet Estimate Polychromasia Macrocytosis Sodium Potassium Chloride Carbon Dioxide Anion Gap BUN Creatinine Est GFR (CKD-EPI)AfAm Est GFR (CKD-EPI)NonAf POC Glucometer 208 119 Random Glucose Calcium Magnesium Total Bilirubin AST ALT Alkaline Phosphatase Total Protein Albumin Random Vancomycin 04/17/19 04/17/19 07:30 12:00 WBC RBC Hgb Hct MCV MCH MCHC RDW Plt Count MPV Absolute Neuts (auto) Total Counted Neutrophils % Neutrophils % (Manual) Lymphocytes % Lymphocytes % (Manual) Monocytes % Monocytes % (Manual) Eosinophils % Eosinophils % (Manual) Basophils % Myelocytes % (Man) Nucleated RBC % Differential Comment Platelet Estimate Polychromasia Macrocytosis Sodium 132 L Potassium 4.6 Chloride 93 L Carbon Dioxide 35 H Anion Gap 5 L BUN 11.8 Creatinine 1.0 Est GFR (CKD-EPI)AfAm 60.33 Est GFR (CKD-EPI)NonAf 52.06 POC Glucometer 245 Random Glucose 106 Calcium 9.2 Magnesium 2.3 Total Bilirubin 0.5 AST 15 ALT 22 Alkaline Phosphatase 126 H Total Protein 6.7 Albumin 2.9 L Random Vancomycin Active Medications Generic Name Dose Route Start Last Admin Trade Name Freq PRN Reason Stop Dose Admin Acetaminophen 650 mg 04/12/19 12:52 04/14/19 22:14 Tylenol - PO 650 mg Q6H PRN Administration FEVER Al Hydroxide/Mg Hydroxide 30 ml 04/13/19 08:42 Mylanta Oral Suspension - PO Q6HPO PRN DYSPEPSIA Albuterol Sulfate 1 amp 04/12/19 16:00 04/17/19 11:41 Ventolin 0.083% Nebulizer Soln - NEB 1 amp RQID [facility] Administration Aspirin 81 mg 04/13/19 10:00 04/17/19 11:13 Asa - PO 81 mg DAILY [facility] Administration Atorvastatin Calcium 40 mg 04/12/19 22:00 04/16/19 22:10 Lipitor - PO 40 mg HS [facility] Administration Carvedilol 12.5 mg 04/12/19 22:00 04/17/19 11:12 Coreg - PO 12.5 mg BID [facility] Administration Clopidogrel Bisulfate 75 mg 04/13/19 10:00 04/17/19 11:11 Plavix - PO 75 mg DAILY [facility] Administration Docusate Sodium 100 mg 04/13/19 14:00 04/17/19 06:31 Colace - PO 100 mg TID [facility] Administration Ezetimibe 10 mg 04/13/19 10:00 04/17/19 11:12 Zetia - PO 10 mg DAILY [facility] Administration Furosemide 20 mg 04/15/19 10:00 04/17/19 11:12 Lasix - PO 20 mg DAILY [facility] Administration Gabapentin 600 mg 04/12/19 14:00 04/17/19 06:30 Neurontin - PO 600 mg TID [facility] Administration Heparin Sodium (Porcine) 5,000 unit 04/12/19 22:00 04/17/19 11:13 Heparin - SQ 5,000 unit BID [facility] Administration Vancomycin HCl 1,000 mg in 250 mls @ 166.667 mls/hr 04/16/19 19:30 04/16/19 20:40 Vancomycin (Pre-Docked) IVPB 166.667 mls/hr DAILY@1930 [facility] Administration Protocol Insulin Aspart 1 vial 04/12/19 16:30 04/17/19 12:02 Novolog Vial Sliding Scale - SQ 6 units ACHS [facility] Administration Protocol Insulin Detemir 20 units 04/12/19 22:00 04/16/19 22:20 Levemir Vial SQ 20 units HS [facility] Administration Levothyroxine Sodium 88 mcg 04/13/19 07:00 04/17/19 06:31 Synthroid - PO 88 mcg AM [facility] Administration Lisinopril 2.5 mg 04/15/19 10:00 04/17/19 11:12 Prinivil PO 2.5 mg DAILY [facility] Administration Lorazepam 0.5 mg 04/13/19 15:36 04/14/19 22:16 Ativan - PO 0.5 mg BID PRN Administration ANXIETY Pantoprazole Sodium 40 mg 04/13/19 10:00 04/17/19 11:13 Protonix - PO 40 mg DAILY [facility] Administration Polyethylene Glycol 17 gm 04/13/19 10:00 04/17/19 11:13 Miralax (For Daily Use) - PO 17 gm DAILY [facility] Administration Ranolazine 500 mg 04/12/19 22:00 04/17/19 11:11 Ranexa - PO 500 mg BID [facility] Administration Senna 2 tab 04/13/19 22:00 04/15/19 21:13 Senna - PO 2 tab HS PRN Administration CONSTIPATION ASSESSMENT/PLAN: This is an 83 year old woman with a history of HTN, hyperlipidemia, CAD, [place], CABG, chronic systolic heart failure, type 2 DM, pulmonary HTN, PAD, GERD, neuropathy, chronic pain, hypothyroidism, osteomyelitis of left 1st toe who presented to the ED with an ulcer and redness of her left 4th toe. 1. Left 4th toe infected ulcer with gangrene, cellulitis, and osteomyelitis - s/p left popliteal angioplasty 04/12 - Continue Vancomycin x 4 weeks total - will need PICC once dosing determined 2. Acute on chronic systolic heart failure - Improved - Continue Coreg, lisinopril, Lasix 3. Hyponatremia - Stable 4. Anemia - Stable 5. CAD - Continue aspirin, Plavix, Coreg, Lipitor, Zetia, Ranexa 6. HTN - Continue Coreg, lisinopril, Lasix 7. Hyperlipidemia - Continue Lipitor, Zetia 8. Type 2 diabetes mellitus with peripheral neuropathy - Continue Levemir, Novolog sliding scale, Neurontin 9. Acute kidney injury on stage 3 CKD - Resolved 10. Pulmonary HTN 11. PAD - Continue aspirin, Plavix 12. Hypothyroidism - Continue Synthroid Visit type - Emergency Visit Emergency Visit: Yes ED Registration Date: 04/06/19 Care time: The patient presented to the Emergency Department on the above date and was hospitalized for further evaluation of their emergent condition. - New Patient This patient is new to me today: No - Critical Care Critical Care patient: No - Discharge Referral Referred to [facility] No
--- NOTE | 2019-04-17 13:12 | PN ---
Progress Note, Physician History of Present Illness: patient stable no new issues felt sob oxygen was low back on nasal canula neb treatment - Current Medication List Current Medications: Active Medications Acetaminophen (Tylenol -) 650 mg PO Q6H PRN PRN Reason: FEVER Last Admin: 04/14/19 22:14 Dose: 650 mg Al Hydroxide/Mg Hydroxide (Mylanta Oral Suspension -) 30 ml PO Q6HPO PRN PRN Reason: DYSPEPSIA Albuterol Sulfate (Ventolin 0.083% Nebulizer Soln -) 1 amp NEB RQID [facility] Last Admin: 04/17/19 11:41 Dose: 1 amp Aspirin (Asa -) 81 mg PO DAILY [facility] Last Admin: 04/17/19 11:13 Dose: 81 mg Atorvastatin Calcium (Lipitor -) 40 mg PO HS [facility] Last Admin: 04/16/19 22:10 Dose: 40 mg Carvedilol (Coreg -) 12.5 mg PO BID [facility] Last Admin: 04/17/19 11:12 Dose: 12.5 mg Clopidogrel Bisulfate (Plavix -) 75 mg PO DAILY [facility] Last Admin: 04/17/19 11:11 Dose: 75 mg Docusate Sodium (Colace -) 100 mg PO TID [facility] Last Admin: 04/17/19 06:31 Dose: 100 mg Ezetimibe (Zetia -) 10 mg PO DAILY [facility] Last Admin: 04/17/19 11:12 Dose: 10 mg Furosemide (Lasix -) 20 mg PO DAILY [facility] Last Admin: 04/17/19 11:12 Dose: 20 mg Gabapentin (Neurontin -) 600 mg PO TID [facility] Last Admin: 04/17/19 06:30 Dose: 600 mg Heparin Sodium (Porcine) (Heparin -) 5,000 unit SQ BID [facility] Last Admin: 04/17/19 11:13 Dose: 5,000 unit Vancomycin HCl (Vancomycin (Pre-Docked)) 1,000 mg in 250 mls @ 166.667 mls/hr IVPB DAILY@1930 [facility]; Protocol Last Admin: 04/16/19 20:40 Dose: 166.667 mls/hr Insulin Aspart (Novolog Vial Sliding Scale -) 1 vial SQ [facility]; Protocol Last Admin: 04/17/19 12:02 Dose: 6 units Insulin Detemir (Levemir Vial) 20 units SQ [facility] Last Admin: 04/16/19 22:20 Dose: 20 units Levothyroxine Sodium (Synthroid -) 88 mcg PO AM [facility] Last Admin: 04/17/19 06:31 Dose: 88 mcg Lisinopril (Prinivil) 2.5 mg PO DAILY [facility] Last Admin: 04/17/19 11:12 Dose: 2.5 mg Lorazepam (Ativan -) 0.5 mg PO BID PRN PRN Reason: ANXIETY Last Admin: 04/14/19 22:16 Dose: 0.5 mg Pantoprazole Sodium (Protonix -) 40 mg PO DAILY [facility] Last Admin: 04/17/19 11:13 Dose: 40 mg Polyethylene Glycol (Miralax (For Daily Use) -) 17 gm PO DAILY [facility] Last Admin: 04/17/19 11:13 Dose: 17 gm Ranolazine (Ranexa -) 500 mg PO BID [facility] Last Admin: 04/17/19 11:11 Dose: 500 mg Senna (Senna -) 2 tab PO HS PRN PRN Reason: CONSTIPATION Last Admin: 04/15/19 21:13 Dose: 2 tab - Objective Vital Signs: Vital Signs Temperature 98.2 F 04/17/19 06:58 Pulse Rate 50 L 04/17/19 06:58 Respiratory Rate 20 04/17/19 06:58 Blood Pressure 150/56 L 04/17/19 06:58 O2 Sat by Pulse Oximetry (%) 96 04/16/19 21:00 Constitutional: Yes: No Distress, Calm, Obese Cardiovascular: Yes: Regular Rate and Rhythm Respiratory: Yes: Regular, CTA Bilaterally Gastrointestinal: Yes: Normal Bowel Sounds, Soft Musculoskeletal: Yes: WNL Extremities: Yes: Other Neurological: Yes: Alert, Oriented Psychiatric: Yes: Alert, Oriented Labs: CBC, BMP 04/17/19 07:30 04/17/19 07:30 INR, PTT INR 1.11 (0.83-1.09) H 04/06/19 13:20 Assessment/Plan Problem List - Problems (1) Cellulitis Code(s): L03.90 - CELLULITIS, UNSPECIFIED (2) S/P CABG (coronary artery bypass graft) Code(s): Z95.1 - PRESENCE OF AORTOCORONARY BYPASS GRAFT (3) Type 2 diabetes mellitus Code(s): E11.9 - TYPE 2 DIABETES MELLITUS WITHOUT COMPLICATIONS Qualifiers: Diabetes mellitus snf insulin use: unspecified snf insulin use status Diabetes mellitus complication status: with neurologic complications Diabetes mellitus complication detail: with polyneuropathy Qualified Code(s): E11.42 - Type 2 diabetes mellitus with diabetic polyneuropathy (4) COPD (chronic obstructive pulmonary disease) Assessment/Plan: cookie prn Code(s): J44.9 - CHRONIC OBSTRUCTIVE PULMONARY DISEASE, UNSPECIFIED (5) CAD (coronary artery disease) Code(s): I25.10 - ATHSCL HEART DISEASE OF [place] CORONARY ARTERY W/O ANG PCTRS Qualifiers: Coronary Disease-Associated Artery/Lesion type: [place] artery [place] vs. transplanted heart: [place] heart Associated angina: with unstable angina Qualified Code(s): I25.110 - Atherosclerotic heart disease of [place] coronary artery with unstable angina pectoris (6) CHF (congestive heart failure) Code(s): I50.9 - HEART FAILURE, UNSPECIFIED Qualifiers: Heart failure type: unspecified Heart failure chronicity: acute on chronic Qualified Code(s): I50.9 - Heart failure, unspecified (7) CKD (chronic kidney disease) stage 3, GFR 30-59 ml/min Code(s): N18.3 - CHRONIC KIDNEY DISEASE, STAGE 3 (MODERATE) (8) Prophylactic measure Code(s): Z29.9 - ENCOUNTER FOR PROPHYLACTIC MEASURES, UNSPECIFIED plan continue current mgmt rest as per the team miguel for 4 weeks wound care
--- NOTE | 2019-04-17 13:52 | PN ---
Progress Note (short form) - Note Progress Note: fuv left foot vss +improved wound and cellulitis left foot, wbc=8.3 om resolved cellulitis will follow. tx toe outpatient once dc with ivabx, hbo and wound care.
--- NOTE | 2019-04-17 14:43 | PN ---
Progress Note, Physician History of Present Illness: Pt seen and examined at bedside. She is awake and appears comfortable. She denies shortness of breath. - Current Medication List Current Medications: Active Medications Acetaminophen (Tylenol -) 650 mg PO Q6H PRN PRN Reason: FEVER Last Admin: 04/14/19 22:14 Dose: 650 mg Al Hydroxide/Mg Hydroxide (Mylanta Oral Suspension -) 30 ml PO Q6HPO PRN PRN Reason: DYSPEPSIA Albuterol Sulfate (Ventolin 0.083% Nebulizer Soln -) 1 amp NEB RQID [facility] Last Admin: 04/17/19 11:41 Dose: 1 amp Aspirin (Asa -) 81 mg PO DAILY [facility] Last Admin: 04/17/19 11:13 Dose: 81 mg Atorvastatin Calcium (Lipitor -) 40 mg PO HS [facility] Last Admin: 04/16/19 22:10 Dose: 40 mg Carvedilol (Coreg -) 12.5 mg PO BID [facility] Last Admin: 04/17/19 11:12 Dose: 12.5 mg Clopidogrel Bisulfate (Plavix -) 75 mg PO DAILY [facility] Last Admin: 04/17/19 11:11 Dose: 75 mg Docusate Sodium (Colace -) 100 mg PO TID [facility] Last Admin: 04/17/19 06:31 Dose: 100 mg Ezetimibe (Zetia -) 10 mg PO DAILY [facility] Last Admin: 04/17/19 11:12 Dose: 10 mg Furosemide (Lasix -) 20 mg PO DAILY [facility] Last Admin: 04/17/19 11:12 Dose: 20 mg Gabapentin (Neurontin -) 600 mg PO TID [facility] Last Admin: 04/17/19 06:30 Dose: 600 mg Heparin Sodium (Porcine) (Heparin -) 5,000 unit SQ BID [facility] Last Admin: 04/17/19 11:13 Dose: 5,000 unit Vancomycin HCl (Vancomycin (Pre-Docked)) 1,000 mg in 250 mls @ 166.667 mls/hr IVPB DAILY@1930 [facility]; Protocol Last Admin: 04/16/19 20:40 Dose: 166.667 mls/hr Insulin Aspart (Novolog Vial Sliding Scale -) 1 vial SQ ACHS [facility]; Protocol Last Admin: 04/17/19 12:02 Dose: 6 units Insulin Detemir (Levemir Vial) 20 units SQ HS [facility] Last Admin: 04/16/19 22:20 Dose: 20 units Levothyroxine Sodium (Synthroid -) 88 mcg PO AM [facility] Last Admin: 04/17/19 06:31 Dose: 88 mcg Lisinopril (Prinivil) 2.5 mg PO DAILY [facility] Last Admin: 04/17/19 11:12 Dose: 2.5 mg Lorazepam (Ativan -) 0.5 mg PO BID PRN PRN Reason: ANXIETY Last Admin: 04/14/19 22:16 Dose: 0.5 mg Pantoprazole Sodium (Protonix -) 40 mg PO DAILY [facility] Last Admin: 04/17/19 11:13 Dose: 40 mg Polyethylene Glycol (Miralax (For Daily Use) -) 17 gm PO DAILY [facility] Last Admin: 04/17/19 11:13 Dose: 17 gm Ranolazine (Ranexa -) 500 mg PO BID [facility] Last Admin: 04/17/19 11:11 Dose: 500 mg Senna (Senna -) 2 tab PO HS PRN PRN Reason: CONSTIPATION Last Admin: 04/15/19 21:13 Dose: 2 tab - Objective Vital Signs: Vital Signs Temperature 98.2 F 04/17/19 06:58 Pulse Rate 50 L 04/17/19 06:58 Respiratory Rate 20 04/17/19 06:58 Blood Pressure 150/56 L 04/17/19 06:58 O2 Sat by Pulse Oximetry (%) 96 04/16/19 21:00 Constitutional: Yes: Calm Eyes: Yes: Conjunctiva Clear HENT: Yes: Atraumatic Neck: Yes: Supple Cardiovascular: Yes: S1, S2 Respiratory: Yes: CTA Bilaterally Gastrointestinal: Yes: Soft, Abdomen, Obese Genitourinary: Yes: WNL Musculoskeletal: Yes: WNL Edema: No Neurological: Yes: Oriented Psychiatric: Yes: Oriented Labs: CBC, BMP 04/17/19 07:30 04/17/19 07:30 INR, PTT INR 1.11 (0.83-1.09) H 04/06/19 13:20 Problem List - Problems (1) HAROLDO (acute kidney injury) Code(s): N17.9 - ACUTE KIDNEY FAILURE, UNSPECIFIED (2) Acute on chronic systolic (congestive) heart failure Code(s): I50.23 - ACUTE ON CHRONIC SYSTOLIC (CONGESTIVE) HEART FAILURE (3) Anemia Code(s): D64.9 - ANEMIA, UNSPECIFIED (4) Cellulitis Code(s): L03.90 - CELLULITIS, UNSPECIFIED Assessment/Plan Current Medications Generic Name Dose Route Start Last Admin Trade Name Freq PRN Reason Stop Dose Admin Acetaminophen 650 mg 04/12/19 12:52 04/14/19 22:14 Tylenol - PO 650 mg Q6H PRN Administration FEVER Al Hydroxide/Mg Hydroxide 30 ml 04/13/19 08:42 Mylanta Oral Suspension - PO Q6HPO PRN DYSPEPSIA Albuterol Sulfate 1 amp 04/12/19 16:00 04/17/19 11:41 Ventolin 0.083% Nebulizer Soln - NEB 1 amp RQID [facility] Administration Aspirin 81 mg 04/13/19 10:00 04/17/19 11:13 Asa - PO 81 mg DAILY [facility] Administration Atorvastatin Calcium 40 mg 04/12/19 22:00 04/16/19 22:10 Lipitor - PO 40 mg HS [facility] Administration Carvedilol 12.5 mg 04/12/19 22:00 04/17/19 11:12 Coreg - PO 12.5 mg BID [facility] Administration Clopidogrel Bisulfate 75 mg 04/13/19 10:00 04/17/19 11:11 Plavix - PO 75 mg DAILY [facility] Administration Docusate Sodium 100 mg 04/13/19 14:00 04/17/19 06:31 Colace - PO 100 mg TID [facility] Administration Ezetimibe 10 mg 04/13/19 10:00 04/17/19 11:12 Zetia - PO 10 mg DAILY [facility] Administration Furosemide 20 mg 04/15/19 10:00 04/17/19 11:12 Lasix - PO 20 mg DAILY [facility] Administration Gabapentin 600 mg 04/12/19 14:00 04/17/19 06:30 Neurontin - PO 600 mg TID [facility] Administration Heparin Sodium (Porcine) 5,000 unit 04/12/19 22:00 04/17/19 11:13 Heparin - SQ 5,000 unit BID [facility] Administration Vancomycin HCl 1,000 mg in 250 mls @ 166.667 mls/hr 04/16/19 19:30 04/16/19 20:40 Vancomycin (Pre-Docked) IVPB 166.667 mls/hr DAILY@1930 [facility] Administration Protocol Insulin Aspart 1 vial 04/12/19 16:30 04/17/19 12:02 Novolog Vial Sliding Scale - SQ 6 units ACHS [facility] Administration Protocol Insulin Detemir 20 units 04/12/19 22:00 04/16/19 22:20 Levemir Vial SQ 20 units HS [facility] Administration Levothyroxine Sodium 88 mcg 04/13/19 07:00 04/17/19 06:31 Synthroid - PO 88 mcg AM [facility] Administration Lisinopril 2.5 mg 04/15/19 10:00 04/17/19 11:12 Prinivil PO 2.5 mg DAILY [facility] Administration Lorazepam 0.5 mg 04/13/19 15:36 04/14/19 22:16 Ativan - PO 0.5 mg BID PRN Administration ANXIETY Pantoprazole Sodium 40 mg 04/13/19 10:00 04/17/19 11:13 Protonix - PO 40 mg DAILY [facility] Administration Polyethylene Glycol 17 gm 04/13/19 10:00 04/17/19 11:13 Miralax (For Daily Use) - PO 17 gm DAILY [facility] Administration Ranolazine 500 mg 04/12/19 22:00 04/17/19 11:11 Ranexa - PO 500 mg BID [facility] Administration Senna 2 tab 04/13/19 22:00 04/15/19 21:13 Senna - PO 2 tab HS PRN Administration CONSTIPATION Impression 1. hyponatremia 2. cellulitis 3. htn 4. chf 5. cad 6. ckd 7. hx cva 8. PAD Plan - cont lasix - cont lolly - sodium improving - renal function is stable - avoid nephrotoxins - avoid nsaids
--- NOTE | 2019-04-17 14:59 | PN ---
Progress Note, Physician Chief Complaint: Events noted Not in distress History of Present Illness: Patient was seen and examined. Awake and alert. Chart was reviewed Denies chest pain, SOB or palpitations - Current Medication List Current Medications: Active Medications Acetaminophen (Tylenol -) 650 mg PO Q6H PRN PRN Reason: FEVER Last Admin: 04/14/19 22:14 Dose: 650 mg Al Hydroxide/Mg Hydroxide (Mylanta Oral Suspension -) 30 ml PO Q6HPO PRN PRN Reason: DYSPEPSIA Albuterol Sulfate (Ventolin 0.083% Nebulizer Soln -) 1 amp NEB RQID [facility] Last Admin: 04/17/19 11:41 Dose: 1 amp Aspirin (Asa -) 81 mg PO DAILY [facility] Last Admin: 04/17/19 11:13 Dose: 81 mg Atorvastatin Calcium (Lipitor -) 40 mg PO HS [facility] Last Admin: 04/16/19 22:10 Dose: 40 mg Carvedilol (Coreg -) 12.5 mg PO BID [facility] Last Admin: 04/17/19 11:12 Dose: 12.5 mg Clopidogrel Bisulfate (Plavix -) 75 mg PO DAILY [facility] Last Admin: 04/17/19 11:11 Dose: 75 mg Docusate Sodium (Colace -) 100 mg PO TID [facility] Last Admin: 04/17/19 06:31 Dose: 100 mg Ezetimibe (Zetia -) 10 mg PO DAILY [facility] Last Admin: 04/17/19 11:12 Dose: 10 mg Furosemide (Lasix -) 20 mg PO DAILY [facility] Last Admin: 04/17/19 11:12 Dose: 20 mg Gabapentin (Neurontin -) 600 mg PO TID [facility] Last Admin: 04/17/19 06:30 Dose: 600 mg Heparin Sodium (Porcine) (Heparin -) 5,000 unit SQ BID [facility] Last Admin: 04/17/19 11:13 Dose: 5,000 unit Vancomycin HCl (Vancomycin (Pre-Docked)) 1,000 mg in 250 mls @ 166.667 mls/hr IVPB DAILY@1930 [facility]; Protocol Last Admin: 04/16/19 20:40 Dose: 166.667 mls/hr Insulin Aspart (Novolog Vial Sliding Scale -) 1 vial SQ ACHS [facility]; Protocol Last Admin: 04/17/19 12:02 Dose: 6 units Insulin Detemir (Levemir Vial) 20 units SQ HS [facility] Last Admin: 04/16/19 22:20 Dose: 20 units Levothyroxine Sodium (Synthroid -) 88 mcg PO AM [facility] Last Admin: 04/17/19 06:31 Dose: 88 mcg Lisinopril (Prinivil) 2.5 mg PO DAILY [facility] Last Admin: 04/17/19 11:12 Dose: 2.5 mg Lorazepam (Ativan -) 0.5 mg PO BID PRN PRN Reason: ANXIETY Last Admin: 04/14/19 22:16 Dose: 0.5 mg Pantoprazole Sodium (Protonix -) 40 mg PO DAILY [facility] Last Admin: 04/17/19 11:13 Dose: 40 mg Polyethylene Glycol (Miralax (For Daily Use) -) 17 gm PO DAILY [facility] Last Admin: 04/17/19 11:13 Dose: 17 gm Ranolazine (Ranexa -) 500 mg PO BID [facility] Last Admin: 04/17/19 11:11 Dose: 500 mg Senna (Senna -) 2 tab PO HS PRN PRN Reason: CONSTIPATION Last Admin: 04/15/19 21:13 Dose: 2 tab - Objective Vital Signs: Vital Signs Temperature 98.2 F 04/17/19 06:58 Pulse Rate 50 L 04/17/19 06:58 Respiratory Rate 20 04/17/19 06:58 Blood Pressure 150/56 L 04/17/19 06:58 O2 Sat by Pulse Oximetry (%) 96 04/16/19 21:00 Eyes: Yes: PERRL HENT: Yes: Atraumatic Neck: Yes: Supple Cardiovascular: Yes: Regular Rate and Rhythm, S1, S2 Respiratory: Yes: CTA Bilaterally Gastrointestinal: Yes: Normal Bowel Sounds, Soft. No: Tenderness Edema: No Labs: CBC, BMP 04/17/19 07:30 04/17/19 07:30 Problem List - Problems (1) Acute on chronic systolic (congestive) heart failure Code(s): I50.23 - ACUTE ON CHRONIC SYSTOLIC (CONGESTIVE) HEART FAILURE (2) Anemia Code(s): D64.9 - ANEMIA, UNSPECIFIED (3) Cellulitis Code(s): L03.90 - CELLULITIS, UNSPECIFIED (4) Osteomyelitis Code(s): M86.9 - OSTEOMYELITIS, UNSPECIFIED (5) PAD (peripheral artery disease) Code(s): I73.9 - PERIPHERAL VASCULAR DISEASE, UNSPECIFIED (6) S/P CABG (coronary artery bypass graft) Code(s): Z95.1 - PRESENCE OF AORTOCORONARY BYPASS GRAFT (7) Type 2 diabetes mellitus Code(s): E11.9 - TYPE 2 DIABETES MELLITUS WITHOUT COMPLICATIONS Qualifiers: Diabetes mellitus skilled nursing insulin use: unspecified skilled nursing insulin use status Diabetes mellitus complication status: with neurologic complications Diabetes mellitus complication detail: with polyneuropathy Qualified Code(s): E11.42 - Type 2 diabetes mellitus with diabetic polyneuropathy (8) COPD (chronic obstructive pulmonary disease) Code(s): J44.9 - CHRONIC OBSTRUCTIVE PULMONARY DISEASE, UNSPECIFIED (9) CAD (coronary artery disease) Code(s): I25.10 - ATHSCL HEART DISEASE OF [place] CORONARY ARTERY W/O ANG PCTRS Qualifiers: Coronary Disease-Associated Artery/Lesion type: [place] artery [place] vs. transplanted heart: [place] heart Associated angina: with unstable angina Qualified Code(s): I25.110 - Atherosclerotic heart disease of [place] coronary artery with unstable angina pectoris (10) CKD (chronic kidney disease) stage 3, GFR 30-59 ml/min Code(s): N18.3 - CHRONIC KIDNEY DISEASE, STAGE 3 (MODERATE) (11) Hyperlipidemia Code(s): E78.5 - HYPERLIPIDEMIA, UNSPECIFIED Qualifiers: Hyperlipidemia type: pure hypercholesterolemia Qualified Code(s): E78.00 - Pure hypercholesterolemia, unspecified; E78.0 - Pure hypercholesterolemia (12) Hypertension Code(s): I10 - ESSENTIAL (PRIMARY) HYPERTENSION (13) Hypothyroidism Code(s): E03.9 - HYPOTHYROIDISM, UNSPECIFIED Qualifiers: Hypothyroidism type: unspecified Qualified Code(s): E03.9 - Hypothyroidism , unspecified Assessment/Plan 1. LV systolic dysfunction w/ history of failure 2. Pulmonary HTN 3. Cellulitis 4. T2DM 5. CAD s/p CO, CABG, angina pectoris 6. PAD with gangrene left 4th toe osteomyelitis s/p left popliteal angioplasty 7. Anemia 8. Hypothyroidism PLAN: 1. Monitor renal function and electrolytes 2. Continue Carvedilol 12.5 mg BID, Lipitor 40 mg QHS, Zetia 10 mg QD and Ranexa 500 mg BID as tolerated 3. Continue ASA 81 mg QD and Plavix 75 mg QD 4. Antibiotic coverage and wound care, toe amputation per podiatry Sim Mcknight MD
[2019-04-17] MEDS: VANCOMYCIN 1 GRAM (PRE-DOCKED) 1,000 MG/250 ML BAG IVPB SCH (21:04)
[2019-04-17] MEDS: INSULIN (LEVEMIR) 100 UNITS/ML UNITS SQ SCH (21:32)
[2019-04-17] MEDS: ATORVASTATIN CA 40 MG TABLET (FP) PO SCH (21:37)
[2019-04-18] MEDS: GABAPENTIN 300 MG CAPSULE PO SCH ×3 (06:42→21:30)
[2019-04-18] MEDS: INSULIN SLIDING SCALE (NOVOLOG) 1 VIAL SQ SCH ×4 (06:42→21:34)
[2019-04-18] MEDS: LEVOTHYROXINE NA 88 MCG TABLET (FP) PO SCH (06:42)
[2019-04-18] MEDS: DOCUSATE SODIUM 100 MG CAPSULE (FP) PO SCH ×3 (06:42→21:30)
[2019-04-18] MEDS: ALBUTEROL SO4 0.083% IH SOL 2.5 MG/3 ML VIAL.NEB. NEB SCH ×4 (07:45→20:15)
--- NOTE | 2019-04-18 09:46 | PN ---
Progress Note (short form) - Note Progress Note: Resting in NAD. Denies shortness of breath or cough. No acute events overnight. Intake & Output 04/15/19 04/16/19 04/17/19 04/18/19 23:59 23:59 23:59 23:59 Intake Total 227 185 9042 250 Output Total 400 Balance 350 120 650 250 Weight 182 lb 181 lb 3 oz 170 lb 3.2 oz 170 lb 14.4 oz Last Vital Signs Temp Pulse Resp BP Pulse Ox 98.3 F 64 20 140/80 96 04/18/19 06:00 04/18/19 06:00 04/18/19 06:00 04/18/19 06:00 04/17/19 09:00 Active Medications Acetaminophen (Tylenol -) 650 mg PO Q6H PRN PRN Reason: FEVER Last Admin: 04/14/19 22:14 Dose: 650 mg Al Hydroxide/Mg Hydroxide (Mylanta Oral Suspension -) 30 ml PO Q6HPO PRN PRN Reason: DYSPEPSIA Albuterol Sulfate (Ventolin 0.083% Nebulizer Soln -) 1 amp NEB RQID [facility] Last Admin: 04/17/19 20:16 Dose: 1 amp Aspirin (Asa -) 81 mg PO DAILY [facility] Last Admin: 04/17/19 11:13 Dose: 81 mg Atorvastatin Calcium (Lipitor -) 40 mg PO HS [facility] Last Admin: 04/17/19 21:37 Dose: 40 mg Carvedilol (Coreg -) 12.5 mg PO BID [facility] Last Admin: 04/17/19 21:38 Dose: 12.5 mg Clopidogrel Bisulfate (Plavix -) 75 mg PO DAILY [facility] Last Admin: 04/17/19 11:11 Dose: 75 mg Docusate Sodium (Colace -) 100 mg PO TID [facility] Last Admin: 04/18/19 06:42 Dose: 100 mg Ezetimibe (Zetia -) 10 mg PO DAILY [facility] Last Admin: 04/17/19 11:12 Dose: 10 mg Furosemide (Lasix -) 20 mg PO DAILY [facility] Last Admin: 04/17/19 11:12 Dose: 20 mg Gabapentin (Neurontin -) 600 mg PO TID [facility] Last Admin: 04/18/19 06:42 Dose: 600 mg Heparin Sodium (Porcine) (Heparin -) 5,000 unit SQ BID [facility] Last Admin: 04/17/19 21:34 Dose: 5,000 unit Vancomycin HCl (Vancomycin (Pre-Docked)) 1,000 mg in 250 mls @ 166.667 mls/hr IVPB DAILY@1930 [facility]; Protocol Last Admin: 04/17/19 21:04 Dose: 166.667 mls/hr Insulin Aspart (Novolog Vial Sliding Scale -) 1 vial SQ ACHS [facility]; Protocol Last Admin: 04/18/19 06:42 Dose: Not Given Insulin Detemir (Levemir Vial) 20 units SQ HS [facility] Last Admin: 04/17/19 21:32 Dose: 20 units Levothyroxine Sodium (Synthroid -) 88 mcg PO AM [facility] Last Admin: 04/18/19 06:42 Dose: 88 mcg Lisinopril (Prinivil) 2.5 mg PO DAILY [facility] Last Admin: 04/17/19 11:12 Dose: 2.5 mg Lorazepam (Ativan -) 0.5 mg PO BID PRN PRN Reason: ANXIETY Last Admin: 04/14/19 22:16 Dose: 0.5 mg Pantoprazole Sodium (Protonix -) 40 mg PO DAILY [facility] Last Admin: 04/17/19 11:13 Dose: 40 mg Polyethylene Glycol (Miralax (For Daily Use) -) 17 gm PO DAILY [facility] Last Admin: 04/17/19 11:13 Dose: 17 gm Ranolazine (Ranexa -) 500 mg PO BID [facility] Last Admin: 04/17/19 21:38 Dose: 500 mg Senna (Senna -) 2 tab PO HS PRN PRN Reason: CONSTIPATION Last Admin: 04/15/19 21:13 Dose: 2 tab Gen: NAD at rest Heart: RRR Lung: decreased breath sounds at the bases Abd: soft, nontender Ext: no edema Laboratory Results - last 24 hr 04/17/19 04/17/19 04/17/19 12:00 17:36 21:28 POC Glucometer 245 197 186 04/18/19 06:40 POC Glucometer 103 A/P Acute on Chronic Systolic Heart Failure CAD s/p CABG Pulmonary HTN Acute on Chronic Renal Failure HTN DM PAD L Toe Osteomyelitis Hypothyroidism Anemia Hyponatremia - antibiotics per ID - bowel regimen - monitor lytes - monitor urine output, creatinine - daily weights - O2 to keep SpO2 >905 - DVT prophylaxis Dr Bright
[2019-04-18] MEDS ORDERED: PT OWN MED DRAWER 7, Y5N ONE (10:41)
[2019-04-18] MEDS: CARVEDILOL 12.5 MG TABLET (FP) PO SCH ×2 (10:43→21:30)
[2019-04-18] MEDS: POLYETHYLENE GLYCOL 3350 119 GM BTL PO SCH (10:43)
[2019-04-18] MEDS: PANTOPRAZOLE 40 MG TABLET PO SCH (10:43)
[2019-04-18] MEDS: RANOLAZINE E.R. 500 MG TABLET (FP) PO SCH ×2 (10:43→21:32)
[2019-04-18] MEDS: FUROSEMIDE 20 MG TABLET (FP) PO SCH (10:43)
[2019-04-18] MEDS: ASPIRIN 81 MG CHEWABLE TABLETS PO SCH (10:44)
[2019-04-18] MEDS: CLOPIDOGREL BISULFATE 75 MG TABLET (FP) PO SCH (10:44)
[2019-04-18] MEDS: HEPARIN NA (PORCINE) 5,000 UNITS/ML 1ML VIAL SQ SCH ×2 (10:44→21:31)
[2019-04-18] MEDS: LISINOPRIL 5 MG TABLET (FP) PO SCH (10:44)
[2019-04-18] MEDS: EZETIMIBE 10 MG TABLET (FP) PO SCH (10:45)
--- NOTE | 2019-04-18 11:36 | PN ---
Progress Note, Physician History of Present Illness: stable no new issues - Current Medication List Current Medications: Active Medications Acetaminophen (Tylenol -) 650 mg PO Q6H PRN PRN Reason: FEVER Last Admin: 04/14/19 22:14 Dose: 650 mg Al Hydroxide/Mg Hydroxide (Mylanta Oral Suspension -) 30 ml PO Q6HPO PRN PRN Reason: DYSPEPSIA Albuterol Sulfate (Ventolin 0.083% Nebulizer Soln -) 1 amp NEB RQID [facility] Last Admin: 04/18/19 07:45 Dose: Not Given Aspirin (Asa -) 81 mg PO DAILY [facility] Last Admin: 04/18/19 10:44 Dose: 81 mg Atorvastatin Calcium (Lipitor -) 40 mg PO HS [facility] Last Admin: 04/17/19 21:37 Dose: 40 mg Carvedilol (Coreg -) 12.5 mg PO BID [facility] Last Admin: 04/18/19 10:43 Dose: 12.5 mg Clopidogrel Bisulfate (Plavix -) 75 mg PO DAILY [facility] Last Admin: 04/18/19 10:44 Dose: 75 mg Docusate Sodium (Colace -) 100 mg PO TID [facility] Last Admin: 04/18/19 06:42 Dose: 100 mg Ezetimibe (Zetia -) 10 mg PO DAILY [facility] Last Admin: 04/18/19 10:45 Dose: 10 mg Furosemide (Lasix -) 20 mg PO DAILY [facility] Last Admin: 04/18/19 10:43 Dose: 20 mg Gabapentin (Neurontin -) 600 mg PO TID [facility] Last Admin: 04/18/19 06:42 Dose: 600 mg Heparin Sodium (Porcine) (Heparin -) 5,000 unit SQ BID [facility] Last Admin: 04/18/19 10:44 Dose: 5,000 unit Vancomycin HCl (Vancomycin (Pre-Docked)) 1,000 mg in 250 mls @ 166.667 mls/hr IVPB DAILY@1930 [facility]; Protocol Last Admin: 04/17/19 21:04 Dose: 166.667 mls/hr Insulin Aspart (Novolog Vial Sliding Scale -) 1 vial SQ ACHS [facility]; Protocol Last Admin: 04/18/19 06:42 Dose: Not Given Insulin Detemir (Levemir Vial) 20 units SQ [facility] Last Admin: 04/17/19 21:32 Dose: 20 units Levothyroxine Sodium (Synthroid -) 88 mcg PO AM [facility] Last Admin: 04/18/19 06:42 Dose: 88 mcg Lisinopril (Prinivil) 2.5 mg PO DAILY [facility] Last Admin: 04/18/19 10:44 Dose: 2.5 mg Lorazepam (Ativan -) 0.5 mg PO BID PRN PRN Reason: ANXIETY Last Admin: 04/14/19 22:16 Dose: 0.5 mg Pantoprazole Sodium (Protonix -) 40 mg PO DAILY [facility] Last Admin: 04/18/19 10:43 Dose: 40 mg Polyethylene Glycol (Miralax (For Daily Use) -) 17 gm PO DAILY [facility] Last Admin: 04/18/19 10:43 Dose: 17 gm Ranolazine (Ranexa -) 500 mg PO BID [facility] Last Admin: 04/18/19 10:43 Dose: 500 mg Senna (Senna -) 2 tab PO HS PRN PRN Reason: CONSTIPATION Last Admin: 04/15/19 21:13 Dose: 2 tab - Objective Vital Signs: Vital Signs Temperature 98.3 F 04/18/19 06:00 Pulse Rate 64 04/18/19 06:00 Respiratory Rate 20 04/18/19 06:00 Blood Pressure 140/80 04/18/19 06:00 O2 Sat by Pulse Oximetry (%) 96 04/17/19 09:00 Constitutional: Yes: No Distress, Calm Cardiovascular: Yes: S1, S2 Respiratory: Yes: Regular, CTA Bilaterally Gastrointestinal: Yes: Normal Bowel Sounds, Soft Musculoskeletal: Yes: WNL Extremities: Yes: Other Wound/Incision: Yes: Clean/Dry Neurological: Yes: Alert, Oriented Psychiatric: Yes: Alert, Oriented Labs: CBC, BMP 04/17/19 07:30 04/17/19 07:30 INR, PTT INR 1.11 (0.83-1.09) H 04/06/19 13:20 Assessment/Plan Problem List - Problems (1) Cellulitis Code(s): L03.90 - CELLULITIS, UNSPECIFIED (2) S/P CABG (coronary artery bypass graft) Code(s): Z95.1 - PRESENCE OF AORTOCORONARY BYPASS GRAFT (3) Type 2 diabetes mellitus Code(s): E11.9 - TYPE 2 DIABETES MELLITUS WITHOUT COMPLICATIONS Qualifiers: Diabetes mellitus 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 terminal 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 insulin use: unspecified longterm insulin use status Diabetes mellitus complication status: with neurologic complications Diabetes mellitus complication detail: with polyneuropathy Qualified Code(s): E11.42 - Type 2 diabetes mellitus with diabetic polyneuropathy (4) COPD (chronic obstructive pulmonary disease) Assessment/Plan: cookie prn Code(s): J44.9 - CHRONIC OBSTRUCTIVE PULMONARY DISEASE, UNSPECIFIED (5) CAD (coronary artery disease) Code(s): I25.10 - ATHSCL HEART DISEASE OF [place] CORONARY ARTERY W/O ANG PCTRS Qualifiers: Coronary Disease-Associated Artery/Lesion type: [place] artery [place] vs. transplanted heart: [place] heart Associated angina: with unstable angina Qualified Code(s): I25.110 - Atherosclerotic heart disease of [place] coronary artery with unstable angina pectoris (6) CHF (congestive heart failure) Code(s): I50.9 - HEART FAILURE, UNSPECIFIED Qualifiers: Heart failure type: unspecified Heart failure chronicity: acute on chronic Qualified Code(s): I50.9 - Heart failure, unspecified (7) CKD (chronic kidney disease) stage 3, GFR 30-59 ml/min Code(s): N18.3 - CHRONIC KIDNEY DISEASE, STAGE 3 (MODERATE) (8) Prophylactic measure Code(s): Z29.9 - ENCOUNTER FOR PROPHYLACTIC MEASURES, UNSPECIFIED plan continue current mgmt rest as per the team xiomarao for 3 weeks more wound care vanco trough before the 4th dose follow cbc esr crp and bmp weekly
--- NOTE | 2019-04-18 11:40 | DS ---
Physical Exam: SUBJECTIVE: Patient seen and examined. sitting in chair, in no acute distress. friends at bedside. OBJECTIVE: Discharge home without patient Vancomycin 1000mg x 3 weeks via picc line. per Dr. Mahajan. pre and post prior to d/c Patient is an 83 year old female with a significant past medical history of hypertension, diabetes 2, hld, CHF, GERD, neuropathy, chronic diffuse pain, hypothyroidism, chronic L great toe osteomyelitis, S/P CABG (coronary artery bypass graft)and NSTEMI. Patient presents from her doctors office on 2018 for left 4th toe redness with left 4th toe ulcer and redness from this toe that extends up to her anterior left foot. She had a hospitalization 1 year ago for prior gangrene/infection to 1st toe on left foot. No recent injury or falls, no trauma of this foot. foot xray is negative for acute fracture. Patient treated initially with zosyn and transitioned to Vancomycin for left foot 4th toe osteomyelitis. She is s/p angiogram. Patient to be discharged home with Vancomycin 1000mg x 3 weeks for osteomyelitis of left toe. Vital Signs Period Temp Pulse Resp BP Sys/Ibarra Pulse Ox Last 24 Hr 97.0 F-98.3 F 50-64 19-20 124-140/59-80 PHYSICAL EXAM GENERAL: Awake, alert with episodes of anxiety. HEAD: Normal with no signs of trauma. EYES: Pupils equal, round and reactive to light, extraocular movements intact, sclera anicteric, conjunctiva clear. No lid lag. EARS, NOSE, THROAT: Ears normal, nares patent, oropharynx clear without exudates. Moist mucous membranes. NECK: Normal range of motion, supple without lymphadenopathy, JVD, or masses. LUNGS: diminished bilaterally HEART: Regular rate and rhythm ABDOMEN: Soft, nontender, obese abdomen MUSCULOSKELETAL: Normal range of motion at all joints. No bony deformities or tenderness. No CVA tenderness. UPPER EXTREMITIES: 2+ pulses, warm, well-perfused. No cyanosis. No clubbing. No peripheral edema. LOWER EXTREMITIES: left foot left foot appears mildly erythematous from 4th toe to the anterior of foot. left great toe with small ulcer. s/p angiogram. 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. LABS Laboratory Results - last 24 hr 04/17/19 04/17/1904/17/19 12:00 17:36 21:28 POC Glucometer 245 197 186 04/18/19 04/18/19 06:40 11:13 POC Glucometer 103 259 HOSPITAL COURSE: Date of Admission:04/06/19 Date of Discharge: 04/18/19 Minutes to complete discharge: 60 Discharge Summary Problems reviewed: Yes Reason For Visit: CELLULITIS Current Active Problems HAROLDO (acute kidney injury) (Acute) Acute on chronic systolic (congestive) heart failure (Acute) Anemia (Acute) Cellulitis (Acute) Diabetic ulcer of toe associated with diabetes mellitus due to underlying condition (Acute) Osteomyelitis (Acute) PAD (peripheral artery disease) (Acute) Prophylactic measure (Acute) S/P CABG (coronary artery bypass graft) (Chronic) Type 2 diabetes mellitus (Chronic) Condition: Guarded - Instructions Diet, Activity, Other Instructions: Podiatry to care for your toe wounds and if unable to heal may require further vascular intervention. Follow up with Dr. Lance as an outpatient in the office for further vascular care. Vancomycin 1000mg daily for [address] Mahajan (ID). Continue wound care Monitor vanco trough before the 4th dose follow CBC, ESR, CRP and BMP weekly Referrals: Raman Mahajan MD [Staff Physician] - Verna Adams MD [Primary Care Provider] - Pravin Lance MD [Staff Physician] - Omer Capellan MD [Staff Physician] - Disposition: CARE HOME FACILITY - Home Medications Comprehensive Discharge Medication List: Ambulatory Orders Aspirin [ASA -] 81 mg PO DAILY 08/20/17 Carvedilol [Coreg -] 12.5 mg PO BID 08/20/17 Levothyroxine [Synthroid -] 88 mcg PO DAILY 08/20/17 Ranolazine [Ranexa] 500 mg PO BID 08/20/17 Atorvastatin Ca [Lipitor] 40 mg PO HS #30 tablet 09/21/17 Gabapentin [Neurontin -] 600 mg PO TID 02/25/18 Insulin Detemir [Levemir Flextouch] 35 unit SQ HS 02/25/18 Magnesium Hydrox 2400MG/30Ml [Milk of Magnesia -] 30 ml PO DAILY PRN cup Clopidogrel Bisulfate [Plavix -] 75 mg PO DAILY tablet 08/24/18 Docusate Sodium [Colace -] 300 mg PO HS capsule 08/24/18 Ezetimibe [Zetia -] 10 mg PO DAILY tablet 08/24/18 Furosemide [Lasix -] 20 mg PO DAILY tablet 08/24/18 Insulin Sliding Scale [Novolog Vial Sliding Scale -] 1 vial SQ ACHS units 08/24 Nitroglycerin Sublingual [Nitrostat -] 0.4 mg SL Q5M PRN tab 08/24/18 Pantoprazole Sodium [Protonix -] 40 mg PO DAILY tablet.ec 08/24/18 Polyethylene Glycol 3350 [Miralax 119 gm Btl -] 17 gm PO DAILY bottle 08/24/18 Sennosides [Senna -] 2 tab PO HS tablet 08/24/18 Acetaminophen 650 mg PO DAILY PRN MDD 1950 09/08/18 Lisinopril [Prinivil] 2.5 mg PO DAILY tablet 04/18/19 Problem List - Problems (1) Shortness of breath Assessment/Plan: continue on 2 liters of nasal cannula with stable oxygen saturations. pre and post ordered prior to d/c as patient had a recent pre and post which shows she qualifies for home oxygen. pulmonary following and recommendations noted and appreciated. Code(s): R06.02 - SHORTNESS OF BREATH (2) Cellulitis Assessment/Plan: cellulitis 4th toe left/wound 4th toe left followed by vascular (Dr. Bell) and Dr Read (podiatry) Patient to continue iv antibiotic as an outpatient ID following. 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 insulin use: unspecified senior living insulin use status Diabetes mellitus complication status: with neurologic complications Diabetes mellitus complication detail: with polyneuropathy Qualified Code(s): E11.42 - Type 2 diabetes mellitus with diabetic polyneuropathy (5) COPD (chronic obstructive pulmonary disease) Assessment/Plan: duonebs prn Code(s): J44.9 - CHRONIC OBSTRUCTIVE PULMONARY DISEASE, UNSPECIFIED (6) CAD (coronary artery disease) Assessment/Plan: continue home meds Code(s): I25.10 - ATHSCL HEART DISEASE OF [place] CORONARY ARTERY W/O ANG PCTRS Qualifiers: Coronary Disease-Associated Artery/Lesion type: [place] artery [place] vs. transplanted heart: [place] heart Associated angina: with unstable angina Qualified Code(s): I25.110 - Atherosclerotic heart disease of [place] coronary artery with unstable angina pectoris (7) CHF (congestive heart failure) Assessment/Plan: on lasix 20 Code(s): I50.9 - HEART FAILURE, UNSPECIFIED Qualifiers: Heart failure type: unspecified Heart failure chronicity: acute on chronic Qualified Code(s): I50.9 - Heart failure, unspecified (8) CKD (chronic kidney disease) stage 3, GFR 30-59 ml/min Assessment/Plan: daily monitoring of kidney function appears to be at her baseline Code(s): N18.3 - CHRONIC KIDNEY DISEASE, STAGE 3 (MODERATE) (9) Prophylactic measure Assessment/Plan: fen toleraring po stop ivf monitor electrolyes full code Code(s): Z29.9 - ENCOUNTER FOR PROPHYLACTIC MEASURES, UNSPECIFIED This patient is new to me today: No Emergency Visit: Yes ED Registration Date: 04/06/19 Care time: The patient presented to the Emergency Department on the above date and was hospitalized for further evaluation of their emergent condition. Critical Care patient: No - Discharge Referral Referred to [facility] Med P.C.: No
[2019-04-18] MEDS ORDERED: INSULIN (NOVOLOG) ASPART 100 UNITS/ML 10ML VIAL ONE ×4 (11:56→21:07)
[2019-04-18 11:57] LABS: HEMATOCRIT 27.6 % (32.4-45.2); HEMOGLOBIN 9.4 GM/dL (10.7-15.3); MCH 31.4 pg (25.7-33.7); MCHC 33.9 g/dl (32.0-36.0); MEAN CELL VOLUME 92.6 fl (80-96); MEAN PLT VOLUME 7.9 fl (7.5-11.1); PLATELET COUNT 349 K/MM3 (134-434); RBC 2.98 M/mm3 (3.60-5.2); WHITE BLOOD COUNT 8.4 K/mm3 (4.0-10.0)
[2019-04-18 12:14] LABS: BLOOD UREA NITROGEN 11.7 mg/dL (7-18); CALCIUM 8.9 mg/dL (8.5-10.1); CREATININE 1.1 mg/dL (0.55-1.3)
--- NOTE | 2019-04-18 17:10 | PN ---
Progress Note, Physician History of Present Illness: Pt seen and examined at bedside. She is awake and alert. She denies shortness of breath. - Current Medication List Current Medications: Active Medications Acetaminophen (Tylenol -) 650 mg PO Q6H PRN PRN Reason: FEVER Last Admin: 04/14/19 22:14 Dose: 650 mg Al Hydroxide/Mg Hydroxide (Mylanta Oral Suspension -) 30 ml PO Q6HPO PRN PRN Reason: DYSPEPSIA Albuterol Sulfate (Ventolin 0.083% Nebulizer Soln -) 1 amp NEB RQID [facility] Last Admin: 04/18/19 16:10 Dose: 1 amp Aspirin (Asa -) 81 mg PO DAILY [facility] Last Admin: 04/18/19 10:44 Dose: 81 mg Atorvastatin Calcium (Lipitor -) 40 mg PO HS [facility] Last Admin: 04/17/19 21:37 Dose: 40 mg Carvedilol (Coreg -) 12.5 mg PO BID [facility] Last Admin: 04/18/19 10:43 Dose: 12.5 mg Clopidogrel Bisulfate (Plavix -) 75 mg PO DAILY [facility] Last Admin: 04/18/19 10:44 Dose: 75 mg Docusate Sodium (Colace -) 100 mg PO TID [facility] Last Admin: 04/18/19 13:32 Dose: 100 mg Ezetimibe (Zetia -) 10 mg PO DAILY [facility] Last Admin: 04/18/19 10:45 Dose: 10 mg Furosemide (Lasix -) 20 mg PO DAILY [facility] Last Admin: 04/18/19 10:43 Dose: 20 mg Gabapentin (Neurontin -) 600 mg PO TID [facility] Last Admin: 04/18/19 13:32 Dose: 600 mg Heparin Sodium (Porcine) (Heparin -) 5,000 unit SQ BID [facility] Last Admin: 04/18/19 10:44 Dose: 5,000 unit Vancomycin HCl (Vancomycin (Pre-Docked)) 1,000 mg in 250 mls @ 166.667 mls/hr IVPB DAILY@1930 [facility]; Protocol Last Admin: 04/17/19 21:04 Dose: 166.667 mls/hr Insulin Aspart (Novolog Vial Sliding Scale -) 1 vial SQ [facility]; Protocol Last Admin: 04/18/19 12:04 Dose: 8 units Insulin Detemir (Levemir Vial) 20 units SQ [facility] Last Admin: 04/17/19 21:32 Dose: 20 units Levothyroxine Sodium (Synthroid -) 88 mcg PO AM [facility] Last Admin: 04/18/19 06:42 Dose: 88 mcg Lisinopril (Prinivil) 2.5 mg PO DAILY [facility] Last Admin: 04/18/19 10:44 Dose: 2.5 mg Lorazepam (Ativan -) 0.5 mg PO BID PRN PRN Reason: ANXIETY Last Admin: 04/14/19 22:16 Dose: 0.5 mg Pantoprazole Sodium (Protonix -) 40 mg PO DAILY [facility] Last Admin: 04/18/19 10:43 Dose: 40 mg Polyethylene Glycol (Miralax (For Daily Use) -) 17 gm PO DAILY [facility] Last Admin: 04/18/19 10:43 Dose: 17 gm Ranolazine (Ranexa -) 500 mg PO BID [facility] Last Admin: 04/18/19 10:43 Dose: 500 mg Senna (Senna -) 2 tab PO HS PRN PRN Reason: CONSTIPATION Last Admin: 04/15/19 21:13 Dose: 2 tab - Objective Vital Signs: Vital Signs Temperature 98.0 F 04/18/19 14:00 Pulse Rate 66 04/18/19 15:00 Respiratory Rate 20 04/18/19 14:00 Blood Pressure 165/71 04/18/19 14:00 O2 Sat by Pulse Oximetry (%) 97 04/18/19 15:00 Constitutional: Yes: Calm Eyes: Yes: Conjunctiva Clear HENT: Yes: Atraumatic Neck: Yes: Supple Cardiovascular: Yes: S1, S2 Respiratory: Yes: CTA Bilaterally, On Nasal O2 Gastrointestinal: Yes: Soft, Abdomen, Obese Genitourinary: Yes: WNL Musculoskeletal: Yes: WNL Edema: No Neurological: Yes: Oriented Psychiatric: Yes: Oriented Labs: CBC, BMP 04/18/19 11:00 04/18/19 11:00 INR, PTT INR 1.11 (0.83-1.09) H 04/06/19 13:20 Problem List - Problems (1) HAROLDO (acute kidney injury) Code(s): N17.9 - ACUTE KIDNEY FAILURE, UNSPECIFIED (2) Acute on chronic systolic (congestive) heart failure Code(s): I50.23 - ACUTE ON CHRONIC SYSTOLIC (CONGESTIVE) HEART FAILURE (3) Anemia Code(s): D64.9 - ANEMIA, UNSPECIFIED (4) Cellulitis Code(s): L03.90 - CELLULITIS, UNSPECIFIED Assessment/Plan Current Medications Generic Name Dose Route Start Last Admin Trade Name Freq PRN Reason Stop Dose Admin Acetaminophen 650 mg 04/12/19 12:52 04/14/19 22:14 Tylenol - PO 650 mg Q6H PRN Administration FEVER Al Hydroxide/Mg Hydroxide 30 ml 04/13/19 08:42 Mylanta Oral Suspension - PO Q6HPO PRN DYSPEPSIA Albuterol Sulfate 1 amp 04/12/19 16:00 04/18/19 16:10 Ventolin 0.083% Nebulizer Soln - NEB 1 amp RQID [facility] Administration Aspirin 81 mg 04/13/19 10:00 04/18/19 10:44 Asa - PO 81 mg DAILY [facility] Administration Atorvastatin Calcium 40 mg 04/12/19 22:00 04/17/19 21:37 Lipitor - PO 40 mg HS [facility] Administration Carvedilol 12.5 mg 04/12/19 22:00 04/18/19 10:43 Coreg - PO 12.5 mg BID [facility] Administration Clopidogrel Bisulfate 75 mg 04/13/19 10:00 04/18/19 10:44 Plavix - PO 75 mg DAILY [facility] Administration Docusate Sodium 100 mg 04/13/19 14:00 04/18/19 13:32 Colace - PO 100 mg TID [facility] Administration Ezetimibe 10 mg 04/13/19 10:00 04/18/19 10:45 Zetia - PO 10 mg DAILY [facility] Administration Furosemide 20 mg 04/15/19 10:00 04/18/19 10:43 Lasix - PO 20 mg DAILY [facility] Administration Gabapentin 600 mg 04/12/19 14:00 04/18/19 13:32 Neurontin - PO 600 mg TID [facility] Administration Heparin Sodium (Porcine) 5,000 unit 04/12/19 22:00 04/18/19 10:44 Heparin - SQ 5,000 unit BID [facility] Administration Vancomycin HCl 1,000 mg in 250 mls @ 166.667 mls/hr 04/16/19 19:30 04/17/19 21:04 Vancomycin (Pre-Docked) IVPB 166.667 mls/hr DAILY@1930 [facility] Administration Protocol Insulin Aspart 1 vial 04/12/19 16:30 04/18/19 12:04 Novolog Vial Sliding Scale - SQ 8 units ACHS [facility] Administration Protocol Insulin Detemir 20 units 04/12/19 22:00 04/17/19 21:32 Levemir Vial SQ 20 units HS [facility] Administration Levothyroxine Sodium 88 mcg 04/13/19 07:00 04/18/19 06:42 Synthroid - PO 88 mcg AM [facility] Administration Lisinopril 2.5 mg 04/15/19 10:00 04/18/19 10:44 Prinivil PO 2.5 mg DAILY [facility] Administration Lorazepam 0.5 mg 04/13/19 15:36 04/14/19 22:16 Ativan - PO 0.5 mg BID PRN Administration ANXIETY Pantoprazole Sodium 40 mg 04/13/19 10:00 04/18/19 10:43 Protonix - PO 40 mg DAILY [facility] Administration Polyethylene Glycol 17 gm 04/13/19 10:00 04/18/19 10:43 Miralax (For Daily Use) - PO 17 gm DAILY [facility] Administration Ranolazine 500 mg 04/12/19 22:00 04/18/19 10:43 Ranexa - PO 500 mg BID [facility] Administration Senna 2 tab 04/13/19 22:00 04/15/19 21:13 Senna - PO 2 tab HS PRN Administration CONSTIPATION Impression 1. hyponatremia 2. cellulitis 3. htn 4. chf 5. cad 6. ckd 7. hx cva 8. PAD Plan - cont lasix - fluid restriction - heart healthy diet - will need better glucose control - renal function is stable - avoid nephrotoxins - avoid nsaids
[2019-04-18] MEDS: VANCOMYCIN 1 GRAM (PRE-DOCKED) 1,000 MG/250 ML BAG IVPB SCH (19:59)
[2019-04-18] MEDS: INSULIN (LEVEMIR) 100 UNITS/ML UNITS SQ SCH (21:28)
[2019-04-18] MEDS: ATORVASTATIN CA 40 MG TABLET (FP) PO SCH (21:32)
--- NOTE | 2019-04-18 21:47 | PN ---
Progress Note (short form) - Note Progress Note: fuv left foot vss +improved wound and cellulitis left foot, wbc=8.4 om resolved cellulitis will follow. betadine dressing between 4th and 5th toes. tx toe outpatient once dc with ivabx, hbo and wound care.
[2019-04-19] MEDS: INSULIN SLIDING SCALE (NOVOLOG) 1 VIAL SQ SCH ×3 (06:28→17:08)
[2019-04-19] MEDS: GABAPENTIN 300 MG CAPSULE PO SCH ×2 (06:29→16:31)
[2019-04-19] MEDS: DOCUSATE SODIUM 100 MG CAPSULE (FP) PO SCH ×2 (06:30→16:32)
[2019-04-19] MEDS: LEVOTHYROXINE NA 88 MCG TABLET (FP) PO SCH (06:30)
[2019-04-19] MEDS: ALBUTEROL SO4 0.083% IH SOL 2.5 MG/3 ML VIAL.NEB. NEB SCH ×3 (07:25→15:05)
--- NOTE | 2019-04-19 09:58 | PN ---
Physical Exam: SUBJECTIVE: Patient seen and examined. OBJECTIVE: Discharge home without patient Vancomycin 1000mg x 3 weeks via picc line. per Dr. Mahajan. pre and post prior to d/c Patient is an 83 year old female with a significant past medical history of hypertension, diabetes 2, hld, CHF, GERD, neuropathy, chronic diffuse pain, hypothyroidism, chronic L great toe osteomyelitis, S/P CABG (coronary artery bypass graft)and NSTEMI. Patient presents from her doctors office on 2018 for left 4th toe redness with left 4th toe ulcer and redness from this toe that extends up to her anterior left foot. She had a hospitalization 1 year ago for prior gangrene/infection to 1st toe on left foot. No recent injury or falls, no trauma of this foot. foot xray is negative for acute fracture. Patient treated initially with zosyn and transitioned to Vancomycin for left foot 4th toe osteomyelitis. She is s/p angiogram. Patient to be discharged home with Vancomycin 1000mg x 3 weeks for osteomyelitis of left toe. awaiting picc line, awaiting oxygen therapy, then can be discharged. Vital Signs Period Temp Pulse Resp BP Sys/Ibarra Pulse Ox Last 24 Hr 98 F-98.2 F 53-66 18-20 102-165/42-71 97 GENERAL: Awake, alert with episodes of anxiety. HEAD: Normal with no signs of trauma. EYES: Pupils equal, round and reactive to light, extraocular movements intact, sclera anicteric, conjunctiva clear. No lid lag. EARS, NOSE, THROAT: Ears normal, nares patent, oropharynx clear without exudates. Moist mucous membranes. NECK: Normal range of motion, supple without lymphadenopathy, JVD, or masses. LUNGS: diminished bilaterally HEART: Regular rate and rhythm ABDOMEN: Soft, nontender, obese abdomen MUSCULOSKELETAL: Normal range of motion at all joints. No bony deformities or tenderness. No CVA tenderness. UPPER EXTREMITIES: 2+ pulses, warm, well-perfused. No cyanosis. No clubbing. No peripheral edema. LOWER EXTREMITIES: left foot left foot appears mildly erythematous from 4th toe to the anterior of foot. left great toe with small ulcer. s/p angiogram. 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. Laboratory Results - last 24 hr 04/18/19 04/18/1919 11:00 11:00 11:13 WBC 8.4 RBC 2.98 L Hgb 9.4 L Hct 27.6 L MCV 92.6 MCH 31.4 MCHC 33.9 RDW 14.0 Plt Count 349 MPV 7.9 Sodium 131 L Potassium 5.0 Chloride 92 L Carbon Dioxide 36 H Anion Gap 3 L BUN 11.7 Creatinine 1.1 Est GFR (CKD-EPI)AfAm 53.77 Est GFR (CKD-EPI)NonAf 46.39 POC Glucometer 259 Random Glucose 240 H Calcium 8.9 04/18/19 04/18/19 04/19/19 17:23 21:06 06:26 WBC RBC Hgb Hct MCV MCH MCHC RDW Plt Count MPV Sodium Potassium Chloride Carbon Dioxide Anion Gap BUN Creatinine Est GFR (CKD-EPI)AfAm Est GFR (CKD-EPI)NonAf POC Glucometer 235 202 123 Random Glucose Calcium Active Medications Generic Name Dose Route Start Last Admin Trade Name Freq PRN Reason Stop Dose Admin Acetaminophen 650 mg 04/12/19 12:52 04/14/19 22:14 Tylenol - PO 650 mg Q6H PRN Administration FEVER Al Hydroxide/Mg Hydroxide 30 ml 04/13/19 08:42 Mylanta Oral Suspension - PO Q6HPO PRN DYSPEPSIA Albuterol Sulfate 1 amp 04/12/19 16:00 04/19/19 07:25 Ventolin 0.083% Nebulizer Soln - NEB 1 amp RQID [facility] Administration Aspirin 81 mg 04/13/19 10:00 04/18/19 10:44 Asa - PO 81 mg DAILY [facility] Administration Atorvastatin Calcium 40 mg 04/12/19 22:00 04/18/19 21:32 Lipitor - PO 40 mg HS [facility] Administration Carvedilol 12.5 mg 04/12/19 22:00 04/18/19 21:30 Coreg - PO 12.5 mg BID [facility] Administration Clopidogrel Bisulfate 75 mg 04/13/19 10:00 04/18/19 10:44 Plavix - PO 75 mg DAILY [facility] Administration Docusate Sodium 100 mg 04/13/19 14:00 04/19/19 06:30 Colace - PO 100 mg TID [facility] Administration Ezetimibe 10 mg 04/13/19 10:00 04/18/19 10:45 Zetia - PO 10 mg DAILY [facility] Administration Furosemide 20 mg 04/15/19 10:00 04/18/19 10:43 Lasix - PO 20 mg DAILY [facility] Administration Gabapentin 600 mg 04/12/19 14:00 04/19/19 06:29 Neurontin - PO 600 mg TID [facility] Administration Heparin Sodium (Porcine) 5,000 unit 04/12/19 22:00 04/18/19 21:31 Heparin - SQ 5,000 unit BID [facility] Administration Vancomycin HCl 1,000 mg in 250 mls @ 166.667 mls/hr 04/16/19 19:30 04/18/19 19:59 Vancomycin (Pre-Docked) IVPB 166.667 mls/hr DAILY@1930 [facility] Administration Protocol Insulin Aspart 1 vial 04/12/19 16:30 04/19/19 06:28 Novolog Vial Sliding Scale - SQ Not Given ACHS [facility] Protocol Insulin Detemir 20 units 04/12/19 22:00 04/18/19 21:28 Levemir Vial SQ 20 units HS [facility] Administration Levothyroxine Sodium 88 mcg 04/13/19 07:00 04/19/19 06:30 Synthroid - PO 88 mcg AM [facility] Administration Lisinopril 2.5 mg 04/15/19 10:00 04/18/19 10:44 Prinivil PO 2.5 mg DAILY [facility] Administration Lorazepam 0.5 mg 04/13/19 15:36 04/14/19 22:16 Ativan - PO 0.5 mg BID PRN Administration ANXIETY Pantoprazole Sodium 40 mg 04/13/19 10:00 04/18/19 10:43 Protonix - PO 40 mg DAILY [facility] Administration Polyethylene Glycol 17 gm 04/13/19 10:00 04/18/19 10:43 Miralax (For Daily Use) - PO 17 gm DAILY [facility] Administration Ranolazine 500 mg 04/12/19 22:00 04/18/19 21:32 Ranexa - PO 500 mg BID [facility] Administration Senna 2 tab 04/13/19 22:00 04/15/19 21:13 Senna - PO 2 tab HS PRN Administration CONSTIPATION ASSESSMENT/PLAN: Problem List - Problems (1) Shortness of breath Assessment/Plan: continue on 2 liters of nasal cannula with stable oxygen saturations. pre and post ordered prior to d/c as patient had a recent pre and post which shows she qualifies for home oxygen. pulmonary following and recommendations noted and appreciated, outpatient follow up Code(s): R06.02 - SHORTNESS OF BREATH (2) Cellulitis Assessment/Plan: cellulitis 4th toe left/wound 4th toe left followed by vascular (Dr. Bell) and Dr Read (podiatry) Patient to continue iv antibiotic as an outpatient ID following. Code(s): L03.90 - CELLULITIS, UNSPECIFIED (3) S/P CABG (coronary artery bypass graft) Assessment/Plan: continue home meds no chest pain Code(s): Z95.1 - PRESENCE OF AORTOCORONARY BYPASS GRAFT (4) Type 2 diabetes mellitus Assessment/Plan: novolg and levemir diabetic diet a1c 9.6 continue home insulin Code(s): E11.9 - TYPE 2 DIABETES MELLITUS WITHOUT COMPLICATIONS Qualifiers: Diabetes mellitus [facility] insulin use: unspecified intermediate accountant insulin use status Diabetes mellitus complication status: with neurologic complications Diabetes mellitus complication detail: with polyneuropathy Qualified Code(s): E11.42 - Type 2 diabetes mellitus with diabetic polyneuropathy (5) COPD (chronic obstructive pulmonary disease) Assessment/Plan: duonebs prn Code(s): J44.9 - CHRONIC OBSTRUCTIVE PULMONARY DISEASE, UNSPECIFIED (6) CAD (coronary artery disease) Assessment/Plan: continue home meds Code(s): I25.10 - ATHSCL HEART DISEASE OF [place] CORONARY ARTERY W/O ANG PCTRS Qualifiers: Coronary Disease-Associated Artery/Lesion type: [place] artery [place] vs. transplanted heart: [place] heart Associated angina: with unstable angina Qualified Code(s): I25.110 - Atherosclerotic heart disease of [place] coronary artery with unstable angina pectoris (7) CHF (congestive heart failure) Assessment/Plan: on lasix 20 Code(s): I50.9 - HEART FAILURE, UNSPECIFIED Qualifiers: Heart failure type: unspecified Heart failure chronicity: acute on chronic Qualified Code(s): I50.9 - Heart failure, unspecified (8) CKD (chronic kidney disease) stage 3, GFR 30-59 ml/min Assessment/Plan: daily monitoring of kidney function appears to be at her baseline Code(s): N18.3 - CHRONIC KIDNEY DISEASE, STAGE 3 (MODERATE) (9) Prophylactic measure Assessment/Plan: discharge home Code(s): Z29.9 - ENCOUNTER FOR PROPHYLACTIC MEASURES, UNSPECIFIED Visit type - Emergency Visit Emergency Visit: Yes ED Registration Date: 04/06/19 Care time: The patient presented to the Emergency Department on the above date and was hospitalized for further evaluation of their emergent condition. - New Patient This patient is new to me today: No - Critical Care Critical Care patient: No - Discharge Referral Referred to [facility] No
[2019-04-19 10:06] VITALS: TEMP 97.6
--- NOTE | 2019-04-19 10:31 | PN ---
Progress Note, Physician History of Present Illness: Denies dyspnea or orthopnea. 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 Plan for 3 week Vanco via PICC line. - Current Medication List Current Medications: Active Medications Acetaminophen (Tylenol -) 650 mg PO Q6H PRN PRN Reason: FEVER Last Admin: 04/14/19 22:14 Dose: 650 mg Al Hydroxide/Mg Hydroxide (Mylanta Oral Suspension -) 30 ml PO Q6HPO PRN PRN Reason: DYSPEPSIA Albuterol Sulfate (Ventolin 0.083% Nebulizer Soln -) 1 amp NEB RQID [facility] Last Admin: 04/19/19 07:25 Dose: 1 amp Aspirin (Asa -) 81 mg PO DAILY [facility] Last Admin: 04/18/19 10:44 Dose: 81 mg Atorvastatin Calcium (Lipitor -) 40 mg PO HS [facility] Last Admin: 04/18/19 21:32 Dose: 40 mg Carvedilol (Coreg -) 12.5 mg PO BID [facility] Last Admin: 04/18/19 21:30 Dose: 12.5 mg Clopidogrel Bisulfate (Plavix -) 75 mg PO DAILY [facility] Last Admin: 04/18/19 10:44 Dose: 75 mg Docusate Sodium (Colace -) 100 mg PO TID [facility] Last Admin: 04/19/19 06:30 Dose: 100 mg Ezetimibe (Zetia -) 10 mg PO DAILY [facility] Last Admin: 04/18/19 10:45 Dose: 10 mg Furosemide (Lasix -) 20 mg PO DAILY [facility] Last Admin: 04/18/19 10:43 Dose: 20 mg Gabapentin (Neurontin -) 600 mg PO TID [facility] Last Admin: 04/19/19 06:29 Dose: 600 mg Heparin Sodium (Porcine) (Heparin -) 5,000 unit SQ BID [facility] Last Admin: 04/18/19 21:31 Dose: 5,000 unit Vancomycin HCl (Vancomycin (Pre-Docked)) 1,000 mg in 250 mls @ 166.667 mls/hr IVPB DAILY@1930 [facility]; Protocol Last Admin: 04/18/19 19:59 Dose: 166.667 mls/hr Insulin Aspart (Novolog Vial Sliding Scale -) 1 vial SQ ACHS [facility]; Protocol Last Admin: 04/19/19 06:28 Dose: Not Given Insulin Detemir (Levemir Vial) 20 units SQ HS [facility] Last Admin: 04/18/19 21:28 Dose: 20 units Levothyroxine Sodium (Synthroid -) 88 mcg PO AM [facility] Last Admin: 04/19/19 06:30 Dose: 88 mcg Lisinopril (Prinivil) 2.5 mg PO DAILY [facility] Last Admin: 04/18/19 10:44 Dose: 2.5 mg Lorazepam (Ativan -) 0.5 mg PO BID PRN PRN Reason: ANXIETY Last Admin: 04/14/19 22:16 Dose: 0.5 mg Pantoprazole Sodium (Protonix -) 40 mg PO DAILY [facility] Last Admin: 04/18/19 10:43 Dose: 40 mg Polyethylene Glycol (Miralax (For Daily Use) -) 17 gm PO DAILY [facility] Last Admin: 04/18/19 10:43 Dose: 17 gm Ranolazine (Ranexa -) 500 mg PO BID [facility] Last Admin: 04/18/19 21:32 Dose: 500 mg Senna (Senna -) 2 tab PO HS PRN PRN Reason: CONSTIPATION Last Admin: 04/15/19 21:13 Dose: 2 tab - Objective Vital Signs: Vital Signs Temperature 97.6 F 04/19/19 10:05 Pulse Rate 54 L 04/19/19 10:05 Respiratory Rate 18 04/19/19 10:05 Blood Pressure 117/49 L 04/19/19 10:05 O2 Sat by Pulse Oximetry (%) 97 04/18/19 15:00 Constitutional: Yes: No Distress, Calm Neck: Yes: Supple Cardiovascular: Yes: Regular Rate and Rhythm Respiratory: Yes: Regular, Diminished Gastrointestinal: Yes: Normal Bowel Sounds, Soft, Abdomen, Obese Edema: No Labs: CBC, BMP 04/18/19 11:00 04/18/19 11:00 INR, PTT INR 1.11 (0.83-1.09) H 04/06/19 13:20 Assessment/Plan 08/19/2018 Echo: Mild-mod decreased LVEF 40-45% with AK in old LAD infarct, normal RV size and fxn, mild LAE, mild MR, mod TR 09/10/2017 Echo: (Old LAD infarct) mild-moderate decrease in LV systolic function, mild ISA, trace MR, severe apical septal and apical lateral hypokinesia Problem List - Problems (1) Acute on chronic systolic (congestive) heart failure Code(s): I50.23 - ACUTE ON CHRONIC SYSTOLIC (CONGESTIVE) HEART FAILURE (2) Anemia Code(s): D64.9 - ANEMIA, UNSPECIFIED (3) Cellulitis Code(s): L03.90 - CELLULITIS, UNSPECIFIED (4) Osteomyelitis Code(s): M86.9 - OSTEOMYELITIS, UNSPECIFIED (5) PAD (peripheral artery disease) Code(s): I73.9 - PERIPHERAL VASCULAR DISEASE, UNSPECIFIED (6) S/P CABG (coronary artery bypass graft) Code(s): Z95.1 - PRESENCE OF AORTOCORONARY BYPASS GRAFT (7) Type 2 diabetes mellitus Code(s): E11.9 - TYPE 2 DIABETES MELLITUS WITHOUT COMPLICATIONS Qualifiers: Diabetes mellitus exterminator helper termite insulin use: unspecified exterminator helper termite insulin use status Diabetes mellitus complication status: with neurologic complications Diabetes mellitus complication detail: with polyneuropathy Qualified Code(s): E11.42 - Type 2 diabetes mellitus with diabetic polyneuropathy (8) COPD (chronic obstructive pulmonary disease) Code(s): J44.9 - CHRONIC OBSTRUCTIVE PULMONARY DISEASE, UNSPECIFIED (9) CAD (coronary artery disease) Code(s): I25.10 - ATHSCL HEART DISEASE OF [place] CORONARY ARTERY W/O ANG PCTRS Qualifiers: Coronary Disease-Associated Artery/Lesion type: [place] artery [place] vs. transplanted heart: [place] heart Associated angina: with unstable angina Qualified Code(s): I25.110 - Atherosclerotic heart disease of [place] coronary artery with unstable angina pectoris (10) CKD (chronic kidney disease) stage 3, GFR 30-59 ml/min Code(s): N18.3 - CHRONIC KIDNEY DISEASE, STAGE 3 (MODERATE) (11) Hyperlipidemia Code(s): E78.5 - HYPERLIPIDEMIA, UNSPECIFIED Qualifiers: Hyperlipidemia type: pure hypercholesterolemia Qualified Code(s): E78.00 - Pure hypercholesterolemia, unspecified; E78.0 - Pure hypercholesterolemia (12) Hypertension Code(s): I10 - ESSENTIAL (PRIMARY) HYPERTENSION (13) Hypothyroidism Code(s): E03.9 - HYPOTHYROIDISM, UNSPECIFIED Qualifiers: Hypothyroidism type: unspecified Qualified Code(s): E03.9 - Hypothyroidism , unspecified Assessment/Plan 1. LV systolic dysfunction w/ history of failure 2. Pulmonary HTN 3. Resolving Cellulitis 4. T2DM 5. CAD s/p MA, CABG, angina pectoris 6. PAD with gangrene left 4th toe osteomyelitis s/p left popliteal angioplasty 7. Anemia 8. Hypothyroidism PLAN: 1. Continue Lasix 20 qd with monitor renal function and electrolytes 2. Continue Carvedilol 12.5 mg BID, Lipitor 40 mg QHS, Zetia 10 mg QD, lisinopril 2.5 qd and Ranexa 500 mg BID as tolerated 3. Continue ASA 81 mg QD and Plavix 75 mg QD 4. Complete antibiotic coverage via PICC line and wound care, HBO, toe amputation per podiatry
[2019-04-19] MEDS: PANTOPRAZOLE 40 MG TABLET PO SCH (11:31)
[2019-04-19] MEDS: FUROSEMIDE 20 MG TABLET (FP) PO SCH (11:31)
[2019-04-19] MEDS: HEPARIN NA (PORCINE) 5,000 UNITS/ML 1ML VIAL SQ SCH (11:32)
[2019-04-19] MEDS: CLOPIDOGREL BISULFATE 75 MG TABLET (FP) PO SCH (11:32)
--- NOTE | 2019-04-19 11:32 | PN ---
Progress Note, Physician - Current Medication List Current Medications: Active Medications Acetaminophen (Tylenol -) 650 mg PO Q6H PRN PRN Reason: FEVER Last Admin: 04/14/19 22:14 Dose: 650 mg Al Hydroxide/Mg Hydroxide (Mylanta Oral Suspension -) 30 ml PO Q6HPO PRN PRN Reason: DYSPEPSIA Albuterol Sulfate (Ventolin 0.083% Nebulizer Soln -) 1 amp NEB RQID [facility] Last Admin: 04/19/19 07:25 Dose: 1 amp Aspirin (Asa -) 81 mg PO DAILY [facility] Last Admin: 04/18/19 10:44 Dose: 81 mg Atorvastatin Calcium (Lipitor -) 40 mg PO HS [facility] Last Admin: 04/18/19 21:32 Dose: 40 mg Carvedilol (Coreg -) 12.5 mg PO BID [facility] Last Admin: 04/18/19 21:30 Dose: 12.5 mg Clopidogrel Bisulfate (Plavix -) 75 mg PO DAILY [facility] Last Admin: 04/18/19 10:44 Dose: 75 mg Docusate Sodium (Colace -) 100 mg PO TID [facility] Last Admin: 04/19/19 06:30 Dose: 100 mg Ezetimibe (Zetia -) 10 mg PO DAILY [facility] Last Admin: 04/18/19 10:45 Dose: 10 mg Furosemide (Lasix -) 20 mg PO DAILY [facility] Last Admin: 04/18/19 10:43 Dose: 20 mg Gabapentin (Neurontin -) 600 mg PO TID [facility] Last Admin: 04/19/19 06:29 Dose: 600 mg Heparin Sodium (Porcine) (Heparin -) 5,000 unit SQ BID [facility] Last Admin: 04/18/19 21:31 Dose: 5,000 unit Vancomycin HCl (Vancomycin (Pre-Docked)) 1,000 mg in 250 mls @ 166.667 mls/hr IVPB DAILY@1930 [facility]; Protocol Last Admin: 04/18/19 19:59 Dose: 166.667 mls/hr Insulin Aspart (Novolog Vial Sliding Scale -) 1 vial SQ ACHS [facility]; Protocol Last Admin: 04/19/19 06:28 Dose: Not Given Insulin Detemir (Levemir Vial) 20 units SQ HS [facility] Last Admin: 04/18/19 21:28 Dose: 20 units Levothyroxine Sodium (Synthroid -) 88 mcg PO AM [facility] Last Admin: 04/19/19 06:30 Dose: 88 mcg Lisinopril (Prinivil) 2.5 mg PO DAILY [facility] Last Admin: 04/18/19 10:44 Dose: 2.5 mg Lorazepam (Ativan -) 0.5 mg PO BID PRN PRN Reason: ANXIETY Last Admin: 04/14/19 22:16 Dose: 0.5 mg Pantoprazole Sodium (Protonix -) 40 mg PO DAILY [facility] Last Admin: 04/18/19 10:43 Dose: 40 mg Polyethylene Glycol (Miralax (For Daily Use) -) 17 gm PO DAILY [facility] Last Admin: 04/18/19 10:43 Dose: 17 gm Ranolazine (Ranexa -) 500 mg PO BID [facility] Last Admin: 04/18/19 21:32 Dose: 500 mg Senna (Senna -) 2 tab PO HS PRN PRN Reason: CONSTIPATION Last Admin: 04/15/19 21:13 Dose: 2 tab - Objective Vital Signs: Vital Signs Temperature 97.6 F 04/19/19 10:05 Pulse Rate 54 L 04/19/19 10:05 Respiratory Rate 18 04/19/19 10:05 Blood Pressure 117/49 L 04/19/19 10:05 O2 Sat by Pulse Oximetry (%) 97 04/18/19 15:00 Labs: CBC, BMP 04/18/19 11:00 04/18/19 11:00 INR, PTT INR 1.11 (0.83-1.09) H 04/06/19 13:20
[2019-04-19] MEDS: ASPIRIN 81 MG CHEWABLE TABLETS PO SCH (11:36)
[2019-04-19] MEDS: CARVEDILOL 12.5 MG TABLET (FP) PO SCH (11:37)
[2019-04-19] MEDS: LISINOPRIL 5 MG TABLET (FP) PO SCH (11:37)
[2019-04-19] MEDS: POLYETHYLENE GLYCOL 3350 119 GM BTL PO SCH (11:37)
[2019-04-19] MEDS: RANOLAZINE E.R. 500 MG TABLET (FP) PO SCH (11:38)
[2019-04-19] MEDS: EZETIMIBE 10 MG TABLET (FP) PO SCH (11:39)
[2019-04-19] MEDS ORDERED: INSULIN (NOVOLOG) ASPART 100 UNITS/ML 10ML VIAL ONE (11:43)
[2019-04-19 11:47] VITALS: BP 154/70; PULSE 55
--- NOTE | 2019-04-19 13:07 | PN ---
Progress Note, Physician History of Present Illness: Pt seen and examined. She denies shortness of breath. She is tolerating diet. She denies lower ext edema. - Current Medication List Current Medications: Active Medications Acetaminophen (Tylenol -) 650 mg PO Q6H PRN PRN Reason: FEVER Last Admin: 04/14/19 22:14 Dose: 650 mg Al Hydroxide/Mg Hydroxide (Mylanta Oral Suspension -) 30 ml PO Q6HPO PRN PRN Reason: DYSPEPSIA Albuterol Sulfate (Ventolin 0.083% Nebulizer Soln -) 1 amp NEB RQID [facility] Last Admin: 04/19/19 11:00 Dose: 1 amp Aspirin (Asa -) 81 mg PO DAILY [facility] Last Admin: 04/19/19 11:36 Dose: 81 mg Atorvastatin Calcium (Lipitor -) 40 mg PO HS [facility] Last Admin: 04/18/19 21:32 Dose: 40 mg Carvedilol (Coreg -) 12.5 mg PO BID [facility] Last Admin: 04/19/19 11:37 Dose: 12.5 mg Clopidogrel Bisulfate (Plavix -) 75 mg PO DAILY [facility] Last Admin: 04/19/19 11:32 Dose: 75 mg Docusate Sodium (Colace -) 100 mg PO TID [facility] Last Admin: 04/19/19 06:30 Dose: 100 mg Ezetimibe (Zetia -) 10 mg PO DAILY [facility] Last Admin: 04/19/19 11:39 Dose: 10 mg Furosemide (Lasix -) 20 mg PO DAILY [facility] Last Admin: 04/19/19 11:31 Dose: 20 mg Gabapentin (Neurontin -) 600 mg PO TID [facility] Last Admin: 04/19/19 06:29 Dose: 600 mg Heparin Sodium (Porcine) (Heparin -) 5,000 unit SQ BID [facility] Last Admin: 04/19/19 11:32 Dose: 5,000 unit Vancomycin HCl (Vancomycin (Pre-Docked)) 1,000 mg in 250 mls @ 166.667 mls/hr IVPB DAILY@1930 [facility]; Protocol Last Admin: 04/18/19 19:59 Dose: 166.667 mls/hr Insulin Aspart (Novolog Vial Sliding Scale -) 1 vial SQ ACHS [facility]; Protocol Last Admin: 04/19/19 11:42 Dose: 8 units Insulin Detemir (Levemir Vial) 20 units SQ [facility] Last Admin: 04/18/19 21:28 Dose: 20 units Levothyroxine Sodium (Synthroid -) 88 mcg PO AM [facility] Last Admin: 04/19/19 06:30 Dose: 88 mcg Lisinopril (Prinivil) 2.5 mg PO DAILY [facility] Last Admin: 04/19/19 11:37 Dose: 2.5 mg Lorazepam (Ativan -) 0.5 mg PO BID PRN PRN Reason: ANXIETY Last Admin: 04/14/19 22:16 Dose: 0.5 mg Pantoprazole Sodium (Protonix -) 40 mg PO DAILY [facility] Last Admin: 04/19/19 11:31 Dose: 40 mg Polyethylene Glycol (Miralax (For Daily Use) -) 17 gm PO DAILY [facility] Last Admin: 04/19/19 11:37 Dose: 17 gm Ranolazine (Ranexa -) 500 mg PO BID [facility] Last Admin: 04/19/19 11:38 Dose: 500 mg Senna (Senna -) 2 tab PO HS PRN PRN Reason: CONSTIPATION Last Admin: 04/15/19 21:13 Dose: 2 tab - Objective Vital Signs: Vital Signs Temperature 97.6 F 04/19/19 10:05 Pulse Rate 55 L 04/19/19 11:46 Respiratory Rate 18 04/19/19 11:46 Blood Pressure 154/70 04/19/19 11:46 O2 Sat by Pulse Oximetry (%) 97 04/18/19 15:00 Constitutional: Yes: Calm Eyes: Yes: Conjunctiva Clear HENT: Yes: Atraumatic Neck: Yes: Supple Cardiovascular: Yes: S1, S2 Respiratory: Yes: CTA Bilaterally Gastrointestinal: Yes: Soft Genitourinary: Yes: WNL Musculoskeletal: Yes: WNL Edema: No Neurological: Yes: Oriented Psychiatric: Yes: Oriented Labs: CBC, BMP 04/18/19 11:00 04/18/19 11:00 INR, PTT INR 1.11 (0.83-1.09) H 04/06/19 13:20 Problem List - Problems (1) HAROLDO (acute kidney injury) Code(s): N17.9 - ACUTE KIDNEY FAILURE, UNSPECIFIED (2) Acute on chronic systolic (congestive) heart failure Code(s): I50.23 - ACUTE ON CHRONIC SYSTOLIC (CONGESTIVE) HEART FAILURE (3) Anemia Code(s): D64.9 - ANEMIA, UNSPECIFIED (4) Cellulitis Code(s): L03.90 - CELLULITIS, UNSPECIFIED Assessment/Plan Current Medications Generic Name Dose Route Start Last Admin Trade Name Freq PRN Reason Stop Dose Admin Acetaminophen 650 mg 04/12/19 12:52 04/14/19 22:14 Tylenol - PO 650 mg Q6H PRN Administration FEVER Al Hydroxide/Mg Hydroxide 30 ml 04/13/19 08:42 Mylanta Oral Suspension - PO Q6HPO PRN DYSPEPSIA Albuterol Sulfate 1 amp 04/12/19 16:00 04/19/19 11:00 Ventolin 0.083% Nebulizer Soln - NEB 1 amp RQID [facility] Administration Aspirin 81 mg 04/13/19 10:00 04/19/19 11:36 Asa - PO 81 mg DAILY [facility] Administration Atorvastatin Calcium 40 mg 04/12/19 22:00 04/18/19 21:32 Lipitor - PO 40 mg HS [facility] Administration Carvedilol 12.5 mg 04/12/19 22:00 04/19/19 11:37 Coreg - PO 12.5 mg BID [facility] Administration Clopidogrel Bisulfate 75 mg 04/13/19 10:00 04/19/19 11:32 Plavix - PO 75 mg DAILY [facility] Administration Docusate Sodium 100 mg 04/13/19 14:00 04/19/19 06:30 Colace - PO 100 mg TID [facility] Administration Ezetimibe 10 mg 04/13/19 10:00 04/19/19 11:39 Zetia - PO 10 mg DAILY [facility] Administration Furosemide 20 mg 04/15/19 10:00 04/19/19 11:31 Lasix - PO 20 mg DAILY [facility] Administration Gabapentin 600 mg 04/12/19 14:00 04/19/19 06:29 Neurontin - PO 600 mg TID [facility] Administration Heparin Sodium (Porcine) 5,000 unit 04/12/19 22:00 04/19/19 11:32 Heparin - SQ 5,000 unit BID [facility] Administration Vancomycin HCl 1,000 mg in 250 mls @ 166.667 mls/hr 04/16/19 19:30 04/18/19 19:59 Vancomycin (Pre-Docked) IVPB 166.667 mls/hr DAILY@1930 [facility] Administration Protocol Insulin Aspart 1 vial 04/12/19 16:30 04/19/19 11:42 Novolog Vial Sliding Scale - SQ 8 units ACHS [facility] Administration Protocol Insulin Detemir 20 units 04/12/19 22:00 04/18/19 21:28 Levemir Vial SQ 20 units HS [facility] Administration Levothyroxine Sodium 88 mcg 04/13/19 07:00 04/19/19 06:30 Synthroid - PO 88 mcg AM [facility] Administration Lisinopril 2.5 mg 04/15/19 10:00 04/19/19 11:37 Prinivil PO 2.5 mg DAILY [facility] Administration Lorazepam 0.5 mg 04/13/19 15:36 04/14/19 22:16 Ativan - PO 0.5 mg BID PRN Administration ANXIETY Pantoprazole Sodium 40 mg 04/13/19 10:00 04/19/19 11:31 Protonix - PO 40 mg DAILY [facility] Administration Polyethylene Glycol 17 gm 04/13/19 10:00 04/19/19 11:37 Miralax (For Daily Use) - PO 17 gm DAILY [facility] Administration Ranolazine 500 mg 04/12/19 22:00 04/19/19 11:38 Ranexa - PO 500 mg BID [facility] Administration Senna 2 tab 04/13/19 22:00 04/15/19 21:13 Senna - PO 2 tab HS PRN Administration CONSTIPATION Impression 1. hyponatremia 2. cellulitis 3. htn 4. chf 5. cad 6. ckd 7. hx cva 8. PAD Plan - cont lasix - can cont lolly - renal function had been stable - pt tolerating diet - will need outpt follow up - avoid nephrotoxins - avoid nsaids
[2019-04-19] MEDS: VANCOMYCIN 1 GRAM (PRE-DOCKED) 1,000 MG/250 ML BAG IVPB SCH (16:34)
--- NOTE | 2019-06-02 14:03 | EKG ---
Test Reason : Blood Pressure : / mmHG Vent. Rate : 055 BPM Atrial Rate : 055 BPM P-R Int : 186 ms QRS Dur : 088 ms QT Int : 462 ms P-R-T Axes : 037 033 098 degrees QTc Int : 441 ms SINUS BRADYCARDIA CANNOT RULE OUT ANTERIOR INFARCT , AGE UNDETERMINED NONSPECIFIC T WAVE ABNORMALITY WHEN COMPARED WITH ECG OF 11-APR-2019 20:19, NO SIGNIFICANT CHANGE WAS FOUND Confirmed by MARIVEL LOPEZ MD ([id number]) on 06/02/2019 2:03:33 PM Referred By: Confirmed By:MARIVEL LOPEZ MD
== END 2019-04-19 19:25 | disposition home or self-care (01) | DRG 252 ==
LOC: JER 10:19 → JERBED 11:33 → J6S 20:55 → JSAMEDAYSX 04-12 14:51 → J8W 04-12 16:40
PROVIDERS: ADMIT Internal Medicine; ATTEND Nurse Practitioner Family
PROC: 047K3ZZ Dilation of Right Femoral Artery, Percutaneous Approach (ICD-10-PCS; 2019-04-12)
PROC: 047L3ZZ Dilation of Left Femoral Artery, Percutaneous Approach (ICD-10-PCS; principal; 2019-04-12 10:00)
PROC: 02HV33Z Insertion of Infusion Device into Superior Vena Cava, Percutaneous Approach (ICD-10-PCS; 2019-04-19)
DX: E11.51 Type 2 diabetes mellitus with diabetic peripheral angiopathy without gangrene (principal); I50.23 Acute on chronic systolic (congestive) heart failure; L03.116 Cellulitis of left lower limb; M86.9 Osteomyelitis, unspecified; E87.1 Hypo-osmolality and hyponatremia; N17.9 Acute kidney failure, unspecified; E11.621 Type 2 diabetes mellitus with foot ulcer; E11.69 Type 2 diabetes mellitus with other specified complication; E11.42 Type 2 diabetes mellitus with diabetic polyneuropathy; N18.3 Chronic kidney disease, stage 3 (moderate); L97.529 Non-pressure chronic ulcer of other part of left foot with unspecified severity; I73.9 Peripheral vascular disease, unspecified; I27.20 Pulmonary hypertension, unspecified; D64.9 Anemia, unspecified; E03.9 Hypothyroidism, unspecified; I25.119 Atherosclerotic heart disease of native coronary artery with unspecified angina pectoris; Z95.1 Presence of aortocoronary bypass graft; K21.9 Gastro-esophageal reflux disease without esophagitis; E78.5 Hyperlipidemia, unspecified; Z98.61 Coronary angioplasty status
CPT/HCPCS: 36415; 36569; 36600; 71045-TC-FY; 73630-TC-LT; 73718-TC-LT; 76000-TC-FY; 80048; 80053; 80061; 81003; 82803; 82962; 83036; 83605; 83721; 83735; 83880; 84439; 84443; 84484; 85025; 85027; 85610; 85651; 85730; 86140; 87040; 87070; 87077; 87086; 87186; 87205; 87804; 93005; 93010; 93306-TC; 94640; 94760; 94761; 97116-GP; 97161-GP; 99284-25; G0480; J0131; J1644; J7030

== ENCOUNTER 2019-04-20 09:24 | Day surgery (SDC) | payer MEDICARE, OTHER ==
[2019-04-20] MEDS ORDERED: VANCOMYCIN 1 GM in D5W (PRE-DOCKED) 1,000 MG/250 ML IVPB ONE (10:15)
[2019-04-20 18:33] VITALS: BP 167/59; PULSE 62; TEMP 97.7
== END 2019-04-20 12:03 | disposition home or self-care (01) ==
LOC: J7W 09:24 → JINFUSION 09:24
PROVIDERS: ATTEND Internal Medicine Infectious Disease
DX: E11.621 Type 2 diabetes mellitus with foot ulcer (principal); M86.9 Osteomyelitis, unspecified; L03.116 Cellulitis of left lower limb
CPT/HCPCS: 96365

== ENCOUNTER 2019-04-21 09:39 | Day surgery (SDC) | payer MEDICARE, OTHER ==
[2019-04-21] MEDS ORDERED: VANCOMYCIN 1 GRAM (PRE-DOCKED) 1,000 MG/250 ML BAG IVPB ONE ×2 (10:45→10:51)
[2019-04-21 15:40] VITALS: TEMP 98.6
[2019-04-21 15:42] VITALS: BP 92/42; PULSE 61
== END 2019-04-21 12:45 | disposition home or self-care (01) ==
LOC: JINFUSION 09:39 → J7W 09:39 → JINFUSION 12:45
PROVIDERS: ATTEND Internal Medicine Infectious Disease
DX: E11.621 Type 2 diabetes mellitus with foot ulcer (principal); M86.9 Osteomyelitis, unspecified; L03.116 Cellulitis of left lower limb
CPT/HCPCS: 96365; 96366

== ENCOUNTER 2019-04-22 09:57 | Day surgery (SDC) | payer MEDICARE, OTHER ==
[2019-04-22] MEDS ORDERED: VANCOMYCIN 1 GRAM (PRE-DOCKED) 1,000 MG/250 ML BAG IVPB ONE (10:30)
[2019-04-22 10:46] VITALS: BP 115/52; PULSE 67; TEMP 97.6
== END 2019-04-22 12:15 | disposition home or self-care (01) ==
LOC: JINFUSION 09:57 → J7W 09:58 → JINFUSION 12:15
PROVIDERS: ATTEND Internal Medicine Infectious Disease
DX: E11.621 Type 2 diabetes mellitus with foot ulcer (principal); M86.9 Osteomyelitis, unspecified; L03.116 Cellulitis of left lower limb
CPT/HCPCS: 96365; 96366

== ENCOUNTER 2019-04-23 11:41 | Day surgery (SDC) | payer MEDICARE, OTHER ==
[2019-04-23] MEDS ORDERED: VANCOMYCIN 1 GM in D5W (PRE-DOCKED) 1,000 MG/250 ML IVPB ONE (12:30)
[2019-04-23 13:01] VITALS: BP 150/45; PULSE 65; TEMP 97.7
== END 2019-04-23 14:20 | disposition home or self-care (01) ==
LOC: J7W 11:41 → JINFUSION 11:41
PROVIDERS: ATTEND Internal Medicine Infectious Disease
DX: E11.621 Type 2 diabetes mellitus with foot ulcer (principal); M86.9 Osteomyelitis, unspecified; L03.116 Cellulitis of left lower limb
CPT/HCPCS: 96365; G0480

== ENCOUNTER 2019-04-24 10:26 | Day surgery (SDC) | payer MEDICARE, OTHER ==
[~2019-04-24 10:26] MED LIST changes: -CEFTRIAXONE 2 GM in DEXTROSE 5%-WATER 100 ML IVPB ONE; +VANCOMYCIN 1 GM in D5W (PRE-DOCKED) 1,000 MG/250 ML IVPB ONE
[2019-04-24] MEDS ORDERED: VANCOMYCIN 1,000 MG in SODIUM CHLORIDE 250 ML IVPB ONE (11:00)
[2019-04-24 13:41] VITALS: BP 128/52; PULSE 66; TEMP 98.2
== END 2019-04-24 13:30 | disposition home or self-care (01) ==
LOC: JINFUSION 10:26
PROVIDERS: ATTEND Internal Medicine Infectious Disease
DX: E11.621 Type 2 diabetes mellitus with foot ulcer (principal); M86.9 Osteomyelitis, unspecified; L03.116 Cellulitis of left lower limb
CPT/HCPCS: 82962; 96365; 96366; G0277

== ENCOUNTER 2019-04-26 10:21 | Day surgery (SDC) | payer MEDICARE, OTHER ==
[2019-04-26 11:10] LABS: HEMATOCRIT 28.3 % (32.4-45.2); HEMOGLOBIN 9.4 GM/dL (10.7-15.3); MCH 30.4 pg (25.7-33.7); MCHC 33.2 g/dl (32.0-36.0); MEAN CELL VOLUME 91.8 fl (80-96); PLATELET COUNT 271 K/MM3 (134-434); RBC 3.08 M/mm3 (3.60-5.2); RDW 14.4 % (11.6-15.6); WHITE BLOOD COUNT 11.2 K/mm3 (4.0-10.0)
[2019-04-26 11:29] LABS: BLOOD UREA NITROGEN 33.6 mg/dL (7-18); CALCIUM 9.1 mg/dL (8.5-10.1); CREATININE 1.5 mg/dL (0.55-1.3); POTASSIUM 4.2 mmol/L (3.5-5.1)
[2019-04-26 11:44] LABS: ERYTHROCYTE SEDIMENTATION RATE 94 mm/hr (0-30)
[2019-04-26] MEDS ORDERED: VANCOMYCIN 1,000 MG in SODIUM CHLORIDE 250 ML IVPB ONE (12:00)
[2019-04-26 13:38] VITALS: TEMP 98
[2019-04-26 15:39] VITALS: BP 113/52; PULSE 63
== END 2019-04-26 12:18 | disposition home or self-care (01) ==
LOC: JINFUSION 10:21
PROVIDERS: ATTEND Internal Medicine Infectious Disease
DX: E11.621 Type 2 diabetes mellitus with foot ulcer (principal); M86.9 Osteomyelitis, unspecified; L03.116 Cellulitis of left lower limb
CPT/HCPCS: 36415; 80048; 85027; 85651; 86140; 96365; 96366

== ENCOUNTER 2019-04-26 14:25 | Inpatient (IN) | payer MEDICARE, OTHER ==
--- NOTE | 2019-04-26 14:37 | PDOC ---
Rapid Medical Evaluation Chief Complaint: Blood Pressure Problem Time Seen by Provider: 04/26/19 14:30 Medical Evaluation: Allergies Allergy/AdvReac Type Severity Reaction Status Date / Time No Known Drug Allergies Allergy Verified 04/26/19 14:35 Vital Signs Temp Pulse Resp BP Pulse Ox 98.1 F 64 19 122/38 L 96 04/26/19 14:32 04/26/19 14:32 04/26/19 14:32 04/26/19 14:32 04/26/19 14:32 04/26/19 14:35 Pt c/o: snt for low diastolic after receiving hyperbarics for foot wound , Pt is asymptomatic Pt on brief exam: 122/38, lcta, rrr Pt ordered for: ekg, Pt to proceed to the ED Discharge Disposition - Diagnosis Low blood pressure, Ruled out for myocardial infarction, Syncope - Discharge Dispostion Condition at time of disposition: Stable - Referrals - Patient Instructions - Post Discharge Activity
[2019-04-26 15:40] LABS: BASO % 0.5 % (0-2.0); EOS % 1.6 % (0-4.5); HEMATOCRIT 26.7 % (32.4-45.2); HEMOGLOBIN 8.8 GM/dL (10.7-15.3); LYMPH % 18.7 % (8-40); MCH 30.6 pg (25.7-33.7); MEAN CELL VOLUME 92.9 fl (80-96); MEAN PLT VOLUME 7.8 fl (7.5-11.1); MONO % 14.1 % (3.8-10.2); NEUT % 65.1 % (42.8-82.8); PLATELET COUNT 276 K/MM3 (134-434); RBC 2.87 M/mm3 (3.60-5.2); RDW 14.7 % (11.6-15.6); WHITE BLOOD COUNT 12.1 K/mm3 (4.0-10.0)
--- NOTE | 2019-04-26 15:41 | EKG ---
Test Reason : Blood Pressure : / mmHG Vent. Rate : 064 BPM Atrial Rate : 064 BPM P-R Int : 180 ms QRS Dur : 086 ms QT Int : 436 ms P-R-T Axes : 055 014 120 degrees QTc Int : 449 ms NORMAL SINUS RHYTHM ABNORMAL ECG WHEN COMPARED WITH ECG OF 11-APR-2019 20:20, T WAVE INVERSION LESS EVIDENT IN ANTERIOR LEADS T WAVE INVERSION NOW EVIDENT IN LATERAL LEADS Confirmed by MARTÍN MARTINEZ, JANICE ([id number]) on 04/26/2019 3:41:26 PM Referred By: Confirmed By:JANICE RESENDIZ MD
--- NOTE | 2019-04-26 15:46 | PDOC ---
History of Present Illness - General Chief Complaint: Blood Pressure Problem Stated Complaint: blood pressure problem Time Seen by Provider: 04/26/19 14:30 History Source: Patient, Family (son in law also is HCP) Exam Limitations: No Limitations - History of Present Illness Initial Comments: 04/26/19 15:11 84 yo female hypertension, diabetes 2, hld, CHF, GERD, neuropathy, chronic diffuse pain, hypothyroidism, chronic L great toe osteomyelitis, S/P CABG ( coronary artery bypass graft, on plavix)and NSTEMI, recently DC with PICC line for IV vanc for L foot osteomylitis presents to the ED from hyperbarics for low diastolic BP. Pt diastolic BP noted to be in the 30s on arrival however, pt had no medical complaints. After discussion with family and son in law who is the HCP, pt had a syncopal episode last night in bed that lasted 5 min, no fall/ head injury. Pt admits to CP last night prior to the episode that has since resolved. Denies current CP, SOB, back pain, abdominal pain, recent travel, calf tenderness, F/C/N/V, REYNA, confusion, neck pain. Past History - Past Medical History Allergies/Adverse Reactions: Allergies Allergy/AdvReac Type Severity Reaction Status Date / Time No Known Drug Allergies Allergy Verified 04/26/19 14:35 Home Medications: Ambulatory Orders Carvedilol [Coreg -] 6.25 mg PO BID 08/20/17 Levothyroxine [Synthroid -] 125 mcg PO DAILY 08/20/17 Ranolazine [Ranexa] 500 mg PO BID 08/20/17 Atorvastatin Ca [Lipitor] 40 mg PO HS #30 tablet 09/21/17 Gabapentin [Neurontin -] 600 mg PO TID 02/25/18 Insulin Detemir [Levemir Flextouch] 35 unit SQ ASDIR 02/25/18 Clopidogrel Bisulfate [Plavix -] 75 mg PO DAILY tablet 08/24/18 Ezetimibe [Zetia -] 10 mg PO DAILY tablet 08/24/18 Acetaminophen 650 mg PO DAILY PRN MDD 1950 09/08/18 Becaplermin [Regranex] 10 gm TP ASDIR 04/26/19 Docusate Sodium [Colace -] 100 mg PO HS 04/26/19 Furosemide [Lasix -] 40 mg PO DAILY 04/26/19 Insulin (Novolog 70/30) [Novolog Mix 70/30 Vial -] 0 ml SQ ASDIR 04/26/19 Insulin Sliding Scale [Novolog Vial Sliding Scale -] 0 vial SQ ACHS 04/26/19 Omeprazole 40 mg PO DAILY 04/26/19 Psyllium Husk [Metamucil] 2 cap PO TID 04/26/19 Ramipril 2.5 mg PO DAILY 04/26/19 Umeclidinium Brm/Vilanterol Tr [Anoro Ellipta 62.5-25 Mcg INH] 1 each IH ASDIR 04/26/19 Insulin (Levemir) [Levemir Vial] 35 units SQ HS units 04/28/19 Insulin Sliding Scale [Novolog Vial Sliding Scale -] 1 vial SQ TIDAC units 11/09 Pantoprazole Sodium [Protonix -] 40 mg PO DAILY tablet.ec 04/28/19 Polyethylene Glycol 3350 [Miralax 119 gm Btl -] 17 gm PO BID bottle 04/28/19 Psyllium [Metamucil (Sugar-Free) -] 5.85 gm PO BID packet 04/28/19 Anemia: No Asthma: No Cancer: No Cardiac Disorders: Yes (NSTEMI, CAD, Stents, CABG, Angina, D-CHF) CVA: Yes COPD: No CHF: Yes DVT: No Dementia: No Diabetes: Yes GI Disorders: Yes (Duodenal and gastric Ulcers, GERD) Disorders: Yes (Urosepsis - Ecoli ESBL in urine 01/2018) HTN: Yes Hypercholesterolemia: Yes Kidney Stones: (KIDNEY DIS) Liver Disease: No Seizures: No Thyroid Disease: No Other medical history: LEFT FOOT WOUND - Surgical History Abdominal Surgery: No Appendectomy: No Cardiac Surgery: Yes (CABG) Cholecystectomy: No Lung Surgery: No Neurologic Surgery: No Orthopedic Surgery: Yes (Rt elbow Sx) - Immunization History Td Vaccination: Yes TDAP Vaccination: Yes Immunization Up to Date: No - Psycho Social/Smoking Cessation Hx Smoking Status: No Smoking History: Never smoked Have you smoked in the past 12 months: No Number of Cigarettes Smoked Daily: 0 Information on smoking cessation initiated: No Hx Alcohol Use: No Drug/Substance Use Hx: No Substance Use Type: None Hx Substance Use Treatment: No Review of Systems - Review of Systems Constitutional: No: Chills, Fever HEENTM: No: Blurred Vision, Double Vision Respiratory: No: Shortness of Breath Cardiac (ROS): No: Chest Pain, Edema ABD/GI: No: Constipated, Diarrhea, Nausea, Vomiting : No: Burning, Dysuria, Frequency, Flank Pain Musculoskeletal: No: Back Pain Integumentary: No: Change in Color Neurological: No: Headache, Numbness, Paresthesia *Physical Exam - Vital Signs Last Vital Signs Temp Pulse Resp BP Pulse Ox 98.1 F 64 19 122/38 L 96 04/26/19 14:32 04/26/19 14:32 04/26/19 14:32 04/26/19 14:32 04/26/19 14:32 - Physical Exam General Appearance: Yes: Nourished, Appropriately Dressed. No: Apparent Distress HEENT: positive: EOMI, YANETH, Hearing Grossly Normal Neck: positive: Supple. negative: Carotid bruit Respiratory/Chest: positive: Lungs Clear, Normal Breath Sounds. negative: Respiratory Distress, Accessory Muscle Use, Crackles, Rales, Rhonchi, Stridor, Wheezing Cardiovascular: positive: Regular Rhythm, Regular Rate, S1, S2. negative: Edema , JVD, Murmur Vascular Pulses: Dorsalis-Pedis (R): 4+, Doralis-Pedis (L): 4+ Gastrointestinal/Abdominal: positive: Flat, Soft. negative: Pulsatile Mass, Protuberent, Distended, Guarding, Rebound, Tenderness Musculoskeletal: negative: CVA Tenderness Extremity: positive: Normal Capillary Refill, Normal Inspection Integumentary: positive: Normal Color, Dry, Warm Neurologic: positive: clinical data management director II-XII NML intact, Fully Oriented, Alert, Normal Mood/ Affect, Normal Response, Motor Strength 5/5. negative: Facial Droop, Numbness, Sensory Deficit, Confused, Disoriented ED Treatment Course - LABORATORY CBC & Chemistry Diagram: 04/28/19 05:30 04/28/19 05:30 - RADIOLOGY Radiology Studies Ordered: Category Date Time Status CHEST PA & LAT [RAD] Stat Radiology 04/26/19 14:59 Ordered Medical Decision Making - Medical Decision Making 04/26/19 16:35 84 yo female hypertension, diabetes 2, hld, CHF, GERD, neuropathy, chronic diffuse pain, hypothyroidism, chronic L great toe osteomyelitis, S/P CABG ( coronary artery bypass graft, on plavix)and NSTEMI, recently DC with PICC line for IV vanc for L foot osteomylitis presents to the ED from hyperbarics for low diastolic BP. Pt diastolic BP noted to be in the 30s on arrival however, pt had no medical complaints. After discussion with family and son in law who is the HCP, pt had a syncopal episode last night in bed that lasted 5 min, no fall/ head injury. Pt admits to CP last night prior to the episode that has since resolved. Denies current CP, SOB, back pain, abdominal pain, recent travel, calf tenderness, F/C/N/V, REYNA, confusion, neck pain. vitals show low diastolic BP throughout the day, lowest 29. In the ED 38 DDX INLT: ACS, dissection, PE, arrhythmia, Discharge - Discharge Information Clinical Impression/Diagnosis: Low blood pressure, Ruled out for myocardial infarction, Syncope Condition: Stable Disposition: [facility] - Admission Yes - Follow up/Referral - Patient Discharge Instructions - Post Discharge Activity
[2019-04-26 16:08] LABS: BILIRUBIN,TOTAL 0.6 mg/dL (0.2-1); BLOOD UREA NITROGEN 35.5 mg/dL (7-18); CALCIUM 8.4 mg/dL (8.5-10.1); CREATININE 1.5 mg/dL (0.55-1.3); POTASSIUM 4.5 mmol/L (3.5-5.1)
[2019-04-26 16:41] LABS: MAGNESIUM 2.2 mg/dL (1.8-2.4)
[2019-04-26 16:51] LABS: INR 1.13 (0.83-1.09); PROTHROMBIN TIME (PATIENT) 13.4 SEC (9.7-13.0)
[2019-04-26 16:54] LABS: ACTIVATED PTT 32.3 SECONDS (25.2-36.5)
--- NOTE | 2019-04-26 18:49 | PDOC ---
Documentation entered by Verna Meyer SCRIBE, acting as scribe for Tarun Muñoz MD. Tarun Muñoz MD: This documentation has been prepared by the Mitch hurt Maria, SCRIBE, under my direction and personally reviewed by me in its entirety. I confirm that the documentation accurately reflects all work, treatment, procedures, and medical decision making performed by me. Attending Attestation - Resident Resident Name: Nikolas Omer - ED Attending Attestation I have performed the following: I have examined & evaluated the patient, The case was reviewed & discussed with the resident, I agree w/resident's findings & plan, Exceptions are as noted - HPI HPI: 04/26/19 16:06 Patient is an 83 year old female with a significant past medical history of hypertension, diabetes 2, hld, CHF, GERD, neuropathy, chronic diffuse pain, hypothyroidism, chronic L great toe osteomyelitis, S/P CABG (coronary artery bypass graft)and NSTEMI who presents to the ED with low blood pressure. Pt denies current symptoms but as per patients son she had a syncopal episode last night that lasted 5 minutes while in bed. Pt's son states they were walking past the patients bed last nightwhen she was noted to be raising her arms up. When they went in to check in on her, she wasnt arousable or responsive for 2-3 minutes. Patient states she has chest pain prior to episode. Pt is a poor historian and can not elaborate on the CP. Denies similar sxs in the past. She denies recent fevers, chills, headache, focal weakness/numbness or dizziness. She denies recent nausea, vomiting, diarrhea or constipation. She denies recent dysuria, frequency, urgency or hematuria. She denies recent shortness of breath. - Physicial Exam PE: 04/26/19 18:44 Agree with resident exam - Medical Decision Making 04/26/19 18:45 84-year-old female presents the emergency department with low diastolic blood pressure at hyperbarics. Patient's family also reports unresponsive episode last night while the patient was in bed. Patient with no infectious symptoms, but diastolic blood pressure is low here in the emergency department. We will plan for labs and likely telemetry observation given unresponsive episode preceded by chest pain last night. Heart Score/ECG Review #1 04/26/19 18:45 Twelve-lead EKG was performed and reviewed by me. Normal sinus rhythm, rate 64. Normal axis. No ST elevations. T wave inversions in 1 and aVL, with ST depressions in V5 and V6. When compared to EKG from April 08, 2019, no significant changes.
--- NOTE | 2019-04-26 20:11 | PN ---
Teaching Attending Note Name of Resident: Pineda Olson ATTENDING PHYSICIAN STATEMENT I saw and evaluated the patient. I reviewed the resident's note and discussed the case with the resident. I agree with the resident's findings and plan as documented. SUBJECTIVE: Patient is an 83 year old woman with a PMH of Hypertension, NIDDM, HLD, CHF, GERD, Neuropathy, Chronic diffuse pain, Hypothyroidism, Chronic left great toe osteomyelitis, S/P CABG (coronary artery bypass graft) and NSTEMI who presents to the ER with low blood pressure. Patient denies current symptoms but as per patients son she had a syncopal episode last night that lasted 5 minutes while in bed. Her son states they were walking past the patients bed last night when she was noted to be raising her arms up. When they went in to check in on her, she wasn't arousable or responsive for 2-3 minutes. Patient states she had chest pain prior to episode. Patient is a poor historian and can not elaborate on the chest pain. Has had recent poor oral intake, nonproductive cough and chills. Has had constipation for about 3 months necessitating manual disimpaction. Was recently started on IV vancomycin via left arm PICC for osteomyelitis of the left big toe - missed the last 2 doses of vancomycin. Denies fevers, headache, focal weakness/numbness, dizziness, nausea, vomiting, diarrhea, dysuria, frequency, urgency, hematuria or SOB. Denies tobacco, alcohol or illicit drug use. No recent travel or sick contacts. FH of DM. On Home O2 for unclear reasons. OBJECTIVE: Alert and orthostatic Vital Signs Period Temp Pulse Resp BP Sys/Ibarra Pulse Ox Last 24 Hr 97.8 F-98.1 F 50-68 12-19 110-125/38-58 94-99 HEENT: No Jaundice, eye redness or discharge, PERRLA, EOMI. Normocephalic, atraumatic. External ears are normal and hearing is grossly intact. No nasal discharge. Neck: Supple, nontender. No palpable adenopathy or thyromegaly. No JVD Chest: Good effort. Clear to auscultation and percussion. Heart: Regular. No S3, rub or murmur Abdomen: Not distended, soft, RUQ tenderness and no HSM. No rebound or guarding. Normal bowel sounds. Ext: Peripheral pulses intact. No leg edema. Healed left big toe ulcer. Skin: Warm and dry. No petechiae, rash or ecchymosis. Neuro: Alert. Oriented x3. CN 2-12 grossly intact. Sensation grossly intact in all four extremities and DTR are symmetric. Psych: Appropriate mood and affect. Good insight. Current Medications Generic Name Dose Route Start Last Admin Trade Name Freq PRN Reason Stop Dose Admin Heparin Sodium (Porcine) 5,000 unit 04/26/19 22:00 Heparin - SQ TID [facility] Home Medications Medication Instructions Recorded Carvedilol [Coreg -] 6.25 mg PO BID 08/20/17 Levothyroxine [Synthroid -] 125 mcg PO DAILY 08/20/17 Ranolazine [Ranexa] 500 mg PO BID 08/20/17 Atorvastatin Ca [Lipitor] 40 mg PO HS #30 tablet 09/21/17 Gabapentin [Neurontin -] 600 mg PO TID 02/25/18 Insulin Detemir [Levemir Flextouch] 35 unit SQ ASDIR 02/25/18 Clopidogrel Bisulfate [Plavix -] 75 mg PO DAILY tablet 08/24/18 Ezetimibe [Zetia -] 10 mg PO DAILY tablet 08/24/18 Acetaminophen 650 mg PO DAILY PRN MDD 1950 09/08/18 Becaplermin [Regranex] 10 gm TP ASDIR 04/26/19 Docusate Sodium [Colace -] 100 mg PO HS 04/26/19 Furosemide [Lasix -] 40 mg PO DAILY 04/26/19 Insulin (Novolog 70/30) [Novolog 0 ml SQ ASDIR 04/26/19 Mix 70/30 Vial] Insulin Sliding Scale [Novolog 0 vial SQ ACHS 04/26/19 Vial Sliding Scale -] Omeprazole 40 mg PO DAILY 04/26/19 Psyllium Husk [Metamucil] 2 cap PO TID 04/26/19 Ramipril 2.5 mg PO DAILY 04/26/19 Umeclidinium Brm/Vilanterol Tr 1 each IH ASDIR 04/26/19 [Anoro Ellipta 62.5-25 Mcg INH] Abnormal Lab Results 04/26/19 04/26/19 04/26/19 15:30 15:30 15:30 WBC 12.1 H RBC 2.87 L Hgb 8.8 L Hct 26.7 L Monocytes % 14.1 H PT with INR 13.40 H INR 1.13 H D-Dimer Sodium 131 L Chloride 96 L Anion Gap 6 L BUN 35.5 H Creatinine 1.5 H Random Glucose 247 H Calcium 8.4 L AST 13 L Alkaline Phosphatase 130 H Albumin 3.0 L 04/26/19 16:56 WBC RBC Hgb Hct Monocytes % PT with INR INR D-Dimer 1551 H Sodium Chloride Anion Gap BUN Creatinine Random Glucose Calcium AST Alkaline Phosphatase Albumin ASSESSMENT AND PLAN: 1. Syncope - Cause is unclear. While dehydration may be the culprit, we will do sepsis work up, get urinalysis STAT and treat patient with IV Linezolid and Zosyn. Consult ID and Podiatry. Chest CTA didnot show pulmonary embolism, but showed bilateral interstitial and atelectatic changes. No acute abnormality noted on head CT. EKG shows NSR with chronic lateral ischemic changes and normal initial troponin. Will monitor on telemetry, get brain MRI and hydrate gently. Will continue comprehensive care for all of patients comorbid conditions. 2. Hypoalbuminemia - Possibly due to combined effects of malnutrition and inflammation associated with comorbid chronic conditions. Will ensure adequate dietary protein intake and also consult sofa back upholsterer. Urinalysis pending. 3. Uncontrolled DM For now, we will hold the home diabetes drugs and implement sliding scale insulin regimen. Provide comprehensive diabetes care with patient teaching and counseling about the importance of adherence to prescribed diabetes regimen, euglycemia, eye care and foot care. 4. CKD - Has risk factors for CKD. Will consult nephrology and avoid nephrotoxic agents such as NSAIDS, aminoglycosides, contrast dyes and certain Alternative medicine products. 5. Anemia - Likely partly due to CKD. Will do basic anemia work up including serial stool guaiacs, reticulocyte count and iron studies. Would benefit from Procrit therapy once iron replete. 6. Hypertension - Restart suitable outpatient antihypertensive drugs when clinically appropriate. Revise regimen to ensure [id number] excellent BP control and automobile travel club counselor patient on the injurious effects of uncontrolled hypertension. Nonpharmacologic measures to control hypertension like weight loss , salt restriction and exercise discussed. Importance of adherence to treatment regimen and attainment of normotension emphasized. 7. Obesity Counseled on the risks associated with obesity. Will provide patient all the necessary assistance, counseling and positive reinforcement to facilitate weight loss. Consult sofa back upholsterer. 8. DVT prophylaxis - Heparin 5000u sq tid. 9. Advance directives - DNR/DNI
--- NOTE | 2019-04-26 20:19 | HP ---
CHIEF COMPLAINT: Syncope PCP: Dr. Connors HISTORY OF PRESENT ILLNESS: 84 y/o male PMH HTN, HLD, insulin treated DM, CHF, GERD, CKD3b, hypothyroidism, chronic LEFT toe lesion/osteomyelitis, and NSTEMI s/p CABG brought in from [facility] after diastolic BP in the 30s. Current presentation started with increasing lethargy and an episode of AMS at home, last night, 25 Apr 2019. She was unable to ambulate and demonstrated tremulousness. The AMS was in bed when called - no seziure, tongue biting, aura, and LOC. She has had recent nausea, nonproductive cough, chills, and poor oral intake. The pt was sent home one week ago with PICC line for treatment of osteo but she missed 2 doses 2/2 inability to climb down stairs from 2nd floor at home where she lives with family. She denies urinary complaints. [id number] provide care for pt and described weekly stool disimpaction at home. She has seen optho 3months ago and has not seen a podiatrists; follows in wound care. Recent Travel: Denies PAST MEDICAL HISTORY: As above PAST SURGICAL HISTORY: CABG (1998), LEFT cataract (2014) Social History: Smoking: Denies Alcohol: Denies Drugs: Denies Allergies: No Known Drug Allergies Allergy (Verified 04/26/19 14:35) HOME MEDICATIONS: Medication Instructions Recorded Carvedilol [Coreg -] 6.25 mg PO BID 08/20/17 Levothyroxine [Synthroid -] 125 mcg PO DAILY 08/20/17 Ranolazine [Ranexa] 500 mg PO BID 08/20/17 Atorvastatin Ca [Lipitor] 40 mg PO HS #30 tablet 09/21/17 Gabapentin [Neurontin -] 600 mg PO TID 02/25/18 Insulin Detemir [Levemir Flextouch] 35 unit SQ ASDIR 02/25/18 Clopidogrel Bisulfate [Plavix -] 75 mg PO DAILY tablet 08/24/18 Ezetimibe [Zetia -] 10 mg PO DAILY tablet 08/24/18 Acetaminophen 650 mg PO DAILY PRN MDD 1950 09/08/18 Becaplermin [Regranex] 10 gm TP ASDIR 04/26/19 Docusate Sodium [Colace -] 100 mg PO HS 04/26/19 Furosemide [Lasix -] 40 mg PO DAILY 04/26/19 Insulin (Novolog 70/30) [Novolog 0 ml SQ ASDIR 04/26/19 Mix 70/30 Vial] Insulin Sliding Scale [Novolog 0 vial SQ ACHS 04/26/19 Vial Sliding Scale -] Omeprazole 40 mg PO DAILY 04/26/19 Psyllium Husk [Metamucil] 2 cap PO TID 04/26/19 Ramipril 2.5 mg PO DAILY 04/26/19 Umeclidinium Brm/Vilanterol Tr 1 each IH ASDIR 04/26/19 [Anoro Ellipta 62.5-25 Mcg INH] REVIEW OF SYSTEMS CONSTITUTIONAL: Absent: fever, chills, diaphoresis, generalized weakness, malaise, loss of appetite, weight change HEENT: Absent: rhinorrhea, nasal congestion, throat pain, throat swelling, difficulty swallowing, mouth swelling, ear pain, eye pain, visual changes CARDIOVASCULAR: Absent: chest pain, syncope, palpitations, irregular heart rate, lightheadedness , peripheral edema RESPIRATORY: Absent: cough, shortness of breath, dyspnea with exertion, orthopnea, wheezing, stridor, hemoptysis GASTROINTESTINAL: Absent: abdominal pain, abdominal distension, nausea, vomiting, diarrhea, constipation, melena, hematochezia GENITOURINARY: Absent: dysuria, frequency, urgency, hesitancy, hematuria, flank pain, genital pain MUSCULOSKELETAL: Absent: myalgia, arthralgia, joint swelling, back pain, neck pain SKIN: Absent: rash, itching, pallor HEMATOLOGIC/IMMUNOLOGIC: Absent: easy bleeding, easy bruising, lymphadenopathy, frequent infections ENDOCRINE: Absent: unexplained weight gain, unexplained weight loss, heat intolerance, cold intolerance NEUROLOGIC: Absent: headache, focal weakness or paresthesias, dizziness, unsteady gait, seizure, mental status changes, bladder or bowel incontinence PSYCHIATRIC: Absent: anxiety, depression, suicidal or homicidal ideation, hallucinations. PHYSICAL EXAMINATION Vital Signs - 24 hr 04/26/19 04/26/19 04/26/19 14:32 17:21 18:00 Temperature 98.1 F 97.8 F Pulse Rate 64 Pulse Rate [ 68 50 L Apical] Respiratory 19 18 12 Rate Blood Pressure 122/38 L Blood Pressure 125/58 L 110/57 L [Left Arm] O2 Sat by Pulse 96 94 L 99 Oximetry (%) Orthostatic POSITIVE GENERAL: AOx3, in mild distress. HEAD: NCAT, dry mucous membranes EYES: KRISTINA, EOMI, conjunctiva clear. ENT: Ears normal, nares patent, oropharynx clear without exudates. Moist mucous membranes. NECK: Normal range of motion, supple without lymphadenopathy, JVD, or masses. LUNGS: CTAB. No wheezes, and no crackles. No accessory muscle use. HEART: RRR s1 s2 ABDOMEN: Soft, BS present in all 4 quadrants, non-distended, no JVD, MUSCULOSKELETAL: No bony deformities or tenderness. No CVA tenderness. UPPER EXTREMITIES: 2+ pulses, warm, well-perfused. No cyanosis. No clubbing. No peripheral edema. LOWER EXTREMITIES: Healed LEFT great toe leasion, desqaumated LLE plantar surface, interdigital lesion 4th/5th LLe. 2+ pulses, warm, well-perfused. No calf tenderness. No peripheral edema. NEUROLOGICAL: No focal deficits. Cranial nerves II-XII intact. Normal speech. Gait not appreciated. PSYCHIATRIC: Cooperative. Good eye contact. Appropriate mood and affect. SKIN: Warm, dry, normal turgor, no rashes or lesions noted, normal capillary refill. Laboratory Results - last 24 hr 04/26/19 04/26/19 04/26/19 15:30 15:30 15:30 WBC 12.1 H RBC 2.87 L Hgb 8.8 L Hct 26.7 L MCV 92.9 MCH 30.6 MCHC 33.0 RDW 14.7 Plt Count 276 MPV 7.8 Absolute Neuts (auto) 7.9 Neutrophils % 65.1 Lymphocytes % 18.7 D Monocytes % 14.1 H Eosinophils % 1.6 Basophils % 0.5 Nucleated RBC % 0 PT with INR 13.40 H INR 1.13 H PTT (Actin FS) 32.3 D-Dimer Sodium 131 L Potassium 4.5 Chloride 96 L Carbon Dioxide 29 Anion Gap 6 L BUN 35.5 H Creatinine 1.5 H Est GFR (CKD-EPI)AfAm 36.70 Est GFR (CKD-EPI)NonAf 31.66 Random Glucose 247 H Calcium 8.4 L Magnesium 2.2 Total Bilirubin 0.6 AST 13 L ALT 17 Alkaline Phosphatase 130 H Creatine Kinase 58 Troponin I 0.03 Total Protein 7.0 Albumin 3.0 L 04/26/19 16:56 WBC RBC Hgb Hct MCV MCH MCHC RDW Plt Count MPV Absolute Neuts (auto) Neutrophils % Lymphocytes % Monocytes % Eosinophils % Basophils % Nucleated RBC % PT with INR INR PTT (Actin FS) D-Dimer 1551 H Sodium Potassium Chloride Carbon Dioxide Anion Gap BUN Creatinine Est GFR (CKD-EPI)AfAm Est GFR (CKD-EPI)NonAf Random Glucose Calcium Magnesium Total Bilirubin AST ALT Alkaline Phosphatase Creatine Kinase Troponin I Total Protein Albumin ASSESSMENT/PLAN: 84 y/o male PMH HTN, HLD, insulin treated DM, CHF, GERD, CKD3b, hypothyroidism, chronic LEFT toe lesion/osteomyelitis, and NSTEMI s/p CABG brought in from [facility] after diastolic BP in the 30s. Episode of AMS at home with h/o decreased PO intake and clinical evidence of dehydration. Left foot is likely site of infection, however must explore other sources. Pt recently treated with abx and missed dosing. # Syncope 2/2 dehydration/poor po intake; must r/o poss source of infection - UA, U cx - Blood cx - Orthostatic positive - IVF gently - FOBT stool occult - HOLD lasix - Brain MRI # Leukocytosis - LEFT LE possible nidus - PICC line in place - UA, U cx - IV linezolid and zosyn - Consult ID - Consult podiatry # Anemia - Anemia work up - Fe, TIBC, retic, FOBT # CKD 3B - Hydrate gently - Avoid nephrotoxic agents - Consult nephrology # DM - Hold home regimen - ISS ACHS # HTN - Cont. curent home regimen - HOLD lasix # HLD - Cont. curent home regimen #F/E/N - NS - Cont. to monitor - Regular diet # DVT prophylaxis - Heparin SQ # Disposition - Admit to tele/obs - Son, Joaquin Felix, is HCP and can be contacted at - Family orally conveyed DNR/DNI and would like to complete paperwork Pineda Olson MD Visit type - Emergency Visit Emergency Visit: Yes ED Registration Date: 04/26/19 Care time: The patient presented to the Emergency Department on the above date and was hospitalized for further evaluation of their emergent condition. - New Patient This patient is new to me today: Yes Date on this admission: 04/28/19 - Critical Care Critical Care patient: No ATTENDING PHYSICIAN STATEMENT I saw and evaluated the patient. I reviewed the resident's note and discussed the case with the resident. I agree with the resident's findings and plan as documented. SUBJECTIVE: OBJECTIVE: ASSESSMENT AND PLAN:
[2019-04-26] MEDS ORDERED: SODIUM PHOSPHATE/NA BIPHOS 133 ML ENEMA PR ONE (22:30)
[2019-04-26] MEDS ORDERED: LINEZOLID 600 MG PREMIX BAG 600 MG in PREMIX 300 IVPB SCH (22:45)
[2019-04-26 22:50] VITALS: BMI 30.1
[2019-04-26] MEDS ORDERED: ACETAMINOPHEN 325 MG TABLET (FP) PO PRN (23:44)
[2019-04-27] MEDS: HEPARIN NA (PORCINE) 5,000 UNITS/ML 1ML VIAL SQ SCH ×4 (00:12→21:57)
[2019-04-27] MEDS: POLYETHYLENE GLYCOL 3350 119 GM BTL PO SCH ×3 (00:12→21:57)
[2019-04-27] MEDS: SODIUM CHLORIDE 1,000 ML IV SCH ×2 (00:13→23:45)
[2019-04-27] MEDS: LINEZOLID 600 MG PREMIX BAG 600 MG/300 ML BAG IVPB SCH ×2 (00:14→11:24)
[2019-04-27] MEDS ORDERED: PIPERACILLIN/TAZOB 2.25 GM 2.25 GM in DEXTROSE 5%-WATER - 50 ML IVPB SCH ×2 (03:00→23:00)
[2019-04-27 04:38] LABS: PH,URINE 5.5 (5.0-8.0); URINE APPEARANCE CLOUDY; URINE BILIRUBIN NEGATIVE (NEGATIVE); URINE COLOR YELLOW; URINE GLUCOSE (UA) 3+ (NEGATIVE); URINE KETONE NEGATIVE (NEGATIVE); URINE LEUK ESTERASE NEGATIVE (NEGATIVE); URINE NITRITE NEGATIVE (NEGATIVE); URINE PROTEIN NEGATIVE (NEGATIVE)
[2019-04-27] MEDS ORDERED: BECAPLERMIN TP SCH (05:00)
[2019-04-27] MEDS ORDERED: INSULIN DETEMIR 35 UNIT SQ SCH (05:00)
[2019-04-27] MEDS ORDERED: PSYLLIUM HUSK PO SCH (06:00)
[2019-04-27] MEDS: GABAPENTIN 300 MG CAPSULE (FP) PO SCH ×3 (06:51→21:56)
[2019-04-27 07:21] LABS: HEMOGLOBIN 8.9 GM/dL (10.7-15.3); MCH 30.6 pg (25.7-33.7); MCHC 32.9 g/dl (32.0-36.0); MEAN CELL VOLUME 93.1 fl (80-96); MEAN PLT VOLUME 8.3 fl (7.5-11.1); PLATELET COUNT 260 K/MM3 (134-434); RDW 14.6 % (11.6-15.6); WHITE BLOOD COUNT 7.3 K/mm3 (4.0-10.0)
[2019-04-27] MEDS: INSULIN SLIDING SCALE (NOVOLOG) 1 VIAL SQ SCH ×3 (07:25→18:02)
[2019-04-27 07:49] LABS: BILIRUBIN,TOTAL 0.6 mg/dL (0.2-1); BLOOD UREA NITROGEN 31.9 mg/dL (7-18); CALCIUM 8.5 mg/dL (8.5-10.1); CREATININE 1.5 mg/dL (0.55-1.3); MAGNESIUM 2.4 mg/dL (1.8-2.4); PHOSPHOROUS 3.1 mg/dL (2.5-4.9); POTASSIUM 4.9 mmol/L (3.5-5.1); TOT PROT 6.8 g/dl (6.4-8.2)
--- NOTE | 2019-04-27 08:57 | PN ---
Progress Note, Physician History of Present Illness: 84 y/o F PMH HTN, HLD, insulin treated DM, CHF, GERD, hypothyroidism, chronic LEFT toe lesion/osteomyelitis, and NSTEMI s/p CAB[facility] diastolic BP in the 30s. Pt was recently discharge on 04/15 on IV abx. Naomi states she has been increasingly more lethargic past week with inability to ambulate in home She offeres no complaints presently. - Current Medication List Current Medications: Active Medications Acetaminophen (Tylenol -) 650 mg PO DAILY PRN PRN Reason: PAIN LEVEL 1-5 Atorvastatin Calcium (Lipitor -) 40 mg PO HS [facility] Carvedilol (Coreg -) 6.25 mg PO BID [facility] Clopidogrel Bisulfate (Plavix -) 75 mg PO DAILY [facility] Docusate Sodium (Colace -) 100 mg PO HS [facility] Ezetimibe (Zetia -) 10 mg PO DAILY [facility] Furosemide (Lasix -) 40 mg PO DAILY [facility] Gabapentin (Neurontin -) 600 mg PO TID [facility] Last Admin: 04/27/19 06:51 Dose: 600 mg Heparin Sodium (Porcine) (Heparin -) 5,000 unit SQ TID [facility] Last Admin: 04/27/19 06:50 Dose: 5,000 unit Piperacillin Sod/Tazobactam (Sod 2.25 gm/ Dextrose) 50 mls @ 100 mls/hr IVPB Q6H-IV [facility]; Protocol Linezolid 600 mg/ (Miscellaneous) 300 mls @ 300 mls/hr IVPB Q12H [facility]; Protocol Sodium Chloride (Normal Saline -) 1,000 mls @ 60 mls/hr IV ASDIR [facility] Last Admin: 04/27/19 00:13 Dose: 60 mls/hr Piperacillin Sod/Tazobactam (Sod 2.25 gm/ Dextrose) 50 mls @ 100 mls/hr IVPB Q6H-IV [facility]; Protocol Stop: 04/28/19 15:29 Linezolid (Zyvox 600 Mg Premix Bag (Restricted To Id) -) 600 mg in 300 mls @ 300 mls/hr IVPB Q12H [facility]; Protocol Stop: 04/27/19 11:59 Last Admin: 04/27/19 00:14 Dose: 300 mls/hr Insulin Aspart (Novolog Vial Sliding Scale -) 1 vial SQ TIDAC [facility]; Protocol Last Admin: 04/27/19 07:25 Dose: 8 units Levothyroxine Sodium (Synthroid -) 125 mcg PO DAILY [facility] Non-Formulary Medication (Becaplermin [Regranex]) 10 gm TP ASDIR [facility] Non-Formulary Medication (Insulin Detemir [Levemir Flextouch]) 35 unit SQ ASDIR [facility] Pantoprazole Sodium (Protonix -) 40 mg PO DAILY [facility] Polyethylene Glycol (Miralax (For Daily Use) -) 17 gm PO BID [facility] Last Admin: 04/27/19 00:12 Dose: 17 grams Psyllium Hydrophilic Mucilloid (Metamucil (Sugar-Free) -) 5.85 gm PO BID [facility] Ramipril (Altace -) 2.5 mg PO DAILY [facility] Ranolazine (Ranexa -) 500 mg PO BID [facility] Umeclidinium/Vilanterol (Anoro Ellipta 62.5-25 Mcg Inh) 1 puff IH DAILY [facility] - Objective Vital Signs: Vital Signs Temperature 98.8 F 04/27/19 06:00 Pulse Rate 74 04/27/19 06:00 Respiratory Rate 18 04/27/19 06:00 Blood Pressure 125/57 L 04/27/19 06:00 O2 Sat by Pulse Oximetry (%) 96 04/27/19 06:00 Additional Findings/Remarks: GENERAL: Awake, alert HEAD: Normal with no signs of trauma. EYES: Pupils equal, round and reactive to light, extraocular movements intact, sclera anicteric, conjunctiva clear. No lid lag. EARS, NOSE, THROAT: Ears normal, nares patent, oropharynx clear without exudates. Moist mucous membranes. NECK: Normal range of motion, supple without lymphadenopathy, JVD, or masses. LUNGS: diminished bilaterally HEART: Regular rate and rhythm ABDOMEN: Soft, nontender, obese abdomen MUSCULOSKELETAL: Normal range of motion at all joints. No bony deformities or tenderness. No CVA tenderness. UPPER EXTREMITIES: 2+ pulses, warm, well-perfused. No cyanosis. No clubbing. No peripheral edema. LOWER EXTREMITIES: left foot left foot appears mildly erythematous from 4th toe to the anterior of foot. left great toe with small ulcer. NEUROLOGICAL: No focal deficits. Cranial nerves II-XII intact. Normal speech. Gait not appreciated. PSYCHIATRIC: Cooperative. Good eye contact. Appropriate mood and affect. 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 due to underlying condition Assessment/Plan: followed in wound clinc/hyperbaric therapy Code(s): E08.621 - DIABETES MELLITUS DUE TO UNDERLYING CONDITION W FOOT ULCER; L97.509 - NON-PRESSURE CHRONIC ULCER OTH PRT UNSP FOOT W UNSP SEVERITY Qualifiers: Laterality: left Non-pressure ulcer stage: unspecified non-pressure ulcer stage Qualified Code(s): E08.621 - Diabetes mellitus due to underlying condition with foot ulcer; L97.529 - Non-pressure chronic ulcer of other part of left foot with unspecified severity (4) Prophylactic measure Assessment/Plan: FEN diabetic diet no additional fluids needed monitor electrolytes DVT heparin sq c/w plavix Dispo mainatin on tele Son, Joaquin Felix, is HCP and can be contacted at Family orally conveyed DNR/DNI and would like to complete paperwork SW working on SNF , family in [place] Code(s): Z29.9 - ENCOUNTER FOR PROPHYLACTIC MEASURES, UNSPECIFIED (5) Dementia Assessment/Plan: supportive care Code(s): F03.90 - UNSPECIFIED DEMENTIA WITHOUT BEHAVIORAL DISTURBANCE Qualifiers: Dementia type: unspecified type Dementia behavioral disturbance: without behavioral disturbance Qualified Code(s): F03.90 - Unspecified dementia without behavioral disturbance (6) Diabetic neuropathy Assessment/Plan: c.w gabapentin Code(s): E11.40 - TYPE 2 DIABETES MELLITUS WITH DIABETIC NEUROPATHY, UNSP (7) GERD (gastroesophageal reflux disease) Assessment/Plan: c/w protonix Code(s): K21.9 - GASTRO-ESOPHAGEAL REFLUX DISEASE WITHOUT ESOPHAGITIS (8) Hyperlipidemia Assessment/Plan: c/w statin Code(s): E78.5 - HYPERLIPIDEMIA, UNSPECIFIED Qualifiers: Hyperlipidemia type: pure hypercholesterolemia Qualified Code(s): E78.00 - Pure hypercholesterolemia, unspecified; E78.0 - Pure hypercholesterolemia (9) Hypertension Assessment/Plan: BP meds being held, will reintroduce when BP remains stable Code(s): I10 - ESSENTIAL (PRIMARY) HYPERTENSION (10) Hypothyroidism Assessment/Plan: c/y synthroid Code(s): E03.9 - HYPOTHYROIDISM, UNSPECIFIED Qualifiers: Hypothyroidism type: unspecified Qualified Code(s): E03.9 - Hypothyroidism , unspecified (11) S/P CABG (coronary artery bypass graft) Assessment/Plan: history of c/w plavix, statin, Code(s): Z95.1 - PRESENCE OF AORTOCORONARY BYPASS GRAFT (12) NSTEMI (non-ST elevated myocardial infarction) Assessment/Plan: history of Code(s): I21.4 - NON-ST ELEVATION (NSTEMI) MYOCARDIAL INFARCTION (13) Diabetes Assessment/Plan: BGM AC/HS with novolog sliding scale \c/w levemir diabetic diet Code(s): E11.9 - TYPE 2 DIABETES MELLITUS WITHOUT COMPLICATIONS (14) Osteomyelitis Assessment/Plan: seen by Dr Weiss c/w miguel, stopping all other abx Code(s): M86.9 - OSTEOMYELITIS, UNSPECIFIED Visit type - Emergency Visit Emergency Visit: Yes ED Registration Date: 04/26/19 Care time: The patient presented to the Emergency Department on the above date and was hospitalized for further evaluation of their emergent condition. - New Patient This patient is new to me today: Yes Date on this admission: 04/27/19 - Critical Care Critical Care patient: No - Discharge Referral Referred to [facility] Med P.C.: No
[2019-04-27] MEDS ORDERED: PATIENT'S OWN MEDICATION (NON-FORMULARY) (Omeprazole [Omeprazole] 40 MG) PO SCH (10:00)
[2019-04-27] MEDS ORDERED: LINEZOLID 600 MG TABLET (RESTRICTED TO ID) PO SCH (10:00)
[2019-04-27] MEDS: FUROSEMIDE 40 MG TABLET (FP) PO SCH (11:00)
[2019-04-27] MEDS: CLOPIDOGREL BISULFATE 75 MG TABLET (FP) PO SCH (11:00)
[2019-04-27] MEDS: LEVOTHYROXINE NA 125 MCG TABLET (FP) PO SCH (11:01)
[2019-04-27] MEDS: EZETIMIBE 10 MG TABLET (FP) PO SCH (11:02)
[2019-04-27] MEDS: PANTOPRAZOLE 40 MG TABLET (FP) PO SCH (11:04)
[2019-04-27] MEDS: RAMIPRIL 2.5 MG CAPSULE (FP) PO SCH (11:04)
[2019-04-27] MEDS: CARVEDILOL 6.25 MG TABLET (FP) PO SCH ×2 (11:05→21:56)
[2019-04-27] MEDS: RANOLAZINE E.R. 500 MG TABLET (FP) PO SCH ×2 (11:24→21:58)
--- NOTE | 2019-04-27 11:40 | CON.ID ---
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) Endocrine: Yes: Diabetes Mellitus, Hypothyroidism - Alcohol/Substance Use Hx Alcohol Use: No - Smoking History Smoking history: Never smoked Have you smoked in the past 12 months: Yes Aproximately how many cigarettes per day: 0 Home Medications - Allergies Allergies/Adverse Reactions: Allergies Allergy/AdvReac Type Severity Reaction Status Date / Time No Known Drug Allergies Allergy Verified 04/26/19 14:35 - Home Medications Home Medications: Ambulatory Orders RX: Carvedilol [Coreg -] 6.25 mg PO BID 08/20/17 RX: Levothyroxine [Synthroid -] 125 mcg PO DAILY 08/20/17 RX: Ranolazine [Ranexa] 500 mg PO BID 08/20/17 RX: Atorvastatin Ca [Lipitor] 40 mg PO HS #30 tablet 09/21/17 RX: Gabapentin [Neurontin -] 600 mg PO TID 02/25/18 RX: Insulin Detemir [Levemir Flextouch] 35 unit SQ ASDIR 02/25/18 RX: Clopidogrel Bisulfate [Plavix -] 75 mg PO DAILY tablet 08/24/18 RX: Ezetimibe [Zetia -] 10 mg PO DAILY tablet 08/24/18 RX: Acetaminophen 650 mg PO DAILY PRN MDD 1950 09/08/18 Becaplermin [Regranex] 10 gm TP ASDIR 04/26/19 Insulin (Novolog 70/30) [Novolog Mix 70/30 Vial] 0 ml SQ ASDIR 04/26/19 Psyllium Husk [Metamucil] 2 cap PO TID 04/26/19 RX: Docusate Sodium [Colace -] 100 mg PO HS 04/26/19 RX: Furosemide [Lasix -] 40 mg PO DAILY 04/26/19 RX: Insulin Sliding Scale [Novolog Vial Sliding Scale -] 0 vial SQ ACHS RX: Omeprazole 40 mg PO DAILY 04/26/19 RX: Ramipril 2.5 mg PO DAILY 04/26/19 Umeclidinium Brm/Vilanterol Tr [Anoro Ellipta 62.5-25 Mcg INH] 1 each IH ASDIR 04/26/19 Physical Exam Vital Signs: Vital Signs Temperature 98.8 F 04/27/19 06:00 Pulse Rate 74 04/27/19 06:00 Respiratory Rate 18 04/27/19 06:00 Blood Pressure 125/57 L 04/27/19 06:00 O2 Sat by Pulse Oximetry (%) 94 L 04/27/19 09:20 Labs: CBC, BMP 04/27/19 06:40 04/27/19 06:40
[2019-04-27] MEDS: VANCOMYCIN 1 GRAM (PRE-DOCKED) 1,000 MG/250 ML BAG IVPB SCH (13:12)
[2019-04-27] MEDS: UMECLIDINIUM/VILANTEROL (ANORO) 62.5/25 MCG INHALER IH SCH (13:19)
--- NOTE | 2019-04-27 15:58 | CONSULT ---
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) Endocrine: Yes: Diabetes Mellitus, Hypothyroidism - Alcohol/Substance Use Hx Alcohol Use: No - Smoking History Smoking history: Never smoked Have you smoked in the past 12 months: Yes Aproximately how many cigarettes per day: 0 Home Medications - Allergies Allergies/Adverse Reactions: Allergies Allergy/AdvReac Type Severity Reaction Status Date / Time No Known Drug Allergies Allergy Verified 04/26/19 14:35 - Home Medications Home Medications: Ambulatory Orders Carvedilol [Coreg -] 6.25 mg PO BID 08/20/17 Levothyroxine [Synthroid -] 125 mcg PO DAILY 08/20/17 Ranolazine [Ranexa] 500 mg PO BID 08/20/17 Atorvastatin Ca [Lipitor] 40 mg PO HS #30 tablet 09/21/17 Gabapentin [Neurontin -] 600 mg PO TID 02/25/18 Insulin Detemir [Levemir Flextouch] 35 unit SQ ASDIR 02/25/18 Clopidogrel Bisulfate [Plavix -] 75 mg PO DAILY tablet 08/24/18 Ezetimibe [Zetia -] 10 mg PO DAILY tablet 08/24/18 Acetaminophen 650 mg PO DAILY PRN MDD 1950 09/08/18 Becaplermin [Regranex] 10 gm TP ASDIR 04/26/19 Docusate Sodium [Colace -] 100 mg PO HS 04/26/19 Furosemide [Lasix -] 40 mg PO DAILY 04/26/19 Insulin (Novolog 70/30) [Novolog Mix 70/30 Vial] 0 ml SQ ASDIR 04/26/19 Insulin Sliding Scale [Novolog Vial Sliding Scale -] 0 vial SQ ACHS 04/26/19 Omeprazole 40 mg PO DAILY 04/26/19 Psyllium Husk [Metamucil] 2 cap PO TID 04/26/19 Ramipril 2.5 mg PO DAILY 04/26/19 Umeclidinium Brm/Vilanterol Tr [Anoro Ellipta 62.5-25 Mcg INH] 1 each IH ASDIR 04/26/19 Physical Exam Vital Signs: Vital Signs Temperature 98.1 F 04/27/19 14:00 Pulse Rate 65 04/27/19 14:00 Respiratory Rate 18 04/27/19 10:00 Blood Pressure 129/54 L 04/27/19 14:00 O2 Sat by Pulse Oximetry (%) 94 L 04/27/19 09:20 Wound/Incision: Yes: Other (vsgi, +macerated 4th interspace left foot, - cellulitis, -mal odor, +greatly improved from last admission appearance of foot) Labs: CBC, BMP 04/27/19 06:40 04/27/19 06:40 Assessment/Plan om pvd interdigital maceration 4th interspace left Tinea pedis left betadine dressing affected interspace left. will follow. Rest as per team.
[2019-04-27] MEDS: PSYLLIUM 5.85 GM PACKET PO SCH ×2 (16:53→22:08)
[2019-04-27] MEDS ORDERED: PT OWN MED DRAWER 7, Y5N ONE (18:07)
[2019-04-27] MEDS ORDERED: INSULIN (LEVEMIR) 100 UNITS/ML UNITS SQ SCH (22:00)
[2019-04-27] MEDS ORDERED: ATORVASTATIN CA 40 MG TABLET (FP) PO SCH (22:00)
[2019-04-27] MEDS ORDERED: DOCUSATE SODIUM 100 MG CAPSULE (FP) PO SCH ×2 (22:00)
[2019-04-28] MEDS: GABAPENTIN 300 MG CAPSULE (FP) PO SCH ×2 (06:08→14:07)
[2019-04-28] MEDS: HEPARIN NA (PORCINE) 5,000 UNITS/ML 1ML VIAL SQ SCH ×2 (06:09→14:06)
[2019-04-28] MEDS: INSULIN SLIDING SCALE (NOVOLOG) 1 VIAL SQ SCH ×2 (06:10→12:50)
[2019-04-28 06:58] LABS: BASO % 0.9 % (0-2.0); EOS % 4.7 % (0-4.5); HEMATOCRIT 24.9 % (32.4-45.2); HEMOGLOBIN 8.3 GM/dL (10.7-15.3); LYMPH % 34.6 % (8-40); MCH 30.8 pg (25.7-33.7); MCHC 33.4 g/dl (32.0-36.0); MEAN CELL VOLUME 92.3 fl (80-96); MEAN PLT VOLUME 8.4 fl (7.5-11.1); MONO % 11.4 % (3.8-10.2); NEUT % 48.4 % (42.8-82.8); PLATELET COUNT 246 K/MM3 (134-434); RDW 14.6 % (11.6-15.6); WHITE BLOOD COUNT 6.9 K/mm3 (4.0-10.0)
[2019-04-28 07:18] LABS: ALBUMIN 2.6 g/dl (3.4-5.0); BILIRUBIN,TOTAL 0.6 mg/dL (0.2-1); BLOOD UREA NITROGEN 24.9 mg/dL (7-18); CALCIUM 8.6 mg/dL (8.5-10.1); CREATININE 1.2 mg/dL (0.55-1.3); MAGNESIUM 2.3 mg/dL (1.8-2.4); TOT PROT 6.6 g/dl (6.4-8.2)
[2019-04-28] MEDS: PANTOPRAZOLE 40 MG TABLET (FP) PO SCH (09:53)
[2019-04-28] MEDS: LEVOTHYROXINE NA 125 MCG TABLET (FP) PO SCH (09:53)
[2019-04-28] MEDS: CARVEDILOL 6.25 MG TABLET (FP) PO SCH (09:53)
[2019-04-28] MEDS: RANOLAZINE E.R. 500 MG TABLET (FP) PO SCH (09:53)
[2019-04-28] MEDS: RAMIPRIL 2.5 MG CAPSULE (FP) PO SCH (09:53)
[2019-04-28] MEDS: EZETIMIBE 10 MG TABLET (FP) PO SCH (09:53)
[2019-04-28] MEDS: FUROSEMIDE 40 MG TABLET (FP) PO SCH (09:53)
[2019-04-28] MEDS: CLOPIDOGREL BISULFATE 75 MG TABLET (FP) PO SCH (09:53)
[2019-04-28] MEDS: UMECLIDINIUM/VILANTEROL (ANORO) 62.5/25 MCG INHALER IH SCH (10:01)
[2019-04-28] MEDS: POLYETHYLENE GLYCOL 3350 119 GM BTL PO SCH (10:01)
--- NOTE | 2019-04-28 11:09 | PN ---
Progress Note, Physician History of Present Illness: stable no new issues - Current Medication List Current Medications: Active Medications Acetaminophen (Tylenol -) 650 mg PO DAILY PRN PRN Reason: PAIN LEVEL 1-5 Atorvastatin Calcium (Lipitor -) 40 mg PO HS [facility] Last Admin: 04/27/19 21:56 Dose: 40 mg Carvedilol (Coreg -) 6.25 mg PO BID [facility] Last Admin: 04/28/19 09:53 Dose: 6.25 mg Clopidogrel Bisulfate (Plavix -) 75 mg PO DAILY [facility] Last Admin: 04/28/19 09:53 Dose: 75 mg Docusate Sodium (Colace -) 100 mg PO HS [facility] Last Admin: 04/27/19 21:56 Dose: 100 mg Ezetimibe (Zetia -) 10 mg PO DAILY [facility] Last Admin: 04/28/19 09:53 Dose: 10 mg Furosemide (Lasix -) 40 mg PO DAILY [facility] Last Admin: 04/28/19 09:53 Dose: 40 mg Gabapentin (Neurontin -) 600 mg PO TID [facility] Last Admin: 04/28/19 06:08 Dose: 600 mg Heparin Sodium (Porcine) (Heparin -) 5,000 unit SQ TID [facility] Last Admin: 04/28/19 06:09 Dose: 5,000 unit Vancomycin HCl (Vancomycin (Pre-Docked)) 1,000 mg in 250 mls @ 166.667 mls/hr IVPB Q24H [facility]; Protocol Last Admin: 04/27/19 13:12 Dose: 166.667 mls/hr Insulin Aspart (Novolog Vial Sliding Scale -) 1 vial SQ TIDAC [facility]; Protocol Last Admin: 04/28/19 06:10 Dose: 2 units Insulin Detemir (Levemir Vial) 35 units SQ [facility] Last Admin: 04/27/19 22:02 Dose: 35 units Levothyroxine Sodium (Synthroid -) 125 mcg PO DAILY [facility] Last Admin: 04/28/19 09:53 Dose: 125 mcg Non-Formulary Medication (Becaplermin [Regranex]) 10 gm TP ASDIR [facility] Pantoprazole Sodium (Protonix -) 40 mg PO DAILY [facility] Last Admin: 04/28/19 09:53 Dose: 40 mg Polyethylene Glycol (Miralax (For Daily Use) -) 17 gm PO BID [facility] Last Admin: 04/28/19 10:01 Dose: 17 grams Psyllium Hydrophilic Mucilloid (Metamucil (Sugar-Free) -) 5.85 gm PO BID [facility] Last Admin: 04/27/19 22:08 Dose: 5.85 gm Ramipril (Altace -) 2.5 mg PO DAILY [facility] Last Admin: 04/28/19 09:53 Dose: 2.5 mg Ranolazine (Ranexa -) 500 mg PO BID [facility] Last Admin: 04/28/19 09:53 Dose: 500 mg Umeclidinium/Vilanterol (Anoro Ellipta 62.5-25 Mcg Inh) 1 puff IH DAILY [facility] Last Admin: 04/28/19 10:01 Dose: 1 puff - Objective Vital Signs: Vital Signs Temperature 98.5 F 04/28/19 06:10 Pulse Rate 63 04/28/19 06:10 Respiratory Rate 20 04/28/19 06:10 Blood Pressure 118/5 L 04/28/19 06:10 O2 Sat by Pulse Oximetry (%) 93 L 04/27/19 21:00 Constitutional: Yes: No Distress, Calm Cardiovascular: Yes: S1, S2 Respiratory: Yes: Regular, CTA Bilaterally Gastrointestinal: Yes: Normal Bowel Sounds, Soft Musculoskeletal: Yes: WNL Extremities: Yes: Other Wound/Incision: Yes: Dressing Dry and Intact Neurological: Yes: Alert, Oriented Psychiatric: Yes: Alert, Oriented Labs: CBC, BMP 04/28/19 05:30 04/28/19 05:30 INR, PTT INR 1.13 (0.83-1.09) H 04/26/19 15:30 Assessment/Plan Problem List - Problems (1) Acute metabolic encephalopathy Code(s): G93.41 - METABOLIC ENCEPHALOPATHY (2) Low blood pressure Code(s): I95.9 - HYPOTENSION, UNSPECIFIED (3) Diabetic ulcer of toe associated with diabetes mellitus due to underlying condition Code(s): E08.621 - DIABETES MELLITUS DUE TO UNDERLYING CONDITION W FOOT ULCER; L97.509 - NON-PRESSURE CHRONIC ULCER OTH PRT UNSP FOOT W UNSP SEVERITY Qualifiers: Laterality: left Non-pressure ulcer stage: unspecified non-pressure ulcer stage Qualified Code(s): E08.621 - Diabetes mellitus due to underlying condition with foot ulcer; L97.529 - Non-pressure chronic ulcer of other part of left foot with unspecified severity (4) Prophylactic measure Code(s): Z29.9 - ENCOUNTER FOR PROPHYLACTIC MEASURES, UNSPECIFIED (5) Dementia Code(s): F03.90 - UNSPECIFIED DEMENTIA WITHOUT BEHAVIORAL DISTURBANCE Qualifiers: Dementia type: unspecified type Dementia behavioral disturbance: without behavioral disturbance Qualified Code(s): F03.90 - Unspecified dementia without behavioral disturbance (6) Diabetic neuropathy Code(s): E11.40 - TYPE 2 DIABETES MELLITUS WITH DIABETIC NEUROPATHY, UNSP (7) GERD (gastroesophageal reflux disease) Code(s): K21.9 - GASTRO-ESOPHAGEAL REFLUX DISEASE WITHOUT ESOPHAGITIS (8) Hyperlipidemia Code(s): E78.5 - HYPERLIPIDEMIA, UNSPECIFIED Qualifiers: Hyperlipidemia type: pure hypercholesterolemia Qualified Code(s): E78.00 - Pure hypercholesterolemia, unspecified; E78.0 - Pure hypercholesterolemia (9) Hypertension Code(s): I10 - ESSENTIAL (PRIMARY) HYPERTENSION (10) Hypothyroidism Code(s): E03.9 - HYPOTHYROIDISM, UNSPECIFIED Qualifiers: Hypothyroidism type: unspecified Qualified Code(s): E03.9 - Hypothyroidism , unspecified (11) S/P CABG (coronary artery bypass graft) Code(s): Z95.1 - PRESENCE OF AORTOCORONARY BYPASS GRAFT (12) NSTEMI (non-ST elevated myocardial infarction) Code(s): I21.4 - NON-ST ELEVATION (NSTEMI) MYOCARDIAL INFARCTION (13) Diabetes Code(s): E11.9 - TYPE 2 DIABETES MELLITUS WITHOUT COMPLICATIONS (14) Osteomyelitis Code(s): M86.9 - OSTEOMYELITIS, UNSPECIFIED plan continue current mgmt rest as per the team
--- NOTE | 2019-04-28 12:31 | DS ---
Physical Exam: SUBJECTIVE: Patient seen and examined. in no acute distress. OBJECTIVE: Discharge to rehab to complete Vancomycin 1000mg per Dr. Mahajan. Patient is an 83 year old female with a significant past medical history of hypertension, diabetes 2, hld, CHF, GERD, neuropathy, chronic diffuse pain, hypothyroidism, chronic L great toe osteomyelitis, S/P CABG (coronary artery bypass graft)and NSTEMI. Patient presents from her doctors office on 2018 for left 4th toe redness with left 4th toe ulcer and redness from this toe that extends up to her anterior left foot. She had a hospitalization 1 year ago for prior gangrene/infection to 1st toe on left foot. No recent injury or falls, no trauma of this foot. foot xray is negative for acute fracture. Patient treated initially with zosyn and transitioned to Vancomycin for left foot 4th toe osteomyelitis. She is s/p angiogram and was discharged home on on IV antibiotics x 3 weeks, however, patient was brought in from [facility] after diastolic BP in the 30s. Family states she has been increasingly more lethargic past week with inability to ambulate in home She offered no complaints presently. Vital Signs Period Temp Pulse Resp BP Sys/Ibarra Pulse Ox Last 24 Hr 98.1 F-98.5 F 58-67 20-20 118-134/5-58 93-96 PHYSICAL EXAM GENERAL: Awake, alert with episodes of anxiety. HEAD: Normal with no signs of trauma. EYES: Pupils equal, round and reactive to light, extraocular movements intact, sclera anicteric, conjunctiva clear. No lid lag. EARS, NOSE, THROAT: Ears normal, nares patent, oropharynx clear without exudates. Moist mucous membranes. NECK: Normal range of motion, supple without lymphadenopathy, JVD, or masses. LUNGS: diminished bilaterally HEART: Regular rate and rhythm ABDOMEN: Soft, nontender, obese abdomen MUSCULOSKELETAL: Normal range of motion at all joints. No bony deformities or tenderness. No CVA tenderness. UPPER EXTREMITIES: 2+ pulses, warm, well-perfused. No cyanosis. No clubbing. No peripheral edema. LOWER EXTREMITIES: left foot left foot appears mildly erythematous from 4th toe to the anterior of foot. left great toe with small ulcer. s/p angiogram. 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. LABS Laboratory Results - last 24 hr 04/27/19 04/27/19 04/27/19 12:44 16:34 22:01 WBC RBC Hgb Hct MCV MCH MCHC RDW Plt Count MPV Absolute Neuts (auto) Neutrophils % Lymphocytes % Monocytes % Eosinophils % Basophils % Nucleated RBC % Sodium Potassium Chloride Carbon Dioxide Anion Gap BUN Creatinine Est GFR (CKD-EPI)AfAm Est GFR (CKD-EPI)NonAf POC Glucometer 380 338 262 Random Glucose Calcium Magnesium Total Bilirubin AST ALT Alkaline Phosphatase Total Protein Albumin 04/28/19 04/28/19 04/28/19 05:30 05:30 06:06 WBC 6.9 RBC 2.70 L Hgb 8.3 L Hct 24.9 L MCV 92.3 MCH 30.8 MCHC 33.4 RDW 14.6 Plt Count 246 MPV 8.4 Absolute Neuts (auto) 3.3 Neutrophils % 48.4 D Lymphocytes % 34.6 D Monocytes % 11.4 H Eosinophils % 4.7 H D Basophils % 0.9 Nucleated RBC % 0 Sodium 133 L Potassium 5.0 Chloride 98 Carbon Dioxide 29 Anion Gap 6 L BUN 24.9 H Creatinine 1.2 Est GFR (CKD-EPI)AfAm 48.06 Est GFR (CKD-EPI)NonAf 41.47 POC Glucometer 215 Random Glucose 221 H Calcium 8.6 Magnesium 2.3 Total Bilirubin 0.6 AST 32 ALT 31 Alkaline Phosphatase 104 Total Protein 6.6 Albumin 2.6 L HOSPITAL COURSE: Date of Admission:04/26/19 Date of Discharge: 04/28/19 bp stable, in no acute distress. brain mri negative for d/c to rehab to complete vanco for osteomyelitis Minutes to complete discharge: 45 Discharge Summary Problems reviewed: Yes Reason For Visit: RULED OUT MYOCARDIAL INFARCTION,SYNCOPE Current Active Problems Acute metabolic encephalopathy (Acute) Diabetes (Acute) Low blood pressure (Acute) Ruled out for myocardial infarction (Acute) Syncope (Acute) Condition: Stable - Instructions Diet, Activity, Other Instructions: Continue Vancomycin 1000mg once per day per Dr. Mahajan (for osteomylitis) OF 04/18/2019, PATIENT TO COMPLETE THREE WEEKS TOTAL OF VANCOMYCIN 1000MG VIA PICC LINE. Referrals: Luz Kaur MD [Primary Care Provider] - Disposition: [facility] - Home Medications Comprehensive Discharge Medication List: Ambulatory Orders Carvedilol [Coreg -] 6.25 mg PO BID 08/20/17 Levothyroxine [Synthroid -] 125 mcg PO DAILY 08/20/17 Ranolazine [Ranexa] 500 mg PO BID 08/20/17 Atorvastatin Ca [Lipitor] 40 mg PO HS #30 tablet 09/21/17 Gabapentin [Neurontin -] 600 mg PO TID 02/25/18 Insulin Detemir [Levemir Flextouch] 35 unit SQ ASDIR 02/25/18 Clopidogrel Bisulfate [Plavix -] 75 mg PO DAILY tablet 08/24/18 Ezetimibe [Zetia -] 10 mg PO DAILY tablet 08/24/18 Acetaminophen 650 mg PO DAILY PRN MDD 1950 09/08/18 Becaplermin [Regranex] 10 gm TP ASDIR 04/26/19 Docusate Sodium [Colace -] 100 mg PO HS 04/26/19 Furosemide [Lasix -] 40 mg PO DAILY 04/26/19 Insulin (Novolog 70/30) [Novolog Mix 70/30 Vial -] 0 ml SQ ASDIR 04/26/19 Insulin Sliding Scale [Novolog Vial Sliding Scale -] 0 vial SQ ACHS 04/26/19 Omeprazole 40 mg PO DAILY 04/26/19 Psyllium Husk [Metamucil] 2 cap PO TID 04/26/19 Ramipril 2.5 mg PO DAILY 04/26/19 Umeclidinium Brm/Vilanterol Tr [Anoro Ellipta 62.5-25 Mcg INH] 1 each IH ASDIR 04/26/19 Insulin (Levemir) [Levemir Vial] 35 units SQ HS units 04/28/19 Insulin Sliding Scale [Novolog Vial Sliding Scale -] 1 vial SQ TIDAC units 11/09 Pantoprazole Sodium [Protonix -] 40 mg PO DAILY tablet.ec 04/28/19 Polyethylene Glycol 3350 [Miralax 119 gm Btl -] 17 gm PO BID bottle 04/28/19 Psyllium [Metamucil (Sugar-Free) -] 5.85 gm PO BID packet 04/28/19 Problem List - Problems (1) HAROLDO (acute kidney injury) Code(s): N17.9 - ACUTE KIDNEY FAILURE, UNSPECIFIED (2) Acute metabolic encephalopathy Code(s): G93.41 - METABOLIC ENCEPHALOPATHY (3) Acute on chronic systolic (congestive) heart failure Code(s): I50.23 - ACUTE ON CHRONIC SYSTOLIC (CONGESTIVE) HEART FAILURE (4) Anemia Code(s): D64.9 - ANEMIA, UNSPECIFIED (5) COPD (chronic obstructive pulmonary disease) Code(s): J44.9 - CHRONIC OBSTRUCTIVE PULMONARY DISEASE, UNSPECIFIED (6) Cellulitis Code(s): L03.90 - CELLULITIS, UNSPECIFIED (7) Diabetes Code(s): E11.9 - TYPE 2 DIABETES MELLITUS WITHOUT COMPLICATIONS (8) Diabetic ulcer of toe associated with diabetes mellitus due to underlying condition Code(s): E08.621 - DIABETES MELLITUS DUE TO UNDERLYING CONDITION W FOOT ULCER; L97.509 - NON-PRESSURE CHRONIC ULCER OTH PRT UNSP FOOT W UNSP SEVERITY Qualifiers: Laterality: left Non-pressure ulcer stage: unspecified non-pressure ulcer stage Qualified Code(s): E08.621 - Diabetes mellitus due to underlying condition with foot ulcer; L97.529 - Non-pressure chronic ulcer of other part of left foot with unspecified severity (9) Low blood pressure Code(s): I95.9 - HYPOTENSION, UNSPECIFIED (10) Osteomyelitis Code(s): M86.9 - OSTEOMYELITIS, UNSPECIFIED (11) PAD (peripheral artery disease) Code(s): I73.9 - PERIPHERAL VASCULAR DISEASE, UNSPECIFIED (12) Prophylactic measure Code(s): Z29.9 - ENCOUNTER FOR PROPHYLACTIC MEASURES, UNSPECIFIED This patient is new to me today: Yes Date on this admission: 04/28/19 Emergency Visit: Yes ED Registration Date: 04/26/19 Care time: The patient presented to the Emergency Department on the above date and was hospitalized for further evaluation of their emergent condition. Critical Care patient: No - Discharge Referral Referred to [facility] Med P.C.: No
[2019-04-28] MEDS: VANCOMYCIN 1 GRAM (PRE-DOCKED) 1,000 MG/250 ML BAG IVPB SCH (12:37)
--- NOTE | 2019-04-28 13:52 | PN ---
Progress Note (short form) - Note Progress Note: FUV left foot +macerated 4th interspace left, -drainage, +granulation tissue Tinea pedis/macerated left 4th interspace Betadine dressing daily. Will follow till dc. Can follow up in my office upon dc.
[2019-04-28] MEDS ORDERED: PT OWN MED DRAWER 7, Y5N ONE (14:05)
[2019-04-28] MEDS: PSYLLIUM 5.85 GM PACKET PO SCH (14:07)
[2019-04-28 16:04] VITALS: BP 135/58; PULSE 63; TEMP 97.9
== END 2019-04-28 16:44 | DRG 314 ==
LOC: JER 14:25 → JERBED 15:48 → J4W 21:54 → OBSVTOIN 23:40
PROVIDERS: ADMIT Internal Medicine; ATTEND Nurse Practitioner Family
DX: I95.9 Hypotension, unspecified (principal); G93.41 Metabolic encephalopathy; M86.9 Osteomyelitis, unspecified; I13.0 Hypertensive heart and chronic kidney disease with heart failure and stage 1 through stage 4 chronic kidney disease, or unspecified chronic kidney disease; R55 Syncope and collapse; E11.69 Type 2 diabetes mellitus with other specified complication; I50.9 Heart failure, unspecified; E86.0 Dehydration; D72.829 Elevated white blood cell count, unspecified; E78.5 Hyperlipidemia, unspecified; E11.40 Type 2 diabetes mellitus with diabetic neuropathy, unspecified; E11.65 Type 2 diabetes mellitus with hyperglycemia; K21.9 Gastro-esophageal reflux disease without esophagitis; E03.9 Hypothyroidism, unspecified; Z95.1 Presence of aortocoronary bypass graft; E66.9 Obesity, unspecified; Z68.29 Body mass index [BMI] 29.0-29.9, adult; B35.3 Tinea pedis; D64.9 Anemia, unspecified; N18.3 Chronic kidney disease, stage 3 (moderate)
CPT/HCPCS: 36415; 70450-TC; 70551-TC; 71045-TC-FY; 71275-TC; 80053; 81003; 82550; 82962; 83540; 83550; 83735; 84100; 84484; 85025; 85027; 85044; 85379; 85610; 85730; 87040; 87086; 93005; 93010; 97116-GP; 99284-25; G0277; G0378; J1644; J7030; Q9967

== ENCOUNTER 2019-05-08 11:16 | Inpatient (IN) | payer MEDICARE, OTHER ==
--- NOTE | 2019-05-08 11:57 | PDOC ---
History of Present Illness - General Chief Complaint: Altered Mental Status Stated Complaint: AMS Time Seen by Provider: 05/08/19 11:50 History Source: Patient Exam Limitations: No Limitations - History of Present Illness Initial Comments: 05/08/19 13:05 Ms. Antonio Villalobos is an 84 y/o Yoruba speaking woman with hx ESBL+ UTI, HTN, HLD, CHF, neuropathy, recent hospitalization for L toe osteomyelitis (discharge on ) p/w one week of dysuria and intermittent confusion. She is accompanied by her daughter. She reports that for the last week she has had intense pain with urination. She describes the pain as burning, localized to her lower abdomen. She denies any pain at rest. She denies any fevers, chills, fatigue, weakness. Her daughter reports that Ms. Alvarez has been intermittently confused, having episodes where she did not remember a fall that occurred two days ago. She reports that her mother attempted to get out of bed to use the restroom, and fell onto the floor. She denies any head injury or LOC at that time. Her daughter reports that Ms. Alvarez usually lives at home, but has been staying at [facility] since discharge from her recent hospitalization. She reports that she has continued to take her prescription vancomycin as directed, and that her course is scheduled until 05/10/2019. Past History - Past Medical History Allergies/Adverse Reactions: Allergies Allergy/AdvReac Type Severity Reaction Status Date / Time No Known Drug Allergies Allergy Verified 05/08/19 11:45 Home Medications: Ambulatory Orders Carvedilol [Coreg -] 6.25 mg PO BID 08/20/17 Levothyroxine [Synthroid -] 125 mcg PO DAILY 08/20/17 Ranolazine [Ranexa] 500 mg PO BID 08/20/17 Atorvastatin Ca [Lipitor] 40 mg PO HS #30 tablet 09/21/17 Gabapentin [Neurontin -] 600 mg PO TID 02/25/18 Clopidogrel Bisulfate [Plavix -] 75 mg PO DAILY tablet 08/24/18 Ezetimibe [Zetia -] 10 mg PO DAILY tablet 08/24/18 Acetaminophen 650 mg PO DAILY PRN MDD 1950 09/08/18 Furosemide [Lasix -] 40 mg PO DAILY 04/26/19 Ramipril 2.5 mg PO DAILY 04/26/19 Insulin (Levemir) [Levemir Vial] 35 units SQ HS units 04/28/19 Insulin Sliding Scale [Novolog Vial Sliding Scale -] 1 vial SQ TIDAC units 11/09 Pantoprazole Sodium [Protonix -] 40 mg PO DAILY tablet.ec 04/28/19 Polyethylene Glycol 3350 [Miralax 119 gm Btl -] 17 gm PO BID bottle 04/28/19 Psyllium [Metamucil (Sugar-Free) -] 5.85 gm PO BID packet 04/28/19 Lactobacillus Acidophilus [Bacid -] 1 each PO BID 05/08/19 Oseltamivir Phosphate [Tamiflu] 75 mg PO DAILY 05/08/19 Pantoprazole Sodium [Protonix] 40 mg PO DAILY 05/08/19 Sennosides [Senna] 2 tab PO HS 05/08/19 Sertraline HCl [Zoloft] 25 mg PO DAILY 05/08/19 Vancomycin HCl 1 gm IV DAILY 05/08/19 Anemia: No Asthma: No Cancer: No Cardiac Disorders: Yes (NSTEMI, CAD, Stents, CABG, Angina, D-CHF) CVA: Yes COPD: No CHF: Yes DVT: No Dementia: No Diabetes: Yes GI Disorders: Yes (Duodenal and gastric Ulcers, GERD) Disorders: Yes (Urosepsis - Ecoli ESBL in urine 01/2018) HTN: Yes Hypercholesterolemia: Yes Kidney Stones: (KIDNEY DIS) Liver Disease: No Seizures: No Thyroid Disease: No - Surgical History Abdominal Surgery: No Appendectomy: No Cardiac Surgery: Yes (CABG) Cholecystectomy: No Lung Surgery: No Neurologic Surgery: No Orthopedic Surgery: Yes (Rt elbow Sx) - Immunization History Td Vaccination: Yes TDAP Vaccination: Yes Immunization Up to Date: No - Psycho Social/Smoking Cessation Hx Smoking Status: No Smoking History: Never smoked Have you smoked in the past 12 months: No Number of Cigarettes Smoked Daily: 0 Hx Alcohol Use: No Drug/Substance Use Hx: No Substance Use Type: None Hx Substance Use Treatment: No Review of Systems - Review of Systems Able to Perform ROS?: Yes Comments:: 05/08/19 14:54 ROS: GENERAL/CONSTITUTIONAL: No fever or chills. No weakness. HEAD, EYES, EARS, NOSE AND THROAT: No change in vision. No ear pain or discharge. No sore throat. CARDIOVASCULAR: No chest pain or shortness of breath RESPIRATORY: No cough, wheezing, or hemoptysis. GASTROINTESTINAL: Abdominal pain. No nausea, vomiting, diarrhea or constipation. GENITOURINARY: Dysuria. No frequency, or change in urination. MUSCULOSKELETAL: No joint or muscle swelling or pain. No neck or back pain. SKIN: No rash NEUROLOGIC: No headache, vertigo, loss of consciousness, or change in strength/ sensation. ENDOCRINE: No increased thirst. No abnormal weight change HEMATOLOGIC/LYMPHATIC: No anemia, easy bleeding, or history of blood clots. ALLERGIC/IMMUNOLOGIC: No hives or skin allergy. *Physical Exam - Vital Signs Last Vital Signs Temp Pulse Resp BP Pulse Ox 98.2 F 60 16 159/76 100 05/08/19 11:20 05/08/19 11:20 05/08/19 11:20 05/08/19 11:20 05/08/19 11:20 - Physical Exam 05/08/19 14:54 PE: GENERAL: Awake, alert, and fully oriented, in no acute distress HEAD: No signs of trauma, normocephalic, atraumatic EYES: PERRLA, EOMI, sclera anicteric, conjunctiva clear ENT: Auricles normal inspection, hearing grossly normal, nares patent, oropharynx clear without exudates. Moist mucosa NECK: Normal ROM, supple, no lymphadenopathy, JVD, or masses LUNGS: No distress, speaks full sentences, clear to auscultation bilaterally HEART: Regular rate and rhythm, normal S1 and S2, no murmurs, rubs or gallops, peripheral pulses normal and equal bilaterally. ABDOMEN: Mild tenderness to deep palpation in LLQ, RUQ. Otherwise: Soft, nontender, normoactive bowel sounds. No guarding, no rebound. No masses EXTREMITIES : Normal inspection, Normal range of motion, no edema. No clubbing or cyanosis NEUROLOGICAL: Cranial nerves II through XII grossly intact. Normal speech, normal gait, no focal sensorimotor deficits SKIN: Warm, Dry, normal turgor, no rashes or lesions noted Heart Score/ECG Review - History History: Slightly suspicious - Electrocardiogram EKG: Non specific repolarization disturbance - Age Age: >/= 65 - Risk Factors Risk Factors Heart Score: Yes Hx Hypercholesterolemia, Yes Hx Hypertension Based on the list above the patient has:: 1-2 risk factors - Troponin Troponin: 1-3x normal limit - Score Heart Score - Total: 5 - ECG Intrepretation Rhythm: Regular Rhythm - [place] Oakdale: Normal ED Treatment Course - LABORATORY CBC & Chemistry Diagram: 05/08/19 12:39 05/08/19 12:39 Medical Decision Making - Medical Decision Making 05/08/19 14:56 84F with hx ESBL+ UTIs, HTN, HLD, DM, CHF, recent admission for L toe osteo, CABG, p/w one week of dysuria, most concerning for UTI. ACS also possible given significant cardiac history. Plan: CBC CMP EKG CXR Troponin I x2 UA Urine culture CT head, CT c-spine given recent falls Dispo: Likely admit --- Troponin - 0.27 --- UA - negative Given unclear source of abdominal pain alongside troponinemia, plan for CT abdomen/pelvis to evaluate for signs of ischemia. 05/08/19 17:54 on bedside bladder US - volume of approx 300cc urine 05/08/19 18:03 CT abdomen pelvis notable for bladder volume approx 700cc Plan for pelayo for urinary retention Discharge - Discharge Information Problems reviewed: Yes Clinical Impression/Diagnosis: Elevated troponin Condition: Stable - Admission Yes - Follow up/Referral Referrals: Raina Hardy MD [Primary Care Provider] - - Patient Discharge Instructions - Post Discharge Activity
[2019-05-08 13:05] LABS: BASO % 0.9 % (0-2.0); EOS % 1.6 % (0-4.5); HEMATOCRIT 27.6 % (32.4-45.2); HEMOGLOBIN 9.1 GM/dL (10.7-15.3); LYMPH % 18.3 % (8-40); MCH 30.3 pg (25.7-33.7); MEAN CELL VOLUME 91.9 fl (80-96); MEAN PLT VOLUME 7.8 fl (7.5-11.1); MONO % 9.1 % (3.8-10.2); NEUT % 70.1 % (42.8-82.8); PLATELET COUNT 349 K/MM3 (134-434); RBC 3.01 M/mm3 (3.60-5.2); RDW 14.6 % (11.6-15.6); WHITE BLOOD COUNT 10.8 K/mm3 (4.0-10.0)
[2019-05-08 13:20] LABS: EPI CELLS 2.3 /HPF (0-5/HPF); HYALINE CASTS 3 /lpf (0-8); URINE APPEARANCE CLEAR; URINE BACTERIA 10.3 /hpf (NEGATIVE); URINE BILIRUBIN NEGATIVE (NEGATIVE); URINE COLOR YELLOW; URINE GLUCOSE (UA) NEGATIVE (NEGATIVE); URINE KETONE NEGATIVE (NEGATIVE); URINE LEUK ESTERASE TRACE (NEGATIVE); URINE NITRITE NEGATIVE (NEGATIVE); URINE PROTEIN TRACE (NEGATIVE); URINE WBC 6 /hpf (0-5)
[2019-05-08 13:30] LABS: ALBUMIN 3.2 g/dl (3.4-5.0); BILIRUBIN,TOTAL 0.8 mg/dL (0.2-1); BLOOD UREA NITROGEN 28.8 mg/dL (7-18); CREATININE 1.3 mg/dL (0.55-1.3); POTASSIUM 4.3 mmol/L (3.5-5.1); TOT PROT 7.2 g/dl (6.4-8.2)
[2019-05-08] MEDS ORDERED: LACTATED RINGERS SOLUTION 1000 ML INFUS.BAG IV ONE (13:38)
--- NOTE | 2019-05-08 14:05 | PDOC ---
Attending Attestation - Resident Resident Name: Kishan Dickens - ED Attending Attestation I have performed the following: I have examined & evaluated the patient, The case was reviewed & discussed with the resident, I agree w/resident's findings & plan - HPI HPI: 05/08/19 14:02 84-year-old female with multiple medical problems and recent hospitalizations for UTI and osteomyelitis currently being treated with IV vancomycin via PICC line presents from retirement with episode of altered mental status/ unresponsiveness this morning, resolved in route. Patient alert here, only complaining of lower abdominal discomfort and dysuria, no fevers or chills or vomiting, no chest pain or difficulty breathing. - Physicial Exam PE: 05/08/19 14:02 Vital signs stable Well-appearing and alert speaking full sentences, no respiratory distress Heart is regular, lungs are clear Abdomen is soft/nondistended, suprapubic and left lower/mid quadrant discomfort to palpation with some guarding, no rebound. No CVA tenderness. No edema. Neurologically nonfocal - Medical Decision Making 05/08/19 14:03 84-year-old female with multiple medical problems presents from retirement with episode of decreased responsiveness, now resolved without intervention with normal vital signs and abdominal exam localizing to the left lower quadrant. Question UTI given history, GI etiology such as diverticulitis or colitis is also on the differential, particularly in light of recent antibiotics. No cardiopulmonary complaints, hemodynamically stable. Labs notable for borderline white blood cells, baseline hemoglobin, mild dehydration, and elevated troponin. EKG shows sinus rhythm with unchanged lateral T wave inversions. Urinalysis is clear, proceed with CT of the abdomen and pelvis to rule out colitis/diverticulitis IV fluids Will need admission Heart Score/ECG Review #1 ECG reviewed & interpreted by me at: 13:24 General ECG Interpretation: Sinus Rhythm, Normal Rate (65), Normal Intervals ( qtc 432), No acute ischemic changes Compared to previous ECG there are: No significant change (04/26/19)
[2019-05-08 16:38] LABS: URINE RBC 20.1 /hpf (0-4)
--- NOTE | 2019-05-08 19:24 | PDOC ---
*Physical Exam - Vital Signs Last Vital Signs Temp Pulse Resp BP Pulse Ox 98.2 F 60 16 159/76 100 05/08/19 11:20 05/08/19 11:20 05/08/19 11:20 05/08/19 11:20 05/08/19 11:20 ED Treatment Course - LABORATORY CBC & Chemistry Diagram: 05/08/19 12:39 05/08/19 12:39 - ADDITIONAL ORDERS Additional order review: Laboratory Results 05/08/19 05/08/19 05/08/19 18:21 13:06 12:39 Sodium 132 L Potassium 4.3 Chloride 96 L Carbon Dioxide 29 Anion Gap 7 L BUN 28.8 H Creatinine 1.3 Est GFR (CKD-EPI)AfAm 43.63 Est GFR (CKD-EPI)NonAf 37.64 POC Glucometer Random Glucose 130 H Calcium 9.0 Total Bilirubin 0.8 AST 66 H ALT 80 H Alkaline Phosphatase 112 Creatine Kinase 207 H Creatine Kinase Index 0.9 CK-MB (CK-2) 1.9 Troponin I 0.23 H 0.27 H Total Protein 7.2 Albumin 3.2 L Urine Color Yellow Urine Appearance Clear Urine pH 6.0 Ur Specific [place] 1.016 Urine Protein Trace Urine Glucose (UA) Negative Urine Ketones Negative Urine Blood Negative Urine Nitrite Negative Urine Bilirubin Negative Urine Urobilinogen 1.0 Ur Leukocyte Esterase Trace Urine WBC (Auto) 6 Urine RBC (Auto) 20.1 Urine Casts (Auto) 3 U Epithel Cells (Auto) 2.3 Urine Bacteria (Auto) 10.3 05/08/19 11:53 Sodium Potassium Chloride Carbon Dioxide Anion Gap BUN Creatinine Est GFR (CKD-EPI)AfAm Est GFR (CKD-EPI)NonAf POC Glucometer 125 Random Glucose Calcium Total Bilirubin AST ALT Alkaline Phosphatase Creatine Kinase Creatine Kinase Index CK-MB (CK-2) Troponin I Total Protein Albumin Urine Color Urine Appearance Urine pH Ur Specific [place] Urine Protein Urine Glucose (UA) Urine Ketones Urine Blood Urine Nitrite Urine Bilirubin Urine Urobilinogen Ur Leukocyte Esterase Urine WBC (Auto) Urine RBC (Auto) Urine Casts (Auto) U Epithel Cells (Auto) Urine Bacteria (Auto) 05/08/19 05/08/19 12:39 11:53 RBC 3.01 L MCV 91.9 MCHC 33.0 RDW 14.6 MPV 7.8 Neutrophils % 70.1 D Lymphocytes % 18.3 D Monocytes % 9.1 Eosinophils % 1.6 Basophils % 0.9 POC Glucometer 125 - Medications Given in the ED: ED Medications Discontinued Medications Generic Name Dose Route Start Last Admin Trade Name Charleen PRN Reason Stop Dose Admin Lactated Ringer's 500 ml 05/08/19 13:38 05/08/19 14:00 Lactated Ringers Solution IV 05/08/19 13:39 500 ml ONCE ONE Administration Medical Decision Making - Medical Decision Making 05/08/19 19:23 Signed out from day team EKG shows NSR HR 65, QTc 432, no ST changes Ms. Antonio Villalobos is an 84 y/o Ukrainian speaking woman with hx ESBL+ UTI, HTN, HLD, CHF, neuropathy, recent hospitalization for L toe osteomyelitis (discharge on ) p/w one week of dysuria and intermittent confusion. Elevated trop 0.27 , repeat 0.23. Denies chest pain/SOB. No ST changes on EKG Admitted to Dr Conley tele/obvs for elevated trop in setting of 5 HEART score, urinary retention Discharge - Discharge Information Problems reviewed: Yes Clinical Impression/Diagnosis: Elevated troponin, Urinary retention Condition: Stable - Follow up/Referral Referrals: Raina Hardy MD [Primary Care Provider] - - Patient Discharge Instructions - Post Discharge Activity
--- NOTE | 2019-05-08 21:38 | HP ---
Admitting History and Physical - Primary Care Physician PCP: Dr. Hardy - Admission Chief Complaint: AMS History of Present Illness: 84 y/o Armenian speaking woman with hx ESBL+ UTI, HTN, HLD, CHF, neuropathy, recent hospitalization for L toe osteomyelitis (discharge on 04/28/2019) arrived to ER with one week of dysuria and intermittent confusion, and gait disturbance. Patient accompained by her daughterr who reports since last week patient had intense pain with urination. She describes the pain as burning, localized to her lower abdomen. She denies any fevers, chills, fatigue. Daughter also reports that Ms. Alvarez has been intermittently confused, having episodes where she did not remember a fall that occurred two days ago. She reports that her mother attempted to get out of bed to use the restroom, and fell onto the floor. She denies any head injury or LOC at that time. Her daughter reports that Ms. Alvarez usually lives at home, but has been staying at [facility] since discharge from her recent hospitalization. She reports that she has continued to take her prescription vancomycin as directed, and that her course is scheduled until 05/10/2019. 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) Endocrine: Yes: Diabetes Mellitus, Hypothyroidism - Past Surgical History Past Surgical History: Yes: CABG, Joint Replacement (right elbow sx), Stent - Smoking History Smoking history: Never smoked Have you smoked in the past 12 months: No Aproximately how many cigarettes per day: 0 - Alcohol/Substance Use Hx Alcohol Use: No History of Substance Use: reports: None - Social History Usual Living Arrangement: Yes: Residential ADL: Support Services History of Recent Travel: No Home Medications - Allergies Allergies/Adverse Reactions: Allergies Allergy/AdvReac Type Severity Reaction Status Date / Time No Known Drug Allergies Allergy Verified 05/08/19 11:45 - Home Medications Home Medications: Ambulatory Orders Carvedilol [Coreg -] 6.25 mg PO BID 08/20/17 Levothyroxine [Synthroid -] 125 mcg PO DAILY 08/20/17 Ranolazine [Ranexa] 500 mg PO BID 08/20/17 Atorvastatin Ca [Lipitor] 40 mg PO HS #30 tablet 09/21/17 Gabapentin [Neurontin -] 600 mg PO TID 02/25/18 Clopidogrel Bisulfate [Plavix -] 75 mg PO DAILY tablet 08/24/18 Ezetimibe [Zetia -] 10 mg PO DAILY tablet 08/24/18 Acetaminophen 650 mg PO DAILY PRN MDD 1950 09/08/18 Furosemide [Lasix -] 40 mg PO DAILY 04/26/19 Ramipril 2.5 mg PO DAILY 04/26/19 Insulin (Levemir) [Levemir Vial] 35 units SQ HS units 04/28/19 Insulin Sliding Scale [Novolog Vial Sliding Scale -] 1 vial SQ TIDAC units 11/09 Pantoprazole Sodium [Protonix -] 40 mg PO DAILY tablet.ec 04/28/19 Polyethylene Glycol 3350 [Miralax 119 gm Btl -] 17 gm PO BID bottle 04/28/19 Psyllium [Metamucil (Sugar-Free) -] 5.85 gm PO BID packet 04/28/19 Lactobacillus Acidophilus [Bacid -] 1 each PO BID 05/08/19 Oseltamivir Phosphate [Tamiflu] 75 mg PO DAILY 05/08/19 Pantoprazole Sodium [Protonix] 40 mg PO DAILY 05/08/19 Sennosides [Senna] 2 tab PO HS 05/08/19 Sertraline HCl [Zoloft] 25 mg PO DAILY 05/08/19 Vancomycin HCl 1 gm IV DAILY 05/08/19 Family Medical History Family Hx Diabetes: Sister Review of Systems - Review of Systems Constitutional: reports: No Symptoms Eyes: reports: No Symptoms HENT: reports: No Symptoms Neck: reports: No Symptoms Cardiovascular: reports: No Symptoms Respiratory: reports: No Symptoms Gastrointestinal: reports: No Symptoms Genitourinary: reports: Dysuria Breasts: reports: No Symptoms Reported Musculoskeletal: reports: No Symptoms Integumentary: reports: No Symptoms Neurological: reports: Confusion, Unsteady Gait Endocrine: reports: No Symptoms Hematology/Lymphatic: reports: No Symptoms Psychiatric: reports: No Symptoms Physical Examination Vital Signs: Vital Signs Temperature 98.2 F 05/08/19 11:20 Pulse Rate 60 05/08/19 11:20 Respiratory Rate 16 05/08/19 11:20 Blood Pressure 159/76 05/08/19 11:20 O2 Sat by Pulse Oximetry (%) 100 05/08/19 11:20 Constitutional: Yes: No Distress, Calm Eyes: Yes: Conjunctiva Clear, EOM Intact HENT: Yes: Atraumatic, Normocephalic Neck: Yes: Supple, Trachea Midline Cardiovascular: Yes: Regular Rate and Rhythm Respiratory: Yes: Regular, CTA Bilaterally Gastrointestinal: Yes: Normal Bowel Sounds, Soft, Tenderness (Mild tenderness to deep palpation in LLQ, RUQ.) Musculoskeletal: Yes: WNL Extremities: Yes: WNL Edema: No Peripheral Pulses WNL: Yes Neurological: Yes: Alert, Confusion Labs: CBC, BMP 05/08/19 12:39 05/08/19 12:39 Imaging - Results Chest X-ray: Report Reviewed (CXR: increase vascular congestion) Cat Scan: Report Reviewed (Head CT: no acute evidence of intracranial pathology Cervical CT: no fx ABD CT: small b/l pleural effusion, cholelithiasis, mild nonspecific common bile duct dilation 0.8 cm Urinary bladder overdistended :700ml) EKG: Report Reviewed (Trop: 0.27 --> 0.23 EKG: Sinus Rhythm, Normal Rate (65 ), Normal Intervals, No acute ischemic changes) Problem List - Problems (1) Elevated troponin Code(s): R79.89 - OTHER SPECIFIED ABNORMAL FINDINGS OF BLOOD CHEMISTRY (2) Urinary retention Code(s): R33.9 - RETENTION OF URINE, UNSPECIFIED (3) [id number] kidney injury Code(s): N17.9 - ACUTE KIDNEY FAILURE, UNSPECIFIED; N18.9 - CHRONIC KIDNEY DISEASE, UNSPECIFIED Qualifiers: Chronic kidney disease stage: stage 3 (moderate) (4) Type 2 diabetes mellitus Code(s): E11.9 - TYPE 2 DIABETES MELLITUS WITHOUT COMPLICATIONS Qualifiers: Diabetes mellitus watermelon inspector insulin use: unspecified watermelon inspector insulin use status Diabetes mellitus complication status: with neurologic complications Diabetes mellitus complication detail: with polyneuropathy Qualified Code(s): E11.42 - Type 2 diabetes mellitus with diabetic polyneuropathy (5) Depression Code(s): F32.9 - MAJOR DEPRESSIVE DISORDER, SINGLE EPISODE, UNSPECIFIED (6) Osteomyelitis Code(s): M86.9 - OSTEOMYELITIS, UNSPECIFIED (7) CAD (coronary artery disease) Code(s): I25.10 - ATHSCL HEART DISEASE OF [place] CORONARY ARTERY W/O ANG PCTRS Qualifiers: Coronary Disease-Associated Artery/Lesion type: [place] artery [place] vs. transplanted heart: [place] heart Associated angina: with unstable angina Qualified Code(s): I25.110 - Atherosclerotic heart disease of [place] coronary artery with unstable angina pectoris (8) CHF (congestive heart failure) Code(s): I50.9 - HEART FAILURE, UNSPECIFIED Qualifiers: Heart failure type: unspecified Heart failure chronicity: acute on chronic Qualified Code(s): I50.9 - Heart failure, unspecified (9) Constipation Code(s): K59.00 - CONSTIPATION, UNSPECIFIED Qualifiers: Constipation type: unspecified constipation type Qualified Code(s): K59.00 - Constipation, unspecified (10) Dementia Code(s): F03.90 - UNSPECIFIED DEMENTIA WITHOUT BEHAVIORAL DISTURBANCE Qualifiers: Dementia type: unspecified type Dementia behavioral disturbance: without behavioral disturbance Qualified Code(s): F03.90 - Unspecified dementia without behavioral disturbance (11) Generalized pain Code(s): R52 - PAIN, UNSPECIFIED (12) Hyperlipidemia Code(s): E78.5 - HYPERLIPIDEMIA, UNSPECIFIED Qualifiers: Hyperlipidemia type: pure hypercholesterolemia Qualified Code(s): E78.00 - Pure hypercholesterolemia, unspecified; E78.0 - Pure hypercholesterolemia (13) Hypertension Code(s): I10 - ESSENTIAL (PRIMARY) HYPERTENSION (14) GERD (gastroesophageal reflux disease) Code(s): K21.9 - GASTRO-ESOPHAGEAL REFLUX DISEASE WITHOUT ESOPHAGITIS (15) Hypothyroidism Code(s): E03.9 - HYPOTHYROIDISM, UNSPECIFIED Qualifiers: Hypothyroidism type: unspecified Qualified Code(s): E03.9 - Hypothyroidism , unspecified Assessment/Plan 84 y/o Armenian speaking woman with hx ESBL+ UTI, HTN, HLD, CHF, neuropathy, recent hospitalization for L toe osteomyelitis (discharge on 04/28/2019) arrived to ER with one week of dysuria and intermittent confusion, and gait disturbance. #Elevated troponin tele obs, continuous cardiac monitoring Trop: 0.27 --> 0.23 , trop trend EKG: Sinus Rhythm, Normal Rate (65), Normal Intervals, No acute ischemic changes CXR: increase vascular congestion - follow up cardiology H/o of fall Cervical CT: no fx Head CT: no acute evidence of intracranial pathology safety/fall precaution #Elevated LFTs # RUQ/ RLQ Abdominal Pain AST: 66; ALT: [address]: small b/l pleural effusion, cholelithiasis, mild nonspecific common bile duct dilation 0.8 cm Urinary bladder overdistended:700ml UA: Negative follow up UCX pelayo catheter in place monitor I &O - trend LFTs - consider GI follow up if LFTs trending #Acute on Chronic CKD Bun/Cr: 28.8/1.3 given 500ml LR x1 - avoid nephro toxins - monitor renal function #L toe osteomyelitis -Vancomycin HCl 1 gm IV DAILY ( last day 05/10) -pain management # HTN/HLD/CAD # CHF -Carvedilol 6.25 mg PO BID -Ramipril 2.5 mg PO DAILY -Ranolazine 500 mg PO BID -Atorvastatin Ca 40 mg PO HS -Clopidogrel Bisulfate 75 mg PO DAILY -Furosemide 40 mg PO DAILY -Ezetimibe 10 mg PO DAILY - monitor I&O - daily weight - fluid restriction # DM Insulin Levemir 35 units SQ HS Insulin Sliding Scale SQ TIDAC Gabapentin 600 mg PO TID Diabetic diet follow up HgA1c # GERD # Constipation Pantoprazole Sodium 40 mg PO DAILY Sennosides 2 tab PO HS Polyethylene Glycol 3350 17 gm PO BID # Hypothyrodism Levothyroxine 125 mcg PO DAILY - follow up TSH #depression -Sertraline HCl 25 mg PO DAILY FEN: RANDAL/NCS, Low fat diet, monitor lytes VTE: SCDs Dispo: tele obs Visit type - Emergency Visit Emergency Visit: Yes ED Registration Date: 05/08/19 Care time: The patient presented to the Emergency Department on the above date and was hospitalized for further evaluation of their emergent condition. - New Patient This patient is new to me today: Yes Date on this admission: 05/08/19 - Critical Care Critical Care patient: No
[2019-05-08] MEDS ORDERED: ACETAMINOPHEN 325 MG TABLET (FP) PO PRN (22:05)
[2019-05-09 07:15] LABS: HEMATOCRIT 27.1 % (32.4-45.2); HEMOGLOBIN 9.1 GM/dL (10.7-15.3); MCH 31.3 pg (25.7-33.7); MCHC 33.6 g/dl (32.0-36.0); MEAN CELL VOLUME 93.2 fl (80-96); MEAN PLT VOLUME 8.1 fl (7.5-11.1); PLATELET COUNT 361 K/MM3 (134-434); RBC 2.91 M/mm3 (3.60-5.2); RDW 14.6 % (11.6-15.6); WHITE BLOOD COUNT 9.9 K/mm3 (4.0-10.0)
[2019-05-09 07:50] LABS: ALBUMIN 3.1 g/dl (3.4-5.0); BILIRUBIN,TOTAL 0.8 mg/dL (0.2-1); CALCIUM 8.9 mg/dL (8.5-10.1); POTASSIUM 4.5 mmol/L (3.5-5.1)
[2019-05-09] MEDS: GABAPENTIN 300 MG CAPSULE (FP) PO SCH ×3 (08:00→22:22)
[2019-05-09] MEDS: LEVOTHYROXINE NA 125 MCG TABLET (FP) PO SCH (08:30)
[2019-05-09] MEDS: INSULIN SLIDING SCALE (NOVOLOG) 1 VIAL SQ SCH ×3 (09:24→17:20)
[2019-05-09] MEDS: RAMIPRIL 2.5 MG CAPSULE (FP) PO SCH (09:29)
[2019-05-09] MEDS: RANOLAZINE E.R. 500 MG TABLET (FP) PO SCH ×2 (09:30→22:22)
[2019-05-09] MEDS: CARVEDILOL 6.25 MG TABLET (FP) PO SCH ×2 (09:30→22:23)
[2019-05-09] MEDS: CLOPIDOGREL BISULFATE 75 MG TABLET (FP) PO SCH (09:30)
[2019-05-09] MEDS: POLYETHYLENE GLYCOL 3350 119 GM BTL PO SCH ×2 (09:30→22:25)
[2019-05-09] MEDS: PANTOPRAZOLE 40 MG TABLET (FP) PO SCH (09:30)
[2019-05-09] MEDS: FUROSEMIDE 40 MG TABLET (FP) PO SCH (09:30)
[2019-05-09] MEDS: EZETIMIBE 10 MG TABLET (FP) PO SCH (09:30)
[2019-05-09] MEDS: SERTRALINE HCL 25 MG TABLET (FP) PO SCH (09:31)
--- NOTE | 2019-05-09 09:47 | EKG ---
Test Reason : Blood Pressure : / mmHG Vent. Rate : 065 BPM Atrial Rate : 312 BPM P-R Int : 170 ms QRS Dur : 090 ms QT Int : 416 ms P-R-T Axes : 070 020 131 degrees QTc Int : 432 ms UNDETERMINED RHYTHM ABNORMAL ECG WHEN COMPARED WITH ECG OF 26-APR-2019 14:52, CURRENT UNDETERMINED RHYTHM PRECLUDES RHYTHM COMPARISON, NEEDS REVIEW T WAVE INVERSION MORE EVIDENT IN LATERAL LEADS Confirmed by MD Phan, Juan C ([id number]) on 05/09/2019 9:47:04 AM Referred By: Confirmed By:Juan C Chisholm MD
[2019-05-09] MEDS ORDERED: VANCOMYCIN HCL 1 GM IV SCH (10:00)
[2019-05-09] MEDS ORDERED: VANCOMYCIN 1 GRAM (PRE-DOCKED) 1,000 MG/250 ML BAG IVPB ONE ×2 (10:00)
--- NOTE | 2019-05-09 13:29 | PN ---
Progress Note (short form) - Note Progress Note: abd pain no nausea Vital Signs - 24 hr 05/09/19 05/09/19 05/09/19 01:35 01:37 09:00 Temperature 98.4 F Pulse Rate [ 70 72 Left] Respiratory 19 18 Rate Blood Pressure 154/74 120/50 L [Left Arm] O2 Sat by Pulse 98 98 95 Oximetry (%) Current Medications Generic Name Dose Route Start Last Admin Trade Name Freq PRN Reason Stop Dose Admin Acetaminophen 650 mg 05/08/19 22:05 Tylenol - PO Q6H PRN PAIN LEVEL 1-5 Atorvastatin Calcium 40 mg 05/09/19 22:00 Lipitor - PO HS [facility] Carvedilol 6.25 mg 05/09/19 10:00 05/09/19 09:30 Coreg - PO 6.25 mg BID [facility] Administration Clopidogrel Bisulfate 75 mg 05/09/19 10:00 05/09/19 09:30 Plavix - PO 75 mg DAILY [facility] Administration Ezetimibe 10 mg 05/09/19 10:00 05/09/19 09:30 Zetia - PO 10 mg DAILY [facility] Administration Furosemide 40 mg 05/09/19 10:00 05/09/19 09:30 Lasix - PO 40 mg DAILY [facility] Administration Gabapentin 600 mg 05/09/19 06:00 05/09/19 08:00 Neurontin - PO 600 mg TID [facility] Administration Insulin Aspart 1 vial 05/09/19 07:00 05/09/19 11:48 Novolog Vial Sliding Scale - SQ 4 units TIDAC [facility] Administration Protocol Insulin Detemir 35 units 05/09/19 22:00 Levemir Vial SQ [facility] Levothyroxine Sodium 125 mcg 05/09/19 07:00 05/09/19 08:30 Synthroid - PO 125 mcg DAILY@0700 [facility] Administration Non-Formulary Medication 1 gm 05/10/19 10:00 Vancomycin Hcl IV 05/10/19 23:59 DAILY [facility] Pantoprazole Sodium 40 mg 05/09/19 10:00 05/09/19 09:30 Protonix - PO 40 mg DAILY [facility] Administration Polyethylene Glycol 17 gm 05/09/19 10:00 05/09/19 09:30 Miralax (For Daily Use) - PO Not Given BID [facility] Ramipril 2.5 mg 05/09/19 10:00 05/09/19 09:29 Altace - PO 2.5 mg DAILY [facility] Administration Ranolazine 500 mg 05/09/19 10:00 05/09/19 09:30 Ranexa - PO 500 mg BID [facility] Administration Senna 2 tab 05/09/19 22:00 Senna - PO HS [facility] Sertraline HCl 25 mg 05/09/19 10:00 05/09/19 09:31 Zoloft - PO 25 mg DAILY [facility] Administration Laboratory Results - last 24 hr 05/08/19 05/08/19 05/08/19 12:39 13:06 18:21 WBC RBC Hgb Hct MCV MCH MCHC RDW Plt Count MPV Sodium 132 L Potassium 4.3 Chloride 96 L Carbon Dioxide 29 Anion Gap 7 L BUN 28.8 H Creatinine 1.3 Est GFR (CKD-EPI)AfAm 43.63 Est GFR (CKD-EPI)NonAf 37.64 POC Glucometer Random Glucose 130 H Hemoglobin A1c % Calcium 9.0 Total Bilirubin 0.8 AST 66 H ALT 80 H Alkaline Phosphatase 112 Creatine Kinase 207 H Creatine Kinase Index 0.9 CK-MB (CK-2) 1.9 Troponin I 0.27 H 0.23 H Total Protein 7.2 Albumin 3.2 L TSH Urine RBC (Auto) 20.1 05/09/19 05/09/19 05/09/19 06:20 06:20 06:20 WBC 9.9 RBC 2.91 L Hgb 9.1 L Hct 27.1 L MCV 93.2 MCH 31.3 MCHC 33.6 RDW 14.6 Plt Count 361 MPV 8.1 Sodium 135 L Potassium 4.5 Chloride 98 Carbon Dioxide 27 Anion Gap 10 BUN 24.0 H Creatinine 1.0 Est GFR (CKD-EPI)AfAm 59.91 Est GFR (CKD-EPI)NonAf 51.69 POC Glucometer Random Glucose 163 H Hemoglobin A1c % 8.5 H Calcium 8.9 Total Bilirubin 0.8 AST 39 H ALT 68 H Alkaline Phosphatase 108 Creatine Kinase Creatine Kinase Index CK-MB (CK-2) Troponin I 0.10 H Total Protein 7.0 Albumin 3.1 L TSH 0.24 L Urine RBC (Auto) 05/09/19 05/09/19 05/09/19 06:20 08:07 11:43 WBC RBC Hgb Hct MCV MCH MCHC RDW Plt Count MPV Sodium Potassium Chloride Carbon Dioxide Anion Gap BUN Creatinine Est GFR (CKD-EPI)AfAm Est GFR (CKD-EPI)NonAf POC Glucometer 163 222 Random Glucose Hemoglobin A1c % Calcium Total Bilirubin AST ALT Alkaline Phosphatase Creatine Kinase Creatine Kinase Index CK-MB (CK-2) Troponin I 0.10 H Total Protein Albumin TSH Urine RBC (Auto) S 1s2 RRR Lungs clear Abd -soft, obese, Tender generalized Edema+ PLAN LFT trending down Still has persistent abd pain GI eval continue Vancomycin - last day tomorrow cardiac enzymes flat trend CT head negative Problem List - Problems (1) Elevated troponin Code(s): R79.89 - OTHER SPECIFIED ABNORMAL FINDINGS OF BLOOD CHEMISTRY (2) HAROLDO (acute kidney injury) Code(s): N17.9 - ACUTE KIDNEY FAILURE, UNSPECIFIED (3) Acute metabolic encephalopathy Code(s): G93.41 - METABOLIC ENCEPHALOPATHY (4) Anemia Code(s): D64.9 - ANEMIA, UNSPECIFIED (5) COPD (chronic obstructive pulmonary disease) Code(s): J44.9 - CHRONIC OBSTRUCTIVE PULMONARY DISEASE, UNSPECIFIED (6) Diabetes Code(s): E11.9 - TYPE 2 DIABETES MELLITUS WITHOUT COMPLICATIONS (7) Diabetic ulcer of toe associated with diabetes mellitus due to underlying condition Code(s): E08.621 - DIABETES MELLITUS DUE TO UNDERLYING CONDITION W FOOT ULCER; L97.509 - NON-PRESSURE CHRONIC ULCER OTH PRT UNSP FOOT W UNSP SEVERITY Qualifiers: Laterality: left Non-pressure ulcer stage: unspecified non-pressure ulcer stage Qualified Code(s): E08.621 - Diabetes mellitus due to underlying condition with foot ulcer; L97.529 - Non-pressure chronic ulcer of other part of left foot with unspecified severity
[2019-05-09 15:45] VITALS: BMI 28.6
[2019-05-09] MEDS: SENNOSIDES 8.6MG TABLET (FP) PO SCH (22:23)
[2019-05-09] MEDS: INSULIN (LEVEMIR) 100 UNITS/ML UNITS SQ SCH (22:24)
[2019-05-09] MEDS: ATORVASTATIN CA 40 MG TABLET (FP) PO SCH (22:25)
--- NOTE | 2019-05-09 22:59 | CON.CARD ---
Consult Consult Specialty:: Cardiology Referred by:: hospitalist Reason for Consultation:: Cardiac evaluation - History of Present Illness Chief Complaint: Altered mental status History of Present Illness: Patient is an 84 year old female previously seen by our group on August and March of this year with underlying history of HTN, hypercholesterolemia, CAD s/p CABG, DM, CVA, left toe gangrene with osteomyelitis (previously had PICC line for antibiotic) and mild to moderate LV systolic dysfunction who presented to ED with intermittent confusion and mental status change along with gait disturbance. She was seen in the ED with her daughter by the bedside. Her daughter reports intense pain with urination previous week. She does not report chest pain or shortness of breath. Denies fever or chills. According to ED note , patient was found to have fallen out of the bed when trying to go to the bathroom. She did not suffer any visible injury at that time. Patient complains of mid abdominal discomfort with deep palpation. 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: CVA Cardio/Vascular: Yes: CAD, CHF, HTN, Hyperlipdemia Gastrointestinal: Yes: GERD Renal/: Yes: Renal Inusuff ...: No Infectious Disease: Yes: Other (osteomyelitis) Psych: Yes: Depression Musculoskeletal: Yes: Other (chronic dyesthesias of bilateral upper and lower extremities) Endocrine: Yes: Diabetes Mellitus, Hypothyroidism - Past Surgical History Past Surgical History: Yes: CABG, Joint Replacement (right elbow sx), Stent - Alcohol/Substance Use Hx Alcohol Use: No History of Substance Use: reports: None - Smoking History Smoking history: Never smoked Have you smoked in the past 12 months: No Aproximately how many cigarettes per day: 0 - Social History ADL: Support Services History of Recent Travel: No Home Medications - Allergies Allergies/Adverse Reactions: Allergies Allergy/AdvReac Type Severity Reaction Status Date / Time No Known Drug Allergies Allergy Verified 05/08/19 11:45 - Home Medications Home Medications: Ambulatory Orders Carvedilol [Coreg -] 6.25 mg PO BID 08/20/17 Levothyroxine [Synthroid -] 125 mcg PO DAILY 08/20/17 Ranolazine [Ranexa] 500 mg PO BID 08/20/17 Atorvastatin Ca [Lipitor] 40 mg PO HS #30 tablet 09/21/17 Gabapentin [Neurontin -] 600 mg PO TID 02/25/18 Clopidogrel Bisulfate [Plavix -] 75 mg PO DAILY tablet 08/24/18 Ezetimibe [Zetia -] 10 mg PO DAILY tablet 08/24/18 Acetaminophen 650 mg PO DAILY PRN MDD 1950 09/08/18 Furosemide [Lasix -] 40 mg PO DAILY 04/26/19 Ramipril 2.5 mg PO DAILY 04/26/19 Insulin (Levemir) [Levemir Vial] 35 units SQ HS units 04/28/19 Insulin Sliding Scale [Novolog Vial Sliding Scale -] 1 vial SQ TIDAC units 11/09 Pantoprazole Sodium [Protonix -] 40 mg PO DAILY tablet.ec 04/28/19 Polyethylene Glycol 3350 [Miralax 119 gm Btl -] 17 gm PO BID bottle 04/28/19 Psyllium [Metamucil (Sugar-Free) -] 5.85 gm PO BID packet 04/28/19 Lactobacillus Acidophilus [Bacid -] 1 each PO BID 05/08/19 Oseltamivir Phosphate [Tamiflu] 75 mg PO DAILY 05/08/19 Pantoprazole Sodium [Protonix] 40 mg PO DAILY 05/08/19 Sennosides [Senna] 2 tab PO HS 05/08/19 Sertraline HCl [Zoloft] 25 mg PO DAILY 05/08/19 Vancomycin HCl 1 gm IV DAILY 05/08/19 Family Medical History Family Hx Diabetes: Father Review of Systems Unable to obtain ROS, reason: Not able to obtain Vital Signs: Vital Signs Temperature 98.2 F 05/09/19 21:01 Pulse Rate 56 L 05/09/19 21:01 Respiratory Rate 20 05/09/19 21:01 Blood Pressure 128/60 05/09/19 21:01 O2 Sat by Pulse Oximetry (%) 98 05/09/19 21:00 HENT: Yes: Atraumatic Neck: Yes: Supple Respiratory: Yes: Diminished Gastrointestinal: Yes: Normal Bowel Sounds, Soft. No: Tenderness Cardiovascular: Yes: Regular Rate and Rhythm JVD: No PMI: Non-Displaced Heart Sounds: Yes: S1, S2. No: Gallop Murmur: Yes: Systolic Murmur, Grade 1 Edema: No - Other Data Labs, Other Data: CBC, BMP 05/09/19 06:20 05/09/19 06:20 Troponin, BNP 05/09/19 05/09/19 06:20 06:20 Troponin I 0.10 H 0.10 H Laboratory Results - last 24 hr 05/09/19 05/09/19 05/09/19 06:20 06:20 06:20 WBC 9.9 RBC 2.91 L Hgb 9.1 L Hct 27.1 L MCV 93.2 MCH 31.3 MCHC 33.6 RDW 14.6 Plt Count 361 MPV 8.1 Sodium 135 L Potassium 4.5 Chloride 98 Carbon Dioxide 27 Anion Gap 10 BUN 24.0 H Creatinine 1.0 Est GFR (CKD-EPI)AfAm 59.91 Est GFR (CKD-EPI)NonAf 51.69 POC Glucometer Random Glucose 163 H Hemoglobin A1c % 8.5 H Calcium 8.9 Total Bilirubin 0.8 AST 39 H ALT 68 H Alkaline Phosphatase 108 Troponin I 0.10 H Total Protein 7.0 Albumin 3.1 L TSH 0.24 L Free T4 1.57 H 05/09/19 05/09/19 05/09/19 06:20 08:07 11:43 WBC RBC Hgb Hct MCV MCH MCHC RDW Plt Count MPV Sodium Potassium Chloride Carbon Dioxide Anion Gap BUN Creatinine Est GFR (CKD-EPI)AfAm Est GFR (CKD-EPI)NonAf POC Glucometer 163 222 Random Glucose Hemoglobin A1c % Calcium Total Bilirubin AST ALT Alkaline Phosphatase Troponin I 0.10 H Total Protein Albumin TSH Free T4 Undetermined rhythm but likely sinus Previously ECG was sinus Echo: Report Reviewed (Moderate LV systolic dysfunction, restrictive filling pattern, moderate TR) Imaging - Results Chest X-ray: Report Reviewed (Congestive changes) Cat Scan: Report Reviewed (Head CT unremarkable) EKG: Report Reviewed Problem List - Problems (1) Elevated troponin Code(s): R79.89 - OTHER SPECIFIED ABNORMAL FINDINGS OF BLOOD CHEMISTRY (2) Acute metabolic encephalopathy Code(s): G93.41 - METABOLIC ENCEPHALOPATHY (3) Acute on chronic systolic (congestive) heart failure Code(s): I50.23 - ACUTE ON CHRONIC SYSTOLIC (CONGESTIVE) HEART FAILURE (4) Anemia Code(s): D64.9 - ANEMIA, UNSPECIFIED (5) COPD (chronic obstructive pulmonary disease) Code(s): J44.9 - CHRONIC OBSTRUCTIVE PULMONARY DISEASE, UNSPECIFIED (6) Cellulitis Code(s): L03.90 - CELLULITIS, UNSPECIFIED (7) Diabetes Code(s): E11.9 - TYPE 2 DIABETES MELLITUS WITHOUT COMPLICATIONS (8) Osteomyelitis Code(s): M86.9 - OSTEOMYELITIS, UNSPECIFIED (9) PAD (peripheral artery disease) Code(s): I73.9 - PERIPHERAL VASCULAR DISEASE, UNSPECIFIED (10) Abnormal EKG Code(s): R94.31 - ABNORMAL ELECTROCARDIOGRAM [ECG] [EKG] (11) CAD (coronary artery disease) Code(s): I25.10 - ATHSCL HEART DISEASE OF [place] CORONARY ARTERY W/O ANG PCTRS Qualifiers: Coronary Disease-Associated Artery/Lesion type: [place] artery [place] vs. transplanted heart: [place] heart Associated angina: with unstable angina Qualified Code(s): I25.110 - Atherosclerotic heart disease of [place] coronary artery with unstable angina pectoris (12) CHF (congestive heart failure) Code(s): I50.9 - HEART FAILURE, UNSPECIFIED Qualifiers: Heart failure type: unspecified Heart failure chronicity: acute on chronic Qualified Code(s): I50.9 - Heart failure, unspecified (13) CKD (chronic kidney disease) stage 3, GFR 30-59 ml/min Code(s): N18.3 - CHRONIC KIDNEY DISEASE, STAGE 3 (MODERATE) (14) Chronic combined systolic and diastolic heart failure Code(s): I50.42 - CHRONIC COMBINED SYSTOLIC AND DIASTOLIC HRT FAIL (15) Dementia Code(s): F03.90 - UNSPECIFIED DEMENTIA WITHOUT BEHAVIORAL DISTURBANCE Qualifiers: Dementia type: unspecified type Dementia behavioral disturbance: without behavioral disturbance Qualified Code(s): F03.90 - Unspecified dementia without behavioral disturbance (16) GERD (gastroesophageal reflux disease) Code(s): K21.9 - GASTRO-ESOPHAGEAL REFLUX DISEASE WITHOUT ESOPHAGITIS (17) Hyperlipidemia Code(s): E78.5 - HYPERLIPIDEMIA, UNSPECIFIED Qualifiers: Hyperlipidemia type: pure hypercholesterolemia Qualified Code(s): E78.00 - Pure hypercholesterolemia, unspecified; E78.0 - Pure hypercholesterolemia (18) Hypertension Code(s): I10 - ESSENTIAL (PRIMARY) HYPERTENSION (19) S/P CABG (coronary artery bypass graft) Code(s): Z95.1 - PRESENCE OF AORTOCORONARY BYPASS GRAFT (20) Type 2 diabetes mellitus Code(s): E11.9 - TYPE 2 DIABETES MELLITUS WITHOUT COMPLICATIONS Qualifiers: Diabetes mellitus long term care social worker insulin use: unspecified [place] [facility] insulin use status Diabetes mellitus complication status: with neurologic complications Diabetes mellitus complication detail: with polyneuropathy Qualified Code(s): E11.42 - Type 2 diabetes mellitus with diabetic polyneuropathy (21) [id number] kidney injury Code(s): N17.9 - ACUTE KIDNEY FAILURE, UNSPECIFIED; N18.9 - CHRONIC KIDNEY DISEASE, UNSPECIFIED Qualifiers: Chronic kidney disease stage: stage 3 (moderate) Assessment/Plan 1. Altered mental status and intermittent confusion ? toxic metabolic ? underlying dementia ? sepsis 2. Abdominal pain ? etiology 3. LV systolic dysfunction w/ history of failure 4. Pulmonary HTN 5. History of cellulitis 6. T2DM 7. CAD s/p [place], CABG, angina pectoris 8. PAD with gangrene left 4th toe osteomyelitis s/p left popliteal angioplasty 9. Anemia 10. Hypothyroidism 11. Elevated troponin due to demand ischemia 12. Abnormal LFT etiology to be determined PLAN: 1. Empiric IV antibiotic coverage. Urine culture pending 2. Continue Carvedilol 6.25 mg BID, Lipitor 40 mg QHS, Zetia 10 mg QD, Ramipril 2.5 mg QD and Ranexa 500 mg BID as tolerated 3. Continue ASA 81 mg QD and Plavix 75 mg QD 4. GI evaluation to follow 5. GI prophylaxis 6. Trend troponin (peaked at 0.27) 7. Echocardiography was done in March 2019 Further plans are to follow Sim Mcknight MD
[2019-05-10] MEDS: GABAPENTIN 300 MG CAPSULE (FP) PO SCH ×3 (06:58→21:26)
[2019-05-10] MEDS: LEVOTHYROXINE NA 125 MCG TABLET (FP) PO SCH (06:59)
[2019-05-10] MEDS: INSULIN SLIDING SCALE (NOVOLOG) 1 VIAL SQ SCH ×3 (06:59→18:25)
[2019-05-10 07:09] LABS: ALBUMIN 2.7 g/dl (3.4-5.0); BILIRUBIN,TOTAL 0.7 mg/dL (0.2-1); BLOOD UREA NITROGEN 25.4 mg/dL (7-18); CALCIUM 8.7 mg/dL (8.5-10.1); CREATININE 1.2 mg/dL (0.55-1.3); POTASSIUM 4.6 mmol/L (3.5-5.1); TOT PROT 6.2 g/dl (6.4-8.2)
--- NOTE | 2019-05-10 08:12 | CON.GI ---
Consult Consult Specialty:: GI Referred by:: Dr Laura Eng Reason for Consultation:: Abdominal Pain - History of Present Illness History of Present Illness: Patient is an 89 y/o female with past medical history of ESBL + UTI, HTN, HLD, CHF, Neuropathy. Consult was placed for complaints of abdominal pain. Patient is poor historian and is alert and oriented x 1. She is currently denying abdominal pain on exam. Patient had Colonoscopy in 2014 showing diverticula in sigmoid and descending colon. Denies dysphagia, nausea, vomiting, abdominal pain, diarrhea, rectal bleeding, or melena. On admission LFTs mildly elevated but have shown downtrend. Abdomen/Pelvic CT scan shows probably cholelithiasis without CT evidence of acute cholecystitis, mild nonspecific CBD dilatation 0.8cm. 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: CVA Cardio/Vascular: Yes: CAD, CHF, HTN, Hyperlipdemia Gastrointestinal: Yes: GERD Renal/: Yes: Renal Inusuff ...: No Infectious Disease: Yes: Other (osteomyelitis) Psych: Yes: Depression Musculoskeletal: Yes: Other (chronic dyesthesias of bilateral upper and lower extremities) Endocrine: Yes: Diabetes Mellitus, Hypothyroidism - Past Surgical History Past Surgical History: Yes: CABG, Joint Replacement (right elbow sx), Stent - Alcohol/Substance Use Hx Alcohol Use: No History of Substance Use: reports: None - Smoking History Smoking history: Never smoked Have you smoked in the past 12 months: No Aproximately how many cigarettes per day: 0 - Social History ADL: Support Services History of Recent Travel: No Home Medications - Allergies Allergies/Adverse Reactions: Allergies Allergy/AdvReac Type Severity Reaction Status Date / Time No Known Drug Allergies Allergy Verified 05/08/19 11:45 - Home Medications Home Medications: Ambulatory Orders Carvedilol [Coreg -] 6.25 mg PO BID 08/20/17 Levothyroxine [Synthroid -] 125 mcg PO DAILY 08/20/17 Ranolazine [Ranexa] 500 mg PO BID 08/20/17 Atorvastatin Ca [Lipitor] 40 mg PO HS #30 tablet 09/21/17 Gabapentin [Neurontin -] 600 mg PO TID 02/25/18 Clopidogrel Bisulfate [Plavix -] 75 mg PO DAILY tablet 08/24/18 Ezetimibe [Zetia -] 10 mg PO DAILY tablet 08/24/18 Acetaminophen 650 mg PO DAILY PRN MDD 1950 09/08/18 Furosemide [Lasix -] 40 mg PO DAILY 04/26/19 Ramipril 2.5 mg PO DAILY 04/26/19 Insulin (Levemir) [Levemir Vial] 35 units SQ HS units 04/28/19 Insulin Sliding Scale [Novolog Vial Sliding Scale -] 1 vial SQ TIDAC units 11/09 Pantoprazole Sodium [Protonix -] 40 mg PO DAILY tablet.ec 04/28/19 Polyethylene Glycol 3350 [Miralax 119 gm Btl -] 17 gm PO BID bottle 04/28/19 Psyllium [Metamucil (Sugar-Free) -] 5.85 gm PO BID packet 04/28/19 Lactobacillus Acidophilus [Bacid -] 1 each PO BID 05/08/19 Oseltamivir Phosphate [Tamiflu] 75 mg PO DAILY 05/08/19 Pantoprazole Sodium [Protonix] 40 mg PO DAILY 05/08/19 Sennosides [Senna] 2 tab PO HS 05/08/19 Sertraline HCl [Zoloft] 25 mg PO DAILY 05/08/19 Vancomycin HCl 1 gm IV DAILY 05/08/19 Review of Systems - Review of Systems Constitutional: reports: No Symptoms Eyes: reports: No Symptoms HENT: reports: No Symptoms Neck: reports: No Symptoms Cardiovascular: reports: No Symptoms Respiratory: reports: No Symptoms Gastrointestinal: reports: No Symptoms Genitourinary: reports: No Symptoms Breasts: reports: No Symptoms Reported Musculoskeletal: reports: No Symptoms Integumentary: reports: No Symptoms Neurological: reports: No Symptoms Endocrine: reports: No Symptoms Hematology/Lymphatic: reports: No Symptoms Psychiatric: reports: No Symptoms Physical Exam-GI Vital Signs: Vital Signs Temperature 98.4 F 05/10/19 02:00 Pulse Rate 55 L 05/10/19 02:00 Respiratory Rate 20 05/10/19 02:00 Blood Pressure 100/41 L 05/10/19 02:00 O2 Sat by Pulse Oximetry (%) 98 05/09/19 21:00 Constitutional: Yes: No Distress, Calm Eyes: Yes: Conjunctiva Clear HENT: Yes: Atraumatic Cardiovascular: Yes: Regular Rate and Rhythm Respiratory: Yes: Regular, CTA Bilaterally Gastrointestinal Inspection: Yes: WNL. No: Ascites, Distention, Hernia, Scars, Other ...Auscultate: Yes: Normoactive Bowel Sounds. No: Hyperactive Bowel Sounds, Hypoactive Bowel Sounds, No Bowel Sounds, Other ...Palpate: Yes: Soft. No: Firm/Rigid, Guarding, Hepatomegaly, Mass, Pulsatile Mass, Splenomegaly, Tenderness, Tenderness, Epigastium, Tenderness, Rebound, Other ...Percussion: Yes: Tympanitic. No: Dullness, Fluid Wave, Other Genitourinary: Yes: Parish Present Neurological: Yes: Alert, Confusion Psychiatric: Yes: Alert Labs: CBC, BMP 05/09/19 06:20 05/10/19 06:00 Active Medications Generic Name Dose Route Start Last Admin Trade Name Freq PRN Reason Stop Dose Admin Acetaminophen 650 mg 05/08/19 22:05 Tylenol - PO Q6H PRN PAIN LEVEL 1-5 Atorvastatin Calcium 40 mg 05/09/19 22:00 05/09/19 22:25 Lipitor - PO 40 mg HS PALOMA Administration Carvedilol 6.25 mg 05/09/19 10:00 05/09/19 22:23 Coreg - PO 6.25 mg BID PALOMA Administration Clopidogrel Bisulfate 75 mg 05/09/19 10:00 05/09/19 09:30 Plavix - PO 75 mg DAILY PALOMA Administration Ezetimibe 10 mg 05/09/19 10:00 05/09/19 09:30 Zetia - PO 10 mg DAILY PALOMA Administration Furosemide 40 mg 05/09/19 10:00 05/09/19 09:30 Lasix - PO 40 mg DAILY PALOMA Administration Gabapentin 600 mg 05/09/19 06:00 05/10/19 06:58 Neurontin - PO 600 mg TID PALOAM Administration Insulin Aspart 1 vial 05/09/19 07:00 05/10/19 06:59 Novolog Vial Sliding Scale - SQ 2 units TIDAC PALOMA Administration Protocol Insulin Detemir 35 units 05/09/19 22:00 05/09/19 22:24 Levemir Vial SQ Not Given HS [facility] Levothyroxine Sodium 125 mcg 05/09/19 07:00 05/10/19 06:59 Synthroid - PO 125 mcg DAILY@0700 PALOMA Administration Non-Formulary Medication 1 gm 05/10/19 10:00 Vancomycin Hcl IV 05/10/19 23:59 DAILY PALOMA Pantoprazole Sodium 40 mg 05/09/19 10:00 05/09/19 09:30 Protonix - PO 40 mg DAILY PALOMA Administration Polyethylene Glycol 17 gm 05/09/19 10:00 05/09/19 22:25 Miralax (For Daily Use) - PO Not Given BID PALOMA Ramipril 2.5 mg 05/09/19 10:00 05/09/19 09:29 Altace - PO 2.5 mg DAILY PALOMA Administration Ranolazine 500 mg 05/09/19 10:00 05/09/19 22:22 Ranexa - PO 500 mg BID PAOLMA Administration Senna 2 tab 05/09/19 22:00 05/09/19 22:23 Senna - PO 2 tab HS PALOMA Administration Sertraline HCl 25 mg 05/09/19 10:00 05/09/19 09:31 Zoloft - PO 25 mg DAILY PALOMA Administration Imaging - Results Cat Scan: Report Reviewed Problem List - Problems (1) Abdominal pain Assessment/Plan: >Abdomen/Pelvic CT scan shows probably cholelithiasis without CT evidence of acute cholecystitis, mild nonspecific CBD dilatation 0.8cm >Abd MRCP ordered rule out stone in CBD Code(s): R10.9 - UNSPECIFIED ABDOMINAL PAIN
[2019-05-10] MEDS ORDERED: VANCOMYCIN HCL 1 GM IV SCH (10:00)
[2019-05-10] MEDS: CLOPIDOGREL BISULFATE 75 MG TABLET (FP) PO SCH (10:33)
[2019-05-10] MEDS: POLYETHYLENE GLYCOL 3350 119 GM BTL PO SCH ×2 (10:33→21:40)
[2019-05-10] MEDS: FUROSEMIDE 40 MG TABLET (FP) PO SCH (10:33)
[2019-05-10] MEDS: CARVEDILOL 6.25 MG TABLET (FP) PO SCH ×2 (10:33→21:26)
[2019-05-10] MEDS: RANOLAZINE E.R. 500 MG TABLET (FP) PO SCH ×2 (10:33→21:28)
[2019-05-10] MEDS: EZETIMIBE 10 MG TABLET (FP) PO SCH (10:33)
[2019-05-10] MEDS: RAMIPRIL 2.5 MG CAPSULE (FP) PO SCH (10:33)
[2019-05-10] MEDS: SERTRALINE HCL 25 MG TABLET (FP) PO SCH (10:33)
[2019-05-10] MEDS: PANTOPRAZOLE 40 MG TABLET (FP) PO SCH (10:33)
--- NOTE | 2019-05-10 11:10 | PN ---
Progress Note, Physician History of Present Illness: Denies abd pain - Current Medication List Current Medications: Active Medications Acetaminophen (Tylenol -) 650 mg PO Q6H PRN PRN Reason: PAIN LEVEL 1-5 Atorvastatin Calcium (Lipitor -) 40 mg PO [facility] Last Admin: 05/09/19 22:25 Dose: 40 mg Carvedilol (Coreg -) 6.25 mg PO BID [facility] Last Admin: 05/10/19 10:33 Dose: 6.25 mg Clopidogrel Bisulfate (Plavix -) 75 mg PO DAILY [facility] Last Admin: 05/10/19 10:33 Dose: 75 mg Ezetimibe (Zetia -) 10 mg PO DAILY [facility] Last Admin: 05/10/19 10:33 Dose: 10 mg Furosemide (Lasix -) 40 mg PO DAILY [facility] Last Admin: 05/10/19 10:33 Dose: 40 mg Gabapentin (Neurontin -) 600 mg PO TID [facility] Last Admin: 05/10/19 06:58 Dose: 600 mg Insulin Aspart (Novolog Vial Sliding Scale -) [facility] Protocol Last Admin: 05/10/19 06:59 Dose: 2 units Insulin Detemir (Levemir Vial) 35 units SQ [facility] Last Admin: 05/09/19 22:24 Dose: Not Given Levothyroxine Sodium (Synthroid -) 125 mcg PO DAILY@0700 [facility] Last Admin: 05/10/19 06:59 Dose: 125 mcg Non-Formulary Medication (Vancomycin Hcl) 1 gm IV DAILY [facility] Stop: 05/10/19 23:59 Pantoprazole Sodium (Protonix -) 40 mg PO DAILY [facility] Last Admin: 05/10/19 10:33 Dose: 40 mg Polyethylene Glycol (Miralax (For Daily Use) -) 17 gm PO BID [facility] Last Admin: 05/10/19 10:33 Dose: 17 gm Ramipril (Altace -) 2.5 mg PO DAILY [facility] Last Admin: 05/10/19 10:33 Dose: 2.5 mg Ranolazine (Ranexa -) 500 mg PO BID [facility] Last Admin: 05/10/19 10:33 Dose: 500 mg Senna (Senna -) 2 tab PO [facility] Last Admin: 05/09/19 22:23 Dose: 2 tab Sertraline HCl (Zoloft -) 25 mg PO DAILY [facility] Last Admin: 05/10/19 10:33 Dose: 25 mg - Objective Vital Signs: Vital Signs Temperature 98.4 F 05/10/19 02:00 Pulse Rate 55 L 05/10/19 02:00 Respiratory Rate 20 05/10/19 02:00 Blood Pressure 100/41 L 05/10/19 02:00 O2 Sat by Pulse Oximetry (%) 97 05/10/19 09:00 Constitutional: Yes: No Distress, Calm Neck: Yes: Supple Cardiovascular: Yes: Regular Rate and Rhythm Respiratory: Yes: Regular, Diminished Gastrointestinal: Yes: Normal Bowel Sounds, Soft Genitourinary: Yes: Parish Present Edema: No Labs: CBC, BMP 05/09/19 06:20 05/10/19 06:00 - ....Imaging EKG: Report Reviewed (Tele: NSR) Problem List - Problems (1) Abdominal pain Code(s): R10.9 - UNSPECIFIED ABDOMINAL PAIN (2) Elevated troponin Code(s): R79.89 - OTHER SPECIFIED ABNORMAL FINDINGS OF BLOOD CHEMISTRY (3) COPD (chronic obstructive pulmonary disease) Code(s): J44.9 - CHRONIC OBSTRUCTIVE PULMONARY DISEASE, UNSPECIFIED Qualifiers: COPD type: unspecified COPD Qualified Code(s): J44.9 - Chronic obstructive pulmonary disease, unspecified (4) Diabetes Code(s): E11.9 - TYPE 2 DIABETES MELLITUS WITHOUT COMPLICATIONS Qualifiers: Diabetes mellitus type: type 2 (5) Diabetic ulcer of toe associated with diabetes mellitus due to underlying condition Code(s): E08.621 - DIABETES MELLITUS DUE TO UNDERLYING CONDITION W FOOT ULCER; L97.509 - NON-PRESSURE CHRONIC ULCER OTH PRT UNSP FOOT W UNSP SEVERITY Qualifiers: Laterality: left Non-pressure ulcer stage: unspecified non-pressure ulcer stage Qualified Code(s): E08.621 - Diabetes mellitus due to underlying condition with foot ulcer; L97.529 - Non-pressure chronic ulcer of other part of left foot with unspecified severity (6) PAD (peripheral artery disease) Code(s): I73.9 - PERIPHERAL VASCULAR DISEASE, UNSPECIFIED (7) CAD (coronary artery disease) Code(s): I25.10 - ATHSCL HEART DISEASE OF [place] CORONARY ARTERY W/O ANG PCTRS Qualifiers: Coronary Disease-Associated Artery/Lesion type: [place] artery [place] vs. transplanted heart: [place] heart Associated angina: with unstable angina Qualified Code(s): I25.110 - Atherosclerotic heart disease of [place] coronary artery with unstable angina pectoris (8) CKD (chronic kidney disease) stage 3, GFR 30-59 ml/min Code(s): N18.3 - CHRONIC KIDNEY DISEASE, STAGE 3 (MODERATE) (9) Chronic combined systolic and diastolic heart failure Code(s): I50.42 - CHRONIC COMBINED SYSTOLIC AND DIASTOLIC HRT FAIL (10) Hyperlipidemia Code(s): E78.5 - HYPERLIPIDEMIA, UNSPECIFIED Qualifiers: Hyperlipidemia type: pure hypercholesterolemia Qualified Code(s): E78.00 - Pure hypercholesterolemia, unspecified; E78.0 - Pure hypercholesterolemia (11) Hypertensive cardiomyopathy Code(s): I11.9 - HYPERTENSIVE HEART DISEASE WITHOUT HEART FAILURE; I43 - CARDIOMYOPATHY IN DISEASES CLASSIFIED ELSEWHERE Qualifiers: Heart failure presence: with heart failure Qualified Code(s): I11.0 - Hypertensive heart disease with heart failure; I43 - Cardiomyopathy in diseases classified elsewhere (12) Hypothyroidism Code(s): E03.9 - HYPOTHYROIDISM, UNSPECIFIED Qualifiers: Hypothyroidism type: unspecified Qualified Code(s): E03.9 - Hypothyroidism , unspecified (13) S/P CABG (coronary artery bypass graft) Code(s): Z95.1 - PRESENCE OF AORTOCORONARY BYPASS GRAFT (14) Type 2 diabetes mellitus Code(s): E11.9 - TYPE 2 DIABETES MELLITUS WITHOUT COMPLICATIONS Qualifiers: Diabetes mellitus long term care administrator insulin use: unspecified [place] [facility] insulin use status Diabetes mellitus complication status: with neurologic complications Diabetes mellitus complication detail: with polyneuropathy Qualified Code(s): E11.42 - Type 2 diabetes mellitus with diabetic polyneuropathy Assessment/Plan Echocardiography: March 2019 Moderate decreased LVEF 35% with apicoseptal [place] , restrictive filling pattern with markedly elevated LA pressure, mod TR, mild pulm HTN RVSP 45 mmHg 1. Abdominal pain, abnormal LFT -> cholelithiasis and mild nonspecific CBD dilatation 0.8cm w/o CT evidence of acute cholecystitis r/o choledocholithiasis 2. LV systolic dysfunction w/ history of failure 3. Pulmonary HTN 4. Insulin-dependent T2DM 5. CAD s/p [place], CABG, angina pectoris 6. PAD with cellulitis and gangrene left 4th toe osteomyelitis s/p left popliteal angioplasty 7. Anemia 8. Hypothyroidism 9. Elevated troponin due to demand ischemia PLAN: 1. Empiric IV antibiotic coverage. Urine culture pending 2. Continue Carvedilol 6.25 mg BID, Lipitor 40 mg QHS, Zetia 10 mg QD, Ramipril 2.5 mg QD, Lasix 40 qd and Ranexa 500 mg BID as tolerated 3. Continue ASA 81 mg QD and Plavix 75 mg QD 4. GI evaluation appreciated 5. GI prophylaxis 6. Troponin downtrending (peaked at 0.27)
--- NOTE | 2019-05-10 11:45 | PN ---
Progress Note (short form) - Note Progress Note: abd pain less no nausea Vital Signs - 24 hr 05/09/19 05/09/19 05/09/19 13:55 15:44 15:49 Temperature 98.8 F Pulse Rate 60 Pulse Rate [ 58 L Left] Respiratory 18 20 Rate Blood Pressure 144/54 L Blood Pressure 116/40 L [Left Arm] O2 Sat by Pulse 95 98 Oximetry (%) 05/09/19 05/09/19 05/10/19 21:00 21:01 02:00 Temperature 98.2 F 98.4 F Pulse Rate 56 L 55 L Pulse Rate [ Left] Respiratory 20 20 Rate Blood Pressure 128/60 100/41 L Blood Pressure [Left Arm] O2 Sat by Pulse 98 Oximetry (%) 05/10/19 09:00 Temperature Pulse Rate Pulse Rate [ Left] Respiratory Rate Blood Pressure Blood Pressure [Left Arm] O2 Sat by Pulse 97 Oximetry (%) Current Medications Generic Name Dose Route Start Last Admin Trade Name Freq PRN Reason Stop Dose Admin Acetaminophen 650 mg 05/08/19 22:05 Tylenol - PO Q6H PRN PAIN LEVEL 1-5 Atorvastatin Calcium 40 mg 05/09/19 22:00 05/09/19 22:25 Lipitor - PO 40 mg HS [facility] Administration Carvedilol 6.25 mg 05/09/19 10:00 05/10/19 10:33 Coreg - PO 6.25 mg BID [facility] Administration Clopidogrel Bisulfate 75 mg 05/09/19 10:00 05/10/19 10:33 Plavix - PO 75 mg DAILY [facility] Administration Ezetimibe 10 mg 05/09/19 10:00 05/10/19 10:33 Zetia - PO 10 mg DAILY [facility] Administration Furosemide 40 mg 05/09/19 10:00 05/10/19 10:33 Lasix - PO 40 mg DAILY [facility] Administration Gabapentin 600 mg 05/09/19 06:00 05/10/19 06:58 Neurontin - PO 600 mg TID [facility] Administration Insulin Aspart 1 vial 05/09/19 07:00 05/10/19 06:59 Novolog Vial Sliding Scale - SQ 2 units TIDAC [facility] Administration Protocol Insulin Detemir 35 units 05/09/19 22:00 05/09/19 22:24 Levemir Vial SQ Not Given HS [facility] Levothyroxine Sodium 125 mcg 05/09/19 07:00 05/10/19 06:59 Synthroid - PO 125 mcg DAILY@0700 [facility] Administration Non-Formulary Medication 1 gm 05/10/19 10:00 Vancomycin Hcl IV 05/10/19 23:59 DAILY [facility] Nystatin 1 applic 05/10/19 12:00 Mycostatin Cream - TP Q6HPO [facility] Pantoprazole Sodium 40 mg 05/09/19 10:00 05/10/19 10:33 Protonix - PO 40 mg DAILY [facility] Administration Polyethylene Glycol 17 gm 05/09/19 10:00 05/10/19 10:33 Miralax (For Daily Use) - PO 17 gm BID [facility] Administration Ramipril 2.5 mg 05/09/19 10:00 05/10/19 10:33 Altace - PO 2.5 mg DAILY [facility] Administration Ranolazine 500 mg 05/09/19 10:00 05/10/19 10:33 Ranexa - PO 500 mg BID [facility] Administration Senna 2 tab 05/09/19 22:00 05/09/19 22:23 Senna - PO 2 tab HS [facility] Administration Sertraline HCl 25 mg 05/09/19 10:00 05/10/19 10:33 Zoloft - PO 25 mg DAILY [facility] Administration Laboratory Results - last 24 hr 05/09/19 05/09/19 05/09/19 06:20 11:43 17:16 Sodium 135 L Potassium 4.5 Chloride 98 Carbon Dioxide 27 Anion Gap 10 BUN 24.0 H Creatinine 1.0 Est GFR (CKD-EPI)AfAm 59.91 Est GFR (CKD-EPI)NonAf 51.69 POC Glucometer 222 180 Random Glucose 163 H Calcium 8.9 Total Bilirubin 0.8 AST 39 H ALT 68 H Alkaline Phosphatase 108 Creatine Kinase Troponin I 0.10 H Total Protein 7.0 Albumin 3.1 L TSH 0.24 L Free T4 1.57 H 05/09/19 05/10/19 05/10/19 21:09 06:00 06:21 Sodium 133 L Potassium 4.6 Chloride 98 Carbon Dioxide 28 Anion Gap 6 L BUN 25.4 H Creatinine 1.2 Est GFR (CKD-EPI)AfAm 48.06 Est GFR (CKD-EPI)NonAf 41.47 POC Glucometer 136 186 Random Glucose 185 H Calcium 8.7 Total Bilirubin 0.7 AST 23 ALT 49 Alkaline Phosphatase 96 Creatine Kinase 51 Troponin I 0.08 H Total Protein 6.2 L Albumin 2.7 L TSH Free T4 S 1s2 RRR Lungs clear Abd -soft, obese, Tender generalized Edema+ PLAN LFT trending down GI eval noted-- MRCP ordered continue Vancomycin - last day today -- will dc cardiac enzymes flat trend- demand ischemi urine cultures negative CT head negative Problem List - Problems (1) Elevated troponin Code(s): R79.89 - OTHER SPECIFIED ABNORMAL FINDINGS OF BLOOD CHEMISTRY (2) HAROLDO (acute kidney injury) Code(s): N17.9 - ACUTE KIDNEY FAILURE, UNSPECIFIED (3) Acute metabolic encephalopathy Code(s): G93.41 - METABOLIC ENCEPHALOPATHY (4) Anemia Code(s): D64.9 - ANEMIA, UNSPECIFIED (5) COPD (chronic obstructive pulmonary disease) Code(s): J44.9 - CHRONIC OBSTRUCTIVE PULMONARY DISEASE, UNSPECIFIED Qualifiers: COPD type: unspecified COPD Qualified Code(s): J44.9 - Chronic obstructive pulmonary disease, unspecified (6) Diabetes Code(s): E11.9 - TYPE 2 DIABETES MELLITUS WITHOUT COMPLICATIONS Qualifiers: Diabetes mellitus type: type 2 (7) Diabetic ulcer of toe associated with diabetes mellitus due to underlying condition Code(s): E08.621 - DIABETES MELLITUS DUE TO UNDERLYING CONDITION W FOOT ULCER; L97.509 - NON-PRESSURE CHRONIC ULCER OTH PRT UNSP FOOT W UNSP SEVERITY Qualifiers: Laterality: left Non-pressure ulcer stage: unspecified non-pressure ulcer stage Qualified Code(s): E08.621 - Diabetes mellitus due to underlying condition with foot ulcer; L97.529 - Non-pressure chronic ulcer of other part of left foot with unspecified severity
[2019-05-10] MEDS: NYSTATIN 100,000 UNIT/GM TOPICAL CREAM 15 GM TUBE TP SCH ×2 (13:57→18:26)
[2019-05-10] MEDS: ATORVASTATIN CA 40 MG TABLET (FP) PO SCH (21:26)
[2019-05-10] MEDS: INSULIN (LEVEMIR) 100 UNITS/ML UNITS SQ SCH (21:28)
[2019-05-10] MEDS: SENNOSIDES 8.6MG TABLET (FP) PO SCH (21:28)
[2019-05-11] MEDS: NYSTATIN 100,000 UNIT/GM TOPICAL CREAM 15 GM TUBE TP SCH ×4 (00:20→18:45)
[2019-05-11] MEDS: LEVOTHYROXINE NA 125 MCG TABLET (FP) PO SCH (06:05)
[2019-05-11] MEDS: INSULIN SLIDING SCALE (NOVOLOG) 1 VIAL SQ SCH ×3 (06:05→18:43)
[2019-05-11] MEDS: GABAPENTIN 300 MG CAPSULE (FP) PO SCH ×3 (06:05→22:10)
--- NOTE | 2019-05-11 07:47 | PN ---
Progress Note, Physician History of Present Illness: GI FOLLOW UP NOTE Patient examined and case discussed with Dr Pickering Patient had MRCP performed yesterday, official read pending. Patient denies nausea, vomiting, abdominal pain, diarrhea, constipation, rectal bleeding, or melena. - Current Medication List Current Medications: Active Medications Acetaminophen (Tylenol -) 650 mg PO Q6H PRN PRN Reason: PAIN LEVEL 1-5 Atorvastatin Calcium (Lipitor -) 40 mg PO HS [facility] Last Admin: 05/10/19 21:26 Dose: 40 mg Carvedilol (Coreg -) 6.25 mg PO BID [facility] Last Admin: 05/10/19 21:26 Dose: 6.25 mg Clopidogrel Bisulfate (Plavix -) 75 mg PO DAILY [facility] Last Admin: 05/10/19 10:33 Dose: 75 mg Ezetimibe (Zetia -) 10 mg PO DAILY [facility] Last Admin: 05/10/19 10:33 Dose: 10 mg Furosemide (Lasix -) 40 mg PO DAILY [facility] Last Admin: 05/10/19 10:33 Dose: 40 mg Gabapentin (Neurontin -) 600 mg PO TID [facility] Last Admin: 05/11/19 06:05 Dose: 600 mg Insulin Aspart (Novolog Vial Sliding Scale -) [facility]; Protocol Last Admin: 05/11/19 06:05 Dose: 8 units Insulin Detemir (Levemir Vial) 35 units SQ [facility] Last Admin: 05/10/19 21:28 Dose: 35 units Levothyroxine Sodium (Synthroid -) 125 mcg PO DAILY@0700 [facility] Last Admin: 05/11/19 06:05 Dose: 125 mcg Non-Formulary Medication (Vancomycin Hcl) 1 gm IV DAILY [facility] Stop: 05/10/19 23:59 Nystatin (Mycostatin Cream -) 1 applic TP Q6HPO [facility] Last Admin: 05/11/19 06:07 Dose: 1 applic Pantoprazole Sodium (Protonix -) 40 mg PO DAILY [facility] Last Admin: 05/10/19 10:33 Dose: 40 mg Polyethylene Glycol (Miralax (For Daily Use) -) 17 gm PO BID [facility] Last Admin: 05/10/19 21:40 Dose: Not Given Ramipril (Altace -) 2.5 mg PO DAILY [facility] Last Admin: 05/10/19 10:33 Dose: 2.5 mg Ranolazine (Ranexa -) 500 mg PO BID [facility] Last Admin: 05/10/19 21:28 Dose: 500 mg Senna (Senna -) 2 tab PO HS [facility] Last Admin: 05/10/19 21:28 Dose: 2 tab Sertraline HCl (Zoloft -) 25 mg PO DAILY [facility] Last Admin: 05/10/19 10:33 Dose: 25 mg - Objective Vital Signs: Vital Signs Temperature 99 F 05/11/19 05:59 Pulse Rate 52 L 05/11/19 02:00 Respiratory Rate 18 05/11/19 05:59 Blood Pressure 104/59 L 05/11/19 05:59 O2 Sat by Pulse Oximetry (%) 97 05/10/19 20:30 Constitutional: Yes: No Distress, Calm Eyes: Yes: Conjunctiva Clear HENT: Yes: Atraumatic Cardiovascular: Yes: Regular Rate and Rhythm Respiratory: Yes: Regular, CTA Bilaterally Gastrointestinal: Yes: Normal Bowel Sounds, Soft Genitourinary: Yes: [place] Present Neurological: Yes: Alert Psychiatric: Yes: Alert Labs: CBC, BMP 05/09/19 06:20 05/10/19 06:00 Problem List - Problems (1) Abdominal pain Assessment/Plan: >ABdominal MRCP performed, official results pending >Abdomen/Pelvic CT scan shows probably cholelithiasis without CT evidence of acute cholecystitis, mild nonspecific CBD dilatation 0.8cm Code(s): R10.9 - UNSPECIFIED ABDOMINAL PAIN
[2019-05-11] MEDS: POLYETHYLENE GLYCOL 3350 119 GM BTL PO SCH ×2 (09:52→22:13)
[2019-05-11] MEDS: RAMIPRIL 2.5 MG CAPSULE (FP) PO SCH (09:52)
[2019-05-11] MEDS: FUROSEMIDE 40 MG TABLET (FP) PO SCH (09:52)
[2019-05-11] MEDS: CARVEDILOL 6.25 MG TABLET (FP) PO SCH ×2 (09:52→22:13)
[2019-05-11] MEDS: SERTRALINE HCL 25 MG TABLET (FP) PO SCH (09:53)
[2019-05-11] MEDS: CLOPIDOGREL BISULFATE 75 MG TABLET (FP) PO SCH (09:53)
[2019-05-11] MEDS: EZETIMIBE 10 MG TABLET (FP) PO SCH (09:53)
[2019-05-11] MEDS: PANTOPRAZOLE 40 MG TABLET (FP) PO SCH (09:53)
[2019-05-11] MEDS: RANOLAZINE E.R. 500 MG TABLET (FP) PO SCH ×2 (09:53→22:14)
--- NOTE | 2019-05-11 10:25 | PN ---
Progress Note, Physician History of Present Illness: Denies abd pain, nausea, emesis, diarrhea. - Current Medication List Current Medications: Active Medications Acetaminophen (Tylenol -) 650 mg PO Q6H PRN PRN Reason: PAIN LEVEL 1-5 Atorvastatin Calcium (Lipitor -) 40 mg PO HS [facility] Last Admin: 05/10/19 21:26 Dose: 40 mg Carvedilol (Coreg -) 6.25 mg PO BID [facility] Last Admin: 05/11/19 09:52 Dose: 6.25 mg Clopidogrel Bisulfate (Plavix -) 75 mg PO DAILY [facility] Last Admin: 05/11/19 09:53 Dose: 75 mg Ezetimibe (Zetia -) 10 mg PO DAILY [facility] Last Admin: 05/11/19 09:53 Dose: 10 mg Furosemide (Lasix -) 40 mg PO DAILY [facility] Last Admin: 05/11/19 09:52 Dose: 40 mg Gabapentin (Neurontin -) 600 mg PO TID [facility] Last Admin: 05/11/19 06:05 Dose: 600 mg Insulin Aspart ([facility] Vial Sliding Scale -) [facility]; [facility] Last Admin: 05/11/19 06:05 Dose: 8 units Insulin Detemir (Levemir Vial) 35 units SQ [facility] Last Admin: 05/10/19 21:28 Dose: 35 units Levothyroxine Sodium (Synthroid -) 125 mcg PO DAILY@0700 [facility] Last Admin: 05/11/19 06:05 Dose: 125 mcg Non-Formulary Medication (Vancomycin Hcl) 1 gm IV DAILY [facility] Stop: 05/10/19 23:59 Nystatin (Mycostatin Cream -) 1 applic TP Q6HPO [facility] Last Admin: 05/11/19 06:07 Dose: 1 applic Pantoprazole Sodium (Protonix -) 40 mg PO DAILY [facility] Last Admin: 05/11/19 09:53 Dose: 40 mg Polyethylene Glycol (Miralax (For Daily Use) -) 17 gm PO BID [facility] Last Admin: 05/11/19 09:52 Dose: 17 gm Ramipril (Altace -) 2.5 mg PO DAILY [facility] Last Admin: 05/11/19 09:52 Dose: 2.5 mg Ranolazine (Ranexa -) 500 mg PO BID [facility] Last Admin: 05/11/19 09:53 Dose: 500 mg Senna (Senna -) 2 tab PO [facility] Last Admin: 05/10/19 21:28 Dose: 2 tab Sertraline HCl (Zoloft -) 25 mg PO DAILY [facility] Last Admin: 05/11/19 09:53 Dose: 25 mg - Objective Vital Signs: Vital Signs Temperature 97.9 F 05/11/19 09:28 Pulse Rate 61 05/11/19 09:28 Respiratory Rate 18 05/11/19 09:28 Blood Pressure 106/40 L 05/11/19 09:28 O2 Sat by Pulse Oximetry (%) 97 05/10/19 20:30 Constitutional: Yes: No Distress, Calm Neck: Yes: Supple Cardiovascular: Yes: Regular Rate and Rhythm Respiratory: Yes: Regular, CTA Bilaterally Gastrointestinal: Yes: Normal Bowel Sounds, Soft Edema: No Labs: CBC, BMP 05/09/19 06:20 05/10/19 06:00 Problem List - Problems (1) Abdominal pain Code(s): R10.9 - UNSPECIFIED ABDOMINAL PAIN (2) Elevated troponin Code(s): R79.89 - OTHER SPECIFIED ABNORMAL FINDINGS OF BLOOD CHEMISTRY (3) COPD (chronic obstructive pulmonary disease) Code(s): J44.9 - CHRONIC OBSTRUCTIVE PULMONARY DISEASE, UNSPECIFIED Qualifiers: COPD type: unspecified COPD Qualified Code(s): J44.9 - Chronic obstructive pulmonary disease, unspecified (4) Diabetes Code(s): E11.9 - TYPE 2 DIABETES MELLITUS WITHOUT COMPLICATIONS Qualifiers: Diabetes mellitus type: type 2 (5) Diabetic ulcer of toe associated with diabetes mellitus due to underlying condition Code(s): E08.621 - DIABETES MELLITUS DUE TO UNDERLYING CONDITION W FOOT ULCER; L97.509 - NON-PRESSURE CHRONIC ULCER OTH PRT UNSP FOOT W UNSP SEVERITY Qualifiers: Laterality: left Non-pressure ulcer stage: unspecified non-pressure ulcer stage Qualified Code(s): E08.621 - Diabetes mellitus due to underlying condition with foot ulcer; L97.529 - Non-pressure chronic ulcer of other part of left foot with unspecified severity (6) PAD (peripheral artery disease) Code(s): I73.9 - PERIPHERAL VASCULAR DISEASE, UNSPECIFIED (7) CAD (coronary artery disease) Code(s): I25.10 - ATHSCL HEART DISEASE OF [place] CORONARY ARTERY W/O ANG PCTRS Qualifiers: Coronary Disease-Associated Artery/Lesion type: [place] artery [place] vs. transplanted heart: [place] heart Associated angina: with unstable angina Qualified Code(s): I25.110 - Atherosclerotic heart disease of [place] coronary artery with unstable angina pectoris (8) CKD (chronic kidney disease) stage 3, GFR 30-59 ml/min Code(s): N18.3 - CHRONIC KIDNEY DISEASE, STAGE 3 (MODERATE) (9) Chronic combined systolic and diastolic heart failure Code(s): I50.42 - CHRONIC COMBINED SYSTOLIC AND DIASTOLIC HRT FAIL (10) Hyperlipidemia Code(s): E78.5 - HYPERLIPIDEMIA, UNSPECIFIED Qualifiers: Hyperlipidemia type: pure hypercholesterolemia Qualified Code(s): E78.00 - Pure hypercholesterolemia, unspecified; E78.0 - Pure hypercholesterolemia (11) Hypertensive cardiomyopathy Code(s): I11.9 - HYPERTENSIVE HEART DISEASE WITHOUT HEART FAILURE; I43 - CARDIOMYOPATHY IN DISEASES CLASSIFIED ELSEWHERE Qualifiers: Heart failure presence: with heart failure Qualified Code(s): I11.0 - Hypertensive heart disease with heart failure; I43 - Cardiomyopathy in diseases classified elsewhere (12) Hypothyroidism Code(s): E03.9 - HYPOTHYROIDISM, UNSPECIFIED Qualifiers: Hypothyroidism type: unspecified Qualified Code(s): E03.9 - Hypothyroidism , unspecified (13) S/P CABG (coronary artery bypass graft) Code(s): Z95.1 - PRESENCE OF AORTOCORONARY BYPASS GRAFT (14) Type 2 diabetes mellitus Code(s): E11.9 - TYPE 2 DIABETES MELLITUS WITHOUT COMPLICATIONS Qualifiers: Diabetes mellitus nursing home insulin use: unspecified long term care pharmacist insulin use status Diabetes mellitus complication status: with neurologic complications Diabetes mellitus complication detail: with polyneuropathy Qualified Code(s): E11.42 - Type 2 diabetes mellitus with diabetic polyneuropathy Assessment/Plan Echocardiography: March 2019 Moderate decreased LVEF 35% with apicoseptal AK , restrictive filling pattern with markedly elevated LA pressure, mod TR, mild pulm HTN RVSP 45 mmHg 1. Abdominal pain, abnormal LFT -> cholelithiasis and mild nonspecific CBD dilatation 0.8cm w/o CT evidence of acute cholecystitis r/o choledocholithiasis 2. LV systolic dysfunction w/ history of failure 3. Pulmonary HTN 4. Insulin-dependent T2DM 5. CAD s/p IN, CABG, angina pectoris 6. PAD with cellulitis and gangrene left 4th toe osteomyelitis s/p left popliteal angioplasty 7. Anemia 8. Hypothyroidism 9. Elevated troponin due to demand ischemia PLAN: 1. Completed empiric IV antibiotic coverage per urine C&S 2. Continue Carvedilol 6.25 mg BID, Lipitor 40 mg QHS, Zetia 10 mg QD, Ramipril 2.5 mg QD, Lasix 40 qd and Ranexa 500 mg BID as tolerated 3. Continue ASA 81 mg QD and Plavix 75 mg QD 4. F/u MRCP 5. GI prophylaxis 6. Troponin downtrending (peaked at 0.27)
--- NOTE | 2019-05-11 11:38 | PN ---
Progress Note (short form) - Note Progress Note: no complaints Vital Signs - 24 hr 05/10/19 05/10/19 05/10/19 14:00 18:00 20:30 Temperature 98.0 F 98.7 F Pulse Rate 59 L 64 Respiratory 20 Rate Blood Pressure 99/34 L 99/68 O2 Sat by Pulse 97 Oximetry (%) 05/10/19 05/11/19 05/11/19 21:37 02:00 05:59 Temperature 97.8 F 99 F Pulse Rate 58 L 52 L Respiratory 20 18 18 Rate Blood Pressure 101/41 L 96/39 L 104/59 L O2 Sat by Pulse Oximetry (%) 05/11/19 05/11/19 09:00 09:28 Temperature 97.9 F Pulse Rate 61 Respiratory 18 Rate Blood Pressure 106/40 L O2 Sat by Pulse 95 Oximetry (%) Current Medications Generic Name Dose Route Start Last Admin Trade Name Freq PRN Reason Stop Dose Admin Acetaminophen 650 mg 05/08/19 22:05 Tylenol - PO Q6H PRN PAIN LEVEL 1-5 Atorvastatin Calcium 40 mg 05/09/19 22:00 05/10/19 21:26 Lipitor - PO 40 mg HS [facility] Administration Carvedilol 6.25 mg 05/09/19 10:00 05/11/19 09:52 Coreg - PO 6.25 mg BID [facility] Administration Clopidogrel Bisulfate 75 mg 05/09/19 10:00 05/11/19 09:53 Plavix - PO 75 mg DAILY [facility] Administration Ezetimibe 10 mg 05/09/19 10:00 05/11/19 09:53 Zetia - PO 10 mg DAILY [facility] Administration Furosemide 40 mg 05/09/19 10:00 05/11/19 09:52 Lasix - PO 40 mg DAILY [facility] Administration Gabapentin 600 mg 05/09/19 06:00 05/11/19 06:05 Neurontin - PO 600 mg TID [facility] Administration Insulin Aspart 1 vial 05/09/19 07:00 05/11/19 06:05 Novolog Vial Sliding Scale - SQ 8 units TIDAC [facility] Administration Protocol Insulin Detemir 35 units 05/09/19 22:00 05/10/19 21:28 Levemir Vial SQ 35 units HS [facility] Administration Levothyroxine Sodium 125 mcg 05/09/19 07:00 05/11/19 06:05 Synthroid - PO 125 mcg DAILY@0700 [facility] Administration Non-Formulary Medication 1 gm 05/10/19 10:00 Vancomycin Hcl IV 05/10/19 23:59 DAILY [facility] Nystatin 1 applic 05/10/19 12:00 05/11/19 06:07 Mycostatin Cream - TP 1 applic Q6HPO [facility] Administration Pantoprazole Sodium 40 mg 05/09/19 10:00 05/11/19 09:53 Protonix - PO 40 mg DAILY [facility] Administration Polyethylene Glycol 17 gm 05/09/19 10:00 05/11/19 09:52 Miralax (For Daily Use) - PO 17 gm BID [facility] Administration Ramipril 2.5 mg 05/09/19 10:00 05/11/19 09:52 Altace - PO 2.5 mg DAILY [facility] Administration Ranolazine 500 mg 05/09/19 10:00 05/11/19 09:53 Ranexa - PO 500 mg BID [facility] Administration Senna 2 tab 05/09/19 22:00 05/10/19 21:28 Senna - PO 2 tab HS [facility] Administration Sertraline HCl 25 mg 05/09/19 10:00 05/11/19 09:53 Zoloft - PO 25 mg DAILY [facility] Administration Laboratory Results - last 24 hr 05/10/19 05/10/19 05/11/19 16:55 21:13 05:53 POC Glucometer 337 259 340 S 1s2 RRR Lungs clear Abd -soft, obese, Tender generalized Edema+ PLAN GI eval noted-- MRCP done-- results pending pt clinically better if MRCP unremarkable, will dc pt to [place] urine cultures negative CT head negative Problem List - Problems (1) Elevated troponin Code(s): R79.89 - OTHER SPECIFIED ABNORMAL FINDINGS OF BLOOD CHEMISTRY (2) HAROLDO (acute kidney injury) Code(s): N17.9 - ACUTE KIDNEY FAILURE, UNSPECIFIED (3) Acute metabolic encephalopathy Code(s): G93.41 - METABOLIC ENCEPHALOPATHY (4) Anemia Code(s): D64.9 - ANEMIA, UNSPECIFIED (5) COPD (chronic obstructive pulmonary disease) Code(s): J44.9 - CHRONIC OBSTRUCTIVE PULMONARY DISEASE, UNSPECIFIED Qualifiers: COPD type: unspecified COPD Qualified Code(s): J44.9 - Chronic obstructive pulmonary disease, unspecified (6) Diabetes Code(s): E11.9 - TYPE 2 DIABETES MELLITUS WITHOUT COMPLICATIONS Qualifiers: Diabetes mellitus type: type 2 (7) Diabetic ulcer of toe associated with diabetes mellitus due to underlying condition Code(s): E08.621 - DIABETES MELLITUS DUE TO UNDERLYING CONDITION W FOOT ULCER; L97.509 - NON-PRESSURE CHRONIC ULCER OTH PRT UNSP FOOT W UNSP SEVERITY Qualifiers: Laterality: left Non-pressure ulcer stage: unspecified non-pressure ulcer stage Qualified Code(s): E08.621 - Diabetes mellitus due to underlying condition with foot ulcer; L97.529 - Non-pressure chronic ulcer of other part of left foot with unspecified severity
[2019-05-11] MEDS ORDERED: INSULIN (NOVOLOG) ASPART 100 UNITS/ML 10ML VIAL ONE (13:04)
[2019-05-11] MEDS: INSULIN (LEVEMIR) 100 UNITS/ML UNITS SQ SCH (22:11)
[2019-05-11] MEDS: ATORVASTATIN CA 40 MG TABLET (FP) PO SCH (22:12)
[2019-05-11] MEDS: SENNOSIDES 8.6MG TABLET (FP) PO SCH (22:12)
[2019-05-12] MEDS: NYSTATIN 100,000 UNIT/GM TOPICAL CREAM 15 GM TUBE TP SCH ×3 (00:05→12:52)
[2019-05-12] MEDS: GABAPENTIN 300 MG CAPSULE (FP) PO SCH ×2 (06:16→14:28)
[2019-05-12] MEDS: INSULIN SLIDING SCALE (NOVOLOG) 1 VIAL SQ SCH ×2 (06:17→12:52)
[2019-05-12] MEDS: LEVOTHYROXINE NA 125 MCG TABLET (FP) PO SCH (06:19)
--- NOTE | 2019-05-12 09:17 | PN ---
Progress Note, Physician History of Present Illness: Denies abd pain, nausea, emesis, diarrhea. - Current Medication List Current Medications: Active Medications Acetaminophen (Tylenol -) 650 mg PO Q6H PRN PRN Reason: PAIN LEVEL 1-5 Atorvastatin Calcium (Lipitor -) 40 mg PO HS [facility] Last Admin: 05/11/19 22:12 Dose: 40 mg Carvedilol (Coreg -) 6.25 mg PO BID [facility] Last Admin: 05/11/19 22:13 Dose: 6.25 mg Clopidogrel Bisulfate (Plavix -) 75 mg PO DAILY [facility] Last Admin: 05/11/19 09:53 Dose: 75 mg Ezetimibe (Zetia -) 10 mg PO DAILY [facility] Last Admin: 05/11/19 09:53 Dose: 10 mg Furosemide (Lasix -) 40 mg PO DAILY [facility] Last Admin: 05/11/19 09:52 Dose: 40 mg Gabapentin (Neurontin -) 600 mg PO TID [facility] Last Admin: 05/12/19 06:16 Dose: 600 mg Insulin Aspart (Novolog Vial Sliding Scale -) 1 vial SQ TIDAC [facility]; Protocol Last Admin: 05/12/19 06:17 Dose: 2 units Insulin Detemir (Levemir Vial) 35 units SQ [facility] Last Admin: 05/11/19 22:11 Dose: 35 units Levothyroxine Sodium (Synthroid -) 125 mcg PO DAILY@0700 [facility] Last Admin: 05/12/19 06:19 Dose: 125 mcg Nystatin (Mycostatin Cream -) 1 applic TP Q6HPO [facility] Last Admin: 05/12/19 06:16 Dose: 1 applic Pantoprazole Sodium (Protonix -) 40 mg PO DAILY [facility] Last Admin: 05/11/19 09:53 Dose: 40 mg Polyethylene Glycol (Miralax (For Daily Use) -) 17 gm PO BID [facility] Last Admin: 05/11/19 22:13 Dose: 17 gm Ramipril (Altace -) 2.5 mg PO DAILY [facility] Last Admin: 05/11/19 09:52 Dose: 2.5 mg Ranolazine (Ranexa -) 500 mg PO BID [facility] Last Admin: 05/11/19 22:14 Dose: 500 mg Senna (Senna -) 2 tab PO [facility] Last Admin: 05/11/19 22:12 Dose: 2 tab Sertraline HCl (Zoloft -) 25 mg PO DAILY [facility] Last Admin: 05/11/19 09:53 Dose: 25 mg - Objective Vital Signs: Vital Signs Temperature 98.2 F 05/12/19 06:00 Pulse Rate 63 05/12/19 06:00 Respiratory Rate 20 05/12/19 06:00 Blood Pressure 124/53 L 05/12/19 06:00 O2 Sat by Pulse Oximetry (%) 95 05/11/19 21:00 Constitutional: Yes: No Distress, Calm Neck: Yes: Supple Cardiovascular: Yes: Regular Rate and Rhythm Respiratory: Yes: Regular, CTA Bilaterally Gastrointestinal: Yes: Normal Bowel Sounds, Soft Edema: No Labs: CBC, BMP 05/09/19 06:20 05/10/19 06:00 Problem List - Problems (1) Abdominal pain Code(s): R10.9 - UNSPECIFIED ABDOMINAL PAIN (2) Elevated troponin Code(s): R79.89 - OTHER SPECIFIED ABNORMAL FINDINGS OF BLOOD CHEMISTRY (3) COPD (chronic obstructive pulmonary disease) Code(s): J44.9 - CHRONIC OBSTRUCTIVE PULMONARY DISEASE, UNSPECIFIED Qualifiers: COPD type: unspecified COPD Qualified Code(s): J44.9 - Chronic obstructive pulmonary disease, unspecified (4) Diabetes Code(s): E11.9 - TYPE 2 DIABETES MELLITUS WITHOUT COMPLICATIONS Qualifiers: Diabetes mellitus type: type 2 (5) Diabetic ulcer of toe associated with diabetes mellitus due to underlying condition Code(s): E08.621 - DIABETES MELLITUS DUE TO UNDERLYING CONDITION W FOOT ULCER; L97.509 - NON-PRESSURE CHRONIC ULCER OTH PRT UNSP FOOT W UNSP SEVERITY Qualifiers: Laterality: left Non-pressure ulcer stage: unspecified non-pressure ulcer stage Qualified Code(s): E08.621 - Diabetes mellitus due to underlying condition with foot ulcer; L97.529 - Non-pressure chronic ulcer of other part of left foot with unspecified severity (6) PAD (peripheral artery disease) Code(s): I73.9 - PERIPHERAL VASCULAR DISEASE, UNSPECIFIED (7) CAD (coronary artery disease) Code(s): I25.10 - ATHSCL HEART DISEASE OF LIME CORONARY ARTERY W/O ANG PCTRS Qualifiers: Coronary Disease-Associated Artery/Lesion type: iroquois artery [place] vs. transplanted heart: iroquois heart Associated angina: with unstable angina Qualified Code(s): I25.110 - Atherosclerotic heart disease of iroquois coronary artery with unstable angina pectoris (8) CKD (chronic kidney disease) stage 3, GFR 30-59 ml/min Code(s): N18.3 - CHRONIC KIDNEY DISEASE, STAGE 3 (MODERATE) (9) Chronic combined systolic and diastolic heart failure Code(s): I50.42 - CHRONIC COMBINED SYSTOLIC AND DIASTOLIC HRT FAIL (10) Hyperlipidemia Code(s): E78.5 - HYPERLIPIDEMIA, UNSPECIFIED Qualifiers: Hyperlipidemia type: pure hypercholesterolemia Qualified Code(s): E78.00 - Pure hypercholesterolemia, unspecified; E78.0 - Pure hypercholesterolemia (11) Hypertensive cardiomyopathy Code(s): I11.9 - HYPERTENSIVE HEART DISEASE WITHOUT HEART FAILURE; I43 - CARDIOMYOPATHY IN DISEASES CLASSIFIED ELSEWHERE Qualifiers: Heart failure presence: with heart failure Qualified Code(s): I11.0 - Hypertensive heart disease with heart failure; I43 - Cardiomyopathy in diseases classified elsewhere (12) Hypothyroidism Code(s): E03.9 - HYPOTHYROIDISM, UNSPECIFIED Qualifiers: Hypothyroidism type: unspecified Qualified Code(s): E03.9 - Hypothyroidism , unspecified (13) S/P CABG (coronary artery bypass graft) Code(s): Z95.1 - PRESENCE OF AORTOCORONARY BYPASS GRAFT (14) Type 2 diabetes mellitus Code(s): E11.9 - TYPE 2 DIABETES MELLITUS WITHOUT COMPLICATIONS Qualifiers: Diabetes mellitus extermination inspector insulin use: unspecified halfway insulin use status Diabetes mellitus complication status: with neurologic complications Diabetes mellitus complication detail: with polyneuropathy Qualified Code(s): E11.42 - Type 2 diabetes mellitus with diabetic polyneuropathy Assessment/Plan Echocardiography: March 2019 Moderate decreased LVEF 35% with apicoseptal AK , restrictive filling pattern with markedly elevated LA pressure, mod TR, mild pulm HTN RVSP 45 mmHg MRCP: May 10, 2019 No choledocholithiasis or dilated biluary ducts, + suspicion for intraductal papillary mucinous tumor 1. Abdominal pain, abnormal LFT -> cholelithiasis w/o CT evidence of acute cholecystitis or choledocholithiasis, suspect IPMN 2. LV systolic dysfunction w/ history of failure 3. Pulmonary HTN 4. Insulin-dependent T2DM 5. CAD s/p TN, CABG, angina pectoris 6. PAD with cellulitis and gangrene left 4th toe osteomyelitis s/p left popliteal angioplasty 7. Anemia 8. Hypothyroidism 9. Elevated troponin due to demand ischemia PLAN: 1. Completed empiric IV antibiotic coverage per urine C&S 2. Continue Carvedilol 6.25 mg BID, Lipitor 40 mg QHS, Zetia 10 mg QD, Ramipril 2.5 mg QD, Lasix 40 qd and Ranexa 500 mg BID as tolerated 3. Continue ASA 81 mg QD and Plavix 75 mg QD 4. GI prophylaxis 5. Troponin downtrending (peaked at 0.27) 6. Possible EUS with FNA, check CA 19-9 levels
--- NOTE | 2019-05-12 09:41 | DS ---
Physical Examination Vital Signs: Vital Signs Temperature 98.2 F 05/12/19 06:00 Pulse Rate 63 05/12/19 06:00 Respiratory Rate 20 05/12/19 06:00 Blood Pressure 124/53 L 05/12/19 06:00 O2 Sat by Pulse Oximetry (%) 95 05/11/19 21:00 Findings/Remarks: awake/ comfortable. no complains comfortable Constitutional: Yes: No Distress Eyes: Yes: Conjunctiva Clear HENT: Yes: WNL. No: Tonsillar Exudate Neck: Yes: WNL Cardiovascular: Yes: Regular Rate and Rhythm. No: Pulse Irregular Respiratory: Yes: CTA Bilaterally Gastrointestinal: Yes: Soft Edema: No Neurological: Yes: Alert Labs: CBC, BMP 05/09/19 06:20 05/10/19 06:00 Discharge Summary Problems reviewed: Yes Reason For Visit: ELEVATED TROPONN LEVEL,RETENTION OF URINE Current Active Problems Abdominal pain (Acute) Depression (Acute) Elevated troponin (Acute) Urinary retention (Acute) Hospital Course: 84 y/o Bahamian speaking woman with hx ESBL+ UTI, HTN, HLD, CHF, neuropathy, recent hospitalization for L toe osteomyelitis (discharge on 04/28/2019) arrived to ER with one week of dysuria and intermittent confusion, and gait disturbance. admitted to tele cva ruled out mri abd- -ve except Pancreatic cysts - concern of IPMNT Considering age/ comorbidities - will not persue aggressive work up. Cardiology / GI also followed Got better Stable for d/c Meds reviewed/ reconcilled. D/w Rn also Will follow in [facility] Completed abx for Osteo Condition: Stable - Instructions Referrals: Raina Hardy MD [Primary Care Provider] - Disposition: CUSTODIAL FACILITY - Home Medications Comprehensive Discharge Medication List: Ambulatory Orders Carvedilol [Coreg -] 6.25 mg PO BID 08/20/17 Levothyroxine [Synthroid -] 125 mcg PO DAILY 08/20/17 Ranolazine [Ranexa] 500 mg PO BID 08/20/17 Atorvastatin Ca [Lipitor] 40 mg PO HS #30 tablet 09/21/17 Gabapentin [Neurontin -] 600 mg PO TID 02/25/18 Clopidogrel Bisulfate [Plavix -] 75 mg PO DAILY tablet 08/24/18 Ezetimibe [Zetia -] 10 mg PO DAILY tablet 08/24/18 Acetaminophen 650 mg PO DAILY PRN MDD 1950 09/08/18 Furosemide [Lasix -] 40 mg PO DAILY 04/26/19 Ramipril 2.5 mg PO DAILY 04/26/19 Insulin (Levemir) [Levemir Vial] 35 units SQ HS units 04/28/19 Pantoprazole Sodium [Protonix -] 40 mg PO DAILY tablet.ec 04/28/19 Polyethylene Glycol 3350 [Miralax 119 gm Btl -] 17 gm PO BID bottle 04/28/19 Psyllium [Metamucil (Sugar-Free) -] 5.85 gm PO BID packet 04/28/19 Lactobacillus Acidophilus [Bacid -] 1 each PO BID 05/08/19 Oseltamivir Phosphate [Tamiflu] 75 mg PO DAILY 05/08/19 Sennosides [Senna -] 2 tab PO HS 05/08/19 Sertraline HCl [Zoloft] 25 mg PO DAILY 05/08/19
[2019-05-12] MEDS: CLOPIDOGREL BISULFATE 75 MG TABLET (FP) PO SCH (10:50)
[2019-05-12] MEDS: PANTOPRAZOLE 40 MG TABLET (FP) PO SCH (10:50)
[2019-05-12] MEDS: RAMIPRIL 2.5 MG CAPSULE (FP) PO SCH (10:50)
[2019-05-12] MEDS: FUROSEMIDE 40 MG TABLET (FP) PO SCH (10:50)
[2019-05-12] MEDS: CARVEDILOL 6.25 MG TABLET (FP) PO SCH (10:51)
[2019-05-12] MEDS: EZETIMIBE 10 MG TABLET (FP) PO SCH (10:51)
[2019-05-12] MEDS: POLYETHYLENE GLYCOL 3350 119 GM BTL PO SCH (10:52)
[2019-05-12] MEDS: SERTRALINE HCL 25 MG TABLET (FP) PO SCH (10:52)
[2019-05-12] MEDS: RANOLAZINE E.R. 500 MG TABLET (FP) PO SCH (10:52)
[2019-05-12] MEDS ORDERED: INSULIN (NOVOLOG) ASPART 100 UNITS/ML 10ML VIAL ONE (12:36)
[2019-05-12 14:06] VITALS: BP 135/54; PULSE 61; TEMP 97.8
== END 2019-05-12 14:58 | DRG 444 ==
LOC: JER 11:16 → JERBED 18:00 → OBSVTOIN 22:12 → J4W 05-09 14:57
PROVIDERS: ADMIT Internal Medicine; ATTEND Internal Medicine
DX: K80.20 Calculus of gallbladder without cholecystitis without obstruction (principal); G93.41 Metabolic encephalopathy; N17.9 Acute kidney failure, unspecified; L97.528 Non-pressure chronic ulcer of other part of left foot with other specified severity; E11.52 Type 2 diabetes mellitus with diabetic peripheral angiopathy with gangrene; M86.9 Osteomyelitis, unspecified; I24.8 Other forms of acute ischemic heart disease; I50.42 Chronic combined systolic (congestive) and diastolic (congestive) heart failure; J90 Pleural effusion, not elsewhere classified; I10 Essential (primary) hypertension; E78.5 Hyperlipidemia, unspecified; I25.10 Atherosclerotic heart disease of native coronary artery without angina pectoris; I25.2 Old myocardial infarction; K21.9 Gastro-esophageal reflux disease without esophagitis; E03.9 Hypothyroidism, unspecified; F32.9 Major depressive disorder, single episode, unspecified; R79.89 Other specified abnormal findings of blood chemistry; R33.9 Retention of urine, unspecified; E11.42 Type 2 diabetes mellitus with diabetic polyneuropathy; R10.31 Right lower quadrant pain; I11.0 Hypertensive heart disease with heart failure; K59.09 Other constipation; J44.9 Chronic obstructive pulmonary disease, unspecified; D64.9 Anemia, unspecified; E66.9 Obesity, unspecified; Z68.28 Body mass index [BMI] 28.0-28.9, adult; R94.31 Abnormal electrocardiogram [ECG] [EKG]; E11.621 Type 2 diabetes mellitus with foot ulcer; Z87.11 Personal history of peptic ulcer disease; Z95.1 Presence of aortocoronary bypass graft; Z95.5 Presence of coronary angioplasty implant and graft; I27.20 Pulmonary hypertension, unspecified; Z79.4 Long term (current) use of insulin; R26.9 Unspecified abnormalities of gait and mobility
CPT/HCPCS: 36415; 70450-TC; 71045-TC-FY; 72125-TC; 74177-TC; 74181-TC; 80053; 81003; 82550; 82553; 82962; 83036; 84439; 84443; 84484; 85025; 85027; 87086; 93005; 93010; 97116-GP; 97161-GP; 99285-25; G0378; Q9967

== ENCOUNTER 2019-07-06 00:43 | Inpatient (IN) | payer MEDICARE, OTHER ==
--- NOTE | 2019-07-06 02:36 | PDOC ---
History of Present Illness - General Chief Complaint: Abnormal Lab Results (Outside) Stated Complaint: ABNORMAL LABS History Source: Patient Exam Limitations: No Limitations - History of Present Illness Initial Comments: 07/06/19 07:25 84 y/o Croatian speaking woman with hx ESBL+ UTI, HTN, HLD, CHF, neuropathy, recent hospitalization for L toe osteomyelitis (discharge on 04/28/2019) presents to the emergency department with abnormal lab values from [facility]. Per the [facility] chart, her blood was collected on 07/05 that showed leukocytosis (17.6), elevated creatinine (3.10), hyperkalemia (5.9). Per the patient, who is alert and oriented to her self only, she feels pain in her suprapubic region. Unable to collect a full history from the patient due to her current condition. Past History - Past Medical History Allergies/Adverse Reactions: Allergies Allergy/AdvReac Type Severity Reaction Status Date / Time No Known Drug Allergies Allergy Verified 07/06/19 01:31 Home Medications: Ambulatory Orders Carvedilol [Coreg -] 6.25 mg PO BID 08/20/17 Levothyroxine [Synthroid -] 125 mcg PO DAILY 08/20/17 Ranolazine [Ranexa] 500 mg PO BID 08/20/17 Atorvastatin Ca [Lipitor] 40 mg PO HS #30 tablet 09/21/17 Clopidogrel Bisulfate [Plavix -] 75 mg PO DAILY tablet 08/24/18 Ezetimibe [Zetia -] 10 mg PO DAILY tablet 08/24/18 Acetaminophen 650 mg PO DAILY PRN MDD 1950 09/08/18 Furosemide [Lasix -] 40 mg PO DAILY 04/26/19 Ramipril 2.5 mg PO DAILY 04/26/19 Insulin (Levemir) [Levemir Vial] 35 units SQ HS units 04/28/19 Pantoprazole Sodium [Protonix -] 40 mg PO DAILY tablet.ec 04/28/19 Polyethylene Glycol 3350 [Miralax 119 gm Btl -] 17 gm PO BID bottle 04/28/19 Psyllium [Metamucil (Sugar-Free) -] 5.85 gm PO BID packet 04/28/19 Sennosides [Senna -] 2 tab PO HS 05/08/19 Sertraline HCl [Zoloft] 25 mg PO DAILY 12/16/19 Gabapentin [Neurontin -] 200 mg PO TID #0 tab 07/12/19 Tamsulosin HCl [Flomax -] 0.4 mg PO DAILY@0830 #30 cap.er.24h 07/12/19 Anemia: No Asthma: No Cancer: No Cardiac Disorders: Yes (NSTEMI, CAD, Stents, CABG, Angina, D-CHF) CVA: Yes COPD: No CHF: Yes DVT: No Dementia: No Diabetes: Yes GI Disorders: Yes (Duodenal and gastric Ulcers, GERD) Disorders: Yes (Urosepsis - Ecoli ESBL in urine 01/2018) HTN: Yes Hypercholesterolemia: Yes Kidney Stones: (KIDNEY DIS) Liver Disease: No Seizures: No Thyroid Disease: No - Surgical History Abdominal Surgery: No Appendectomy: No Cardiac Surgery: Yes (CABG) Cholecystectomy: No Lung Surgery: No Neurologic Surgery: No Orthopedic Surgery: Yes (Rt elbow Sx) - Immunization History Td Vaccination: Yes TDAP Vaccination: Yes Immunization Up to Date: No - Psycho Social/Smoking Cessation Hx Smoking Status: No Smoking History: Never smoked Have you smoked in the past 12 months: No Number of Cigarettes Smoked Daily: 0 Hx Alcohol Use: No Drug/Substance Use Hx: No Substance Use Type: None Hx Substance Use Treatment: No Review of Systems - Review of Systems Able to Perform ROS?: No (dementia) *Physical Exam - Vital Signs Last Vital Signs Temp Pulse Resp BP Pulse Ox 97.8 F 79 18 139/62 98 07/06/19 00:43 07/06/19 00:43 07/06/19 00:43 07/06/19 00:43 07/06/19 00:43 - Physical Exam General Appearance: Yes: Nourished, Appropriately Dressed. No: Apparent Distress, Intoxicated HEENT: positive: EOMI, YANETH, Normal Voice, Symmetrical, Pharynx Normal, Hearing Grossly Normal. negative: Pale Conjunctivae, Scleral Icterus (R), Scleral Icterus (L), Muffled/Hoarse voice, Pharyngeal Erythema, Tonsillar Exudate, Tonsillar Erythema, Excessive drooling Neck: positive: Trachea midline, Supple. negative: Tender, Lymphadenopathy (R) , Lymphadenopathy (L), Tender lateral, Tender midline Respiratory/Chest: positive: Lungs Clear, Normal Breath Sounds. negative: Chest Tender, Respiratory Distress, Accessory Muscle Use, Crackles, Rales, Rhonchi, Stridor, Wheezing Cardiovascular: positive: Regular Rhythm, Regular Rate, S1, S2. negative: Systolic Murmur Gastrointestinal/Abdominal: positive: Normal Bowel Sounds, Tender (suprapubic region), Flat, Soft Lymphatic: negative: Adenopathy Musculoskeletal: positive: Normal Inspection. negative: CVA Tenderness, Vertebral Tenderness Extremity: positive: Normal Capillary Refill, Normal Inspection, Normal Range of Motion. negative: Tender Integumentary: positive: Normal Color, Dry, Warm Neurologic: positive: Alert ED Treatment Course - LABORATORY CBC & Chemistry Diagram: 07/09/19 08:35 07/09/19 08:35 Medical Decision Making - Medical Decision Making 84 y/o Croatian speaking woman with hx ESBL+ UTI, HTN, HLD, CHF, neuropathy, recent hospitalization for L toe osteomyelitis (discharge on 04/28/2019) presents to the emergency department with abnormal lab values from [facility]. Initial vitals; Initial Vital Signs Temp Pulse Resp BP Pulse Ox 97.8 F 79 18 139/62 98 07/06/19 00:43 07/06/19 00:43 07/06/19 00:43 07/06/19 00:43 07/06/19 00:43 Work up: Laboratory Tests 07/06/19 07/06/19 07/06/19 03:07 03:07 03:07 WBC 18.3 H RBC 3.71 Hgb 11.0 Hct 33.5 D MCV 90.2 MCH 29.6 MCHC 32.8 RDW 14.7 Plt Count 325 MPV 8.0 Absolute Neuts (auto) 13.8 H Neutrophils % 75.6 Neutrophils % (Manual) 67.3 Band Neutrophils % 8.9 Lymphocytes % 15.2 Lymphocytes % (Manual) 5.9 L D Monocytes % 6.8 Monocytes % (Manual) 5 Eosinophils % 2.0 Eosinophils % (Manual) 4.0 Basophils % 0.4 Basophils % (Manual) 0.0 Myelocytes % (Man) 2 D Promyelocytes % (Man) 0 Blast Cells % (Manual) 0 Nucleated RBC % 0 Metamyelocytes 3 H D Hypochromia 0 Platelet Estimate Normal Polychromasia 1+ Poikilocytosis 1+ Anisocytosis 2+ Microcytosis 1+ Macrocytosis 0 Spherocytes 1+ Ovalocytes 1+ [place] Cells 1+ Schistocytes 1+ Sodium Cancelled Potassium Cancelled Chloride Cancelled Carbon Dioxide Cancelled Anion Gap Cancelled BUN Cancelled Creatinine Cancelled Est GFR (CKD-EPI)AfAm Cancelled Est GFR (CKD-EPI)NonAf Cancelled Random Glucose Cancelled Calcium Cancelled Magnesium Cancelled Total Bilirubin Cancelled AST Cancelled ALT Cancelled Alkaline Phosphatase Cancelled Creatine Kinase Cancelled Troponin I Cancelled B-Natriuretic Peptide 59332.3 H Total Protein Cancelled Albumin Cancelled Urine Color Urine Appearance Urine pH Ur Specific [place] Urine Protein Urine Glucose (UA) Urine Ketones Urine Blood Urine Nitrite Urine Bilirubin Urine Urobilinogen Ur Leukocyte Esterase Urine WBC (Auto) Urine RBC (Auto) Urine Casts (Auto) U Epithel Cells (Auto) Urine Bacteria (Auto) 07/06/19 07/06/19 04:50 05:30 WBC RBC Hgb Hct MCV MCH MCHC RDW Plt Count MPV Absolute Neuts (auto) Neutrophils % Neutrophils % (Manual) Band Neutrophils % Lymphocytes % Lymphocytes % (Manual) Monocytes % Monocytes % (Manual) Eosinophils % Eosinophils % (Manual) Basophils % Basophils % (Manual) Myelocytes % (Man) Promyelocytes % (Man) Blast Cells % (Manual) Nucleated RBC % Metamyelocytes Hypochromia Platelet Estimate Polychromasia Poikilocytosis Anisocytosis Microcytosis Macrocytosis Spherocytes Ovalocytes [place] Cells Schistocytes Sodium 131 L Potassium 5.3 H Chloride 102 Carbon Dioxide 22 Anion Gap 8 BUN 47.6 H Creatinine 1.7 H Est GFR (CKD-EPI)AfAm 31.54 Est GFR (CKD-EPI)NonAf 27.22 Random Glucose 184 H Calcium 9.0 Magnesium Total Bilirubin 0.2 AST 36 ALT 38 Alkaline Phosphatase 104 Creatine Kinase 144 Troponin I 0.03 B-Natriuretic Peptide Total Protein 6.4 Albumin 2.7 L Urine Color Yellow Urine Appearance Turbid Urine pH 5.5 Ur Specific [place] 1.016 Urine Protein 1+ H Urine Glucose (UA) 1+ H Urine Ketones Negative Urine Blood 2+ H Urine Nitrite Positive H Urine Bilirubin Negative Urine Urobilinogen 0.2 Ur Leukocyte Esterase 3+ H Urine WBC (Auto) 1615 Urine RBC (Auto) 26 Urine Casts (Auto) 5 U Epithel Cells (Auto) 1.7 Urine Bacteria (Auto) 101.3 [place] noted [place] [address], hyponatremia, hyperkalemia, and HAROLDO in the setting of UTI Due to previous cultures, patient to be started on meropenem. Patient was endorsed to hospitalist service and accepted for admission for HAROLDO, metabolic derangement, and UTI requiring IV abx. Dispo:Admit Discharge - Discharge Information Problems reviewed: Yes Clinical Impression/Diagnosis: UTI (urinary tract infection) - Follow up/Referral - Patient Discharge Instructions - Post Discharge Activity
--- NOTE | 2019-07-06 02:50 | PDOC ---
Attending Attestation - Resident Resident Name: Osmel Weinberg - ED Attending Attestation I have performed the following: I have examined & evaluated the patient, The case was reviewed & discussed with the resident, I agree w/resident's findings & plan - HPI HPI: 07/06/19 02:49 see resident hpi - Physicial Exam PE: 07/06/19 02:49 see resident exam - Medical Decision Making 07/06/19 02:49 84-year-old female sent for abnormal labs from a long term facility 07/08/19 18:12 Labs suggest urinary tract infection, acute kidney injury and congestive heart failure Antibiotics administered, admit to medical service for further evaluation
[2019-07-06 04:36] LABS: BASO % 0.4 % (0-2.0); HEMATOCRIT 33.5 % (32.4-45.2); LYMPH % 15.2 % (8-40); MCH 29.6 pg (25.7-33.7); MCHC 32.8 g/dl (32.0-36.0); MEAN CELL VOLUME 90.2 fl (80-96); MONO % 6.8 % (3.8-10.2); NEUT % 75.6 % (42.8-82.8); PLATELET COUNT 325 K/MM3 (134-434); RBC 3.71 M/mm3 (3.60-5.2); RDW 14.7 % (11.6-15.6); WHITE BLOOD COUNT 18.3 K/mm3 (4.0-10.0)
[2019-07-06 05:36] LABS: EPI CELLS 1.7 /HPF (0-5/HPF); HYALINE CASTS 5 /lpf (0-8); PH,URINE 5.5 (5.0-8.0); URINE APPEARANCE TURBID; URINE BACTERIA 101.3 /hpf (NEGATIVE); URINE BILIRUBIN NEGATIVE (NEGATIVE); URINE COLOR YELLOW; URINE GLUCOSE (UA) 1+ (NEGATIVE); URINE KETONE NEGATIVE (NEGATIVE); URINE LEUK ESTERASE 3+ (NEGATIVE); URINE NITRITE POSITIVE (NEGATIVE); URINE PROTEIN 1+ (NEGATIVE); URINE RBC 26 /hpf (0-4); URINE UROBILINOGEN 0.2 mg/dL (0.2-1.0); URINE WBC 1615 /hpf (0-5)
[2019-07-06 06:14] LABS: ALBUMIN 2.7 g/dl (3.4-5.0); BILIRUBIN,TOTAL 0.2 mg/dL (0.2-1); BLOOD UREA NITROGEN 47.6 mg/dL (7-18); CREATININE 1.7 mg/dL (0.55-1.3); POTASSIUM 5.3 mmol/L (3.5-5.1); TOT PROT 6.4 g/dl (6.4-8.2)
[2019-07-06] MEDS ORDERED: PIPERACILLIN/TAZOB 3.375 GM 3.375 GM in DEXTROSE 5%-WATER - 50 ML IVPB ONE (06:56)
[2019-07-06] MEDS ORDERED: MEROPENEM 1 GM in DEXTROSE 5%-WATER 100 ML IVPB ONE (07:15)
[2019-07-06] MEDS ORDERED: MEROPENEM 1 GM VIAL (RESTRICTED TO ID) IVPB ONE (08:40)
--- NOTE | 2019-07-06 10:17 | HP ---
Admitting History and Physical - Primary Care Physician PCP: Raina Hardy - Admission Chief Complaint: Altered mental status History of Present Illness: Pt sent from [facility] for abnormal labs-- found to have WBC- 18, creatinine 3.1 with sodium of 128 I have been seeing her in [facility] for the past two days-- she was lethargic-- responds to stimuli-- not eating. She was previously on Bactrim DS for cellulitis of left foot- which was dc and started her on Ceftriaxone for the ; last 2 days , along with Iv fluids. Pt transferred to ER as she was not mentating well. 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) Endocrine: Yes: Diabetes Mellitus, Hypothyroidism - Past Surgical History Past Surgical History: Yes: CABG, Joint Replacement (right elbow sx), Stent - Smoking History Smoking history: Never smoked Have you smoked in the past 12 months: No Aproximately how many cigarettes per day: 0 - Alcohol/Substance Use Hx Alcohol Use: No History of Substance Use: reports: None - Social History ADL: Support Services History of Recent Travel: No Home Medications - Allergies Allergies/Adverse Reactions: Allergies Allergy/AdvReac Type Severity Reaction Status Date / Time No Known Drug Allergies Allergy Verified 07/06/19 01:31 - Home Medications Home Medications: Ambulatory Orders Carvedilol [Coreg -] 6.25 mg PO BID 08/20/17 Levothyroxine [Synthroid -] 125 mcg PO DAILY 08/20/17 Ranolazine [Ranexa] 500 mg PO BID 08/20/17 Atorvastatin Ca [Lipitor] 40 mg PO HS #30 tablet 09/21/17 Gabapentin [Neurontin -] 600 mg PO TID 02/25/18 Clopidogrel Bisulfate [Plavix -] 75 mg PO DAILY tablet 08/24/18 Ezetimibe [Zetia -] 10 mg PO DAILY tablet 08/24/18 Acetaminophen 650 mg PO DAILY PRN MDD 1950 09/08/18 Furosemide [Lasix -] 40 mg PO DAILY 04/26/19 Ramipril 2.5 mg PO DAILY 04/26/19 Insulin (Levemir) [Levemir Vial] 35 units SQ HS units 04/28/19 Pantoprazole Sodium [Protonix -] 40 mg PO DAILY tablet.ec 04/28/19 Polyethylene Glycol 3350 [Miralax 119 gm Btl -] 17 gm PO BID bottle 04/28/19 Psyllium [Metamucil (Sugar-Free) -] 5.85 gm PO BID packet 04/28/19 Lactobacillus Acidophilus [Bacid -] 1 each PO BID 05/08/19 Oseltamivir Phosphate [Tamiflu] 75 mg PO DAILY 05/08/19 Sennosides [Senna -] 2 tab PO HS 05/08/19 Sertraline HCl [Zoloft] 25 mg PO DAILY 05/08/19 Review of Systems - Review of Systems Constitutional: denies: Chills, Fever Cardiovascular: denies: Chest Pain Respiratory: denies: Cough Gastrointestinal: reports: Abdominal Pain Physical Examination Vital Signs: Vital Signs Temperature 97.8 F 07/06/19 00:43 Pulse Rate 79 07/06/19 00:43 Respiratory Rate 18 07/06/19 00:43 Blood Pressure 139/62 07/06/19 00:43 O2 Sat by Pulse Oximetry (%) 98 07/06/19 05:50 Constitutional: Yes: Anxious Cardiovascular: Yes: Regular Rate and Rhythm Respiratory: Yes: CTA Bilaterally Gastrointestinal: Yes: Normal Bowel Sounds, Soft, Abdomen, Obese, Tenderness ( suprapubic) Edema: No Psychiatric: Yes: Alert Labs: CBC, BMP 07/06/19 03:07 07/06/19 05:30 Imaging - Results Chest X-ray: Image Reviewed (no congestion or infiltrate) EKG: Image Reviewed (nsr) Problem List - Problems (1) UTI (urinary tract infection) Code(s): N39.0 - URINARY TRACT INFECTION, SITE NOT SPECIFIED (2) HAROLDO (acute kidney injury) Code(s): N17.9 - ACUTE KIDNEY FAILURE, UNSPECIFIED (3) Abdominal pain Code(s): R10.9 - UNSPECIFIED ABDOMINAL PAIN (4) Acute metabolic encephalopathy Code(s): G93.41 - METABOLIC ENCEPHALOPATHY Assessment/Plan PLAN IV fluids IV antibiotics ID eval continue with meds
[2019-07-06 12:53] LABS: ANISOCYTOSIS 2+; MACROCYTOSIS 0; OVALOCYTE 1+; PLATELET ESTIMATE NORMAL
--- NOTE | 2019-07-06 13:42 | EKG ---
Test Reason : Blood Pressure : / mmHG Vent. Rate : 072 BPM Atrial Rate : 072 BPM P-R Int : 160 ms QRS Dur : 090 ms QT Int : 382 ms P-R-T Axes : 050 020 122 degrees QTc Int : 418 ms NORMAL SINUS RHYTHM LOW VOLTAGE QRS ABNORMAL ECG WHEN COMPARED WITH ECG OF 08-MAY-2019 13:24, PREVIOUS ECG HAS UNDETERMINED RHYTHM, NEEDS REVIEW NON-SPECIFIC CHANGE IN ST SEGMENT IN ANTERIOR LEADS ST LESS DEPRESSED IN LATERAL LEADS T WAVE INVERSION NOW EVIDENT IN ANTERIOR LEADS T WAVE INVERSION LESS EVIDENT IN LATERAL LEADS Confirmed by JUDY AMAYA MD ([id number]) on 07/06/2019 1:42:38 PM Referred By: Confirmed By:JUDY AMAYA MD
--- NOTE | 2019-07-06 16:03 | PN ---
Progress Note (short form) - Note Progress Note: ID consult dictated imp/reccd 84 [facility] recently completed treatment with vanco then bactrim for MRSA osteo of the toe she has history of ecoli esbl uti as well as pseudomonas UTI now admitted with abnormal labs- leukocytosis with creatinine at the [place] of 3.1 c/o suprapubic pain and vaginal burning-has palpable bladder on exam no BM for 3 days family reports minimal urine outpt suspect uti with urinary retention to straight cath- leave pelayo in if evidence of retention constipation-to treat renal insufficiency- renal sonogram in am if renal function does not improve ?obstructive history of mrsa osteo elevated creatinine may be due to bactrim as well contact isolation MDRO meropenem adjusted for elevated creatinine d/w daughter at bedside Problem List - Problems (1) Leukocytosis Code(s): D72.829 - ELEVATED WHITE BLOOD CELL COUNT, UNSPECIFIED (2) UTI (urinary tract infection) Code(s): N39.0 - URINARY TRACT INFECTION, SITE NOT SPECIFIED (3) Urinary retention Code(s): R33.9 - RETENTION OF URINE, UNSPECIFIED (4) Constipation Code(s): K59.00 - CONSTIPATION, UNSPECIFIED Qualifiers: Constipation type: unspecified constipation type Qualified Code(s): K59.00 - Constipation, unspecified (5) MDRO (multiple drug resistant organisms) resistance Code(s): Z16.35 - RESISTANCE TO MULTIPLE ANTIMICROBIAL DRUGS
--- NOTE | 2019-07-06 18:45 | CONS ---
DATE OF CONSULTATION: DATE OF DICTATION: 07/06/2019 INFECTIOUS DISEASE CONSULTATION HISTORY OF PRESENT ILLNESS: This is an 84-year-old female. [facility] 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 She is status post IV vancomycin, followed by oral Bactrim, which she just completed several days ago. [facility] from the [facility] with complaints of abnormal labs. She had a white count of over 15,000 and a creatinine of 3.1. On arrival to the ER , she complains of suprapubic and pelvic pain and burning in her vagina. There has been no fever or chills. She is non-ambulatory, per the family, at the [facility]. Her daughter is at the bedside. PAST MEDICAL HISTORY: Notable for hypertension, hyperlipidemia, CHF, neuropathy. 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 She has had prior E. coli ESBL UTIs. Her past medical history is also notable for coronary artery disease. She is status post stents. She has had a bypass in the past. History of diastolic heart failure. History of diabetes, gastric and duodenal ulcers, GERD. PAST SURGICAL HISTORY: She is status post CABG, and she has had right elbow surgery. ALLERGIES: She has no known drug allergies.* MEDICATIONS: [facility] current medications at the [facility] include Coreg, Synthroid, Ranexa, Lipitor, Neurontin, Plavix, Zetia, Lasix, Ramipril, insulin, Protonix, Senna, Lactobacillus and MiraLAX. She was recently on Bactrim, as previously explained. SOCIAL HISTORY: No history of cigarette, alcohol or substance use. She is originally from . Currently she is [facility] the [facility]. PHYSICAL EXAMINATION: General: She is awake and alert. She is in no distress. Vital Signs: Her temperature is 97.8. She has had no fever. Pulse is 79, blood pressure 139/62. Respiratory rate is 18. She is saturating 98% on room air. She has no respiratory symptoms. HEENT: She is normocephalic. Her eyes are anicteric. Neck: Supple. Lungs: Clear to auscultation. Heart: Regular rate and rhythm. Abdomen: Firm. She has suprapubic tenderness. She has a palpable bladder to below her umbilicus. Extremities: Without edema. DIAGNOSTIC STUDIES: White count is 18.3, hemoglobin 11, platelets 325. BUN 47, creatinine 1.7. Her creatinine was 1.2 the last time she was in the hospital. Her urinalysis has 3+ leukocytes with 1615 white cells. Urine and blood cultures are pending. Chest x-ray is negative for infiltrate. SUMMARY: 1. This is an 84-year-old woman who I suspect has urinary tract infection with urinary retention. Nurses to straight catheterize and leave a Parish if she has evidence of retention. 2. She is also constipated. Family reports she has not had a bowel movement in 3 days. This probably is affecting her urinary retention. 3. Renal insufficiency, could be obstructive as well, could be due to the Bactrim as well. Would get a renal sonogram if the renal function does not improve. Would keep her in contact isolation for multidrug-resistant organisms, methicillin- resistant Staphylococcus aureus as well as Escherichia coli extended-spectrum beta lactamase. Would continue meropenem, adjusted for elevated creatinine. I spoke with the patient and with the PMD as well. PTARICIA CORDERO M.D. [id number] NATALYA
[2019-07-06] MEDS: MEROPENEM 1 GM in DEXTROSE 5%-WATER 100 ML IVPB SCH (21:33)
[2019-07-06] MEDS ORDERED: CARVEDILOL 3.125 MG TABLET (FP) ONE (22:56)
[2019-07-06] MEDS ORDERED: ATORVASTATIN CA 40 MG TABLET (FP) ONE (22:56)
[2019-07-06] MEDS ORDERED: SENNOSIDES 8.6MG TABLET (FP) PO ONE (22:56)
[2019-07-06] MEDS ORDERED: INSULIN (LEVEMIR) 100 UNITS/ML UNITS SQ ONE (22:58)
[2019-07-06] MEDS ORDERED: ACETAMINOPHEN 325 MG TABLET (FP) ONE (22:59)
[2019-07-06] MEDS: CARVEDILOL 6.25 MG TABLET (FP) PO SCH (23:13)
[2019-07-06] MEDS: ATORVASTATIN CA 40 MG TABLET (FP) PO SCH (23:13)
[2019-07-06] MEDS: SENNOSIDES 8.6MG TABLET (FP) PO SCH (23:13)
[2019-07-06] MEDS: INSULIN (LEVEMIR) 100 UNITS/ML UNITS SQ SCH (23:13)
[2019-07-06] MEDS: ACETAMINOPHEN 325 MG TABLET (FP) PO PRN (23:14)
[2019-07-07] MEDS: RANOLAZINE E.R. 500 MG TABLET (FP) PO SCH ×3 (00:10→21:49)
[2019-07-07] MEDS: ACETAMINOPHEN 325 MG TABLET (FP) PO PRN (04:36)
[2019-07-07] MEDS: LEVOTHYROXINE NA 125 MCG TABLET (FP) PO SCH (06:03)
[2019-07-07] MEDS ORDERED: DEXTROSE 5%-WATER 100 ML IVPB ONE ×2 (10:31→21:47)
[2019-07-07] MEDS ORDERED: MEROPENEM 1 GM VIAL (RESTRICTED TO ID) IVPB ONE ×2 (10:31→21:47)
[2019-07-07] MEDS ORDERED: PT OWN MED DRAWER 7, Y5N ONE (10:32)
--- NOTE | 2019-07-07 10:32 | PN ---
Progress Note (short form) - Note Progress Note: pelayo placed for urinary retention she has no abdominal greene today no fevers daughter at bedside reports she is confused- talking about remote events from her country recognizes her daughter by name and is able to have a conversation in Japanese Vital Signs Period Temp Pulse Resp BP Sys/Ibarra Pulse Ox Last 24 Hr 98 F-98.6 F 20-97 17-20 113-130/44-63 96-98 cor-rrr lungs clear abd soft,nt ext no edema +pelayo CBC, BMP 07/06/19 03:07 07/06/19 05:30 Microbiology 07/06/19 08:22 Blood - Peripheral Venous Blood Culture - Preliminary NO GROWTH OBTAINED AFTER 24 HOURS, INCUBATION TO CONTINUE FOR 4 DAYS. 07/06/19 08:22 Blood - Peripheral Venous Blood Culture - Preliminary NO GROWTH OBTAINED AFTER 24 HOURS, INCUBATION TO CONTINUE FOR 4 DAYS. 07/06/19 04:50 Urine - Urine Clean Catch Urine Culture - Final Contaminated: Please Repeat a/p UTi with urinary retention f/u labs, f/u cultures on meropenem history of mrsa osteo elevated creatinine may be due to bactrim as well contact isolation MDRO meropenem adjusted for elevated creatinine d/w daughter at bedside consider neurology consult repeat labs Problem List - Problems (1) Leukocytosis Code(s): D72.829 - ELEVATED WHITE BLOOD CELL COUNT, UNSPECIFIED (2) UTI (urinary tract infection) Code(s): N39.0 - URINARY TRACT INFECTION, SITE NOT SPECIFIED (3) Urinary retention Code(s): R33.9 - RETENTION OF URINE, UNSPECIFIED (4) Constipation Code(s): K59.00 - CONSTIPATION, UNSPECIFIED Qualifiers: Constipation type: unspecified constipation type Qualified Code(s): K59.00 - Constipation, unspecified (5) MDRO (multiple drug resistant organisms) resistance Code(s): Z16.35 - RESISTANCE TO MULTIPLE ANTIMICROBIAL DRUGS
[2019-07-07] MEDS: CARVEDILOL 6.25 MG TABLET (FP) PO SCH ×2 (10:45→21:49)
[2019-07-07] MEDS: CLOPIDOGREL BISULFATE 75 MG TABLET (FP) PO SCH (10:45)
[2019-07-07] MEDS: EZETIMIBE 10 MG TABLET (FP) PO SCH (10:45)
[2019-07-07] MEDS: PANTOPRAZOLE 40 MG TABLET PO SCH (10:45)
[2019-07-07] MEDS: POLYETHYLENE GLYCOL 3350 119 GM BTL PO SCH (10:46)
[2019-07-07] MEDS: MEROPENEM 1 GM in DEXTROSE 5%-WATER 100 ML IVPB SCH ×2 (10:46→21:49)
--- NOTE | 2019-07-07 11:50 | PN ---
Progress Note (short form) - Note Progress Note: Pt seen/ examined chart reviewed awake/ comfortable daughter at bedside daughter reports she is much better Vital Signs Temp 98 F 07/07/19 06:35 Pulse 20 L 07/07/19 06:35 Resp 18 07/07/19 06:35 BP 113/45 L 07/07/19 06:35 Pulse Ox 96 07/07/19 02:04 Intake & Output 07/06/19 07/06/19 07/07/19 11:59 23:59 11:59 Output Total 700 1600 Balance -700 -1600 Weight 150 lb 153 lb Output: Urine 700 1600 Parish 700 1600 Other: Voiding Method Diaper Diaper Bowel Movement No Height 5 ft 5 in 5 ft 5 in Body Mass Index (BMI) 25.0 25.4 Weight Measurement Method Built in [facility] Weight Measurement Method Estimated by Staff Active Medications Acetaminophen (Tylenol -) 650 mg PO Q4H PRN PRN Reason: PAIN Last Admin: 07/07/19 04:36 Dose: 650 mg Atorvastatin Calcium (Lipitor -) 40 mg PO [facility] Last Admin: 07/06/19 23:13 Dose: 40 mg Carvedilol (Coreg -) 6.25 mg PO BID [facility] Last Admin: 07/07/19 10:45 Dose: 6.25 mg Clopidogrel Bisulfate (Plavix -) 75 mg PO DAILY [facility] Last Admin: 07/07/19 10:45 Dose: 75 mg Ezetimibe (Zetia -) 10 mg PO DAILY [facility] Last Admin: 07/07/19 10:45 Dose: 10 mg Meropenem 1 gm/ Dextrose 100 mls @ 200 mls/hr IVPB BID [facility] Last Admin: 07/07/19 10:46 Dose: 200 mls/hr Insulin Detemir (Levemir Vial) 25 units SQ [facility] Last Admin: 07/06/19 23:13 Dose: 25 unit Levothyroxine Sodium (Synthroid -) 125 mcg PO DAILY@0700 [facility] Last Admin: 07/07/19 06:03 Dose: 125 mcg Pantoprazole Sodium (Protonix -) 40 mg PO DAILY [facility] Last Admin: 07/07/19 10:45 Dose: 40 mg Polyethylene Glycol (Miralax (For Daily Use) -) 17 gm PO DAILY [facility] Last Admin: 07/07/19 10:46 Dose: 17 grams Ranolazine (Ranexa -) 500 mg PO BID [facility] Last Admin: 07/07/19 10:45 Dose: 500 mg Senna (Senna -) 2 tab PO HS [facility] Last Admin: 07/06/19 23:13 Dose: 2 tab CBC, BMP 07/06/19 03:07 07/06/19 05:30 Microbiology 07/06/19 08:22 Blood Culture - Preliminary Blood - Peripheral Venous NO GROWTH OBTAINED AFTER 24 HOURS, INCUBATION TO CONTINUE FOR 4 DAYS. 07/06/19 08:22 Blood Culture - Preliminary Blood - Peripheral Venous NO GROWTH OBTAINED AFTER 24 HOURS, INCUBATION TO CONTINUE FOR 4 DAYS. 07/06/19 04:50 Urine Culture - Final Urine - Urine Clean Catch Contaminated: Please Repeat physical exam Awake and comfortable Lungs clear heart sounds regular Abdomen soft Extremities no edema Assessment and plan Better--- resolving toxic metabolic and comfortable at the oob- chair abx f/u cultures/ labs Will follow Problem List - Problems (1) MDRO (multiple drug resistant organisms) resistance Code(s): Z16.35 - RESISTANCE TO MULTIPLE ANTIMICROBIAL DRUGS (2) UTI (urinary tract infection) Code(s): N39.0 - URINARY TRACT INFECTION, SITE NOT SPECIFIED (3) HAROLDO (acute kidney injury) Code(s): N17.9 - ACUTE KIDNEY FAILURE, UNSPECIFIED (4) Acute metabolic encephalopathy Code(s): G93.41 - METABOLIC ENCEPHALOPATHY (5) S/P CABG (coronary artery bypass graft) Code(s): Z95.1 - PRESENCE OF AORTOCORONARY BYPASS GRAFT (6) Type 2 diabetes mellitus Code(s): E11.9 - TYPE 2 DIABETES MELLITUS WITHOUT COMPLICATIONS Qualifiers: Diabetes mellitus manager cable insulin use: unspecified fpc insulin use status Diabetes mellitus complication status: with neurologic complications Diabetes mellitus complication detail: with polyneuropathy Qualified Code(s): E11.42 - Type 2 diabetes mellitus with diabetic polyneuropathy
[2019-07-07 13:38] LABS: BASO % 0.6 % (0-2.0); EOS % 4.1 % (0-4.5); HEMATOCRIT 30.6 % (32.4-45.2); HEMOGLOBIN 10.3 GM/dL (10.7-15.3); LYMPH % 22.8 % (8-40); MCH 30.1 pg (25.7-33.7); MCHC 33.7 g/dl (32.0-36.0); MEAN CELL VOLUME 89.3 fl (80-96); MEAN PLT VOLUME 7.9 fl (7.5-11.1); NEUT % 63.5 % (42.8-82.8); PLATELET COUNT 313 K/MM3 (134-434); RBC 3.43 M/mm3 (3.60-5.2); RDW 14.5 % (11.6-15.6); WHITE BLOOD COUNT 12.7 K/mm3 (4.0-10.0)
[2019-07-07 14:04] LABS: BLOOD UREA NITROGEN 31.2 mg/dL (7-18); CREATININE 0.9 mg/dL (0.55-1.3); POTASSIUM 5.1 mmol/L (3.5-5.1)
[2019-07-07 14:05] LABS: ALBUMIN 2.5 g/dl (3.4-5.0); BILIRUBIN,TOTAL 0.3 mg/dL (0.2-1); CALCIUM 8.9 mg/dL (8.5-10.1); TOT PROT 6.1 g/dl (6.4-8.2)
[2019-07-07 14:36] LABS: ANISOCYTOSIS 0; MACROCYTOSIS 0; PLATELET ESTIMATE NORMAL
[2019-07-07] MEDS: SENNOSIDES 8.6MG TABLET (FP) PO SCH (21:48)
[2019-07-07] MEDS: ATORVASTATIN CA 40 MG TABLET (FP) PO SCH (21:49)
[2019-07-07] MEDS: INSULIN (LEVEMIR) 100 UNITS/ML UNITS SQ SCH (21:53)
[2019-07-08] MEDS ORDERED: LORazepam 2 MG/ML SDV VIAL IM ONE (04:44)
--- NOTE | 2019-07-08 04:52 | HOSP ---
Subjective - Review of Symptoms Events since last encounter: Hospitalist Encounter Notified via microblog by the RN, that the patient is increasingly agitated and combative, attempting to crista OOB, trying to hit staff, shouting and screaming nonsensical. Attempts made earlier by the RN to use the early childhood line unsuccessful, per the RN. Attempted to calm the patient down with a soothing, nurturing tone- unsuccessful. Assessment: This is a 84 y/o woman from [facility] with a PMHx of Dementia, ESBL+ UTI, HTN, HLD, CHF, neuropathy, recent hospitalization for L toe osteomyelitis (discharge on 04/28/2019). Admitted for Electrolyte Imbalance, UTI. Plan: Bureau Ativan Neurological: Yes: Confusion Other Systems: Psychological: Agitation, Combative Physical Examination Vital Signs: Vital Signs Temperature 98.7 F 07/07/19 18:30 Pulse Rate 76 07/07/19 18:30 Respiratory Rate 18 07/07/19 20:45 Blood Pressure 130/64 07/07/19 18:30 O2 Sat by Pulse Oximetry (%) 96 07/07/19 20:45 Findings/Remarks: Patient would not allow further examination Constitutional: Yes: Other (agitated and combative) Eyes: Yes: Conjunctiva Clear, PERRL HENT: Yes: Atraumatic, Normocephalic Neurological: Yes: Confusion Psychiatric: Yes: Agitated Labs: CBC, BMP 07/07/19 12:28 07/07/19 12:28 Hospitalist Encounter Outcome: RN unable to place Bureau due to patient's agitation and combativeness.
[2019-07-08] MEDS: LEVOTHYROXINE NA 125 MCG TABLET (FP) PO SCH (06:26)
[2019-07-08] MEDS ORDERED: GLUCAGON 1 MG KIT IM ONE (07:02)
[2019-07-08] MEDS ORDERED: MEROPENEM 1 GM VIAL (RESTRICTED TO ID) IVPB ONE ×2 (10:30→21:39)
[2019-07-08] MEDS ORDERED: DEXTROSE 5%-WATER 100 ML IVPB ONE ×2 (10:30→21:40)
[2019-07-08] MEDS: PANTOPRAZOLE 40 MG TABLET PO SCH (10:32)
[2019-07-08] MEDS: CLOPIDOGREL BISULFATE 75 MG TABLET (FP) PO SCH (10:32)
[2019-07-08] MEDS: EZETIMIBE 10 MG TABLET (FP) PO SCH (10:32)
[2019-07-08] MEDS: CARVEDILOL 6.25 MG TABLET (FP) PO SCH ×2 (10:32→21:53)
[2019-07-08] MEDS: RANOLAZINE E.R. 500 MG TABLET (FP) PO SCH ×2 (10:32→21:54)
[2019-07-08] MEDS: MEROPENEM 1 GM in DEXTROSE 5%-WATER 100 ML IVPB SCH ×2 (10:32→21:54)
[2019-07-08] MEDS: POLYETHYLENE GLYCOL 3350 119 GM BTL PO SCH (10:32)
[2019-07-08] MEDS ORDERED: INSULIN (NOVOLOG) ASPART 100 UNITS/ML 10ML VIAL ONE (11:04)
[2019-07-08 11:34] LABS: HEMATOCRIT 34.2 % (32.4-45.2); HEMOGLOBIN 11.5 GM/dL (10.7-15.3); LYMPH % 22.7 % (8-40); MCH 29.9 pg (25.7-33.7); MCHC 33.6 g/dl (32.0-36.0); MEAN CELL VOLUME 88.7 fl (80-96); MEAN PLT VOLUME 7.5 fl (7.5-11.1); MONO % 8.3 % (3.8-10.2); NEUT % 66.8 % (42.8-82.8); PLATELET COUNT 386 K/MM3 (134-434); RBC 3.86 M/mm3 (3.60-5.2); RDW 14.5 % (11.6-15.6); WHITE BLOOD COUNT 15.7 K/mm3 (4.0-10.0)
[2019-07-08 11:35] LABS: BASO % 0.4 % (0-2.0); EOS % 1.8 % (0-4.5)
[2019-07-08 12:05] LABS: ALBUMIN 2.9 g/dl (3.4-5.0); BILIRUBIN,TOTAL 0.3 mg/dL (0.2-1); BLOOD UREA NITROGEN 24.8 mg/dL (7-18); CALCIUM 9.4 mg/dL (8.5-10.1)
--- NOTE | 2019-07-08 12:08 | PN ---
Progress Note (short form) - Note Progress Note: Pt seen/ examined awake and confused No distress episode of hypoglycemia--- drafter directional survey today Discussed with RN Vital Signs Temp 98.7 F 07/07/19 18:30 Pulse 76 07/07/19 18:30 Resp 18 07/07/19 20:45 BP 130/64 07/07/19 18:30 Pulse Ox 96 07/07/19 20:45 Intake & Output 07/07/19 07/08/19 07/08/19 23:59 11:59 23:59 Intake Total 525 440 Output Total 900 1000 Balance -375 -560 Weight 150 lb Intake: IVPB 100 100 Oral 425 240 Oral Supplement 100 Output: Urine 900 1000 Parish 900 1000 Other: Voiding Method Indwelling Catheter Indwelling Catheter Bowel Movement No Weight Measurement Method Built in [facility] Active Medications Acetaminophen (Tylenol -) 650 mg PO Q4H PRN PRN Reason: PAIN Last Admin: 07/07/19 04:36 Dose: 650 mg Atorvastatin Calcium (Lipitor -) 40 mg PO [facility] Last Admin: 07/06/19 23:13 Dose: 40 mg Carvedilol (Coreg -) 6.25 mg PO BID [facility] Last Admin: 07/07/19 10:45 Dose: 6.25 mg Clopidogrel Bisulfate (Plavix -) 75 mg PO DAILY [facility] Last Admin: 07/07/19 10:45 Dose: 75 mg Ezetimibe (Zetia -) 10 mg PO DAILY [facility] Last Admin: 07/07/19 10:45 Dose: 10 mg Meropenem 1 gm/ Dextrose 100 mls @ 200 mls/hr IVPB BID [facility] Last Admin: 07/07/19 10:46 Dose: 200 mls/hr Insulin Detemir (Levemir Vial) 25 units SQ [facility] Last Admin: 07/06/19 23:13 Dose: 25 unit Levothyroxine Sodium (Synthroid -) 125 mcg PO DAILY@0700 [facility] Last Admin: 07/07/19 06:03 Dose: 125 mcg Pantoprazole Sodium (Protonix -) 40 mg PO DAILY [facility] Last Admin: 07/07/19 10:45 Dose: 40 mg Polyethylene Glycol (Miralax (For Daily Use) -) 17 gm PO DAILY [facility] Last Admin: 07/07/19 10:46 Dose: 17 grams Ranolazine (Ranexa -) 500 mg PO BID [facility] Last Admin: 07/07/19 10:45 Dose: 500 mg Senna (Senna -) 2 tab PO HS [facility] Last Admin: 07/06/19 23:13 Dose: 2 tab CBC, BMP 07/06/19 03:07 07/06/19 05:30 Microbiology 07/06/19 08:22 Blood Culture - Preliminary Blood - Peripheral Venous NO GROWTH OBTAINED AFTER 24 HOURS, INCUBATION TO CONTINUE FOR 4 DAYS. 07/06/19 08:22 Blood Culture - Preliminary Blood - Peripheral Venous NO GROWTH OBTAINED AFTER 24 HOURS, INCUBATION TO CONTINUE FOR 4 DAYS. 07/06/19 04:50 Urine Culture - Final Urine - Urine Clean Catch Contaminated: Please Repeat physical exam Awake and Confused Lungs clear heart sounds regular Abdomen soft Extremities no edema Assessment and plan clinically stable Cultures negative so far Antibiotics per ID Fall precautions Neurology consult--- For possible dementia GI also consulted--for concern ---suspicion for intraductal papillary mucinous tumor Will get a GI opinion--also oob- chair abx f/u cultures/ labs Monitor blood sugar Kath for safety Will follow Problem List - Problems (1) MDRO (multiple drug resistant organisms) resistance Code(s): Z16.35 - RESISTANCE TO MULTIPLE ANTIMICROBIAL DRUGS (2) UTI (urinary tract infection) Code(s): N39.0 - URINARY TRACT INFECTION, SITE NOT SPECIFIED (3) HAROLDO (acute kidney injury) Code(s): N17.9 - ACUTE KIDNEY FAILURE, UNSPECIFIED (4) Acute metabolic encephalopathy Code(s): G93.41 - METABOLIC ENCEPHALOPATHY (5) S/P CABG (coronary artery bypass graft) Code(s): Z95.1 - PRESENCE OF AORTOCORONARY BYPASS GRAFT (6) Type 2 diabetes mellitus Code(s): E11.9 - TYPE 2 DIABETES MELLITUS WITHOUT COMPLICATIONS Qualifiers: Diabetes mellitus termite control service representative insulin use: unspecified fpc insulin use status Diabetes mellitus complication status: with neurologic complications Diabetes mellitus complication detail: with polyneuropathy Qualified Code(s): E11.42 - Type 2 diabetes mellitus with diabetic polyneuropathy
[2019-07-08 12:16] LABS: ANISOCYTOSIS 2+; MACROCYTOSIS 0; OVALOCYTE 1+; PLATELET ESTIMATE NORMAL; TARGET CELLS 1+; TOXIC GRANULATION 1+
--- NOTE | 2019-07-08 12:44 | PN ---
Progress Note (short form) - Note Progress Note: GI CONSULT DICTATED
--- NOTE | 2019-07-08 13:11 | CONS ---
DATE OF CONSULTATION: DATE OF DICTATION: 07/08/2019 GASTROENTEROLOGY CONSULTATION HISTORY OF PRESENT ILLNESS: Patient is an 84-year-old female with a past medical history of diabetes, hypothyroidism, CAD, bypass surgery, joint replacement, stents, recent treatment for osteomyelitis, who resides at the [facility] and was sent to the hospital for further evaluation of a leukocytosis and abnormal creatinine as well as abnormal sodium. She was found to also have a urinary tract infection. This consultation is for an abnormal MRI from a previous hospitalization. She is a poor historian but denies any abdominal pain, nausea, vomiting, hematemesis, melena, hematochezia. States she is feeling well. She has not had a recent endoscopic evaluation. PAST MEDICAL AND SURGICAL HISTORY: As listed in the HPI. ALLERGIES: No known drug allergies. SOCIAL HISTORY: Does not drink, smoke or use drugs. FAMILY HISTORY: Noncontributory. HOME MEDICATIONS: Were reviewed and include Coreg, Synthroid, Ranexa, Lipitor, Neurontin, Plavix, Zetia, Lasix, ramipril, Levemir, Protonix, MiraLAX, Metamucil, acidophilus, senna and Zoloft. PHYSICAL EXAMINATION: Vital Signs: Temperature 97.8, pulse 76, blood pressure 130/64, respiratory rate 18, oxygen saturation 96% on room air. General: In no acute distress. HEENT: Anicteric sclerae. Cardiovascular: S1, S2, regular rate and rhythm. Lungs: Bilaterally clear to auscultation. Abdomen: Soft and nontender. Extremities: Without edema. LABORATORIES: White blood cell count 15.7, hemoglobin 11, hematocrit 34, MCV 88, platelet count 386. Sodium 135, potassium 5, BUN 24, creatinine 1, glucose 161. Total bilirubin 0.3, AST 32, ALT 52, alkaline phosphatase 106. Urine cultures pending. Blood cultures are so far negative. She has not had any abdominal imaging during this hospitalization, however, on a previous hospitalization she underwent an MRI of the abdomen. This was done on May 10, 2019, which revealed a normal-caliber CBD, no evidence of choledocholithiasis or an obstructive process, contracted gallbladder which limited evaluation for wall thickening, scattered pancreatic cysts with dilated pancreatic side branch suggestive of an IPMN. The largest cyst in the pancreatic body measured 1 cm. There was also a 1-cm left renal cyst, periumbilical fat-containing hernia and small bilateral pleural effusions. 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 RECOMMENDATIONS: At this time further evaluation can be done as an outpatient with an EUS and potential FNA if warranted. Would hold off on any repeat imaging at this time. Continue medical therapy for urinary tract infection and correct electrolyte imbalance. Will follow. DO ALESSANDRO SCHUSTER/[id number]
[2019-07-08] MEDS: INSULIN SLIDING SCALE (NOVOLOG) 1 VIAL SQ SCH (17:48)
[2019-07-08] MEDS: ATORVASTATIN CA 40 MG TABLET (FP) PO SCH (21:53)
[2019-07-08] MEDS: SENNOSIDES 8.6MG TABLET (FP) PO SCH (21:54)
[2019-07-09] MEDS: INSULIN (LEVEMIR) 100 UNITS/ML UNITS SQ SCH ×2 (00:01→21:51)
[2019-07-09] MEDS: LEVOTHYROXINE NA 125 MCG TABLET (FP) PO SCH (06:25)
[2019-07-09] MEDS: INSULIN SLIDING SCALE (NOVOLOG) 1 VIAL SQ SCH ×2 (06:26→16:43)
--- NOTE | 2019-07-09 08:01 | PN.GI ---
GI Progress Note Subjective: NO NEW COMPLAINTS - Objective Vital Signs: Vital Signs Temperature 98 F 07/09/19 05:45 Pulse Rate 82 07/09/19 05:45 Respiratory Rate 20 07/09/19 05:45 Blood Pressure 150/69 07/09/19 05:45 O2 Sat by Pulse Oximetry (%) 96 07/08/19 21:00 Constitutional: Well Nourished, No Distress, Calm Eyes: Yes: WNL HENT: Yes: WNL Neck: Yes: WNL Cardiovascular: Yes: WNL, Regular Rate and Rhythm Respiratory: Yes: WNL, Regular, CTA Bilaterally Gastrointestinal Inspection: Yes: WNL ...Auscultate: Yes: Normoactive Bowel Sounds Musculoskeletal: Yes: WNL Extremities: Yes: WNL Labs: CBC, BMP 07/08/19 10:55 07/08/19 10:55 Problem List - Problems (1) Lesion of pancreas Assessment/Plan: - DIET TOLERATED - C/W ABX PER PRIMARY MEDICAL TEAM - OUTPT EUS FOR PANCREATIC LESION Code(s): K86.9 - DISEASE OF PANCREAS, UNSPECIFIED (2) UTI (urinary tract infection) Code(s): N39.0 - URINARY TRACT INFECTION, SITE NOT SPECIFIED
[2019-07-09 10:12] LABS: BASO % 0.7 % (0-2.0); EOS % 2.4 % (0-4.5); HEMATOCRIT 34.5 % (32.4-45.2); HEMOGLOBIN 11.7 GM/dL (10.7-15.3); LYMPH % 31.5 % (8-40); MCH 30.3 pg (25.7-33.7); MCHC 33.8 g/dl (32.0-36.0); MEAN CELL VOLUME 89.6 fl (80-96); MEAN PLT VOLUME 7.7 fl (7.5-11.1); MONO % 10.3 % (3.8-10.2); NEUT % 55.1 % (42.8-82.8); PLATELET COUNT 365 K/MM3 (134-434); RBC 3.85 M/mm3 (3.60-5.2); RDW 14.7 % (11.6-15.6); WHITE BLOOD COUNT 10.4 K/mm3 (4.0-10.0)
[2019-07-09] MEDS ORDERED: MEROPENEM 1 GM VIAL (RESTRICTED TO ID) IVPB ONE ×2 (10:35→21:10)
[2019-07-09] MEDS ORDERED: DEXTROSE 5%-WATER 100 ML IVPB ONE ×2 (10:36→21:10)
[2019-07-09] MEDS ORDERED: PT OWN MED DRAWER 7, Y5N ONE (10:36)
[2019-07-09] MEDS: MEROPENEM 1 GM in DEXTROSE 5%-WATER 100 ML IVPB SCH ×2 (10:39→21:52)
[2019-07-09 10:43] LABS: ALBUMIN 2.7 g/dl (3.4-5.0); BILIRUBIN,TOTAL 1.1 mg/dL (0.2-1); BLOOD UREA NITROGEN 22.5 mg/dL (7-18); CALCIUM 9.3 mg/dL (8.5-10.1); CREATININE 0.9 mg/dL (0.55-1.3); POTASSIUM 5.1 mmol/L (3.5-5.1); TOT PROT 6.3 g/dl (6.4-8.2)
[2019-07-09] MEDS: EZETIMIBE 10 MG TABLET (FP) PO SCH (10:44)
[2019-07-09] MEDS: CARVEDILOL 6.25 MG TABLET (FP) PO SCH ×2 (10:44→21:51)
[2019-07-09] MEDS: RANOLAZINE E.R. 500 MG TABLET (FP) PO SCH ×2 (10:44→21:52)
[2019-07-09] MEDS: CLOPIDOGREL BISULFATE 75 MG TABLET (FP) PO SCH (10:44)
[2019-07-09] MEDS: PANTOPRAZOLE 40 MG TABLET PO SCH (10:44)
[2019-07-09] MEDS: POLYETHYLENE GLYCOL 3350 119 GM BTL PO SCH (10:51)
[2019-07-09 12:00] LABS: ANISOCYTOSIS 0; MACROCYTOSIS 0; PLATELET ESTIMATE NORMAL
--- NOTE | 2019-07-09 13:15 | PN ---
Progress Note (short form) - Note Progress Note: Pt seen/ examined awake and comfortable No distress Vital Signs Temp 98 F 07/09/19 05:45 Pulse 82 07/09/19 05:45 Resp 20 07/09/19 05:45 BP 150/69 07/09/19 05:45 Pulse Ox 96 07/08/19 21:00 Intake & Output 07/08/19 07/09/19 07/09/19 23:59 11:59 23:59 Intake Total 200 200 Output Total 800 300 Balance -600 -100 Weight 150 lb 146 lb 4 oz Intake: Oral 200 200 Output: Urine 800 300 Parish 800 300 Other: Voiding Method Indwelling Catheter Height 5 ft 5 in Body Mass Index (BMI) 25.0 Weight Measurement Method Built in [facility] Active Medications Acetaminophen (Tylenol -) 650 mg PO Q4H PRN PRN Reason: PAIN Last Admin: 07/07/19 04:36 Dose: 650 mg Atorvastatin Calcium (Lipitor -) 40 mg PO [facility] Last Admin: 07/08/19 21:53 Dose: 40 mg Carvedilol (Coreg -) 6.25 mg PO BID [facility] Last Admin: 07/09/19 10:44 Dose: 6.25 mg Clopidogrel Bisulfate (Plavix -) 75 mg PO DAILY [facility] Last Admin: 07/09/19 10:44 Dose: 75 mg Ezetimibe (Zetia -) 10 mg PO DAILY [facility] Last Admin: 07/09/19 10:44 Dose: 10 mg Meropenem 1 gm/ Dextrose 100 mls @ 200 mls/hr IVPB BID [facility] Last Admin: 07/09/19 10:39 Dose: 200 mls/hr Insulin Aspart (Novolog Vial Sliding Scale -) [facility] Protocol Last Admin: 07/09/19 06:26 Dose: 2 units Insulin Detemir (Levemir Vial) 20 units SQ [facility] Last Admin: 07/09/19 00:01 Dose: 20 units Levothyroxine Sodium (Synthroid -) 125 mcg PO DAILY@0700 [facility] Last Admin: 07/09/19 06:25 Dose: 125 mcg Pantoprazole Sodium (Protonix -) 40 mg PO DAILY [facility] Last Admin: 07/09/19 10:44 Dose: 40 mg Polyethylene Glycol (Miralax (For Daily Use) -) 17 gm PO DAILY [facility] Last Admin: 07/09/19 10:51 Dose: 17 grams Ranolazine (Ranexa -) 500 mg PO BID [facility] Last Admin: 07/09/19 10:44 Dose: 500 mg Senna (Senna -) 2 tab PO HS [facility] Last Admin: 07/08/19 21:54 Dose: 2 tab Microbiology 07/06/19 08:22 Blood Culture - Preliminary Blood - Peripheral Venous NO GROWTH OBTAINED AFTER 72 HOURS, INCUBATION TO CONTINUE FOR 2 DAYS. 07/06/19 08:22 Blood Culture - Preliminary Blood - Peripheral Venous NO GROWTH OBTAINED AFTER 72 HOURS, INCUBATION TO CONTINUE FOR 2 DAYS. 07/07/19 20:00 Urine Culture - Final Urine - Urine Parish NO GROWTH OBTAINED CBC, BMP 07/09/19 08:35 07/09/19 08:35 Abnormal Lab Results 07/09/19 07/09/19 07/09/19 08:35 08:35 08:35 WBC 10.4 H Monocytes % 10.3 H Monocytes % (Manual) 1 L D Sodium 135 L Anion Gap 7 L BUN 22.5 H Random Glucose 212 H Hemoglobin A1c % 9.4 H Total Bilirubin 1.1 H Total Protein 6.3 L Albumin 2.7 L Physical exam Awake and comfortable Lungs clear heart sounds regular Abdomen soft Extremities no edema Assessment and plan clinically stable Cultures negative so far WBC coming down Antibiotics per ID---consider discontinue tomorrow Will discuss with ID Fall precautions Neurology consult--- pending GI also consulted--consults noted and appreciated----will discuss with family also oob- chair abx f/u cultures/ labs Monitor blood sugar-- Kath for safety Will follow Problem List - Problems (1) MDRO (multiple drug resistant organisms) resistance Code(s): Z16.35 - RESISTANCE TO MULTIPLE ANTIMICROBIAL DRUGS (2) UTI (urinary tract infection) Code(s): N39.0 - URINARY TRACT INFECTION, SITE NOT SPECIFIED (3) HAROLDO (acute kidney injury) Code(s): N17.9 - ACUTE KIDNEY FAILURE, UNSPECIFIED (4) Acute metabolic encephalopathy Code(s): G93.41 - METABOLIC ENCEPHALOPATHY (5) S/P CABG (coronary artery bypass graft) Code(s): Z95.1 - PRESENCE OF AORTOCORONARY BYPASS GRAFT (6) Type 2 diabetes mellitus Code(s): E11.9 - TYPE 2 DIABETES MELLITUS WITHOUT COMPLICATIONS Qualifiers: Diabetes mellitus rodent exterminator insulin use: unspecified rodent exterminator insulin use status Diabetes mellitus complication status: with neurologic complications Diabetes mellitus complication detail: with polyneuropathy Qualified Code(s): E11.42 - Type 2 diabetes mellitus with diabetic polyneuropathy
[2019-07-09] MEDS: ATORVASTATIN CA 40 MG TABLET (FP) PO SCH (21:52)
[2019-07-09] MEDS: SENNOSIDES 8.6MG TABLET (FP) PO SCH (21:52)
[2019-07-10] MEDS: LEVOTHYROXINE NA 125 MCG TABLET (FP) PO SCH (06:42)
[2019-07-10] MEDS: INSULIN SLIDING SCALE (NOVOLOG) 1 VIAL SQ SCH ×2 (06:42→16:52)
--- NOTE | 2019-07-10 07:04 | PN.GI ---
GI Progress Note Subjective: NO NEW COMPLAINTS - Objective Vital Signs: Vital Signs Temperature 97.7 F 07/10/19 06:53 Pulse Rate 74 07/10/19 06:53 Respiratory Rate 07/10/19 06:53 Blood Pressure 152/75 07/10/19 06:53 O2 Sat by Pulse Oximetry (%) 93 L 07/09/19 21:00 Constitutional: Well Nourished, No Distress, Calm Cardiovascular: Yes: WNL Respiratory: Yes: WNL, Regular, CTA Bilaterally Gastrointestinal Inspection: Yes: WNL Extremities: Yes: WNL Edema: No Labs: CBC, BMP 07/09/19 08:35 07/09/19 08:35 Problem List - Problems (1) Lesion of pancreas Assessment/Plan: - DIET TOLERATED - C/W ABX PER PRIMARY MEDICAL TEAM - OUTPT EUS FOR PANCREATIC LESION Code(s): K86.9 - DISEASE OF PANCREAS, UNSPECIFIED (2) UTI (urinary tract infection) Code(s): N39.0 - URINARY TRACT INFECTION, SITE NOT SPECIFIED
[2019-07-10] MEDS ORDERED: MEROPENEM 1 GM VIAL (RESTRICTED TO ID) IVPB ONE ×2 (09:59→21:35)
[2019-07-10] MEDS ORDERED: DEXTROSE 5%-WATER 100 ML IVPB ONE ×2 (10:00→21:36)
[2019-07-10] MEDS: CLOPIDOGREL BISULFATE 75 MG TABLET (FP) PO SCH (10:09)
[2019-07-10] MEDS: PANTOPRAZOLE 40 MG TABLET PO SCH (10:09)
[2019-07-10] MEDS: POLYETHYLENE GLYCOL 3350 119 GM BTL PO SCH (10:09)
[2019-07-10] MEDS: EZETIMIBE 10 MG TABLET (FP) PO SCH (10:09)
[2019-07-10] MEDS: MEROPENEM 1 GM in DEXTROSE 5%-WATER 100 ML IVPB SCH ×2 (10:09→22:04)
[2019-07-10] MEDS: CARVEDILOL 6.25 MG TABLET (FP) PO SCH ×2 (10:09→22:03)
[2019-07-10] MEDS: RANOLAZINE E.R. 500 MG TABLET (FP) PO SCH ×2 (10:09→22:04)
--- NOTE | 2019-07-10 11:14 | PN ---
Progress Note (short form) - Note Progress Note: pt seen/ examined no distress complains of back pain-- lying in bed - says not comfortable Vital Signs Temp 97.8 F 07/10/19 10:00 Pulse 70 07/10/19 10:00 Resp 20 07/10/19 10:00 BP 134/68 07/10/19 10:00 Pulse Ox 93 L 07/09/19 21:00 Intake & Output 07/09/19 07/09/19 07/10/19 11:59 23:59 11:59 Intake Total 200 717 Output Total 300 250 300 Balance -100 467 -300 Weight 146 lb 4 oz 149 lb Intake: IVPB 100 Oral 200 277 Oral Supplement 340 Output: Urine 300 250 300 Parish 300 250 300 Other: Voiding Method Indwelling Catheter Indwelling Catheter Bowel Movement No No Weight Measurement Method Built in Bedscale Built in Bedscale Active Medications Acetaminophen (Tylenol -) 650 mg PO Q4H PRN PRN Reason: PAIN Last Admin: 07/07/19 04:36 Dose: 650 mg Atorvastatin Calcium (Lipitor -) 40 mg PO [facility] Last Admin: 07/09/19 21:52 Dose: 40 mg Carvedilol (Coreg -) 6.25 mg PO BID [facility] Last Admin: 07/10/19 10:09 Dose: 6.25 mg Clopidogrel Bisulfate (Plavix -) 75 mg PO DAILY [facility] Last Admin: 07/10/19 10:09 Dose: 75 mg Ezetimibe (Zetia -) 10 mg PO DAILY [facility] Last Admin: 07/10/19 10:09 Dose: 10 mg Meropenem 1 gm/ Dextrose 100 mls @ 200 mls/hr IVPB BID [facility] Last Admin: 07/10/19 10:09 Dose: 200 mls/hr Insulin Aspart ([facility] Vial Sliding Scale -) [facility] Last Admin: 07/10/19 06:42 Dose: Not Given Insulin Detemir (Levemir Vial) 23 units SQ [facility] Levothyroxine Sodium (Synthroid -) 125 mcg PO DAILY@0700 [facility] Last Admin: 07/10/19 06:42 Dose: 125 mcg Pantoprazole Sodium (Protonix -) 40 mg PO DAILY [facility] Last Admin: 07/10/19 10:09 Dose: 40 mg Polyethylene Glycol (Miralax (For Daily Use) -) 17 gm PO DAILY [facility] Last Admin: 07/10/19 10:09 Dose: 17 grams Ranolazine (Ranexa -) 500 mg PO BID [facility] Last Admin: 07/10/19 10:09 Dose: 500 mg Senna (Senna -) 2 tab PO HS [facility] Last Admin: 07/09/19 21:52 Dose: 2 tab CBC, BMP 07/09/19 08:35 07/09/19 08:35 Microbiology 07/06/19 08:22 Blood Culture - Preliminary Blood - Peripheral Venous NO GROWTH OBTAINED AFTER 96 HOURS, INCUBATION TO CONTINUE FOR 1 DAYS. 07/06/19 08:22 Blood Culture - Preliminary Blood - Peripheral Venous NO GROWTH OBTAINED AFTER 96 HOURS, INCUBATION TO CONTINUE FOR 1 DAYS. 07/07/19 20:00 Urine Culture - Final Urine - Urine Parish NO GROWTH OBTAINED Physical exam Awake and comfortable Lungs clear heart sounds regular Abdomen soft Extremities no edema Assessment and plan clinically stable Cultures negative so far WBC coming down Antibiotics per ID---consider discontinue tomorrow Will discuss with ID/ I/D to follow Fall precautions tylenol for back pain Neurology consult--- pending GI also consulted--consults noted and appreciated----will discuss with family also oob- chair abx f/u cultures/ labs Monitor blood sugar--Increase Levemir 23 units Will follow Problem List - Problems (1) MDRO (multiple drug resistant organisms) resistance Code(s): Z16.35 - RESISTANCE TO MULTIPLE ANTIMICROBIAL DRUGS (2) UTI (urinary tract infection) Code(s): N39.0 - URINARY TRACT INFECTION, SITE NOT SPECIFIED (3) HAROLDO (acute kidney injury) Code(s): N17.9 - ACUTE KIDNEY FAILURE, UNSPECIFIED (4) Acute metabolic encephalopathy Code(s): G93.41 - METABOLIC ENCEPHALOPATHY (5) S/P CABG (coronary artery bypass graft) Code(s): Z95.1 - PRESENCE OF AORTOCORONARY BYPASS GRAFT (6) Type 2 diabetes mellitus Code(s): E11.9 - TYPE 2 DIABETES MELLITUS WITHOUT COMPLICATIONS Qualifiers: Diabetes mellitus intermediate accountant insulin use: unspecified shelter insulin use status Diabetes mellitus complication status: with neurologic complications Diabetes mellitus complication detail: with polyneuropathy Qualified Code(s): E11.42 - Type 2 diabetes mellitus with diabetic polyneuropathy Problem List - Problems (1) MDRO (multiple drug resistant organisms) resistance Code(s): Z16.35 - RESISTANCE TO MULTIPLE ANTIMICROBIAL DRUGS (2) UTI (urinary tract infection) Code(s): N39.0 - URINARY TRACT INFECTION, SITE NOT SPECIFIED (3) HAROLDO (acute kidney injury) Code(s): N17.9 - ACUTE KIDNEY FAILURE, UNSPECIFIED (4) Acute metabolic encephalopathy Code(s): G93.41 - METABOLIC ENCEPHALOPATHY (5) S/P CABG (coronary artery bypass graft) Code(s): Z95.1 - PRESENCE OF AORTOCORONARY BYPASS GRAFT (6) Type 2 diabetes mellitus Code(s): E11.9 - TYPE 2 DIABETES MELLITUS WITHOUT COMPLICATIONS Qualifiers: Diabetes mellitus shelter insulin use: unspecified shelter insulin use status Diabetes mellitus complication status: with neurologic complications Diabetes mellitus complication detail: with polyneuropathy Qualified Code(s): E11.42 - Type 2 diabetes mellitus with diabetic polyneuropathy
[2019-07-10] MEDS ORDERED: INSULIN (NOVOLOG) ASPART 100 UNITS/ML 10ML VIAL ONE (16:52)
--- NOTE | 2019-07-10 18:45 | PN.GI ---
GI Progress Note Subjective: s/p colonoscopy 2014--redundant sigmoid, EGD noted to have mild gastritis. Chart reviewed. Patient noted to have multiple pancreatic cys. Patient asymptomatic - Objective Vital Signs: Vital Signs Temperature 98.0 F 07/10/19 14:41 Pulse Rate 68 07/10/19 14:41 Respiratory Rate 20 07/10/19 14:41 Blood Pressure 107/48 L 07/10/19 14:41 O2 Sat by Pulse Oximetry (%) 93 L 07/09/19 21:00 Constitutional: Well Nourished Eyes: Yes: Conjunctiva Clear HENT: Yes: Atraumatic, Tonsillar Exudate Cardiovascular: Yes: Regular Rate and Rhythm Respiratory: Yes: CTA Bilaterally ...Palpate: Yes: Soft. No: Firm/Rigid, Guarding, Hepatomegaly, Mass, Pulsatile Mass, Splenomegaly, Tenderness Labs: CBC, BMP 07/09/19 08:35 07/09/19 08:35 Problem List - Problems (1) Pancreatic cyst Assessment/Plan: patient last seen in the office 5 years ago . 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
[2019-07-10] MEDS: ACETAMINOPHEN 325 MG TABLET (FP) PO PRN (22:03)
[2019-07-10] MEDS: INSULIN (LEVEMIR) 100 UNITS/ML UNITS SQ SCH (22:03)
[2019-07-10] MEDS: SENNOSIDES 8.6MG TABLET (FP) PO SCH (22:04)
[2019-07-10] MEDS: ATORVASTATIN CA 40 MG TABLET (FP) PO SCH (22:04)
[2019-07-11] MEDS: ACETAMINOPHEN 325 MG TABLET (FP) PO PRN (02:37)
[2019-07-11] MEDS: INSULIN SLIDING SCALE (NOVOLOG) 1 VIAL SQ SCH ×2 (06:27→17:08)
[2019-07-11] MEDS: LEVOTHYROXINE NA 125 MCG TABLET (FP) PO SCH (06:27)
[2019-07-11] MEDS ORDERED: MEROPENEM 1 GM VIAL (RESTRICTED TO ID) IVPB ONE (09:02)
[2019-07-11] MEDS ORDERED: DEXTROSE 5%-WATER 100 ML IVPB ONE (09:02)
[2019-07-11] MEDS: EZETIMIBE 10 MG TABLET (FP) PO SCH (09:08)
[2019-07-11] MEDS: CLOPIDOGREL BISULFATE 75 MG TABLET (FP) PO SCH (09:08)
[2019-07-11] MEDS: CARVEDILOL 6.25 MG TABLET (FP) PO SCH ×2 (09:08→21:35)
[2019-07-11] MEDS: PANTOPRAZOLE 40 MG TABLET PO SCH (09:08)
[2019-07-11] MEDS: RANOLAZINE E.R. 500 MG TABLET (FP) PO SCH ×2 (09:08→21:35)
[2019-07-11] MEDS: MEROPENEM 1 GM in DEXTROSE 5%-WATER 100 ML IVPB SCH (09:09)
[2019-07-11] MEDS: POLYETHYLENE GLYCOL 3350 119 GM BTL PO SCH (09:10)
--- NOTE | 2019-07-11 09:26 | PN ---
Progress Note, Physician History of Present Illness: GI FOLLOW UP NOTE Patient examined and case discussed with Dr Pickering Patient denies nausea, vomiting, abdominal pain, diarrhea, constipation, rectal bleeding or melena. Spoke with patient son Darius about EUS as outpatient for MRI findings of pancreatic cyst. - Current Medication List Current Medications: Active Medications Acetaminophen (Tylenol -) 650 mg PO Q4H PRN PRN Reason: PAIN Last Admin: 07/11/19 02:37 Dose: 650 mg Atorvastatin Calcium (Lipitor -) 40 mg PO [facility] Last Admin: 07/10/19 22:04 Dose: 40 mg Carvedilol (Coreg -) 6.25 mg PO BID [facility] Last Admin: 07/11/19 09:08 Dose: 6.25 mg Clopidogrel Bisulfate (Plavix -) 75 mg PO DAILY [facility] Last Admin: 07/11/19 09:08 Dose: 75 mg Ezetimibe (Zetia -) 10 mg PO DAILY [facility] Last Admin: 07/11/19 09:08 Dose: 10 mg Meropenem 1 gm/ Dextrose 100 mls @ 200 mls/hr IVPB BID [facility] Last Admin: 07/11/19 09:09 Dose: 200 mls/hr Insulin Aspart (Nov[facility] Vial Sliding Scale -) [facility]; Protocol Last Admin: 07/11/19 06:27 Dose: Not Given Insulin Detemir (Levemir Vial) 23 units SQ [facility] Last Admin: 07/10/19 22:03 Dose: 23 units Levothyroxine Sodium (Synthroid -) 125 mcg PO DAILY@0700 [facility] Last Admin: 07/11/19 06:27 Dose: 125 mcg Pantoprazole Sodium (Protonix -) 40 mg PO DAILY [facility] Last Admin: 07/11/19 09:08 Dose: 40 mg Polyethylene Glycol (Miralax (For Daily Use) -) 17 gm PO DAILY [facility] Last Admin: 07/11/19 09:10 Dose: 17 grams Ranolazine (Ranexa -) 500 mg PO BID [facility] Last Admin: 07/11/19 09:08 Dose: 500 mg Senna (Senna -) 2 tab PO [facility] Last Admin: 07/10/19 22:04 Dose: 2 tab - Objective Vital Signs: Vital Signs Temperature 98.1 F 07/11/19 09:18 Pulse Rate 78 07/11/19 09:18 Respiratory Rate 20 07/11/19 09:18 Blood Pressure 122/63 07/11/19 09:18 O2 Sat by Pulse Oximetry (%) 96 07/10/19 21:00 Constitutional: Yes: No Distress, Calm Eyes: Yes: Conjunctiva Clear HENT: Yes: Atraumatic Cardiovascular: Yes: Regular Rate and Rhythm Respiratory: Yes: Regular, CTA Bilaterally Gastrointestinal: Yes: Normal Bowel Sounds, Soft Neurological: Yes: Alert Psychiatric: Yes: Alert Labs: CBC, BMP 07/09/19 08:35 07/09/19 08:35 <Francine Gross - Last Filed: 07/11/19 09:22> - Current Medication List Current Medications: Active Medications Acetaminophen (Tylenol -) 650 mg PO Q4H PRN PRN Reason: PAIN Last Admin: 07/11/19 02:37 Dose: 650 mg Atorvastatin Calcium (Lipitor -) 40 mg PO [facility] Last Admin: 07/10/19 22:04 Dose: 40 mg Carvedilol (Coreg -) 6.25 mg PO BID [facility] Last Admin: 07/11/19 09:08 Dose: 6.25 mg Clopidogrel Bisulfate (Plavix -) 75 mg PO DAILY [facility] Last Admin: 07/11/19 09:08 Dose: 75 mg Ezetimibe (Zetia -) 10 mg PO DAILY [facility] Last Admin: 07/11/19 09:08 Dose: 10 mg Insulin Aspart (Novolog Vial Sliding Scale -) [facility]; Protocol Last Admin: 07/11/19 17:08 Dose: Not Given Insulin Detemir (Levemir Vial) 23 units SQ [facility] Last Admin: 07/10/19 22:03 Dose: 23 units Levothyroxine Sodium (Synthroid -) 125 mcg PO DAILY@0700 [facility] Last Admin: 07/11/19 06:27 Dose: 125 mcg Pantoprazole Sodium (Protonix -) 40 mg PO DAILY [facility] Last Admin: 07/11/19 09:08 Dose: 40 mg Polyethylene Glycol (Miralax (For Daily Use) -) 17 gm PO DAILY [facility] Last Admin: 07/11/19 09:10 Dose: 17 grams Ranolazine (Ranexa -) 500 mg PO BID [facility] Last Admin: 07/11/19 09:08 Dose: 500 mg Senna (Senna -) 2 tab PO [facility] Last Admin: 07/10/19 22:04 Dose: 2 tab - Objective Vital Signs: Vital Signs Temperature 97.4 F L 07/11/19 14:54 Pulse Rate 72 07/11/19 14:54 Respiratory Rate 20 07/11/19 14:54 Blood Pressure 101/49 L 07/11/19 14:54 O2 Sat by Pulse Oximetry (%) 96 07/11/19 09:00 Labs: CBC, BMP 07/09/19 08:35 07/09/19 08:35 <David Pickernig - Last Filed: 07/11/19 17:43> Problem List - Problems (1) Pancreatic cyst Assessment/Plan: Spoke with patient son Darius and he would like for outpatient EUS to be performed for further evaluation of pancreatic cyst found on MRI from 04/2019. Code(s): K86.2 - CYST OF PANCREAS <Francine Gross - Last Filed: 07/11/19 09:22> - Problems (1) Pancreatic cyst Code(s): K86.2 - CYST OF PANCREAS <David Pickering - Last Filed: 07/11/19 17:43>
--- NOTE | 2019-07-11 16:12 | PN ---
Progress Note (short form) - Note Progress Note: doing well still with pelayo Vital Signs Period Temp Pulse Resp BP Sys/Ibarra Pulse Ox Last 24 Hr 97.4 F-98.2 F 72-80 19-20 101-155/49-75 96-96 cor-rrr lungs clear abd soft,nt ext no edema pelayo CBC, BMP 07/09/19 08:35 07/09/19 08:35 Microbiology 07/06/19 08:22 Blood - Peripheral Venous Blood Culture - Final NO GROWTH AFTER 5 DAYS INCUBATION 07/06/19 08:22 Blood - Peripheral Venous Blood Culture - Final NO GROWTH AFTER 5 DAYS INCUBATION 07/07/19 20:00 Urine - Urine Pelayo Urine Culture - Final NO GROWTH OBTAINED 07/06/19 04:50 Urine - Urine Clean Catch Urine Culture - Final Contaminated: Please Repeat a/p UTi with urinary retention-dc antibiotics today contact isolation MDRO Problem List - Problems (1) Leukocytosis Code(s): D72.829 - ELEVATED WHITE BLOOD CELL COUNT, UNSPECIFIED (2) UTI (urinary tract infection) Code(s): N39.0 - URINARY TRACT INFECTION, SITE NOT SPECIFIED (3) Urinary retention Code(s): R33.9 - RETENTION OF URINE, UNSPECIFIED (4) Constipation Code(s): K59.00 - CONSTIPATION, UNSPECIFIED Qualifiers: Constipation type: unspecified constipation type Qualified Code(s): K59.00 - Constipation, unspecified (5) MDRO (multiple drug resistant organisms) resistance Code(s): Z16.35 - RESISTANCE TO MULTIPLE ANTIMICROBIAL DRUGS
--- NOTE | 2019-07-11 18:45 | PN ---
Progress Note (short form) - Note Progress Note: comfortable family at beside Vital Signs - 24 hr 07/10/19 07/10/19 07/11/19 21:00 23:10 09:00 Temperature 98.2 F Pulse Rate 80 Respiratory 19 Rate Blood Pressure 155/75 O2 Sat by Pulse 96 96 Oximetry (%) 07/11/19 07/11/19 09:18 14:54 Temperature 98.1 F 97.4 F L Pulse Rate 78 72 Respiratory 20 20 Rate Blood Pressure 122/63 101/49 L O2 Sat by Pulse Oximetry (%) Current Medications Generic Name Dose Route Start Last Admin Trade Name Freq PRN Reason Stop Dose Admin Acetaminophen 650 mg 07/06/19 11:23 07/11/19 02:37 Tylenol - PO 650 mg Q4H PRN Administration PAIN Atorvastatin Calcium 40 mg 07/06/19 22:00 07/10/19 22:04 Lipitor - PO 40 mg HS [facility] Administration Carvedilol 6.25 mg 07/06/19 22:00 07/11/19 09:08 Coreg - PO 6.25 mg BID [facility] Administration Clopidogrel Bisulfate 75 mg 07/07/19 10:00 07/11/19 09:08 Plavix - PO 75 mg DAILY [facility] Administration Ezetimibe 10 mg 07/07/19 10:00 07/11/19 09:08 Zetia - PO 10 mg DAILY [facility] Administration Insulin Aspart 1 vial 07/08/19 16:30 07/11/19 17:08 Novolog Vial Sliding Scale - SQ [facility] Protocol Insulin Detemir 23 units 07/10/19 22:00 07/10/19 22:03 Levemir Vial SQ 23 units HS [facility] Administration Levothyroxine Sodium 125 mcg 07/07/19 07:00 07/11/19 06:27 Synthroid - PO 125 mcg DAILY@0700 [facility] Administration Pantoprazole Sodium 40 mg 07/07/19 10:00 07/11/19 09:08 Protonix - PO 40 mg DAILY [facility] Administration Polyethylene Glycol 17 gm 07/07/19 10:00 07/11/19 09:10 Miralax (For Daily Use) - PO 17 grams DAILY [facility] Administration Ranolazine 500 mg 07/06/19 22:00 07/11/19 09:08 Ranexa - PO 500 mg BID [facility] Administration Senna 2 tab 07/06/19 22:00 07/10/19 22:04 Senna - PO 2 tab HS [facility] Administration Laboratory Results - last 24 hr 07/11/19 07/11/19 06:26 16:46 POC Glucometer 132 199 S1 S2 RRR Lungs clear Abd- soft, nT no edema PLAN clinically stable Cultures negative so far antibiotics dc today Fall precautions tylenol for back pain GI-->pancreatic cyst on MRI-- will need outpt EUS oob- chair BGM better Problem List - Problems (1) UTI (urinary tract infection) Code(s): N39.0 - URINARY TRACT INFECTION, SITE NOT SPECIFIED (2) HAROLDO (acute kidney injury) Code(s): N17.9 - ACUTE KIDNEY FAILURE, UNSPECIFIED (3) Abdominal pain Code(s): R10.9 - UNSPECIFIED ABDOMINAL PAIN (4) Acute metabolic encephalopathy Code(s): G93.41 - METABOLIC ENCEPHALOPATHY
[2019-07-11] MEDS: INSULIN (LEVEMIR) 100 UNITS/ML UNITS SQ SCH (21:35)
[2019-07-11] MEDS: ATORVASTATIN CA 40 MG TABLET (FP) PO SCH (21:35)
[2019-07-11] MEDS: SENNOSIDES 8.6MG TABLET (FP) PO SCH (21:35)
[2019-07-12] MEDS: INSULIN SLIDING SCALE (NOVOLOG) 1 VIAL SQ SCH ×2 (06:29→17:45)
[2019-07-12] MEDS: LEVOTHYROXINE NA 125 MCG TABLET (FP) PO SCH (06:29)
[2019-07-12] MEDS: RANOLAZINE E.R. 500 MG TABLET (FP) PO SCH ×2 (09:05→21:02)
[2019-07-12] MEDS: CLOPIDOGREL BISULFATE 75 MG TABLET (FP) PO SCH (09:06)
[2019-07-12] MEDS: PANTOPRAZOLE 40 MG TABLET PO SCH (09:06)
[2019-07-12] MEDS: EZETIMIBE 10 MG TABLET (FP) PO SCH (09:06)
[2019-07-12] MEDS: CARVEDILOL 6.25 MG TABLET (FP) PO SCH ×2 (09:06→21:01)
[2019-07-12] MEDS: ACETAMINOPHEN 325 MG TABLET (FP) PO PRN (09:06)
[2019-07-12] MEDS: POLYETHYLENE GLYCOL 3350 119 GM BTL PO SCH (10:04)
[2019-07-12] MEDS ORDERED: TAMSULOSIN HCL 0.4 MG CAP PO ONE (11:15)
--- NOTE | 2019-07-12 13:05 | PN ---
Problem List - Problems (1) UTI (urinary tract infection) Code(s): N39.0 - URINARY TRACT INFECTION, SITE NOT SPECIFIED (2) HAROLDO (acute kidney injury) Code(s): N17.9 - ACUTE KIDNEY FAILURE, UNSPECIFIED (3) Abdominal pain Code(s): R10.9 - UNSPECIFIED ABDOMINAL PAIN (4) Acute metabolic encephalopathy Code(s): G93.41 - METABOLIC ENCEPHALOPATHY
--- NOTE | 2019-07-12 13:49 | DS ---
Physical Examination Vital Signs: Vital Signs Temperature 97.7 F 07/12/19 06:00 Pulse Rate 65 07/12/19 06:00 Respiratory Rate 20 07/12/19 06:00 Blood Pressure 136/60 07/12/19 06:00 O2 Sat by Pulse Oximetry (%) 96 07/12/19 09:00 Constitutional: Yes: No Distress, Calm Cardiovascular: Yes: Regular Rate and Rhythm Respiratory: Yes: CTA Bilaterally Gastrointestinal: Yes: Normal Bowel Sounds, Soft, Abdomen, Obese. No: Tenderness Edema: No Labs: CBC, BMP 07/09/19 08:35 07/09/19 08:35 Discharge Summary Problems reviewed: Yes Reason For Visit: CHF Current Active Problems Lesion of pancreas (Acute) Leukocytosis (Acute) MDRO (multiple drug resistant organisms) resistance (Acute) Pancreatic cyst (Acute) Pancreatic cyst (Acute) UTI (urinary tract infection) (Acute) Hospital Course: Admitted for abnormal labs Admitting History and Physical - Primary Care Physician PCP: Raina Hardy - Admission Chief Complaint: Altered mental status History of Present Illness: Pt sent from [facility] for abnormal labs-- found to have WBC- 18, creatinine 3.1 with sodium of 128 I have been seeing her in [facility] for the past two days-- she was lethargic-- responds to stimuli-- not eating. She was previously on Bactrim DS for cellulitis of left foot- which was dc and started her on Ceftriaxone for the ; last 2 days , along with Iv fluids. Pt transferred to ER as she was not mentating well. Today in ER-- she is more awake has pain in abdomen pelayo placed in ER-- for management of retention Hospital course Seen by ID and GI started on Meropenum Antibiotics dc cultures negative Renal function now normal Abd pain is better she is voiding today after eplayo was removed this morning Started on Flomax Seen BY GI-- recommends EUD as an outpt to evaluate pancreatic cyst stable for dc to [place] Condition: Fair - Instructions Diet, Activity, Other Instructions: EUS for pancreatic cyst Referrals: Raina Hardy MD [Primary Care Provider] - David Pickering MD [Staff Physician] - Disposition: [facility] - Home Medications Comprehensive Discharge Medication List: Ambulatory Orders Carvedilol [Coreg -] 6.25 mg PO BID 08/20/17 Levothyroxine [Synthroid -] 125 mcg PO DAILY 08/20/17 Ranolazine [Ranexa] 500 mg PO BID 08/20/17 Atorvastatin Ca [Lipitor] 40 mg PO HS #30 tablet 09/21/17 Clopidogrel Bisulfate [Plavix -] 75 mg PO DAILY tablet 08/24/18 Ezetimibe [Zetia -] 10 mg PO DAILY tablet 08/24/18 Acetaminophen 650 mg PO DAILY PRN MDD 1950 09/08/18 Furosemide [Lasix -] 40 mg PO DAILY 04/26/19 Ramipril 2.5 mg PO DAILY 04/26/19 Insulin (Levemir) [Levemir Vial] 35 units SQ HS units 04/28/19 Pantoprazole Sodium [Protonix -] 40 mg PO DAILY tablet.ec 04/28/19 Polyethylene Glycol 3350 [Miralax 119 gm Btl -] 17 gm PO BID bottle 04/28/19 Psyllium [Metamucil (Sugar-Free) -] 5.85 gm PO BID packet 04/28/19 Sennosides [Senna -] 2 tab PO HS 05/08/19 Sertraline HCl [Zoloft] 25 mg PO DAILY 05/08/19 Gabapentin [Neurontin -] 200 mg PO TID #0 tab 07/12/19 Tamsulosin HCl [Flomax -] 0.4 mg PO DAILY@0830 #30 cap.er.24h 07/12/19
[2019-07-12] MEDS ORDERED: PT OWN MED DRAWER 7, Y5N ONE (20:30)
[2019-07-12] MEDS: ATORVASTATIN CA 40 MG TABLET (FP) PO SCH (21:01)
[2019-07-12] MEDS: SENNOSIDES 8.6MG TABLET (FP) PO SCH (21:01)
[2019-07-12] MEDS: INSULIN (LEVEMIR) 100 UNITS/ML UNITS SQ SCH (21:02)
[2019-07-13] MEDS ORDERED: INSULIN (NOVOLOG) ASPART 100 UNITS/ML 10ML VIAL ONE ×2 (06:18→17:10)
[2019-07-13] MEDS: LEVOTHYROXINE NA 125 MCG TABLET (FP) PO SCH (06:35)
[2019-07-13] MEDS: INSULIN SLIDING SCALE (NOVOLOG) 1 VIAL SQ SCH ×2 (06:35→17:10)
[2019-07-13] MEDS: EZETIMIBE 10 MG TABLET (FP) PO SCH (09:19)
[2019-07-13] MEDS: PANTOPRAZOLE 40 MG TABLET PO SCH (09:19)
[2019-07-13] MEDS: TAMSULOSIN HCL 0.4 MG CAP PO SCH (09:19)
[2019-07-13] MEDS: POLYETHYLENE GLYCOL 3350 119 GM BTL PO SCH (09:20)
[2019-07-13] MEDS: CLOPIDOGREL BISULFATE 75 MG TABLET (FP) PO SCH (09:20)
[2019-07-13] MEDS: CARVEDILOL 6.25 MG TABLET (FP) PO SCH ×2 (09:20→22:05)
[2019-07-13] MEDS: RANOLAZINE E.R. 500 MG TABLET (FP) PO SCH ×2 (09:20→22:06)
--- NOTE | 2019-07-13 11:19 | PN ---
Progress Note (short form) - Note Progress Note: comfortable currently but had c/o abd pain in the AM Bladder sono-- 50 cc incontinent Vital Signs - 24 hr 07/12/19 07/12/19 07/13/19 19:38 21:00 06:00 Temperature 97.7 F 98.0 F Pulse Rate 62 67 Respiratory 18 Rate Blood Pressure 110/51 L 138/64 O2 Sat by Pulse 96 Oximetry (%) 07/13/19 09:18 Temperature 98.2 F Pulse Rate 68 Respiratory 20 Rate Blood Pressure 115/48 L O2 Sat by Pulse Oximetry (%) Current Medications Generic Name Dose Route Start Last Admin Trade Name Freq PRN Reason Stop Dose Admin Acetaminophen 650 mg 07/06/19 11:23 07/12/19 09:06 Tylenol - PO 650 mg Q4H PRN Administration PAIN Atorvastatin Calcium 40 mg 07/06/19 22:00 07/12/19 21:01 Lipitor - PO 40 mg HS [facility] Administration Carvedilol 6.25 mg 07/06/19 22:00 07/13/19 09:20 Coreg - PO 6.25 mg BID [facility] Administration Clopidogrel Bisulfate 75 mg 07/07/19 10:00 07/13/19 09:20 Plavix - PO 75 mg DAILY [facility] Administration Ezetimibe 10 mg 07/07/19 10:00 07/13/19 09:19 Zetia - PO 10 mg DAILY [facility] Administration Insulin Aspart 1 vial 07/08/19 16:30 07/13/19 06:35 Novolog Vial Sliding Scale - SQ Not Given [facility] Protocol Insulin Detemir 23 units 07/10/19 22:00 07/12/19 21:02 Levemir Vial SQ 23 units HS [facility] Administration Levothyroxine Sodium 125 mcg 07/07/19 07:00 07/13/19 06:35 Synthroid - PO 125 mcg DAILY@0700 [facility] Administration Pantoprazole Sodium 40 mg 07/07/19 10:00 07/13/19 09:19 Protonix - PO 40 mg DAILY [facility] Administration Polyethylene Glycol 17 gm 07/07/19 10:00 07/13/19 09:20 Miralax (For Daily Use) - PO 17 grams DAILY [facility] Administration Ranolazine 500 mg 07/06/19 22:00 07/13/19 09:20 Ranexa - PO 500 mg BID [facility] Administration Senna 2 tab 07/06/19 22:00 07/12/19 21:01 Senna - PO 2 tab HS [facility] Administration Tamsulosin HCl 0.4 mg 07/13/19 08:30 07/13/19 09:19 Flomax - PO 0.4 mg DAILY@0830 [facility] Administration Laboratory Results - last 24 hr 07/12/19 07/13/19 20:48 06:34 POC Glucometer 297 176 S1 S2 RRR Lungs clear Abd- soft, nT no edema PLAN clinically stable not tender Cultures negative so far antibiotics dc no retention of urine Fall precautions tylenol for back pain GI-->pancreatic cyst on MRI-- will need outpt EUS oob- chair BGM better stable for dc to STR-- family wishes to change NH Problem List - Problems (1) UTI (urinary tract infection) Code(s): N39.0 - URINARY TRACT INFECTION, SITE NOT SPECIFIED (2) HAROLDO (acute kidney injury) Code(s): N17.9 - ACUTE KIDNEY FAILURE, UNSPECIFIED (3) Abdominal pain Code(s): R10.9 - UNSPECIFIED ABDOMINAL PAIN (4) Acute metabolic encephalopathy Code(s): G93.41 - METABOLIC ENCEPHALOPATHY
[2019-07-13 17:00] VITALS: BMI 24.1
[2019-07-13] MEDS: INSULIN (LEVEMIR) 100 UNITS/ML UNITS SQ SCH (22:05)
[2019-07-13] MEDS: SENNOSIDES 8.6MG TABLET (FP) PO SCH (22:06)
[2019-07-13] MEDS: ATORVASTATIN CA 40 MG TABLET (FP) PO SCH (22:06)
[2019-07-14] MEDS: LEVOTHYROXINE NA 125 MCG TABLET (FP) PO SCH (06:23)
[2019-07-14] MEDS: INSULIN SLIDING SCALE (NOVOLOG) 1 VIAL SQ SCH (06:23)
--- NOTE | 2019-07-14 07:27 | PN.GI ---
GI Progress Note Subjective: patient has mild diffuse abdominal pain associated with abdiominal bloating and early satiety. Patient on Pantoprazole 40 mg daily - Objective Vital Signs: Vital Signs Temperature 97.5 F L 07/13/19 19:59 Pulse Rate 83 07/13/19 19:59 Respiratory Rate 20 07/13/19 09:18 Blood Pressure 98/63 07/13/19 19:59 O2 Sat by Pulse Oximetry (%) 96 07/13/19 21:00 Constitutional: Well Nourished Eyes: Yes: Conjunctiva Clear HENT: Yes: Atraumatic Neck: Yes: Supple Cardiovascular: Yes: Regular Rate and Rhythm Respiratory: Yes: CTA Bilaterally ...Palpate: Yes: Soft, Tenderness (-mild diffuse). No: Firm/Rigid, Guarding, Hepatomegaly, Mass, Pulsatile Mass, Splenomegaly ...Percussion: Yes: Tympanitic Labs: CBC, BMP 07/09/19 08:35 07/09/19 08:35 Problem List - Problems (1) Pancreatic cyst Code(s): K86.2 - CYST OF PANCREAS (2) Abdominal pain Assessment/Plan: multifactorial including SIBO, gastroparesis R> Flagyl 250mg tid Reglan 5mg 30min ac Low fiber lactose free diet Code(s): R10.9 - UNSPECIFIED ABDOMINAL PAIN
[2019-07-14] MEDS: metroNIDAZOLE 250 MG TABLET PO SCH ×2 (07:36→13:13)
[2019-07-14] MEDS: TAMSULOSIN HCL 0.4 MG CAP PO SCH (08:36)
[2019-07-14] MEDS: CLOPIDOGREL BISULFATE 75 MG TABLET (FP) PO SCH (09:36)
[2019-07-14] MEDS: RANOLAZINE E.R. 500 MG TABLET (FP) PO SCH (09:36)
[2019-07-14] MEDS: EZETIMIBE 10 MG TABLET (FP) PO SCH (09:36)
[2019-07-14] MEDS: CARVEDILOL 6.25 MG TABLET (FP) PO SCH (09:36)
[2019-07-14] MEDS: PANTOPRAZOLE 40 MG TABLET PO SCH (09:37)
[2019-07-14] MEDS: POLYETHYLENE GLYCOL 3350 119 GM BTL PO SCH (10:45)
[2019-07-14] MEDS ORDERED: METOCLOPRAMIDE HCL 10 MG TABLET (FP) PO SCH (11:00)
--- NOTE | 2019-07-14 11:58 | PN ---
Progress Note (short form) - Note Progress Note: pt seen/ examined comfortable. all f/u noted Vital Signs Temp 98.1 F 07/14/19 06:00 Pulse 82 07/14/19 06:00 Resp 18 07/14/19 06:00 BP 122/63 07/14/19 06:00 Pulse Ox 96 07/14/19 09:00 Intake & Output 07/13/19 07/13/19 07/14/19 11:59 23:59 11:59 Intake Total 560 Balance 560 Intake: Oral 560 Other: Voiding Method Incontinent Incontinent Incontinent # Unmeasured Voids [place] 2 Void 1 Bowel Movement No # Bowel Movements 1 Body Mass Index (BMI) 24.1 Active Medications Acetaminophen (Tylenol -) 650 mg PO Q4H PRN PRN Reason: PAIN Last Admin: 07/12/19 09:06 Dose: 650 mg Atorvastatin Calcium (Lipitor -) 40 mg PO [facility] Last Admin: 07/13/19 22:06 Dose: 40 mg Carvedilol (Coreg -) 6.25 mg PO BID [facility] Last Admin: 07/14/19 09:36 Dose: 6.25 mg Clopidogrel Bisulfate (Plavix -) 75 mg PO DAILY [facility] Last Admin: 07/14/19 09:36 Dose: 75 mg Ezetimibe (Zetia -) 10 mg PO DAILY [facility] Last Admin: 07/14/19 09:36 Dose: 10 mg Insulin Aspart (Novolog Vial Sliding Scale -) [facility]; [facility] Last Admin: 07/14/19 06:23 Dose: 2 units Insulin Detemir (Levemir Vial) 23 units SQ [facility] Last Admin: 07/13/19 22:05 Dose: 23 units Levothyroxine Sodium (Synthroid -) 125 mcg PO DAILY@0700 [facility] Last Admin: 07/14/19 06:23 Dose: 125 mcg Metoclopramide HCl (Reglan -) 5 mg PO TIDAC [facility] Last Admin: 07/14/19 10:54 Dose: 5 mg Metronidazole (Flagyl -) 250 mg PO TID [facility] Last Admin: 07/14/19 07:36 Dose: 250 mg Pantoprazole Sodium (Protonix -) 40 mg PO DAILY [facility] Last Admin: 07/14/19 09:37 Dose: 40 mg Polyethylene Glycol (Miralax (For Daily Use) -) 17 gm PO DAILY [facility] Last Admin: 07/14/19 10:45 Dose: 17 grams Ranolazine (Ranexa -) 500 mg PO BID [facility] Last Admin: 07/14/19 09:36 Dose: 500 mg Senna (Senna -) 2 tab PO HS [facility] Last Admin: 07/13/19 22:06 Dose: 2 tab Tamsulosin HCl (Flomax -) 0.4 mg PO DAILY@0830 [facility] Last Admin: 07/14/19 08:36 Dose: 0.4 mg CBC, BMP 07/09/19 08:35 07/09/19 08:35 Physical Exam S1 S2 RRR Lungs clear Abd- soft, nT no edema PLAN clinically stable Fall precautions tylenol for back pain GI-->pancreatic cyst on MRI-- will need outpt EUS-- need to schedule appointment with GI as out pt -- oob- chair BGM better stable for dc to STR-- family wishes to change NH awaiting bed from [facility] today d/w case managers also See d/c summary also Problem List - Problems (1) MDRO (multiple drug resistant organisms) resistance Code(s): Z16.35 - RESISTANCE TO MULTIPLE ANTIMICROBIAL DRUGS (2) UTI (urinary tract infection) Code(s): N39.0 - URINARY TRACT INFECTION, SITE NOT SPECIFIED (3) HAROLDO (acute kidney injury) Code(s): N17.9 - ACUTE KIDNEY FAILURE, UNSPECIFIED (4) Acute metabolic encephalopathy Code(s): G93.41 - METABOLIC ENCEPHALOPATHY (5) S/P CABG (coronary artery bypass graft) Code(s): Z95.1 - PRESENCE OF AORTOCORONARY BYPASS GRAFT (6) Type 2 diabetes mellitus Code(s): E11.9 - TYPE 2 DIABETES MELLITUS WITHOUT COMPLICATIONS 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
[2019-07-14 18:16] VITALS: BP 136/71; PULSE 72; TEMP 98
== END 2019-07-14 18:35 | DRG 689 ==
LOC: JER 00:43 → JERBED 07:17 → J6S 07-07 01:18
PROVIDERS: ADMIT Internal Medicine; ATTEND Internal Medicine
DX: N39.0 Urinary tract infection, site not specified (principal); G93.41 Metabolic encephalopathy; N17.9 Acute kidney failure, unspecified; K86.2 Cyst of pancreas; I11.0 Hypertensive heart disease with heart failure; I50.9 Heart failure, unspecified; E11.42 Type 2 diabetes mellitus with diabetic polyneuropathy; E87.5 Hyperkalemia; K86.9 Disease of pancreas, unspecified; I25.10 Atherosclerotic heart disease of native coronary artery without angina pectoris; R33.9 Retention of urine, unspecified; K59.00 Constipation, unspecified; E87.8 Other disorders of electrolyte and fluid balance, not elsewhere classified; Z95.1 Presence of aortocoronary bypass graft; E03.9 Hypothyroidism, unspecified; E78.5 Hyperlipidemia, unspecified; Z79.4 Long term (current) use of insulin
CPT/HCPCS: 36415; 71045-TC-FY; 80053; 81003; 82550; 82962; 83036; 83880; 84484; 85025; 87040; 87086; 93005; 93010; 97116-GP; 97161-GP; 99285-25